=== PATIENT | female | born 1995 | race Caucasian/White ===

== ENCOUNTER 2023-12-13 12:19 | Outpatient (OUT) | payer OTHER, SELFPAY ==
--- NOTE | 2023-12-13 12:23 | US_ITS ---
[address] [address] Patient Name: COLTON VERMA MRN: [id number] date: 1995 Sex: F Assigned Patient Location: [facility] Current Patient Location: [facility] Accession/Order Number: [id number] Exam Date: 12/13/2023 12:25 Report Date: 12/13/2023 13:37 At the request of: WON LESTER Procedure: US OB transvaginal EXAMINATION: US OB transvaginal HISTORY: MISSED MENSES COMPARISON: No relevant comparison available. FINDINGS: GESTATIONAL SAC: Present and normal appearing. YOLK SAC: Present and normal appearing. POLE: Present and normal appearing. CARDIAC: Present. UTERUS: Normal size and appearance. OVARIES: Right: Corpus lutein cyst. Left: Not seen. CERVIX: 4.4 cm in length and closed. CUL-DE-SAC: Normal. OTHER: None. AGE BY LMP: 7 weeks 5 days SINA BY LMP: 07/26/2024 AGE BY US CRL: 7 weeks 0 days SINA BY US CRL: 07/31/2024 US/US OB transvaginal IMPRESSION: 1. Single live intrauterine . Electronically authenticated by: ISIAH ROJAS Date: 12/13/2023 13:37
== END 2023-12-13 12:20 | disposition home or self-care (01) ==
LOC: NOMS 12:20
PROVIDERS: PCP Nurse Practitioner Family; Visit Provider Obstetrics & Gynecology
DX: Z34.91 Encounter for supervision of normal pregnancy, unspecified, first trimester (principal); Z3A.01 Less than 8 weeks gestation of pregnancy; N92.6 Irregular menstruation, unspecified
CPT/HCPCS: 76817

== ENCOUNTER 2023-12-26 12:22 | Outpatient (OUT) | payer OTHER, SELFPAY ==
--- NOTE | 2023-12-26 | US_ITS ---
[address] [address] Patient Name: COLTON VERMA MRN: [id number] date: 1995 Sex: F Assigned Patient Location: [place] Current Patient Location: [place] Accession/Order Number: [id number] Exam Date: 12/26/2023 12:42 Report Date: 12/26/2023 13:45 At the request of: WON LESTER Procedure: US appendix EXAM: US appendix HISTORY: RIGHT PELVIC PAIN COMPARISON: None. TECHNIQUE: Grayscale and color ultrasound FINDINGS: Ultrasound of the right lower quadrant demonstrates normal skin, subcutaneous fat, muscle and intraperitoneal contents. The appendix is not definitively visualized. No ascites. US/US appendix IMPRESSION: Nonvisualization of the appendix Electronically authenticated by: DARLINE ESPITIA Date: 12/26/2023 13:45
--- NOTE | 2023-12-26 12:41 | US_ITS ---
[address] [address] Patient Name: COLTON VERMA MRN: [id number] date: 1995 Sex: F Assigned Patient Location: [place] Current Patient Location: [place] Accession/Order Number: [id number] Exam Date: 12/26/2023 12:42 Report Date: 12/26/2023 13:44 At the request of: WON LESTER Procedure: US OB transvaginal EXAMINATION: US OB transvaginal HISTORY: missed menses N92.6 COMPARISON: 12/13/2023 FINDINGS: Transvaginal images Godoy intrauterine gestation Gestational sac: 3.48 cm, 8 weeks 4 days CRL: 2.44 cm, 9 weeks 1 day Yolk sac: 2.7 mm Heart rate: 182 beats minute Cervix: 3.6 cm in length, closed. The uterus is normal, anteverted The right ovary measures 3.3 x 2.8 x 3.6 cm. Area of anechoic echogenicity likely corpus luteal cyst. The left ovary is normal measuring 1.6 x 1.1 x 2.2 cm Clinical age: 9 weeks 4 days Clinical SINA: 07/26/2024 Ultrasound age: 9 weeks 1 day Ultrasound SINA: 07/29/2024 US/US OB transvaginal IMPRESSION: Viable godoy intrauterine gestation measuring 9 weeks 1 day Electronically authenticated by: DARLINE ESPITIA Date: 12/26/2023 13:44
== END 2023-12-26 12:23 | disposition home or self-care (01) ==
PROVIDERS: PCP Nurse Practitioner Family; Visit Provider Obstetrics & Gynecology
DX: O26.899 Other specified pregnancy related conditions, unspecified trimester (principal); Z3A.09 9 weeks gestation of pregnancy; N92.6 Irregular menstruation, unspecified; R10.9 Unspecified abdominal pain
CPT/HCPCS: 76705; 76817

== ENCOUNTER 2024-01-03 12:21 | Outpatient (OUT) | payer OTHER, SELFPAY ==
--- OUTSIDE RECORDS SUMMARY | 2024-01-03 12:29 | XMS_ITS | CCD ---
Author Organization [facility] Care Team Providers Care Medical Imaging Director Name Role Phone TREVON, DR UPTON Admitting Unavailable MISC, DR DAVENPORT Primary Care Unavailable LACOMBE, DR DARLINE Fitzgerald Consulting Unavailable TREVON, DR UPTON Attending Unavailable TREVON, DR UPTON Consulting Unavailable TREVON, DR UPTON Consulting Unavailable TREVON, DR UPTON Admitting Unavailable TREVON, DR UPTON Attending Unavailable CHEYENNE MOONEY Consulting Unavailable TREVON, DR UPTON Admitting Unavailable TREVON, DR UPTON Attending Unavailable TREVON, DR UPTON Consulting Unavailable TREVON, DR UPTON Admitting Unavailable TREVON, DR UPTON Attending Unavailable TREVON, DR UPTON Consulting Unavailable TREVON, DR UPTON Admitting Unavailable TREVON, DR UPTON Attending Unavailable Lucila Arnett Unavailable Unavailable Primary Care Provider Unavailabl e EARLE CHEN Attending Unavailable LUCILA ARNETT Referring Unavailable LUCILA ARNETT Primary Care Physician KHADRA ARNETT Attending Unava ilable KHADRA ARNETT Admitting Unava ilable YODER, HAKEEM Primary Care Unavailable TREVON, WON Referring Unavailable YODER, HAKEEM Referring Unavailable YODER, HAKEEM Primary Care Unavailable YODER, HAKEEM Primary Care Unavailable TREVON, WON Referring Unavailable YODER, HAKEEM Primary Care Unavailable TREVON, WON Referring Unavailable YODER, HAKEEM Primary Care Unavailable TREVON, WON Referring Unavailable YODER, HAKEEM Primary Care Unavailable TREVON, WON Referring Unavailable YODER, HAKEEM Primary Care Unavailable YEIMY LESTERY Referring Unavailable WON LESTER Attending Unavailable Allergies Allergy Classification Reported Allergen(s) Allergy Type Date of Onset Reaction(s) Facility Opioid Agonists (1 source) traMADol Drug Allergy 0 [facility] Repository (5 sources) traMADol Drug Allergy 4 Unknown, Unknown Reaction [facility] (4 sources) Lavender Oil Drug allergy Unknown [employer] Other (1 source) lavender (Lavandula angustifolia) Allergy to substance 4 Unknown Reaction [facility] Medications Current Medications Medication Drug Class(es) Dates Sig (Normalized) Sig (Original) brompheniramine maleate 0.4 mg/ml / dextromethorphan hydrobromide 2 mg/ml / pseudoephedrine hydrochloride 6 mg/ml oral solution (1 source) alpha-Adrenergic Agonist, Uncompetitive U-xdzwxp-I-aspartate Receptor Antagonist, Sigma-1 Agonist Start: 09-30-2017 take 5 mL by mouth four times daily Bromfed DM oral syrup 5 mL, Oral, QID for cold symptoms, 200 mL, Refill(s) 0 Start Date: 09/30/17 Status: Ordered clonazePAM 0.5 mg oral tablet (6 sources) Benzodiazepine Start: 10-16-2023 take 1 tablet by mouth in the morning, then take 2 tablets by mouth twice daily at bedtime Clonazepam Active 0.5 MG PO .COMPLEX October 16, 2023 1:00am 1 tablet in the am and 2 tablets at bedtime Orally twice daily Start: 05-08-2023 take 1 tablet by bailey th in the morning, then take 2 tablets by mouth twice daily at bedtime clonazePAM 0.5 MG 1 tablet in the am and 2 tablets at bedtime Orally twice daily for 30 days Aug, Active ibuprofen 600 mg oral tablet (1 source) Nonsteroidal Anti-inflammatory Drug Start: 01-27-2019 take 1 tablet by mouth every eight hours ibuprofen 600 mg Tab 600 mg = 1 tab(s), Oral, q8hr, # 20 tab(s), Refills(s) 0 Start Date: 01/27/19 Status: Ordered meloxicam 7.5 mg oral tablet (2 sources) Nonsteroidal Anti-inflammatory Drug Start: 10-24-2023 End: 10-26-2023 take 7.5 mg by mouth once daily Meloxicam Active 7.5 MG PO Daily October 26, 2023 3:24pm methocarbamol 750 mg oral tablet (1 source) Muscle Relaxant Start: 01-27-2019 take 1 tablet by mouth every six hours Robaxin-750 oral tablet 750 mg = 1 tab(s), Oral, q6hr, # 12 tab(s), Refills(s) 0 Start Date: 01/27/19 Status: Ordered ondansetron 4 mg disintegrating oral tablet (1 source) Serotonin-3 Receptor Antagonist Start: 11-02-2023 take 1 tablet by mouth every eight hours as needed Ondansetron 4 MG Tab Dispersible tablet Take 1 tablet by mouth every 8 hours as needed for Nausea / Vomiting. 18 tablet 1 11/02/2023 Active tiZANidine 4 mg oral tablet (6 sources) Central alpha-2 Adrenergic Agonist Start: 08-03-2023 take 4 mg by mouth three times daily Tizanidine Active 4 MG PO Three times daily October 16, 2023 1:00am Start: 08-03-2023 take 1 tablet by bailey th every eight hours tiZANidine HCl 2 MG 1 tablet as needed Orally Three times a day for 30 days Jul, Active Zofran ODT 4 mg Tab-Dis (1 source) Start: 09-21-2018 take 1 tablet by mouth every six hours Zofran ODT 4 mg Tab-Dis 4 mg = 1 tab(s), Oral, q6hr, # 10 tab(s), Refills(s) 0, Pharmacy: [facility] 1984 Start Date: 09/21/18 Status: Ordered Completed/Discontinued Medications Medication Drug Class(es) Dates Sig (Normalized) Sig (Original) {21 (Desogestrel 0.15 MG / Ethinyl Estradiol 0.03 MG Oral Tablet) / 7 (Inert Ingredients 1 MG Oral Tablet) } Pack [Enskyce 28 Day] (1 source) Progestin, Estrogen Start: 09-30-2017 take 1 tablet by mouth once daily Enskyce 0.15 mg-0.03 mg oral tablet 1 tab(s), Oral, Daily, Refill(s) 0 Start Date: 09/30/17 Status: Ordered Problems Active Problems Problem Classification Problem Date Documented Date Episodic/Chronic Abdominal pain (7 sources) Pelvic and perineal pain; Translations: [Pain in pelvis] Onset: 04-30-2020 Episodic Anxiety disorders (20 sources) Generalized anxiety disorder; Translations: [Generalized anxiety disorder] Chronic Asthma (1 source) Asthma 10-31-2013 Chronic Endometriosis (12 sources) Endometriosis (clinical); Translations: [Endometriosis, unspecified] Onset: 11-02-2023 Chronic Esophageal disorders (1 source) Gastro-esophageal reflux disease without esophagitis; Translations: [GERD WITHOUT ESOPHAGITIS] Onset: 08-02-2020 Chronic Genitourinary symptoms and ill-defined conditions (1 source) Bladder pain; Translations: [Other symptoms and signs involving the genitourinary system] 11-02-2023 Episodic Headache; including migraine (7 sources) Migraine; Translations: [Migraine, unspecified, not intractable, without status migrainosus] Chronic Hemorrhage during ; abruptio placenta; placenta previa (1 source) Placental abruption 09-30-2017 Episodic Intracranial injury (4 sources) Personal history of traumatic brain injury; Translations: [Traumatic brain injury] Episodic Menstrual disorders (2 sources) Dysmenorrhea; Translations: [Dysmenorrhea, unspecified] Onset: 12-06-2023 11-02-2023 Chronic Mood disorders (3 sources) Depressive disorder; Translations: [Depression] 10-16-2023 Chronic Nausea and vomiting (1 source) Nausea and vomiting; Translations: [Nausea with vomiting, unspecified] 11-02-2023 Episodic Other connective tissue disease (1 source) Myalgia of pelvic floor; Translations: [Myalgia, other site] 11-02-2023 Episodic Other female genital disorders (4 sources) Unspecified dyspareunia; Translations: [UNSPECIFIED DYSPAREUNIA] Onset: 06-25-2020 Chronic Other female genital disorders (1 source) Pain in female genitalia on intercourse; Translations: [Unspecified dyspareunia] 11-02-2023 Chronic Residual codes; unclassified (1 source) Personal history of other complications of , childbirth and the puerperium; Translations: [Personal history of other complications of , childbirth and the puerperium] Onset: 12-06-2023 Episodic Unclassified (1 source) Details of family - finding 05-29-2014 Unclassified (1 source) labor 06-08-2014 Past or Other Problems Problem Classification Problem Date Documented Date Episodic/Chronic Deficiency and other anemia (1 source) Anemia, unspecified; Translations: [ANEMIA UNSPECIFIED] Onset: 08-02-2020 Episodic Immunizations and screening for infectious disease (1 source) Encounter for screening for human papillomavirus (HPV); Translations: [ENC SCREENING HUMAN PAPILLOMAVIRUS] Onset: 05-05-2020 Episodic Other female genital disorders (1 source) Unspecified hypertrophy of vulva; Translations: [UNSPECIFIED HYPERTROPHY OF VULVA] Onset: 08-02-2020 Episodic Other screening for suspected conditions (not mental disorders or infectious disease) (4 sources) Encounter for screening for malignant neoplasm of cervix; Translations: [ENC SCREENING MALIG NEOPLASM CERV] Onset: 04-29-2020 Episodic Residual codes; unclassified (4 sources) Other general symptoms and signs; Translations: [OTHER GENERAL SYMPTOMS AND SIGNS] Onset: 07-12-2020 Episodic Unclassified (1 source) Onset: 08-20-2013 Resolved: 06-08-2014 02-25-2015 Results Test Name Value Interpretation Reference Range Facility HCG.beta subunit Qnon 2023 hCG Quant [id number] mIU/mL Normal [facility] Comment on above: Order Comment: Pregn phill Reference Ranges Negative = < 5 mIU/ml Positive = > OR EQUAL TO 5 mIU/ml The concentration of HCG rises rapidly during early . A maximum level of 5,000 to 200,000 mIU/ML is reached at 6-8 weeks. This is followed by a slow decline to levels of 1,000 to 50,000 mIU/ML during the third trimester. This test should be used only for the diagnosis and monitoring of . It should not be used for monitoring of neoplastic conditions including gestational trophoblastic disease (partial mole, complete hydatidiform mole, choriocarcinoma) or other tumors. For monitoring of neoplastic disease a Beta subunit HCG test should be ordered. Results obtained using different immunoassay methods are not interchangeable. Patient results should not be trended using values obtained with a different immunoassay method. Performed By: #### 2 1198-7 #### [facility] ([facility]) LAB [address] [place] [address] HCG.beta subunit Qnon 2023 hCG Quant 94570 mIU/mL Normal [facility] Comment on above: Order Comment: Pregn phill Reference Ranges Negative = < 5 mIU/ml Positive = > OR EQUAL TO 5 mIU/ml The concentration of HCG rises rapidly during early . A maximum level of 5,000 to 200,000 mIU/ML is reached at 6-8 weeks. This is followed by a slow decline to levels of 1,000 to 50,000 mIU/ML during the third trimester. This test should be used only for the diagnosis and monitoring of . It should not be used for monitoring of neoplastic conditions including gestational trophoblastic disease (partial mole, complete hydatidiform mole, choriocarcinoma) or other tumors. For monitoring of neoplastic disease a Beta subunit HCG test should be ordered. Results obtained using different immunoassay methods are not interchangeable. Patient results should not be trended using values obtained with a different immunoassay method. Performed By: #### 2 1198-7 #### [facility] ([facility]) [facility] [address] [place] [address] HCG.beta subunit Qnon 2023 hCG Quant 75748 mIU/mL Normal [facility] Comment on above: Order Comment: Pregn phill Reference Ranges Negative = < 5 mIU/ml Positive = > OR EQUAL TO 5 mIU/ml The concentration of HCG rises rapidly during early . A maximum level of 5,000 to 200,000 mIU/ML is reached at 6-8 weeks. This is followed by a slow decline to levels of 1,000 to 50,000 mIU/ML during the third trimester. This test should be used only for the diagnosis and monitoring of . It should not be used for monitoring of neoplastic conditions including gestational trophoblastic disease (partial mole, complete hydatidiform mole, choriocarcinoma) or other tumors. For monitoring of neoplastic disease a Beta subunit HCG test should be ordered. Results obtained using different immunoassay methods are not interchangeable. Patient results should not be trended using values obtained with a different immunoassay method. Performed By: #### 2 1198-7 #### [facility] ([facility]) [facility] [address] [place] [address] HCG.beta subunit Qnon 2023 hCG Quant 64627 mIU/mL Normal [facility] Comment on above: Order Comment: Pregn phill Reference Ranges Negative = < 5 mIU/ml Positive = > OR EQUAL TO 5 mIU/ml The concentration of HCG rises rapidly during early . A maximum level of 5,000 to 200,000 mIU/ML is reached at 6-8 weeks. This is followed by a slow decline to levels of 1,000 to 50,000 mIU/ML during the third trimester. This test should be used only for the diagnosis and monitoring of . It should not be used for monitoring of neoplastic conditions including gestational trophoblastic disease (partial mole, complete hydatidiform mole, choriocarcinoma) or other tumors. For monitoring of neoplastic disease a Beta subunit HCG test should be ordered. Results obtained using different immunoassay methods are not interchangeable. Patient results should not be trended using values obtained with a different immunoassay method. Performed By: #### 2 1198-7 #### [facility] ([facility]) [facility] [address] [place] [address] HCG.beta subunit Qnon 2023 hCG Quant 2709 mIU/mL Normal [facility] Comment on above: Order Comment: Pregn phill Reference Ranges Negative = < 5 mIU/ml Positive = > OR EQUAL TO 5 mIU/ml The concentration of HCG rises rapidly during early . A maximum level of 5,000 to 200,000 mIU/ML is reached at 6-8 weeks. This is followed by a slow decline to levels of 1,000 to 50,000 mIU/ML during the third trimester. This test should be used only for the diagnosis and monitoring of . It should not be used for monitoring of neoplastic conditions including gestational trophoblastic disease (partial mole, complete hydatidiform mole, choriocarcinoma) or other tumors. For monitoring of neoplastic disease a Beta subunit HCG test should be ordered. Results obtained using different immunoassay methods are not interchangeable. Patient results should not be trended using values obtained with a different immunoassay method. Performed By: #### 2 1198-7 #### [facility] ([facility]) [facility] [address] [place] [address] HCG.beta subunit Qnon 2023 hCG Quant 776 mIU/mL Normal [facility] Comment on above: Order Comment: Pregn phill Reference Ranges Negative = < 5 mIU/ml Positive = > OR EQUAL TO 5 mIU/ml The concentration of HCG rises rapidly during early . A maximum level of 5,000 to 200,000 mIU/ML is reached at 6-8 weeks. This is followed by a slow decline to levels of 1,000 to 50,000 mIU/ML during the third trimester. This test should be used only for the diagnosis and monitoring of . It should not be used for monitoring of neoplastic conditions including gestational trophoblastic disease (partial mole, complete hydatidiform mole, choriocarcinoma) or other tumors. For monitoring of neoplastic disease a Beta subunit HCG test should be ordered. Results obtained using different immunoassay methods are not interchangeable. Patient results should not be trended using values obtained with a different immunoassay method. Performed By: #### 2 1198-7 #### [facility] ([facility]) [facility] [address] [place] [address] HCG.beta subunit Qnon 2023 hCG Quant 250 mIU/mL Normal [facility] Comment on above: Order Comment: Pregn phill Reference Ranges Negative = < 5 mIU/ml Positive = > OR EQUAL TO 5 mIU/ml The concentration of HCG rises rapidly during early . A maximum level of 5,000 to 200,000 mIU/ML is reached at 6-8 weeks. This is followed by a slow decline to levels of 1,000 to 50,000 mIU/ML during the third trimester. This test should be used only for the diagnosis and monitoring of . It should not be used for monitoring of neoplastic conditions including gestational trophoblastic disease (partial mole, complete hydatidiform mole, choriocarcinoma) or other tumors. For monitoring of neoplastic disease a Beta subunit HCG test should be ordered. Results obtained using different immunoassay methods are not interchangeable. Patient results should not be trended using values obtained with a different immunoassay method. Performed By: #### 2 1198-7 #### [facility] [address] [place] [address] .Thyroglobulin by IMAon -0 Thyroglobulin [Mass/Vol] 5.0 ng/mL Invalid Interpretation Code 1.5-38.5 [facility] Comment on above: Result Comment: Acco rding to the National Academy of Clinical [employer]ochemistry, the reference interval for Thyroglobulin (TG) should be related to euthyroid patients and not for patients who underwent thyroidectomy. TG reference intervals for these patients depend on the residual mass of the thyroid tissue left after surgery. Establishing a post-operative baseline is recommended. The assay limit of quantitation is 0.1 ng/mL Thyroglobulin measured by John [employer] Immunometric Assay Performed at: [facility] [id number] [place], [place] [id number] PhD Johanny Nieto Performed By: #### 2 [id number], [id number], [id number], [id number], [id number], [id number], [id number] #### [facility] [address] [place] [address] T3 Freeon 11-20-2023 Free T3 [Mass/Vol] 3.2 pg/mL Invalid Interpretation Code 2.0-4.4 [facility] Comment on above: Result Comment: Perf ormed at: [address] [id number] PhD Johanny Nieto Performed By: #### 2 982924, [id number], [id number], [id number], [id number], [id number], [id number] #### [facility] [address] [place] [address] TgAb+Thyroglobulinon 024 Thyroglobulin Ab Qn [IU]/mL Invalid Interpretation Code 0.0-0.9 [facility] Comment on above: Result Comment: Thyr oglobulin Antibody measured by [employer] It should be noted that the presence of thyroglobulin antibodies may not be pathogenic nor diagnostic, especially at very low levels. The assay astronautical engineer has found that four percent of individuals without evidence of thyroid disease or autoimmunity will have positive TgAb levels up to 4 IU/mL. Performed at: [facility] [address] [place] [address] [id number] PhD Johanny Nieto Performed By: #### 2 117835, [id number], [id number], [id number], [id number], [id number], [id number] #### [facility] [address] [place] [address] Thyroid Perox.tpo Abon 11-19 TPO Ab Qn [IU]/mL Invalid Interpretation Code 0-34 [facility] Comment on above: Result Comment: Perf ormed at: [facility] [address] [id number] PhD Johanny Nieto Performed By: #### 2 589964, [id number], [id number], [id number], [id number], [id number], [id number] #### [facility] [address] [place] [address] BhCG Quanton 11-19-2023 HCG.beta subunit Qn 86 m[IU]/mL High 1-[address] [facility] Comment on above: Result Comment: 'F N ON < 1 - 3' ' 0.2 - 1 WEEK = 5 TO 50' ' 1 - 2 WEEKS = 50 - 500' ' 2 - 3 WEEKS = 100 - 5000' ' 3 - 4 WEEKS = 500 - 35740' ' 4 - 5 WEEKS = 1000 - 98119' ' 5 - 6 WEEKS = 49403 - 490377' ' 6 - 8 WEEKS = 95717 - 904503' ' 8 - 12 WEEKS = 62843 - 223846' Performed By: #### 2 [id number] #### [facility] [address] [place] [address] CHEMISTRYOrdered By: SYSTEM SYSTEM on 11-19-2023 HCG.beta subunit Qn 86 m[IU]/mL High 1 - 3 mIU/mL Re misol Chem Comment on above: Result Comment: 'F N ON < 1 - 3' ' 0.2 - 1 WEEK = 5 TO 50' ' 1 - 2 WEEKS = 50 - 500' ' 2 - 3 WEEKS = 100 - 5000' ' 3 - 4 WEEKS = 500 - 94328' ' 4 - 5 WEEKS = 1000 - 50322' ' 5 - 6 WEEKS = 99669 - 583890' ' 6 - 8 WEEKS = 79406 - 525236' ' 8 - 12 WEEKS = 72543 - 525237' Iron [Mass/Vol] 161 ug/dL High 35 - 153 mcg/dL Remisol Chem Iron binding capacity [Mass/Vol] 316 ug/dL Normal 250 - 400 mcg/dL Remisol Chem Transferrin [Mass/Vol] 226 mg/dL Normal 200 - 370 mg/dL Remisol Chem TSH Qn 1.53 m[IU]/L Normal 0.34 - 5.60 mcIU/mL Remisol Chem Consent for Treatmenton Consent for Treatment [id number] .[id number] Normal [facility] Ironon 11-19-2023 Iron [Mass/Vol] 161 microgram/dL High 35-153 [facility] Comment on above: Performed By: #### 2 174245, [id number], [id number], [id number], [id number], [id number], [id number] #### [facility] [address] [place] [address] Physician Orderon 11-19-2023 Physician Order [id number] .[id number] Normal [facility] TIBC Calculatedon 11-19-2023 Iron binding capacity [Mass/Vol] 316 microgram/dL Normal 250-400 [facility] Comment on above: Performed By: #### 2 761539, [id number], [id number], 1334435, [id number], [id number], [id number] #### [facility] [address] [place] [address] Transferrin [Mass/Vol] 226 mg/dL Normal 200-370 [facility] Comment on above: Performed By: #### 2 805505, [id number], [id number], 9434118, [id number], [id number], [id number] #### [facility] [address] [place] [address] TSH With T4fr Reflexon 11-18 TSH Qn 1.53 m[IU]/L Normal 0.34-5.60 [facility] Comment on above: Performed By: #### 2 853088, [id number], 11330676, 9732720, [id number], [id number], [id number] #### [facility] [address] [facility] [place] [address] TSHon 07-12-2020 TSH 0.756 uIU/mL Normal 0.470-4.680 [facility] Comment on above: Performed By: #### T SH #### [facility] [address] [id number] Jayne Noris TSH RANGE SEE BELOW Normal [facility] Comment on above: Result Comment: <0.3 4 UIU/ml HYPERTHYROID 0.34-5.60 UIU/ml EUTHYROID >5.60 UIU/ml HYPOTHYROID Performed By: #### T SH #### [facility] [address] [place], [place] [address] Jayne Noris CBC AUTO DIFFon 06-25-2020 BASO # 0.1 103/ul Normal 0.0-0.1 [facility] Comment on above: Performed By: #### C BC #### [facility] [address] [place], [place] [address] Jayne Noris Basophils/100 WBC (Bld) 1.2 % Normal 0.2-2.0 [facility] Comment on above: Performed By: #### C BC #### [facility] [address] [place], [place] [address] Jayne Noris EO # 0.2 103/ul Normal 0.0-0.7 [facility] Comment on above: Performed By: #### C BC #### [facility] [address] [place], [place] [address] Jayne Noris Eosinophils/100 WBC (Bld) 2.6 % Normal 0.9-7.0 [facility] Comment on above: Performed By: #### C BC #### [facility] [address] [place], [place] [address] Jayne Noris Erythrocyte distribution width (RBC) [Ratio] 12.0 % Normal 11.0-15.0 [facility] Comment on above: Performed By: #### C BC #### [facility] [address] [place], [place] [address] Jayne Noris Hematocrit (Bld) [Volume fraction] 40.7 % Normal 36.0-48.0 [facility] Comment on above: Performed By: #### C BC #### [facility] [address] [id number] Jayne Noris Hemoglobin (Bld) [Mass/Vol] 13.6 g/dL Normal 12.0-16.0 [facility] Comment on above: Performed By: #### C BC #### [facility] [address] [id number] Jayne Noris IG # 0.01 10e3/ul Normal 0.00-0.03 [facility] Comment on above: Performed By: #### C BC #### [facility] [address] [place] [address] Jayne Noris IG % 0.2 % Normal 0.0-0.5 [facility] Comment on above: Performed By: #### C BC #### [facility] [address] [place] [address] Jayne Noris LYMPH # 1.9 103/ul Normal 1.2-3.8 [facility] Comment on above: Performed By: #### C BC #### [facility] [address] [place] [address] Jayne Noris Lymphocytes/100 WBC (Bld) 32.5 % Normal 20.5-60.0 [facility] Comment on above: Performed By: #### C BC #### [facility] [address] [place] [address] Jayne Noris MANUAL DIFF REQ NO Normal [facility] Comment on above: Performed By: #### C BC #### [facility] [address] [place], [place] [id number] Jayne Noris MCH (RBC) [Entitic mass] 31.3 pg Normal 26.7-34.0 [facility] Comment on above: Performed By: #### C BC #### [facility] [address] [place], [place] [id number] Jayne Noris MCHC (RBC) [Mass/Vol] 33.4 g/dL Normal 29.9-35.2 [facility] Comment on above: Performed By: #### C BC #### [facility] [address] [id number] Jaynejeremías Cruzen MCV (RBC) [Entitic vol] 93.6 fL Normal 81.0-99.0 [facility] Comment on above: Performed By: #### C BC #### [facility] [address] [id number] Jaynejeremías Cruzen MONO # 0.6 103/ul Normal 0.3-0.8 [facility] Comment on above: Performed By: #### C BC #### [facility] [address] [place], [place] [id number] Jayne Noris Monocytes/100 WBC (Bld) 10.4 % Normal 1.7-12.0 [facility] Comment on above: Performed By: #### C BC #### [facility] [address] [place] [address] Jayne Noris NEUT # 3.1 103/ul Normal 1.4-6.5 [facility] Comment on above: Performed By: #### C BC #### [facility] [address] [place], [place] [id number] Jayne Hamm Neutrophils/100 WBC (Bld) 53.1 % Normal 43.0-75.0 [facility] Comment on above: Performed By: #### C BC #### [facility] [address] [place], [place] [id number] Jaynejeremías Hamm Platelet mean volume (Bld) [Entitic vol] 8.9 fL Critically low 9.5-13.5 [facility] Comment on above: Performed By: #### C BC #### [facility] [address] [place], [place] [address] Jayne Noris PLT 265 103/ul Normal 150-450 [facility] Comment on above: Performed By: #### C BC #### [facility] [address] [place], [place] [address] Jayne Noris RBC 4.35 106/ul Normal 4.20-5.40 [facility] Comment on above: Performed By: #### C BC #### [facility] [address] [place], [place] [address] Jayne Noris WBC 5.8 103/ul Normal 4.0-11.0 [facility] Comment on above: Performed By: #### C BC #### [facility] [address] [place] [address] Jayne Hamm PREG QUANT HCGon 06-25-2020 HCG QUANT 1.00 mIU/mL Normal [facility] Comment on above: Performed By: #### P REGQNT #### [facility] [address] [place] [address] Jayne Hamm HCG RANGE SEE BELOW [facility] Comment on above: Result Comment: 5-50 0-1 WEEK 40-300 1-2 WEEKS 100-1,000 2-3 WEEKS 500-6,000 3-4 WEEKS 5,000-200,000 1-2 MONTHS 10,000-100,000 2-3 MONTHS 3,000-50,000 2ND TRIMESTER 1,000-50,000 3RD TRIMESTER Performed By: #### P REGQNT #### [facility] [address] [place] [address] Jayne Hamm PAP ACOG PANEL 2: 21 to 29on 05-06-2020 . . Normal [facility] Comment on above: Performed By: #### 4 [id number] #### [facility] [address] [place] [address] aJyne Hamm Age Gdln ACOG Testing - [facility] Comment on above: Performed By: #### 4 [id number] #### [facility] [address] [place] [address] Jayne Hamm DIAGNOSIS: Comment Normal [facility] Comment on above: Result Comment: NEGA TIVE FOR INTRAEPITHELIAL LESION OR MALIGNANCY. Performed By: #### [id number] #### [facility] [address] [place] [address] Jayne Hamm Methodology: Comment Normal [facility] Comment on above: Result Comment: This liquid based SurePath(R) pap test was screened with the assistance of an image guided system. Performed By: #### [id number] #### [facility] [address] [place] [address] Jayne Hamm Note: Comment Normal [facility] Comment on above: Result Comment: The Pap smear is a screening test designed to aid in the detection of premalignant and malignant conditions of the uterine cervix. It is not a diagnostic procedure and should not be used as the sole means of detecting cervical cancer. Both false-positive and false-negative reports do occur. . Performed By: #### 4 [id number] #### [facility] [address] [place] [address] Jayne Cruzen Performed by: Comment Normal [facility] Comment on above: Result Comment: Suman Rdz, Principal Examiner (ASCP) Performed By: #### 4 [id number] #### [facility] [address] [place] [address] [facility] Comment Normal [facility] Comment on above: Result Comment: The HPV DNA reflex criteria were not met with this specimen result therefore, no HPV testing was performed. . Performed By: #### [id number] #### [facility] [address] [place] [address] Noris Specimen adequacy: Comment Normal [facility] Comment on above: Result Comment: Sati sfactory for evaluation. Endocervical and/or squamous metaplastic cells (endocervical component) are present. Performed By: #### 4 [id number] #### [facility] [address] [place] [address] Jayne Cruzen US PELVIS AND TRANSVAGon US PELVIS AND TRANSVAG EXAMINATION: US PELVIS AND TRANSVAG HISTORY: Pelvic and perineal pain COMPARISON: No relevant comparison available. FINDINGS: Transabdominal and transvaginal images The uterus is retroverted. 8.6 x 5.9 x 5.4 cm. No focal myometrial mass. The endometrium measures 4.5 mm, normal. The right ovary is normal in size, contour and echotexture measuring 2.7 x 3.0 x 3.5 cm. Normal follicles. Identified in the right ovary is an area of anechoic echogenicity measuring 2.0 x 2.2 x 2.0 cm, a simple cyst is favored. The left ovary measures 3.9 x 2.1 x 1.3 cm. Normal follicles. Multiple dilated vessels are identified bilaterally IMPRESSION: Bilaterally dilated vessels, consider pelvic vascular congestion Electronically authenticated by: DARLINE ESPITIA Date: 2020-04-30 14:54 Normal [facility] Vital Signs Date Time Vital Sign Value Performing Clinician Facility 11-02-2023 14:27-0400 Body height 180.3 cm Earle Chen MD Work Phone: [facility] 11-02-2023 14:27-0400 Body mass index (BMI) [Ratio] 20.04 kg/m2 Earle Chen MD Work Phone: [facility] 11-02-2023 14:27-040 Body weight 65.18 kg Earle Chen MD Work Phone: [facility] 11-02-2023 14:27-0400 Diastolic blood pressure 80 mm[Hg] Earle Chen MD Work Phone: [facility] 11-02-2023 14:27-0400 Systolic blood pressure 110 mm[Hg] Earle Chen MD Work Phone: [facility] 09-14-2023 11:30-0500 Body height 180.34 cm Lucila Arnett Other [facility] 09-14-2023 11:30-0500 Body mass index (BMI) [Ratio] 20.92 kg/m2 Lucila Arnett Other [facility] [facility] Other 09-14-2023 11:30-0500 Body weight 68.04 kg Lucila Arnett Other [facility] Other 09-14-2023 11:30-0500 Body weight 68.03 kg [facility] 09-14-2023 11:30-0500 Diastolic blood pressure 68 mm[Hg] Lucila Arnett Other [facility] 09-14-2023 11:30-0500 Respiratory rate 16 /min Lucila Arnett Other [employer] Other 09-14-2023 11:30-0500 SaO2% (BldA) [Mass fraction] 100 % Lucila Arnett Other [employer] Other 09-14-2023 11:30-0500 Systolic blood pressure 110 mm[Hg] Lucila Arnett Other [facility] 08-03-2023 10:00-0500 Body height 180.34 cm Lucila Arnett Other [employer] Other 08-03-2023 10:00-0500 Body mass index (BMI) [Ratio] 20.78 kg/m2 Lucila Arnett Other [employer] Other 08-03-2023 10:00-0500 Body weight 67.59 kg Lucila Arnett Other [employer] Other 08-03-2023 10:00-0500 Diastolic blood pressure 66 mm[Hg] Lucila Arnett Other [employer] Other 08-03-2023 10:00-0500 SaO2% (BldA) [Mass fraction] 98 % Lucila Arnett Other [employer] Other 08-03-2023 10:00-0500 Systolic blood pressure 100 mm[Hg] Lucila Arnett Other [employer] Other Encounters Encounter Date Encounter Type Care Provider Facility Start: 12-26-2023 End: 12-26-2023 ambulatory WON LESTER Not Available Start: 12-13-2023 End: 12-13-2023 ambulatory WON LESTER Not Available Start: 12-10-2023 End: 12-11-2023 ambulatory HAKEEM YODER [facility] Start: 12-06-2023 End: 12-07-2023 ambulatory HAKEEM YODER [facility] Start: 12-03-2023 End: 12-04-2023 ambulatory HAKEEM YODER [facility] Start: 11-29-2023 End: 11-30-2023 ambulatory HAKEEM YODER [facility] Start: 11-26-2023 End: 11-27-2023 ambulatory HAKEEM YODER [facility] Start: 11-23-2023 End: 11-24-2023 ambulatory HAKEEM YODER [facility] Start: 11-21-2023 End: 11-22-2023 ambulatory HAKEEM YODER [facility] Start: 11-19-2023 End: 11-20-2023 ambulatory [employer] LUCILA ARNETT [facility] Start: 11-19-2023 End: 11-19-2023 Patient encounter procedure LUCILA ARNETT [facility] Start: 11-14-2023 End: 11-14-2023 ambulatory [facility] Work Phone: Start: 11-14-2023 End: 11-14-2023 Patient encounter procedure [facility] Work Phone: Start: 11-02-2023 ambulatory EARLE CHEN Facility:[facility] Start: 11-02-2023 End: 11-02-2023 Office outpatient new 60 minutes Earle Chen MD Work Phone: [facility] [place] Comment on above: Endometriosis (Prima ry Dx); Pelvic pain; Myalgia of pelvic floor; Dysmenorrhea; Dyspareunia in female; Nausea and vomiting, unspecified vomiting type; Bladder pain; Anxiety Start: 10-17-2023 End: 10-17-2023 Patient encounter procedure [facility] Work Phone: Start: 09-14-2023 End: 09-14-2023 ambulatory Lucila Arnett Other [employer] Other Start: 09-14-2023 Office outpatient vi sit 25 minutes Lucila Arnett [facility] Start: 09-14-2023 End: 09-14-2023 Patient encounter procedure [facility] Start: 08-09-2023 End: 08-09-2023 ambulatory Lucila Arnett Other [employer] Other Start: 08-09-2023 Telephone encounter Lucila Dan her [facility] Start: 08-03-2023 End: 08-03-2023 ambulatory Lucila Arnett Other [employer] Other Start: 08-03-2023 Office outpatient ne w 30 minutes Luicla Arnett [facility] Start: 08-03-2023 Telephone encounter Lucila Dan her [employer] Start: 07-12-2020 End: 07-13-[address] WON LESTER Facility:[facility] Start: 06-25-2020 End: 06-25-[address] WON LESTER Facility:[facility] Start: 04-30-2020 End: 05-01-[address] WON LESTER Facility:[facility] Start: 04-29-2020 End: 04-29-[address] WON LESTER Facility:[facility] Procedures Date Procedure Procedure Detail Performing Clinician Start: 08-20-2004 Tooth extraction MADI ARNETT uterine ablation LUCILA BAH Plan of Treatment Date Care Activity Detail Author Start: 11-02-2023 End: 11-01-2024 MR Pelvis WO and W contrast IV MRI PELVIS WITH AND WITHOUT CONTRAST Imaging Routine Endometriosis Pelvic pain Expected: 11/02/2023, Expires: 11/01/2024 [facility] Comment on above: Expected: 11/02/2023 , Expires: 11/01/2024 Start: 10-17-2023 Patient referral [facility] Work Phone: Start: 04-20-2023 COVID-19 VACCINE ( season) COVID-19 VACCINE ( season) [facility] Start: 04-20-2023 Influenza vaccination INFLUENZA VACC INE (#1) [facility] Start: 2017 Screening for malign ant neoplasm of cervix CERVICAL CANCER SCREENING DISCUSSION [facility] Start: 11-08-2015 Hepatitis B vaccination HEP B VACCINE (1 of 3 - 19+ 3-dose series) [facility] Start: 11-08-2015 Third diphtheria, te tanus and acellular pertussis (DTaP) vaccination TDAP (ADULT) [facility] Start: 2012 Screening for Chlamy david trachomatis CHLAMYDIA SCREEN [facility] Start: 11-08-2011 HIV screening HIV SCREENING DISCUSSION [facility] Start: 11-08-2011 Vaccination for kale n papillomavirus HPV VACCINE ADOL (1 - 3-dose series) [facility] Start: 1996 Hepatitis C screening HEPATITI S C VIRUS SCREENING [facility] Start: 1996 Screening for Chlamy david trachomatis GONORRHEA SCREEN [facility] Start: 1996 Tetanus vaccination TETANUS [facility] Patient referral [facility] Work Phone: Payers Date Payer Category Payer [employer] [id number] 2023 [employer] [facility] [id number] 2023-Present [address] [place] [address] [id number] 2023 [employer] others) [id number] 1996 Unknown [id number] 2.16.840.1.389022.3.579.2. 593 1996 Unknown [id number] 2.16.840.1.505536.3.579.2. 593 1996 Unknown [id number] 2.16.840.1.112152.3.579.2. 593 1996 Unknown [id number] 2.16.840.1.131325.3.579.2. 593 1996 Unknown [id number] 2.16.840.1.859230.3.579.2. 593 1996 Unknown [id number] 2.16.840.1.613728.3.579.2. 594 1996 Unknown [id number] 2.16.840.1.798399.3.579.2. 727 1996 Unknown [id number] 2.16.840.1.981548.3.579.2. 1143 1996 Unknown [id number] 2.16.840.1.342264.3.579.2. 1143 1996 Unknown [id number] 2.16.840.1.340101.3.579.2. 1143 1996 Unknown [id number] 2.16.840.1.361133.3.579.2. 1143 1996 Unknown [id number] 2.16.840.1.388478.3.579.2. 1143 1996 Unknown [id number] 2.16.840.1.777371.3.579.2. 1143 1996 Unknown [id number] 2.16.840.1.323103.3.579.2. 1143 1996 Unknown [id number] 2.16.840.1.998179.3.579.2. 1259 1996 Unknown [id number] 2.16.840.1.179187.3.579.2. 1259 1959 [employer] others) [id number] 1959 [employer] others) [id number] [employer] others) [id number] Social History Date Type Detail Facility Start: 11-02-2023 Sex Assigned At F [facility] Start: 09-30-2017 End: 11-02-2023 Tobacco smoking status NHIS Never smoked tobacco [facility] Start: 11-02-2023 Tobacco use and exposure Smokeless tobacco non-user [facility] Start: 11-02-2023 Alcoholic beverage intake Lifetime non-drinker (finding) [facility] Start: 11-02-2023 History of Social function [facility] Start: 1996 Sex assigned at Not on file [facility] Start: 1996 Sex Assigned At Female F [facility] Clinical Notes 06-25-2020 to 11-19-2023 Earle Chen MD - 11/02/2023 2:30 PM EDT Note Date & Type Note Facility 11-19-2023 Evaluation + Plan note Diagnostic Tests PendingT3 Free 11/19/23Thyroid Perox.tpo Ab 11/19/23TgAb+Thyroglobulin,CHING or ARLEN 11/19/23 [facility] 11-02-2023 History of Present illness Narrative GYNECOLOGY CONSULT NOTE REASON FOR VISIT Endometriosis Pelvic pain HISTORY OF PRESENT ILLNESS Ms. Medrano is a 27 y.o. (NSVDx2) who presents for consultation regarding endometriosis, pelvic pain. Records review: Moved back from [place] to [place] (2021) First diagnosed in 2017 Has had 2 surgical procedures for Stage 4 endometriosis Takes flexeril, tizanidine Trying to get History of migraines, TBI - on aimovig Seem cycle related Other dx: ARIN, PTSD, OCD Wants to get again First c/b placental abruption, Had a SAB in 2021 for 4 years Has had an HSG - one tube is blocked History of Present Illness The patient is a 27-year-old female who presents for evaluation of multiple medical concerns. She has a significant history of endometriosis. She had a couple of lap surgeries in 2018 and 2022. She had a lot of issues with her stomach in the 8th grade. She saw a lot of different doctors, but nobody could ever figure it out. She did not start her period until she was 17. She got with her son at 18. She still complained that her stomach hurts, but during , it did not really bother her as much. She ended up having a placental abruption with her son. She had him 8 weeks early. He was a NICU baby. Her first endometriosis surgery was in 2018. She only had 6 weeks of relief after the surgery. She tried to get her medical records in [place], but they would not send them. She was told she had endometriosis. They did a dye in her tubes. Her left tube was blocked. It was all over her ovaries and posterior cul-de-sac. Second surgery was in 2021. It gave her relief until 08/2023. In 04/2023, they gave her an injection into her cervix because it was extremely painful with intercourse. She had to go back to her doctor because she had heavy bleeding. She had surgery a few months before. She can not use tampons. She cannot really have IC because of pain - maybe once a month She is stressed about her relationship Hormonal management She was given a progesterone only control pill. It did stop her period. She did try the Lupron shot for 1 month once. In mid 12/2023, she got a 3-month Lupron shot. She was supposed to get it in 03/2024, but she did not. Has had care for fertility with a few doctors. Was doing nightly vaginal progesterone. One person was doing regular pelvic ultrasounds to assess ovulation and then telling her to do timed intercourse (however the ultrasounds flared up pelvic pain so she was not able to) She has had 2 endocrinologists turned her away saying that they can not do anything for her. She had a women's health doctor in [facility] who told her she had stage IV endometriosis. She is no longer on the progesterone. Has tried vaginal valium does not help Her 2 previous pregnancies were with a previous partner. She and her are trying for another now. No BA in [place] Partner has not had a SA yet Very poor quality of life If it is hot outside, it makes her sick. She starts vomiting after showering because hot water triggers more pain. 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 She has to stand a lot at work or bends over a lot. She is nauseous 12/03. Pain symptoms It hurts on both sides, but more intense on the right side. It goes up her ovary and up her side, underneath her ribs, and shoots down her legs. She is actively vomiting. She can not stand or walk a lot. On a normal day, it feels like someone is ripping her apart, stabbing her, and lighting her on fire. It hurts all the way in the front in the lower part of her back, and it shoots down her legs. She has been off for a short-term disability through her employer. She started having a huge flareup on Sunday. She was waddling around. She could not stand. She was not sleeping because of the pain. She was hopeful to go back to work on Sunday. Yesterday morning, she woke up with immense pain. The muscle relaxer is not doing anything at all. She currently has her period. When she is on her period, she can not move. She can not vacuum her house without being in pain. She has pain with urination She has done pelvic floor physical therapy. She left in more pain than she showed up in. She has pain with urination or bowel movement. She has a lot of pressure whenever she goes to the bathroom. Her mother and grandmother had endometriosis. No LMP recorded. OB History 3 Para 2 Term 1 1 AB 1 Living 2 SAB 1 IAB Ectopic Molar Multiple Live Births Past Medical History: Diagnosis Date Adenomyosis Adhesions due to endometriosis Brain injury Depression OCD (obsessive compulsive disorder) PTSD (post-traumatic stress disorder) No past medical history pertinent negatives. Past Surgical History: Procedure Laterality Date LAPAROTOMY EXPLORATORY No past surgical history pertinent negatives on file. Allergies and current medications were reviewed and updated as appropriate. REVIEW OF SYSTEMS All systems reviewed and are negative except as noted in the history of present illness. PHYSICAL EXAM General: Alert, cooperative, NAD ASSESSMENT AND PLAN: ICD-10-CM 1. Endometriosis N80.9 MRI PELVIS WITH AND WITHOUT CONTRAST 2. Pelvic pain R10.2 MRI PELVIS WITH AND WITHOUT CONTRAST AMB REFERRAL TO UROGYNECOLOGY AMB REFERRAL TO [facility] AMB REFERRAL TO PSYCHOLOGY 3. Myalgia of pelvic floor M79.18 AMB REFERRAL TO UROGYNECOLOGY 4. Dysmenorrhea N94.6 5. Dyspareunia in female N94.10 6. Nausea and vomiting, unspecified vomiting type R11.2 AMB REFERRAL TO [facility] 7. Bladder pain R39.89 AMB REFERRAL TO UROGYNECOLOGY 8. Anxiety F41.9 AMB REFERRAL TO PSYCHOLOGY History of reported Stage 4 endometriosis Operative note requested MRI pelvis If L fallopian tube is not patent, BA may recommend removal Recommend BA consultation ORM/RGI handout shared Anxiety Takes Klonopin PRN Recommend establishing with psych/psychology to discuss daily medication She is amenable to psychology referral Pelvic floor dysfunction/tension myalgia Return to [facility] for pelvic pain handout May benefit from TPI or pudendal nerve block Does not want to try vaginal valium again Nausea GI outside of [facility] recommended Zofran for flare days Other pain management TENS unit Already has a muscle relaxer Earle Chen MD 60 minutes were spent with the patient today. documented in this encounter [facility] 09-14-2023 Evaluation note Encounter Date Diagnosis Assessment Notes Aug, Generalized anxiety disorder (ICD-10 - F41.1) Notes that she was has increased anxiety due to living in her current situation with her mother and her family as well as this is causing sleep issues. Discussed that we will increase her bedtime dose to 2 tablets to see if this will help with sleep issues and increased anxiety. Patient is encouraged to stay active and remain involved. Try to keep themselves busy. Take medication as directed and we will continue to monitor. Patient has continued need for Clonazepam. OARRS report processed and reviewed and shows no violations. Patient was educated on the risks and benefits of care home use. Risk assessment was done. Patient is compliant with medication. The patient denies any related side effects. Last filled on 08/09/2023 Aug, Obsessive-compu lsive disorder, unspecified type (ICD-10 - F42.9) Aug, PTSD (post-traumatic stress disorder) (ICD-10 - F43.10) Aug, History of traumatic brain injury (ICD-10 - Z87.820) Referral sent to Neurology for migraines, was on Amovig in the past. Has not had and knows to report HAs that awaken from sleep, increasing frequency/sev erity, unilateral weakness, numbness/ting ling in extremeties, change in vision, double vision, blurry vision. She was referred to [facility]. Aug, Migraine without status migrainosus, not intractable, unspecified migraine type (ICD-10 - G43.909) Discussed an increase in her dose of Tizanadine for better headache control. Pt to call with any worsening symptoms. [employer] Other 12-21-2023 Evaluation note* Encounter Date Diagnosis Assessment Notes Treatment Notes Treatment Clinical Notes Jul, Generalized anxiety disorder (ICD-10 - F41.1) Jul, Endometriosis (ICD-1 0 - N80.9) [employer] Other 12-15-2023 Evaluation note* Encounter Date Diagnosis Assessment Notes Treatment Notes Treatment Clinical Notes Jul, Endometriosis (ICD-10 - N80.9) Discussed symptoms and referrals placed. Also notes that she was taking cyclobenzaprine but this causes her to be to tired after taking. Will trial on Tizanadine. Take muscle relaxer as directed. Do not drink with alcohol or use with other recreational drugs. May cause severe drowsiness. Do not operate a motor vehicle until you know how this medication will effect you. Jul, Generalized anxiety disorder (ICD-10 - F41.1) Remains stable on current therapeutic dose. Patient is encouraged to stay active and remain involved. Try to keep themselves busy. Take medication as directed and we will continue to monitor. Patient has continued need for Clonazepam. OARRS report processed and reviewed and shows no violations. 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 Risk assessment was done as well as pt has 20 pills remaining so was not refilled today. Patient is compliant with medication. The patient denies any related side effects. Jul, Obsessive-compulsiv e disorder, unspecified type (ICD-10 - F42.9) Jul, PTSD (post-traumatic stress disorder) (ICD-10 - F43.10) Jul, History of traumatic brain injury (ICD-10 - Z87.820) Referral sent to Neurology for migraines, was on Amovig in the past. Has not had and knows to report HAs that awaken from sleep, increasing frequency/severity, unilateral weakness, numbness/tingling in extremeties, change in vision, double vision, blurry vision. Jul, Migraine without status migrainosus, not intractable, unspecified migraine type (ICD-10 - G43.909) [facility] [employer] Other 11-06-2020 NoteOPERATIVE NOTE OPERATION DATE: 06-25-20 ANESTHETIC:General. LOG DATA TECHNICIAN:None. PREOPERATIVE DIAGNOSIS: 1. Dyspareunia. 2. Right and left labial hypertrophy. POSTOPERATIVE DIAGNOSIS:Same as above. PROCEDURE NAME: Bilateral labioplasty. BLOOD LOSS:5 mL. URINE OUTPUT: Yellow and clear. SPECIMEN:Excessive labial tissue. PROCEDURE: The patient was taken back to the OR and given general anesthesia without difficulty. She was prepped and draped in the normal sterile fashion after being placed in the dorsal lithotomy position. The right and left labial minora were identified. Excessive labial tissue was identified and a sterile marker was then used to joaquin off the excessive labial tissue. This was done bilaterally. Excessive labial tissue was excised using a 15 blade, removed and handed off to the OR nurse. This was done bilaterally. The base of the labial minora was cauterized using a pinpoint Bovie. 4-0 Monocryl was then used in an interrupted fashion to reapproximate the labial tissue. This was also done bilaterally. Excellent hemostasis was assured. The patient was taken to the Recovery Room in stable condition. Sponge, lap, and needle counts were correct x2. [facility] Signed and Approved by: DR WON LESTER . 07/30/2020 13:02:00[facility] noteNo InformationNortP[facility] [employer] Other Evaluation note* Diagnosis Endometriosis- Primary Endometriosis, site unspecified Pelvic pain Unspecified symptom associated with female genital organs Myalgia of pelvic floor Dysmenorrhea Dyspareunia in female Nausea and vomiting, unspecified vomiting type Bladder pain Other symptoms involving urinary system Anxiety Anxiety state, unspecified documented in this encounter [facility] Diagnosis Onset Date Resolution Status Depression acute Generalized anxiety disorder acute Obsessive compulsive disorder acute PTSD (post-traumatic stress disorder) acute Depression acute Endometriosis acute Generalized anxiety disorder acute Obsessive compulsive disorder acute PTSD (post-traumatic stress disorder) acute TBI (traumatic brain injury) acute [facility] Work Phone: History general Narrative - Reported* Type Description Date Medical History Anxiety Medical History Stage 4 Endometriosis Medical History Depression with manic episodes Medical History OCD Medical History PTSD Medical History TBI Surgical History Endometriosis surgery x2 Surgical History [place] teeth Surgical History Injections in cervix [employer] Other Hospital course Narrative No data available for this section [facility] No data available for this section [facility] No data available for this section [facility]ative)* Consultation (Routine) - New Request Specialty Diagnoses / Procedures Referred By Contac t Referred To Contact Psychology Diagnoses Pelvic pain Anxiety Earle Chen MD [address] [place] [address] Oksana Luu, PhD [address] [place] [address] Referral ID Status Reason Start Date Expiration Date V isits Requested Visits Authorized [id number] New Request 11/02/2023 11/26/2024 1 1 * Consultation (Routine) - New Request Specialty Diagnoses / Procedures Referred By Harris t Referred To Contact Integrative Medicine Diagnoses Pelvic pain Nausea and vomiting, unspecified vomiting type Earle Chen MD [address] [place] [address] Referral ID Status Reason Start Date Expiration Date V isits Requested Visits Authorized [id number] New Request 11/02/2023 11/26/2024 1 1 * Consultation (Routine) - New Request Specialty Diagnoses / Procedures Referred By Harris gautam Referred To Contact Gynecology Diagnoses Pelvic pain Myalgia of pelvic floor Bladder pain Earle Chen MD [address] [place] [address] Referral ID Status Reason Start Date Expiration Date V isits Requested Visits Authorized [id number] New Request 11/02/2023 11/26/2024 1 1 * MRI/CAT Scan (Routine) - New Request Specialty Diagnoses / Procedures Referred By Harris gautam Referred To Contact Diagnoses Endometriosis Pelvic pain Procedures MRI PELVIS WITH AND WITHOUT CONTRAST MA MRI, PELVIS, COMBO Earle Chen MD [address] [place] [address] Referral ID Status Reason Start Date Expiration Date V isits Requested Visits Authorized [id number] New Request 11/02/2023 11/26/2024 1 1 [facility] Summary Purpose Family History No Family History Records Found Relationship Condition Age at Onset Recorded Date/T mike father Prediabetes Unknown grandparent Diabetes mellitus Unknown Not Specified Family history of other condition Unknow n Advance Directives No Advanced Directives Records Found Advance Directive Response Recorded Date/ Time Advance Directives No September 10:30am Reason for Referral Reason *FU 08/06 CALL taryn luangel Diagnosis 1 Endometriosis (N80.9 ) Referral Organization [facility] Referring Provider First Name Lucila Referring Provider Last Name Melquiades Referring Provider Specialty Nurse Pract itioner Referred Organization [facility] Referred Provider Jena Suresh Referred Address ,[place], [place],[address] Referred Provider Specialty OB - Gynecol ogy Referral Priority Routine General Notes GracieValentinya 01:18:58 PM >pt has west. we do not take this insurance. we take east. pt will need to update this with if she has relocated or only here for a short period of time. I called pt but her mail box is full. Reason *08/06 CALL taryn walton Diagnosis 1 History of traumatic brain injury (Z87.820) Diagnosis 2 Migraine without sta tus migrainosus, not intractable, unspecified migraine type (G43.909) Referral Organization [facility] Referring Provider First Name Lucila Referring Provider Last Name [facility] Referring Provider Specialty Nurse Pract itioner Referred Organization [facility] Referred Provider Herbie Arroyo Referred Address [address] [place], [place],[address] Referred Provider Specialty Neurology Referral Priority Routine General Notes Lesley Bowman 01:18:58 PM >pt has west. we do not take this insurance. we take east. pt will need to update this with if she has relocated or only here for a short period of time. I called pt but her mail box is full. Reason *08/[address] Cramer -- Endocrinology Diagnosis 1 Endometriosis (N80.9 ) Referral Organization [facility] Referring Provider First Name Lucila Referring Provider Last Name [facility] Referring Provider Specialty Nurse Pract itioner Ref[facility] Referred Address [address] [place], [place],[address] Referred Provider Specialty Endocrinolog y Referral Priority Routine General Notes Lesley Bowman 01:18:58 PM >pt has west. we do not take this insurance. we take east. pt will need to update this with if she has relocated or only here for a short period of time. I called pt but her mail box is full. Chief Complaint and Reason for Visit Chief Complaint Worsening anxiety, i ntense endo pain Endometriosis Reason for Visit Depression Generalized anxiety disorder Obsessive compulsive disorder PTSD (post-traumatic stress disorder) Depression Endometriosis Generalized anxiety disorder Obsessive compulsive disorder PTSD (post-traumatic stress disorder) TBI (traumatic brain injury) Additional Source Comments INFORMATION SOURCE (unrecogn ized section and content) DATE CREATED AUTHOR [facility]/15/2020 [facility] DATE CREATED AUTHOR AUTHOR'S ORGANIZ ATION 11/03/2023 [facility] DATE CREATED AUTHOR AUTHOR'S ORGANIZ ATION 11/20/2023 [facility] DATE CREATED AUTHOR AUTHOR'S ORGANIZ ATION 12/15/2023 [facility] DATE CREATED AUTHOR AUTHOR'S ORGANIZ ATION 12/28/2023 [facility] EPIC REASON FOR VISIT (unrecogniz ed section and content) Reason Comments Consult Pt diagnosis with En dometriosis in 2018. Patient desire . Specialty Diagnoses / Procedures Referred By Contac t Referred To Contact CIRCULAR CLERK Diagnoses Endometriosis Lucila Arnett, KHADRA [address] [facility] [place] [address] [facility] [address] [place] [address] Referral ID Status Reason Start Date Expiration Date V isits Requested Visits Authorized [id number] New Request 10/23/2023 11/16/2024 1 1 Care Teams (unrecognized sec tion and content) Team Status: Active Member Role Status Dates Lucila Arnett APRN [employer] Primary Care Provider Active Team Status: Inactive Member Role Status Dates Lucila Arnett APRN [employer] Attending Provider Act vinicius Start: September 14, 2023 End: September 14, 2023 Team Status: Inactive Member Role Status Dates Lucila Arnett APRN [employer] Primary Care Provider, Attending Provider Active Start: October 17, 2023 End: October 17, 2023 Team Status: Inactive Member Role Status Dates Lucila Arnett APRN [employer] Primary Care Provider, Attending Provider Active Start: November 14, 2023 End: November 14, 2023 Goals (unrecognized section and content) Goals may be documented in a n alternate section FOR RECORDS PERTAINING TO PATIENTS WHO ARE OR HAVE BEEN ENROLLED IN A CHEMICAL DEPENDENCY/SUBSTANCEABUSE PROGRAM, SOME INFORMATION MAY BE OMITTED. This clinical summary was aggregated from multiple sources. Caution should be exercised in using it in the provision of clinical care. This summary normalizes information from multiple sources, and as a consequence, information in this document may materially change the coding, format and clinical context of patient data. In addition, data may be omitted in some cases. CLINICAL DECISIONS SHOULD BE BASED ON THE PRIMARY CLINICAL RECORDS. [email or web address] provides no warranty or guarantee of the accuracy or completeness of information in this document.
[2024-01-03 12:57] LABS: Basophils Absolute Auto 0.1 10^3/uL (0.0-0.1); Basophils Percent Auto 0.7 % (0.2-2.0); Eosinophils Absolute Auto 0.1 10^3/uL (0.0-0.7); Eosinophils Percent Auto 0.8 % (0.9-7.0); Hematocrit 37.9 % (36.0-48.0); Hemoglobin 13.1 g/dL (12.0-16.0); Immature Granulocytes Abs Auto 0.04 10^3/uL (0.00-0.03); Immature Granulocytes Pct Auto 0.6 % (0.0-0.5); Lymphocytes Absolute Auto 1.4 10^3/uL (1.2-3.8); Lymphocytes Percent Auto 19.8 % (20.5-60.0); Mean Corpuscular HGB Conc 34.6 g/dL (29.9-35.2); Mean Corpuscular Hemoglobin 31.8 pg (26.7-34.0); Mean Platelet Volume 8.7 fL (9.5-13.5); Monocytes Absolute Auto 0.5 10^3/uL (0.3-0.8); Monocytes Percent Auto 7.5 % (1.7-12.0); Neutrophils Percent Auto 70.6 % (43.0-75.0); Platelet Count 268 10^3/uL (150-450); Red Blood Count 4.12 10^6/uL (4.20-5.40); Red Cell Distribution Width 12.4 % (11.0-15.0); White Blood Count 7.1 10^3/uL (4.0-11.0)
[2024-01-03 14:00] LABS: Estimated Average Glucose 88 mg/dL; Glycohemoglobin A1C 4.7 % (4.5-6.2)
[2024-01-03 14:13] LABS: BOX Test Sent Out DONE
[2024-01-04 06:10] LABS: Rubella Antibodies, IgG 1.31 index (Immune >0.99)
[2024-01-04 07:09] LABS: HBsAg Screen Negative (Negative); HCV Ab Non Reactive (Non Reactive); HIV Ab/p24 Ag Screen Non Reactive (Non Reactive)
[2024-01-04 12:09] LABS: Rapid Plasma Reagin, Quant Non Reactive titer (NonRea<1:1)
== END 2024-01-03 12:22 | disposition home or self-care (01) ==
LOC: LAB 12:23
PROVIDERS: PCP Nurse Practitioner Family; Visit Provider Obstetrics & Gynecology
DX: N92.6 Irregular menstruation, unspecified (principal); Z36.0 Encounter for antenatal screening for chromosomal anomalies
CPT/HCPCS: 36415; 83036; 85025; 86592; 86762; 86803; 86850; 86900; 86901; 87086; 87340; 87389

== ENCOUNTER 2024-02-01 13:29 | Outpatient (OUT) | payer OTHER, SELFPAY ==
--- OUTSIDE RECORDS SUMMARY | 2024-02-01 13:52 | XMS_ITS | CCD ---
Author Organization [facility] ion [facility] Care Team Providers Care Desktop Specialist Name Role Phone TREVON, DR UPTON Admitting Unavailable MISC, DR DAVENPORT Primary Care Unavailable BOULDER, DR DARLINE [employer] Unavailable TREVON, DR [...] DR UPTON Attending Unavailable Lucila Arnett Unavailable [phone] Unavailable Primary Care Provider Unavailabl e MISAL, EARLE Attending Unavailable LUCILA ARNETT Referring Unavailable LUCILA ARNETT Primary Care Physician KHADRA ARNETT Attending Unava ilable KHADRA ARNETT Admitting Unava ilable YODER, HAKEEM Primary Care Unavailable TREVON, WON Referring Unavailable YODER, HAKEEM Referring Unavailable YODER, HAKEEM Primary Care Unavailable YODER, HAKEEM Primary Care Unavailable TREVON, WON Referring Unavailable YODER, HAKEEM Primary Care Unavailable TREVON, WON Referring Unavailable YODER, HAKEEM Primary Care Unavailable RTEVON, WON Referring Unavailable YODER, HAKEEM Primary Care Unavailable TREVON, WON Referring Unavailable YODER, HAKEEM Primary Care Unavailable TREVON, WON Referring Unavailable TREVON, WON R Referring Unavailable BARI SKELTON Attending Unavailable WON LESTER R Referring Unavailable Hill Jacobsen DO Unavailable Unavailable WON LESTER Attending Unavailable WON LESTER Attending Unavailable WON LESTER Attending Unavailable WON LESTER Attending Unavailable Allergies Allergy Classification Reported Allergen(s) Allergy Type Date of Onset Reaction(s) Facility Opioid Agonists (1 source) traMADol Drug Allergy 0 [facility] (6 sources) traMADol; Translations: [TRAMADOL] Drug Allergy 4 Unknown, Unknown Reaction [facility] (5 sources) Lavender Oil; Translations: [LAVENDER OIL] Drug allergy 4 Unknown [facility] (1 source) lavender (Lavandula angustifolia) Allergy to substance 4 Unknown Reaction [facility] (1 source) GALCANEZUMAB-GN LM; Translations: [GALCANEZUMAB-G [facility]] Propensity to adverse reactions to drug (disorder) 4 [facility] Medications Current Medications Medication Drug Class(es) Dates Sig (Normalized) Sig (Original) acetaminophen 325 mg oral tablet (1 source) Start: 12-26-2022 acetaminophen 325 mg tablet PLEASE SEE ATTACHED FOR DETAILED DIRECTIONS - Active acetaminophen 300 mg / codeine phosphate 30 mg oral tablet (1 source) Opioid Agonist Start: 12-28-2022 acetaminophen 300 mg-codeine 30 mg tablet - Active amoxicillin 875 mg oral tablet (2 sources) Penicillin-class Antibacterial Start: 09-27-2023 take 1 tablet by mouth every twelve hours amoxicillin 875 mg tablet TAKE 1 TABLET BY MOUTH EVERY 12 HOURS FOR 10 DAYS UNTIL ALL TAKEN - Active Start: 12-26-2022 amoxicillin 50 0 mg capsule - Active brompheniramine maleate 0.4 mg/ml / dextromethorphan hydrobromide 2 mg/ml / pseudoephedrine hydrochloride 6 mg/ml oral solution (1 source) alpha-Adrenergic Agonist, Uncompetitive M-ehhpzj-Y-aspartate Receptor Antagonist, Sigma-1 Agonist Start: 09-30-2017 take 5 mL by mouth four times daily Bromfed DM oral syrup 5 mL, Oral, QID for cold symptoms, 200 mL, Refill(s) 0 Start Date: 09/30/17 Status: Ordered celecoxib 200 mg oral capsule (1 source) Nonsteroidal Anti-inflammatory Drug Start: 01-09-2023 celecoxib 200 mg capsule - Active 0.5 ml choriogonadotropin martha 0.5 mg/ml prefilled syringe (1 source) Gonadotropin Start: 12-19-2022 Ovidrel 250 mcg/0.5 mL subcutaneous syringe - Active clonazePAM 0.5 mg oral tablet (7 sources) Benzodiazepine Start: 05-08-2023 take 1 tablet by mouth in the morning, then take 2 tablets by mouth twice daily at bedtime Clonazepam Active 0.5 MG PO .COMPLEX October 16, 2023 1:00am 1 tablet in the am and 2 tablets at bedtime Orally twice daily cyclobenzaprine hydrochloride 10 mg oral tablet (1 source) Muscle Relaxant Start: 04-28-2023 cyclobenzaprine 10 mg tablet - Active doxepin hydrochloride 10 mg oral capsule (1 source) Tricyclic Antidepressant Start: 11-27-2023 doxepin 10 mg capsule - Active escitalopram 20 mg oral tablet (1 source) Serotonin Reuptake Inhibitor Start: 01-09-2023 escitalopram 20 mg tablet - Active ibuprofen 600 mg oral tablet (2 sources) Nonsteroidal Anti-inflammatory Drug Start: 01-27-2019 ibuprofen 600 mg tablet PLEASE SEE ATTACHED FOR DETAILED DIRECTIONS - Active meloxicam 7.5 mg oral tablet (3 sources) Nonsteroidal Anti-inflammatory Drug Start: 10-24-2023 End: 10-26-2023 take 1 tablet by mouth once daily meloxicam 7.5 mg tablet TAKE 1 TABLET BY MOUTH DAILY - Active methocarbamol 750 mg oral tablet (1 source) Muscle Relaxant Start: 01-27-2019 take 1 tablet by mouth every six hours Robaxin-750 oral tablet 750 mg = 1 tab(s), Oral, q6hr, # 12 tab(s), Refills(s) 0 Start Date: 01/27/19 Status: Ordered norethindrone acetate 5 mg oral tablet (1 source) Start: 05-23-2023 norethindrone acetate 5 mg tablet - Active ondansetron 4 mg disintegrating oral tablet (2 sources) Serotonin-3 Receptor Antagonist Start: 11-30-2023 ondansetron 4 mg disintegrating tablet - Active Start: 11-02-2023 take 1 tablet by bailey th every eight hours as needed Ondansetron 4 MG Tab Dispersible tablet Take 1 tablet by mouth every 8 hours as needed for Nausea / Vomiting. 18 tablet 1 11/02/2023 Active tiZANidine 2 mg oral tablet (8 sources) Central alpha-2 Adrenergic Agonist Start: 08-03-2023 take 1 tablet by mouth three times daily as needed tizanidine 2 mg tablet TAKE 1 TABLET BY MOUTH THREE TIMES DAILY NEEDED - Active Start: 08-03-2023 tizanidine 4 m g tablet - Active traZODone hydrochloride 50 mg oral tablet (1 source) Serotonin Reuptake Inhibitor Start: 01-09-2023 trazodone 50 mg tablet - Active Zofran ODT 4 mg Tab-Dis (1 source) Start: 09-21-2018 take 1 tablet by mouth every six hours Zofran ODT 4 mg Tab-Dis 4 mg = 1 tab(s), Oral, q6hr, # 10 tab(s), Refills(s) 0, Pharmacy: [facility] 1984 Start Date: 09/21/18 Status: Ordered Completed/Discontinued [...] [Nausea with vomiting, unspecified] 11-02-2023 Episodic Other complications of (1 source) with inconclusive viability, other fetus; Translations: [ with inconclusive viability, other fetus] Onset: 01-21-2024 Episodic Other complications of (1 source) Supervision of other high risk pregnancies, unspecified trimester; Translations: [Supervision of other high risk pregnancies, unspecified trimester] Onset: 01-21-2024 Episodic Other complications of (1 source) Supervision of high risk , unspecified, unspecified trimester; Translations: [Supervision of high risk , unspecified, unspecified trimester] Onset: 01-21-2024 Episodic Other complications of (1 source) Supervision of other high risk pregnancies, first trimester; Translations: [Supervision of other high risk pregnancies, first trimester] Onset: 01-21-2024 Episodic Other complications of (1 source) Supervision of with other poor reproductive or obstetric history, first trimester; Translations: [Supervision of with other poor reproductive or obstetric history, first trimester] Onset: 01-21-2024 Episodic Other connective tissue disease (1 source) Myalgia of pelvic floor; Translations: [Myalgia, other site] 11-02-2023 Episodic Other female genital disorders (4 sources) Unspecified dyspareunia; Translations: [UNSPECIFIED DYSPAREUNIA] Onset: 06-25-2020 Chronic Other female genital disorders (1 source) Pain in female genitalia on intercourse; Translations: [Unspecified dyspareunia] 11-02-2023 Chronic Other screening for suspected conditions (not mental disorders or infectious disease) (6 sources) Encounter for screening for malignant neoplasm of cervix; Translations: [Encounter for screening, unspecified] Onset: 04-29-2020 Episodic Residual codes; unclassified (1 source) Personal history of other complications of , childbirth and the puerperium; Translations: [Personal history of other complications of , childbirth and the puerperium] Onset: 12-06-2023 Episodic Unclassified (1 source) Details of family - finding 05-29-2014 Unclassified (1 source) labor 06-08-2014 Unclassified (1 source) hx placenta abruption/ PTD Onset: 01-21-2024 Past or Other Problems Problem Classification Problem [...] [UNSPECIFIED HYPERTROPHY OF VULVA] Onset: 08-02-2020 Episodic Residual codes; unclassified (4 sources) Other general symptoms and signs; Translations: [OTHER GENERAL SYMPTOMS AND SIGNS] Onset: 07-12-2020 Episodic Unclassified (1 source) Onset: 08-20-2013 Resolved: 06-08-2014 02-25-2015 Results Test Name Value Interpretation Reference Range Facility HCG.beta subunit Qnon 2023 hCG Quant [id number] mIU/mL Normal [facility] Comment on above: Order Comment: Pregn [...] method. Performed By: #### 2 1198-7 #### [facility] [address] [place] [address] HCG.beta subunit Qnon 2023 hCG Quant [id number] mIU/mL Normal [facility] Comment on above: Order Comment: [...] method. Performed By: #### 2 1198-7 #### [facility] [address] [place] [address] HCG.beta subunit Qnon 2023 hCG Quant [id number] mIU/mL Normal [facility] Comment on above: Order Comment: [...] method. Performed By: #### 2 1198-7 #### [facility] [address] [place] [address] HCG.beta subunit Qnon 2023 hCG Quant [id number] mIU/mL Normal [facility] Comment on above: Order Comment: [...] method. Performed By: #### 2 1198-7 #### [facility] [address] [place] [address] HCG.beta subunit Qnon 2023 hCG Quant 2709 mIU/mL Normal [facility] Comment on above: Order Comment: [...] method. Performed By: #### 2 1198-7 #### [facility] [address] [place] [address] HCG.beta subunit Qnon 2023 hCG Quant 776 mIU/mL Normal [facility] Comment on above: Order Comment: [...] method. Performed By: #### 2 1198-7 #### [facility] [address] [place] [address] HCG.beta subunit Qnon 2023 hCG Quant 250 mIU/mL Normal [facility] Comment on above: Order Comment: [...] method. Performed By: #### 2 1198-7 #### [facility] [address] [place] [address] .Thyroglobulin by IMAon Thyroglobulin [Mass/Vol] 5.0 ng/mL Invalid Interpretation Code 1.5-38.5 [facility] Comment on above: Result Comment: Acco rding [...] is 0.1 ng/mL Thyroglobulin measured by [employer] Immunometric Assay Performed at: [id number] [place], [place] [id number] PhD Johanny Nieto Performed By: #### 2 [id number], [id number], [id number], 9971877, [id number], [id number], [id number] #### [facility] [address] [place] [address] T3 Freeon 11-20-2023 Free T3 [Mass/Vol] 3.2 pg/mL Invalid Interpretation Code 2.0-4.4 [facility] Comment on above: Result Comment: Perf ormed at: [address] [id number] PhD Johanny Nieto Performed By: #### 2 281408, [id number], [id number], 2220223, [id number], [id number], [id number] #### [facility] [address] [place] [address] TgAb+Thyroglobulinon 024 Thyroglobulin Ab Qn [IU]/mL Invalid Interpretation Code 0.0-0.9 [facility] Comment on above: Result Comment: Thyr oglobulin Antibody measured by [employer] It should be noted that the presence of thyroglobulin antibodies may not be pathogenic nor diagnostic, especially at very low levels. The assay superintendent seed mill has found that four percent of individuals without evidence of thyroid disease or autoimmunity will have positive TgAb levels up to 4 IU/mL. Performed at: [facility] [address] [place], [place] [id number] PhD Johanny Nieto Performed By: #### 2 416401, [id number], 01007925, 0710694, [id number], [id number], [id number] #### [facility] [address] [place] [address] Thyroid Perox.tpo Abon 11-19 TPO Ab Qn [IU]/mL Invalid Interpretation Code 0-34 [facility] Comment on above: Result Comment: [facility]f [facility]med at: [facility] [address] [place], [place] [id number] PhD Johanny Nieto Performed By: #### 2 662614, [id number], 81641274, 4737033, [id number], [id number], [id number] #### [facility] [address] [place] [address] BhCG Quanton 11-19-2023 HCG.beta subunit Qn 86 m[IU]/mL High 1-3 [facility] Comment on above: Result Comment: 'F N ON < 1 - 3' ' 0.2 - 1 WEEK = 5 TO 50' ' 1 - 2 WEEKS = 50 - 500' ' 2 - 3 WEEKS = 100 - 5000' ' 3 - 4 WEEKS = 500 - 58489' ' 4 - 5 WEEKS = 1000 - 38128' ' 5 - 6 WEEKS = 07324 - 252686' ' 6 - 8 WEEKS = 22984 - 739753' ' 8 - 12 WEEKS = 50505 - 252125' Performed By: #### 2 [id number] #### [facility] [address] [place] [address] CHEMISTRYOrdered By: SYSTEM SYSTEM on 11-19-2023 HCG.beta [...] 3 - 4 WEEKS = 500 - 13047' ' 4 - 5 WEEKS = 1000 - 02398' ' 5 - 6 WEEKS = 03435 - 562465' ' 6 - 8 WEEKS = 80064 - 348951' ' 8 - 12 WEEKS = 30990 - 717592' Iron [Mass/Vol] 161 ug/dL High 35 - 153 mcg/dL Remisol Chem Iron binding capacity [Mass/Vol] 316 ug/dL Normal 250 - 400 mcg/dL Remisol Chem Transferrin [Mass/Vol] 226 mg/dL Normal 200 - 370 mg/dL Remisol Chem TSH Qn 1.53 m[IU]/L Normal 0.34 - 5.60 mcIU/mL Remisol Chem Consent for Treatmenton 04 Consent for Treatment [id number] .00TIFF Normal [facility] Ironon 11-19-2023 Iron [Mass/Vol] 161 microgram/dL High 35-153 Fis [facility] Comment on above: Performed By: #### 2 541320, [id number], 09479523, 9893562, [id number], [id number], 12110508 #### [facility] [address] [place] [address] Physician Orderon 11-19-2023 Physician Order [id number] .00TIFF Normal [facility] TIBC Calculatedon 11-19-2023 Iron binding capacity [Mass/Vol] 316 microgram/dL Normal 250-400 [facility] Comment on above: Performed By: #### 2 895186, [id number], 64191467, 1050939, [id number], [id number], 30942885 #### [facility] [address] [place] [address] Transferrin [Mass/Vol] 226 mg/dL Normal 200-370 [facility] Comment on above: Performed By: #### 2 397168, [id number], 88111309, 2394968, 558764153, 966232778, 91642487 #### [facility] [address] [id number] TSH With T4fr Reflexon 11-18 TSH Qn 1.53 m[IU]/L Normal 0.34-5.60 [facility] Comment on above: Performed By: #### 2 385504, 04326975, 35841414, 3426639, [id number], 481723076, 63506030 #### [facility] [address] [id number] TSHon 07-12-2020 TSH 0.756 uIU/mL Normal 0.470-4.680 [facility] Comment on above: Performed By: #### T SH #### [facility] [address] [place], [place] [address] Jayne Noris TSH RANGE SEE BELOW Normal [facility] Comment on above: Result Comment: <0.3 4 UIU/ml HYPERTHYROID 0.34-5.60 UIU/ml EUTHYROID >5.60 UIU/ml HYPOTHYROID Performed By: #### T SH #### [facility] [address] [place], [place] [address] Jayne Noris CBC AUTO DIFFon 06-25-2020 BASO # 0.1 103/ul Normal 0.0-0.1 [facility] Comment on above: Performed By: #### C BC #### [facility] [address] [place], [place] [address] Jayne Noris Basophils/100 WBC (Bld) 1.2 % Normal 0.2-2.0 [facility] Comment on above: Performed By: #### C BC #### [facility] [address] [place] [address] Jayne Noris EO # 0.2 103/ul Normal 0.0-0.7 [facility] Comment on above: Performed By: #### C BC #### [facility] [address] [place], [place] [address] Jayne Noris Eosinophils/100 WBC (Bld) 2.6 % Normal 0.9-7.0 [facility] Comment on above: Performed By: #### C BC #### [facility] [address] [place] [address] Jayne Noris Erythrocyte distribution width (RBC) [Ratio] 12.0 % Normal 11.0-15.0 [facility] Comment on above: Performed By: #### C BC #### [facility] [address] [place] [address] Jayne Noris Hematocrit (Bld) [Volume fraction] 40.7 % Normal 36.0-48.0 [facility] Comment on above: Performed By: #### C BC #### [facility] [address] [place] [address] Jayne Noris Hemoglobin (Bld) [Mass/Vol] 13.6 g/dL Normal 12.0-16.0 [facility] Comment on above: Performed By: #### C BC #### [facility] [address] [place] [address] Jayne Nrois IG # 0.01 10e3/ul Normal 0.00-0.03 [facility] Comment on above: Performed By: #### C BC #### [facility] [address] [place] [address] Jayne Noris IG % 0.2 % Normal 0.0-0.5 [facility] Comment on above: Performed By: #### C BC #### [facility] [address] [place], [place] [address] Jayne Noris LYMPH # 1.9 103/ul Normal 1.2-3.8 [facility] Comment on above: Performed By: #### C BC #### [facility] [address] [place] [address] Jayne Noris Lymphocytes/100 WBC (Bld) 32.5 % Normal 20.5-60.0 [facility] Comment on above: Performed By: #### C BC #### [facility] [address] [place], [place] [address] Jayne Cruzen MANUAL DIFF REQ NO Normal [facility] Comment on above: Performed By: #### C BC #### [facility] [address] [place], [place] [address] Jaynejeremías Hamm MCH (RBC) [Entitic mass] 31.3 pg Normal 26.7-34.0 [facility] Comment on above: Performed By: #### C BC #### [facility] [address] [place] [address] Jayne Hamm MCHC (RBC) [Mass/Vol] 33.4 g/dL Normal 29.9-35.2 [facility] Comment on above: Performed By: #### C BC #### [facility] [address] [place] [address] Jaynejeremías Cruzen MCV (RBC) [Entitic vol] 93.6 fL Normal 81.0-99.0 [facility] Comment on above: Performed By: #### C BC #### [facility] [address] [place] [address] Jayne Hamm MONO # 0.6 103/ul Normal 0.3-0.8 [facility] Comment on above: Performed By: #### C BC #### [facility] [address] [place] [address] Jayne Noris Monocytes/100 WBC (Bld) 10.4 % Normal 1.7-12.0 [facility] Comment on above: Performed By: #### C BC #### [facility] [address] [place] [address] Jayne Noris NEUT # 3.1 103/ul Normal 1.4-6.5 [facility] Comment on above: Performed By: #### C BC #### [facility] [address] [place] [address] Jayne Noris Neutrophils/100 WBC (Bld) 53.1 % Normal 43.0-75.0 [facility] Comment on above: Performed By: #### C BC #### [facility] [address] [id number] Jayne Hamm Platelet mean volume (Bld) [Entitic vol] 8.9 fL Critically low 9.5-13.5 [facility] Comment on above: Performed By: #### C BC #### [facility] [address] [id number] Jaynejeremías Cruzen PLT 265 103/ul Normal 150-450 [facility] Comment on above: Performed By: #### C BC #### [facility] [address] [place] [address] Jaynejeremías Cruzen RBC 4.35 106/ul Normal 4.20-5.40 [facility] Comment on above: Performed By: #### C BC #### [facility] [address] [place] [address] Jaynejeremías Cruzen WBC 5.8 103/ul Normal 4.0-11.0 [facility] Comment on above: Performed By: #### C BC #### [facility] [address] [place], [place] [address] Jayne Hamm PREG QUANT HCGon 06-25-2020 HCG QUANT 1.00 mIU/mL Normal [facility] Comment on above: Performed By: #### P REGQNT #### [facility] [address] [place], [place] [address] Jayne Hamm HCG RANGE SEE BELOW Normal [facility] Comment on above: Result Comment: 5-50 0-1 WEEK 40-300 1-2 WEEKS 100-1,000 2-3 WEEKS 500-6,000 3-4 WEEKS 5,000-200,000 1-2 MONTHS 10,000-100,000 2-3 MONTHS 3,000-50,000 2ND TRIMESTER 1,000-50,000 3RD TRIMESTER Performed By: #### P REGQNT #### [facility] [address] [place], [place] [address] Jayne Hamm PAP ACOG PANEL 2: 21 to 29on 05-06-2020 . . Normal [facility] Comment on above: Performed By: #### 4 [id number] #### [facility] [address] [place] [address] Jayne Hamm Age Gdln ACOG Testing 21-29 Normal [facility] Comment on above: Performed By: #### 4 [id number] #### [facility] [address] [place] [address] Jayne Cruzen DIAGNOSIS: Comment Normal [facility] Comment on above: Result Comment: NEGA TIVE FOR INTRAEPITHELIAL LESION OR MALIGNANCY. Performed By: #### 4 [id number] #### [facility] [address] [place] [address] Jayne Cruzen Methodology: Comment Normal [facility] Comment on above: Result Comment: This liquid based SurePath(R) pap test was screened with the assistance of an image guided system. Performed By: #### 4 [id number] #### [facility] [address] [place] [address] Jayne Noris Note: Comment Normal [facility] Comment on above: Result Comment: The Pap smear is a screening test designed to aid in the detection of premalignant and malignant conditions of the uterine cervix. It is not a diagnostic procedure and should not be used as the sole means of detecting cervical cancer. Both false-positive and false-negative reports do occur. . Performed By: #### 4 [id number] #### [facility] [address] [place] [address] Jayne Cruzen Performed by: Comment Normal [facility] Comment on above: Result Comment: Suman Rdz, Yarn Salvager (ASCP) Performed By: #### 4 [id number] #### [facility] [address] [place] [address] Jayne Cruzen Reflex Criteria: Comment Normal [facility] Comment on above: Result Comment: The HPV DNA reflex criteria were not met with this specimen result therefore, no HPV testing was performed. . Performed By: #### 4 [id number] #### [facility] [address] [place] [address] Jayne Cruzen Specimen adequacy: Comment Normal [facility] Comment on above: Result Comment: Sati sfactory for evaluation. Endocervical and/or squamous metaplastic cells (endocervical component) are present. Performed By: #### 4 [id number] #### [facility] [address] [address] Jayne Hamm US PELVIS AND TRANSVAGon US PELVIS AND [...] by: DARLINE ESPITIA Date: 2020-04-30 14:54 Normal [facility] Vital Signs Date Time Vital Sign Value Performing Clinician Facility 12-10-2023 09:18-0400 Diastolic blood pressure 84 mm[Hg] Hill Jacobsen Work Phone: [facility] 12-10-2023 09:18-0400 Heart rate 101 /min Hill Jacobsen Work Phone: [facility] 12-10-2023 09:18-0400 Respiratory rate 12 /min Hill Jacobsen Work Phone: [facility] 12-10-2023 09:18-0400 Systolic blood pressure 132 mm[Hg] [facility] 11-02-2023 14:27-0400 Body height 180.3 cm Earle Chen MD Work Phone: [facility] 11-02-2023 14:27-0400 Body mass index (BMI) [Ratio] 20.04 kg/m2 Earle Chen MD Work Phone: [facility] 11-02-2023 14:27-0400 Body weight 65.18 kg Earle Chen MD Work Phone: [facility] 11-02-2023 14:27-0400 Diastolic blood pressure 80 mm[Hg] Earle Chen MD Work Phone: [facility] 11-02-2023 14:27-0400 Systolic blood pressure 110 mm[Hg] Earle Chen MD Work Phone: [facility] 09-14-2023 11:30-0500 Body height 180.34 cm Lucila Arnett Other [facility] 09-14-2023 11:30-0500 Body mass index (BMI) [Ratio] 20.92 kg/m2 Lucila Arnett Other [employer] [facility] [employer] Other 09-14-2023 11:30-0500 Body weight 68.04 kg Lucila Arnett Other [employer] Other 09-14-2023 11:30-0500 Body weight 68.[address] [facility] 09-14-2023 11:30-0500 Diastolic blood pressure 68 mm[Hg] Lucila Arnett Other [facility] 09-14-2023 11:30-0500 Respiratory rate 16 /min Lucila Arnett Other [employer] Other 09-14-2023 11:30-0500 SaO2% (BldA) [Mass fraction] 100 % Lucila Arnett Other [employer] Other 09-14-2023 11:30-0500 Systolic blood pressure 110 mm[Hg] Lucila Arnett Other [facility] 08-03-2023 10:00-0500 Body height 180.34 cm Lucila Arnett Other [employer] Other 08-03-2023 10:00-0500 Body mass index (BMI) [Ratio] 20.78 kg/m2 Lucila Arnett Other [employer] Other 08-03-2023 10:00-0500 Body weight 67.59 kg Lucila Arnett Other [employer] Other 08-03-2023 10:00-0500 Diastolic blood pressure 66 mm[Hg] Lucila Arnett Other [employer] Other 08-03-2023 10:00-0500 SaO2% (BldA) [Mass fraction] 98 % Lucila Arnett Other [employer] Other 08-03-2023 10:00-0500 Systolic blood pressure 100 mm[Hg] Lucila Arnett Other [employer] Other Encounters Encounter Date Encounter Type Care Provider Facility Start: 01-30-2024 End: 01-30-2024 ambulatory WON TREVON Not Available Start: 01-21-2024 End: 01-21-2024 ambulatory WON R TREVON [facility] Start: 01-17-2024 End: 01-17-2024 ambulatory WON TREVON Not Available Start: 01-03-2024 End: 01-03-2024 ambulatory WON TREVON Not Available Start: 12-26-2023 End: 12-26-2023 ambulatory WON TREVON Not Available Start: 12-13-2023 End: 12-13-2023 ambulatory WON TREVON Not Available Start: 12-10-2023 End: 12-11-2023 ambulatory HAKEEM YODER [facility] Start: 12-10-2023 End: 12-10-2023 Encounter identifier Hill Jacobsen Work Phone: [place] Start: 12-06-2023 End: 12-07-2023 ambulatory HAKEEM YODER [facility] Start: 12-03-2023 End: 12-04-2023 ambulatory HAKEEM YODER [facility] Start: 11-29-2023 End: 11-30-2023 ambulatory HAKEEM YODER [facility] Start: 11-26-2023 End: 11-27-2023 ambulatory HAKEEM YODER [facility] Start: 11-23-2023 End: 11-24-2023 ambulatory HAKEEM YODER [facility] Start: 11-21-2023 End: 11-22-2023 ambulatory HAKEEM YODER [facility] Start: 11-19-2023 End: 11-20-2023 ambulatory IMMIGRATION ATTORNEY LUCILA ARNETT Facility:[facility] Start: 11-19-2023 End: 11-19-2023 Patient encounter procedure LUCILA ARNETT [facility] Start: 11-14-2023 End: 11-14-2023 ambulatory [facility] Work Phone: Start: 11-14-2023 End: 11-14-2023 Patient encounter procedure [facility] Work Phone: Start: 11-02-2023 ambulatory EARLE CHEN Facility:[facility] Start: 11-02-2023 End: 11-02-2023 Office outpatient new 60 minutes Earle Chen MD Work Phone: [facility] [place] Comment on above: Endometriosis (Prima ry Dx); Pelvic pain; Myalgia of pelvic floor; Dysmenorrhea; Dyspareunia in female; Nausea and vomiting, unspecified vomiting type; Bladder pain; Anxiety Start: 10-17-2023 End: 10-17-2023 Patient encounter procedure [facility] Work Phone: Start: 09-14-2023 End: 09-14-2023 ambulatory Lucila Melquiades Other [employer] Other Start: 09-14-2023 Office outpatient vi sit 25 minutes Lucila Arnett [facility] Start: 09-14-2023 End: 09-14-2023 Patient encounter procedure [facility]- Start: 08-09-2023 End: 08-09-2023 ambulatory Lucila Melquiades Other [employer] Other Start: 08-09-2023 Telephone encounter Lucila Dan her [facility] Start: 08-03-2023 End: 08-03-2023 ambulatory Lucila Arnett Other [employer] Other Start: 08-03-2023 Office outpatient ne w 30 minutes Lucila Arnett [facility] Start: 08-03-2023 Telephone encounter Lucila Dan her [employer] Start: 07-12-2020 End: 07-13-[address] WON [...] Endometriosis Pelvic pain Expected: 11/02/2023, Expires: 11/01/2024 [facility] Comment on above: Expected: 11/02/2023 , Expires: 11/01/2024 Start: 10-17-2023 Patient referral [facility] Work Phone: Start: 04-20-2023 COVID-19 VACCINE ( season) COVID-19 VACCINE ( season) [facility] Start: 04-20-2023 Influenza vaccination INFLUENZA VACC INE (#1) [facility] Start: 2017 Screening for malign ant neoplasm of cervix CERVICAL CANCER SCREENING DISCUSSION [facility] Start: 11-08-2015 Hepatitis B vaccination HEP B VACCINE (1 of 3 - 19+ 3-dose series) [facility] Start: 11-08-2015 Third diphtheria, te tanus and acellular pertussis (DTaP) vaccination TDAP (ADULT) [facility] Start: 2012 Screening for Chlamy david trachomatis CHLAMYDIA SCREEN [facility] Start: 11-08-2011 HIV screening HIV SCREENING DISCUSSION [facility] Start: 11-08-2011 Vaccination for kale n papillomavirus HPV VACCINE ADOL (1 - 3-dose series) [facility] Start: 1996 Hepatitis C screening HEPATITI S C VIRUS SCREENING [facility] Start: 1996 Screening for Chlamy david trachomatis GONORRHEA SCREEN [facility] Start: 1996 Tetanus vaccination TETANUS [facility] Patient referral [facility] Work Phone: Payers Date Payer Category Payer [employer] [id number] 2023 [employer] [facility] [id number] 2023-Present [address] [place] [address] [id number] 2023 [employer] others) [id number] 1996 Unknown [id number] 2.16.840.1.761880.3.579.2. 593 1996 Unknown [id number] 2.16.840.1.537333.3.579.2. 593 1996 Unknown [id number] 2.16.840.1.333339.3.579.2. 593 1996 Unknown [id number] 2.16.840.1.588383.3.579.2. 593 1996 Unknown [id number] 2.16.840.1.966544.3.579.2. 593 1996 Unknown [id number] 2.16.840.1.500661.3.579.2. 594 1996 Unknown [id number] 2.16.840.1.996798.3.579.2. 727 1996 Unknown [id number] 2.16.840.1.336395.3.579.2. 1143 1996 Unknown [id number] 2.16.840.1.279990.3.579.2. 1143 1996 Unknown [id number] 2.16.840.1.253008.3.579.2. 1143 1996 Unknown [id number] 2.16.840.1.225523.3.579.2. 1143 1996 Unknown [id number] 2.16.840.1.840118.3.579.2. 1143 1996 Unknown [id number] 2.16.840.1.107411.3.579.2. 1143 1996 Unknown [id number] 2.16.840.1.587158.3.579.2. 1143 1996 Unknown [id number] 2.16.840.1.731017.3.579.2. 1286 1996 Unknown [id number] 2.16.840.1.714490.3.579.2. 1286 1996 Unknown [id number] 2.16.840.1.391809.3.579.2. 1259 1996 Unknown [id number] 2.16.840.1.226538.3.579.2. 1259 1996 Unknown [id number] 2.16.840.1.528477.3.579.2. 9 1996 Unknown [id number] 2.16.840.1.910744.3.579.2. 1259 1996 Unknown [id number] 2.16.840.1.479743.3.579.2. 1259 1959 [employer] others[employer] [id number] 1959 [employer] others[employer] [id number] [employer] others[employer] [id number] 2.16.840.1.564181.19 Social History Date Type Detail Facility Start: 11-02-2023 Sex Assigned At [facility] Start: 09-30-2017 End: 11-02-2023 Tobacco smoking status NHIS Never smoked tobacco [facility] Start: 11-02-2023 Tobacco use and exposure Smokeless tobacco non-user [facility] Start: 11-02-2023 Alcoholic beverage intake Lifetime non-drinker (finding) [facility] Start: 11-02-2023 History of Social function [facility] Start: 1996 Sex assigned at Not on file [facility] Start: 1996 Sex Assigned At Female [facility] Start: 12-10-2023 Tobacco smoking status NHIS Unknown if ever smoked [facility] Start: 12-10-2023 Alcohol intake Alcohol Use Details [facility] Start: 09-04-2023 Sexual Orientation Lesbian, lynch or homosexual [facility] Clinical Notes 06-25-2020 to 11-19-2023 Earle Chen MD - 11/02/2023 2:30 PM EDT Note Date & Type Note Facility 11-19-2023 Evaluation + Plan note Diagnostic Tests PendingT3 Free 11/19/23Thyroid Perox.tpo Ab 11/19/23TgAb+Thyroglobulin,CHING or ARLEN 11/19/23 [facility] 11-02-2023 History of Present illness Narrative GYNECOLOGY CONSULT NOTE REASON FOR VISIT Endometriosis Pelvic pain HISTORY OF PRESENT ILLNESS Ms. Medrano is a 27 y.o. (NSVDx2) who presents for consultation regarding endometriosis, pelvic pain. Records review: Moved back from [place] to [place] (2021) First diagnosed in 2017 Has had [...] tried to get her medical records in [place], but they would not send them. She [...] She had a women's health doctor in [facility] who told her she had stage IV endometriosis. She is no longer on the progesterone. Has tried vaginal valium does not help Her 2 previous pregnancies were with a previous partner. She and her are trying for another now. No BA in [place] Partner has not had a SA yet [...] patient today. 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 Risk assessment was done. Patient is [...] Pt to call with any worsening symptoms. [employer] Other 12-21-2023 Evaluation note* Encounter Date Diagnosis Assessment Notes Treatment Notes Treatment Clinical Notes Jul, Generalized anxiety disorder (ICD-10 - F41.1) Jul, Endometriosis (ICD-1 0 - N80.9) [employer] Other 12-15-2023 Evaluation note* Encounter Date Diagnosis [...] educated on the risks and benefits of snf use. Risk assessment was done as well [...] intractable, unspecified migraine type (ICD-10 - G43.909) [employer] Other 11-06-2020 NoteOPERATIVE NOTE OPERATION DATE: 06-25-20 ANESTHETIC:General. SNAP SHEARER:None. PREOPERATIVE DIAGNOSIS: 1. Dyspareunia. 2. Right and [...] lap, and needle counts were correct x2. [facility] Signed and Approved by: DR WON LESTER . 07/30/2020 13:02:00[facility] note* Clinical Note Date No Information [facility] Work Phone: Discharge summary* Clinical Note Date No Information [facility] Work Phone: [facility] [employer] Other Evaluation note* Diagnosis Endometriosis- Primary Endometriosis, site unspecified Pelvic pain Unspecified symptom associated with female genital organs Myalgia of pelvic floor Dysmenorrhea Dyspareunia in female Nausea and vomiting, unspecified vomiting type Bladder pain Other symptoms involving urinary system Anxiety Anxiety state, unspecified [facility] this [facility] Diagnosis Onset Date Resolution Status Depression acute Generalized anxiety disorder acute Obsessive compulsive disorder acute PTSD (post-traumatic stress disorder) acute Depression acute Endometriosis acute Generalized anxiety disorder acute Obsessive compulsive disorder acute PTSD (post-traumatic stress disorder) acute TBI (traumatic brain injury) acute [facility] Work Phone: Evaluation note* Type Assessment Date No Information [facility] Work Phone: History and physical note* Clinical Note Date No Information [facility] Work Phone: History general Narrative - Reported* Type Description Date Medical History Anxiety Medical History Stage 4 Endometriosis Medical History Depression with manic episodes Medical History OCD Medical History PTSD Medical History TBI Surgical History Endometriosis surgery x2 Surgical History Sedley teeth Surgical History Injections in cervix [facility] [employer] Other History of Present illness Narrative* Encounter Date Complaint History Of Prese nt Illness No Information [facility] Work Phone: Hospital course Narrative No data available for this section [facility] No data available for this section [facility] Date Instruction Additional Infor mation No Information [facility] [employer] [place] Work Phone: Progress note No data available for this section [facility]* Clinical Note Date No Information [facility] Work Phone: Reason for referral (narrative)* Consultation (Routine) - New Request Specialty Diagnoses / Procedures Referred By Harris t Referred To Contact Psychology Diagnoses Pelvic pain Anxiety Earle Chen MD [address] [place] [address] Oksana Luu, PhD [address] [place] [address] Referral ID Status Reason Start Date Expiration Date V isits Requested Visits Authorized [id number] New Request 11/02/2023 11/26/2024 1 1 * Consultation (Routine) - New Request Specialty Diagnoses / Procedures Referred By Harris t Referred To Contact Integrative Medicine Diagnoses Pelvic pain Nausea and vomiting, unspecified vomiting type Earle Chen MD [address] [place] [address] Referral ID Status Reason Start Date Expiration Date V isits Requested Visits Authorized [id number] New Request 11/02/2023 11/26/2024 1 1 * Consultation (Routine) - New Request Specialty Diagnoses / Procedures Referred By Harris t Referred To Contact Gynecology Diagnoses Pelvic pain Myalgia of pelvic floor Bladder pain Earle Chen MD [address] [place] [address] Referral ID Status Reason Start Date Expiration Date V isits Requested Visits Authorized [id number] New Request 11/02/2023 11/26/2024 1 1 * MRI/CAT Scan (Routine) - New Request Specialty Diagnoses / Procedures Referred By Contac t Referred To Contact Diagnoses Endometriosis Pelvic pain Procedures MRI PELVIS WITH AND WITHOUT CONTRAST TX MRI, PELVIS, COMBO Earle Chen MD [address] [place] [address] Referral ID Status Reason Start Date Expiration Date V isits Requested Visits Authorized [id number] New Request 11/02/2023 11/26/2024 1 1 [facility] Reason For Referral No Information [facility] Work Phone: Summary Purpose Family History No Family History Records Found Relationship Condition Age at Onset Recorded Date/T mike father Prediabetes Unknown grandparent Diabetes mellitus Unknown Not Specified Family history of other condition Unknow n Family Member Type Diagnosis Age At Onset No Information Advance Directives No Advanced Directives Records Found Advance Directive Response Recorded Date/ Time Advance Directives No September 10:30am Directive Yes / No Effective Date File Name No Information Reason for Referral Reason *08/06 CALL taryn walton Diagnosis 1 Endometriosis (N80.9 ) Referral Organization [facility] Referring Provider First Name Lucila Referring Provider Last Name Steveachealaina Referring Provider Specialty Nurse Pract itioner Referred Organization [facility] Referred Provider Jena Suresh Referred Address ,[place], [place],[address] Referred Provider Specialty OB - Gynecol ogy Referral Priority Routine General Notes Lesley Bowman 01:18:58 PM >pt has west. we do not take this insurance. we take east. pt will need to update this with if she has relocated or only here for a short period of time. I called pt but her mail box is full. Reason *FU 08/06 CALL taryn walton Diagnosis 1 History of traumatic brain injury (Z87.820) Diagnosis 2 Migraine without sta tus migrainosus, not intractable, unspecified migraine type (G43.909) Referral Organization [facility] Referring Provider First Name Lucila Referring Provider Last Name Rohrbacher Referring Provider Specialty Nurse Pract itogdenr Referred Organization [facility] Referred Provider Herbie Arroyo Referred Address [address] [place], [place],[address] Referred Provider Specialty Neurology Referral Priority Routine [...] Diagnosis 1 Endometriosis (N80.9 ) Referral Organization [facility] Referring Provider First Name Lucila Referring Provider Last Name [facility] Referring Provider Specialty Nurse Pract itogdenr Referred Organization [facility] Referred Address [address] [place], [place],[address] Referred Provider Specialty Endocrinolog y Referral Priority [...] content) DATE CREATED AUTHOR 12/15/2020 [facility] DATE CREATED AUTHOR AUTHOR'S ORGANIZ ATION 11/03/2023 [facility] DATE CREATED AUTHOR AUTHOR'S ORGANIZ ATION 11/20/2023 [facility] DATE CREATED AUTHOR AUTHOR'S ORGANIZ ATION 12/15/2023 [facility] DATE CREATED AUTHOR AUTHOR'S ORGANIZ ATION 01/22/2024 [facility] DATE CREATED AUTHOR AUTHOR'S ORGANIZ ATION 01/31/[address] [facility] dical Specialists EPIC REASON FOR VISIT (unrecogniz ed section and content) Reason Comments Consult Pt diagnosis with En dometriosis in 2018. Patient desire . Specialty Diagnoses / Procedures Referred By Harris t Referred To Contact [facility] [place] Diagnoses Endometriosis Lucila Arnett, KHADRA [address] [facility] [place] [address] [facility] [address] [place] [address] Referral ID Status Reason Start Date Expiration Date V isits Requested Visits Authorized [id number] New Request 10/23/2023 11/16/2024 1 1 Care Teams (unrecognized sec tion and content) Team Status: Active Member Role Status Dates Lucila Arnett APRN HOMICIDE INVESTIGATOR-C Primary Care Provider Active Team Status: Inactive Member Role Status Dates Lucila Arnett APRN HOMICIDE INVESTIGATOR-C Attending Provider Act vinicius Start: September 14, 2023 End: September 14, 2023 Team Status: Inactive Member Role Status Dates Lucila Arnett APRN HOMICIDE INVESTIGATOR-C Primary Care Provider, Attending Provider Active Start: October 17, 2023 End: October 17, 2023 Team Status: Inactive Member Role Status Dates Lucila Arnett APRN HOMICIDE INVESTIGATOR-C Primary Care Provider, Attending Provider Active Start: November 14, 2023 End: November 14, 2023 Name Effective Dates (start - stop) Status Members No Information Goals (unrecognized section and content) Goals may [...] BE BASED ON THE PRIMARY CLINICAL RECORDS. [facility]. provides no warranty or guarantee of the accuracy or completeness of information in this document.
[2024-02-06 00:07] LABS: AFP Value 34.7 ng/mL (.); Gest. Age on Collection Date 14.9 weeks (.); Insulin Dep Diabetes No (.); Maternal Age At EDD 27.7 yr (.); OSBR Risk 1 IN See interpretation. (.); Results Report (.)
== END 2024-02-01 13:30 | disposition home or self-care (01) ==
LOC: LAB 13:30
PROVIDERS: PCP Nurse Practitioner Family; Visit Provider Obstetrics & Gynecology
DX: Z34.92 Encounter for supervision of normal pregnancy, unspecified, second trimester (principal)
CPT/HCPCS: 36415; 82105

== ENCOUNTER 2024-02-16 10:37 | Outpatient (OUT) | payer OTHER, SELFPAY ==
--- OUTSIDE RECORDS SUMMARY | 2024-02-16 10:41 | XMS_ITS | CCD ---
Author Organization [facility] Inform ion [facility] Care Team Providers Care Air Quality Engineer Name Role Phone TREVON, DR UPTON Admitting Unavailable MISC, DR DAVENPORT Primary Care Unavailable KEWANEE, DR DARLINE Fitzgerald Consulting Unavailable TREVON, DR [...] DR UPTON Attending Unavailable Lucila Arnett Unavailable [phone] Unavailable Primary Care Provider Unavailabl e MISAL, EARLE Attending Unavailable LUCILA ARNETT Referring Unavailable LUCILA ARNETT Primary Care Physician [phone] KHADRA ARNETT Attending Unava ilable KHADRA ARNETT [...] Primary Care Unavailable TREVON, WON Referring Unavailable YEIMY LESTERY R Referring Unavailable BARI SKELTON Attending Unavailable TREVON, WON R Referring Unavailable Hill Jacobsen DO Unavailable Unavailable WON LESTER Attending Unavailable WON LESTER Attending Unavailable WON LESTER Attending Unavailable WON LESTER Attending Unavailable WON LESTER Attending Unavailable Allergies Allergy Classification Reported Allergen(s) Allergy Type Date of Onset Reaction(s) Facility Opioid Agonists (1 source) traMADol Drug Allergy 0 [facility] Repository (6 sources) traMADol; Translations: [TRAMADOL] Drug Allergy 4 Unknown, Unknown Reaction [facility] (5 sources) Lavender Oil; Translations: [LAVENDER OIL] Drug allergy 4 Unknown [facility] Repository (1 source) lavender (Lavandula angustifolia) Allergy to substance 4 Unknown Reaction [facility] (1 source) GALCANEZUMAB-GN LM; Translations: [GALCANEZUMAB-G NLM] Propensity to adverse reactions to drug (disorder) [...] oral solution (1 source) alpha-Adrenergic Agonist, Uncompetitive G-wpycpl-S-aspartate Receptor Antagonist, Sigma-1 Agonist Start: 09-30-2017 take [...] 5 mg oral tablet (1 source) Start: 01-09-2023 norethindrone acetate 5 mg tablet - Active [...] q6hr, # 10 tab(s), Refills(s) 0, Pharmacy: [facility] 1984 Start Date: 09/21/18 Status: [...] Facility HCG.beta subunit Qnon 2023 hCG Quant [id number] mIU/mL Normal [facility] Comment on above: Order Comment: Pregn phill [...] method. Performed By: #### 2 1198-7 #### [facility] [address] [place] [address] HCG.beta subunit Qnon 2023 hCG Quant 09603 mIU/mL Normal [facility] Comment on above: Order Comment: Pregn [...] method. Performed By: #### 2 1198-7 #### [facility] [address] [place] [address] HCG.beta subunit Qnon 2023 hCG Quant 95632 mIU/mL Normal [facility] Comment on above: Order Comment: Pregn [...] method. Performed By: #### 2 1198-7 #### [facility] [address] [place] [address] HCG.beta subunit Qnon 2023 hCG Quant 16593 mIU/mL Normal [facility] Comment on above: Order Comment: Pregn [...] method. Performed By: #### 2 1198-7 #### [facility] [address] [place] [address] HCG.beta subunit Qnon 2023 hCG Quant 2709 mIU/mL Normal [facility] Comment on above: Order Comment: Pregn [...] method. Performed By: #### 2 1198-7 #### [facility] [address] [place] [address] HCG.beta subunit Qnon 2023 hCG Quant 776 mIU/mL Normal [facility] Comment on above: Order Comment: Pregn [...] method. Performed By: #### 2 1198-7 #### [facility] [address] [place] [address] HCG.beta subunit Qnon 2023 hCG Quant 250 mIU/mL Normal [facility] Comment on above: Order Comment: Pregn [...] method. Performed By: #### 2 1198-7 #### [facility] [address] [place] [address] .Thyroglobulin by IMAon Thyroglobulin [Mass/Vol] 5.0 ng/mL Invalid Interpretation Code 1.5-38.5 [facility] Comment on above: Result Comment: Acco [...] by John Vish Immunometric Assay Performed at: [address] [place], [place] [id number] PhD Johanny Nieto Performed By: #### 2 877833, [id number], [id number], 9663556, [id number], [id number], [id number] #### [facility] [address] [place] [address] T3 Freeon 11-20-2023 Free T3 [Mass/Vol] 3.2 pg/mL Invalid Interpretation Code 2.0-4.4 [facility] Comment on above: Result Comment: Perf ormed at: [address] [id number] PhD Johanny Nieto Performed By: #### 2 550140, [id number], [id number], 0287203, [id number], [id number], [id number] #### [facility] [address] [place] [address] TgAb+Thyroglobulinon 024 Thyroglobulin Ab Qn [IU]/mL Invalid Interpretation Code 0.0-0.9 [facility] Comment on above: Result Comment: Thyr oglobulin Antibody measured by [facility] Methodology It should be noted that the presence of thyroglobulin antibodies may not be pathogenic nor diagnostic, especially at very low levels. The assay logistics account manager has found that four percent of individuals without evidence of thyroid disease or autoimmunity will have positive TgAb levels up to 4 IU/mL. Performed at: [facility] [address] [place], [place] [id number] PhD Johanny Nieto Performed By: #### 2 068612, [id number], [id number], [id number], [id number], [id number], [id number] #### [facility] [address] [place] [address] Thyroid Perox.tpo Abon 11-19 TPO Ab Qn [IU]/mL Invalid Interpretation Code 0-34 [facility] Comment on above: Result Comment: Perf ormed at: [facility] [address] [place], [place] [id number] PhD Johanny Nieto Performed By: #### 2 864176, [id number], 77923324, 0477578, [id number], [id number], [id number] #### [facility] [address] [place] [address] BhCG Quanton 11-19-2023 HCG.beta subunit Qn 86 m[IU]/mL High 1-3 [facility] Comment on above: Result Comment: 'F N ON < 1 - 3' ' 0.2 - 1 WEEK = 5 TO 50' ' 1 - 2 WEEKS = 50 - 500' ' 2 - 3 WEEKS = 100 - 5000' ' 3 - 4 WEEKS = 500 - 88071' ' 4 - 5 WEEKS = 1000 - 43711' ' 5 - 6 WEEKS = 87884 - 280403' ' 6 - 8 WEEKS = 60191 - 866756' ' 8 - 12 WEEKS = 83747 - 381461' Performed By: #### 2 [id number] #### [facility] [address] [place] [address] CHEMISTRYOrdered By: SYSTEM SYSTEM on 11-19-2023 HCG.beta [...] 3 - 4 WEEKS = 500 - 71138' ' 4 - 5 WEEKS = 1000 - 63236' ' 5 - 6 WEEKS = 71032 - 697103' ' 6 - 8 WEEKS = 97423 - 887389' ' 8 - 12 WEEKS = 64752 - 826665' Iron [Mass/Vol] 161 ug/dL High 35 - 153 mcg/dL Remisol Chem Iron binding capacity [Mass/Vol] 316 ug/dL Normal 250 - 400 mcg/dL Remisol Chem Transferrin [Mass/Vol] 226 mg/dL Normal 200 - 370 mg/dL Remisol Chem TSH Qn 1.53 m[IU]/L Normal 0.34 - 5.60 mcIU/mL Remisol Chem Consent for Treatmenton 04-0 Consent for Treatment [id number] .[id number] Normal [facility] Ironon 11-19-2023 Iron [Mass/Vol] 161 microgram/dL High 35-[address] [facility] Comment on above: Performed By: #### 2 423090, [id number], 12233199, 3025727, [id number], [id number], [id number] #### [facility] [address] [place] [address] Physician Orderon 11-19-2023 Physician Order [id number] Normal [facility] TIBC Calculatedon 11-19-2023 Iron binding capacity [Mass/Vol] 316 microgram/dL Normal 250-400 [facility] Comment on above: Performed By: #### 2 124585, [id number], 82950624, 1210177, [id number], 154502552, 92948095 #### [facility] [address] [place] [address] Transferrin [Mass/Vol] 226 mg/dL Normal 200-370 [facility] Comment on above: Performed By: #### 2 944200, 53734020, 26611949, 7865884, 843246499, 768660325, 91635509 #### [facility] [address] [place] [address] TSH With T4fr Reflexon 11-18 TSH Qn 1.53 m[IU]/L Normal 0.34-5.60 [facility] Comment on above: Performed By: #### 2 454121, 22788239, 64583993, 3617660, 908485019, 412048077, 87810792 #### [facility] [address] [place] [address] TSHon 07-12-2020 TSH 0.756 uIU/mL Normal 0.470-4.680 [facility] Comment on above: Performed By: #### T SH #### [facility] [address] [place], [place] [address] Jayne Hamm TSH RANGE SEE BELOW Normal [facility] Comment on above: Result Comment: <0.3 4 UIU/ml HYPERTHYROID 0.34-5.60 UIU/ml EUTHYROID >5.60 UIU/ml HYPOTHYROID Performed By: #### T SH #### [facility] [address] [place], [place] [address] Jayne Hamm CBC AUTO DIFFon 06-25-2020 BASO # 0.1 103/ul Normal 0.0-0.[address] [facility] Comment on above: Performed By: #### C BC #### [facility] [address] [place], [place] [address] Jayne Hamm Basophils/100 WBC (Bld) 1.2 % Normal 0.2-2.[address] [facility] Comment on above: Performed By: #### C BC #### [facility] [address] [place], [place] [address] Jayne Noris EO # 0.2 103/ul Normal 0.0-0.[address] [facility] Comment on above: Performed By: #### C BC #### [facility] [address] [place] [address] Jayne Noris Eosinophils/100 WBC (Bld) 2.6 % Normal 0.9-7.[address] [facility] Comment on above: Performed By: #### C BC #### [facility] [address] [place] [address] Jayne Noris Erythrocyte distribution width (RBC) [Ratio] 12.0 % Normal 11.0-15.[address] [facility] Comment on above: Performed By: #### C BC #### [facility] [address] [place] [address] Jayne Noris Hematocrit (Bld) [Volume fraction] 40.7 % Normal 36.0-48.[address] [facility] Comment on above: Performed By: #### C BC #### [facility] [address] [place] [address] Jayne Noris Hemoglobin (Bld) [Mass/Vol] 13.6 g/dL Normal 12.0-16.[address] [facility] Comment on above: Performed By: #### C BC #### [facility] [address] [place] [address] Jayne Noris IG # 0.01 10e3/ul Normal 0.00-0.03 [facility] Comment on above: Performed By: #### C BC #### [facility] [address] [place] [address] Jayne Noris IG % 0.2 % Normal 0.0-0.5 [facility] Comment on above: Performed By: #### C BC #### [facility] [address] [place] [address] Jayne Noris LYMPH # 1.9 103/ul Normal 1.2-3.8 [facility] Comment on above: Performed By: #### C BC #### [facility] [address] [place] [address] Jayne Noris Lymphocytes/100 WBC (Bld) 32.5 % Normal 20.5-60.[address] [facility] Comment on above: Performed By: #### C BC #### [facility] [address] [place], [place] [address] Jayne Noris MANUAL DIFF REQ NO Normal [facility] Comment on above: Performed By: #### C BC #### [facility] [address] [place] [address] Jaynejeremías Hamm MCH (RBC) [Entitic mass] 31.3 pg Normal 26.7-34.[address] [facility] Comment on above: Performed By: #### C BC #### [facility] [address] [place] [address] Jaynejeremías Hamm MCHC (RBC) [Mass/Vol] 33.4 g/dL Normal 29.9-35.[address] [facility] Comment on above: Performed By: #### C BC #### [facility] [address] [place] [address] Jaynejeremías Cruzen MCV (RBC) [Entitic vol] 93.6 fL Normal 81.0-99.[address] [facility] Comment on above: Performed By: #### C BC #### [facility] [address] [place] [address] Jayne Noris MONO # 0.6 103/ul Normal 0.3-0.[address] [facility] Comment on above: Performed By: #### C BC #### [facility] [address] [place] [address] Jayne Noris Monocytes/100 WBC (Bld) 10.4 % Normal 1.7-12.[address] [facility] Comment on above: Performed By: #### C BC #### [facility] [address] [place] [address] Jayne Noris NEUT # 3.1 103/ul Normal 1.4-6.5 [facility] Comment on above: Performed By: #### C BC #### [facility] [address] [place] [address] Ajyne Noris Neutrophils/100 WBC (Bld) 53.1 % Normal 43.0-75.[address] [facility] Comment on above: Performed By: #### C BC #### [facility] [address] [place], [place] [address] Jayne Hamm Platelet mean volume (Bld) [Entitic vol] 8.9 fL Critically low 9.5-13.[address] [facility] Comment on above: Performed By: #### C BC #### [facility] [address] [place], [place] [address] Jayne Hamm PLT 265 103/ul Normal 150-450 [facility] Comment on above: Performed By: #### C BC #### [facility] [address] [place] [address] Jaynejeremías Hamm RBC 4.35 106/ul Normal 4.20-5.40 [facility] Comment on above: Performed By: #### C BC #### [facility] [address] [place] [address] Jayne Hamm WBC 5.8 103/ul Normal 4.0-11.[address] [facility] Comment on above: Performed By: #### C BC #### [facility] [address] [place], [place] [address] Jayne Hamm PREG QUANT HCGon 06-25-2020 HCG QUANT 1.00 mIU/mL Normal [facility] Comment on above: Performed By: #### P REGQNT #### [facility] [address] [place], [place] [address] Jayne Hamm HCG RANGE SEE BELOW Normal [facility] Comment on above: Result Comment: 5-50 0-1 WEEK 40-300 1-2 WEEKS 100-1,000 2-3 WEEKS 500-6,000 3-4 WEEKS 5,000-200,000 1-2 MONTHS 10,000-100,000 2-3 MONTHS 3,000-50,000 2ND TRIMESTER 1,000-50,000 3RD TRIMESTER Performed By: #### P REGQNT #### [facility] [address] [place], [place] [address] Jayne Hamm PAP ACOG PANEL 2: 21 to 29on 05-06-2020 . . Normal [facility] Comment on above: Performed By: #### 4 [id number] #### [facility] [address] [place] [address] Jayne Noris Age Gdln ACOG Testing 21-[address] [facility] Comment on above: Performed By: #### 4 [id number] #### [facility] [address] [place] [address] Jayne Hamm DIAGNOSIS: Comment Normal [facility] Comment on above: Result Comment: NEGA TIVE FOR INTRAEPITHELIAL LESION OR MALIGNANCY. Performed By: #### 4 [id number] #### [facility] [address] [place] [address] Jayne Hamm Methodology: Comment Normal [facility] Comment on above: Result Comment: This liquid based SurePath(R) pap test was screened with the assistance of an image guided system. Performed By: #### 4 [id number] #### [facility] [address] [place] [address] Jayne Hamm Note: Comment Normal [facility] Comment on above: Result Comment: The Pap smear is a screening test designed to aid in the detection of premalignant and malignant conditions of the uterine cervix. It is not a diagnostic procedure and should not be used as the sole means of detecting cervical cancer. Both false-positive and false-negative reports do occur. . Performed By: #### 4 [id number] #### [facility] [address] [place] [address] Jayne Hamm Performed by: Comment Normal [facility] Comment on above: Result Comment: Suman Rdz, Cork Compounder (ASCP) Performed By: #### 4 [id number] #### [facility] [address] [place] [address] Jayne Hamm Reflex Criteria: Comment Normal [facility] Comment on above: Result Comment: The HPV DNA reflex criteria were not met with this specimen result therefore, no HPV testing was performed. . Performed By: #### 4 [id number] #### [facility] [address] [place] [address] Jayne Hamm Specimen adequacy: Comment Normal [facility] Comment on above: Result Comment: Sati sfactory for evaluation. Endocervical and/or squamous metaplastic cells (endocervical component) are present. Performed By: #### 4 [id number] #### [facility] [address] [place] [address] Jayne Hamm US PELVIS AND TRANSVAGon US [...] by: DARLINE ESPITIA Date: 2020-04-30 14:54 Normal [facility] Vital Signs Date Time Vital Sign Value Performing Clinician Facility 12-10-2023 09:18-0400 Diastolic blood pressure 84 mm[Hg] Hill Jacobsen Work Phone: [facility] 12-10-2023 09:18-0400 Heart rate 101 /min Hill Jacobsen Work Phone: [facility] 12-10-2023 09:18-0400 Respiratory rate 12 /min Hill Jacobsen Work Phone: [facility] 12-10-2023 09:18-0400 Systolic blood pressure 132 mm[Hg] [facility] 11-02-2023 14:27-0400 Body height 180.3 cm Earle Chen MD Work Phone: [facility] 11-02-2023 14:27-0400 Body mass index (BMI) [Ratio] 20.04 kg/m2 Earle Chen MD Work Phone: [facility] 11-02-2023 14:27-0400 Body weight 65.18 kg Earle Chen MD Work Phone: [facility] 11-02-2023 14:27-0400 Diastolic blood pressure 80 mm[Hg] Earle Chen MD Work Phone: [facility] 11-02-2023 14:27-0400 Systolic blood pressure 110 mm[Hg] Earle Chen MD Work Phone: [facility] 09-14-2023 11:30-0500 Body height 180.34 cm Lucila Arnett Other [facility] 09-14-2023 11:30-0500 Body mass index (BMI) [Ratio] 20.92 kg/m2 Lucila Arnett Other [facility] [employer] Other 09-14-2023 11:30-0500 Body weight 68.04 kg Lucila Arnett Other [facility] [employer] Other 09-14-2023 11:30-0500 Body weight 68.03 kg [facility] 09-14-2023 11:30-0500 Diastolic blood pressure 68 mm[Hg] Lucila Arnett Other [facility] 09-14-2023 11:30-0500 Respiratory rate 16 /min Lucila Arnett Other [facility] [employer] Other 09-14-2023 11:30-0500 SaO2% (BldA) [Mass fraction] 100 % Lucila Arnett Other [facility] [employer] Other 09-14-2023 11:30-0500 Systolic blood pressure 110 mm[Hg] Lucila Arnett Other [facility] 08-03-2023 10:00-0500 Body height 180.34 cm Lucila Arnett Other [employer] Other 08-03-2023 10:00-0500 Body mass index (BMI) [Ratio] 20.78 kg/m2 Lucila Melquiades Other [facility] [employer] Other 08-03-2023 10:00-0500 Body weight 67.59 kg Lucila Melquiades Other [facility] Other 08-03-2023 10:00-0500 Diastolic blood pressure 66 mm[Hg] Lucila Arnett Other [employer] Other 08-03-2023 10:00-0500 SaO2% (BldA) [Mass fraction] 98 % Lucila Arnett Other [facility] Other 08-03-2023 10:00-0500 Systolic blood pressure 100 mm[Hg] Lucila Arnett Other [employer] Other Encounters Encounter Date Encounter Type Care Provider Facility Start: 02-13-2024 End: 02-13-2024 ambulatory WON TREVON Not Available Start: 01-30-2024 End: 01-30-2024 ambulatory WON TREVON Not Available Start: 01-21-2024 End: 01-21-2024 ambulatory WON R TREVON [facility] Start: 01-17-2024 End: 01-17-2024 ambulatory WON TREVON Not Available Start: 01-03-2024 End: 01-03-2024 ambulatory WON TREVON Not Available Start: 12-26-2023 End: 12-26-2023 ambulatory WON TREVON Not Available Start: 12-13-2023 End: 12-13-2023 ambulatory WON TREVON Not Available Start: 12-10-2023 End: 12-11-2023 ambulatory HAKEEM YODER [facility] Start: 12-10-2023 End: 12-10-2023 Encounter identifier Hill Jacobsen Work Phone: [facility] [place] Start: 12-06-2023 End: 12-07-2023 ambulatory HAKEEM YODER [facility] Start: 12-03-2023 End: 12-04-2023 ambulatory HAKEEM BEBA [facility] Start: 11-29-2023 End: 11-30-2023 ambulatory HAKEEM YODER [facility] Start: 11-26-2023 End: 11-27-2023 ambulatory HAKEEM YODER [facility] Start: 11-23-2023 End: 11-24-2023 ambulatory HAKEEM YODER [facility] Start: 11-21-2023 End: 11-22-2023 ambulatory HAKEEM YODER [facility] Start: 11-19-2023 End: 11-20-2023 ambulatory [employer]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 Start: 11-14-2023 End: 11-14-2023 ambulatory [facility] Work Phone: Start: 11-14-2023 End: 11-14-2023 Patient encounter procedure [facility] Work Phone: Start: 11-02-2023 ambulatory EARLE CHEN Facility:[facility] Start: 11-02-2023 End: 11-02-2023 Office outpatient new 60 minutes Earle Chen MD Work Phone: [facility] [place] Comment on above: Endometriosis (Prima ry Dx); Pelvic pain; Myalgia of pelvic floor; Dysmenorrhea; Dyspareunia in female; Nausea and vomiting, unspecified vomiting type; Bladder pain; Anxiety Start: 10-17-2023 End: 10-17-2023 Patient encounter procedure [facility] Work Phone: Start: 09-14-2023 End: 09-14-2023 ambulatory Lucila Arnett Other [employer] Other Start: 09-14-2023 Office outpatient vi sit 25 minutes Lucila Arnett [facility] Start: 09-14-2023 End: 09-14-2023 Patient encounter procedure [facility]- Start: 08-09-2023 End: 08-09-2023 ambulatory Lucila Arnett Other [employer] Other Start: 08-09-2023 Telephone encounter Lucila Dan her [facility] Start: 08-03-2023 End: 08-03-2023 ambulatory Lucila Arnett Other [employer] Other Start: 08-03-2023 Office outpatient ne w 30 minutes Lucila Arnett [facility] Start: 08-03-2023 Telephone encounter Lucila Dan her [employer] Start: 07-12-2020 End: 07-13-[address] WON [...] Endometriosis Pelvic pain Expected: 11/02/2023, Expires: 11/01/2024 [facility] Comment on above: Expected: 11/02/2023 , Expires: 11/01/2024 Start: 10-17-2023 Patient referral [facility] Work Phone: Start: 04-20-2023 COVID-19 VACCINE ( season) COVID-19 VACCINE () [facility] Start: 04-20-2023 Influenza vaccination INFLUENZA VACC INE (#1) [facility] Start: 2017 Screening for malign ant neoplasm of cervix CERVICAL CANCER SCREENING DISCUSSION [facility] Start: 11-08-2015 Hepatitis B vaccination HEP B VACCINE (1 of 3 - 19+ 3-dose series) [facility] Start: 11-08-2015 Third diphtheria, te tanus and acellular pertussis (DTaP) vaccination TDAP (ADULT) [facility] Start: 2012 Screening for Chlamy david trachomatis CHLAMYDIA SCREEN [facility] Start: 11-08-2011 HIV screening HIV SCREENING DISCUSSION [facility] Start: 11-08-2011 Vaccination for kale n papillomavirus HPV VACCINE ADOL (1 - 3-dose series) [facility] Start: 1996 Hepatitis C screening HEPATITI S C VIRUS SCREENING [facility] Start: 1996 Screening for Chlamy david trachomatis GONORRHEA SCREEN [facility] Start: 1996 Tetanus vaccination TETANUS [facility] Patient referral [facility] Work Phone: Payers Date Payer Category Payer [employer] ( and others) [id number] 2023 [employer] ( [employer] others) [facility] [id number] 2023-Present [address] [place] [address] [id number] 2023 [facility] ( and others) [id number] 1996 Unknown [id number] 1996 Unknown [id number] 1996 Unknown [id number] 1995 Unknown [id number] 2.16.840.1.978952.3.579.2. 593 1996 Unknown [id number] 2.16.840.1.489268.3.579.2. 593 1996 Unknown [id number] 2.16.840.1.925250.3.579.2. 594 1996 Unknown [id number] 2.16.840.1.059052.3.579.2. 727 1996 Unknown [id number] 2.16.840.1.902216.3.579.2. 1143 1996 Unknown [id number] 2.16.840.1.973524.3.579.2. 1143 1996 Unknown [id number] 2.16.840.1.771229.3.579.2. 1143 1996 Unknown [id number] 2.16.840.1.713088.3.579.2. 1143 1996 Unknown [id number] 2.16.840.1.648506.3.579.2. 1143 1996 Unknown [id number] 2.16.840.1.414382.3.579.2. 1143 1996 Unknown [id number] 2.16.840.1.160494.3.579.2. 1143 1996 Unknown [id number] 2.16.840.1.688638.3.579.2. 1286 1996 Unknown [id number] 2.16.840.1.159480.3.579.2. 1286 1996 Unknown [id number] 2.16.840.1.148704.3.579.2. 1259 1996 Unknown [id number] 2.16.840.1.952554.3.579.2. 9 1996 Unknown [id number] 2.16.840.1.547341.3.579.2. 9 1996 Unknown [id number] 2.16.840.1.571978.3.579.2. 1259 1996 Unknown [id number] 2.16.840.1.269562.3.579.2. 1259 1996 Unknown [id number] 2.16.840.1.598816.3.579.2. 1259 1959 [employer] [id number] 1959 [employer] [id number] [employer] others[facility] [id number] 2.16.840.1.813805.19 Social History Date Type Detail Facility Start: 11-02-2023 Sex Assigned At [facility] Start: 09-30-2017 End: 11-02-2023 Tobacco smoking status NHIS Never smoked tobacco [facility] Start: 11-02-2023 Tobacco use and exposure Smokeless tobacco non-user [facility] Start: 11-02-2023 Alcoholic beverage intake Lifetime non-drinker (finding) [facility] Start: 11-02-2023 History of Social function [facility] Start: 1995 Sex assigned at Not on file [facility] Start: 1995 Sex Assigned At [facility] Start: 12-10-2023 Tobacco smoking status NHIS Unknown if ever smoked [facility] Start: 12-10-2023 Alcohol intake Alcohol Use Details [facility] Start: 09-04-2023 Sexual Orientation Lesbian, lynch or homosexual [facility] Clinical Notes 06-25-2020 to 11-19-2023 Earle Chen MD - 11/02/2023 2:30 PM EDT Note Date & Type Note Facility 11-19-2023 Evaluation + Plan note Diagnostic Tests PendingT3 Free 11/19/23Thyroid Perox.tpo Ab 11/19/23TgAb+Thyroglobulin,[facility]ING or [facility] 11/19/23 [facility] 11-02-2023 History of Present illness Narrative GYNECOLOGY CONSULT NOTE REASON FOR VISIT Endometriosis Pelvic pain HISTORY OF PRESENT ILLNESS Ms. Medrano is a 27 y.o. (NSVDx2) who presents for consultation regarding endometriosis, pelvic pain. Records review: Moved back from [place] to [place] (2021) First diagnosed in 2017 Has had [...] tried to get her medical records in [place], but they would not send them. She [...] She had a women's health doctor in [facility] who told her she had stage IV endometriosis. She is no longer on the progesterone. Has tried vaginal valium does not help Her 2 previous pregnancies were with a previous partner. She and her are trying for another now. No BA in [place] Partner has not had a SA yet [...] patient today. 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 Risk assessment was done. Patient is [...] Pt to call with any worsening symptoms. [employer] Other 12-21-2023 Evaluation note* Encounter Date Diagnosis Assessment Notes Treatment Notes Treatment Clinical Notes Jul, Generalized anxiety disorder (ICD-10 - F41.1) Jul, Endometriosis (ICD-1 0 - N80.9) [facility] Other 12-15-2023 Evaluation note* Encounter Date Diagnosis [...] educated on the risks and benefits of custodial use. Risk assessment was done as well [...] intractable, unspecified migraine type (ICD-10 - G43.909) [employer] Other 11-06-2020 NoteOPERATIVE NOTE OPERATION DATE: 06-25-20 ANESTHETIC:General. 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 PREOPERATIVE DIAGNOSIS: 1. Dyspareunia. 2. Right and [...] lap, and needle counts were correct x2. [facility] Signed and Approved by: DR WON LESTER . 07/30/2020 13:02:00[facility] note* Clinical Note Date No Information [facility] Work Phone: Discharge summary* Clinical Note Date No Information [facility] Work Phone: Evaluation noteNo Information[employer] Other Evaluation note* Diagnosis Endometriosis- Primary Endometriosis, site unspecified Pelvic pain Unspecified symptom associated with female genital organs Myalgia of pelvic floor Dysmenorrhea Dyspareunia in female Nausea and vomiting, unspecified vomiting type Bladder pain Other symptoms involving urinary system Anxiety Anxiety state, unspecified [facility] Onset Date Resolution Status Depression acute Generalized anxiety disorder acute Obsessive compulsive disorder acute PTSD (post-traumatic stress disorder) acute Depression acute Endometriosis acute Generalized anxiety disorder acute Obsessive compulsive disorder acute PTSD (post-traumatic stress disorder) acute TBI (traumatic brain injury) acute [facility] Work Phone: Evaluation note* Type Assessment Date No Information [facility] Work Phone: History and physical note* Clinical Note Date No Information [facility] Work Phone: History general Narrative - Reported* Type Description Date Medical History Anxiety Medical History Stage 4 Endometriosis Medical History Depression with manic episodes Medical History OCD Medical History PTSD Medical History TBI Surgical History Endometriosis surgery x2 Surgical History [place] teeth Surgical History Injections in cervix [employer] Other History of Present illness Narrative* Encounter Date Complaint History Of Prese nt Illness No Information [facility] Work Phone: Hospital course Narrative No data available [facility] this [facility] No data available [facility] this [facility] Date Instruction Additional Infor mation No Information [facility] Work Phone: Progress note No data available [facility] this [facility] Clinical Note Date No Information [facility] Work Phone: Reason for referral (narrative)* Consultation (Routine) - New Request Specialty Diagnoses / Procedures Referred By Harris gautam Referred To Contact Psychology Diagnoses Pelvic pain Anxiety Earle Chen MD [address] [place] [address] Oksana Luu, PhD [address] [place] [address] Referral ID Status Reason Start Date Expiration Date V isits Requested Visits Authorized [id number] New Request 11/02/2023 11/26/2024 1 1 * Consultation (Routine) - New Request Specialty Diagnoses / Procedures Referred By Harris Referred To Contact Integrative Medicine Diagnoses Pelvic pain Nausea and vomiting, unspecified vomiting type Earle Chen MD [address] [place] [address] Referral ID Status Reason Start Date Expiration Date V isits Requested Visits Authorized [id number] New Request 11/02/2023 11/26/2024 1 1 * Consultation (Routine) - New Request Specialty Diagnoses / Procedures Referred By Contac t Referred To Contact Gynecology Diagnoses Pelvic pain Myalgia of pelvic floor Bladder pain Earle Chen MD [address] [place] [address] Referral ID Status Reason Start Date Expiration Date V isits Requested Visits Authorized [id number] New Request 11/02/2023 11/26/2024 1 1 * MRI/CAT Scan (Routine) - New Request Specialty Diagnoses / Procedures Referred By Harris gautam Referred To Contact Diagnoses Endometriosis Pelvic pain Procedures MRI PELVIS WITH AND WITHOUT CONTRAST [place] MRI, PELVIS, COMBO Earle Chen MD [address] [place] [address] Referral ID Status Reason Start Date Expiration Date V isits Requested Visits Authorized [id number] New Request 11/02/2023 11/26/2024 1 1 [facility] Reason For Referral No Information [facility] Work Phone: Summary Purpose Family History No [...] Name No Information Reason for Referral Reason *FU 08/06 CALL taryn lunagel Diagnosis 1 Endometriosis (N80.9 ) Referral Organization [facility] Referring Provider First Name Lucila Referring Provider Last Name Steveachealaina Referring Provider Specialty Nurse Pract itioner Referred Organization [facility] Referred Provider Jena Suresh Referred Address ,[place], [place],[address] Referred Provider Specialty OB - Gynecol ogy [...] intractable, unspecified migraine type (G43.909) Referral Organization [facility] Referring Provider First Name Lucila Referring Provider Last Name [facility] Referring Provider Specialty Nurse Pract itioner Referred Organization [facility] Referred Provider Herbie Arroyo Referred Address [address] [place], [place],[address] Referred Provider Specialty Neurology Referral Priority Routine [...] Diagnosis 1 Endometriosis (N80.9 ) Referral Organization [facility] Referring Provider First Name Lucila Referring Provider Last Name [facility] Referring Provider Specialty Nurse Pract itioner Referred Organization Joselito de la rosa [facility] Referred Address [address] [place] [place], [place],[address] Referred Provider Specialty Endocrinolog y Referral Priority [...] [facility] DATE CREATED AUTHOR AUTHOR'S MARY BAIRD 11/03/2023 [facility] DATE CREATED AUTHOR AUTHOR'S ORGANIZ ATION 11/20/2023 Joselito Bernal [facility] DATE CREATED AUTHOR AUTHOR'S ORGANIZ ATION 12/15/2023 [facility] DATE CREATED AUTHOR AUTHOR'S ORGANIZ ATION 01/22/2024 [facility] DATE CREATED AUTHOR AUTHOR'S ORGANIZ ATION 02/14/2024 [facility] EPIC REASON FOR VISIT (unrecogniz ed section and content) Reason Comments Consult Pt diagnosis with En dometriosis in 2018. Patient desire . Specialty Diagnoses / Procedures Referred By Contac t Referred To Contact PLAYGROUND [employer]MENT [employer] Diagnoses Endometriosis Lucila Arnett, KHADRA [address] [place] [address] [facility] [address] [place] [address] Referral ID Status Reason Start Date Expiration Date V isits Requested Visits Authorized [id number] New Request 10/23/2023 11/16/2024 1 1 Care Teams (unrecognized sec tion and content) Team Status: Active Member Role Status Dates Lucila Arnett APRN CREDIT CARD INTERVIEWER-C Primary Care Provider Active Team Status: Inactive Member Role Status Dates Lucila Arnett APRN CREDIT CARD INTERVIEWER-C Attending Provider Act vinicius Start: September 14, 2023 End: September 14, 2023 Team Status: Inactive Member Role Status Dates Lucila Arnett APRN CREDIT CARD INTERVIEWER-C Primary Care Provider, Attending Provider Active Start: October 17, 2023 End: October 17, 2023 Team Status: Inactive Member Role Status Dates Lucila Arnett APRN CREDIT CARD INTERVIEWER-C Primary Care Provider, Attending Provider Active Start: [...] BE BASED ON THE PRIMARY CLINICAL RECORDS. [facility] [employer] [facility]. provides no warranty or guarantee of the accuracy or completeness of information in this document.
[2024-02-20 00:07] LABS: AFP Value 47.9 ng/mL (.); Gestat. Age Based On As provided (.); Insulin Dep Diabetes No (.); Maternal Age At EDD 27.7 yr (.); OSBR Risk 1 IN 5748 (.); Results Report (.)
== END 2024-02-16 10:38 | disposition home or self-care (01) ==
LOC: LAB 10:38
PROVIDERS: PCP Nurse Practitioner Family; Visit Provider Obstetrics & Gynecology
DX: Z34.92 Encounter for supervision of normal pregnancy, unspecified, second trimester (principal); Z36.1 Encounter for antenatal screening for raised alphafetoprotein level
CPT/HCPCS: 36415; 82105

== ENCOUNTER 2024-03-13 10:50 | Outpatient (OUT) | payer OTHER, SELFPAY ==
--- NOTE | 2024-03-13 10:52 | US_ITS ---
[address] [address] Patient Name: COLTON VERMA MRN: [id number] date: 1995 Sex: F Assigned Patient Location: [facility] Current Patient Location: [facility] Accession/Order Number: [id number] Exam Date: 03/13/2024 10:53 Report Date: 03/13/2024 11:29 At the request of: WON LESTER Procedure: US OB cervical length EXAMINATION: US OB cervical length HISTORY: HISTORY OF PRE-TERM DELIVERY COMPARISON: 12/26/2023 FINDINGS: position: Cephalic Cervix: 4.5 cm closed Clinical age: 20 weeks 5 days US/US OB cervical length IMPRESSION: Closed cervix measuring 4.5 cm in length Electronically authenticated by: DARLINE ESPITIA Date: 03/13/2024 11:29
--- OUTSIDE RECORDS SUMMARY | 2024-03-13 11:08 | XMS_ITS | CCD ---
Author Organization [facility] Inform ion [facility] Care Team Providers Care Catering Operations Manager Name Role Phone TREVON, DR UPTON Admitting Unavailable MISC, DR DAVENPORT Primary Care Unavailable CRANBERRY, DR DARLINE Fitzgerald Consulting Unavailable TREVON, DR [...] DR UPTON Attending Unavailable Lucila Arnett Unavailable [phone] Unavailable Primary Care Provider Unavailabl e MISAL, EARLE Attending Unavailable LUCILA ARNETT Referring Unavailable LUCILA ARNETT Primary Care Physician [phone] KHADRA ARNETT Attending Unava ilable KHADRA ARNETT [...] Primary Care Unavailable TREVON, WON Referring Unavailable Hill Jacobsen DO Unavailable Unavailable TREVON, WON R Referring Unavailable VAN HOOK, BARI Attending Unavailable TREVON, WON R Referring Unavailable TREVON, WON R Referring Unavailable POLA HORNE Attending Unavailable TREVON, WON R Referring Unavailable TREVON, WON Attending Unavailable TREVON, WON Attending Unavailable TREVON, WON Attending Unavailable TREVON, WON Attending Unavailable TREVON, WON Attending Unavailable TREVON, WON Attending Unavailable Allergies Allergy Classification Reported Allergen(s) Allergy Type Date of Onset Reaction(s) Facility Opioid Agonists (1 source) traMADol Drug Allergy 0 [facility] Repository (6 sources) traMADol; Translations: [TRAMADOL] Drug Allergy 4 Unknown, Unknown Reaction [facility] (6 sources) Lavender Oil; Translations: [LAVENDER OIL] Drug allergy 4 Unknown [facility] Repository (1 source) lavender (Lavandula angustifolia) Allergy to substance 4 Unknown Reaction [facility] (1 source) GALCANEZUMAB-GN ; Translations: [GALCANEZUMAB-G [facility]] Propensity to adverse reactions to drug (disorder) [...] oral solution (1 source) alpha-Adrenergic Agonist, Uncompetitive T-qkdlnk-K-aspartate Receptor Antagonist, Sigma-1 Agonist Start: 09-30-2017 take [...] q6hr, # 10 tab(s), Refills(s) 0, Pharmacy: [facility] Start Date: 09/21/18 Status: Ordered Completed/Discontinued [...] Asthma (1 source) Asthma 10-31-2013 Chronic Endometriosis (13 sources) Endometriosis (clinical); Translations: [Endometriosis, unspecified] Onset: [...] 11-02-2023 Episodic Other complications of (1 source) Supervision of other high risk pregnancies, unspecified trimester; Translations: [Supervision of other high risk pregnancies, unspecified trimester] Onset: 01-21-2024 Episodic Other complications of (1 source) Abnormal ultrasonic finding on screening of mother; Translations: [Abnormal ultrasonic finding on screening of mother] Onset: 02-25-2024 Episodic Other complications of (1 source) Malformation of placenta, unspecified, second trimester; 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, unspecified, second trimester] Onset: 02-25-2024 Episodic Other complications of (1 source) with [...] unspecified] Onset: 04-29-2020 Episodic Residual codes; unclassified (2 sources) Personal history of other complications of , childbirth and the puerperium; Translations: [Personal history of other complications of , childbirth and the puerperium] Onset: 12-06-2023 Episodic Residual codes; unclassified (1 source) 18 weeks gestation of ; Translations: [18 weeks gestation of ] Onset: 02-25-2024 Episodic Unclassified (1 source) Details of family [...] Facility HCG.beta subunit Qnon 2023 hCG Quant [id number] mIU/mL Normal [facility] Comment on above: Order Comment: Pregn [...] method. Performed By: #### 2 1198-7 #### [facility] ([facility] LAB [address] [place] [address] [facility] hCG Quant 51486 mIU/mL Normal [facility] Comment on above: Order Comment: Pregn [...] method. Performed By: #### 2 1198-7 #### [facility] ([facility] LAB [address] [place] [address] HCG.beta subunit Qnon 2023 hCG Quant 21490 mIU/mL Normal [facility] Comment on above: Order Comment: Pregn [...] method. Performed By: #### 2 1198-7 #### [facility] ([facility] LAB [address] [place] [address] HCG.beta subunit Qnon 2023 hCG Quant 01479 mIU/mL Normal [facility] Comment on above: Order Comment: Pregn [...] method. Performed By: #### 2 1198-7 #### [facility] ([facility] [address] [place] [address] HCG.beta subunit Qnon 2023 hCG Quant 2709 mIU/mL Normal [facility] Comment on above: Order Comment: Pregn [...] method. Performed By: #### 2 1198-7 #### [facility] ([facility] [address] [place] [address] HCG.beta subunit Qnon 2023 hCG Quant 776 mIU/mL Normal [facility] Comment on above: Order Comment: Pregn [...] method. Performed By: #### 2 1198-7 #### [facility] ([facility] [address] [place] [address] HCG.beta subunit Qnon 2023 hCG Quant 250 mIU/mL Normal [facility] Comment on above: Order Comment: Pregn [...] method. Performed By: #### 2 1198-7 #### [facility] ([facility] LAB [address] [place] [address] .Thyroglobulin by IMAon Thyroglobulin [Mass/Vol] 5.0 ng/mL Invalid Interpretation Code 1.5-38.5 [facility] Comment on above: Result Comment: Acco rding [...] by John Vish Immunometric Assay Performed at: [facility] [address] [id number] PhD Johanny Nieto Performed By: #### 2 021545, [id number], [id number], [id number], [id number], [id number], [id number] #### [facility] [address] [place] [address] T3 Freeon 11-20-2023 Free T3 [Mass/Vol] 3.2 pg/mL Invalid Interpretation Code 2.0-4.4 [facility] Comment on above: Result Comment: Perf ormed at: [place] [id number] [place], [place] [id number] PhD Johanny Nieto Performed By: #### 2 578836, [id number], [id number], 4435312, [id number], [id number], [id number] #### [facility] [address] [place] [address] TgAb+Thyroglobulinon 024 Thyroglobulin Ab Qn [IU]/mL Invalid Interpretation Code 0.0-0.9 [facility] Comment on above: Result Comment: Thyr oglobulin Antibody measured by [facility] Methodology It should be noted that the presence of thyroglobulin antibodies may not be pathogenic nor diagnostic, especially at very low levels. The assay deputy treasurer has found that four percent of individuals without evidence of thyroid disease or autoimmunity will have positive TgAb levels up to 4 IU/mL. Performed at: [address] [id number] PhD Johanny Nieto Performed By: #### 2 485309, [id number], [id number], 1018898, [id number], [id number], [id number] #### [facility] [address] [place] [address] Thyroid Perox.tpo Abon 11-19 TPO Ab Qn [IU]/mL Invalid Interpretation Code 0-34 [facility] Comment on above: Result Comment: Perf ormed at: [facility] [address] [place], [place] [id number] PhD Johanny Nieto Performed By: #### 2 208253, [id number], 16468097, 4257669, [id number], [id number], [id number] #### [facility] [address] [place] [address] BhCG Quanton 11-19-2023 HCG.beta subunit Qn 86 m[IU]/mL High 1-3 [facility] Comment on above: Result Comment: 'F N ON < 1 - 3' ' 0.2 - 1 WEEK = 5 TO 50' ' 1 - 2 WEEKS = 50 - 500' ' 2 - 3 WEEKS = 100 - 5000' ' 3 - 4 WEEKS = 500 - 15864' ' 4 - 5 WEEKS = 1000 - 61284' ' 5 - 6 WEEKS = 33619 - 410642' ' 6 - 8 WEEKS = 50154 - 351880' ' 8 - 12 WEEKS = 37979 - 573440' Performed By: #### 2 036607 #### [facility] [address] [place] [address] CHEMISTRYOrdered By: SYSTEM SYSTEM on 11-19-2023 HCG.beta [...] 3 - 4 WEEKS = 500 - 66518' ' 4 - 5 WEEKS = 1000 - 59376' ' 5 - 6 WEEKS = 66749 - 833755' ' 6 - 8 WEEKS = 51212 - 788028' ' 8 - 12 WEEKS = 56404 - 100870' Iron [Mass/Vol] 161 ug/dL High 35 - 153 mcg/dL Remisol Chem Iron binding capacity [Mass/Vol] 316 ug/dL Normal 250 - 400 mcg/dL Remisol Chem Transferrin [Mass/Vol] 226 mg/dL Normal 200 - 370 mg/dL Remisol Chem TSH Qn 1.53 m[IU]/L Normal 0.34 - 5.60 mcIU/mL Remisol Chem Consent for Treatmenton Consent for Treatment [id number] .00TIFF Normal [facility] Ironon 11-19-2023 Iron [Mass/Vol] 161 microgram/dL High 35-153 Fis [facility] Comment on above: Performed By: #### 2 313215, [id number], 83359291, 5025221, 956697550, [id number], [id number] #### [facility] [address] [place] [address] Physician Orderon 11-19-2023 Physician Order [id number]#1 .00TIFF Normal [facility] TIBC Calculatedon 11-19-2023 Iron binding capacity [Mass/Vol] 316 microgram/dL Normal 250-400 [facility] Comment on above: Performed By: #### 2 074801, 82502376, 94999831, 8207942, 178393689, 354578197, [id number] #### [facility] [address] [place] [address] Transferrin [Mass/Vol] 226 mg/dL Normal 200-370 [facility] Comment on above: Performed By: #### 2 965775, 91233898, 44707511, 3804603, 915669971, 290435543, 14190049 #### [facility] [address] [place] [address] TSH With T4fr Reflexon 11-18 TSH Qn 1.53 m[IU]/L Normal 0.34-5.60 [facility] Comment on above: Performed By: #### 2 302700, 98104420, 46916665, 0788601, [id number], 104016580, 20827220 #### [facility] [address] [place] [address] TSHon 07-12-2020 TSH 0.756 uIU/mL Normal 0.470-4.680 [facility] Comment on above: Performed By: #### T SH #### [facility] [address] [place], [place] [address] Jayne Hamm TSH RANGE SEE BELOW Normal [facility] Comment on above: Result Comment: <0.3 4 UIU/ml HYPERTHYROID 0.34-5.60 UIU/ml EUTHYROID >5.60 UIU/ml HYPOTHYROID Performed By: #### T SH #### [facility] [address] [place] [id number] Jayne Noris CBC AUTO DIFFon 06-25-2020 BASO # 0.1 103/ul Normal 0.0-0.1 [facility] Comment on above: Performed By: #### C BC #### [facility] [address] [place] [id number] Jayne Noris Basophils/100 WBC (Bld) 1.2 % Normal 0.2-2.0 [facility] Comment on above: Performed By: #### C BC #### [facility] [address] [place] [address] Jayne Noris EO # 0.2 103/ul Normal 0.0-0.7 [facility] Comment on above: Performed By: #### C BC #### [facility] [address] [place] [address] Jayne Noris Eosinophils/100 WBC (Bld) 2.6 % Normal 0.9-7.0 [facility] Comment on above: Performed By: #### C BC #### [facility] [address] [place] [address] Jayne Noris Erythrocyte distribution width (RBC) [Ratio] 12.0 % Normal 11.0-15.0 [facility] Comment on above: Performed By: #### C BC #### [facility] [address] [place] [address] Jayne Noris Hematocrit (Bld) [Volume fraction] 40.7 % Normal 36.0-48.0 [facility] Comment on above: Performed By: #### C BC #### [facility] [address] [place] [address] Jayne Noris Hemoglobin (Bld) [Mass/Vol] 13.6 g/dL Normal 12.0-16.0 [facility] Comment on above: Performed By: #### C BC #### [facility] [address] [place] [address] Jayne Noris IG # 0.01 10e3/ul Normal 0.00-0.03 [facility] Comment on above: Performed By: #### C BC #### [facility] [address] [place] [id number] Jayne Noris IG % 0.2 % Normal 0.0-0.5 [facility] Comment on above: Performed By: #### C BC #### [facility] [address] [place], [place] [address] Jayne Noris LYMPH # 1.9 103/ul Normal 1.2-3.8 [facility] Comment on above: Performed By: #### C BC #### [facility] [address] [place], [place] [address] Jayne Noris Lymphocytes/100 WBC (Bld) 32.5 % Normal 20.5-60.0 [facility] Comment on above: Performed By: #### C BC #### [facility] [address] [place], [place] [address] Jayne Noris MANUAL DIFF REQ NO Normal [facility] Comment on above: Performed By: #### C BC #### [facility] [address] [place], [place] [address] Jayne Noris MCH (RBC) [Entitic mass] 31.3 pg Normal 26.7-34.0 [facility] Comment on above: Performed By: #### C BC #### [facility] [address] [place], [place] [address] Jayne Noris MCHC (RBC) [Mass/Vol] 33.4 g/dL Normal 29.9-35.2 [facility] Comment on above: Performed By: #### C BC #### [facility] [address] [place] [address] Jayne Noris MCV (RBC) [Entitic vol] 93.6 fL Normal 81.0-99.0 [facility] Comment on above: Performed By: #### C BC #### [facility] [address] [place], [place] [address] Jayne Noris MONO # 0.6 103/ul Normal 0.3-0.8 [facility] Comment on above: Performed By: #### C BC #### [facility] [address] [place], [place] [address] Jayne Noris Monocytes/100 WBC (Bld) 10.4 % Normal 1.7-12.0 [facility] Comment on above: Performed By: #### C BC #### [facility] [address] [place], [place] [address] Jayne Hamm NEUT # 3.1 103/ul Normal 1.4-6.5 [facility] Comment on above: Performed By: #### C BC #### [facility] [address] [place], [place] [address] Jayne Hamm Neutrophils/100 WBC (Bld) 53.1 % Normal 43.0-75.0 [facility] Comment on above: Performed By: #### C BC #### [facility] [address] [place], [place] [address] Jayne Hamm Platelet mean volume (Bld) [Entitic vol] 8.9 fL Critically low 9.5-13.5 [facility] Comment on above: Performed By: #### C BC #### [facility] [address] [place] [address] Jayne Hamm PLT 265 103/ul Normal 150-450 [facility] Comment on above: Performed By: #### C BC #### [facility] [address] [place], [place] [address] Jayne Hmam RBC 4.35 106/ul Normal 4.20-5.40 [facility] Comment on above: Performed By: #### C BC #### [facility] [address] [place], [place] [address] Jayne Hamm WBC 5.8 103/ul Normal 4.0-11.0 [facility] Comment on above: Performed By: #### C BC #### [facility] [address] [place], [place] [address] Jayne Hamm PREG QUANT HCGon 06-25-2020 HCG QUANT 1.00 mIU/mL Normal [facility] Comment on above: Performed By: #### P REGQNT #### [facility] [address] [place] [address] Jaynejeremías Hamm HCG RANGE SEE BELOW Normal [facility] Comment on above: Result Comment: 5-50 0-1 WEEK 40-300 1-2 WEEKS 100-1,000 2-3 WEEKS 500-6,000 3-4 WEEKS 5,000-200,000 1-2 MONTHS 10,000-100,000 2-3 MONTHS 3,000-50,000 2ND TRIMESTER 1,000-50,000 3RD TRIMESTER Performed By: #### P REGQNT #### [facility] [address] [place], [place] [address] Jayne Hamm PAP ACOG PANEL 2: 21 to 29on 05-06-2020 . . Normal [facility] Comment on above: Performed By: #### 4 [id number] #### [facility] [address] [place], [place] [address] Jayne Hamm Age Gdln ACOG Testing - [facility] Comment on above: Performed By: #### 4 [id number] #### [facility] [address] [place] [address] Jayne Hamm DIAGNOSIS: Comment [facility] Comment on above: Result Comment: NEGA TIVE FOR INTRAEPITHELIAL LESION OR MALIGNANCY. Performed By: #### 4 [id number] #### [facility] [address] [place], [place] [address] Jayne Hamm Methodology: Comment [facility] Comment on above: Result Comment: This liquid based SurePath(R) pap test was screened with the assistance of an image guided system. Performed By: #### 4 [id number] #### [facility] [address] [place], [place] [address] Jayne Hamm Note: Comment [facility] Comment on above: Result Comment: The Pap smear is a screening test designed to aid in the detection of premalignant and malignant conditions of the uterine cervix. It is not a diagnostic procedure and should not be used as the sole means of detecting cervical cancer. Both false-positive and false-negative reports do occur. . Performed By: #### 4 [id number] #### [facility] [address] [place] [address] Jayne Hamm Performed by: Comment [facility] Comment on above: Result Comment: Suman Rdz, Casting Assistant (ASCP) Performed By: #### 4 [id number] #### [facility] [address] [place] [address] Jayne Hamm Reflex Criteria: Comment Normal [facility] Comment on above: Result Comment: The HPV DNA reflex criteria were not met with this specimen result therefore, no HPV testing was performed. . Performed By: #### 4 [id number] #### [facility] [address] [place] [address] Jayne Hamm Specimen adequacy: Comment Normal [facility] Comment on above: Result Comment: Sati sfactory for evaluation. Endocervical and/or squamous metaplastic cells (endocervical component) are present. Performed By: #### 4 [id number] #### [facility] [address] [place] [address] Jayne Hamm US PELVIS AND TRANSVAGon US [...] by: DARLINE ESPITIA Date: 2020-04-30 14:54 Normal [facility] Vital Signs Date Time Vital Sign Value Performing Clinician Facility 12-10-2023 09:18-0400 Diastolic blood pressure 84 mm[Hg] Hill Jacobsen Work Phone: [facility] 12-10-2023 09:18-0400 Heart rate 101 /min Hill Jacobsen Work Phone: [facility] 12-10-2023 09:18-0400 Respiratory rate 12 /min Hill Jacobsen Work Phone: [facility] 12-10-2023 09:18-0400 Systolic blood pressure 132 mm[Hg] Hill Jacobsen Work Phone: [facility] 11-02-2023 14:27-0400 Body height 180.3 cm Earle Chen MD Work Phone: [facility] 11-02-2023 14:27-0400 Body mass index (BMI) [Ratio] 20.04 kg/m2 Earle Chen MD Work Phone: [facility] 11-02-2023 14:27-0400 Body weight 65.18 kg Earle Chen MD Work Phone: [facility] 11-02-2023 14:27-0400 Diastolic blood pressure 80 mm[Hg] Earle Chen MD Work Phone: [facility] 11-02-2023 14:27-0400 Systolic blood pressure 110 mm[Hg] Earle Chen MD Work Phone: [facility] 09-14-2023 11:30-0500 Body height 180.34 cm Lucila Arnett Other [facility] 09-14-2023 11:30-0500 Body mass index (BMI) [Ratio] 20.92 kg/m2 Lucila Arnett Other [facility] Other 09-14-2023 11:30-0500 Body weight 68.04 kg Lucila Arnett Other [facility] Other 09-14-2023 11:30-0500 Body weight 68.03 kg [facility] 09-14-2023 11:30-0500 Diastolic blood pressure 68 mm[Hg] Lucila Arnett Other [facility] 09-14-2023 11:30-0500 Respiratory rate 16 /min Lucila Arnett Other [employer] [facility] Other 09-14-2023 11:30-0500 SaO2% (BldA) [Mass fraction] 100 % Lucila Melquiades Other [employer] [facility] Other 09-14-2023 11:30-0500 Systolic blood pressure 110 mm[Hg] Lucila Arnett Other [facility] 08-03-2023 10:00-0500 Body height 180.34 cm Lucila Arnett Other [facility] [facility] Other 08-03-2023 10:00-0500 Body mass index (BMI) [Ratio] 20.78 kg/m2 Lucila Arnett Other [facility] [facility] Other 08-03-2023 10:00-0500 Body weight 67.59 kg Lucila Arnett Other [employer] Other 08-03-2023 10:00-0500 Diastolic blood pressure 66 mm[Hg] Lucila Arnett Other [employer] Other 08-03-2023 10:00-0500 SaO2% (BldA) [Mass fraction] 98 % Lucila Arnett Other [employer] Other 08-03-2023 10:00-0500 Systolic blood pressure 100 mm[Hg] Lucila Arnett Other [employer] Other Encounters Encounter Date Encounter Type Care Provider Facility Start: 02-28-2024 End: 02-28-2024 ambulatory WON TREVON Not Available Start: 02-25-2024 End: 02-25-2024 ambulatory WON R [facility] Start: 02-13-2024 End: 02-13-2024 ambulatory WON TREVON Not Available Start: 01-30-2024 End: 01-30-2024 ambulatory WON TREVON Not Available Start: 01-21-2024 End: 01-21[facility]: 01-17-[facility]24 End: 01-17-2024 ambulatory WON TREVON Not Available Start: 01-03-2024 End: 01-03-2024 ambulatory WON TREVON Not Available Start: 12-26-2023 End: 12-26-2023 ambulatory WON TREVON Not Available Start: 12-13-2023 End: 12-13-2023 ambulatory WON TREVON Not Available Start: 12-10-2023 End: 12-11-2023 ambulatory HAKEEM YODER [facility] Start: 12-10-2023 End: 12-10-2023 Encounter identifier Hill Jacobsen Work Phone: [place] Start: 12-06-2023 End: 12-07-2023 ambulatory HAKEEM YODER [facility] Start: 12-03-2023 End: 12-04-2023 ambulatory HAKEEM BEBA [facility] Start: 11-29-2023 End: 11-30-2023 ambulatory HAKEEM BEBA [facility] Start: 11-26-2023 End: 11-27-2023 ambulatory HAKEEM BEBA [facility] Start: 11-23-2023 End: 11-24-2023 ambulatory HAKEEM BEBA [facility] Start: 11-21-2023 End: 11-22-2023 ambulatory HAKEEM BEBA [facility] Start: 11-19-2023 End: 11-20-2023 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 [place] Start: 11-19-2023 End: 11-19-2023 Patient encounter procedure LUCILA ARNETT [facility] Start: 11-14-2023 End: 11-14-2023 ambulatory [facility] Work Phone: Start: 11-14-2023 End: 11-14-2023 Patient encounter procedure [facility] Physician [facility] Work Phone: Start: 11-02-2023 ambulatory EARLE CHEN Facility:[facility] Start: 11-02-2023 End: 11-02-2023 Office outpatient new 60 minutes Earle Chen MD Work Phone: [facility] [place] Comment on above: Endometriosis (Prima ry Dx); Pelvic pain; Myalgia of pelvic floor; Dysmenorrhea; Dyspareunia in female; Nausea and vomiting, unspecified vomiting type; Bladder pain; Anxiety Start: 10-17-2023 End: 10-17-2023 Patient encounter procedure [facility] Physician [facility] Work Phone: Start: 09-14-2023 End: 09-14-2023 ambulatory Lucila Arnett Other [employer] Other Start: 09-14-2023 Office outpatient vi sit 25 minutes Lucila Arnett [facility] Start: 09-14-2023 End: 09-14-2023 Patient encounter procedure [facility] Physician [facility]- Start: 08-09-2023 End: 08-09-2023 ambulatory Lucila Arnett Other [employer] Other Start: 08-09-2023 Telephone encounter Lucila krueger [facility] Start: 08-03-2023 End: 08-03-2023 ambulatory Lucila Arnett Other [employer] Other Start: 08-03-2023 Office outpatient ne w 30 minutes Lucila Arnett [facility] Start: 12-15-2023 Telephone encounter Lucila Rohrbac her [employer] Start: 07-12-2020 End: 07-13-[address] WON LESTER Facility:[facility] Start: 06-25-2020 End: 06-25-[address] WON LESTER Facility:[facility] Start: 04-30-2020 End: 05-01-[address] WON LESTER Facility:[facility] Start: 04-29-2020 End: 04-29-[address] WON LESTER Facility:[facility] Procedures Date Procedure Procedure Detail Performing Clinician Start: 08-20-2004 Tooth extraction MADI ARNETT uterine ablation LUCILA MARLEN BAH Plan of Treatment Date Care Activity Detail Author Start: 11-02-2023 End: 11-01-2024 MR Pelvis WO and W contrast IV MRI PELVIS WITH AND WITHOUT CONTRAST Imaging Routine Endometriosis Pelvic pain Expected: 11/02/2023, Expires: 11/01/2024 [facility] Comment on above: Expected: 11/02/2023 , Expires: 11/01/2024 Start: 10-17-2023 Patient referral [facility] Work Phone: Start: 04-20-2023 COVID-19 VACCINE ( season) COVID-19 VACCINE ( season) [facility] Start: 04-20-2023 Influenza vaccination INFLUENZA VACC INE (#1) [facility] Start: 2017 Screening for malign ant neoplasm of cervix CERVICAL CANCER SCREENING DISCUSSION [facility] Start: 11-08-2015 Hepatitis B vaccination HEP B VACCINE (1 of 3 - 19+ 3-dose series) [facility] Start: 11-08-2015 Third diphtheria, te tanus and acellular pertussis (DTaP) vaccination TDAP (ADULT) [facility] Start: 2012 Screening for Chlamy david trachomatis CHLAMYDIA SCREEN [facility] Start: 11-08-2011 HIV screening HIV SCREENING DISCUSSION [facility] Start: 11-08-2011 Vaccination for kale n papillomavirus HPV VACCINE ADOL (1 - 3-dose series) [facility] Start: 1996 Hepatitis C screening HEPATITI S C VIRUS SCREENING [facility] Start: 1996 Screening for Chlamy david trachomatis GONORRHEA SCREEN [facility] Start: 1996 Tetanus vaccination TETANUS [facility] Patient referral [facility] Work Phone: Payers Date Payer Category Payer [employer] [id number] 2023 [employer] [facility] [id number] 2023-Present [address] [place] [address] [id number]. [id number] 2023 [employer] others) [id number] 1996 Unknown [id number] 2.16.840.1.028528.3.579.2. 593 1996 Unknown [id number] 2.16.840.1.263825.3.579.2. 593 1996 Unknown [id number] 2.16.840.1.505287.3.579.2. 593 1996 Unknown [id number] 2.16.840.1.441749.3.579.2. 593 1996 Unknown [id number] 2.16.840.1.630242.3.579.2. 593 1996 Unknown [id number] 2.16.840.1.819786.3.579.2. 594 1996 Unknown [id number] 2.16.840.1.696055.3.579.2. 727 1996 Unknown [id number] 2.16.840.1.182890.3.579.2. 1143 1996 Unknown [id number] 2.16.840.1.398614.3.579.2. 1143 1996 Unknown [id number] 2.16.840.1.815043.3.579.2. 1143 1996 Unknown [id number] 2.16.840.1.695626.3.579.2. 114 1996 Unknown [id number] 2.16.840.1.349142.3.579.2. 114 1996 Unknown [id number] 2.16.840.1.318290.3.579.2. 114 1996 Unknown [id number] 2.16.840.1.176464.3.579.2. 1142 1996 Unknown [id number] 2.16.840.1.834642.3.579.2. 1285 1996 Unknown [id number] 2.16.840.1.786349.3.579.2. 1285 1996 Unknown [id number] 2.16.840.1.691683.3.579.2. 1285 1996 Unknown [id number] 2.16.840.1.044126.3.579.2. 1285 1996 Unknown [id number] 2.16.840.1.999499.3.579.2. 1258 1996 Unknown [id number] 2.16.840.1.376925.3.579.2. 1258 1996 Unknown [id number] 2.16.840.1.115451.3.579.2. 1258 1996 Unknown [id number] 2.16.840.1.639686.3.579.2. 1258 1996 Unknown [id number] 2.16.840.1.564035.3.579.2. 1258 1996 Unknown [id number] 2.16.840.1.690528.3.579.2. 1258 1996 Unknown [id number] 2.16.840.1.259275.3.579.2. 1259 1959 [employer] [id number] 1959 [employer] [id number] [employer] [id number] 2.16.840.1.288509.19 Social History Date Type Detail Facility Start: 11-02-2023 Sex Assigned At [facility] Start: 09-30-2017 End: 11-02-2023 Tobacco smoking status NHIS Never smoked tobacco [facility] Start: 11-02-2023 Tobacco use and exposure Smokeless tobacco non-user [facility] Start: 11-02-2023 Alcoholic beverage intake Lifetime non-drinker (finding) [facility] Start: 11-02-2023 History of Social function [facility] Start: 1996 Sex assigned at Not on file [facility] Start: 1996 Sex Assigned At Female [facility] Start: 12-10-2023 Tobacco smoking status NHIS Unknown if ever smoked [facility] Start: 12-10-2023 Alcohol intake Alcohol Use Details [facility] Start: 09-04-2023 Sexual Orientation Lesbian, lynch or homosexual [facility] Clinical Notes 06-25-2020 to 11-19-2023 Earle Chen MD - 11/02/2023 2:30 PM EDT Note Date & Type Note Facility 11-19-2023 Evaluation + Plan note Diagnostic Tests PendingT3 Free 11/19/23Thyroid Perox.tpo Ab 11/19/23TgAb+Thyroglobulin,CHING or ARLEN 11/19/23 [facility] 11-02-2023 History of Present illness Narrative GYNECOLOGY CONSULT NOTE REASON FOR VISIT Endometriosis Pelvic pain HISTORY OF PRESENT ILLNESS Ms. Medrano is a 27 y.o. (NSVDx2) who presents for consultation regarding endometriosis, pelvic pain. Records review: Moved back from [place] to [place] (2021) First diagnosed in 2017 Has had [...] tried to get her medical records in [place], but they would not send them. She [...] She had a women's health doctor in [facility] who told her she had stage IV endometriosis. She is no longer on the progesterone. Has tried vaginal valium does not help Her 2 previous pregnancies were with a previous partner. She and her are trying for another now. No BA in [place] Partner has not had a SA yet [...] patient today. documented in this encounter [facility] 09-14-2023 Evaluation note Encounter Date Diagnosis [...] educated on the risks and benefits of alf use. Risk assessment was done. Patient is [...] Pt to call with any worsening symptoms. 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 Risk assessment was done as well [...] intractable, unspecified migraine type (ICD-10 - G43.909) [employer] Other 11-06-2020 NoteOPERATIVE NOTE OPERATION DATE: 06-25-20 ANESTHETIC:General. ERP ENGINEER:None. PREOPERATIVE DIAGNOSIS: 1. Dyspareunia. 2. Right and [...] lap, and needle counts were correct x2. [facility] Signed and Approved by: DR WON LESTER . 07/30/2020 13:02:00[facility] note* Clinical Note Date No Information [facility] Work Phone: Discharge summary* Clinical Note Date No Information [facility] Work Phone: [facility] Other [facility]* Diagnosis Endometriosis- Primary Endometriosis, site unspecified Pelvic pain Unspecified symptom associated with female genital organs Myalgia of pelvic floor Dysmenorrhea Dyspareunia in female Nausea and vomiting, unspecified vomiting type Bladder pain Other symptoms involving urinary system Anxiety Anxiety state, unspecified [facility] Onset Date Resolution Status Depression acute Generalized anxiety disorder acute Obsessive compulsive disorder acute PTSD (post-traumatic stress disorder) acute Depression acute Endometriosis acute Generalized anxiety disorder acute Obsessive compulsive disorder acute PTSD (post-traumatic stress disorder) acute TBI (traumatic brain injury) acute [facility] Work Phone: Evaluation note* Type Assessment Date No Information [facility] Phone: History and physical note* Clinical Note Date No Information [facility] Phone: History general Narrative - Reported* Type Description Date Medical History Anxiety Medical History Stage 4 Endometriosis Medical History Depression with manic episodes Medical History OCD Medical History PTSD Medical History TBI Surgical History Endometriosis surgery x2 Surgical History Viola teeth Surgical History Injections in cervix [facility] Other History of Present illness Narrative* Encounter Date Complaint History Of Prese nt Illness No Information [facility] Phone: Hospital course Narrative No data available for this section [facility] No data available for this section [facility] Date Instruction Additional Infor mation No Information [facility] Phone: Progress note No data available for this section [facility] Clinical Note Date No Information [facility] Phone: Reason for referral (narrative)* Consultation (Routine) - New Request Specialty Diagnoses / Procedures Referred By Contac t Referred To Contact Psychology Diagnoses Pelvic pain Anxiety Earle Chen MD [address] [place] [address] Oksana Luu, PhD [address] [place] [address] Referral ID Status Reason Start Date Expiration Date V isits Requested Visits Authorized [id number] New Request 11/02/2023 11/26/2024 1 1 * Consultation (Routine) - New Request Specialty Diagnoses / Procedures Referred By Contac t Referred To Contact Integrative Medicine Diagnoses Pelvic pain Nausea and vomiting, unspecified vomiting type Earle Chen MD [address] [place] [address] Referral ID Status Reason Start Date Expiration Date V isits Requested Visits Authorized [id number] New Request 11/02/2023 11/26/2024 1 1 * Consultation (Routine) - New Request Specialty Diagnoses / Procedures Referred By Contac t Referred To Contact Gynecology Diagnoses Pelvic pain Myalgia of pelvic floor Bladder pain Earle Chen MD [address] [place] [address] Referral ID Status Reason Start Date Expiration Date V isits Requested Visits Authorized [id number] New Request 11/02/2023 11/26/2024 1 1 * MRI/CAT Scan (Routine) - New Request Specialty Diagnoses / Procedures Referred By Contac t Referred To Contact Diagnoses Endometriosis Pelvic pain Procedures MRI PELVIS WITH AND WITHOUT CONTRAST AL MRI, PELVIS, COMBO Earle Chen MD [address] [place] [address] Referral ID Status Reason Start Date Expiration Date V isits Requested Visits Authorized [id number] New Request 11/02/2023 11/26/2024 [address] [facility] for referral (narrative)* Reason For Referral No Information [facility] Work Phone: Summary Purpose Family History No [...] Diagnosis 1 Endometriosis (N80.9 ) Referral Organization [facility] [employer] Referring Provider First Name Lucila Referring Provider Last Name Melquiades Referring Provider Specialty Nurse Pract itioner Referred Organization [facility] Referred Provider Jena Suresh Referred Address ,[place], [place],[address] Referred Provider Specialty OB - Gynecol ogy [...] intractable, unspecified migraine type (G43.909) Referral Organization [facility] [employer] Referring Provider First Name Lucila Referring Provider Last Name Melquiades Referring Provider Specialty Nurse Pract itmargie Referred Organization [facility] Referred Provider Herbie Arroyo Referred Address [address] [place], [place],[address] Referred Provider Specialty Neurology Referral Priority Routine General Notes Lesley Bowman 01:18:58 PM >pt has west. we do not take this insurance. we take east. pt will need to update this with if she has relocated or only here for a short period of time. I called pt but her mail box is full. Reason *FU 08/[address] Cramer -- Endocrinology Diagnosis 1 Endometriosis (N80.9 ) Referral Organization [facility] Referring Provider First Name Lucila Referring Provider Last Name Melquiades Referring Provider Specialty Nurse Pract itionealaina Referred Organization [facility] Referred Address [address] [place], [place],[address] Referred Provider Specialty Endocrinolog y Referral Priority [...] and content) DATE CREATED AUTHOR 12/15/[address] [facility] DATE CREATED AUTHOR AUTHOR'S ORGANIZ ATION 11/03/2023 [facility] DATE CREATED AUTHOR AUTHOR'S ORGANIZ ATION 11/20/2023 [facility] DATE CREATED AUTHOR AUTHOR'S ORGANIZ ATION 12/15/2023 [facility] DATE CREATED AUTHOR AUTHOR'S ORGANIZ ATION 03/03/2024 [facility] DATE CREATED AUTHOR AUTHOR'S ORGANIZ ATION 03/05/2024 [facility] d[facility] Specialists EPIC REASON FOR VISIT (unrecogniz ed section and content) Reason Comments Consult Pt diagnosis with En dometriosis in 2018. Patient desire . Specialty Diagnoses / Procedures Referred By Harris t Referred To Contact TEST ARCHITECT Diagnoses Endometriosis Lucila Arnett, KHADRA [address] [address] [facility] [address] [place] [address] Referral ID Status Reason Start Date Expiration Date V isits Requested Visits Authorized [id number] New Request 10/23/2023 11/16/2024 1 1 Care Teams (unrecognized sec tion and content) Team Status: Active Member Role Status Dates Lucila Arnett APRN SHUTTLE CAR OPERATOR-C Primary Care Provider Active Team Status: Inactive Member Role Status Dates Lucila Arnett APRN SHUTTLE CAR OPERATOR-C Attending Provider Act vinicius Start: September 14, 2023 End: September 14, 2023 Team Status: Inactive Member Role Status Dates Lucila Arnett APRN SHUTTLE CAR OPERATOR-C Primary Care Provider, Attending Provider Active Start: October 17, 2023 End: October 17, 2023 Team Status: Inactive Member Role Status Dates Lucila Arnett APRN SHUTTLE CAR OPERATOR-C Primary Care Provider, Attending Provider Active Start: [...] BE BASED ON THE PRIMARY CLINICAL RECORDS. [employer] provides no warranty or guarantee of the accuracy or completeness of information in this document.
== END 2024-03-13 10:51 | disposition home or self-care (01) ==
LOC: NOMS 10:50
PROVIDERS: PCP Nurse Practitioner Family; Visit Provider Obstetrics & Gynecology
DX: Z36.86 Encounter for antenatal screening for cervical length (principal); O09.891 Supervision of other high risk pregnancies, first trimester; Z3A.20 20 weeks gestation of pregnancy
CPT/HCPCS: 76817

== ENCOUNTER 2024-04-24 08:58 | Outpatient (OUT) | payer MEDICAID, SELFPAY ==
--- OUTSIDE RECORDS SUMMARY | 2024-04-24 09:21 | XMS_ITS | CCD ---
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 Name Role Phone TREVON, DR UPTON Admitting Unavailable MISC, DR DAVENPORT Primary Care Unavailable NUPUR, DR DARLINE Fitzgerald Consult[employer] Unavailable TREVON, DR [...] DR UPTON Attending Unavailable Lucila Arnett Unavailable [phone] Unavailable Primary Care Provider Unavailabl e MISAL, EARLE Attending Unavailable LUCILA ARNETT Referring Unavailable LUCILA ARNETT Primary Care Physician KHADRA ARENTT Attending Unava ilable KHADRA ARNETT Admitting Unava [...] Referring Unavailable TREVON, WON R Referring Unavailable TREVON, WON R Referring Unavailable TREVON, WON Attending Unavailable TREVON, WON Attending Unavailable TREVON, WON Attending Unavailable TREVON, WON Attending Unavailable TREVON, WON Attending Unavailable TREVON, WON Attending Unavailable EPDRO TABOR Attending Unavailable TERVON, WON Attending Unavailable TREVON, WON Attending Unavailable Allergies Allergy Classification Reported Allergen(s) Allergy Type Date of Onset Reaction(s) Facility Opioid Agonists (1 source) traMADol Drug Allergy 0 [facility] (6 sources) traMADol; Translations: [TRAMADOL] Drug Allergy 4 Unknown, Unknown Reaction [facility] (6 sources) Lavender Oil; Translations: [LAVENDER OIL] Drug allergy 4 Unknown [facility] (1 source) lavender (Lavandula angustifolia) Allergy to substance 4 Unknown Reaction [facility] (1 source) GALCANEZUMAB-GN LM; Translations: [GALCANEZUMAB-G NLM] [...] oral solution (1 source) alpha-Adrenergic Agonist, Uncompetitive Y-qzsvuw-N-aspartate Receptor Antagonist, Sigma-1 Agonist Start: 09-30-2017 take [...] 10 tab(s), Refills(s) 0, Pharmacy: [facility] 1984 Start Date: 09/21/18 Status: Ordered [...] conditions (not mental disorders or infectious disease) (8 sources) Encounter for screening for malignant neoplasm of cervix; Translations: [Encounter for other screening follow-up] Onset: 04-29-2020 Episodic Residual codes; unclassified (2 [...] Facility HCG.beta subunit Qnon 2023 hCG Quant [id number] mIU/mL Normal [facility] Comment on above: Order Comment: Pregn phill [...] method. Performed By: #### 2 1198-7 #### [facility] [address] [place] [address] HCG.beta subunit Qnon 2023 hCG Quant 08306 mIU/mL Normal [facility] Comment on above: Order Comment: Pregn [...] method. Performed By: #### 2 1198-7 #### [facility] [address] [place] [address] HCG.beta subunit Qnon 2023 hCG Quant 40779 mIU/mL Normal [facility] Comment on above: Order Comment: Pregn [...] method. Performed By: #### 2 1198-7 #### [facility] [address] [place] [address] HCG.beta subunit Qnon 2023 hCG Quant 70989 mIU/mL Normal [facility] Comment on above: Order Comment: Pregn [...] method. Performed By: #### 2 1198-7 #### [facility] [address] [place] [address] HCG.beta subunit Qnon 2023 hCG Quant 2709 mIU/mL Normal [facility] Comment on above: Order Comment: Pregn [...] method. Performed By: #### 2 1198-7 #### [facility] [address] [place] [address] HCG.beta subunit Qnon 2023 hCG Quant 776 mIU/mL Normal [facility] Comment on above: Order Comment: Pregn [...] method. Performed By: #### 2 1198-7 #### [facility] [address] [place] [address] HCG.beta subunit Qnon 2023 hCG Quant 250 mIU/mL Normal [facility] Comment on above: Order Comment: Pregn [...] method. Performed By: #### 2 1198-7 #### [facility] [address] [place] [address] .Thyroglobulin by IMAon Thyroglobulin [Mass/Vol] 5.0 ng/mL Invalid Interpretation Code 1.5-38.5 [facility] Comment on above: Result Comment: Acco [...] by John Vish Immunometric Assay Performed at: [facility] [id number] PhD Johanny Nieto Performed By: #### 2 701420, [id number], [id number], [id number], [id number], [id number], [id number] #### [facility] [address] [place] [address] T3 Freeon 11-20-2023 Free T3 [Mass/Vol] 3.2 pg/mL Invalid Interpretation Code 2.0-4.4 [facility] Comment on above: Result Comment: Perf ormed at: [address] [id number] PhD Johanny Nieto Performed By: #### 2 273611, [id number], [id number], [id number], [id number], [id number], [id number] #### [facility] [address] [place] [address] TgAb+Thyroglobulinon 024 Thyroglobulin Ab Qn [IU]/mL Invalid Interpretation Code 0.0-0.9 [facility] Comment on above: Result Comment: Thyr oglobulin Antibody measured by [employer] Methodology It should be noted that the presence of thyroglobulin antibodies may not be pathogenic nor diagnostic, especially at very low levels. The assay office messenger has found that four percent of individuals without evidence of thyroid disease or autoimmunity will have positive TgAb levels up to 4 IU/mL. Performed at: [address] [id number] PhD Johanny Nieto Performed By: #### 2 736905, [id number], [id number], 8385157, [id number], [id number], [id number] #### [facility] [address] [place] [address] Thyroid Perox.tpo Abon 11-19 TPO Ab Qn [IU]/mL Invalid Interpretation Code 0-34 [facility] Comment on above: Result Comment: Perf ormed at: [address] [id number] PhD Johanny Nieto Performed By: #### 2 041821, [id number], 68447770, 9764798, [id number], [id number], [id number] #### [facility] [address] [place] [address] [facility] Quanton 11-19-2023 HCG.beta subunit Qn 86 m[IU]/mL High 1-3 Fish er [facility] Comment on above: Result Comment: 'F N ON < 1 - 3' ' 0.2 - 1 WEEK = 5 TO 50' ' 1 - 2 WEEKS = 50 - 500' ' 2 - 3 WEEKS = 100 - 5000' ' 3 - 4 WEEKS = 500 - 70963' ' 4 - 5 WEEKS = 1000 - 49890' ' 5 - 6 WEEKS = 35348 - 009342' ' 6 - 8 WEEKS = 86161 - 441597' ' 8 - 12 WEEKS = 71675 - 954778' Performed By: #### 2 [id number] #### [facility] [address] [place] [address] CHEMISTRYOrdered By: SYSTEM SYSTEM on 11-19-2023 HCG.beta [...] 3 - 4 WEEKS = 500 - 12022' ' 4 - 5 WEEKS = 1000 - 19514' ' 5 - 6 WEEKS = 32888 - 309573' ' 6 - 8 WEEKS = 14682 - 435510' ' 8 - 12 WEEKS = 96335 - 237946' Iron [Mass/Vol] 161 ug/dL High 35 - 153 mcg/dL Remisol Chem Iron binding capacity [Mass/Vol] 316 ug/dL Normal 250 - 400 mcg/dL Remisol Chem Transferrin [Mass/Vol] 226 mg/dL Normal 200 - 370 mg/dL Remisol Chem TSH Qn 1.53 m[IU]/L Normal 0.34 - 5.60 mcIU/mL Remisol Chem Consent for Treatmenton Consent for Treatment [id number] .00TIFF Normal [facility] Ironon 11-19-2023 Iron [Mass/Vol] 161 microgram/dL High 35-153 [facility] Comment on above: Performed By: #### 2 229745, 24162846, 52735850, 2409163, 213752115, [id number], [id number] #### [facility] [address] [place] [address] Physician Orderon 11-19-2023 Physician Order [id number] .00TIFF Normal [facility] TIBC Calculatedon 11-19-2023 Iron binding capacity [Mass/Vol] 316 microgram/dL Normal 250-400 [facility] Comment on above: Performed By: #### 2 854255, [id number], 88655564, 1607460, 382478131, [id number], [id number] #### [facility] [address] [place] [address] Transferrin [Mass/Vol] 226 mg/dL Normal 200-370 [facility] Comment on above: Performed By: #### 2 295703, 90182343, 95792482, 0508586, 168714219, [id number], [id number] #### [facility] [address] [place] [address] TSH With T4fr Reflexon 11-18 TSH Qn 1.53 m[IU]/L Normal 0.34-5.60 [facility] Comment on above: Performed By: #### 2 060324, 12703653, 84189032, 8300659, 990191063, 451189285, 04620708 #### [facility] [address] [place] [address] TSHon 07-12-2020 TSH 0.756 uIU/mL Normal 0.470-4.680 [facility] Comment on above: Performed By: #### T SH #### [facility] [address] [place], [place] [address] Jayne Hamm TSH RANGE SEE BELOW Normal [facility] Comment on above: Result Comment: <0.3 4 UIU/ml HYPERTHYROID 0.34-5.60 UIU/ml EUTHYROID >5.60 UIU/ml HYPOTHYROID Performed By: #### T SH #### [facility] [address] [place], [place] [id number] Jayne Noris CBC AUTO DIFFon 06-25-2020 BASO # 0.1 103/ul Normal 0.0-0.1 [facility] Comment on above: Performed By: #### C BC #### [facility] [address] [place] [address] Jayne Noris Basophils/100 WBC (Bld) 1.2 % Normal 0.2-2.0 [facility] Comment on above: Performed By: #### C BC #### [facility] [address] [place] [address] Jayne Noris EO # 0.2 103/ul Normal 0.0-0.7 [facility] Comment on above: Performed By: #### C BC #### [facility] [address] [place] [address] Jayne Noris Eosinophils/100 WBC (Bld) 2.6 % Normal 0.9-7.0 [facility] Comment on above: Performed By: #### C BC #### [facility] [address] [place] [address] Jayne Noris Erythrocyte distribution width (RBC) [Ratio] 12.0 % Normal 11.0-15.0 [facility] Comment on above: Performed By: #### C BC #### [facility] [address] [place] [address] Jayne Noris Hematocrit (Bld) [Volume fraction] 40.7 % Normal 36.0-48.0 [facility] Comment on above: Performed By: #### C BC #### [facility] [address] [place], [place] [id number] Jayne Noris Hemoglobin (Bld) [Mass/Vol] 13.6 g/dL Normal 12.0-16.0 [facility] Comment on above: Performed By: #### C BC #### [facility] [address] [place] [address] Jaynejeremías Hamm IG # 0.01 10e3/ul Normal 0.00-0.03 [facility] Comment on above: Performed By: #### C BC #### [facility] [address] [place] [address] Jaynejeremías Hamm IG % 0.2 % Normal 0.0-0.5 [facility] Comment on above: Performed By: #### C BC #### [facility] [address] [place] [address] Jaynejeremías Hamm LYMPH # 1.9 103/ul Normal 1.2-3.8 [facility] Comment on above: Performed By: #### C BC #### [facility] [address] [place] [address] Jayne Hamm Lymphocytes/100 WBC (Bld) 32.5 % Normal 20.5-60.0 [facility] Comment on above: Performed By: #### C BC #### [facility] [address] [place] [address] Jayne Hamm MANUAL DIFF REQ NO Normal [facility] Comment on above: Performed By: #### C BC #### [facility] [address] [place] [address] Jayne Hamm MCH (RBC) [Entitic mass] 31.3 pg Normal 26.7-34.0 [facility] Comment on above: Performed By: #### C BC #### [facility] [address] [place] [address] Jayne Hamm MCHC (RBC) [Mass/Vol] 33.4 g/dL Normal 29.9-35.2 [facility] Comment on above: Performed By: #### C BC #### [facility] [address] [place] [address] Jayne Hamm MCV (RBC) [Entitic vol] 93.6 fL Normal 81.0-99.0 [facility] Comment on above: Performed By: #### C BC #### [facility] [address] [place] [address] Jaynejeremías Cruzen MONO # 0.6 103/ul Normal 0.3-0.8 [facility] Comment on above: Performed By: #### C BC #### [facility] [address] [place] [id number] Jayne Cruzen Monocytes/100 WBC (Bld) 10.4 % Normal 1.7-12.0 [facility] Comment on above: Performed By: #### C BC #### [facility] [address] [place] [id number] Jaynejeremías Cruzen NEUT # 3.1 103/ul Normal 1.4-6.5 [facility] Comment on above: Performed By: #### C BC #### [facility] [address] [place], [place] [id number] Jayne Noris Neutrophils/100 WBC (Bld) 53.1 % Normal 43.0-75.0 [facility] Comment on above: Performed By: #### C BC #### [facility] [address] [place], [place] [id number] Jaynejeremías Hamm Platelet mean volume (Bld) [Entitic vol] 8.9 fL Critically low 9.5-13.5 [facility] Comment on above: Performed By: #### C BC #### [facility] [address] [place], [place] [id number] Jayne Noris PLT 265 103/ul Normal 150-450 [facility] Comment on above: Performed By: #### C BC #### [facility] [address] [place] [address] Jayne Noris RBC 4.35 106/ul Normal 4.20-5.40 [facility] Comment on above: Performed By: #### C BC #### [facility] [address] [place], [place] [id number] Jayne Noris WBC 5.8 103/ul Normal 4.0-11.0 [facility] Comment on above: Performed By: #### C BC #### [facility] [address] [place], [place] [id number] Jayne Noris PREG QUANT HCGon 06-25-2020 HCG QUANT 1.00 mIU/mL Normal [facility] Comment on above: Performed By: #### P REGQNT #### [facility] [address] [place] [id number] Jaynejeremías Hamm HCG RANGE SEE BELOW [facility] Comment on above: Result Comment: 5-50 0-1 WEEK 40-300 1-2 WEEKS 100-1,000 2-3 WEEKS 500-6,000 3-4 WEEKS 5,000-200,000 1-2 MONTHS 10,000-100,000 2-3 MONTHS 3,000-50,000 2ND TRIMESTER 1,000-50,000 3RD TRIMESTER Performed By: #### P REGQNT #### [facility] [address] [place] [id number] Jaynejeremías Hamm PAP ACOG PANEL 2: 21 to 29on 05-06-2020 . . Normal [facility] Comment on above: Performed By: #### 4 [id number] #### [facility] [address] [place], [place] [id number] Jayne Hamm Age Gdln ACOG Testing 21-29 [facility] Comment on above: Performed By: #### 4 [id number] #### [facility] [address] [place], [place] [id number] Jaynejeremías Hamm DIAGNOSIS: Comment Normal [facility] Comment on above: Result Comment: NEGA TIVE FOR INTRAEPITHELIAL LESION OR MALIGNANCY. Performed By: #### 4 [id number] #### [facility] [address] [place], [place] [id number] Jaynejeremías Hamm Methodology: Comment [facility] Comment on above: Result Comment: This liquid based SurePath(R) pap test was screened with the assistance of an image guided system. Performed By: #### 4 [id number] #### [facility] [address] [place], [place] [id number] Jaynejeremías Hamm Note: Comment [facility] Comment on above: Result Comment: The Pap smear is a screening test designed to aid in the detection of premalignant and malignant conditions of the uterine cervix. It is not a diagnostic procedure and should not be used as the sole means of detecting cervical cancer. Both false-positive and false-negative reports do occur. . Performed By: #### 4 [id number] #### [facility] [address] [place] [address] Jayne Hamm Performed by: Comment Normal [facility] Comment on above: Result Comment: Suman Rdz, Final Cigar And Box Examiner (ASCP) Performed By: #### 4 [id number] #### [facility] [address] [place] [address] Jayne Hamm Reflex Criteria: Comment Normal [facility] Comment on above: Result Comment: The HPV DNA reflex criteria were not met with this specimen result therefore, no HPV testing was performed. . Performed By: #### 4 [id number] #### [facility] [address] [place], [place] [address] Jayne Hamm Specimen adequacy: Comment Normal [facility] Comment on above: Result Comment: Sati sfactory for evaluation. Endocervical and/or squamous metaplastic cells (endocervical component) are present. Performed By: #### 4 [id number] #### [facility] [address] [place] [address] Jayne Hamm US PELVIS AND TRANSVAGon US [...] by: DARLINE ESPITIA Date: 2020-04-30 14:54 Normal [facility] Vital Signs Date Time Vital Sign Value Performing Clinician Facility 12-10-2023 09:18-0400 Diastolic blood pressure 84 mm[Hg] Hill Jacobsen Work Phone: [facility] 12-10-2023 09:18-0400 Heart rate 101 /min Hill Ann-Marie Work Phone: [facility] 12-10-2023 09:18-0400 Respiratory rate 12 /min Hill Jacobsen Work Phone: [facility] 12-10-2023 09:18-0400 Systolic blood pressure 132 mm[Hg] Hill Jacobsen Work Phone: [facility] 11-02-2023 14:27-0400 Body height 180.3 cm Earle Chen MD Work Phone: [facility] 11-02-2023 14:27-0400 Body mass index (BMI) [Ratio] 20.04 kg/m2 Earle Chen MD Work Phone: [facility] 11-02-2023 14:27-0400 Body weight 65.18 kg Earle Chen MD Work Phone: [facility] 11-02-2023 14:27-0400 Diastolic blood pressure 80 mm[Hg] Earle Chen MD Work Phone: [facility] 11-02-2023 14:27-0400 Systolic blood pressure 110 mm[Hg] Earle Chen MD Work Phone: [facility] 09-14-2023 11:30-0500 Body height 180.34 cm Lucila Arnett Other [facility] 09-14-2023 11:30-0500 Body mass index (BMI) [Ratio] 20.92 kg/m2 Lucila Arnett Other [facility] Other 09-14-2023 11:30-0500 Body weight 68.04 kg Lucila Arnett Other [facility] Other 09-14-2023 11:30-0500 Body weight 68.03 kg [facility] 09-14-2023 11:30-0500 Diastolic blood pressure 68 mm[Hg] Lucila Melquiades Other [facility] 09-14-2023 11:30-0500 Respiratory rate 16 /min Lucila Steveacher Other [facility] Other 09-14-2023 11:30-0500 SaO2% (BldA) [Mass fraction] 100 % Lucila Steveacher Other [facility] Other 09-14-2023 11:30-0500 Systolic blood pressure 110 mm[Hg] Lucila Steveacher Other [facility] 08-03-2023 10:00-0500 Body height 180.34 cm Lucila Vidyar Other [facility] Other 08-03-2023 10:00-0500 Body mass index (BMI) [Ratio] 20.78 kg/m2 Lucila Vidyar Other [facility] Other 08-03-2023 10:00-0500 Body weight 67.59 kg Lucila Steveacher Other [facility] Other 08-03-2023 10:00-0500 Diastolic blood pressure 66 mm[Hg] Lucila Steveacher Other [facility] Other 08-03-2023 10:00-0500 SaO2% (BldA) [Mass fraction] 98 % Lucilaleah Wilsonacher Other [facility] Other 08-03-2023 10:00-0500 Systolic blood pressure 100 mm[Hg] Lucila Wilsonacher Other [facility] Other Encounters Encounter Date Encounter Type Care Provider Facility Start: 04-10-2024 End: 04-10-2024 ambulatory WON TREVON Not Available Start: 03-31-2024 End: 03-31-2024 ambulatory WON R [facility] Start: 03-27-2024 End: 03-27-2024 ambulatory WON TREVON Not Available Start: 03-25-2024 End: 03-25-2024 ambulatory WON R [facility] Start: 03-13-2024 End: 03-13-2024 ambulatory PEDRO TABOR Not Available Start: 02-28-2024 End: 02-28-2024 ambulatory WON TREVON Not Available Start: 02-25-2024 End: 02-25-2024 ambulatory WON R [facility] Start: 02-13-2024 End: 02-13-2024 ambulatory WON TREVON Not Available Start: 01-30-2024 End: 01-30-2024 ambulatory WON TREVON Not Available Start: 01-21-2024 End: 01-21-2024 ambulatory WON R [facility] Start: 01-17-2024 End: 01-17-2024 ambulatory WON TREVON Not Available Start: 01-03-2024 End: 01-03-2024 ambulatory WON TREVON Not Available Start: 12-26-2023 End: 12-26-2023 ambulatory WON TREVON Not Available Start: 12-13-2023 End: 12-13-2023 ambulatory WON TREVON Not Available Start: 12-10-2023 End: 12-11-[address] [facility] Start: 12-10-2023 End: 12-10-2023 Encounter identifier Hill Jacobsen Work Phone: [facility] [place] Start: 12-06-2023 End: 12-07-[address] [facility] Start: 12-03-2023 End: 12-04-[address] [facility] Start: 11-29-2023 End: 11-30-[address] [facility] Start: 11-26-2023 End: 11-27-[address] [facility] Start: 11-23-2023 End: 11-24-[address] [facility] Start: 11-21-2023 End: 11-22-[address] [facility] Start: 11-19-2023 End: 11-20-2023 ambulatory CURRENCY EXAMINER LUCILA ARNETT Facility:[facility] Start: 11-19-2023 End: 11-19-2023 Patient encounter procedure LUCILA ARNETT [facility] Start: 11-14-2023 End: 11-14-2023 ambulatory [facility] Work Phone: Start: 11-14-2023 End: 11-14-2023 Patient encounter procedure [facility] Work Phone: Start: 11-02-2023 ambulatory EARLE CHEN Facility:[facility] Start: 11-02-2023 End: 11-02-2023 Office outpatient new 60 minutes Earle Chen MD Work Phone: [facility] [place] Comment on above: Endometriosis (Prima ry Dx); Pelvic pain; Myalgia of pelvic floor; Dysmenorrhea; Dyspareunia in female; Nausea and vomiting, unspecified vomiting type; Bladder pain; Anxiety Start: 10-17-2023 End: 10-17-2023 Patient encounter procedure [facility] Work Phone: Start: 09-14-2023 End: 09-14-2023 ambulatory Lucila Arnett Other [facility] Other Start: 09-14-2023 Office outpatient vi sit 25 minutes Lucila Arnett [facility] Start: 09-14-2023 End: 09-14-2023 Patient encounter procedure [facility] Start: 08-09-2023 End: 08-09-2023 ambulatory Lucila Arnett Other [facility] Other Start: 08-09-2023 Telephone encounter Lucila Ni her [facility] Start: 08-03-2023 End: 08-03-2023 ambulatory Lucila Arnett Other [facility] Other Start: 08-03-2023 Office outpatient ne w 30 minutes Lucila Arnett [facility] Start: 08-03-2023 Telephone encounter Lucila Ni her [facility] Start: 07-12-2020 End: 07-13-[address] WON [...] pain Expected: 11/02/2023, Expires: 11/01/2024 [facility] Comment on above: Expected: 11/02/2023 , Expires: 11/01/2024 Start: 10-17-2023 Patient referral [facility] Work Phone: Start: 04-20-2023 COVID-19 VACCINE () COVID-19 VACCINE () [facility] Start: 04-20-2023 Influenza vaccination INFLUENZA VACC INE (#1) [facility] Start: 2017 Screening for malign ant neoplasm of cervix CERVICAL CANCER SCREENING DISCUSSION [facility] Start: 11-08-2015 Hepatitis B vaccination HEP B VACCINE (1 of 3 - 19+ 3-dose series) [facility] Start: 11-08-2015 Third diphtheria, te tanus and acellular pertussis (DTaP) vaccination TDAP (ADULT) [facility] Start: 2012 Screening for Chlamy david trachomatis CHLAMYDIA SCREEN [facility] Start: 11-08-2011 HIV screening HIV SCREENING DISCUSSION [facility] Start: 11-08-2011 Vaccination for kale n papillomavirus HPV VACCINE ADOL (1 - 3-dose series) [facility] Start: 1996 Hepatitis C screening HEPATITI S C VIRUS SCREENING [facility] Start: 1996 Screening for Chlamy david trachomatis GONORRHEA SCREEN [facility] Start: 1996 Tetanus vaccination TETANUS [facility] Patient referral [facility] [facility] Work Phone: Payers Date Payer Category Payer Medicaid [id number] 2023 [employer] others) [id number] 2023 [employer] others) [facility] [id number] 2023-Present [address] [place] [address] [id number] .3.317830.315 2023 [employer] ( and others) [id number] 1996 Unknown [id number] 2.16.840.1.072363.3.579.2.5 93 1996 Unknown [id number] 2.16.840.1.506877.3.579.2.5 93 1996 Unknown [id number] 2.16.840.1.821002.3.579.2.5 93 1996 Unknown [id number] 2.16.840.1.295715.3.579.2.5 93 1996 Unknown [id number] 2.16.840.1.316040.3.579.2.5 93 1996 Unknown [id number] 2.16.840.1.082457.3.579.2.5 94 1996 Unknown [id number] 2.16.840.1.766346.3.579.2.7 27 1996 Unknown [id number] 2.16.840.1.415010.3.579.2.1 143 1996 Unknown [id number] 2.16.840.1.845447.3.579.2.1 143 1996 Unknown [id number] 2.16.840.1.767646.3.579.2.1 143 1996 Unknown [id number] 2.16.840.1.090422.3.579.2.1 143 1996 Unknown [id number] 2.16.840.1.881420.3.579.2.1 143 1996 Unknown [id number] 2.16.840.1.984441.3.579.2.1 143 1996 Unknown [id number] 2.16.840.1.649813.3.579.2.1 143 1996 Unknown [id number] 2.16.840.1.490755.3.579.2.1 286 1996 Unknown [id number] 2.16.840.1.838576.3.579.2.1 286 1996 Unknown [id number] 2.16.840.1.740526.3.579.2.1 286 1996 Unknown [id number] 2.16.840.1.468962.3.579.2.1 286 1996 Unknown [id number] 2.16.840.1.618179.3.579.2.1 286 1996 Unknown [id number] 2.16.840.1.441187.3.579.2.1 286 1996 Unknown [id number] 2.16.840.1.926213.3.579.2.1 259 1996 Unknown [id number] 2.16.840.1.069808.3.579.2.1 259 1996 Unknown [id number] 2.16.840.1.380808.3.579.2.1 259 1996 Unknown [id number] 2.16.840.1.715360.3.579.2.1 259 1996 Unknown [id number] 2.16.840.1.232002.3.579.2.1 259 1996 Unknown [id number] 2.16.840.1.233121.3.579.2.1 259 1996 Unknown [id number] 2.16.840.1.104033.3.579.2.1 259 1996 Unknown [id number] 2.16.840.1.650759.3.579.2.1 259 1996 Unknown [id number] 2.16.840.1.623749.3.579.2.1 259 1996 Unknown [id number] 2.16.840.1.600834.3.579.2.1 259 1959 [employer] ( [employer] others) [id number] 1959 [employer] ( and others) [id number] [employer] ( and others) [id number] 2.16.840.1.566624.19 Social History Date Type Detail Facility Start: 11-02-2023 Sex Assigned At [facility] Start: 09-30-2017 End: 11-02-2023 Tobacco smoking status NHIS Never smoked tobacco [facility] Start: 11-02-2023 Tobacco use and exposure Smokeless tobacco non-user [facility] Start: 11-02-2023 Alcoholic beverage intake Lifetime non-drinker (finding) [facility] Start: 11-02-2023 History of Social function [facility] Start: 1996 Sex assigned at Not on file [facility] Start: 1996 Sex Assigned At Female [facility] Start: 12-10-2023 Tobacco smoking status NHIS Unknown if ever smoked [facility] Start: 12-10-2023 Alcohol intake Alcohol Use Details [facility] Start: 09-04-2023 Sexual Orientation Lesbian, lynch or homosexual [facility] Clinical [facility] 06-25-2020 to 11-19-2023 Earle Chen MD - 11/02/2023 2:30 PM EDT Note Date & Type Note Facility 11-19-2023 Evaluation + Plan note Diagnostic Tests PendingT3 Free 11/19/23Thyroid Perox.tpo Ab 11/19/23TgAb+Thyroglobulin,CHING or ARLEN 11/19/23 [facility] 11-02-2023 History of Present illness Narrative GYNECOLOGY CONSULT NOTE REASON FOR VISIT Endometriosis Pelvic pain HISTORY OF PRESENT ILLNESS Ms. Medrano is a 27 y.o. (NSVDx2) who presents for consultation regarding endometriosis, pelvic pain. Records review: Moved back from [place] to [place] (2021) First diagnosed in 2018 Has had 2 surgical procedures for Stage [...] tried to get her medical records in [place], but they would not send them. She [...] had a women's health doctor in [facility] who told her she had stage IV endometriosis. She is no longer on the progesterone. Has tried vaginal valium does not help Her 2 previous pregnancies were with a previous partner. She and her are trying for another now. No BA in [place] Partner has not had a SA yet Very poor quality of life If it is hot outside, it makes her sick. She starts vomiting after showering because hot water triggers more pain. 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 She has to stand a lot at work or bends over a lot. She is nauseous /. Pain symptoms It hurts on both sides, [...] patient today. documented in this encounter 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 Risk assessment was done. Patient is [...] Pt to call with any worsening symptoms. [facility] Other 12-21-2023 Evaluation note* Encounter Date Diagnosis Assessment Notes Treatment Notes Treatment Clinical Notes Jul, Generalized anxiety disorder (ICD-10 - F41.1) Jul, Endometriosis (ICD-1 0 - N80.9) [facility] Other 12-15-2023 Evaluation note* Encounter Date Diagnosis [...] educated on the risks and benefits of penitentiary use. Risk assessment was done as well [...] change in vision, double vision, blurry vision. 15 Jul, 2023 Migraine without status migrainosus, not intractable, unspecified migraine type (ICD-10 - G43.909) [facility] Other 11-06-2020 NoteOPERATIVE NOTE OPERATION DATE: 06-25-20 ANESTHETIC:General. OUTREACH EDUCATOR:None. PREOPERATIVE DIAGNOSIS: 1. Dyspareunia. 2. Right and [...] lap, and needle counts were correct x2. [facility] Signed and Approved by: DR WON LESTER . 07/30/2020 13:02:[facility] Clinical Note Date No Information [facility] Work Phone: Discharge summary* Clinical Note Date No Information [facility] Work Phone: [facility] Other Evaluation note* Diagnosis Endometriosis- Primary Endometriosis, site unspecified Pelvic pain Unspecified symptom associated with female genital organs Myalgia of pelvic floor Dysmenorrhea Dyspareunia in female Nausea and vomiting, unspecified vomiting type Bladder pain Other symptoms involving urinary system Anxiety Anxiety state, unspecified documented in this encounter [facility] Diagnosis Onset Date Resolution Status Depression acute Generalized anxiety disorder acute Obsessive compulsive disorder acute PTSD (post-traumatic stress disorder) acute Depression acute Endometriosis acute Generalized anxiety disorder acute Obsessive compulsive disorder acute PTSD (post-traumatic stress disorder) acute TBI (traumatic brain injury) acute [facility] Work Phone: Evaluation note* Type Assessment Date No Information [email or web address] Work Phone: History and physical note* Clinical Note Date No Information [email or web address] Work Phone: History general Narrative - Reported* Type Description Date Medical History Anxiety Medical History Stage 4 Endometriosis Medical History Depression with manic episodes Medical History OCD Medical History PTSD Medical History TBI Surgical History Endometriosis surgery x2 Surgical History [place] teeth Surgical History Injections in [facility] Other History of Present illness Narrative* Encounter Date Complaint History Of Prese nt Illness No Information [email or web address] Work Phone: Hospital course Narrative No data available for this section [facility] No data available for this section [facility] Date Instruction Additional Infor mation No Information [email or web address] Work Phone: Progress note No data available for this section [facility] Clinical Note Date No Information [email or web address] Work Phone: Reason for referral (narrative)* Consultation (Routine) - New Request Specialty Diagnoses / Procedures Referred By Contac t Referred To Contact Psychology Diagnoses Pelvic pain Anxiety Earle Chen MD [address] [place] [address] Oksana Luu, PhD [address] [place] [address] Referral ID Status Reason Start Date Expiration Date V isits Requested Visits Authorized [id number] New Request 11/02/2023 11/26/2024 1 1 * Consultation (Routine) - New Request Specialty Diagnoses / Procedures Referred By Contac t Referred To Contact Integrative Medicine Diagnoses Pelvic pain Nausea and vomiting, unspecified vomiting type Earle Chen MD [address] [place] [address] Referral ID Status Reason Start Date Expiration Date V isits Requested Visits Authorized [id number] New Request 11/02/2023 11/26/2024 1 1 * Consultation (Routine) - New Request Specialty Diagnoses / Procedures Referred By Contac t Referred To Contact Gynecology Diagnoses Pelvic pain Myalgia of pelvic floor Bladder pain Earle Chen MD [address] [place] [address] Referral ID Status Reason Start Date Expiration Date V isits Requested Visits Authorized [id number] New Request 11/02/2023 11/26/2024 1 1 * MRI/CAT Scan (Routine) - New Request Specialty Diagnoses / Procedures Referred By Contac t Referred To Contact Diagnoses Endometriosis Pelvic pain Procedures MRI PELVIS WITH AND WITHOUT CONTRAST TX MRI, PELVIS, COMBO Earle Chen MD [address] [place] [address] Referral ID Status Reason Start Date Expiration Date V isits Requested Visits Authorized [id number] New Request 11/02/2023 11/26/2024 1 1 [facility] for referral (narrative)* Reason For Referral No Information [facility] Work Phone: Summary Purpose Family History No [...] Diagnosis 1 Endometriosis (N80.9 ) Referral Organization [facility] Referring Provider First Name Lucila Referring Provider Last Name Rohrbacher Referring Provider Specialty Nurse Pract itioner Referred Organization [facility] Referred Provider Jena Suresh Referred Address ,[place], [place],[address] Referred Provider Specialty OB - Gynecol ogy [...] intractable, unspecified migraine type (G43.909) Referral Organization [facility] Referring Provider First Name Lucila Referring Provider Last Name Rohrbacher Referring Provider Specialty Nurse Pract itioner Referred Organization [facility] Referred Provider Herbie Arroyo Referred Address [address] [facility], [place],[address] Referred Provider Specialty Neurology Referral Priority Routine [...] Diagnosis 1 Endometriosis (N80.9 ) Referral Organization [facility] [place] Referring Provider First Name Lucila Referring Provider Last Name Rohrbacher Referring Provider Specialty Nurse Pract itioner Referred Organization [facility] Referred Address [address] [place], [place],[address] Referred Provider Specialty Endocrinolog y Referral Priority Routine General Notes EsvinauraLesley hernandez 01:18:58 PM >pt has west. we do [...] and content) DATE CREATED AUTHOR 12/15/2020 [facility] DATE CREATED AUTHOR AUTHOR'S ORGANIZ ATION 11/03/2023 [facility] DATE CREATED AUTHOR AUTHOR'S ORGANIZ ATION 11/20/2023 [facility] DATE CREATED AUTHOR AUTHOR'S ORGANIZ ATION 12/15/2023 [facility] DATE CREATED AUTHOR AUTHOR'S ORGANIZ ATION 04/01/2024 [facility] DATE CREATED AUTHOR AUTHOR'S ORGANIZ ATION 04/12/2024 [facility] Special[facility] EPIC REASON FOR VISIT (unrecogniz ed section and content) Reason Comments Consult Pt diagnosis with En dometriosis in 2018. Patient desire . Specialty Diagnoses / Procedures Referred By Harris t Referred To Contact [facility] Diagnoses Endometriosis Lucila Arnett, KHADRA [address] [place] [address] [facility] [address] [place] [address] Referral ID Status Reason Start Date Expiration Date V isits Requested Visits Authorized [id number] New Request 10/23/2023 11/16/2024 1 1 Care Teams (unrecognized sec tion and content) Team Status: Active Member Role Status Dates Lucila Arnett APRN BLANKING MACHINE OPERATOR-C Primary Care Provider Active Team Status: Inactive Member Role Status Dates REAL Juarez Attending Provider Act vinicius Start: September 14, 2023 End: September 14, 2023 Team Status: Inactive Member Role Status Dates Lucila Arnett APRN BLANKING MACHINE OPERATOR-C Primary Care Provider, Attending Provider Active Start: October 17, 2023 End: October 17, 2023 Team Status: Inactive Member Role Status Dates REAL Juarez Primary Care Provider, Attending Provider Active Start: [...] BE BASED ON THE PRIMARY CLINICAL RECORDS. [facility] [address] [facility]. provides no warranty or guarantee of the accuracy or completeness of information in this document.
[2024-04-24 10:33] LABS: Basophils Percent Auto 0.4 % (0.2-2.0); Eosinophils Absolute Auto 0.1 10^3/uL (0.0-0.7); Eosinophils Percent Auto 0.9 % (0.9-7.0); Hematocrit 33.3 % (36.0-48.0); Hemoglobin 11.5 g/dL (12.0-16.0); Immature Granulocytes Abs Auto 0.16 10^3/uL (0.00-0.03); Immature Granulocytes Pct Auto 1.8 % (0.0-0.5); Lymphocytes Absolute Auto 1.3 10^3/uL (1.2-3.8); Lymphocytes Percent Auto 14.5 % (20.5-60.0); Mean Corpuscular HGB Conc 34.5 g/dL (29.9-35.2); Mean Corpuscular Volume 95.7 fL (81.0-99.0); Mean Platelet Volume 9.2 fL (9.5-13.5); Monocytes Absolute Auto 0.6 10^3/uL (0.3-0.8); Monocytes Percent Auto 6.5 % (1.7-12.0); Neutrophils Absolute Auto 6.8 10^3/uL (1.4-6.5); Neutrophils Percent Auto 75.9 % (43.0-75.0); Platelet Count 229 10^3/uL (150-450); Red Blood Count 3.48 10^6/uL (4.20-5.40); White Blood Count 8.9 10^3/uL (4.0-11.0)
[2024-04-24 10:44] LABS: Glucose 1 Hour 156 mg/dL (<130)
== END 2024-04-24 08:59 | disposition home or self-care (01) ==
LOC: LAB 09:02
PROVIDERS: PCP Nurse Practitioner Family; Visit Provider Obstetrics & Gynecology
DX: Z13.1 Encounter for screening for diabetes mellitus (principal)
CPT/HCPCS: 36415; 82950; 85025

== ENCOUNTER 2024-05-03 08:20 | Outpatient (OUT) | payer MEDICAID, SELFPAY ==
--- OUTSIDE RECORDS SUMMARY | 2024-05-03 08:23 | XMS_ITS | CCD ---
Author Organization [facility] Inform ion [facility] Care Team Providers Care Returned Telephone Equipment Appraiser Name Role Phone TREVON, DR UPTON Admitting [...] Unavailable Unavailable Primary Care Provider Unavailabl e MISAL, [...] WON Attending Unavailable TREVON, WON Attending Unavailable PEDRO TABOR Attending Unavailable TREVON, WON Attending Unavailable TREVON, WON Attending Unavailable TREVON, WON Attending Unavailable Allergies Allergy Classification Reported Allergen(s) Allergy Type Date of Onset Reaction(s) Facility Opioid Agonists (1 source) traMADol Drug Allergy 0 [facility] Repository (6 sources) traMADol; Translations: [TRAMADOL] Drug Allergy 4 Unknown, Unknown Reaction [facility] (6 sources) Lavender Oil; Translations: [LAVENDER OIL] Drug allergy 4 Unknown [facility] Repository (1 source) lavender (Lavandula angustifolia) Allergy to substance 4 Unknown Reaction [facility] (1 source) GALCANEZUMAB-GN ; Translations: [GALCANEZUMAB-G [facility]] Propensity to adverse reactions to drug (disorder) [...] oral solution (1 source) alpha-Adrenergic Agonist, Uncompetitive R-squobi-R-aspartate Receptor Antagonist, Sigma-1 Agonist Start: 09-30-2017 take [...] q6hr, # 10 tab(s), Refills(s) 0, Pharmacy: [facility] Start Date: 09/21/18 Status: [...] Facility HCG.beta subunit Qnon 2023 hCG Quant [id number] mIU/mL Normal [facility] Comment on above: Order Comment: Pregn [...] method. Performed By: #### 2 1198-7 #### [facility] [address] [place] [address] HCG.beta subunit Qnon 2023 hCG Quant [id number] mIU/mL Normal [facility] Comment on above: Order Comment: Pregn phill [...] method. Performed By: #### 2 1198-7 #### [facility] [address] [place] [address] HCG.beta subunit Qnon 2023 hCG Quant [id number] mIU/mL Normal [facility] Comment on above: Order Comment: Pregn phill [...] method. Performed By: #### 2 1198-7 #### [facility] [address] [place] [address] HCG.beta subunit Qnon 2023 hCG Quant 19715 mIU/mL Normal [facility] Comment on above: Order Comment: Pregn phill [...] method. Performed By: #### 2 1198-7 #### [facility] [address] [place] [address] HCG.beta subunit Qnon 2023 hCG Quant 2709 mIU/mL Normal [facility] Comment on above: Order Comment: Pregn phill [...] method. Performed By: #### 2 1198-7 #### [facility] [address] [place] [address] HCG.beta subunit Qnon 2023 hCG Quant 776 mIU/mL Normal [facility] Comment on above: Order Comment: Pregn phill [...] method. Performed By: #### 2 1198-7 #### [facility] [address] [place] [address] HCG.beta subunit Qnon 2023 hCG Quant 250 mIU/mL Normal [facility] Comment on above: Order Comment: Pregn phill [...] method. Performed By: #### 2 1198-7 #### [facility] [address] [place] [address] .Thyroglobulin by IMAon Thyroglobulin [Mass/Vol] 5.0 ng/mL Invalid Interpretation Code 1.5-38.5 [facility] Comment on above: Result Comment: Acco [...] by John Vish Immunometric Assay Performed at: [facility] [id number] PhD Johanny Nieto Performed By: #### 2 256747, [id number], [id number], 9917434, [id number], [id number], [id number] #### [facility] [address] [place] [address] T3 Freeon 11-20-2023 Free T3 [Mass/Vol] 3.2 pg/mL Invalid Interpretation Code 2.0-4.4 [facility] Comment on above: Result Comment: Perf ormed at: [address] [id number] PhD Johanny Nieto Performed By: #### 2 939228, [id number], [id number], 8531043, [id number], [id number], [id number] #### [facility] [address] [place] [address] TgAb+Thyroglobulinon 024 Thyroglobulin Ab Qn [IU]/mL Invalid Interpretation Code 0.0-0.9 [facility] Comment on above: Result Comment: Thyr oglobulin Antibody measured by [employer] Methodology It should be noted that the presence of thyroglobulin antibodies may not be pathogenic nor diagnostic, especially at very low levels. The assay elevator examiner has found that four percent of individuals without evidence of thyroid disease or autoimmunity will have positive TgAb levels up to 4 IU/mL. Performed at: [address] [id number] PhD Johanny Nieto Performed By: #### 2 965106, 11076815, 10695242, 4462581, [id number], [id number], [id number] #### [facility] [address] [place] [address] Thyroid Perox.tpo Abon 11-19 TPO Ab Qn [IU]/mL Invalid Interpretation Code 0-34 [facility] Comment on above: Result Comment: Perf ormed at: [address] [id number] PhD Johanny Nieto Performed By: #### 2 814637, [id number], [id number], 0957971, [id number], [id number], [id number] #### [facility] [address] [place] [address] BhC Quanton 11-19-2023 HCG.beta subunit Qn 86 m[IU]/mL High 1-3 Fish er [facility] Comment on above: Result Comment: 'F N ON < 1 - 3' ' 0.2 - 1 WEEK = 5 TO 50' ' 1 - 2 WEEKS = 50 - 500' ' 2 - 3 WEEKS = 100 - 5000' ' 3 - 4 WEEKS = 500 - 96122' ' 4 - 5 WEEKS = 1000 - 11910' ' 5 - 6 WEEKS = 24659 - 638255' ' 6 - 8 WEEKS = 66587 - 809009' ' 8 - 12 WEEKS = 10555 - 720757' Performed By: #### 2 969278 #### [facility] [address] [place] [address] CHEMISTRYOrdered By: SYSTEM SYSTEM on 11-19-2023 HCG.beta [...] 3 - 4 WEEKS = 500 - 65085' ' 4 - 5 WEEKS = 1000 - 56122' ' 5 - 6 WEEKS = 19905 - 265200' ' 6 - 8 WEEKS = 07022 - 419360' ' 8 - 12 WEEKS = 00237 - 195809' Iron [Mass/Vol] 161 ug/dL High 35 - 153 mcg/dL Remisol Chem Iron binding capacity [Mass/Vol] 316 ug/dL Normal 250 - 400 mcg/dL Remisol Chem Transferrin [Mass/Vol] 226 mg/dL Normal 200 - 370 mg/dL Remisol Chem TSH Qn 1.53 m[IU]/L Normal 0.34 - 5.60 mcIU/mL Remisol Chem Consent for Treatmenton Consent for Treatment [id number] .00TIFF Normal [facility] Ironon 11-19-2023 Iron [Mass/Vol] 161 microgram/dL High 35-153 Fis [facility] Comment on above: Performed By: #### 2 067674, [id number], 42842505, 0761800, 183384135, 161656498, [id number] #### [facility] [address] [place] [address] Physician Orderon 11-19-2023 Physician Order [id number] .00TIFF Normal [facility] TIBC Calculatedon 11-19-2023 Iron binding capacity [Mass/Vol] 316 microgram/dL Normal 250-400 [facility] Comment on above: Performed By: #### 2 796237, 88601827, 10286704, 5274177, 754209635, [id number], [id number] #### [facility] [address] [place] [address] Transferrin [Mass/Vol] 226 mg/dL Normal 200-370 [facility] Comment on above: Performed By: #### 2 406894, 00923136, 04687229, 7376098, 808411131, [id number], [id number] #### [facility] [address] [place] [address] TSH With T4fr Reflexon 11-18 TSH Qn 1.53 m[IU]/L Normal 0.34-5.60 [facility] Comment on above: Performed By: #### 2 626986, 80303866, 80323135, 1211402, 891071474, 436031914, 17366095 #### [facility] [address] [place] [address] TSHon 07-12-2020 TSH 0.756 uIU/mL Normal 0.470-4.680 [facility] Comment on above: Performed By: #### T SH #### [facility] [address] [place], [place] [address] Jayne Hamm TSH RANGE SEE BELOW Normal [facility] Comment on above: Result Comment: <0.3 4 UIU/ml HYPERTHYROID 0.34-5.60 UIU/ml EUTHYROID >5.60 UIU/ml HYPOTHYROID Performed By: #### T SH #### [facility] [address] [place], [place] [address] Jayne Noris CBC AUTO DIFFon 06-25-2020 BASO # 0.1 103/ul Normal 0.0-0.1 [facility] Comment on above: Performed By: #### C BC #### [facility] [address] [place], [place] [address] Jayne Noris Basophils/100 WBC (Bld) 1.2 % Normal 0.2-2.0 [facility] Comment on above: Performed By: #### C BC #### [facility] [address] [place] [address] Jayne Noris EO # 0.2 103/ul Normal 0.0-0.7 [facility] Comment on above: Performed By: #### C BC #### [facility] [address] [place], [place] [address] Jayne Noris Eosinophils/100 WBC (Bld) 2.6 % Normal 0.9-7.0 [facility] Comment on above: Performed By: #### C BC #### [facility] [address] [place], [place] [address] Jayne Noris Erythrocyte distribution width (RBC) [Ratio] 12.0 % Normal 11.0-15.0 [facility] Comment on above: Performed By: #### C BC #### [facility] [address] [place] [address] Jayne Noris Hematocrit (Bld) [Volume fraction] 40.7 % Normal 36.0-48.0 [facility] Comment on above: Performed By: #### C BC #### [facility] [address] [place], [place] [address] Jayne Noris Hemoglobin (Bld) [Mass/Vol] 13.6 g/dL Normal 12.0-16.0 [facility] Comment on above: Performed By: #### C BC #### [facility] [address] [place] [address] Jayne Noris IG # 0.01 10e3/ul Normal 0.00-0.03 [facility] Comment on above: Performed By: #### C BC #### [facility] [address] [place] [address] Jayne Noris IG % 0.2 % Normal 0.0-0.5 [facility] Comment on above: Performed By: #### C BC #### [facility] [address] [place] [address] Jayne Noris LYMPH # 1.9 103/ul Normal 1.2-3.8 [facility] Comment on above: Performed By: #### C BC #### [facility] [address] [place] [address] Jaynejeremías Hamm Lymphocytes/100 WBC (Bld) 32.5 % Normal 20.5-60.0 [facility] Comment on above: Performed By: #### C BC #### [facility] [address] [place] [address] Jaynejeremías Hamm MANUAL DIFF REQ NO Normal [facility] Comment on above: Performed By: #### C BC #### [facility] [address] [place] [address] Jayne Noris MCH (RBC) [Entitic mass] 31.3 pg Normal 26.7-34.0 [facility] Comment on above: Performed By: #### C BC #### [facility] [address] [place] [address] Jaynejeremías Hamm MCHC (RBC) [Mass/Vol] 33.4 g/dL Normal 29.9-35.2 [facility] Comment on above: Performed By: #### C BC #### [facility] [address] [place] [address] Jayne Noris MCV (RBC) [Entitic vol] 93.6 fL Normal 81.0-99.0 [facility] Comment on above: Performed By: #### C BC #### [facility] [address] [place] [address] Jayne Noris MONO # 0.6 103/ul Normal 0.3-0.8 [facility] Comment on above: Performed By: #### C BC #### [facility] [address] [place], [place] [address] Jayne Hamm Monocytes/100 WBC (Bld) 10.4 % Normal 1.7-12.0 [facility] Comment on above: Performed By: #### C BC #### [facility] [address] [place] [address] Jaynejeremías Cruzen NEUT # 3.1 103/ul Normal 1.4-6.5 [facility] Comment on above: Performed By: #### C BC #### [facility] [address] [place] [address] Jayne Hamm Neutrophils/100 WBC (Bld) 53.1 % Normal 43.0-75.0 [facility] Comment on above: Performed By: #### C BC #### [facility] [address] [place] [address] Jayne Hamm Platelet mean volume (Bld) [Entitic vol] 8.9 fL Critically low 9.5-13.5 [facility] Comment on above: Performed By: #### C BC #### [facility] [address] [place], [place] [address] Jaynejeremías Cruzen PLT 265 103/ul Normal 150-450 [facility] Comment on above: Performed By: #### C BC #### [facility] [address] [place] [address] Jayne Noris RBC 4.35 106/ul Normal 4.20-5.40 [facility] Comment on above: Performed By: #### C BC #### [facility] [address] [place] [address] Jayne Noris WBC 5.8 103/ul Normal 4.0-11.0 [facility] Comment on above: Performed By: #### C BC #### [facility] [address] [place], [place] [address] Jaynejeremías Cruzen PREG QUANT HCGon 06-25-2020 HCG QUANT 1.00 mIU/mL Normal [facility] Comment on above: Performed By: #### P REGQNT #### [facility] [address] [id number] Jayne Noris HCG RANGE SEE BELOW [facility] Comment on above: Result Comment: 5-50 0-1 WEEK 40-300 1-2 WEEKS 100-1,000 2-3 WEEKS 500-6,000 3-4 WEEKS 5,000-200,000 1-2 MONTHS 10,000-100,000 2-3 MONTHS 3,000-50,000 2ND TRIMESTER 1,000-50,000 3RD TRIMESTER Performed By: #### P REGQNT #### [facility] [address] [place] [address] Jayne Noris PAP ACOG PANEL 2: 21 to 29on 05-06-2020 . . Normal [facility] Comment on above: Performed By: #### 4 [id number] #### [facility] [address] [place] [address] Jaynejeremías Hamm Age Gdln ACOG Testing 22- [facility] Comment on above: Performed By: #### 4 [id number] #### [facility] [address] [place] [address] Jaynejeremías Hamm DIAGNOSIS: Comment Normal [facility] Comment on above: Result Comment: NEGA TIVE FOR INTRAEPITHELIAL LESION OR MALIGNANCY. Performed By: #### 4 [id number] #### [facility] [address] [place] [address] Jayne Nrois Methodology: Comment Normal [facility] Comment on above: Result Comment: This liquid based SurePath(R) pap test was screened with the assistance of an image guided system. Performed By: #### 4 [id number] #### [facility] [address] [place] [address] Jayne Noris Note: Comment [facility] Comment on above: Result Comment: The Pap smear is a screening test designed to aid in the detection of premalignant and malignant conditions of the uterine cervix. It is not a diagnostic procedure and should not be used as the sole means of detecting cervical cancer. Both false-positive and false-negative reports do occur. . Performed By: #### 4 [id number] #### [facility] [address] [place] [address] Jayne Hamm Performed by: Comment Normal [facility] Comment on above: Result Comment: Suman Rdz, Cook Fish Eggs (ASCP) Performed By: #### 4 [id number] #### [facility] [address] [address] Jayne Hamm Reflex Criteria: Comment Normal [facility] Comment on above: Result Comment: The HPV DNA reflex criteria were not met with this specimen result therefore, no HPV testing was performed. . Performed By: #### 4 [id number] #### [facility] [address] [address] Jayne Noris Specimen adequacy: Comment Normal [facility] Comment on above: Result Comment: Sati sfactory for evaluation. Endocervical and/or squamous metaplastic cells (endocervical component) are present. Performed By: #### 4 [id number] #### [facility] [address] [address] Jayne Hamm US PELVIS AND TRANSVAGon US [...] by: DARLINE ESPITIA Date: 2020-04-30 14:54 Normal [facility] Vital Signs Date Time Vital Sign Value Performing Clinician Facility 12-10-2023 09:18-0400 Diastolic blood pressure 84 mm[Hg] Hill Ann-Marie Work Phone: [facility] 12-10-2023 09:18-0400 Heart rate 101 /min Hill Ann-Marie Work Phone: [facility] 12-10-2023 09:18-0400 Respiratory rate 12 /min Hill Jacobsen Work Phone: [facility] 12-10-2023 09:18-0400 Systolic blood pressure 132 mm[Hg] Hill Jacobsen Work Phone: [facility] 11-02-2023 14:27-0400 Body height 180.3 cm Earle Chen MD Work Phone: [facility] 11-02-2023 14:27-0400 Body mass index (BMI) [Ratio] 20.04 kg/m2 Earle Chen MD Work Phone: [facility] 11-02-2023 14:27-0400 Body weight 65.18 kg Earle Chen MD Work Phone: [facility] 11-02-2023 14:27-0400 Diastolic blood pressure 80 mm[Hg] Earle Chen MD Work Phone: [facility] 11-02-2023 14:27-0400 Systolic blood pressure 110 mm[Hg] Earle Chen MD Work Phone: [facility] 09-14-2023 11:30-0500 Body height 180.34 cm Lucila Arnett Other [facility] 09-14-2023 11:30-0500 Body mass index (BMI) [Ratio] 20.92 kg/m2 Lucila Arnett Other [facility] [employer] Other 09-14-2023 11:30-0500 Body weight 68.04 kg Lucila Arnett Other [facility] [employer] Other 09-14-2023 11:30-0500 Body weight 68.03 kg [facility] 09-14-2023 11:30-0500 Diastolic blood pressure 68 mm[Hg] Lucila Arnett Other [facility] 09-14-2023 11:30-0500 Respiratory rate 16 /min Lucila Arnett Other [facility] Other 09-14-2023 11:30-0500 SaO2% (BldA) [Mass fraction] 100 % Lucila Arnett Other [facility] Other 09-14-2023 11:30-0500 Systolic blood pressure 110 mm[Hg] Lucila Dasilvar Other [facility] 08-03-2023 10:00-0500 Body height 180.34 cm Lucila Arnett Other [facility] Other 08-03-2023 10:00-0500 Body mass index (BMI) [Ratio] 20.78 kg/m2 Lucila Arnett Other [facility] Other 08-03-2023 10:00-0500 Body weight 67.59 kg Lucila Arnett Other [facility] Other 08-03-2023 10:00-0500 Diastolic blood pressure 66 mm[Hg] Lucila Dasilvar Other [employer] Other 08-03-2023 10:00-0500 SaO2% (BldA) [Mass fraction] 98 % Lucila Arnett Other [facility] Other 08-03-2023 10:00-0500 Systolic blood pressure 100 mm[Hg] Lucila Arnett Other [facility] [employer] Other Encounters Encounter Date Encounter Type Care Provider Facility Start: 04-24-2024 End: 04-24-2024 ambulatory WON TREVON Not Available Start: 04-10-2024 End: 04-10-2024 ambulatory WON TREVON Not Available Start: 03-31-2024 End: 03-31-20[facility] Start: 03-27-2024 End: 03-27-2024 ambulatory WON TREVON Not Available Start: 03-25-2024 End: 03-25-2024 ambulatory WON R [facility] Start: 03-13-2024 End: 03-13-2024 ambulatory PEDRO TABOR Not Available Start: 02-28-2024 End: 02-28-2024 ambulatory WON TREVON Not Available Start: 02-25-2024 End: 02-25-2024 ambulatory WON R [facility] Start: 02-13-2024 End: 02-13-2024 ambulatory WON TREVON Not Available Start: 01-30-2024 End: 01-30-2024 ambulatory WON TREVON Not Available Start: 01-21-2024 End: 01-21-2024 ambulatory WON R [facility] Start: 01-17-2024 End: 01-17-2024 ambulatory WON TREVON Not Available Start: 01-03-2024 End: 01-03-2024 ambulatory WON TREVON Not Available Start: 12-26-2023 End: 12-26-2023 ambulatory WON TREVON Not Available Start: 12-13-2023 End: 12-13-2023 ambulatory WON TREVON Not Available Start: 12-10-2023 End: 12-11-2023 ambulatory HAKEEM YODER [facility] Start: 12-10-2023 End: 12-10-2023 Encounter identifier Hill Gautam Ann-Marie Work Phone: [facility] [place] Start: 12-06-2023 End: 12-07-2023 ambulatory HAKEEM YODER [facility] Start: 12-03-2023 End: 12-04-2023 ambulatory HAKEEM YODER [facility] Start: 11-29-2023 End: 11-30-2023 ambulatory HAKEEM YODER [facility] Start: 11-26-2023 End: 11-27-2023 ambulatory HAKEEM YODER [facility] Start: 11-23-2023 End: 11-24-2023 ambulatory HAKEEM YODER [facility] Start: 11-21-2023 End: 11-22-2023 ambulatory HAKEEM YODER [facility] Start: 11-19-2023 End: 11-20-2023 ambulatory SQUIRREL MAN LUCILA ARNETT Facility:[facility] Start: 11-19-2023 End: 11-19-2023 Patient encounter procedure LUCILA ARNETT [facility] Start: 11-14-2023 End: 11-14-2023 ambulatory [facility] Work Phone: Start: 11-14-2023 End: 11-14-2023 Patient encounter procedure [facility] Work Phone: Start: 11-02-2023 ambulatory EARLE CHEN Facility:[facility] Start: 11-02-2023 End: 11-02-2023 Office outpatient [facility] 60 minutes Earle Chen MD Work Phone: [facility] [place] Comment on above: Endometriosis (Prima ry Dx); Pelvic pain; Myalgia of pelvic floor; Dysmenorrhea; Dyspareunia in female; Nausea and vomiting, unspecified vomiting type; Bladder pain; Anxiety Start: 10-17-2023 End: 10-17-2023 Patient encounter procedure [facility] Work Phone: Start: 09-14-2023 End: 09-14-2023 ambulatory Lucila Arnett Other [employer] Other Start: 09-14-2023 Office outpatient vi sit 25 minutes Lucila Arnett [facility] Start: 09-14-2023 End: 09-14-2023 Patient encounter procedure [facility] Start: 08-09-2023 End: 08-09-2023 ambulatory Lucila Arnett Other [employer] Other Start: 08-09-2023 Telephone encounter Lucila Dan her [facility] Start: 08-03-2023 End: 08-03-2023 ambulatory Lucila Arnett Other [employer] Other Start: 08-03-2023 Office outpatient ne w 30 minutes Lucila Arnett [facility] Start: 08-03-2023 Telephone encounter Lucila Dan her [employer] Start: 07-12-2020 End: 07-13-[address] WON [...] Endometriosis Pelvic pain Expected: 11/02/2023, Expires: 11/01/2024 [facility] Comment on above: Expected: 11/02/2023 , Expires: 11/01/2024 Start: 10-17-2023 Patient referral [facility] Work Phone: Start: 04-20-2023 COVID-19 VACCINE ( season) COVID-19 VACCINE ( season) [facility] Start: 04-20-2023 Influenza vaccination INFLUENZA VACC INE (#1) [facility] Start: 2017 Screening for malign ant neoplasm of cervix CERVICAL CANCER SCREENING DISCUSSION [facility] Start: 11-08-2015 Hepatitis B vaccination HEP B VACCINE (1 of 3 - 19+ 3-dose series) [facility] Start: 11-08-2015 Third diphtheria, te tanus and acellular pertussis (DTaP) vaccination TDAP (ADULT) [facility] Start: 2012 Screening for Chlamy david trachomatis CHLAMYDIA SCREEN [facility] Start: 11-08-2011 HIV screening HIV SCREENING DISCUSSION [facility] Start: 11-08-2011 Vaccination for kale n papillomavirus HPV VACCINE ADOL (1 - 3-dose series) [facility] Start: 1996 Hepatitis C screening HEPATITI S C VIRUS SCREENING [facility] Start: 1996 Screening for Chlamy david trachomatis GONORRHEA SCREEN [facility] Start: 1996 Tetanus vaccination TETANUS [facility] Patient referral [facility] Work Phone: Payers Date Payer Category Payer Medicaid [id number] 2023 [employer] ( and others) [id number] 2023 [employer] ( and others) [facility] [id number] 2023-Present [address] [place] [address] [id number] 2023 [employer] ( and others) [id number] 1996 Unknown [id number] 2.16.840.1.364687.3.579.2.5 93 1996 Unknown [id number] 2.16.840.1.318601.3.579.2.5 93 1996 Unknown [id number] 2.16.840.1.984012.3.579.2.5 93 1996 Unknown [id number] 2.16.840.1.580108.3.579.2.5 93 1996 Unknown [id number] 2.16.840.1.337326.3.579.2.5 93 1996 Unknown [id number] 2.16.840.1.828353.3.579.2.5 94 1996 Unknown [id number] 2.16.840.1.063400.3.579.2.7 27 1996 Unknown [id number] 2.16.840.1.871861.3.579.2.1 143 1996 Unknown [id number] 2.16.840.1.462573.3.579.2.1 143 1996 Unknown [id number] 2.16.840.1.294493.3.579.2.1 143 1996 Unknown [id number] 2.16.840.1.337531.3.579.2.1 143 1996 Unknown [id number] 2.16.840.1.275772.3.579.2.1 143 1996 Unknown [id number] 2.16.840.1.481738.3.579.2.1 143 1996 Unknown [id number] 2.16.840.1.607693.3.579.2.1 143 1996 Unknown [id number] 2.16.840.1.651561.3.579.2.1 286 1996 Unknown [id number] 2.16.840.1.541311.3.579.2.1 286 1996 Unknown [id number] 2.16.840.1.535278.3.579.2.1 286 1996 Unknown [id number] 2.16.840.1.549047.3.579.2.1 286 1996 Unknown [id number] 2.16.840.1.135232.3.579.2.1 286 1996 Unknown [id number] 2.16.840.1.637574.3.579.2.1 286 1996 Unknown [id number] 2.16.840.1.307909.3.579.2.1 259 1996 Unknown [id number] 2.16.840.1.860452.3.579.2.1 259 1996 Unknown [id number] 2.16.840.1.802876.3.579.2.1 259 1996 Unknown [id number] 2.16.840.1.948004.3.579.2.1 259 1996 Unknown [id number] 2.16.840.1.788521.3.579.2.1 259 1996 Unknown [id number] 2.16.840.1.339097.3.579.2.1 259 1996 Unknown [id number] 2.16.840.1.399615.3.579.2.1 259 1996 Unknown [id number] 2.16.840.1.043155.3.579.2.1 259 1996 Unknown [id number] 2.16.840.1.972994.3.579.2.1 259 1996 Unknown [id number] 2.16.840.1.272449.3.579.2.1 259 1996 Unknown [id number] 2.16.840.1.803136.3.579.2.1 259 1959 [employer] others) [id number] 1958 [employer] [id number] [employer] others) [id number] 2.16.840.1.350600.19 Social History Date Type Detail Facility Start: 11-02-2023 Sex Assigned At [facility] Start: 09-30-2017 End: 11-02-2023 Tobacco smoking status NHIS Never smoked tobacco [facility] Start: 11-02-2023 Tobacco use and exposure Smokeless tobacco non-user [facility] Start: 11-02-2023 Alcoholic beverage intake Lifetime non-drinker (finding) [facility] Start: 11-02-2023 History of Social function [facility] Start: 1995 Sex assigned at Not on file [facility] Start: 1995 Sex Assigned At [facility] Start: 12-10-2023 Tobacco smoking status NHIS Unknown if ever smoked [facility] Start: 12-10-2023 Alcohol intake Alcohol Use Details [facility] Start: 09-04-2023 Sexual Orientation Lesbian, lynch or homosexual [facility] Clinical Notes 06-25-2020 to 11-19-2023 Earle Chen MD - 11/02/2023 2:30 PM EDT Note Date & Type Note Facility 11-19-2023 Evaluation + Plan note Diagnostic Tests PendingT3 Free 11/19/23Thyroid Perox.tpo Ab 11/19/23TgAb+Thyroglobulin,CHING or ARLEN 11/19/23 [facility] 11-02-2023 History of Present illness Narrative GYNECOLOGY CONSULT NOTE REASON FOR VISIT Endometriosis Pelvic pain HISTORY OF PRESENT ILLNESS Ms. Medrano is a 27 y.o. (NSVDx2) who presents for consultation regarding endometriosis, pelvic pain. Records review: Moved back from [place] to [place] (2021) First diagnosed in 2018 Has had [...] tried to get her medical records in [place], but they would not send them. She [...] She had a women's health doctor in [facility] who told her she had stage IV endometriosis. She is no longer on the progesterone. Has tried vaginal valium does not help Her 2 previous pregnancies were with a previous partner. She and her are trying for another now. No BA in cucumber Partner has not had a SA yet [...] patient today. documented in this encounter [facility] 09-14-2023 Evaluation note Encounter Date [...] educated on the risks and benefits of manager intermediate use. Risk assessment was done. Patient is [...] Pt to call with any worsening symptoms. [employer] Other 12-21-2023 Evaluation note* Encounter Date Diagnosis Assessment Notes Treatment Notes Treatment Clinical Notes Jul, Generalized anxiety disorder (ICD-10 - F41.1) Jul, Endometriosis (ICD-1 0 - N80.9) [employer] Other 12-15-2023 Evaluation note* Encounter Date Diagnosis [...] educated on the risks and benefits of manager intermediate use. Risk assessment was done as well [...] intractable, unspecified migraine type (ICD-10 - G43.909) [facility] [employer] Other 11-06-2020 NoteOPERATIVE NOTE OPERATION DATE: 06-25-20 ANESTHETIC:General. 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 PREOPERATIVE DIAGNOSIS: 1. Dyspareunia. 2. Right and [...] lap, and needle counts were correct x2. [facility] Signed and Approved by: DR WON LESTER . 07/30/2020 13:02:00[facility] note* Clinical Note Date No Information [facility] Work Phone: Discharge summary* Clinical Note Date No Information [facility] Work Phone: [facility] [employer] Other Evaluation note* Diagnosis Endometriosis- Primary Endometriosis, site unspecified Pelvic pain Unspecified symptom associated with female genital organs Myalgia of pelvic floor Dysmenorrhea Dyspareunia in female Nausea and vomiting, unspecified vomiting type Bladder pain Other symptoms involving urinary system Anxiety Anxiety state, unspecified documented [facility] Diagnosis Onset Date Resolution Status Depression acute Generalized anxiety disorder acute Obsessive compulsive disorder acute PTSD (post-traumatic stress disorder) acute Depression acute Endometriosis acute Generalized anxiety disorder acute Obsessive compulsive disorder acute PTSD (post-traumatic stress disorder) acute TBI (traumatic brain injury) acute [facility] Work Phone: Evaluation note* Type Assessment Date No Information [facility] Work Phone: History and physical note* Clinical Note Date No Information [facility] Work Phone: History general Narrative - Reported* Type Description Date Medical History Anxiety Medical History Stage 4 Endometriosis Medical History Depression with manic episodes Medical History OCD Medical History PTSD Medical History TBI Surgical History Endometriosis surgery x2 Surgical History [place] teeth Surgical History Injections in cervix [employer] Other History of Present illness Narrative* Encounter Date Complaint History Of Prese nt Illness No Information [facility] Work Phone: Hospital course Narrative No data available for this section [facility] No data available for this section [facility] Date Instruction Additional Infor mation No Information [facility] Work Phone: Progress note No data available for this section [facility] Clinical Note Date No Information [facility] Work Phone: Reason for referral (narrative)* Consultation (Routine) - New Request Specialty Diagnoses / Procedures Referred By Harris t Referred To Contact Psychology Diagnoses Pelvic pain Anxiety Earle Chen MD [address] [place] [address] Oksana Luu, PhD [address] [place] [address] Referral ID Status Reason Start Date Expiration Date V isits Requested Visits Authorized [id number] New Request 11/02/2023 11/26/2024 1 1 * Consultation (Routine) - New Request Specialty Diagnoses / Procedures Referred By Contac t Referred To Contact Integrative Medicine Diagnoses Pelvic pain Nausea and vomiting, unspecified vomiting type Earle Chen MD [address] [phone] Referral ID Status Reason Start Date Expiration Date V isits Requested Visits Authorized [id number] New Request 11/02/2023 11/26/2024 1 1 * Consultation (Routine) - New Request Specialty Diagnoses / Procedures Referred By Contac t Referred To Contact Gynecology Diagnoses Pelvic pain Myalgia of pelvic floor Bladder pain Earle Chen MD [address] [place] [address] Referral ID Status Reason Start Date Expiration Date V isits Requested Visits Authorized [id number] New Request 11/02/2023 11/26/2024 1 1 * MRI/CAT Scan (Routine) - New Request Specialty Diagnoses / Procedures Referred By Contac t Referred To Contact Diagnoses Endometriosis Pelvic pain Procedures MRI PELVIS WITH AND WITHOUT CONTRAST [place] MRI, PELVIS, COMBO Earle Chen MD [address] [place] [address] Referral ID Status Reason Start Date Expiration Date V isits Requested Visits Authorized [id number] New Request 11/02/2023 11/26/2024 1 1 [facility] Reason For Referral No Information [facility] Work Phone: Summary Purpose Family History No [...] Diagnosis 1 Endometriosis (N80.9 ) Referral Organization [facility] [employer] Referring Provider First Name Lucila Referring Provider Last Name Ellyrbacher Referring Provider Specialty Nurse Pract itioner Referred Organization [facility] Referred Provider Jena Suresh Referred Address ,[place], [place],[address] Referred Provider Specialty OB - Gynecol ogy [...] intractable, unspecified migraine type (G43.909) Referral Organization [facility] [employer] Referring Provider First Name Lucila Referring Provider Last Name Steveacher Referring Provider Specialty Nurse Pract itioner Referred Organization [facility] Referred Provider Herbie Arroyo Referred Address [address] [place] [address],[place], [place],[address] Referred Provider Specialty Neurology Referral Priority Routine [...] Diagnosis 1 Endometriosis (N80.9 ) Referral Organization [facility] [employer] Referring Provider First Name Lucila Referring Provider Last Name Steveacher Referring Provider Specialty Nurse Pract itioner Referred Organization [facility] Referred Address [address], [place],[address] Referred Provider Specialty Endocrinolog y Referral Priority [...] and content) DATE CREATED AUTHOR 12/15/2020 [facility] DATE CREATED AUTHOR AUTHOR'S ORGANIZ ATION 11/03/2023 [facility] DATE CREATED AUTHOR AUTHOR'S ORGANIZ ATION 11/20/2023 [facility] DATE CREATED AUTHOR AUTHOR'S ORGANIZ ATION 12/15/2023 [facility] DATE CREATED AUTHOR AUTHOR'S ORGANIZ ATION 04/01/2024 [facility] DATE CREATED AUTHOR AUTHOR'S ORGANIZ ATION 04/26/2024 [facility] dical Specialists EPIC REASON FOR VISIT (unrecogniz ed section and content) Reason Comments Consult Pt diagnosis with En dometriosis in 2018. Patient desire . 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 [address] [facility] [address] [place] [address] Referral ID Status Reason Start Date Expiration Date V isits Requested Visits Authorized [id number] New Request 10/23/2023 11/16/2024 1 1 Care Teams (unrecognized sec tion and content) Team Status: Active Member Role Status Dates Lucila Arnett APRN MINE ENVIRONMENTAL ENGINEER-C Primary Care Provider Active Team Status: Inactive Member Role Status Dates Lucila Arnett APRN MINE ENVIRONMENTAL ENGINEERJohn Attending Provider Act vinicius Start: September 14, 2023 End: September 14, 2023 Team Status: Inactive Member Role Status Dates Lucila Arnett APRN MINE ENVIRONMENTAL ENGINEER-C Primary Care Provider, Attending Provider Active Start: October 17, 2023 End: October 17, 2023 Team Status: Inactive Member Role Status Dates Lucila Arnett APRN MINE ENVIRONMENTAL ENGINEER-C Primary Care Provider, Attending Provider Active Start: [...] BE BASED ON THE PRIMARY CLINICAL RECORDS. [facility] [employer] [facility] provides no warranty or guarantee of the accuracy or completeness of information in this document.
[2024-05-03 09:39] LABS: Basophils Absolute Auto 0.1 10^3/uL (0.0-0.1); Basophils Percent Auto 0.8 % (0.2-2.0); Eosinophils Absolute Auto 0.1 10^3/uL (0.0-0.7); Eosinophils Percent Auto 1.3 % (0.9-7.0); Hematocrit 31.4 % (36.0-48.0); Hemoglobin 10.6 g/dL (12.0-16.0); Immature Granulocytes Abs Auto 0.22 10^3/uL (0.00-0.03); Immature Granulocytes Pct Auto 2.6 % (0.0-0.5); Lymphocytes Absolute Auto 1.5 10^3/uL (1.2-3.8); Lymphocytes Percent Auto 17.5 % (20.5-60.0); Mean Corpuscular HGB Conc 33.8 g/dL (29.9-35.2); Mean Corpuscular Hemoglobin 32.4 pg (26.7-34.0); Monocytes Absolute Auto 0.9 10^3/uL (0.3-0.8); Monocytes Percent Auto 10.6 % (1.7-12.0); Neutrophils Absolute Auto 5.7 10^3/uL (1.4-6.5); Neutrophils Percent Auto 67.2 % (43.0-75.0); Platelet Count 207 10^3/uL (150-450); Red Blood Count 3.27 10^6/uL (4.20-5.40); Red Cell Distribution Width 11.9 % (11.0-15.0); White Blood Count 8.5 10^3/uL (4.0-11.0)
[2024-05-03 10:00] LABS: Glucose 1 Hour 77 mg/dL (<130)
== END 2024-05-03 08:21 | disposition home or self-care (01) ==
LOC: LAB 08:21
PROVIDERS: PCP Nurse Practitioner Family; Visit Provider Obstetrics & Gynecology
DX: R73.09 Other abnormal glucose (principal); Z13.1 Encounter for screening for diabetes mellitus
CPT/HCPCS: 36415; 82950; 85025

== ENCOUNTER 2024-05-08 10:29 | Outpatient (OUT) | payer MEDICAID, SELFPAY ==
--- NOTE | 2024-05-08 10:32 | US_ITS ---
[address] [address] Patient Name: COLTON VERMA MRN: [id number] date: 1995 Sex: F Assigned Patient Location: [facility] Current Patient Location: [facility] Accession/Order Number: [id number] Exam Date: 05/08/2024 10:32 Report Date: 05/08/2024 12:30 At the request of: WON LESTER Procedure: US OB growth EXAMINATION: US OB growth HISTORY: GESTATIONAL DIABETES COMPARISON: No relevant comparison available. FINDINGS: Heart Rate: 144 bpm Amniotic Fluid Volume: 11.8 cm, largest fluid pocket 4.2 cm Number: 1 Position: Cephalic presentation, longitudinal lie BIOMETRY: BPD: 6.97 cm; 28 weeks 0 days; 17.70 % HC: 25.63 cm; 27 weeks 6 days; 4.90 % AC: 24.10 cm; 28 weeks 3 days; 32.70 % FL: 5.64 cm; 29 weeks 4 days; 62.10 % EFW: 1180.19 g; 36.80 %, 2 lbs. 13 oz. FL/AC: 23.40 FL/BPD: 80.92 HC/AC: 1.06 GESTATIONAL AGE: Age by EDC: 28 weeks 5 days SINA by EDC: 2024-07-26 Age by US: 28 weeks 3 days SINA by US: 2024-07-28 US/US OB growth IMPRESSION: Head circumference at the 5th percentile, otherwise normal interval growth Electronically authenticated by: DARLINE ESPITIA Date: 05/08/2024 12:30
--- OUTSIDE RECORDS SUMMARY | 2024-05-08 10:39 | XMS_ITS | CCD ---
Author Organization [facility] Inform ion [facility] Care Team Providers Care Television Station Manager Name Role Phone TREVON, DR UPTON [...] Referring Unavailable LUCILA ARNETT Primary Care Physician [phone] KHADRA ARNETT Attending Unava ilable KHADRA ARNETT [...] WON Attending Unavailable TREVON, WON Attending Unavailable PERDO TABOR Attending Unavailable TREVON, WON Attending Unavailable TREVON, WON Attending Unavailable TREVON, WON Attending Unavailable Allergies Allergy Classification Reported Allergen(s) Allergy Type Date of Onset Reaction(s) Facility Opioid Agonists (1 source) traMADol Drug Allergy 0 [facility] Repository (6 sources) traMADol; Translations: [TRAMADOL] Drug Allergy 4 Unknown, Unknown Reaction [facility] (6 sources) Lavender Oil; Translations: [LAVENDER OIL] Drug allergy 4 Unknown [facility] Repository (1 source) lavender (Lavandula angustifolia) Allergy to substance 4 Unknown Reaction [facility] (1 source) GALCANEZUMAB-GN ; Translations: [GALCANEZUMAB-G [facility]] Propensity to adverse reactions to drug (disorder) [...] oral solution (1 source) alpha-Adrenergic Agonist, Uncompetitive R-hjafuw-N-aspartate Receptor Antagonist, Sigma-1 Agonist Start: 09-30-2017 take [...] q6hr, # 10 tab(s), Refills(s) 0, Pharmacy: [facility] Start Date: 09/21/18 Status: Ordered [...] Facility HCG.beta subunit Qnon 2023 hCG Quant [id number] mIU/mL [facility] Comment on above: Order Comment: [...] method. Performed By: #### 2 1198-7 #### [facility] ([facility]) LAB [address] [place] [address] HCG.beta subunit Qnon 2023 hCG Quant 33809 mIU/mL Normal [facility] Comment on above: Order Comment: Pregn phill [...] method. Performed By: #### 2 1198-7 #### [facility] ([facility] LAB [address] [place] [address] HCG.beta subunit Qnon 2023 hCG Quant 52054 mIU/mL Normal [facility] Comment on above: Order Comment: Pregn phill [...] method. Performed By: #### 2 1198-7 #### [facility] ([facility] [address] [place] [address] HCG.beta subunit Qnon 2023 hCG Quant 85809 mIU/mL Normal [facility] Comment on above: Order Comment: Pregn phill [...] method. Performed By: #### 2 1198-7 #### [facility] ([facility] [address] [place] [address] HCG.beta subunit Qnon 2023 hCG Quant 2709 mIU/mL Normal [facility] Comment on above: Order Comment: Pregn phill [...] method. Performed By: #### 2 1198-7 #### [facility] ([facility] [address] [place] [address] HCG.beta subunit Qnon 2023 hCG Quant 776 mIU/mL Normal [facility] Comment on above: Order Comment: Pregn phill [...] method. Performed By: #### 2 1198-7 #### [facility] ([facility] [address] [place] [address] HCG.beta subunit Qnon 2023 hCG Quant 250 mIU/mL Normal [facility] Comment on above: Order Comment: Pregn phill [...] method. Performed By: #### 2 1198-7 #### [facility] ([facility] [address] [place] [address] .Thyroglobulin by IMAon Thyroglobulin [Mass/Vol] 5.0 ng/mL Invalid Interpretation Code 1.5-38.[address] [facility] Comment on above: Result Comment: Acco [...] by John Vish Immunometric Assay Performed at: [facility] [id number] PhD Johanny Nieto Performed By: #### 2 [id number], [id number], [id number], 5025140, [id number], [id number], [id number] #### [facility] Laboratory [address] [place] [address] T3 Freeon 11-20-2023 Free T3 [Mass/Vol] 3.2 pg/mL Invalid Interpretation Code 2.0-4.[address] [facility] Comment on above: Result Comment: Perf ormed at: [address] [id number] PhD Johanny Nieto Performed By: #### 2 905843, [id number], [id number], 9651939, [id number], [id number], [id number] #### [facility] Laboratory [address] [place] [address] TgAb+Thyroglobulinon 024 Thyroglobulin Ab Qn [IU]/mL Invalid Interpretation Code 0.0-0.[address] [facility] Comment on above: Result Comment: Thyr oglobulin Antibody measured by [employer] It should be noted that the presence of thyroglobulin antibodies may not be pathogenic nor diagnostic, especially at very low levels. The assay outpatient phlebotomist has found that four percent of individuals without evidence of thyroid disease or autoimmunity will have positive TgAb levels up to 4 IU/mL. Performed at: [address] [id number] PhD Johanny Nieto Performed By: #### 2 497145, [id number], [id number], 9249821, [id number], [id number], [id number] #### [facility] [address] [place] [address] Thyroid Perox.tpo Abon 11-19 TPO Ab Qn [IU]/mL Invalid Interpretation Code 0-[address] [facility] Comment on above: Result Comment: Perf ormed at: [address] [id number] PhD Johanny Nieto Performed By: #### 2 441287, [id number], 71712921, 2116179, [id number], [id number], [id number] #### [facility] [address] [place] [address] BhC Quanton 11-19-2023 HCG.beta subunit Qn 86 [...] 3 - 4 WEEKS = 500 - 16278' ' 4 - 5 WEEKS = 1000 - 56122' ' 5 - 6 WEEKS = 37787 - 403255' ' 6 - 8 WEEKS = 34903 - 106903' ' 8 - 12 WEEKS = 30162 - 682171' Performed By: #### 2 [id number] #### [facility] [address] [place] [address] CHEMISTRYOrdered By: SYSTEM SYSTEM on 11-19-2023 HCG.beta [...] 3 - 4 WEEKS = 500 - 79680' ' 4 - 5 WEEKS = 1000 - 44424' ' 5 - 6 WEEKS = 80057 - 216738' ' 6 - 8 WEEKS = 93014 - 246630' ' 8 - 12 WEEKS = 99452 - 243062' Iron [Mass/Vol] 161 ug/dL High 35 - 153 mcg/dL Remisol Chem Iron binding capacity [Mass/Vol] 316 ug/dL Normal 250 - 400 mcg/dL Remisol Chem Transferrin [Mass/Vol] 226 mg/dL Normal 200 - 370 mg/dL Remisol Chem TSH Qn 1.53 m[IU]/L Normal 0.34 - 5.60 mcIU/mL Remisol Chem Consent for Treatmenton Consent for Treatment [id number] .00TIFF Normal [facility] Ironon 11-19-2023 Iron [Mass/Vol] 161 microgram/dL High 35-153 [facility] Comment on above: Performed By: #### 2 739051, 06963436, 96720823, 8298101, 501001030, 957106137, [id number] #### [facility] [address] [place] [address] Physician Orderon 11-19-2023 Physician Order [id number] .00TIFF Normal [facility] TIBC Calculatedon 11-19-2023 Iron binding capacity [Mass/Vol] 316 microgram/dL Normal 250-[address] [facility] Comment on above: Performed By: #### 2 927236, 55787711, 51172474, 4945742, 035308825, 764699155, 58758666 #### [facility] [address] [place] [address] Transferrin [Mass/Vol] 226 mg/dL Normal 200-[address] [facility] Comment on above: Performed By: #### 2 782062, 58586774, 89851064, 8790591, 905669372, 887370268, 11874619 #### [facility] [address] [place] [address] TSH With T4fr Reflexon 11-18 TSH Qn 1.53 m[IU]/L Normal 0.34-5.[address] [facility] Comment on above: Performed By: #### 2 291653, 19550535, 05189918, 9666871, 839968671, 337975282, 90601064 #### [facility] [address] [place] [address] TSHon 07-12-2020 TSH 0.756 uIU/mL Normal 0.470-4.680 [facility] Comment on above: Performed By: #### T SH #### [facility] Laboratory [address] [place], [place] [address] Jayne Hamm TSH RANGE SEE BELOW Normal [facility] Comment on above: Result Comment: <0.3 4 UIU/ml HYPERTHYROID 0.34-5.60 UIU/ml EUTHYROID >5.60 UIU/ml HYPOTHYROID Performed By: #### T SH #### [facility] Laboratory [address] [place], [place] [address] Jayne Noris CBC AUTO DIFFon 06-25-2020 BASO # 0.1 103/ul Normal 0.0-0.1 [facility] Comment on above: Performed By: #### C BC #### [facility] [address] [place], [place] [address] Jayne Noris Basophils/100 WBC (Bld) 1.2 % Normal 0.2-2.0 [facility] Comment on above: Performed By: #### C BC #### [facility] [address] [place] [address] Jayne Noris EO # 0.2 103/ul Normal 0.0-0.7 [facility] Comment on above: Performed By: #### C BC #### [facility] [address] [place], [place] [address] Jayne Noris Eosinophils/100 WBC (Bld) 2.6 % Normal 0.9-7.0 [facility] Comment on above: Performed By: #### C BC #### [facility] [address] [place], [place] [address] Jayne Noris Erythrocyte distribution width (RBC) [Ratio] 12.0 % Normal 11.0-15.0 [facility] Comment on above: Performed By: #### C BC #### [facility] [address] [place] [address] Jayne Noris Hematocrit (Bld) [Volume fraction] 40.7 % Normal 36.0-48.0 [facility] Comment on above: Performed By: #### C BC #### [facility] [address] [place], [place] [address] Jayne Noris Hemoglobin (Bld) [Mass/Vol] 13.6 g/dL Normal 12.0-16.0 [facility] Comment on above: Performed By: #### C BC #### [facility] [address] [place] [address] Jayne Noris IG # 0.01 10e3/ul Normal 0.00-0.03 [facility] Comment on above: Performed By: #### C BC #### [facility] [address] [place] [address] Jayne Noris IG % 0.2 % Normal 0.0-0.5 [facility] Comment on above: Performed By: #### C BC #### [facility] [address] [place] [address] Jayne Noris LYMPH # 1.9 103/ul Normal 1.2-3.8 [facility] Comment on above: Performed By: #### C BC #### [facility] [address] [place] [address] Jaynejeremías Hamm Lymphocytes/100 WBC (Bld) 32.5 % Normal 20.5-60.0 [facility] Comment on above: Performed By: #### C BC #### [facility] [address] [place] [address] Jaynejeremías Hamm MANUAL DIFF REQ NO Normal [facility] Comment on above: Performed By: #### C BC #### [facility] [address] [place] [address] Jayne Noris MCH (RBC) [Entitic mass] 31.3 pg Normal 26.7-34.0 [facility] Comment on above: Performed By: #### C BC #### [facility] [address] [place] [address] Jaynejeremías Hamm MCHC (RBC) [Mass/Vol] 33.4 g/dL Normal 29.9-35.2 [facility] Comment on above: Performed By: #### C BC #### [facility] [address] [place] [address] Jayne Noris MCV (RBC) [Entitic vol] 93.6 fL Normal 81.0-99.0 [facility] Comment on above: Performed By: #### C BC #### [facility] [address] [place] [address] Jayne Noris MONO # 0.6 103/ul Normal 0.3-0.8 [facility] Comment on above: Performed By: #### C BC #### [facility] [address] [place], [place] [address] Jayne Hamm Monocytes/100 WBC (Bld) 10.4 % Normal 1.7-12.0 [facility] Comment on above: Performed By: #### C BC #### [facility] [address] [place] [address] Jaynejeremías Cruzen NEUT # 3.1 103/ul Normal 1.4-6.5 [facility] Comment on above: Performed By: #### C BC #### [facility] [address] [place] [address] Jayne Hamm Neutrophils/100 WBC (Bld) 53.1 % Normal 43.0-75.0 [facility] Comment on above: Performed By: #### C BC #### [facility] [address] [place] [address] Jayne Hamm Platelet mean volume (Bld) [Entitic vol] 8.9 fL Critically low 9.5-13.5 [facility] Comment on above: Performed By: #### C BC #### [facility] [address] [place], [place] [address] Jaynejeremías Cruzen PLT 265 103/ul Normal 150-450 [facility] Comment on above: Performed By: #### C BC #### [facility] [address] [place] [address] Ajyne Noris RBC 4.35 106/ul Normal 4.20-5.40 [facility] Comment on above: Performed By: #### C BC #### [facility] [address] [place] [address] Jayne Noris WBC 5.8 103/ul Normal 4.0-11.0 [facility] Comment on above: Performed By: #### C BC #### [facility] [address] [place], [place] [address] Jaynejeremías Cruzen PREG QUANT HCGon 06-25-2020 HCG QUANT 1.00 mIU/mL Normal [facility] Comment on above: Performed By: #### P REGQNT #### [facility] Laboratory [address] [place] [id number] Jayne Noris HCG RANGE SEE BELOW [facility] Comment on above: Result Comment: 5-50 0-1 WEEK 40-300 1-2 WEEKS 100-1,000 2-3 WEEKS 500-6,000 3-4 WEEKS 5,000-200,000 1-2 MONTHS 10,000-100,000 2-3 MONTHS 3,000-50,000 2ND TRIMESTER 1,000-50,000 3RD TRIMESTER Performed By: #### P REGQNT #### [facility] [address] [place] [address] Jayne Noris PAP ACOG PANEL 2: 21 to 29on 05-06-2020 . . Normal [facility] Comment on above: Performed By: #### 4 [id number] #### [facility] [address] [place] [address] Jaynejeremías Hamm Age Gdln ACOG Testing 22- [facility] Comment on above: Performed By: #### 4 [id number] #### [facility] [address] [place] [address] Jaynejeremías Hamm DIAGNOSIS: Comment Normal [facility] Comment on above: Result Comment: NEGA TIVE FOR INTRAEPITHELIAL LESION OR MALIGNANCY. Performed By: #### 4 [id number] #### [facility] [address] [place] [address] Jayne Noris Methodology: Comment Normal [facility] Comment on above: Result Comment: This liquid based SurePath(R) pap test was screened with the assistance of an image guided system. Performed By: #### 4 [id number] #### [facility] [address] [place] [address] Jayne Noris Note: Comment [facility] Comment on above: Result Comment: The Pap smear is a screening test designed to aid in the detection of premalignant and malignant conditions of the uterine cervix. It is not a diagnostic procedure and should not be used as the sole means of detecting cervical cancer. Both false-positive and false-negative reports do occur. . Performed By: #### 4 [id number] #### [facility] [address] [place] [address] Jayne Hamm Performed by: Comment Normal [facility] Comment on above: Result Comment: Suman Rdz, Gis Professor (ASCP) Performed By: #### 4 [id number] #### [facility] [address] [place] [address] Jayne Hamm Reflex Criteria: Comment Normal [facility] Comment on above: Result Comment: The HPV DNA reflex criteria were not met with this specimen result therefore, no HPV testing was performed. . Performed By: #### 4 [id number] #### [facility] [address] [place] [address] Jayne Noris Specimen adequacy: Comment Normal [facility] Comment on above: Result Comment: Sati sfactory for evaluation. Endocervical and/or squamous metaplastic cells (endocervical component) are present. Performed By: #### 4 [id number] #### [facility] [address] [place] [address] Jayne Hamm US PELVIS AND TRANSVAGon US [...] by: DARLINE ESPITIA Date: 2020-04-30 14:54 Normal [facility] Vital Signs Date Time Vital Sign Value Performing Clinician Facility 12-10-2023 09:18-0400 Diastolic blood pressure 84 mm[Hg] Hill Ann-Marie Work Phone: [facility] 12-10-2023 09:18-0400 Heart rate 101 /min Hill Ann-Marie Work Phone: [facility] 12-10-2023 09:18-0400 Respiratory rate 12 /min Hill Jacobsen Work Phone: [facility] 12-10-2023 09:18-0400 Systolic blood pressure 132 mm[Hg] Hill Jacobsen Work Phone: [facility] 11-02-2023 14:27-0400 Body height 180.3 cm Earle Chen MD Work Phone: [facility] 11-02-2023 14:27-0400 Body mass index (BMI) [Ratio] 20.04 kg/m2 Earle Chen MD Work Phone: [facility] 11-02-2023 14:27-0400 Body weight 65.18 kg Earle Chen MD Work Phone: [facility] 11-02-2023 14:27-0400 Diastolic blood pressure 80 mm[Hg] Earle Chen MD Work Phone: [facility] 11-02-2023 14:27-0400 Systolic blood pressure 110 mm[Hg] Earle Chen MD Work Phone: [facility] 09-14-2023 11:30-0500 Body height 180.34 cm Lucila Arnett Other [facility] 09-14-2023 11:30-0500 Body mass index (BMI) [Ratio] 20.92 kg/m2 Lucila Arnett Other [facility] Other 09-14-2023 11:30-0500 Body weight 68.04 kg Lucila Arnett Other [facility] Other 09-14-2023 11:30-0500 Body weight 68.03 kg [facility] 09-14-2023 11:30-0500 Diastolic blood pressure 68 mm[Hg] Lucila Arnett Other [facility] 09-14-2023 11:30-0500 Respiratory rate 16 /min Lucila Arnett Other [facility] Other 09-14-2023 11:30-0500 SaO2% (BldA) [Mass fraction] 100 % Lucila Arnett Other [facility] Other 09-14-2023 11:30-0500 Systolic blood pressure 110 mm[Hg] Lucila Dasilvar Other [facility] 08-03-2023 10:00-0500 Body height 180.34 cm Lucila Arnett Other [facility] Other 08-03-2023 10:00-0500 Body mass index (BMI) [Ratio] 20.78 kg/m2 Lucila Arnett Other [facility] Other 08-03-2023 10:00-0500 Body weight 67.59 kg Lucila Arnett Other [facility] Other 08-03-2023 10:00-0500 Diastolic blood pressure 66 mm[Hg] Lucila Dasilvar Other [facility] Other 08-03-2023 10:00-0500 SaO2% (BldA) [Mass fraction] 98 % Lucila Arnett Other [facility] Other 08-03-2023 10:00-0500 Systolic blood pressure 100 mm[Hg] Lucila Arnett Other [facility] Other Encounters Encounter Date Encounter Type Care Provider Facility Start: 04-24-2024 End: 04-24-2024 ambulatory WON TREVON Not Available Start: 04-10-2024 End: 04-10-2024 ambulatory WON TREVON Not Available Start: 03-31-2024 End: 03-31[facility]: 03-27-[facility]24 End: 03-27-2024 ambulatory WON TREVON Not Available Start: 03-25-2024 End: 03-25-2024 ambulatory WON R [facility] Start: 03-13-2024 End: 03-13-2024 ambulatory PEDRO TABOR Not Available Start: 02-28-2024 End: 02-28-2024 ambulatory WON TREVON Not Available Start: 02-25-2024 End: 02-25-2024 ambulatory WON R [facility] Start: 02-13-2024 End: 02-13-2024 ambulatory WON TREVON Not Available Start: 01-30-2024 End: 01-30-2024 ambulatory WON TREVON Not Available Start: 01-21-2024 End: 01-21-2024 ambulatory WON R [facility] Start: 01-17-2024 End: 01-17-2024 ambulatory WON TREVON Not Available Start: 01-03-2024 End: 01-03-2024 ambulatory WON TREVON Not Available Start: 12-26-2023 End: 12-26-2023 ambulatory WON TREVON Not Available Start: 12-13-2023 End: 12-13-2023 ambulatory WON TREVON Not Available Start: 12-10-2023 End: 12-11-2023 ambulatory HAKEEM YODER [facility] Start: 12-10-2023 End: 12-10-2023 Encounter identifier Hill Gautam Ann-Marie Work Phone: [facility] [place] Start: 12-06-2023 End: 12-07-2023 ambulatory HAKEEM YODER [facility] Start: 12-03-2023 End: 12-04-2023 ambulatory HAKEEM YODER [facility] Start: 11-29-2023 End: 11-30-2023 ambulatory HAKEEM YODER [facility] Start: 11-26-2023 End: 11-27-2023 ambulatory HAKEEM YODER [facility] Start: 11-23-2023 End: 11-24-2023 ambulatory HAKEEM YODER [facility] Start: 11-21-2023 End: 11-22-2023 ambulatory HAKEEM YODER [facility] Start: 11-19-2023 End: 11-20-2023 ambulatory CLOTH MENDER LUCILA ARNETT Facility:[facility] Start: 11-19-2023 End: 11-19-2023 Patient encounter procedure LUCILA ARNETT [facility] Start: 11-14-2023 End: 11-14-2023 ambulatory [facility] Work Phone: Start: 11-14-2023 End: 11-14-2023 Patient encounter procedure [facility] Work Phone: Start: 11-02-2023 ambulatory EARLE CHEN Facility:[facility] Start: 11-02-2023 End: 11-02-[address] [facility] 60 minutes Earle Chen MD Work Phone: [facility] [place] Comment on above: Endometriosis (Prima ry Dx); Pelvic pain; Myalgia of pelvic floor; Dysmenorrhea; Dyspareunia in female; Nausea and vomiting, unspecified vomiting type; Bladder pain; Anxiety Start: 10-17-2023 End: 10-17-2023 Patient encounter procedure [facility] Work Phone: Start: 09-14-2023 End: 09-14-2023 ambulatory Lucila Arnett Other [facility] Other Start: 09-14-2023 Office outpatient vi sit 25 minutes Lucila Arnett [facility] Start: 09-14-2023 End: 09-14-2023 Patient encounter procedure [facility]- Start: 08-09-2023 End: 08-09-2023 ambulatory Lucila Arnett Other [facility] Other Start: 08-09-2023 Telephone encounter Lucila Dan her [facility] Start: 08-03-2023 End: 08-03-2023 ambulatory Lucila Arnett Other [facility] Other Start: 08-03-2023 Office outpatient ne w 30 minutes Lucila Arnett [facility] Start: 08-03-2023 Telephone encounter Lucila Dan her [employer] Start: 07-12-2020 End: 07-13-[address] WON [...] Endometriosis Pelvic pain Expected: 11/02/2023, Expires: 11/01/2024 [facility] Comment on above: Expected: 11/02/2023 , Expires: 11/01/2024 Start: 10-17-2023 Patient referral [facility] Work Phone: Start: 04-20-2023 COVID-19 VACCINE ( season) COVID-19 VACCINE ( season) [facility] Start: 04-20-2023 Influenza vaccination INFLUENZA VACC INE (#1) [facility] [facility] Start: 2017 Screening for malign ant neoplasm of cervix CERVICAL CANCER SCREENING DISCUSSION [facility] Start: 11-08-2015 Hepatitis B vaccination HEP B VACCINE (1 of 3 - 19+ 3-dose series) [facility] Start: 11-08-2015 Third diphtheria, te tanus and acellular pertussis (DTaP) vaccination TDAP (ADULT) [facility] Start: 2012 Screening for Chlamy david trachomatis CHLAMYDIA SCREEN [facility] Start: 11-08-2011 HIV screening HIV SCREENING DISCUSSION [facility] Start: 11-08-2011 Vaccination for kale n papillomavirus HPV VACCINE ADOL (1 - 3-dose series) [facility] Start: 1996 Hepatitis C screening HEPATITI S C VIRUS SCREENING [facility] Start: 1996 Screening for Chlamy david trachomatis GONORRHEA SCREEN [facility] Start: 1996 Tetanus vaccination TETANUS [facility] Patient referral [facility] Work Phone: Payers Date Payer Category Payer Medicaid [id number] 2023 [employer] others) [id number] 2023 [employer] others) [facility] [id number] 2023-Present [address] [place] [address] [id number] .[id number] 2023 [employer] ( and others) [id number] 1996 Unknown [id number] 2.16.840.1.496966.3.579.2.5 93 1996 Unknown [id number] 2.16.840.1.727849.3.579.2.5 93 1996 Unknown [id number] 2.16.840.1.394168.3.579.2.5 93 1996 Unknown [id number] 2.16.840.1.850093.3.579.2.5 93 1996 Unknown [id number] 2.16.840.1.670587.3.579.2.5 93 1996 Unknown [id number] 2.16.840.1.567873.3.579.2.5 94 1996 Unknown [id number] 2.16.840.1.187927.3.579.2.7 27 1996 Unknown [id number] 2.16.840.1.955606.3.579.2.1 143 1996 Unknown [id number] 2.16.840.1.186481.3.579.2.1 143 1996 Unknown [id number] 2.16.840.1.116036.3.579.2.1 143 1996 Unknown [id number] 2.16.840.1.604632.3.579.2.1 143 1996 Unknown [id number] 2.16.840.1.728871.3.579.2.1 143 1996 Unknown [id number] 2.16.840.1.305889.3.579.2.1 143 1996 Unknown [id number] 2.16.840.1.871941.3.579.2.1 143 1996 Unknown [id number] 2.16.840.1.694741.3.579.2.1 286 1996 Unknown [id number] 2.16.840.1.414570.3.579.2.1 286 1996 Unknown [id number] 2.16.840.1.897791.3.579.2.1 286 1996 Unknown [id number] 2.16.840.1.513476.3.579.2.1 286 1996 Unknown [id number] 2.16.840.1.874566.3.579.2.1 286 1996 Unknown [id number] 2.16.840.1.184588.3.579.2.1 286 1996 Unknown [id number] 2.16.840.1.194228.3.579.2.1 259 1996 Unknown [id number] 2.16.840.1.588663.3.579.2.1 259 1996 Unknown [id number] 2.16.840.1.461010.3.579.2.1 259 1996 Unknown [id number] 2.16.840.1.503277.3.579.2.1 259 1996 Unknown [id number] 2.16.840.1.540548.3.579.2.1 259 1996 Unknown [id number] 2.16.840.1.311956.3.579.2.1 259 1996 Unknown [id number] 2.16.840.1.918137.3.579.2.1 259 1996 Unknown [id number] 2.16.840.1.378864.3.579.2.1 259 1996 Unknown [id number] 2.16.840.1.650390.3.579.2.1 259 1996 Unknown [id number] 2.16.840.1.881848.3.579.2.1 259 1996 Unknown [id number] 2.16.840.1.185371.3.579.2.1 259 1959 [employer] ( [employer] others) [id number] 1959 [employer] ( [employer] others) [id number] [employer] others) [id number] 2.16.840.1.266175.19 Social History Date Type Detail Facility Start: 11-02-2023 Sex Assigned At [facility] Start: 09-30-2017 End: 11-02-2023 Tobacco smoking status NHIS Never smoked tobacco [facility] Start: 11-02-2023 Tobacco use and exposure Smokeless tobacco non-user [facility] Start: 11-02-2023 Alcoholic beverage intake Lifetime non-drinker (finding) [facility] Start: 11-02-2023 History of Social function [facility] Start: 1996 Sex assigned at Not on file [facility] Start: 1996 Sex Assigned At Female [facility] Start: 12-10-2023 Tobacco smoking status NHIS Unknown if ever smoked [facility] Start: 12-10-2023 Alcohol intake Alcohol Use Details [facility] Start: 09-04-2023 Sexual Orientation Lesbian, lynch or homosexual [facility] Clinical Notes 06-25-2020 to 11-19-2023 Earle Chen MD - 11/02/2023 2:30 PM EDT Note Date & Type Note Facility 11-19-2023 Evaluation + Plan note Diagnostic Tests PendingT3 Free 11/19/23Thyroid Perox.tpo Ab 11/19/23TgAb+Thyroglobulin,CHING or ARLEN 11/19/23 [facility] 11-02-2023 History of Present illness Narrative GYNECOLOGY CONSULT NOTE REASON FOR VISIT Endometriosis Pelvic pain HISTORY OF PRESENT ILLNESS Ms. Medrano is a 27 y.o. (NSVDx2) who presents for consultation regarding endometriosis, pelvic pain. Records review: Moved back from [place] to [place] (2021) First diagnosed in 2018 Has had [...] tried to get her medical records in [place], but they would not send them. She [...] She had a women's health doctor in [facility] who told her she had stage IV endometriosis. She is no longer on the progesterone. Has tried vaginal valium does not help Her 2 previous pregnancies were with a previous partner. She and her are trying for another now. No BA in [place] Partner has not had a SA yet [...] not patent, BA may recommend removal Recommend AB consultation ORM/RGI handout shared Anxiety Takes Klonopin [...] patient today. 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 Risk assessment was done. Patient [...] Pt to call with any worsening symptoms. 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 Risk assessment was done as well [...] migraine type (ICD-10 - G43.909) [facility] Other 11-06-2020 NoteOPERATIVE NOTE OPERATION DATE: 06-25-20 ANESTHETIC:General. DIRECTOR OF SLEEP:None. PREOPERATIVE DIAGNOSIS: 1. Dyspareunia. 2. Right and [...] lap, and needle counts were correct x2. [facility] Signed and Approved by: DR WON LESTER . 07/30/2020 13:02:00[facility] note* Clinical Note Date No Information [facility] Work Phone: Discharge summary* Clinical Note Date No Information [facility] Work Phone: [facility] Other [facility] note* Diagnosis Endometriosis- Primary Endometriosis, site unspecified Pelvic pain Unspecified symptom associated with female genital organs Myalgia of pelvic floor Dysmenorrhea Dyspareunia in female Nausea and vomiting, unspecified vomiting type Bladder pain Other symptoms involving urinary system Anxiety Anxiety state, unspecified [facility] Diagnosis Onset Date Resolution Status Depression acute Generalized anxiety disorder acute Obsessive compulsive disorder acute PTSD (post-traumatic stress disorder) acute Depression acute Endometriosis acute Generalized anxiety disorder acute Obsessive compulsive disorder acute PTSD (post-traumatic stress disorder) acute TBI (traumatic brain injury) acute [facility] Work Phone: Evaluation note* Type Assessment Date No Information [facility] Work Phone: History and physical note* Clinical Note Date No Information [facility] Work Phone: History general Narrative - Reported* Type Description Date Medical History Anxiety Medical History Stage 4 Endometriosis Medical History Depression with manic episodes Medical History OCD Medical History PTSD Medical History TBI Surgical History Endometriosis surgery x2 Surgical History Gobles teeth Surgical History Injections in cervix [facility] Other History of Present illness Narrative* Encounter Date Complaint History Of Prese nt Illness No Information [facility] Work Phone: Hospital course Narrative No data available for this section [facility] No data available for this section [facility] Date Instruction Additional Infor mation No Information [facility] Work Phone: Progress note No data available for this section [facility] Clinical Note Date No Information [facility] Work Phone: Reason for referral (narrative)* Consultation (Routine) - New Request Specialty Diagnoses / Procedures Referred By Harris t Referred To Contact Psychology Diagnoses Pelvic pain Anxiety Earle Chen MD [address] [place] [address] Oksana Luu, PhD [address] [place] [address] Referral ID Status Reason Start Date Expiration Date V isits Requested Visits Authorized [id number] New Request 11/02/2023 11/26/2024 1 1 * Consultation (Routine) - New Request Specialty Diagnoses / Procedures Referred By Contac t Referred To Contact Integrative Medicine Diagnoses Pelvic pain Nausea and vomiting, unspecified vomiting type Earle Chen MD [address] [id number] Referral ID Status Reason Start Date Expiration Date V isits Requested Visits Authorized [id number] New Request 11/02/2023 11/26/2024 1 1 * Consultation (Routine) - New Request Specialty Diagnoses / Procedures Referred By Contac t Referred To Contact Gynecology Diagnoses Pelvic pain Myalgia of pelvic floor Bladder pain Earle Chen MD [address] [place] [address] Referral ID Status Reason Start Date Expiration Date V isits Requested Visits Authorized [id number] New Request 11/02/2023 11/26/2024 1 1 * MRI/CAT Scan (Routine) - New Request Specialty Diagnoses / Procedures Referred By Contac t Referred To Contact Diagnoses Endometriosis Pelvic pain Procedures MRI PELVIS WITH AND WITHOUT CONTRAST ID MRI, PELVIS, COMBO Earle Chen MD [address] [place] [address] Referral ID Status Reason Start Date Expiration Date V isits Requested Visits Authorized [id number] New Request 11/02/2023 11/26/2024 1 1 [facility] Reason For Referral No Information [facility] Work Phone: Summary Purpose Family History No [...] 1 Endometriosis (N80.9 ) Referral Organization [facility] [employer] [place] Referring Provider First Name Lucila Referring Provider Last Name Ellyrbacher Referring Provider Specialty Nurse Pract itioner Referred Organization [facility] Referred Provider Jena Suresh Referred Address ,[place], [place],[address] Referred Provider Specialty OB - Gynecol ogy [...] unspecified migraine type (G43.909) Referral Organization [facility] [employer] angel Referring Provider First Name Lucila Referring Provider Last Name Steveacher Referring Provider Specialty Nurse Pract itioner Referred Organization [facility] Referred Provider Herbie Arroyo Referred Address [address] [place] [address],[place], [place],[address] Referred Provider Specialty Neurology Referral Priority Routine [...] 1 Endometriosis (N80.9 ) Referral Organization [facility] [employer] Referring Provider First Name Lucila Referring Provider Last Name Steveacher Referring Provider Specialty Nurse Pract itioner Referred Organization [facility] Referred Address [address], [place],[address] Referred Provider Specialty Endocrinolog y Referral Priority [...] and content) DATE CREATED AUTHOR 12/15/2020 [facility] DATE CREATED AUTHOR AUTHOR'S ORGANIZ ATION 11/03/2023 [facility] DATE CREATED AUTHOR AUTHOR'S ORGANIZ ATION 11/20/2023 [facility] DATE CREATED AUTHOR AUTHOR'S ORGANIZ ATION 12/15/2023 [facility] DATE CREATED AUTHOR AUTHOR'S ORGANIZ ATION 04/01/2024 [facility] DATE CREATED AUTHOR AUTHOR'S ORGANIZ ATION 04/26/[address] [facility] dical Specialists EPIC REASON FOR VISIT (unrecogniz ed section and content) Reason Comments Consult Pt diagnosis with En dometriosis in 2018. Patient desire . Specialty Diagnoses / Procedures Referred By Harris gautam Referred To Contact ASSISTANT PROFESSOR OF LIFE SCIENCES Diagnoses Endometriosis Lucila Arnett, KHADRA [address] [place] [address] [facility] [address] [place] [address] Referral ID Status Reason Start Date Expiration Date V isits Requested Visits Authorized [id number] New Request 10/23/2023 11/16/2024 1 1 Care Teams (unrecognized sec tion and content) Team Status: Active Member Role Status Dates Lucila Arnett APRN GUEST SERVICES REPRESENTATIVE-C Primary Care Provider Active Team Status: Inactive Member Role Status Dates Lucila Arnett APRN GUEST SERVICES REPRESENTATIVEJohn Attending Provider Act vinicius Start: September 14, 2023 End: September 14, 2023 Team Status: Inactive Member Role Status Dates Lucila Arnett APRN GUEST SERVICES REPRESENTATIVE-C Primary Care Provider, Attending Provider Active Start: October 17, 2023 End: October 17, 2023 Team Status: Inactive Member Role Status Dates Lucila Arnett APRN GUEST SERVICES REPRESENTATIVE-C Primary Care Provider, Attending Provider Active Start: [...] ON THE PRIMARY CLINICAL RECORDS. [facility] [employer]. provides no warranty or guarantee of the accuracy or completeness of information in this document.
== END 2024-05-08 10:30 | disposition home or self-care (01) ==
LOC: NOMS 10:29
PROVIDERS: PCP Nurse Practitioner Family; Visit Provider Obstetrics & Gynecology
DX: R73.09 Other abnormal glucose (principal); R10.9 Unspecified abdominal pain; O26.893 Other specified pregnancy related conditions, third trimester; O09.293 Supervision of pregnancy with other poor reproductive or obstetric history, third trimester; O09.893 Supervision of other high risk pregnancies, third trimester; Z3A.28 28 weeks gestation of pregnancy; R10.2 Pelvic and perineal pain
CPT/HCPCS: 76816

== ENCOUNTER 2024-05-13 14:32 | Outpatient (OUT) | payer MEDICAID, SELFPAY ==
--- NOTE | 2024-05-13 14:37 | US_ITS ---
[address] [address] Patient Name: COLTON VERMA MRN: [id number] date: 1995 Sex: F Assigned Patient Location: [facility] Current Patient Location: Accession/Order Number: [id number] Exam Date: 05/13/2024 14:38 Report Date: 05/14/2024 04:29 At the request of: WON LESTER Procedure: US OB cervical length EXAMINATION: US OB cervical length HISTORY: HISTORY OF DELIVERY COMPARISON: Ultrasound OB cervical length 03/13/2024 TECHNIQUE: Transabdominal sonographic examination was performed for obstetrical and evaluation. FINDINGS: Cervix Length: 4.33 cm ; closed. No appreciable shortening or funneling during Valsalva. GESTATIONAL AGE: Age by EDC: 29 weeks 3 days SINA by EDC: 2024-07-26 US/US OB cervical length IMPRESSION: 1. Closed cervix 4.3 cm in length. Electronically authenticated by: ISIAH ROJAS Date: 05/14/2024 04:29
--- OUTSIDE RECORDS SUMMARY | 2024-05-13 14:54 | XMS_ITS | CCD ---
Author Organization [facility] Inform ion [facility] Care Team Providers Care Air Brake Man Name Role Phone TREVON, DR UPTON Admitting [...] Referring Unavailable LUCILA ARNETT Primary Care Physician [phone] KHADRA ARNETT Attending Unava ilable KHADRA ARNETT [...] (1 source) traMADol Drug Allergy 0 [facility] [place] Repository (6 sources) traMADol; Translations: [TRAMADOL] Drug Allergy 4 Unknown, Unknown Reaction [facility] (6 sources) Lavender Oil; Translations: [LAVENDER OIL] Drug allergy 4 Unknown [facility] Repository (1 source) lavender (Lavandula angustifolia) Allergy to substance 4 Unknown Reaction [facility] (1 source) GALCANEZUMAB-GN ; Translations: [GALCANEZUMAB-G [facility]] Propensity to adverse reactions to drug [...] Start: 12-26-2022 amoxicillin 50 0 mg capsule May-09-2023 - Active brompheniramine maleate 0.4 mg/ml / dextromethorphan hydrobromide 2 mg/ml / pseudoephedrine hydrochloride 6 mg/ml oral solution (1 source) alpha-Adrenergic Agonist, Uncompetitive J-ijfhqt-T-aspartate Receptor Antagonist, Sigma-1 Agonist Start: 09-30-2017 take [...] 10 tab(s), Refills(s) 0, Pharmacy: [facility] 1984 Start Date: 09/21/18 Status: Ordered Completed/Discontinued [...] Facility HCG.beta subunit Qnon 2023 hCG Quant [id number] mIU/mL Normal [facility] Comment on above: Order Comment: Pregn [...] method. Performed By: #### 2 1198-7 #### [facility] [address] [place] [address] HCG.beta subunit Qnon 2023 hCG Quant 33769 mIU/mL Normal [facility] [place] Comment on above: Order Comment: Pregn phill [...] method. Performed By: #### 2 1198-7 #### [facility] [address] [place] [address] HCG.beta subunit Qnon 2023 hCG Quant 85047 mIU/mL Normal [facility] [place] Comment on above: Order Comment: Pregn phill [...] method. Performed By: #### 2 1198-7 #### [facility] [address] [place] [address] HCG.beta subunit Qnon 2023 hCG Quant 53763 mIU/mL Normal [facility] [place] Comment on above: Order Comment: Pregn phill [...] method. Performed By: #### 2 1198-7 #### [facility] [address] [place] [address] HCG.beta subunit Qnon 2023 hCG Quant 2709 mIU/mL Normal [facility] [place] Comment on above: Order Comment: Pregn phill [...] method. Performed By: #### 2 1198-7 #### [facility] [address] [place] [address] HCG.beta subunit Qnon 2023 hCG Quant 776 mIU/mL Normal [facility] [place] Comment on above: Order Comment: Pregn phill [...] method. Performed By: #### 2 1198-7 #### [facility] [address] [place] [address] HCG.beta subunit Qnon 2023 hCG Quant 250 mIU/mL Normal [facility] [place] Comment on above: Order Comment: Pregn phill [...] method. Performed By: #### 2 1198-7 #### [facility] [address] [place] [address] .Thyroglobulin by IMAon Thyroglobulin [Mass/Vol] 5.0 ng/mL Invalid Interpretation Code 1.5-38.5 [facility] Comment on above: Result Comment: Acco [...] is 0.1 ng/mL Thyroglobulin measured by John Clarkridge Immunometric Assay Performed at: [facility] [id number] PhD Johanny Nieto Performed By: #### 2 103609, [id number], [id number], [id number], [id number], [id number], [id number] #### [facility] [address] [place] [address] T3 Freeon 11-20-2023 Free T3 [Mass/Vol] 3.2 pg/mL Invalid Interpretation Code 2.0-4.4 [facility] Comment on above: Result Comment: Perf ormed at: [address] [id number] PhD Johanny Nieto Performed By: #### 2 067936, [id number], [id number], [id number], [id number], [id number], [id number] #### [facility] [address] [place] [address] TgAb+Thyroglobulinon 024 Thyroglobulin Ab Qn [IU]/mL Invalid Interpretation Code 0.0-0.9 [facility] Comment on above: Result Comment: Thyr oglobulin Antibody measured by [employer] Methodology It should be noted that the presence of thyroglobulin antibodies may not be pathogenic nor diagnostic, especially at very low levels. The assay building services engineer has found that four percent of individuals without evidence of thyroid disease or autoimmunity will have positive TgAb levels up to 4 IU/mL. Performed at: [address] [id number] PhD Johanny Nieto Performed By: #### 2 019232, [id number], [id number], [id number], [id number], [id number], [id number] #### [facility] [address] [place] [address] Thyroid Perox.tpo Abon 11-19 TPO Ab Qn [IU]/mL Invalid Interpretation Code 0-34 [facility] Comment on above: Result Comment: Perf ormed at: [address] [id number] PhD Johanny Nieto Performed By: #### 2 570495, [id number], [id number], [id number], [id number], [id number], [id number] #### Joselito [facility] [address] [place] [address] BhCG Quanton 11-19-2023 HCG.beta subunit Qn 86 m[IU]/mL High 1-[address] Fish [address] [facility] Comment on above: Result Comment: 'F N ON < 1 - 3' ' 0.2 - 1 WEEK = 5 TO 50' ' 1 - 2 WEEKS = 50 - 500' ' 2 - 3 WEEKS = 100 - 5000' ' 3 - 4 WEEKS = 500 - 42820' ' 4 - 5 WEEKS = 1000 - 95112' ' 5 - 6 WEEKS = 92200 - 901166' ' 6 - 8 WEEKS = 49865 - 862914' ' 8 - 12 WEEKS = 14040 - 386421' Performed By: #### 2 945530 #### Yee [facility] [address] [place] [address] CHEMISTRYOrdered By: SYSTEM SYSTEM on 11-19-2023 HCG.beta [...] 3 - 4 WEEKS = 500 - 33996' ' 4 - 5 WEEKS = 1000 - 88618' ' 5 - 6 WEEKS = 29126 - 025133' ' 6 - 8 WEEKS = 08429 - 948656' ' 8 - 12 WEEKS = 93011 - 959428' Iron [Mass/Vol] 161 ug/dL High 35 - 153 mcg/dL Remisol Chem Iron binding capacity [Mass/Vol] 316 ug/dL Normal 250 - 400 mcg/dL Remisol Chem Transferrin [Mass/Vol] 226 mg/dL Normal 200 - 370 mg/dL Remisol Chem TSH Qn 1.53 m[IU]/L Normal 0.34 - 5.60 mcIU/mL Remisol Chem Consent for Treatmenton 04-0 Consent for Treatment [id number] .00TIFF Normal [facility] Ironon 11-19-2023 Iron [Mass/Vol] 161 microgram/dL High 35-153 Fis [facility] Comment on above: Performed By: #### 2 192175, [id number], 34369554, 3654029, [id number], [id number], [id number] #### [facility] [address] [place] [address] Physician Orderon 11-19-2023 Physician Order [id number] .00TIFF Normal [facility] TIBC Calculatedon 11-19-2023 Iron binding capacity [Mass/Vol] 316 microgram/dL Normal 250-400 [facility] Comment on above: Performed By: #### 2 690409, 78590869, 51444704, 1587376, 836165592, [id number], [id number] #### [facility] [address] [place] [address] Transferrin [Mass/Vol] 226 mg/dL Normal 200-370 [facility] Comment on above: Performed By: #### 2 731176, [id number], 56599371, 4327942, [id number], [id number], 74343210 #### [facility] [address] [place] [address] TSH With T4fr Reflexon 11-18 TSH Qn 1.53 m[IU]/L Normal 0.34-5.60 [facility] Comment on above: Performed By: #### 2 031847, [id number], 78562549, 9960224, 698462745, 459252679, [id number] #### [facility] [address] [place] [address] TSHon 07-12-2020 TSH 0.756 uIU/mL Normal 0.470-4.680 [facility] Comment on above: Performed By: #### T #### [facility] [place] [facility] [address] [place], [place] [address] Jayne Cruzen TSH RANGE SEE BELOW Normal [facility] [place] Comment on above: Result Comment: <0.3 4 UIU/ml HYPERTHYROID 0.34-5.60 UIU/ml EUTHYROID >5.60 UIU/ml HYPOTHYROID Performed By: #### T SH #### [facility] [place] [facility] [address] [place], [place] [id number] Jayne Noris CBC AUTO DIFFon 06-25-2020 BASO # 0.1 103/ul Normal 0.0-0.1 [facility] Comment on above: Performed By: #### C BC #### [facility] [place] [facility] [address] [place], [place] [address] Jayne Noris Basophils/100 WBC (Bld) 1.2 % Normal 0.2-2.0 [facility] Comment on above: Performed By: #### C BC #### [facility] [place] [facility] [address] [place] [address] Jayne Noris EO # 0.2 103/ul Normal 0.0-0.7 [facility] Comment on above: Performed By: #### C BC #### [facility] [place] [facility] [address] [place] [address] Jayne Noris Eosinophils/100 WBC (Bld) 2.6 % Normal 0.9-7.0 [facility] Comment on above: Performed By: #### C BC #### [facility] [place] [facility] [address] [place], [place] [address] Jaynejeremías Cruzen Erythrocyte distribution width (RBC) [Ratio] 12.0 % Normal 11.0-15.0 [facility] [place] Comment on above: Performed By: #### C BC #### [facility] [place] [facility] [address] [place] [address] Jayne Noris Hematocrit (Bld) [Volume fraction] 40.7 % Normal 36.0-48.0 [facility] Comment on above: Performed By: #### C BC #### [facility] [place] [facility] [address] [place], [place] [address] Jayne Noris Hemoglobin (Bld) [Mass/Vol] 13.6 g/dL Normal 12.0-16.0 [facility] [place] Comment on above: Performed By: #### C BC #### [facility] [place] [facility] [address] [place] [address] Jayne Noris IG # 0.01 10e3/ul Normal 0.00-0.03 [facility] Comment on above: Performed By: #### C BC #### [facility] [place] [facility] [address] [place] [address] Jayne Noris IG % 0.2 % Normal 0.0-0.5 [facility] Comment on above: Performed By: #### C BC #### [facility] [place] [facility] [address] [place] [address] Jayne Noris LYMPH # 1.9 103/ul Normal 1.2-3.8 [facility] [place] Comment on above: Performed By: #### C BC #### [facility] [place] [facility] [address] [place] [address] Jayne Noris Lymphocytes/100 WBC (Bld) 32.5 % Normal 20.5-60.0 [facility] Comment on above: Performed By: #### C BC #### [facility] [place] [facility] [address] [place] [address] Jayne Noris MANUAL DIFF REQ NO Normal [facility] Comment on above: Performed By: #### C BC #### [facility] [place] [facility] [address] [place] [address] Jayne Noris MCH (RBC) [Entitic mass] 31.3 pg Normal 26.7-34.0 [facility] Comment on above: Performed By: #### C BC #### [facility] [place] [facility] [address] [place] [address] Jayne Noris MCHC (RBC) [Mass/Vol] 33.4 g/dL Normal 29.9-35.2 [facility] [place] Comment on above: Performed By: #### C BC #### [facility] [place] [facility] [address] [place] [address] Jayne Noris MCV (RBC) [Entitic vol] 93.6 fL Normal 81.0-99.0 [facility] Comment on above: Performed By: #### C BC #### [facility] [place] [facility] [address] [place] [address] Jayne Noris MONO # 0.6 103/ul Normal 0.3-0.8 [facility] Comment on above: Performed By: #### C BC #### [facility] [place] [facility] [address] [place] [address] Jayne Hamm Monocytes/100 WBC (Bld) 10.4 % Normal 1.7-12.0 [facility] Comment on above: Performed By: #### C BC #### [facility] [place] [facility] [address] [place] [address] Jayne Hamm NEUT # 3.1 103/ul Normal 1.4-6.5 [facility] [place] Comment on above: Performed By: #### C BC #### [facility] [place] [facility] [address] [place] [address] Jayne Hamm Neutrophils/100 WBC (Bld) 53.1 % Normal 43.0-75.0 [facility] Comment on above: Performed By: #### C BC #### [facility] [place] [facility] [address] [place] [address] Jayne Hamm Platelet mean volume (Bld) [Entitic vol] 8.9 fL Critically low 9.5-13.5 [facility] Comment on above: Performed By: #### C BC #### [facility] [place] [facility] [address] [place] [address] Jayne Hamm PLT 265 103/ul Normal 150-450 [facility] [place] Comment on above: Performed By: #### C BC #### [facility] [place] [facility] [address] [place] [address] Jayne Cruzen RBC 4.35 106/ul Normal 4.20-5.40 [facility] [place] Comment on above: Performed By: #### C BC #### [facility] [place] [facility] [address] [place], [place] [address] Jaynejeremías Cruzen WBC 5.8 103/ul Normal 4.0-11.0 [facility] [place] Comment on above: Performed By: #### C BC #### [facility] [place] [facility] [address] [place] [address] Jayne Hamm PREG QUANT HCGon 06-25-2020 HCG QUANT 1.00 mIU/mL Normal [facility] [place] Comment on above: Performed By: #### P REGQNT #### [facility] [place] [facility] [address] [place], [place] [address] Jaynejeremías Hamm HCG RANGE SEE BELOW [facility] Comment on above: Result Comment: 5-50 0-1 WEEK 40-300 1-2 WEEKS 100-1,000 2-3 WEEKS 500-6,000 3-4 WEEKS 5,000-200,000 1-2 MONTHS 10,000-100,000 2-3 MONTHS 3,000-50,000 2ND TRIMESTER 1,000-50,000 3RD TRIMESTER Performed By: #### P REGQNT #### [facility] [place] [facility] [address] [place], [place] [address] Jaynejeremías Hamm PAP ACOG PANEL 2: 21 to 29on 05-06-[address] [facility] Comment on above: Performed By: #### 4 [id number] #### [facility] [place] [facility] [address] [place], [place] [address] Jaynejeremías Hamm Age Gdln ACOG Testing - [facility] Comment on above: Performed By: #### 4 [id number] #### [facility] [place] [facility] [address] [place] [id number] Jaynejeremías Hamm DIAGNOSIS: Comment Normal [facility] Comment on above: Result Comment: NEGA TIVE FOR INTRAEPITHELIAL LESION OR MALIGNANCY. Performed By: #### 4 [id number] #### [facility] [place] [facility] [address] [place], [place] [address] Jaynejeremías Hamm Methodology: Comment Normal [facility] Comment on above: Result Comment: This liquid based SurePath(R) pap test was screened with the assistance of an image guided system. Performed By: #### 4 [id number] #### [facility] [place] [facility] [address] [place], [place] [address] Jaynejeremías Hamm Note: Comment Normal [facility] Comment on above: Result Comment: The Pap smear is a screening test designed to aid in the detection of premalignant and malignant conditions of the uterine cervix. It is not a diagnostic procedure and should not be used as the sole means of detecting cervical cancer. Both false-positive and false-negative reports do occur. . Performed By: #### 4 [id number] #### [facility] [place] [facility] [address] [place], [place] [address] Jayne Hamm Performed by: Comment Normal [facility] Comment on above: Result Comment: Suman Rdz, Garment Tag Stringer (ASCP) Performed By: #### 4 [id number] #### [facility] [place] [facility] [address] [place] [id number] Jayne Hamm Reflex Criteria: Comment Normal [facility] Comment on above: Result Comment: The HPV DNA reflex criteria were not met with this specimen result therefore, no HPV testing was performed. . Performed By: #### 4 [id number] #### [facility] [place] [facility] [address] [place] [address] Jayne Hamm Specimen adequacy: Comment Normal [facility] Comment on above: Result Comment: Sati sfactory for evaluation. Endocervical and/or squamous metaplastic cells (endocervical component) are present. Performed By: #### 4 [id number] #### [facility] [place] [facility] [address] [place] [address] Jayne Hamm US PELVIS AND TRANSVAGon US [...] by: DARLINE ESPITIA Date: 2020-04-30 14:[address] [facility] Vital Signs Date Time Vital Sign Value Performing Clinician Facility 12-10-2023 09:18-0400 Diastolic blood pressure 84 mm[Hg] Hill Jacobsen Work Phone: [facility] 12-10-2023 09:18-0400 Heart rate 101 /min Hill Jacobsen Work Phone: [facility] 12-10-2023 09:18-0400 Respiratory rate 12 /min Hill Jacobsen Work Phone: [facility] 12-10-2023 09:18-0400 Systolic blood pressure 132 mm[Hg] Hill Jacobsen Work Phone: [facility] 11-02-2023 14:27-0400 Body height 180.3 cm Earle Chen MD Work Phone: [facility] 11-02-2023 14:27-0400 Body mass index (BMI) [Ratio] 20.04 kg/m2 Earle Chen MD Work Phone: [facility] 11-02-2023 14:27-0400 Body weight 65.18 kg Earle Chen MD Work Phone: [facility] 11-02-2023 14:27-0400 Diastolic blood pressure 80 mm[Hg] Earle Chen MD Work Phone: [facility] 11-02-2023 14:27-0400 Systolic blood pressure 110 mm[Hg] Earle Chen MD Work Phone: [facility] 09-14-2023 11:30-0500 Body height 180.34 cm Lucila Arnett Other [facility] 09-14-2023 11:30-0500 Body mass index (BMI) [Ratio] 20.92 kg/m2 Lucila Arnett Other [employer] Other 09-14-2023 11:30-0500 Body weight 68.04 kg Lucila Arnett Other [employer] Other 09-14-2023 11:30-0500 Body weight 68.03 kg [facility] 09-14-2023 11:30-0500 Diastolic blood pressure 68 mm[Hg] Lucila Arnett Other [facility] 09-14-2023 11:30-0500 Respiratory rate 16 /min Lucila Melquiades Other [employer] Other 09-14-2023 11:30-0500 SaO2% (BldA) [Mass fraction] 100 % Lucila Arnett Other [employer] Other 09-14-2023 11:30-0500 Systolic blood pressure 110 mm[Hg] Lucila Arnett Other [facility] 08-03-2023 10:00-0500 Body height 180.34 cm Lucila Arnett Other [employer] Other 08-03-2023 10:00-0500 Body mass index (BMI) [Ratio] 20.78 kg/m2 Lucila Arnett Other [employer] Other 08-03-2023 10:00-0500 Body weight 67.59 kg Lucila Arnett Other [employer] Other 08-03-2023 10:00-0500 Diastolic blood pressure 66 mm[Hg] Lucila Dasilvar Other [employer] Other 08-03-2023 10:00-0500 SaO2% (BldA) [Mass fraction] 98 % Lucila Arnett Other [employer] Other 08-03-2023 10:00-0500 Systolic blood pressure 100 mm[Hg] Lucila Melquiades Other [facility] [employer] Other Encounters Encounter Date Encounter Type Care Provider Facility Start: 05-08-2024 End: 05-08-2024 ambulatory WON TREVON Not Available Start: 04-24-2024 End: 04-24-2024 ambulatory WON TREVON Not Available Start: 04-10-2024 End: 04-10-2024 ambulatory WON TREVON Not Available Start: 03-31-2024 End: 03-31-2024 ambulatory WON R TREVON [facility] Start: 03-27-2024 End: 03-27-2024 ambulatory WON TREVON Not Available Start: 03-25-2024 End: 03-25-2024 ambulatory WON R [facility] Start: 03-13-2024 End: 03-13-2024 ambulatory PEDRO TABOR Not Available Start: 02-28-2024 End: 02-28-2024 ambulatory WON TREVON Not Available Start: 02-25-2024 End: 02-25-2024 ambulatory WON R [facility] Start: 02-13-2024 End: 02-13-2024 ambulatory WON TREVON Not Available Start: 01-30-2024 End: 01-30-2024 ambulatory WON TREVON Not Available Start: 01-21-2024 End: [facility]: 01-17-[facility]24 End: 01-17-2024 ambulatory WON TREVON Not Available Start: 01-03-2024 End: 01-03-2024 ambulatory WON TREVON Not Available Start: 12-26-2023 End: 12-26-2023 ambulatory WON TREVON Not Available Start: 12-13-2023 End: 12-13-2023 ambulatory WON TREVON Not Available Start: 12-10-2023 End: 12-11-2023 ambulatory HAKEEM YODER [facility] [place] Start: 12-10-2023 End: 12-10-2023 Encounter identifier Hill Jacobsen Work Phone: [place] Start: 12-06-2023 End: 12-07-2023 ambulatory HAKEEM YODER [facility] [place] Start: 12-03-2023 End: 12-04-2023 ambulatory HAKEEM YODER [facility] [place] Start: 11-29-2023 End: 11-30-2023 ambulatory HAKEEM YODER [facility] [place] Start: 11-26-2023 End: 11-27-2023 ambulatory HAKEEM YODER [facility] [place] Start: 11-23-2023 End: 11-24-2023 ambulatory HAKEEM YODER [facility] [place] Start: 11-21-2023 End: 11-22-2023 ambulatory HAKEEM YODER [facility] [place] Start: 11-19-2023 End: 11-20-2023 ambulatory KHADRA ARNETT Facility:[facility] Start: 11-19-2023 End: 11-19-2023 Patient encounter procedure LUCILA ARNETT [facility] Start: 11-14-2023 End: 11-14-2023 ambulatory [facility] Work Phone: Start: 11-14-2023 End: 11-14-2023 Patient encounter procedure [facility] Work Phone: Start: 11-02-2023 ambulatory EARLE CHEN Facility:[facility] Start: 11-02-2023 End: 11-02-2023 Office outpatient [facility] 60 minutes Earle Chen MD Work Phone: [facility] [place] Comment on above: Endometriosis (Prima ry Dx); Pelvic pain; Myalgia of pelvic floor; Dysmenorrhea; Dyspareunia in female; Nausea and vomiting, unspecified vomiting type; Bladder pain; Anxiety Start: 10-17-2023 End: 10-17-2023 Patient encounter procedure [facility] Work Phone: Start: 09-14-2023 End: 09-14-2023 ambulatory Lucila Arnett Other [employer] Other Start: 09-14-2023 Office outpatient vi sit 25 minutes Lucila Arnett [facility] Start: 09-14-2023 End: 09-14-2023 Patient encounter procedure [facility] Start: 08-09-2023 End: 08-09-2023 ambulatory Lucila Arnett Other [employer] Other Start: 08-09-2023 Telephone encounter Lucila Dan her [facility] Start: 08-03-2023 End: 08-03-2023 ambulatory Lucila Arnett Other [employer] Other Start: 08-03-2023 Office outpatient ne w 30 minutes Lucila Arnett [facility] Start: 08-03-2023 Telephone encounter Lucila Dan her [facility] Start: 07-12-2020 End: 07-13-[address] WON [...] Endometriosis Pelvic pain Expected: 11/02/2023, Expires: 11/01/2024 [facility] Comment on above: Expected: 11/02/2023 , Expires: 11/01/2024 Start: 10-17-2023 Patient referral [facility] Work Phone: Start: 04-20-2023 COVID-19 VACCINE ( season) COVID-19 VACCINE ( season) [facility] Start: 04-20-2023 Influenza vaccination INFLUENZA VACC INE (#1) [facility] Start: 2017 Screening for malign ant neoplasm of cervix CERVICAL CANCER SCREENING DISCUSSION [facility] Start: 11-08-2015 Hepatitis B vaccination HEP B VACCINE (1 of 3 - 19+ 3-dose series) [facility] Start: 11-08-2015 Third diphtheria, te tanus and acellular pertussis (DTaP) vaccination TDAP (ADULT) [facility] Start: 2012 Screening for Chlamy david trachomatis CHLAMYDIA SCREEN [facility] Start: 11-08-2011 HIV screening HIV SCREENING DISCUSSION [facility] Start: 11-08-2011 Vaccination for kale n papillomavirus HPV VACCINE ADOL (1 - 3-dose series) [facility] Start: 1996 Hepatitis C screening HEPATITI S C VIRUS SCREENING [facility] Start: 1996 Screening for Chlamy david trachomatis GONORRHEA SCREEN [facility] Start: 1996 Tetanus vaccination TETANUS [facility] Patient referral [facility] Work Phone: Payers Date Payer Category Payer Medicaid [id number] 2023 [employer] others) [id number] 2023 [employer] others) [facility] [id number] 2023-Present [address] [place] [address] [id number] .[id number] 2023 [employer] ( and others) [id number] 1996 Unknown [id number] 2.16.840.1.607982.3.579.2.5 93 1996 Unknown [id number] 2.16.840.1.137478.3.579.2.5 93 1996 Unknown [id number] 2.16.840.1.752091.3.579.2.5 93 1996 Unknown [id number] 2.16.840.1.053355.3.579.2.5 93 1996 Unknown [id number] 2.16.840.1.186569.3.579.2.5 93 1996 Unknown [id number] 2.16.840.1.775043.3.579.2.5 94 1996 Unknown [id number] 2.16.840.1.809484.3.579.2.7 27 1996 Unknown [id number] 2.16.840.1.380498.3.579.2.1 143 1996 Unknown [id number] 2.16.840.1.301608.3.579.2.1 143 1996 Unknown [id number] 2.16.840.1.684716.3.579.2.1 143 1996 Unknown [id number] 2.16.840.1.058858.3.579.2.1 143 1996 Unknown [id number] 2.16.840.1.764286.3.579.2.1 143 1996 Unknown [id number] 2.16.840.1.682330.3.579.2.1 143 1996 Unknown [id number] 2.16.840.1.812690.3.579.2.1 143 1996 Unknown [id number] 2.16.840.1.017756.3.579.2.1 286 1996 Unknown [id number] 2.16.840.1.924053.3.579.2.1 286 1996 Unknown [id number] 2.16.840.1.804392.3.579.2.1 286 1996 Unknown [id number] 2.16.840.1.148391.3.579.2.1 286 1996 Unknown [id number] 2.16.840.1.798176.3.579.2.1 286 1996 Unknown [id number] 2.16.840.1.954757.3.579.2.1 286 1996 Unknown [id number] 2.16.840.1.482729.3.579.2.1 259 1996 Unknown [id number] 2.16.840.1.076891.3.579.2.1 259 1996 Unknown [id number] 2.16.840.1.163648.3.579.2.1 259 1996 Unknown [id number] 2.16.840.1.493005.3.579.2.1 259 1996 Unknown [id number] 2.16.840.1.957379.3.579.2.1 259 1996 Unknown [id number] 2.16.840.1.595608.3.579.2.1 259 1996 Unknown [id number] 2.16.840.1.020372.3.579.2.1 259 1996 Unknown [id number] 2.16.840.1.787984.3.579.2.1 259 1996 Unknown [id number] 2.16.840.1.259779.3.579.2.1 259 1996 Unknown [id number] 2.16.840.1.422811.3.579.2.1 259 1996 Unknown [id number] 2.16.840.1.399307.3.579.2.1 259 1996 Unknown [id number] 2.16.840.1.310668.3.579.2.1 259 1959 [employer] others) [id number] 1959 [employer] ( and others) [id number] [employer] others) [id number] 2.16.840.1.439421.19 Social History Date Type Detail Facility Start: 11-02-2023 Sex Assigned At [facility] Start: 09-30-2017 End: 11-02-2023 Tobacco smoking status NHIS Never smoked tobacco [facility] Start: 11-02-2023 Tobacco use and exposure Smokeless tobacco non-user [facility] Start: 11-02-2023 Alcoholic beverage intake Lifetime non-drinker (finding) [facility] Start: 11-02-2023 History of Social function [facility] Start: 1996 Sex assigned at Not on file [facility] Start: 1996 Sex Assigned At Female [facility] Start: 12-10-2023 Tobacco smoking status NHIS Unknown if ever smoked [facility] Start: 12-10-2023 Alcohol intake Alcohol Use Details [facility] Start: 09-04-2023 Sexual Orientation Lesbian, lynch or homosexual [facility] Clinical Notes 06-25-2020 to 11-19-2023 Earle Chen MD - 11/02/2023 2:30 PM EDT Note Date & Type Note Facility 11-19-2023 Evaluation + Plan note Diagnostic Tests PendingT3 Free 11/19/23Thyroid Perox.tpo Ab 11/19/23TgAb+Thyroglobulin,CHING or ARLEN 11/19/23 [facility] 11-02-2023 History of Present illness Narrative GYNECOLOGY CONSULT NOTE REASON FOR VISIT Endometriosis Pelvic pain HISTORY OF PRESENT ILLNESS Ms. Medrano is a 27 y.o. (NSVDx2) who presents for consultation regarding endometriosis, pelvic pain. Records review: Moved back from [place] to [place] (2021) First diagnosed in 2017 Has had [...] tried to get her medical records in [place], but they would not send them. She [...] had a women's health doctor in [facility] who told her she had stage IV endometriosis. She is no longer on the progesterone. Has tried vaginal valium does not help Her 2 previous pregnancies were with a previous partner. She and her are trying for another now. No BA in [place] Partner has not had a SA yet [...] patient today. documented in this encounter [facility] 09-14-2023 Evaluation note Encounter Date Diagnosis [...] educated on the risks and benefits of middle or intermediate school principal use. Risk assessment was done. Patient is [...] Pt to call with any worsening symptoms. [facility] [facility] Other 12-21-2023 Evaluation note* Encounter Date Diagnosis Assessment Notes Treatment Notes Treatment Clinical Notes Jul, Generalized anxiety disorder (ICD-10 - F41.1) Jul, Endometriosis (ICD-1 0 - N80.9) [facility] Other 12-15-2023 Evaluation note* Encounter Date Diagnosis [...] educated on the risks and benefits of usp use. Risk assessment was done as well [...] intractable, unspecified migraine type (ICD-10 - G43.909) [facility] Other 11-06-2020 NoteOPERATIVE NOTE OPERATION DATE: 06-25-20 ANESTHETIC:General. BUILDING SERVICES ENGINEER:None. PREOPERATIVE DIAGNOSIS: 1. Dyspareunia. 2. Right [...] lap, and needle counts were correct x2. [facility] Signed and Approved by: DR WON LESTER . 07/30/2020 13:02:00[facility] note* Clinical Note Date No Information [facility] Work Phone: Discharge summary* Clinical Note Date No Information [facility] Work Phone: [facility] [employer] Other Evaluation note* Diagnosis Endometriosis- Primary Endometriosis, site unspecified Pelvic pain Unspecified symptom associated with female genital organs Myalgia of pelvic floor Dysmenorrhea Dyspareunia in female Nausea and vomiting, unspecified vomiting type Bladder pain Other symptoms involving urinary system Anxiety Anxiety state, unspecified [facility] Onset Date Resolution Status Depression acute Generalized anxiety disorder acute Obsessive compulsive disorder acute PTSD (post-traumatic stress disorder) acute Depression acute Endometriosis acute Generalized anxiety disorder acute Obsessive compulsive disorder acute PTSD (post-traumatic stress disorder) acute TBI (traumatic brain injury) acute [facility] Work Phone: Evaluation note* Type Assessment Date No Information [facility] Work Phone: History and physical note* Clinical Note Date No Information [facility] [employer] Phone: History general Narrative - Reported* Type Description Date Medical History Anxiety Medical History Stage 4 Endometriosis Medical History Depression with manic episodes Medical History OCD Medical History PTSD Medical History TBI Surgical History Endometriosis surgery x2 Surgical History Donahue teeth Surgical History Injections in cervix [facility] [employer] Other History of Present illness Narrative* Encounter Date Complaint History Of Prese nt Illness No Information [facility] [employer] Phone: Hospital course Narrative No data available for this section [facility] No data available for this section [facility] Date Instruction Additional Infor mation No Information [facility] [employer] Phone: Progress note No data available for this section [facility] Clinical Note Date No Information [facility] [employer] Phone: Reason for referral (narrative)* Consultation (Routine) - New Request Specialty Diagnoses / Procedures Referred By Contac t Referred To Contact Psychology Diagnoses Pelvic pain Anxiety Earle Chen MD [address] [place] [address] Oksana Luu, PhD [address] [place] [address] Referral ID Status Reason Start Date Expiration Date V isits Requested Visits Authorized [id number] New Request 11/02/2023 11/26/2024 1 1 * Consultation (Routine) - New Request Specialty Diagnoses / Procedures Referred By Contac t Referred To Contact Integrative Medicine Diagnoses Pelvic pain Nausea and vomiting, unspecified vomiting type Earle Chen MD [address] [id number] Referral ID Status Reason Start Date Expiration Date V isits Requested Visits Authorized [id number] New Request 11/02/2023 11/26/2024 1 1 * Consultation (Routine) - New Request Specialty Diagnoses / Procedures Referred By Contac t Referred To Contact Gynecology Diagnoses Pelvic pain Myalgia of pelvic floor Bladder pain Earle Chen MD [address] [place] [address] Referral ID Status Reason Start Date Expiration Date V isits Requested Visits Authorized [id number] New Request 11/02/2023 11/26/2024 1 1 * MRI/CAT Scan (Routine) - New Request Specialty Diagnoses / Procedures Referred By Contac t Referred To Contact Diagnoses Endometriosis Pelvic pain Procedures MRI PELVIS WITH AND WITHOUT CONTRAST NE MRI, PELVIS, COMBO Earle Chen MD [address] [place] [address] Referral ID Status Reason Start Date Expiration Date V isits Requested Visits Authorized [id number] New Request 11/02/2023 11/26/2024 1 1 [facility] Reason For Referral No Information [facility] Work Phone: Summary Purpose Family History No [...] Diagnosis 1 Endometriosis (N80.9 ) Referral Organization [facility] [employer] [facility] Referring Provider First Name Lucila Referring Provider Last Name Steveacher Referring Provider Specialty Nurse Pract itioner Referred Organization [facility] Referred Provider Jena Suresh Referred Address ,[place], [place],[address] Referred Provider Specialty OB - Gynecol ogy [...] intractable, unspecified migraine type (G43.909) Referral Organization [facility] [employer] Referring Provider First Name Lucila Referring Provider Last Name Steveacher Referring Provider Specialty Nurse Pract itionealaina Referred Organization [facility] Referred Provider Herbie Arroyo Referred Address [address],[address] Referred Provider Specialty Neurology Referral Priority Routine [...] Diagnosis 1 Endometriosis (N80.9 ) Referral Organization [facility] Musht[employer] ortiz Referring Provider First Name Luicla Referring Provider Last Name Melquiades Referring Provider Specialty Nurse Tatyana serrano Referred Organization [facility] Referred Address [address] [place], [place],[address] Referred Provider Specialty Endocrinolog y Referral Priority Routine General Notes EsvinLesley hunter 01:18:58 PM >pt has west. we do [...] and content) DATE CREATED AUTHOR 12/15/2020 [facility] DATE CREATED AUTHOR AUTHOR'S ORGANIZ ATION 11/03/[address] [facility] DATE CREATED AUTHOR AUTHOR'S ORGANIZ ATION 11/20/2023 Yee Gabe [facility] DATE CREATED AUTHOR AUTHOR'S ORGANIZ ATION 12/15/2023 [facility] DATE CREATED AUTHOR AUTHOR'S ORGANIZ ATION 04/01/2024 [facility] DATE CREATED AUTHOR AUTHOR'S ORGANIZ ATION 05/10/2024 [facility] dical Specialists EPIC REASON FOR VISIT (unrecogniz ed section and content) Reason Comments Consult Pt diagnosis with En dometriosis in 2018. Patient desire . Specialty Diagnoses / Procedures Referred By Harris gautam Referred To Contact BUSINESS DIVISION CHAIR Diagnoses Endometriosis Lucila Arnett, KHADRA [address] [facility] [place] [address] [facility] [address] [place] [address] Referral ID Status Reason Start Date Expiration Date V isits Requested Visits Authorized [id number] New Request 10/23/2023 11/16/2024 1 1 Care Teams (unrecognized sec tion and content) Team Status: Active Member Role Status Dates Lucila Arnett APRN [employer] Primary Care Provider Active Team Status: Inactive Member Role Status Dates Lucila Arnett APRN [employer] Attending Provider Act vinicius Start: September 14, 2023 End: September 14, 2023 Team Status: Inactive Member Role Status Dates Lucila Arnett APRN [employer] Primary Care Provider, Attending Provider Active Start: October 17, 2023 End: October 17, 2023 Team Status: Inactive Member Role Status Dates Lucila Arnett APRN [employer] Primary Care Provider, Attending Provider Active Start: [...] BE BASED ON THE PRIMARY CLINICAL RECORDS. [facility] [employer] [facility]. provides no warranty or guarantee of the accuracy or completeness of information in this document.
== END 2024-05-13 14:33 | disposition home or self-care (01) ==
LOC: NOMS 14:33
PROVIDERS: PCP Nurse Practitioner Family; Visit Provider Obstetrics & Gynecology
DX: Z36.86 Encounter for antenatal screening for cervical length (principal); O09.213 Supervision of pregnancy with history of pre-term labor, third trimester; Z3A.29 29 weeks gestation of pregnancy
CPT/HCPCS: 76817

== ENCOUNTER 2024-05-30 07:07 | Outpatient (OUT) | payer OTHER, SELFPAY ==
--- NOTE | 2024-05-30 | US_ITS ---
[address] [address] Patient Name: COLTON VERMA MRN: [id number] date: 1995 Sex: F Assigned Patient [facility] Current Patient Location: [facility] Accession/Order Number: [id number] Exam Date: 05/30/2024 10:43 Report Date: 05/30/2024 11:11 At the request of: WON LESTER Procedure: US OB BPP w non-stress EXAMINATION: US OB BPP w non-stress HISTORY: History of labor O09.891 COMPARISON: No relevant comparison available. TECHNIQUE: Ultrasound biophysical profile was performed in the radiology department. non-reactive stress testing was performed by nursing staff in the birthing center. FINDINGS: BREATHING MOVEMENTS: 2 GROSS BODY MOVEMENTS: 2 TONE: 2 QUALITATIVE AMNIOTIC FLUID VOLUME: 2 PRESENTATION: CEPHALIC HEART RATE: 155.17 bpm AMNIOTIC FLUID VOLUME: 14.2 cm GESTATIONAL AGE: 30 weeks 6 days US/US OB BPP w non-stress IMPRESSION: Total biophysical profile score: 8/8 Electronically authenticated by: DARLINE ESPITIA Date: 05/30/2024 11:11
--- OUTSIDE RECORDS SUMMARY | 2024-05-30 07:10 | XMS_ITS | CCD ---
Author Organization [facility] Inform ion [facility] Care Team Providers Care Manager Fixed Income Name Role Phone TREVON, DR UPTON Admitting [...] DR UPTON Attending Unavailable Lucila Arnett Unavailable [phone] Unavailable Primary Care Provider Unavailabl e [...] (1 source) traMADol Drug Allergy 0 [facility] Repository (6 sources) traMADol; Translations: [TRAMADOL] Drug Allergy 4 Unknown, Unknown Reaction [facility] (6 sources) Lavender Oil; Translations: [LAVENDER OIL] Drug allergy 4 Unknown [facility] Repository (1 source) lavender (Lavandula angustifolia) Allergy to substance 4 Unknown Reaction [facility] (1 source) GALCANEZUMAB-GN ; Translations: [GALCANEZUMAB-G [facility]] Propensity to adverse reactions to drug [...] oral solution (1 source) alpha-Adrenergic Agonist, Uncompetitive H-utxqeo-B-aspartate Receptor Antagonist, Sigma-1 Agonist Start: 09-30-2017 take [...] q6hr, # 10 tab(s), Refills(s) 0, Pharmacy: [facility] 1984 Start Date: 09/21/18 Status: Ordered [...] Facility HCG.beta subunit Qnon 2023 hCG Quant [id number] mIU/mL Normal [facility] Comment on above: Order Comment: Pregn [...] By: #### 2 1198-7 #### [facility] ([facility] [address] [place] [address] HCG.beta subunit Qnon 2023 hCG Quant [id number] mIU/mL Normal [facility] Comment on above: Order Comment: [...] By: #### 2 1198-7 #### [facility] ([facility] [address] [place] [address] HCG.beta subunit Qnon 2023 hCG Quant [id number] mIU/mL Normal [facility] Comment on above: Order Comment: [...] By: #### 2 1198-7 #### [facility] ([facility] [address] [place] [address] HCG.beta subunit Qnon 2023 hCG Quant [id number] mIU/mL Normal [facility] Comment on above: Order Comment: [...] By: #### 2 1198-7 #### [facility] ([facility] [address] [place] [address] HCG.beta subunit Qnon 2023 hCG Quant 2709 mIU/mL Normal [facility] Comment on above: Order Comment: [...] By: #### 2 1198-7 #### [facility] ([facility] [address] [place] [address] HCG.beta subunit Qnon 2023 hCG Quant 776 mIU/mL Normal [facility] Comment on above: Order Comment: [...] By: #### 2 1198-7 #### [facility] ([facility] [address] [place] [address] HCG.beta subunit Qnon 2023 hCG Quant 250 mIU/mL Normal [facility] Comment on above: Order Comment: [...] By: #### 2 1198-7 #### [facility] ([facility] [address] [place] [address] .Thyroglobulin by IMAon Thyroglobulin [Mass/Vol] 5.0 ng/mL Invalid Interpretation Code 1.5-38.5 [facility] Comment on above: [...] by John Vish Immunometric Assay Performed at: [facility] [id number] PhD Johanny Nieto Performed By: #### 2 [id number], [id number], [id number], [id number], [id number], [id number], [id number] #### [facility] Laboratory [address] [place] [address] T3 Freeon 11-20-2023 Free T3 [Mass/Vol] 3.2 pg/mL Invalid Interpretation Code 2.0-4.4 [facility] Comment on above: Result Comment: Perf ormed at: [address] [id number] PhD Johanny Nieto Performed By: #### 2 693728, [id number], [id number], 6324970, [id number], [id number], [id number] #### [facility] [address] [place] [address] TgAb+Thyroglobulinon 024 Thyroglobulin Ab Qn [IU]/mL Invalid Interpretation Code 0.0-0.9 [facility] Comment on above: Result Comment: Thyr oglobulin Antibody measured by Fipeo Methodology It should be noted that the presence of thyroglobulin antibodies may not be pathogenic nor diagnostic, especially at very low levels. The assay auxiliary power equipment operator has found that four percent of individuals without evidence of thyroid disease or autoimmunity will have positive TgAb levels up to 4 IU/mL. Performed at: [address] [id number] PhD Johanny Nieto Performed By: #### 2 400365, [id number], [id number], 4191599, [id number], [id number], [id number] #### [facility] [address] [place] [address] Thyroid Perox.tpo Abon 11-19 TPO Ab Qn [IU]/mL Invalid Interpretation Code 0-34 [facility] Comment on above: Result Comment: Perf ormed at: [address] [id number] PhD Johanny Nieto Performed By: #### 2 953145, [id number], [id number], 4178771, [id number], [id number], [id number] #### [facility] [address] [place] [address] BhG Quanton 11-19-2023 HCG.beta subunit Qn 86 m[IU]/mL High 1-3 Fish [facility] Comment on above: Result Comment: 'F N ON < 1 - 3' ' 0.2 - 1 WEEK = 5 TO 50' ' 1 - 2 WEEKS = 50 - 500' ' 2 - 3 WEEKS = 100 - 5000' ' 3 - 4 WEEKS = 500 - 52927' ' 4 - 5 WEEKS = 1000 - 43093' ' 5 - 6 WEEKS = 46874 - 852886' ' 6 - 8 WEEKS = 63040 - 106096' ' 8 - 12 WEEKS = 68729 - 432009' Performed By: #### 2 [id number] #### [facility] [address] [place] [address] CHEMISTRYOrdered By: SYSTEM SYSTEM on 11-19-2023 HCG.beta [...] 3 - 4 WEEKS = 500 - 55821' ' 4 - 5 WEEKS = 1000 - 29647' ' 5 - 6 WEEKS = 16499 - 163119' ' 6 - 8 WEEKS = 52832 - 046793' ' 8 - 12 WEEKS = 35931 - 944085' Iron [Mass/Vol] 161 ug/dL High 35 - 153 mcg/dL Remisol Chem Iron binding capacity [Mass/Vol] 316 ug/dL Normal 250 - 400 mcg/dL Remisol Chem Transferrin [Mass/Vol] 226 mg/dL Normal 200 - 370 mg/dL Remisol Chem TSH Qn 1.53 m[IU]/L Normal 0.34 - 5.60 mcIU/mL Remisol Chem Consent for Treatmenton 0 Consent for Treatment [id number] .00TIFF Normal [facility] Ironon 11-19-2023 Iron [Mass/Vol] 161 microgram/dL High 35-153 Fis [facility] Comment on above: Performed By: #### 2 801255, [id number], 94280673, 0429018, [id number], [id number], [id number] #### [facility] [address] [place] [address] Physician Orderon 11-19-2023 Physician Order [id number] .00TIFF Normal [facility] TIBC Calculatedon 11-19-2023 Iron binding capacity [Mass/Vol] 316 microgram/dL Normal 250-400 [facility] Comment on above: Performed By: #### 2 148837, 26469699, 99847383, 4599664, 940427990, 194812129, [id number] #### [facility] [address] [place] [address] Transferrin [Mass/Vol] 226 mg/dL Normal 200-370 [facility] Comment on above: Performed By: #### 2 378642, 04805798, 65828267, 9767651, 127649846, [id number], 11435798 #### [facility] [address] [place] [address] TSH With T4fr Reflexon 11-18 TSH Qn 1.53 m[IU]/L Normal 0.34-5.60 [facility] Comment on above: Performed By: #### 2 162729, 66383617, 54500884, 2947915, 051262315, 302333580, 48357843 #### [facility] [address] [place] [address] TSHon 07-12-2020 TSH 0.756 uIU/mL Normal 0.470-4.680 [facility] Comment on above: Performed By: #### T #### [facility] [address] [place], [place] [address] Jayne Noris TSH RANGE SEE BELOW Normal [facility] Comment on above: Result Comment: <0.3 4 UIU/ml HYPERTHYROID 0.34-5.60 UIU/ml EUTHYROID >5.60 UIU/ml HYPOTHYROID Performed By: #### T SH #### [facility] [address] [place] [address] Jayne Noris CBC AUTO DIFFon 06-25-2020 BASO # 0.1 103/ul Normal 0.0-0.1 [facility] Comment on above: Performed By: #### C BC #### [facility] [address] [place] [address] Jayne Noris Basophils/100 WBC (Bld) 1.2 % Normal 0.2-2.0 [facility] Comment on above: Performed By: #### C BC #### [facility] [address] [place] [address] Jayne Noris EO # 0.2 103/ul Normal 0.0-0.7 [facility] Comment on above: Performed By: #### C BC #### [facility] [address] [place], [place] [address] Jayne Noris Eosinophils/100 WBC (Bld) 2.6 % Normal 0.9-7.0 [facility] Comment on above: Performed By: #### C BC #### [facility] [address] [place] [address] Jayne Noris Erythrocyte distribution width (RBC) [Ratio] 12.0 % Normal 11.0-15.0 [facility] Comment on above: Performed By: #### C BC #### [facility] [address] [place] [address] Jayne Noris Hematocrit (Bld) [Volume fraction] 40.7 % Normal 36.0-48.0 [facility] Comment on above: Performed By: #### C BC #### [facility] [address] [place], [place] [address] Jayne Noris Hemoglobin (Bld) [Mass/Vol] 13.6 g/dL Normal 12.0-16.0 [facility] Comment on above: Performed By: #### C BC #### [facility] [address] [place] [address] Jayne Noris IG # 0.01 10e3/ul Normal 0.00-0.03 [facility] Comment on above: Performed By: #### C BC #### [facility] [address] [place] [address] Jayne Noris IG % 0.2 % Normal 0.0-0.5 [facility] Comment on above: Performed By: #### C BC #### [facility] [address] [place] [address] Jayne Noris LYMPH # 1.9 103/ul Normal 1.2-3.8 [facility] Comment on above: Performed By: #### C BC #### [facility] [address] [place] [address] Jayne Noris Lymphocytes/100 WBC (Bld) 32.5 % Normal 20.5-60.0 [facility] Comment on above: Performed By: #### C BC #### [facility] [address] [place] [address] Jayne Noris MANUAL DIFF REQ NO Normal [facility] Comment on above: Performed By: #### C BC #### [facility] [address] [place] [address] Jayne Noris MCH (RBC) [Entitic mass] 31.3 pg Normal 26.7-34.0 [facility] Comment on above: Performed By: #### C BC #### [facility] [address] [place] [address] Jayne Noris MCHC (RBC) [Mass/Vol] 33.4 g/dL Normal 29.9-35.2 [facility] Comment on above: Performed By: #### C BC #### [facility] [address] [place] [address] Jayne Noris MCV (RBC) [Entitic vol] 93.6 fL Normal 81.0-99.0 [facility] Comment on above: Performed By: #### C BC #### [facility] [address] [place] [address] Jayne Hamm MONO # 0.6 103/ul Normal 0.3-0.8 [facility] Comment on above: Performed By: #### C BC #### [facility] [address] [place] [address] Jayne Hamm Monocytes/100 WBC (Bld) 10.4 % Normal 1.7-12.0 [facility] Comment on above: Performed By: #### C BC #### [facility] [address] [place] [address] Jaynejeremías Cruzen NEUT # 3.1 103/ul Normal 1.4-6.5 [facility] Comment on above: Performed By: #### C BC #### [facility] [address] [place] [address] Jayne Hamm Neutrophils/100 WBC (Bld) 53.1 % Normal 43.0-75.0 [facility] Comment on above: Performed By: #### C BC #### [facility] [address] [place] [address] Jayne Hamm Platelet mean volume (Bld) [Entitic vol] 8.9 fL Critically low 9.5-13.5 [facility] Comment on above: Performed By: #### C BC #### [facility] [address] [place] [address] Jaynejeremías Cruzen PLT 265 103/ul Normal 150-450 [facility] Comment on above: Performed By: #### C BC #### [facility] [address] [place] [address] Jaynejeremías Cruzen RBC 4.35 106/ul Normal 4.20-5.40 [facility] Comment on above: Performed By: #### C BC #### [facility] [address] [place], [place] [address] Jayne Noris WBC 5.8 103/ul Normal 4.0-11.0 [facility] Comment on above: Performed By: #### C BC #### [facility] [address] [place] [address] Jaynejeremías Cruzen PREG QUANT HCGon 06-25-2020 HCG QUANT 1.00 mIU/mL Normal [facility] Comment on above: Performed By: #### P REGQNT #### [facility] [address] [place] [id number] Jayne Hamm HCG RANGE SEE BELOW [facility] Comment on above: Result Comment: 5-50 0-1 WEEK 40-300 1-2 WEEKS 100-1,000 2-3 WEEKS 500-6,000 3-4 WEEKS 5,000-200,000 1-2 MONTHS 10,000-100,000 2-3 MONTHS 3,000-50,000 2ND TRIMESTER 1,000-50,000 3RD TRIMESTER Performed By: #### P REGQNT #### [facility] [address] [place] [id number] Jayne Hamm PAP ACOG PANEL 2: 22 to 29on 05-06-2020 . . Normal [facility] Comment on above: Performed By: #### 4 [id number] #### [facility] [address] [place] [id number] Jayne Hamm Age Gdln ACOG Testing - [facility] Comment on above: Performed By: #### 4 [id number] #### [facility] [address] [place] [id number] Jayne Hamm DIAGNOSIS: Comment Normal [facility] Comment on above: Result Comment: NEGA TIVE FOR INTRAEPITHELIAL LESION OR MALIGNANCY. Performed By: #### 4 [id number] #### [facility] [address] [place] [id number] Jayne Hamm Methodology: Comment Normal [facility] Comment on above: Result Comment: This liquid based SurePath(R) pap test was screened with the assistance of an image guided system. Performed By: #### 4 [id number] #### [facility] [address] [place] [id number] Jayne Hamm Note: Comment Normal [facility] [...] do occur. . Performed By: #### 4 [id number] #### [facility] [address] [place] [address] Jayne Hamm Performed by: Comment Normal [facility] Comment on above: Result Comment: Suman Rdz, Warehouse Shipping Clerk (ASCP) Performed By: #### 4 [id number] #### [facility] [address] [place] [address] Jayne Hamm Reflex Criteria: Comment Normal [facility] Comment on above: Result Comment: The HPV DNA reflex criteria were not met with this specimen result therefore, no HPV testing was performed. . Performed By: #### 4 [id number] #### [facility] [address] [place] [address] Jayne Noris Specimen adequacy: Comment Normal [facility] [place] [facility] Comment on above: Result Comment: Sati sfactory for evaluation. Endocervical and/or squamous metaplastic cells (endocervical component) are present. Performed By: #### 4 [id number] #### [facility] [address] [place] [address] Jayne Hamm US PELVIS AND TRANSVAGon US [...] mm[Hg] Hill Jacobsen Work Phone: [facility] 12-10-2023 09:18-0400 Heart rate 101 /min Hill Jacobsen Work Phone: [facility] 12-10-2023 09:18-0400 Respiratory rate 12 /min Hill Jacobsen Work Phone: [facility] 12-10-2023 09:18-0400 Systolic blood pressure 132 mm[Hg] Hill Jacobsen Work Phone: [facility] 11-02-2023 14:27-0400 Body height 180.3 cm Earle [...] Body height 180.34 cm Lucila Arnett Other [facility] 09-14-2023 11:30-0500 Body mass index (BMI) [Ratio] 20.92 kg/m2 Lucila Arnett Other [facility] [employer] [employer] Other 09-14-2023 11:30-0500 Body weight 68.04 kg Lucila Arnett Other [facility] Other 09-14-2023 11:30-0500 Body weight 68.03 kg [facility] 09-14-2023 11:30-0500 Diastolic blood pressure 68 mm[Hg] Lucila Melquiades Other [facility] 09-14-2023 11:30-0500 Respiratory rate 16 /min Lucila Vidyar Other [facility] Other 09-14-2023 11:30-0500 SaO2% (BldA) [Mass fraction] 100 % Lucila Steveacher Other [facility] Other 09-14-2023 11:30-0500 Systolic blood pressure 110 mm[Hg] Lucila Steveacher Other [facility] 08-03-2023 10:00-0500 Body height 180.34 cm Lucila Arnett Other [facility] Other 08-03-2023 10:00-0500 Body mass index (BMI) [Ratio] 20.78 kg/m2 Lucila Vidyar Other [facility] Other 08-03-2023 10:00-0500 Body weight 67.59 kg Lucila Dasilvar Other [facility] Other 08-03-2023 10:00-0500 Diastolic blood pressure 66 mm[Hg] Lucila Wilsonacher Other [facility] Other 08-03-2023 10:00-0500 SaO2% (BldA) [Mass fraction] 98 % Lucila Arnett Other [facility] Other 08-03-2023 10:00-0500 Systolic blood pressure 100 mm[Hg] Lucila Sanabriaelíasleanne Other [facility] [employer] Other Encounters Encounter Date Encounter Type Care Provider Facility Start: 05-19-2024 End: 05-19-2024 ambulatory WON TREVON Not Available Start: 05-08-2024 End: 05-08-2024 ambulatory WON TREVON Not Available Start: 04-24-2024 End: 04-24-2024 ambulatory WON TREVON Not Available Start: 04-10-2024 End: 04-10-2024 ambulatory WON TREVON Not Available Start: 03-31-2024 End: 03-31-2024 ambulatory WON R [facility] Start: 03-27-2024 End: 03-27-2024 ambulatory WON TREVON Not Available Start: 03-25-2024 End: 03-25-2024 ambulatory WON R [facility] Start: 03-13-2024 End: 03-13-2024 ambulatory PEDRO TABOR Not Available Start: 02-28-2024 End: 02-28-2024 ambulatory WON TREVON Not Available Start: 02-25-2024 End: 02-25-2024 ambulatory WON [facility] Start: 02-13-2024 End: 02-13-2024 ambulatory WON TREVON Not Available Start: 01-30-2024 End: 01-30-2024 ambulatory WON TREVON Not Available Start: 01-21-2024 End: 01-21-2024 ambulatory WON R [facility] Start: 01-17-2024 End: 01-17-2024 ambulatory WON TREVON Not Available Start: 01-03-2024 End: 01-03-2024 ambulatory WON TREVON Not Available Start: 12-26-2023 End: 12-26-2023 ambulatory WON TREVON Not Available Start: 12-13-2023 End: 12-13-2023 ambulatory WON TREVON Not Available Start: 12-10-2023 End: 12-11-2023 ambulatory HAKEEM YODER [facility] Start: 12-10-2023 End: 12-10-2023 Encounter identifier Hill Sánchez Ann-Marie Work Phone: [facility] [place] Start: 12-06-2023 End: 12-07-2023 ambulatory HAKEEM YODER [facility] Start: 12-03-2023 End: 12-04-2023 ambulatory HAKEEM YODER [facility] Start: 11-29-2023 End: 11-30-2023 amb[facility] Start: 11-26-2023 End: 11-27-2023 ambulatory HAKEEM YODER [facility] Start: 11-23-2023 End: 11-24-2023 ambulatory HAKEEM YODER [facility] Start: 11-21-2023 End: 11-22-2023 ambulatory HAKEEM YODER [facility] Start: 11-19-2023 End: 11-20-2023 ambulatory PIECE MEAT TRIMMER LUCILA ARNETT Facility:[facility] Start: 11-19-2023 End: 11-19-2023 Patient encounter procedure LUCILA ARNETT [facility] [place] [facility] Start: 11-14-2023 End: 11-14-2023 ambulatory [facility] Work Phone: Start: 11-14-2023 End: 11-14-2023 Patient encounter procedure [facility] Work Phone: Start: 11-02-2023 ambulatory EARLE CHEN Facility:[facility] Start: 11-02-2023 End: 11-02-2023 Office outpatient new 60 minutes Earle Chen MD Work Phone: [facility] [place] Comment on above: Endometriosis (Prima ry Dx); Pelvic pain; Myalgia of pelvic floor; Dysmenorrhea; Dyspareunia in female; Nausea and vomiting, unspecified vomiting type; Bladder pain; Anxiety Start: 10-17-2023 End: 10-17-2023 Patient encounter procedure [facility] Work Phone: Start: 09-14-2023 End: 09-14-2023 ambulatory Lucila Arnett Other [facility] Other Start: 09-14-2023 Office outpatient vi sit 25 minutes Lucila Arnett [facility] Start: 09-14-2023 End: 09-14-2023 Patient encounter procedure [facility] Start: 08-09-2023 End: 08-09-2023 ambulatory Lucila Arnett Other [facility] Other Start: 08-09-2023 Telephone encounter Lucila Dan her [facility] Start: 08-03-2023 End: 08-03-2023 ambulatory Lucila Arnett Other [facility] Other Start: 08-03-2023 Office outpatient ne w 30 minutes Lucila Arnett [facility] Start: 08-03-2023 Telephone encounter Lucila Dan her [employer] Super[employer] Start: 07-12-2020 End: 07-13-[address] WON [...] , Expires: 11/01/2024 Start: 10-17-2023 Patient referral [facility] Work Phone: Start: 04-20-2023 COVID-19 VACCINE [...] vaccination TETANUS [facility] Patient referral [facility] Work Phone: Payers Date Payer Category Payer Medicaid [id number] 2023 [employer] others) [id number] 2023 [employer] ( and others) [facility] [id number] 2023-Present [address] [place] [address] [id number] 2023 [employer] ( and others) [id number] 1996 Unknown [id number] 2.16.840.1.576767.3.579.2.5 93 1996 Unknown [id number] 2.16.840.1.937318.3.579.2.5 93 1996 Unknown [id number] 2.16.840.1.002939.3.579.2.5 93 1996 Unknown [id number] 2.16.840.1.699586.3.579.2.5 93 1996 Unknown [id number] 2.16.840.1.837083.3.579.2.5 93 1996 Unknown [id number] 2.16.840.1.435736.3.579.2.5 94 1996 Unknown [id number] 2.16.840.1.362127.3.579.2.7 27 1996 Unknown [id number] 2.16.840.1.819399.3.579.2.1 143 1996 Unknown [id number] 2.16.840.1.477158.3.579.2.1 [facility] 1996 Unknown [id number] 2.16.840.1.018008.3.579.2.1 143 1996 Unknown [id number] 2.16.840.1.160913.3.579.2.1 [facility] 1996 Unknown [id number] 2.16.840.1.180284.3.579.2.1 143 1996 Unknown [id number] 2.16.840.1.458446.3.579.2.1 [facility] 1996 Unknown [id number] 2.16.840.1.219562.3.579.2.1 143 1996 Unknown [id number] 2.16.840.1.300546.3.579.2.1 [facility] 1996 Unknown [id number] 2.16.840.1.318660.3.579.2.1 286 1996 Unknown [id number] 2.16.840.1.482323.3.579.2.1 286 1996 Unknown [id number] 2.16.840.1.994089.3.579.2.1 286 1996 Unknown [id number] 2.16.840.1.400417.3.579.2.1 286 1996 Unknown [id number] 2.16.840.1.832302.3.579.2.1 286 1996 Unknown [id number] 2.16.840.1.112225.3.579.2.1 259 1996 Unknown [id number] 2.16.840.1.635899.3.579.2.1 259 1996 Unknown [id number] 2.16.840.1.911672.3.579.2.1 259 1996 Unknown [id number] 2.16.840.1.310006.3.579.2.1 259 1996 Unknown [id number] 2.16.840.1.810826.3.579.2.1 259 1996 Unknown [id number] 2.16.840.1.912888.3.579.2.1 259 1996 Unknown [id number] 2.16.840.1.384176.3.579.2.1 259 1996 Unknown [id number] 2.16.840.1.134810.3.579.2.1 259 1996 Unknown [id number] 2.16.840.1.816694.3.579.2.1 259 1996 Unknown [id number] 2.16.840.1.774306.3.579.2.1 259 1996 Unknown [id number] 2.16.840.1.158976.3.579.2.1 259 1996 Unknown [id number] 2.16.840.1.291725.3.579.2.1 259 1996 Unknown [id number] 2.16.840.1.463232.3.579.2.1 259 1959 [employer] ( [employer] others) [id number] 1959 [employer] ( and others) [id number] [employer] ( and others) [id number] 2.16.840.1.182375.19 Social History Date Type Detail Facility Start: 11-02-2023 Sex Assigned At [facility] Start: 09-30-2017 End: 11-02-2023 Tobacco smoking status NHIS Never smoked tobacco [facility] Start: 11-02-2023 Tobacco use and exposure Smokeless tobacco non-user [facility] Start: 11-02-2023 Alcoholic beverage intake Lifetime non-drinker (finding) [facility] Start: 11-02-2023 History of Social function [facility] Start: 1996 Sex assigned at Not on file [facility] Start: 1996 Sex Assigned At Female [facility] Start: 12-10-2023 Tobacco smoking status NHIS Unknown if ever smoked [facility] Start: 12-10-2023 Alcohol intake Alcohol Use Details [facility] Start: 09-04-2023 Sexual Orientation Lesbian, lynch or homosexual [facility] Clinical Notes 06-25-2020 to 11-19-2023 Earle Chen MD - 11/02/2023 2:30 PM EDT Note Date & Type Note Facility 11-19-2023 Evaluation + Plan note Diagnostic Tests PendingT3 Free 11/19/23Thyroid Perox.tpo Ab 11/19/23TgAb+Thyroglobulin,CHING or ARLEN 11/19/23 [facility] 11-02-2023 History of Present illness Narrative GYNECOLOGY CONSULT NOTE REASON FOR VISIT Endometriosis Pelvic pain HISTORY OF PRESENT ILLNESS Ms. Medrano is a 27 y.o. (NSVDx2) who presents for consultation regarding endometriosis, pelvic pain. Records review: Moved back from [place] to [place] (2021) First diagnosed in 2018 Has had [...] tried to get her medical records in [place], but they would not send them. She [...] She had a women's health doctor in [facility] who told her she had stage IV endometriosis. She is no longer on the progesterone. Has tried vaginal valium does not help Her 2 previous pregnancies were with a previous partner. She and her are trying for another now. No BA in [place] Partner has not had a SA yet [...] patient today. documented in this encounter [facility] 09-14-2023 Evaluation note Encounter Date Diagnosis [...] educated on the risks and benefits of detention use. Risk assessment was done. Patient is [...] Pt to call with any worsening symptoms. [facility] Other 12-21-2023 Evaluation note* Encounter Date Diagnosis Assessment Notes Treatment Notes Treatment Clinical Notes Jul, Generalized anxiety disorder (ICD-10 - F41.1) Jul, Endometriosis (ICD-1 0 - N80.9) [facility] Other 12-15-2023 Evaluation note* Encounter Date Diagnosis [...] educated on the risks and benefits of detention use. Risk assessment was done as well [...] intractable, unspecified migraine type (ICD-10 - G43.909) [facility] Other 11-06-2020 NoteOPERATIVE NOTE OPERATION DATE: 06-25-20 ANESTHETIC:General. WEALTH MANAGEMENT MANAGER:None. PREOPERATIVE DIAGNOSIS: 1. Dyspareunia. 2. Right and [...] lap, and needle counts were correct x2. [facility] Signed and Approved by: DR WON LESTER . 07/30/2020 13:02:00[facility] note* Clinical Note Date No Information [facility] Work Phone: Discharge summary* Clinical Note Date No Information [facility]: [facility] [employer] [employer] Other Evaluation note* Diagnosis Endometriosis- Primary Endometriosis, site unspecified Pelvic pain Unspecified symptom associated with female genital organs Myalgia of pelvic floor Dysmenorrhea Dyspareunia in female Nausea and vomiting, unspecified vomiting type Bladder pain Other symptoms involving urinary system Anxiety Anxiety state, unspecified [facility] Onset Date Resolution Status Depression acute Generalized anxiety disorder acute Obsessive compulsive disorder acute PTSD (post-traumatic stress disorder) acute Depression acute Endometriosis acute Generalized anxiety disorder acute Obsessive compulsive disorder acute PTSD (post-traumatic stress disorder) acute TBI (traumatic brain injury) acute [facility] Work Phone: Evaluation note* Type Assessment Date No Information [facility] Work Phone: History and physical note* Clinical Note Date No Information [facility] Work Phone: History general Narrative - Reported* Type Description Date Medical History Anxiety Medical History Stage 4 Endometriosis Medical History Depression with manic episodes Medical History OCD Medical History PTSD Medical History TBI Surgical History Endometriosis surgery x2 Surgical History Palms teeth Surgical History Injections in cervix [facility] [employer] Other History of Present illness Narrative* Encounter Date Complaint History Of Prese nt Illness No Information [facility] Work Phone: Hospital course Narrative No data available for this section [facility] No data available for this section [facility] Date Instruction Additional Infor mation No Information [facility] Work Phone: Progress note No data available for this section [facility] Clinical Note Date No Information [facility] Work Phone: Reason for referral (narrative)* Consultation (Routine) - New Request Specialty Diagnoses / Procedures Referred By Contac t Referred To Contact Psychology Diagnoses Pelvic pain Anxiety Earle Chen MD [address] [place] [address] Oksana Luu, PhD [address] [place] [address] Referral ID Status Reason Start Date Expiration Date V isits Requested Visits Authorized [id number] New Request 11/02/2023 11/26/2024 1 1 * Consultation (Routine) - New Request Specialty Diagnoses / Procedures Referred By Contac t Referred To Contact Integrative Medicine Diagnoses Pelvic pain Nausea and vomiting, unspecified vomiting type Earle Chen MD [address] [place] [address] Referral ID Status Reason Start Date Expiration Date V isits Requested Visits Authorized [id number] New Request 11/02/2023 11/26/2024 1 1 * Consultation (Routine) - New Request Specialty Diagnoses / Procedures Referred By Contac t Referred To Contact Gynecology Diagnoses Pelvic pain Myalgia of pelvic floor Bladder pain Earle Chen MD [address] [place] [address] Referral ID Status Reason Start Date Expiration Date V isits Requested Visits Authorized [id number] New Request 11/02/2023 11/26/2024 1 1 * MRI/CAT Scan (Routine) - New Request Specialty Diagnoses / Procedures Referred By Contac t Referred To Contact Diagnoses Endometriosis Pelvic pain Procedures MRI PELVIS WITH AND WITHOUT CONTRAST LA MRI, PELVIS, COMBO Earle Chen MD [address] [place] [address] Referral ID Status Reason Start Date Expiration Date V isits Requested Visits Authorized [id number] New Request 11/02/2023 11/26/2024 1 1 [facility] Reason For Referral No Information [facility] Work Phone: Summary Purpose Family History No [...] for Referral Reason *FU 08/06 CALL taryn isabelle Diagnosis 1 Endometriosis (N80.9 ) Referral Organization [facility] [employer] Referring Provider First Name Lucila Referring Provider Last Name Steveacher Referring Provider Specialty Nurse Pract itioner Referred Organization [facility] Referred Provider Jena Suresh Referred Address ,[place], [place],[address] Referred Provider Specialty OB - Gynecol ogy Referral Priority Routine General Notes Lesley Bowman 01:18:58 PM >pt has west. we do not take this insurance. we take east. pt will need to update this with if she has relocated or only here for a short period of time. I called pt but her mail box is full. Reason *FU 08/06 CALL taryn isabelle Diagnosis 1 History of traumatic brain injury (Z87.820) Diagnosis 2 Migraine without sta tus migrainosus, not intractable, unspecified migraine type (G43.909) Referral Organization [facility] [employer] Referring Provider First Name Lucila Referring Provider Last Name Steveacher Referring Provider Specialty Nurse Pract itioner Referred Organization [facility] Referred Provider Herbie Arroyo Referred Address [address] [place], [place],[address] Referred Provider Specialty Neurology Referral Priority Routine [...] Diagnosis 1 Endometriosis (N80.9 ) Referral Organization [facility] [employer] [facility] Referring Provider First Name Lucila Referring Provider Last Name Melquiades Referring Provider Specialty Nurse Pracdain serrano Referred Organization [facility] Referred Address [address], [place],[address] Referred Provider Specialty Endocrinolog y Referral Priority [...] and content) DATE CREATED AUTHOR [facility] DATE CREATED AUTHOR AUTHOR'S ORGANIZ ATION 11/03/2023 [facility] DATE CREATED AUTHOR AUTHOR'S ORGANIZ ATION 11/20/2023 [facility] DATE CREATED AUTHOR AUTHOR'S ORGANIZ ATION 12/15/2023 [facility] DATE CREATED AUTHOR AUTHOR'S ORGANIZ ATION 04/01/2024 [facility] DATE CREATED AUTHOR AUTHOR'S ORGANIZ ATION 05/19/2024 [facility] Specialists EPIC REASON FOR VISIT (unrecogniz ed section and content) Reason Comments Consult Pt diagnosis with En dometriosis in 2018. Patient desire . Specialty Diagnoses / Procedures Referred By Harris t Referred To Contact CHIEF COMPLIANCE OFFICER Diagnoses Endometriosis Lucila Arnett, PIECE MEAT TRIMMER [address] [facility] [address] [facility] [address] [place] [address] Referral ID Status Reason Start Date Expiration Date V isits Requested Visits Authorized [id number] New Request 10/23/2023 11/16/2024 1 1 Care Teams (unrecognized sec tion and content) Team Status: Active Member Role Status Dates Lucila Arnett APRN BIRD CAGE ASSEMBLER-C Primary Care Provider Active Team Status: Inactive Member Role Status Dates Lucila Arnett APRN BIRD CAGE ASSEMBLER-C Attending Provider Act vinicius Start: September 14, 2023 End: September 14, 2023 Team Status: Inactive Member Role Status Dates Lucila Arnett APRN BIRD CAGE ASSEMBLER-C Primary Care Provider, Attending Provider Active Start: October 17, 2023 End: October 17, 2023 Team Status: Inactive Member Role Status Dates Lucila Arnett APRN BIRD CAGE ASSEMBLER-C Primary Care Provider, Attending Provider Active Start: [...] BE BASED ON THE PRIMARY CLINICAL RECORDS. [employer] provides no warranty or guarantee of the accuracy or completeness of information in this document.
[2024-05-30 11:04] VITALS: BP 117/77; PULSE 92
== END 2024-05-30 11:38 | disposition home or self-care (01) ==
LOC: US 07:15 → FBC 10:38
PROVIDERS: PCP Nurse Practitioner Family; Visit Provider Obstetrics & Gynecology
DX: O09.891 Supervision of other high risk pregnancies, first trimester (principal); O26.899 Other specified pregnancy related conditions, unspecified trimester; R10.9 Unspecified abdominal pain; R10.2 Pelvic and perineal pain; O09.293 Supervision of pregnancy with other poor reproductive or obstetric history, third trimester; Z3A.30 30 weeks gestation of pregnancy
CPT/HCPCS: 76818

== ENCOUNTER 2024-06-03 07:01 | Outpatient (OUT) | payer OTHER, SELFPAY ==
--- OUTSIDE RECORDS SUMMARY | 2024-06-03 07:04 | XMS_ITS | CCD ---
Author Organization [facility] Inform ion [facility] Care Team Providers Care Rn First Assistant Name Role Phone TREVON, DR UPTON Admitting Unavailable MISC, DR DAVENPORT Primary Care Unavailable NUPUR, DR DARLINE Fitzgerald Consulting Unavailable TREVON, DR UPTON Attending Unavailable TREVON, DR UPTON Consulting Unavailable TERVON, DR UPTON Consulting Unavailable TREVON, DR UPTON [...] (1 source) traMADol Drug Allergy 0 [facility] [place] [facility] Repository (6 sources) traMADol; Translations: [TRAMADOL] Drug Allergy 4 Unknown, Unknown Reaction [facility] (6 sources) Lavender Oil; Translations: [LAVENDER OIL] Drug allergy 4 Unknown [facility] Repository (1 source) lavender (Lavandula angustifolia) Allergy to substance 4 Unknown Reaction [facility] (1 source) GALCANEZUMAB-GN ; Translations: [GALCANEZUMAB-G [facility]] Propensity to adverse reactions to [...] oral solution (1 source) alpha-Adrenergic Agonist, Uncompetitive X-xhokru-I-aspartate Receptor Antagonist, Sigma-1 Agonist Start: 09-30-2017 take [...] q6hr, # 10 tab(s), Refills(s) 0, Pharmacy: [facility] 1984 Start Date: 09/21/18 Status: [...] Facility HCG.beta subunit Qnon 2023 hCG Quant [id number] mIU/mL Normal [facility] Comment on above: Order Comment: Pregn phill [...] method. Performed By: #### 2 1198-7 #### [facility] [address] [place] [address] HCG.beta subunit Qnon 2023 hCG Quant 14507 mIU/mL Normal [facility] Comment on above: Order [...] method. Performed By: #### 2 1198-7 #### [facility] [address] [place] [address] HCG.beta subunit Qnon 2023 hCG Quant 63431 mIU/mL Normal [facility] Comment on above: Order [...] method. Performed By: #### 2 1198-7 #### [facility] [address] [place] [address] HCG.beta subunit Qnon 2023 hCG Quant 10700 mIU/mL Normal [facility] Comment on above: Order [...] method. Performed By: #### 2 1198-7 #### [facility] [address] [place] [address] HCG.beta subunit Qnon 2023 hCG Quant 2709 mIU/mL Normal [facility] Comment on above: Order [...] method. Performed By: #### 2 1198-7 #### [facility] [address] [place] [address] HCG.beta subunit Qnon 2023 hCG Quant 776 mIU/mL Normal [facility] Comment on above: Order [...] method. Performed By: #### 2 1198-7 #### [facility] [address] [place] [address] HCG.beta subunit Qnon 2023 hCG Quant 250 mIU/mL Normal [facility] Comment on above: Order [...] method. Performed By: #### 2 1198-7 #### [facility] [address] [place] [address] .Thyroglobulin by IMAon Thyroglobulin [Mass/Vol] 5.0 ng/mL Invalid Interpretation Code 1.5-38.5 [facility] Comment on above: Result Comment: Acco [...] by John Vish Immunometric Assay Performed at: [facility] [id number] PhD Johanny Nieto Performed By: #### 2 863648, [id number], [id number], [id number], [id number], [id number], [id number] #### [facility] [address] [place] [address] T3 Freeon 11-20-2023 Free T3 [Mass/Vol] 3.2 pg/mL Invalid Interpretation Code 2.0-4.4 [facility] Comment on above: Result Comment: Perf ormed at: [address] [id number] PhD Johanny Nieto Performed By: #### 2 [id number], [id number], [id number], [id number], [id number], [id number], [id number] #### [facility] [address] [place] [address] TgAb+Thyroglobulinon 024 Thyroglobulin Ab Qn [IU]/mL Invalid Interpretation Code 0.0-0.9 [facility] Comment on above: Result Comment: Thyr oglobulin Antibody measured by [employer] Methodology It should be noted that the presence of thyroglobulin antibodies may not be pathogenic nor diagnostic, especially at very low levels. The assay teacher adult education has found that four percent of individuals without evidence of thyroid disease or autoimmunity will have positive TgAb levels up to 4 IU/mL. Performed at: [address] [id number] PhD Johanny Nieto Performed By: #### 2 373546, [id number], [id number], 3307092, [id number], [id number], [id number] #### [facility] [address] [place] [address] Thyroid Perox.tpo Abon 11-19 TPO Ab Qn [IU]/mL Invalid Interpretation Code 0-34 [facility] Comment on above: Result Comment: Perf ormed at: [address] [id number] PhD Johanny Nieto Performed By: #### 2 644436, [id number], 42654480, 9632714, 785227785, [id number], [id number] #### [facility] [address] [place] [address] BhG Quanton 11-19-2023 HCG.beta subunit Qn 86 m[IU]/mL High 1-3 Fish er [facility] Comment on above: Result Comment: 'F N ON < 1 - 3' ' 0.2 - 1 WEEK = 5 TO 50' ' 1 - 2 WEEKS = 50 - 500' ' 2 - 3 WEEKS = 100 - 5000' ' 3 - 4 WEEKS = 500 - 71704' ' 4 - 5 WEEKS = 1000 - 36929' ' 5 - 6 WEEKS = 29526 - 683228' ' 6 - 8 WEEKS = 66370 - 913460' ' 8 - 12 WEEKS = 84217 - 966101' Performed By: #### 2 [id number] #### [facility]ee [facility] [address] [place] [address] CHEMISTRYOrdered By: SYSTEM SYSTEM on 11-19-2023 HCG.beta [...] 3 - 4 WEEKS = 500 - 50530' ' 4 - 5 WEEKS = 1000 - 56375' ' 5 - 6 WEEKS = 22314 - 532999' ' 6 - 8 WEEKS = 19499 - 975310' ' 8 - 12 WEEKS = 96155 - 318760' Iron [Mass/Vol] 161 ug/dL High 35 - 153 mcg/dL Remisol Chem Iron binding capacity [Mass/Vol] 316 ug/dL Normal 250 - 400 mcg/dL Remisol Chem Transferrin [Mass/Vol] 226 mg/dL Normal 200 - 370 mg/dL Remisol Chem TSH Qn 1.53 m[IU]/L Normal 0.34 - 5.60 mcIU/mL Remisol Chem Consent for Treatmenton 0 Consent for Treatment [id number] .[id number] Normal [facility] Ironon 11-19-2023 Iron [Mass/Vol] 161 microgram/dL High 35-153 Fis [facility] Comment on above: Performed By: #### 2 434549, [id number], 36498851, 1658950, [id number], [id number], [id number] #### [facility] [address] [place] [address] Physician Orderon 11-19-2023 Physician Order [id number] .00TIFF Normal [facility] TIBC Calculatedon 11-19-2023 Iron binding capacity [Mass/Vol] 316 microgram/dL Normal 250-400 [facility] Comment on above: Performed By: #### 2 766824, 29222498, 72391262, 3980833, 150470560, [id number], 88525128 #### [facility] [address] [place] [address] Transferrin [Mass/Vol] 226 mg/dL Normal 200-370 [facility] Comment on above: Performed By: #### 2 240856, 24773945, 20554722, 5257229, 387733569, [id number], [id number] #### [facility] [address] [place] [address] TSH With T4fr Reflexon 11-18 TSH Qn 1.53 m[IU]/L Normal 0.34-5.60 [facility] Comment on above: Performed By: #### 2 954798, 91336464, 96604468, 2189391, 770986270, 398845807, [id number] #### [facility] [address] [place] [address] TSHon 07-12-2020 TSH 0.756 uIU/mL Normal 0.470-4.680 [facility] Comment on above: Performed By: #### T #### [facility] [place] [facility] [address] [place], [place] [address] Jayne Noris TSH RANGE SEE BELOW Normal [facility] [place] [facility] Comment on above: Result Comment: <0.3 4 UIU/ml HYPERTHYROID 0.34-5.60 UIU/ml EUTHYROID >5.60 UIU/ml HYPOTHYROID Performed By: #### T SH #### [facility] [place] [facility] [address] [place] [address] Jayne Noris CBC AUTO DIFFon 06-25-2020 BASO # 0.1 103/ul Normal 0.0-0.1 [facility] Comment on above: Performed By: #### C BC #### [facility] [place] [facility] [address] [place] [address] Jayne Noris Basophils/100 WBC (Bld) 1.2 % Normal 0.2-2.0 [facility] Comment on above: Performed By: #### C BC #### [facility] [place] [facility] [address] [place] [address] Jayne Noris EO # 0.2 103/ul Normal 0.0-0.7 [facility] Comment on above: Performed By: #### C BC #### [facility] [place] [facility] [address] [place], [place] [address] Jayne Noris Eosinophils/100 WBC (Bld) 2.6 % Normal 0.9-7.0 [facility] Comment on above: Performed By: #### C BC #### [facility] [place] [facility] [address] [place] [address] Jayne Noris Erythrocyte distribution width (RBC) [Ratio] 12.0 % Normal 11.0-15.0 [facility] [place] [facility] Comment on above: Performed By: #### C BC #### [facility] [place] [facility] [address] [place] [address] Jayne Noris Hematocrit (Bld) [Volume fraction] 40.7 % Normal 36.0-48.0 [facility] [place] [facility] Comment on above: Performed By: #### C BC #### [facility] [place] [facility] [address] [place], [place] [address] Jayne Noris Hemoglobin (Bld) [Mass/Vol] 13.6 g/dL Normal 12.0-16.0 [facility] [place] [facility] Comment on above: Performed By: #### C BC #### [facility] [place] [facility] [address] [place] [address] Jayne Noris IG # 0.01 10e3/ul Normal 0.00-0.03 [facility] Comment on above: Performed By: #### C BC #### [facility] [place] [facility] [address] [place] [address] Jayne Noris IG % 0.2 % Normal 0.0-0.5 [facility] Comment on above: Performed By: #### C BC #### [facility] [place] [facility] [address] [place] [address] Jayne Noris LYMPH # 1.9 103/ul Normal 1.2-3.8 [facility] [place] [facility] Comment on above: Performed By: #### C BC #### [facility] [place] [facility] [address] [place] [address] Jayne Noris Lymphocytes/100 WBC (Bld) 32.5 % Normal 20.5-60.0 [facility] Comment on above: Performed By: #### C BC #### [facility] [place] [facility] [address] [place] [address] Jayne Noris MANUAL DIFF REQ NO Normal [facility] Comment on above: Performed By: #### C BC #### [facility] [place] [facility] [address] [place] [address] Jayne Noris MCH (RBC) [Entitic mass] 31.3 pg Normal 26.7-34.0 [facility] Comment on above: Performed By: #### C BC #### [facility] [place] [facility] [address] [place] [address] Jayne Noris MCHC (RBC) [Mass/Vol] 33.4 g/dL Normal 29.9-35.2 [facility] [place] [facility] Comment on above: Performed By: #### C BC #### [facility] [place] [facility] [address] [place] [address] Jayne Noris MCV (RBC) [Entitic vol] 93.6 fL Normal 81.0-99.0 [facility] Comment on above: Performed By: #### C BC #### [facility] [place] [facility] [address] [place] [address] Jayne Hamm MONO # 0.6 103/ul Normal 0.3-0.8 [facility] Comment on above: Performed By: #### C BC #### [facility] [place] [facility] [address] [place] [address] Jayne Hamm Monocytes/100 WBC (Bld) 10.4 % Normal 1.7-12.0 [facility] Comment on above: Performed By: #### C BC #### [facility] [place] [facility] [address] [place] [address] Jaynejeremías Cruzen NEUT # 3.1 103/ul Normal 1.4-6.5 [facility] [place] [facility] Comment on above: Performed By: #### C BC #### [facility] [place] [facility] [address] [place] [address] Jayne Hamm Neutrophils/100 WBC (Bld) 53.1 % Normal 43.0-75.0 [facility] Comment on above: Performed By: #### C BC #### [facility] [place] [facility] [address] [place] [address] Jayne Hamm Platelet mean volume (Bld) [Entitic vol] 8.9 fL Critically low 9.5-13.5 [facility] Comment on above: Performed By: #### C BC #### [facility] [place] [facility] [address] [place] [address] Jaynejeremías Cruzen PLT 265 103/ul Normal 150-450 [facility] [place] [facility] Comment on above: Performed By: #### C BC #### [facility] [place] [facility] [address] [place] [address] Jaynejeremías Cruzen RBC 4.35 106/ul Normal 4.20-5.40 [facility] [place] [facility] Comment on above: Performed By: #### C BC #### [facility] [place] [facility] [address] [place], [place] [address] Jayne Noris WBC 5.8 103/ul Normal 4.0-11.0 [facility] [place] [facility] Comment on above: Performed By: #### C BC #### [facility] [place] [facility] [address] [place] [address] Jaynejeremaís Cruzen PREG QUANT HCGon 06-25-2020 HCG QUANT 1.00 mIU/mL Normal [facility] [place] [facility] Comment on above: Performed By: #### P REGQNT #### [facility] [place] [facility] [address] [id number] Jayne Hamm HCG RANGE SEE BELOW [facility] Comment on above: Result Comment: 5-50 0-1 WEEK 40-300 1-2 WEEKS 100-1,000 2-3 WEEKS 500-6,000 3-4 WEEKS 5,000-200,000 1-2 MONTHS 10,000-100,000 2-3 MONTHS 3,000-50,000 2ND TRIMESTER 1,000-50,000 3RD TRIMESTER Performed By: #### P REGQNT #### [facility] [place] [facility] [address] [id number] Jayne Hamm PAP ACOG PANEL 2: 21 to 29on 05-06-2020 . . Normal [facility] Comment on above: Performed By: #### 4 [id number] #### [facility] [place] [facility] [address] [id number] Jayne Hamm Age Gdln ACOG Testing - [facility] Comment on above: Performed By: #### 4 [id number] #### [facility] [place] [facility] [address] [id number] Jayne Hamm DIAGNOSIS: Comment Normal [facility] Comment on above: Result Comment: NEGA TIVE FOR INTRAEPITHELIAL LESION OR MALIGNANCY. Performed By: #### 4 [id number] #### [facility] [place] [facility] [address] [id number] Jayne Hamm Methodology: Comment Normal [facility] Comment on above: Result Comment: This liquid based SurePath(R) pap test was screened with the assistance of an image guided system. Performed By: #### 4 [id number] #### [facility] [place] [facility] [address] [id number] Jayne Hamm Note: Comment Normal [facility] Comment on above: Result Comment: The Pap smear is a screening test designed to aid in the detection of premalignant and malignant conditions of the uterine cervix. It is not a diagnostic procedure and should not be used as the sole means of detecting cervical cancer. Both false-positive and false-negative reports do occur. . Performed By: #### 4 [id number] #### [facility] [place] [facility] [address] [place] [address] Jayne Hamm Performed by: Comment Normal [facility] Comment on above: Result Comment: Suman Rdz, Extruding Machine Operator (ASCP) Performed By: #### 4 [id number] #### [facility] [place] [facility] [address] [place] [address] Jayne Hamm Reflex Criteria: Comment Normal [facility] Comment on above: Result Comment: The HPV DNA reflex criteria were not met with this specimen result therefore, no HPV testing was performed. . Performed By: #### 4 [id number] #### [facility] [place] [facility] [address] [place] [address] Jayne Noris Specimen adequacy: Comment Normal [facility] Comment on above: Result Comment: Sati sfactory for evaluation. Endocervical and/or squamous metaplastic cells (endocervical component) are present. Performed By: #### 4 [id number] #### [facility] [place] [facility] [address] [place] [address] Jayne Hamm US PELVIS AND TRANSVAGon US [...] by: DARLINE ESPITIA Date: 2020-04-30 14:54 Normal [facility] Vital Signs Date Time Vital Sign Value Performing Clinician Facility 12-10-2023 09:18-0400 Diastolic blood pressure 84 mm[Hg] Hill Jacobsen Work Phone: [facility] 12-10-2023 09:18-0400 Heart rate 101 /min Hill Jacobsen Work Phone: [facility] 12-10-2023 09:18-0400 Respiratory rate 12 /min Hill Jacobsen Work Phone: [facility] 12-10-2023 09:18-0400 Systolic blood pressure 132 mm[Hg] Hill Jacobsen Work Phone: [facility] 11-02-2023 14:27-0400 Body height 180.3 cm Earle Chen MD Work Phone: [facility] 11-02-2023 14:27-0400 Body mass index (BMI) [Ratio] 20.04 kg/m2 Earle Chen MD Work Phone: [facility] 11-02-2023 14:27-0400 Body weight 65.18 kg Earle Chen MD Work Phone: [facility] 11-02-2023 14:27-0400 Diastolic blood pressure 80 mm[Hg] Earle Chen MD Work Phone: [facility] 11-02-2023 14:27-0400 Systolic blood pressure 110 mm[Hg] Earle Chen MD Work Phone: [facility] 09-14-2023 11:30-0500 Body height 180.34 cm Lucila Arnett Other [facility] 09-14-2023 11:30-0500 Body mass index (BMI) [Ratio] 20.92 kg/m2 Lucila Arnett Other [facility] Other 09-14-2023 11:30-0500 Body weight 68.04 kg Lucila Arnett Other [facility] Other 09-14-2023 11:30-0500 Body weight 68.03 kg [facility] 09-14-2023 11:30-0500 Diastolic blood pressure 68 mm[Hg] Lucila Melquiades Other [facility] 09-14-2023 11:30-0500 Respiratory rate 16 /min Lucila Vidyar Other [facility] Other 09-14-2023 11:30-0500 SaO2% (BldA) [Mass fraction] 100 % Lucila Steveacher Other [facility] Other 09-14-2023 11:30-0500 Systolic blood pressure 110 mm[Hg] Lucila Steveacher Other [facility] 08-03-2023 10:00-0500 Body height 180.34 cm Lucila Arnett Other [facility] Other 08-03-2023 10:00-0500 Body mass index (BMI) [Ratio] 20.78 kg/m2 Lucila Vidyar Other [facility] Other 08-03-2023 10:00-0500 Body weight 67.59 kg Lucila Dasilvar Other [facility] Other 08-03-2023 10:00-0500 Diastolic blood pressure 66 mm[Hg] Lucila Wilsonacher Other [facility] Other 08-03-2023 10:00-0500 SaO2% (BldA) [Mass fraction] 98 % Lucila Arnett Other [facility] Other 08-03-2023 10:00-0500 Systolic blood pressure 100 mm[Hg] Lucila Sanabriaelíasleanne Other [facility] Other Encounters Encounter Date Encounter Type Care Provider Facility Start: 05-19-2024 End: 05-19-2024 ambulatory WON TREVON Not Available Start: 05-08-2024 End: 05-08-2024 ambulatory WON TREVON Not Available Start: 04-24-2024 End: 04-24-2024 ambulatory WON TREVON Not Available Start: 04-10-2024 End: 04-10-2024 ambulatory WON TREVON Not Available Start: 03-31-2024 End: 03-31-2024 ambulatory WON R [facility] Start: 03-27-2024 End: 03-27-2024 ambulatory WON TREVON Not Available Start: 03-25-2024 End: 03-25-2024 ambulatory WON R [facility] Start: 03-13-2024 End: 03-13-2024 ambulatory PEDRO TABOR Not Available Start: 02-28-2024 End: 02-28-2024 ambulatory WON TREVON Not Available Start: 02-25-2024 End: 02-25-2024 ambulatory WON [facility] Start: 02-13-2024 End: 02-13-2024 ambulatory WON TREVON Not Available Start: 01-30-2024 End: 01-30-2024 ambulatory WON TREVON Not Available Start: 01-21-2024 End: 01-21-2024 ambulatory WON R [facility] Start: 01-17-2024 End: 01-17-2024 ambulatory WON TREVNO Not Available Start: 01-03-2024 End: 01-03-2024 ambulatory WON TREVON Not Available Start: 12-26-2023 End: 12-26-2023 ambulatory WON TREVON Not Available Start: 12-13-2023 End: 12-13-2023 ambulatory WON TREVON Not Available Start: 12-10-2023 End: 12-11-2023 ambulatory HAKEEM YODER [facility] Start: 12-10-2023 End: 12-10-2023 Encounter identifier Hill Sánchez Ann-Marie Work Phone: [facility] [place] Start: 12-06-2023 End: 12-07-2023 ambulatory HAKEEM YODER [facility] Start: 12-03-2023 End: 12-04-2023 ambulatory HAKEEM YODER [facility] Start: 11-29-2023 End: 11-30-2023 ambulatory HAKEEM YODER [facility] Start: 11-26-2023 End: 11-27-2023 ambulatory HAKEEM YODER [facility] Start: 11-23-2023 End: 11-24-2023 ambulatory HAKEEM YODER [facility] Start: 11-21-2023 End: 11-22-2023 ambulatory HAKEEM YODER [facility] Start: 11-19-2023 End: 11-20-2023 ambulatory CLOTH PRESSER LUCILA ARNETT Facility[facility] Start: 11-19-2023 End: 11-19-2023 Patient encounter procedure LUCILA ARNETT [facility] Start: 11-14-2023 End: 11-14-2023 ambulatory [facility] Work Phone: Start: 11-14-2023 End: 11-14-2023 Patient encounter procedure [facility] Work Phone: Start: 11-02-2023 ambulatory EARLE CHEN Facility:[facility] Start: 11-02-2023 End: 11-02-2023 Office outpatient new 60 minutes Earle Chen MD Work Phone: [facility] [place] Comment on above: Endometriosis (Prima ry Dx); Pelvic pain; Myalgia of pelvic floor; Dysmenorrhea; Dyspareunia in female; Nausea and vomiting, unspecified vomiting type; Bladder pain; Anxiety Start: 10-17-2023 End: 10-17-2023 Patient encounter procedure [facility] Work Phone: Start: 09-14-2023 End: 09-14-2023 ambulatory Lucila Arnett Other [facility] Other Start: 09-14-2023 Office outpatient vi sit 25 minutes Lucila Arnett [facility] Start: 09-14-2023 End: 09-14-2023 Patient encounter procedure [facility] Start: 08-09-2023 End: 08-09-2023 ambulatory Lucila Arnett Other [facility] Other Start: 08-09-2023 Telephone encounter Lucila Dan her [facility] Start: 08-03-2023 End: 08-03-2023 ambulatory Lucila Arnett Other [facility] Other Start: 08-03-2023 Office outpatient ne w 30 minutes Lucila Arnett [facility] Start: 08-03-2023 Telephone encounter Lucila Dan her [employer] Start: 07-12-2020 End: 07-13-[address] WON [...] Endometriosis Pelvic pain Expected: 11/02/2023, Expires: 11/01/2024 [facility] Comment on above: Expected: 11/02/2023 , Expires: 11/01/2024 Start: 10-17-2023 Patient referral [facility] Work Phone: Start: 04-20-2023 COVID-19 VACCINE ( season) COVID-19 VACCINE ( season) [facility] Start: 04-20-2023 Influenza vaccination INFLUENZA VACC INE (#1) [facility] Start: 2017 Screening for malign ant neoplasm of cervix CERVICAL CANCER SCREENING DISCUSSION [facility] Start: 11-08-2015 Hepatitis B vaccination HEP B VACCINE (1 of 3 - 19+ 3-dose series) [facility] Start: 11-08-2015 Third diphtheria, te tanus and acellular pertussis (DTaP) vaccination TDAP (ADULT) [facility] Start: 2012 Screening for Chlamy david trachomatis CHLAMYDIA SCREEN [facility] Start: 11-08-2011 HIV screening HIV SCREENING DISCUSSION [facility] Start: 11-08-2011 Vaccination for kale n papillomavirus HPV VACCINE ADOL (1 - 3-dose series) [facility] Start: 1996 Hepatitis C screening HEPATITI S C VIRUS SCREENING [facility] Start: 1996 Screening for Chlamy david trachomatis GONORRHEA SCREEN [facility] Start: 1996 Tetanus vaccination TETANUS [facility] Patient referral [facility] Work Phone: Payers Date Payer Category Payer Medicaid [id number] 2023 [employer] ( and others) [id number] 2023 [employer] ( and others) [facility] [id number] 2023-Present [address] [place] [address] [id number] 2023 [employer] ( and others) [id number] 1996 Unknown [id number] 1995 Unknown [id number] 2.16.840.1.152684.3.579.2.5 93 1996 Unknown [id number] 2.16.840.1.019362.3.579.2.5 93 1996 Unknown [id number] 2.16.840.1.183623.3.579.2.5 93 1996 Unknown [id number] 2.16.840.1.121781.3.579.2.5 93 1996 Unknown [id number] 2.16.840.1.452144.3.579.2.5 94 1996 Unknown [id number] 2.16.840.1.155525.3.579.2.7 27 1996 Unknown [id number] 2.16.840.1.856325.3.579.2.1 143 1996 Unknown [id number] 2.16.840.1.365534.3.579.2.1 [facility] 1996 Unknown [id number] 2.16.840.1.638737.3.579.2.1 143 1996 Unknown [id number] 2.16.840.1.711701.3.579.2.1 [facility] 1996 Unknown [id number] 2.16.840.1.825460.3.579.2.1 143 1996 Unknown [id number] 2.16.840.1.303904.3.579.2.1 [facility] 1996 Unknown [id number] 2.16.840.1.152240.3.579.2.1 143 1996 Unknown [id number] 2.16.840.1.949586.3.579.2.1 [facility] 1996 Unknown [id number] 2.16.840.1.180498.3.579.2.1 286 1996 Unknown [id number] 2.16.840.1.549197.3.579.2.1 286 1996 Unknown [id number] 2.16.840.1.526283.3.579.2.1 286 1996 Unknown [id number] 2.16.840.1.752914.3.579.2.1 286 1996 Unknown [id number] 2.16.840.1.066789.3.579.2.1 286 1996 Unknown [id number] 2.16.840.1.078227.3.579.2.1 259 1996 Unknown [id number] 2.16.840.1.362822.3.579.2.1 259 1996 Unknown [id number] 2.16.840.1.156093.3.579.2.1 259 1996 Unknown [id number] 2.16.840.1.071077.3.579.2.1 259 1996 Unknown [id number] 2.16.840.1.763337.3.579.2.1 259 1996 Unknown [id number] 2.16.840.1.563534.3.579.2.1 259 1996 Unknown [id number] 2.16.840.1.338726.3.579.2.1 259 1996 Unknown [id number] 2.16.840.1.800732.3.579.2.1 259 1996 Unknown [id number] 2.16.840.1.659052.3.579.2.1 259 1996 Unknown [id number] 2.16.840.1.511669.3.579.2.1 259 1996 Unknown [id number] 2.16.840.1.348025.3.579.2.1 259 1996 Unknown [id number] 2.16.840.1.006324.3.579.2.1 259 1996 Unknown [id number] 2.16.840.1.625570.3.579.2.1 259 1959 [employer] [id number] 1958 [employer] [id number] [employer] others) [id number] 2.16.840.1.780811.19 Social History Date Type Detail Facility Start: 11-02-2023 Sex Assigned At [facility] Start: 09-30-2017 End: 11-02-2023 Tobacco smoking status NHIS Never smoked tobacco [facility] Start: 11-02-2023 Tobacco use and exposure Smokeless tobacco non-user [facility] Start: 11-02-2023 Alcoholic beverage intake Lifetime non-drinker (finding) [facility] Start: 11-02-2023 History of Social function [facility] Start: 1995 Sex assigned at Not on file [facility] Start: 1995 Sex Assigned At Female [facility] Start: 12-10-2023 Tobacco smoking status NHIS Unknown if ever smoked [facility] Start: 12-10-2023 Alcohol intake Alcohol Use Details [facility] Start: 09-04-2023 Sexual Orientation Lesbian, lynch or homosexual [facility] Clinical Notes 06-25-2020 to 11-19-2023 Earle Chen MD - 11/02/2023 2:30 PM EDT Note Date & Type Note Facility 11-19-2023 Evaluation + Plan note Diagnostic Tests PendingT3 Free 11/19/23Thyroid Perox.tpo Ab 11/19/23TgAb+Thyroglobulin,[facility]ING or [facility] 11/19/23 [facility] 11-02-2023 History of Present illness Narrative GYNECOLOGY CONSULT NOTE REASON FOR VISIT Endometriosis Pelvic pain HISTORY OF PRESENT ILLNESS Ms. Medrano is a 27 y.o. (NSVDx2) who presents for consultation regarding endometriosis, pelvic pain. Records review: Moved back from [place] to [place] (2021) First diagnosed in 2018 Has had [...] to get her medical records in [place], but they would not send them. She [...] She had a women's health doctor in [facility] who told her she had stage IV endometriosis. She is no longer on the progesterone. Has tried vaginal valium does not help Her 2 previous pregnancies were with a previous partner. She and her are trying for another now. No BA in [place] Partner has not had a SA yet [...] patient today. documented in this encounter [facility] 09-14-2023 Evaluation note Encounter Date [...] educated on the risks and benefits of retirement use. Risk assessment was done. Patient is [...] Pt to call with any worsening symptoms. [facility] Other 12-21-2023 Evaluation note* Encounter Date Diagnosis Assessment Notes Treatment Notes Treatment Clinical Notes Jul, Generalized anxiety disorder (ICD-10 - F41.1) Jul, Endometriosis (ICD-1 0 - N80.9) [facility] Other 12-15-2023 Evaluation note* Encounter Date Diagnosis [...] educated on the risks and benefits of retirement use. Risk assessment was done as well [...] intractable, unspecified migraine type (ICD-10 - G43.909) [facility] Other 11-06-2020 NoteOPERATIVE NOTE OPERATION DATE: 06-25-20 ANESTHETIC:General. BRASS BURNISHER:None. PREOPERATIVE DIAGNOSIS: 1. Dyspareunia. 2. Right and [...] lap, and needle counts were correct x2. [facility] Signed and Approved by: DR WON LESTER . 07/30/2020 13:02:00[facility] note* Clinical Note Date No Information [facility] Work Phone: Discharge summary* Clinical Note Date No Information [facility] Phone: [facility] Other [facility] note* Diagnosis Endometriosis- Primary Endometriosis, site unspecified Pelvic pain Unspecified symptom associated with female genital organs Myalgia of pelvic floor Dysmenorrhea Dyspareunia in female Nausea and vomiting, unspecified vomiting type Bladder pain Other symptoms involving urinary system Anxiety Anxiety state, unspecified [facility] Onset Date Resolution Status Depression acute Generalized anxiety disorder acute Obsessive compulsive disorder acute PTSD (post-traumatic stress disorder) acute Depression acute Endometriosis acute Generalized anxiety disorder acute Obsessive compulsive disorder acute PTSD (post-traumatic stress disorder) acute TBI (traumatic brain injury) acute [facility] Work Phone: Evaluation note* Type Assessment Date No Information [facility] Work Phone: History and physical note* Clinical Note Date No Information [facility] Work Phone: History general Narrative - Reported* Type Description Date Medical History Anxiety Medical History Stage 4 Endometriosis Medical History Depression with manic episodes Medical History OCD Medical History PTSD Medical History TBI Surgical History Endometriosis surgery x2 Surgical History [place] teeth Surgical History Injections in cervix [facility] Other History of Present illness Narrative* Encounter Date Complaint History Of Prese nt Illness No Information [facility] Work Phone: Hospital course Narrative No data available for this section [facility] No data available for this section [facility]* Date Instruction Additional Infor mation No Information [facility] Work Phone: Progress note No data available for this section [facility]* Clinical Note Date No Information [facility] Work Phone: Reason for referral (narrative)* Consultation (Routine) - New Request Specialty Diagnoses / Procedures Referred By Contac t Referred To Contact Psychology Diagnoses Pelvic pain Anxiety Earle Chen MD [address] [place] [address] Oksana Luu, PhD [address] [place] [address] Referral ID Status Reason Start Date Expiration Date V isits Requested Visits Authorized [id number] New Request 11/02/2023 11/26/2024 1 1 * Consultation (Routine) - New Request Specialty Diagnoses / Procedures Referred By Contac t Referred To Contact Integrative Medicine Diagnoses Pelvic pain Nausea and vomiting, unspecified vomiting type Earle Chen MD [address] [place] [address] Referral ID Status Reason Start Date Expiration Date V isits Requested Visits Authorized [id number] New Request 11/02/2023 11/26/2024 1 1 * Consultation (Routine) - New Request Specialty Diagnoses / Procedures Referred By Contac t Referred To Contact Gynecology Diagnoses Pelvic pain Myalgia of pelvic floor Bladder pain Earle Chen MD [address] [place] [address] Referral ID Status Reason Start Date Expiration Date V isits Requested Visits Authorized [id number] New Request 11/02/2023 11/26/2024 1 1 * MRI/CAT Scan (Routine) - New Request Specialty Diagnoses / Procedures Referred By Contac t Referred To Contact Diagnoses Endometriosis Pelvic pain Procedures MRI PELVIS WITH AND WITHOUT CONTRAST SD MRI, PELVIS, COMBO Earle Chen MD [address] [place] [address] Referral ID Status Reason Start Date Expiration Date V isits Requested Visits Authorized [id number] New Request 11/02/2023 11/26/2024 1 1 [facility] Reason For Referral No Information [facility] Work Phone: Summary Purpose Family History No [...] Diagnosis 1 Endometriosis (N80.9 ) Referral Organization [facility] Referring Provider First Name Lucila Referring Provider Last Name Steveacher Referring Provider Specialty Nurse Pract itioner Referred Organization [facility] Referred Provider Jena Suresh Referred Address ,[place], [place],[address] Referred Provider Specialty OB - Gynecol ogy [...] intractable, unspecified migraine type (G43.909) Referral Organization [facility] [employer] Referring Provider First Name Lucila Referring Provider Last Name Steveacher Referring Provider Specialty Nurse Pract itioner Referred Organization [facility] Referred Provider Herbie Arroyo Referred Address [address] [place], [place],[address] Referred Provider Specialty Neurology Referral Priority Routine [...] 1 Endometriosis (N80.9 ) Referral Organization [facility] Referring Provider First Name Lucila Referring Provider Last Name Melquiades Referring Provider Specialty Nurse Pracdain serrano Referred Organization [facility] Referred Address [address] [place], [place],[address] Referred Provider Specialty Endocrinolog y Referral Priority [...] and content) DATE CREATED AUTHOR [facility]/15/2020 [facility] DATE CREATED AUTHOR AUTHOR'S ORGANIZ ATION 11/03/2023 [facility] DATE CREATED AUTHOR AUTHOR'S ORGANIZ ATION 11/20/2023 [facility] DATE CREATED AUTHOR AUTHOR'S ORGANIZ ATION 12/15/2023 [facility] DATE CREATED AUTHOR AUTHOR'S ORGANIZ ATION 04/01/2024 [facility] DATE CREATED AUTHOR AUTHOR'S ORGANIZ ATION 05/19/2024 [facility] dical Specialists EPIC REASON FOR VISIT (unrecogniz ed section and content) Reason Comments Consult Pt diagnosis with En dometriosis in 2018. Patient desire . Specialty Diagnoses / Procedures Referred By Harris t Referred To Contact FURNACE FILLER Diagnoses Endometriosis Lucila Arnett, CLOTH PRESSER [address] [facility] [place] [address] [facility] [address] [place] [address] Referral ID Status Reason Start Date Expiration Date V isits Requested Visits Authorized [id number] New Request 10/23/2023 11/16/2024 1 1 Care Teams (unrecognized sec tion and content) Team Status: Active Member Role Status Dates Lucila Arnett APRN BIN OPERATOR-C Primary Care Provider Active Team Status: Inactive Member Role Status Dates Lucila Arnett APRN BIN OPERATOR-C Attending Provider Act vinicius Start: September 14, 2023 End: September 14, 2023 Team Status: Inactive Member Role Status Dates Lucila Arnett APRN BIN OPERATOR-C Primary Care Provider, Attending Provider Active Start: October 17, 2023 End: October 17, 2023 Team Status: Inactive Member Role Status Dates Lucila Arnett APRN BIN OPERATOR-C Primary Care Provider, Attending Provider Active [...] BE BASED ON THE PRIMARY CLINICAL RECORDS. [employer] provides no warranty or guarantee of the accuracy or completeness of information in this document.
[2024-06-03 10:59] VITALS: BP 113/72; PULSE 100
== END 2024-06-03 11:25 | disposition home or self-care (01) ==
LOC: FBCO 07:02 → FBC 10:48
PROVIDERS: PCP Nurse Practitioner Family; Visit Provider Obstetrics & Gynecology
DX: O26.893 Other specified pregnancy related conditions, third trimester (principal); Z3A.32 32 weeks gestation of pregnancy
CPT/HCPCS: 59025

== ENCOUNTER 2024-06-05 09:52 | Outpatient (OUT) | payer OTHER, SELFPAY ==
--- NOTE | 2024-06-05 09:54 | US_ITS ---
[address] [address] Patient Name: COLTON VERMA MRN: [id number] date: 1995 Sex: F Assigned Patient Location: [facility] Current Patient Location: [facility] Accession/Order Number: [id number] Exam Date: 06/05/2024 09:55 Report Date: 06/05/2024 11:22 At the request of: WON LESTER Procedure: US OB growth EXAMINATION: US OB growth HISTORY: HISTORY OF DELIVERY COMPARISON: No relevant comparison available. FINDINGS: Heart Rate: 165 bpm Amniotic Fluid Volume: 12.1 cm. Largest fluid pocket 3.5 cm Number: 1 Position: Cephalic presentation, longitudinal lie BIOMETRY: BPD: 7.90 cm; 31 weeks 5 days; 16.10 % HC: 30.44 cm; 33 weeks 6 days; 42.30 % AC: 29.80 cm; 33 weeks 5 days; 79.60 % FL: 6.66 cm; 34 weeks 2 days; 78.80 % EFW: 2042.11 g; 72.50 % 5 lbs. 0 oz. FL/AC: 22.35 FL/BPD: 84.30 HC/AC: 1.02 GESTATIONAL AGE: Age by EDC: 32 weeks 5 days SINA by EDC: 2024-07-26 Age by US: 33 weeks 3 days SINA by US: 2024-07-21 US/US OB growth IMPRESSION: Normal interval growth Electronically authenticated by: DARLINE ESPITIA Date: 06/05/2024 11:22
--- OUTSIDE RECORDS SUMMARY | 2024-06-05 09:56 | XMS_ITS | CCD ---
Author Organization [facility] Inform ion [facility] Care Team Providers Care Tin Can Feeder Name Role Phone TREVON, DR UPTON Admitting [...] TREVON, DR UPTON Consulting Unavailable TREVON, DR UTPON Admitting Unavailable TREVON, DR UPTON Attending Unavailable TREVON, DR UPTON Consulting Unavailable TREVON, DR UPTON Admitting Unavailable TREVON, DR UPTON Attending Unavailable Lucila Arnett Unavailable [phone] Unavailable Primary Care Provider Unavailabl e MISAL, EARLE Attending Unavailable LUCILA ARNETT Referring Unavailable LUCILA ARNETT Primary Care Physician [phone] KHADRA ARNETT Attending Unava ilable KHADRA ARNETT [...] Attending Unavailable TREVON, WON Attending Unavailable TREVON, WNO Attending Unavailable TREVON, WON Attending Unavailable TREVON, WON Attending Unavailable Allergies Allergy Classification Reported Allergen(s) Allergy Type Date of Onset Reaction(s) Facility Opioid Agonists (1 source) traMADol Drug Allergy 0 [facility] Repository (6 sources) traMADol; Translations: [TRAMADOL] Drug Allergy 4 Unknown, Unknown Reaction [facility] (6 sources) Lavender Oil; Translations: [LAVENDER OIL] Drug allergy 4 Unknown [facility] Repository (1 source) lavender (Lavandula angustifolia) Allergy to substance 4 Unknown Reaction [facility] (1 source) GALCANEZUMAB-GN ; Translations: [GALCANEZUMAB-G [facility]] Propensity to adverse reactions to drug (disorder) [...] oral solution (1 source) alpha-Adrenergic Agonist, Uncompetitive Y-diimnh-M-aspartate Receptor Antagonist, Sigma-1 Agonist Start: 09-30-2017 take [...] 10 tab(s), Refills(s) 0, Pharmacy: [facility] 1984 Start Date: 09/21/18 Status: Ordered Completed/Discontinued [...] Facility HCG.beta subunit Qnon 2023 hCG Quant [id number] mIU/mL Normal [facility] - [...] method. Performed By: #### 2 1198-7 #### [facility] [address] [place] [address] HCG.beta subunit Qnon 2023 hCG Quant 15030 mIU/mL Normal [facility] Comment on above: Order Comment: Pregn [...] method. Performed By: #### 2 1198-7 #### [facility] [address] [place] [address] HCG.beta subunit Qnon 2023 hCG Quant 45553 mIU/mL Normal [facility] Comment on above: Order Comment: Pregn [...] method. Performed By: #### 2 1198-7 #### [facility] [address] [place] [address] HCG.beta subunit Qnon 2023 hCG Quant 82234 mIU/mL Normal [facility] Comment on above: Order Comment: Pregn [...] method. Performed By: #### 2 1198-7 #### [facility] [address] [place] [address] HCG.beta subunit Qnon 2023 hCG Quant 2709 mIU/mL Normal [facility] Comment on above: Order Comment: Pregn [...] method. Performed By: #### 2 1198-7 #### [facility] [address] [place] [address] HCG.beta subunit Qnon 2023 hCG Quant 776 mIU/mL Normal [facility] Comment on above: Order Comment: Pregn [...] method. Performed By: #### 2 1198-7 #### [facility] [address] [place] [address] HCG.beta subunit Qnon 2023 hCG Quant 250 mIU/mL Normal [facility] Comment on above: Order Comment: Pregn [...] method. Performed By: #### 2 1198-7 #### [facility] [address] [place] [address] .Thyroglobulin by IMAon Thyroglobulin [Mass/Vol] 5.0 ng/mL Invalid Interpretation Code 1.5-38.5 [facility] Comment on above: Result Comment: Acco [...] by John Vish Immunometric Assay Performed at: [facility] [id number] PhD Johanny Nieto Performed By: #### 2 [id number], [id number], [id number], [id number], [id number], [id number], [id number] #### [facility] [address] [place] [address] T3 Freeon 11-20-2023 Free T3 [Mass/Vol] 3.2 pg/mL Invalid Interpretation Code 2.0-4.4 [facility] Comment on above: Result Comment: Perf ormed at: [address] [id number] PhD Johanny Nieto Performed By: #### 2 936120, [id number], [id number], 2815502, [id number], [id number], [id number] #### [facility] [address] [place] [address] TgAb+Thyroglobulinon 024 Thyroglobulin Ab Qn [IU]/mL Invalid Interpretation Code 0.0-0.9 [facility] Comment on above: Result Comment: Thyr oglobulin Antibody measured by Free Flow Power Methodology It should be noted that the presence of thyroglobulin antibodies may not be pathogenic nor diagnostic, especially at very low levels. The assay children's lunchroom supervisor has found that four percent of individuals without evidence of thyroid disease or autoimmunity will have positive TgAb levels up to 4 IU/mL. Performed at: [address] [id number] PhD Johanny Nieto Performed By: #### 2 658903, [id number], 15825552, 6413577, [id number], [id number], [id number] #### [facility] [address] [place] [address] Thyroid Perox.tpo Abon 11-19 TPO Ab Qn [IU]/mL Invalid Interpretation Code 0-34 [facility] Comment on above: Result Comment: Perf ormed at: [address] [id number] PhD Johanny Nieto Performed By: #### 2 538530, [id number], [id number], 9087310, [id number], [id number], [id number] #### [facility] [address] [place] [address] BhG Quanton 11-19-2023 HCG.beta subunit Qn 86 m[IU]/mL High 1-3 [facility] Comment on above: Result Comment: 'F N ON < 1 - 3' ' 0.2 - 1 WEEK = 5 TO 50' ' 1 - 2 WEEKS = 50 - 500' ' 2 - 3 WEEKS = 100 - 5000' ' 3 - 4 WEEKS = 500 - 36657' ' 4 - 5 WEEKS = 1000 - 78904' ' 5 - 6 WEEKS = 67744 - 248933' ' 6 - 8 WEEKS = 26173 - 736384' ' 8 - 12 WEEKS = 50866 - 409794' Performed By: #### 2 [id number] #### [facility] [address] [place] [address] CHEMISTRYOrdered By: SYSTEM SYSTEM on 11-19-2023 HCG.beta [...] 3 - 4 WEEKS = 500 - 79502' ' 4 - 5 WEEKS = 1000 - 76506' ' 5 - 6 WEEKS = 10488 - 308169' ' 6 - 8 WEEKS = 25898 - 659106' ' 8 - 12 WEEKS = 66033 - 672148' Iron [Mass/Vol] 161 ug/dL High 35 - 153 mcg/dL Remisol Chem Iron binding capacity [Mass/Vol] 316 ug/dL Normal 250 - 400 mcg/dL Remisol Chem Transferrin [Mass/Vol] 226 mg/dL Normal 200 - 370 mg/dL Rem[facility] Chem TSH Qn 1.53 m[IU]/L Normal 0.34 - 5.60 mcIU/mL Remisol Chem Consent for Treatmenton 0 Consent for Treatment [id number] .00TIFF Normal [facility] Ironon 11-19-2023 Iron [Mass/Vol] 161 microgram/dL High 35-153 Fis [facility] Comment on above: Performed By: #### 2 610862, 64628379, 40874748, 3469195, 036385341, 783237511, [id number] #### [facility] [address] [place] [address] Physician Orderon 11-19-2023 Physician Order [id number] .00TIFF Normal [facility] TIBC Calculatedon 11-19-2023 Iron binding capacity [Mass/Vol] 316 microgram/dL Normal 250-400 [facility] Comment on above: Performed By: #### 2 807806, 26583098, 73063165, 4690188, 825707495, 597928169, 81006762 #### [facility] [address] [place] [address] Transferrin [Mass/Vol] 226 mg/dL Normal 200-370 [facility] Comment on above: Performed By: #### 2 588844, 36137839, 34662728, 1572003, 204191659, [id number], [id number] #### [facility] [address] [place] [address] TSH With T4fr Reflexon 11-18 TSH Qn 1.53 m[IU]/L Normal 0.34-5.60 [facility] Comment on above: Performed By: #### 2 454402, 60028399, 27464920, 2490950, 833769636, 383929852, [id number] #### [facility] [address] [place] [address] TSHon 07-12-2020 TSH 0.756 uIU/mL Normal 0.470-4.680 [facility] Comment on above: Performed By: #### T #### [facility] [address] [place], [place] [address] Jayne Noris TSH RANGE SEE BELOW Normal [facility] Comment on above: Result Comment: <0.3 4 UIU/ml HYPERTHYROID 0.34-5.60 UIU/ml EUTHYROID >5.60 UIU/ml HYPOTHYROID Performed By: #### T SH #### [facility] [address] [place] [address] Jayne Noris CBC AUTO DIFFon 06-25-2020 BASO # 0.1 103/ul Normal 0.0-0.1 [facility] Comment on above: Performed By: #### C BC #### [facility] [address] [place] [address] Jayne Noris Basophils/100 WBC (Bld) 1.2 % Normal 0.2-2.0 [facility] Comment on above: Performed By: #### C BC #### [facility] [address] [place] [address] Jayne Noris EO # 0.2 103/ul Normal 0.0-0.7 [facility] Comment on above: Performed By: #### C BC #### [facility] [address] [place], [place] [id number] Jayne Noris Eosinophils/100 WBC (Bld) 2.6 % Normal 0.9-7.0 [facility] Comment on above: Performed By: #### C BC #### [facility] [address] [place] [address] Jayne Noris Erythrocyte distribution width (RBC) [Ratio] 12.0 % Normal 11.0-15.0 [facility] Comment on above: Performed By: #### C BC #### [facility] [address] [place] [address] Jayne Noris Hematocrit (Bld) [Volume fraction] 40.7 % Normal 36.0-48.0 [facility] Comment on above: Performed By: #### C BC #### [facility] [address] [place], [place] [id number] Jayne Noris Hemoglobin (Bld) [Mass/Vol] 13.6 g/dL Normal 12.0-16.0 [facility] Comment on above: Performed By: #### C BC #### [facility] [address] [place] [address] Jayne Noris IG # 0.01 10e3/ul Normal 0.00-0.03 [facility] Comment on above: Performed By: #### C BC #### [facility] [address] [place] [address] Jayne Noris IG % 0.2 % Normal 0.0-0.5 [facility] Comment on above: Performed By: #### C BC #### [facility] [address] [place] [address] Jayne Noris LYMPH # 1.9 103/ul Normal 1.2-3.8 [facility] Comment on above: Performed By: #### C BC #### [facility] [address] [place] [address] Jayne Noris Lymphocytes/100 WBC (Bld) 32.5 % Normal 20.5-60.0 [facility] Comment on above: Performed By: #### C BC #### [facility] [address] [place] [address] Jayne Noris MANUAL DIFF REQ NO Normal [facility] Comment on above: Performed By: #### C BC #### [facility] [address] [place] [address] Jayne Noris MCH (RBC) [Entitic mass] 31.3 pg Normal 26.7-34.0 [facility] Comment on above: Performed By: #### C BC #### [facility] [address] [place] [address] Jayne Noris MCHC (RBC) [Mass/Vol] 33.4 g/dL Normal 29.9-35.2 [facility] Comment on above: Performed By: #### C BC #### [facility] [address] [place] [address] Jayne Noris MCV (RBC) [Entitic vol] 93.6 fL Normal 81.0-99.0 [facility] Comment on above: Performed By: #### C BC #### [facility] [address] [place] [address] Jayne Hamm MONO # 0.6 103/ul Normal 0.3-0.8 [facility] Comment on above: Performed By: #### C BC #### [facility] [address] [place] [address] Jayne Hamm Monocytes/100 WBC (Bld) 10.4 % Normal 1.7-12.0 [facility] Comment on above: Performed By: #### C BC #### [facility] [address] [place] [address] Jaynejeremías Cruzen NEUT # 3.1 103/ul Normal 1.4-6.5 [facility] Comment on above: Performed By: #### C BC #### [facility] [address] [place] [address] Jayne Hamm Neutrophils/100 WBC (Bld) 53.1 % Normal 43.0-75.0 [facility] Comment on above: Performed By: #### C BC #### [facility] [address] [place] [address] Jayne Hamm Platelet mean volume (Bld) [Entitic vol] 8.9 fL Critically low 9.5-13.5 [facility] Comment on above: Performed By: #### C BC #### [facility] [address] [place] [address] Jaynejeremías Cruzen PLT 265 103/ul Normal 150-450 [facility] Comment on above: Performed By: #### C BC #### [facility] [address] [place] [address] Jaynejeremías Cruzen RBC 4.35 106/ul Normal 4.20-5.40 [facility] Comment on above: Performed By: #### C BC #### [facility] [address] [place], [place] [id number] Jayne Noris WBC 5.8 103/ul Normal 4.0-11.0 [facility] Comment on above: Performed By: #### C BC #### [facility] [address] [place] [address] Jaynejeremías Cruzen PREG QUANT HCGon 06-25-2020 HCG QUANT 1.00 mIU/mL Normal [facility] Comment on above: Performed By: #### P REGQNT #### [facility] [address] [place] [id number] Jayne Hamm HCG RANGE SEE BELOW [facility] Comment on above: Result Comment: 5-50 0-1 WEEK 40-300 1-2 WEEKS 100-1,000 2-3 WEEKS 500-6,000 3-4 WEEKS 5,000-200,000 1-2 MONTHS 10,000-100,000 2-3 MONTHS 3,000-50,000 2ND TRIMESTER 1,000-50,000 3RD TRIMESTER Performed By: #### P REGQNT #### [facility] [address] [place] [address] Jayne Hamm PAP ACOG PANEL 2: 21 to 29on 05-06-2020 . . Normal [facility] Comment on above: Performed By: #### 4 [id number] #### [facility] [address] [place] [address] Jayne Hamm Age Gdln ACOG Testing - [facility] Comment on above: Performed By: #### 4 [id number] #### [facility] [address] [place] [address] Jayne Hamm DIAGNOSIS: Comment Normal [facility] Comment on above: Result Comment: NEGA TIVE FOR INTRAEPITHELIAL LESION OR MALIGNANCY. Performed By: #### 4 [id number] #### [facility] [address] [place] [address] Jayne Hamm Methodology: Comment Normal [facility] Comment on above: Result Comment: This liquid based SurePath(R) pap test was screened with the assistance of an image guided system. Performed By: #### 4 [id number] #### [facility] [address] [place] [id number] Jayne Hamm Note: Comment Normal [facility] Comment on above: Result Comment: The Pap smear is a screening test designed to aid in the detection of premalignant and malignant conditions of the uterine cervix. It is not a diagnostic procedure and should not be used as the sole means of detecting cervical cancer. Both false-positive and false-negative reports do occur. . Performed By: #### 4 [id number] #### [facility] [address] [place] [address] Jayne Hamm Performed by: Comment Normal [facility] Comment on above: Result Comment: Suman Rzd, Fiberglass Fabricator (ASCP) Performed By: #### 4 [id number] #### [facility] [address] [place] [address] Jayne Hamm Reflex Criteria: Comment Normal [facility] Comment on above: Result Comment: The HPV DNA reflex criteria were not met with this specimen result therefore, no HPV testing was performed. . Performed By: #### 4 [id number] #### [facility] [address] [place] [address] Jayne Noris Specimen adequacy: Comment Normal [facility] Comment on above: Result Comment: Sati sfactory for evaluation. Endocervical and/or squamous metaplastic cells (endocervical component) are present. Performed By: #### 4 [id number] #### [facility] [address] [place] [address] Jayne Hamm US PELVIS AND TRANSVAGon US [...] by: DARLINE ESPITIA Date: 2020-04-30 14:54 Normal [facility] Vital Signs Date Time Vital Sign Value Performing Clinician Facility 12-10-2023 09:18-0400 Diastolic blood pressure 84 mm[Hg] Hill Jacobsen Work Phone: [facility] 12-10-2023 09:18-0400 Heart rate 101 /min Hill Jacobsen Work Phone: [facility] 12-10-2023 09:18-0400 Respiratory rate 12 /min Hill Jacobsen Work Phone: [facility] 12-10-2023 09:18-0400 Systolic blood pressure 132 mm[Hg] Hill Jacobsen Work Phone: [facility] 11-02-2023 14:27-0400 Body height 180.3 cm Earle Chen MD Work Phone: [facility] 11-02-2023 14:27-0400 Body mass index (BMI) [Ratio] 20.04 kg/m2 Earle Chen MD Work Phone: [facility] 11-02-2023 14:27-0400 Body weight 65.18 kg Earle Chen MD Work Phone: [facility] 11-02-2023 14:27-0400 Diastolic blood pressure 80 mm[Hg] Earle Chen MD Work Phone: [facility] 11-02-2023 14:27-0400 Systolic blood pressure 110 mm[Hg] Earle Chen MD Work Phone: [facility] 09-14-2023 11:30-0500 Body height 180.34 cm Lucila Arnett Other [facility] 09-14-2023 11:30-0500 Body mass index (BMI) [Ratio] 20.92 kg/m2 Lucila Arnett Other [facility] Other 09-14-2023 11:30-0500 Body weight 68.04 kg Lucila Arnett Other [facility] Other 09-14-2023 11:30-0500 Body weight 68.03 kg [facility] 09-14-2023 11:30-0500 Diastolic blood pressure 68 mm[Hg] Lucila Melquiades Other [facility] 09-14-2023 11:30-0500 Respiratory rate 16 /min Lucila Vidyar Other [facility] Other 09-14-2023 11:30-0500 SaO2% (BldA) [Mass fraction] 100 % Lucila Steveacher Other [facility] Other 09-14-2023 11:30-0500 Systolic blood pressure 110 mm[Hg] Lucila Steveacher Other [facility] 08-03-2023 10:00-0500 Body height 180.34 cm Lucila Arnett Other [facility] Other 08-03-2023 10:00-0500 Body mass index (BMI) [Ratio] 20.78 kg/m2 Lucila Vidyar Other [facility] Other 08-03-2023 10:00-0500 Body weight 67.59 kg Lucila Dasilvar Other [facility] Other 08-03-2023 10:00-0500 Diastolic blood pressure 66 mm[Hg] Lucila Wilsonacher Other [facility] Other 08-03-2023 10:00-0500 SaO2% (BldA) [Mass fraction] 98 % Lucila Arnett Other [facility] Other 08-03-2023 10:00-0500 Systolic blood pressure 100 mm[Hg] Lucila Sanabriaelíasleanne Other [facility] Other Encounters Encounter Date Encounter Type Care Provider Facility Start: 05-19-2024 End: 05-19-2024 ambulatory WON TREVON Not Available Start: 05-08-2024 End: 05-08-2024 ambulatory WON TREVON Not Available Start: 04-24-2024 End: 04-24-2024 ambulatory WON TREVON Not Available Start: 04-10-2024 End: 04-10-2024 ambulatory WON TREVON Not Available Start: 03-31-2024 End: 03-31-[address] [facility] Start: 03-27-2024 End: 03-27-2024 ambulatory WON TREVON Not Available Start: 03-25-2024 End: 03-25-[address] [facility] Start: 03-13-2024 End: 03-13-2024 ambulatory PEDRO TABOR Not Available Start: 02-28-2024 End: 02-28-2024 ambulatory WON TREVON Not Available Start: 02-25-2024 End: 02-25-2024 ambulatory WON [facility] Start: 02-13-2024 End: 02-13-2024 ambulatory WON TREVON Not Available Start: 01-30-2024 End: 01-30-2024 ambulatory WON TREVON Not Available Start: 01-21-2024 End: 01-21-[address] [facility] Start: 01-17-2024 End: 01-17-2024 ambulatory WON TREVON Not Available Start: 01-03-2024 End: 01-03-2024 ambulatory WON TREVON Not Available Start: 12-26-2023 End: 12-26-2023 ambulatory WON TREVON Not Available Start: 12-13-2023 End: 12-13-2023 ambulatory WON TREVON Not Available Start: 12-10-2023 End: 12-11-2023 ambulatory HAKEEM YODER [facility] Start: 12-10-2023 End: 12-10-2023 Encounter identifier Hill Sánchez Ann-Marie Work Phone: [facility] Start: 12-06-2023 End: 12-07-2023 ambulatory HAKEEM YODER [facility] Start: 12-03-2023 End: 12-04-2023 ambulatory HAKEEM YODER [facility] Start: 11-29-2023 End: 11-30-2023 [facility] Start: 11-26-2023 End: 11-27-2023 ambulatory HAKEEM YODER [facility] Start: 11-23-2023 End: 11-24-2023 ambulatory HAKEEM YODER [facility] Start: 11-21-2023 End: 11-22-2023 ambulatory HAKEEM YODER [facility] Start: 11-19-2023 End: 11-20-2023 ambulatory TIRE MAN LUCILA ARNETT Facility:[facility] Start: 11-19-2023 End: 11-19-2023 Patient encounter procedure LUCILA ARNETT [facility] Start: 11-14-2023 End: 11-14-2023 ambulatory [facility] Work Phone: Start: 11-14-2023 End: 11-14-2023 Patient encounter procedure [facility] Work Phone: Start: 11-02-2023 ambulatory EARLE CHEN Facility:[facility] Start: 11-02-2023 End: 11-02-2023 Office outpatient new 60 minutes Earle Chen MD Work Phone: [facility] [place] Comment on above: Endometriosis (Prima ry Dx); Pelvic pain; Myalgia of pelvic floor; Dysmenorrhea; Dyspareunia in female; Nausea and vomiting, unspecified vomiting type; Bladder pain; Anxiety Start: 10-17-2023 End: 10-17-2023 Patient encounter procedure [facility] Work Phone: Start: 09-14-2023 End: 09-14-2023 ambulatory Lucila Arnett Other [facility] Other Start: 09-14-2023 Office outpatient vi sit 25 minutes Lucila Arnett [facility] Start: 09-14-2023 End: 09-14-2023 Patient encounter procedure [facility] Start: 08-09-2023 End: 08-09-2023 ambulatory Lucila Arnett Other [facility] Other Start: 08-09-2023 Telephone encounter Lucila Dan her [facility] Start: 08-03-2023 End: 08-03-2023 ambulatory Lucila Arnett Other [facility] Other Start: 08-03-2023 Office outpatient ne w 30 minutes Lucila Arnett [facility] Start: 08-03-2023 Telephone encounter Lucila Dan her [facility] Start: 07-12-2020 End: 07-13-[address] WON [...] Endometriosis Pelvic pain Expected: 11/02/2023, Expires: 11/01/2024 [facility] Comment on above: Expected: 11/02/2023 , Expires: 11/01/2024 Start: 10-17-2023 Patient referral [facility] Work Phone: Start: 04-20-2023 COVID-19 VACCINE ( season) COVID-19 VACCINE ( season) [facility] Start: 04-20-2023 Influenza vaccination INFLUENZA VACC INE (#1) [facility] Start: 2017 Screening for malign ant neoplasm of cervix CERVICAL CANCER SCREENING DISCUSSION [facility] Start: 11-08-2015 Hepatitis B vaccination HEP B VACCINE (1 of 3 - 19+ 3-dose series) [facility] Start: 11-08-2015 Third diphtheria, te tanus and acellular pertussis (DTaP) vaccination TDAP (ADULT) [facility] Start: 2012 Screening for Chlamy david trachomatis CHLAMYDIA SCREEN [facility] Start: 11-08-2011 HIV screening HIV SCREENING DISCUSSION [facility] Start: 11-08-2011 Vaccination for kale n papillomavirus HPV VACCINE ADOL (1 - 3-dose series) [facility] Start: 1996 Hepatitis C screening HEPATITI S C VIRUS SCREENING [facility] Start: 1996 Screening for Chlamy david trachomatis GONORRHEA SCREEN [facility] Start: 1996 Tetanus vaccination TETANUS [facility] Patient referral [facility] Work Phone: Payers Date Payer Category Payer Medicaid [id number] 2023 [employer] others) [id number] 2023 [employer] [facility] [id number] 2023-Present [address] [place] [address] 1.2.840.841733.1.13.172.2.7 .3.749884.315 2023 [employer] ( and others) [id number] 1996 Unknown [id number] 2.16.840.1.830851.3.579.2.5 93 1996 Unknown [id number] 2.16.840.1.125223.3.579.2.5 93 1996 Unknown [id number] 2.16.840.1.755118.3.579.2.5 93 1996 Unknown [id number] 2.16.840.1.352405.3.579.2.5 93 1996 Unknown [id number] 2.16.840.1.782359.3.579.2.5 93 1996 Unknown [id number] 2.16.840.1.086757.3.579.2.5 94 1996 Unknown [id number] 2.16.840.1.602108.3.579.2.7 27 1996 Unknown [id number] 2.16.840.1.948302.3.579.2.1 143 1996 Unknown [id number] 2.16.840.1.677206.3.579.2.1 [facility] 1996 Unknown [id number] 2.16.840.1.976787.3.579.2.1 143 1996 Unknown [id number] 2.16.840.1.603414.3.579.2.1 [facility] 1996 Unknown [id number] 2.16.840.1.945231.3.579.2.1 143 1996 Unknown [id number] 2.16.840.1.097607.3.579.2.1 [facility] 1996 Unknown [id number] 2.16.840.1.261273.3.579.2.1 143 1996 Unknown [id number] 2.16.840.1.639277.3.579.2.1 [facility] 1996 Unknown [id number] 2.16.840.1.482154.3.579.2.1 286 1996 Unknown [id number] 2.16.840.1.267986.3.579.2.1 286 1996 Unknown [id number] 2.16.840.1.016182.3.579.2.1 286 1996 Unknown [id number] 2.16.840.1.222222.3.579.2.1 286 1996 Unknown [id number] 2.16.840.1.348816.3.579.2.1 286 1996 Unknown [id number] 2.16.840.1.625350.3.579.2.1 259 1996 Unknown [id number] 2.16.840.1.554353.3.579.2.1 259 1996 Unknown [id number] 2.16.840.1.847733.3.579.2.1 259 1996 Unknown [id number] 2.16.840.1.171407.3.579.2.1 259 1996 Unknown [id number] 2.16.840.1.686524.3.579.2.1 259 1996 Unknown [id number] 2.16.840.1.009681.3.579.2.1 259 1996 Unknown [id number] 2.16.840.1.140408.3.579.2.1 259 1996 Unknown [id number] 2.16.840.1.655589.3.579.2.1 259 1996 Unknown [id number] 2.16.840.1.874096.3.579.2.1 259 1996 Unknown [id number] 2.16.840.1.635678.3.579.2.1 259 1996 Unknown [id number] 2.16.840.1.838604.3.579.2.1 259 1996 Unknown [id number] 2.16.840.1.315745.3.579.2.1 259 1996 Unknown [id number] 2.16.840.1.695331.3.579.2.1 259 1959 [employer] others) [id number] 1959 [employer] others) [id number] [employer] others) [id number] 2.16.840.1.270460.19 Social History Date Type Detail Facility Start: 11-02-2023 Sex Assigned At [facility] Start: 09-30-2017 End: 11-02-2023 Tobacco smoking status NHIS Never smoked tobacco [facility] Start: 11-02-2023 Tobacco use and exposure Smokeless tobacco non-user [facility] Start: 11-02-2023 Alcoholic beverage intake Lifetime non-drinker (finding) [facility] Start: 11-02-2023 History of Social function [facility] Start: 1996 Sex assigned at Not on file [facility] Start: 1996 Sex Assigned At Female [facility] Start: 12-10-2023 Tobacco smoking status NHIS Unknown if ever smoked [facility] Start: 12-10-2023 Alcohol intake Alcohol Use Details [facility] Start: 09-04-2023 Sexual Orientation Lesbian, lynch or homosexual [facility] Clinical Notes 06-25-2020 to 11-19-2023 Earle Chen MD - 11/02/2023 2:30 PM EDT Note Date & Type Note Facility 11-19-2023 Evaluation + Plan note Diagnostic Tests PendingT3 Free 11/19/23Thyroid Perox.tpo Ab 11/19/23TgAb+Thyroglobulin,[facility] or [facility] 11/19/23 [facility] 11-02-2023 History of Present illness Narrative GYNECOLOGY CONSULT NOTE REASON FOR VISIT Endometriosis Pelvic pain HISTORY OF PRESENT ILLNESS Ms. Medrano is a 27 y.o. (NSVDx2) who presents for consultation regarding endometriosis, pelvic pain. Records review: Moved back from [place] to [place] (2021) First diagnosed in 2018 Has had [...] She had [facility] who told her she had stage IV endometriosis. She is no longer on the progesterone. Has tried vaginal valium does not help Her 2 previous pregnancies were with a previous partner. She and her are trying for another now. No BA in [place] Partner has not had a SA yet [...] patient today. documented in this encounter [facility] 09-14-2023 Evaluation note Encounter Date Diagnosis [...] educated on the risks and benefits of long-term use. Risk assessment was done. Patient is [...] Pt to call with any worsening symptoms. [facility] Other 12-21-2023 Evaluation note* Encounter Date Diagnosis Assessment Notes Treatment Notes Treatment Clinical Notes Jul, Generalized anxiety disorder (ICD-10 - F41.1) Jul, Endometriosis (ICD-1 0 - N80.9) [facility] Other 12-15-2023 Evaluation note* Encounter Date Diagnosis [...] educated on the risks and benefits of long-term use. Risk assessment was done as well [...] intractable, unspecified migraine type (ICD-10 - G43.909) [facility] Other 11-06-2020 NoteOPERATIVE NOTE OPERATION DATE: 06-25-20 ANESTHETIC:General. MEDICAL CLERK:None. PREOPERATIVE DIAGNOSIS: 1. Dyspareunia. 2. Right and [...] lap, and needle counts were correct x2. [facility] Signed and Approved by: DR WON LESTER . 07/30/2020 13:02:00[facility] note* Clinical Note Date No Information [facility] Work Phone: Discharge summary* Clinical Note Date No Information [facility] Work Phone: [facility] Other [facility] note* Diagnosis Endometriosis- Primary Endometriosis, site unspecified Pelvic pain Unspecified symptom associated with female genital organs Myalgia of pelvic floor Dysmenorrhea Dyspareunia in female Nausea and vomiting, unspecified vomiting type Bladder pain Other symptoms involving urinary system Anxiety Anxiety state, unspecified [facility] Diagnosis Onset Date Resolution Status Depression acute Generalized anxiety disorder acute Obsessive compulsive disorder acute PTSD (post-traumatic stress disorder) acute Depression acute Endometriosis acute Generalized anxiety disorder acute Obsessive compulsive disorder acute PTSD (post-traumatic stress disorder) acute TBI (traumatic brain injury) acute [facility] Work Phone: Evaluation note* Type Assessment Date No Information [facility] Work Phone: History and physical note* Clinical Note Date No Information [facility] Work Phone: History general Narrative - Reported* Type Description Date Medical History Anxiety Medical History Stage 4 Endometriosis Medical History Depression with manic episodes Medical History OCD Medical History PTSD Medical History TBI Surgical History Endometriosis surgery x2 Surgical History [place] teeth Surgical History Injections in cervix [facility] Other History of Present illness Narrative* Encounter Date Complaint History Of Prese nt Illness No Information [facility] Work Phone: Hospital course Narrative No data available for this section [facility] No data available for this section [facility] Date Instruction Additional Infor mation No Information [facility] Work Phone: Progress note No data available for this section [facility] Note Date No Information [facility] Work Phone: Reason for referral (narrative)* Consultation (Routine) - New Request Specialty Diagnoses / Procedures Referred By Contac t Referred To Contact Psychology Diagnoses Pelvic pain Anxiety Earle Chen MD [address] [place] [address] Oksana Luu, PhD [address] [place] [address] Referral ID Status Reason Start Date Expiration Date V isits Requested Visits Authorized [id number] New Request 11/02/2023 11/26/2024 1 1 * Consultation (Routine) - New Request Specialty Diagnoses / Procedures Referred By Contac t Referred To Contact Integrative Medicine Diagnoses Pelvic pain Nausea and vomiting, unspecified vomiting type Earle Chen MD [address] [place] [address] Referral ID Status Reason Start Date Expiration Date V isits Requested Visits Authorized [id number] New Request 11/02/2023 11/26/2024 1 1 * Consultation (Routine) - New Request Specialty Diagnoses / Procedures Referred By Contac t Referred To Contact Gynecology Diagnoses Pelvic pain Myalgia of pelvic floor Bladder pain Earle Chen MD [address] [place] [address] Referral ID Status Reason Start Date Expiration Date V isits Requested Visits Authorized [id number] New Request 11/02/2023 11/26/2024 1 1 * MRI/CAT Scan (Routine) - New Request Specialty Diagnoses / Procedures Referred By Contac t Referred To Contact Diagnoses Endometriosis Pelvic pain Procedures MRI PELVIS WITH AND WITHOUT CONTRAST NE MRI, PELVIS, COMBO Earle Chen MD [address] [place] [address] Referral ID Status Reason Start Date Expiration Date V isits Requested Visits Authorized [id number] New Request 11/02/2023 11/26/2024 1 1 [facility] Reason For Referral No Information [facility] Work Phone: Summary Purpose Family History No [...] Diagnosis 1 Endometriosis (N80.9 ) Referral Organization [facility] Owingo angel Referring Provider First Name Lucila Referring Provider Last Name Steveacher Referring Provider Specialty Nurse Pract itioner Referred Organization [facility] Referred Provider Jena Suresh Referred Address ,[place], [place],[address] Referred Provider Specialty OB - Gynecol ogy [...] intractable, unspecified migraine type (G43.909) Referral Organization [facility] angel Referring Provider First Name Lucila Referring Provider Last Name Steveacher Referring Provider Specialty Nurse Pract itioner Referred Organization [facility] Referred Provider Herbie Arroyo Referred Address [address] [place], [place],[address] Referred Provider Specialty Neurology Referral Priority Routine [...] Diagnosis 1 Endometriosis (N80.9 ) Referral Organization [facility] Mushtaq C angel Referring Provider First Name Lucila Referring Provider Last Name Melquiades Referring Provider Specialty Nurse Pracdain serrano Referred Organization [facility] Referred Address [address] [place], [place],[address] Referred Provider Specialty Endocrinolog y Referral Priority [...] and content) DATE CREATED AUTHOR [facility]/15/2020 [facility] DATE CREATED AUTHOR AUTHOR'S ORGANIZ ATION 11/03/2023 [facility] DATE CREATED AUTHOR AUTHOR'S ORGANIZ ATION 11/20/2023 [facility] DATE CREATED AUTHOR AUTHOR'S ORGANIZ ATION 12/15/2023 [facility] DATE CREATED AUTHOR AUTHOR'S ORGANIZ ATION 04/01/2024 [facility] DATE CREATED AUTHOR AUTHOR'S ORGANIZ ATION 05/19/2024 [facility] EPIC REASON FOR VISIT (unrecogniz ed section and content) Reason Comments Consult Pt diagnosis with En dometriosis in 2018. Patient desire . Specialty Diagnoses / Procedures Referred By Harris t Referred To Contact BEAUTY CONSULTANT Diagnoses Endometriosis Lucila Arnett, TIRE MAN [address] [facility] [place] [address] [facility] [address] [place] [address] Referral ID Status Reason Start Date Expiration Date V isits Requested Visits Authorized [id number] New Request 10/23/2023 11/16/2024 1 1 Care Teams (unrecognized sec tion and content) Team Status: Active Member Role Status Dates Lucila Arnett APRN SYSTEMS INTEGRATION ADVISOR-C Primary Care Provider Active Team Status: Inactive Member Role Status Dates Lucila Arnett APRN SYSTEMS INTEGRATION ADVISOR-C Attending Provider Act vinicius Start: September 14, 2023 End: September 14, 2023 Team Status: Inactive Member Role Status Dates Lucila Arnett APRN SYSTEMS INTEGRATION ADVISOR-C Primary Care Provider, Attending Provider Active Start: October 17, 2023 End: October 17, 2023 Team Status: Inactive Member Role Status Dates Lucila Arnett APRN SYSTEMS INTEGRATION ADVISOR-C Primary Care Provider, Attending Provider Active Start: [...] BE BASED ON THE PRIMARY CLINICAL RECORDS. [employer] provides no warranty or guarantee of the accuracy or completeness of information in this document.
== END 2024-06-05 09:53 | disposition home or self-care (01) ==
LOC: NOMS 09:53
PROVIDERS: PCP Nurse Practitioner Family; Visit Provider Obstetrics & Gynecology
DX: O26.893 Other specified pregnancy related conditions, third trimester (principal); O09.293 Supervision of pregnancy with other poor reproductive or obstetric history, third trimester; O09.893 Supervision of other high risk pregnancies, third trimester; R73.09 Other abnormal glucose; R10.9 Unspecified abdominal pain; R10.2 Pelvic and perineal pain; Z3A.32 32 weeks gestation of pregnancy
CPT/HCPCS: 76816

== ENCOUNTER 2024-06-06 07:34 | Outpatient (OUT) | payer OTHER, SELFPAY ==
--- OUTSIDE RECORDS SUMMARY | 2024-06-06 07:37 | XMS_ITS | CCD ---
Author Organization [facility] Inform ion [facility] Care Team Providers Care Msw Name Role Phone TREVON, DR UPTON Admitting Unavailable MISC, DR DAVENPORT Primary Care Unavailable NUPUR, DR DARLINE Fitzgerald Consulting Unavailable TREVON, DR UPTON Attending Unavailable TREVON, DR UPTON Consulting Unavailable TREVNO, DR UPTON Consulting Unavailable TREVON, DR UPTON [...] (1 source) traMADol Drug Allergy 0 [facility] Repository (6 sources) traMADol; Translations: [TRAMADOL] Drug Allergy 4 Unknown, Unknown Reaction [facility] (6 sources) Lavender Oil; Translations: [LAVENDER OIL] Drug allergy 4 Unknown [facility] Repository (1 source) lavender (Lavandula angustifolia) Allergy to substance 4 Unknown Reaction [facility] (1 source) GALCANEZUMAB-GN ; Translations: [GALCANEZUMAB-G [facility]] Propensity to adverse reactions to drug (disorder) [...] oral solution (1 source) alpha-Adrenergic Agonist, Uncompetitive M-zfejil-C-aspartate Receptor Antagonist, Sigma-1 Agonist Start: 09-30-2017 take [...] q6hr, # 10 tab(s), Refills(s) 0, Pharmacy: [facility] 1984 Start Date: 09/21/18 Status: Ordered [...] Facility HCG.beta subunit Qnon 2023 hCG Quant [id number] mIU/mL Normal [facility] Comment on above: Order Comment: Pregn [...] Performed By: #### 2 1198-7 #### [facility] ([facility]) LAB [address] [place] [address] HCG.beta subunit Qnon 2023 hCG Quant [id number] mIU/mL Normal [facility] Comment [...] Performed By: #### 2 1198-7 #### [facility] ([facility] LAB [address] [place] [address] HCG.beta subunit Qnon 2023 hCG Quant 77432 mIU/mL Normal [facility] Comment [...] Performed By: #### 2 1198-7 #### [facility] ([facility] LAB [address] [place] [address] HCG.beta subunit Qnon 2023 hCG Quant [id number] mIU/mL Normal [facility] Comment [...] Performed By: #### 2 1198-7 #### [facility] ([facility] LAB [address] [place] [address] HCG.beta subunit Qnon 2023 hCG Quant 2709 mIU/mL Normal [facility] Comment [...] Performed By: #### 2 1198-7 #### [facility] ([facility] LAB [address] [place] [address] HCG.beta subunit Qnon 2023 hCG Quant 776 mIU/mL Normal [facility] Comment [...] Performed By: #### 2 1198-7 #### [facility] ([facility] [address] [place] [address] HCG.beta subunit Qnon 2023 hCG Quant 250 mIU/mL Normal [facility] Comment [...] Performed By: #### 2 1198-7 #### [facility] ([facility] [address] [place] [address] .Thyroglobulin by IMAon Thyroglobulin [Mass/Vol] 5.0 ng/mL Invalid Interpretation Code 1.5-38.5 [facility] Comment on above: Result Comment: Acco [...] by John Vish Immunometric Assay Performed at: [facility] [id number] PhD Johanny Nieto Performed By: #### 2 547721, [id number], [id number], [id number], [id number], [id number], [id number] #### [facility] [address] [place] [address] T3 Freeon 11-20-2023 Free T3 [Mass/Vol] 3.2 pg/mL Invalid Interpretation Code 2.0-4.4 [facility] Comment on above: Result Comment: Perf ormed at: [address] [id number] PhD Johanny Nieto Performed By: #### 2 461520, [id number], 91129104, 2558900, [id number], [id number], [id number] #### [facility] [address] [place] [address] TgAb+Thyroglobulinon 024 Thyroglobulin Ab Qn [IU]/mL Invalid Interpretation Code 0.0-0.9 [facility] Comment on above: Result Comment: Thyr oglobulin Antibody measured by [employer] Methodology It should be noted that the presence of thyroglobulin antibodies may not be pathogenic nor diagnostic, especially at very low levels. The assay heel turner has found that four percent of individuals without evidence of thyroid disease or autoimmunity will have positive TgAb levels up to 4 IU/mL. Performed at: [address] [id number] PhD Johanny Nieto Performed By: #### 2 222139, [id number], 03541430, 8001756, [id number], [id number], [id number] #### [facility] [address] [place] [address] Thyroid Perox.tpo Abon 11-19 TPO Ab Qn [IU]/mL Invalid Interpretation Code 0-34 [facility] Comment on above: Result Comment: Perf ormed at: [address] [id number] PhD Johanny Nieto Performed By: #### 2 786089, [id number], 79786471, 3618406, [id number], [id number], [id number] #### [facility] [address] [place] [address] BhG Quanton 11-19-2023 HCG.beta subunit Qn 86 m[IU]/mL High 1-3 Fish er [facility] Comment on above: Result Comment: 'F N ON < 1 - 3' ' 0.2 - 1 WEEK = 5 TO 50' ' 1 - 2 WEEKS = 50 - 500' ' 2 - 3 WEEKS = 100 - 5000' ' 3 - 4 WEEKS = 500 - 66626' ' 4 - 5 WEEKS = 1000 - 68450' ' 5 - 6 WEEKS = 03896 - 466923' ' 6 - 8 WEEKS = 24047 - 565359' ' 8 - 12 WEEKS = 97224 - 149396' Performed By: #### 2 [id number] #### [facility] [address] [place] [address] CHEMISTRYOrdered By: SYSTEM SYSTEM on 11-19-2023 HCG.beta [...] 3 - 4 WEEKS = 500 - 34075' ' 4 - 5 WEEKS = 1000 - 11523' ' 5 - 6 WEEKS = 01275 - 979120' ' 6 - 8 WEEKS = 89303 - 846760' ' 8 - 12 WEEKS = 85866 - 797163' Iron [Mass/Vol] 161 ug/dL High 35 - 153 mcg/dL Remisol Chem Iron binding capacity [Mass/Vol] 316 ug/dL Normal 250 - 400 mcg/dL Remisol Chem Transferrin [Mass/Vol] 226 mg/dL Normal 200 - 370 mg/dL Remisol Chem TSH Qn 1.53 m[IU]/L Normal 0.34 - 5.60 mcIU/mL Remisol Chem Consent for Treatmenton 0 Consent for Treatment [id number] .00TIFF Normal [facility] Ironon 11-19-2023 Iron [Mass/Vol] 161 microgram/dL High 35-153 Fis [facility] Comment on above: Performed By: #### 2 954250, 63092441, 74572796, 1817801, 405708419, 102114862, [id number] #### [facility] [address] [place] [address] Physician Orderon 11-19-2023 Physician Order [id number] .00TIFF Normal [facility] TIBC Calculatedon 11-19-2023 Iron binding capacity [Mass/Vol] 316 microgram/dL Normal 250-400 [facility] Comment on above: Performed By: #### 2 917751, 08604699, 22990589, 0394525, 478210267, 263778834, 89120010 #### [facility] [address] [place] [address] Transferrin [Mass/Vol] 226 mg/dL Normal 200-370 [facility] Comment on above: Performed By: #### 2 230193, 38718473, 55936112, 4238036, 615335987, 283245437, 54551632 #### [facility] [address] [place] [address] TSH With T4fr Reflexon 11-18 TSH Qn 1.53 m[IU]/L Normal 0.34-5.60 [facility] Comment on above: Performed By: #### 2 183177, 50183794, 75812367, 5774235, 651421241, 557126448, [id number] #### [facility] [address] [place] [address] TSHon 07-12-2020 TSH 0.756 uIU/mL Normal 0.470-4.680 [facility] Comment on above: Performed By: #### T #### [facility] [address] [place], [place] [address] Jayne Noris TSH RANGE SEE BELOW Normal [facility] Comment on above: Result Comment: <0.3 4 UIU/ml HYPERTHYROID 0.34-5.60 UIU/ml EUTHYROID >5.60 UIU/ml HYPOTHYROID Performed By: #### T SH #### [facility] [address] [place] [address] Jayne Noris CBC AUTO DIFFon 06-25-2020 BASO # 0.1 103/ul Normal 0.0-0.1 [facility] Comment on above: Performed By: #### C BC #### [facility] [address] [place] [address] Jayne Noris Basophils/100 WBC (Bld) 1.2 % Normal 0.2-2.0 [facility] Comment on above: Performed By: #### C BC #### [facility] [address] [place] [address] Jayne Noris EO # 0.2 103/ul Normal 0.0-0.7 [facility] Comment on above: Performed By: #### C BC #### [facility] [address] [place], [place] [address] Jayne Noris Eosinophils/100 WBC (Bld) 2.6 % Normal 0.9-7.0 [facility] Comment on above: Performed By: #### C BC #### [facility] [address] [place] [address] Jayne Noris Erythrocyte distribution width (RBC) [Ratio] 12.0 % Normal 11.0-15.0 [facility] Comment on above: Performed By: #### C BC #### [facility] [address] [place] [address] Jayne Noris Hematocrit (Bld) [Volume fraction] 40.7 % Normal 36.0-48.0 [facility] Comment on above: Performed By: #### C BC #### [facility] [address] [place], [place] [address] Jayne Noris Hemoglobin (Bld) [Mass/Vol] 13.6 g/dL Normal 12.0-16.0 [facility] Comment on above: Performed By: #### C BC #### [facility] [address] [place] [address] Jayne Noris IG # 0.01 10e3/ul Normal 0.00-0.03 [facility] Comment on above: Performed By: #### C BC #### [facility] [address] [place] [address] Jayne Noris IG % 0.2 % Normal 0.0-0.5 [facility] Comment on above: Performed By: #### C BC #### [facility] [address] [place] [address] Jayne Noris LYMPH # 1.9 103/ul Normal 1.2-3.8 [facility] Comment on above: Performed By: #### C BC #### [facility] [address] [place] [address] Jayne Noris Lymphocytes/100 WBC (Bld) 32.5 % Normal 20.5-60.0 [facility] Comment on above: Performed By: #### C BC #### [facility] [address] [place] [address] Jayne Noris MANUAL DIFF REQ NO [facility] Comment on above: Performed By: #### C BC #### [facility] [address] [place] [address] Jayne Noris MCH (RBC) [Entitic mass] 31.3 pg Normal 26.7-34.0 [facility] Comment on above: Performed By: #### C BC #### [facility] [address] [place] [address] Jayne Noris MCHC (RBC) [Mass/Vol] 33.4 g/dL Normal 29.9-35.2 [facility] Comment on above: Performed By: #### C BC #### [facility] [address] [place] [address] Jayne Noris MCV (RBC) [Entitic vol] 93.6 fL Normal 81.0-99.0 [facility] Comment on above: Performed By: #### C BC #### [facility] [address] [place] [address] Jayne Hamm MONO # 0.6 103/ul Normal 0.3-0.8 [facility] Comment on above: Performed By: #### C BC #### [facility] [address] [place] [address] Jayne Hamm Monocytes/100 WBC (Bld) 10.4 % Normal 1.7-12.0 [facility] Comment on above: Performed By: #### C BC #### [facility] [address] [place] [address] Jaynejeremías Cruzen NEUT # 3.1 103/ul Normal 1.4-6.5 [facility] Comment on above: Performed By: #### C BC #### [facility] [address] [place] [address] Jayne Hamm Neutrophils/100 WBC (Bld) 53.1 % Normal 43.0-75.0 [facility] Comment on above: Performed By: #### C BC #### [facility] [address] [place] [address] Jayne Hamm Platelet mean volume (Bld) [Entitic vol] 8.9 fL Critically low 9.5-13.5 [facility] Comment on above: Performed By: #### C BC #### [facility] [address] [place] [address] Jaynejeremías Cruzen PLT 265 103/ul Normal 150-450 [facility] Comment on above: Performed By: #### C BC #### [facility] [address] [place] [address] Jaynejeremías Cruzen RBC 4.35 106/ul Normal 4.20-5.40 [facility] Comment on above: Performed By: #### C BC #### [facility] [address] [place], [place] [address] Jayne Noris WBC 5.8 103/ul Normal 4.0-11.0 [facility] Comment on above: Performed By: #### C BC #### [facility] [address] [place] [address] Jaynejeremías Cruzen PREG QUANT HCGon 06-25-2020 HCG QUANT 1.00 mIU/mL Normal [facility] Comment on above: Performed By: #### P REGQNT #### [facility] [address] [id number] Jayne Hamm HCG RANGE SEE BELOW [facility] Comment on above: Result Comment: 5-50 0-1 WEEK 40-300 1-2 WEEKS 100-1,000 2-3 WEEKS 500-6,000 3-4 WEEKS 5,000-200,000 1-2 MONTHS 10,000-100,000 2-3 MONTHS 3,000-50,000 2ND TRIMESTER 1,000-50,000 3RD TRIMESTER Performed By: #### P REGQNT #### [facility] [address] [id number] Jayne Hamm PAP ACOG PANEL 2: 21 to 29on 05-06-2020 . . Normal [facility] Comment on above: Performed By: #### 4 [id number] #### [facility] [address] [address] Jayne Hamm Age Gdln ACOG Testing - [facility] Comment on above: Performed By: #### 4 [id number] #### [facility] [address] [address] Jayne Hamm DIAGNOSIS: Comment Normal [facility] Comment on above: Result Comment: NEGA TIVE FOR INTRAEPITHELIAL LESION OR MALIGNANCY. Performed By: #### 4 [id number] #### [facility] [address] [address] Jayne Hamm Methodology: Comment Normal [facility] Comment on above: Result Comment: This liquid based SurePath(R) pap test was screened with the assistance of an image guided system. Performed By: #### 4 [id number] #### [facility] [address] [address] Jayne Hamm Note: Comment Normal [facility] Comment on above: Result Comment: The Pap smear is a screening test designed to aid in the detection of premalignant and malignant conditions of the uterine cervix. It is not a diagnostic procedure and should not be used as the sole means of detecting cervical cancer. Both false-positive and false-negative reports do occur. . Performed By: #### 4 [id number] #### [facility] [address] [place] [address] Jayne Hamm Performed by: Comment Normal [facility] Comment on above: Result Comment: Suman Rdz, Rn Post Partum (ASCP) Performed By: #### 4 [id number] #### [facility] [address] [place] [address] Jayne Hamm Reflex Criteria: Comment Normal [facility] Comment on above: Result Comment: The HPV DNA reflex criteria were not met with this specimen result therefore, no HPV testing was performed. . Performed By: #### 4 [id number] #### [facility] [address] [place] [address] Jayne Noris Specimen adequacy: Comment Normal [facility] Comment on above: Result Comment: Sati sfactory for evaluation. Endocervical and/or squamous metaplastic cells (endocervical component) are present. Performed By: #### 4 [id number] #### [facility] [address] [place] [address] Jayne Hamm US PELVIS AND TRANSVAGon US [...] by: DARLINE ESPITIA Date: 2020-04-30 14:54 Normal [facility] Vital Signs Date Time Vital Sign Value Performing Clinician Facility 12-10-2023 09:18-0400 Diastolic blood pressure 84 mm[Hg] Hill Jacobsen Work Phone: [facility] 12-10-2023 09:18-0400 Heart rate 101 /min Hill Jacobsen Work Phone: [facility] 12-10-2023 09:18-0400 Respiratory rate 12 /min Hill Jacobsen Work Phone: [facility] 12-10-2023 09:18-0400 Systolic blood pressure 132 mm[Hg] Hill Jacobsen Work Phone: [facility] 11-02-2023 14:27-0400 Body height 180.3 cm Earle Chen MD Work Phone: [facility] 11-02-2023 14:27-0400 Body mass index (BMI) [Ratio] 20.04 kg/m2 Earle Chen MD Work Phone: [facility] 11-02-2023 14:27-0400 Body weight 65.18 kg Earle Chen MD Work Phone: [facility] 11-02-2023 14:27-0400 Diastolic blood pressure 80 mm[Hg] Earle Chen MD Work Phone: [facility] 11-02-2023 14:27-0400 Systolic blood pressure 110 mm[Hg] Earle Chen MD Work Phone: [facility] 09-14-2023 11:30-0500 Body height 180.34 cm Lucila Arnett Other [facility] 09-14-2023 11:30-0500 Body mass index (BMI) [Ratio] 20.92 kg/m2 Lucila Arnett Other [facility] Other 09-14-2023 11:30-0500 Body weight 68.04 kg Lucila Arnett Other [facility] Other 09-14-2023 11:30-0500 Body weight 68.[address] [facility] 09-14-2023 11:30-0500 Diastolic blood pressure 68 mm[Hg] Lucila Melquiades Other [facility] 09-14-2023 11:30-0500 Respiratory rate 16 /min Lucila Vidyar Other [facility] Other 09-14-2023 11:30-0500 SaO2% (BldA) [Mass fraction] 100 % Lucila Steveacher Other [facility] Other 09-14-2023 11:30-0500 Systolic blood pressure 110 mm[Hg] Lucila Steveacher Other [facility] 08-03-2023 10:00-0500 Body height 180.34 cm Lucila Arnett Other [facility] Other 08-03-2023 10:00-0500 Body mass index (BMI) [Ratio] 20.78 kg/m2 Lucila Vidyar Other [facility] Other 08-03-2023 10:00-0500 Body weight 67.59 kg Lucila Dasilvar Other [facility] Other 08-03-2023 10:00-0500 Diastolic blood pressure 66 mm[Hg] Lucila Wilsonacher Other [facility] Other 08-03-2023 10:00-0500 SaO2% (BldA) [Mass fraction] 98 % Lucila Arnett Other [facility] Other 08-03-2023 10:00-0500 Systolic blood pressure 100 mm[Hg] Lucila Sanabriaelíasleanne Other [facility] Other Encounters Encounter Date Encounter Type Care Provider Facility Start: 05-19-2024 End: 05-19-2024 ambulatory WON TREVON Not Available Start: 05-08-2024 End: 05-08-2024 ambulatory WON TREVON Not Available Start: 04-24-2024 End: 04-24-2024 ambulatory WON TREVON Not Available Start: 04-10-2024 End: 04-10-2024 ambulatory WON TREVON Not Available Start: 03-31-2024 End: 03-31-2024 ambulatory WON R [facility] Start: 03-27-2024 End: 03-27-2024 ambulatory WON TREVON Not Available Start: 03-25-2024 End: 03-25-2024 ambulatory WON R [facility] Start: 03-13-2024 End: 03-13-2024 ambulatory PEDRO TABOR Not Available Start: 02-28-2024 End: 02-28-2024 ambulatory WON TREVON Not Available Start: 02-25-2024 End: 02-25-2024 ambulatory WON [facility] Start: 02-13-2024 End: 02-13-2024 ambulatory WON TREVON Not Available Start: 01-30-2024 End: 01-30-2024 ambulatory WON TREVON Not Available Start: 01-21-2024 End: 01-21-2024 ambulatory WON R [facility] Start: 01-17-2024 End: 01-17-2024 ambulatory WON TREVON Not Available Start: 01-03-2024 End: 01-03-2024 ambulatory WON TREVON Not Available Start: 12-26-2023 End: 12-26-2023 ambulatory WON TREVON Not Available Start: 12-13-2023 End: 12-13-2023 ambulatory WON TREVON Not Available Start: 12-10-2023 End: 12-11-2023 ambulatory HAKEEM YODER [facility] Start: 12-10-2023 End: 12-10-2023 Encounter identifier Hill Sánchez Ann-Marie Work Phone: [facility] [place] Start: 12-06-2023 End: 12-07-2023 ambulatory HAKEEM YODER [facility] Start: 12-03-2023 End: 12-04-2023 ambulatory HAKEEM YODER [facility] Start: 11-29-2023 End: 11-30-2023 ambulatory HAKEEM YODER [facility] Start: 11-26-2023 End: 11-27-2023 ambulatory HAKEEM YODER [facility] Start: 11-23-2023 End: 11-24-2023 ambulatory HAKEEM YODER [facility] Start: 11-21-2023 End: 11-22-2023 ambulatory HAKEEM YODER [facility] Start: 11-19-2023 End: 11-20-2023 ambulatory [employer] LUCILA ARNETT Facility:[facility] Start: 11-19-2023 End: 11-19-2023 Patient encounter procedure LUCILA ARNETT [facility] Start: 11-14-2023 End: 11-14-2023 ambulatory [facility] Work Phone: Start: 11-14-2023 End: 11-14-2023 Patient encounter procedure [facility] Work Phone: Start: 11-02-2023 ambulatory EARLE CHEN Facility:[facility] Start: 11-02-2023 End: 11-02-2023 Office outpatient new 60 minutes Earle Chen MD Work Phone: [facility] [place] Comment on above: Endometriosis (Prima ry Dx); Pelvic pain; Myalgia of pelvic floor; Dysmenorrhea; Dyspareunia in female; Nausea and vomiting, unspecified vomiting type; Bladder pain; Anxiety Start: 10-17-2023 End: 10-17-2023 Patient encounter procedure [facility] Work Phone: Start: 09-14-2023 End: 09-14-2023 ambulatory Lucila Arnett Other [facility] Other Start: 09-14-2023 Office outpatient vi sit 25 minutes Lucila Arnett [facility] Start: 09-14-2023 End: 09-14-2023 Patient encounter procedure [facility] Start: 08-09-2023 End: 08-09-2023 ambulatory Lucila Arnett Other [facility] Other Start: 08-09-2023 Telephone encounter Lucila Dan her [facility] Start: 08-03-2023 End: 08-03-2023 ambulatory Lucila Arnett Other [facility] Other Start: 08-03-2023 Office outpatient ne w 30 minutes Lucila Arnett [facility] Start: 08-03-2023 Telephone encounter Lucila Dan her [employer] Start: 07-12-2020 End: 07-13-[address] WON [...] Endometriosis Pelvic pain Expected: 11/02/2023, Expires: 11/01/2024 [facility] Comment on above: Expected: 11/02/2023 , Expires: 11/01/2024 Start: 10-17-2023 Patient referral [facility] [place] Work Phone: Start: 04-20-2023 COVID-19 VACCINE ( season) COVID-19 VACCINE ( season) [facility] Start: 04-20-2023 Influenza vaccination INFLUENZA VACC INE (#1) [facility] Start: 2017 Screening for malign ant neoplasm of cervix CERVICAL CANCER SCREENING DISCUSSION [facility] Start: 11-08-2015 Hepatitis B vaccination HEP B VACCINE (1 of 3 - 19+ 3-dose series) [facility] Start: 11-08-2015 Third diphtheria, te tanus and acellular pertussis (DTaP) vaccination TDAP (ADULT) [facility] Start: 2012 Screening for Chlamy david trachomatis CHLAMYDIA SCREEN [facility] Start: 11-08-2011 HIV screening HIV SCREENING DISCUSSION [facility] Start: 11-08-2011 Vaccination for kale n papillomavirus HPV VACCINE ADOL (1 - 3-dose series) [facility] Start: 1996 Hepatitis C screening HEPATITI S C VIRUS SCREENING [facility] Start: 1996 Screening for Chlamy david trachomatis GONORRHEA SCREEN [facility] Start: 1996 Tetanus vaccination TETANUS [facility] Patient referral [facility] Work Phone: Payers Date Payer Category Payer Medicaid [id number] 2023 [employer] ( [employer] others) [id number] 2023 [employer] ( and others) [facility] [id number] 2023-Present [address] [place] [address] [id number] 2023 [employer] ( and others) [id number] 1996 Unknown [id number] 2.16.840.1.466703.3.579.2.5 93 1996 Unknown [id number] 2.16.840.1.371832.3.579.2.5 93 1996 Unknown [id number] 2.16.840.1.678978.3.579.2.5 93 1996 Unknown [id number] 2.16.840.1.948900.3.579.2.5 93 1996 Unknown [id number] 2.16.840.1.610882.3.579.2.5 93 1996 Unknown [id number] 2.16.840.1.989155.3.579.2.5 94 1996 Unknown [id number] 2.16.840.1.550867.3.579.2.7 27 1996 Unknown [id number] 2.16.840.1.062394.3.579.2.1 143 1996 Unknown [id number] 2.16.840.1.063871.3.579.2.1 [facility] 1996 Unknown [id number] 2.16.840.1.355288.3.579.2.1 143 1996 Unknown [id number] 2.16.840.1.048920.3.579.2.1 [facility] 1996 Unknown [id number] 2.16.840.1.158607.3.579.2.1 143 1996 Unknown [id number] 2.16.840.1.516851.3.579.2.1 [facility] 1996 Unknown [id number] 2.16.840.1.455500.3.579.2.1 143 1996 Unknown [id number] 2.16.840.1.513928.3.579.2.1 [facility] 1996 Unknown [id number] 2.16.840.1.280915.3.579.2.1 286 1996 Unknown [id number] 2.16.840.1.620958.3.579.2.1 286 1996 Unknown [id number] 2.16.840.1.492883.3.579.2.1 286 1995 Unknown [id number] 2.16.840.1.216644.3.579.2.1 286 1995 Unknown [id number] 2.16.840.1.939083.3.579.2.1 286 1996 Unknown [id number] 2.16.840.1.811484.3.579.2.1 259 1996 Unknown [id number] 2.16.840.1.357119.3.579.2.1 259 1996 Unknown [id number] 2.16.840.1.926750.3.579.2.1 259 1996 Unknown [id number] 2.16.840.1.998816.3.579.2.1 259 1996 Unknown [id number] 2.16.840.1.320883.3.579.2.1 259 1996 Unknown [id number] 2.16.840.1.282595.3.579.2.1 259 1996 Unknown [id number] 2.16.840.1.374267.3.579.2.1 259 1996 Unknown [id number] 2.16.840.1.412648.3.579.2.1 259 1996 Unknown [id number] 2.16.840.1.254397.3.579.2.1 259 1996 Unknown [id number] 2.16.840.1.799859.3.579.2.1 259 1996 Unknown [id number] 2.16.840.1.757248.3.579.2.1 259 1996 Unknown [id number] 2.16.840.1.974427.3.579.2.1 259 1996 Unknown [id number] 2.16.840.1.693343.3.579.2.1 259 1959 [employer] others) [id number] 1959 [employer] [id number] [employer] others) [id number] 2.16.840.1.148679.19 Social History Date Type Detail Facility Start: 11-02-2023 Sex Assigned At [facility] [place] Start: 09-30-2017 End: 11-02-2023 Tobacco smoking status NHIS Never smoked tobacco [facility] Start: 11-02-2023 Tobacco use and exposure Smokeless tobacco non-user [facility] Start: 11-02-2023 Alcoholic beverage intake Lifetime non-drinker (finding) [facility] Start: 11-02-2023 History of Social function [facility] Start: 1995 Sex assigned at Not on file [facility] Start: 1995 Sex [facility] Start: 12-10-2023 Tobacco smoking status NHIS Unknown if ever smoked [facility] Start: 12-10-2023 Alcohol intake Alcohol Use Details [facility] Start: 09-04-2023 Sexual Orientation Lesbian, lynch or homosexual [facility] Clinical Notes 06-25-2020 to 11-19-2023 Earle Chen MD - 11/02/2023 2:30 PM EDT Note Date & Type Note Facility 11-19-2023 Evaluation + Plan note Diagnostic Tests PendingT3 Free 11/19/23Thyroid Perox.tpo Ab 11/19/23TgAb+Thyroglobulin,CHING or ARLEN 11/19/23 [facility] 11-02-2023 History of Present illness Narrative GYNECOLOGY CONSULT NOTE REASON FOR VISIT Endometriosis Pelvic pain HISTORY OF PRESENT ILLNESS Ms. Medrano is a 27 y.o. (NSVDx2) who presents for consultation regarding endometriosis, pelvic pain. Records review: Moved back from [place] to [place] (2021) First diagnosed in 2018 Has had [...] a women's health doctor in [facility] who told her she had stage IV endometriosis. She is no longer on the progesterone. Has tried vaginal valium does not help Her 2 previous pregnancies were with a previous partner. She and her are trying for another now. No BA in [place] Partner has not had a SA yet [...] patient today. documented in this encounter [facility] 09-14-2023 Evaluation note Encounter Date Diagnosis Assessment [...] educated on the risks and benefits of mcfp use. Risk assessment was done. Patient is [...] Pt to call with any worsening symptoms. [facility] Other 12-21-2023 Evaluation note* Encounter Date Diagnosis Assessment Notes Treatment Notes Treatment Clinical Notes Jul, Generalized anxiety disorder (ICD-10 - F41.1) Jul, Endometriosis (ICD-1 0 - N80.9) [facility] Other 12-15-2023 Evaluation note* Encounter Date Diagnosis [...] educated on the risks and benefits of mcfp use. Risk assessment was done as well [...] intractable, unspecified migraine type (ICD-10 - G43.909) [facility] Other 11-06-2020 NoteOPERATIVE NOTE OPERATION DATE: 06-25-20 ANESTHETIC:General. CATALYST RECOVERY OPERATOR:None. PREOPERATIVE DIAGNOSIS: 1. Dyspareunia. 2. Right and [...] Approved by: DR WON LESTER . 07/30/2020 13:02:00[facility] note* Clinical Note Date No Information [facility] Work Phone: Discharge summary* Clinical Note Date No Information [facility] Work Phone: [facility] [employer] [facility] Other Evaluation note* Diagnosis Endometriosis- Primary Endometriosis, site unspecified Pelvic pain Unspecified symptom associated with female genital organs Myalgia of pelvic floor Dysmenorrhea Dyspareunia in female Nausea and vomiting, unspecified vomiting type Bladder pain Other symptoms involving urinary system Anxiety Anxiety state, unspecified documented in this encounter [facility] Diagnosis Onset Date Resolution Status Depression acute Generalized anxiety disorder acute Obsessive compulsive disorder acute PTSD (post-traumatic stress disorder) acute Depression acute Endometriosis acute Generalized anxiety disorder acute Obsessive compulsive disorder acute PTSD (post-traumatic stress disorder) acute TBI (traumatic brain injury) acute [facility] Work Phone: Evaluation note* Type Assessment Date No Information [facility] Work Phone: History and physical note* Clinical Note Date No Information [facility] Work Phone: History general Narrative - Reported* Type Description Date Medical History Anxiety Medical History Stage 4 Endometriosis Medical History Depression with manic episodes Medical History OCD Medical History PTSD Medical History TBI Surgical History Endometriosis surgery x2 Surgical History [place] teeth Surgical History Injections in cervix [facility] Other History of Present illness Narrative* Encounter Date Complaint History Of Prese nt Illness No Information [facility] Work Phone: Hospital course Narrative No data available for this section [facility] No data available for this section [facility] Date Instruction Additional Infor mation No Information [facility] Work Phone: Progress note No data available for this section [facility] Clinical Note Date No Information [facility] Work Phone: Reason for referral (narrative)* Consultation (Routine) - New Request Specialty Diagnoses / Procedures Referred By Contac t Referred To Contact Psychology Diagnoses Pelvic pain Anxiety Earle Chen MD [address] [place] [address] Oksana Luu, PhD [address] [place] [address] Referral ID Status Reason Start Date Expiration Date V isits Requested Visits Authorized [id number] New Request 11/02/2023 11/26/2024 1 1 * Consultation (Routine) - New Request Specialty Diagnoses / Procedures Referred By Contac t Referred To Contact Integrative Medicine Diagnoses Pelvic pain Nausea and vomiting, unspecified vomiting type Earle Chen MD [address] [place] [address] Referral ID Status Reason Start Date Expiration Date V isits Requested Visits Authorized [id number] New Request 11/02/2023 11/26/2024 1 1 * Consultation (Routine) - New Request Specialty Diagnoses / Procedures Referred By Contac t Referred To Contact Gynecology Diagnoses Pelvic pain Myalgia of pelvic floor Bladder pain Earle Chen MD [address] [place] [address] Referral ID Status Reason Start Date Expiration Date V isits Requested Visits Authorized [id number] New Request 11/02/2023 11/26/2024 1 1 * MRI/CAT Scan (Routine) - New Request Specialty Diagnoses / Procedures Referred By Contac t Referred To Contact Diagnoses Endometriosis Pelvic pain Procedures MRI PELVIS WITH AND WITHOUT CONTRAST CO MRI, PELVIS, COMBO Earle Chen MD [address] [place] [address] Referral ID Status Reason Start Date Expiration Date V isits Requested Visits Authorized [id number] New Request 11/02/2023 11/26/2024 1 1 [facility] Reason For Referral No Information [facility] Work Phone: Summary Purpose Family History No [...] ) Referral Organization [facility] [employer] Referring Provider First Name Lucila Referring Provider Last Name Steveacher Referring Provider Specialty Nurse Pract itioner Referred Organization [facility] Referred Provider Jena Suresh Referred Address ,[place], [place],[address] Referred Provider Specialty OB - Gynecol ogy [...] (G43.909) Referral Organization [facility] [employer] Referring Provider First Name Lucila Referring Provider Last Name Steveacher Referring Provider Specialty Nurse Pract itioner Referred Organization [facility] Referred Provider Herbie Arroyo Referred Address [address] [place], [place],[address] Referred Provider Specialty Neurology Referral Priority Routine [...] Diagnosis 1 Endometriosis (N80.9 ) Referral Organization [facility] [employer] angel Referring Provider First Name Lucila Referring Provider Last Name Melquiades Referring Provider Specialty Nurse Pracdain serrano Referred Organization [facility] Referred Address [address] [place], [place],[address] Referred Provider Specialty Endocrinolog y Referral Priority [...] and content) DATE CREATED AUTHOR 12/15/2020 [facility] DATE CREATED AUTHOR AUTHOR'S ORGANIZ ATION 11/03/2023 [facility] DATE CREATED AUTHOR AUTHOR'S ORGANIZ ATION 11/20/2023 [facility] DATE CREATED AUTHOR AUTHOR'S ORGANIZ ATION 12/15/2023 [facility] DATE CREATED AUTHOR AUTHOR'S ORGANIZ ATION 04/01/2024 [facility] DATE CREATED AUTHOR AUTHOR'S ORGANIZ ATION 05/19/2024 [facility] Specialists EPIC REASON FOR VISIT (unrecogniz ed section and content) Reason Comments Consult Pt diagnosis with En dometriosis in 2018. Patient desire . Specialty Diagnoses / Procedures Referred By Harris t Referred To Contact TONG CARRIER Diagnoses Endometriosis Lucila Arnett, HEALTH SCIENCES DEPARTMENT CHAIR [address] [facility] [place] [address] [facility] [address] [place] [address] Referral ID Status Reason Start Date Expiration Date V isits Requested Visits Authorized [id number] New Request 10/23/2023 11/16/2024 1 1 Care Teams (unrecognized sec tion and content) Team Status: Active Member Role Status Dates Lucila Arnett APRN [employer] Primary Care Provider Active Team Status: Inactive Member Role Status Dates Lucila Arnett APRN [employer] Attending Provider Act vinicius Start: September 14, 2023 End: September 14, 2023 Team Status: Inactive Member Role Status Dates Lucila Arnett APRN [employer] Primary Care Provider, Attending Provider Active Start: October 17, 2023 End: October 17, 2023 Team Status: Inactive Member Role Status Dates Lucila Arnett APRN [employer] Primary Care Provider, Attending Provider Active Start: [...] BE BASED ON THE PRIMARY CLINICAL RECORDS. [employer] provides no warranty or guarantee of the accuracy or completeness of information in this document.
--- NOTE | 2024-06-06 11:08 | US_ITS ---
[address] [address] Patient Name: COLTON VERMA MRN: [id number] date: 1995 Sex: F Assigned Patient Location: [facility] Current Patient Location: [facility] Accession/Order Number: [id number] Exam Date: 06/06/2024 11:15 Report Date: 06/06/2024 12:03 At the request of: WON LESTER Procedure: US OB BPP w non-stress EXAMINATION: US OB BPP w non-stress HISTORY: H/O DELIVERY O09.891 COMPARISON: No relevant comparison available. TECHNIQUE: Ultrasound biophysical profile was performed in the radiology department. non-reactive stress testing was performed by nursing staff in the birthing center. FINDINGS: BREATHING MOVEMENTS: 2 GROSS BODY MOVEMENTS: 2 TONE: 2 QUALITATIVE AMNIOTIC FLUID VOLUME: 2 PRESENTATION: CEPHALIC HEART RATE: 144.39 bpm AMNIOTIC FLUID VOLUME: 16.1 cm GESTATIONAL AGE: 32 weeks 6 days US/US OB BPP w non-stress IMPRESSION: Total biophysical profile score: 8 Electronically authenticated by: DARLINE ESPITIA Date: 06/06/2024 12:03
[2024-06-06 11:46] VITALS: BP 103/71; PULSE 103
--- NOTE | 2024-06-06 12:50 | US_ITS ---
[address] [address] Patient Name: COLTON VERMA MRN: [id number] date: 1995 Sex: F Assigned Patient Location: [facility] Current Patient Location: [facility] Accession/Order Number: [id number] Exam Date: 06/06/2024 12:58 Report Date: 06/06/2024 14:47 At the request of: WON LESTER Procedure: US OB cervical length EXAMINATION: US OB cervical length HISTORY: pre-term contractions COMPARISON: No relevant comparison available. FINDINGS: position: Cephalic presentation, longitudinal lie Heart rate: 130 beats minute Cervix: 3.5 cm, closed Clinical age: 32 weeks 6 days Clinical SINA: 07/26/2024 US/US OB cervical length IMPRESSION: Closed cervix measuring 3.5 cm in length Electronically authenticated by: DARLINE ESPITIA Date: 06/06/2024 14:47
[2024-06-06] MEDS: LACTATED RINGER'S SOLUTION 1,000 ML 1000 ML IV (13:40)
[2024-06-06] MEDS: NIFEdipine 10 MG CAPSULE 20 MG PO ×3 (15:20→23:33)
[2024-06-06] MEDS: BETAMETHASONE ACE/BETAMETHASONE SOD PHOS 30 MG/5 ML 12 MG IM (15:20)
[2024-06-06] MEDS: ACETAMINOPHEN 500 MG TABLET 1000 MG PO (17:09)
[2024-06-06] MEDS: LACTATED RINGER'S SOLUTION 1,000 ML 125 ML IV (17:22)
[2024-06-06 18:13] VITALS: BP 111/70; PULSE 68
[2024-06-06 19:30] VITALS: BP 123/71; PULSE 67
[2024-06-06 19:31] VITALS: BP 123/71
[2024-06-06] MEDS: ZOLPIDEM TARTRATE 10 MG TABLET PO (22:15)
[2024-06-06 23:33] VITALS: BP 114/68; PULSE 70
[2024-06-06 23:38] VITALS: TEMP 35.6
[2024-06-07] MEDS: LACTATED RINGER'S SOLUTION 1,000 ML 125 ML IV (00:10)
[2024-06-07 03:30] VITALS: BP 107/61
[2024-06-07] MEDS: NIFEdipine 10 MG CAPSULE 20 MG PO ×2 (03:30→07:52)
[2024-06-07 03:32] VITALS: BP 107/61; PULSE 75
[2024-06-07 07:51] VITALS: BP 128/79; PULSE 108
[2024-06-07] MEDS: ACETAMINOPHEN 500 MG TABLET 1000 MG PO (08:37)
== END 2024-06-07 08:50 | disposition home or self-care (01) ==
LOC: US 07:35 → FBC 11:07
PROVIDERS: PCP Nurse Practitioner Family; Visit Provider Obstetrics & Gynecology
DX: O09.893 Supervision of other high risk pregnancies, third trimester (principal); Z3A.32 32 weeks gestation of pregnancy
CPT/HCPCS: 76817; 76818; 96372; J0702

== ENCOUNTER 2024-06-07 12:07 | Outpatient (RCR) | payer OTHER, SELFPAY ==
[2024-06-07] MEDS: BETAMETHASONE ACE/BETAMETHASONE SOD PHOS 30 MG/5 ML 12 MG IM (16:01)
== END 2024-06-19 23:59 | disposition home or self-care (01) ==
LOC: INF 12:07
PROVIDERS: PCP Nurse Practitioner Family; Visit Provider Obstetrics & Gynecology
DX: O60.00 Preterm labor without delivery, unspecified trimester (principal); Z3A.00 Weeks of gestation of pregnancy not specified
CPT/HCPCS: 96372; J0702

== ENCOUNTER 2024-06-10 07:04 | Outpatient (OUT) | payer OTHER, SELFPAY ==
--- OUTSIDE RECORDS SUMMARY | 2024-06-10 07:07 | XMS_ITS | CCD ---
Author Organization [facility] Care Team Providers Care Gate Operator Name Role Phone MARYBETH, DR UPTON Admitting Unavailable MISC, DR DAVENPORT Primary Care Unavailable NUPUR, DR DARLINE Fitzgerald Consulting Unavailable MARYBETH, DR UPTON Attending Unavailable MARYBETH, DR UPTON Consulting Unavailable MARYBETH, DR UPTON Consulting Unavailable MARYBETH, DR UPTON Admitting Unavailable MARYBETH, DR UPTON Attending Unavailable CHEYENNE MOONEY Consulting Unavailable MARYBETH, DR UPTON Admitting Unavailable MARYBETH, DR UPTON Attending Unavailable MARYBETH, DR UPTON Consulting Unavailable MARYBETH, DR UPTON Admitting Unavailable MARYBETH, DR UPTON Attending Unavailable MARYBETH, DR UPTON Consulting Unavailable MARYBETH, DR UTPON Admitting Unavailable MARYBETH, DR UPTON Attending Unavailable Lucila Arnett Unavailable [phone] Unavailable Primary Care Provider Unavailabl e GIUSEPPEAL, EARLE Attending Unavailable LUCILA ARNETT Referring Unavailable LUCILA ARNETT Primary Care Physician [phone] KHADRA ARNETT Attending Unava ilable KHADRA ARNETT Admitting Unava ilable YODER, HAKEEM Primary Care Unavailable MARYBETH, WON Referring Unavailable YODER, HAKEEM Referring Unavailable YODER, HAKEEM Primary Care Unavailable YODER, HAKEEM Primary Care Unavailable MARYBETH, WON Referring Unavailable YODER, HAKEEM Primary Care Unavailable MARYBETH, WON Referring Unavailable YODER, HAKEEM Primary Care Unavailable MARYBETH, WON Referring Unavailable YODER, HAKEEM Primary Care Unavailable MARYBETH, WON Referring Unavailable YODER, HAKEEM Primary Care Unavailable MARYBETH, WON Referring Unavailable Hill Jacobsen DO Unavailable Unavailable MARYBETH, WON R Referring Unavailable BARI SKELTON Attending Unavailable MARYBETH, WON R Referring Unavailable MARYBETH, WON R Referring Unavailable POLA HORNE Attending Unavailable MARYBETH, WON R Referring Unavailable MARYBETH, WON R Referring Unavailable MARYBETH, WON R Referring Unavailable Melquiades CHANG, Lucila Aponte Primary Care Provider MARYBETH, WON Attending Unavailable MARYBETH, WON Attending Unavailable MARYBETH, WON Attending Unavailable MARYBETH, WON Attending Unavailable MARYBETH, WON Attending Unavailable MARYBETH, WON Attending Unavailable LEANDER, PEDRO Attending Unavailable MARYBETH, WON Attending Unavailable MARYBETH, WON Attending Unavailable MARYBETH, WON Attending Unavailable MARYBETH, WON Attending Unavailable MARYBETH, WON Attending Unavailable MARYBETH, WON Attending Unavailable Allergies Allergy Classification Reported Allergen(s) Allergy Type Date of Onset Reaction(s) Facility Opioid Agonists (1 source) traMADol Drug Allergy 0 [facility] Repository (9 sources) traMADol; Translations: [TRAMADOL] Drug Allergy 4 Unknown [facility] (9 sources) Lavender Oil; Translations: [LAVENDER OIL] Drug allergy 4 Unknown [facility] Repository (1 source) lavender (Lavandula angustifolia) Allergy to substance 4 Unknown Reaction [facility] (4 sources) GALCANEZUMAB-GNL M; Translations: [GALCANEZUMAB-GN LM] Propensity to adverse reactions to drug (disorder) 4 [facility] Repository (3 sources) Galcanezumab Propensity to adverse reactions 4 [facility] Healthcare Work Phone: Medications Current Medications Medication Drug Class(es) Dates [...] amoxicillin 50 0 mg capsule - Active aspirin 81 mg delayed release oral tablet (3 sources) Platelet Aggregation Inhibitor, Nonsteroidal Anti-inflammatory Drug take 1 tablet by mouth once daily aspirin 81 MG EC tablet Take 81 mg by mouth Daily Active Blood Glucose Monitoring Suppl (D-Care Glucometer) w/Device kit (3 sources) Start : 04-24 End: 04-24 Blood Glucose Monitoring Suppl (D-Care Glucometer) w/Device kit Indications: Elevated glucose tolerance test 1 kit Daily Use four times daily to check FSBS. In the morning prior to breakfast & 1 hour after each meal for a total of 4times daily. 1 kit 04/24/2024 04/24/2025 Active brompheniramine maleate 0.4 mg/ml / dextromethorphan hydrobromide 2 mg/ml / pseudoephedrine hydrochloride 6 mg/ml oral solution (1 source) alpha-Adrenergic Agonist, Uncompetitive C-rwwqod-P-aspartate Receptor Antagonist, Sigma-1 Agonist Start : 09-30 take 5 mL by mouth four times daily Bromfed DM oral syrup 5 mL, Oral, QID for cold symptoms, 200 mL, Refill(s) 0 Start Date: 09/30/17 Status: Ordered celecoxib 200 mg oral capsule (1 source) Nonsteroidal Anti-inflammatory Drug Start : 01-09 celecoxib 200 mg capsule - Active 0.5 ml choriogonadotropin martha 0.5 mg/ml prefilled syringe (1 source) Gonadotropin Start : 12-19 Ovidrel 250 mcg/0.5 mL subcutaneous syringe - Active clonazePAM 0.5 mg oral tablet (7 sources) Benzodiazepine Start : 05-08 take 1 tablet by mouth in the morning, then take 2 tablets by mouth twice daily at bedtime Clonazepam Active 0.5 MG PO .COMPLEX October 16, 2023 1:00am 1 tablet in the am and 2 tablets at bedtime Orally twice daily cyclobenzaprine hydrochloride 10 mg oral tablet (4 sources) Muscle Relaxant Start : 04-28 cyclobenzaprine (Flexeril) 10 MG tablet cyclobenzaprine 10 mg tablet - Active 04/28/2023 Active doxepin hydrochloride 10 mg oral capsule (1 source) Tricyclic Antidepressant Start : 11-26 doxepin 10 mg capsule - Active escitalopram 20 mg oral tablet (1 source) Serotonin Reuptake Inhibitor Start : 01-09 escitalopram 20 mg tablet - Active ferrous sulfate (3 sources) take 1 tablet by mouth in the morning Ferrous Sulfate (IRON PO) Take 1 tablet by mouth in the morning. Active ibuprofen 600 mg oral tablet (2 sources) Nonsteroidal Anti-inflammatory Drug Start : 01-27 ibuprofen 600 mg tablet PLEASE SEE ATTACHED FOR DETAILED DIRECTIONS - Active isopropyl alcohol 0.7 ml/ml medicated pad (3 sources) Start : 04-24 Alcohol Swabs (Alcohol Prep Pad) 70 % pads Indications: Elevated glucose tolerance test Apply 1 Pad topically Daily Use four times daily to check FSBS. 150 each 3 04/24/2024 Active magnesium lactate 84 mg extended release oral tablet (3 sources) take 1 tablet by mouth in the morning magnesium lactate CR (Magtab) 84 MG (7MEQ) ER tablet Take 84 mg by mouth in the morning. Active magnesium oxide 400 mg oral tablet (3 sources) Start : 12-18 magnesium oxide (Mag-Ox) 400 (240 Mg) MG tablet 12/19/2023 Active meloxicam 7.5 mg oral tablet (3 sources) Nonsteroidal Anti-inflammatory Drug Start : 10-23 End: 10-25 take 1 tablet by mouth once daily meloxicam 7.5 mg tablet TAKE 1 TABLET BY MOUTH DAILY - Active methocarbamol 750 mg oral tablet (1 source) Muscle Relaxant Start : 01-27 take 1 tablet by mouth every six hours Robaxin-750 oral tablet 750 mg = 1 tab(s), Oral, q6hr, # 12 tab(s), Refills(s) 0 Start Date: 01/27/19 Status: Ordered norethindrone acetate 5 mg oral tablet (1 source) Start : 01-09 norethindrone acetate 5 mg tablet - Active omeprazole 20 mg delayed release oral capsule (3 sources) Proton Pump Inhibitor Start : 12-12 End: 12-12 take 1 capsule by mouth before mealtime omeprazole (PriLOSEC) [address] capsule Indications: Heartburn during in first trimester Take 1 capsule (20 mg) by mouth in the morning. Take before meals. Do not crush or chew.. 30 capsule 11 12/13/2023 12/12/2024 Active ondansetron 4 mg disintegrating oral tablet (5 sources) Serotonin-3 Receptor Antagonist Start : 11-29 ondansetron ODT (Zofran-ODT) 4 MG disintegrating tablet ondansetron 4 mg disintegrating tablet - Active 11/30/2023 Active Start: 11-02-2023 take 1 tablet by bailey th every eight hours as needed Ondansetron 4 MG Tab Dispersible tablet Take 1 tablet by mouth every 8 hours as needed for Nausea / Vomiting. 18 tablet 1 11/02/2023 Active polysaccharide iron complex 391 mg oral capsule (3 sources) Start: 05-05-2024 End: 05-05-2025 take 1 capsule by mouth once daily iron polysaccharides (ProFe) 391.3 (180 Fe) MG capsule Indications: Low iron Take 1 capsule (391.3 mg) by mouth Daily 30 capsule 6 05/05/2024 05/05/2025 Active Azupcwec-Lmw-Lo-FA ( 1 + IRON PO) (3 sources) Fshovrjc-Kfe-Ku-FA ( 1 + IRON PO) Take by mouth Daily Active tiZANidine 2 mg oral tablet (8 [...] q6hr, # 10 tab(s), Refills(s) 0, Pharmacy: [facility] Start Date: 09/21/18 Status: Ordered zolpidem tartrate 10 mg oral tablet (3 sources) gamma-Aminobutyr ic Acid-ergic Agonist Start: 05-19-2024 zolpidem (Ambien) 10 MG tablet Indications: Other insomnia Take 1 tablet (10 mg) by mouth as needed at bedtime for sleep (insomnia) for up to 5 doses 5 tablet 05/19/2024 Active Completed/Discontinued Medications Medication Drug Class(es) Dates Sig [...] Problem Date Documented Date Episodic/Chronic Abdominal pain (12 sources) Pelvic and perineal pain; Translations: [Pain [...] genitourinary system] 11-02-2023 Episodic Headache; including migraine (9 sources) Migraine; Translations: [Migraine, unspecified, not intractable, [...] history, first trimester] Onset: 01-21-2024 Episodic Other complications of (5 sources) High risk ; Translations: [Supervision of other high risk pregnancies, first trimester] Onset: 01-03-2024 01-03-2024 Episodic Other complications of (3 sources) Supervision of with other poor reproductive or obstetric history, third trimester; Translations: [ with other poor obstetric history] Onset: 04-10-2024 04-10-2024 Episodic Other connective tissue disease (1 source) Myalgia of pelvic floor; Translations: [Myalgia, other site] 11-02-2023 Episodic Other connective tissue disease (2 sources) Pain in bilateral legs; Translations: [Pain in right leg] 06-05-2024 Episodic Other female genital disorders (4 sources) Unspecified dyspareunia; Translations: [UNSPECIFIED DYSPAREUNIA] Onset: 06-25-2020 Chronic Other female genital disorders (1 source) Pain in female genitalia on intercourse; Translations: [Unspecified dyspareunia] 11-02-2023 Chronic Other and delivery including normal (8 sources) First trimester ; Translations: [Encounter for supervision of normal , unspecified, first trimester] Onset: 01-03-2024 01-03-2024 Episodic Other screening for suspected conditions (not mental disorders or infectious disease) (11 sources) Encounter for screening for malignant neoplasm [...] weeks gestation of ] Onset: 02-25-2024 Episodic Residual codes; unclassified (3 sources) Gestation period, 24 weeks; Translations: [24 weeks gestation of ] Onset: 04-10-2024 04-10-2024 Episodic Residual codes; unclassified (2 sources) Gestation period, 32 weeks; Translations: [32 weeks gestation of ] 06-05-2024 Episodic Unclassified (1 source) Details of family - finding 05-29-2014 Unclassified (1 source) labor 06-08-2014 Unclassified (1 source) hx placenta abruption/ PTD Onset: 01-21-2024 Past or Other Problems Problem Classification Problem Date Documented Date Episodic/Chronic Conditions associated with dizziness or vertigo (3 sources) Dizziness; Translations: [Dizziness and giddiness] Onset: 01-03-2024 01-03-2024 Episodic Deficiency and other anemia (1 source) Anemia, unspecified; Translations: [ANEMIA UNSPECIFIED] Onset: 08-02-2020 Episodic Immunizations and screening for infectious disease (1 source) Encounter for screening for human papillomavirus (HPV); Translations: [ENC SCREENING HUMAN PAPILLOMAVIRUS] Onset: 05-05-2020 Episodic Other complications of (3 sources) Vomiting of , unspecified; Translations: [Unspecified vomiting of , unspecified as to episode of care or not applicable] Onset: 01-03-2024 01-03-2024 Episodic Other complications of (3 sources) Heartburn; Translations: [Other specified related conditions, first trimester] Onset: 01-03-2024 01-03-2024 Episodic Other complications of (3 sources) Abdominal pain in ; Translations: [Other specified related conditions, unspecified trimester] Onset: 01-03-2024 01-03-2024 Episodic Other female genital disorders (1 source) Unspecified hypertrophy of vulva; Translations: [UNSPECIFIED HYPERTROPHY OF VULVA] Onset: 08-02-2020 Episodic Other non-traumatic joint disorders (3 sources) Hip pain; Translations: [Pain in right hip] Onset: 01-03-2024 01-03-2024 Episodic Residual codes; unclassified (4 sources) Other general symptoms and signs; Translations: [OTHER GENERAL SYMPTOMS AND SIGNS] Onset: 07-12-2020 Episodic Residual codes; unclassified (3 sources) History of placental abruption; Translations: [Personal history of other complications of , childbirth and the puerperium] Onset: 01-03-2024 01-03-2024 Episodic Unclassified (1 source) Onset: 08-20-2013 Resolved: 06-08-2014 02-25-2015 Results Test Name Value Interpretation Reference Range Facility Urinalysis macro (dipstick) panel (U)on 06-05-2024 Bilirubin, UA Negative Negative - 4(70) +++ mg/dL [facility] Blood, UA Positive Negative - 50 Jt/mcL [facility] Comment on above: trace-intact Clarity, UA Clear [facility] Color, UA Yellow [facility] Glucose, UA Negative Negative - 2000(110) ++++ mg/dL [facility] Interpretation and review of laboratory results Abnormal [facility] Ketones, UA Negative Negative - 160(16) ++++ mg/dL [facility] Leukocytes, UA Negative Negative - 500+++ [place]/mcL [facility] Nitrite, UA Negative Negative - Positive [facility] pH, UA 7 5 - 9 [facility] Protein, UA Negative Negative - 2000(20) ++++ mg/dL [facility] Spec Grav, UA 1.02 1 - 1.03 [facility] Urobilinogen, UA 1.0 0.2 - 12 mg/dL [facility] HCG.beta subunit Qnon 2023 hCG Quant [id number] mIU/mL Normal [facility] Comment on above: Order Comment: [...] method. Performed By: #### 2 1198-7 #### [facility] [address] [place] [address] HCG.beta subunit Qnon 2023 hCG Quant [id number] mIU/mL Normal [facility] Comment on above: Order Comment: Pregn [...] method. Performed By: #### 2 1198-7 #### [facility] [address] [place] [address] HCG.beta subunit Qnon 2023 hCG Quant [id number] mIU/mL Normal [facility] Comment on above: Order Comment: Pregn [...] method. Performed By: #### 2 1198-7 #### [facility] [address] [place] [address] [facility] hCG Quant 54053 mIU/mL Normal [facility] Comment on above: Order Comment: Pregn [...] method. Performed By: #### 2 1198-7 #### [facility] [address] [place] [address] HCG.beta subunit Qnon 2023 hCG Quant 2709 mIU/mL Normal [facility] Comment on above: Order Comment: Pregn [...] method. Performed By: #### 2 1198-7 #### [facility] [address] [place] [address] HCG.beta subunit Qnon 2023 hCG Quant 776 mIU/mL Normal [facility] Comment on above: Order Comment: Pregn [...] method. Performed By: #### 2 1198-7 #### [facility] [address] [place] [address] HCG.beta subunit Qnon 2023 hCG Quant 250 mIU/mL Normal [facility] Comment on above: Order Comment: Pregn [...] method. Performed By: #### 2 1198-7 #### [facility] [address] [place] [address] .Thyroglobulin by IMAon 04- Thyroglobulin [Mass/Vol] 5.0 ng/mL Invalid Interpretation Code 1.5-38.5 [facility] Comment on above: Result Comment: Acco [...] John Vish Immunometric Assay Performed at: [facility] [id number] [place], [place] [id number] PhD Johanny Nieto Performed By: #### 2 705808, [id number], [id number], 3233291, [id number], [id number], [id number] #### [facility] [address] [place] [address] T3 Freeon 11-20-2023 Free T3 [Mass/Vol] 3.2 pg/mL Invalid Interpretation Code 2.0-4.4 [facility] Comment on above: Result Comment: Perf ormed at: [id number] [place], [place] [id number] PhD Johanny Nieto Performed By: #### 2 358495, [id number], [id number], 7868184, [id number], [id number], [id number] #### [facility] [address] [place] [address] TgAb+Thyroglobulinon 024 Thyroglobulin Ab Qn [IU]/mL Invalid Interpretation Code 0.0-0.9 [facility] Comment on above: Result Comment: Thyr oglobulin Antibody measured by [employer] It should be noted that the presence of thyroglobulin antibodies may not be pathogenic nor diagnostic, especially at very low levels. The assay green marketing specialist has found that four percent of individuals without evidence of thyroid disease or autoimmunity will have positive TgAb levels up to 4 IU/mL. Performed at: [facility] [address] [place] [address] [id number] PhD Johanny Nieto Performed By: #### 2 140884, [id number], [id number], 2772584, [id number], [id number], [id number] #### [facility] [address] [place] [address] Thyroid Perox.tpo Abon 11-19 TPO Ab Qn [IU]/mL Invalid Interpretation Code 0-34 [facility] Comment on above: Result Comment: Perf ormed at: [facility] [address] [place], [place] [id number] PhD Johanny Nieto Performed By: #### 2 198901, [id number], 36506325, 7420532, [id number], [id number], [id number] #### [facility] [address] [place] [address] BhCG Quanton 11-19-2023 HCG.beta subunit Qn 86 m[IU]/mL High 1-3 [facility] Comment on above: Result Comment: 'F N ON < 1 - 3' ' 0.2 - 1 WEEK = 5 TO 50' ' 1 - 2 WEEKS = 50 - 500' ' 2 - 3 WEEKS = 100 - 5000' ' 3 - 4 WEEKS = 500 - 37157' ' 4 - 5 WEEKS = 1000 - 29570' ' 5 - 6 WEEKS = 06530 - 077883' ' 6 - 8 WEEKS = 78317 - 999841' ' 8 - 12 WEEKS = 93537 - 174819' Performed By: #### 2 [id number] #### [facility] [address] [place] [address] CHEMISTRYOrdered By: SYSTEM SYSTEM on 11-19-2023 HCG.beta [...] 3 - 4 WEEKS = 500 - 02328' ' 4 - 5 WEEKS = 1000 - 96747' ' 5 - 6 WEEKS = 62624 - 055166' ' 6 - 8 WEEKS = 70983 - 810975' ' 8 - 12 WEEKS = 51790 - 363735' Iron [Mass/Vol] 161 ug/dL High 35 - 153 mcg/dL Remisol Chem Iron binding capacity [Mass/Vol] 316 ug/dL Normal 250 - 400 mcg/dL Remisol Chem Transferrin [Mass/Vol] 226 mg/dL Normal 200 - 370 mg/dL Remisol Chem TSH Qn 1.53 m[IU]/L Normal 0.34 - 5.60 mcIU/mL Remisol Chem Consent for Treatmenton Consent for Treatment [id number] #1.00TIFF Normal [facility] Ironon 11-19-2023 Iron [Mass/Vol] 161 microgram/dL High 35-[address] [facility] Comment on above: Performed By: #### 2 360782, 48524201, [id number], 5356533, [id number], [id number], 14593240 #### [facility] [address] [place] [address] Physician Orderon 11-19-2023 Physician Order [id number] #1.00TIFF Normal [facility] TIBC Calculatedon 11-19-2023 Iron binding capacity [Mass/Vol] 316 microgram/dL Normal 250-400 [facility] Comment on above: Performed By: #### 2 991634, 43339255, 11579190, 6393960, 894223264, [id number], 82250982 #### [facility] [address] [place] [id number] Transferrin [Mass/Vol] 226 mg/dL Normal 200-370 [facility] Comment on above: Performed By: #### 2 295346, 18057245, 02796408, 5170769, 602383613, 210647852, 95721992 #### [facility] [address] [place] [address] TSH With T4fr Reflexon 11-18 TSH Qn 1.53 m[IU]/L Normal 0.34-5.60 [facility] Comment on above: Performed By: #### 2 961540, 88154546, 58132668, 8283176, 349071788, 111704993, 47887534 #### [facility] [address] [place] [address] TSHon 07-12-2020 TSH 0.756 uIU/mL Normal 0.470-4.680 [facility] Comment on above: Performed By: #### T SH #### [facility] [address] [place], [place] [address] Jayne Hamm TSH RANGE SEE BELOW Normal [facility] Comment on above: Result Comment: <0.3 4 UIU/ml HYPERTHYROID 0.34-5.60 UIU/ml EUTHYROID >5.60 UIU/ml HYPOTHYROID Performed By: #### T SH #### [facility] [address] [place] [id number] Jayne Noris CBC AUTO DIFFon 06-25-2020 BASO # 0.1 103/ul Normal 0.0-0.1 [facility] Comment on above: Performed By: #### C BC #### [facility] [address] [place] [id number] Jayne Noris Basophils/100 WBC (Bld) 1.2 % Normal 0.2-2.0 [facility] Comment on above: Performed By: #### C BC #### [facility] [address] [place] [address] Jayne Noris EO # 0.2 103/ul Normal 0.0-0.7 [facility] Comment on above: Performed By: #### C BC #### [facility] [address] [place] [address] Jayne Noris Eosinophils/100 WBC (Bld) 2.6 % Normal 0.9-7.0 [facility] Comment on above: Performed By: #### C BC #### [facility] [address] [place] [address] Jayne Noris Erythrocyte distribution width (RBC) [Ratio] 12.0 % Normal 11.0-15.0 [facility] Comment on above: Performed By: #### C BC #### [facility] [address] [place], [place] [id number] Jayne Noris Hematocrit (Bld) [Volume fraction] 40.7 % Normal 36.0-48.0 [facility] Comment on above: Performed By: #### C BC #### [facility] [address] [place], [place] [id number] Jayne Noris Hemoglobin (Bld) [Mass/Vol] 13.6 g/dL Normal 12.0-16.0 [facility] Comment on above: Performed By: #### C BC #### [facility] [address] [place] [address] Jayne Noris IG # 0.01 10e3/ul Normal 0.00-0.03 [facility] Comment on above: Performed By: #### C BC #### [facility] [address] [place], [place] [phone] Jayne Noris IG % 0.2 % Normal 0.0-0.5 [facility] Comment on above: Performed By: #### C BC #### [facility] [address] [place], [place] [phone] Jayne Noris LYMPH # 1.9 103/ul Normal 1.2-3.8 [facility] Comment on above: Performed By: #### C BC #### [facility] [address] [place], [place] [phone] Jayne Noris Lymphocytes/100 WBC (Bld) 32.5 % Normal 20.5-60.0 [facility] Comment on above: Performed By: #### C BC #### [facility] [address] [place], [place] [phone] Jayne Noris MANUAL DIFF REQ NO Normal [facility] Comment on above: Performed By: #### C BC #### [facility] [address] [place], [place] [phone] Jayne Noris MCH (RBC) [Entitic mass] 31.3 pg Normal 26.7-34.0 [facility] Comment on above: Performed By: #### C BC #### [facility] [address] [place], [place] [phone] Jayne Noris MCHC (RBC) [Mass/Vol] 33.4 g/dL Normal 29.9-35.2 [facility] Comment on above: Performed By: #### C BC #### [facility] [address] [place] [address] Jayne Noris MCV (RBC) [Entitic vol] 93.6 fL Normal 81.0-99.0 [facility] Comment on above: Performed By: #### C BC #### [facility] [address] [place], [place] [phone] Jayne Noris MONO # 0.6 103/ul Normal 0.3-0.8 [facility] Comment on above: Performed By: #### C BC #### [facility] [address] [place], [place] [phone] Jayne Noris Monocytes/100 WBC (Bld) 10.4 % Normal 1.7-12.0 [facility] Comment on above: Performed By: #### C BC #### [facility] [address] [place] [address] Jayne Hamm NEUT # 3.1 103/ul Normal 1.4-6.5 [facility] Comment on above: Performed By: #### C BC #### [facility] [address] [place] [address] Jayne Hamm Neutrophils/100 WBC (Bld) 53.1 % Normal 43.0-75.0 [facility] Comment on above: Performed By: #### C BC #### [facility] [address] [place] [address] Jayne Hamm Platelet mean volume (Bld) [Entitic vol] 8.9 fL Critically low 9.5-13.5 [facility] Comment on above: Performed By: #### C BC #### [facility] [address] [place] [address] Jayne Cruzen PLT 265 103/ul Normal 150-450 [facility] Comment on above: Performed By: #### C BC #### [facility] [address] [place] [address] Jayne Cruzen RBC 4.35 106/ul Normal 4.20-5.40 [facility] Comment on above: Performed By: #### C BC #### [facility] [address] [place] [address] Jayne Hamm WBC 5.8 103/ul Normal 4.0-11.0 [facility] Comment on above: Performed By: #### C BC #### [facility] [address] [place] [address] Jayne Hamm PREG QUANT HCGon 06-25-2020 HCG QUANT 1.00 mIU/mL Normal [facility] Comment on above: Performed By: #### P REGQNT #### [facility] [address] [place] [address] Jaynejeremías Hamm HCG RANGE SEE BELOW Normal [facility] Comment on above: Result Comment: 5-50 0-1 WEEK 40-300 1-2 WEEKS 100-1,000 2-3 WEEKS 500-6,000 3-4 WEEKS 5,000-200,000 1-2 MONTHS 10,000-100,000 2-3 MONTHS 3,000-50,000 2ND TRIMESTER 1,000-50,000 3RD TRIMESTER Performed By: #### P REGQNT #### [facility] [address] [place] [address] Jayne Hamm PAP ACOG PANEL 2: 21 to 29on 05-06-2020 . . Normal [facility] Comment on above: Performed By: #### [id number] #### [facility] [address] [place] [address] Jayne Hamm Age Gdln ACOG Testing 22- [facility] Comment on above: Performed By: #### [id number] #### [facility] [address] [place] [address] Jayne Hamm DIAGNOSIS: Comment [facility] Comment on above: Result Comment: NEGA TIVE FOR INTRAEPITHELIAL LESION OR MALIGNANCY. Performed By: #### [id number] #### [facility] [address] [place] [address] Jayne Hamm Methodology: Comment [facility] Comment on above: Result Comment: This liquid based SurePath(R) pap test was screened with the assistance of an image guided system. Performed By: #### [id number] #### [facility] [address] [place], [place] [id number] Jayne Hamm Note: Comment [facility] Comment on above: Result Comment: The Pap smear is a screening test designed to aid in the detection of premalignant and malignant conditions of the uterine cervix. It is not a diagnostic procedure and should not be used as the sole means of detecting cervical cancer. Both false-positive and false-negative reports do occur. . Performed By: #### [id number] #### [facility] [address] [place] [address] Jayne Hamm Performed by: Comment Normal [facility] Comment on above: Result Comment: Suman Rdz, Sausage Maker (ASCP) Performed By: #### [id number] #### [facility] [address] [address] Jayne Noris Reflex Criteria: Comment Normal [facility] Comment on above: Result Comment: The HPV DNA reflex criteria were not met with this specimen result therefore, no HPV testing was performed. . Performed By: #### [id number] #### [facility] [address] [place] [address] Jaynejeremías Hamm Specimen adequacy: Comment Normal [facility] Comment on above: Result Comment: Sati sfactory for evaluation. Endocervical and/or squamous metaplastic cells (endocervical component) are present. Performed By: #### 4 [id number] #### [facility] [address] [place] [address] Jayne Noris US PELVIS AND TRANSVAGon US PELVIS AND [...] by: DARLINE ESPITIA Date: 2020-04-30 14:54 Normal [facility] Vital Signs Date Time Vital Sign Value Performing Clinician Facility 06-05-2024 10:48-0400 Body weight 80.34 kg Fuego Nation DO Work Phone: [facility] 06-05-2024 10:48-0400 Diastolic blood pressure 64 mm[Hg] Bomboard Work Phone: [facility] 06-05-2024 10:48-0400 Systolic blood pressure 100 mm[Hg] Won Rueda DO Work Phone: [facility] 12-10-2023 09:18-0400 Diastolic blood pressure 84 mm[Hg] Hill Jacobsen Work Phone: [facility] 12-10-2023 09:18-0400 Heart rate 101 /min Hill Jacobsen Work Phone: [facility] 12-10-2023 09:18-0400 Respiratory rate 12 /min Hill Jacobsen Work Phone: [facility] 12-10-2023 09:18-0400 Systolic blood pressure 132 mm[Hg] Hill Jacobsen Work Phone: [facility] 11-02-2023 14:27-0400 Body height 180.3 cm Earle Chen MD Work Phone: [facility] 11-02-2023 14:27-0400 Body mass index (BMI) [Ratio] 20.04 kg/m2 Earle Chen MD Work Phone: [facility] 11-02-2023 14:27-0400 Body weight 65.18 kg Earle Chen MD Work Phone: [facility] 11-02-2023 14:27-0400 Diastolic blood pressure 80 mm[Hg] Earle Chen MD Work Phone: [facility] 11-02-2023 14:27-0400 Systolic blood pressure 110 mm[Hg] Earle Chen MD Work Phone: [facility] 09-14-2023 11:30-0500 Body height 180.34 cm Lucila Arnett Other [facility] 09-14-2023 11:30-0500 Body mass index (BMI) [Ratio] 20.92 kg/m2 Lucila Arnett Other [facility] 09-14-2023 11:30-0500 Body weight 68.04 kg Lucila Melquiades Other [facility] Other 09-14-2023 11:30-0500 Body weight 68.03 kg [facility] 09-14-2023 11:30-0500 Diastolic blood pressure 68 mm[Hg] Lucila Melquiades Other [facility] 09-14-2023 11:30-0500 Respiratory rate 16 /min Lucila Melquiades Other [facility] Other 09-14-2023 11:30-0500 SaO2% (BldA) [Mass fraction] 100 % Lucila Melquiades Other [facility] Other 09-14-2023 11:30-0500 Systolic blood pressure 110 mm[Hg] Lucila Melquiades Other [facility] 08-03-2023 10:00-0500 Body height 180.34 cm Lucila Melquiades Other [facility] Other 08-03-2023 10:00-0500 Body mass index (BMI) [Ratio] 20.78 kg/m2 Lucila Arnett Other [facility] Other 08-03-2023 10:00-0500 Body weight 67.59 kg Lucila Melquiades Other [facility] Other 08-03-2023 10:00-0500 Diastolic blood pressure 66 mm[Hg] Lucila Vidyar Other [facility] Other 08-03-2023 10:00-0500 SaO2% (BldA) [Mass fraction] 98 % Lucila Melquiades Other [facility] Other 08-03-2023 10:00-0500 Systolic blood pressure 100 mm[Hg] Lucila Melquiades Other [facility] Other Encounters Encounter Date Encounter Type Care Provider Facility Start: 06-05-2024 End: 06-05-2024 Bamboo flowsheet Won Marybeth DO Work Phone: [facility] Start: 06-05-2024 End: 06-05-2024 Bamboo flowsheet Won Marybeth DO Work Phone: [facility] Start: 06-05-2024 End: 06-05-2024 Office outpatient visit 15 minutes Won Marybeth DO Work Phone: [facility] Comment on above: 32 weeks gestation o f ; Third trimester ; H/O delivery, currently , first trimester; Pelvic pain in female; Cluster headache, not intractable, unspecified chronicity pattern; Bilateral leg pain Start: 06-05-2024 End: 06-05-2024 ambulatory WON MARYBETH Not Available Start: 05-19-2024 End: 05-19-2024 ambulatory WON MARYBETH Not Available Start: 05-08-2024 End: 05-08-2024 ambulatory WON MARYBETH Not Available Start: 04-24-2024 End: 04-24-2024 ambulatory WON MARYBETH Not Available Start: 04-10-2024 End: 04-10-2024 ambulatory WON MARYBETH Not Available Start: 03-31-2024 End: 03-31-2024 ambulatory WON R MARYBETH [facility] Start: 03-27-2024 End: 03-27-2024 ambulatory WON MARYBETH Not Available Start: 03-25-2024 End: 03-25-2024 ambulatory WON R [facility] Start: 03-13-2024 End: 03-13-2024 ambulatory PEDRO TABOR Not Available Start: 02-28-2024 End: 02-28-2024 ambulatory WON MARYBETH Not Available Start: 02-25-2024 End: 02-25-2024 ambulatory WON R [facility] Start: 02-13-2024 End: 02-13-2024 ambulatory WON MARYBETH Not Available Start: 01-30-2024 End: 01-30-2024 ambulatory WON MARYBETH Not Available Start: 01-21-2024 End: 01-21-[facility] Start: 01-17-2024 End: 01-17-2024 ambulatory WON MARYBETH Not Available Start: 01-03-2024 End: 01-03-2024 ambulatory WON MARYBETH Not Available Start: 12-26-2023 End: 12-26-2023 ambulatory WON MARYBETH Not Available Start: 12-13-2023 End: 12-13-2023 ambulatory WON MARYBETH Not Available Start: 12-10-2023 End: 12-11-2023 ambulatory HAKEEM YODER [facility] Start: 12-10-2023 End: 12-10-2023 Encounter identifier Hill Jacobsen Work Phone: [facility] Start: 12-06-2023 End: 12-07-2023 ambulatory HAKEEM YODER [facility] Start: 12-03-2023 End: 12-04-2023 ambulatory HAKEEM YODER [facility] Start: 11-29-2023 End: 11-30-2023 ambulatory HKAEEM BEBA [facility] Start: 11-26-2023 End: 11-27-2023 ambulatory HAKEEM BEBA [facility] Start: 11-23-2023 End: 11-24-2023 ambulatory HAKEEM YODER [facility] Start: 11-21-2023 End: 11-22-2023 ambulatory HAKEEM YODER [facility] Start: 11-19-2023 End: 11-20-2023 ambulatory MARKETING TRAINEE LUCILA ARNETT Facility:[facility] Start: 11-19-2023 End: 11-19-2023 Patient encounter procedure LUCILA ARNETT [facility] Start: 11-14-2023 End: 11-14-2023 ambulatory [facility] Work Phone: Start: 11-14-2023 End: 11-14-2023 Patient encounter procedure [facility] Physician [facility] Work Phone: Start: 11-02-2023 ambulatory EARLE CHEN Facility:[facility] Start: 11-02-2023 End: 11-02-2023 Office outpatient new 60 minutes Earle Chen MD Work Phone: [facility] [place] [facility] Comment on above: Endometriosis (Prima ry Dx); Pelvic pain; Myalgia of pelvic floor; Dysmenorrhea; Dyspareunia in female; Nausea and vomiting, unspecified vomiting type; Bladder pain; Anxiety Start: 10-17-2023 End: 10-17-2023 Patient encounter procedure [facility] Physician [facility] Work Phone: Start: 09-14-2023 End: 09-14-2023 ambulatory Lucila Arnett Other [facility] Other Start: 09-14-2023 Office outpatient vi sit [address] [facility] Start: 09-14-2023 End: 09-14-2023 Patient encounter procedure [facility] Physician [facility] Start: 08-09-2023 End: 08-09-2023 ambulatory Lucila Arnett Other [facility] Other Start: 08-09-2023 Telephone encounter Lucila krueger [facility] Start: 08-03-2023 End: 08-03-2023 ambulatory Lucila Arnett Other [facility] Other Start: 08-03-2023 Office outpatient ne w [address] [facility] Start: 08-03-2023 Telephone encounter Lucila Ni her [employer] Start: 07-12-2020 End: 07-13-[address] WON RUEDA Facility:[facility] Start: 06-25-2020 End: 06-25-[address] WON RUEDA Facility:[facility] Start: 04-30-2020 End: 05-01-[address] WON RUEDA Facility:[facility] Start: 04-29-2020 End: 04-29-[address] WON RUEDA Facility:[facility] Procedures Date Procedure Procedure Detail Performing Clinician Start: 06-05-2024 Urnls dip stick/tabl et rgnt non-auto w/o micrscp Won Rueda DO Work Phone: Start: 08-20-2004 Tooth extraction MADI ARNETT uterine ablation LUCILA MARLEN BAH Plan of Treatment Date Care Activity Detail Author Start: 06-30-2024 End: 06-30-2024 Patient encounter procedure 06/30/2024 10:30 AM EST Routine [facility] [address] [place] [id number] Won Rueda, DO [address] [place] [address] [facility] Start: 06-30-2024 End: 06-30-2024 Professional / ancillary services management 06/30/2024 10:00 AM EST Ancillary Procedure [facility] [address] [place] [id number] [facility] Start: 06-23-2024 End: 06-23-2024 Patient encounter procedure 06/23/2024 10:10 AM EST Routine [facility] [address] [place] [id number] Won Rueda, DO [address] [place] [address] [facility] Start: 06-05-2024 End: 06-05-2024 Patient encounter procedure 06/05/2024 10:40 AM EDT Routine [facility] [address] [address] Won Rueda, [address] [place] [address] Arrived [facility] Comment on above: Arrived Start: 11-02-2023 End: 11-01-2024 MR Pelvis WO and W contrast IV MRI PELVIS WITH AND WITHOUT CONTRAST Imaging Routine Endometriosis Pelvic pain Expected: 11/02/2023, Expires: 11/01/2024 [facility] Comment on above: Expected: 11/02/2023 , Expires: 11/01/2024 Start: 10-17-2023 Patient referral [facility] Work Phone: Start: 04-20-2023 COVID-19 VACCINE ( season) COVID-19 VACCINE ( season) [facility] Start: 04-20-2023 Influenza vaccination INFLUENZA VACC INE (#1) [facility] Start: 2017 Screening for malign ant neoplasm of cervix CERVICAL CANCER SCREENING DISCUSSION [facility] Start: 11-08-2015 Hepatitis B vaccination HEP B VACCINE (1 of 3 - 19+ 3-dose series) [facility] Start: 11-08-2015 Third diphtheria, te tanus and acellular pertussis (DTaP) vaccination TDAP (ADULT) [facility] Start: 2012 Screening for Chlamy david trachomatis CHLAMYDIA SCREEN [facility] Start: 11-08-2011 HIV screening HIV SCREENING DISCUSSION [facility] Start: 11-08-2011 Vaccination for kale n papillomavirus HPV VACCINE ADOL (1 - 3-dose series) [facility] Start: 1996 Hepatitis C screening HEPATITI S C VIRUS SCREENING [facility] Start: 1996 Screening for Chlamy david trachomatis GONORRHEA SCREEN [facility] Start: 1996 Tetanus vaccination TETANUS [facility] Patient referral [facility] Work Phone: Payers Date Payer Category Payer Medicaid [place]ICA[place] [id number] 2024 Medicaid [id number] 2023 [employer] ( and others) [id number] 2023 [employer] ( and others) [facility] [id number] 2023-Present [address] [place] [address] [id number] 2023 [employer] ( and others) [id number] 1996 Unknown [id number] 2.16.840.1.778467.3.579.2. 593 1996 Unknown [id number] 2.16.840.1.887400.3.579.2. 593 1996 Unknown [id number] 2.16.840.1.420446.3.579.2. 593 1996 Unknown [id number] 2.16.840.1.617576.3.579.2. 593 1996 Unknown [id number] 2.16.840.1.503538.3.579.2. 593 1996 Unknown [id number] 2.16.840.1.799179.3.579.2. 594 1996 Unknown [id number] 2.16.840.1.875026.3.579.2. 727 1996 Unknown [id number] 2.16.840.1.601655.3.579.2. 1143 1996 Unknown [id number] 2.16.840.1.257322.3.579.2. 1143 1996 Unknown [id number] 2.16.840.1.500269.3.579.2. 1143 1996 Unknown [id number] 2.16.840.1.082497.3.579.2. 1143 1996 Unknown [id number] 2.16.840.1.631557.3.579.2. 1143 1996 Unknown [id number] 2.840.1.878918.3.579.2. 1142 1996 Unknown [id number] 2.16.840.1.986659.3.579.2. 114 1996 Unknown [id number] 2.16840.1.644461.3.579.2. 1285 1996 Unknown [id number] 2.16840.1.254139.3.579.2. 1285 1996 Unknown [id number] 2.16840.1.268315.3.579.2. 1285 1996 Unknown [id number] 2.16840.1.979759.3.579.2. 1285 1996 Unknown [id number] 2.16840.1.205565.3.579.2. 1285 1996 Unknown [id number] 2.16840.1.977179.3.579.2. 1285 1996 Unknown [id number] 2.16840.1.585744.3.579.2. 1259 1996 Unknown [id number] 2.16.840.1.404431.3.579.2. 9 1996 Unknown [id number] 2.16.840.1.963491.3.579.2. 1258 1996 Unknown [id number] 2.16.840.1.852347.3.579.2. 1258 1996 Unknown [id number] 2.16.840.1.756119.3.579.2. 1258 1996 Unknown [id number] 2.16.840.1.030480.3.579.2. 1258 1996 Unknown [id number] 2.16.840.1.776069.3.579.2. 1258 1996 Unknown [id number] 2.16.840.1.557572.3.579.2. 1258 1996 Unknown [id number] 2.16.840.1.248546.3.579.2. 1258 1996 Unknown [id number] 2.16.840.1.121081.3.579.2. 1258 1996 Unknown [id number] 2.16.840.1.044842.3.579.2. 1258 1996 Unknown [id number] 2.16.840.1.954962.3.579.2. 1258 1996 Unknown [id number] 2.16.840.1.997087.3.579.2. 1258 1996 Unknown [id number] 2.16.840.1.959041.3.579.2. 9 1959 [employer] ( and others) [id number] 1959 [employer] ( and others) [id number] [employer] ( and others) [id number] 2.16.840.1.012075.19 Social History Date Type Detail Facility Start: 11-02-2023 Sex Assigned At [facility] Start: 09-30-2017 End: 11-02-2023 Tobacco smoking status NHIS Never smoked tobacco [facility] Start: 11-02-2023 Tobacco use and exposure Smokeless tobacco non-user [facility] Start: 11-02-2023 Alcoholic beverage intake Lifetime non-drinker (finding) [facility] Start: 11-02-2023 History of Social function [facility] Start: 1996 Sex assigned at Not on file [facility] Start: 1996 Sex Assigned At Female [facility] Start: 12-10-2023 Tobacco smoking status NHIS Unknown if ever smoked [facility] Start: 12-10-2023 Alcohol intake Alcohol Use Details [facility] Start: 09-04-2023 Sexual Orientation Lesbian, lynch or homosexual [facility] Start: 11-03-2023 [facility] Clinical Notes 06-25-2020 to 06-05-2024 Zakiya Traylor LPN - 06/05/2024 10:40 AM EDTMsola Chen MD - 11/02/2023 2:30 PM EDT Note Date & Type Note Facility 06-05-2024 History of Present illness Narrative Reason for Appointment: Patient ID: Goldie Medrano is a 28 y.o. female who presents for No chief complaint on file. Patient presents today for Return OB appointment. MEDICATIONS Current Outpatient Medications Medication Instructions Alcohol Swabs (Alcohol Prep Pad) 70 % pads 1 Pad, Topical, Daily, Use four times daily to check FSBS. aspirin 81 mg, Daily Blood Glucose Monitoring Suppl (D-Care Glucometer) w/Device kit 1 kit, Does not apply, Daily, Use four times daily to check FSBS. In the morning prior to breakfast & 1 hour after each meal for a total of 4times daily. cyclobenzaprine (Flexeril) 10 MG tablet cyclobenzaprine 10 mg tablet - Active Ferrous Sulfate (IRON PO) 1 tablet, Daily RT iron polysaccharides (PROFE) 391.3 mg, Oral, Daily magnesium lactate CR (MAGTAB) 84 mg, Daily RT magnesium oxide (Mag-Ox) 400 (240 Mg) MG tablet omeprazole (PRILOSEC) 20 mg, Oral, Daily before breakfast, Do not crush or chew. ondansetron ODT (Zofran-ODT) 4 MG disintegrating tablet ondansetron 4 mg disintegrating tablet - Active Amfmnqat-Dda-Uj-FA ( 1 + IRON PO) Daily RT zolpidem (AMBIEN) 10 mg, Oral, Nightly PRN ALLERGIES Allergies Allergen Reactions Emgality [Galcanezumab-Gnlm] Galcanezumab Lavender Oil Unknown Tramadol Unknown Other Reaction(s): Not available PROBLEMS Active Ambulatory Problems Diagnosis Date Noted Right hip pain 01/03/2024 History of placenta abruption 01/03/2024 Nausea and vomiting in 01/03/2024 Heartburn during in first trimester 01/03/2024 H/O delivery, currently , first trimester 01/03/2024 Abdominal pain affecting 01/03/2024 First trimester 01/03/2024 Dizziness 01/03/2024 Pelvic pain in female 03/27/2024 Second trimester 03/27/2024 Diabetes mellitus screening 03/27/2024 24 weeks gestation of 04/10/2024 Prior with placenta abruption in third trimester, antepartum 04/10/2024 Resolved Ambulatory Problems Diagnosis Date Noted No Resolved Ambulatory Problems Past Medical History: Diagnosis Date Anxiety Depression ([facility]/HCC) Endometriosis OCD (obsessive compulsive disorder) ([facility]) PTSD (post-traumatic stress disorder) ([facility]) HISTORY PAST MEDICAL HISTORY SOCIAL HISTORY Past Medical History: Diagnosis Date Anxiety Depression ([facility]/HCC) Endometriosis OCD (obsessive compulsive disorder) ([facility]) PTSD (post-traumatic stress disorder) ([facility]) Social History Tobacco Use Smoking status: Not on file Smokeless tobacco: Not on file Substance Use Topics Alcohol use: Not on file Drug use: Not on file FAMILY HISTORY No family history on file. SURGICAL HISTORY Past Surgical History: Procedure Laterality Date WISDOM TOOTH EXTRACTION REVIEW OF SYSTEMS Review of Systems: Review of Systems Genitourinary: Positive for pelvic pain and vaginal pain. All other systems reviewed and are negative. OBJECTIVE Objective: Physical Exam Constitutional: Appearance: Normal appearance. She is well-developed. Cardiovascular: Rate and Rhythm: Normal rate and regular rhythm. Pulmonary: Effort: Pulmonary effort is normal. Breath sounds: Normal breath sounds. Abdominal: General: Bowel sounds are normal. There is no distension. Palpations: Abdomen is soft. Tenderness: There is no abdominal tenderness. There is no guarding or rebound. Musculoskeletal: General: No swelling. Normal range of motion. Right lower leg: No edema. Left lower leg: No edema. Neurological: Mental Status: She is alert and oriented to person, place, and time. Skin: General: Skin is warm and dry. Psychiatric: Mood and Affect: Mood normal. Behavior: Behavior normal. Vitals and nursing note reviewed. Exam conducted with a entry processor present. Vitals: There is no height or weight on file to calculate BMI. BP: 100/64 Patient's last menstrual period was 10/20/2023. ASSESSMENT & PLAN ICD-10-CM 1. 32 weeks gestation of Z3A.32 POCT urinalysis dipstick manually resulted 2. Third trimester Z34.93 POCT urinalysis dipstick manually resulted Patient presents today for a routine obstetrics appointment. Patient is currently 32w5d with a Estimated Date of Delivery: 07/26/24. Patient to continue with NST/BPP's and to return to clinic in 2 weeks for routine OB appointment. Patient to scheduled growth scan on 06/30/24. Transcribed by Zakiya Traylor LPN on behalf of: Won Rueda DO documented in this encounter [facility] 11-19-2023 Evaluation + Plan note Diagnostic Tests PendingT3 Free 11/19/23Thyroid Perox.tpo Ab 11/19/23TgAb+Thyroglobulin,CHING or ARLEN 11/19/23 [facility] 11-02-2023 History of Present illness Narrative GYNECOLOGY CONSULT NOTE REASON FOR VISIT Endometriosis Pelvic pain HISTORY OF PRESENT ILLNESS Ms. Medrano is a 27 y.o. (NSVDx2) who presents for consultation regarding endometriosis, pelvic pain. Records review: Moved back from [place] to [place] (2021) First diagnosed in 2018 Has had [...] a women's health doctor in [facility] who told her she had stage IV endometriosis. She is no longer on the progesterone. Has tried vaginal valium does not help Her 2 previous pregnancies were with a previous partner. She and her are trying for another now. No BA in [place] Partner has not had a SA yet [...] patient today. documented in this encounter [facility] 09-14-2023 Evaluation note Encounter Date Diagnosis [...] on the risks and benefits of superintendent container terminal use. Risk assessment was done. Patient [...] Pt to call with any worsening symptoms. [facility] Other 12-21-2023 Evaluation note* Encounter Date Diagnosis Assessment Notes Treatment Notes Treatment Clinical Notes Jul, Generalized anxiety disorder (ICD-10 - F41.1) Jul, Endometriosis (ICD-1 0 - N80.9) [facility] Other 12-15-2023 Evaluation note* Encounter Date Diagnosis [...] on the risks and benefits of superintendent container terminal use. Risk assessment was done as well [...] intractable, unspecified migraine type (ICD-10 - G43.909) [facility] Other 11-06-2020 NoteOPERATIVE NOTE OPERATION DATE: 06-25-20 ANESTHETIC:General. JAVASCRIPT WEB DEVELOPER:None. PREOPERATIVE DIAGNOSIS: 1. Dyspareunia. 2. Right and [...] lap, and needle counts were correct x2. [facility] Signed and Approved by: DR WON RUEDA . 07/30/2020 13:02:00[facility]* Clinical Note Date No Information [facility] Work Phone: Discharge summary* Clinical Note Date No Information [facility] Work Phone: [facility] [place] Other Evaluation [facility]* Diagnosis Endometriosis- Primary Endometriosis, site unspecified Pelvic pain Unspecified symptom associated with female genital organs Myalgia of pelvic floor Dysmenorrhea Dyspareunia in female Nausea and vomiting, unspecified vomiting type Bladder pain Other symptoms involving urinary system Anxiety Anxiety state, unspecified documented in this encounter [facility] Diagnosis Onset Date Resolution Status Depression acute Generalized anxiety disorder acute Obsessive compulsive disorder acute PTSD (post-traumatic stress disorder) acute Depression acute Endometriosis acute Generalized anxiety disorder acute Obsessive compulsive disorder acute PTSD (post-traumatic stress disorder) acute TBI (traumatic brain injury) acute [facility] Work Phone: Evaluation note* Type Assessment Date No Information [facility] Work Phone: Evaluation note* Diagnosis 32 weeks gestation of Third trimester state, incidental H/O delivery, currently , first trimester Pelvic pain in female Unspecified symptom associated with female genital organs Cluster headache, not intractable, unspecified chronicity pattern Bilateral leg pain Pain in soft tissues of limb [facility] Clinical Note Date No Information [facility] Work Phone: History general Narrative - Reported* Type Description Date Medical History Anxiety Medical History Stage 4 Endometriosis Medical History Depression with manic episodes Medical History OCD Medical History PTSD Medical History TBI Surgical History Endometriosis surgery x2 Surgical History [place] teeth Surgical History Injections in cervix [facility] [place] Other History of Present illness Narrative* Encounter Date Complaint History Of Prese nt Illness No Information [facility] [address] Phone: Hospital course Narrative No data available for this section [facility] No data available for this section [facility]* Date Instruction Additional Infor mation No Information [facility] Work Phone: Progress note No data available for this section [facility]* Clinical Note Date No Information [facility] Work Phone: Reason for referral (narrative)* Consultation (Routine) - New Request Specialty Diagnoses / Procedures Referred By Contgerardo t Referred To Contact Psychology Diagnoses Pelvic pain Anxiety Earle Chen MD [address] [place] [address] Oksana Luu, PhD [address] [place] [address] Referral ID Status Reason Start Date Expiration Date V isits Requested Visits Authorized [id number] New Request 11/02/2023 11/26/2024 1 1 * Consultation (Routine) - New Request Specialty Diagnoses / Procedures Referred By Contac t Referred To Contact Integrative Medicine Diagnoses Pelvic pain Nausea and vomiting, unspecified vomiting type Earle Chen MD [address] [place] [address] Referral ID Status Reason Start Date Expiration Date V isits Requested Visits Authorized [id number] New Request 11/02/2023 11/26/2024 1 1 * Consultation (Routine) - New Request Specialty Diagnoses / Procedures Referred By Contac t Referred To Contact Gynecology Diagnoses Pelvic pain Myalgia of pelvic floor Bladder pain Earle Chen MD [address] [place] [address] Referral ID Status Reason Start Date Expiration Date V isits Requested Visits Authorized [id number] New Request 11/02/2023 11/26/2024 1 1 * MRI/CAT Scan (Routine) - New Request Specialty Diagnoses / Procedures Referred By Contac t Referred To Contact Diagnoses Endometriosis Pelvic pain Procedures MRI PELVIS WITH AND WITHOUT CONTRAST IN MRI, PELVIS, COMBO Earle Chen MD [address] [place] [address] Referral ID Status Reason Start Date Expiration Date V isits Requested Visits Authorized [id number] New Request 11/02/2023 11/26/2024 1 1 [facility] Reason For Referral No Information [facility] Work Phone: Summary Purpose Family History No [...] Diagnosis 1 Endometriosis (N80.9 ) Referral Organization [facility] [employer] Referring Provider First Name Lucila Referring Provider Last Name Steveacher Referring Provider Specialty Nurse Pract itioner Referred Organization [facility] Referred Provider Jena Suresh Referred Address ,[place], [place],[address] Referred Provider Specialty OB - Gynecol ogy Referral Priority Routine General Notes Lesley Bowman 01:18:58 PM >pt has west. we do not take this insurance. we take east. pt will need to update this with [facility] if she has relocated or only here for a short period of time. I called pt but her mail box is full. Reason *FU 08/06 CALL taryn walton Diagnosis 1 History of traumatic brain injury (Z87.820) Diagnosis 2 Migraine without sta tus migrainosus, not intractable, unspecified migraine type (G43.909) Referral Organization [facility] [employer] Referring Provider First Name Lucila Referring Provider Last Name Steveacher Referring Provider Specialty Nurse Pract itioner Referred Organization [facility] Referred Provider Herbie Arroyo Referred Address [address] [place] [place], [place],[address] Referred Provider Specialty Neurology Referral Priority Routine [...] Diagnosis 1 Endometriosis (N80.9 ) Referral Organization [facility] Referring Provider First Name Lucila Referring Provider Last Name Melquiades Referring Provider Specialty Nurse Pract itioner Referred Organization [facility] Referred Address [address] [place], [place],[address] Referred Provider Specialty Endocrinolog y Referral Priority [...] and content) DATE CREATED AUTHOR [facility] DATE CREATED AUTHOR AUTHOR'S ORGANIZ ATION 11/03/2023 [facility] DATE CREATED AUTHOR AUTHOR'S ORGANIZ ATION 11/20/[address] [facility] DATE CREATED AUTHOR AUTHOR'S ORGANIZ ATION 12/15/2023 [facility] DATE CREATED AUTHOR AUTHOR'S ORGANIZ ATION 04/01/2024 [facility] DATE CREATED AUTHOR AUTHOR'S ORGANIZ ATION 06/07/2024 [facility] EPIC REASON FOR VISIT (unrecogniz ed section and content) Reason Comments Consult Pt diagnosis with En dometriosis in 2018. Patient desire . Specialty Diagnoses / Procedures Referred By Harris gautam Referred To Contact ASSISTANT PRESS OPERATOR OFFSET Diagnoses Endometriosis Lucila Arnett, MARKETING TRAINEE [address] [facility] [place] [address] [facility] [address] [place] [address] Referral ID Status Reason Start Date Expiration Date V isits Requested Visits Authorized [id number] New Request 10/23/2023 11/16/2024 1 1 Care Teams (unrecognized sec tion and content) Team Status: Active Member Role Status Dates Lucila Arnett APRN TABLE LEVER OPERATOR-C Primary Care Provider Active Team Status: Inactive Member Role Status Dates Lucila Arnett APRN TABLE LEVER OPERATOR-C Attending Provider Act vinicius Start: September 14, 2023 End: September 14, 2023 Team Status: Inactive Member Role Status Dates Lucila Arnett APRN TABLE LEVER OPERATOR-C Primary Care Provider, Attending Provider Active Start: October 17, 2023 End: October 17, 2023 Team Status: Inactive Member Role Status Dates Lucila Arnett APRN TABLE LEVER OPERATOR-C Primary Care Provider, Attending Provider Active Start: November 14, 2023 End: November 14, 2023 Name Effective Dates (start - stop) Status Members No Information Gate Operator Relationship Specialty Start Date End Date Lucila Arnett NP [address] [place] [id number] PCP - General Family Medicine 11/11/23 Gate Operator Relationship Specialty Start Date End Date Lucila Arnett NP [address] [place] [id number] PCP - General Family Medicine 11/11/23 Goals (unrecognized section and content) Goals may [...] BE BASED ON THE PRIMARY CLINICAL RECORDS. [facility] [employer] [facility]. provides no warranty or guarantee of the accuracy or completeness of information in this document.
[2024-06-10 10:50] VITALS: BP 118/80; PULSE 96
== END 2024-06-10 11:11 | disposition home or self-care (01) ==
LOC: FBCO 07:05 → FBC 10:42
PROVIDERS: PCP Nurse Practitioner Family; Visit Provider Obstetrics & Gynecology
DX: O26.893 Other specified pregnancy related conditions, third trimester (principal); Z3A.33 33 weeks gestation of pregnancy
CPT/HCPCS: 59025

== ENCOUNTER 2024-06-13 07:13 | Outpatient (OUT) | payer OTHER, SELFPAY ==
--- NOTE | 2024-06-13 | US_ITS ---
[address] [address] Patient Name: COLTON VERMA MRN: [id number] date: 1995 Sex: F Assigned Patient Location: [facility] Current Patient Location: Accession/Order Number: [id number] Exam Date: 06/13/2024 10:53 Report Date: 06/14/2024 04:21 At the request of: WON LESTER Procedure: US OB BPP w non-stress EXAMINATION: US OB BPP w non-stress HISTORY:History of delivery COMPARISON: Ultrasound OB biophysical 06/06/2024 TECHNIQUE: Ultrasound biophysical profile was performed in the radiology department. BREATHING MOVEMENTS: 2 GROSS BODY MOVEMENTS: 2 TONE: 2 QUALITATIVE AMNIOTIC FLUID VOLUME: 2 PRESENTATION: CEPHALIC HEART RATE: 143.62 bpm AMNIOTIC FLUID VOLUME: 15.09 cm GESTATIONAL AGE: 33 weeks 6 days US/US OB BPP w non-stress IMPRESSION: Total biophysical profile score: 8 Electronically authenticated by: ISIAH ROJAS Date: 06/14/2024 04:21
--- OUTSIDE RECORDS SUMMARY | 2024-06-13 07:17 | XMS_ITS | CCD ---
Author Organization [facility] Care Team Providers Care Theatre Program Director Name Role Phone MARYBETH, DR UPTON Admitting [...] DR UPTON Attending Unavailable Lucila Arnett Unavailable [phone] Unavailable Primary Care Provider Unavailabl e [...] (1 source) traMADol Drug Allergy 0 [facility] Repository (9 sources) traMADol; Translations: [TRAMADOL] Drug Allergy 4 Unknown [facility] (9 sources) Lavender Oil; Translations: [LAVENDER OIL] Drug allergy 4 Unknown [facility] (1 source) lavender (Lavandula angustifolia) Allergy to substance 4 Unknown Reaction [facility] (4 sources) GALCANEZUMAB-GNL M; Translations: [GALCANEZUMAB-GN LM] Propensity to adverse reactions to drug (disorder) 4 [facility] Repository (3 sources) Galcanezumab Propensity to adverse reactions 4 [facility] Work Phone: Medications Current Medications [...] oral solution (1 source) alpha-Adrenergic Agonist, Uncompetitive K-yykiqw-A-aspartate Receptor Antagonist, Sigma-1 Agonist Start : 09-30 [...] Daily 30 capsule 6 05/05/2024 05/05/2025 Active Xjrrnlwm-Dnf-Wg-FA ( 1 + IRON PO) (3 sources) Rubntzzu-Fsj-Pc-FA ( 1 + IRON PO) Take by [...] q6hr, # 10 tab(s), Refills(s) 0, Pharmacy: [facility] Start Date: 09/21/18 Status: [...] UA Negative Negative - 4(70) +++ mg/dL [facility] Blood, UA Positive Negative - 50 Jt/mcL [facility] Comment on above: trace-intact Clarity, UA Clear [facility] Color, UA Yellow [facility] Glucose, UA Negative Negative - 2000(110) ++++ mg/dL [facility] Interpretation and review of laboratory results Abnormal [facility] Ketones, UA Negative Negative - 160(16) ++++ mg/dL [facility] Leukocytes, UA Negative Negative - 500+++ [place]/mcL [facility] Nitrite, UA Negative Negative - Positive [facility] pH, UA 7 5 - 9 [facility] Protein, UA Negative Negative - 2000(20) ++++ mg/dL [facility] Spec Grav, UA 1.02 1 - 1.03 [facility] Urobilinogen, UA 1.0 0.2 - 12 mg/dL [facility] HCG.beta subunit Qnon 2023 hCG Quant [id number] mIU/mL Normal [facility] Comment on above: Order Comment: [...] method. Performed By: #### 2 1198-7 #### [facility] [address] [place] [address] HCG.beta subunit Qnon 2023 hCG Quant 74090 mIU/mL Normal [facility] Comment on above: Order Comment: Pregn [...] method. Performed By: #### 2 1198-7 #### [facility] [address] [place] [address] HCG.beta subunit Qnon 2023 hCG Quant 46451 mIU/mL Normal [facility] Comment on above: Order Comment: Pregn [...] method. Performed By: #### 2 1198-7 #### [facility] [address] [place] [address] [facility] hCG Quant 57932 mIU/mL Normal [facility] Comment on above: Order Comment: Pregn [...] method. Performed By: #### 2 1198-7 #### [facility] [address] [place] [address] HCG.beta subunit Qnon 2023 hCG Quant 2709 mIU/mL Normal [facility] Comment on above: Order Comment: Pregn [...] method. Performed By: #### 2 1198-7 #### [facility] [address] [place] [address] HCG.beta subunit Qnon 2023 hCG Quant 776 mIU/mL Normal [facility] Comment on above: Order Comment: Pregn [...] method. Performed By: #### 2 1198-7 #### [facility] [address] [place] [address] HCG.beta subunit Qnon 2023 hCG Quant 250 mIU/mL Normal [facility] Comment on above: Order Comment: Pregn [...] method. Performed By: #### 2 1198-7 #### [facility] [address] [place] [address] .Thyroglobulin by IMAon 04- Thyroglobulin [Mass/Vol] 5.0 ng/mL Invalid Interpretation Code 1.5-38.5 [facility] Comment on [...] John Vish Immunometric Assay Performed at: [facility] [id number] [place], [place] [id number] PhD Johanny Nieto Performed By: #### 2 [id number], [id number], [id number], [id number], [id number], [id number], [id number] #### [facility] Laboratory [address] [place] [address] T3 Freeon 11-20-2023 Free T3 [Mass/Vol] 3.2 pg/mL Invalid Interpretation Code 2.0-4.4 [facility] Comment on above: Result Comment: Perf ormed at: [id number] [place], [place] [id number] PhD Johanny Nieto Performed By: #### 2 265926, [id number], [id number], [id number], [id number], [id number], [id number] #### [facility] Laboratory [address] [place] [address] TgAb+Thyroglobulinon 024 Thyroglobulin Ab Qn [IU]/mL Invalid Interpretation Code 0.0-0.9 [facility] Comment on above: Result Comment: Thyr oglobulin Antibody measured by [employer] Methodology It should be noted that the presence of thyroglobulin antibodies may not be pathogenic nor diagnostic, especially at very low levels. The assay counseling psychologist has found that four percent of individuals without evidence of thyroid disease or autoimmunity will have positive TgAb levels up to 4 IU/mL. Performed at: [facility] [address] [place] [address] [id number] PhD Johanny Nieto Performed By: #### 2 052735, [id number], [id number], 8678668, [id number], [id number], [id number] #### [facility] Laboratory [address] [place] [address] Thyroid Perox.tpo Abon 11-19 TPO Ab Qn [IU]/mL Invalid Interpretation Code 0-34 [facility] Comment on above: Result Comment: Perf ormed at: [facility] [address] [place], [place] [id number] PhD Johanny Nieto Performed By: #### 2 433507, [id number], [id number], 5913420, [id number], [id number], [id number] #### [facility] Laboratory [address] [place] [address] BhCG Quanton 11-19-2023 HCG.beta subunit Qn 86 m[IU]/mL High 1-3 [facility] Comment on above: Result Comment: 'F N ON < 1 - 3' ' 0.2 - 1 WEEK = 5 TO 50' ' 1 - 2 WEEKS = 50 - 500' ' 2 - 3 WEEKS = 100 - 5000' ' 3 - 4 WEEKS = 500 - 99275' ' 4 - 5 WEEKS = 1000 - 71192' ' 5 - 6 WEEKS = 42660 - 158410' ' 6 - 8 WEEKS = 32293 - 813084' ' 8 - 12 WEEKS = 57778 - 811993' Performed By: #### 2 [id number] #### [facility] Laboratory [address] [place] [address] CHEMISTRYOrdered By: SYSTEM SYSTEM on 11-19-2023 HCG.beta [...] 3 - 4 WEEKS = 500 - 83244' ' 4 - 5 WEEKS = 1000 - 30062' ' 5 - 6 WEEKS = 83892 - 926867' ' 6 - 8 WEEKS = 76985 - 988862' ' 8 - 12 WEEKS = 16505 - 275373' Iron [Mass/Vol] 161 ug/dL High 35 - 153 mcg/dL [facility] Iron binding capacity [Mass/Vol] 316 ug/dL Normal 250 - 400 mcg/dL [facility] Transferrin [Mass/Vol] 226 mg/dL Normal 200 - 370 mg/dL [facility] TSH Qn 1.53 m[IU]/L Normal 0.34 - 5.60 mcIU/mL Rem[facility] Chem Consent for Treatmenton Consent for Treatment [id number] #1.00TIFF Normal [facility] Ironon 11-19-2023 Iron [Mass/Vol] 161 microgram/dL High 35-[address] [facility] Comment on above: Performed By: #### 2 452241, [id number], 49950916, 1224446, [id number], 481394530, [id number] #### [facility] [address] [place] [address] Physician Orderon 11-19-2023 Physician Order [id number] #1.00TIFF Normal [facility] TIBC Calculatedon 11-19-2023 Iron binding capacity [Mass/Vol] 316 microgram/dL Normal 250-400 [facility] Comment on above: Performed By: #### 2 345701, 45546714, 04701990, 0322720, [id number], [id number], [id number] #### [facility] Laboratory [address] [id number] Transferrin [Mass/Vol] 226 mg/dL Normal 200-370 [facility] Comment on above: Performed By: #### 2 918974, [id number], 88150357, 2502689, [id number], 945700291, [id number] #### [facility] Laboratory [address] [place] [address] TSH With T4fr Reflexon 11-18 TSH Qn 1.53 m[IU]/L Normal 0.34-5.60 [facility] Comment on above: Performed By: #### 2 056750, 14228513, 79125837, 0587064, [id number], [id number], [id number] #### [facility] Laboratory [address] [place] [address] TSHon 07-12-2020 TSH 0.756 uIU/mL Normal 0.470-4.[address] [facility] Comment on above: Performed By: #### T SH #### [facility] [address] [place], [place] [address] Jayne Hamm TSH RANGE SEE BELOW Normal [facility] Comment on above: Result Comment: <0.3 4 UIU/ml HYPERTHYROID 0.34-5.60 UIU/ml EUTHYROID >5.60 UIU/ml HYPOTHYROID Performed By: #### T SH #### [facility] [address] [place] [id number] Jayne Noris CBC AUTO DIFFon 06-25-2020 BASO # 0.1 103/ul Normal 0.0-0.1 [facility] Comment on above: Performed By: #### C BC #### [facility] [address] [id number] Jayne Noris Basophils/100 WBC (Bld) 1.2 % Normal 0.2-2.0 [facility] Comment on above: Performed By: #### C BC #### [facility] [address] [address] Jayne Noris EO # 0.2 103/ul Normal 0.0-0.7 [facility] Comment on above: Performed By: #### C BC #### [facility] [address] [place] [address] Jayne Noris Eosinophils/100 WBC (Bld) 2.6 % Normal 0.9-7.0 [facility] Comment on above: Performed By: #### C BC #### [facility] [address] [place] [address] Jayne Noris Erythrocyte distribution width (RBC) [Ratio] 12.0 % Normal 11.0-15.0 [facility] Comment on above: Performed By: #### C BC #### [facility] [address] [place], [place] [id number] Jayne Noris Hematocrit (Bld) [Volume fraction] 40.7 % Normal 36.0-48.0 [facility] Comment on above: Performed By: #### C BC #### [facility] [address] [place], [place] [id number] Jayne Noris Hemoglobin (Bld) [Mass/Vol] 13.6 g/dL Normal 12.0-16.0 [facility] Comment on above: Performed By: #### C BC #### [facility] [address] [place] [address] Jayne Noris IG # 0.01 10e3/ul Normal 0.00-0.03 [facility] Comment on above: Performed By: #### C BC #### [facility] [address] [place], [place] [id number] Jayne Noris IG % 0.2 % Normal 0.0-0.5 [facility] Comment on above: Performed By: #### C BC #### [facility] [address] [place], [place] [id number] Jayne Noris LYMPH # 1.9 103/ul Normal 1.2-3.8 [facility] Comment on above: Performed By: #### C BC #### [facility] [address] [place], [place] [id number] Jayne Noris Lymphocytes/100 WBC (Bld) 32.5 % Normal 20.5-60.0 [facility] Comment on above: Performed By: #### C BC #### [facility] [address] [place], [place] [id number] Jayne Noris MANUAL DIFF REQ NO Normal [facility] Comment on above: Performed By: #### C BC #### [facility] [address] [place], [place] [id number] Jayne Noris MCH (RBC) [Entitic mass] 31.3 pg Normal 26.7-34.0 [facility] Comment on above: Performed By: #### C BC #### [facility] [address] [place], [place] [id number] Jayne Noris MCHC (RBC) [Mass/Vol] 33.4 g/dL Normal 29.9-35.2 [facility] Comment on above: Performed By: #### C BC #### [facility] [address] [place] [address] Jayne Noris MCV (RBC) [Entitic vol] 93.6 fL Normal 81.0-99.0 [facility] Comment on above: Performed By: #### C BC #### [facility] [address] [place], [place] [id number] Jayne Noris MONO # 0.6 103/ul Normal 0.3-0.8 [facility] Comment on above: Performed By: #### C BC #### [facility] [address] [place], [place] [id number] Jayne Noris Monocytes/100 WBC (Bld) 10.4 % Normal 1.7-12.0 [facility] Comment on above: Performed By: #### C BC #### [facility] [address] [place] [address] Jayne Hamm NEUT # 3.1 103/ul Normal 1.4-6.5 [facility] Comment on above: Performed By: #### C BC #### [facility] [address] [place] [address] Jayne Hamm Neutrophils/100 WBC (Bld) 53.1 % Normal 43.0-75.0 [facility] Comment on above: Performed By: #### C BC #### [facility] [address] [place] [address] Jayne Hamm Platelet mean volume (Bld) [Entitic vol] 8.9 fL Critically low 9.5-13.5 [facility] Comment on above: Performed By: #### C BC #### [facility] [address] [place] [address] Jayne Cruzen PLT 265 103/ul Normal 150-450 [facility] Comment on above: Performed By: #### C BC #### [facility] [address] [place] [address] Jayne Cruzen RBC 4.35 106/ul Normal 4.20-5.40 [facility] Comment on above: Performed By: #### C BC #### [facility] [address] [place] [address] Jayne Hamm WBC 5.8 103/ul Normal 4.0-11.0 [facility] Comment on above: Performed By: #### C BC #### [facility] [address] [place] [address] Jayne Hamm PREG QUANT HCGon 06-25-2020 HCG QUANT 1.00 mIU/mL Normal [facility] Comment on above: Performed By: #### P REGQNT #### [facility] [address] [place] [address] Jaynejeremías Hamm HCG RANGE SEE BELOW Normal [facility] Comment on above: Result Comment: 5-50 0-1 WEEK 40-300 1-2 WEEKS 100-1,000 2-3 WEEKS 500-6,000 3-4 WEEKS 5,000-200,000 1-2 MONTHS 10,000-100,000 2-3 MONTHS 3,000-50,000 2ND TRIMESTER 1,000-50,000 3RD TRIMESTER Performed By: #### P REGQNT #### [facility] [address] [place] [address] Jayne Hamm PAP ACOG PANEL 2: 21 to 29on 05-06-2020 . . Normal [facility] Comment on above: Performed By: #### 4 [id number] #### [facility] [address] [place] [address] Jayne Hamm Age Gdln ACOG Testing 22- [facility] Comment on above: Performed By: #### 4 [id number] #### [facility] [address] [place] [address] Jayne Hamm DIAGNOSIS: Comment [facility] Comment on above: Result Comment: NEGA TIVE FOR INTRAEPITHELIAL LESION OR MALIGNANCY. Performed By: #### 4 [id number] #### [facility] [address] [place] [address] Jayne Hamm Methodology: Comment [facility] Comment on above: Result Comment: This liquid based SurePath(R) pap test was screened with the assistance of an image guided system. Performed By: #### 4 [id number] #### [facility] [address] [place], [place] [id number] Jayne Hamm Note: Comment [facility] Comment on above: Result Comment: The Pap smear is a screening test designed to aid in the detection of premalignant and malignant conditions of the uterine cervix. It is not a diagnostic procedure and should not be used as the sole means of detecting cervical cancer. Both false-positive and false-negative reports do occur. . Performed By: #### 4 [id number] #### [facility] [address] [place] [address] Jayne Hamm Performed by: Comment Normal [facility] Comment on above: Result Comment: Suman Rdz, Rotary Drill Rig Operator (ASCP) Performed By: #### 4 [id number] #### [facility] [address] [address] Jayne Noris Reflex Criteria: Comment Normal [facility] Comment on above: Result Comment: The HPV DNA reflex criteria were not met with this specimen result therefore, no HPV testing was performed. . Performed By: #### 4 [id number] #### [facility] [address] [place] [address] Jaynejeremías Hamm Specimen adequacy: Comment Normal [facility] Comment on above: Result Comment: Sati sfactory for evaluation. Endocervical and/or squamous metaplastic cells (endocervical component) are present. Performed By: #### 4 [id number] #### [facility] [address] [place] [address] Jayne Noris US PELVIS AND TRANSVAGon US [...] by: DARLINE ESPITIA Date: 2020-04-30 14:54 Normal [facility] Vital Signs Date Time Vital Sign Value Performing Clinician Facility 06-05-2024 10:48-0400 Body weight 80.34 kg [employer] DO Work Phone: [facility] 06-05-2024 10:48-0400 Diastolic blood pressure 64 mm[Hg] [employer] Work Phone: [facility] 06-05-2024 10:48-0400 Systolic blood pressure 100 mm[Hg] Won Rueda DO Work Phone: [facility] 12-10-2023 09:18-0400 Diastolic blood pressure 84 mm[Hg] Hill Jacobsen Work Phone: [facility] 12-10-2023 09:18-0400 Heart rate 101 /min Hill Jacobsen Work Phone: [facility] 12-10-2023 09:18-0400 Respiratory rate 12 /min Hill Jacobsen Work Phone: [facility] 12-10-2023 09:18-0400 Systolic blood pressure 132 mm[Hg] Hill Jacobsen Work Phone: [facility] 11-02-2023 14:27-0400 Body height 180.3 cm Earle Chen MD Work Phone: [facility] 11-02-2023 14:27-0400 Body mass index (BMI) [Ratio] 20.04 kg/m2 Earle Chen MD Work Phone: [facility] 11-02-2023 14:27-0400 Body weight 65.18 kg Earle Chen MD Work Phone: [facility] 11-02-2023 14:27-0400 Diastolic blood pressure 80 mm[Hg] Earle Chen MD Work Phone: [facility] 11-02-2023 14:27-0400 Systolic blood pressure 110 mm[Hg] Earle Chen MD Work Phone: [facility] 09-14-2023 11:30-0500 Body height 180.34 cm Lucila Arnett Other [facility] 09-14-2023 11:30-0500 Body mass index (BMI) [Ratio] 20.92 kg/m2 Lucila Arnett Other [employer] Other 09-14-2023 11:30-0500 Body weight 68.04 kg Lucila Melquiades Other [employer] Other 09-14-2023 11:30-0500 Body weight 68.03 kg [facility] 09-14-2023 11:30-0500 Diastolic blood pressure 68 mm[Hg] Lucila Melquiades Other [facility] 09-14-2023 11:30-0500 Respiratory rate 16 /min Lucila Melquiades Other [employer] Other 09-14-2023 11:30-0500 SaO2% (BldA) [Mass fraction] 100 % Lucila Melquiades Other [employer] Other 09-14-2023 11:30-0500 Systolic blood pressure 110 mm[Hg] Lucila Melquiades Other [facility] 08-03-2023 10:00-0500 Body height 180.34 cm Lucila Melquiades Other [employer] Other 08-03-2023 10:00-0500 Body mass index (BMI) [Ratio] 20.78 kg/m2 Lucila Arnett Other [employer] Other 08-03-2023 10:00-0500 Body weight 67.59 kg Lucila Melquiades Other [employer] Other 08-03-2023 10:00-0500 Diastolic blood pressure 66 mm[Hg] Lucila Vidyar Other [employer] Other 08-03-2023 10:00-0500 SaO2% (BldA) [Mass fraction] 98 % Lucila Melquiades Other [employer] Other 08-03-2023 10:00-0500 Systolic blood pressure 100 mm[Hg] Lucila Melquiades Other [employer] Other Encounters Encounter Date Encounter Type Care Provider Facility Start: 06-05-2024 End: 06-05-2024 Bamboo flowsheet Won Marybeth DO Work Phone: [facility] Start: 06-05-2024 End: 06-05-2024 Bamboo flowsheet Won Marybeth DO Work Phone: [facility] Start: 06-05-2024 End: 06-05-2024 Office outpatient visit 15 minutes Won Marybeth DO Work Phone: [facility] Comment on above: 33 [...] 03-31-2024 End: 03-31-2024 ambulatory WON R MARYBETH [facility] Start: 03-27-2024 End: 03-27-2024 ambulatory WON MARYBETH Not Available Start: 03-25-2024 End: 03-25-2024 ambulatory WON R [facility] Start: 03-13-2024 End: 03-13-2024 ambulatory PEDRO TABOR Not Available Start: 02-28-2024 End: 02-28-2024 ambulatory WON MARYBETH Not Available Start: 02-25-2024 End: 02-25-2024 ambulatory WON R [facility] Start: 02-13-2024 End: 02-13-2024 ambulatory WON MARYBETH Not Available Start: 01-30-2024 End: 01-30-2024 ambulatory WON MARYBETH Not Available Start: 01-21-2024 End: 01-21-20[facility] Start: 01-17-2024 End: 01-17-2024 ambulatory WON MARYBETH Not Available Start: 01-03-2024 End: 01-03-2024 ambulatory WON MARYBETH Not Available Start: 12-26-2023 End: 12-26-2023 ambulatory WON MARYBETH Not Available Start: 12-13-2023 End: 12-13-2023 ambulatory WON MARYBETH Not Available Start: 12-10-2023 End: 12-11-2023 ambulatory HAKEEM YODER [facility] Start: 12-10-2023 End: 12-10-2023 Encounter identifier Hill Jacobsen Work Phone: [facility] [place] Start: 12-06-2023 End: 12-07-2023 ambulatory HAKEEM YODER [facility] Start: 12-03-2023 End: 12-04-2023 ambulatory HAKEEM YODER [facility] Start: 11-29-2023 End: 11-30-2023 ambulatory HAKEEM BEBA [facility] Start: 11-26-2023 End: 11-27-2023 ambulatory HAKEEM BEBA [facility] Start: 11-23-2023 End: 11-24-2023 ambulatory HAKEEM YODER [facility] Start: 11-21-2023 End: 11-22-2023 ambulatory HAKEEM YODER [facility] Start: 11-19-2023 End: 11-20-2023 ambulatory 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 CONFIGURATION LUCILA ARNETT Facility:[facility] Start: 11-19-2023 End: 11-19-2023 Patient encounter procedure LUCILA ARNETT [facility] Start: 11-14-2023 End: 11-14-2023 ambulatory [facility] Work Phone: Start: 11-14-2023 End: 11-14-2023 Patient encounter procedure [facility] Physician [facility] Work Phone: Start: 11-02-2023 ambulatory EARLE CHEN Facility:[facility] Start: 11-02-2023 End: 11-02-2023 Office outpatient new 60 minutes Earle Chen MD Work Phone: [facility] [place] Comment on above: Endometriosis (Prima ry Dx); Pelvic pain; Myalgia of pelvic floor; Dysmenorrhea; Dyspareunia in female; Nausea and vomiting, unspecified vomiting type; Bladder pain; Anxiety Start: 10-17-2023 End: 10-17-2023 Patient encounter procedure [facility] Physician [facility] Work Phone: Start: 09-14-2023 End: 09-14-2023 ambulatory Lucila Arnett Other [employer] Other Start: 09-14-2023 Office outpatient vi sit 25 minutes Lucila Arnett [facility] Start: 09-14-2023 End: 09-14-2023 Patient encounter procedure [facility] Physician [facility] Start: 08-09-2023 End: 08-09-2023 ambulatory Lucila Arnett Other [employer] Other Start: 08-09-2023 Telephone encounter Lucila krueger [facility] Start: 08-03-2023 End: 08-03-2023 ambulatory Lucila Arnett Other [employer] Other Start: 08-03-2023 Office outpatient ne w 30 minutes Lucila Arnett [facility] Start: 08-03-2023 Telephone encounter Lucila Ni her [employer]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 Start: 07-12-2020 End: 07-13-[address] WON [...] AM EST Routine [facility] [address] [place] [id number] Won Rueda, DO [address] [place] [address] [facility] [facility] Start: 06-30-2024 End: 06-30-2024 Professional / ancillary services management 06/30/2024 10:00 AM EST Ancillary Procedure [facility] [address] [place] [id number] [facility] Start: 06-23-2024 End: 06-23-2024 Patient encounter procedure 06/23/2024 10:10 AM EST Routine [facility] [address] [place] [id number] Won Rueda, DO [address] [place] [address] [facility] Start: 06-05-2024 End: 06-05-2024 Patient encounter procedure 06/05/2024 10:40 AM EDT Routine [facility] [address] [facility] [place] [address] Won Rueda, [address] [place] [address] Arrived [facility] Comment on above: Arrived Start: 11-02-2023 End: 11-01-2024 MR Pelvis WO and W contrast IV MRI PELVIS WITH AND WITHOUT CONTRAST Imaging Routine Endometriosis Pelvic pain Expected: 11/02/2023, Expires: 11/01/2024 [facility] Comment on above: Expected: 11/02/2023 , Expires: 11/01/2024 Start: 10-17-2023 Patient referral [facility] Work Phone: Start: 04-20-2023 COVID-19 VACCINE ( season) COVID-19 VACCINE ( season) [facility] Start: 04-20-2023 Influenza vaccination INFLUENZA VACC INE (#1) [facility] Start: 2017 Screening for malign ant neoplasm of cervix CERVICAL CANCER SCREENING DISCUSSION [facility] Start: 11-08-2015 Hepatitis B vaccination HEP B VACCINE (1 of 3 - 19+ 3-dose series) [facility] Start: 11-08-2015 Third diphtheria, te tanus and acellular pertussis (DTaP) vaccination TDAP (ADULT) [facility] Start: 2012 Screening for Chlamy david trachomatis CHLAMYDIA SCREEN [facility] Start: 11-08-2011 HIV screening HIV SCREENING DISCUSSION [facility] Start: 11-08-2011 Vaccination for kale n papillomavirus HPV VACCINE ADOL (1 - 3-dose series) [facility] Start: 1996 Hepatitis C screening HEPATITI S C VIRUS SCREENING [facility] Start: 1996 Screening for Chlamy david trachomatis GONORRHEA SCREEN [facility] Start: 1996 Tetanus vaccination TETANUS [facility] Patient referral [facility] Work Phone: Payers Date Payer Category Payer Medicaid [place]ICA[place] [id number] 2024 Medicaid [id number] 2023 [employer] ( and others) [id number] 2023 [employer] ( and others) [facility] [id number] 2023-Present [address] [place] [address] [id number]. [id number] 2023 [employer] ( and others) [id number] 1996 Unknown [id number] 2.16.840.1.071097.3.579.2. 593 1996 Unknown [id number] 2.16.840.1.780003.3.579.2. 593 1996 Unknown [id number] 2.16.840.1.287595.3.579.2. 593 1996 Unknown [id number] 2.16.840.1.345336.3.579.2. 593 1996 Unknown [id number] 2.16.840.1.214520.3.579.2. 593 1996 Unknown [id number] 2.16.840.1.902977.3.579.2. 594 1996 Unknown [id number] 2.16.840.1.020490.3.579.2. 727 1996 Unknown [id number] 2.16.840.1.569953.3.579.2. 1143 1996 Unknown [id number] 2.16.840.1.784115.3.579.2. 1143 1996 Unknown [id number] 2.16.840.1.075085.3.579.2. 1143 1996 Unknown [id number] 2.16.840.1.014041.3.579.2. 1143 1996 Unknown [id number] 2.16.840.1.567874.3.579.2. 1143 1996 Unknown [id number] 2.840.1.176999.3.579.2. 1142 1996 Unknown [id number] 2.16.840.1.931530.3.579.2. 114 1996 Unknown [id number] 2.16840.1.029462.3.579.2. 1285 1996 Unknown [id number] 2.16840.1.232808.3.579.2. 1285 1996 Unknown [id number] 2.16840.1.175511.3.579.2. 1285 1996 Unknown [id number] 2.16840.1.116314.3.579.2. 1285 1996 Unknown [id number] 2.16840.1.702972.3.579.2. 1285 1996 Unknown [id number] 2.16840.1.667606.3.579.2. 1285 1996 Unknown [id number] 2.16840.1.596804.3.579.2. 1259 1996 Unknown [id number] 2.16.840.1.690681.3.579.2. 9 1996 Unknown [id number] 2.16.840.1.510926.3.579.2. 1258 1996 Unknown [id number] 2.16.840.1.207426.3.579.2. 1258 1996 Unknown [id number] 2.16.840.1.697665.3.579.2. 1258 1996 Unknown [id number] 2.16.840.1.656920.3.579.2. 1258 1996 Unknown [id number] 2.16.840.1.226566.3.579.2. 1258 1996 Unknown [id number] 2.16.840.1.102389.3.579.2. 1258 1996 Unknown [id number] 2.16.840.1.002403.3.579.2. 1258 1996 Unknown [id number] 2.16.840.1.182728.3.579.2. 1258 1996 Unknown [id number] 2.16.840.1.982478.3.579.2. 1258 1996 Unknown [id number] 2.16.840.1.159990.3.579.2. 1258 1996 Unknown [id number] 2.16.840.1.229506.3.579.2. 1258 1996 Unknown [id number] 2.16.840.1.121101.3.579.2. 9 1959 [employer] ( and others) [id number] 1959 [employer] ( and others) [id number] [employer] ( and others) [id number] 2.16.840.1.060757.19 Social History Date Type Detail Facility Start: 11-02-2023 Sex Assigned At [facility] Start: 09-30-2017 End: 11-02-2023 Tobacco smoking status NHIS Never smoked tobacco [facility] Start: 11-02-2023 Tobacco use and exposure Smokeless tobacco non-user [facility] Start: 11-02-2023 Alcoholic beverage intake Lifetime non-drinker (finding) [facility] Start: 11-02-2023 History of Social function [facility] Start: 1996 Sex assigned at Not on file [facility] Start: 1996 Sex Assigned At Female [facility] Start: 12-10-2023 Tobacco smoking status NHIS Unknown if ever smoked [facility] Start: 12-10-2023 Alcohol intake Alcohol Use Details [facility] Start: 09-04-2023 Sexual Orientation Lesbian, lynch or homosexual [facility] Start: 11-03-2023 [facility] Clinical Notes 06-25-2020 to 06-05-2024 Zakiya Traylor [...] ondansetron 4 mg disintegrating tablet - Active Mzyykkrn-Ilt-Tl-FA ( 1 + IRON PO) Daily RT [...] Past Medical History: Diagnosis Date Anxiety Depression ([facility]/HCC) Endometriosis OCD (obsessive compulsive disorder) ([facility]) PTSD (post-traumatic stress disorder) ([facility]) HISTORY PAST MEDICAL HISTORY SOCIAL HISTORY Past Medical History: Diagnosis Date Anxiety Depression ([facility]/HCC) Endometriosis OCD (obsessive compulsive disorder) ([facility]) PTSD (post-traumatic stress disorder) ([facility]) Social History Tobacco Use Smoking status: Not [...] nursing note reviewed. Exam conducted with a bond broker present. Vitals: There is no height or [...] Won Rueda DO documented in this encounter [facility] 11-19-2023 Evaluation + Plan note Diagnostic Tests PendingT3 Free 11/19/23Thyroid Perox.tpo Ab 11/19/23TgAb+Thyroglobulin,CHING or ARLEN 11/19/23 [facility] 11-02-2023 History of Present illness Narrative GYNECOLOGY CONSULT NOTE REASON FOR VISIT Endometriosis Pelvic pain HISTORY OF PRESENT ILLNESS Ms. Medrano is a 27 y.o. (NSVDx2) who presents for consultation regarding endometriosis, pelvic pain. Records review: Moved back from [place] to [place] (2021) First diagnosed in 2018 Has had [...] tried to get her medical records in [place], but they would not send them. She [...] She had a women's health doctor [facility] who told her she had stage IV endometriosis. She is no longer on the progesterone. Has tried vaginal valium does not help Her 2 previous pregnancies were with a previous partner. She and her are trying for another now. No BA in [place] Partner has not had a SA yet [...] in this encounter [facility] 09-14-2023 Evaluation note Encounter Date [...] educated on the risks and benefits of bed bug exterminator use. Risk assessment was done. Patient is [...] Pt to call with any worsening symptoms. [employer] Other 12-21-2023 Evaluation note* Encounter Date Diagnosis Assessment Notes Treatment Notes Treatment Clinical Notes Jul, Generalized anxiety disorder (ICD-10 - F41.1) Jul, Endometriosis (ICD-1 0 - N80.9) [employer] Other 12-15-2023 Evaluation note* Encounter Date Diagnosis [...] educated on the risks and benefits of bed bug exterminator use. Risk assessment was done as well [...] intractable, unspecified migraine type (ICD-10 - G43.909) [employer] Other 11-06-2020 NoteOPERATIVE NOTE OPERATION DATE: 06-25-20 ANESTHETIC:General. CARTON AND CAN SUPPLY SUPERVISOR:None. PREOPERATIVE DIAGNOSIS: 1. Dyspareunia. 2. Right and [...] lap, and needle counts were correct x2. [facility] Signed and Approved by: DR WON RUEDA . 07/30/2020 13:02:00[facility] note* Clinical Note Date No Information [facility] Work Phone: Discharge summary* Clinical Note Date No Information [facility] [employer] Work Phone: [facility] [employer] Other Evaluation note* Diagnosis Endometriosis- Primary Endometriosis, site unspecified Pelvic pain Unspecified symptom associated with female genital organs Myalgia of pelvic floor Dysmenorrhea Dyspareunia in female Nausea and vomiting, unspecified vomiting type Bladder pain Other symptoms involving urinary system Anxiety Anxiety state, unspecified documented in this encounter [facility] Diagnosis Onset Date Resolution Status Depression acute Generalized anxiety disorder acute Obsessive compulsive disorder acute PTSD (post-traumatic stress disorder) acute Depression acute Endometriosis acute Generalized anxiety disorder acute Obsessive compulsive disorder acute PTSD (post-traumatic stress disorder) acute TBI (traumatic brain injury) acute [facility] Work Phone: Evaluation note* Type Assessment Date No Information [facility] [employer] Work Phone: Evaluation note* Diagnosis 32 weeks gestation of Third trimester state, incidental H/O delivery, currently , first trimester Pelvic pain in female Unspecified symptom associated with female genital organs Cluster headache, not intractable, unspecified chronicity pattern Bilateral leg pain Pain in soft tissues of limb documented in this encounter [facility] Clinical Note Date No Information [facility] Work Phone: History general Narrative - Reported* Type Description Date Medical History Anxiety Medical History Stage 4 Endometriosis Medical History Depression with manic episodes Medical History OCD Medical History PTSD Medical History TBI Surgical History Endometriosis surgery x2 Surgical History [place] teeth Surgical History Injections in cervix [facility] [employer] Other History of Present illness Narrative* Encounter Date Complaint History Of Prese nt Illness No Information [facility] [employer] Phone: Hospital course Narrative No data available for this section [facility] No data available for this section [facility]* Date Instruction Additional Infor mation No Information [facility] [employer] Work Phone: Progress note No data available for this section [facility]* Clinical Note Date No Information [facility] Work Phone: Reason for referral (narrative)* Consultation (Routine) - New Request Specialty Diagnoses / Procedures Referred By Contgerardo t Referred To Contact Psychology Diagnoses Pelvic pain Anxiety Earle Chen MD [address] [place] [address] Oksana Luu, PhD [address] [place] [address] Referral ID Status Reason Start Date Expiration Date V isits Requested Visits Authorized [id number] New Request 11/02/2023 11/26/2024 1 1 * Consultation (Routine) - New Request Specialty Diagnoses / Procedures Referred By Contac t Referred To Contact Integrative Medicine Diagnoses Pelvic pain Nausea and vomiting, unspecified vomiting type Earle Chen MD [address] [place] [address] Referral ID Status Reason Start Date Expiration Date V isits Requested Visits Authorized [id number] New Request 11/02/2023 11/26/2024 1 1 * Consultation (Routine) - New Request Specialty Diagnoses / Procedures Referred By Contac t Referred To Contact Gynecology Diagnoses Pelvic pain Myalgia of pelvic floor Bladder pain Earle Chen MD [address] [place] [address] Referral ID Status Reason Start Date Expiration Date V isits Requested Visits Authorized [id number] New Request 11/02/2023 11/26/2024 1 1 * MRI/CAT Scan (Routine) - New Request Specialty Diagnoses / Procedures Referred By Contac t Referred To Contact Diagnoses Endometriosis Pelvic pain Procedures MRI PELVIS WITH AND WITHOUT CONTRAST LA MRI, PELVIS, COMBO Earle Chen MD [address] [place] [address] Referral ID Status Reason Start Date Expiration Date V isits Requested Visits Authorized [id number] New Request 11/02/2023 11/26/2024 [address] [facility] Reason For [...] Diagnosis 1 Endometriosis (N80.9 ) Referral Organization [facility] [employer] [facility] Referring Provider First Name Lucila Referring Provider Last Name Steveacher Referring Provider Specialty Nurse Pract itioner Referred Organization [facility] Referred Provider Jena Suresh Referred Address ,[place], [place],[address] Referred Provider Specialty OB - Gynecol ogy Referral Priority Routine General Notes Lesley Bowman 01:18:58 PM >pt has west. we do not take this insurance. we take east. pt will need to update this with [facility] if she has relocated or only here for a short period of time. I called pt but her mail box is full. Reason *FU 08/06 CALL taryn walton Diagnosis 1 History of traumatic brain injury (Z87.820) Diagnosis 2 Migraine without sta tus migrainosus, not intractable, unspecified migraine type (G43.909) Referral Organization [facility] [employer] Referring Provider First Name Lucila Referring Provider Last Name Steveacher Referring Provider Specialty Nurse Pract itioner Referred Organization [facility] Referred Provider Herbie Arroyo Referred Address [address] [place], [place],[address] Referred Provider Specialty Neurology Referral Priority Routine [...] Diagnosis 1 Endometriosis (N80.9 ) Referral Organization [facility] Referring Provider First Name Lucila Referring Provider Last Name Melquiades Referring Provider Specialty Nurse Pract itioner Referred Organization [facility] Referred Address [address] [place], [place],[address] Referred Provider Specialty Endocrinolog y Referral Priority [...] and content) DATE CREATED AUTHOR [facility]15/2020 [facility] DATE CREATED AUTHOR AUTHOR'S ORGANIZ ATION 11/03/2023 [facility] DATE CREATED AUTHOR AUTHOR'S ORGANIZ ATION 11/20/2023 [facility] DATE CREATED AUTHOR AUTHOR'S ORGANIZ ATION 12/15/2023 [facility] DATE CREATED AUTHOR AUTHOR'S ORGANIZ ATION 04/01/2024 [facility] DATE CREATED AUTHOR AUTHOR'S ORGANIZ ATION 06/07/2024 [facility] dical Specialists EPIC REASON FOR VISIT (unrecogniz ed section and content) Reason Comments Consult Pt diagnosis with En dometriosis in 2018. Patient desire . Specialty Diagnoses / Procedures Referred By Harris gautam Referred To Contact WRAPAROUND FACILITATOR Diagnoses Endometriosis Lucila Arnett, MANAGER CONFIGURATION [address] [facility] [place] [address] [facility] [address] [place] [address] Referral ID Status Reason Start Date Expiration Date V isits Requested Visits Authorized [id number] New Request 10/23/2023 11/16/2024 1 1 Care Teams (unrecognized sec tion and content) Team Status: Active Member Role Status Dates Lucila Arnett APRN MACHINE REBUILDER-C Primary Care Provider Active Team Status: Inactive Member Role Status Dates Lucila Arnett APRN MACHINE REBUILDER-C Attending Provider Act vinicius Start: September 14, 2023 End: September 14, 2023 Team Status: Inactive Member Role Status Dates Lucila Arnett APRN MACHINE REBUILDER-C Primary Care Provider, Attending Provider Active Start: October 17, 2023 End: October 17, 2023 Team Status: Inactive Member Role Status Dates Lucila Arnett APRN MACHINE REBUILDER-C Primary Care Provider, Attending Provider Active Start: November 14, 2023 End: November 14, 2023 Name Effective Dates (start - stop) Status Members No Information Theatre Program Director Relationship Specialty Start Date End Date Lucila Arnett NP [address] [place] [id number] PCP - General Family Medicine 11/11/23 Theatre Program Director Relationship Specialty Start Date End Date Lucila Arnett NP [address] [place] [id number] PCP - General Family Medicine 11/11/23 Goals [...] ON THE PRIMARY CLINICAL RECORDS. [facility]. provides no warranty or guarantee of the accuracy or completeness of information in this document.
[2024-06-13 11:14] VITALS: BP 121/72; PULSE 85
== END 2024-06-13 11:45 | disposition home or self-care (01) ==
LOC: US 07:29 → FBC 10:50
PROVIDERS: PCP Nurse Practitioner Family; Visit Provider Obstetrics & Gynecology
DX: O26.893 Other specified pregnancy related conditions, third trimester (principal); Z3A.33 33 weeks gestation of pregnancy
CPT/HCPCS: 76818

== ENCOUNTER 2024-06-17 07:11 | Outpatient (OUT) | payer OTHER, SELFPAY ==
--- OUTSIDE RECORDS SUMMARY | 2024-06-17 07:14 | XMS_ITS | CCD ---
Author Organization [facility] Care Team Providers Care Clerk General Name Role Phone MARYBETH, DR UPTON Admitting [...] Unavailable Unavailable Primary Care Provider Unavailabl e GIUSEPPEAL, EARLE Attending Unavailable LUCILA ARNETT Referring Unavailable LUCILA ARNETT Primary Care Physician [phone] KHADRA ARNETT Attending Unava ilable KHADRA ARNETT [...] Drug Allergy 0 [facility] Repository (9 sources) traMADol; Translations: [TRAMADOL] Drug Allergy 4 Unknown [facility] (9 sources) Lavender Oil; Translations: [LAVENDER OIL] Drug allergy 4 Unknown [facility] (1 source) lavender (Lavandula angustifolia) Allergy to substance 4 Unknown Reaction [facility] (4 sources) GALCANEZUMAB-GNL M; Translations: [GALCANEZUMAB-GN LM] Propensity to adverse reactions to drug (disorder) 4 [facility] Repository (3 sources) Galcanezumab Propensity to adverse reactions 4 [facility] Work Phone: Medications Current Medications [...] oral solution (1 source) alpha-Adrenergic Agonist, Uncompetitive V-ecbbcl-M-aspartate Receptor Antagonist, Sigma-1 Agonist Start : 09-30 [...] Daily 30 capsule 6 05/05/2024 05/05/2025 Active Rkxvxcha-Cpm-Qk-FA ( 1 + IRON PO) (3 sources) Vafhlwze-Iwc-Vl-FA ( 1 + IRON PO) Take by [...] q6hr, # 10 tab(s), Refills(s) 0, Pharmacy: [facility] Start Date: 09/21/18 Status: [...] UA Negative Negative - 4(70) +++ mg/dL [facility] Blood, UA Positive Negative - 50 Jt/mcL [facility] Comment on above: trace-intact Clarity, UA Clear [facility] Color, UA Yellow [facility] Glucose, UA Negative Negative - 2000(110) ++++ mg/dL [facility] Interpretation and review of laboratory results Abnormal [facility] Ketones, UA Negative Negative - 160(16) ++++ mg/dL [facility] Leukocytes, UA Negative Negative - 500+++ [place]/mcL [facility] Nitrite, UA Negative Negative - Positive [facility] pH, UA 7 5 - 9 [facility] Protein, UA Negative Negative - 2000(20) ++++ mg/dL [facility] Spec Grav, UA 1.02 1 - 1.03 [facility] Urobilinogen, UA 1.0 0.2 - 12 mg/dL [facility] HCG.beta subunit Qnon 2023 hCG Quant [id number] mIU/mL Normal [facility] Comment on above: Order Comment: Pregn [...] method. Performed By: #### 2 1198-7 #### [facility] [address] [place] [address] HCG.beta subunit Qnon 2023 hCG Quant [id number] mIU/mL Normal [facility] Comment on above: Order Comment: Pregn phill [...] method. Performed By: #### 2 1198-7 #### [facility] [address] [place] [address] HCG.beta subunit Qnon 2023 hCG Quant [id number] mIU/mL Normal [facility] Comment on above: Order Comment: Pregn phill [...] method. Performed By: #### 2 1198-7 #### [facility] [address] [place] [address] [facility] hCG Quant [id number] mIU/mL Normal [facility] Comment on above: Order Comment: Pregn phill [...] method. Performed By: #### 2 1198-7 #### [facility] [address] [place] [address] HCG.beta subunit Qnon 2023 hCG Quant [id number] mIU/mL Normal [facility] Comment on above: Order Comment: Pregn phill [...] method. Performed By: #### 2 1198-7 #### [facility] [address] [place] [address] HCG.beta subunit Qnon 2023 hCG Quant 776 mIU/mL Normal [facility] Comment on above: Order Comment: Pregn phill [...] method. Performed By: #### 2 1198-7 #### [facility] [address] [place] [address] HCG.beta subunit Qnon 2023 hCG Quant 250 mIU/mL Normal [facility] Comment on above: Order Comment: Pregn phill [...] method. Performed By: #### 2 1198-7 #### [facility] [address] [place] [address] .Thyroglobulin by IMAon 04- Thyroglobulin [Mass/Vol] 5.0 ng/mL Invalid Interpretation Code 1.5-38.5 [facility] Comment on above: Result Comment: Acco rding [...] John Vish Immunometric Assay Performed at: [facility] [id number] [place], [place] [id number] PhD Johanny Nieto Performed By: #### 2 274807, [id number], 41003564, [id number], [id number], [id number], [id number] #### [facility] Laboratory [address] [place] [address] T3 Freeon 11-20-2023 Free T3 [Mass/Vol] 3.2 pg/mL Invalid Interpretation Code 2.0-4.4 [facility] Comment on above: Result Comment: Perf ormed at: [id number] [place], [place] [id number] PhD Johanny Nieto Performed By: #### 2 114848, [id number], [id number], 0024242, [id number], [id number], [id number] #### [facility] Laboratory [address] [place] [address] TgAb+Thyroglobulinon 024 Thyroglobulin Ab Qn [IU]/mL Invalid Interpretation Code 0.0-0.9 [facility] Comment on above: Result Comment: Thyr oglobulin Antibody measured by QWiPS Methodology It should be noted that the presence of thyroglobulin antibodies may not be pathogenic nor diagnostic, especially at very low levels. The assay vpk teacher has found that four percent of individuals without evidence of thyroid disease or autoimmunity will have positive TgAb levels up to 4 IU/mL. Performed at: [facility] [address] [place] [id number] PhD Johanny Nieto Performed By: #### 2 839175, [id number], 17135562, 7543329, [id number], [id number], [id number] #### [facility] Laboratory [address] [place] [address] Thyroid Perox.tpo Abon 11-19 TPO Ab Qn [IU]/mL Invalid Interpretation Code 0-34 [facility] Comment on above: Result Comment: Perf ormed at: [facility] [address] [place], [place] [id number] PhD Johanny Nieto Performed By: #### 2 569572, [id number], 32445173, 5437017, [id number], [id number], [id number] #### [facility] Laboratory [address] [place] [address] BhCG Quanton 11-19-2023 HCG.beta subunit Qn 86 m[IU]/mL High 1-3 [facility] Comment on above: Result Comment: 'F N ON < 1 - 3' ' 0.2 - 1 WEEK = 5 TO 50' ' 1 - 2 WEEKS = 50 - 500' ' 2 - 3 WEEKS = 100 - 5000' ' 3 - 4 WEEKS = 500 - 59277' ' 4 - 5 WEEKS = 1000 - 51773' ' 5 - 6 WEEKS = 40388 - 711353' ' 6 - 8 WEEKS = 38392 - 348894' ' 8 - 12 WEEKS = 67138 - 028441' Performed By: #### 2 [id number] #### [facility] Laboratory [address] [place] [address] CHEMISTRYOrdered By: SYSTEM SYSTEM on 11-19-2023 HCG.beta [...] 3 - 4 WEEKS = 500 - 50728' ' 4 - 5 WEEKS = 1000 - 89355' ' 5 - 6 WEEKS = 17220 - 532182' ' 6 - 8 WEEKS = 37600 - 967254' ' 8 - 12 WEEKS = 66525 - 062121' Iron [Mass/Vol] 161 ug/dL High 35 - 153 mcg/dL Remisol Chem Iron binding capacity [Mass/Vol] 316 ug/dL Normal 250 - 400 mcg/dL [facility] Transferrin [Mass/Vol] 226 mg/dL Normal 200 - 370 mg/dL [facility] TSH Qn 1.53 m[IU]/L Normal 0.34 - 5.60 mcIU/mL Remisol Chem Consent for Treatmenton Consent for Treatment [id number] #1.00TIFF Normal [facility] Ironon 11-19-2023 Iron [Mass/Vol] 161 microgram/dL High 35-153 Fis [facility] Comment on above: Performed By: #### 2 195322, 21763345, 77534646, 2588558, [id number], 349523289, [id number] #### [facility] Laboratory [address] [place] [address] Physician Orderon 11-19-2023 Physician Order [id number] #1.00TIFF Normal [facility] TIBC Calculatedon 11-19-2023 Iron binding capacity [Mass/Vol] 316 microgram/dL Normal 250-400 [facility] Comment on above: Performed By: #### 2 542105, 41557796, 67325114, 8862272, 280598524, [id number], [id number] #### [facility] Laboratory [address] [place] [id number] Transferrin [Mass/Vol] 226 mg/dL Normal 200-370 [facility] Comment on above: Performed By: #### 2 624534, 50578920, 90824229, 3565287, 353342842, [id number], [id number] #### [facility] Laboratory [address] [place] [address] TSH With T4fr Reflexon 11-18 TSH Qn 1.53 m[IU]/L Normal 0.34-5.60 [facility] Comment on above: Performed By: #### 2 168562, 23782219, 37902928, 9459430, 836261608, [id number], [id number] #### [facility] [address] [place] [address] TSHon 07-12-2020 TSH 0.756 uIU/mL Normal 0.470-4.680 [facility] Comment on above: Performed By: #### T SH #### [facility] [address] [place], [place] [address] Jayne Hamm TSH RANGE SEE BELOW Normal [facility] Comment on above: Result Comment: <0.3 4 UIU/ml HYPERTHYROID 0.34-5.60 UIU/ml EUTHYROID >5.60 UIU/ml HYPOTHYROID Performed By: #### T SH #### [facility] [address] [place] [id number] Jayne Noris CBC AUTO DIFFon 06-25-2020 BASO # 0.1 103/ul Normal 0.0-0.1 [facility] Comment on above: Performed By: #### C BC #### [facility] [address] [place] [id number] Jayne Noris Basophils/100 WBC (Bld) 1.2 % Normal 0.2-2.0 [facility] Comment on above: Performed By: #### C BC #### [facility] [address] [place] [address] Jayne Noris EO # 0.2 103/ul Normal 0.0-0.7 [facility] Comment on above: Performed By: #### C BC #### [facility] [address] [place] [address] Jayne Noris Eosinophils/100 WBC (Bld) 2.6 % Normal 0.9-7.0 [facility] Comment on above: Performed By: #### C BC #### [facility] [address] [place] [address] Jayne Noris Erythrocyte distribution width (RBC) [Ratio] 12.0 % Normal 11.0-15.0 [facility] Comment on above: Performed By: #### C BC #### [facility] [address] [place], [place] [id number] Jayne Noris Hematocrit (Bld) [Volume fraction] 40.7 % Normal 36.0-48.0 [facility] Comment on above: Performed By: #### C BC #### [facility] [address] [place], [place] [id number] Jayne Noris Hemoglobin (Bld) [Mass/Vol] 13.6 g/dL Normal 12.0-16.0 [facility] Comment on above: Performed By: #### C BC #### [facility] [address] [place] [address] Jayne Noris IG # 0.01 10e3/ul Normal 0.00-0.03 [facility] Comment on above: Performed By: #### C BC #### [facility] [address] [place], [place] [id number] Jayne Noris IG % 0.2 % Normal 0.0-0.5 [facility] Comment on above: Performed By: #### C BC #### [facility] [address] [place], [place] [id number] Jayne Noris LYMPH # 1.9 103/ul Normal 1.2-3.8 [facility] Comment on above: Performed By: #### C BC #### [facility] [address] [place], [place] [id number] Jayne Noris Lymphocytes/100 WBC (Bld) 32.5 % Normal 20.5-60.0 [facility] Comment on above: Performed By: #### C BC #### [facility] [address] [place], [place] [id number] Jayne Noris MANUAL DIFF REQ NO Normal [facility] Comment on above: Performed By: #### C BC #### [facility] [address] [place], [place] [id number] Jayne Noris MCH (RBC) [Entitic mass] 31.3 pg Normal 26.7-34.0 [facility] Comment on above: Performed By: #### C BC #### [facility] [address] [place], [place] [id number] Jayne Noris MCHC (RBC) [Mass/Vol] 33.4 g/dL Normal 29.9-35.2 [facility] Comment on above: Performed By: #### C BC #### [facility] [address] [place] [address] Jayne Noris MCV (RBC) [Entitic vol] 93.6 fL Normal 81.0-99.0 [facility] Comment on above: Performed By: #### C BC #### [facility] [address] [place], [place] [address] Jayne Noris MONO # 0.6 103/ul Normal 0.3-0.8 [facility] Comment on above: Performed By: #### C BC #### [facility] [address] [place], [place] [id number] Jayne Noris Monocytes/100 WBC (Bld) 10.4 % Normal 1.7-12.0 [facility] Comment on above: Performed By: #### C BC #### [facility] [address] [place] [address] Jayne Hamm NEUT # 3.1 103/ul Normal 1.4-6.5 [facility] Comment on above: Performed By: #### C BC #### [facility] [address] [place] [address] Jayne Hamm Neutrophils/100 WBC (Bld) 53.1 % Normal 43.0-75.0 [facility] Comment on above: Performed By: #### C BC #### [facility] [address] [place] [address] Jayne Hamm Platelet mean volume (Bld) [Entitic vol] 8.9 fL Critically low 9.5-13.5 [facility] Comment on above: Performed By: #### C BC #### [facility] [address] [place] [address] Jayne Cruzen PLT 265 103/ul Normal 150-450 [facility] Comment on above: Performed By: #### C BC #### [facility] [address] [place] [address] Jayne Cruzen RBC 4.35 106/ul Normal 4.20-5.40 [facility] Comment on above: Performed By: #### C BC #### [facility] [address] [place] [address] Jayne Hamm WBC 5.8 103/ul Normal 4.0-11.0 [facility] Comment on above: Performed By: #### C BC #### [facility] [address] [place] [address] Jayne Hamm PREG QUANT HCGon 06-25-2020 HCG QUANT 1.00 mIU/mL Normal [facility] Comment on above: Performed By: #### P REGQNT #### [facility] [address] [place] [address] Jaynejeremías Hamm HCG RANGE SEE BELOW Normal [facility] Comment on above: Result Comment: 5-50 0-1 WEEK 40-300 1-2 WEEKS 100-1,000 2-3 WEEKS 500-6,000 3-4 WEEKS 5,000-200,000 1-2 MONTHS 10,000-100,000 2-3 MONTHS 3,000-50,000 2ND TRIMESTER 1,000-50,000 3RD TRIMESTER Performed By: #### P REGQNT #### [facility] [address] [place] [address] Jayne Hamm PAP ACOG PANEL 2: 21 to 29on 05-06-2020 . . Normal [facility] Comment on above: Performed By: #### 4 [id number] #### [facility] [address] [place] [address] Jayne Hamm Age Gdln ACOG Testing 22- [facility] Comment on above: Performed By: #### 4 [id number] #### [facility] [address] [place] [address] Jayne Hamm DIAGNOSIS: Comment [facility] Comment on above: Result Comment: NEGA TIVE FOR INTRAEPITHELIAL LESION OR MALIGNANCY. Performed By: #### 4 [id number] #### [facility] [address] [place] [address] Jayne Hamm Methodology: Comment [facility] Comment on above: Result Comment: This liquid based SurePath(R) pap test was screened with the assistance of an image guided system. Performed By: #### 4 [id number] #### [facility] [address] [place], [place] [id number] Jayne Hamm Note: Comment [facility] Comment on above: Result Comment: The Pap smear is a screening test designed to aid in the detection of premalignant and malignant conditions of the uterine cervix. It is not a diagnostic procedure and should not be used as the sole means of detecting cervical cancer. Both false-positive and false-negative reports do occur. . Performed By: #### 4 [id number] #### [facility] [address] [place] [address] Jayne Hamm Performed by: Comment Normal [facility] Comment on above: Result Comment: Suman Rdz, Screen Printer (ASCP) Performed By: #### 4 [id number] #### [facility] [address] [place] [address] Jayne Noris Reflex Criteria: Comment Normal [facility] Comment on above: Result Comment: The HPV DNA reflex criteria were not met with this specimen result therefore, no HPV testing was performed. . Performed By: #### 4 [id number] #### [facility] [address] [place] [address] Jaynejeremías Hamm Specimen adequacy: Comment Normal [facility] Comment on above: Result Comment: Sati sfactory for evaluation. Endocervical and/or squamous metaplastic cells (endocervical component) are present. Performed By: #### 4 [id number] #### [facility] [address] [place] [address] Jayne Noris US PELVIS AND TRANSVAGon US [...] DARLINE ESPITIA Date: 2020-04-30 14:54 Normal [facility] Vital Signs Date Time Vital Sign Value Performing Clinician Facility 06-05-2024 10:48-0400 Body weight 80.34 kg [employer] DO Work Phone: [facility] 06-05-2024 10:48-0400 Diastolic blood pressure 64 mm[Hg] [employer] Work Phone: [facility] 06-05-2024 10:48-0400 Systolic blood pressure 100 mm[Hg] Won Rueda DO Work Phone: [facility] 12-10-2023 09:18-0400 Diastolic blood pressure 84 mm[Hg] Hill Jacobsen Work Phone: [facility] 12-10-2023 09:18-0400 Heart rate 101 /min Hill Jacobsen Work Phone: [facility] 12-10-2023 09:18-0400 Respiratory rate 12 /min Hill Jacobsen Work Phone: [facility] 12-10-2023 09:18-0400 Systolic blood pressure 132 mm[Hg] Hill Jacobsen Work Phone: [facility] 11-02-2023 14:27-0400 Body height 180.3 cm Earle [...] [place] 09-14-2023 11:30-0500 Body height 180.34 cm Lucial Arnett Other [facility] 09-14-2023 11:30-0500 Body mass index (BMI) [Ratio] 20.92 kg/m2 Lucila Arnett Other Curse Other 09-14-2023 11:30-0500 Body weight 68.04 kg Luclia Melquiades Other Curse Other 09-14-2023 11:30-0500 Body weight 68.03 kg [facility] 09-14-2023 11:30-0500 Diastolic blood pressure 68 mm[Hg] Lucila Melquiades Other [facility] 09-14-2023 11:30-0500 Respiratory rate 16 /min Lucila Melquiades Other Curse Other 09-14-2023 11:30-0500 SaO2% (BldA) [Mass fraction] 100 % Lucila Melquiades Other Curse Other 09-14-2023 11:30-0500 Systolic blood pressure 110 mm[Hg] Lucila Melquiades Other [facility] 08-03-2023 10:00-0500 Body height 180.34 cm Lucila Melquiades Other Curse Other 08-03-2023 10:00-0500 Body mass index (BMI) [Ratio] 20.78 kg/m2 Lucila Arnett Other Curse Other 08-03-2023 10:00-0500 Body weight 67.59 kg Lucila Melquiades Other Curse Other 08-03-2023 10:00-0500 Diastolic blood pressure 66 mm[Hg] Lucila Vidyar Other Curse Other 08-03-2023 10:00-0500 SaO2% (BldA) [Mass fraction] 98 % Lucila Melquiades Other Curse Other 08-03-2023 10:00-0500 Systolic blood pressure 100 mm[Hg] Lucila Melquiades Other Curse Other Encounters Encounter Date Encounter Type Care Provider Facility Start: 06-05-2024 End: 06-05-2024 Bamboo flowsheet Won Marybeth DO Work Phone: [facility] Start: 06-05-2024 End: 06-05-2024 Bamboo flowsheet Won Marybeth DO Work Phone: [facility] Start: 06-05-2024 End: 06-05-2024 Office outpatient visit 15 minutes Won Marybeth DO Work Phone: [facility] Comment on above: 32 [...] 03-31-2024 End: 03-31-2024 ambulatory WON R [facility] Start: 03-27-2024 End: 03-27-2024 ambulatory WON MARYBETH Not Available Start: 03-25-2024 End: 03-25-2024 ambulatory WON R [facility] Start: 03-13-2024 End: 03-13-2024 ambulatory PEDRO TABOR Not Available Start: 02-28-2024 End: 02-28-2024 ambulatory WON MARYBETH Not Available Start: 02-25-2024 End: 02-25-2024 ambulatory WON R [facility] Start: 02-13-2024 End: 02-13-2024 ambulatory WON MARYBETH Not Available Start: 01-30-2024 End: 01-30-2024 ambulatory WON MARYBETH Not Available Start: 01-21-2024 End: 01-21-20[facility] Start: 01-17-2024 End: 01-17-2024 ambulatory WON MARYBETH Not Available Start: 01-03-2024 End: 01-03-2024 ambulatory WON MARYBETH Not Available Start: 12-26-2023 End: 12-26-2023 ambulatory WON MARYBETH Not Available Start: 12-13-2023 End: 12-13-2023 ambulatory WON MARYBETH Not Available Start: 12-10-2023 End: 12-11-2023 ambulatory HAKEEM YODER [facility] Start: 12-10-2023 End: 12-10-2023 Encounter identifier Hill Jacobsen Work Phone: [facility] Start: 12-06-2023 End: 12-07-2023 ambulatory HAKEEM YODER [facility] Start: 12-03-2023 End: 12-04-2023 ambulatory HAKEEM YODER [facility] Start: 11-29-2023 End: 11-30-2023 ambulatory HAKEEM BEBA [facility] Start: 11-26-2023 End: 11-27-2023 ambulatory HAKEEM BEBA [facility] Start: 11-23-2023 End: 11-24-2023 ambulatory HAKEEM YODER [facility] Start: 11-21-2023 End: 11-22-2023 ambulatory HAKEEM YODER [facility] Start: 11-19-2023 End: 11-20-2023 ambulatory MASSEUR/MASSEUSE LUCILA ARNETT Facility:[facility] Start: 11-19-2023 End: 11-19-2023 Patient encounter procedure LUCILA ARNETT [facility] Start: 11-14-2023 End: 11-14-2023 ambulatory [facility] Work Phone: Start: 11-14-2023 End: 11-14-2023 Patient encounter procedure [facility] Physician [facility] Work Phone: Start: 11-02-2023 ambulatory EARLE CHEN Facility:[facility] Start: 11-02-2023 End: 11-02-2023 Office outpatient new 60 minutes Earle Chen MD Work Phone: [facility] Comment on above: Endometriosis (Prima ry Dx); Pelvic pain; Myalgia of pelvic floor; Dysmenorrhea; Dyspareunia in female; Nausea and vomiting, unspecified vomiting type; Bladder pain; Anxiety Start: 10-17-2023 End: 10-17-2023 Patient encounter procedure [facility] Physician [facility] Work Phone: Start: 09-14-2023 End: 09-14-2023 ambulatory Lucila Arnett Other Curse Other Start: 09-14-2023 Office outpatient vi sit 25 minutes Lucila [facility] Start: 09-14-2023 End: 09-14-2023 Patient encounter procedure [facility] Physician [facility] Start: 08-09-2023 End: 08-09-2023 ambulatory Lucila Arnett Other Curse Other Start: 08-09-2023 Telephone encounter [facility] Start: 08-03-2023 End: 08-03-2023 ambulatory Lucila Arnett Other Curse Other Start: 08-03-2023 Office outpatient ne w 30 minutes Lucila [facility] Start: 08-03-2023 Telephone encounter Lucila Ni her [employer] Start: 07-12-2020 End: 07-13-[address] WON [...] [facility] [address] [place] [id number] Won Rueda, DO [address] [place] [address] [facility] Start: 06-30-2024 End: 06-30-2024 Professional / ancillary services management 06/30/2024 10:00 AM EST Ancillary Procedure [facility] [address] [place] [id number] [facility] Start: 06-23-2024 End: 06-23-2024 Patient encounter procedure 06/23/2024 10:10 AM EST Routine [facility] [facility] [address] [place] [id number] Won Rueda, DO [address] [place] [address] [facility] Start: 06-05-2024 End: 06-05-2024 Patient encounter procedure 06/05/2024 10:40 AM EDT Routine [facility] [address] [place] [address] Won Rueda, [address] [place] [address] Arrived [facility] Comment on above: Arrived Start: 11-02-2023 End: 11-01-2024 MR Pelvis WO and W contrast IV MRI PELVIS WITH AND WITHOUT CONTRAST Imaging Routine Endometriosis Pelvic pain Expected: 11/02/2023, Expires: 11/01/2024 [facility] Comment on above: Expected: 11/02/2023 , Expires: 11/01/2024 Start: 10-17-2023 Patient referral [facility] Work Phone: Start: 04-20-2023 COVID-19 VACCINE ( season) COVID-19 VACCINE ( season) [facility] [...] [place] Start: 1996 Tetanus vaccination TETANUS [facility] Patient referral [facility] Work Phone: Payers Date Payer Category Payer Medicaid [place]ICAID [place] [id number] 2024 Medicaid [id number] 2023 [employer] ( and others) [id number] 2023 [employer] ( and others) [facility] [id number] 2023-Present [address] [place] [address] [id number]. [id number] 2023 [employer] ( and others) [id number] 1996 Unknown [id number] 2.16.840.1.257187.3.579.2. 593 1996 Unknown [id number] 2.16.840.1.131856.3.579.2. 593 1996 Unknown [id number] 2.16.840.1.508216.3.579.2. 593 1996 Unknown [id number] 2.16.840.1.814766.3.579.2. 593 1996 Unknown [id number] 2.16.840.1.665729.3.579.2. 593 1996 Unknown [id number] 2.16.840.1.874091.3.579.2. 594 1996 Unknown [id number] 2.16.840.1.588069.3.579.2. 727 1996 Unknown [id number] 2.16.840.1.830377.3.579.2. 1143 1996 Unknown [id number] 2.16.840.1.232052.3.579.2. 1143 1996 Unknown [id number] 2.16.840.1.148673.3.579.2. 1143 1996 Unknown [id number] 2.16.840.1.051170.3.579.2. 1143 1996 Unknown [id number] 2.16.840.1.786105.3.579.2. 1143 1996 Unknown [id number] 2.840.1.494964.3.579.2. 1142 1996 Unknown [id number] 2.16.840.1.990234.3.579.2. 114 1996 Unknown [id number] 2.16840.1.279447.3.579.2. 1285 1996 Unknown [id number] 2.16840.1.722038.3.579.2. 1285 1996 Unknown [id number] 2.16840.1.538942.3.579.2. 1285 1996 Unknown [id number] 2.16840.1.602664.3.579.2. 1285 1996 Unknown [id number] 2.16840.1.855262.3.579.2. 1285 1996 Unknown [id number] 2.16840.1.722886.3.579.2. 1285 1996 Unknown [id number] 2.16840.1.106966.3.579.2. 1259 1996 Unknown [id number] 2.16.840.1.052553.3.579.2. 9 1996 Unknown [id number] 2.16.840.1.466469.3.579.2. 1258 1996 Unknown [id number] 2.16.840.1.039094.3.579.2. 1258 1996 Unknown [id number] 2.16.840.1.113906.3.579.2. 1258 1996 Unknown [id number] 2.16.840.1.773405.3.579.2. 1258 1996 Unknown [id number] 2.16.840.1.646027.3.579.2. 1258 1996 Unknown [id number] 2.16.840.1.466389.3.579.2. 1258 1996 Unknown [id number] 2.16.840.1.025492.3.579.2. 1258 1996 Unknown [id number] 2.16.840.1.282560.3.579.2. 1258 1996 Unknown [id number] 2.16.840.1.981409.3.579.2. 1258 1996 Unknown [id number] 2.16.840.1.256049.3.579.2. 1258 1996 Unknown [id number] 2.16.840.1.502752.3.579.2. 1258 1996 Unknown [id number] 2.16.840.1.166681.3.579.2. 9 1959 [employer] ( and others) [id number] 1959 [employer] ( and others) [id number] [employer] ( and others) [id number] 2.16.840.1.900633.19 Social History Date Type Detail Facility Start: 11-02-2023 Sex Assigned At [facility] Start: 09-30-2017 End: 11-02-2023 Tobacco smoking status [...] North Start: 1996 Sex Assigned At Female [facility] Start: 12-10-2023 Tobacco smoking status NHIS Unknown if ever smoked [facility] Start: 12-10-2023 Alcohol intake Alcohol Use Details [facility] Start: 09-04-2023 Sexual Orientation Lesbian, lynch or homosexual [facility] Start: 11-03-2023 [facility] Clinical Notes 06-25-2020 to 06-05-2024 [...] ondansetron 4 mg disintegrating tablet - Active Nxtexzwb-Lna-Ml-FA ( 1 + IRON PO) Daily RT [...] Past Medical History: Diagnosis Date Anxiety Depression ([facility]) Endometriosis OCD (obsessive compulsive disorder) ([facility]) PTSD (post-traumatic stress disorder) ([facility]) HISTORY PAST MEDICAL HISTORY SOCIAL HISTORY Past Medical History: Diagnosis Date Anxiety Depression ([facility]) Endometriosis OCD (obsessive compulsive disorder) ([facility]) PTSD (post-traumatic stress disorder) ([facility]) Social History Tobacco Use Smoking status: Not [...] nursing note reviewed. Exam conducted with a country singer present. Vitals: There is no height or [...] Won Rueda DO documented in this encounter [facility] 11-19-2023 Evaluation + Plan note Diagnostic Tests PendingT3 Free 11/19/23Thyroid Perox.tpo Ab 11/19/23TgAb+Thyroglobulin,CHING or ARLEN 11/19/23 [facility] 11-02-2023 History of Present illness Narrative GYNECOLOGY CONSULT NOTE REASON FOR VISIT Endometriosis Pelvic pain HISTORY OF PRESENT ILLNESS Ms. Medrano is a 27 y.o. (NSVDx2) who presents for consultation regarding endometriosis, pelvic pain. Records review: Moved back from [place] to [place] (2021) First diagnosed in 2018 Has had [...] had a women's health doctor in [facility] who told her she had stage IV endometriosis. She is no longer on the progesterone. Has tried vaginal valium does not help Her 2 previous pregnancies were with a previous partner. She and her are trying for another now. No BA in clio Partner has not had a SA yet [...] patient today. documented in this encounter [facility] 09-14-2023 Evaluation note Encounter Date Diagnosis Assessment [...] educated on the risks and benefits of longwall machine operator helper use. Risk assessment was done. Patient is [...] Pt to call with any worsening symptoms. Curse Other 12-21-2023 Evaluation note* Encounter Date Diagnosis Assessment Notes Treatment Notes Treatment Clinical Notes Jul, Generalized anxiety disorder (ICD-10 - F41.1) Jul, Endometriosis (ICD-1 0 - N80.9) Curse Other 12-15-2023 Evaluation note* Encounter Date Diagnosis [...] educated on the risks and benefits of longwall machine operator helper use. Risk assessment was done as well [...] intractable, unspecified migraine type (ICD-10 - G43.909) [facility] Other 11-06-2020 NoteOPERATIVE NOTE OPERATION DATE: 06-25-20 ANESTHETIC:General. ARTIST CONSULTANT:None. PREOPERATIVE DIAGNOSIS: 1. Dyspareunia. 2. Right and [...] lap, and needle counts were correct x2. [facility] Signed and Approved by: DR WON RUEDA . 07/30/2020 13:02:00[facility] note* Clinical Note Date No Information [facility] Work Phone: Discharge summary* Clinical Note Date No Information [facility] Work Phone: [facility] app[facility] Other Evaluation note* Diagnosis Endometriosis- Primary Endometriosis, site unspecified Pelvic pain Unspecified symptom associated with female genital organs Myalgia of pelvic floor Dysmenorrhea Dyspareunia in female Nausea and vomiting, unspecified vomiting type Bladder pain Other symptoms involving urinary system Anxiety Anxiety state, unspecified [facility] Diagnosis Onset Date Resolution Status Depression acute Generalized anxiety disorder acute Obsessive compulsive disorder acute PTSD (post-traumatic stress disorder) acute Depression acute Endometriosis acute Generalized anxiety disorder acute Obsessive compulsive disorder acute PTSD (post-traumatic stress disorder) acute TBI (traumatic brain injury) acute [facility] Work Phone: Evaluation note* Type Assessment Date No Information [facility] Work Phone: Evaluation note* Diagnosis 32 weeks gestation of Third trimester state, incidental H/O delivery, currently , first trimester Pelvic pain in female Unspecified symptom associated with female genital organs Cluster headache, not intractable, unspecified chronicity pattern Bilateral leg pain Pain in soft tissues of limb documented in this encounter [facility] Clinical Note Date No Information [facility] [employer] Work Phone: History general Narrative - Reported* Type Description Date Medical History Anxiety Medical History Stage 4 Endometriosis Medical History Depression with manic episodes Medical History OCD Medical History PTSD Medical History TBI Surgical History Endometriosis surgery x2 Surgical History [place] teeth Surgical History Injections in cervix [facility] appAttach Other History of Present illness Narrative* Encounter Date Complaint History Of Prese nt Illness No Information [facility] Phone: Hospital course Narrative No data available for this section [facility] No data available for this section [facility]* Date Instruction Additional Infor mation No Information [facility] [employer] Work Phone: Progress note No data available for this section [facility] Clinical Note Date No Information [facility] Work Phone: Reason for referral (narrative)* Consultation (Routine) - New Request Specialty Diagnoses / Procedures Referred By Contgerardo t Referred To Contact Psychology Diagnoses Pelvic pain Anxiety Earle Chen MD [address] [place] [address] Oksana Luu, PhD [address] [place] [address] Referral ID Status Reason Start Date Expiration Date V isits Requested Visits Authorized [id number] New Request 11/02/2023 11/26/2024 1 1 * Consultation (Routine) - New Request Specialty Diagnoses / Procedures Referred By Contac t Referred To Contact Integrative Medicine Diagnoses Pelvic pain Nausea and vomiting, unspecified vomiting type Earle Chen MD [address] [place] [address] Referral ID Status Reason Start Date Expiration Date V isits Requested Visits Authorized [id number] New Request 11/02/2023 11/26/2024 1 1 * Consultation (Routine) - New Request Specialty Diagnoses / Procedures Referred By Contac t Referred To Contact Gynecology Diagnoses Pelvic pain Myalgia of pelvic floor Bladder pain Earle Chen MD [address] [place] [address] Referral ID Status Reason Start Date Expiration Date V isits Requested Visits Authorized [id number] New Request 11/02/2023 11/26/2024 1 1 * MRI/CAT Scan (Routine) - New Request Specialty Diagnoses / Procedures Referred By Contac t Referred To Contact Diagnoses Endometriosis Pelvic pain Procedures MRI PELVIS WITH AND WITHOUT CONTRAST NC MRI, PELVIS, COMBO Earle Chen MD [address] [place] [address] Referral ID Status Reason Start Date Expiration Date V isits Requested Visits Authorized [id number] New Request 11/02/2023 11/26/2024 1 1 [facility] Reason For Referral No [...] 1 Endometriosis (N80.9 ) Referral Organization [facility] [employer] Referring Provider First Name Lucila Referring Provider Last Name Steveacher Referring Provider Specialty Nurse Pract itioner Referred Organization [facility] Referred Provider Jena Suresh Referred Address ,[place], [place],[address] Referred Provider Specialty OB - Gynecol ogy Referral Priority Routine General Notes Lesley Bowman 01:18:58 PM >pt has west. we do not take this insurance. we take east. pt will need to update this with [facility] if she has relocated or only here for a short period of time. I called pt but her mail box is full. Reason *FU 08/06 CALL taryn walton Diagnosis 1 History of traumatic brain injury (Z87.820) Diagnosis 2 Migraine without sta tus migrainosus, not intractable, unspecified migraine type (G43.909) Referral Organization [facility] [employer] Referring Provider First Name Lucila Referring Provider Last Name Steveacher Referring Provider Specialty Nurse Pract itioner Referred Organization [facility] Referred Provider Herbie Arroyo Referred Address [address] [place], [place],[address] Referred Provider Specialty Neurology Referral Priority Routine General Notes Lesley Bowman 01:18:58 PM >pt has west. we do not take this insurance. we take east. pt will need to update this with if she has relocated or only here for a short period of time. I called pt but her mail box is full. Reason *FU 08/[address] Crmaer -- Endocrinology Diagnosis 1 Endometriosis (N80.9 ) Referral Organization [facility] Referring Provider First Name Lucila Referring Provider Last Name Melquiades Referring Provider Specialty Nurse Pract itioner Referred Organization [facility] Referred Address [address] [place], [place],[address] Referred Provider Specialty Endocrinolog y Referral Priority [...] and content) DATE CREATED AUTHOR [facility]/15/2020 [facility] DATE CREATED AUTHOR AUTHOR'S ORGANIZ ATION 11/03/2023 [facility] DATE CREATED AUTHOR AUTHOR'S ORGANIZ ATION 11/20/2023 [facility] DATE CREATED AUTHOR AUTHOR'S ORGANIZ ATION 12/15/2023 [facility] DATE CREATED AUTHOR AUTHOR'S ORGANIZ ATION 04/01/2024 [facility] DATE CREATED AUTHOR AUTHOR'S ORGANIZ ATION 06/07/2024 [facility] dical Specialists EPIC REASON FOR VISIT (unrecogniz ed section and content) Reason Comments Consult Pt diagnosis with En dometriosis in 2018. Patient desire . Specialty Diagnoses / Procedures Referred By Harris agutam Referred To Contact AIR/OCEAN EXPORT CLERK Diagnoses Endometriosis Lucila Arnett, MASSEUR/MASSEUSE [address] [facility] [place] [address] [facility] [address] [place] [address] Referral ID Status Reason Start Date Expiration Date V isits Requested Visits Authorized [id number] New Request 10/23/2023 11/16/2024 1 1 Care Teams (unrecognized sec tion and content) Team Status: Active Member Role Status Dates Lucila Arnett APRN CATIA DESIGNER-C Primary Care Provider Active Team Status: Inactive Member Role Status Dates Lucila Arnett APRN CATIA DESIGNER-C Attending Provider Act vinicius Start: September 14, 2023 End: September 14, 2023 Team Status: Inactive Member Role Status Dates Lucila Arnett APRN CATIA DESIGNER-C Primary Care Provider, Attending Provider Active Start: October 17, 2023 End: October 17, 2023 Team Status: Inactive Member Role Status Dates Lucila Arnett APRN CATIA DESIGNER-C Primary Care Provider, Attending Provider Active Start: November 14, 2023 End: November 14, 2023 Name Effective Dates (start - stop) Status Members No Information Clerk General Relationship Specialty Start Date End Date Lucila Arnett NP [address] [place] [address] PCP - General Family Medicine 11/11/23 Clerk General Relationship Specialty Start Date End Date Lucila Arnett NP [address] [place] [phone] PCP - General Family Medicine 11/11/23 Goals [...] BE BASED ON THE PRIMARY CLINICAL RECORDS. [facility] [employer] [facility]. provides no warranty or guarantee of the accuracy or completeness of information in this document.
[2024-06-17 10:32] VITALS: BP 118/68; PULSE 102
== END 2024-06-17 11:19 | disposition home or self-care (01) ==
LOC: FBCO 07:11 → FBC 10:25
PROVIDERS: PCP Nurse Practitioner Family; Visit Provider Obstetrics & Gynecology
DX: O26.893 Other specified pregnancy related conditions, third trimester (principal); Z3A.34 34 weeks gestation of pregnancy
CPT/HCPCS: 59025

== ENCOUNTER 2024-06-20 07:18 | Outpatient (OUT) | payer OTHER, SELFPAY ==
--- OUTSIDE RECORDS SUMMARY | 2024-06-20 07:21 | XMS_ITS | CCD ---
Author Organization [facility] Care Team Providers Care Bill Hiker Name Role Phone MARYBETH, DR UPTON Admitting Unavailable MISC, DR DAVENPORT Primary Care Unavailable UNPUR, DR DARLINE Fitzgerald Consult[employer] Unavailable MARYBETH, DR [...] Unavailable LUCILA ARNETT Primary Care Physician [phone] KHADRA ARNETT Attending Unava ilable KHADRA ARNETT [...] 0 [facility] Repository (9 sources) traMADol; Translations: [TRAMADOL] Drug Allergy 4 Unknown [facility] (9 sources) Lavender Oil; Translations: [LAVENDER OIL] Drug allergy 4 Unknown [facility] Repository (1 source) lavender (Lavandula angustifolia) Allergy to substance 4 Unknown Reaction [facility] (4 sources) GALCANEZUMAB-GNL M; Translations: [GALCANEZUMAB-GN LM] Propensity to adverse reactions to drug (disorder) 4 [facility] Rep[facility] (3 sources) Galcanezumab Propensity to adverse reactions 4 [facility] Work Phone: Medications Current Medications [...] oral solution (1 source) alpha-Adrenergic Agonist, Uncompetitive V-uttvjy-B-aspartate Receptor Antagonist, Sigma-1 Agonist Start : 09-30 [...] Daily 30 capsule 6 05/05/2024 05/05/2025 Active Gnyrzeej-Esu-Fb-FA ( 1 + IRON PO) (3 sources) Ilkavuya-Gjg-Jp-FA ( 1 + IRON PO) Take by [...] q6hr, # 10 tab(s), Refills(s) 0, Pharmacy: [facility] Start Date: 09/21/18 Status: [...] UA Negative Negative - 4(70) +++ mg/dL [facility] Blood, UA Positive Negative - 50 Jt/mcL [facility] Comment on above: trace-intact Clarity, UA Clear [facility] Color, UA Yellow [facility] Glucose, UA Negative Negative - 2000(110) ++++ mg/dL [facility] Interpretation and review of laboratory results Abnormal [facility] Ketones, UA Negative Negative - 160(16) ++++ mg/dL [facility] Leukocytes, UA Negative Negative - 500+++ [place]/mcL [facility] Nitrite, UA Negative Negative - Positive [facility] pH, UA 7 5 - 9 [facility] Protein, UA Negative Negative - 2000(20) ++++ mg/dL [facility] Spec Grav, UA 1.02 1 - 1.03 [facility] Urobilinogen, UA 1.0 0.2 - 12 mg/dL [facility] HCG.beta subunit Qnon 2023 hCG Quant [id number] mIU/mL Normal [facility] Comment on above: Order Comment: Pregn [...] By: #### 2 1198-7 #### [facility] ([facility]) LAB [address] [place] [address] HCG.beta subunit Qnon 2023 hCG Quant 70029 mIU/mL Normal [facility] Comment on above: Order Comment: [...] By: #### 2 1198-7 #### [facility] ([facility]) LAB [address] [place] [address] HCG.beta subunit Qnon 2023 hCG Quant [id number] mIU/mL Normal [facility] Comment on above: Order Comment: [...] By: #### 2 1198-7 #### [facility] ([facility]) LAB [address] [place] [address] [facility] hCG Quant 26120 mIU/mL Normal [facility] Comment on above: Order Comment: [...] By: #### 2 1198-7 #### [facility] ([facility]) LAB [address] [place] [address] HCG.beta subunit Qnon 2023 hCG Quant 2709 mIU/mL Normal [facility] Comment on above: Order Comment: [...] By: #### 2 1198-7 #### [facility] ([facility]) LAB [address] [place] [address] HCG.beta subunit Qnon 2023 hCG Quant 776 mIU/mL Normal [facility] Comment on above: Order Comment: [...] By: #### 2 1198-7 #### [facility] ([facility]) LAB [address] [place] [address] HCG.beta subunit Qnon 2023 hCG Quant 250 mIU/mL Normal [facility] Comment on above: Order Comment: [...] By: #### 2 1198-7 #### [facility] ([facility]) LAB [address] [place] [address] .Thyroglobulin by IMAon 04- Thyroglobulin [Mass/Vol] 5.0 ng/mL Invalid Interpretation Code 1.5-38.5 [facility] Comment on above: Result Comment: Acco [...] John Vish Immunometric Assay Performed at: [facility] [id number] [place], [place] [id number] PhD Johanny Nieto Performed By: #### 2 [id number], [id number], [id number], [id number], [id number], [id number], [id number] #### [facility] [address] [place] [address] T3 Freeon 11-20-2023 Free T3 [Mass/Vol] 3.2 pg/mL Invalid Interpretation Code 2.0-4.4 [facility] Comment on above: Result Comment: Perf ormed at: [id number] [place], [place] [id number] PhD Johanny Nieto Performed By: #### 2 536328, [id number], [id number], [id number], [id number], [id number], [id number] #### [facility] [address] [place] [address] TgAb+Thyroglobulinon 024 Thyroglobulin Ab Qn [IU]/mL Invalid Interpretation Code 0.0-0.9 [facility] Comment on above: Result Comment: Thyr oglobulin Antibody measured by [employer] Methodology It should be noted that the presence of thyroglobulin antibodies may not be pathogenic nor diagnostic, especially at very low levels. The assay lime plant operator has found that four percent of individuals without evidence of thyroid disease or autoimmunity will have positive TgAb levels up to 4 IU/mL. Performed at: [facility] [address] [place] [id number] PhD Johanny Nieto Performed By: #### 2 633843, [id number], [id number], [id number], [id number], [id number], [id number] #### [facility] [address] [place] [address] Thyroid Perox.tpo Abon 11-19 TPO Ab Qn [IU]/mL Invalid Interpretation Code 0-34 [facility] Comment on above: Result Comment: Perf ormed at: [facility] [address] [place], [place] [id number] PhD Johanny Nieto Performed By: #### 2 553279, [id number], [id number], 9127404, [id number], [id number], [id number] #### [facility] [address] [place] [address] BhCG Quanton 11-19-2023 HCG.beta subunit Qn 86 m[IU]/mL High 1-3 [facility] Comment on above: Result Comment: 'F N ON < 1 - 3' ' 0.2 - 1 WEEK = 5 TO 50' ' 1 - 2 WEEKS = 50 - 500' ' 2 - 3 WEEKS = 100 - 5000' ' 3 - 4 WEEKS = 500 - 40586' ' 4 - 5 WEEKS = 1000 - 94641' ' 5 - 6 WEEKS = 59422 - 555042' ' 6 - 8 WEEKS = 30684 - 626347' ' 8 - 12 WEEKS = 92901 - 439277' Performed By: #### 2 [id number] #### [facility] [address] [place] [address] CHEMISTRYOrdered By: SYSTEM SYSTEM on 11-19-2023 HCG.beta [...] 3 - 4 WEEKS = 500 - 54803' ' 4 - 5 WEEKS = 1000 - 01199' ' 5 - 6 WEEKS = 85121 - 243687' ' 6 - 8 WEEKS = 81836 - 460807' ' 8 - 12 WEEKS = 90854 - 970406' Iron [Mass/Vol] 161 ug/dL High 35 - 153 mcg/dL Remisol Chem Iron binding capacity [Mass/Vol] 316 ug/dL Normal 250 - 400 mcg/dL [facility] Transferrin [Mass/Vol] 226 mg/dL Normal 200 - 370 mg/dL [facility] TSH Qn 1.53 m[IU]/L Normal 0.34 - 5.60 mcIU/mL Remisol Chem Consent for Treatmenton Consent for Treatment [id number] #1.00TIFF Normal [facility] Ironon 11-19-2023 Iron [Mass/Vol] 161 microgram/dL High 35-153 Fis [facility] Comment on above: Performed By: #### 2 522149, [id number], [id number], 2207837, [id number], [id number], [id number] #### [facility] [address] [place] [address] Physician Orderon 11-19-2023 Physician Order [id number] #1.00TIFF Normal [facility] TIBC Calculatedon 11-19-2023 Iron binding capacity [Mass/Vol] 316 microgram/dL Normal 250-400 [facility] Comment on above: Performed By: #### 2 938068, [id number], 02717442, 3493283, 393262501, [id number], [id number] #### [facility] [address] [place] [address] Transferrin [Mass/Vol] 226 mg/dL Normal 200-370 [facility] Comment on above: Performed By: #### 2 837481, 49033757, 10652840, 3709521, 249030789, 344050974, [id number] #### [facility] [address] [place] [address] TSH With T4fr Reflexon 11-18 TSH Qn 1.53 m[IU]/L Normal 0.34-5.60 [facility] Comment on above: Performed By: #### 2 961785, 31425691, 09980918, 1895981, [id number], 102569546, [id number] #### [facility] [address] [place] [address] TSHon 07-12-2020 TSH 0.756 uIU/mL Normal 0.470-4.680 [facility] Comment on above: Performed By: #### T SH #### [facility] Laboratory [address] [place], [place] [address] Jayne Hamm TSH RANGE SEE BELOW Normal [facility] Comment on above: Result Comment: <0.3 4 UIU/ml HYPERTHYROID 0.34-5.60 UIU/ml EUTHYROID >5.60 UIU/ml HYPOTHYROID Performed By: #### T SH #### [facility] Laboratory [address] [place] [address] Jayne Noris CBC AUTO DIFFon 06-25-2020 BASO # 0.1 103/ul Normal 0.0-0.1 [facility] Comment on above: Performed By: #### C BC #### [facility] Laboratory [address] [place] [id number] Jayne Noris Basophils/100 WBC (Bld) 1.2 % Normal 0.2-2.0 [facility] Comment on above: Performed By: #### C BC #### [facility] Laboratory [address] [place] [address] Jayne Noris EO # 0.2 103/ul Normal 0.0-0.7 [facility] Comment on above: Performed By: #### C BC #### [facility] Laboratory [address] [place] [address] Jayne Noris Eosinophils/100 WBC (Bld) 2.6 % Normal 0.9-7.0 [facility] Comment on above: Performed By: #### C BC #### [facility] Laboratory [address] [place] [address] Jayne Noris Erythrocyte distribution width (RBC) [Ratio] 12.0 % Normal 11.0-15.0 [facility] Comment on above: Performed By: #### C BC #### [facility] Laboratory [address] [place], [place] [phone] Jayne Noris Hematocrit (Bld) [Volume fraction] 40.7 % Normal 36.0-48.0 [facility] Comment on above: Performed By: #### C BC #### [facility] Laboratory [address] [place], [place] [phone] Jayne Noris Hemoglobin (Bld) [Mass/Vol] 13.6 g/dL Normal 12.0-16.0 [facility] Comment on above: Performed By: #### C BC #### [facility] Laboratory [address] [place] [address] Jayne Noris IG # 0.01 10e3/ul Normal 0.00-0.03 [facility] Comment on above: Performed By: #### C BC #### [facility] Laboratory [address] [place], [place] [address] Jayne Noris IG % 0.2 % Normal 0.0-0.5 [facility] Comment on above: Performed By: #### C BC #### [facility] Laboratory [address] [place], [place] [address] Jayne Noris LYMPH # 1.9 103/ul Normal 1.2-3.8 [facility] Comment on above: Performed By: #### C BC #### [facility] Laboratory [address] [place], [place] [address] Jayne Noris Lymphocytes/100 WBC (Bld) 32.5 % Normal 20.5-60.0 [facility] Comment on above: Performed By: #### C BC #### [facility] Laboratory [address] [place], [place] [phone] Jayne Noris MANUAL DIFF REQ NO Normal [facility] Comment on above: Performed By: #### C BC #### [facility] Laboratory [address] [place], [place] [phone] Jayne Noris MCH (RBC) [Entitic mass] 31.3 pg Normal 26.7-34.0 [facility] Comment on above: Performed By: #### C BC #### [facility] Laboratory [address] [place], [place] [address] Jayne Noris MCHC (RBC) [Mass/Vol] 33.4 g/dL Normal 29.9-35.2 [facility] Comment on above: Performed By: #### C BC #### [facility] Laboratory [address] [place] [address] Jayne Noris MCV (RBC) [Entitic vol] 93.6 fL Normal 81.0-99.0 [facility] Comment on above: Performed By: #### C BC #### [facility] Laboratory [address] [place], [place] [phone] Jayne Noris MONO # 0.6 103/ul Normal 0.3-0.8 [facility] Comment on above: Performed By: #### C BC #### [facility] [address] [place], [place] [address] Jayne Noris Monocytes/100 WBC (Bld) 10.4 % Normal 1.7-12.0 [facility] Comment on above: Performed By: #### C BC #### [facility] [address] [place] [address] Jayne Hamm NEUT # 3.1 103/ul Normal 1.4-6.5 [facility] Comment on above: Performed By: #### C BC #### [facility] [address] [place] [address] Jayne Hamm Neutrophils/100 WBC (Bld) 53.1 % Normal 43.0-75.0 [facility] Comment on above: Performed By: #### C BC #### [facility] [address] [place] [address] Jayne Hamm Platelet mean volume (Bld) [Entitic vol] 8.9 fL Critically low 9.5-13.5 [facility] Comment on above: Performed By: #### C BC #### [facility] [address] [place] [address] Jayne Cruzen PLT 265 103/ul Normal 150-450 [facility] Comment on above: Performed By: #### C BC #### [facility] [address] [place] [address] Jayne Cruzen RBC 4.35 106/ul Normal 4.20-5.40 [facility] Comment on above: Performed By: #### C BC #### [facility] [address] [place] [address] Jayne Hamm WBC 5.8 103/ul Normal 4.0-11.0 [facility] Comment on above: Performed By: #### C BC #### [facility] [address] [place] [address] Jayne Hamm PREG QUANT HCGon 06-25-2020 HCG QUANT 1.00 mIU/mL Normal [facility] Comment on above: Performed By: #### P REGQNT #### [facility] [address] [place] [address] Jaynejeremías Hamm HCG RANGE SEE BELOW Normal [facility] Comment on above: Result Comment: 5-50 0-1 WEEK 40-300 1-2 WEEKS 100-1,000 2-3 WEEKS 500-6,000 3-4 WEEKS 5,000-200,000 1-2 MONTHS 10,000-100,000 2-3 MONTHS 3,000-50,000 2ND TRIMESTER 1,000-50,000 3RD TRIMESTER Performed By: #### P REGQNT #### [facility] [address] [place] [address] Jayne Hamm PAP ACOG PANEL 2: 21 to 29on 05-06-2020 . . Normal [facility] Comment on above: Performed By: #### 4 [id number] #### [facility] [address] [place] [address] Jayne Hamm Age Gdln ACOG Testing 22- [facility] Comment on above: Performed By: #### 4 [id number] #### [facility] [address] [place] [address] Jayne Hamm DIAGNOSIS: Comment [facility] Comment on above: Result Comment: NEGA TIVE FOR INTRAEPITHELIAL LESION OR MALIGNANCY. Performed By: #### 4 [id number] #### [facility] [address] [place] [address] Jayne Hamm Methodology: Comment [facility] Comment on above: Result Comment: This liquid based SurePath(R) pap test was screened with the assistance of an image guided system. Performed By: #### 4 [id number] #### [facility] Laboratory [address] [place], [place] [phone] Jayne Hamm Note: Comment [facility] Comment on above: Result Comment: The Pap smear is a screening test designed to aid in the detection of premalignant and malignant conditions of the uterine cervix. It is not a diagnostic procedure and should not be used as the sole means of detecting cervical cancer. Both false-positive and false-negative reports do occur. . Performed By: #### 4 [id number] #### [facility] [address] [place] [address] Jayne Hamm Performed by: Comment Normal [facility] Comment on above: Result Comment: Suman Rdz, Civil Celebrant (ASCP) Performed By: #### 4 [id number] #### [facility] Laboratory [address] [place] [address] Jayne Noris Reflex Criteria: Comment Normal [facility] Comment on above: Result Comment: The HPV DNA reflex criteria were not met with this specimen result therefore, no HPV testing was performed. . Performed By: #### 4 [id number] #### [facility] [address] [place] [address] Jaynejeremías Hamm Specimen adequacy: Comment Normal [facility] Comment on above: Result Comment: Sati sfactory for evaluation. Endocervical and/or squamous metaplastic cells (endocervical component) are present. Performed By: #### 4 [id number] #### [facility] [address] [place] [address] Jayne Noris US PELVIS AND TRANSVAGon US [...] by: DARLINE ESPITIA Date: 2020-04-30 14:54 Normal [facility] Vital Signs Date Time Vital Sign Value Performing Clinician Facility 06-05-2024 10:48-0400 Body weight 80.34 kg Diavibe DO Work Phone: [facility] 06-05-2024 10:48-0400 Diastolic blood pressure 64 mm[Hg] Giveter Work Phone: [facility] 06-05-2024 10:48-0400 Systolic blood pressure 100 mm[Hg] Won Rueda DO Work Phone: [facility] 12-10-2023 09:18-0400 Diastolic blood pressure 84 mm[Hg] Hill Jacobsen Work Phone: [facility] 12-10-2023 09:18-0400 Heart rate 101 /min Hill Jacobsen Work Phone: [facility] 12-10-2023 09:18-0400 Respiratory rate 12 /min Hill Jacobsen Work Phone: [facility] 12-10-2023 09:18-0400 Systolic blood pressure 132 mm[Hg] Hill Jacobsen Work Phone: [facility] 11-02-2023 14:27-0400 Body height 180.3 cm Earle Chen MD Work Phone: [facility] 11-02-2023 14:27-0400 Body mass index (BMI) [Ratio] 20.04 kg/m2 Earle Chen MD Work Phone: [facility] 11-02-2023 14:27-0400 Body weight 65.18 kg Earle Chen MD Work Phone: [facility] 11-02-2023 14:27-0400 Diastolic blood pressure 80 mm[Hg] Earle Chen MD Work Phone: [facility] 11-02-2023 14:27-0400 Systolic blood pressure 110 mm[Hg] Earle Chen MD Work Phone: [facility] 09-14-2023 11:30-0500 Body height 180.34 cm Lucila Arnett Other [facility] 09-14-2023 11:30-0500 Body mass index (BMI) [Ratio] 20.92 kg/m2 Lucila Arnett Other [facility] Other 09-14-2023 11:30-0500 Body weight 68.04 kg Lucila Melquiades Other [facility] Other 09-14-2023 11:30-0500 Body weight 68.[address] [facility] 09-14-2023 11:30-0500 Diastolic blood pressure 68 mm[Hg] Lucila Melquiades Other [facility] 09-14-2023 11:30-0500 Respiratory rate 16 /min Lucila Melquiades Other [facility] Other 09-14-2023 11:30-0500 SaO2% (BldA) [Mass fraction] 100 % Lucila Melquiades Other [facility] Other 09-14-2023 11:30-0500 Systolic blood pressure 110 mm[Hg] Lucila Melquiades Other [facility] 08-03-2023 10:00-0500 Body height 180.34 cm Lucila Melquiades Other [facility] Other 08-03-2023 10:00-0500 Body mass index (BMI) [Ratio] 20.78 kg/m2 Lucila Arnett Other [facility] Other 08-03-2023 10:00-0500 Body weight 67.59 kg Lucila Melquiades Other [facility] Other 08-03-2023 10:00-0500 Diastolic blood pressure 66 mm[Hg] Lucila Vidyar Other [facility] Other 08-03-2023 10:00-0500 SaO2% (BldA) [Mass fraction] 98 % Lucila Melquiades Other [facility] Other 08-03-2023 10:00-0500 Systolic blood pressure 100 mm[Hg] Lucila Melquiades Other [facility] Other Encounters Encounter Date Encounter Type Care Provider Facility Start: 06-05-2024 End: 06-05-2024 Bamboo flowsheet Won Marybeth DO Work Phone: [facility] Start: 06-05-2024 End: 06-05-2024 Bamboo flowsheet Won Marybeth DO Work Phone: [facility] Start: 06-05-2024 End: 06-05-2024 Office outpatient visit 15 minutes Won Marybeth DO Work Phone: [facility] Comment on above: 33 [...] 03-31-2024 End: 03-31-2024 ambulatory WON R MARYBETH [facility] Start: 03-27-2024 End: 03-27-2024 ambulatory WON MARYBETH Not Available Start: 03-25-2024 End: 03-25-2024 ambulatory WON R [facility] Start: 03-13-2024 End: 03-13-2024 ambulatory PEDRO TABOR Not Available Start: 02-28-2024 End: 02-28-2024 ambulatory WON MARYBETH Not Available Start: 02-25-2024 End: 02-25-2024 ambulatory WON R [facility] Start: 02-13-2024 End: 02-13-2024 ambulatory WON MARYBETH Not Available Start: 01-30-2024 End: 01-30-2024 ambulatory WON MARYBETH Not Available Start: 01-21-2024 End: 01-21-20[place] Start: 01-17-2024 End: 01-17-2024 ambulatory WON MARYBETH Not Available Start: 01-03-2024 End: 01-03-2024 ambulatory WON MARYBETH Not Available Start: 12-26-2023 End: 12-26-2023 ambulatory WON MARYBETH Not Available Start: 12-13-2023 End: 12-13-2023 ambulatory WON MARYBETH Not Available Start: 12-10-2023 End: 12-11-2023 ambulatory HAKEEM YODER [facility] Start: 12-10-2023 End: 12-10-2023 Encounter identifier Hill Jacobsen Work Phone: [facility] Start: 12-06-2023 End: 12-07-2023 ambulatory HAKEEM YODER [facility] Start: 12-03-2023 End: 12-04-2023 ambulatory HAKEEM YODER [facility] Start: 11-29-2023 End: 11-30-2023 ambulatory HAKEEM BEBA [facility] Start: 11-26-2023 End: 11-27-2023 ambulatory HAKEEM BEBA [facility] Start: 11-23-2023 End: 11-24-2023 ambulatory HAKEEM YODER [facility] Start: 11-21-2023 End: 11-22-2023 ambulatory HAKEEM YODER [facility] Start: 11-19-2023 End: 11-20-2023 ambulatory 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 SPECIALIST LUCILA ARNETT [place] Start: 11-19-2023 End: 11-19-2023 Patient encounter procedure LUCILA ARNETT [facility] Start: 11-14-2023 End: 11-14-2023 ambulatory [facility] Work Phone: Start: 11-14-2023 End: 11-14-2023 Patient encounter procedure [facility] Physician [facility] Work Phone: Start: 11-02-2023 ambulatory EARLE CHEN Facility:[facility] Start: 11-02-2023 End: 11-02-2023 Office outpatient new 60 minutes Earle Chen MD Work Phone: [facility] [place] Comment on above: Endometriosis (Prima ry Dx); Pelvic pain; Myalgia of pelvic floor; Dysmenorrhea; Dyspareunia in female; Nausea and vomiting, unspecified vomiting type; Bladder pain; Anxiety Start: 10-17-2023 End: 10-17-2023 Patient encounter procedure [facility] Physician [facility] Work Phone: Start: 09-14-2023 End: 09-14-2023 ambulatory Lucila Arnett Other [facility] Other Start: 09-14-2023 Office outpatient vi sit 25 minutes Lucila Arnett [facility] Start: 09-14-2023 End: 09-14-2023 Patient encounter procedure [facility] Physician [facility] Start: 08-09-2023 End: 08-09-2023 ambulatory Lucila Arnett Other [facility] Other Start: 08-09-2023 Telephone encounter Lucila krueger [facility] Start: 08-03-2023 End: 08-03-2023 ambulatory Lucila Arnett Other [facility] Other Start: 08-03-2023 Office outpatient ne w 30 minutes Lucila Arnett [facility] Start: 08-03-2023 Telephone encounter Lucila Ni her [facility] Start: 07-12-2020 End: 07-13-[address] WON [...] [facility] [address] [place] [id number] Won Rueda, DO [address] [place] [address] [facility] Start: 06-30-2024 End: 06-30-2024 Professional / ancillary services management 06/30/2024 10:00 AM EST Ancillary Procedure [facility] [address] [place] [address] [facility] Start: 06-23-2024 End: 06-23-2024 Patient encounter procedure 06/23/2024 10:10 AM EST Routine [facility] [address] [place] [id number] Won Rueda, DO [address] [place] [address] [facility] Start: 06-05-2024 End: 06-05-2024 Patient encounter procedure 06/05/2024 10:40 AM EDT Routine [facility] [address] [address] Won Rueda, [address] [place] [address] Arrived [facility] Comment on above: Arrived Start: 11-02-2023 End: 11-01-2024 MR Pelvis WO and W contrast IV MRI PELVIS WITH AND WITHOUT CONTRAST Imaging Routine Endometriosis Pelvic pain Expected: 11/02/2023, Expires: 11/01/2024 [facility] Comment on above: Expected: 11/02/2023 , Expires: 11/01/2024 Start: 10-17-2023 Patient referral [facility] Work Phone: Start: 04-20-2023 COVID-19 VACCINE ( season) COVID-19 VACCINE ( season) [facility] Start: 04-20-2023 Influenza vaccination INFLUENZA VACC INE (#1) [facility] Start: 2017 Screening for malign ant neoplasm of cervix CERVICAL CANCER SCREENING DISCUSSION [facility] Start: 11-08-2015 Hepatitis B vaccination HEP B VACCINE (1 of 3 - 19+ 3-dose series) [facility] Start: 11-08-2015 Third diphtheria, te tanus and acellular pertussis (DTaP) vaccination TDAP (ADULT) [facility] Start: 2012 Screening for Chlamy david trachomatis CHLAMYDIA SCREEN [facility] Start: 11-08-2011 HIV screening HIV SCREENING DISCUSSION [facility] Start: 11-08-2011 Vaccination for kale n papillomavirus HPV VACCINE ADOL (1 - 3-dose series) [facility] Start: 1996 Hepatitis C screening HEPATITI S C VIRUS SCREENING [facility] Start: 1996 Screening for Chlamy david trachomatis GONORRHEA SCREEN [facility] Start: 1996 Tetanus vaccination TETANUS [facility] Patient referral [facility] Work Phone: Payers Date Payer Category Payer Medicaid [place]ICA[place] [id number] 2024 Medicaid [id number] 2023 [employer] ( and others) [id number] 2023 [employer] ( and others) [facility] [id number] 2023-Present [address] [place] [address] [id number]. [id number] 2023 [employer] ( and others) [id number] 1996 Unknown [id number] 2.16.840.1.062844.3.579.2. 593 1996 Unknown [id number] 2.16.840.1.253758.3.579.2. 593 1996 Unknown [id number] 2.16.840.1.598848.3.579.2. 593 1996 Unknown [id number] 2.16.840.1.898331.3.579.2. 593 1996 Unknown [id number] 2.16.840.1.243975.3.579.2. 593 1996 Unknown [id number] 2.16.840.1.784630.3.579.2. 594 1996 Unknown [id number] 2.16.840.1.810471.3.579.2. 727 1996 Unknown [id number] 2.16.840.1.832100.3.579.2. 1143 1996 Unknown [id number] 2.16.840.1.322063.3.579.2. 1143 1996 Unknown [id number] 2.16.840.1.681925.3.579.2. 1143 1996 Unknown [id number] 2.16.840.1.132858.3.579.2. 1143 1996 Unknown [id number] 2.16.840.1.108799.3.579.2. 1143 1996 Unknown [id number] 2.840.1.673360.3.579.2. 1142 1996 Unknown [id number] 2.16.840.1.260753.3.579.2. 114 1996 Unknown [id number] 2.16840.1.905197.3.579.2. 1285 1996 Unknown [id number] 2.16840.1.256024.3.579.2. 1285 1996 Unknown [id number] 2.16840.1.152069.3.579.2. 1285 1996 Unknown [id number] 2.16840.1.606012.3.579.2. 1285 1996 Unknown [id number] 2.16840.1.873877.3.579.2. 1285 1996 Unknown [id number] 2.16840.1.414580.3.579.2. 1285 1996 Unknown [id number] 2.16840.1.055260.3.579.2. 1259 1996 Unknown [id number] 2.16.840.1.932356.3.579.2. 9 1996 Unknown [id number] 2.16.840.1.070539.3.579.2. 1258 1996 Unknown [id number] 2.16.840.1.217107.3.579.2. 1258 1996 Unknown [id number] 2.16.840.1.884677.3.579.2. 1258 1996 Unknown [id number] 2.16.840.1.466077.3.579.2. 1258 1996 Unknown [id number] 2.16.840.1.934067.3.579.2. 1258 1996 Unknown [id number] 2.16.840.1.835023.3.579.2. 1258 1996 Unknown [id number] 2.16.840.1.382613.3.579.2. 1258 1996 Unknown [id number] 2.16.840.1.422183.3.579.2. 1258 1996 Unknown [id number] 2.16.840.1.300541.3.579.2. 1258 1996 Unknown [id number] 2.16.840.1.256943.3.579.2. 1258 1996 Unknown [id number] 2.16.840.1.526751.3.579.2. 1258 1996 Unknown [id number] 2.16.840.1.856911.3.579.2. 9 1959 [employer] ( and others) [id number] 1959 [employer] ( and others) [id number] [employer] ( and others) [id number] 2.16.840.1.614288.19 Social History Date Type Detail Facility Start: 11-02-2023 Sex Assigned At [facility] Start: 09-30-2017 End: 11-02-2023 Tobacco smoking status NHIS Never smoked tobacco [facility] Start: 11-02-2023 Tobacco use and exposure Smokeless tobacco non-user [facility] Start: 11-02-2023 Alcoholic beverage intake Lifetime non-drinker (finding) [facility] Start: 11-02-2023 History of Social function [facility] Start: 1995 Sex assigned at Not on file [facility] Start: 1995 Sex Assigned At Female [facility] Start: 12-10-2023 Tobacco smoking status NHIS Unknown if ever smoked [facility] Start: 12-10-2023 Alcohol intake Alcohol Use Details [facility] Start: 09-04-2023 Sexual Orientation Lesbian, lynch or homosexual [facility] Start: 11-03-2023 [facility] Clinical Notes 06-25-2020 to 06-05-2024 [...] ondansetron 4 mg disintegrating tablet - Active Pxnndbbr-Epl-Gi-FA ( 1 + IRON PO) Daily RT [...] Past Medical History: Diagnosis Date Anxiety Depression ([facility]/HCC) Endometriosis OCD (obsessive compulsive disorder) ([facility]) PTSD (post-traumatic stress disorder) ([facility]) HISTORY PAST MEDICAL HISTORY SOCIAL HISTORY Past Medical History: Diagnosis Date Anxiety Depression ([facility]/HCC) Endometriosis OCD (obsessive compulsive disorder) ([facility]) PTSD (post-traumatic stress disorder) ([facility]) Social History Tobacco Use Smoking [...] nursing note reviewed. Exam conducted with a equipment specialist present. Vitals: There is no height or [...] Won Rueda DO documented in this encounter [facility] 11-19-2023 Evaluation + Plan note Diagnostic Tests PendingT3 Free 11/19/23Thyroid Perox.tpo Ab 11/19/23TgAb+Thyroglobulin,CHING or ARLEN 11/19/23 [facility] 11-02-2023 History of Present illness Narrative GYNECOLOGY CONSULT NOTE REASON FOR VISIT Endometriosis Pelvic pain HISTORY OF PRESENT ILLNESS Ms. Medrano is a 27 y.o. (NSVDx2) who presents for consultation regarding endometriosis, pelvic pain. Records review: Moved back from [place] to [place] (2021) First diagnosed in 2018 [...] to get her medical records in [place], but they would not send them. She [...] She had a women's health doctor in [facility] who told her she had stage IV endometriosis. She is no longer on the progesterone. Has tried vaginal valium does not help Her 2 previous pregnancies were with a previous partner. She and her are trying for another now. No BA in [place] Partner has not had a SA yet [...] patient today. documented in this encounter [facility] 09-14-2023 Evaluation note Encounter Date Diagnosis [...] educated on the risks and benefits of long term care administrator use. Risk assessment was done. Patient is [...] Pt to call with any worsening symptoms. [facility] Other 12-21-2023 Evaluation note* Encounter Date Diagnosis Assessment Notes Treatment Notes Treatment Clinical Notes Jul, Generalized anxiety disorder (ICD-10 - F41.1) Jul, Endometriosis (ICD-1 0 - N80.9) [facility] Other 12-15-2023 Evaluation note* Encounter Date Diagnosis [...] educated on the risks and benefits of long term care administrator use. Risk assessment was done as well [...] intractable, unspecified migraine type (ICD-10 - G43.909) [facility] Other 11-06-2020 NoteOPERATIVE NOTE OPERATION DATE: 06-25-20 ANESTHETIC:General. EMERGENCY SPECIALIST:None. PREOPERATIVE DIAGNOSIS: 1. Dyspareunia. 2. Right and [...] lap, and needle counts were correct x2. [facility] Signed and Approved by: DR WON RUEDA . 07/30/2020 13:02:00[facility] note* Clinical Note Date No Information [facility] Work Phone: Discharge summary* Clinical Note Date No Information [facility] Work Phone: Evaluation [facility]No [facility] [employer] Other Evaluation note* Diagnosis Endometriosis- Primary Endometriosis, site unspecified Pelvic pain Unspecified symptom associated with female genital organs Myalgia of pelvic floor Dysmenorrhea Dyspareunia in female Nausea and vomiting, unspecified vomiting type Bladder pain Other symptoms involving urinary system Anxiety Anxiety state, unspecified [facility] Diagnosis Onset Date Resolution Status Depression acute Generalized anxiety disorder acute Obsessive compulsive disorder acute PTSD (post-traumatic stress disorder) acute Depression acute Endometriosis acute Generalized anxiety disorder acute Obsessive compulsive disorder acute PTSD (post-traumatic stress disorder) acute TBI (traumatic brain injury) acute [facility] Work Phone: Evaluation note* Type Assessment Date No Information [facility] Work Phone: Evaluation note* Diagnosis 32 weeks gestation of Third trimester state, incidental H/O delivery, currently , first trimester Pelvic pain in female Unspecified symptom associated with female genital organs Cluster headache, not intractable, unspecified chronicity pattern Bilateral leg pain Pain in soft tissues of limb documented in this encounter [facility] Clinical Note Date No Information [email or web address] Work Phone: History general Narrative - Reported* Type Description Date Medical History Anxiety Medical History Stage 4 Endometriosis Medical History Depression with manic episodes Medical History OCD Medical History PTSD Medical History TBI Surgical History Endometriosis surgery x2 Surgical History [place] teeth Surgical History Injections in cervix Located [facility] [employer] Other History of Present illness Narrative* Encounter Date Complaint History Of Prese nt Illness No Information [facility] Phone: Hospital course Narrative No data available for this section [facility] No data available for this section [facility] Date Instruction Additional Infor mation No Information [email or web address] Work Phone: Progress note No data available for this section [facility] Clinical Note Date No Information [facility] Work Phone: Reason for referral (narrative)* Consultation (Routine) - New Request Specialty Diagnoses / Procedures Referred By Contgerardo t Referred To Contact Psychology Diagnoses Pelvic pain Anxiety Earle Chen MD [address] [place] [address] Oksana Luu, PhD [address] [place] [address] Referral ID Status Reason Start Date Expiration Date V isits Requested Visits Authorized [id number] New Request 11/02/2023 11/26/2024 1 1 * Consultation (Routine) - New Request Specialty Diagnoses / Procedures Referred By Contac t Referred To Contact Integrative Medicine Diagnoses Pelvic pain Nausea and vomiting, unspecified vomiting type Earle Chen MD [address] [place] [address] Referral ID Status Reason Start Date Expiration Date V isits Requested Visits Authorized [id number] New Request 11/02/2023 11/26/2024 1 1 * Consultation (Routine) - New Request Specialty Diagnoses / Procedures Referred By Contac t Referred To Contact Gynecology Diagnoses Pelvic pain Myalgia of pelvic floor Bladder pain Earle Chen MD [address] [place] [address] Referral ID Status Reason Start Date Expiration Date V isits Requested Visits Authorized [id number] New Request 11/02/2023 11/26/2024 1 1 * MRI/CAT Scan (Routine) - New Request Specialty Diagnoses / Procedures Referred By Contac t Referred To Contact Diagnoses Endometriosis Pelvic pain Procedures MRI PELVIS WITH AND WITHOUT CONTRAST TN MRI, PELVIS, COMBO Earle Chen MD [address] [place] [address] Referral ID Status Reason Start Date Expiration Date V isits Requested Visits Authorized [id number] New Request 11/02/2023 11/26/2024 1 1 [facility] Reason For Referral No Information [facility] Work Phone: Summary Purpose Family History No [...] Diagnosis 1 Endometriosis (N80.9 ) Referral Organization [facility] [employer] Referring Provider First Name Lucila Referring Provider Last Name Steveacher Referring Provider Specialty Nurse Pract itioner Referred Organization [facility] Referred Provider Jena Suresh Referred Address ,[place], [place],[address] Referred Provider Specialty OB - Gynecol ogy Referral Priority Routine General Notes Lesley Bowman 01:18:58 PM >pt has west. we do not take this insurance. we take east. pt will need to update this with [facility] if she has relocated or only here for a short period of time. I called pt but her mail box is full. Reason *FU 08/06 CALL taryn walton Diagnosis 1 History of traumatic brain injury (Z87.820) Diagnosis 2 Migraine without sta tus migrainosus, not intractable, unspecified migraine type (G43.909) Referral Organization [facility] [employer] Referring Provider First Name Lucila Referring Provider Last Name Steveacher Referring Provider Specialty Nurse Pract itioner Referred Organization [facility] Referred Provider Herbie Arroyo Referred Address [address] [place], [place],[address] Referred Provider Specialty Neurology Referral Priority Routine [...] Diagnosis 1 Endometriosis (N80.9 ) Referral Organization [facility] Referring Provider First Name Lucila Referring Provider Last Name Melquiades Referring Provider Specialty Nurse Pract itioner Referred Organization [facility] Referred Address [address] [place], [place],[address] Referred Provider Specialty Endocrinolog y Referral Priority [...] and content) DATE CREATED AUTHOR [facility]/15/2020 [facility] DATE CREATED AUTHOR AUTHOR'S ORGANIZ ATION 11/03/2023 [facility] DATE CREATED AUTHOR AUTHOR'S ORGANIZ ATION 11/20/2023 [facility] DATE CREATED AUTHOR AUTHOR'S ORGANIZ ATION 12/15/2023 [facility] DATE CREATED AUTHOR AUTHOR'S ORGANIZ ATION 04/01/2024 [facility] DATE CREATED AUTHOR AUTHOR'S ORGANIZ ATION 06/07/2024 [facility] dical Specialists EPIC REASON FOR VISIT (unrecogniz ed section and content) Reason Comments Consult Pt diagnosis with En dometriosis in 2018. Patient desire . Specialty Diagnoses / Procedures Referred By Harris gautam Referred To Contact ENGINEERING LIBRARIAN Diagnoses Endometriosis Lucila Arnett, VESSEL SPECIALIST [address] [facility] [place] [address] [facility] [address] [place] [address] Referral ID Status Reason Start Date Expiration Date V isits Requested Visits Authorized [id number] New Request 10/23/2023 11/16/2024 1 1 Care Teams (unrecognized sec tion and content) Team Status: Active Member Role Status Dates Lucila Arnett APRN AUTOMOTIVE PARTS CLERK-C Primary Care Provider Active Team Status: Inactive Member Role Status Dates Lucila Arnett APRN AUTOMOTIVE PARTS CLERK-C Attending Provider Act vinicius Start: September 14, 2023 End: September 14, 2023 Team Status: Inactive Member Role Status Dates Lucila Arnett APRN AUTOMOTIVE PARTS CLERK-C Primary Care Provider, Attending Provider Active Start: October 17, 2023 End: October 17, 2023 Team Status: Inactive Member Role Status Dates Lucila Arnett APRN AUTOMOTIVE PARTS CLERK-C Primary Care Provider, Attending Provider Active Start: November 14, 2023 End: November 14, 2023 Name Effective Dates (start - stop) Status Members No Information Bill Hiker Relationship Specialty Start Date End Date Lucila Arnett NP [address] [place] [id number] PCP - General Family Medicine 11/11/23 Bill Hiker Relationship Specialty Start Date End Date Lucila Arnett NP [address] [place] [id number] PCP - General Family Medicine 11/11/23 Goals [...] BE BASED ON THE PRIMARY CLINICAL RECORDS. [facility]. provides no warranty or guarantee of the accuracy or completeness of information in this document.
--- NOTE | 2024-06-20 11:02 | US_ITS ---
[address] [address] Patient Name: COLTON VERMA MRN: [id number] date: 1995 Sex: F Assigned Patient Location: [facility] Current Patient Location: Accession/Order Number: [id number] Exam Date: 06/20/2024 11:04 Report Date: 06/20/2024 12:30 At the request of: WON LESTER Procedure: US OB BPP w non-stress EXAMINATION: US OB BPP w non-stress HISTORY: History of delivery COMPARISON: No relevant comparison available. TECHNIQUE: Ultrasound biophysical profile was performed in the radiology department. non-reactive stress testing was performed by nursing staff in the birthing center. FINDINGS: BREATHING MOVEMENTS: 2 GROSS BODY MOVEMENTS: 2 TONE: 2 QUALITATIVE AMNIOTIC FLUID VOLUME: 2 PRESENTATION: CEPHALIC HEART RATE: 129.19 bpm AMNIOTIC FLUID VOLUME: 14.5 cm GESTATIONAL AGE: 34w6d US/US OB BPP w non-stress IMPRESSION: Total biophysical profile score: 8 Electronically authenticated by: DARLINE ESPITIA Date: 06/20/2024 12:30
[2024-06-20 11:32] VITALS: BP 124/75; PULSE 93
== END 2024-06-20 12:19 | disposition home or self-care (01) ==
LOC: US 07:18 → FBC 10:59
PROVIDERS: PCP Nurse Practitioner Family; Visit Provider Obstetrics & Gynecology
DX: O09.293 Supervision of pregnancy with other poor reproductive or obstetric history, third trimester (principal); Z3A.34 34 weeks gestation of pregnancy
CPT/HCPCS: 76818

== ENCOUNTER 2024-06-23 21:56 | Outpatient (REF) | payer OTHER, SELFPAY ==
--- OUTSIDE RECORDS SUMMARY | 2024-06-23 22:00 | XMS_ITS | CCD ---
Author Organization [facility] Care Team Providers Care Clinic Licensed Practical Nurse Name Role Phone MARYBETH, DR UPTON Admitting [...] DR UPTON Attending Unavailable Lucila Arnett Unavailable [phone] Unavailable Primary Care Provider Unavailabl e GIUSEPPEAL, EARLE Attending Unavailable LUCILA ARNETT Referring Unavailable LUCILA ARNETT Primary Care Physician [phone] KHADRA ARNETT Attending Unava ilable KHADRA ARNETT [...] (1 source) traMADol Drug Allergy [address] [facility] Repository (10 sources) traMADol; Translations: [TRAMADOL] Drug Allergy 4 Unknown [facility] (10 sources) Lavender Oil; Translations: [LAVENDER OIL] Drug allergy 4 Unknown [facility] Repository (1 source) lavender (Lavandula angustifolia) Allergy to substance 4 Unknown Reaction [facility] (5 sources) GALCANEZUMAB-GNL M; Translations: [GALCANEZUMAB-GN LM] Propensity to adverse reactions to drug (disorder) 4 [facility] Repository (4 sources) Galcanezumab Propensity to adverse reactions 4 [facility] Work Phone: Medications Current Medications [...] aspirin 81 mg delayed release oral tablet (4 sources) Platelet Aggregation Inhibitor, Nonsteroidal Anti-inflammatory Drug take 1 tablet by mouth once daily aspirin 81 MG EC tablet Take 81 mg by mouth Daily Active Blood Glucose Monitoring Suppl (D-Care Glucometer) w/Device kit (4 sources) Start : 04-24 End: 04-24 Blood [...] oral solution (1 source) alpha-Adrenergic Agonist, Uncompetitive J-rrqvac-W-aspartate Receptor Antagonist, Sigma-1 Agonist Start : 09-30 [...] daily cyclobenzaprine hydrochloride 10 mg oral tablet (5 sources) Muscle Relaxant Start : 04-28 cyclobenzaprine (Flexeril) 10 MG tablet cyclobenzaprine 10 mg tablet - Active 04/28/2023 Active doxepin hydrochloride 10 mg oral capsule (1 source) Tricyclic Antidepressant Start : 11-26 doxepin 10 mg capsule - Active escitalopram 20 mg oral tablet (1 source) Serotonin Reuptake Inhibitor Start : 01-09 escitalopram 20 mg tablet - Active ferrous sulfate (4 sources) take 1 tablet by mouth in the morning Ferrous Sulfate (IRON PO) Take 1 tablet by mouth in the morning. Active ibuprofen 600 mg oral tablet (2 sources) Nonsteroidal Anti-inflammatory Drug Start : 01-27 ibuprofen 600 mg tablet PLEASE SEE ATTACHED FOR DETAILED DIRECTIONS - Active isopropyl alcohol 0.7 ml/ml medicated pad (4 sources) Start : 04-24 Alcohol Swabs (Alcohol Prep Pad) 70 % pads Indications: Elevated glucose tolerance test Apply 1 Pad topically Daily Use four times daily to check FSBS. 150 each 3 04/24/2024 Active magnesium lactate 84 mg extended release oral tablet (4 sources) take 1 tablet by mouth in the morning magnesium lactate CR (Magtab) 84 MG (7MEQ) ER tablet Take 84 mg by mouth in the morning. Active magnesium oxide 400 mg oral tablet (4 sources) Start : 12-18 magnesium oxide (Mag-Ox) [...] omeprazole 20 mg delayed release oral capsule (4 sources) Proton Pump Inhibitor Start : 12-12 End: 12-12 take 1 capsule by mouth before mealtime omeprazole (PriLOSEC) [address] capsule Indications: Heartburn during in first trimester Take 1 capsule (20 mg) by mouth in the morning. Take before meals. Do not crush or chew.. 30 capsule 11 12/13/2023 12/12/2024 Active ondansetron 4 mg disintegrating oral tablet (6 sources) Serotonin-3 Receptor Antagonist Start : 11-29 [...] polysaccharide iron complex 391 mg oral capsule (4 sources) Start: 05-05-2024 End: 05-05-2025 take 1 capsule by mouth once daily iron polysaccharides (ProFe) 391.3 (180 Fe) MG capsule Indications: Low iron Take 1 capsule (391.3 mg) by mouth Daily 30 capsule 6 05/05/2024 05/05/2025 Active Vshwnafd-Est-No-FA ( 1 + IRON PO) (4 sources) Ykeubdop-Ems-Hz-FA ( 1 + IRON PO) Take by [...] Ordered zolpidem tartrate 10 mg oral tablet (4 sources) gamma-Aminobutyr ic Acid-ergic Agonist Start: 05-19-2024 [...] Problem Date Documented Date Episodic/Chronic Abdominal pain (13 sources) Pelvic and perineal pain; Translations: [Pain [...] trimester] Onset: 01-21-2024 Episodic Other complications of (4 sources) Supervision of with other poor reproductive [...] 11-02-2023 Chronic Other and delivery including normal (10 sources) First trimester ; Translations: [Encounter for supervision of normal , unspecified, first trimester] Onset: 01-03-2024 01-03-2024 Episodic Other screening for suspected conditions (not mental disorders or infectious disease) (12 sources) Encounter for screening for malignant neoplasm [...] ] Onset: 02-25-2024 Episodic Residual codes; unclassified (4 sources) Gestation period, 24 weeks; Translations: [24 [...] Episodic/Chronic Conditions associated with dizziness or vertigo (4 sources) Dizziness; Translations: [Dizziness and giddiness] Onset: 01-03-2024 01-03-2024 Episodic Deficiency and other anemia (1 source) Anemia, unspecified; Translations: [ANEMIA UNSPECIFIED] Onset: 08-02-2020 Episodic Immunizations and screening for infectious disease (1 source) Encounter for screening for human papillomavirus (HPV); Translations: [ENC SCREENING HUMAN PAPILLOMAVIRUS] Onset: 05-05-2020 Episodic Other complications of (4 sources) Vomiting of , unspecified; Translations: [Unspecified vomiting of , unspecified as to episode of care or not applicable] Onset: 01-03-2024 01-03-2024 Episodic Other complications of (4 sources) Heartburn; Translations: [Other specified related conditions, first trimester] Onset: 01-03-2024 01-03-2024 Episodic Other complications of (6 sources) High risk ; Translations: [Supervision of other high risk pregnancies, first trimester] Onset: 01-03-2024 01-03-2024 Episodic Other complications of (4 sources) Abdominal pain in ; Translations: [Other specified related conditions, unspecified trimester] Onset: 01-03-2024 01-03-2024 Episodic Other female genital disorders (1 source) Unspecified hypertrophy of vulva; Translations: [UNSPECIFIED HYPERTROPHY OF VULVA] Onset: 08-02-2020 Episodic Other non-traumatic joint disorders (4 sources) Hip pain; Translations: [Pain in right hip] Onset: 01-03-2024 01-03-2024 Episodic Residual codes; unclassified (4 sources) Other general symptoms and signs; Translations: [OTHER GENERAL SYMPTOMS AND SIGNS] Onset: 07-12-2020 Episodic Residual codes; unclassified (4 sources) History of placental abruption; Translations: [Personal history of other complications of , childbirth and the puerperium] Onset: 01-03-2024 01-03-2024 Episodic Unclassified (1 source) Onset: 08-20-2013 Resolved: 06-08-2014 02-25-2015 Results Test Name Value Interpretation Reference Range Facility Urinalysis macro (dipstick) panel (U)on 06-05-2024 Bilirubin, UA Negative Negative - 4(70) +++ mg/dL [facility] Blood, UA Positive Negative - 50 Jt/mcL [facility] Comment on above: trace-intact Clarity, UA Clear [facility] Color, UA Yellow [facility] Glucose, UA Negative Negative - 2000(110) ++++ mg/dL [facility] Interpretation and review of laboratory results Abnormal [facility] Ketones, UA Negative Negative - 160(16) ++++ mg/dL [facility] Leukocytes, UA Negative Negative - 500+++ [place]/mcL [facility] Nitrite, UA Negative Negative - Positive [facility] pH, UA 7 5 - 9 [facility] Protein, UA Negative Negative - 2000(20) ++++ mg/dL [facility] Spec Grav, UA 1.02 1 - 1.03 [facility] Urobilinogen, UA 1.0 0.2 - 12 mg/dL [facility] HCG.beta subunit Qnon 2023 hCG Quant [id number] mIU/mL Normal [facility] Comment on above: Order Comment: [...] method. Performed By: #### 2 1198-7 #### [facility] [address] [place] [address] HCG.beta subunit Qnon 2023 hCG Quant 35959 mIU/mL Normal [facility] Comment on above: Order Comment: Pregn [...] method. Performed By: #### 2 1198-7 #### [facility] [address] [place] [address] HCG.beta subunit Qnon 2023 hCG Quant 75520 mIU/mL Normal [facility] Comment on above: Order Comment: Pregn [...] method. Performed By: #### 2 1198-7 #### [facility] [address] [place] [address] [facility] Quant 13770 mIU/mL Normal [facility] Comment on above: Order Comment: Pregn [...] method. Performed By: #### 2 1198-7 #### [facility] [address] [place] [address] HCG.beta subunit Qnon 2023 hCG Quant 2709 mIU/mL Normal [facility] Comment on above: Order Comment: Pregn [...] method. Performed By: #### 2 1198-7 #### [facility] [address] [place] [address] HCG.beta subunit Qnon 2023 hCG Quant 776 mIU/mL Normal [facility] Comment on above: Order Comment: Pregn [...] method. Performed By: #### 2 1198-7 #### [facility] [address] [place] [address] HCG.beta subunit Qnon 2023 hCG Quant 250 mIU/mL Normal [facility] Comment on above: Order Comment: Pregn [...] method. Performed By: #### 2 1198-7 #### [facility] [address] [place] [address] .Thyroglobulin by IMAon 04- Thyroglobulin [Mass/Vol] 5.0 ng/mL Invalid Interpretation Code 1.5-38.5 [facility] Comment on above: Result Comment: Acco rding [...] John Vish Immunometric Assay Performed at: [facility] [id number] [place], [place] [id number] PhD Johanny Nieto Performed By: #### 2 [id number], [id number], [id number], [id number], [id number], [id number], [id number] #### [facility] Laboratory [address] [place] [address] T3 Freeon 11-20-2023 Free T3 [Mass/Vol] 3.2 pg/mL Invalid Interpretation Code 2.0-4.4 [facility] Comment on above: Result Comment: Perf ormed at: [id number] [place], [place] [id number] PhD Johanny Nieto Performed By: #### 2 257583, [id number], [id number], [id number], [id number], [id number], [id number] #### [facility] [address] [place] [address] TgAb+Thyroglobulinon 024 Thyroglobulin Ab Qn [IU]/mL Invalid Interpretation Code 0.0-0.9 [facility] Comment on above: Result Comment: Thyr oglobulin Antibody measured by [employer] It should be noted that the presence of thyroglobulin antibodies may not be pathogenic nor diagnostic, especially at very low levels. The assay manager mechanical has found that four percent of individuals without evidence of thyroid disease or autoimmunity will have positive TgAb levels up to 4 IU/mL. Performed at: [facility] [address] [place] [address] [id number] PhD Johanny Nieto Performed By: #### 2 042363, [id number], 02508857, 9232147, [id number], [id number], [id number] #### [facility] [address] [place] [address] Thyroid Perox.tpo Abon 11-19 TPO Ab Qn [IU]/mL Invalid Interpretation Code 0-34 [facility] Comment on above: Result Comment: Perf ormed at: [facility] [address] [place], [place] [id number] PhD Johanny Nieto Performed By: #### 2 382107, [id number], [id number], 0647915, [id number], [id number], [id number] #### [facility] [address] [place] [address] BhCG Quanton 11-19-2023 HCG.beta subunit Qn 86 m[IU]/mL High 1-3 [facility] Comment on above: Result Comment: 'F N ON < 1 - 3' ' 0.2 - 1 WEEK = 5 TO 50' ' 1 - 2 WEEKS = 50 - 500' ' 2 - 3 WEEKS = 100 - 5000' ' 3 - 4 WEEKS = 500 - 28064' ' 4 - 5 WEEKS = 1000 - 14178' ' 5 - 6 WEEKS = 16944 - 098542' ' 6 - 8 WEEKS = 03033 - 517836' ' 8 - 12 WEEKS = 84806 - 389283' Performed By: #### 2 [id number] #### [facility] [address] [place] [address] CHEMISTRYOrdered By: SYSTEM SYSTEM on 11-19-2023 HCG.beta [...] 3 - 4 WEEKS = 500 - 54267' ' 4 - 5 WEEKS = 1000 - 93903' ' 5 - 6 WEEKS = 01130 - 241120' ' 6 - 8 WEEKS = 42177 - 100155' ' 8 - 12 WEEKS = 06933 - 261119' Iron [Mass/Vol] 161 ug/dL High 35 - 153 mcg/dL Rem[facility] Chem Iron binding capacity [Mass/Vol] 316 ug/dL Normal 250 - 400 mcg/dL [facility] Transferrin [Mass/Vol] 226 mg/dL Normal 200 - 370 mg/dL [facility] TSH Qn 1.53 m[IU]/L Normal 0.34 - 5.60 mcIU/mL Remisol Chem Consent for Treatmenton Consent for Treatment [id number] #1.00TIFF Normal [facility] Ironon 11-19-2023 Iron [Mass/Vol] 161 microgram/dL High 35-153 [facility] Comment on above: Performed By: #### 2 594979, 11086950, 83441477, 8648548, 353222710, [id number], [id number] #### [facility] [address] [place] [address] Physician Orderon 11-19-2023 Physician Order [id number] #1.00TIFF Normal [facility] TIBC Calculatedon 11-19-2023 Iron binding capacity [Mass/Vol] 316 microgram/dL Normal 250-400 [facility] Comment on above: Performed By: #### 2 904433, 06096444, 69422737, 1657950, [id number], [id number], [id number] #### [facility] [address] [id number] Transferrin [Mass/Vol] 226 mg/dL Normal 200-370 [facility] Comment on above: Performed By: #### 2 272041, 84890732, 78378806, 5347924, [id number], [id number], [id number] #### [facility] [address] [place] [address] TSH With T4fr Reflexon 11-18 TSH Qn 1.53 m[IU]/L Normal 0.34-5.60 [facility] Comment on above: Performed By: #### 2 506066, 09296937, 99297381, 6580302, [id number], [id number], [id number] #### [facility] [address] [place] [address] TSHon 07-12-2020 TSH 0.756 uIU/mL Normal 0.470-4.680 [facility] Comment on above: Performed By: #### T SH #### [facility] [address] [place], [place] [address] Jayne Hamm TSH RANGE SEE BELOW Normal [facility] Comment on above: Result Comment: <0.3 4 UIU/ml HYPERTHYROID 0.34-5.60 UIU/ml EUTHYROID >5.60 UIU/ml HYPOTHYROID Performed By: #### T SH #### [facility] [address] [place] [id number] Jayne Noris CBC AUTO DIFFon 06-25-2020 BASO # 0.1 103/ul Normal 0.0-0.1 [facility] Comment on above: Performed By: #### C BC #### [facility] [address] [place] [address] Jayne Noris Basophils/100 WBC (Bld) 1.2 % Normal 0.2-2.0 [facility] Comment on above: Performed By: #### C BC #### [facility] [address] [place] [address] Jayne Noris EO # 0.2 103/ul Normal 0.0-0.[address] [facility] Comment on above: Performed By: #### C BC #### [facility] [address] [place] [address] Jayne Noris Eosinophils/100 WBC (Bld) 2.6 % Normal 0.9-7.0 [facility] Comment on above: Performed By: #### C BC #### [facility] [address] [place] [address] Jayne Noris Erythrocyte distribution width (RBC) [Ratio] 12.0 % Normal 11.0-15.0 [facility] Comment on above: Performed By: #### C BC #### [facility] [address] [place], [place] [address] Jayne Noris Hematocrit (Bld) [Volume fraction] 40.7 % Normal 36.0-48.0 [facility] Comment on above: Performed By: #### C BC #### [facility] [address] [place], [place] [address] Jayne Noris Hemoglobin (Bld) [Mass/Vol] 13.6 g/dL Normal 12.0-16.[address] [facility] Comment on above: Performed By: #### C BC #### [facility] [address] [place] [address] Jayne Noris IG # 0.01 10e3/ul Normal 0.00-0.[address] [facility] Comment on above: Performed By: #### C BC #### [facility] [address] [place], [place] [address] Jayne Noris IG % 0.2 % Normal 0.0-0.[address] [facility] Comment on above: Performed By: #### C BC #### [facility] [address] [place], [place] [address] Jayne Noris LYMPH # 1.9 103/ul Normal 1.2-3.[address] [facility] Comment on above: Performed By: #### C BC #### [facility] [address] [place], [place] [address] Jayne Noris Lymphocytes/100 WBC (Bld) 32.5 % Normal 20.5-60.[address] [facility] Comment on above: Performed By: #### C BC #### [facility] [address] [place], [place] [address] Jayne Noris MANUAL DIFF REQ NO Normal [facility] Comment on above: Performed By: #### C BC #### [facility] [address] [place], [place] [address] Jayne Noris MCH (RBC) [Entitic mass] 31.3 pg Normal 26.7-34.[address] [facility] Comment on above: Performed By: #### C BC #### [facility] [address] [place], [place] [address] Jayne Noris MCHC (RBC) [Mass/Vol] 33.4 g/dL Normal 29.9-35.[address] [facility] Comment on above: Performed By: #### C BC #### [facility] [address] [place] [address] Jayne Noris MCV (RBC) [Entitic vol] 93.6 fL Normal 81.0-99.[address] [facility] Comment on above: Performed By: #### C BC #### [facility] [address] [place], [place] [address] Jayne Noris MONO # 0.6 103/ul Normal 0.3-0.[address] [facility] Comment on above: Performed By: #### C BC #### [facility] [address] [place], [place] [address] Jayne Noris Monocytes/100 WBC (Bld) 10.4 % Normal 1.7-12.0 [facility] Comment on above: Performed By: #### C BC #### [facility] [address] [place] [address] Jayne Hamm NEUT # 3.1 103/ul Normal 1.4-6.5 [facility] Comment on above: Performed By: #### C BC #### [facility] [address] [place] [address] Jayne Hamm Neutrophils/100 WBC (Bld) 53.1 % Normal 43.0-75.0 [facility] Comment on above: Performed By: #### C BC #### [facility] [address] [place] [address] Jayne Hamm Platelet mean volume (Bld) [Entitic vol] 8.9 fL Critically low 9.5-13.5 [facility] Comment on above: Performed By: #### C BC #### [facility] [address] [place] [address] Jayne Cruzen PLT 265 103/ul Normal 150-[address] [facility] Comment on above: Performed By: #### C BC #### [facility] [address] [place] [address] Jayne Cruzen RBC 4.35 106/ul Normal 4.20-5.[address] [facility] Comment on above: Performed By: #### C BC #### [facility] [address] [place] [address] Jayne Hamm WBC 5.8 103/ul Normal 4.0-11.[address] [facility] Comment on above: Performed By: #### C BC #### [facility] [address] [place] [address] Jayne Hamm PREG QUANT HCGon 06-25-2020 HCG QUANT 1.00 mIU/mL Normal [facility] Comment on above: Performed By: #### P REGQNT #### [facility] [address] [place] [address] Jaynejeremías Hamm HCG RANGE SEE BELOW Normal [facility] Comment on above: Result Comment: 5-50 0-1 WEEK 40-300 1-2 WEEKS 100-1,000 2-3 WEEKS 500-6,000 3-4 WEEKS 5,000-200,000 1-2 MONTHS 10,000-100,000 2-3 MONTHS 3,000-50,000 2ND TRIMESTER 1,000-50,000 3RD TRIMESTER Performed By: #### P REGQNT #### [facility] [address] [place] [address] Jayne Hamm PAP ACOG PANEL 2: 21 to 29on 05-06-2020 . . Normal [facility] Comment on above: Performed By: #### 4 [id number] #### [facility] [address] [place] [address] Jayne Hamm Age Gdln ACOG Testing 22- [facility] Comment on above: Performed By: #### 4 [id number] #### [facility] [address] [place] [address] Jayne Hamm DIAGNOSIS: Comment [facility] Comment on above: Result Comment: NEGA TIVE FOR INTRAEPITHELIAL LESION OR MALIGNANCY. Performed By: #### 4 [id number] #### [facility] [address] [place] [address] Jayne Hamm Methodology: Comment [facility] Comment on above: Result Comment: This liquid based SurePath(R) pap test was screened with the assistance of an image guided system. Performed By: #### 4 [id number] #### [facility] [address] [place], [place] [address] Jayne Hamm Note: Comment [facility] Comment on above: Result Comment: The Pap smear is a screening test designed to aid in the detection of premalignant and malignant conditions of the uterine cervix. It is not a diagnostic procedure and should not be used as the sole means of detecting cervical cancer. Both false-positive and false-negative reports do occur. . Performed By: #### 4 [id number] #### [facility] [address] [place] [address] Jayne Hamm Performed by: Comment Normal [facility] Comment on above: Result Comment: Suman Rdz, Oven Operator (ASCP) Performed By: #### 4 [id number] #### [facility] [address] [place] [address] Jayne Noris Reflex Criteria: Comment Normal [facility] Comment on above: Result Comment: The HPV DNA reflex criteria were not met with this specimen result therefore, no HPV testing was performed. . Performed By: #### 4 [id number] #### [facility] [address] [place] [address] Jaynejeremías Hamm Specimen adequacy: Comment Normal [facility] Comment on above: Result Comment: Sati sfactory for evaluation. Endocervical and/or squamous metaplastic cells (endocervical component) are present. Performed By: #### 4 [id number] #### [facility] [address] [place] [address] Jayne Noris US PELVIS AND TRANSVAGon US [...] DARLINE ESPITIA Date: 2020-04-30 14:54 Normal [facility] Vital Signs Date Time Vital Sign Value Performing Clinician Facility 06-05-2024 10:48-0400 Body weight 80.34 kg Server Density DO Work Phone: [facility] 06-05-2024 10:48-0400 Diastolic blood pressure 64 mm[Hg] [employer] Work Phone: [facility] 06-05-2024 10:48-0400 Systolic blood pressure 100 mm[Hg] Won Rueda DO Work Phone: [facility] 12-10-2023 09:18-0400 Diastolic blood pressure 84 mm[Hg] Hill Jacobsen Work Phone: [facility] 12-10-2023 09:18-0400 Heart rate 101 /min Hill Jacobsen Work Phone: [facility] 12-10-2023 09:18-0400 Respiratory rate 12 /min Hill Jacobsen Work Phone: [facility] 12-10-2023 09:18-0400 Systolic blood pressure 132 mm[Hg] Hill Jacobsen Work Phone: [facility] 11-02-2023 14:27-0400 Body height 180.3 cm Earle Chen MD Work Phone: [facility] 11-02-2023 14:27-0400 Body mass index (BMI) [Ratio] 20.04 kg/m2 Earle Chen MD Work Phone: [facility] 11-02-2023 14:27-0400 Body weight 65.18 kg Earle Chen MD Work Phone: [facility] 11-02-2023 14:27-0400 Diastolic blood pressure 80 mm[Hg] Earle Chen MD Work Phone: [facility] 11-02-2023 14:27-0400 Systolic blood pressure 110 mm[Hg] Earle Chen MD Work Phone: [facility] 09-14-2023 11:30-0500 Body height 180.34 cm Lucila Arnett Other [facility] 09-14-2023 11:30-0500 Body mass index (BMI) [Ratio] 20.92 kg/m2 Lucila Arnett Other [employer] Other 09-14-2023 11:30-0500 Body weight 68.04 kg Lucila Melquiades Other [employer] Other 09-14-2023 11:30-0500 Body weight 68.03 kg [facility] 09-14-2023 11:30-0500 Diastolic blood pressure 68 mm[Hg] Lucila Melquiades Other [facility] 09-14-2023 11:30-0500 Respiratory rate 16 /min Lucila Melquiades Other [employer] Other 09-14-2023 11:30-0500 SaO2% (BldA) [Mass fraction] 100 % Lucila Melquiades Other [employer] Other 09-14-2023 11:30-0500 Systolic blood pressure 110 mm[Hg] Lucila Melquiades Other [facility] 08-03-2023 10:00-0500 Body height 180.34 cm Lucila Melquiades Other [employer] Other 08-03-2023 10:00-0500 Body mass index (BMI) [Ratio] 20.78 kg/m2 Lucila Arnett Other [employer] Other 08-03-2023 10:00-0500 Body weight 67.59 kg Lucila Melquiades Other [employer] Other 08-03-2023 10:00-0500 Diastolic blood pressure 66 mm[Hg] Lucila Vidyar Other [employer] Other 08-03-2023 10:00-0500 SaO2% (BldA) [Mass fraction] 98 % Lucila Melquiades Other [employer] Other 08-03-2023 10:00-0500 Systolic blood pressure 100 mm[Hg] Lucila Melquiades Other [employer] Other Encounters Encounter Date Encounter Type Care Provider Facility Start: 06-23-2024 End: 06-23-2024 Bamboo flowsheet Won Marybeth DO Work Phone: [facility] Start: 06-23-2024 End: 06-23-2024 Bamboo flowsheet Won Marybeth DO Work Phone: [facility] Start: 06-05-2024 End: 06-05-2024 Bamboo flowsheet Won Marybeth DO Work Phone: [facility] Start: 06-05-2024 End: 06-05-2024 Bamboo flowsheet Won Marybeth DO Work Phone: [facility] Start: 06-05-2024 End: 06-05-2024 Office outpatient visit 15 minutes Won Marybeth DO Work Phone: [facility] Comment on above: 32 [...] 03-31-2024 End: 03-31-2024 ambulatory WON R MARYBETH [facility] Start: 03-27-2024 End: 03-27-2024 ambulatory WON MARYBETH Not Available Start: 03-25-2024 End: 03-25-2024 ambulatory WON R [facility] Start: 03-13-2024 End: 03-13-2024 ambulatory PEDRO TABOR Not Available Start: 02-28-2024 End: 02-28-2024 ambulatory WON MARYBETH Not Available Start: 02-25-2024 End: 02-25-2024 ambulatory WON R [facility] Start: 02-13-2024 End: 02-13-2024 ambulatory WON MARYBETH Not Available Start: 01-30-2024 End: 01-30-2024 ambulatory WON MARYBETH Not Available Start: 01-21-2024 End: 01-21-2024 ambulatory WON R [facility] Start: 01-17-2024 End: 01-17-2024 ambulatory WON MARYBETH Not Available Start: 01-03-2024 End: 01-03-2024 ambulatory WNO MARYBETH Not Available Start: 12-26-2023 End: 12-26-2023 ambulatory WON MARYBETH Not Available Start: 12-13-2023 End: 12-13-2023 ambulatory WON MARYBETH Not Available Start: 12-10-2023 End: 12-11-2023 ambulatory HAKEEM YODER [facility] Start: 12-10-2023 End: 12-10-2023 Encounter identifier Hill Jacobsen Work Phone: [facility] Start: 12-06-2023 End: 12-07-2023 ambulatory HAKEEM YODER [facility] Start: 12-03-2023 End: 12-04-2023 ambulatory HAKEEM YODER [facility] Start: 11-29-2023 End: 11-30-2023 ambulatory HAKEEM YODER [facility] Start: 11-26-2023 End: 11-27-2023 ambulatory HAKEEM YODER [facility] Start: 11-23-2023 End: 11-24-2023 ambulatory HAKEEM YODER [facility] Start: 11-21-2023 End: 11-22-2023 ambulatory HAKEEM YODER [facility] Start: 11-19-2023 End: 11-20-2023 ambulatory 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 Start: 11-14-2023 End: 11-14-2023 ambulatory [facility] Work Phone: Start: 11-14-2023 End: 11-14-2023 Patient encounter procedure [facility] Phys[facility] Work Phone: Start: 11-02-2023 ambulatory EARLE CHEN Facility:[facility] Start: 11-02-2023 End: 11-02-2023 Office outpatient new 60 minutes Earle Chen MD Work Phone: [facility] Comment on above: Endometriosis (Prima ry Dx); Pelvic pain; Myalgia of pelvic floor; Dysmenorrhea; Dyspareunia in female; Nausea and vomiting, unspecified vomiting type; Bladder pain; Anxiety Start: 10-17-2023 End: 10-17-2023 Patient encounter procedure [facility] Physician [facility] Work Phone: Start: 09-14-2023 End: 09-14-2023 ambulatory Lucila Arnett Other [employer] Other Start: 09-14-2023 Office outpatient vi sit 25 minutes Lucila Arnett [facility] Start: 09-14-2023 End: 09-14-2023 Patient encounter procedure [facility] Physician [facility] Start: 08-09-2023 End: 08-09-2023 ambulatory Lucila Arnett Other [employer] Other Start: 08-09-2023 Telephone encounter Lucila Dan her [facility] Start: 08-03-2023 End: 08-03-2023 ambulatory Lucila Melquiades Other [employer] Other Start: 08-03-2023 Office outpatient ne w 30 minutes Lucila Melquiades [facility] Start: 08-03-2023 Telephone encounter Lucila Sanabriamechelle her [facility] Start: 07-12-2020 End: 07-13-[address] WON RUEDA Facility:[facility] Start: 06-25-2020 End: 06-25-[address] WNO RUEDA Facility:[facility] Start: 04-30-2020 End: 05-01-2020 ambulatory [...] Routine [facility] [address] [place] [address] Won Rueda, DO [address] [place] [address] [facility] Start: 06-30-2024 End: 06-30-2024 Professional / ancillary services management 06/30/2024 10:00 AM EST Ancillary Procedure [facility] [address] [place] [address] [facility] Start: 06-23-2024 End: 06-23-2024 Patient encounter procedure [facility] Comment on above: Arrived Start: 06-05-2024 End: 06-05-2024 Patient encounter procedure 06/05/2024 10:40 AM EDT Routine [facility] [address] [place] [id number] Won Rueda DO [address] [place] [address] Arrived [facility] Comment on above: Arrived Start: 11-02-2023 End: 11-01-2024 MR Pelvis WO and W contrast IV MRI PELVIS WITH AND WITHOUT CONTRAST Imaging Routine Endometriosis Pelvic pain Expected: 11/02/2023, Expires: 11/01/2024 [facility] Comment on above: Expected: 11/02/2023 , Expires: 11/01/2024 Start: 10-17-2023 Patient referral [facility] Work Phone: Start: 04-20-2023 COVID-19 VACCINE ( season) COVID-19 VACCINE ( season) [facility] Start: 04-20-2023 Influenza vaccination INFLUENZA VACC INE (#1) [facility] Start: 2017 Screening for malign ant neoplasm of cervix CERVICAL CANCER SCREENING DISCUSSION [facility] Start: 11-08-2015 Hepatitis B vaccination HEP B VACCINE (1 of 3 - 19+ 3-dose series) [facility] Start: 11-08-2015 Third diphtheria, te tanus and acellular pertussis (DTaP) vaccination TDAP (ADULT) [facility] Start: 2012 Screening for Chlamy david trachomatis CHLAMYDIA SCREEN [facility] Start: 11-08-2011 HIV screening HIV SCREENING DISCUSSION [facility] Start: 11-08-2011 Vaccination for kale n papillomavirus HPV VACCINE ADOL (1 - 3-dose series) [facility] Start: 1996 Hepatitis C screening HEPATITI S C VIRUS SCREENING [facility] Start: 1996 Screening for Chlamy david trachomatis GONORRHEA SCREEN [facility] Start: 1996 Tetanus vaccination TETANUS [facility] Patient referral [facility] Work Phone: Payers Date Payer Category Payer Medicaid [id number] 2024 Medicaid [id number] 2023 [employer] ( and others) [id number] 2023 [employer] ( and others) [facility] [id number] 2023-Present [address] [place] [address] [id number] 2023 [employer] ( and others) [id number] 1996 Unknown [id number] 2.16.840.1.271143.3.579.2.5 93 1996 Unknown [id number] 2.16.840.1.811479.3.579.2.5 93 1996 Unknown [id number] 2.16.840.1.236167.3.579.2.5 93 1996 Unknown [id number] 2.16.840.1.803225.3.579.2.5 93 1996 Unknown [id number] 2.16.840.1.227151.3.579.2.5 93 1996 Unknown [id number] 2.16.840.1.077448.3.579.2.5 94 1996 Unknown [id number] 2.16.840.1.227986.3.579.2.7 27 1996 Unknown [id number] 2.16.840.1.752395.3.579.2.1 143 1996 Unknown [id number] 2.16.840.1.418109.3.579.2.1 143 1996 Unknown [id number] 2.16.840.1.702790.3.579.2.1 143 1996 Unknown [id number] 2.16.840.1.707724.3.579.2.1 143 1996 Unknown [id number] 2.16.840.1.769585.3.579.2.1 143 1996 Unknown [id number] 2.16.840.1.253124.3.579.2.1 143 1996 Unknown [id number] 2.16.840.1.910729.3.579.2.1 143 1996 Unknown [id number] 2.16.840.1.497262.3.579.2.1 286 1996 Unknown [id number] 2.16840.1.777186.3.579.2.1 286 1996 Unknown [id number] 2.16.840.1.448412.3.579.2.1 286 1996 Unknown [id number] 2.16.840.1.320711.3.579.2.1 286 1996 Unknown [id number] 2.16.840.1.168156.3.579.2.1 286 1996 Unknown [id number] 2.16.840.1.004194.3.579.2.1 286 1996 Unknown [id number] 2.16.840.1.368683.3.579.2.1 259 1996 Unknown [id number] 2.16.840.1.859664.3.579.2.1 259 1996 Unknown [id number] 2.16.840.1.912482.3.579.2.1 259 1996 Unknown [id number] 2.16.840.1.140317.3.579.2.1 259 1996 Unknown [id number] 2.16.840.1.942543.3.579.2.1 259 1996 Unknown [id number] 2.16.840.1.375581.3.579.2.1 259 1996 Unknown [id number] 2.16.840.1.330874.3.579.2.1 259 1996 Unknown [id number] 2.16.840.1.692852.3.579.2.1 259 1996 Unknown [id number] 2.16.840.1.112153.3.579.2.1 259 1996 Unknown [id number] 2.16.840.1.904332.3.579.2.1 259 1996 Unknown [id number] 2.16.840.1.353595.3.579.2.1 259 1996 Unknown [id number] 2.16.840.1.947106.3.579.2.1 259 1996 Unknown [id number] 2.16.840.1.141839.3.579.2.1 259 1996 Unknown [id number] 2.16.840.1.903895.3.579.2.1 259 1959 [employer] ( and others) [id number] 1959 [employer] ( and others) [id number] [employer] ( and others) [id number] 2.16.840.1.234107.19 Social History Date Type Detail Facility Start: 11-02-2023 Sex Assigned At [facility] Start: 09-30-2017 End: 11-02-2023 Tobacco smoking status NHIS Never smoked tobacco [facility] Start: 11-02-2023 Tobacco use and exposure Smokeless tobacco non-user [facility] Start: 11-02-2023 Alcoholic beverage intake Lifetime non-drinker (finding) [facility] Start: 11-02-2023 History of Social function [facility] Start: 1996 Sex assigned at Not on file [facility] Start: 1996 Sex Assigned At Female [facility] Start: 12-10-2023 Tobacco smoking status NHIS Unknown if ever smoked [facility] Start: 12-10-2023 Alcohol intake Alcohol Use Details [facility] Start: 09-04-2023 Sexual Orientation Lesbian, lynch or homosexual [facility] Start: 11-03-2023 [facility] Clinical Notes 06-25-2020 to 06-05-2024 Zakiya [...] ondansetron 4 mg disintegrating tablet - Active Otfkitjc-Zoc-Mj-FA ( 1 + IRON PO) Daily RT [...] Past Medical History: Diagnosis Date Anxiety Depression ([facility]) Endometriosis OCD (obsessive compulsive disorder) ([facility]) PTSD (post-traumatic stress disorder) ([facility]) HISTORY PAST MEDICAL HISTORY SOCIAL HISTORY Past Medical History: Diagnosis Date Anxiety Depression ([facility]) Endometriosis OCD (obsessive compulsive disorder) ([facility]) PTSD (post-traumatic stress disorder) ([facility]) Social History Tobacco Use [...] nursing note reviewed. Exam conducted with a chinese teacher present. Vitals: There is no height or [...] by Zakiya Traylor LPN on behalf of: Wno Rueda DO documented in this encounter [facility] 11-19-2023 Evaluation + Plan note Diagnostic Tests PendingT3 Free 11/19/23Thyroid Perox.tpo Ab 11/19/23TgAb+Thyroglobulin,CHING or ARLEN 11/19/[address] [facility] 11-02-2023 History of Present illness Narrative GYNECOLOGY CONSULT NOTE REASON FOR VISIT Endometriosis Pelvic pain HISTORY OF PRESENT ILLNESS Ms. Medrano is a 27 y.o. (NSVDx2) who presents for consultation regarding endometriosis, pelvic pain. Records review: Moved back from [place] to [place] (2021) First diagnosed in 2017 Has had [...] tried to get her medical records in [place], but they would not send them. She [...] She had a women's health doctor in [facility] who told her she had stage IV endometriosis. She is no longer on the progesterone. Has tried vaginal valium does not help Her 2 previous pregnancies were with a previous partner. She and her are trying for another now. No BA in [place] Partner has not had a SA yet [...] patient today. 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 Risk assessment was done. Patient is [...] Pt to call with any worsening symptoms. [employer] Other 12-21-2023 Evaluation note* Encounter Date Diagnosis Assessment Notes Treatment Notes Treatment Clinical Notes Jul, Generalized anxiety disorder (ICD-10 - F41.1) Jul, Endometriosis (ICD-1 0 - N80.9) [employer] Other 12-15-2023 Evaluation note* Encounter Date Diagnosis [...] educated on the risks and benefits of chcf use. Risk assessment was done as well [...] intractable, unspecified migraine type (ICD-10 - G43.909) [facility] [employer] Other 11-06-2020 NoteOPERATIVE NOTE OPERATION DATE: 06-25-20 ANESTHETIC:General. 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 PREOPERATIVE DIAGNOSIS: 1. Dyspareunia. 2. Right [...] lap, and needle counts were correct x2. [facility] Signed and Approved by: DR WON UREDA . 07/30/2020 13:02:00[facility] note* Clinical Note Date No Information [facility] Work Phone: Discharge summary* Clinical Note Date No Information [facility] Work Phone: Evaluation [facility]No [facility] [employer] Other Evaluation note* Diagnosis Endometriosis- Primary Endometriosis, site unspecified Pelvic pain Unspecified symptom associated with female genital organs Myalgia of pelvic floor Dysmenorrhea Dyspareunia in female Nausea and vomiting, unspecified vomiting type Bladder pain Other symptoms involving urinary system Anxiety Anxiety state, unspecified [facility] Onset Date Resolution Status Depression acute Generalized anxiety disorder acute Obsessive compulsive disorder acute PTSD (post-traumatic stress disorder) acute Depression acute Endometriosis acute Generalized anxiety disorder acute Obsessive compulsive disorder acute PTSD (post-traumatic stress disorder) acute TBI (traumatic brain injury) acute [facility] Work Phone: Evaluation note* Type Assessment Date No Information [facility] Work Phone: Evaluation note* Diagnosis 32 weeks gestation of Third trimester state, incidental H/O delivery, currently , first trimester Pelvic pain in female Unspecified symptom associated with female genital organs Cluster headache, not intractable, unspecified chronicity pattern Bilateral leg pain Pain in soft tissues of limb documented [facility] Clinical Note Date No Information [facility] Phone: History general Narrative - Reported* Type Description Date Medical History Anxiety Medical History Stage 4 Endometriosis Medical History Depression with manic episodes Medical History OCD Medical History PTSD Medical History TBI Surgical History Endometriosis surgery x2 Surgical History [place] teeth Surgical History Injections in cervix [employer] Other History of Present illness Narrative* Encounter Date Complaint History Of Prese nt Illness No Information [facility] Phone: Hospital course Narrative No data available for this section [facility] No data available for this section [facility] Date Instruction Additional Infor mation No Information [facility] Phone: Progress note No data available for this section [facility] Clinical Note Date No Information [facility] Phone: Reason for referral (narrative)* Consultation (Routine) - New Request Specialty Diagnoses / Procedures Referred By Contgerardo t Referred To Contact Psychology Diagnoses Pelvic pain Anxiety Earle Chen MD [address] [place] [address] Oksana Luu, PhD [address] [place] [address] Referral ID Status Reason Start Date Expiration Date V isits Requested Visits Authorized [id number] New Request 11/02/2023 11/26/2024 1 1 * Consultation (Routine) - New Request Specialty Diagnoses / Procedures Referred By Contac t Referred To Contact Integrative Medicine Diagnoses Pelvic pain Nausea and vomiting, unspecified vomiting type Earle Chen MD [address] [place] [address] Referral ID Status Reason Start Date Expiration Date V isits Requested Visits Authorized [id number] New Request 11/02/2023 11/26/2024 1 1 * Consultation (Routine) - New Request Specialty Diagnoses / Procedures [facility] Referred To Contact Gynecology Diagnoses Pelvic pain Myalgia of pelvic floor Bladder pain Earle Chen MD [address] [place] [address] Referral ID Status Reason Start Date Expiration Date V isits Requested Visits Authorized [id number] New Request 11/02/2023 11/26/2024 1 1 * MRI/CAT Scan (Routine) - New Request Specialty Diagnoses / Procedures [facility] Referred To Contact Diagnoses Endometriosis Pelvic pain Procedures MRI PELVIS WITH AND WITHOUT CONTRAST [place] MRI, PELVIS, COMBO Earle Chen MD [address] [place] [address] Referral ID Status Reason Start Date Expiration Date V isits Requested Visits Authorized [id number] New Request 11/02/2023 11/26/2024 1 1 [facility] Reason For Referral No Information [facility] Work Phone: Summary Purpose Family History Relationship Condition Age at Onset Recorded Date/T mike father Prediabetes Unknown grandparent Diabetes mellitus Unknown Not Specified Family history of other condition Unknow n Family Member Type Diagnosis Age At Onset No Information Advance Directives Advance Directive Response Recorded Date/ Time Advance Directives No September 10:30am Directive Yes / No Effective Date File Name No Information Reason for Referral Reason *08/06 CALL taryn walton Diagnosis 1 Endometriosis (N80.9 ) Referral Organization [facility] Referring Provider First Name [facility] Referring Provider Last Name [facility] Referring Provider Specialty Nurse Pract itmargie Referred Organization [facility] Referred Provider Jena Suresh Referred Address ,[place], [place],[address] Referred Provider Specialty OB - Gynecol ogy Referral Priority Routine General Notes Valentin Bowmanya 01:18:58 PM >pt has west. we do [...] unspecified migraine type (G43.909) Referral Organization [facility] [employer] [facility] Referring Provider First Name Lucila Referring Provider Last Name Melquiades Referring Provider Specialty Nurse Tatyana serrano Referred Organization [facility] Referred Provider Herbie Arroyo Referred Address [address] [facility], [place],[address] Referred Provider Specialty Neurology Referral Priority Routine General Notes EsvinLesley hunter [...] Diagnosis 1 Endometriosis (N80.9 ) Referral Organization [facility] Referring Provider First Name Lucila Referring Provider Last Name Melquiades Referring Provider Specialty Nurse Tatyana serrano Referred Organization Joselito Bernal [facility] Referred Address [address] [place], [place],[address] Referred Provider Specialty Endocrinolog y Referral Priority [...] and content) DATE CREATED AUTHOR 12/15/2020 [facility] DATE CREATED AUTHOR AUTHOR'S ORGANIZ ATION 11/03/2023 [facility] DATE CREATED AUTHOR AUTHOR'S ORGANIZ ATION 11/20/2023 [facility] DATE CREATED AUTHOR AUTHOR'S ORGANIZ ATION 12/15/2023 [facility] DATE CREATED AUTHOR AUTHOR'S ORGANIZ ATION 04/01/2024 [facility] DATE CREATED AUTHOR AUTHOR'S ORGANIZ ATION 06/07/2024 [facility] dical Specialists EPIC REASON FOR VISIT (unrecogniz ed section and content) Reason Comments Consult Pt diagnosis with En dometriosis in 2018. Patient desire . Specialty Diagnoses / Procedures Referred By Harris t Referred To Contact ROLL OFF DRIVER Diagnoses Endometriosis Lucila Arnett, FLOW MACHINE OPERATOR [address] [place] [address] [place] [address] [facility] [address] [place] [address] Referral ID Status Reason Start Date Expiration Date V isits Requested Visits Authorized [id number] New Request 10/23/2023 11/16/2024 1 1 Care Teams (unrecognized sec tion and content) Team Status: Active Member Role Status Dates Lucila REAL Arnett CONVERTER SKIMMER-C Primary Care Provider Active Team Status: Inactive Member Role Status Dates Lucila REAL Arnett CONVERTER SKIMMER-C Attending Provider Act vinicius Start: September 14, 2023 End: September 14, 2023 Team Status: Inactive Member Role Status Dates Lucila REAL Arnett CONVERTER SKIMMER-C Primary Care Provider, Attending Provider Active Start: October 17, 2023 End: October 17, 2023 Team Status: Inactive Member Role Status Dates Lucila REAL Arnett CONVERTER SKIMMER-C Primary Care Provider, Attending Provider Active Start: November 14, 2023 End: November 14, 2023 Name Effective Dates (start - stop) Status Members No Information Clinic Licensed Practical Nurse Relationship Specialty Start Date End Date Lucila Arnett NP [address] [place] [phone] PCP - General Family Medicine 11/11/23 Clinic Licensed Practical Nurse Relationship Specialty Start Date End Date Lucila Arnett NP [address] [place] [phone] PCP - General Family Medicine 11/11/23 Clinic Licensed Practical Nurse Relationship Specialty Start Date End Date Lucila Arnett NP [address] [place] [address] PCP - General Family Medicine 11/11/23 Goals [...] BE BASED ON THE PRIMARY CLINICAL RECORDS. [facility]. provides no warranty or guarantee of the accuracy or completeness of information in this document.
== END 2024-06-23 21:57 | disposition home or self-care (01) ==
LOC: LAB 21:56
PROVIDERS: PCP Nurse Practitioner Family; Visit Provider Obstetrics & Gynecology
DX: Z34.93 Encounter for supervision of normal pregnancy, unspecified, third trimester (principal)
CPT/HCPCS: 87081; 87150

== ENCOUNTER 2024-06-24 07:20 | Outpatient (OUT) | payer OTHER, MEDICAID, SELFPAY ==
--- OUTSIDE RECORDS SUMMARY | 2024-06-24 07:25 | XMS_ITS | CCD ---
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 Name Role Phone MARYBETH, DR UPTON [...] Care Unavailable MARYBETH, WON Referring Unavailable YODER, HAEKEM Referring Unavailable YODER, HAKEEM Primary Care Unavailable [...] (1 source) traMADol Drug Allergy 0 [facility] Repository (10 sources) traMADol; Translations: [TRAMADOL] Drug Allergy 4 Unknown [facility] (10 sources) Lavender Oil; Translations: [LAVENDER OIL] Drug allergy 4 Unknown [facility] Repository (1 source) lavender (Lavandula angustifolia) Allergy to substance 4 Unknown Reaction [facility] (5 sources) GALCANEZUMAB-GNL M; Translations: [GALCANEZUMAB-GN LM] Propensity to adverse reactions to drug (disorder) 4 [facility] Repository (4 sources) Galcanezumab Propensity to adverse reactions 4 [facility] Work Phone: Medications Current Medications [...] oral solution (1 source) alpha-Adrenergic Agonist, Uncompetitive E-hjwozo-Y-aspartate Receptor Antagonist, Sigma-1 Agonist Start : 09-30 [...] Daily 30 capsule 6 05/05/2024 05/05/2025 Active Uehdhrpx-Vmk-Hc-FA ( 1 + IRON PO) (4 sources) Vclwpunh-Szl-Nw-FA ( 1 + IRON PO) Take by [...] q6hr, # 10 tab(s), Refills(s) 0, Pharmacy: [facility] 1984 Start Date: 09/21/18 Status: Ordered zolpidem [...] UA Negative Negative - 4(70) +++ mg/dL [facility] Blood, UA Positive Negative - 50 Jt/mcL [facility] Comment on above: trace-intact Clarity, UA Clear [facility] Color, UA Yellow [facility] Glucose, UA Negative Negative - 2000(110) ++++ mg/dL [facility] Interpretation and review of laboratory results Abnormal [facility] Ketones, UA Negative Negative - 160(16) ++++ mg/dL [facility] Leukocytes, UA Negative Negative - 500+++ [place]/mcL [facility] Nitrite, UA Negative Negative - Positive [facility] pH, UA 7 5 - 9 [facility] Protein, UA Negative Negative - 2000(20) ++++ mg/dL [facility] Spec Grav, UA 1.02 1 - 1.03 [facility] Urobilinogen, UA 1.0 0.2 - 12 mg/dL [facility] HCG.beta subunit Qnon 2023 hCG Quant [id number] mIU/mL Normal [facility] Comment on above: Order Comment: Pregn [...] method. Performed By: #### 2 1198-7 #### [facility] [address] [place] [address] [facility]CG Quant [id number] mIU/mL Normal [facility] Comment on above: Order Comment: [...] method. Performed By: #### 2 1198-7 #### [facility] [address] [place] [address] HCG.beta subunit Qnon 2023 hCG Quant [id number] mIU/mL Normal [facility] Comment on above: Order Comment: [...] method. Performed By: #### 2 1198-7 #### [facility] [address] [place] [address] HCG.beta subunit Qnon 2023 hCG Quant [id number] mIU/mL Normal [facility] Comment on above: Order Comment: [...] method. Performed By: #### 2 1198-7 #### [facility] [address] [place] [address] HCG.beta subunit Qnon 2023 hCG Quant [id number] mIU/mL Normal [facility] Comment on above: Order Comment: [...] method. Performed By: #### 2 1198-7 #### [facility] [address] [place] [address] HCG.beta subunit Qnon 2023 hCG Quant 776 mIU/mL Normal [facility] Comment on above: Order Comment: [...] method. Performed By: #### 2 1198-7 #### [facility] [address] [place] [address] HCG.beta subunit Qnon 2023 hCG Quant 250 mIU/mL Normal [facility] Comment on above: Order Comment: [...] method. Performed By: #### 2 1198-7 #### [facility] [address] [place] [address] .Thyroglobulin by IMAon Thyroglobulin [Mass/Vol] 5.0 ng/mL Invalid Interpretation Code 1.5-38.5 [facility] Comment on above: Result [...] John Vish Immunometric Assay Performed at: [facility] [address] [id number] PhD Johanny Nieto Performed By: #### 2 336230, [id number], [id number], [id number], [id number], [id number], [id number] #### [facility] [address] [place] [address] T3 Freeon 11-20-2023 Free T3 [Mass/Vol] 3.2 pg/mL Invalid Interpretation Code 2.0-4.4 [facility] Comment on above: Result Comment: Perf ormed at: [facility] [address] [place], [place] [id number] PhD Johanny Nieto Performed By: #### 2 748922, [id number], [id number], [id number], [id number], [id number], [id number] #### [facility] [address] [place] [address] TgAb+Thyroglobulinon 024 Thyroglobulin Ab Qn [IU]/mL Invalid Interpretation Code 0.0-0.9 [facility] Comment on above: Result Comment: Thyr oglobulin Antibody measured by [employer] Methodology It should be noted that the presence of thyroglobulin antibodies may not be pathogenic nor diagnostic, especially at very low levels. The assay yard attendant has found that four percent of individuals without evidence of thyroid disease or autoimmunity will have positive TgAb levels up to 4 IU/mL. Performed at: [facility] [address] [place], [place] [id number] PhD Johanny Nieto Performed By: #### 2 477119, [id number], [id number], 5960609, [id number], [id number], [id number] #### [facility] [address] [place] [address] Thyroid Perox.tpo Abon 11-19 TPO Ab Qn [IU]/mL Invalid Interpretation Code 0-34 [facility] Comment on above: Result Comment: Perf ormed at: [facility] [address] [place], [place] [id number] PhD Johanny Nieto Performed By: #### 2 912575, [id number], [id number], 9366444, [id number], [id number], [id number] #### [facility] [address] [place] [address] BhCG Quanton 11-19-2023 HCG.beta subunit Qn 86 m[IU]/mL High 1-3 [facility] Comment on above: Result Comment: 'F N ON < 1 - 3' ' 0.2 - 1 WEEK = 5 TO 50' ' 1 - 2 WEEKS = 50 - 500' ' 2 - 3 WEEKS = 100 - 5000' ' 3 - 4 WEEKS = 500 - 86971' ' 4 - 5 WEEKS = 1000 - 83941' ' 5 - 6 WEEKS = 03003 - 289897' ' 6 - 8 WEEKS = 93920 - 145222' ' 8 - 12 WEEKS = 06469 - 951797' Performed By: #### 2 [id number] #### [facility] [address] [place] [address] CHEMISTRYOrdered By: SYSTEM SYSTEM on 11-19-2023 HCG.beta [...] 3 - 4 WEEKS = 500 - 35479' ' 4 - 5 WEEKS = 1000 - 01342' ' 5 - 6 WEEKS = 21531 - 149682' ' 6 - 8 WEEKS = 87855 - 276187' ' 8 - 12 WEEKS = 46941 - 814534' Iron [Mass/Vol] 161 ug/dL High 35 - 153 mcg/dL [facility] Iron binding capacity [Mass/Vol] 316 ug/dL Normal 250 - 400 mcg/dL [facility] Transferrin [Mass/Vol] 226 mg/dL Normal 200 - 370 mg/dL [facility] TSH Qn 1.53 m[IU]/L Normal 0.34 - 5.60 mcIU/mL [facility] Chem Consent for Treatmenton Consent for Treatment [id number] #1.00TIFF Normal [facility] Ironon 11-19-2023 Iron [Mass/Vol] 161 microgram/dL High 35-153 [facility] Comment on above: Performed By: #### 2 560205, [id number], [id number], 4098719, [id number], [id number], [id number] #### [facility] [address] [place] [address] Physician Orderon 11-19-2023 Physician Order [id number] #1.00TIFF Normal [facility] TIBC Calculatedon 11-19-2023 Iron binding capacity [Mass/Vol] 316 microgram/dL Normal 250-400 [facility] Comment on above: Performed By: #### 2 752639, [id number], 45434088, 1261625, [id number], [id number], [id number] #### [facility] [address] [place] [address] Transferrin [Mass/Vol] 226 mg/dL Normal 200-370 [facility] Comment on above: Performed By: #### 2 778917, 30886014, 31219939, 3882792, [id number], [id number], [id number] #### [facility] [address] [place] [address] TSH With T4fr Reflexon 11-18 TSH Qn 1.53 m[IU]/L Normal 0.34-5.60 [facility] Comment on above: Performed By: #### 2 323782, [id number], 73316072, 7351909, [id number], [id number], [id number] #### [facility] [address] [place] [address] TSHon 07-12-2020 TSH 0.756 uIU/mL Normal 0.470-4.680 [facility] Comment on above: Performed By: #### T SH #### [facility] [address] [place], [place] [address] Jayne Cruzen TSH RANGE SEE BELOW Normal [facility] Comment on above: Result Comment: <0.3 4 UIU/ml HYPERTHYROID 0.34-5.60 UIU/ml EUTHYROID >5.60 UIU/ml HYPOTHYROID Performed By: #### T SH #### [facility] [address] [place], [place] [id number] Jayne Noris CBC AUTO DIFFon 06-25-2020 BASO # 0.1 103/ul Normal 0.0-0.1 [facility] Comment on above: Performed By: #### C BC #### [facility] [address] [place], [place] [address] Jayne Noris Basophils/100 WBC (Bld) 1.2 % Normal 0.2-2.0 [facility] Comment on above: Performed By: #### C BC #### [facility] [address] [place], [place] [address] Jayne Noris EO # 0.2 103/ul Normal 0.0-0.7 [facility] Comment on above: Performed By: #### C BC #### [facility] [address] [place] [address] Jayne Noris Eosinophils/100 WBC (Bld) 2.6 % Normal 0.9-7.0 [facility] Comment on above: Performed By: #### C BC #### [facility] [address] [place] [address] Jayne Noris Erythrocyte distribution width (RBC) [Ratio] 12.0 % Normal 11.0-15.0 [facility] Comment on above: Performed By: #### C BC #### [facility] [address] [place] [address] Jayne Noris Hematocrit (Bld) [Volume fraction] 40.7 % Normal 36.0-48.0 [facility] Comment on above: Performed By: #### C BC #### [facility] [address] [place] [address] Jayne Noris Hemoglobin (Bld) [Mass/Vol] 13.6 g/dL Normal 12.0-16.0 [facility] Comment on above: Performed By: #### C BC #### [facility] [address] [place] [address] Jayne Noris IG # 0.01 10e3/ul Normal 0.00-0.03 [facility] Comment on above: Performed By: #### C BC #### [facility] [address] [place] [id number] Jayne Noris IG % 0.2 % Normal 0.0-0.5 [facility] Comment on above: Performed By: #### C BC #### [facility] [address] [place], [place] [address] Jayne Noris LYMPH # 1.9 103/ul Normal 1.2-3.8 [facility] Comment on above: Performed By: #### C BC #### [facility] [address] [place], [place] [address] Jaynejeremías Hamm Lymphocytes/100 WBC (Bld) 32.5 % Normal 20.5-60.0 [facility] Comment on above: Performed By: #### C BC #### [facility] [address] [place], [place] [address] Jaynejeremías Hamm MANUAL DIFF REQ NO Normal [facility] Comment on above: Performed By: #### C BC #### [facility] [address] [place] [address] Jayne Noris MCH (RBC) [Entitic mass] 31.3 pg Normal 26.7-34.0 [facility] Comment on above: Performed By: #### C BC #### [facility] [address] [place] [address] Jaynejeremías Hamm MCHC (RBC) [Mass/Vol] 33.4 g/dL Normal 29.9-35.2 [facility] Comment on above: Performed By: #### C BC #### [facility] [address] [place] [address] Jayne Noris MCV (RBC) [Entitic vol] 93.6 fL Normal 81.0-99.0 [facility] Comment on above: Performed By: #### C BC #### [facility] [address] [place], [place] [address] Jayne Noris MONO # 0.6 103/ul Normal 0.3-0.8 [facility] Comment on above: Performed By: #### C BC #### [facility] [address] [place] [address] Jayne Hamm Monocytes/100 WBC (Bld) 10.4 % Normal 1.7-12.0 [facility] Comment on above: Performed By: #### C BC #### [facility] [address] [place] [address] Jayne Hamm NEUT # 3.1 103/ul Normal 1.4-6.5 [facility] Comment on above: Performed By: #### C BC #### [facility] [address] [place] [address] Jayne Hamm Neutrophils/100 WBC (Bld) 53.1 % Normal 43.0-75.0 [facility] Comment on above: Performed By: #### C BC #### [facility] [address] [place] [address] Jayne Hamm Platelet mean volume (Bld) [Entitic vol] 8.9 fL Critically low 9.5-13.5 [facility] Comment on above: Performed By: #### C BC #### [facility] [address] [place] [address] Jaynejeremías Cruzen PLT 265 103/ul Normal 150-450 [facility] Comment on above: Performed By: #### C BC #### [facility] [address] [place] [address] Jaynejeremías Cruzen RBC 4.35 106/ul Normal 4.20-5.40 [facility] Comment on above: Performed By: #### C BC #### [facility] [address] [place] [address] Jayne Hamm WBC 5.8 103/ul Normal 4.0-11.0 [facility] Comment on above: Performed By: #### C BC #### [facility] [address] [place], [place] [phone] Jaynejeremías Cruzen PREG QUANT HCGon 06-25-2020 HCG QUANT 1.00 mIU/mL Normal [facility] Comment on above: Performed By: #### P REGQNT #### [facility] [address] [place] [address] Jayne Noris HCG RANGE SEE BELOW Normal [facility] Comment on above: Result Comment: 5-50 0-1 WEEK 40-300 1-2 WEEKS 100-1,000 2-3 WEEKS 500-6,000 3-4 WEEKS 5,000-200,000 1-2 MONTHS 10,000-100,000 2-3 MONTHS 3,000-50,000 2ND TRIMESTER 1,000-50,000 3RD TRIMESTER Performed By: #### P REGQNT #### [facility] [address] [place] [address] Jayne Hamm PAP ACOG PANEL 2: 21 to 29on 05-06-2020 . . Normal [facility] Comment on above: Performed By: #### 4 [id number] #### [facility] [address] [place], [place] [phone] Jayne Hamm Age Gdln ACOG Testing - [facility] Comment on above: Performed By: #### 4 [id number] #### [facility] [address] [place] [address] Jayne Hamm DIAGNOSIS: Comment [facility] Comment on above: Result Comment: NEGA TIVE FOR INTRAEPITHELIAL LESION OR MALIGNANCY. Performed By: #### 4 [id number] #### [facility] [address] [place] [address] Jayne Hamm Methodology: Comment [facility] Comment on above: Result Comment: This liquid based SurePath(R) pap test was screened with the assistance of an image guided system. Performed By: #### 4 [id number] #### [facility] [address] [place] [address] Jayne Hamm Note: Comment [facility] Comment on above: Result Comment: The Pap smear is a screening test designed to aid in the detection of premalignant and malignant conditions of the uterine cervix. It is not a diagnostic procedure and should not be used as the sole means of detecting cervical cancer. Both false-positive and false-negative reports do occur. . Performed By: #### 4 [id number] #### [facility] [address] [place] [address] Jayne Hamm Performed by: Comment Normal [facility] Comment on above: Result Comment: Suman Rdz, Superintendent Colliery (ASCP) Performed By: #### 4 [id number] #### [facility] [address] [place] [address] Jayne Hamm Reflex Criteria: Comment Normal [facility] Comment on above: Result Comment: The HPV DNA reflex criteria were not met with this specimen result therefore, no HPV testing was performed. . Performed By: #### 4 [id number] #### [facility] [address] [place] [address] Jayne Hamm Specimen adequacy: Comment Normal [facility] Comment on above: Result Comment: Sati sfactory for evaluation. Endocervical and/or squamous metaplastic cells (endocervical component) are present. Performed By: #### 4 [id number] #### [facility] [address] [place] [address] Jayne Hamm US PELVIS AND TRANSVAGon US [...] ESPITIA Date: 2020-04-30 14:54 Normal [facility] Vital Signs Date Time Vital Sign Value Performing Clinician Facility 06-05-2024 10:48-0400 Body weight 80.34 kg [employer] Work Phone: [facility] 06-05-2024 10:48-0400 Diastolic blood pressure 64 mm[Hg] [employer] DO Work Phone: [facility] 06-05-2024 10:48-0400 Systolic blood pressure 100 mm[Hg] Won Rueda DO Work Phone: [facility] 12-10-2023 09:18-0400 Diastolic blood pressure 84 mm[Hg] Hill Jacobsen Work Phone: [facility] 12-10-2023 09:18-0400 Heart rate 101 /min Hill Jacobsen Work Phone: [facility] 12-10-2023 09:18-0400 Respiratory rate 12 /min Hill Jacobsen Work Phone: [facility] 12-10-2023 09:18-0400 Systolic blood pressure 132 mm[Hg] Hill Jacobsen Work Phone: [facility] 11-02-2023 14:27-0400 Body height 180.3 cm Earle Chen MD Work Phone: [facility] 11-02-2023 14:27-0400 Body mass index (BMI) [Ratio] 20.04 kg/m2 Earle Chen MD Work Phone: [facility] 11-02-2023 14:27-0400 Body weight 65.18 kg Earle Chen MD Work Phone: [facility] 11-02-2023 14:27-0400 Diastolic blood pressure 80 mm[Hg] Earle Chen MD Work Phone: [facility] 11-02-2023 14:27-0400 Systolic blood pressure 110 mm[Hg] Earle Chen MD Work Phone: [facility] 09-14-2023 11:30-0500 Body height 180.34 cm Lucila Arnett Other [facility] 09-14-2023 11:30-0500 Body mass index (BMI) [Ratio] 20.92 kg/m2 Lucila Arnett Other [facility] Other 09-14-2023 11:30-0500 Body weight 68.04 kg Lucila Melquiades Other [facility] Other 09-14-2023 11:30-0500 Body weight 68.03 kg [facility] 09-14-2023 11:30-0500 Diastolic blood pressure 68 mm[Hg] Lucila Melquiades Other [facility] 09-14-2023 11:30-0500 Respiratory rate 16 /min Lucila Melquiades Other [facility] Other 09-14-2023 11:30-0500 SaO2% (BldA) [Mass fraction] 100 % Lucila Melquiades Other [facility] Other 09-14-2023 11:30-0500 Systolic blood pressure 110 mm[Hg] Lucila Melquiades Other [facility] 08-03-2023 10:00-0500 Body height 180.34 cm Lucila Melquiades Other [facility] Other 08-03-2023 10:00-0500 Body mass index (BMI) [Ratio] 20.78 kg/m2 Lucila Arnett Other [facility] Other 08-03-2023 10:00-0500 Body weight 67.59 kg Lucila Melquiades Other [facility] Other 08-03-2023 10:00-0500 Diastolic blood pressure 66 mm[Hg] Lucila Arnett Other [facility] Other 12-15-2023 10:00-0500 SaO2% (BldA) [Mass fraction] 98 % Lucila Melquiades Other [facility] Other 08-03-2023 10:00-0500 Systolic blood pressure 100 mm[Hg] Lucila Melquiades Other [facility] Other Encounters Encounter Date Encounter Type Care Provider Facility Start: 06-23-2024 End: 06-23-2024 Bamboo flowsheet Won Marybeth DO Work Phone: [facility] Start: 06-23-2024 End: 06-23-2024 Bamboo flowsheet Won Marybeth DO Work Phone: [facility] Start: 06-23-2024 End: 06-23-2024 ambulatory WON MARYBETH Not Available Start: 06-05-2024 End: 06-05-2024 Bamboo flowsheet Won Marybeth DO Work Phone: [facility] Start: 06-05-2024 End: 06-05-2024 Bamboo flowsheet Won Marybeth DO Work Phone: [facility] Start: 06-05-2024 End: 06-05-2024 Office outpatient visit 15 minutes Won Marybeth DO Work Phone: [facility] Comment on above: 32 [...] Start: 03-31-2024 End: 03-31-2024 ambulatory WON R [facility] Start: 03-27-2024 End: 03-27-2024 ambulatory WON MARYBETH Not Available Start: 03-25-2024 End: 03-25-2024 ambulatory WON R [facility] Start: 03-13-2024 End: 03-13-2024 ambulatory PEDRO TABOR Not Available Start: 02-28-2024 End: 02-28-2024 ambulatory WON MARYBETH Not Available Start: 02-25-2024 End: 02-25-2024 ambulatory WON R [facility] Start: 02-13-2024 End: 02-13-2024 ambulatory WON MARYBETH Not Available Start: 01-30-2024 End: 01-30-2024 ambulatory WON MARYBETH Not Available Start: 01-21-2024 End: 01-21-2024 ambulatory WON R [facility] Start: 01-17-2024 End: 01-17-2024 ambulatory WON MARYBETH Not Available Start: 01-03-2024 End: 01-03-2024 ambulatory WON MARYBETH Not Available Start: 12-26-2023 End: 12-26-2023 ambulatory WON MARYBETH Not Available Start: 12-13-2023 End: 12-13-2023 ambulatory WON MARYBETH Not Available Start: 12-10-2023 End: 12-11-2023 ambulatory HAKEEM YODER [facility] Start: 12-10-2023 End: 12-10-2023 Encounter identifier Hill Jacobsen Work Phone: [facility] [place] Start: 12-06-2023 End: 12-07-2023 ambulatory HAKEEM BEBA [facility] Start: 12-03-2023 End: 12-04-2023 ambulatory HAKEEM BEBA [facility] Start: 11-29-2023 End: 11-30-2023 ambulatory HAKEEM BEBA [facility] Start: 11-26-2023 End: 11-27-2023 ambulatory HAKEEM YODER [facility] Start: 11-23-2023 End: 11-24-2023 ambulatory HAKEEM YODER [facility] Start: 11-21-2023 End: 11-22-2023 ambulatory HAKEEM YODER [facility] Start: 11-19-2023 End: 11-20-2023 ambulatory KHADRA ARNETT Facility[facility] Start: 11-19-2023 End: 11-19-2023 Patient encounter procedure LUCILA ARNETT [facility] Start: 11-14-2023 End: 11-14-2023 ambulatory [facility] Work Phone: Start: 11-14-2023 End: 11-14-2023 Patient encounter procedure [facility] Physician [facility] Work Phone: Start: 11-02-2023 ambulatory EARLE CHEN Facility:[facility] Start: 11-02-2023 End: 11-02-2023 Office outpatient new 60 minutes Earle Chen MD Work Phone: [facility] [place] Comment on above: Endometriosis (Prima ry Dx); Pelvic pain; Myalgia of pelvic floor; Dysmenorrhea; Dyspareunia in female; Nausea and vomiting, unspecified vomiting type; Bladder pain; Anxiety Start: 10-17-2023 End: 10-17-2023 Patient encounter procedure [facility] Physician [facility] Work Phone: Start: 09-14-2023 End: 09-14-2023 ambulatory Lucila Arnett Other [facility] Other Start: 09-14-2023 Office outpatient vi sit 25 minutes Lucila Arnett [facility] Start: 09-14-2023 End: 09-14-2023 Patient encounter procedure [facility] Start: 08-09-2023 End: 08-09-2023 ambulatory Lucila Arnett Other [facility] Other Start: 08-09-2023 Telephone encounter Lucila Ni her [facility] Start: 08-03-2023 End: 08-03-2023 ambulatory Lucila Arnett Other [facility] Other Start: 08-03-2023 Office outpatient ne w 30 minutes Lucila Steveleanne [facility] [facility] Start: 08-03-2023 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 Start: 07-12-2020 End: 07-13-[address] WON [...] Routine [facility] [address] [place] [address] Won Rueda, DO [address] [place], [place] [id number] [facility] Start: 06-30-2024 End: 06-30-2024 Professional / ancillary services management 06/30/2024 10:00 AM EST Ancillary Procedure [facility] [address] [place] [address] [facility] Start: 06-23-2024 End: 06-23-2024 Patient encounter procedure [facility] Comment on above: Arrived Start: 06-05-2024 End: 06-05-2024 Patient encounter procedure 06/05/2024 10:40 AM EDT Routine [facility] [address] [facility] [place] [id number] Won Rueda, [address] [facility] [place] [address] Arrived [facility] Comment on above: Arrived Start: 11-02-2023 End: 11-01-2024 MR Pelvis WO and W contrast IV MRI PELVIS WITH AND WITHOUT CONTRAST Imaging Routine Endometriosis Pelvic pain Expected: 11/02/2023, Expires: 11/01/2024 [facility] Comment on above: Expected: 11/02/2023 , Expires: 11/01/2024 Start: 10-17-2023 Patient referral [facility] Work Phone: Start: 04-20-2023 COVID-19 VACCINE ( season) COVID-19 VACCINE ( season) [facility] Start: 04-20-2023 Influenza vaccination INFLUENZA VACC INE (#1) [facility] Start: 2017 Screening for malign ant neoplasm of cervix CERVICAL CANCER SCREENING DISCUSSION [facility] Start: 11-08-2015 Hepatitis B vaccination HEP B VACCINE (1 of 3 - 19+ 3-dose series) [facility] Start: 11-08-2015 Third diphtheria, te tanus and acellular pertussis (DTaP) vaccination TDAP (ADULT) [facility] Start: 2012 Screening for Chlamy david trachomatis CHLAMYDIA SCREEN [facility] Start: 11-08-2011 HIV screening HIV SCREENING DISCUSSION [facility] Start: 11-08-2011 Vaccination for kale n papillomavirus HPV VACCINE ADOL (1 - 3-dose series) [facility] Start: 1996 Hepatitis C screening HEPATITI S C VIRUS SCREENING [facility] Start: 1996 Screening for Chlamy david trachomatis GONORRHEA SCREEN [facility] Start: 1996 Tetanus vaccination TETANUS [facility] Patient referral [facility] Work Phone: Payers Date Payer Category Payer Medicaid [id number] 2024 Medicaid [id number] 2023 [employer] ( and others) [id number] 2023 [employer] ( and others) [facility] [id number] 2023-Present [address] [place] [address] [id number] .[id number] 2023 [employer] ( and others) [id number] 1996 Unknown [id number] 2.16.840.1.632233.3.579.2.5 93 1996 Unknown [id number] 2.16.840.1.166084.3.579.2.5 93 1996 Unknown [id number] 2.16.840.1.022178.3.579.2.5 93 1996 Unknown [id number] 2.16.840.1.675177.3.579.2.5 93 1996 Unknown [id number] 2.16.840.1.950321.3.579.2.5 93 1996 Unknown [id number] 2.16.840.1.299460.3.579.2.5 94 1996 Unknown [id number] 2.16.840.1.367166.3.579.2.7 27 1996 Unknown [id number] 2.16.840.1.347899.3.579.2.1 143 1996 Unknown [id number] 2.16.840.1.511041.3.579.2.1 143 1996 Unknown [id number] 2.16.840.1.401212.3.579.2.1 143 1996 Unknown [id number] 2.16.840.1.417088.3.579.2.1 143 1996 Unknown [id number] 2.16.840.1.743387.3.579.2.1 143 1996 Unknown [id number] 2.16.840.1.685420.3.579.2.1 143 1996 Unknown [id number] 2.16.840.1.298867.3.579.2.1 143 1996 Unknown [id number] 2.16840.1.864902.3.579.2.1 286 1996 Unknown [id number] 2.16.840.1.767252.3.579.2.1 286 1996 Unknown [id number] 2.16.840.1.237509.3.579.2.1 286 1996 Unknown [id number] 2.16.840.1.075561.3.579.2.1 286 1996 Unknown [id number] 2.16.840.1.315741.3.579.2.1 286 1996 Unknown [id number] 2.16.840.1.241064.3.579.2.1 286 1996 Unknown [id number] 2.16.840.1.190437.3.579.2.1 259 1996 Unknown [id number] 2.16.840.1.923534.3.579.2.1 259 1996 Unknown [id number] 2.16.840.1.166881.3.579.2.1 259 1996 Unknown [id number] 2.16.840.1.046714.3.579.2.1 259 1996 Unknown [id number] 2.16.840.1.551163.3.579.2.1 259 1996 Unknown [id number] 2.16.840.1.408703.3.579.2.1 259 1996 Unknown [id number] 2.16.840.1.110685.3.579.2.1 259 1996 Unknown [id number] 2.16.840.1.699318.3.579.2.1 259 1996 Unknown [id number] 2.16.840.1.107045.3.579.2.1 259 1996 Unknown [id number] 2.16.840.1.049243.3.579.2.1 259 1996 Unknown [id number] 2.16.840.1.387299.3.579.2.1 259 1996 Unknown [id number] 2.16.840.1.317853.3.579.2.1 259 1996 Unknown [id number] 2.16.840.1.983731.3.579.2.1 259 1996 Unknown [id number] 2.16.840.1.947712.3.579.2.1 259 1996 Unknown [id number] 2.16.840.1.471493.3.579.2.1 259 1959 [employer] ( and others) [id number] 1959 [employer] ( and others) [id number] [employer] ( and others) [id number] 2.16.840.1.894559.19 Social History Date Type Detail Facility Start: 11-02-2023 Sex Assigned At [facility] Start: 09-30-2017 End: 11-02-2023 Tobacco smoking status KSIS Never smoked tobacco [facility] Start: 11-02-2023 Tobacco use and exposure Smokeless tobacco non-user [facility] Start: 11-02-2023 Alcoholic beverage intake Lifetime non-drinker (finding) [facility] Start: 11-02-2023 History of Social function [facility] Start: 1996 Sex assigned at Not on file [facility] Start: 1996 Sex Assigned At Female [facility] Start: 12-10-2023 Tobacco smoking status NHIS Unknown if ever smoked [facility] Start: 12-10-2023 Alcohol intake Alcohol Use Details [facility] Start: 09-04-2023 Sexual Orientation Lesbian, lynch or homosexual [facility] Start: 11-03-2023 [facility] Clinical Notes 06-25-2020 to 06-05-2024 [...] ondansetron 4 mg disintegrating tablet - Active Frqzhycg-Hlx-Da-FA ( 1 + IRON PO) Daily RT [...] Past Medical History: Diagnosis Date Anxiety Depression (CMS/HCC) Endometriosis OCD (obsessive compulsive disorder) (CMS/HCC) PTSD (post-traumatic stress disorder) ([facility]) HISTORY PAST MEDICAL HISTORY SOCIAL HISTORY Past Medical History: Diagnosis Date Anxiety Depression (CMS/HCC) Endometriosis OCD (obsessive compulsive disorder) ([facility]/HCC) PTSD (post-traumatic stress disorder) ([facility]) Social History Tobacco Use Smoking [...] nursing note reviewed. Exam conducted with a parimutuel clerk present. Vitals: There is no height or [...] Won Rueda DO documented in this encounter [facility] 11-19-2023 Evaluation + Plan note Diagnostic Tests PendingT3 Free 11/19/23Thyroid Perox.tpo Ab 11/19/23TgAb+Thyroglobulin,CHING or ARLEN 11/19/23 [facility] 11-02-2023 History of Present illness Narrative GYNECOLOGY CONSULT NOTE REASON FOR VISIT Endometriosis Pelvic pain HISTORY OF PRESENT ILLNESS Ms. Medrano is a 27 y.o. (NSVDx2) who presents for consultation regarding endometriosis, pelvic pain. Records review: Moved back from [place] to [place] (2021) First diagnosed in 2017 Has had [...] tried to get her medical records in [place], but they would not send them. She [...] She had a women's health doctor in [facility] who told her she had stage IV endometriosis. She is no longer on the progesterone. Has tried vaginal valium does not help Her 2 previous pregnancies were with a previous partner. She and her are trying for another now. No BA in [place] Partner has not had a SA [...] patient today. documented in this encounter [facility] 09-14-2023 Evaluation note Encounter Date Diagnosis [...] educated on the risks and benefits of longterm use. Risk assessment was done. Patient is [...] Pt to call with any worsening symptoms. 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 Risk assessment was done as [...] intractable, unspecified migraine type (ICD-10 - G43.909) [facility] 11-06-2020 NoteOPERATIVE NOTE OPERATION DATE: 06-25-20 ANESTHETIC:General. FACILITIES ENGINEER:None. PREOPERATIVE DIAGNOSIS: 1. Dyspareunia. 2. Right [...] PADUCAH Signed and Approved by: DR WON RUEDA . 07/30/2020 13:02:00[facility] note* Clinical Note Date No Information [facility] Work Phone: Discharge summary* Clinical Note Date No Information [facility] Work Phone: Evaluation noteNo InformationNorth Coast StreetFire Other Evaluation note* Diagnosis Endometriosis- Primary Endometriosis, site unspecified Pelvic pain Unspecified symptom associated with female genital organs Myalgia of pelvic floor Dysmenorrhea Dyspareunia in female Nausea and vomiting, unspecified vomiting type Bladder pain Other symptoms involving urinary system Anxiety Anxiety state, unspecified [facility] Onset Date Resolution Status Depression acute Generalized anxiety disorder acute Obsessive compulsive disorder acute PTSD (post-traumatic stress disorder) acute Depression acute Endometriosis acute Generalized anxiety disorder acute Obsessive compulsive disorder acute PTSD (post-traumatic stress disorder) acute TBI (traumatic brain injury) acute [facility] Work Phone: Evaluation note* Type Assessment Date No Information [facility] Phone: Evaluation note* Diagnosis 32 weeks gestation of Third trimester state, incidental H/O delivery, currently , first trimester Pelvic pain in female Unspecified symptom associated with female genital organs Cluster headache, not intractable, unspecified chronicity pattern Bilateral leg pain Pain in soft tissues of limb documented in this encounter [facility] Clinical Note Date No Information [facility] Phone: History general Narrative - Reported* Type Description Date Medical History Anxiety Medical History Stage 4 Endometriosis Medical History Depression with manic episodes Medical History OCD Medical History PTSD Medical History TBI Surgical History Endometriosis surgery x2 Surgical History Gay teeth Surgical History Injections in cervix [facility] Other History of Present illness Narrative* Encounter Date Complaint History Of Prese nt Illness No Information [facility] Phone: Hospital course Narrative No data available for this section [facility] No data available for this section [facility] Date Instruction Additional Infor mation No Information [facility] Phone: Progress note No data available for this section [facility] Clinical Note Date No Information [facility] Phone: Reason for referral (narrative)* Consultation (Routine) - New Request Specialty Diagnoses / Procedures Referred By Contac t Referred To Contact Psychology Diagnoses Pelvic pain Anxiety Earle Chen MD [address] [place] [address] Oksana Luu, PhD [address] [place] [address] Referral ID Status Reason Start Date Expiration Date V isits Requested Visits Authorized [id number] New Request 11/02/2023 11/26/2024 1 1 * Consultation (Routine) - New Request Specialty Diagnoses / Procedures Referred By Contac t Referred To Contact Integrative Medicine Diagnoses Pelvic pain Nausea and vomiting, unspecified vomiting type Earle Chen MD [address] [place] [address] Referral ID Status Reason Start Date Expiration Date V isits Requested Visits Authorized [id number] New Request 11/02/2023 11/26/2024 1 1 * Consultation (Routine) - New Request Specialty Diagnoses / Procedures Referred By Contac t Referred To Contact Gynecology Diagnoses Pelvic pain Myalgia of pelvic floor Bladder pain Earle Chen MD [address] [place] [address] Referral ID Status Reason Start Date Expiration Date V isits Requested Visits Authorized [id number] New Request 11/02/2023 11/26/2024 1 1 * MRI/CAT Scan (Routine) - New Request Specialty Diagnoses / Procedures Referred By Contac t Referred To Contact Diagnoses Endometriosis Pelvic pain Procedures MRI PELVIS WITH AND WITHOUT CONTRAST NE MRI, PELVIS, COMBO Earle Chen MD [address] [place] [address] Referral ID Status Reason Start Date Expiration Date V isits Requested Visits Authorized [id number] New Request 11/02/2023 11/26/2024 1 1 [facility] Reason For Referral No Information [facility] Work Phone: Summary Purpose Family History No [...] Endometriosis (N80.9 ) Referral Organization [facility] [employer] angel Referring Provider First Name Lucila Referring Provider Last Name Melquiades Referring Provider Specialty Nurse Pract itioner Referred Organization [facility] Referred Provider Jena Suresh Referred Address ,[place], [place] Referred Provider Specialty OB - Gynecol ogy [...] migraine type (G43.909) Referral Organization [facility] [employer] angel Referring Provider First Name Luclia Referring Provider Last Name Melquiades Referring Provider Specialty Nurse Pract itionealaina Referred Organization [facility] Referred Provider Herbie Arroyo Referred Address [address] [place],[address] Referred Provider Specialty Neurology Referral Priority Routine [...] Diagnosis 1 Endometriosis (N80.9 ) Referral Organization [facility] angel Referring Provider First Name Lucila Referring Provider Last Name Melquiades Referring Provider Specialty Nurse Pract zach Referred Organization [facility] Referred Address [address] [place], [place],[address] Referred Provider Specialty Endocrinolog y Referral Priority [...] and content) DATE CREATED AUTHOR 12/15/[address] [facility] DATE CREATED AUTHOR AUTHOR'S ORGANIZ ATION 11/03/2023 [facility] DATE CREATED AUTHOR AUTHOR'S ORGANIZ ATION 11/20/2023 Joselito Bernal [facility] DATE CREATED AUTHOR AUTHOR'S ORGANIZ ATION 12/15/2023 [facility] DATE CREATED AUTHOR AUTHOR'S ORGANIZ ATION 04/01/2024 [facility] DATE CREATED AUTHOR AUTHOR'S ORGANIZ ATION 06/24/2024 [facility] dical Specialists EPIC REASON FOR VISIT (unrecogniz ed section and content) Reason Comments Consult Pt diagnosis with En dometriosis in 2018. Patient desire . 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 Diagnoses Endometriosis Lucila Arnett, KHADRA [address] [facility] [address] [facility] [address] [place] [address] Referral ID Status Reason Start Date Expiration Date V isits Requested Visits Authorized [id number] New Request 10/23/2023 11/16/2024 1 1 Care Teams (unrecognized sec tion and content) Team Status: Active Member Role Status Dates Lucila Arnett APRN FLATWORK SUPERVISOR-C Primary Care Provider Active Team Status: Inactive Member Role Status Dates Lucila Arnett APRN FLATWORK SUPERVISOR-C Attending Provider Act vinicius Start: September 14, 2023 End: September 14, 2023 Team Status: Inactive Member Role Status Dates Lucila Arnett APRN FLATWORK SUPERVISOR-C Primary Care Provider, Attending Provider Active Start: October 17, 2023 End: October 17, 2023 Team Status: Inactive Member Role Status Dates Lucila Arnett APRN FLATWORK SUPERVISOR-C Primary Care Provider, Attending Provider Active Start: November 14, 2023 End: November 14, 2023 Name Effective Dates (start - stop) Status Members No Information 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 [employer] [facility]. provides no warranty or guarantee of the accuracy or completeness of information in this document.
[2024-06-24 11:21] VITALS: BP 118/65; PULSE 84
== END 2024-06-24 12:24 | disposition home or self-care (01) ==
LOC: FBCO 07:20 → FBC 11:02
PROVIDERS: PCP Nurse Practitioner Family; Visit Provider Obstetrics & Gynecology
DX: O26.893 Other specified pregnancy related conditions, third trimester (principal)
CPT/HCPCS: 59025

== ENCOUNTER 2024-06-27 07:08 | Outpatient (OUT) | payer OTHER, SELFPAY ==
--- OUTSIDE RECORDS SUMMARY | 2024-06-27 07:11 | XMS_ITS | CCD ---
Author Organization [facility] Care Team Providers Care Wall Washer Name Role Phone MARYBETH, DR UPTON Admitting [...] DR UPTON Attending Unavailable Lucila Arnett Unavailable [phone] Unavailable Primary Care Provider Unavailabl e GIUSEPPEAL, EARLE Attending Unavailable LUCILA ARNETT Referring Unavailable LUCILA ARNETT Primary Care Physician [phone] KHADRA ARNETT Attending Unava ilable KHADRA ARNETT [...] (1 source) traMADol Drug Allergy 0 [facility] Repository (12 sources) traMADol; Translations: [TRAMADOL] Drug Allergy 4 Unknown, Hives [facility] (12 sources) Lavender Oil; Translations: [LAVENDER OIL] Drug allergy 4 Unknown [facility] Repository (1 source) lavender (Lavandula angustifolia) Allergy to substance 4 Unknown Reaction [facility] (7 sources) GALCANEZUMAB-GNL M; Translations: [GALCANEZUMAB-GN LM] Propensity to adverse reactions to drug (disorder) 4 [facility] Repository (6 sources) Galcanezumab Propensity to adverse reactions 4 [facility] Healthcare Work Phone: Medications Current Medications Medication [...] aspirin 81 mg delayed release oral tablet (6 sources) Platelet Aggregation Inhibitor, Nonsteroidal Anti-inflammatory Drug take 1 tablet by mouth once daily aspirin 81 MG EC tablet Take 81 mg by mouth Daily Active Blood Glucose Monitoring Suppl (D-Care Glucometer) w/Device kit (6 sources) Start : 04-24 End: 04-24 Blood [...] oral solution (1 source) alpha-Adrenergic Agonist, Uncompetitive C-ccvxcv-X-aspartate Receptor Antagonist, Sigma-1 Agonist Start : 09-30 [...] daily cyclobenzaprine hydrochloride 10 mg oral tablet (7 sources) Muscle Relaxant Start : 04-28 cyclobenzaprine (Flexeril) 10 MG tablet cyclobenzaprine 10 mg tablet - Active 04/28/2023 Active doxepin hydrochloride 10 mg oral capsule (1 source) Tricyclic Antidepressant Start : 11-26 doxepin 10 mg capsule - Active escitalopram 20 mg oral tablet (1 source) Serotonin Reuptake Inhibitor Start : 01-09 escitalopram 20 mg tablet - Active ferrous sulfate (6 sources) take 1 tablet by mouth in the morning Ferrous Sulfate (IRON PO) Take 1 tablet by mouth in the morning. Active ibuprofen 600 mg oral tablet (2 sources) Nonsteroidal Anti-inflammatory Drug Start : 01-27 ibuprofen 600 mg tablet PLEASE SEE ATTACHED FOR DETAILED DIRECTIONS - Active isopropyl alcohol 0.7 ml/ml medicated pad (6 sources) Start : 04-24 Alcohol Swabs (Alcohol Prep Pad) 70 % pads Indications: Elevated glucose tolerance test Apply 1 Pad topically Daily Use four times daily to check FSBS. 150 each 3 04/24/2024 Active magnesium lactate 84 mg extended release oral tablet (6 sources) take 1 tablet by mouth in the morning magnesium lactate CR (Magtab) 84 MG (7MEQ) ER tablet Take 84 mg by mouth in the morning. Active magnesium oxide 400 mg oral tablet (6 sources) Start : 12-18 magnesium oxide (Mag-Ox) [...] omeprazole 20 mg delayed release oral capsule (6 sources) Proton Pump Inhibitor Start : 12-12 End: 12-12 take 1 capsule by mouth before mealtime omeprazole (PriLOSEC) [address] capsule Indications: Heartburn during in first trimester Take 1 capsule (20 mg) by mouth in the morning. Take before meals. Do not crush or chew.. 30 capsule 11 12/13/2023 12/12/2024 Active ondansetron 4 mg disintegrating oral tablet (8 sources) Serotonin-3 Receptor Antagonist Start : 11-29 [...] polysaccharide iron complex 391 mg oral capsule (6 sources) Start: 05-05-2024 End: 05-05-2025 take 1 capsule by mouth once daily iron polysaccharides (ProFe) 391.3 (180 Fe) MG capsule Indications: Low iron Take 1 capsule (391.3 mg) by mouth Daily 30 capsule 6 05/05/2024 05/05/2025 Active Ezkvavns-Qjo-Va-FA ( 1 + IRON PO) (6 sources) Ulgzooew-Nxi-Ry-FA ( 1 + IRON PO) Take by [...] 10 tab(s), Refills(s) 0, Pharmacy: [facility] 1984 Start Date: 09/21/18 Status: Ordered zolpidem tartrate 10 mg oral tablet (6 sources) gamma-Aminobutyr ic Acid-ergic Agonist Start: 05-19-2024 [...] Problem Date Documented Date Episodic/Chronic Abdominal pain (15 sources) Pelvic and perineal pain; Translations: [Pain [...] trimester] Onset: 01-21-2024 Episodic Other complications of (6 sources) Supervision of with other poor reproductive [...] 11-02-2023 Chronic Other and delivery including normal (16 sources) First trimester ; Translations: [Encounter for supervision of normal , unspecified, first trimester] Onset: 01-03-2024 01-03-2024 Episodic Other screening for suspected conditions (not mental disorders or infectious disease) (14 sources) Encounter for screening for malignant neoplasm [...] ] Onset: 02-25-2024 Episodic Residual codes; unclassified (6 sources) Gestation period, 24 weeks; Translations: [24 weeks gestation of ] Onset: 04-10-2024 04-10-2024 Episodic Residual codes; unclassified (2 sources) Gestation period, 32 weeks; Translations: [32 weeks gestation of ] 06-05-2024 Episodic Residual codes; unclassified (2 sources) Gestation period, 35 weeks; Translations: [35 weeks gestation of ] 06-23-2024 Episodic Unclassified (1 source) Details of family - finding 05-29-2014 Unclassified (1 source) labor 06-08-2014 Unclassified (1 source) hx placenta abruption/ PTD Onset: 01-21-2024 Past or Other Problems Problem Classification Problem Date Documented Date Episodic/Chronic Conditions associated with dizziness or vertigo (6 sources) Dizziness; Translations: [Dizziness and giddiness] Onset: 01-03-2024 01-03-2024 Episodic Deficiency and other anemia (1 source) Anemia, unspecified; Translations: [ANEMIA UNSPECIFIED] Onset: 08-02-2020 Episodic Immunizations and screening for infectious disease (1 source) Encounter for screening for human papillomavirus (HPV); Translations: [ENC SCREENING HUMAN PAPILLOMAVIRUS] Onset: 05-05-2020 Episodic Other complications of (6 sources) Vomiting of , unspecified; Translations: [Unspecified vomiting of , unspecified as to episode of care or not applicable] Onset: 01-03-2024 01-03-2024 Episodic Other complications of (6 sources) Heartburn; Translations: [Other specified related conditions, first trimester] Onset: 01-03-2024 01-03-2024 Episodic Other complications of (8 sources) High risk ; Translations: [Supervision of other high risk pregnancies, first trimester] Onset: 01-03-2024 01-03-2024 Episodic Other complications of (6 sources) Abdominal pain in ; Translations: [Other specified related conditions, unspecified trimester] Onset: 01-03-2024 01-03-2024 Episodic Other female genital disorders (1 source) Unspecified hypertrophy of vulva; Translations: [UNSPECIFIED HYPERTROPHY OF VULVA] Onset: 08-02-2020 Episodic Other non-traumatic joint disorders (6 sources) Hip pain; Translations: [Pain in right hip] Onset: 01-03-2024 01-03-2024 Episodic Residual codes; unclassified (4 sources) Other general symptoms and signs; Translations: [OTHER GENERAL SYMPTOMS AND SIGNS] Onset: 07-12-2020 Episodic Residual codes; unclassified (6 sources) History of placental abruption; Translations: [Personal history of other complications of , childbirth and the puerperium] Onset: 01-03-2024 01-03-2024 Episodic Unclassified (1 source) Onset: 08-20-2013 Resolved: 06-08-2014 02-25-2015 Results Test Name Value Interpretation Reference Range Facility Urinalysis macro (dipstick) panel (U)on 06-23-2024 Bilirubin, UA Negative Negative - 4(70) +++ mg/dL [facility] Blood, UA Positive Negative - 50 Jt/mcL [facility] Comment on above: trace Clarity, UA Clear [facility] Color, UA Yellow [facility] Glucose, UA Negative Negative - 2000(110) ++++ mg/dL [facility] Interpretation and review of laboratory results Abnormal [facility] Ketones, UA Negative Negative - 160(16) ++++ mg/dL [facility] Leukocytes, UA Negative Negative - 500+++ [place]/mcL [facility] Nitrite, UA Negative Negative - Positive [facility] pH, UA 7 5 - 9 [facility] Protein, UA Negative Negative - 2000(20) ++++ mg/dL [facility] Spec Grav, UA 1.02 1 - 1.03 [facility] Urobilinogen, UA 2.0 0.2 - 12 mg/dL [facility] Urinalysis macro (dipstick) panel (U)on 06-05-2024 Bilirubin, UA Negative Negative - 4(70) +++ mg/dL [facility] Blood, UA Positive Negative - 50 Jt/mcL [facility] Comment on above: trace-intact Clarity, UA Clear [facility] Color, UA Yellow [facility] Glucose, UA Negative Negative - 1999(110) ++++ mg/dL [facility] Interpretation and review of laboratory results Abnormal [facility] Ketones, UA Negative Negative - 160(16) ++++ mg/dL [facility] Leukocytes, UA Negative Negative - 500+++ [place]/mcL [facility] Nitrite, UA Negative Negative - Positive [facility] pH, UA 7 5 - 9 [facility] Protein, UA Negative Negative - 1999(20) ++++ mg/dL [facility] Spec Grav, UA 1.02 1 - 1.03 [facility] Urobilinogen, UA 1.0 0.2 - 12 mg/dL [facility] HCG.beta subunit Qnon 2023 hCG Quant [id number] mIU/mL Normal [facility] Comment on above: Order Comment: Pregn [...] method. Performed By: #### 2 1198-7 #### [facility] [address] [place] [address] HCG.beta subunit Qnon 2023 hCG Quant 44022 mIU/mL Normal [facility] Comment on above: Order Comment: [...] method. Performed By: #### 2 1198-7 #### [facility] [address] [place] [address] HCG.beta subunit Qnon 2023 hCG Quant [id number] mIU/mL Normal [facility] Comment on above: Order Comment: [...] method. Performed By: #### 2 1198-7 #### [facility] [address] [place] [address] HCG.beta subunit Qnon 2023 hCG Quant 10980 mIU/mL Normal [facility] Comment on above: Order Comment: [...] method. Performed By: #### 2 1198-7 #### [facility] [address] [place] [address] HCG.beta subunit Qnon 2023 hCG Quant 2709 mIU/mL Normal [facility] Comment on above: Order Comment: [...] method. Performed By: #### 2 1198-7 #### [facility] [address] [place] [address] HCG.beta subunit Qnon 2023 hCG Quant 776 mIU/mL Normal [facility] Comment on above: Order Comment: [...] method. Performed By: #### 2 1198-7 #### [facility] [address] [place] [address] HCG.beta subunit Qnon 2023 hCG Quant 250 mIU/mL Normal [facility] Comment on above: Order Comment: [...] method. Performed By: #### 2 1198-7 #### [facility] [address] [place] [address] .Thyroglobulin by IMAon Thyroglobulin [Mass/Vol] 5.0 ng/mL Invalid Interpretation Code 1.5-38.5 [facility] Comment on above: Result Comment: Acco [...] is 0.1 ng/mL Thyroglobulin measured by John View[employer] Immunometric Assay Performed at: [facility] [id number] PhD Johanny Nieto Performed By: #### 2 786659, [id number], [id number], [id number], [id number], [id number], [id number] #### [facility] [address] [place] [address] T3 Freeon 11-20-2023 Free T3 [Mass/Vol] 3.2 pg/mL Invalid Interpretation Code 2.0-4.4 [facility] Comment on above: Result Comment: Perf ormed at: [address] [id number] PhD Johanny Nieto Performed By: #### 2 249560, [id number], [id number], 7621262, [id number], [id number], [id number] #### [facility] [address] [place] [address] TgAb+Thyroglobulinon 024 Thyroglobulin Ab Qn [IU]/mL Invalid Interpretation Code 0.0-0.9 [facility] Comment on above: Result Comment: Thyr oglobulin Antibody measured by John Vish Methodology It should be noted that the presence of thyroglobulin antibodies may not be pathogenic nor diagnostic, especially at very low levels. The assay mash processing operator has found that four percent of individuals without evidence of thyroid disease or autoimmunity will have positive TgAb levels up to 4 IU/mL. Performed at: [facility] [address] [place], [place] [id number] PhD Johanny Nieto Performed By: #### 2 846007, [id number], [id number], 2774705, [id number], [id number], [id number] #### [facility] [address] [place] [address] Thyroid Perox.tpo Abon 11-19 TPO Ab Qn [IU]/mL Invalid Interpretation Code 0-34 [facility] Comment on above: Result Comment: Perf ormed at: [facility] [address] [place], [place] [id number] PhD Johanny Nieto Performed By: #### 2 899189, 83222839, 83722918, 1678840, [id number], [id number], [id number] #### [facility] [address] [place] [address] BhCG Quanton 11-19-2023 HCG.beta subunit Qn 86 [...] 3 - 4 WEEKS = 500 - 03276' ' 4 - 5 WEEKS = 1000 - 56000' ' 5 - 6 WEEKS = 81628 - 785722' ' 6 - 8 WEEKS = 70908 - 256026' ' 8 - 12 WEEKS = 05066 - 276992' Performed By: #### 2 602868 #### [facility] [address] [place] [address] CHEMISTRYOrdered By: SYSTEM SYSTEM on 11-19-2023 HCG.beta [...] 3 - 4 WEEKS = 500 - 64478' ' 4 - 5 WEEKS = 1000 - 81317' ' 5 - 6 WEEKS = 20785 - 855179' ' 6 - 8 WEEKS = 51123 - 316738' ' 8 - 12 WEEKS = 09385 - 226225' Iron [Mass/Vol] 161 ug/dL High 35 - 153 mcg/dL Remisol [facility] Iron binding capacity [Mass/Vol] 316 ug/dL Normal 250 - 400 mcg/dL Rem[facility] Chem Transferrin [Mass/Vol] 226 mg/dL Normal 200 - 370 mg/dL [facility] TSH Qn 1.53 m[IU]/L Normal 0.34 - 5.60 mcIU/mL Remisol Chem Consent for Treatmenton Consent for Treatment [id number] #1.00TIFF Normal [facility] Ironon 11-19-2023 Iron [Mass/Vol] 161 microgram/dL High 35-153 Fis [facility] Comment on above: Performed By: #### 2 017889, [id number], 61245520, 9728492, [id number], [id number], [id number] #### [facility] [address] [place] [address] Physician Orderon 11-19-2023 Physician Order [id number] #1.00TIFF Normal [facility] TIBC Calculatedon 11-19-2023 Iron binding capacity [Mass/Vol] 316 microgram/dL Normal 250-400 [facility] Comment on above: Performed By: #### 2 740477, [id number], 34685921, 2895624, [id number], [id number], 79434712 #### [facility] [address] [place] [address] Transferrin [Mass/Vol] 226 mg/dL Normal 200-370 [facility] Comment on above: Performed By: #### 2 424137, [id number], 19846259, 6743072, [id number], [id number], [id number] #### [facility] [address] [place] [address] TSH With T4fr Reflexon 11-18 TSH Qn 1.53 m[IU]/L Normal 0.34-5.60 [facility] Comment on above: Performed By: #### 2 085655, 31466827, 70432187, 3496302, [id number], [id number], [id number] #### [facility] [address] [id number] TSHon 07-12-2020 TSH 0.756 uIU/mL Normal 0.470-4.680 [facility] Comment on above: Performed By: #### T SH #### [facility] [address] [place] [address] Jayne Noris TSH RANGE SEE BELOW Normal [facility] Comment on above: Result Comment: <0.3 4 UIU/ml HYPERTHYROID 0.34-5.60 UIU/ml EUTHYROID >5.60 UIU/ml HYPOTHYROID Performed By: #### T SH #### [facility] [address] [place], [place] [id number] Jayne Noris CBC AUTO DIFFon 06-25-2020 BASO # 0.1 103/ul Normal 0.0-0.1 [facility] Comment on above: Performed By: #### C BC #### [facility] [address] [place], [place] [address] Jayne Noris Basophils/100 WBC (Bld) 1.2 % Normal 0.2-2.0 [facility] Comment on above: Performed By: #### C BC #### [facility] [address] [place], [place] [address] Jayne Noris EO # 0.2 103/ul Normal 0.0-0.7 [facility] Comment on above: Performed By: #### C BC #### [facility] [address] [place], [place] [address] Jayne Noris Eosinophils/100 WBC (Bld) 2.6 % Normal 0.9-7.0 [facility] Comment on above: Performed By: #### C BC #### [facility] [address] [place] [address] Jayne Noris Erythrocyte distribution width (RBC) [Ratio] 12.0 % Normal 11.0-15.0 [facility] Comment on above: Performed By: #### C BC #### [facility] [address] [place] [address] Jayne Noris Hematocrit (Bld) [Volume fraction] 40.7 % Normal 36.0-48.0 [facility] Comment on above: Performed By: #### C BC #### [facility] [address] [place] [address] Jayne Noris Hemoglobin (Bld) [Mass/Vol] 13.6 g/dL Normal 12.0-16.0 [facility] Comment on above: Performed By: #### C BC #### [facility] [address] [place] [address] Jayne Noris IG # 0.01 10e3/ul Normal 0.00-0.03 [facility] Comment on above: Performed By: #### C BC #### [facility] [address] [place] [address] Jayne Noris IG % 0.2 % Normal 0.0-0.5 [facility] Comment on above: Performed By: #### C BC #### [facility] [address] [place] [address] Jayne Noris LYMPH # 1.9 103/ul Normal 1.2-3.8 [facility] Comment on above: Performed By: #### C BC #### [facility] [address] [place], [place] [id number] Jayne Noris Lymphocytes/100 WBC (Bld) 32.5 % Normal 20.5-60.0 [facility] Comment on above: Performed By: #### C BC #### [facility] [address] [place] [address] Jayne Noris MANUAL DIFF REQ NO Normal [facility] Comment on above: Performed By: #### C BC #### [facility] [address] [place] [address] Jayne Hamm MCH (RBC) [Entitic mass] 31.3 pg Normal 26.7-34.0 [facility] Comment on above: Performed By: #### C BC #### [facility] [address] [place] [address] Jayne Hamm MCHC (RBC) [Mass/Vol] 33.4 g/dL Normal 29.9-35.2 [facility] Comment on above: Performed By: #### C BC #### [facility] [address] [place] [address] Jayne Hamm MCV (RBC) [Entitic vol] 93.6 fL Normal 81.0-99.0 [facility] Comment on above: Performed By: #### C BC #### [facility] [address] [place] [address] Jayne Hamm MONO # 0.6 103/ul Normal 0.3-0.8 [facility] Comment on above: Performed By: #### C BC #### [facility] [address] [place] [address] Jayne Hamm Monocytes/100 WBC (Bld) 10.4 % Normal 1.7-12.0 [facility] Comment on above: Performed By: #### C BC #### [facility] [address] [place] [address] Jayne Hamm NEUT # 3.1 103/ul Normal 1.4-6.5 [facility] Comment on above: Performed By: #### C BC #### [facility] [address] [place] [address] Jayne Hamm Neutrophils/100 WBC (Bld) 53.1 % Normal 43.0-75.0 [facility] Comment on above: Performed By: #### C BC #### [facility] [address] [place], [place] [id number] Jaynejeremías Hamm Platelet mean volume (Bld) [Entitic vol] 8.9 fL Critically low 9.5-13.5 [facility] Comment on above: Performed By: #### C BC #### [facility] [address] [place] [address] Jayne Hamm PLT 265 103/ul Normal 150-450 [facility] Comment on above: Performed By: #### C BC #### [facility] [address] [place] [address] Jayne Hamm RBC 4.35 106/ul Normal 4.20-5.40 [facility] Comment on above: Performed By: #### C BC #### [facility] [address] [address] Jayne Hamm WBC 5.8 103/ul Normal 4.0-11.0 [facility] Comment on above: Performed By: #### C BC #### [facility] [address] [place] [address] Jayne Hamm PREG QUANT HCGon 06-25-2020 HCG QUANT 1.00 mIU/mL Normal [facility] Comment on above: Performed By: #### P REGQNT #### [facility] [address] [place] [address] Jayne Hamm HCG RANGE SEE BELOW Normal [facility] Comment on above: Result Comment: 5-50 0-1 WEEK 40-300 1-2 WEEKS 100-1,000 2-3 WEEKS 500-6,000 3-4 WEEKS 5,000-200,000 1-2 MONTHS 10,000-100,000 2-3 MONTHS 3,000-50,000 2ND TRIMESTER 1,000-50,000 3RD TRIMESTER Performed By: #### P REGQNT #### [facility] [address] [place] [address] Jayne Hamm PAP ACOG PANEL 2: 21 to 29on 05-06-2020 . . Normal [facility] Comment on above: Performed By: #### 4 [id number] #### [facility] [address] [place], [place] [id number] Jayne Hamm Age Gdln ACOG Testing 22- Normal [facility] Comment on above: Performed By: #### 4 [id number] #### [facility] [address] [place], [place] [phone] Jayne Hamm DIAGNOSIS: Comment Normal [facility] Comment on above: Result Comment: NEGA TIVE FOR INTRAEPITHELIAL LESION OR MALIGNANCY. Performed By: #### 4 [id number] #### [facility] [address] [place] [address] Jayne Hamm Methodology: Comment Normal [facility] Comment on above: Result Comment: This liquid based SurePath(R) pap test was screened with the assistance of an image guided system. Performed By: #### 4 [id number] #### [facility] [address] [place] [address] Jayne Hamm Note: Comment Normal [facility] Comment on above: Result Comment: The Pap smear is a screening test designed to aid in the detection of premalignant and malignant conditions of the uterine cervix. It is not a diagnostic procedure and should not be used as the sole means of detecting cervical cancer. Both false-positive and false-negative reports do occur. . Performed By: #### 4 [id number] #### [facility] [address] [place] [address] Jayne Hamm Performed by: Comment Normal [facility] Comment on above: Result Comment: Suman Rdz, Laboratory Apparatus Glass Blower (ASCP) Performed By: #### 4 [id number] #### [facility] [address] [place] [address] Jayne Hamm Reflex Criteria: Comment [facility] Comment on above: Result Comment: The HPV DNA reflex criteria were not met with this specimen result therefore, no HPV testing was performed. . Performed By: #### 4 [id number] #### [facility] [address] [place] [address] Jayne Hamm Specimen adequacy: Comment Normal [facility] Comment on above: Result Comment: Sati sfactory for evaluation. Endocervical and/or squamous metaplastic cells (endocervical component) are present. Performed By: #### 4 [id number] #### [facility] [address] [place] [address] Jayne Hamm US PELVIS AND TRANSVAGon US [...] by: DARLINE ESPITIA Date: 2020-04-30 14:54 Normal [facility] Vital Signs Date Time Vital Sign Value Performing Clinician Facility 06-23-2024 09:56-0500 Body weight 80.74 kg Won Marybeth DO Work Phone: [facility] 06-23-2024 09:56-0500 Diastolic blood pressure 70 mm[Hg] Won Marybeth DO Work Phone: [facility] 06-23-2024 09:56-0500 Systolic blood pressure 112 mm[Hg] Won Marybeth DO Work Phone: [facility] 06-05-2024 10:48-0400 Body weight 80.34 kg Won Marybeth DO Work Phone: [facility] 06-05-2024 10:48-0400 Diastolic blood pressure 64 mm[Hg] Won Marybeth DO Work Phone: [facility] 06-05-2024 10:48-0400 Systolic blood pressure 100 mm[Hg] Won Marybeth DO Work Phone: [facility] 12-10-2023 09:18-0400 Diastolic blood pressure 84 mm[Hg] Hill Jacobsen Work Phone: [facility] 12-10-2023 09:18-0400 Heart rate 101 /min Hill Jacobsen Work Phone: [facility] 12-10-2023 09:18-0400 Respiratory rate 12 /min Hill Jacobsen Work Phone: [facility] 12-10-2023 09:18-0400 Systolic blood pressure 132 mm[Hg] Hill Ann-Marie Work Phone: [facility] 11-02-2023 14:27-0400 Body height 180.3 cm Earle Chen MD Work Phone: [facility] 11-02-2023 14:27-0400 Body mass index (BMI) [Ratio] 20.04 kg/m2 Earle Chen MD Work Phone: [facility] 11-02-2023 14:27-0400 Body weight 65.18 kg Earle Chen MD Work Phone: [facility] 11-02-2023 14:27-0400 Diastolic blood pressure 80 mm[Hg] Earle Chen MD Work Phone: [facility] 11-02-2023 14:27-0400 Systolic blood pressure 110 mm[Hg] Earle Chen MD Work Phone: [facility] 09-14-2023 11:30-0500 Body height 180.34 cm Lucila Arnett Other [facility] 09-14-2023 11:30-0500 Body mass index (BMI) [Ratio] 20.92 kg/m2 Lucila Arnett Other [facility] [employer] Other 09-14-2023 11:30-0500 Body weight 68.04 kg Lucila Arnett Other [facility] [employer] Other 09-14-2023 11:30-0500 Body weight 68.03 kg [facility] 09-14-2023 11:30-0500 Diastolic blood pressure 68 mm[Hg] Lucila Arnett Other [facility] 09-14-2023 11:30-0500 Respiratory rate 16 /min Lucila Melquiades Other [employer] Other 09-14-2023 11:30-0500 SaO2% (BldA) [Mass fraction] 100 % Lucila Melquiades Other [employer] Other 09-14-2023 11:30-0500 Systolic blood pressure 110 mm[Hg] Lucila Melquiades Other [facility] 08-03-2023 10:00-0500 Body height 180.34 cm Lucila Melquiades Other [employer] Other 08-03-2023 10:00-0500 Body mass index (BMI) [Ratio] 20.78 kg/m2 Lucila Arnett Other [employer] Other 08-03-2023 10:00-0500 Body weight 67.59 kg Lucila Meluqiades Other [employer] Other 08-03-2023 10:00-0500 Diastolic blood pressure 66 mm[Hg] Lucila Melquiades Other [employer] Other 08-03-2023 10:00-0500 SaO2% (BldA) [Mass fraction] 98 % Lucila Arnett Other [employer] Other 08-03-2023 10:00-0500 Systolic blood pressure 100 mm[Hg] Lucila Melquiades Other [employer] Other Encounters Encounter Date Encounter Type Care Provider Facility Start: 06-23-2024 End: 06-23-2024 Bamboo flowsheet Won Marybeth DO Work Phone: [facility] Start: 06-23-2024 End: 06-23-2024 Bamboo flowsheet Won Marybeth DO Work Phone: [facility] Start: 06-23-2024 End: 06-23-2024 Office outpatient visit 15 minutes Won Amrybeth DO Work Phone: [facility] Comment on above: Third trimester preg travon; 35 weeks gestation of Start: 06-23-2024 End: 06-23-2024 ambulatory WON MARYBETH Not Available Start: 06-05-2024 End: 06-05-2024 Bamboo flowsheet Own Marybeth DO Work Phone: [facility] Start: 06-05-2024 End: 06-05-2024 Bamboo flowsheet Won Marybeth DO Work Phone: [facility] Start: 06-05-2024 End: 06-05-2024 Office outpatient visit 15 minutes Won Marybeth DO Work Phone: [facility] Comment on above: 32 weeks [...] 03-31-2024 End: 03-31-2024 ambulatory WON R MARYBETH [facility] Start: 03-27-2024 End: 03-27-2024 ambulatory WON MARYBETH Not Available Start: 03-25-2024 End: 03-25-2024 ambulatory WON R MARYBETH [facility] Start: 03-13-2024 End: 03-13-2024 ambulatory PEDRO TABOR Not Available Start: 02-28-2024 End: 02-28-2024 ambulatory WON MARYBETH Not Available Start: 02-25-2024 End: 02-25-2024 ambulatory WON R MARYBETH [facility] Start: 02-13-2024 End: 02-13-2024 ambulatory WON MARYBETH Not Available Start: 01-30-2024 End: 01-30-2024 ambulatory WON MARYBETH Not Available Start: 01-21-2024 End: 01-21-2024 ambulatory WON R [facility] Start: 01-17-2024 End: 01-17-2024 ambulatory WON MARYBETH Not Available Start: 01-03-2024 End: 01-03-2024 ambulatory WON MARYBETH Not Available Start: 12-26-2023 End: 12-26-2023 ambulatory WON MARYBETH Not Available Start: 12-13-2023 End: 12-13-2023 ambulatory WON MARYBETH Not Available Start: 12-10-2023 End: 12-11-2023 ambulatory HAKEEM BEBA [facility] Start: 12-10-2023 End: 12-10-2023 Encounter identifier Hill Jacobsen Work Phone: [facility] Start: 12-06-2023 End: 12-07-2023 ambulatory HAKEEM YODER [facility] Start: 12-03-2023 End: 12-04-2023 ambulatory HAKEEM YODER [facility] Start: 11-29-2023 End: 11-30-2023 ambulatory HAKEEM YODER [facility] Start: 11-26-2023 End: 11-27-2023 ambulatory HAKEEM YODER [facility] Start: 11-23-2023 End: 11-24-2023 ambulatory HAKEEM YODER [facility] Start: 11-21-2023 End: 11-22-2023 ambulatory HAKEEM YODER [facility] Start: 11-19-2023 End: 11-20-2023 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 ARNETT Facility:[place] Start: 11-19-2023 End: 11-19-2023 Patient encounter procedure LUCILA ARNETT [facility] Start: 11-14-2023 End: 11-14-2023 ambulatory [facility] Work Phone: Start: 11-14-2023 End: 11-14-2023 Patient encounter procedure [facility] Physician [facility] Work Phone: Start: 11-02-2023 ambulatory EARLE CHEN Facility:[facility] Start: 11-02-2023 End: 11-02-2023 Office outpatient new 60 minutes Earle Chen MD Work Phone: [facility] Comment on above: Endometriosis (Prima ry Dx); Pelvic pain; Myalgia of pelvic floor; Dysmenorrhea; Dyspareunia in female; Nausea and vomiting, unspecified vomiting type; Bladder pain; Anxiety Start: 10-17-2023 End: 10-17-2023 Patient encounter procedure [facility] Physician [facility] Work Phone: Start: 09-14-2023 End: 09-14-2023 ambulatory Lucila Arnett Other [employer] Other Start: 09-14-2023 Office outpatient vi sit 25 minutes Lucila Arnett [facility] Start: 09-14-2023 End: 09-14-2023 Patient encounter procedure [facility] Physician [facility]- Start: 08-09-2023 End: 08-09-2023 ambulatory Lucila Arnett Other [employer] Other Start: 08-09-2023 Telephone encounter Lucila krueger [facility] Start: 08-03-2023 End: 08-03-2023 ambulatory Lucila Arnett Other [facility] [employer] Other Start: 08-03-2023 Office outpatient ne w 30 minutes Lucila Arnett [facility] Start: 08-03-2023 Telephone encounter Lucila Dan her [employer] Time [employer] Operator Start: 07-12-2020 End: 07-13-[address] WON RUEDA Facility:[facility] Start: 06-25-2020 End: 06-25-[address] WON RUEDA Facility:[facility] Start: 04-30-2020 End: 05-01-[address] WON RUEDA Facility:[facility] Start: 04-29-2020 End: 04-29-[address] WON RUEDA Facility:[facility] Procedures Date Procedure Procedure Detail Performing Clinician Start: 06-23-2024 Urnls dip stick/tabl et rgnt non-auto w/o micrscp Won Marybeth DO Work Phone: Start: 06-05-2024 Urnls dip stick/tabl et rgnt non-auto w/o micrscp Won Marybeth DO Work Phone: Start: 08-20-2004 Tooth extraction MADI ARNETT uterine ablation LUCILA BAH Plan of Treatment Date Care Activity Detail Author Start: 06-30-2024 End: 06-30-2024 Patient encounter procedure 06/30/2024 10:30 AM EST Routine [facility] [address] [place] [address] Won Rueda, DO [address] [place], [place] [id number] [facility] Start: 06-30-2024 End: 06-30-2024 Professional / ancillary services management 06/30/2024 10:00 AM EST Ancillary Procedure [facility] [address] [place] [address] [facility] Start: 06-23-2024 End: 06-23-2025 Strep B DNA probe, amplification Strep B DNA probe, amplification Lab Routine Third trimester Expected: 06/23/2024 (Approximate), Expires: 06/23/2025 [facility] Work Phone: Comment on above: Expected: 06/23/2024 (Approximate), Expires: 06/23/2025 Start: 06-23-2024 End: 06-23-2024 Patient encounter procedure [facility] Comment on above: Arrived Start: 06-05-2024 End: 06-05-2024 Patient encounter procedure 06/05/2024 10:40 AM EDT Routine [facility] [address] [place] [address] Won Rueda DO [address] [place] [address] Arrived [facility] Comment on above: Arrived Start: 11-02-2023 End: 11-01-2024 MR Pelvis WO and W contrast IV MRI PELVIS WITH AND WITHOUT CONTRAST Imaging Routine Endometriosis Pelvic pain Expected: 11/02/2023, Expires: 11/01/2024 [facility] Comment on above: Expected: 11/02/2023 , Expires: 11/01/2024 Start: 10-17-2023 Patient referral [facility] Work Phone: Start: 04-20-2023 COVID-19 VACCINE ( season) COVID-19 VACCINE ( season) [facility] Start: 04-20-2023 Influenza vaccination INFLUENZA VACC INE (#1) [facility] Start: 2017 Screening for malign ant neoplasm of cervix CERVICAL CANCER SCREENING DISCUSSION [facility] Start: 11-08-2015 Hepatitis B vaccination HEP B VACCINE (1 of - + 3-dose series) [facility] Start: 11-08-2015 Third diphtheria, tetanus and acellular pertussis (DTaP) vaccination TDAP (ADULT) [facility] Start: 2012 Screening for Chlamy david trachomatis CHLAMYDIA SCREEN [facility] Start: 11-08-2011 HIV screening HIV SCREENING DISCUSSION [facility] Start: 11-08-2011 Vaccination for kale n papillomavirus HPV VACCINE ADOL (1 - 3-dose series) [facility] Start: 1996 Hepatitis C screening HEPATITI S C VIRUS SCREENING [facility] Start: 1996 Screening for Chlamy david trachomatis GONORRHEA SCREEN [facility] Start: 1996 Tetanus vaccination TETANUS [facility] Patient referral [facility] Work Phone: Payers Date Payer Category Payer Medicaid [id number] 2024 Medicaid [id number] 2023 [employer] ( and others) [id number] 2023 [employer] ( and others) [facility] [id number] 2023-Present [address] [place] [address] [id number] 2023 [employer] ( and others) [id number] 1996 Unknown [id number] 2.16.840.1.934429.3.579.2.5 1996 Unknown [id number] 2.16.840.1.541243.3.579.2.5 1996 Unknown [id number] 2.16.840.1.396538.3.579.2.5 1996 Unknown [id number] 2.16.840.1.307630.3.579.2.5 1996 Unknown [id number] 2.16.840.1.806236.3.579.2.5 1996 Unknown [id number] 2.16.840.1.650533.3.579.2.5 94 1996 Unknown [id number] 2.16.840.1.934344.3.579.2.7 27 1996 Unknown [id number] 2.16.840.1.949737.3.579.2.1 143 1996 Unknown [id number] 2.16.840.1.262574.3.579.2.1 143 1996 Unknown [id number] 2.16.840.1.391141.3.579.2.1 143 1996 Unknown [id number] 2.16.840.1.497795.3.579.2.1 143 1996 Unknown [id number] 2.16.840.1.445481.3.579.2.1 143 1996 Unknown [id number] 2.16840.1.968318.3.579.2.1 143 1996 Unknown [id number] 2.16.840.1.975817.3.579.2.1 143 1996 Unknown [id number] 2.16.840.1.834879.3.579.2.1 286 1996 Unknown [id number] 2.16.840.1.543371.3.579.2.1 286 1996 Unknown [id number] 2.16.840.1.470598.3.579.2.1 286 1996 Unknown [id number] 2.16.840.1.397200.3.579.2.1 286 1996 Unknown [id number] 2.16.840.1.453709.3.579.2.1 286 1996 Unknown [id number] 2.16.840.1.197420.3.579.2.1 286 1996 Unknown [id number] 2.16.840.1.225079.3.579.2.1 259 1996 Unknown [id number] 2.16.840.1.852474.3.579.2.1 259 1996 Unknown [id number] 2.16.840.1.563201.3.579.2.1 259 1996 Unknown [id number] 2.16.840.1.798411.3.579.2.1 259 1996 Unknown [id number] 2.16.840.1.561126.3.579.2.1 259 1996 Unknown [id number] 2.16.840.1.124950.3.579.2.1 259 1996 Unknown [id number] 2.16.840.1.451394.3.579.2.1 259 1996 Unknown [id number] 2.16.840.1.954723.3.579.2.1 259 1996 Unknown [id number] 2.16.840.1.989354.3.579.2.1 259 1996 Unknown [id number] 2.16.840.1.034311.3.579.2.1 259 1996 Unknown [id number] 2.16.840.1.458239.3.579.2.1 259 1996 Unknown [id number] 2.16.840.1.329682.3.579.2.1 259 1996 Unknown [id number] 2.16.840.1.753922.3.579.2.1 259 1996 Unknown [id number] 2.16.840.1.145934.3.579.2.1 259 1996 Unknown [id number] 2.16.840.1.546197.3.579.2.1 259 1959 [employer] ( [employer] others) [id number] 1959 [employer] ( and others) [id number] [employer] ( and others) [id number] 2.16.840.1.188649.19 Social History Date Type Detail Facility Start: 11-02-2023 Sex Assigned At Joselito Lynch [facility] Start: 09-30-2017 End: 11-02-2023 Tobacco smoking status NHIS Never smoked tobacco [facility] Start: 11-02-2023 Tobacco use and exposure Smokeless tobacco non-user [facility] Start: 11-02-2023 Alcoholic beverage intake Lifetime non-drinker (finding) [facility] Start: 11-02-2023 History of Social function [facility] Start: 1996 Sex assigned at Not on file [facility] Start: 1996 Sex Assigned At Female [facility] Start: 12-10-2023 Tobacco smoking status NHIS Unknown if ever smoked [facility] Start: 12-10-2023 Alcohol intake Alcohol Use Details [facility] Start: 09-04-2023 Sexual Orientation Lesbian, lynch or homosexual [facility] Start: 11-03-2023 [facility] Clinical Notes 06-25-2020 to 06-23-2024 Zakiya Traylor LPN - 06/23/2024 10:10 AM Lary Traylor LPN - 06/05/2024 10:40 AM Francisco Chen MD - 11/02/2023 2:30 PM EDT Note Date & Type Note Facility 06-23-2024 History of Present illness Narrative Reason for Appointment: Patient ID: Goldie Medrano is a 28 y.o. female who presents for Routine Visit Patient presents today for Return OB appointment. [...] ondansetron 4 mg disintegrating tablet - Active Rnlvzjxk-Zyz-Kw-FA ( 1 + IRON PO) Daily RT zolpidem (AMBIEN) 10 mg, Oral, Nightly PRN ALLERGIES Allergies Allergen Reactions Galcanezumab Other Reaction(s): Hives Tramadol Unknown and Hives Other Reaction(s): Not available Other Reaction(s): Unknown, Unknown Reaction Emgality [Galcanezumab-Gnlm] Lavender Oil Unknown PROBLEMS Active Ambulatory Problems Diagnosis Date Noted [...] Depression (CMS/HCC) Endometriosis OCD (obsessive compulsive disorder) (CMS/FORMERLY [facility]) PTSD (post-traumatic stress disorder) (CMS/[facility]ER[facility]) HISTORY PAST MEDICAL HISTORY SOCIAL HISTORY Past Medical History: Diagnosis Date Anxiety Depression (CMS/HCC) Endometriosis OCD (obsessive compulsive disorder) (CMS/HCC) PTSD (post-traumatic stress disorder) (CMS/[facility]) Social History Tobacco Use Smoking status: Not on file Smokeless tobacco: Not on file Substance Use Topics Alcohol use: Not on file Drug use: Not on file FAMILY HISTORY No family history on file. SURGICAL HISTORY Past Surgical History: Procedure Laterality Date WISDOM TOOTH EXTRACTION REVIEW OF SYSTEMS Review of Systems: Review of Systems All other systems reviewed and are negative. OBJECTIVE Objective: Physical Exam Constitutional: Appearance: Normal appearance. She is well-developed. Genitourinary: Vulva normal. Cardiovascular: Rate and Rhythm: Normal rate and [...] nursing note reviewed. Exam conducted with a sleep scientist present. Vitals: There is no height or weight on file to calculate BMI. BP: 112/70 Patient's last menstrual period was 10/20/2023. ASSESSMENT & PLAN ICD-10-CM 1. Third trimester Z34.93 POCT urinalysis dipstick manually resulted Strep B DNA probe, amplification 2. 35 weeks gestation of Z3A.35 Patient is doing well but has complaints of being tired and having maternal discomfort due to . Patient verbalized frequent movement and was instructed to perform kick counts three times per day. labor precautions were given, LARC consent was signed/declined, and GBS was obtained. Discussed with patient having IOL on 07/06/24 @ 0000. Called [facility] and patient is on the books for 07/06/24 @ midnight and will sign consents at next appointment. Patient to return to clinic in 1 week. Orders Placed This Encounter Procedures Strep B DNA probe, amplification POCT urinalysis dipstick manually resulted Follow Up: Patient is to return to office in 1 week for routine OB appointment Documented by Zakiya Traylor LPN on behalf of: Won Rueda DO documented in this encounter [facility] 06-05-2024 History of Present illness Narrative Reason [...] ondansetron 4 mg disintegrating tablet - Active Zssrwdlh-Gue-Iq-FA ( 1 + IRON PO) Daily RT [...] Past Medical History: Diagnosis Date Anxiety Depression ([facility]) Endometriosis OCD (obsessive compulsive disorder) (CMS/[facility]ER[facility]) PTSD (post-traumatic stress disorder) ([facility]) HISTORY PAST MEDICAL HISTORY SOCIAL HISTORY Past Medical History: Diagnosis Date Anxiety Depression ([facility]) Endometriosis OCD (obsessive compulsive disorder) ([facility]) PTSD (post-traumatic stress disorder) ([facility]) Social History Tobacco Use Smoking status: Not [...] nursing note reviewed. Exam conducted with a sleep scientist present. Vitals: There is no height or [...] Won Rueda DO documented in this encounter [facility] 11-19-2023 Evaluation + Plan note Diagnostic Tests PendingT3 Free 11/19/23Thyroid Perox.tpo Ab 11/19/23TgAb+Thyroglobulin,CHING or ARLEN 11/19/23 [facility] 11-02-2023 History of Present illness Narrative GYNECOLOGY CONSULT NOTE REASON FOR VISIT Endometriosis Pelvic pain HISTORY OF PRESENT ILLNESS Ms. Medrano is a 27 y.o. (NSVDx2) who presents for consultation regarding endometriosis, pelvic pain. Records review: Moved back from [place] to [place] (2021) First diagnosed in 2017 Has had [...] She had a women's health doctor in [facility] who told her she had stage IV endometriosis. She is no longer on the progesterone. Has tried vaginal valium does not help Her 2 previous pregnancies were with a previous partner. She and her are trying for another now. No BA in [place] Partner has not had a SA yet [...] patient today. documented in this encounter [facility] 09-14-2023 Evaluation note Encounter Date Diagnosis [...] Pt to call with any worsening symptoms. [employer] Other 12-21-2023 Evaluation note* Encounter Date Diagnosis Assessment Notes Treatment Notes Treatment Clinical Notes Jul, Generalized anxiety disorder (ICD-10 - F41.1) Jul, Endometriosis (ICD-1 0 - N80.9) [employer] Other 12-15-2023 Evaluation note* Encounter Date Diagnosis [...] intractable, unspecified migraine type (ICD-10 - G43.909) [employer] Other 11-06-2020 NoteOPERATIVE NOTE OPERATION DATE: 06-25-20 ANESTHETIC:General. CD MIXER:None. PREOPERATIVE DIAGNOSIS: 1. Dyspareunia. 2. Right and [...] lap, and needle counts were correct x2. [facility] Signed and Approved by: DR WON RUEDA . 07/30/2020 13:02:00[facility] note* Clinical Note Date No Information [facility] Work Phone: Discharge summary* Clinical Note Date No Information [facility] Work Phone: Evaluation noteNo [employer] Other Evaluation note* Diagnosis Endometriosis- Primary Endometriosis, site unspecified Pelvic pain Unspecified symptom associated with female genital organs Myalgia of pelvic floor Dysmenorrhea Dyspareunia in female Nausea and vomiting, unspecified vomiting type Bladder pain Other symptoms involving urinary system Anxiety Anxiety state, unspecified [facility] Diagnosis Onset Date Resolution Status Depression acute Generalized anxiety disorder acute Obsessive compulsive disorder acute PTSD (post-traumatic stress disorder) acute Depression acute Endometriosis acute Generalized anxiety disorder acute Obsessive compulsive disorder acute PTSD (post-traumatic stress disorder) acute TBI (traumatic brain injury) acute [facility] Work Phone: Evaluation note* Type Assessment Date No Information [facility] Work Phone: Evaluation note* Diagnosis 32 weeks gestation of Third trimester state, incidental H/O delivery, currently , first trimester Pelvic pain in female Unspecified symptom associated with female genital organs Cluster headache, not intractable, unspecified chronicity pattern Bilateral leg pain Pain in soft tissues of limb [facility] Diagnosis Third trimester state, incidental 35 weeks gestation of documented in [facility]* Clinical Note Date No Information [facility] Work Phone: History general Narrative - Reported* Type Description Date Medical History Anxiety Medical History Stage 4 Endometriosis Medical History Depression with manic episodes Medical History OCD Medical History PTSD Medical History TBI Surgical History Endometriosis surgery x2 Surgical History [place] teeth Surgical History Injections in cervix [employer] Other History of Present illness Narrative* Encounter Date Complaint History Of Prese nt Illness No Information [facility] Phone: Hospital course Narrative No data available for this section [facility] No data available for this section [facility] Date Instruction Additional Infor mation No Information [facility] [employer] Phone: Progress note No data available for this section [facility] Clinical Note Date No Information [facility] Work Phone: Reason for referral (narrative)* Consultation (Routine) - New Request Specialty Diagnoses / Procedures Referred By Harris gautam Referred To Contact Psychology Diagnoses Pelvic pain Anxiety Earle Chen MD [address] [place] [address] Oksana Luu, PhD [address] [place] [address] Referral ID Status Reason Start Date Expiration Date V isits Requested Visits Authorized [id number] New Request 11/02/2023 11/26/2024 1 1 * Consultation (Routine) - New Request Specialty Diagnoses / Procedures Referred By Harris gautam Referred To Contact Integrative Medicine Diagnoses Pelvic pain Nausea and vomiting, unspecified vomiting type Earle Chen MD [address] [place] [address] Referral ID Status Reason Start Date Expiration Date V isits Requested Visits Authorized [id number] New Request 11/02/2023 11/26/2024 1 1 * Consultation (Routine) - New Request Specialty Diagnoses / Procedures Referred By Harris gautam Referred To Contact Gynecology Diagnoses Pelvic pain Myalgia of pelvic floor Bladder pain Earle Chen MD [address] [place] [address] Referral ID Status Reason Start Date Expiration Date V isits Requested Visits Authorized [id number] New Request 11/02/2023 11/26/2024 1 1 * MRI/CAT Scan (Routine) - New Request Specialty Diagnoses / Procedures Referred By Harris gautam Referred To Contact Diagnoses Endometriosis Pelvic pain Procedures MRI PELVIS WITH AND WITHOUT CONTRAST SC MRI, PELVIS, COMBO Earle Chen MD [address] [place] [address] Referral ID Status Reason Start Date Expiration Date V isits Requested Visits Authorized [id number] New Request 11/02/2023 11/26/2024 1 1 [facility] Reason For Referral No Information [facility] Work Phone: Summary Purpose Family History Relationship [...] 1 Endometriosis (N80.9 ) Referral Organization [facility] [facility] Referring Provider First Name Lucila Referring Provider Last Name Steveachealaina Referring Provider Specialty Nurse Pract itioner Referred Organization [facility] Referred Provider Jena Suresh Referred Address ,[place], [place],[address] Referred Provider Specialty OB - Gynecol ogy [...] intractable, unspecified migraine type (G43.909) Referral Organization [facility] Referring Provider First Name Banner Referring Provider Last Name [facility] Referring Provider Specialty Nurse Pract itoverbrookr Referred Organization [facility] Referred Provider Herbie Arroyo Referred Address [address] [place], [place],[address] Referred Provider Specialty Neurology Referral Priority Routine [...] Diagnosis 1 Endometriosis (N80.9 ) Referral Organization [facility] Referring Provider First Name Lucila Referring Provider Last Name [facility] Referring Provider Specialty Nurse Pract itioner Referred Organization [facility] Referred Address [address] [place], [place],[address] Referred Provider Specialty Endocrinolog y Referral Priority [...] content) DATE CREATED AUTHOR 12/15/2020 [facility] DATE CREATED AUTHOR AUTHOR'S ORGANIZ ATION 11/03/2023 [facility] DATE CREATED AUTHOR AUTHOR'S ORGANIZ ATION 11/20/2023 [facility] DATE CREATED AUTHOR AUTHOR'S ORGANIZ ATION 12/15/2023 [facility] DATE CREATED AUTHOR AUTHOR'S ORGANIZ ATION 04/01/[address] [facility] DATE CREATED AUTHOR AUTHOR'S ORGANIZ ATION 06/24/2024 [facility] EPIC REASON FOR VISIT (unrecogniz ed section and content) Reason Comments Consult Pt diagnosis with En dometriosis in 2018. Patient desire . Specialty Diagnoses / Procedures Referred By Contac t Referred To Contact LOCATE TECHNICIAN Diagnoses Endometriosis Lucila Arnett CNP [address] [place] [address] [facility] [address] [place] [address] Referral ID Status Reason Start Date Expiration Date V isits Requested Visits Authorized [id number] New Request 10/23/2023 11/16/2024 1 1 Reason Comments Routine Visit Care Teams (unrecognized sec tion and content) Team Status: Active Member Role Status Dates Lucila Arnett APRN VETERINARY LABORATORY TECHNICIAN-C Primary Care Provider Active Team Status: Inactive Member Role Status Dates Lucila Arnett APRN VETERINARY LABORATORY TECHNICIAN-Jazmine Attending Provider Act vinicius Start: September 14, 2023 End: September 14, 2023 Team Status: Inactive Member Role Status Dates Lucila Arnett APRN VETERINARY LABORATORY TECHNICIAN-Jazmine Primary Care Provider, Attending Provider Active Start: October 17, 2023 End: October 17, 2023 Team Status: Inactive Member Role Status Dates Lucila Arnett APRN VETERINARY LABORATORY TECHNICIAN-C Primary Care Provider, Attending Provider Active Start: November 14, 2023 End: November 14, 2023 Name Effective Dates (start - stop) Status Members No Information Wall Washer Relationship Specialty Start Date End Date Lucila Arnett NP [address] [place] [address] PCP - General Family Medicine 11/11/23 Wall Washer Relationship Specialty Start Date End Date Lucila Arnett NP [address] [place] [address] PCP - General Family Medicine 11/11/23 Wall Washer Relationship Specialty Start Date End Date Lucila Arnett NP [address] [place] [address] PCP - General Family Medicine 11/11/23 Wall Washer Relationship Specialty Start Date End Date Lucila Arnett NP [address] [place] [address] PCP - General Family Medicine 11/11/23 Goals [...] BE BASED ON THE PRIMARY CLINICAL RECORDS. [facility] [employer] [facility]. provides no warranty or guarantee of the accuracy or completeness of information in this document.
--- NOTE | 2024-06-27 10:57 | US_ITS ---
[address] [address] Patient Name: COLTON VERMA MRN: [id number] date: 1995 Sex: F Assigned Patient Location: [facility] Current Patient Location: [facility] Accession/Order Number: [id number] Exam Date: 06/27/2024 11:00 Report Date: 06/27/2024 11:49 At the request of: WON LESTER Procedure: US OB BPP w non-stress EXAMINATION: US OB BPP w non-stress HISTORY:H/O DELIVERY O09.091 COMPARISON: Ultrasound OB biophysical 06/20/2024 TECHNIQUE: Ultrasound biophysical profile was performed in the radiology department. BREATHING MOVEMENTS: 2 GROSS BODY MOVEMENTS: 2 TONE: 2 QUALITATIVE AMNIOTIC FLUID VOLUME: 2 PRESENTATION: CEPHALIC HEART RATE: 150 bpm AMNIOTIC FLUID VOLUME: 14.93 cm GESTATIONAL AGE: 35 weeks 6 days US/US OB BPP w non-stress IMPRESSION: Total biophysical profile score: 8 Electronically authenticated by: ISIAH ROJAS Date: 06/27/2024 11:49
== END 2024-06-27 12:15 | disposition home or self-care (01) ==
LOC: US 07:09 → FBC 10:54
PROVIDERS: PCP Nurse Practitioner Family; Visit Provider Obstetrics & Gynecology
DX: O09.213 Supervision of pregnancy with history of pre-term labor, third trimester (principal); Z3A.35 35 weeks gestation of pregnancy
CPT/HCPCS: 76818

== ENCOUNTER 2024-06-30 07:06 | Outpatient (OUT) | payer OTHER, SELFPAY ==
--- OUTSIDE RECORDS SUMMARY | 2024-06-30 07:11 | XMS_ITS | CCD ---
Author Organization [facility] Care Team Providers Care Male Impersonator Name Role Phone MARYBETH, DR UPTON Admitting [...] DR UPTON Attending Unavailable Lucila Arnett Unavailable [phone] Unavailable Primary Care Provider Unavailabl e GIUSEPPEAL, EARLE Attending Unavailable LUCILA ARNETT Referring Unavailable LUCILA ARNETT Primary Care Physician [phone] KHADRA ARNETT Attending Unava ilable KHADRA ARNETT [...] (1 source) traMADol Drug Allergy 0 [facility] Repository (12 sources) traMADol; Translations: [TRAMADOL] Drug Allergy 4 Unknown, Hives [facility] (12 sources) Lavender Oil; Translations: [LAVENDER OIL] Drug allergy 4 Unknown [facility] Repository (1 source) lavender (Lavandula angustifolia) Allergy to substance 4 Unknown Reaction [facility] (7 sources) GALCANEZUMAB-GNL M; Translations: [GALCANEZUMAB-GN LM] Propensity to adverse reactions to drug (disorder) 4 [facility] Repository (6 sources) Galcanezumab Propensity to adverse reactions 4 [facility] Healthcare Work Phone: Medications Current Medications [...] oral solution (1 source) alpha-Adrenergic Agonist, Uncompetitive O-vljuhd-C-aspartate Receptor Antagonist, Sigma-1 Agonist Start : 09-30 [...] Daily 30 capsule 6 05/05/2024 05/05/2025 Active Ozmftebv-Dzz-Cj-FA ( 1 + IRON PO) (6 sources) Zwmjkkme-Qjm-Nh-FA ( 1 + IRON PO) Take by [...] # 10 tab(s), Refills(s) 0, Pharmacy: [facility] 1985 Start Date: 09/21/18 Status: Ordered zolpidem [...] UA Negative Negative - 4(70) +++ mg/dL [facility] Blood, UA Positive Negative - 50 Jt/mcL [facility] Comment on above: trace Clarity, UA Clear [facility] Color, UA Yellow [facility] Glucose, UA Negative Negative - 2000(110) ++++ mg/dL [facility] Interpretation and review of laboratory results Abnormal [facility] Ketones, UA Negative Negative - 160(16) ++++ mg/dL [facility] Leukocytes, UA Negative Negative - 500+++ [place]/mcL [facility] Nitrite, UA Negative Negative - Positive [facility] pH, UA 7 5 - 9 [facility] Protein, UA Negative Negative - 2000(20) ++++ mg/dL [facility] Spec Grav, UA 1.02 1 - 1.03 [facility] Urobilinogen, UA 2.0 0.2 - 12 mg/dL [facility] Urinalysis macro (dipstick) panel (U)on 06-05-2024 Bilirubin, UA Negative Negative - 4(70) +++ mg/dL [facility] Blood, UA Positive Negative - 50 Jt/mcL [facility] Comment on above: trace-intact Clarity, UA Clear [facility] Color, UA Yellow [facility] Glucose, UA Negative Negative - 1999(110) ++++ mg/dL [facility] Interpretation and review of laboratory results Abnormal [facility] Ketones, UA Negative Negative - 160(16) ++++ mg/dL [facility] Leukocytes, UA Negative Negative - 500+++ [place]/mcL [facility] Nitrite, UA Negative Negative - Positive [facility] pH, UA 7 5 - 9 [facility] Protein, UA Negative Negative - 1999(20) ++++ mg/dL [facility] Spec Grav, UA 1.02 1 - 1.03 [facility] Urobilinogen, UA 1.0 0.2 - 12 mg/dL [facility] HCG.beta subunit Qnon 2023 hCG Quant [id number] mIU/mL Normal [facility] Comment on [...] method. Performed By: #### 2 1198-7 #### [facility] [address] [place] [address] HCG.beta subunit Qnon 2023 hCG Quant [id number] mIU/mL Normal [facility] Comment on above: Order Comment: Pregn phill [...] method. Performed By: #### 2 1198-7 #### [facility] [address] [place] [address] HCG.beta subunit Qnon 2023 hCG Quant [id number] mIU/mL Normal [facility] Comment on above: Order Comment: Pregn phill [...] method. Performed By: #### 2 1198-7 #### [facility] [address] [place] [address] HCG.beta subunit Qnon 2023 hCG Quant [id number] mIU/mL Normal [facility] Comment on above: Order Comment: Pregn phill [...] method. Performed By: #### 2 1198-7 #### [facility] [address] [place] [address] HCG.beta subunit Qnon 2023 hCG Quant 2709 mIU/mL Normal [facility] Comment on above: Order Comment: Pregn phill [...] method. Performed By: #### 2 1198-7 #### [facility] [address] [place] [address] HCG.beta subunit Qnon 2023 hCG Quant 776 mIU/mL Normal [facility] Comment on above: Order Comment: Pregn phill [...] method. Performed By: #### 2 1198-7 #### [facility] [address] [place] [address] HCG.beta subunit Qnon 2023 hCG Quant 250 mIU/mL Normal [facility] Comment on above: Order Comment: Pregn phill [...] method. Performed By: #### 2 1198-7 #### [facility] [address] [place] [address] .Thyroglobulin by IMAon Thyroglobulin [Mass/Vol] 5.0 ng/mL Invalid Interpretation Code 1.5-38.5 [facility] Comment on above: Result Comment: Acco rding [...] is 0.1 ng/mL Thyroglobulin measured by John [employer]Map Immunometric Assay Performed at: [facility] [id number] PhD Johanny Nieto Performed By: #### 2 047408, [id number], [id number], 6908627, [id number], [id number], [id number] #### [facility] Laboratory [address] [place] [address] T3 Freeon 11-20-2023 Free T3 [Mass/Vol] 3.2 pg/mL Invalid Interpretation Code 2.0-4.4 [facility] Comment on above: Result Comment: Perf ormed at: [address] [id number] PhD Johanny Nieto Performed By: #### 2 144455, [id number], [id number], 3751303, [id number], [id number], [id number] #### [facility] Laboratory [address] [place] [address] TgAb+Thyroglobulinon 024 Thyroglobulin Ab Qn [IU]/mL Invalid Interpretation Code 0.0-0.9 [facility] Comment on above: Result Comment: Thyr oglobulin Antibody measured by John Littcarr Methodology It should be noted that the presence of thyroglobulin antibodies may not be pathogenic nor diagnostic, especially at very low levels. The assay club waiter/waitress has found that four percent of individuals without evidence of thyroid disease or autoimmunity will have positive TgAb levels up to 4 IU/mL. Performed at: [facility] [address] [place], [place] [id number] PhD Johanny Nieto Performed By: #### 2 805179, 19878924, 62413946, 8704280, [id number], [id number], [id number] #### [facility] Laboratory [address] [place] [address] Thyroid Perox.tpo Abon 11-19 TPO Ab Qn [IU]/mL Invalid Interpretation Code 0-34 [facility] Comment on above: Result Comment: Perf ormed at: [facility] [address] [place], [place] [id number] PhD Johanny Nieto Performed By: #### 2 783071, 12086095, 91341361, 7005129, [id number], [id number], [id number] #### [facility] Laboratory [address] [place] [address] BhCG Quanton 11-19-2023 HCG.beta subunit Qn 86 m[IU]/mL High 1-[address] [facility] Comment on above: Result Comment: 'F N ON < 1 - 3' ' 0.2 - 1 WEEK = 5 TO 50' ' 1 - 2 WEEKS = 50 - 500' ' 2 - 3 WEEKS = 100 - 5000' ' 3 - 4 WEEKS = 500 - 42877' ' 4 - 5 WEEKS = 1000 - 78666' ' 5 - 6 WEEKS = 07090 - 678080' ' 6 - 8 WEEKS = 49271 - 529655' ' 8 - 12 WEEKS = 77690 - 566093' Performed By: #### 2 [id number] #### [facility] [address] [place] [address] CHEMISTRYOrdered By: SYSTEM SYSTEM on 11-19-2023 HCG.beta [...] 3 - 4 WEEKS = 500 - 25707' ' 4 - 5 WEEKS = 1000 - 35792' ' 5 - 6 WEEKS = 85919 - 419043' ' 6 - 8 WEEKS = 88648 - 243390' ' 8 - 12 WEEKS = 57869 - 526313' Iron [Mass/Vol] 161 ug/dL High 35 - 153 mcg/dL Remisol Chem Iron binding capacity [Mass/Vol] 316 ug/dL Normal 250 - 400 mcg/dL Remisol Chem Transferrin [Mass/Vol] 226 mg/dL Normal 200 - 370 mg/dL [facility] Chem TSH Qn 1.53 m[IU]/L Normal 0.34 - 5.60 mcIU/mL Remisol Chem Consent for Treatmenton Consent for Treatment [id number] #1.00TIFF Normal [facility] Ironon 11-19-2023 Iron [Mass/Vol] 161 microgram/dL High 35-153 Fis [facility] Comment on above: Performed By: #### 2 731478, 85031072, 50808400, 8648105, 161279093, [id number], [id number] #### [facility] [address] [place] [address] Physician Orderon 11-19-2023 Physician Order [id number] #1.00TIFF Normal [facility] TIBC Calculatedon 11-19-2023 Iron binding capacity [Mass/Vol] 316 microgram/dL Normal 250-400 [facility] Comment on above: Performed By: #### 2 549618, 00667263, 99384825, 3831602, 238396190, [id number], 32107079 #### [facility] [address] [place] [address] Transferrin [Mass/Vol] 226 mg/dL Normal 200-370 [facility] Comment on above: Performed By: #### 2 832989, 58025197, 49871254, 5811499, 419508722, [id number], [id number] #### [facility] [address] [place] [address] TSH With T4fr Reflexon 11-18 TSH Qn 1.53 m[IU]/L Normal 0.34-5.60 [facility] Comment on above: Performed By: #### 2 636600, 35566552, 47217263, 1712203, [id number], 085577823, [id number] #### [facility] [address] [address] TSHon 07-12-2020 TSH 0.756 uIU/mL Normal 0.470-4.680 [facility] Comment on above: Performed By: #### T SH #### [facility] [address] [place] [address] Jayne Noris TSH RANGE SEE BELOW Normal [facility] Comment on above: Result Comment: <0.3 4 UIU/ml HYPERTHYROID 0.34-5.60 UIU/ml EUTHYROID >5.60 UIU/ml HYPOTHYROID Performed By: #### T SH #### [facility] [address] [place], [place] [address] Jayne Noris CBC AUTO DIFFon 06-25-2020 BASO # 0.1 103/ul Normal 0.0-0.1 [facility] Comment on above: Performed By: #### C BC #### [facility] [address] [place], [place] [address] Jayne Noris Basophils/100 WBC (Bld) 1.2 % Normal 0.2-2.0 [facility] Comment on above: Performed By: #### C BC #### [facility] [address] [place], [place] [address] Jayne Noris EO # 0.2 103/ul Normal 0.0-0.7 [facility] Comment on above: Performed By: #### C BC #### [facility] [address] [place], [place] [address] Jayne Noris Eosinophils/100 WBC (Bld) 2.6 % Normal 0.9-7.0 [facility] Comment on above: Performed By: #### C BC #### [facility] [address] [place] [address] Jayne Noris Erythrocyte distribution width (RBC) [Ratio] 12.0 % Normal 11.0-15.0 [facility] Comment on above: Performed By: #### C BC #### [facility] [address] [place] [address] Jayne Noris Hematocrit (Bld) [Volume fraction] 40.7 % Normal 36.0-48.0 [facility] Comment on above: Performed By: #### C BC #### [facility] [address] [place] [address] Jayne Noris Hemoglobin (Bld) [Mass/Vol] 13.6 g/dL Normal 12.0-16.0 [facility] Comment on above: Performed By: #### C BC #### [facility] [address] [place] [address] Jayne Noris IG # 0.01 10e3/ul Normal 0.00-0.03 [facility] Comment on above: Performed By: #### C BC #### [facility] [address] [place] [address] Jayne Noris IG % 0.2 % Normal 0.0-0.5 [facility] Comment on above: Performed By: #### C BC #### [facility] [address] [place] [address] Jayne Noris LYMPH # 1.9 103/ul Normal 1.2-3.8 [facility] Comment on above: Performed By: #### C BC #### [facility] [address] [place], [place] [address] Jayne Noris Lymphocytes/100 WBC (Bld) 32.5 % Normal 20.5-60.0 [facility] Comment on above: Performed By: #### C BC #### [facility] [address] [place] [address] Jayne Noris MANUAL DIFF REQ NO Normal [facility] Comment on above: Performed By: #### C BC #### [facility] [address] [place] [address] Jayne Hamm MCH (RBC) [Entitic mass] 31.3 pg Normal 26.7-34.0 [facility] Comment on above: Performed By: #### C BC #### [facility] [address] [place] [address] Jayne Hamm MCHC (RBC) [Mass/Vol] 33.4 g/dL Normal 29.9-35.2 [facility] Comment on above: Performed By: #### C BC #### [facility] [address] [place] [address] Jayne Hamm MCV (RBC) [Entitic vol] 93.6 fL Normal 81.0-99.0 [facility] Comment on above: Performed By: #### C BC #### [facility] [address] [place] [address] Jayne Hamm MONO # 0.6 103/ul Normal 0.3-0.8 [facility] Comment on above: Performed By: #### C BC #### [facility] [address] [place] [address] Jayne Hamm Monocytes/100 WBC (Bld) 10.4 % Normal 1.7-12.0 [facility] Comment on above: Performed By: #### C BC #### [facility] [address] [place] [address] Jayne Hamm NEUT # 3.1 103/ul Normal 1.4-6.5 [facility] Comment on above: Performed By: #### C BC #### [facility] [address] [place] [address] Jayne Hamm Neutrophils/100 WBC (Bld) 53.1 % Normal 43.0-75.0 [facility] Comment on above: Performed By: #### C BC #### [facility] [address] [place], [place] [address] Jaynejeremías Hamm Platelet mean volume (Bld) [Entitic vol] 8.9 fL Critically low 9.5-13.5 [facility] Comment on above: Performed By: #### C BC #### [facility] [address] [place] [address] Jayne Hamm PLT 265 103/ul Normal 150-450 [facility] Comment on above: Performed By: #### C BC #### [facility] [address] [place] [address] Jayne Hamm RBC 4.35 106/ul Normal 4.20-5.40 [facility] Comment on above: Performed By: #### C BC #### [facility] [address] [address] Jayne Hamm WBC 5.8 103/ul Normal 4.0-11.0 [facility] Comment on above: Performed By: #### C BC #### [facility] [address] [place] [address] Jayne Hamm PREG QUANT HCGon 06-25-2020 HCG QUANT 1.00 mIU/mL Normal [facility] Comment on above: Performed By: #### P REGQNT #### [facility] [address] [place] [address] Janye Hamm HCG RANGE SEE BELOW Normal [facility] Comment on above: Result Comment: 5-50 0-1 WEEK 40-300 1-2 WEEKS 100-1,000 2-3 WEEKS 500-6,000 3-4 WEEKS 5,000-200,000 1-2 MONTHS 10,000-100,000 2-3 MONTHS 3,000-50,000 2ND TRIMESTER 1,000-50,000 3RD TRIMESTER Performed By: #### P REGQNT #### [facility] [address] [place] [address] Jayne Hamm PAP ACOG PANEL 2: 21 to 29on 05-06-2020 . . Normal [facility] Comment on above: Performed By: #### 4 [id number] #### [facility] [address] [place], [place] [address] Jayne Hamm Age Gdln ACOG Testing 22- Normal [facility] Comment on above: Performed By: #### 4 [id number] #### [facility] [address] [place], [place] [address] Jayne Hamm DIAGNOSIS: Comment Normal [facility] Comment on above: Result Comment: NEGA TIVE FOR INTRAEPITHELIAL LESION OR MALIGNANCY. Performed By: #### 4 [id number] #### [facility] [address] [place] [address] Jayne Hamm Methodology: Comment Normal [facility] Comment on above: Result Comment: This liquid based SurePath(R) pap test was screened with the assistance of an image guided system. Performed By: #### 4 [id number] #### [facility] [address] [place] [address] Jayne Hamm Note: Comment Normal [facility] Comment on above: Result Comment: The Pap smear is a screening test designed to aid in the detection of premalignant and malignant conditions of the uterine cervix. It is not a diagnostic procedure and should not be used as the sole means of detecting cervical cancer. Both false-positive and false-negative reports do occur. . Performed By: #### 4 [id number] #### [facility] [address] [place] [address] Jayne Hamm Performed by: Comment Normal [facility] Comment on above: Result Comment: Suman Rdz, Last Model Department Supervisor (ASCP) Performed By: #### 4 [id number] #### [facility] [address] [place] [address] Jayne Hamm Reflex Criteria: Comment [facility] Comment on above: Result Comment: The HPV DNA reflex criteria were not met with this specimen result therefore, no HPV testing was performed. . Performed By: #### 4 [id number] #### [facility] [address] [place] [address] Jayne Hamm Specimen adequacy: Comment Normal [facility] Comment on above: Result Comment: Sati sfactory for evaluation. Endocervical and/or squamous metaplastic cells (endocervical component) are present. Performed By: #### 4 [id number] #### [facility] [address] [place] [address] Jayne Hamm US PELVIS AND TRANSVAGon US [...] by: DARLINE ESPITIA Date: 2020-04-30 14:54 Normal [facility] Vital Signs Date Time Vital Sign Value Performing Clinician Facility 06-23-2024 09:56-0500 Body weight 80.74 kg Won Marybeth DO Work Phone: [facility] 06-23-2024 09:56-0500 Diastolic blood pressure 70 mm[Hg] Won Marybeth DO Work Phone: [facility] 06-23-2024 09:56-0500 Systolic blood pressure 112 mm[Hg] Won Marybeth DO Work Phone: [facility] 06-05-2024 10:48-0400 Body weight 80.34 kg Won Marybeth DO Work Phone: [facility] 06-05-2024 10:48-0400 Diastolic blood pressure 64 mm[Hg] Won Marybeth DO Work Phone: [facility] 06-05-2024 10:48-0400 Systolic blood pressure 100 mm[Hg] Won Marybeth DO Work Phone: [facility] 12-10-2023 09:18-0400 Diastolic blood pressure 84 mm[Hg] Hill Jacobsen Work Phone: [facility] 12-10-2023 09:18-0400 Heart rate 101 /min Hill Jacobsen Work Phone: [facility] 12-10-2023 09:18-0400 Respiratory rate 12 /min Hill Jacobsen Work Phone: [facility] 12-10-2023 09:18-0400 Systolic blood pressure 132 mm[Hg] Hill Ann-Marie Work Phone: [facility] 11-02-2023 14:27-0400 Body height 180.3 cm Earle Chen MD Work Phone: [facility] 11-02-2023 14:27-0400 Body mass index (BMI) [Ratio] 20.04 kg/m2 Earle Chen MD Work Phone: [facility] 11-02-2023 14:27-0400 Body weight 65.18 kg aErle Chen MD Work Phone: [facility] 11-02-2023 14:27-0400 Diastolic blood pressure 80 mm[Hg] Earle Chen MD Work Phone: [facility] 11-02-2023 14:27-0400 Systolic blood pressure 110 mm[Hg] Earle Chen MD Work Phone: [facility] 09-14-2023 11:30-0500 Body height 180.34 cm Lucila Arnett Other [facility] 09-14-2023 11:30-0500 Body mass index (BMI) [Ratio] 20.92 kg/m2 Lucila Arnett Other [facility] [employer] Other 09-14-2023 11:30-0500 Body weight 68.04 kg Lucila Arnett Other [facility] [employer] Other 09-14-2023 11:30-0500 Body weight 68.03 kg [facility] 09-14-2023 11:30-0500 Diastolic blood pressure 68 mm[Hg] Lucila Arnett Other [facility] 09-14-2023 11:30-0500 Respiratory rate 16 /min Lucila Melquiades Other [employer] Other 09-14-2023 11:30-0500 SaO2% (BldA) [Mass fraction] 100 % Lucila Melquiades Other [employer] Other 09-14-2023 11:30-0500 Systolic blood pressure 110 mm[Hg] Lucial Melquiades Other [facility] 08-03-2023 10:00-0500 Body height 180.34 cm Lucila Melquiades Other [employer] Other 08-03-2023 10:00-0500 Body mass index (BMI) [Ratio] 20.78 kg/m2 Lucila Arnett Other [employer] Other 08-03-2023 10:00-0500 Body weight 67.59 kg Lucila Melquiades Other [employer] Other 08-03-2023 10:00-0500 Diastolic blood pressure 66 mm[Hg] Lucila Melquiades Other [employer] Other 08-03-2023 10:00-0500 SaO2% (BldA) [Mass fraction] 98 % Lucila Arnett Other [employer] Other 08-03-2023 10:00-0500 Systolic blood pressure 100 mm[Hg] Lucila Melquiades Other [employer] Other Encounters Encounter Date Encounter Type Care Provider Facility Start: 06-23-2024 End: 06-23-2024 Bamboo flowsheet Won Marybeth DO Work Phone: [facility] Start: 06-23-2024 End: 06-23-2024 Bamboo flowsheet Won Marybeth DO Work Phone: [facility] Start: 06-23-2024 End: 06-23-2024 Office outpatient visit 15 minutes Won Marybeth DO Work Phone: [facility] Comment on above: Third trimester preg travon; 35 weeks gestation of Start: 06-23-2024 End: 06-23-2024 ambulatory WON MARYBETH Not Available Start: 06-05-2024 End: 06-05-2024 Bamboo flowsheet Won Marybeth DO Work Phone: [facility] Start: 06-05-2024 End: 06-05-2024 Bamboo flowsheet Won Marybeth DO Work Phone: [facility] Start: 06-05-2024 End: 06-05-2024 [...] 03-31-2024 End: 03-31-2024 ambulatory WON R MARYBETH [facility] Start: 03-27-2024 End: 03-27-2024 ambulatory WON MARYBETH Not Available Start: 03-25-2024 End: 03-25-2024 ambulatory WON R MARYBETH [facility] Start: 03-13-2024 End: 03-13-2024 ambulatory PEDRO TABOR Not Available Start: 02-28-2024 End: 02-28-2024 ambulatory WON MARYBETH Not Available Start: 02-25-2024 End: 02-25-2024 ambulatory WON R MARYBETH [facility] Start: 02-13-2024 End: 02-13-2024 ambulatory WON MARYBETH Not Available Start: 01-30-2024 End: 01-30-2024 ambulatory WON MARYBETH Not Available Start: 01-21-2024 End: 01-21-[address] [facility] Start: 01-17-2024 End: 01-17-2024 ambulatory WON MARYBETH Not Available Start: 01-03-2024 End: 01-03-2024 ambulatory WON MARYBETH Not Available Start: 12-26-2023 End: 12-26-2023 ambulatory WON MARYBETH Not Available Start: 12-13-2023 End: 12-13-2023 ambulatory WON MARYBETH Not Available Start: 12-10-2023 End: 12-11-2023 ambulatory HAKEEM BEBA [facility] Start: 12-10-2023 End: 12-10-2023 Encounter identifier Hill Jacobsen Work Phone: [facility] Start: 12-06-2023 End: 12-07-2023 ambulatory HAKEEM YODER [facility] Start: 12-03-2023 End: 12-04-2023 ambulatory HAKEEM OYDER [facility] Start: 11-29-2023 End: 11-30-2023 ambulatory HAKEEM YODER [facility] Start: 11-26-2023 End: 11-27-2023 ambulatory HAKEEM YODER [facility] Start: 11-23-2023 End: 11-24-2023 ambulatory HAKEEM YODER [facility] Start: 11-21-2023 End: 11-22-2023 ambulatory HAKEEM YODER [facility] Start: 11-19-2023 End: 11-20-2023 ambulatory 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 Start: 11-19-2023 End: 11-19-2023 Patient encounter procedure LUCILA ARNETT [facility] Start: 11-14-2023 End: 11-14-2023 ambulatory [facility] Work Phone: Start: 11-14-2023 End: 11-14-2023 Patient encounter procedure [facility] Physician [facility] Work Phone: Start: 11-02-2023 ambulatory EARLE CHEN Facility:[facility] Start: 11-02-2023 End: 11-02-2023 Office outpatient new 60 minutes Earle Chen MD Work Phone: [facility] [place] Comment on above: Endometriosis (Prima ry Dx); Pelvic pain; Myalgia of pelvic floor; Dysmenorrhea; Dyspareunia in female; Nausea and vomiting, unspecified vomiting type; Bladder pain; Anxiety Start: 10-17-2023 End: 10-17-2023 Patient encounter procedure [facility] Physician [facility] Work Phone: Start: 09-14-2023 End: 09-14-2023 ambulatory Lucila Arnett Other [employer] Other Start: 09-14-2023 Office outpatient vi sit 25 minutes Lucila Arnett [facility] Start: 09-14-2023 End: 09-14-2023 Patient encounter procedure [facility] Physician [facility] Start: 08-09-2023 End: 08-09-2023 ambulatory Lucila Arnett Other [employer] Other Start: 08-09-2023 Telephone encounter Lucila krueger [facility] Start: 08-03-2023 End: 08-03-2023 ambulatory Lucila Arnett Other [facility] [employer] Other Start: 08-03-2023 Office outpatient ne w 30 minutes Lucila Arnett [facility] Start: 08-03-2023 Telephone encounter Lucila Dan her [employer]st Start: 07-12-2020 End: 07-13-[address] WON [...] Routine [facility] [address] [place] [address] Won Rueda, DO [address] [place], [place] [id number] [facility] Start: 06-30-2024 End: 06-30-2024 Professional / ancillary services management 06/30/2024 10:00 AM EST Ancillary Procedure [facility] [address] [place] [address] [facility] Start: 06-23-2024 End: [...] AM EDT Routine [facility] [address] [facility] [place] [address] Won Rueda DO [address] [place] [address] Arrived [facility] Comment on above: Arrived Start: 11-02-2023 End: 11-01-2024 MR Pelvis WO and W contrast IV MRI PELVIS WITH AND WITHOUT CONTRAST Imaging Routine Endometriosis Pelvic pain Expected: 11/02/2023, Expires: 11/01/2024 [facility] Comment on above: Expected: 11/02/2023 , Expires: 11/01/2024 Start: 10-17-2023 Patient referral [facility] Work Phone: Start: 04-20-2023 COVID-19 VACCINE ( season) COVID-19 VACCINE ( season) [facility] Start: 04-20-2023 Influenza vaccination INFLUENZA VACC INE (#1) [facility] Start: 2017 Screening for malign ant neoplasm of cervix CERVICAL CANCER SCREENING DISCUSSION [facility] Start: 11-08-2015 Hepatitis B vaccination HEP B VACCINE (1 of - + 3-dose series) [facility] Start: 11-08-2015 Third diphtheria, tetanus and acellular pertussis (DTaP) vaccination TDAP (ADULT) [facility] Start: 2012 Screening for Chlamy david trachomatis CHLAMYDIA SCREEN [facility] Start: 11-08-2011 HIV screening HIV SCREENING DISCUSSION [facility] Start: 11-08-2011 Vaccination for kale n papillomavirus HPV VACCINE ADOL (1 - 3-dose series) [facility] Start: 1996 Hepatitis C screening HEPATITI S C VIRUS SCREENING [facility] Start: 1996 Screening for Chlamy david trachomatis GONORRHEA SCREEN [facility] Start: 1996 Tetanus vaccination TETANUS [facility] Patient referral [facility] Work Phone: Payers Date Payer Category Payer Medicaid [id number] 2024 Medicaid [id number] 2023 [employer] ( and others) [id number] 2023 [employer] ( and others) [facility] [id number] 2023-Present [address] [place] [address] [id number] 2023 [employer] ( and others) [id number] 1996 Unknown [id number] 2.16.840.1.069095.3.579.2.5 1996 Unknown [id number] 2.16.840.1.023791.3.579.2.5 1996 Unknown [id number] 2.16.840.1.342759.3.579.2.5 1996 Unknown [id number] 2.16.840.1.320972.3.579.2.5 1996 Unknown [id number] 2.16.840.1.592633.3.579.2.5 1996 Unknown [id number] 2.16.840.1.861984.3.579.2.5 94 1996 Unknown [id number] 2.16.840.1.480144.3.579.2.7 27 1996 Unknown [id number] 2.16.840.1.319451.3.579.2.1 143 1996 Unknown [id number] 2.16.840.1.204473.3.579.2.1 143 1996 Unknown [id number] 2.16.840.1.043236.3.579.2.1 143 1996 Unknown [id number] 2.16.840.1.881171.3.579.2.1 143 1996 Unknown [id number] 2.16.840.1.581873.3.579.2.1 143 1996 Unknown [id number] 2.16840.1.392391.3.579.2.1 143 1996 Unknown [id number] 2.16.840.1.978431.3.579.2.1 143 1996 Unknown [id number] 2.16.840.1.143523.3.579.2.1 286 1996 Unknown [id number] 2.16.840.1.152103.3.579.2.1 286 1996 Unknown [id number] 2.16.840.1.436503.3.579.2.1 286 1996 Unknown [id number] 2.16.840.1.342645.3.579.2.1 286 1996 Unknown [id number] 2.16.840.1.709090.3.579.2.1 286 1996 Unknown [id number] 2.16.840.1.132477.3.579.2.1 286 1996 Unknown [id number] 2.16.840.1.140208.3.579.2.1 259 1996 Unknown [id number] 2.16.840.1.899567.3.579.2.1 259 1996 Unknown [id number] 2.16.840.1.182271.3.579.2.1 259 1996 Unknown [id number] 2.16.840.1.130946.3.579.2.1 259 1996 Unknown [id number] 2.16.840.1.932938.3.579.2.1 259 1996 Unknown [id number] 2.16.840.1.376954.3.579.2.1 259 1996 Unknown [id number] 2.16.840.1.011119.3.579.2.1 259 1996 Unknown [id number] 2.16.840.1.376509.3.579.2.1 259 1996 Unknown [id number] 2.16.840.1.999899.3.579.2.1 259 1996 Unknown [id number] 2.16.840.1.269927.3.579.2.1 259 1996 Unknown [id number] 2.16.840.1.036550.3.579.2.1 259 1996 Unknown [id number] 2.16.840.1.271410.3.579.2.1 259 1996 Unknown [id number] 2.16.840.1.251364.3.579.2.1 259 1996 Unknown [id number] 2.16.840.1.355055.3.579.2.1 259 1996 Unknown [id number] 2.16.840.1.774729.3.579.2.1 259 1959 [employer] ( and others) [id number] 1959 [employer] ( and others) [id number] [employer] ( and others) [id number] 2.16.840.1.581543.19 Social History Date Type Detail Facility Start: 11-02-2023 Sex Assigned At Joselito Lynch [facility] Start: 09-30-2017 End: 11-02-2023 Tobacco smoking status NHIS Never smoked tobacco [facility] Start: 11-02-2023 Tobacco use and exposure Smokeless tobacco non-user [facility] Start: 11-02-2023 Alcoholic beverage intake Lifetime non-drinker (finding) [facility] Start: 11-02-2023 History of Social function [facility] Start: 1996 Sex assigned at Not on file [facility] Start: 1996 Sex Assigned At Female [facility] Start: 12-10-2023 Tobacco smoking status NHIS Unknown if ever smoked [facility] Start: 12-10-2023 Alcohol intake Alcohol Use Details [facility] Start: 09-04-2023 Sexual Orientation Lesbian, lynch or homosexual [facility] Start: 11-03-2023 [facility] Clinical Notes 06-25-2020 to 06-23-2024 Zakiya Traylor [...] ondansetron 4 mg disintegrating tablet - Active Bjmiuxci-Zsm-Ie-FA ( 1 + IRON PO) Daily RT [...] Depression (CMS/HCC) Endometriosis OCD (obsessive compulsive disorder) (CMS/[facility]) PTSD (post-traumatic stress disorder) (CMS/[facility]) HISTORY PAST MEDICAL HISTORY SOCIAL HISTORY Past Medical History: Diagnosis Date Anxiety Depression (CMS/HCC) Endometriosis OCD (obsessive compulsive disorder) (CMS/HCC) PTSD (post-traumatic stress disorder) (CMS/[facility]) Social History Tobacco Use Smoking status: [...] nursing note reviewed. Exam conducted with a oracle consultant present. Vitals: There is no height or [...] having IOL on 07/06/24 @ 0000. Called [facility] and patient is on the books [...] Won Rueda DO documented in this encounter [facility] 06-05-2024 History of Present illness [...] ondansetron 4 mg disintegrating tablet - Active Ynklzhzn-Jly-Gj-FA ( 1 + IRON PO) Daily RT [...] Past Medical History: Diagnosis Date Anxiety Depression ([facility]) Endometriosis OCD (obsessive compulsive disorder) (CMS/[facility]) PTSD (post-traumatic stress disorder) ([facility]) HISTORY PAST MEDICAL HISTORY SOCIAL HISTORY Past Medical History: Diagnosis Date Anxiety Depression ([facility]) Endometriosis OCD (obsessive compulsive disorder) ([facility]) PTSD (post-traumatic stress disorder) ([facility]) Social History Tobacco Use Smoking status: [...] nursing note reviewed. Exam conducted with a oracle consultant present. Vitals: There is no height or [...] Won Rueda DO documented in this encounter [facility] 11-19-2023 Evaluation + Plan note Diagnostic Tests PendingT3 Free 11/19/23Thyroid Perox.tpo Ab 11/19/23TgAb+Thyroglobulin,CHING or ARLEN 11/19/23 [facility] 11-02-2023 History of Present illness Narrative GYNECOLOGY CONSULT NOTE REASON FOR VISIT Endometriosis Pelvic pain HISTORY OF PRESENT ILLNESS Ms. Medrano is a 27 y.o. (NSVDx2) who presents for consultation regarding endometriosis, pelvic pain. Records review: Moved back from [place] to [place] (2021) First diagnosed in 2017 Has had [...] a women's health doctor in [facility] who told her she had stage IV endometriosis. She is no longer on the progesterone. Has tried vaginal valium does not help Her 2 previous pregnancies were with a previous partner. She and her are trying for another now. No BA in [place] Partner has not had a SA yet [...] this encounter [facility] 09-14-2023 Evaluation note Encounter Date Diagnosis Assessment [...] educated on the risks and benefits of christian science practitioner use. Risk assessment was done. Patient is [...] Pt to call with any worsening symptoms. [employer] [facility] Other 12-21-2023 Evaluation note* Encounter Date Diagnosis Assessment Notes Treatment Notes Treatment Clinical Notes Jul, Generalized anxiety disorder (ICD-10 - F41.1) Jul, Endometriosis (ICD-1 0 - N80.9) [facility] [facility] Other 12-15-2023 Evaluation note* Encounter Date Diagnosis [...] educated on the risks and benefits of christian science practitioner use. Risk assessment was done as well [...] intractable, unspecified migraine type (ICD-10 - G43.909) [facility] Other 11-06-2020 NoteOPERATIVE NOTE OPERATION DATE: 06-25-20 ANESTHETIC:General. SURFACER:None. PREOPERATIVE DIAGNOSIS: 1. Dyspareunia. 2. Right and [...] lap, and needle counts were correct x2. [facility] Signed and Approved by: DR WON RUEDA . 07/30/2020 13:02:00[facility] note* Clinical Note Date No Information [facility] Work Phone: Discharge summary* Clinical Note Date No Information [facility] [place] Work Phone: Evaluation noteNo [employer] Other Evaluation note* Diagnosis Endometriosis- Primary Endometriosis, site unspecified Pelvic pain Unspecified symptom associated with female genital organs Myalgia of pelvic floor Dysmenorrhea Dyspareunia in female Nausea and vomiting, unspecified vomiting type Bladder pain Other symptoms involving urinary system Anxiety Anxiety state, unspecified documented [facility] Diagnosis Onset Date Resolution Status Depression acute Generalized anxiety disorder acute Obsessive compulsive disorder acute PTSD (post-traumatic stress disorder) acute Depression acute Endometriosis acute Generalized anxiety disorder acute Obsessive compulsive disorder acute PTSD (post-traumatic stress disorder) acute TBI (traumatic brain injury) acute [facility] Work Phone: Evaluation note* Type Assessment Date No Information [facility] Work Phone: Evaluation note* Diagnosis 32 weeks [...] Clinical Note Date No Information [facility] Work Phone: History general Narrative - Reported* Type Description Date Medical History Anxiety Medical History Stage 4 Endometriosis Medical History Depression with manic episodes Medical History OCD Medical History PTSD Medical History TBI Surgical History Endometriosis surgery x2 Surgical History Ames teeth Surgical History Injections in cervix [facility] [facility] Other History of Present illness Narrative* Encounter Date Complaint History Of Prese nt Illness No Information [facility] [employer] Phone: Hospital course Narrative No data available for this section [facility] No data available for this section [facility]* Date Instruction Additional Infor mation No Information [facility] Phone: Progress note No data available for this section [facility] Clinical Note Date No Information [facility] Work Phone: Reason for referral (narrative)* Consultation (Routine) - New Request Specialty Diagnoses / Procedures Referred By Harris gautam Referred To Contact Psychology Diagnoses Pelvic pain Anxiety Earle Chen MD [address] [place] [address] Oksana Luu, PhD [address] [place] [address] Referral ID Status Reason Start Date Expiration Date V isits Requested Visits Authorized [id number] New Request 11/02/2023 11/26/2024 1 1 * Consultation (Routine) - New Request Specialty Diagnoses / Procedures Referred By Harris gautam Referred To Contact Integrative Medicine Diagnoses Pelvic pain Nausea and vomiting, unspecified vomiting type Earle Chen MD [address] [place] [address] Referral ID Status Reason Start Date Expiration Date V isits Requested Visits Authorized [id number] New Request 11/02/2023 11/26/2024 1 1 * Consultation (Routine) - New Request Specialty Diagnoses / Procedures Referred By Harris gautam Referred To Contact Gynecology Diagnoses Pelvic pain Myalgia of pelvic floor Bladder pain Earle Chen MD [address] [place] [address] Referral ID Status Reason Start Date Expiration Date V isits Requested Visits Authorized [id number] New Request 11/02/2023 11/26/2024 1 1 * MRI/CAT Scan (Routine) - New Request Specialty Diagnoses / Procedures Referred By Harris gautam Referred To Contact Diagnoses Endometriosis Pelvic pain Procedures MRI PELVIS WITH AND WITHOUT CONTRAST DC MRI, PELVIS, COMBO Earle Chen MD [address] [place] [address] Referral ID Status Reason Start Date Expiration Date V isits Requested Visits Authorized [id number] New Request 11/02/2023 11/26/2024 1 1 [facility] Reason For Referral No Information [facility] Work Phone: Summary Purpose Family History Relationship [...] Diagnosis 1 Endometriosis (N80.9 ) Referral Organization [facility] angel Referring Provider First Name Lucila Referring Provider Last Name Steveachealaina Referring Provider Specialty Nurse Pract itioner Referred Organization [facility] Referred Provider Jena Suresh Referred Address ,[place], [place],[address] Referred Provider Specialty OB - Gynecol ogy [...] (G43.909) Referral Organization [facility] Referring Provider First Name [facility] Referring Provider Last Name [facility] Referring Provider Specialty Nurse Pract itsamburgr Referred Organization [facility] Referred Provider Herbie Arroyo Referred Address [address] [place], [place],[address] Referred Provider Specialty Neurology Referral Priority Routine [...] ) Referral Organization [facility] Referring Provider First Name Lucila Referring [facility] Referring Provider Specialty Nurse Pract itioner Referred [facility] Referred Address [address] [place], [place],[address] Referred Provider Specialty Endocrinolog y Referral Priority [...] DATE CREATED AUTHOR AUTHOR'S ORGANIZ ATION 11/03/2023 [facility] DATE CREATED AUTHOR AUTHOR'S ORGANIZ ATION 11/20/2023 [facility] DATE CREATED AUTHOR AUTHOR'S ORGANIZ ATION 12/15/2023 [facility] DATE CREATED AUTHOR AUTHOR'S ORGANIZ ATION 04/01/2024 [facility] DATE CREATED AUTHOR AUTHOR'S ORGANIZ ATION 06/24/2024 [facility] d[facility] Specialists EPIC REASON FOR VISIT (unrecogniz ed section and content) Reason Comments Consult Pt diagnosis with En dometriosis in 2018. Patient desire . Specialty Diagnoses / Procedures Referred By Contac t Referred To Contact WIND PLANT MANAGER Diagnoses Endometriosis Lucila Arnett CNP [address] [facility] [place] [address] [facility] [address] [place] [address] Referral ID Status Reason Start Date Expiration Date V isits Requested Visits Authorized [id number] New Request 10/23/2023 11/16/2024 1 1 Reason Comments Routine Visit Care Teams (unrecognized sec tion and content) Team Status: Active Member Role Status Dates Lucila Arnett APRN MANAGER ORANGE-C Primary Care Provider Active Team Status: Inactive Member Role Status Dates Lucila Arnett APRN MANAGER [employer]-Jazmine Attending Provider Act vinicius Start: September 14, 2023 End: September 14, 2023 Team Status: Inactive Member Role Status Dates Lucila Arnett APRN MANAGER [employer]-Jazmine Primary Care Provider, Attending Provider Active Start: October 17, 2023 End: October 17, 2023 Team Status: Inactive Member Role Status Dates Lucila Arnett APRN MANAGER [employer]-C Primary Care Provider, Attending Provider Active Start: November 14, 2023 End: November 14, 2023 Name Effective Dates (start - stop) Status Members No Information Male Impersonator Relationship Specialty Start Date End Date Lucila Arnett NP [address] [facility] [place] [address] PCP - General Family Medicine 11/11/23 Male Impersonator Relationship Specialty Start Date End Date Lucila Arnett NP [address] [facility] [place] [address] PCP - General Family Medicine 11/11/23 Male Impersonator Relationship Specialty Start Date End Date Lucila Arnett NP [address] [facility] [place] [address] PCP - General Family Medicine 11/11/23 Male Impersonator Relationship Specialty Start Date End Date Lucila Arnett NP [address] [facility] [place] [address] PCP - General Family Medicine 11/11/23 Goals [...] BE BASED ON THE PRIMARY CLINICAL RECORDS. [facility]. provides no warranty or guarantee of the accuracy or completeness of information in this document.
[2024-06-30 11:26] VITALS: BP 100/66; PULSE 104
== END 2024-06-30 11:54 | disposition home or self-care (01) ==
LOC: FBCO 07:07 → FBC 11:18
PROVIDERS: PCP Nurse Practitioner Family; Visit Provider Obstetrics & Gynecology
DX: O26.893 Other specified pregnancy related conditions, third trimester (principal); O09.293 Supervision of pregnancy with other poor reproductive or obstetric history, third trimester; O09.893 Supervision of other high risk pregnancies, third trimester; R73.09 Other abnormal glucose; R10.9 Unspecified abdominal pain; R10.2 Pelvic and perineal pain; Z3A.36 36 weeks gestation of pregnancy
CPT/HCPCS: 59025; 76816

== ENCOUNTER 2024-06-30 09:44 | Outpatient (OUT) | payer OTHER, SELFPAY ==
--- NOTE | 2024-06-30 09:48 | US_ITS ---
[address] [address] Patient Name: COLTON VERMA MRN: [id number] date: 1995 Sex: F Assigned Patient Location: [facility] Current Patient Location: [facility] Accession/Order Number: [id number] Exam Date: 06/30/2024 09:50 Report Date: 06/30/2024 10:15 At the request of: WON LESTER Procedure: US OB growth EXAMINATION: US OB growth HISTORY: Elevated glucose tolerance test R73.09 COMPARISON: No relevant comparison available. FINDINGS: Heart Rate: 132 bpm Amniotic Fluid Volume: 13.5 cm, largest fluid pocket 4.3 cm Number: 1 Position: CEPHALIC BIOMETRY: BPD: 8.56 cm; 34 weeks 4 days; 14.10 % HC: 32.35 cm; 36 weeks 4 days; 27.30 % AC: 31.22 cm; 35 weeks 1 day; 28.50 % FL: 7.28 cm; 37 weeks 2 days; 71.80 % EFW: 2516.25 g; 38.90 %, 6 lbs. 2 oz. FL/AC: 23.32 FL/BPD: 85.05 HC/AC: 1.04 GESTATIONAL AGE: Age by EDC: 36 weeks 2 days SINA by EDC: 2024-07-26 Age by US: 36 weeks 0 days SINA by US: 2024-07-28 US/US OB growth IMPRESSION: Normal interval growth Electronically authenticated by: DARLINE ESPITIA Date: 06/30/2024 10:15
== END 2024-06-30 09:45 | disposition home or self-care (01) ==
LOC: NOMS 09:44
PROVIDERS: PCP Nurse Practitioner Family; Visit Provider Obstetrics & Gynecology
DX: O26.893 Other specified pregnancy related conditions, third trimester (principal); O09.293 Supervision of pregnancy with other poor reproductive or obstetric history, third trimester; O09.893 Supervision of other high risk pregnancies, third trimester; R73.09 Other abnormal glucose; R10.9 Unspecified abdominal pain; R10.2 Pelvic and perineal pain; Z3A.36 36 weeks gestation of pregnancy
CPT/HCPCS: 76816

== ENCOUNTER 2024-07-03 08:18 | Outpatient (OUT) | payer OTHER, SELFPAY ==
--- OUTSIDE RECORDS SUMMARY | 2024-07-03 08:25 | XMS_ITS | CCD ---
Author Organization [facility] Inform ion [facility] Care Team Providers Care Systems Integration Analyst Name Role Phone MARYBETH, DR UPTON Admitting [...] DR UPTON Attending Unavailable Lucila Arnett Unavailable [phone] Unavailable Primary Care Provider Unavailabl e [...] Unavailable Unavailable MARYBETH, WON R Referring Unavailable VAN HOOK, BARI Attending Unavailable MARYBETH, WON R Referring Unavailable MARYBETH, WON R Referring Unavailable POLA HORNE Attending Unavailable MARYBETH, WON R Referring Unavailable MARYBETH, WON R Referring Unavailable MARYBETH, WON R Referring Unavailable Ellyrbacher ASSEMBLER KNIFE, Lucila Aponte Primary Care Provider MARYBETH, WON [...] (1 source) traMADol Drug Allergy 0 [facility] Repository (12 sources) traMADol; Translations: [TRAMADOL] Drug Allergy 4 Unknown, Hives [facility] (12 sources) Lavender Oil; Translations: [LAVENDER OIL] Drug allergy 4 Unknown [facility] Repository (1 source) lavender (Lavandula angustifolia) Allergy to substance 4 Unknown Reaction [facility] (7 sources) GALCANEZUMAB-GNL M; Translations: [GALCANEZUMAB-GN LM] Propensity to adverse reactions to drug (disorder) 4 [facility] Repository (6 sources) Galcanezumab Propensity to adverse reactions 4 [facility] Work Phone: Medications Current Medications Medication [...] oral solution (1 source) alpha-Adrenergic Agonist, Uncompetitive J-zfyibt-E-aspartate Receptor Antagonist, Sigma-1 Agonist Start : 09-30 [...] Daily 30 capsule 6 05/05/2024 05/05/2025 Active Qnlzafgh-Gyl-Zq-FA ( 1 + IRON PO) (6 sources) Xlrnifja-Hnq-Vt-FA ( 1 + IRON PO) Take by [...] q6hr, # 10 tab(s), Refills(s) 0, Pharmacy: [facility] 1985 Start Date: 09/21/18 Status: Ordered zolpidem [...] UA Negative Negative - 4(70) +++ mg/dL [facility] Blood, UA Positive Negative - 50 Jt/mcL [facility] Comment on above: trace Clarity, UA Clear [facility] Color, UA Yellow [facility] Glucose, UA Negative Negative - 2000(110) ++++ mg/dL [facility] Interpretation and review of laboratory results Abnormal [facility] Ketones, UA Negative Negative - 160(16) ++++ mg/dL [facility] Leukocytes, UA Negative Negative - 500+++ [place]/mcL [facility] Nitrite, UA Negative Negative - Positive [facility] pH, UA 7 5 - 9 [facility] Protein, UA Negative Negative - 2000(20) ++++ mg/dL [facility] Spec Grav, UA 1.02 1 - 1.03 [facility] Urobilinogen, UA 2.0 0.2 - 12 mg/dL [facility] Urinalysis macro (dipstick) panel (U)on 06-05-2024 Bilirubin, UA Negative Negative - 4(70) +++ mg/dL [facility] Blood, UA Positive Negative - 50 Jt/mcL [facility] Comment on above: trace-intact Clarity, UA Clear [facility] Color, UA Yellow [facility] Glucose, UA Negative Negative - 1999(110) ++++ mg/dL [facility] Interpretation and review of laboratory results Abnormal [facility] Ketones, UA Negative Negative - 160(16) ++++ mg/dL [facility] Leukocytes, UA Negative Negative - 500+++ [place]/mcL [facility] Nitrite, UA Negative Negative - Positive [facility] pH, UA 7 5 - 9 [facility] Protein, UA Negative Negative - 2000(20) ++++ mg/dL [facility] Spec Grav, UA 1.02 1 - 1.03 [facility] Urobilinogen, UA 1.0 0.2 - 12 mg/dL [facility] HCG.beta subunit Qnon 2023 hCG Quant [id number] mIU/mL Normal [facility] Comment on [...] method. Performed By: #### 2 1198-7 #### [facility] [address] [place] [address] HCG.beta subunit Qnon 2023 hCG Quant [id number] mIU/mL Normal [facility] Comment on above: Order Comment: Pregn [...] method. Performed By: #### 2 1198-7 #### [facility] [address] [place] [address] HCG.beta subunit Qnon 2023 hCG Quant [id number] mIU/mL Normal [facility] Comment on above: Order Comment: Pregn [...] method. Performed By: #### 2 1198-7 #### [facility] [address] [place] [address] HCG.beta subunit Qnon 2023 hCG Quant [id number] mIU/mL Normal [facility] Comment on above: Order Comment: Pregn [...] method. Performed By: #### 2 1198-7 #### [facility] [address] [place] [address] HCG.beta subunit Qnon 2023 hCG Quant 2709 mIU/mL Normal [facility] Comment on above: Order Comment: Pregn [...] method. Performed By: #### 2 1198-7 #### [facility] [address] [place] [address] HCG.beta subunit Qnon 2023 hCG Quant 776 mIU/mL Normal [facility] Comment on above: Order Comment: Pregn [...] method. Performed By: #### 2 1198-7 #### [facility] [address] [place] [address] HCG.beta subunit Qnon 2023 hCG Quant 250 mIU/mL Normal [facility] Comment on above: Order Comment: Pregn [...] method. Performed By: #### 2 1198-7 #### [facility] [address] [place] [address] .Thyroglobulin by IMAon 04 Thyroglobulin [Mass/Vol] 5.0 ng/mL Invalid Interpretation Code 1.5-38.5 [facility] Comment on above: Result Comment: Acco rding [...] quantitation is 0.1 ng/mL Thyroglobulin measured by [facility] Immunometric Assay Performed at: [facility] [id number] PhD Johanny Nieto Performed By: #### 2 [id number], [id number], [id number], [id number], [id number], [id number], [id number] #### [facility] [address] [place] [address] T3 Freeon 11-20-2023 Free T3 [Mass/Vol] 3.2 pg/mL Invalid Interpretation Code 2.0-4.4 [facility] Comment on above: Result Comment: Perf ormed at: [address] [id number] PhD Johanny Nieto Performed By: #### 2 232603, [id number], [id number], [id number], [id number], [id number], [id number] #### [facility] [address] [place] [address] TgAb+Thyroglobulinon 024 Thyroglobulin Ab Qn [IU]/mL Invalid Interpretation Code 0.0-0.9 [facility] Comment on above: Result Comment: Thyr oglobulin Antibody measured by [employer] Methodology It should be noted that the presence of thyroglobulin antibodies may not be pathogenic nor diagnostic, especially at very low levels. The assay cd mixer helper has found that four percent of individuals without evidence of thyroid disease or autoimmunity will have positive TgAb levels up to 4 IU/mL. Performed at: [facility] [address], [place] [id number] PhD Johanny Nieto Performed By: #### 2 590322, [id number], [id number], 6861816, [id number], [id number], [id number] #### [facility] [address] [place] [address] Thyroid Perox.tpo Abon 11-19 TPO Ab Qn [IU]/mL Invalid Interpretation Code 0-34 [facility] Comment on above: Result Comment: [facility]f [facility]med at: [facility] [address], [place] [id number] PhD Johanny Nieto Performed By: #### 2 768055, [id number], 47568660, 6011164, [id number], [id number], [id number] #### [facility] [address] [place] [address] BhCG Quanton 11-19-2023 HCG.beta subunit Qn 86 m[IU]/mL High 1-3 [facility] Comment on above: Result Comment: 'F N ON < 1 - 3' ' 0.2 - 1 WEEK = 5 TO 50' ' 1 - 2 WEEKS = 50 - 500' ' 2 - 3 WEEKS = 100 - 5000' ' 3 - 4 WEEKS = 500 - 85267' ' 4 - 5 WEEKS = 1000 - 68794' ' 5 - 6 WEEKS = 01697 - 094512' ' 6 - 8 WEEKS = 40556 - 474992' ' 8 - 12 WEEKS = 40064 - 913779' Performed By: #### 2 [id number] #### [facility] [address] [place] [address] CHEMISTRYOrdered By: SYSTEM SYSTEM on 11-19-2023 HCG.beta [...] 3 - 4 WEEKS = 500 - 48436' ' 4 - 5 WEEKS = 1000 - 58915' ' 5 - 6 WEEKS = 20041 - 994947' ' 6 - 8 WEEKS = 31588 - 088707' ' 8 - 12 WEEKS = 88418 - 564550' Iron [Mass/Vol] 161 ug/dL High 35 - 153 mcg/dL [facility] Iron binding capacity [Mass/Vol] 316 ug/dL Normal 250 - 400 mcg/dL [facility] Transferrin [Mass/Vol] 226 mg/dL Normal 200 - 370 mg/dL [facility] TSH Qn 1.53 m[IU]/L Normal 0.34 - 5.60 mcIU/mL Remisol Chem Consent for Treatmenton Consent for Treatment [id number] #1.00TIFF Normal [facility] Ironon 11-19-2023 Iron [Mass/Vol] 161 microgram/dL High 35-153 [facility] Comment on above: Performed By: #### 2 449225, [id number], [id number], 5497368, 037157304, [id number], [id number] #### [facility] [address] [place] [address] Physician Orderon 11-19-2023 Physician Order [id number] #1.00TIFF Normal [facility] TIBC Calculatedon 11-19-2023 Iron binding capacity [Mass/Vol] 316 microgram/dL Normal 250-400 [facility] Comment on above: Performed By: #### 2 287801, [id number], 35015977, 0974586, [id number], [id number], [id number] #### [facility] [address] [place] [address] Transferrin [Mass/Vol] 226 mg/dL Normal 200-370 [facility] Comment on above: Performed By: #### 2 735238, 60972530, 11107769, 7026372, 024075238, [id number], [id number] #### [facility] [address] [place] [address] TSH With T4fr Reflexon 11-18 TSH Qn 1.53 m[IU]/L Normal 0.34-5.60 [facility] Comment on above: Performed By: #### 2 362113, 97950266, 29796398, 6835003, [id number], [id number], [id number] #### [facility] [address] [place] [address] TSHon 07-12-2020 TSH 0.756 uIU/mL Normal 0.470-4.680 [facility] Comment on above: Performed By: #### T SH #### [facility] [address] [place] [address] Jayne Noris TSH RANGE SEE BELOW Normal [facility] Comment on above: Result Comment: <0.3 4 UIU/ml HYPERTHYROID 0.34-5.60 UIU/ml EUTHYROID >5.60 UIU/ml HYPOTHYROID Performed By: #### T SH #### [facility] [address] [place], [place] [address] Jayne Noris CBC AUTO DIFFon 06-25-2020 BASO # 0.1 103/ul Normal 0.0-0.1 [facility] Comment on above: Performed By: #### C BC #### [facility] [address] [place], [place] [address] Jayne Noris Basophils/100 WBC (Bld) 1.2 % Normal 0.2-2.0 [facility] Comment on above: Performed By: #### C BC #### [facility] [address] [place], [place] [address] Jayne Noris EO # 0.2 103/ul Normal 0.0-0.7 [facility] Comment on above: Performed By: #### C BC #### [facility] [address] [place], [place] [address] Jayne Noris Eosinophils/100 WBC (Bld) 2.6 % Normal 0.9-7.0 [facility] Comment on above: Performed By: #### C BC #### [facility] [address] [place] [address] Jayne Hamm Erythrocyte distribution width (RBC) [Ratio] 12.0 % Normal 11.0-15.0 [facility] Comment on above: Performed By: #### C BC #### [facility] [address] [place] [address] Jayne Hamm Hematocrit (Bld) [Volume fraction] 40.7 % Normal 36.0-48.0 [facility] Comment on above: Performed By: #### C BC #### [facility] [address] [place] [address] Jayne Hamm Hemoglobin (Bld) [Mass/Vol] 13.6 g/dL Normal 12.0-16.0 [facility] Comment on above: Performed By: #### C BC #### [facility] [address] [place] [address] Jaynejeremías Hamm IG # 0.01 10e3/ul Normal 0.00-0.03 [facility] Comment on above: Performed By: #### C BC #### [facility] [address] [place] [address] Jayne Hamm IG % 0.2 % Normal 0.0-0.5 [facility] Comment on above: Performed By: #### C BC #### [facility] [address] [place] [address] Jayne Noris LYMPH # 1.9 103/ul Normal 1.2-3.8 [facility] Comment on above: Performed By: #### C BC #### [facility] [address] [place] [address] Jayne Hamm Lymphocytes/100 WBC (Bld) 32.5 % Normal 20.5-60.0 [facility] Comment on above: Performed By: #### C BC #### [facility] [address] [place] [address] Jayne Hamm MANUAL DIFF REQ NO Normal [facility] Comment on above: Performed By: #### C BC #### [facility] [address] [id number] Jaynejeremías Hamm MCH (RBC) [Entitic mass] 31.3 pg Normal 26.7-34.0 [facility] Comment on above: Performed By: #### C BC #### [facility] [address] [place], [place] [address] Jayne Hamm MCHC (RBC) [Mass/Vol] 33.4 g/dL Normal 29.9-35.2 [facility] Comment on above: Performed By: #### C BC #### [facility] [address] [place], [place] [address] Jaynejeremías Hamm MCV (RBC) [Entitic vol] 93.6 fL Normal 81.0-99.0 [facility] Comment on above: Performed By: #### C BC #### [facility] [address] [place] [address] Jayne Cruzen MONO # 0.6 103/ul Normal 0.3-0.8 [facility] Comment on above: Performed By: #### C BC #### [facility] [address] [place], [place] [address] Jayne Hamm Monocytes/100 WBC (Bld) 10.4 % Normal 1.7-12.0 [facility] Comment on above: Performed By: #### C BC #### [facility] [address] [place] [address] Jaynejeremías Cruzen NEUT # 3.1 103/ul Normal 1.4-6.5 [facility] Comment on above: Performed By: #### C BC #### [facility] [address] [place], [place] [address] Jayne Noris Neutrophils/100 WBC (Bld) 53.1 % Normal 43.0-75.0 [facility] Comment on above: Performed By: #### C BC #### [facility] [address] [place], [place] [address] Jayne Noris Platelet mean volume (Bld) [Entitic vol] 8.9 fL Critically low 9.5-13.5 [facility] Comment on above: Performed By: #### C BC #### [facility] [address] [id number] Jayne Hamm PLT 265 103/ul Normal 150-450 [facility] Comment on above: Performed By: #### C BC #### [facility] [address] [place] [address] Jayne Hamm RBC 4.35 106/ul Normal 4.20-5.40 [facility] Comment on above: Performed By: #### C BC #### [facility] [address] [address] Jayne Hamm WBC 5.8 103/ul Normal 4.0-11.0 [facility] Comment on above: Performed By: #### C BC #### [facility] [address] [place] [address] Jayne Hamm PREG QUANT HCGon 06-25-2020 HCG QUANT 1.00 mIU/mL Normal [facility] Comment on above: Performed By: #### P REGQNT #### [facility] [address] [place] [address] Jayne Hamm HCG RANGE SEE BELOW Normal [facility] Comment on above: Result Comment: 5-50 0-1 WEEK 40-300 1-2 WEEKS 100-1,000 2-3 WEEKS 500-6,000 3-4 WEEKS 5,000-200,000 1-2 MONTHS 10,000-100,000 2-3 MONTHS 3,000-50,000 2ND TRIMESTER 1,000-50,000 3RD TRIMESTER Performed By: #### P REGQNT #### [facility] [address] [place] [address] Jayne Hamm PAP ACOG PANEL 2: 21 to 29on 05-06-2020 . . Normal [facility] Comment on above: Performed By: #### 4 [id number] #### [facility] [address] [place], [place] [address] Jaynejeremías Hamm Age Gdln ACOG Testing - Normal [facility] Comment on above: Performed By: #### 4 [id number] #### [facility] [address] [place], [place] [address] Jayne Hamm DIAGNOSIS: Comment Normal [facility] Comment on above: Result Comment: NEGA TIVE FOR INTRAEPITHELIAL LESION OR MALIGNANCY. Performed By: #### 4 [id number] #### [facility] [address] [place] [address] Jayne Hamm Methodology: Comment Normal [facility] Comment on above: Result Comment: This liquid based SurePath(R) pap test was screened with the assistance of an image guided system. Performed By: #### 4 [id number] #### [facility] [address] [place] [address] Jayne Hamm Note: Comment Normal [facility] Comment on above: Result Comment: The Pap smear is a screening test designed to aid in the detection of premalignant and malignant conditions of the uterine cervix. It is not a diagnostic procedure and should not be used as the sole means of detecting cervical cancer. Both false-positive and false-negative reports do occur. . Performed By: #### 4 [id number] #### [facility] [address] [place] [address] Jayne Hamm Performed by: Comment Normal [facility] Comment on above: Result Comment: Suman Rdz, Ged Preparation Teacher (ASCP) Performed By: #### 4 [id number] #### [facility] [address] [place] [address] Jayne Hamm Reflex Criteria: Comment Normal [facility] Comment on above: Result Comment: The HPV DNA reflex criteria were not met with this specimen result therefore, no HPV testing was performed. . Performed By: #### 4 [id number] #### [facility] [address] [place] [address] Jayne Hamm Specimen adequacy: Comment Normal [facility] Comment on above: Result Comment: Sati sfactory for evaluation. Endocervical and/or squamous metaplastic cells (endocervical component) are present. Performed By: #### 4 [id number] #### [facility] [address] [place] [address] Jayne aHmm US PELVIS AND TRANSVAGon US PELVIS AND [...] by: DARLINE ESPITIA Date: 2020-04-30 14:54 Normal [facility] Vital Signs Date Time Vital Sign Value Performing Clinician Facility 06-23-2024 09:56-0500 Body weight 80.74 kg Won Marybeth DO Work Phone: [facility] 06-23-2024 09:56-0500 Diastolic blood pressure 70 mm[Hg] Won Marybeth DO Work Phone: [facility] 06-23-2024 09:56-0500 Systolic blood pressure 112 mm[Hg] Won Marybeth DO Work Phone: [facility] 06-05-2024 10:48-0400 Body weight 80.34 kg Won Marybeth DO Work Phone: [facility] 06-05-2024 10:48-0400 Diastolic blood pressure 64 mm[Hg] Won Marybeth DO Work Phone: [facility] 06-05-2024 10:48-0400 Systolic blood pressure 100 mm[Hg] Won Marybeth DO Work Phone: [facility] 12-10-2023 09:18-0400 Diastolic blood pressure 84 mm[Hg] Hill Jacobsen Work Phone: [facility] 12-10-2023 09:18-0400 Heart rate 101 /min Hill Jacobsen Work Phone: [facility] 12-10-2023 09:18-0400 Respiratory rate 12 /min Hill Ann-Marie Work Phone: [facility] 12-10-2023 09:18-0400 Systolic blood pressure 132 mm[Hg] Hill Jacobsen Work Phone: [facility] 11-02-2023 14:27-0400 Body height 180.3 cm Earle Chen MD Work Phone: [facility] 11-02-2023 14:27-0400 Body mass index (BMI) [Ratio] 20.04 kg/m2 Earle Chen MD Work Phone: [facility] 11-02-2023 14:27-0400 Body weight 65.18 kg Earle Chen MD Work Phone: [facility] 11-02-2023 14:27-0400 Diastolic blood pressure 80 mm[Hg] Earle Chen MD Work Phone: [facility] 11-02-2023 14:27-0400 Systolic blood pressure 110 mm[Hg] Earle Chen MD Work Phone: [facility] 09-14-2023 11:30-0500 Body height 180.34 cm Lucila Arnett Other [facility] 09-14-2023 11:30-0500 Body mass index (BMI) [Ratio] 20.92 kg/m2 Lucila Arnett Other [facility] Other 09-14-2023 11:30-0500 Body weight 68.04 kg Lucila Arnett Other [facility] Other 09-14-2023 11:30-0500 Body weight 68.03 kg [facility] 09-14-2023 11:30-0500 Diastolic blood pressure 68 mm[Hg] Lucila Arnett Other [facility] 09-14-2023 11:30-0500 Respiratory rate 16 /min Lucila Melquiades Other [facility] Other 09-14-2023 11:30-0500 SaO2% (BldA) [Mass fraction] 100 % Lucila Arnett Other [facility] Other 09-14-2023 11:30-0500 Systolic blood pressure 110 mm[Hg] Lucila Melquiades Other [facility] 08-03-2023 10:00-0500 Body height 180.34 cm Lucila Melquiades Other [facility] Other 08-03-2023 10:00-0500 Body mass index (BMI) [Ratio] 20.78 kg/m2 Lucilaleah Arnett Other [facility] Other 08-03-2023 10:00-0500 Body weight 67.59 kg Lucila Melquiades Other [facility] Other 08-03-2023 10:00-0500 Diastolic blood pressure 66 mm[Hg] Lucila Arnett Other [facility] Other 08-03-2023 10:00-0500 SaO2% (BldA) [Mass fraction] 98 % Lucila Arnett Other [facility] Other 08-03-2023 10:00-0500 Systolic blood pressure 100 mm[Hg] Lucila Arnett Other [facility] Other Encounters Encounter Date Encounter Type Care Provider Facility Start: 06-30-2024 End: 06-30-2024 ambulatory WON MARYBETH Not Available Start: 06-23-2024 End: 06-23-2024 Bamboo flowsheet Won [...] Not Available Start: 03-31-2024 End: 03-31-2024 ambulatory OWN R MARYBETH [facility] Start: 03-27-2024 End: 03-27-2024 ambulatory WON MARYBETH Not Available Start: 03-25-2024 End: 03-25-2024 ambulatory WON R [facility] Start: 03-13-2024 End: 03-13-2024 ambulatory PEDRO TABOR Not Available Start: 02-28-2024 End: 02-28-2024 ambulatory WON MARYBETH Not Available Start: 02-25-2024 End: 02-25-2024 ambulatory WON R [facility] Start: 02-13-2024 End: 02-13-2024 ambulatory WON MARYBETH Not Available Start: 01-30-2024 End: 01-30-2024 ambulatory WON MARYBETH Not Available Start: 01-21-2024 End: 01-21-2024 ambulatory WON R [facility] Start: 01-17-2024 End: 01-17-2024 ambulatory WON MARYBETH Not Available Start: 01-03-2024 End: 01-03-2024 ambulatory WON MARYBETH Not Available Start: 12-26-2023 End: 12-26-2023 ambulatory WON MARYBETH Not Available Start: 12-13-2023 End: 12-13-2023 ambulatory WON MARYBETH Not Available Start: 12-10-2023 End: 12-11-2023 ambulatory HAKEEM BEBA [facility] Start: 12-10-2023 End: 12-10-2023 Encounter identifier Hill Jacobsen Work Phone: [facility] Start: 12-06-2023 End: 12-07-2023 ambulatory HAKEEM YODER [facility] Start: 12-03-2023 End: 12-04-2023 ambulatory HAKEEM YODER [facility] Start: 11-29-2023 End: 11-30-2023 ambulatory HAKEEM YODER [facility] Start: 11-26-2023 End: 11-27-2023 ambulatory HAKEEM YODER [facility] Start: 11-23-2023 End: 11-24-2023 ambulatory HAKEEM YODER [facility] Start: 11-21-2023 End: 11-22-2023 ambulatory HAKEEM YODER [facility] Start: 11-19-2023 End: 11-20-2023 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 Facility:[facility] Start: 11-19-2023 End: 11-19-2023 Patient encounter procedure LUCILA ARNETT [facility] Start: 11-14-2023 End: 11-14-2023 ambulatory [facility] Work Phone: Start: 11-14-2023 End: 11-14-2023 Patient encounter procedure [facility] Physician [facility] Work Phone: Start: 11-02-2023 ambulatory EARLE CHEN Facility:[facility] Start: 11-02-2023 End: 11-02-2023 Office outpatient new 60 minutes Earle Chen MD Work Phone: [facility] Comment on above: Endometriosis (Prima ry Dx); Pelvic pain; Myalgia of pelvic floor; Dysmenorrhea; Dyspareunia in female; Nausea and vomiting, unspecified vomiting type; Bladder pain; Anxiety Start: 10-17-2023 End: 10-17-2023 Patient encounter procedure [facility] Work Phone: Start: 09-14-2023 End: 09-14-2023 ambulatory Lucila Arnett Other [facility] Other Start: 09-14-2023 Office outpatient vi sit 25 minutes Lucila Arnett [facility] Start: 09-14-2023 End: 09-14-2023 Patient encounter procedure [facility]- Start: 08-09-2023 End: 08-09-2023 ambulatory Lucila Arnett Other [facility] Other Start: 08-09-2023 Telephone encounter Lucila Sanabriarbac her [facility] Start: 08-03-2023 End: 08-03-2023 ambulatory Lucila Melquiades Other [facility] Other Start: 08-03-2023 Office outpatient ne w 30 minutes Lucila Melquiades [facility] Start: 08-03-2023 Telephone encounter Lucila Sanabriamechelle her [facility] [employer] [facility] Start: 07-12-2020 End: 07-13-[address] WON [...] Routine [facility] [address] [place] [id number] Won Rueda, DO [address] [place] [address] [facility] Start: 06-30-2024 End: 06-30-2024 Professional / ancillary services management 06/30/2024 10:00 AM EST Ancillary Procedure [facility] [address] [place] [id number] [facility] Start: 06-23-2024 End: 06-23-2025 [...] [facility] [place] [id number] Won Rueda, [address] [place] [address] Arrived [facility] Comment on above: Arrived Start: 11-02-2023 End: 11-01-2024 MR Pelvis WO and W contrast IV MRI PELVIS WITH AND WITHOUT CONTRAST Imaging Routine Endometriosis Pelvic pain Expected: 11/02/2023, Expires: 11/01/2024 [facility] Comment on above: Expected: 11/02/2023 , Expires: 11/01/2024 Start: 10-17-2023 Patient referral [facility] Work Phone: Start: 04-20-2023 COVID-19 VACCINE ( season) COVID-19 VACCINE ( season) [facility] Start: 04-20-2023 Influenza vaccination INFLUENZA VACC INE (#1) [facility] Start: 2017 Screening for malign ant neoplasm of cervix CERVICAL CANCER SCREENING DISCUSSION [facility] Start: 11-08-2015 Hepatitis B vaccination HEP B VACCINE (1 of + 3-dose series) [facility] Start: 11-08-2015 Third diphtheria, tetanus and acellular pertussis (DTaP) vaccination TDAP (ADULT) [facility] Start: 2012 Screening for Chlamy david trachomatis CHLAMYDIA SCREEN [facility] Start: 11-08-2011 HIV screening HIV SCREENING DISCUSSION [facility] Start: 11-08-2011 Vaccination for kale n papillomavirus HPV VACCINE ADOL (1 - 3-dose series) [facility] Start: 1996 Hepatitis C screening HEPATITI S C VIRUS SCREENING [facility] Start: 1996 Screening for Chlamy david trachomatis GONORRHEA SCREEN [facility] Start: 1996 Tetanus vaccination TETANUS [facility] Patient referral [facility] Work Phone: Payers Date Payer Category Payer Medicaid [id number] 2024 Medicaid [id number] 2023 [employer] ( and others) [id number] 2023 [employer] ( and others) [facility] [id number] 2023-Present [address] [place] [address] [id number] 2023 [employer] ( and others) [id number] 1996 Unknown [id number] 2.16.840.1.481655.3.579.2.5 1996 Unknown [id number] 2.16.840.1.581035.3.579.2.5 1996 Unknown [id number] 2.16.840.1.498606.3.579.2.5 1996 Unknown [id number] 2.16.840.1.828383.3.579.2.5 1996 Unknown [id number] 2.16.840.1.488572.3.579.2.5 93 1996 Unknown [id number] 2.16.840.1.582291.3.579.2.5 94 1996 Unknown [id number] 2.16.840.1.714338.3.579.2.7 27 1996 Unknown [id number] 2.16.840.1.520325.3.579.2.1 143 1996 Unknown [id number] 2.16.840.1.950771.3.579.2.1 143 1996 Unknown [id number] 2.16.840.1.474591.3.579.2.1 143 1996 Unknown [id number] 2.16.840.1.833698.3.579.2.1 143 1996 Unknown [id number] 2.16.840.1.242740.3.579.2.1 143 1996 Unknown [id number] 2.16.840.1.875406.3.579.2.1 143 1996 Unknown [id number] 2.16.840.1.614778.3.579.2.1 143 1996 Unknown [id number] 2.16.840.1.754592.3.579.2.1 286 1996 Unknown [id number] 2.16.840.1.598640.3.579.2.1 286 1996 Unknown [id number] 2.16.840.1.268925.3.579.2.1 286 1996 Unknown [id number] 2.16.840.1.750606.3.579.2.1 286 1996 Unknown [id number] 2.16.840.1.749725.3.579.2.1 286 1996 Unknown [id number] 2.16.840.1.271063.3.579.2.1 286 1996 Unknown [id number] 2.16.840.1.675946.3.579.2.1 259 1996 Unknown [id number] 2.16.840.1.780585.3.579.2.1 259 1996 Unknown [id number] 2.16.840.1.955274.3.579.2.1 259 1996 Unknown [id number] 2.16.840.1.327413.3.579.2.1 259 1996 Unknown [id number] 2.16.840.1.729635.3.579.2.1 259 1996 Unknown [id number] 2.16.840.1.667338.3.579.2.1 259 1996 Unknown [id number] 2.16.840.1.064745.3.579.2.1 259 1996 Unknown [id number] 2.16.840.1.718855.3.579.2.1 259 1996 Unknown [id number] 2.16.840.1.520518.3.579.2.1 259 1996 Unknown [id number] 2.16.840.1.188419.3.579.2.1 259 1996 Unknown [id number] 2.16.840.1.443130.3.579.2.1 259 1996 Unknown [id number] 2.16.840.1.244293.3.579.2.1 259 1996 Unknown [id number] 2.16.840.1.561148.3.579.2.1 259 1996 Unknown [id number] 2.16.840.1.119635.3.579.2.1 259 1996 Unknown [id number] 2.16.840.1.254955.3.579.2.1 259 1996 Unknown [id number] 2.16.840.1.822260.3.579.2.1 259 1959 [employer] ( and others) [id number] 1959 [employer] ( and others) [id number] [employer] ( and others) [id number] 2.16.840.1.801524.19 Social History Date Type Detail Facility Start: 11-02-2023 Sex Assigned At [facility] Start: 09-30-2017 End: 11-02-2023 Tobacco smoking status NHIS Never smoked tobacco [facility] Start: 11-02-2023 Tobacco use and exposure Smokeless tobacco non-user [facility] Start: 11-02-2023 Alcoholic beverage intake Lifetime non-drinker (finding) [facility] Start: 11-02-2023 History of Social function [facility] Start: 1996 Sex assigned at Not on file [facility] Start: 1996 Sex Assigned At [facility] Start: 12-10-2023 Tobacco smoking status NHIS Unknown if ever smoked [facility] Start: 12-10-2023 Alcohol intake Alcohol Use Details [facility] Start: 09-04-2023 Sexual Orientation Lesbian, lynch or homosexual [facility] Start: 11-03-2023 [facility] Clinical Notes 06-25-2020 to 06-23-2024 Zakiya Traylor [...] ondansetron 4 mg disintegrating tablet - Active Tlzuehnd-Dhr-Ay-FA ( 1 + IRON PO) Daily RT [...] Past Medical History: Diagnosis Date Anxiety Depression ([facility]) Endometriosis OCD (obsessive compulsive disorder) ([facility]) PTSD (post-traumatic stress disorder) ([facility]) HISTORY PAST MEDICAL HISTORY SOCIAL HISTORY Past Medical History: Diagnosis Date Anxiety Depression (CMS/HCC) Endometriosis OCD (obsessive compulsive disorder) ([facility]) PTSD (post-traumatic stress disorder) ([facility]) Social History Tobacco Use Smoking status: Not [...] nursing note reviewed. Exam conducted with a injection operator present. Vitals: There is no height or [...] having IOL on 07/06/24 @ 0000. Called [facility] and patient is on the books for [...] Won Rueda DO documented in this encounter [facility] 06-05-2024 History of Present illness Narrative Reason [...] 81 mg, Daily Blood Glucose Monitoring Suppl (D-PeopleDoc Glucometer) w/Device kit 1 kit, Does not [...] ondansetron 4 mg disintegrating tablet - Active Fssddqqx-Ggj-Sz-FA ( 1 + IRON PO) Daily RT [...] Past Medical History: Diagnosis Date Anxiety Depression ([facility]/H[facility]) Endometriosis OCD (obsessive compulsive disorder) ([facility]) PTSD (post-traumatic stress disorder) ([facility]) HISTORY PAST MEDICAL HISTORY SOCIAL HISTORY Past Medical History: Diagnosis Date Anxiety Depression ([facility]) Endometriosis OCD (obsessive compulsive disorder) ([facility]) PTSD (post-traumatic stress disorder) ([facility]) Social History Tobacco Use Smoking status: Not [...] nursing note reviewed. Exam conducted with a injection operator present. Vitals: There is no height or [...] Won Rueda DO documented in this encounter [facility] 11-19-2023 Evaluation + Plan note Diagnostic Tests PendingT3 Free 11/19/23Thyroid Perox.tpo Ab 11/19/23TgAb+Thyroglobulin,CHING or ARLEN 11/19/23 [facility] 11-02-2023 History of Present illness Narrative GYNECOLOGY CONSULT NOTE REASON FOR VISIT Endometriosis Pelvic pain HISTORY OF PRESENT ILLNESS Ms. Medrano is a 27 y.o. (NSVDx2) who presents for consultation regarding endometriosis, pelvic pain. Records review: Moved back from [place] to [place] (2021) First diagnosed in 2017 Has had [...] She had a women's health doctor [place] who told her she had stage IV endometriosis. She is no longer on the progesterone. Has tried vaginal valium does not help Her 2 previous pregnancies were with a previous partner. She and her are trying for another now. No BA in [place] Partner has not had a SA yet [...] patient today. documented in this encounter [facility] 09-14-2023 Evaluation note Encounter Date [...] educated on the risks and benefits of technician terminal and repeater use. Risk assessment was done. Patient is [...] Pt to call with any worsening symptoms. [facility] Other 12-21-2023 Evaluation note* Encounter Date Diagnosis Assessment Notes Treatment Notes Treatment Clinical Notes Jul, Generalized anxiety disorder (ICD-10 - F41.1) Jul, Endometriosis (ICD-1 0 - N80.9) [facility] Other 12-15-2023 Evaluation note* Encounter Date Diagnosis [...] educated on the risks and benefits of technician terminal and repeater use. Risk assessment was done as well [...] intractable, unspecified migraine type (ICD-10 - G43.909) [facility] Other 11-06-2020 NoteOPERATIVE NOTE OPERATION DATE: 06-25-20 ANESTHETIC:General. INBOUND SALES ADVISOR:None. PREOPERATIVE DIAGNOSIS: 1. Dyspareunia. 2. Right and [...] lap, and needle counts were correct x2. [facility] Signed and Approved by: DR WON RUEDA . 07/30/2020 13:02:00[facility] note* Clinical Note Date No Information [facility] [place] Work Phone: Discharge summary* Clinical Note Date No Information [facility] Work Phone: Evaluation noteNo InformationNocox monett [employer] Other Evaluation note* Diagnosis Endometriosis- Primary Endometriosis, site unspecified Pelvic pain Unspecified symptom associated with female genital organs Myalgia of pelvic floor Dysmenorrhea Dyspareunia in female Nausea and vomiting, unspecified vomiting type Bladder pain Other symptoms involving urinary system Anxiety Anxiety state, unspecified [facility] Onset Date Resolution Status Depression acute Generalized anxiety disorder acute Obsessive compulsive disorder acute PTSD (post-traumatic stress disorder) acute Depression acute Endometriosis acute Generalized anxiety disorder acute Obsessive compulsive disorder acute PTSD (post-traumatic stress disorder) acute TBI (traumatic brain injury) acute [facility] Work Phone: Evaluation note* Type Assessment Date No Information [facility] [place] Work Phone: Evaluation note* Diagnosis 32 weeks [...] Clinical Note Date No Information [facility] [employer] Phone: History general Narrative - Reported* Type Description Date Medical History Anxiety Medical History Stage 4 Endometriosis Medical History Depression with manic episodes Medical History OCD Medical History PTSD Medical History TBI Surgical History Endometriosis surgery x2 Surgical History Gervais teeth Surgical History Injections in cervix [facility] Other History of Present illness Narrative* Encounter Date Complaint History Of Prese nt Illness No Information [facility] [employer] [facility] Phone: Hospital course Narrative No data available for this section [facility] No data available for this section [facility] Date Instruction Additional Infor mation No Information [facility] [employer] [facility] Phone: Progress note No data available for this section [facility] Clinical Note Date No Information [facility] [employer] [facility] Phone: Reason for referral (narrative)* Consultation (Routine) - New Request Specialty Diagnoses / Procedures Referred By Harris gatuam Referred To Contact Psychology Diagnoses Pelvic pain Anxiety Earle Chen MD [address] [place] [address] Oksana Luu, PhD [address] [place] [address] Referral ID Status Reason Start Date Expiration Date V isits Requested Visits Authorized [id number] New Request 11/02/2023 11/26/2024 1 1 * Consultation (Routine) - New Request Specialty Diagnoses / Procedures Referred By Contac t Referred To Contact Integrative Medicine Diagnoses Pelvic pain Nausea and vomiting, unspecified vomiting type Earle Chen MD [address] [place] [address] Referral ID Status Reason Start Date Expiration Date V isits Requested Visits Authorized [id number] New Request 11/02/2023 11/26/2024 1 1 * Consultation (Routine) - New Request Specialty Diagnoses / Procedures [facility] Referred To Contact Gynecology Diagnoses Pelvic pain Myalgia of pelvic floor Bladder pain Earle Chen MD [address] [place] [address] Referral ID Status Reason Start Date Expiration Date V isits Requested Visits Authorized [id number] New Request 11/02/2023 11/26/2024 1 1 * MRI/CAT Scan (Routine) - New Request Specialty Diagnoses / Procedures [facility] Referred To Contact Diagnoses Endometriosis Pelvic pain Procedures MRI PELVIS WITH AND WITHOUT CONTRAST MA MRI, PELVIS, COMBO Earle Chen MD [address] [place] [address] Referral ID Status Reason Start Date Expiration Date V isits Requested Visits Authorized [id number] New Request 11/02/2023 11/26/2024 1 1 [facility] for referral (narrative)* Reason For Referral No Information [facility] [employer] Work Phone: Summary Purpose Family History No Family History Records Found Relationship Condition Age at Onset Recorded Date/T mike father Prediabetes Unknown grandparent Diabetes mellitus Unknown Not Specified Family history of other condition Unknow n Family Member Type Diagnosis Age At Onset No Information Advance Directives No Advanced Directives Records Found Advance Directive Response Recorded Date/ Time Advance Directives No February 27th , 2024 10:30am Directive Yes / No Effective Date File Name No Information Reason for Referral Reason *08/06 CALL taryn walton Diagnosis 1 Endometriosis (N80.9 ) Referral Organization [facility] [employer] [facility] Referring Provider First Name Lucila Referring Provider Last Name Rohrbacher Referring Provider Specialty Nurse Pract itioner Referred Organization [facility] Referred Provider Jena Suresh Referred Address ,[place], [place],[address] Referred Provider Specialty OB - Gynecol ogy [...] intractable, unspecified migraine type (G43.909) Referral Organization [facility] [employer] [facility] Referring Provider First Name Lucila Referring Provider Last Name Rohrbacher Referring Provider Specialty Nurse Pract itioner Referred Organization [facility] Referred Provider Herbie Arroyo Referred Address [address] [place], [place],[address] Referred Provider Specialty Neurology Referral Priority Routine [...] Diagnosis 1 Endometriosis (N80.9 ) Referral Organization [facility] [employer] [facility] Referring Provider First Name Lucila Referring Provider Last Name Rohrbacher Referring Provider Specialty Nurse Pract itioner Referred Organization [facility] Referred Address [address] [place], [place],[address] Referred Provider Specialty Endocrinolog y Referral Priority [...] and content) DATE CREATED AUTHOR 12/15/2020 [facility] DATE CREATED AUTHOR AUTHOR'S ORGANIZ ATION 11/03/2023 [facility] DATE CREATED AUTHOR AUTHOR'S ORGANIZ ATION 11/20/2023 [facility] DATE CREATED AUTHOR AUTHOR'S ORGANIZ ATION 12/15/2023 [facility] DATE CREATED AUTHOR AUTHOR'S ORGANIZ ATION 04/01/2024 [facility] DATE CREATED AUTHOR AUTHOR'S ORGANIZ ATION 07/01/[address] [facility] Special[facility] EPIC REASON FOR VISIT (unrecogniz ed section and content) Reason Comments Consult Pt diagnosis with En dometriosis in 2018. Patient desire . Specialty Diagnoses / Procedures Referred By Harris t Referred To Contact CEMENT FINISHING SUPERVISOR Diagnoses Endometriosis Lucila Arnett, KHADRA [address] [place] [address] [facility] [address] [place] [address] Referral ID Status Reason Start Date Expiration Date V isits Requested Visits Authorized [id number] New Request 10/23/2023 11/16/2024 1 1 Reason Comments Routine Visit Care Teams (unrecognized sec tion and content) Team Status: Active Member Role Status Dates Lucila Arnett APRN ASSEMBLER KNIFE-Jazmine Primary Care Provider Active Team Status: Inactive Member Role Status Dates REAL Juarez Attending Provider Act vinicius Start: September 14, 2023 End: September 14, 2023 Team Status: Inactive Member Role Status Dates REAL Juarez Primary Care Provider, Attending Provider Active Start: October 17, 2023 End: October 17, 2023 Team Status: Inactive Member Role Status Dates Lucila Arnett APRN ASSEMBLER KNIFE-C Primary Care Provider, Attending Provider Active Start: November 14, 2023 End: November 14, 2023 Name Effective Dates (start - stop) Status Members No Information Systems Integration Analyst Relationship Specialty Start Date End Date Lucila Arnett NP [address] [facility] [address] PCP - General Family Medicine 11/11/23 Systems Integration Analyst Relationship Specialty [place] [address] [place] [address] [place] [address] PCP - General Family Medicine 11/11/23 Systems Integration Analyst Relationship Specialty Start Date End Date Lucila Arnett NP [address] [facility] [place] [address] PCP - General Family Medicine 11/11/23 Systems Integration Analyst Relationship Specialty Start Date End Date Lucila Arnett NP [address] [facility] [place] [address] PCP - General Family Medicine 11/11/23 Goals [...] BE BASED ON THE PRIMARY CLINICAL RECORDS. [employer] [facility]. provides no warranty or guarantee of the accuracy or completeness of information in this document.
--- NOTE | 2024-07-03 10:49 | US_ITS ---
[place] [id number] Patient Name: COLTON VERMA MRN: [id number] date: 1995 Sex: F Assigned Patient Location: [facility] Current Patient Location: Accession/Order Number: [id number] Exam Date: 07/03/2024 10:55 Report Date: 07/04/2024 04:14 At the request of: WON LESTER Procedure: US OB BPP w non-stress EXAMINATION: US OB BPP w non-stress HISTORY:H/O LABOR COMPARISON: Ultrasound OB biophysical 06/27/2024 TECHNIQUE: Ultrasound biophysical profile was performed in the radiology department. BREATHING MOVEMENTS: 2 GROSS BODY MOVEMENTS: 2 TONE: 2 QUALITATIVE AMNIOTIC FLUID VOLUME: 2 PRESENTATION: CEPHALIC HEART RATE: 150.84 bpm AMNIOTIC FLUID VOLUME: 16.04 cm GESTATIONAL AGE: 36 weeks 5 days US/US OB BPP w non-stress IMPRESSION: Total biophysical profile score: 8 Electronically authenticated by: ISIAH ROJSA Date: 07/04/2024 04:14
[2024-07-03 11:22] VITALS: BP 110/64; PULSE 76
== END 2024-07-03 12:30 | disposition home or self-care (01) ==
LOC: US 08:18 → FBC 10:45
PROVIDERS: PCP Nurse Practitioner Family; Visit Provider Obstetrics & Gynecology
DX: O26.893 Other specified pregnancy related conditions, third trimester (principal); Z3A.36 36 weeks gestation of pregnancy
CPT/HCPCS: 76818

== ENCOUNTER 2024-07-05 23:38 | Inpatient (IN) | payer OTHER, SELFPAY ==
--- OUTSIDE RECORDS SUMMARY | 2024-07-05 23:42 | XMS_ITS | CCD ---
Author Organization [facility] Inform ion [facility] Care Team Providers Care Account Manager B2B Name Role Phone MARYBETH, DR UPTON Admitting [...] DR UPTON Attending Unavailable Lucila Arnett Unavailable [phone] Unavailable Primary Care Provider Unavailabl e [...] Unavailable MARYBETH, WON R Referring Unavailable Ellyrbacher NUTRITIONAL ASSISTANT, Lucila Aponte Primary Care Provider MARYBETH, WON [...] (1 source) traMADol Drug Allergy 0 [facility] Repository (12 sources) traMADol; Translations: [TRAMADOL] Drug Allergy 4 Unknown, Hives [facility] (12 sources) Lavender Oil; Translations: [LAVENDER OIL] Drug allergy 4 Unknown [facility] Repository (1 source) lavender (Lavandula angustifolia) Allergy to substance 4 Unknown Reaction [facility] (7 sources) GALCANEZUMAB-GNL M; Translations: [GALCANEZUMAB-GN [...] oral solution (1 source) alpha-Adrenergic Agonist, Uncompetitive U-qvcbsi-Z-aspartate Receptor Antagonist, Sigma-1 Agonist Start : 09-30 [...] Daily 30 capsule 6 05/05/2024 05/05/2025 Active Rxoxksxq-Oid-Sn-FA ( 1 + IRON PO) (6 sources) Jkdcfwlj-Iqo-Qr-FA ( 1 + IRON PO) Take by [...] q6hr, # 10 tab(s), Refills(s) 0, Pharmacy: [facility] 1984 Start Date: 09/21/18 Status: Ordered zolpidem [...] UA Negative Negative - 4(70) +++ mg/dL [facility] Blood, UA Positive Negative - 50 Jt/mcL [facility] Comment on above: trace Clarity, UA Clear [facility] Color, UA Yellow [facility] Glucose, UA Negative Negative - 2000(110) ++++ mg/dL [facility] Interpretation and review of laboratory results Abnormal [facility] Ketones, UA Negative Negative - 160(16) ++++ mg/dL [facility] Leukocytes, UA Negative Negative - 500+++ [place]/mcL [facility] Nitrite, UA Negative Negative - Positive [facility] pH, UA 7 5 - 9 [facility] Protein, UA Negative Negative - 2000(20) ++++ mg/dL [facility] Spec Grav, UA 1.02 1 - 1.03 [facility] Urobilinogen, UA 2.0 0.2 - 12 mg/dL [facility] Urinalysis macro (dipstick) panel (U)on 06-05-2024 Bilirubin, UA Negative Negative - 4(70) +++ mg/dL [facility] Blood, UA Positive Negative - 50 Jt/mcL [facility] Comment on above: trace-intact Clarity, UA Clear [facility] Color, UA Yellow [facility] Glucose, UA Negative Negative - 1999(110) ++++ mg/dL [facility] Interpretation and review of laboratory results Abnormal [facility] Ketones, UA Negative Negative - 160(16) ++++ mg/dL [facility] Leukocytes, UA Negative Negative - 500+++ [place]/mcL [facility] Nitrite, UA Negative Negative - Positive [facility] pH, UA 7 5 - 9 [facility] Protein, UA Negative Negative - 2000(20) ++++ mg/dL [facility] Spec Grav, UA 1.02 1 - 1.03 [facility] Urobilinogen, UA 1.0 0.2 - 12 mg/dL [facility] HCG.beta subunit Qnon 2023 hCG Quant [id number] mIU/mL Normal [facility] Comment on above: [...] By: #### 2 1198-7 #### [facility] [address] [place] [address] HCG.beta subunit Qnon 2023 hCG Quant [id number] mIU/mL Normal [facility] Comment on above: Order Comment: [...] By: #### 2 1198-7 #### [facility] [address] [place] [address] HCG.beta subunit Qnon 2023 hCG Quant [id number] mIU/mL Normal [facility] Comment on above: Order Comment: [...] By: #### 2 1198-7 #### [facility] [address] [place] [address] HCG.beta subunit Qnon 2023 hCG Quant 28311 mIU/mL Normal [facility] Comment on above: Order Comment: [...] By: #### 2 1198-7 #### [facility] [address] [place] [address] HCG.beta subunit Qnon 2023 hCG Quant 2709 mIU/mL Normal [facility] Comment on above: Order Comment: [...] By: #### 2 1198-7 #### [facility] [address] [place] [address] HCG.beta subunit Qnon 2023 hCG Quant 776 mIU/mL Normal [facility] Comment on above: Order Comment: [...] By: #### 2 1198-7 #### [facility] [address] [place] [address] HCG.beta subunit Qnon 2023 hCG Quant 250 mIU/mL Normal [facility] Comment on above: Order Comment: [...] By: #### 2 1198-7 #### [facility] [address] [place] [address] .Thyroglobulin by IMAon 04 Thyroglobulin [Mass/Vol] 5.0 ng/mL Invalid Interpretation Code 1.5-38.5 [facility] Comment on above: Result [...] quantitation is 0.1 ng/mL Thyroglobulin measured by Broadcast[employer] Immunometric Assay Performed at: [employer] [id number] PhD Johanny Nieto Performed By: #### 2 [id number], [id number], [id number], 7421479, [id number], [id number], [id number] #### [facility] [address] [place] [address] T3 Freeon 11-20-2023 Free T3 [Mass/Vol] 3.2 pg/mL Invalid Interpretation Code 2.0-4.4 [facility] Comment on above: Result Comment: Perf ormed at: [address] [id number] PhD Johanny Nieto Performed By: #### 2 849317, [id number], [id number], 8174969, [id number], [id number], [id number] #### [facility] [address] [place] [address] TgAb+Thyroglobulinon 024 Thyroglobulin Ab Qn [IU]/mL Invalid Interpretation Code 0.0-0.9 [facility] Comment on above: Result Comment: Thyr oglobulin Antibody measured by John Vish Methodology It should be noted that the presence of thyroglobulin antibodies may not be pathogenic nor diagnostic, especially at very low levels. The assay auto brake mechanic has found that four percent of individuals without evidence of thyroid disease or autoimmunity will have positive TgAb levels up to 4 IU/mL. Performed at: [facility] [address] [place], [place] [id number] PhD Johanny Nieto Performed By: #### 2 775099, [id number], [id number], 1202390, [id number], [id number], [id number] #### [facility] [address] [place] [address] Thyroid Perox.tpo Abon 11-19 TPO Ab Qn [IU]/mL Invalid Interpretation Code 0-34 [facility] Comment on above: Result Comment: Perf ormed at: [facility] [address] [place], [place] [id number] PhD Johanny Nieto Performed By: #### 2 998017, [id number], [id number], 0349397, [id number], [id number], [id number] #### [facility] [address] [place] [address] BhCG Quanton 11-19-2023 HCG.beta subunit Qn 86 m[IU]/mL High 1-3 [facility] Comment on above: Result Comment: 'F N ON < 1 - 3' ' 0.2 - 1 WEEK = 5 TO 50' ' 1 - 2 WEEKS = 50 - 500' ' 2 - 3 WEEKS = 100 - 5000' ' 3 - 4 WEEKS = 500 - 72839' ' 4 - 5 WEEKS = 1000 - 47473' ' 5 - 6 WEEKS = 51853 - 508630' ' 6 - 8 WEEKS = 63022 - 825616' ' 8 - 12 WEEKS = 04011 - 349284' Performed By: #### 2 [id number] #### [facility] [address] [place] [address] CHEMISTRYOrdered By: SYSTEM SYSTEM on 11-19-2023 HCG.beta [...] 3 - 4 WEEKS = 500 - 53502' ' 4 - 5 WEEKS = 1000 - 61256' ' 5 - 6 WEEKS = 96224 - 011134' ' 6 - 8 WEEKS = 80315 - 117376' ' 8 - 12 WEEKS = 31944 - 740169' Iron [Mass/Vol] 161 ug/dL High 35 - 153 mcg/dL [facility] Iron binding capacity [Mass/Vol] 316 ug/dL Normal 250 - 400 mcg/dL [facility] Transferrin [Mass/Vol] 226 mg/dL Normal 200 - 370 mg/dL [facility] TSH Qn 1.53 m[IU]/L Normal 0.34 - 5.60 mcIU/mL Remisol Chem Consent for Treatmenton Consent for Treatment [id number] #1.00TIFF Normal [facility] Ironon 11-19-2023 Iron [Mass/Vol] 161 microgram/dL High 35-153 [facility] Comment on above: Performed By: #### 2 153661, 16872504, 99614298, 1482310, 410351530, [id number], [id number] #### [facility] [address] [place] [address] Physician Orderon 11-19-2023 Physician Order [id number] #1.00TIFF Normal [facility] TIBC Calculatedon 11-19-2023 Iron binding capacity [Mass/Vol] 316 microgram/dL Normal 250-400 [facility] Comment on above: Performed By: #### 2 055886, [id number], 51567488, 1208191, [id number], [id number], [id number] #### [facility] [address] [place] [address] Transferrin [Mass/Vol] 226 mg/dL Normal 200-370 [facility] Comment on above: Performed By: #### 2 816541, 82869608, 25637490, 9691897, 236833151, [id number], [id number] #### [facility] [address] [place] [address] TSH With T4fr Reflexon 11-18 TSH Qn 1.53 m[IU]/L Normal 0.34-5.60 [facility] Comment on above: Performed By: #### 2 630922, 62083771, 22739757, 7594509, 225687265, 973504920, 16302499 #### [facility] [address] [place] [address] TSHon 07-12-2020 TSH 0.756 uIU/mL Normal 0.470-4.680 [facility] Comment on above: Performed By: #### T SH #### [facility] [address] [place] [address] Jayne Noris TSH RANGE SEE BELOW Normal [facility] Comment on above: Result Comment: <0.3 4 UIU/ml HYPERTHYROID 0.34-5.60 UIU/ml EUTHYROID >5.60 UIU/ml HYPOTHYROID Performed By: #### T SH #### [facility] [address] [place], [place] [id number] Jayne Noris CBC AUTO DIFFon 06-25-2020 BASO # 0.1 103/ul Normal 0.0-0.1 [facility] Comment on above: Performed By: #### C BC #### [facility] [address] [place], [place] [address] Jayne Noris Basophils/100 WBC (Bld) 1.2 % Normal 0.2-2.0 [facility] Comment on above: Performed By: #### C BC #### [facility] [address] [place], [place] [address] Jayne Noris EO # 0.2 103/ul Normal 0.0-0.7 [facility] Comment on above: Performed By: #### C BC #### [facility] [address] [place], [place] [address] Jayne Noris Eosinophils/100 WBC (Bld) 2.6 % Normal 0.9-7.0 [facility] Comment on above: Performed By: #### C BC #### [facility] [address] [place] [address] Jayne Hamm Erythrocyte distribution width (RBC) [Ratio] 12.0 % Normal 11.0-15.0 [facility] Comment on above: Performed By: #### C BC #### [facility] [address] [place] [address] Jayne Hamm Hematocrit (Bld) [Volume fraction] 40.7 % Normal 36.0-48.0 [facility] Comment on above: Performed By: #### C BC #### [facility] [address] [place] [address] Jayne Hamm Hemoglobin (Bld) [Mass/Vol] 13.6 g/dL Normal 12.0-16.0 [facility] Comment on above: Performed By: #### C BC #### [facility] [address] [place] [address] Jaynejeremías Hamm IG # 0.01 10e3/ul Normal 0.00-0.03 [facility] Comment on above: Performed By: #### C BC #### [facility] [address] [place] [address] Jayne Hamm IG % 0.2 % Normal 0.0-0.5 [facility] Comment on above: Performed By: #### C BC #### [facility] [address] [place] [address] Jayne Noris LYMPH # 1.9 103/ul Normal 1.2-3.8 [facility] Comment on above: Performed By: #### C BC #### [facility] [address] [place] [address] Jayne Hamm Lymphocytes/100 WBC (Bld) 32.5 % Normal 20.5-60.0 [facility] Comment on above: Performed By: #### C BC #### [facility] [address] [place] [address] Jayne Hamm MANUAL DIFF REQ NO [facility] Comment on above: Performed By: #### C BC #### [facility] [address] [id number] Jaynejeremías Hamm MCH (RBC) [Entitic mass] 31.3 pg Normal 26.7-34.0 [facility] Comment on above: Performed By: #### C BC #### [facility] [address] [place], [place] [id number] Jayne Hamm MCHC (RBC) [Mass/Vol] 33.4 g/dL Normal 29.9-35.2 [facility] Comment on above: Performed By: #### C BC #### [facility] [address] [place], [place] [address] Jaynejeremías Hamm MCV (RBC) [Entitic vol] 93.6 fL Normal 81.0-99.0 [facility] Comment on above: Performed By: #### C BC #### [facility] [address] [place] [address] Jayne Cruzen MONO # 0.6 103/ul Normal 0.3-0.8 [facility] Comment on above: Performed By: #### C BC #### [facility] [address] [place], [place] [address] Jayne Hamm Monocytes/100 WBC (Bld) 10.4 % Normal 1.7-12.0 [facility] Comment on above: Performed By: #### C BC #### [facility] [address] [place] [address] Jaynejeremías Cruzen NEUT # 3.1 103/ul Normal 1.4-6.5 [facility] Comment on above: Performed By: #### C BC #### [facility] [address] [place], [place] [address] Jayne Noris Neutrophils/100 WBC (Bld) 53.1 % Normal 43.0-75.0 [facility] Comment on above: Performed By: #### C BC #### [facility] [address] [place], [place] [address] Jayne Noris Platelet mean volume (Bld) [Entitic vol] 8.9 fL Critically low 9.5-13.5 [facility] Comment on above: Performed By: #### C BC #### [facility] [address] [id number] Jayne Hamm PLT 265 103/ul Normal 150-450 [facility] Comment on above: Performed By: #### C BC #### [facility] [address] [place] [address] Jayne Hamm RBC 4.35 106/ul Normal 4.20-5.40 [facility] Comment on above: Performed By: #### C BC #### [facility] [address] [address] Jayne Hamm WBC 5.8 103/ul Normal 4.0-11.0 [facility] Comment on above: Performed By: #### C BC #### [facility] [address] [place] [address] Jayne Hamm PREG QUANT HCGon 06-25-2020 HCG QUANT 1.00 mIU/mL Normal [facility] Comment on above: Performed By: #### P REGQNT #### [facility] [address] [place] [address] Jayne Hamm HCG RANGE SEE BELOW Normal [facility] Comment on above: Result Comment: 5-50 0-1 WEEK 40-300 1-2 WEEKS 100-1,000 2-3 WEEKS 500-6,000 3-4 WEEKS 5,000-200,000 1-2 MONTHS 10,000-100,000 2-3 MONTHS 3,000-50,000 2ND TRIMESTER 1,000-50,000 3RD TRIMESTER Performed By: #### P REGQNT #### [facility] [address] [place] [address] Jayne Hamm PAP ACOG PANEL 2: 21 to 29on 05-06-2020 . . Normal [facility] Comment on above: Performed By: #### 4 [id number] #### [facility] [address] [place], [place] [address] Jaynejeremías Hamm Age Gdln ACOG Testing - Normal [facility] Comment on above: Performed By: #### 4 [id number] #### [facility] [address] [place], [place] [address] Jayne Hamm DIAGNOSIS: Comment Normal [facility] Comment on above: Result Comment: NEGA TIVE FOR INTRAEPITHELIAL LESION OR MALIGNANCY. Performed By: #### 4 [id number] #### [facility] [address] [place] [address] Jayne Hamm Methodology: Comment Normal [facility] Comment on above: Result Comment: This liquid based SurePath(R) pap test was screened with the assistance of an image guided system. Performed By: #### 4 [id number] #### [facility] [address] [place] [address] Jayne Hamm Note: Comment Normal [facility] Comment on above: Result Comment: The Pap smear is a screening test designed to aid in the detection of premalignant and malignant conditions of the uterine cervix. It is not a diagnostic procedure and should not be used as the sole means of detecting cervical cancer. Both false-positive and false-negative reports do occur. . Performed By: #### 4 [id number] #### [facility] [address] [place] [address] Jayne Hamm Performed by: Comment Normal [facility] Comment on above: Result Comment: Suman Rdz, [facility] (ASCP) Performed By: #### 4 [id number] #### [facility] [address] [place] [address] Jayne Hamm Reflex Criteria: Comment Normal [facility] Comment on above: Result Comment: The HPV DNA reflex criteria were not met with this specimen result therefore, no HPV testing was performed. . Performed By: #### 4 [id number] #### [facility] [address] [place] [address] Jayne Hamm Specimen adequacy: Comment Normal [facility] Comment on above: Result Comment: Sati sfactory for evaluation. Endocervical and/or squamous metaplastic cells (endocervical component) are present. Performed By: #### 4 [id number] #### [facility] [address] [place] [address] Jayne Hamm US PELVIS AND TRANSVAGon US [...] by: DARLINE ESPITIA Date: 2020-04-30 14:54 Normal [facility] Vital Signs Date Time Vital Sign Value Performing Clinician Facility 06-23-2024 09:56-0500 Body weight 80.74 kg Won Marybeth DO Work Phone: [facility] 06-23-2024 09:56-0500 Diastolic blood pressure 70 mm[Hg] Won Marybeth DO Work Phone: [facility] 06-23-2024 09:56-0500 Systolic blood pressure 112 mm[Hg] Won Marybeth DO Work Phone: [facility] 06-05-2024 10:48-0400 Body weight 80.34 kg Won Marybeth DO Work Phone: [facility] 06-05-2024 10:48-0400 Diastolic blood pressure 64 mm[Hg] Won Marybeth DO Work Phone: [facility] 06-05-2024 10:48-0400 Systolic blood pressure 100 mm[Hg] Won Marybeth DO Work Phone: [facility] 12-10-2023 09:18-0400 Diastolic blood pressure 84 mm[Hg] Hill Jacobsen Work Phone: [facility] 12-10-2023 09:18-0400 Heart rate 101 /min Hill Jacobsen Work Phone: [facility] 12-10-2023 09:18-0400 Respiratory rate 12 /min Hill Ann-Marie Work Phone: [facility] 12-10-2023 09:18-0400 Systolic blood pressure 132 mm[Hg] Hill Jacobsen Work Phone: [facility] 11-02-2023 14:27-0400 Body height 180.3 cm Earle Chen MD Work Phone: [facility] 11-02-2023 14:27-0400 Body mass index (BMI) [Ratio] 20.04 kg/m2 Earle Chen MD Work Phone: [facility] 11-02-2023 14:27-0400 Body weight 65.18 kg Earle Chen MD Work Phone: [facility] 11-02-2023 14:27-0400 Diastolic blood pressure 80 mm[Hg] Earle Chen MD Work Phone: [facility] 11-02-2023 14:27-0400 Systolic blood pressure 110 mm[Hg] Earle Chen MD Work Phone: [facility] 09-14-2023 11:30-0500 Body height 180.34 cm Lucila Arnett Other [facility] 09-14-2023 11:30-0500 Body mass index (BMI) [Ratio] 20.92 kg/m2 Lucila Arnett Other [facility] [employer] Other 09-14-2023 11:30-0500 Body weight 68.04 kg Lucila Arnett Other [facility] [employer] Other 09-14-2023 11:30-0500 Body weight 68.03 kg [facility] 09-14-2023 11:30-0500 Diastolic blood pressure 68 mm[Hg] Lucila Arnett Other [facility] 09-14-2023 11:30-0500 Respiratory rate 16 /min Lucila Melquiades Other [facility] [employer] Other 09-14-2023 11:30-0500 SaO2% (BldA) [Mass fraction] 100 % Lucila Arnett Other [facility] Other 09-14-2023 11:30-0500 Systolic blood pressure 110 mm[Hg] Lucila Melquiades Other [facility] 08-03-2023 10:00-0500 Body height 180.34 cm Lucila Melquiades Other [employer] Other 08-03-2023 10:00-0500 Body mass index (BMI) [Ratio] 20.78 kg/m2 Lucilaleah Arnett Other [facility] Other 08-03-2023 10:00-0500 Body weight 67.59 kg Lucila Melquiades Other [facility] Other 08-03-2023 10:00-0500 Diastolic blood pressure 66 mm[Hg] Lucila Arnett Other [facility] Other 08-03-2023 10:00-0500 SaO2% (BldA) [Mass fraction] 98 % Lucila Arnett Other [facility] [facility] Other 08-03-2023 10:00-0500 Systolic blood pressure 100 mm[Hg] Lucila Arnett Other [employer] Other Encounters Encounter Date Encounter Type Care [...] Start: 03-25-2024 End: 03-25-2024 ambulatory WON R [facility] Start: 03-13-2024 End: 03-13-2024 ambulatory PEDRO TABOR Not Available Start: 02-28-2024 End: 02-28-2024 ambulatory WON MARYBETH Not Available Start: 02-25-2024 End: 02-25-2024 ambulatory WON R [facility] Start: 02-13-2024 End: 02-13-2024 ambulatory WON MARYBETH Not Available Start: 01-30-2024 End: 01-30-2024 ambulatory WON MARYBETH Not Available Start: 01-21-2024 End: 01-21-2024 ambulatory WON R [facility] Start: 01-17-2024 End: 01-17-2024 ambulatory WON MARYBETH Not Available Start: 01-03-2024 End: 01-03-2024 ambulatory WON MARYBETH Not Available Start: 12-26-2023 End: 12-26-2023 ambulatory WON MARYBETH Not Available Start: 12-13-2023 End: 12-13-2023 ambulatory WON MARYBETH Not Available Start: 12-10-2023 End: 12-11-2023 ambulatory HAKEEM BEBA [facility] Start: 12-10-2023 End: 12-10-2023 Encounter identifier Hill Jacobsen Work Phone: [facility] Start: 12-06-2023 End: 12-07-2023 ambulatory HAKEEM YODER [facility] Start: 12-03-2023 End: 12-04-2023 ambulatory HAKEEM YODER [facility] Start: 11-29-2023 End: 11-30-2023 ambulatory HAKEEM YODER [facility] Start: 11-26-2023 End: 11-27-2023 ambulatory HAKEEM YODER [facility] Start: 11-23-2023 End: 11-24-2023 ambulatory HAKEEM YODER [facility] Start: 11-21-2023 End: 11-22-2023 ambulatory HAKEEM YODER [facility] Start: 11-19-2023 End: 11-20-2023 ambulatory [employer] LUCILA ARNETT Facility:[facility] Start: 11-19-2023 End: 11-19-2023 Patient encounter procedure LUCILA ARNETT [facility] Start: 11-14-2023 End: 11-14-2023 ambulatory [facility] Work Phone: Start: 11-14-2023 End: 11-14-2023 Patient encounter procedure [facility] Work Phone: Start: 11-02-2023 ambulatory EARLE CHEN Facility:[facility] Start: 11-02-2023 End: 11-02-2023 Office outpatient new 60 minutes Earle Chen MD Work Phone: [facility] Comment on above: Endometriosis (Prima ry Dx); Pelvic pain; Myalgia of pelvic floor; Dysmenorrhea; Dyspareunia in female; Nausea and vomiting, unspecified vomiting type; Bladder pain; Anxiety Start: 10-17-2023 End: 10-17-2023 Patient encounter procedure [facility] Work Phone: Start: 09-14-2023 End: 09-14-2023 ambulatory Lucila Arnett Other [employer] Other Start: 09-14-2023 Office outpatient vi sit 25 minutes Lucila Arnett [facility] Start: 09-14-2023 End: 09-14-2023 Patient encounter procedure [facility] Start: 08-09-2023 End: 08-09-2023 ambulatory Lucila Arnett Other [employer] Other Start: 08-09-2023 Telephone encounter Lucila Sanabriarbac her [facility] Start: 08-03-2023 End: 08-03-2023 ambulatory Lucila Melquiades Other [facility] [employer] Other Start: 08-03-2023 Office outpatient ne w 30 minutes Lucila Melquiades [facility] Start: 08-03-2023 Telephone encounter Lucila Sanabriamechelle her [facility] Start: 07-12-2020 End: 07-13-[address] WON [...] Routine [facility] [address] [place] [id number] Won Rueda, DO [address] [place] [address] [facility] Start: 06-30-2024 End: 06-30-2024 Professional / ancillary services management 06/30/2024 10:00 AM EST Ancillary Procedure [facility] [address] [place] [id number] [facility] Start: 06-23-2024 End: 06-23-2025 [...] AM EDT Routine [facility] [address] [place] [id number] Won Rueda, [address] [place] [address] Arrived [facility] Comment on above: Arrived Start: 11-02-2023 End: 11-01-2024 MR Pelvis WO and W contrast IV MRI PELVIS WITH AND WITHOUT CONTRAST Imaging Routine Endometriosis Pelvic pain Expected: 11/02/2023, Expires: 11/01/2024 [facility] Comment on above: Expected: 11/02/2023 , Expires: 11/01/2024 Start: 10-17-2023 Patient referral [facility] Work Phone: Start: 04-20-2023 COVID-19 VACCINE ( season) COVID-19 VACCINE ( season) [facility] Start: 04-20-2023 Influenza vaccination INFLUENZA VACC INE (#1) [facility] Start: 2017 Screening for malign ant neoplasm of cervix CERVICAL CANCER SCREENING DISCUSSION [facility] Start: 11-08-2015 Hepatitis B vaccination HEP B VACCINE (1 of + 3-dose series) [facility] Start: 11-08-2015 Third diphtheria, tetanus and acellular pertussis (DTaP) vaccination TDAP (ADULT) [facility] Start: 2012 Screening for Chlamy david trachomatis CHLAMYDIA SCREEN [facility] Start: 11-08-2011 HIV screening HIV SCREENING DISCUSSION [facility] Start: 11-08-2011 Vaccination for kale n papillomavirus HPV VACCINE ADOL (1 - 3-dose series) [facility] Start: 1996 Hepatitis C screening HEPATITI S C VIRUS SCREENING [facility] Start: 1996 Screening for Chlamy david trachomatis GONORRHEA SCREEN [facility] Start: 1996 Tetanus vaccination TETANUS [facility] Patient referral [facility] Work Phone: Payers Date Payer Category Payer Medicaid [id number] 2024 Medicaid [id number] 2023 [employer] ( and others) [id number] 2023 [employer] ( and others) [facility] [id number] 2023-Present [address] [place] [address] [id number] 2023 [employer] ( and others) [id number] 1996 Unknown [id number] 2.16.840.1.492795.3.579.2.5 1996 Unknown [id number] 2.16.840.1.056304.3.579.2.5 1996 Unknown [id number] 2.16.840.1.477019.3.579.2.5 1996 Unknown [id number] 2.16.840.1.054668.3.579.2.5 1996 Unknown [id number] 2.16.840.1.122189.3.579.2.5 93 1996 Unknown [id number] 2.16.840.1.628710.3.579.2.5 94 1996 Unknown [id number] 2.16.840.1.604345.3.579.2.7 27 1996 Unknown [id number] 2.16.840.1.857946.3.579.2.1 143 1996 Unknown [id number] 2.16.840.1.058797.3.579.2.1 143 1996 Unknown [id number] 2.16.840.1.939328.3.579.2.1 143 1996 Unknown [id number] 2.16.840.1.379043.3.579.2.1 143 1996 Unknown [id number] 2.16.840.1.110540.3.579.2.1 143 1996 Unknown [id number] 2.16.840.1.705906.3.579.2.1 143 1996 Unknown [id number] 2.16.840.1.320913.3.579.2.1 143 1996 Unknown [id number] 2.16.840.1.570301.3.579.2.1 286 1996 Unknown [id number] 2.16.840.1.097947.3.579.2.1 286 1996 Unknown [id number] 2.16.840.1.618192.3.579.2.1 286 1996 Unknown [id number] 2.16.840.1.320004.3.579.2.1 286 1996 Unknown [id number] 2.16.840.1.382217.3.579.2.1 286 1996 Unknown [id number] 2.16.840.1.264399.3.579.2.1 286 1996 Unknown [id number] 2.16.840.1.607418.3.579.2.1 259 1996 Unknown [id number] 2.16.840.1.861973.3.579.2.1 259 1996 Unknown [id number] 2.16.840.1.782575.3.579.2.1 259 1996 Unknown [id number] 2.16.840.1.931874.3.579.2.1 259 1996 Unknown [id number] 2.16.840.1.850909.3.579.2.1 259 1996 Unknown [id number] 2.16.840.1.212674.3.579.2.1 259 1996 Unknown [id number] 2.16.840.1.645828.3.579.2.1 259 1996 Unknown [id number] 2.16.840.1.787925.3.579.2.1 259 1996 Unknown [id number] 2.16.840.1.881081.3.579.2.1 259 1996 Unknown [id number] 2.16.840.1.952926.3.579.2.1 259 1996 Unknown [id number] 2.16.840.1.053067.3.579.2.1 259 1996 Unknown [id number] 2.16.840.1.616479.3.579.2.1 259 1996 Unknown [id number] 2.16.840.1.259290.3.579.2.1 259 1996 Unknown [id number] 2.16.840.1.793313.3.579.2.1 259 1996 Unknown [id number] 2.16.840.1.234586.3.579.2.1 259 1996 Unknown [id number] 2.16.840.1.571298.3.579.2.1 259 1959 [employer] ( [employer] others) [id number] 1959 [employer] ( and others) [id number] [employer] ( and others) [id number] 2.16.840.1.059886.19 Social History Date Type Detail Facility Start: 11-02-2023 Sex Assigned At [facility] Start: 09-30-2017 End: 11-02-2023 Tobacco smoking status NHIS Never smoked tobacco [facility] Start: 11-02-2023 Tobacco use and exposure Smokeless tobacco non-user [facility] Start: 11-02-2023 Alcoholic beverage intake Lifetime non-drinker (finding) [facility] Start: 11-02-2023 History of Social function [facility] Start: 1996 Sex assigned at Not on file [facility] Start: 1996 Sex Assigned At [facility] Start: 12-10-2023 Tobacco smoking status NHIS Unknown if ever smoked [facility] Start: 12-10-2023 Alcohol intake Alcohol Use Details [facility] Start: 09-04-2023 Sexual Orientation Lesbian, lynch or homosexual [facility] Start: 11-03-2023 [facility] Clinical Notes 06-25-2020 [...] ondansetron 4 mg disintegrating tablet - Active Esyeuwqa-Lez-Kb-FA ( 1 + IRON PO) Daily RT [...] Anxiety Depression ([facility]) Endometriosis OCD (obsessive compulsive disorder) ([facility]) PTSD (post-traumatic stress disorder) ([facility]) HISTORY PAST MEDICAL HISTORY SOCIAL HISTORY Past Medical History: Diagnosis Date Anxiety Depression (CMS/HCC) Endometriosis OCD (obsessive compulsive disorder) ([facility]) PTSD (post-traumatic stress disorder) ([facility]) Social History Tobacco Use Smoking status: [...] nursing note reviewed. Exam conducted with a gaming manager present. Vitals: There is no height or [...] having IOL on 07/06/24 @ 0000. Called [facility] and patient is on the books [...] Won Rueda DO documented in this encounter [facility] 06-05-2024 History of Present illness Narrative Reason [...] 81 mg, Daily Blood Glucose Monitoring Suppl (D-[employer] Glucometer) w/Device kit 1 kit, Does not [...] ondansetron 4 mg disintegrating tablet - Active Onfkvwln-Eap-Yj-FA ( 1 + IRON PO) Daily RT [...] Anxiety Depression ([facility]/HCC) Endometriosis OCD (obsessive compulsive disorder) ([facility]) PTSD (post-traumatic stress disorder) ([facility]) HISTORY PAST MEDICAL HISTORY SOCIAL HISTORY Past Medical History: Diagnosis Date Anxiety Depression ([facility]) Endometriosis OCD (obsessive compulsive disorder) ([facility]) PTSD (post-traumatic stress disorder) ([facility]) Social History Tobacco Use Smoking status: [...] nursing note reviewed. Exam conducted with a gaming manager present. Vitals: There is no height or [...] Won Rueda DO documented in this encounter [facility] 11-19-2023 Evaluation + Plan note Diagnostic Tests PendingT3 Free 11/19/23Thyroid Perox.tpo Ab 11/19/23TgAb+Thyroglobulin,CHING or ARLEN 11/19/23 [facility] 11-02-2023 History of Present illness Narrative GYNECOLOGY CONSULT NOTE REASON FOR VISIT Endometriosis Pelvic pain HISTORY OF PRESENT ILLNESS Ms. Medrano is a 27 y.o. (NSVDx2) who presents for consultation regarding endometriosis, pelvic pain. Records review: Moved back from [place] to [place] (2021) First diagnosed in 2017 Has had [...] tried to get her medical records in [place], but they would not send them. She [...] a women's health doctor in [facility] who told her she had stage IV endometriosis. She is no longer on the progesterone. Has tried vaginal valium does not help Her 2 previous pregnancies were with a previous partner. She and her are trying for another now. No BA in [place] Partner has not had a SA yet [...] patient today. 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 Risk assessment was [...] Pt to call with any worsening symptoms. 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 Risk assessment was done as well [...] intractable, unspecified migraine type (ICD-10 - G43.909) [facility] Other 11-06-2020 NoteOPERATIVE NOTE OPERATION DATE: 06-25-20 ANESTHETIC:General. PROTOTYPER:None. PREOPERATIVE DIAGNOSIS: 1. Dyspareunia. 2. Right and [...] and needle counts were correct x2. [facility] Signed and Approved by: DR WON RUEDA . 07/30/2020 13:02:00[facility] note* Clinical Note Date No Information [facility] Work Phone: Discharge summary* Clinical Note Date No Information [facility] Phone: [facility] [employer] Other Evaluation note* Diagnosis Endometriosis- Primary Endometriosis, site unspecified Pelvic pain Unspecified symptom associated with female genital organs Myalgia of pelvic floor Dysmenorrhea Dyspareunia in female Nausea and vomiting, unspecified vomiting type Bladder pain Other symptoms involving urinary system Anxiety Anxiety state, unspecified [facility] Diagnosis Onset Date Resolution Status Depression acute Generalized anxiety disorder acute Obsessive compulsive disorder acute PTSD (post-traumatic stress disorder) acute Depression acute Endometriosis acute Generalized anxiety disorder acute Obsessive compulsive disorder acute PTSD (post-traumatic stress disorder) acute TBI (traumatic brain injury) acute [facility] Work Phone: Evaluation note* Type Assessment Date No Information [facility] Work Phone: Evaluation note* Diagnosis 32 weeks [...] Clinical Note Date No Information [facility] Phone: History general Narrative - Reported* Type Description Date Medical History Anxiety Medical History Stage 4 Endometriosis Medical History Depression with manic episodes Medical History OCD Medical History PTSD Medical History TBI Surgical History Endometriosis surgery x2 Surgical History [place] teeth Surgical History Injections in cervix [facility] Other History of Present illness Narrative* Encounter Date Complaint History Of Prese nt Illness No Information [facility] Phone: Hospital course Narrative No data available for this section [facility] No data available for this section [facility]* Date Instruction Additional Infor mation No Information [facility] Phone: Progress note No data available for this section [facility] Clinical Note Date No Information [facility] Phone: Reason for referral (narrative)* Consultation (Routine) - New Request Specialty Diagnoses / Procedures Referred By Harris gautam Referred To Contact Psychology Diagnoses Pelvic pain Anxiety Earle Chen MD [address] [place] [address] Oksana Luu, PhD [address] [place] [address] Referral ID Status Reason Start Date Expiration Date V isits Requested Visits Authorized [id number] New Request 11/02/2023 11/26/2024 1 1 * Consultation (Routine) - New Request Specialty Diagnoses / Procedures Referred By Contac t Referred To Contact Integrative Medicine Diagnoses Pelvic pain Nausea and vomiting, unspecified vomiting type Earle Chen MD [address] [place] [address] Referral ID Status Reason Start Date Expiration Date V isits Requested Visits Authorized [id number] New Request 11/02/2023 11/26/2024 1 1 * Consultation (Routine) - New Request Specialty Diagnoses / Procedures [facility] Referred To Contact Gynecology Diagnoses Pelvic pain Myalgia of pelvic floor Bladder pain Earle Chen MD [address] [place] [address] Referral ID Status Reason Start Date Expiration Date V isits Requested Visits Authorized [id number] New Request 11/02/2023 11/26/2024 1 1 * MRI/CAT Scan (Routine) - New Request Specialty Diagnoses / Procedures [facility] Referred To Contact Diagnoses Endometriosis Pelvic pain Procedures MRI PELVIS WITH AND WITHOUT CONTRAST HI MRI, PELVIS, COMBO Earle Chen MD [address] [place] [address] Referral ID Status Reason Start Date Expiration Date V isits Requested Visits Authorized [id number] New Request 11/02/2023 11/26/2024 1 1 [facility] for referral (narrative)* Reason For Referral No Information [facility] Work Phone: Summary Purpose Family History No [...] Diagnosis 1 Endometriosis (N80.9 ) Referral Organization [facility] [employer] [facility] Referring Provider First Name Lucila Referring Provider Last Name Rohrbacher Referring Provider Specialty Nurse Pract itioner Referred Organization [facility] Referred Provider Jena Suresh Referred Address ,[place], [place],[address] Referred Provider Specialty OB - Gynecol ogy [...] intractable, unspecified migraine type (G43.909) Referral Organization [facility] [employer] [facility] Referring Provider First Name Lucila Referring Provider Last Name Rohrbacher Referring Provider Specialty Nurse Pract itioner Referred Organization [facility] Referred Provider Herbie Arroyo Referred Address [address] [place], [place],[address] Referred Provider Specialty Neurology Referral Priority Routine [...] Diagnosis 1 Endometriosis (N80.9 ) Referral Organization [facility] [employer] [facility] Referring Provider First Name Lucila Referring Provider Last Name Rohrbacher Referring Provider Specialty Nurse Pract itioner Referred Organization [facility] Referred Address [address] [place], [place],[address] Referred Provider Specialty Endocrinolog y Referral Priority [...] and content) DATE CREATED AUTHOR 12/15/2020 [facility] DATE CREATED AUTHOR AUTHOR'S ORGANIZ ATION 11/03/2023 [facility] DATE CREATED AUTHOR AUTHOR'S ORGANIZ ATION 11/20/2023 [facility] DATE CREATED AUTHOR AUTHOR'S ORGANIZ ATION 12/15/2023 [facility] DATE CREATED AUTHOR AUTHOR'S ORGANIZ ATION 04/01/2024 [facility] DATE CREATED AUTHOR AUTHOR'S ORGANIZ ATION 07/01/2024 [facility] Special[facility] EPIC REASON FOR VISIT (unrecogniz ed section and content) Reason Comments Consult Pt diagnosis with En dometriosis in 2018. Patient desire . Specialty Diagnoses / Procedures Referred By Harris t Referred To Contact [employer] Diagnoses Endometriosis Lucila Arnett, KHADRA [address] [place] [address] [facility] [address] [place] [address] Referral ID Status Reason Start Date Expiration Date V isits Requested Visits Authorized [id number] New Request 10/23/2023 11/16/2024 1 1 Reason Comments Routine Visit Care Teams (unrecognized sec tion and content) Team Status: Active Member Role Status Dates Lucila Arnett APRN NUTRITIONAL ASSISTANT-Jazmine Primary Care Provider Active Team Status: Inactive Member Role Status Dates REAL Juarez Attending Provider Act vinicius Start: September 14, 2023 End: September 14, 2023 Team Status: Inactive Member Role Status Dates REAL Juarez Primary Care Provider, Attending Provider Active Start: October 17, 2023 End: October 17, 2023 Team Status: Inactive Member Role Status Dates Lucila Arnett APRN NUTRITIONAL ASSISTANT-C Primary Care Provider, Attending Provider Active Start: November 14, 2023 End: November 14, 2023 Name Effective Dates (start - stop) Status Members No Information Account Manager B2B Relationship Specialty Start Date End Date Lucila Arnett NP [address] [facility] [place] [address] PCP - General Family Medicine 11/11/23 Account Manager B2B Relationship Specialty [place] [address] [place] [address] [place] [address] PCP - General Family Medicine 11/11/23 Account Manager B2B Relationship Specialty Start Date End Date Lucila Arnett NP [address] [facility] [place] [address] PCP - General Family Medicine 11/11/23 Account Manager B2B Relationship Specialty Start Date End Date Lucila Arnett NP [address] [facility] [place] [address] PCP - General Family Medicine 11/11/23 Goals [...] BE BASED ON THE PRIMARY CLINICAL RECORDS. [employer] [facility]. provides no warranty or guarantee of the accuracy or completeness of information in this document.
[2024-07-06] VITALS (32 sets, daily range): BP systolic 81–133; BP diastolic 48–82; PULSE 51–77; TEMP 36.1–36.7
[2024-07-06 00:26] LABS: Hematocrit 30.2 % (36.0-48.0); Hemoglobin 10.1 g/dL (12.0-16.0); Mean Corpuscular HGB Conc 33.4 g/dL (29.9-35.2); Mean Corpuscular Hemoglobin 30.2 pg (26.7-34.0); Mean Corpuscular Volume 90.4 fL (81.0-99.0); Mean Platelet Volume 9.1 fL (9.5-13.5); Platelet Count 224 10^3/uL (150-450); Red Blood Count 3.34 10^6/uL (4.20-5.40); Red Cell Distribution Width 12.5 % (11.0-15.0); White Blood Count 8.6 10^3/uL (4.0-11.0)
[2024-07-06 00:41] LABS: Amphetamine Screen Urine NEGATIVE (NEGATIVE); Barbiturates Screen Urine NEGATIVE (NEGATIVE); Benzodiazepines Screen Urine NEGATIVE (NEGATIVE); Buprenorphine Screen Urine NEGATIVE (NEGATIVE); Cannabinoid Screen Urine NEGATIVE (NEGATIVE); Cocaine Screen Urine NEGATIVE (NEGATIVE); Methadone Screen Urine NEGATIVE (NEGATIVE); Methamphetamines Screen Urine NEGATIVE (NEGATIVE); Opiate Screen Urine NEGATIVE (NEGATIVE); Oxycodone Screen Urine NEGATIVE (NEGATIVE); Phencyclidine Screen Urine NEGATIVE (NEGATIVE); Tricyclic Antidepressant Urine NEGATIVE (NEGATIVE)
[2024-07-06] MEDS: 0.9 % SODIUM CHLORIDE 1,000 ML 125 ML IV ×2 (01:05→07:28)
[2024-07-06] MEDS: OXYTOCIN/0.9 % SODIUM CHLORIDE 10 UNITS/500 ML PLAST..BAG 6 UNIT IV (01:06)
[2024-07-06] MEDS: ACETAMINOPHEN 500 MG TABLET 1000 MG PO ×2 (10:47→19:02)
[2024-07-06] MEDS: ONDANSETRON PF 4 MG/2 ML VIAL IV (11:49)
[2024-07-06] MEDS: NALBUPHINE HCL 10 MG/ML AMPULE IV (12:04)
[2024-07-06] MEDS: OXYTOCIN/0.9 % SODIUM CHLORIDE 20 UNITS/1,000 ML PLAST..BAG 125 UNIT IV (12:22)
--- NOTE | 2024-07-06 12:25 | PM.OBPRCVD ---
Procedure Intrapartal events: None Induction method: per pitocin protocol Delivery augmentation: rupture of membranes and pitocin Delivery monitor: external FHT and external uterine Route of delivery: Episiotomy Description: none L&D Laceration Description: none Delivery repair: Vicryl Estimated blood loss (mL): 350 Anesthesia type: None Disposition: floor Infant Delivery date: 07/06/24 Gender: female presentation: vertex Placental delivery description: Spontaneous cord description: 3 Vessels
[2024-07-06] MEDS: GLYCERIN/WITCH HAZEL PADS 1 PAD TOPICAL (16:02)
[2024-07-06] MEDS: IBUPROFEN 600 MG TABLET PO ×2 (16:02→21:54)
[2024-07-07] MEDS: ACETAMINOPHEN 500 MG TABLET 1000 MG PO ×2 (01:05→08:02)
[2024-07-07] MEDS: IBUPROFEN 600 MG TABLET PO ×4 (04:08→22:41)
[2024-07-07 06:21] LABS: Basophils Absolute Auto 0.1 10^3/uL (0.0-0.1); Basophils Percent Auto 0.4 % (0.2-2.0); Eosinophils Absolute Auto 0.2 10^3/uL (0.0-0.7); Eosinophils Percent Auto 1.7 % (0.9-7.0); Hematocrit 25.5 % (36.0-48.0); Hemoglobin 8.4 g/dL (12.0-16.0); Immature Granulocytes Abs Auto 0.26 10^3/uL (0.00-0.03); Immature Granulocytes Pct Auto 2.1 % (0.0-0.5); Lymphocytes Absolute Auto 2.4 10^3/uL (1.2-3.8); Lymphocytes Percent Auto 19.5 % (20.5-60.0); Mean Corpuscular HGB Conc 32.9 g/dL (29.9-35.2); Mean Corpuscular Volume 91.1 fL (81.0-99.0); Mean Platelet Volume 9.3 fL (9.5-13.5); Monocytes Absolute Auto 1.2 10^3/uL (0.3-0.8); Monocytes Percent Auto 9.3 % (1.7-12.0); Neutrophils Absolute Auto 8.4 10^3/uL (1.4-6.5); Platelet Count 189 10^3/uL (150-450); Red Cell Distribution Width 12.5 % (11.0-15.0); White Blood Count 12.5 10^3/uL (4.0-11.0)
[2024-07-07] MEDS: DOCUSATE SODIUM 100 MG CAPSULE PO ×2 (08:03→20:39)
[2024-07-07 08:11] VITALS: BP 111/61; PULSE 73
[2024-07-07 08:15] VITALS: TEMP 36.3
[2024-07-07] MEDS: ACETAMINOPHEN 325 MG TABLET 650 MG PO ×2 (14:35→20:39)
[2024-07-07 16:33] VITALS: BP 123/56; PULSE 81
--- NOTE | 2024-07-07 17:43 | P.OBPN_ITS ---
OB - PN: Subj Subjective Patient comments: no complaints and pain well controlled [place] status: doing well Exam Constitutional Vital Signs, click to edit/add: Last Vital Signs Temp 97.4 F L 07/07/24 08:15 Pulse 81 07/07/24 16:33 Resp 16 07/07/24 16:30 BP 123/56 07/07/24 16:33 O2 Del Method Room Air 07/07/24 16:30 Documenting provider has reviewed patient's vital signs: yes Common normals: no apparent distress Respiratory Common normals: clear to auscultation bilaterally Cardio Common normals: regular rate and regular rhythm GI Common normals: Normal to inspection, nondistended, normoactive bowel sounds present Extremity Common normals: no calf tenderness Results Labs Labs: Short CBC 07/07/24 Range/Units 06:07 WBC 12.5 H (4.0-11.0) 10^3/uL Hgb 8.4 L (12.0-16.0) g/dL Hct 25.5 L (36.0-48.0) % Plt Count 189 (150-450) 10^3/uL OB - PN: A/P Plan - Vaginal Delivery day: 1 Plan: routine care Time Spent with Patient Time: Total time spent is greater than 50% in coordination of care (as documented) at patient's floor/unit and/or counseling patient: Total time spent with greater than 50% in coordination of care (as documented) at patient's floor/unit and/or counseling patient: less than 15 minutes
--- NOTE | 2024-07-07 19:07 | W.PC.ACHO ---
Registration Status: ADM IN Primary Language: Cymraes Preferred Language: Cymraes Report given to Reginald BELLAMY. Active Medications Generic Name Dose Route Start Last Admin Trade Name Freq PRN Reason Stop Dose Admin Acetaminophen 1,000 mg 07/06/24 10:18 07/07/24 08:02 Acetaminophen 500 Mg Tablet PO 1,000 mg Q6H PRN Administration Pain Acetaminophen 650 mg 07/06/24 12:26 07/07/24 14:35 Acetaminophen 325 Mg Tablet PO 650 mg Q6H PRN Administration Mild Pain Al Hydroxide/Mg Hydroxide 2,400 mg 07/06/24 12:26 Magnesium Hydroxide 2,400 Mg/10 Ml Oral.Susp PO Q6H PRN Dyspepsia Benzocaine/Menthol 1 applic 07/06/24 12:26 Benzocaine/Menthol 85 Gram [place] Bottle TOPICAL Q2H PRN Pain Diphtheria/Pertussis/Tetanus Vacc 0.5 ml 07/08/24 09:00 Adacel Diph,Pertuss(Acell),Tet Vac/Pf 0.5 Ml Adult Syringe IM 07/08/24 09:01 .ONCE ONE Docusate Sodium 100 mg 07/07/24 09:00 07/07/24 08:03 Docusate Sodium 100 Mg Capsule PO 100 mg BID CINDA Administration Sodium Chloride 1,000 mls @ 125 mls/hr 07/05/24 23:45 07/06/24 12:20 Sodium Chloride 0.9% 1,000 Ml IV 0 mls/hr .Q8H CINDA Infusion Ibuprofen 600 mg 07/06/24 12:26 07/07/24 16:28 Ibuprofen 600 Mg Tablet PO 600 mg Q6H PRN Administration Moderate Pain Measles/Mumps/Rubella Vaccine Live 0.5 ml 07/08/24 09:00 Measles,Mumps,Rubella Vacc/Pf 0.5 Ml Vial SQ 07/08/24 09:01 .ONCE ONE Ondansetron HCl 4 mg 07/05/24 23:41 07/06/24 11:49 Ondansetron Pf 4 Mg/2 Ml Vial IV 4 mg Q6H PRN Administration Nausea And Vomiting Ondansetron HCl 4 mg 07/05/24 23:41 Ondansetron 4 Mg Rapdis Tablet SL Q6H PRN Nausea And Vomiting Senna 17.2 mg 07/06/24 20:00 Sennosides 8.6 Mg Tablet PO QHS PRN Constipation Simethicone 80 mg 07/06/24 12:26 Simethicone 80 Mg Tab.Chew PO QID PRN Abdominal Distention Temazepam 15 mg 07/06/24 12:26 Temazepam 15 Mg Capsule PO QHS PRN Sleep Witch Veronica/Glycerin 1 pad 07/06/24 12:26 07/06/24 16:02 Glycerin/Witch Veronica Pads TOPICAL 1 pad Q2H PRN Administration Pain Respiratory Oxygen Delivery Method Room Air Oxygen Delivery Method Room Air Oxygen Delivery Method Room Air Oxygen Delivery Method Room Air Cardiology Heart Sounds Regular Renal Bladder Pattern Continent Bladder Pattern Continent
[2024-07-08 01:10] VITALS: TEMP 35.7
[2024-07-08 01:11] VITALS: BP 116/68; PULSE 68
[2024-07-08] MEDS: IBUPROFEN 600 MG TABLET PO (04:27)
[2024-07-08] MEDS: ACETAMINOPHEN 325 MG TABLET 650 MG PO (05:37)
--- NOTE | 2024-07-08 08:11 | PM.OBPN ---
OB - PN: Subj Subjective Patient comments: no complaints and pain well controlled [place] status: doing well Exam Constitutional Vital Signs, click to edit/add: Last Vital Signs Temp 96.3 F L 07/08/24 01:10 Pulse 68 07/08/24 01:11 Resp 16 07/08/24 01:10 BP 116/68 07/08/24 01:11 O2 Del Method Room Air 07/08/24 01:10 Documenting provider has reviewed patient's vital signs: yes Common normals: no apparent distress Respiratory Common normals: clear to auscultation bilaterally Cardio Common normals: regular rate and regular rhythm GI Common normals: Normal to inspection, nondistended, normoactive bowel sounds present Extremity Common normals: no clubbing, cyanosis or edema and no calf tenderness OB - PN: A/P Plan - Vaginal Delivery day: 2 Plan: routine care, discharge home and follow up 6 weeks Time Spent with Patient Time: Total time spent is greater than 50% in coordination of care (as documented) at patient's floor/unit and/or counseling patient: Total time spent with greater than 50% in coordination of care (as documented) at patient's floor/unit and/or counseling patient: less than 15 minutes
[2024-07-08 08:37] VITALS: BP 122/74; PULSE 72; TEMP 36.3
[2024-07-08] MEDS: DOCUSATE SODIUM 100 MG CAPSULE PO (08:37)
== END 2024-07-08 11:45 | disposition home or self-care (01) | DRG 560 ==
PROVIDERS: Admitting Provider Obstetrics & Gynecology; PCP Nurse Practitioner Family; Visit Provider Obstetrics & Gynecology
DX: O80 Encounter for full-term uncomplicated delivery (principal); Z37.0 Single live birth; Z3A.37 37 weeks gestation of pregnancy
CPT/HCPCS: 36415; 59050; 59410; 76818; 80307; 85025; 85027; 86850; 86900; 86901; J2300; J2405

== ENCOUNTER 2024-08-01 11:29 | Outpatient (OUT) | payer OTHER, SELFPAY ==
--- NOTE | 2024-08-01 | US_ITS ---
The [address] [address] Patient Name: COLTON VERMA MRN: [id number] date: 1995 Sex: F Assigned Patient Location: US Current Patient Location: US Accession/Order Number: [id number] Exam Date: 08/01/2024 11:32 Report Date: 08/01/2024 15:45 At the request of: WON LESTER Procedure: US pelvis transvaginal EXAMINATION: US pelvis transvaginal HISTORY: PELVIC PAIN, ASSESS FOR RETAINED PRODUCT AFTER DELIVERY COMPARISON: No relevant comparison available. FINDINGS: The uterus is prominent in size, normal contour and echotexture measuring 9.0 x 7.3 x 6.4 cm consistent with the patient's state. The uterus is retroverted. No focal myometrial mass The endometrium measures 4 mm, normal. No hypervascularity The right ovary is normal measuring 5 x 2.0 x 2.3 cm. Normal color Doppler flow The left ovary is normal measuring 3.5 x 1.5 x 1.5 cm. Normal color and Doppler flow No free fluid US/US pelvis transvaginal IMPRESSION: No definite retained products of conception Electronically authenticated by: DARLINE ESPITIA Date: 08/01/2024 15:45
--- OUTSIDE RECORDS SUMMARY | 2024-08-01 11:51 | XMS_ITS | CCD ---
Author Organization [facility] Care Team Providers Care Key Sander Name Role Phone MARYBETH, DR UPTON Admitting [...] Unavailable Primary Care Provider Unavailabl e GIUSEPPEAL, CHERI Attending Unavailable LUCILA ARNETT Referring Unavailable LUCILA ARNETT Primary Care Physician KHADRA ARNETT Attending Unava ilable KHADRA ARNETT Admitting Unava ilable YODER, HAKEEM Primary Care Unavailable MARYBETH, MOI Referring Unavailable YODER, HAKEEM Referring Unavailable YODER, HAKEEM Primary Care Unavailable YODER, HAKEEM Primary Care Unavailable MARYBETH, MOI Referring Unavailable YODER, HAKEEM Primary Care Unavailable MARYBETH, MOI Referring Unavailable YODER, HAKEEM Primary Care Unavailable MARYBETH, MOI Referring Unavailable YODER, HAKEEM Primary Care Unavailable MARYBETH, MOI Referring Unavailable YODER, HAKEEM Primary Care Unavailable MARYBETH, MOI Referring Unavailable Hill Jacobsen DO Unavailable Unavailable MARYBETH, MOI R Referring Unavailable BARI SKELTON Attending Unavailable MARYBETH, MOI R Referring Unavailable MARYBETH, MOI R Referring Unavailable POLA HORNE Attending Unavailable MARYBETH, MOI R Referring Unavailable MARYBETH, MOI R Referring Unavailable MARYBETH, MOI R Referring Unavailable Steveachealaina CHANG, Lucila Aponte Primary Care Provider MARYBETH, MOI Attending Unavailable MARYBETH, MOI Attending Unavailable MARYBETH, MOI Attending Unavailable MARYBETH, MOI Attending Unavailable MARYBETH, MOI Attending Unavailable MARYBETH, MOI Attending Unavailable LEANDER, PEDRO Attending Unavailable MARYBETH, MOI Attending Unavailable MARYBETH, MOI Attending Unavailable MARYBETH, MOI Attending Unavailable MARYBETH, MOI Attending Unavailable MARYBETH, MOI Attending Unavailable MARYBETH, MOI Attending Unavailable MARYBETH, MOI Attending Unavailable MARYBETH, MOI Attending Unavailable Allergies Allergy Classification Reported Allergen(s) Allergy Type Date of Onset Reaction(s) Facility Opioid Agonists (1 source) traMADol Drug Allergy 0 [facility] Repository (18 sources) traMADol; Translations: [TRAMADOL] Drug Allergy 4 Unknown, Hives [facility] (18 sources) Lavender Oil; Translations: [LAVENDER OIL] Drug allergy 4 Unknown [facility] Repository (1 source) lavender (Lavandula angustifolia) Allergy to substance 4 Unknown Reaction [facility] (13 sources) GALCANEZUMAB-GNL M; Translations: [GALCANEZUMAB-GN LM] Propensity to adverse reactions to drug (disorder) 4 [facility] Rep[facility] (12 sources) Galcanezumab Propensity to adverse reactions 4 [facility] Healthcare Work Phone: Medications Current Medications Medication [...] aspirin 81 mg delayed release oral tablet (12 sources) Platelet Aggregation Inhibitor, Nonsteroidal Anti-inflammatory Drug take 1 tablet by mouth once daily aspirin 81 MG EC tablet Take 81 mg by mouth Daily Active Blood Glucose Monitoring Suppl (D-Care Glucometer) w/Device kit (12 sources) Start : 04-24 End: 04-24 Blood [...] oral solution (1 source) alpha-Adrenergic Agonist, Uncompetitive C-plzvpr-D-aspartate Receptor Antagonist, Sigma-1 Agonist Start : 09-30 [...] daily cyclobenzaprine hydrochloride 10 mg oral tablet (13 sources) Muscle Relaxant Start : 04-28 cyclobenzaprine (Flexeril) 10 MG tablet cyclobenzaprine 10 mg tablet - Active 04/28/2023 Active doxepin hydrochloride 10 mg oral capsule (1 source) Tricyclic Antidepressant Start : 11-26 doxepin 10 mg capsule - Active escitalopram 20 mg oral tablet (1 source) Serotonin Reuptake Inhibitor Start : 01-09 escitalopram 20 mg tablet - Active ferrous sulfate (11 sources) take 1 tablet by mouth in the morning Ferrous Sulfate (IRON PO) Take 1 tablet by mouth in the morning. Active ibuprofen 600 mg oral tablet (2 sources) Nonsteroidal Anti-inflammatory Drug Start : 01-27 ibuprofen 600 mg tablet PLEASE SEE ATTACHED FOR DETAILED DIRECTIONS - Active isopropyl alcohol 0.7 ml/ml medicated pad (12 sources) Start : 04-24 Alcohol Swabs (Alcohol Prep Pad) 70 % pads Indications: Elevated glucose tolerance test Apply 1 Pad topically Daily Use four times daily to check FSBS. 150 each 3 04/24/2024 Active magnesium lactate 84 mg extended release oral tablet (11 sources) take 1 tablet by mouth in the morning magnesium lactate CR (Magtab) 84 MG (7MEQ) ER tablet Take 84 mg by mouth in the morning. Active magnesium oxide 400 mg oral tablet (11 sources) Start : 12-18 magnesium oxide (Mag-Ox) [...] omeprazole 20 mg delayed release oral capsule (12 sources) Proton Pump Inhibitor Start : 12-12 End: 12-12 take 1 capsule by mouth before mealtime omeprazole (PriLOSEC) [address] capsule Indications: Heartburn during in first trimester Take 1 capsule (20 mg) by mouth in the morning. Take before meals. Do not crush or chew.. 30 capsule 11 12/13/2023 12/12/2024 Active ondansetron 4 mg disintegrating oral tablet (13 sources) Serotonin-3 Receptor Antagonist Start : 11-29 [...] polysaccharide iron complex 391 mg oral capsule (11 sources) Start: 05-05-2024 End: 05-05-2025 take 1 capsule by mouth once daily iron polysaccharides (ProFe) 391.3 (180 Fe) MG capsule Indications: Low iron Take 1 capsule (391.3 mg) by mouth Daily 30 capsule 6 05/05/2024 05/05/2025 Active Qpehbrgn-Rkv-Wj-FA ( 1 + IRON PO) (12 sources) Sgzpnfky-Zme-Cl-FA ( 1 + IRON PO) Take by [...] 10 tab(s), Refills(s) 0, Pharmacy: [facility] 1984 Start Date: 09/21/18 Status: Ordered zolpidem tartrate 10 mg oral tablet (11 sources) gamma-Aminobutyr ic Acid-ergic Agonist Start: 05-19-2024 [...] Problem Classification Problem Date Documented Date Episodic/Chronic Anxiety disorders (20 sources) Generalized anxiety disorder; [...] sources) Depressive disorder; Translations: [Depression] 10-16-2023 Chronic Other complications of (1 source) Supervision of [...] [Unspecified dyspareunia] 11-02-2023 Chronic Residual codes; unclassified (2 sources) Personal history of other complications of , childbirth and the puerperium; Translations: [Personal history of other complications of , childbirth and the puerperium] Onset: 12-06-2023 Episodic Residual codes; unclassified (1 source) 18 weeks gestation of ; Translations: [18 weeks gestation of ] Onset: 02-25-2024 Episodic Residual codes; unclassified (2 sources) Gestation [...] Problem Date Documented Date Episodic/Chronic Abdominal pain (20 sources) Pelvic and perineal pain; Translations: [Pain in pelvis] Onset: 04-30-2020 Episodic Conditions associated with dizziness or vertigo (12 sources) Dizziness; Translations: [Dizziness and giddiness] Onset: 01-03-2024 01-03-2024 Episodic Deficiency and other anemia (1 source) Anemia, unspecified; Translations: [ANEMIA UNSPECIFIED] Onset: 08-02-2020 Episodic Immunizations and screening for infectious disease (1 source) Encounter for screening for human papillomavirus (HPV); Translations: [ENC SCREENING HUMAN PAPILLOMAVIRUS] Onset: 05-05-2020 Episodic Nausea and vomiting (2 sources) Nausea and vomiting; Translations: [Nausea with vomiting, unspecified] Onset: 01-03-2024 11-02-2023 Episodic Other complications of (11 sources) Vomiting of , unspecified; Translations: [Unspecified vomiting of , unspecified as to episode of care or not applicable] Onset: 01-03-2024 01-03-2024 Episodic Other complications of (12 sources) Heartburn; Translations: [Other specified related conditions, first trimester] Onset: 01-03-2024 01-03-2024 Episodic Other complications of (14 sources) High risk ; Translations: [Supervision of other high risk pregnancies, first trimester] Onset: 01-03-2024 01-03-2024 Episodic Other complications of (12 sources) Abdominal pain in ; Translations: [Other specified related conditions, unspecified trimester] Onset: 01-03-2024 01-03-2024 Episodic Other complications of (12 sources) Supervision of with other poor reproductive or obstetric history, third trimester; Translations: [ with other poor obstetric history] Onset: 04-10-2024 04-10-2024 Episodic Other female genital disorders (1 source) Unspecified hypertrophy of vulva; Translations: [UNSPECIFIED HYPERTROPHY OF VULVA] Onset: 08-02-2020 Episodic Other non-traumatic joint disorders (11 sources) Hip pain; Translations: [Pain in right hip] Onset: 01-03-2024 01-03-2024 Episodic Other non-traumatic joint disorders (1 source) Pain in right hip joint; Translations: [Pain in right hip] Onset: 01-03-2024 01-03-2024 Episodic Other and delivery including normal (20 sources) First trimester ; Translations: [Encounter for supervision of normal , unspecified, first trimester] Onset: 01-03-2024 01-03-2024 Episodic Other screening for suspected conditions (not mental disorders or infectious disease) (20 sources) Encounter for screening for malignant neoplasm of cervix; Translations: [Encounter for other screening follow-up] Onset: 04-29-2020 Episodic Residual codes; unclassified (4 sources) Other general symptoms and signs; Translations: [OTHER GENERAL SYMPTOMS AND SIGNS] Onset: 07-12-2020 Episodic Residual codes; unclassified (12 sources) History of placental abruption; Translations: [Personal history of other complications of , childbirth and the puerperium] Onset: 01-03-2024 01-03-2024 Episodic Residual codes; unclassified (12 sources) Gestation period, 24 weeks; Translations: [24 weeks gestation of ] Onset: 04-10-2024 04-10-2024 Episodic Unclassified (1 source) Onset: 08-20-2013 Resolved: 06-08-2014 02-25-2015 Results Test Name Value Interpretation Reference Range Facility ALL CBC WITH AUTO DIFFon BASOPHILS ABSOLUTE AUTO 0.1 [facility] Basophils/100 WBC (Bld) 0.4 % 0.2 - 2.0 % [facility] Eosinophils/100 WBC (Bld) 1.7 % 0.9 - 7.0 % [facility] Erythrocyte distribution width (RBC) [Ratio] 12.5 % 11.0 - 15.0 % [facility] Hematocrit (Bld) [Volume fraction] 25.5 % Low 36.0 - 48.0 % [facility] Hemoglobin (Bld) [Mass/Vol] 8.4 g/dL Low 12.0 - 16.0 g/dL [facility] IMMATURE GRANULOCYTES ABS AUTO 0.26 High [facility] Immature granulocytes/100 WBC (Bld) 2.1 % High 0.0 - 0.5 % [facility] Interpretation and review of laboratory results Abnormal [facility] LYMPHOCYTES ABSOLUTE AUTO 2.4 [facility] Lymphocytes/100 WBC (Bld) 19.5 % Low 20.5 - 60.0 % [facility] MCH (RBC) [Entitic mass] 30 pg 26.7 - 34.0 pg [facility] MCHC (RBC) [Mass/Vol] 32.9 g/dL 29.9 - 35.2 g/dL [facility] MCV (RBC) [Entitic vol] 91.1 fL 81.0 - 99.0 fL [facility] MONOCYTES ABSOLUTE AUTO 1.2 High [facility] Monocytes/100 WBC (Bld) 9.3 % 1.7 - 12.0 % [facility] NEUTROPHILS ABSOLUTE AUTO 8.4 High [facility] Neutrophils/100 WBC (Bld) 67 % 43.0 - 75.0 % [facility] Platelet mean volume (Bld) [Entitic vol] 9.3 fL Low 9.5 - 13.5 fL [facility] TBH EO # 0.2 [facility] TB PLT 189 [facility] RBC 2.8 Low [facility] WBC 12.5 High [facility] WITH [facility]ATE[facility] NO DI FFERENTIALon 07-06-2024 Erythrocyte distribution width (RBC) [Ratio] 12.5 % 11.0 - 15.0 % [facility] Hematocrit (Bld) [Volume fraction] 30.2 % Low 36.0 - 48.0 % [facility] Hemoglobin (Bld) [Mass/Vol] 10.1 g/dL Low 12.0 - 16.0 g/dL [facility] Interpretation and review of laboratory results Abnormal [facility] MCH (RBC) [Entitic mass] 30.2 pg 26.7 - 34.0 pg [facility] MCHC (RBC) [Mass/Vol] 33.4 g/dL 29.9 - 35.2 g/dL [facility] MCV (RBC) [Entitic vol] 90.4 fL 81.0 - 99.0 fL [facility] Platelet mean volume (Bld) [Entitic vol] 9.1 fL Low 9.5 - 13.5 fL [facility] PLT 224 [facility] RBC 3.34 Low [facility] WBC 8.6 [facility] DRUG SCREEN RAPID (URINE )on 07-06-2024 AMPHETAMINE SCREEN URINE Negative NEGATIVE [facility] BARBITURATES SCREEN URINE Negative NEGATIVE [facility] BENZODIAZEPINES SCREEN URINE Negative NEGATIVE [facility] BUPRENORPHINE SCREEN URINE Negative NEGATIVE [facility] Comment on above: DRUG CLASS TEST SYST EM CUT-OFF CONCENTRATIONS ARE FOLLOWS: AMP (Amphetamine): 500 ng/mL BAR (Barbiturates): 200 ng/mL BZO (Benzodiazepines): 150 ng/mL BUP (Buprenorphine): 10 ng/mL JIMBO (Cocaine): 150 ng/mL mAMP (Methamphetamine): 500 ng/mL MTD (Methadone): 200 ng/mL OPI (Opiates): 100 ng/mL OXY (Oxycodone): 100 ng/mL PCP (Phencyclidine): 25 ng/mL THC (Cannabinoids): 50 ng/mL TCA (Trycyclic Antidepressants): 300 ng/mL CANNABINOID SCREEN URINE Negative NEGATIVE [facility] COCAINE SCREEN URINE Negative NEGATIVE [facility] METHADONE SCREEN URINE Negative NEGATIVE [facility] METHAMPHETAMINES SCREEN URINE Negative NEGATIVE [facility] OPIATE SCREEN URINE Negative NEGATIVE [facility] OXYCODONE SCREEN URINE Negative NEGATIVE [facility] PHENCYCLIDINE SCREEN URINE Negative NEGATIVE [facility] TRICYCLIC ANTIDEPRESSANT URINE Negative NEGATIVE [facility] Urinalysis macro (dipstick) panel (U)on 06-30-2024 Bilirubin, UA Negative Negative - 4(70) +++ mg/dL [facility] Blood, UA Positive Negative - 50 Jt/mcL [facility] Clarity, UA Clear [facility] Color, UA Yellow [facility] Glucose, UA Negative Negative - 2000(110) ++++ mg/dL [facility] Interpretation and review of laboratory results Abnormal [facility] Ketones, UA Negative Negative - 160(16) ++++ mg/dL [facility] Leukocytes, UA Negative Negative - 500+++ [place]/mcL [facility] Nitrite, UA Negative Negative - Positive [facility] pH, UA 7 5 - 9 [facility] Protein, UA Trace Negative - 1999(20) ++++ mg/dL [facility] Spec Grav, UA 1.02 1 - 1.03 [facility] Urobilinogen, UA 1.0 0.2 - 12 mg/dL [facility] Urinalysis macro (dipstick) panel (U)on 06-23-2024 Bilirubin, UA Negative Negative - 4(70) +++ mg/dL [facility] Blood, UA Positive Negative - 50 Jt/mcL [facility] Comment on above: trace Clarity, UA Clear [facility] Color, UA Yellow [facility] Glucose, UA Negative Negative - 1999(110) ++++ mg/dL [facility] Interpretation and review of laboratory results Abnormal [facility] Ketones, UA Negative Negative - 160(16) ++++ mg/dL [facility] Leukocytes, UA Negative Negative - 500+++ [place]/mcL [facility] Nitrite, UA Negative Negative - Positive [facility] pH, UA 7 5 - 9 [facility] Protein, UA Negative Negative - 1999(20) ++++ mg/dL [facility] Spec Grav, UA 1.02 1 - 1.03 [facility] Urobilinogen, UA 2.0 0.2 - 12 mg/dL [facility] Urinalysis macro (dipstick) panel (U)on 06-05-2024 Bilirubin, UA Negative Negative - 4(70) +++ mg/dL [facility] Blood, UA Positive Negative - 50 Jt/mcL [facility] Comment on above: trace-intact Clarity, UA Clear [facility] Color, UA Yellow [facility] Glucose, UA Negative Negative - 1999(110) ++++ mg/dL [facility] Interpretation and review of laboratory results Abnormal [facility] Ketones, UA Negative Negative - 160(16) ++++ mg/dL [facility] Leukocytes, UA Negative Negative - 500+++ [place]/mcL [facility] Nitrite, UA Negative Negative - Positive [facility] pH, UA 7 5 - 9 [facility] Protein, UA Negative Negative - 1999(20) ++++ mg/dL [facility] Spec Grav, UA 1.02 1 - 1.03 [facility] Urobilinogen, UA 1.0 0.2 - 12 mg/dL [facility] ALL CBC WITH AUTO DIFFon BASOPHILS ABSOLUTE AUTO 0.1 [facility] Basophils/100 WBC (Bld) 0.8 % 0.2 - 2.0 % [facility] Eosinophils/100 WBC (Bld) 1.3 % 0.9 - 7.0 % [facility] Erythrocyte distribution width (RBC) [Ratio] 11.9 % 11.0 - 15.0 % [facility] Hematocrit (Bld) [Volume fraction] 31.4 % Low 36.0 - 48.0 % [facility] Hemoglobin (Bld) [Mass/Vol] 10.6 g/dL Low 12.0 - 16.0 g/dL [facility] IMMATURE GRANULOCYTES ABS AUTO 0.22 High [facility] Immature granulocytes/100 WBC (Bld) 2.6 % High 0.0 - 0.5 % [facility] Interpretation and review of laboratory results Abnormal [facility] LYMPHOCYTES ABSOLUTE AUTO 1.5 [facility] Lymphocytes/100 WBC (Bld) 17.5 % Low 20.5 - 60.0 % [facility] MCH (RBC) [Entitic mass] 32.4 pg 26.7 - 34.0 pg [facility] MCHC (RBC) [Mass/Vol] 33.8 g/dL 29.9 - 35.2 g/dL [facility] MCV (RBC) [Entitic vol] 96.0 fL 81.0 - 99.0 fL [facility] MONOCYTES ABSOLUTE AUTO 0.9 High [facility] Monocytes/100 WBC (Bld) 10.6 % 1.7 - 12.0 % [facility] NEUTROPHILS ABSOLUTE AUTO 5.7 [facility] Neutrophils/100 WBC (Bld) 67.2 % 43.0 - 75.0 % [facility] Platelet mean volume (Bld) [Entitic vol] 9.0 fL Low 9.5 - 13.5 fL [facility] TBH EO # 0.1 [facility] TB PLT 207 [facility] TB RBC 3.27 Low [facility] TB WBC 8.5 [facility] HCG.beta subunit Qnon 2023 hCG Quant [id number] mIU/mL Normal [facility] Comment on above: Order Comment: Pregn [...] By: #### 2 1198-7 #### [facility] [address] [place] [address] HCG.beta subunit Qnon 2023 hCG Quant 32580 mIU/mL Normal [facility] Comment on above: Order Comment: [...] By: #### 2 1198-7 #### [facility] ([facility] [address] [place] [address] HCG.beta subunit Qnon 2023 hCG Quant 78901 mIU/mL Normal [facility] Comment on above: Order Comment: [...] By: #### 2 1198-7 #### [facility] ([facility] [address] [place] [address] HCG.beta subunit Qnon 2023 hCG Quant 10679 mIU/mL Normal [facility] Comment on above: Order Comment: [...] By: #### 2 1198-7 #### [facility] ([facility] [address] [place] [address] HCG.beta subunit Qnon 2023 hCG Quant 2709 mIU/mL Normal [facility] Comment on above: Order Comment: [...] By: #### 2 1198-7 #### [facility] ([facility] [address] [place] [address] HCG.beta subunit Qnon 2023 hCG Quant 776 mIU/mL Normal [facility] Comment on above: Order Comment: [...] By: #### 2 1198-7 #### [facility] ([facility] [address] [place] [address] HCG.beta subunit Qnon 2023 hCG Quant 250 mIU/mL Normal [facility] Comment on above: Order Comment: [...] By: #### 2 1198-7 #### [facility] ([facility] [address] [place] [address] .Thyroglobulin by IMAon Thyroglobulin [Mass/Vol] 5.0 ng/mL Invalid Interpretation Code 1.5-38.5 [facility] Comment on above: Result Comment: Acco [...] is 0.1 ng/mL Thyroglobulin measured by [facility] [place] Immunometric Assay Performed at: [facility] [address] [id number] PhD Johanny Nieto Performed By: #### 2 [id number], [id number] #### [facility] [address] [place] [address] T3 Freeon 11-20-2023 Free T3 [Mass/Vol] 3.2 pg/mL Invalid Interpretation Code 2.0-4.4 [facility] Comment on above: Result Comment: Perf ormed at: [facility] [address] [place] [address] [id number] PhD Johanny Nieto Performed By: #### 2 [id number], [id number] #### [facility] [address] [place] [address] TgAb+Thyroglobulinon 024 Thyroglobulin Ab Qn [IU]/mL Invalid Interpretation Code 0.0-0.9 [facility] Comment on above: Result Comment: Thyr oglobulin Antibody measured by [employer] It should be noted that the presence of thyroglobulin antibodies may not be pathogenic nor diagnostic, especially at very low levels. The assay belt lacer has found that four percent of individuals without evidence of thyroid disease or autoimmunity will have positive TgAb levels up to 4 IU/mL. Performed at: [facility] [address] [id number] PhD Johanny Nieto Performed By: #### 2 [id number], [id number] #### [facility] [address] [place] [address] Thyroid Perox.tpo Abon 11-19 TPO Ab Qn [IU]/mL Invalid Interpretation Code 0-34 [facility] Comment on above: Result Comment: Perf ormed at: [facility] [id number] PhD Johanny Nieto Performed By: #### 2 [id number], [id number], [id number], [id number], [id number], [id number] #### [facility] [address] [place] [address] BhCG Quanton 11-19-2023 HCG.beta subunit Qn 86 m[IU]/mL High 1-3 [facility] Comment on above: Result Comment: 'F N ON < 1 - 3' ' 0.2 - 1 WEEK = 5 TO 50' ' 1 - 2 WEEKS = 50 - 500' ' 2 - 3 WEEKS = 100 - 5000' ' 3 - 4 WEEKS = 500 - 54881' ' 4 - 5 WEEKS = 1000 - 67891' ' 5 - 6 WEEKS = 00845 - 097743' ' 6 - 8 WEEKS = 80223 - 607502' ' 8 - 12 WEEKS = 03997 - 918260' Performed By: #### 2 [id number] #### [facility] [address] [place] [address] CHEMISTRYOrdered By: SYSTEM SYSTEM on 11-19-2023 HCG.beta [...] 3 - 4 WEEKS = 500 - 09367' ' 4 - 5 WEEKS = 1000 - 95271' ' 5 - 6 WEEKS = 22501 - 437219' ' 6 - 8 WEEKS = 86840 - 045660' ' 8 - 12 WEEKS = 62895 - 269725' Iron [Mass/Vol] 161 ug/dL High 35 - 153 mcg/dL Remisol Chem Iron binding capacity [Mass/Vol] 316 ug/dL Normal 250 - 400 mcg/dL Remisol Chem Transferrin [Mass/Vol] 226 mg/dL Normal 200 - 370 mg/dL Rem[facility] Chem TSH Qn 1.53 m[IU]/L Normal 0.34 - 5.60 mcIU/mL Remisol Chem Consent for Treatmenton Consent for Treatment [id number] #[id number] Normal [facility] Ironon 11-19-2023 Iron [Mass/Vol] 161 microgram/dL High 35-153 Fis [facility] Comment on above: Performed By: #### 2 [id number], [id number], [id number], [id number], [id number], [id number], [id number] #### [facility] [address] [place] [address] Physician Orderon 11-19-2023 Physician Order [id number] #1.00TIFF Normal [facility] TIBC Calculatedon 11-19-2023 Iron binding capacity [Mass/Vol] 316 microgram/dL Normal 250-400 [facility] Comment on above: Performed By: #### 2 [id number], [id number], [id number], [id number], [id number], [id number], [id number] #### [facility] [address] [place] [address] Transferrin [Mass/Vol] 226 mg/dL Normal 200-370 [facility] Comment on above: Performed By: #### 2 [id number], [id number], [id number], [id number], [id number], [id number], [id number] #### [facility] [address] [place] [address] TSH With T4fr Reflexon 11-18 TSH Qn 1.53 m[IU]/L Normal 0.34-5.60 [facility] Comment on above: Performed By: #### 2 [id number], [id number], [id number], [id number], [id number], [id number], [id number] #### [facility] [address] [place] [address] TSHon 07-12-2020 TSH 0.756 uIU/mL Normal 0.470-4.680 [facility] Comment on above: Performed By: #### T SH #### [facility] [address] [place] [address] Jayne Noris TSH RANGE SEE BELOW Normal [facility] Comment on above: Result Comment: <0.3 4 UIU/ml HYPERTHYROID 0.34-5.60 UIU/ml EUTHYROID >5.60 UIU/ml HYPOTHYROID Performed By: #### T SH #### [facility] [address] [place] [address] Jayne Noris CBC AUTO DIFFon 06-25-2020 BASO # 0.1 103/ul Normal 0.0-0.1 [facility] Comment on above: Performed By: #### C BC #### [facility] [address] [place] [address] Jayne Noris Basophils/100 WBC (Bld) 1.2 % Normal 0.2-2.0 [facility] Comment on above: Performed By: #### C BC #### [facility] [address] [place] [address] Jayne Noris EO # 0.2 103/ul Normal 0.0-0.7 [facility] Comment on above: Performed By: #### C BC #### [facility] [address] [place] [address] Jayne Noris Eosinophils/100 WBC (Bld) 2.6 % Normal 0.9-7.0 [facility] Comment on above: Performed By: #### C BC #### [facility] [address] [place] [address] Jayne Noris Erythrocyte distribution width (RBC) [Ratio] 12.0 % Normal 11.0-15.0 [facility] Comment on above: Performed By: #### C BC #### [facility] [address] [place] [address] Jayne Noris Hematocrit (Bld) [Volume fraction] 40.7 % Normal 36.0-48.0 [facility] Comment on above: Performed By: #### C BC #### [facility] [address] [place] [address] Jayne Noris Hemoglobin (Bld) [Mass/Vol] 13.6 g/dL Normal 12.0-16.0 [facility] Comment on above: Performed By: #### C BC #### [facility] [address] [place] [address] Jayne Noris IG # 0.01 10e3/ul Normal 0.00-0.03 [facility] Comment on above: Performed By: #### C BC #### [facility] [address] [place] [address] Jayne Noris IG % 0.2 % Normal 0.0-0.5 [facility] Comment on above: Performed By: #### C BC #### [facility] [address] [place] [address] Jayne Noris LYMPH # 1.9 103/ul Normal 1.2-3.8 [facility] Comment on above: Performed By: #### C BC #### [facility] [address] [place], [place] [address] Jayne Noris Lymphocytes/100 WBC (Bld) 32.5 % Normal 20.5-60.0 [facility] Comment on above: Performed By: #### C BC #### [facility] [address] [place], [place] [address] Jayne Noris MANUAL DIFF REQ NO Normal [facility] Comment on above: Performed By: #### C BC #### [facility] [address] [place] [address] Jayne Noris MCH (RBC) [Entitic mass] 31.3 pg Normal 26.7-34.0 [facility] Comment on above: Performed By: #### C BC #### [facility] [address] [place] [address] Jayne Noris MCHC (RBC) [Mass/Vol] 33.4 g/dL Normal 29.9-35.2 [facility] Comment on above: Performed By: #### C BC #### [facility] [address] [place], [place] [address] Jayen Noris MCV (RBC) [Entitic vol] 93.6 fL Normal 81.0-99.0 [facility] Comment on above: Performed By: #### C BC #### [facility] [address] [place], [place] [address] Jayne Noris MONO # 0.6 103/ul Normal 0.3-0.8 [facility] Comment on above: Performed By: #### C BC #### [facility] [address] [place] [address] Jayne Noris Monocytes/100 WBC (Bld) 10.4 % Normal 1.7-12.0 [facility] Comment on above: Performed By: #### C BC #### [facility] [address] [place] [address] Jayne Noris NEUT # 3.1 103/ul Normal 1.4-6.5 [facility] Comment on above: Performed By: #### C BC #### [facility] [address] [place], [place] [address] Jayne Hamm Neutrophils/100 WBC (Bld) 53.1 % Normal 43.0-75.0 [facility] Comment on above: Performed By: #### C BC #### [facility] [address] [place], [place] [address] Jaynejeremías Hamm Platelet mean volume (Bld) [Entitic vol] 8.9 fL Critically low 9.5-13.5 [facility] Comment on above: Performed By: #### C BC #### [facility] [address] [place] [address] Jayne Noris PLT 265 103/ul Normal 150-450 [facility] Comment on above: Performed By: #### C BC #### [facility] [address] [place] [address] Jayne Noris RBC 4.35 106/ul Normal 4.20-5.40 [facility] Comment on above: Performed By: #### C BC #### [facility] [address] [place] [address] Jayne Noris WBC 5.8 103/ul Normal 4.0-11.0 [facility] Comment on above: Performed By: #### C BC #### [facility] [address] [place] [address] Jayne Hamm PREG QUANT HCGon 06-25-2020 HCG QUANT 1.00 mIU/mL Normal [facility] Comment on above: Performed By: #### P REGQNT #### [facility] [address] [place] [address] Jayne Noris HCG RANGE SEE BELOW Normal [facility] Comment on above: Result Comment: 5-50 0-1 WEEK 40-300 1-2 WEEKS 100-1,000 2-3 WEEKS 500-6,000 3-4 WEEKS 5,000-200,000 1-2 MONTHS 10,000-100,000 2-3 MONTHS 3,000-50,000 2ND TRIMESTER 1,000-50,000 3RD TRIMESTER Performed By: #### P REGQNT #### [facility] [address] [place] [address] Jayne Hamm PAP ACOG PANEL 2: 21 to 29on 05-06-2020 . . Normal [facility] Comment on above: Performed By: #### 4 [id number] #### [facility] [address] [place] [address] Jayne Hamm Age Gdln ACOG Testing 21-29 Normal [facility] Comment on above: Performed By: #### 4 [id number] #### [facility] [address] [address] Jayne Hamm DIAGNOSIS: Comment [place] Comment on above: Result Comment: NEGA TIVE FOR INTRAEPITHELIAL LESION OR MALIGNANCY. Performed By: #### 4 [id number] #### [facility] [address] [place] [address] Jayne Hamm Methodology: Comment [place] Comment on above: Result Comment: This liquid based SurePath(R) pap test was screened with the assistance of an image guided system. Performed By: #### 4 [id number] #### [facility] [address] [place] [address] Jayne Hamm Note: Comment [place] Comment on above: Result Comment: The Pap smear is a screening test designed to aid in the detection of premalignant and malignant conditions of the uterine cervix. It is not a diagnostic procedure and should not be used as the sole means of detecting cervical cancer. Both false-positive and false-negative reports do occur. . Performed By: #### 4 [id number] #### [facility] [address] [place] [address] Jayne Hamm Performed by: Comment Normal [facility] Comment on above: Result Comment: Suman Rdz, Frame Carver Spindle (ASCP) Performed By: #### 4 [id number] #### [facility] [address] [place] [address] Jayne Hamm Reflex Criteria: Comment [facility] Comment on above: Result Comment: The HPV DNA reflex criteria were not met with this specimen result therefore, no HPV testing was performed. . Performed By: #### 4 [id number] #### [facility] [address] [address] Jayne Hamm Specimen adequacy: Comment Normal [facility] Comment on above: Result Comment: Sati sfactory for evaluation. Endocervical and/or squamous metaplastic cells (endocervical component) are present. Performed By: #### 4 [id number] #### [facility] [address] [address] Jayne Hamm US PELVIS AND TRANSVAGon US [...] by: DARLINE ESPITIA Date: 2020-04-30 14:54 Normal [facility] Vital Signs Date Time Vital Sign Value Performing Clinician Facility 06-30-2024 10:30-0500 Body weight 82.64 kg Moi Marybeth DO Work Phone: [facility] 06-30-2024 10:30-0500 Diastolic blood pressure 70 mm[Hg] Moi Marybeth DO Work Phone: [facility] 06-30-2024 10:30-0500 Systolic blood pressure 110 mm[Hg] Moi Marybeth DO Work Phone: [facility] 06-23-2024 09:56-0500 Body weight 80.74 kg Moi Marybeth DO Work Phone: [facility] 06-23-2024 09:56-0500 Diastolic blood pressure 70 mm[Hg] Moi Marybeth DO Work Phone: [facility] 06-23-2024 09:56-0500 Systolic blood pressure 112 mm[Hg] Moi Marybeth DO Work Phone: [facility] 06-05-2024 10:48-0400 Body weight 80.34 kg Moi Marybeth DO Work Phone: [facility] 06-05-2024 10:48-0400 Diastolic blood pressure 64 mm[Hg] Moi Marybeth DO Work Phone: [facility] 06-05-2024 10:48-0400 Systolic blood pressure 100 mm[Hg] Moi Marybeth DO Work Phone: [facility] 12-10-2023 09:18-0400 Diastolic blood pressure 84 mm[Hg] Hill Jacobsen Work Phone: [facility] 12-10-2023 09:18-0400 Heart rate 101 /min Hill Jacobsen Work Phone: [facility] 12-10-2023 09:18-0400 Respiratory rate 12 /min Hill Jacobsen Work Phone: [facility] 12-10-2023 09:18-0400 Systolic blood pressure 132 mm[Hg] Hill Jacobsen Work Phone: [facility] 11-02-2023 14:27-0400 Body height 180.3 cm Cheri Chen MD Work Phone: [facility] 11-02-2023 14:27-0400 Body mass index (BMI) [Ratio] 20.04 kg/m2 Cheri Chen MD Work Phone: [facility] 11-02-2023 14:27-0400 Body weight 65.18 kg Cheri Chen MD Work Phone: [facility] 11-02-2023 14:27-0400 Diastolic blood pressure 80 mm[Hg] Cheri Chen MD Work Phone: [facility] 11-02-2023 14:27-0400 Systolic blood pressure 110 mm[Hg] Cheri Chen MD Work Phone: [facility] 09-14-2023 11:30-0500 Body height 180.34 cm Lucila Arnett Other [facility] 09-14-2023 11:30-0500 Body mass index (BMI) [Ratio] 20.92 kg/m2 Lucila Arnett Other [facility] Other 09-14-2023 11:30-0500 Body weight 68.04 kg Lucila Arnett Other [facility] Other 09-14-2023 11:30-0500 Body weight 68.03 kg [facility] 09-14-2023 11:30-0500 Diastolic blood pressure 68 mm[Hg] Lucila Arnett Other [facility] 09-14-2023 11:30-0500 Respiratory rate 16 /min Lucila Arnett Other [facility] Other 09-14-2023 11:30-0500 SaO2% (BldA) [Mass fraction] 100 % Lucila Arnett Other [facility] Other 09-14-2023 11:30-0500 Systolic blood pressure 110 mm[Hg] Lucila Arnett Other [facility] 08-03-2023 10:00-0500 Body height 180.34 cm Lucila Arnett Other [facility] Other 08-03-2023 10:00-0500 Body mass index (BMI) [Ratio] 20.78 kg/m2 Lucila Arnett Other [facility] Other 08-03-2023 10:00-0500 Body weight 67.59 kg Lucila Melquiades Other [facility] Other 08-03-2023 10:00-0500 Diastolic blood pressure 66 mm[Hg] Lucila Arnett Other [facility] Other 08-03-2023 10:00-0500 SaO2% (BldA) [Mass fraction] 98 % Lucila Melquiades Other [facility] Other 08-03-2023 10:00-0500 Systolic blood pressure 100 mm[Hg] Lucila Melquiades Other [facility] Other Encounters Encounter Date Encounter Type Care Provider Facility Start: 07-07-2024 End: 07-07-2024 Clinisync Result Encounter Moi Marybeth DO Work Phone: [facility] Unsolicited Start: 07-07-2024 End: 07-07-2024 Clinisync Result Encounter Moi Marybeth DO Work Phone: [facility] Unsolicited Start: 07-06-2024 End: 07-06-2024 Clinisync Result Encounter Moi Marybeth DO Work Phone: [facility] Unsolicited Start: 07-06-2024 End: 07-06-2024 Clinisync Result Encounter Moi Marybeth DO Work Phone: [facility] Unsolicited Start: 06-30-2024 End: 06-30-2024 Bamboo flowsheet Moi Marybeth DO Work Phone: [facility] Start: 06-30-2024 End: 06-30-2024 Bamboo flowsheet Moi Marybeth DO Work Phone: [facility] Start: 06-30-2024 End: 06-30-2024 Office outpatient visit 15 minutes Moi Marybeth DO Work Phone: [facility] Comment on above: Third trimester preg travon Start: 06-30-2024 End: 06-30-2024 ambulatory MOI MARYBETH Not Available Start: 06-23-2024 End: 06-23-2024 Bamboo flowsheet Moi Marybeth DO Work Phone: [facility] Start: 06-23-2024 End: 06-23-2024 Bamboo flowsheet Moi Marybeth DO Work Phone: [facility] Start: 06-23-2024 End: 06-23-2024 Office outpatient visit 15 minutes Moi Marybeth DO Work Phone: [facility] Comment on above: Third trimester preg travon; 35 weeks gestation of Start: 06-23-2024 End: 06-23-2024 ambulatory MOI MARYBETH Not Available Start: 06-05-2024 End: 06-05-2024 Bamboo flowsheet Moi Marybeth DO Work Phone: [facility] Start: 06-05-2024 End: 06-05-2024 Bamboo flowsheet Moi Marybeth DO Work Phone: [facility] Start: 06-05-2024 End: 06-05-2024 Office outpatient visit 15 minutes Moi Marybeth DO Work Phone: [facility] Comment on above: 32 weeks gestation o f ; Third trimester ; H/O delivery, currently , first trimester; Pelvic pain in female; Cluster headache, not intractable, unspecified chronicity pattern; Bilateral leg pain Start: 06-05-2024 End: 06-05-2024 ambulatory MOI MARYBETH Not Available Start: 05-19-2024 End: 05-19-2024 ambulatory MOI MARYBETH Not Available Start: 05-08-2024 End: 05-08-2024 ambulatory MOI MARYBETH Not Available Start: 05-03-2024 End: 05-03-2024 Clinisync Result Encounter Moi Marybeth DO Work Phone: [facility] Unsolicited Start: 05-03-2024 End: 05-03-2024 Clinisync Result Encounter Moi Marybeth DO Work Phone: [facility] Unsolicited Start: 04-24-2024 End: 04-24-2024 ambulatory MOI MARYBETH Not Available Start: 04-10-2024 End: 04-10-2024 ambulatory MOI MARYBETH Not Available Start: 03-31-2024 End: 03-31-2024 ambulatory MOI R [facility] Start: 03-27-2024 End: 03-27-2024 ambulatory MOI MARYBETH Not Available Start: 03-25-2024 End: 03-25-2024 ambulatory MOI R [facility] Start: 03-13-2024 End: 03-13-2024 ambulatory PEDRO LEANDER Not Available Start: 02-28-2024 End: 02-28-2024 ambulatory MOI MARYBETH Not Available Start: 02-25-2024 End: 02-25-2024 ambulatory MOI R [facility] Start: 02-13-2024 End: 02-13-2024 ambulatory MOI MARYBETH Not Available Start: 01-30-2024 End: 01-30-2024 ambulatory MOI MARYBETH Not Available Start: 01-21-2024 End: [facility]: 01-17-[facility] End: 01-17-2024 ambulatory MOI MARYBETH Not Available Start: 01-03-2024 End: 01-03-2024 ambulatory MOI MARYBETH Not Available Start: 12-26-2023 End: 12-26-2023 ambulatory MOI MARYBETH Not Available Start: 12-13-2023 End: 12-13-2023 ambulatory MOI MARYBETH Not Available Start: 12-10-2023 End: 12-11-2023 ambulatory HAKEEMLIANG YODER [facility] Start: 12-10-2023 End: 12-10-2023 Encounter identifier Hill Jacobsen Work Phone: [facility] Start: 12-06-2023 End: 12-07-2023 ambulatory HAKEEM YODER [facility] Start: 12-03-2023 End: 12-04-2023 ambulatory HAKEEM YODER [facility] Start: 11-29-2023 End: 11-30-2023 ambulatory HAKEEM YODRE [facility] Start: 11-26-2023 End: 11-27-2023 ambulatory HAKEEM YODER [facility] Start: 11-23-2023 End: 11-24-2023 ambulatory HAKEEM YODER [facility] Start: 11-21-2023 End: 11-22-2023 ambulatory HAKEEM YODER [facility] Start: 11-19-2023 End: 11-20-2023 ambulatory FIELD AUTO APPRAISER LUCILA ARNETT Facility:[facility] Start: 11-19-2023 End: 11-19-2023 Patient encounter procedure LUCILA ARNETT [facility] Start: 11-14-2023 End: 11-14-2023 ambulatory [facility] Work Phone: Start: 11-14-2023 End: 11-14-2023 Patient encounter procedure [facility] Work Phone: Start: 11-02-2023 ambulatory CHERI CHEN Facility:[facility] Start: 11-02-2023 End: 11-02-2023 Office outpatient new 60 minutes Cheri Chen MD Work Phone: [facility] Comment on above: Endometriosis (Prima ry Dx); Pelvic pain; Myalgia of pelvic floor; Dysmenorrhea; Dyspareunia in female; Nausea and vomiting, unspecified vomiting type; Bladder pain; Anxiety Start: 10-17-2023 End: 10-17-2023 Patient encounter procedure [facility] Work Phone: Start: 09-14-2023 End: 09-14-2023 ambulatory Lucila Arnett Other [facility] Other Start: 09-14-2023 Office outpatient vi sit 25 minutes Lucila Arnett [facility] Start: 09-14-2023 End: 09-14-2023 Patient encounter procedure [facility] Start: 08-09-2023 End: 08-09-2023 ambulatory Lucila Arnett Other [facility] Other Start: 08-09-2023 Telephone encounter Lucila Dan her [facility] Start: 08-03-2023 End: 08-03-2023 ambulatory Lucila Arnett Other [facility] Other Start: 08-03-2023 Office outpatient ne w 30 minutes Lucila Arnett [facility] Start: 08-03-2023 Telephone encounter Lucila Dan her [facility] [employer] Start: 07-12-2020 End: 07-13-[address] MOI RUEDA Facility:[facility] Start: 06-25-2020 End: 06-25-[address] MOI RUEDA Facility:[facility] Start: 04-30-2020 End: 05-01-[address] MOI RUEDA Facility:[facility] Start: 04-29-2020 End: 04-29-[address] MOI RUEDA Facility:[facility] Procedures Date Procedure Procedure Detail Performing Clinician Start: 07-07-2024 ALL CBC WITH AUTO DIFF Moi Rueda DO Work Phone: Start: 07-06-2024 [facility] CBC WITH PLATEL ET NO DIFFERENTIAL Moi Mcwilliamso DO Work Phone: Start: 07-06-2024 [facility] DRUG SCREEN RAPI D (URINE) Moi Mcwilliamso DO Work Phone: Start: 06-30-2024 Urnls dip stick/tabl et rgnt non-auto w/o micrscp Moi Marybeth DO Work Phone: Start: 06-23-2024 Urnls dip stick/tabl et rgnt non-auto w/o micrscp Moi Marybeth DO Work Phone: Start: 06-05-2024 Urnls dip stick/tabl et rgnt non-auto w/o micrscp Moi Marybeth DO Work Phone: Start: 05-03-2024 ALL CBC WITH AUTO DIFF Moi Marybeth DO Work Phone: Start: 08-20-2004 Tooth extraction MADI ARNETT uterine ablation LUCLIA BAH Plan of Treatment Date Care Activity Detail Author Start: 06-30-2024 End: 06-30-2024 Patient encounter procedure 06/30/2024 10:30 AM EST Routine [facility] [address] [place] [address] Moi Rueda, DO [address] [place] [address] [facility] Start: 06-30-2024 End: 06-30-2024 Professional / ancillary services management 06/30/2024 10:00 AM EST Ancillary Procedure [facility] [address] [place] [address] [facility] Start: 06-23-2024 End: [...] AM EDT Routine [facility] [address] [place] [id number] Moi Rueda, DO [address] [place] [address] Arrived [facility] Comment on above: Arrived Start: 05-19-2024 End: 05-19-2024 Patient encounter procedure 05/19/2024 10:30 AM EDT Routine [facility] [address] [place] [address] Moi Rueda, DO [address] [place] [address] [facility] Start: 05-08-2024 End: 05-08-2024 Patient encounter procedure 05/08/2024 11:10 AM EDT Routine [facility] [address] [place] [address] Moi Rueda, DO [address] [place] [address] [facility] Start: 05-08-2024 End: 05-08-2024 Professional / ancillary services management 05/08/2024 10:30 AM EDT Ancillary Procedure [facility] [address] [place] [id number] [facility] Start: 11-02-2023 End: 11-01-2024 MR Pelvis WO and W contrast IV MRI PELVIS WITH AND WITHOUT CONTRAST Imaging Routine Endometriosis Pelvic pain Expected: 11/02/2023, Expires: 11/01/2024 [facility] Comment on above: Expected: 11/02/2023 , Expires: 11/01/2024 Start: 10-17-2023 Patient referral [facility] Work Phone: Start: 04-20-2023 COVID-19 VACCINE ( season) COVID-19 VACCINE (2022- season) [facility] Start: 04-20-2023 Influenza vaccination INFLUENZA VACC INE (#1) [facility] Start: 2017 Screening for malign ant neoplasm of cervix CERVICAL CANCER SCREENING DISCUSSION [facility] Start: 11-08-2015 Hepatitis B vaccination HEP B VACCINE (1 of 3 - 19+ 3-dose series) [facility] Start: 11-08-2015 Third diphtheria, tetanus and acellular pertussis (DTaP) vaccination TDAP (ADULT) [facility] Start: 2012 Screening for Chlamy david trachomatis CHLAMYDIA SCREEN [facility] Start: 11-08-2011 HIV screening HIV SCREENING DISCUSSION [facility] Start: 11-08-2011 Vaccination for kale n papillomavirus HPV VACCINE ADOL (1 - 3-dose series) [facility] Start: 1996 Hepatitis C screening HEPATITI S C VIRUS SCREENING [facility] Start: 1996 Screening for Chlamy david trachomatis GONORRHEA SCREEN [facility] Start: 1996 Tetanus vaccination TETANUS [facility] Patient referral [facility] Work Phone: Payers Date Payer Category Payer Medicaid [id number] 2024 Medicaid [id number] 2023 [employer] ( and others) [id number] 2023 [employer] ( and others) [facility] [id number] 2023-Present [address] [place] [address] [id number] 2023 [employer] ( and others) [id number] 1996 Unknown [id number] 93 1996 Unknown [id number] 2.16.840.1.852954.3.579.2.5 93 1996 Unknown [id number] 2.16.840.1.882100.3.579.2.5 93 1996 Unknown [id number] 2.16.840.1.114931.3.579.2.5 93 1996 Unknown [id number] 2.16.840.1.315990.3.579.2.5 93 1996 Unknown [id number] 2.16.840.1.471780.3.579.2.5 94 1996 Unknown [id number] 2.16.840.1.923380.3.579.2.7 27 1996 Unknown [id number] 2.16.840.1.081428.3.579.2.1 143 1996 Unknown [id number] 2.16.840.1.461212.3.579.2.1 143 1996 Unknown [id number] 2.16.840.1.907831.3.579.2.1 143 1996 Unknown [id number] 2.16.840.1.513770.3.579.2.1 143 1996 Unknown [id number] 2.16.840.1.728065.3.579.2.1 143 1996 Unknown [id number] 2.16.840.1.226098.3.579.2.1 143 1996 Unknown [id number] 2.16.840.1.047016.3.579.2.1 143 1996 Unknown [id number] 2.16.840.1.243643.3.579.2.1 286 1996 Unknown [id number] 2.16.840.1.966850.3.579.2.1 286 1996 Unknown [id number] 2.16.840.1.601715.3.579.2.1 286 1996 Unknown [id number] 2.16.840.1.280706.3.579.2.1 286 1996 Unknown [id number] 2.16.840.1.608844.3.579.2.1 286 1996 Unknown [id number] 2.16.840.1.760613.3.579.2.1 286 1996 Unknown [id number] 2.16.840.1.669543.3.579.2.1 259 1996 Unknown [id number] 2.16.840.1.973188.3.579.2.1 259 1996 Unknown [id number] 2.16.840.1.413215.3.579.2.1 259 1996 Unknown [id number] 2.16.840.1.630257.3.579.2.1 259 1996 Unknown [id number] 2.16.840.1.715205.3.579.2.1 259 1996 Unknown [id number] 2.16.840.1.463115.3.579.2.1 259 1996 Unknown [id number] 2.16.840.1.529774.3.579.2.1 259 1996 Unknown [id number] 2.16.840.1.893495.3.579.2.1 259 1996 Unknown [id number] 2.16.840.1.314771.3.579.2.1 259 1996 Unknown [id number] 2.16.840.1.155982.3.579.2.1 259 1996 Unknown [id number] 2.16.840.1.139808.3.579.2.1 259 1996 Unknown [id number] 2.16.840.1.289344.3.579.2.1 259 1996 Unknown [id number] 2.16.840.1.982643.3.579.2.1 259 1996 Unknown [id number] 2.16.840.1.518919.3.579.2.1 259 1996 Unknown [id number] 2.16.840.1.688827.3.579.2.1 259 1996 Unknown [id number] 2.16.840.1.185948.3.579.2.1 259 1959 [employer] others) [id number] 1958 [employer] others[employer] [id number] [employer] ( [employer] others) [id number] 2.16.840.1.238863.19 Social History Date Type Detail Facility Start: 11-02-2023 Sex Assigned At [facility] Start: 09-30-2017 End: 11-02-2023 Tobacco smoking status NHIS Never smoked tobacco [facility] Start: 11-02-2023 Tobacco use and exposure Smokeless tobacco non-user [facility] Start: 11-02-2023 Alcoholic beverage intake Lifetime non-drinker (finding) [facility] Start: 11-02-2023 History of Social function [facility] Start: 1995 Sex assigned at Not on file [facility] Start: 1995 Sex Assigned At [facility] Start: 12-10-2023 Tobacco smoking status NHIS Unknown if ever smoked [facility] Start: 12-10-2023 Alcohol intake Alcohol Use Details [facility] Start: 09-04-2023 Sexual Orientation Lesbian, lynch or homosexual [facility] Start: 11-03-2023 [facility] Medical Equipment Procedure Code Equipment Code Equipment Origin al Text Equipment Identifier Dates 1 strip by In Vi tro route Daily Use in the morning prior to breakfast, 1 hour after each meal for a total of 4times daily. [id number] Start: 04-24-2024 End: 05-24-2024 1 each by In Vit ro route Daily Use to check FSBS four times daily [id number] Start: 04-24-2024 End: 05-24-2024 Clinical Notes 06-25-2020 to 06-30-2024 Zakiyamary Traylor, AMRIK - 06/30/2024 10:30 AM Longerick Winniekaelyn, SHORT FILLER BUNCH MACHINE OPERATOR - 06/23/2024 10:10 AM MAULIKmegan Traylor, SHORT FILLER BUNCH MACHINE OPERATOR - 06/05/2024 10:40 AM Francisco Chen MD - 11/02/2023 2:30 PM EDT Note Date & Type Note Facility 06-30-2024 History of Present illness Narrative Reason for [...] ondansetron 4 mg disintegrating tablet - Active Ybrfufnw-Qoj-Hw-FA ( 1 + IRON PO) Daily RT [...] Past Medical History: Diagnosis Date Anxiety Depression ([facility]) Endometriosis OCD (obsessive compulsive disorder) ([facility]) PTSD (post-traumatic stress disorder) ([facility]) HISTORY PAST MEDICAL HISTORY SOCIAL HISTORY Past Medical History: Diagnosis Date Anxiety Depression ([facility]) Endometriosis OCD (obsessive compulsive disorder) ([facility]) PTSD (post-traumatic stress disorder) ([facility]) Social History Tobacco Use Smoking [...] nursing note reviewed. Exam conducted with a procedure analyst present. Vitals: There is no height or weight on file to calculate BMI. BP: 110/70 Patient's last menstrual period was 10/20/2023. ASSESSMENT & PLAN ICD-10-CM 1. Third trimester Z34.93 POCT urinalysis dipstick manually resulted CANCELED: Strep B DNA probe, amplification Patient presents today for a routine obstetrics appointment. Patient is currently 36w2d with a Estimated Date of Delivery: 07/26/24. Patient desires to have pelvic exam today. Patient to have IOL on 07/06/24 0000 (midnight). Patient signed consents prior to leaving office and nursing called [facility] to confirm patient is on the books. Spoke with Connie Scratcher who will reach out to patients insurance company as patient voiced her employer is inquiring as to when patient is going to return to work . Patient to return to clinic for post appointment. Documented by Zakiya Traylor LPN on behalf of: Moi Rueda DO documented in this encounter [facility] 06-23-2024 History of Present illness Narrative Reason [...] ondansetron 4 mg disintegrating tablet - Active Rrwzmrcw-Ekm-Zd-FA ( 1 + IRON PO) Daily RT [...] compulsive disorder) (CMS/HCC) PTSD (post-traumatic stress disorder) (CMS/HCC) HISTORY PAST MEDICAL HISTORY SOCIAL HISTORY Past Medical History: Diagnosis Date Anxiety Depression (CMS/HCC) Endometriosis OCD (obsessive compulsive disorder) ([facility]/H[facility]) PTSD (post-traumatic stress disorder) ([facility]) Social History Tobacco Use Smoking [...] nursing note reviewed. Exam conducted with a procedure analyst present. Vitals: There is no height or [...] having IOL on 07/06/24 @ 0000. Called [facility] and patient is on the [...] by Zakiya Traylor LPN on behalf of: Moi Rueda DO documented in this encounter [facility] 06-05-2024 History of Present illness Narrative [...] ondansetron 4 mg disintegrating tablet - Active Vxjvcmot-Dtj-St-FA ( 1 + IRON PO) Daily RT [...] compulsive disorder) (CMS/HCC) PTSD (post-traumatic stress disorder) (CMS/HCC) HISTORY PAST MEDICAL HISTORY SOCIAL HISTORY Past Medical History: Diagnosis Date Anxiety Depression (CMS/HCC) Endometriosis OCD (obsessive compulsive disorder) (CMS/HCC) PTSD (post-traumatic stress disorder) (CMS/HCC) Social History Tobacco Use Smoking status: Not [...] nursing note reviewed. Exam conducted with a procedure analyst present. Vitals: There is no height or [...] by Zakiya Traylor LPN on behalf of: Moi Rueda DO documented in this encounter [facility] 11-19-2023 Evaluation + Plan note Diagnostic Tests PendingT3 Free 11/19/23Thyroid Perox.tpo Ab 11/19/23TgAb+Thyroglobulin,CHING or ARLEN 11/19/23 [facility] 11-02-2023 History of Present illness Narrative GYNECOLOGY CONSULT NOTE REASON FOR VISIT Endometriosis Pelvic pain HISTORY OF PRESENT ILLNESS Ms. Medrano is a 27 y.o. (NSVDx2) who presents for consultation regarding endometriosis, pelvic pain. Records review: Moved back from [place] to [place] ([place]) First diagnosed in 2018 Has had [...] trying for another now. No BA in [place] Partner has not had a SA yet [...] TENS unit Already has a muscle relaxer Cheri Chen MD 60 minutes were spent with the patient today. documented in this encounter [facility] 09-14-2023 Evaluation note Encounter Date [...] educated on the risks and benefits of fpc use. Risk assessment was done. Patient is [...] Pt to call with any worsening symptoms. [facility] Other 12-21-2023 Evaluation note* Encounter Date Diagnosis Assessment Notes Treatment Notes Treatment Clinical Notes Jul, Generalized anxiety disorder (ICD-10 - F41.1) Jul, Endometriosis (ICD-1 0 - N80.9) [facility] Other 12-15-2023 Evaluation note* Encounter Date Diagnosis [...] educated on the risks and benefits of fpc use. Risk assessment was done as well [...] intractable, unspecified migraine type (ICD-10 - G43.909) [facility] Other 11-06-2020 NoteOPERATIVE NOTE OPERATION DATE: 06-25-20 ANESTHETIC:General. GI TECHNICIAN:None. PREOPERATIVE DIAGNOSIS: 1. Dyspareunia. 2. Right [...] lap, and needle counts were correct x2. [facility] Signed and Approved by: DR MOI RUEDA . 07/30/2020 13:02:00[facility] note* Clinical Note Date No Information [facility] Work Phone: Discharge summary* Clinical Note Date No Information [facility] Work Phone: [facility]No [facility] Other Evaluation note* Diagnosis Endometriosis- Primary Endometriosis, site unspecified Pelvic pain Unspecified symptom associated with female genital organs Myalgia of pelvic floor Dysmenorrhea Dyspareunia in female Nausea and vomiting, unspecified vomiting type Bladder pain Other symptoms involving urinary system Anxiety Anxiety state, unspecified [facility] Diagnosis Onset Date Resolution Status Depression acute Generalized anxiety disorder acute Obsessive compulsive disorder acute PTSD (post-traumatic stress disorder) acute Depression acute Endometriosis acute Generalized anxiety disorder acute Obsessive compulsive disorder acute PTSD (post-traumatic stress disorder) acute TBI (traumatic brain injury) acute [facility] Work Phone: Evaluation note* Type Assessment Date No Information [facility] Work Phone: Evaluation note* Diagnosis 32 weeks [...] gestation of [facility] Diagnosis Third trimester state, incidental documented [facility]* Clinical Note Date No Information [facility] Work Phone: History general Narrative - Reported* Type Description Date Medical History Anxiety Medical History Stage 4 Endometriosis Medical History Depression with manic episodes Medical History OCD Medical History PTSD Medical History TBI Surgical History Endometriosis surgery x2 Surgical History [place] teeth Surgical History Injections in cervix [facility] Other History of Present illness Narrative* Encounter Date Complaint History Of Prese nt Illness No Information [facility] Work Phone: Hospital course Narrative No data available for this section [facility] No data available for this section [facility] Date Instruction Additional Infor mation No Information [facility] Work Phone: Progress note No data available for this section [facility] Clinical Note Date No Information [facility] [employer] [place] Work Phone: Reason for referral (narrative)* Consultation (Routine) - New Request Specialty Diagnoses / Procedures Referred By Harris gautam Referred To Contact Psychology Diagnoses Pelvic pain Anxiety Cheri Chen MD [address] [place] [address] Oksana Luu, PhD [address] [place] [address] Referral ID Status Reason Start Date Expiration Date V isits Requested Visits Authorized [id number] New Request 11/02/2023 11/26/2024 1 1 * Consultation (Routine) - New Request Specialty Diagnoses / Procedures Referred By Contac t Referred To Contact Integrative Medicine Diagnoses Pelvic pain Nausea and vomiting, unspecified vomiting type Cheri Chen MD [address] [place] [address] Referral ID Status Reason Start Date Expiration Date V isits Requested Visits Authorized [id number] New Request 11/02/2023 11/26/2024 1 1 * Consultation (Routine) - New Request Specialty Diagnoses / Procedures [facility] Referred To Contact Gynecology Diagnoses Pelvic pain Myalgia of pelvic floor Bladder pain Cheri Chen MD [address] [place] [address] Referral ID Status Reason Start Date Expiration Date V isits Requested Visits Authorized [id number] New Request 11/02/2023 11/26/2024 1 1 * MRI/CAT Scan (Routine) - New Request Specialty Diagnoses / Procedures Referred By Harris gautam Referred To Contact Diagnoses Endometriosis Pelvic pain Procedures MRI PELVIS WITH AND WITHOUT CONTRAST [place] MRI, PELVIS, COMBO Cheri Chen MD [address] [place] [address] Referral ID Status Reason Start Date Expiration Date V isits Requested Visits Authorized [id number] New Request 11/02/2023 11/26/2024 1 1 [facility] Reason For Referral No Information [facility] Work Phone: Summary Purpose Family History Relationship [...] for Referral Reason *FU 08/06 CALL taryn elinangel Diagnosis 1 Endometriosis (N80.9 ) Referral Organization [facility] linmichoacano Referring Provider First Name Lucila Referring Provider Last Name Steveachealaina Referring Provider Specialty Nurse Pract itioner Referred Organization [facility] Referred Provider Jena Suresh Referred Address ,[place], [place],[address] Referred Provider Specialty OB - Gynecol ogy [...] intractable, unspecified migraine type (G43.909) Referral Organization [facility] Referring Provider First Name Lucila Referring Provider Last Name [facility] Referring Provider Specialty Nurse Pract itioner Referred Organization [facility] Referred Provider Herbie Arroyo Referred Address [address] [place], [place],[address] Referred Provider Specialty Neurology Referral Priority Routine [...] Diagnosis 1 Endometriosis (N80.9 ) Referral Organization [facility] Referring Provider First Name Lucila Referring Provider Last Name [facility] Referring Provider Specialty Nurse Pract itioner Referred Organization [facility] Referred Address [address] [place], [place],[address] Referred Provider Specialty Endocrinolog y Referral Priority [...] and content) DATE CREATED AUTHOR 12/15/2020 [facility] DATE CREATED AUTHOR AUTHOR'S ORGANIZ ATION 11/03/2023 [facility] DATE CREATED AUTHOR AUTHOR'S ORGANIZ ATION 11/20/2023 [facility] DATE CREATED AUTHOR AUTHOR'S ORGANIZ ATION 12/15/2023 [facility] DATE CREATED AUTHOR AUTHOR'S ORGANIZ ATION 04/01/2024 [facility] DATE CREATED AUTHOR AUTHOR'S ORGANIZ ATION 07/01/2024 [facility] dical Specialists EPIC REASON FOR VISIT (unrecogniz ed section and content) Reason Comments Consult Pt diagnosis with En dometriosis in 2018. Patient desire . Specialty Diagnoses / Procedures Referred By Harris t Referred To Contact MACHINE GREASER Diagnoses Endometriosis Lucila Arnett CNP [address] [facility] [place] [address] [facility] [address] [place] [address] Referral ID Status Reason Start Date Expiration Date V isits Requested Visits Authorized [id number] New Request 10/23/2023 11/16/2024 1 1 Reason Comments Routine Visit Care Teams (unrecognized sec tion and content) Team Status: Active Member Role Status Dates Lucila Arnett APRN WASHER ENGINEER-C Primary Care Provider Active Team Status: Inactive Member Role Status Dates Lucila Arnett APRN WASHER ENGINEER-C Attending Provider Act vinicius Start: September 14, 2023 End: September 14, 2023 Team Status: Inactive Member Role Status Dates Lucila Arnett APRN WASHER ENGINEER-C Primary Care Provider, Attending Provider Active Start: October 17, 2023 End: October 17, 2023 Team Status: Inactive Member Role Status Dates Lucila Arnett APRN WASHER ENGINEER-C Primary Care Provider, Attending Provider Active Start: November 14, 2023 End: November 14, 2023 Name Effective Dates (start - stop) Status Members No Information Key Sander Relationship Specialty Start Date End Date Lucila Arnett NP [address] [facility] [place] [address] [place] [address] PCP - General Family Medicine 11/11/23 Key Sander Relationship Specialty Start Date End Date Lucila Arnett NP [address] [place] [place] [address] PCP - General Family Medicine 11/11/23 Key Sander Relationship Specialty Start Date End Date Lucila Arnett NP [address] [facility] [place] [address] PCP - General Family Medicine 11/11/23 Key Sander Relationship Specialty Start Date End Date Lucila Arnett NP [address] [facility] [place] [address] PCP - General Family Medicine 11/11/23 Key Sander Relationship Specialty Start Date End Date Lucila Arnett NP [address] [facility] [place] [address] PCP - General Family Medicine 11/11/23 Key Sander Relationship Specialty Start Date End Date Lucila Arnett NP [address] [facility] [place] [address] PCP - General Family Medicine 11/11/23 Key Sander Relationship Specialty Start Date End Date Lucila Arnett NP [address] [facility] [place] [address] PCP - General Family Medicine 11/11/23 Goals [...] THE PRIMARY CLINICAL RECORDS. [facility]. provides no warranty or guarantee of the accuracy or completeness of information in this document.
[2024-08-01 12:32] LABS: Basophils Absolute Auto 0.1 10^3/uL (0.0-0.1); Basophils Percent Auto 1.2 % (0.2-2.0); Eosinophils Absolute Auto 0.3 10^3/uL (0.0-0.7); Eosinophils Percent Auto 4.3 % (0.9-7.0); Hemoglobin 12.4 g/dL (12.0-16.0); Immature Granulocytes Abs Auto 0.02 10^3/uL (0.00-0.03); Immature Granulocytes Pct Auto 0.3 % (0.0-0.5); Lymphocytes Absolute Auto 1.9 10^3/uL (1.2-3.8); Lymphocytes Percent Auto 28.8 % (20.5-60.0); Mean Corpuscular HGB Conc 31.8 g/dL (29.9-35.2); Mean Corpuscular Hemoglobin 29.1 pg (26.7-34.0); Mean Corpuscular Volume 91.5 fL (81.0-99.0); Mean Platelet Volume 9.1 fL (9.5-13.5); Monocytes Absolute Auto 0.8 10^3/uL (0.3-0.8); Monocytes Percent Auto 11.5 % (1.7-12.0); Neutrophils Absolute Auto 3.5 10^3/uL (1.4-6.5); Neutrophils Percent Auto 53.9 % (43.0-75.0); Platelet Count 358 10^3/uL (150-450); Red Blood Count 4.26 10^6/uL (4.20-5.40); Red Cell Distribution Width 13.4 % (11.0-15.0); White Blood Count 6.5 10^3/uL (4.0-11.0)
== END 2024-08-01 11:30 | disposition home or self-care (01) ==
LOC: US 11:29
PROVIDERS: PCP Nurse Practitioner Family; Visit Provider Obstetrics & Gynecology
DX: R10.2 Pelvic and perineal pain (principal); Z39.2 Encounter for routine postpartum follow-up
CPT/HCPCS: 36415; 76830; 85025

== ENCOUNTER 2024-08-29 12:23 | Outpatient (OUT) | payer OTHER, SELFPAY ==
[2024-08-29 14:02] LABS: Basophils Absolute Auto 0.1 10^3/uL (0.0-0.1); Basophils Percent Auto 1.2 % (0.2-2.0); Eosinophils Absolute Auto 0.1 10^3/uL (0.0-0.7); Eosinophils Percent Auto 2.8 % (0.9-7.0); Hematocrit 39.2 % (36.0-48.0); Hemoglobin 12.3 g/dL (12.0-16.0); Immature Granulocytes Abs Auto 0.02 10^3/uL (0.00-0.03); Immature Granulocytes Pct Auto 0.4 % (0.0-0.5); Lymphocytes Absolute Auto 1.6 10^3/uL (1.2-3.8); Lymphocytes Percent Auto 31.5 % (20.5-60.0); Mean Corpuscular HGB Conc 31.4 g/dL (29.9-35.2); Mean Corpuscular Hemoglobin 28.3 pg (26.7-34.0); Mean Corpuscular Volume 90.1 fL (81.0-99.0); Mean Platelet Volume 9.4 fL (9.5-13.5); Monocytes Absolute Auto 0.6 10^3/uL (0.3-0.8); Neutrophils Absolute Auto 2.6 10^3/uL (1.4-6.5); Neutrophils Percent Auto 52.1 % (43.0-75.0); Platelet Count 354 10^3/uL (150-450); Red Blood Count 4.35 10^6/uL (4.20-5.40); Red Cell Distribution Width 14.1 % (11.0-15.0)
[2024-08-29 14:28] LABS: Free T4 0.91 ng/dL (0.76-1.46)
[2024-08-29 14:31] LABS: Aspartate Amino Transferase 19 U/L (15-37); Estimated GFR (African America >60 (>=60 mL/min/1.73m^2); Estimated GFR (Non-African Ame >60 (>=60 mL/min/1.73m^2); Thyroid Stimulating Hormone 0.997 uIU/mL (0.358-3.740)
== END 2024-08-29 12:24 | disposition home or self-care (01) ==
LOC: LAB 12:25
PROVIDERS: PCP Nurse Practitioner Family; Visit Provider Obstetrics & Gynecology
DX: E34.9 Endocrine disorder, unspecified (principal); R60.9 Edema, unspecified
CPT/HCPCS: 36415; 82565; 84439; 84443; 84450; 84520; 85025

== ENCOUNTER 2025-01-13 12:32 | Outpatient (OUT) | payer OTHER, SELFPAY ==
--- OUTSIDE RECORDS SUMMARY | 2023-12-10 04:00 | XMS_ITS | Continuity of Care Document ---
Author Organization [facility] Address [address] [place] [address] Phone Care Team Providers Care Teaching Fellow Name Role Phone Hill Jacobsen DO Unavailable Unavailable Allergies, Adverse Reactions, Alerts Substance Reaction Status Criticality No Known Allergies Active No Inform ation Medications Medication Instructions Dosage Effective Dates (start - stop) Status Comments ondansetron 4 mg disintegrating tablet - Active doxepin 10 mg capsule - Acti ve tizanidine 4 mg tablet - Act vinicius meloxicam 7.5 mg tablet TAKE 1 TABLET BY MOUTH DAILY - Active amoxicillin 875 mg tablet TAKE 1 TABLET BY MOUTH EVERY 12 HOURS FOR 10 DAYS UNTIL ALL TAKEN - Active clonazepam 0.5 mg tablet TAKE 1 TABLET B Y MOUTH IN THE MORNING AND TAKE 2 TABLETS BY MOUTH AT BEDTIME - Active tizanidine 2 mg tablet TAKE 1 TABLET BY MOUTH THREE TIMES DAILY NEEDED - Active cyclobenzaprine 10 mg tablet - Active celecoxib 200 mg capsule - A ctive escitalopram 20 mg tablet - Active norethindrone acetate 5 mg tablet - Active trazodone 50 mg tablet - Act vinicius acetaminophen 300 mg-codeine 30 mg tablet - Active acetaminophen 325 mg tablet PLEASE SEE ATTACHED FOR DETAILED DIRECTIONS - Active amoxicillin 500 mg capsule - Active ibuprofen 600 mg tablet PLEASE SEE ATTAC HED FOR DETAILED DIRECTIONS - Active Ovidrel 250 mcg/0.5 mL subcutaneous syringe - Active Advance Directives Directive Yes / No Effective Date File Name No Information Encounters Encounter Description Practice Location Reason(s) For Visit Diagnoses Date Provider Providers Copied on Encounter [facility], [address], [place], [address], [place] tel:[phone] [place] No Information Ann-Marie Alejandre. [address], [address], [place], [place], [id number] , [place]. tel:[phone] Referring Provider: Debbie Stuart, [address], [place], [address]. tel:[phone] Family History Family Member Type Diagnosis Age At Onset No Information Payers Payer name Insurance type Covered constitution party ID Authoriza tion(s) No Information Social History Type Description Quantity Date Captured Comments Alcohol Use Details Unknown Caffeine Use Details Unknown Tobacco Use Status No Information Smoking Status No Information Sex Female Vital Signs Date / Time: Height Weight BMI Pulse Rate Blood Pressure Temperature Respiratory Rate Body Surface Area Head Circumference Head Circ. Percentile Wt./Harris. Percentile BMI percentile Pulse Ox Inhaled Ox 9:18 AM 101 /min 132/84 mm[Hg] 12 /min Chief Complaint And Reason For Visit No Information Reason For Referral Reason For Referral No Information History Of Present Illness Encounter Date Complaint History Of Prese nt Illness No Information Functional Status Date Functional Assessmen t No Information Instructions Date Instruction Additional Infor mation No Information Assessments Type Assessment Date No Information Patient Care Teams Name Effective Dates (start - stop) Status Members No Information
--- OUTSIDE RECORDS SUMMARY | 2025-01-01 04:45 | XMS_ITS ---
Author Organization [facility] Serv es Address [address] [facility] [place] [place] [address] Care Team Providers Care [employer] Worker Name Role Phone Wendi Alcazar Primary Care Provider JASPAL MAXWELL Unavailable [phone] REASON FOR VISIT 1 month f/u Encounters Encounter Location Date Provider Diagnosis [facility] [address] [place] [address] 01/01/2025 Wendi Alcazar Plan Of Treatment Next Appt Details Provider Name:Wendi Hinojosa david, 02/05/2025 11:00:00 AM, [address] [place], [address], Progress Notes * COLTON VERMA MDOB: 7 (29 yo F)Acc No.[id number]:01/01/2025 Behavioral Health Patient: COLTON SERRANO Provider: Valencia Alcazar :1995 A ge:29 Y S ex:Female Date:01/01/2025 Address:[address] [place] [address] [facility] Subjective: * Chief Complaints: * 1 . 1 month f/u bh. * Medical History: Objective: * Vitals: Assessment: Plan: * Treatment: * Images: * Electronic signature of RADHA Keita on 01/13/2025 at 12:36 PM EDT Sign off status: Pending * Provider: Valencia Alcazar Date: 0 01/01/2025 Generated for Sanket wolf/Esha/Unique on: 0 01/13/2025 12:36 PM EDT
--- OUTSIDE RECORDS SUMMARY | 2025-01-08 09:45 | XMS_ITS ---
Author Organization [facility] es Address [address] [place] [address] Care Team Providers Care Business Process Engineer Name Role Phone Wendi Alcazar Primary Care Provider JASPAL MAXWELL Unavailable REASON FOR VISIT Pt is a 29 year old female here today for a 1 month f/u, Pt states her depression has been really bad, Pt states she is not sleeping well at night at all, LM Medications Medication SIG (Take, Route, Frequency, Duration) Notes Start Date End Date Status Amphetamine-Dextroam phetamine 10 MG 1 tablet Orally once a day in the afternoon for 30 days fill per OARRS 01/08/2025 Active KlonoPIN 0.5 MG 1 tablet Orally Once a day Active Adderall XR 20 MG 1 capsule in the morning Orally Once a day for 30 days fill per OARRS 01/08/2025 Active tiZANidine HCl 2 MG 1 tablet at bedtime as needed Orally Once a day Not-Taking Baclofen 10 MG 1 tablet as needed Orally Twice a day Active Vital Signs Height 71 in 01/08/2025 Weight 150.0 lbs 01/08/2025 BMI 20.92 kg/m2 01/08/2025 Blood pressure systolic 125 mm Hg 01/09/20 25 Blood pressure diastolic 84 mm Hg 025 Oximetry 100 % 01/08/2025 Heart Rate 87 /min 01/08/2025 l Encounters Encounter Location Date Provider Diagnosis [facility] [address] [place] [address] 01/08/2025 Wendi Alcazar Attention deficit hyperactivity disorder (ADHD), unspecified ADHD type F90.9 ; Bipolar disorder, current episode mixed, moderate F31.62 and Generalized anxiety disorder F41.1 Assessments Encounter Date Diagnosis (ICD Code) Assessment Notes Treatment Notes Treatment Clinical Notes Section Notes 01/08/2025 Attention deficit hyperactivity disorder (ADHD), unspecified ADHD type (ICD-10 - F90.9) Recommended treatment is: _ FDA approved medication for this age group include Selective Serotonin Reuptake Inhibitors (SSRI) and Selective Norepinephrine Reuptake Inhibitors (SNRI). . Selective serotonin reuptake inhibitors? can cause nausea, headache, upset stomach, diarrhea, constipation, anxiety, irritability, and sexual dysfunction. . Please monitor for worsening of symptoms, especially suicidal ideations or morbid thoughts, and call office and or go to the emergency department immediately. Pt does not endorse exhibiting symptoms aligning with valdo. . The patient verbalizes understanding with all questions answered thoroughly and is in agreement with treatment plan. . Continue current treatment plan Patient/Guardian will call sooner if symptoms worsen. Patient understands to go to ER if needed if symptoms become severe. Crisis Intervention plan was discussed and agreed upon. Patient/Guardian will call 911 in case of emergency. Emergency contact information was provided to the patient/guardian. 01/08/2025 Bipolar disorder, current episode mixed, moderate (ICD-10 - F31.62) 01/08/2025 Generalized anxiety disorder (ICD-10 - F41.1) Plan Of Treatment Medication Medication Name Sig Start Date Stop Date Notes Amphetamine-Dextroampheta mine 10 MG 1 tablet Orally once a day in the afternoon for 30 days 01/08/2025 fill per OARRS Adderall XR 20 MG 1 capsule in the mor yahir Orally Once a day for 30 days 01/08/2025 fill per OARRS Treatment Notes Assessment Notes Attention deficit hyperactiv ity disorder (ADHD), unspecified ADHD type Recommended treatment is: _ FDA approved medication for this age group include Selective Serotonin Reuptake Inhibitors (SSRI) and Selective Norepinephrine Reuptake Inhibitors (SNRI). . Selective serotonin reuptake inhibitors? can cause nausea, headache, upset stomach, diarrhea, constipation, anxiety, irritability, and sexual dysfunction. . Please monitor for worsening of symptoms, especially suicidal ideations or morbid thoughts, and call office and or go to the emergency department immediately. Pt does not endorse exhibiting symptoms aligning with valdo. . The patient verbalizes understanding with all questions answered thoroughly and is in agreement with treatment plan. . Continue current treatment plan Patient/Guardian will call sooner if symptoms worsen. Patient understands to go to ER if needed if symptoms become severe. Crisis Intervention plan was discussed and agreed upon. Patient/Guardian will call 911 in case of emergency. Emergency contact information was provided to the patient/guardian. Next Appt Details Provider Name:Wendi miranda, 02/05/2025 11:00:00 AM, [address] [place], [address], Progress Notes * COLTON VERMA MDOB: 7 (29 yo F)Acc No.[id number]:01/08/2025 Behavioral Health Patient: COLTON SERRANO Provider: Valencia Alcazar :1995 A ge:29 Y S ex:Female Date:01/08/2025 Address:[address] [place] [address], [id number] Subjective: * Chief Complaints: * 1 . Pt is a 29 year old female here today for a 1 month f/u. 2. Pt states her depression has been really bad. 3. Pt states she is not sleeping well at night at all. 4. LM. * HPI: C onstitutional: Pt is being seen today for follow up via in-office visit. Pt is tolerating meds well and taking medications daily. . Pt states her depression is very bad and will be triggered by songs that remind her of her grandma who was her biggest support. She has been going thru testing for her youngest daughter who is having medical issues. . Pt denies mood fluctuation. Energy and motivation are stable. Depressive symptoms are not persistent. Denies episodes of having sadness, anhedonia, isolating behaviors, or crying spells. Anxiety controlled. Concentration intact without distractibility. . Sleeping is flucuating based on pain and depression. Denies Nightmares. Appetite is good. . Denies Euphoria. Pervasive irritability is controlled today. Meaningful relationships intact. Denies increased goal-oriented behavior or increase in purposeless activity. Stay at home. . Denies suicidal or homicidal ideation or plan. No morbid thoughts. Interpersonal issues discussed. Support provided. Insight oriented/ Behavior modifying/ Supportive therapy. . Plan:. * ROS: C ONSTITUTIONAL: No fever, chills, sweats, weakness SKIN: No jaundice, rash, lesions, petechiae GASTROINTESTINAL: No nausea, vomiting, diarrhea, or GI bleeding MUSCULOSKELETAL: No muscle pain or weakness NEUROLOGIC: No headache, dizziness, numbness, or weakness . * Medical History: * Medications: T aking Baclofen 10 MG Tablet 1 tablet as needed Orally Twice a day , Taking Adderall XR 20 MG Capsule Extended Release 24 Hour 1 capsule in the morning Orally Once a day , Notes to Pharmacist: increased dosage fill per OARRS, Taking Amphetamine-Dextroamphetamine 10 MG Tablet 1 tablet Orally once a day in the afternoon , Notes to Pharmacist: new medications, Taking KlonoPIN 0.5 MG Tablet 1 tablet Orally Once a day , Notes: no refills needed at this time. Prescribed by other PCP, Not-Taking/PRN tiZANidine HCl 2 MG Tablet 1 tablet at bedtime as needed Orally Once a day , Medication List reviewed and reconciled with the patient Objective: * Vitals: H t: 71 in, Wt: 150.0 lbs, BMI:20.92Index, BP: 125/84 mm Hg, SaO2:100%, HR: 87 /min. l. * Examination: G eneral Examination: . MENTAL STATUS EXAM: . Appearance: Appropriately dressed and groomed, good eye contact, cooperative, pleasant Behavior/Motor Activity: Normal Gait/Station: Within normal limits BH Speech: Normal Mood: Good Affect: Full Thought processes/Associations: Logical and goal directed Thought Content: Non-psychotic Cognition/Attention/Memory/Concentration: Alert and oriented x 4; grossly intact attention; memory-recent/remote judged adequate by interviewer Insight: Good Judgement: Good BH language: Within normal limits Fund of Knowledge: Adequate . . Assessment: * Assessment: 1. A ttention deficit hyperactivity disorder (ADHD), unspecified ADHD type - F90.9 (Primary)? 2. B ipolar disorder, current episode mixed, moderate - F31.62 3 . G eneralized anxiety disorder - F41.1 Plan: * Treatment: * Images: * Electronic signature of RADHA Keita on 01/13/2025 at 12:37 PM EDT Sign off status: Pending * Provider: Valencia Alcazar Date: 0 01/08/2025 Generated for Sanket wolf/Markell on: 01/13/2025 12:37 PM EDT History and Physical Notes * Examination Category Sub-Category Detail Notes Category Not es General Examination . MENTAL STATUS EXAM: . Appearance: Appropriately dressed and groomed, good eye contact, cooperative, pleasant Behavior/Motor Activity: Normal Gait/Station: Within normal limits Speech: Normal Mood: Good Affect: Full Thought processes/Associations: Logical and goal directed Thought Content: Non-psychotic Cognition/Attention/Memory/Con centration: Alert and oriented x 4; grossly intact attention; memory-recent/remote judged adequate by interviewer Insight: Good Judgement: Good language: Within normal limits Fund of Knowledge: Adequate .
--- OUTSIDE RECORDS SUMMARY | 2025-01-08 15:30 | XMS_ITS | Encounter Summary ---
Author Organization [facility] Address [address] [place] [address] Care Team Providers Care Automatic Packer Operator Name Role Phone Lucila Arnett NP Primary Care Provider Moi Rueda DO Unavailable Encounter Details Date Type Department Care Team (Late st Contact Info) Description 01/08/2025 3:30 PM EDT Office Visit [facility] [address] [facility] [address] [place] [id number] Leonel Marlow DO [address] [facility] [address] [place] [address] Encounter for drug screening Social History Tobacco Use Types Packs/Day Years Used Date Smoking Tobacco: Never Smokeless Tobacco: Never Comments Unknown Sex and Gender Information Value Date Recorded Sex Assigned at Not on file Legal Sex Female 7:02 PM EDT Gender Identity Not on file Sexual Orientation Not on file documented as of this encounter Last Filed Vital Signs Vital Sign Reading Time Taken Comments Blood Pressure - - Pulse - - Temperature - - Respiratory Rate - - Oxygen Saturation - - Inhaled Oxygen Concentration - - Weight 67.6 kg (149 lb) 01/08/2025 3:39 PM EDT Height - - Body Mass Index 20.79 10/19/2023 8:20 AM EST documented in this encounter Plan of Treatment Not on file documented as of this encounter Visit Diagnoses Diagnosis Encounter for drug screening documented in this encounter Care Teams Automatic Packer Operator Relationship Specialty Start Date End Date Lucila Arnett NP [address] [place] [address] [place] [address] PCP - General Family Medicine 11/11/23 Moi Rueda DO [address] [place] [address] Lizbeth Bautista [place] [id number] PCP - FFS [facility] 08/20/24 documented as of this encounter
--- OUTSIDE RECORDS SUMMARY | 2025-01-13 12:36 | XMS_ITS | Encounter Summary ---
Author Organization [facility] Address [address] [place] [address] Care Team Providers Care Design Painter Name Role Phone VidyaJaspal foley Fay MICROBIOLOGY SOIL SCIENTIST Primary Care Provider Won Rueda DO Unavailable Encounter Details Date Type Department Care Team (Late st Contact Info) Description 03/13/2024 Clinisync Result Encounter [facility] External Department Unsolicited Won Rueda DO [address] [facility] [address] [place] [id number] Social History Tobacco Use Types Packs/Day Years Used Date Smoking Tobacco: Never Assessed Comments Yes Sex and Gender Information Value Date Recorded Sex Assigned at Not on file Legal Sex Female 7:02 PM EDT Gender Identity Not on file Sexual Orientation Not on file documented as of this encounter Plan of Treatment Not on file documented as of this encounter Procedures Procedure Name Priority Date/Time Associated Diagnosis Comments US OB CERVICAL LENGTH 03/13/2024 11:29 AM EDT documented in this encounter Results * US OB CERVICAL LENGTH (03/13/2024 11:29 AM EDT) Anatomical Region Laterality Modality Other 03/13/2024 11:2 9 AM EDT Narrative 03/13/2024 11:31 AM EDT The [address] [address] Ultrasound Report Signed Patient: GOLDIE VERMA MR#: [id number] : 1995 Acct:[id number] Age/Sex: 28 / F ADM Date: 03/13/24 Loc: [facility] Attending Dr: Won Rueda D.O. Ordering Physician: Won Rueda D.O. Date of Service: 03/13/24 Procedure(s): US OB cervical length Accession Number(s): [id number] cc: Won Rueda D.O.; JASPAL MAXWELL [place] [address] Patient Name: GOLDIE VERMA MRN: [facility]:[id number] date: 1995 Sex: F Assigned Patient Location: [facility] Current Patient Location: [facility] Accession/Order Number: [id number] Exam Date: 03/13/2024 10:53 Report Date: 03/13/2024 11:29 At the request of: WON RUEDA Procedure: US OB cervical length EXAMINATION: US OB cervical length HISTORY: HISTORY OF PRE-TERM DELIVERY COMPARISON: 12/26/2023 FINDINGS: position: Cephalic Cervix: 4.5 cm closed Clinical age: 20 weeks 5 days US/US OB cervical length IMPRESSION: Closed cervix measuring 4.5 cm in length Electronically authenticated by: DARLINE ESPITIA Date: 03/13/2024 11:29 Dictated By: Darline Espitia M.D. Signed By: 03/13/24 1131 DD/ 1129 TD/TT: Noc Technician: Procedure Note Radiology, Radiologist, MD - 03/13/2024 [place] [address] Ultrasound Report Signed Patient: GOLDIE VERMAMR#: [id number] : 1995Acct:[id number] Age/Sex: 28 / FADM Date: 03/13/24 Loc: [facility] Attending Dr: Won Rueda D.O. Ordering Physician: Won Rueda D.O. Date of Service: 03/13/24 Procedure(s): US OB cervical length Accession Number(s): [id number] cc: Won Rueda D.O.; JASPAL MAXWELL [place] [address] Patient Name: GOLDIE VERMA MRN: [id number] date: 1995 Sex: F Assigned Patient Location: [facility] Current Patient Location: [facility] Accession/Order Number: [id number] Exam Date: 03/13/2024 10:53 Report Date: 03/13/2024 11:29 At the request of: WON RUEDA Procedure: US OB cervical length EXAMINATION: US OB cervical length HISTORY: HISTORY OF PRE-TERM DELIVERY COMPARISON: 12/26/2023 FINDINGS: position: Cephalic Cervix: 4.5 cm closed Clinical age: 20 weeks 5 days US/US OB cervical length IMPRESSION: Closed cervix measuring 4.5 cm in length Electronically authenticated by: DARLINE ESPITIA Date: 03/13/2024 11:29 Dictated By: Darline Espitia M.D. Signed By:03/13/24 1131 DD/ 1129 TD/TT: Noc Technician: us Won Rueda DO [facility] Final Result documented in this encounter Visit Diagnoses Not on filedocumented in this encounter Care Teams Design Painter Relationship Specialty Start Date End Date Jaspal Maxwell NP [address] [place] [address] PCP - General Family Medicine 11/11/23 Won Rueda DO [address] [place] [address] [place] [address] PCP - FFS State [facility] 08/20/24 documented as of this encounter
--- OUTSIDE RECORDS SUMMARY | 2025-01-13 12:36 | XMS_ITS | Encounter Summary ---
Author Organization [facility] tem Address [id number] [address] [place] [address] Care Team Providers Care Mat Repairer Name Role Phone Unavailable Primary Care Provider Unavailabl e Encounter Details Date Type Department Care Team (Late st Contact Info) Description 03/25/2024 Orders Only Maternal- Medicine at [facility] [address] [place] [phone] Darcie Nina, JOSESITO Social History Tobacco Use Types Packs/Day Years Used Date Smoking Tobacco: Never Smokeless Tobacco: Never Alcohol Use Standard Drinks/Week Comments Not Currently 0 (1 standard drink = 0.6 oz pur e alcohol) Hunger Screening Answer Date Recorded Within the past 12 months we worried whether our food would run out before we got money to buy more. Never True 02/25/2024 Within the past 12 months th e food we bought just didn't last and we didn't have money to get more. Never True 02/25/2024 Comments Yes Sex and Gender Information Value Date Recorded Sex Assigned at Not on file Legal Sex Female 3:34 PM EDT Gender Identity Not on file Sexual Orientation Not on file documented as of this encounter Plan of Treatment Not on file documented as of this encounter Visit Diagnoses Not on filedocumented in this encounter
--- OUTSIDE RECORDS SUMMARY | 2025-01-13 12:36 | XMS_ITS | Encounter Summary ---
Author Organization [facility] Address [address] [place] [address] Care Team Providers Care Electrical Subcontractor Name Role Phone Lucila Arnett NP Primary Care Provider Moi Rueda DO Unavailable Encounter Details Date Type Department Care Team (Late st Contact Info) Description 02/27/2024 Abstract [facility] BCP OB [address] [place] [address] Moi Rueda DO [address] [place], [facility] Social History Tobacco Use Types Packs/Day Years [...] on filedocumented in this encounter Care Teams Electrical Subcontractor Relationship Specialty Start Date End Date Lucila Arnett NP [address] [facility] [address] PCP - General Family Medicine 11/11/23 Moi Rueda DO [address] [place], [place] [id number] PCP - FFS State CONTINUOUS MINER OPERATOR HELPER 08/20/24 documented as of this encounter
--- OUTSIDE RECORDS SUMMARY | 2025-01-13 12:36 | XMS_ITS | Clinical Summary ---
Author Organization [facility] tem Address [id number] [address] [place] [address] Care Team Providers Care Chain Saw Mechanic Name Role Phone Unavailable Primary Care Provider Unavailabl e Allergies Active Allergy Reactions Criticality Noted Date Comments Galcanezumab-Gnlm 01/11/2024 Lavender Oil 01/11/2024 Tramadol 01/11/2024 Medications [id number] c acid ( 19) 29 mg iron- 1 mg tablet,chewable Chew 1 tablet and swallow in the morning. Active magnesium (MAGTAB) 84 mg tablet extended release CR tablet Take 1 tablet (84 mg total) by mouth in the morning. Active ondansetron (ZOFRAN) 4 mg/5 mL solution Take by mouth once. Active omeprazole (PriLOSEC) 20 mg capsule Take 1 capsule (20 mg total) by mouth in the morning. Active aspirin 81 mgIndications:1 8 weeks gestation of ,Histo ry of placenta abruption,Histo ry of delivery, currently Take 1 tablet once a day until 36 weeks gestation 30 tablet 6 4 Active Active Problems Problem Noted Date Diagnosed Date Echogenic intracardiac focus of fetus on ultrasound 02/25/2024 Prior with placent a abruption in first trimester, antepartum 01/21/2024 PTSD (post-traumatic stress disorder) OCD (obsessive compulsive disorder) History of delivery, currently Endometriosis Family History Medical History Relation Name Comments Hypertension Brother Diabetes Maternal Grandfather Hypertension Maternal Grandfather Cancer Paternal Grandmother Relation Name Status Comments Brother Maternal Grandfather Paternal Grandmother Social History Tobacco Use Types Packs/Day Years Used Date Smoking Tobacco: Never Smokeless Tobacco: Never Tobacco Cessation:Counseling Given: Not Answered Alcohol Use Standard Drinks/Week Comments Not Currently [...] to get more. Never True 02/25/2024 Comments No Sex and Gender Information Value Date Recorded Sex Assigned at Not on file Legal Sex Female 3:34 PM EDT Gender Identity Not on file Sexual Orientation Not on file Last Filed Vital Signs Vital Sign Reading Time Taken Comments Blood Pressure 95/50 02/25/2024 1:18 PM EDT Pulse 58 02/25/2024 1:18 PM EDT Temperature - - Respiratory Rate - - Oxygen Saturation - - Inhaled Oxygen Concentration - - Weight 69.9 kg (154 lb 3.2 oz) 02/25/2024 1:18 P M EDT Height 180.3 cm (5' 11 ) 02/25/2024 1:18 PM EDT Body Mass Index 21.51 02/25/2024 1:18 PM EDT Plan of Treatment Health Maintenance Due Date Last Done Comments Depression Screening 2008 DTaP,Tdap and Td Vaccines (1 - Tdap) 11/08/2015 Pap Smear 2017 COVID-19 Vaccine ( season) 04/20/202401/2021, 05/04/2021 Adult BMI Screening 02/24/2025 02/25/2024 Tobacco Screening 02/24/2025 02/25/2024 Influenza Vaccine 04/20/2025 Medical Devices Not on file [place] [place] [address] [place]ICA[place]
--- OUTSIDE RECORDS SUMMARY | 2025-01-13 12:36 | XMS_ITS | Encounter Summary ---
Author Organization [facility] Address [address] [place] [address] Care Team Providers Care French Binding Folder Name Role Phone Lucila Arnett ENHANCED ENVIRONMENTAL OPERATOR Primary Care Provider Moi Rueda DO Unavailable Encounter Details Date Type Department Care Team (Late st Contact Info) Description 12/11/2023 Abstract [facility] BCP OB [address] [place] [address] Debra Hughes LPN [address] [facility] [place] [id number] Social History Tobacco Use Types Packs/Day Years Used Date Smoking Tobacco: Never Assessed Comments Unknown Sex and Gender Information Value Date Recorded Sex Assigned at Not on file Legal Sex Female 7:02 PM EDT Gender Identity Not on file Sexual Orientation Not on file documented as of this encounter Plan of Treatment Not on file documented as of this encounter Visit Diagnoses Not on filedocumented in this encounter Care Teams French Binding Folder Relationship Specialty Start Date End Date Lucila Arnett NP [address] [facility] [address] [place], [place] [phone] PCP - General Family Medicine 11/11/23 Moi Rueda DO [address] [employer] [facility] [place], [place] [phone] PCP - FFS State DEBATE DIRECTOR 08/20/24 documented as of this encounter
--- OUTSIDE RECORDS SUMMARY | 2025-01-13 12:36 | XMS_ITS | Encounter Summary ---
Author Organization [facility] Address [address] [place] [address] Care Team Providers Care Manager Data Warehouse Name Role Phone Lucila Arnett NP Primary Care Provider Moi Rueda DO Unavailable Encounter Details Date Type Department Care Team (Late st Contact Info) Description 02/14/2024 Abstract [facility] BCP OB [address] [place] [address] Moi Rueda DO [address] [place], [facility] Social History Tobacco Use Types Packs/Day Years [...] on filedocumented in this encounter Care Teams Manager Data Warehouse Relationship Specialty Start Date End Date Lucila Arnett NP [address] [facility] [place] [address] PCP - General Family Medicine 11/11/23 Moi Rueda DO [address] [place], [place] [phone] PCP - FFS State ORDNANCE TECHNICIAN 08/20/24 documented as of this encounter
--- OUTSIDE RECORDS SUMMARY | 2025-01-13 12:36 | XMS_ITS | Encounter Summary ---
Author Organization [facility] Address [address] [place] [address] Care Team Providers Care Crystalizer Operator Name Role Phone Lucila Arnett NP Primary Care Provider Moi Rueda DO Unavailable Encounter Details Date Type Department Care Team (Late st Contact Info) Description 02/27/2024 Abstract [facility] BCP OB [address] [place] [address] Moi Rueda DO [address] [place], [facility] Social History Tobacco Use Types Packs/Day [...] on filedocumented in this encounter Care Teams Crystalizer Operator Relationship Specialty Start Date End Date Lucila Arnett NP [address] [facility] [place] [address] PCP - General Family Medicine 11/11/23 Moi Rueda DO [address] [place], [place] [id number] PCP - FFS State SERVICE TEAM LEADER 08/20/24 documented as of this encounter
--- OUTSIDE RECORDS SUMMARY | 2025-01-13 12:36 | XMS_ITS | Encounter Summary ---
Author Organization [facility] Address [address] [place] [address] Care Team Providers Care Vocational Adviser Name Role Phone Lucila Arnett NP Primary Care Provider Moi Rueda DO Unavailable Encounter Details Date Type Department Care Team (Late st Contact Info) Description 01/30/2024 Abstract [facility] BCP OB [address] [place] [address] Moi Rueda DO [address] [place], [...] on filedocumented in this encounter Care Teams Vocational Adviser Relationship Specialty Start Date End Date Lucila Arnett NP [address] [facility] [place] [address] PCP - General Family Medicine 11/11/23 Moi Rueda DO [address] [place], [place] [phone] PCP - FFS State STORE GROUP MANAGER 08/20/24 documented as of this encounter
--- OUTSIDE RECORDS SUMMARY | 2025-01-13 12:36 | XMS_ITS | Encounter Summary ---
Author Organization [facility] Address [address] [place] [address] Care Team Providers Care Rn Delivery Name Role Phone Lucila Arnett NP Primary Care Provider Moi Rueda DO Unavailable Encounter Details Date Type Department Care Team (Late st Contact Info) Description 02/29/2024 Abstract [facility] BCP OB [address] [place] [address] Moi Rueda DO [address] [place], [facility]11 Social History Tobacco Use Types Packs/Day Years [...] on filedocumented in this encounter Care Teams Rn Delivery Relationship Specialty Start Date End Date Lucila Arnett NP [address] [facility] [place] [address] PCP - General Family Medicine 11/11/23 Moi Rueda DO [address] [place], [place] [phone] PCP - FFS State MEDICAL ORDERLY 08/20/24 documented as of this encounter
--- OUTSIDE RECORDS SUMMARY | 2025-01-13 12:36 | XMS_ITS | Encounter Summary ---
Author Organization [facility] Address [address] [place] [address] Care Team Providers Care Perpetual Inventory Clerk Name Role Phone Lucila Arnett NP Primary Care Provider Moi Rueda DO Unavailable Encounter Details Date Type Department Care Team (Late st Contact Info) Description 02/26/2024 Abstract [facility] BCP OB [address] [place] [address] Moi Rueda DO [address] [place], [facility]11 Social History Tobacco Use Types Packs/Day Years [...] on filedocumented in this encounter Care Teams Perpetual Inventory Clerk Relationship Specialty Start Date End Date Lucila Arnett NP [address] [facility] [place] [address] PCP - General Family Medicine 11/11/23 Moi Rueda DO [address] [place], [place] [id number] PCP - FFS State COMMUNITY HEALTH NURSE SUPERVISOR 08/20/24 documented as of this encounter
--- OUTSIDE RECORDS SUMMARY | 2025-01-13 12:36 | XMS_ITS | Encounter Summary ---
Author Organization [facility] Address [address] [place] [address] Care Team Providers Care Certified Medical Transcriptionist Name Role Phone MelquiadesJaspal Fay SECONDS HANDLER Primary Care Provider Won Rueda DO Unavailable Encounter Details Date Type Department Care Team (Late st Contact Info) Description 12/13/2023 Clinisync Result Encounter [facility] External Department Unsolicited Won Rueda DO [address] [facility] [place] [address] Social History Tobacco Use Types Packs/Day Years [...] Priority Date/Time Associated Diagnosis Comments US OB TRANSVAGINAL 12/13/2023 1: 37 PM EDT documented in this encounter Results * US OB TRANSVAGINAL (12/13/2023 1:37 PM EDT) Anatomical Region Laterality Modality Other 12/13/2023 1:37 PM EDT Narrative 12/13/2023 1:40 PM EDT The [address] [address] Ultrasound Report Signed Patient: Goldie VERMA MR#: [id number] : 1995 Acct:[id number] Age/Sex: 28 / F ADM Date: 12/13/23 Loc: [facility] Attending Dr: Won Rueda D.O. Ordering Physician: Won Rueda D.O. Date of Service: 12/13/23 Procedure(s): US OB transvaginal Accession Number(s): [id number] cc: Won Rueda D.O.; JASPAL MAXWELL [place] [address] Patient Name: GOLDIE VERMA MRN: [id number] date: 1995 Sex: F Assigned Patient Location: [facility] Current Patient Location: [facility] Accession/Order Number: [id number] Exam Date: 12/13/2023 12:25 Report Date: 12/13/2023 13:37 At the request of: WON RUEDA Procedure: US OB transvaginal EXAMINATION: US OB transvaginal HISTORY: MISSED MENSES COMPARISON: No relevant comparison available. FINDINGS: GESTATIONAL SAC: Present and normal appearing. YOLK SAC: Present and normal appearing. POLE: Present and normal appearing. CARDIAC: Present. UTERUS: Normal size and appearance. OVARIES: Right: Corpus lutein cyst. Left: Not seen. CERVIX: 4.4 cm in length and closed. CUL-DE-SAC: Normal. OTHER: None. AGE BY LMP: 7 weeks 5 days SINA BY LMP: 07/26/2024 AGE BY US CRL: 7 weeks 0 days SINA BY US CRL: 07/31/2024 US/US OB transvaginal IMPRESSION: 1. Single live intrauterine . Electronically authenticated by: HARRISON SAXENA Date: 12/13/2023 13:37 Dictated By: Harrison Saxena M.D. Signed By: 12/13/23 1340 DD/ 1337 TD/TT: Campaign Assistant: Procedure Note Radiology, Radiologist, - 12/13/2023 [place] [address] Ultrasound Report Signed Patient: Goldie VERMAMR#: [id number] : 1995Acct:[id number] Age/Sex: 28 / FADM Date: 12/13/23 Loc: [facility] Attending Dr: Won Rueda D.O. Ordering Physician: Won Rueda D.O. Date of Service: 12/13/23 Procedure(s): US OB transvaginal Accession Number(s): [id number] cc: Won Rueda D.O.; JASPAL MAXWELL [facility] [address] [address] Patient Name: GOLDIE VERMA MRN: [id number] date: 1995 Sex: F Assigned Patient Location: [facility] Current Patient Location: [facility] Accession/Order Number: [id number] Exam Date: 12/13/2023 12:25 Report Date: 12/13/2023 13:37 At the request of: WON RUEDA Procedure: US OB transvaginal EXAMINATION: US OB transvaginal HISTORY: MISSED MENSES COMPARISON: No relevant comparison available. FINDINGS: GESTATIONAL SAC: Present and normal appearing. YOLK SAC: Present and normal appearing. POLE: Present and normal appearing. CARDIAC: Present. UTERUS: Normal size and appearance. OVARIES: Right: Corpus lutein cyst. Left: Not seen. CERVIX: 4.4 cm in length and closed. CUL-DE-SAC: Normal. OTHER: None. AGE BY LMP: 7 weeks 5 days SINA BY LMP: 07/26/2024 AGE BY US CRL: 7 weeks 0 days SINA BY US CRL: 07/31/2024 US/US OB transvaginal IMPRESSION: 1. Single live intrauterine . Electronically authenticated by: HARRISON SAXENA Date: 12/13/2023 13:37 Dictated By: Harrison Saxena M.D. Signed By:12/13/23 1340 DD/ 1337 TD/TT: Campaign Assistant: us Won Rueda DO [facility] Final Result documented in this encounter Visit Diagnoses Not on filedocumented in this encounter Care Teams Certified Medical Transcriptionist Relationship Specialty Start Date End Date Jaspal Maxwell NP [address] [facility] [place] [address] PCP - General Family Medicine 11/11/23 Won Rueda DO [address] [place] [address] [place] [address] PCP - FFS [facility] 08/20/24 documented as of this encounter
--- OUTSIDE RECORDS SUMMARY | 2025-01-13 12:36 | XMS_ITS | Encounter Summary ---
Author Organization [facility] Address [address] [place] [address] Care Team Providers Care Crane Operator Name Role Phone Lucila Arnett IRRIGATION DISTRICT MANAGER Primary Care Provider Moi Rueda DO Unavailable Encounter Details Date Type Department Care Team (Late st Contact Info) Description 11/22/2023 Abstract [facility] BCP OB [address] [place] [address] Debra Hughes LPN [address] [facility] [place], [place] [phone] Social History Tobacco Use Types Packs/Day Years [...] on filedocumented in this encounter Care Teams Crane Operator Relationship Specialty Start Date End Date Lucila Arnett NP [address] [facility] [address] [place], [place] [phone] PCP - General Family Medicine 11/11/23 Moi Rueda DO [address] [facility] [address] [place], [place] [phone] PCP - FFS State STRIP CUTTER 08/20/24 documented as of this encounter
--- OUTSIDE RECORDS SUMMARY | 2025-01-13 12:36 | XMS_ITS | Encounter Summary ---
Author Organization [facility] Address [address] [place] [address] Care Team Providers Care Shirt Maker Name Role Phone Lucila Arnett NP Primary Care Provider Moi Rueda DO Unavailable Encounter Details Date Type Department Care Team (Late st Contact Info) Description 02/27/2024 Abstract [facility] BCP OB [address] [place] [address] Moi Rueda DO [address] [place], [facility]11 Social History Tobacco Use Types Packs/Day Years [...] on filedocumented in this encounter Care Teams Shirt Maker Relationship Specialty Start Date End Date Lucila Arnett NP [address] [facility] [place] [address] PCP - General Family Medicine 11/11/23 Moi Rueda DO [address] [place], [place] [phone] PCP - FFS State STAKING ENGINEER 08/20/24 documented as of this encounter
--- OUTSIDE RECORDS SUMMARY | 2025-01-13 12:36 | XMS_ITS | Encounter Summary ---
Author Organization [facility] Address [address] [facility] [address] [place] [address] Care Team Providers Care Finish Off Operator Name Role Phone Lucila Arnett LOW PRESSURE BOILER TENDER Primary Care Provider Moi Rueda DO Unavailable Encounter Details Date Type Department Care Team (Late st Contact Info) Description 12/07/2023 Abstract [facility] BCP OB [address] [place] [phone] Aleshia Meyer MA [address] [place] [address] Social History Tobacco Use Types Packs/Day Years [...] on filedocumented in this encounter Care Teams Finish Off Operator Relationship Specialty Start Date End Date Lucila Arnett NP [address] [facility] [place] [address] PCP - General Family Medicine 11/11/23 Moi Rueda DO [address] [place], [place] [phone] PCP - FFS State FEDERAL MEDIATION COMMISSIONER 08/20/24 documented as of this encounter
--- OUTSIDE RECORDS SUMMARY | 2025-01-13 12:36 | XMS_ITS | Encounter Summary ---
Author Organization [facility] Address [address] [place] [address] [place] [address] Care Team Providers Care Hand Salter Name Role Phone Lucila Arnett STONE LAYOUT MARKER Primary Care Provider Moi Rueda DO Unavailable Encounter Details Date Type Department Care Team (Late st Contact Info) Description 12/03/2023 Abstract [facility] BCP OB [address] [place] [phone] Aleshia Meyer MA [address] [place] [address] Social History Tobacco Use Types Packs/Day Years [...] on filedocumented in this encounter Care Teams Hand Salter Relationship Specialty Start Date End Date Lucila Arnett NP [address] [facility] [place] [address] PCP - General Family Medicine 11/11/23 Moi Rueda DO [address] [place], [place] [phone] PCP - FFS State KNITTING TEACHER 08/20/24 documented as of this encounter
--- OUTSIDE RECORDS SUMMARY | 2025-01-13 12:36 | XMS_ITS | Encounter Summary ---
Author Organization [facility] Address [address] [place] [address] Care Team Providers Care Dish Up Person Name Role Phone Lucila Arnett NP Primary Care Provider Moi Rueda DO Unavailable Encounter Details Date Type Department Care Team (Late st Contact Info) Description 11/12/2023 Abstract [facility] [address] [place] [address] Unallocated, Noms Provider, [place] [address] Social History Tobacco Use Types Packs/Day Years [...] on filedocumented in this encounter Care Teams Dish Up Person Relationship Specialty Start Date End Date Lucila Arnett NP [address] [facility] [place] [address] PCP - General Family Medicine 11/11/23 Moi Rueda DO [facility] [address] [facility] [place], [place] [phone] PCP - FFS State VENDING MACHINE HOST/HOSTESS 08/20/24 documented as of this encounter
--- OUTSIDE RECORDS SUMMARY | 2025-01-13 12:37 | XMS_ITS | Encounter Summary ---
Author Organization [facility] Address [address] [place] [address] Care Team Providers Care Hand Cooper Helper Name Role Phone Melquiades Jaspal Fay CHANG Primary Care Provider Won Rueda DO Unavailable Encounter Details Date Type Department Care Team (Late st Contact Info) Description 05/30/2024 Clinisync Result Encounter [facility] External Department Unsolicited Won Rueda DO [address] [facility] [place] [address] Social History Tobacco Use Types [...] Priority Date/Time Associated Diagnosis Comments US OB BPP W NON-STRESS 05/30/2024 11:11 AM EDT documented in this encounter Results * US OB BPP W NON-STRESS (05/30/2024 11:11 AM EDT) Anatomical Region Laterality Modality Other 05/30/2024 11:1 1 AM EDT Narrative 05/30/2024 11:14 AM EDT The [address] [address] Ultrasound Report Signed Patient: GOLDIE VERMA MR#: [id number] : 1995 Acct:[id number] Age/Sex: 28 / F ADM Date: 05/30/24 Loc: [facility] 254-[address]: Won Rueda D.O. Ordering Physician: Won Rueda D.O. Date of Service: 05/30/24 Procedure(s): US OB BPP w non-stress Accession Number(s): [id number] cc: Won Rueda D.O.; JASPAL MAXWELL [place] [address] Patient Name: GOLDIE VERMA MRN: [id number] date: 1995 Sex: F Assigned Patient Location: [facility] Current Patient Location: [facility] Accession/Order Number: [id number] Exam Date: 05/30/2024 10:43 Report Date: 05/30/2024 11:11 At the request of: WON RUEDA Procedure: US OB BPP w non-stress EXAMINATION: US OB BPP w non-stress HISTORY: History of labor O09.891 COMPARISON: No relevant comparison available. TECHNIQUE: Ultrasound biophysical profile was performed in the radiology department. non-reactive stress testing was performed by nursing staff in the birthing center. FINDINGS: BREATHING MOVEMENTS: 2 GROSS BODY MOVEMENTS: 2 TONE: 2 QUALITATIVE AMNIOTIC FLUID VOLUME: 2 PRESENTATION: CEPHALIC HEART RATE: 155.17 bpm AMNIOTIC FLUID VOLUME: 14.2 cm GESTATIONAL AGE: 30 weeks 6 days US/US OB BPP w non-stress IMPRESSION: Total biophysical profile score: 8/8 Electronically authenticated by: DARLINE ESPITIA Date: 05/30/2024 11:11 Dictated By: Darline Espitia M.D. Signed By: 05/30/24 1114 DD/ 1111 TD/TT: V Belt Skiver: Procedure Note Radiology, Radiologist, - 05/30/2024 [place] [address] Ultrasound Report Signed Patient: GOLDIE VERMAMR#: [id number] : 1995Acct:[id number] Age/Sex: 28 / FADM Date: 05/30/24 Loc: [facility] 254-[address]: Won Rueda D.O. Ordering Physician: Won Rueda D.O. Date of Service: 05/30/24 Procedure(s): US OB BPP w non-stress Accession Number(s): [id number] cc: Won Rueda D.O.; JASPAL MAXWELL [facility] [address] [place], [place] [address] Patient Name: GOLDIE VERMA MRN: [id number] date: 1995 Sex: F Assigned Patient Location: [facility] Current Patient Location: [facility] Accession/Order Number: [id number] Exam Date: 05/30/2024 10:43 Report Date: 05/30/2024 11:11 At the request of: WON RUEDA Procedure: US OB BPP w non-stress EXAMINATION: US OB BPP w non-stress HISTORY: History of labor O09.891 COMPARISON: No relevant comparison available. TECHNIQUE: Ultrasound biophysical profile was performed in the radiology department. non-reactive stress testing was performed by nursingstaff in the birthing center. FINDINGS: BREATHING MOVEMENTS: 2 GROSS BODY MOVEMENTS: 2 TONE: 2 QUALITATIVE AMNIOTIC FLUID VOLUME: 2 PRESENTATION: CEPHALIC HEART RATE: 155.17 bpm AMNIOTIC FLUID VOLUME: 14.2 cm GESTATIONAL AGE: 30 weeks 6 days US/US OB BPP w non-stress IMPRESSION: Total biophysical profile score: 8/8 Electronically authenticated by: DARLINE ESPITIA Date: 05/30/2024 11:11 Dictated By: Darline Espitia M.D. Signed By:05/30/24 1114 DD/ 1111 TD/TT: V Belt Skiver: us Won Rueda DO [facility] Final Result documented in this encounter Visit Diagnoses Not on filedocumented in this encounter Care Teams Hand Cooper Helper Relationship Specialty Start Date End Date Jaspal Maxwell NP [address] [facility] [address] [place] [phone] PCP - General Family Medicine 11/11/23 Won Rueda DO [address] [facility] [address] [place], [facility]11 PCP - FFS [facility] 08/20/24 documented as of this encounter
--- OUTSIDE RECORDS SUMMARY | 2025-01-13 12:37 | XMS_ITS | Encounter Summary ---
Author Organization [facility] Address [address] [place] [address] Care Team Providers Care V Belt Inspector Name Role Phone EllyJaspal [place] Fay LIVESTOCK PRODUCER Primary Care Provider Won Rueda DO Unavailable Encounter Details Date Type Department Care Team (Late st Contact Info) Description 06/05/2024 Clinisync Result Encounter [facility] External Department Unsolicited Won Rueda DO [address] [facility] [place] [address] Social History Tobacco Use Types [...] Procedure Name Priority Date/Time Associated Diagnosis Comments OB GROWTH 06/05/2024 11:22 AM EDT documented in this encounter Results * US OB GROWTH (06/05/2024 11:22 AM EDT) Anatomical Region Laterality Modality Other 06/05/2024 11:2 2 AM EDT Narrative 06/05/2024 11:25 AM EDT The [address] [address] Ultrasound Report Signed Patient: GOLDIE VERMA MR#: [id number] : 1995 Acct:[id number] Age/Sex: 28 / F ADM Date: 06/05/24 Loc: [facility] Attending Dr: Won Rueda D.O. Ordering Physician: Won Rueda D.O. Date of Service: 06/05/24 Procedure(s): US OB growth Accession Number(s): [id number] cc: Won Rueda D.O.; JASPAL MAXWELL [address] [address] Patient Name: GOLDIE VERMA MRN: [facility]:[id number] date: 1995 Sex: F Assigned Patient Location: [facility] Current Patient Location: [facility] Accession/Order Number: [id number] Exam Date: 06/05/2024 09:55 Report Date: 06/05/2024 11:22 At the request of: WON RUEDA Procedure: US OB growth EXAMINATION: US OB growth HISTORY: HISTORY OF DELIVERY COMPARISON: No relevant comparison available. FINDINGS: Heart Rate: 165 bpm Amniotic Fluid Volume: 12.1 cm. Largest fluid pocket 3.5 cm Number: 1 Position: Cephalic presentation, longitudinal lie BIOMETRY: BPD: 7.90 cm; 31 weeks 5 days; 16.10 % HC: 30.44 cm; 33 weeks 6 days; 42.30 % AC: 29.80 cm; 33 weeks 5 days; 79.60 % FL: 6.66 cm; 34 weeks 2 days; 78.80 % EFW: 2042.11 g; 72.50 % 5 lbs. 0 oz. FL/AC: 22.35 FL/BPD: 84.30 HC/AC: 1.02 GESTATIONAL AGE: Age by EDC: 32 weeks 5 days SINA by EDC: 2024-07-26 Age by US: 33 weeks 3 days SINA by US: 2024-07-21 US/US OB growth IMPRESSION: Normal interval growth Electronically authenticated by: DARLINE ESPITIA Date: 06/05/2024 11:22 Dictated By: Darline Espitia M.D. Signed By: 06/05/24 1125 DD/ 21 TD/TT: Paraoptometric: Procedure Note Radiology, Radiologist, - 06/05/2024 The [address] [place] [address] Ultrasound Report Signed Patient: GOLDIE VERMAMR#: [id number] : 1995Acct:[id number] Age/Sex: 28 / FADM Date: 06/05/24 Loc: [facility] Attending Dr: Won Rueda D.O. Ordering Physician: Won Rueda D.O. Date of Service: 06/05/24 Procedure(s): US OB growth Accession Number(s): [id number] cc: Won Rueda D.O.; JASPAL MAXWELL [place] [address] Patient Name: GOLDIE VERMA MRN: [id number] date: 1995 Sex: F Assigned [facility] Accession/Order Number: [id number] Exam Date: 06/05/2024 09:55 Report Date: 06/05/2024 11:22 At the request of: WON RUEDA Procedure: US OB growth EXAMINATION: US OB growth HISTORY: HISTORY OF DELIVERY COMPARISON: No relevant comparison available. FINDINGS: Heart Rate: 165 bpm Amniotic Fluid Volume: 12.1 cm. Largest fluid pocket 3.5 cm Number: 1 Position: Cephalic presentation, longitudinal lie BIOMETRY: BPD: 7.90 cm; 31 weeks 5 days; 16.10 % HC: 30.44 cm; 33 weeks 6 days; 42.30 % AC: 29.80 cm; 33 weeks 5 days; 79.60 % FL: 6.66 cm; 34 weeks 2 days; 78.80 % EFW: 2042.11 g; 72.50 % 5 lbs. 0 oz. FL/AC: 22.35 FL/BPD: 84.30 HC/AC: 1.02 GESTATIONAL AGE: Age by EDC: 32 weeks 5 days SINA by EDC: 2024-07-26 Age by US: 33 weeks 3 days SINA by US: 2024-07-21 US/US OB growth IMPRESSION: Normal interval growth Electronically authenticated by: DARLINE ESPITIA Date: 06/05/2024 11:22 Dictated By: Darline Espitia M.D. Signed By:06/05/24 1125 DD/ 1122 TD/TT: Paraoptometric: Won Rueda DO [facility] Final Result documented in this encounter Visit Diagnoses Not on filedocumented in this encounter Care Teams V Belt Inspector Relationship Specialty Start Date End Date Jaspal Maxwell NP [facility] [address] [place], [place] [phone] PCP - General Family Medicine 11/11/23 Won Rueda DO [address] [place] [address] [place] [address] PCP - FFS State COIL WINDER STRAP 08/20/24 documented as of this encounter
--- OUTSIDE RECORDS SUMMARY | 2025-01-13 12:37 | XMS_ITS | Encounter Summary ---
Author Organization [facility] Address [address] [place] [address] Care Team Providers Care Teachers' Assistant Name Role Phone Lucila Arnett NP Primary Care Provider Moi Rueda DO Unavailable Encounter Details Date Type Department Care Team (Late st Contact Info) Description 06/27/2024 Abstract [facility] BCP OB [address] [place] [address] Moi Rueda DO [address] [place], [facility]11 Social History Tobacco Use Types Packs/Day Years [...] on filedocumented in this encounter Care Teams Teachers' Assistant Relationship Specialty Start Date End Date Lucila Arnett NP [address] [place] [address] PCP - General Family Medicine 11/11/23 Moi Rueda DO [address] [place], [place] [phone] PCP - FFS State [employer] 08/20/24 documented as of this encounter
--- OUTSIDE RECORDS SUMMARY | 2025-01-13 12:37 | XMS_ITS | Encounter Summary ---
Author Organization [facility] Address [address] [place] [address] Care Team Providers Care Hauling Contractor Name Role Phone Lucila Arnett NP Primary Care Provider Moi Rueda DO Unavailable Encounter Details Date Type Department Care Team (Late st Contact Info) Description 03/25/2024 Abstract [facility] BCP OB [address] [place] [address] Moi Rueda DO [address] [place], [facility]11 Social History Tobacco Use Types Packs/Day [...] on filedocumented in this encounter Care Teams Hauling Contractor Relationship Specialty Start Date End Date Lucila Arnett NP [address] [facility] [place] [address] PCP - General Family Medicine 11/11/23 Moi Rueda DO [address] [place], [place] [phone] PCP - FFS State TACK PICKER 08/20/24 documented as of this encounter
--- OUTSIDE RECORDS SUMMARY | 2025-01-13 12:37 | XMS_ITS | Encounter Summary ---
Author Organization [facility] Address [address] [place] [address] Care Team Providers Care Cargo And Container Inspector Name Role Phone Lucila Arnett NP Primary Care Provider Moi Rueda DO Unavailable Encounter Details Date Type Department Care Team (Late st Contact Info) Description 06/30/2024 Abstract [facility] BCP OB [address] [place] [address] Moi Rueda DO [address] [place], [facility] Social History Tobacco Use Types Packs/Day Years [...] on filedocumented in this encounter Care Teams Cargo And Container Inspector Relationship Specialty Start Date End Date Lucila Arnett NP [address] [facility] [place] [address] PCP - General Family Medicine 11/11/23 Moi Rueda DO [address] [place], [place] [phone] PCP - FFS State [employer] 08/20/24 documented as of this encounter
--- OUTSIDE RECORDS SUMMARY | 2025-01-13 12:37 | XMS_ITS | Encounter Summary ---
Author Organization [facility] Address [address] [place] [address] Care Team Providers Care Land Acquisition Analyst Name Role Phone Lucila Arnett MACHINE TRIMMER Primary Care Provider Moi Rueda DO Unavailable Encounter Details Date Type Department Care Team (Late st Contact Info) Description 01/21/2024 Abstract [facility] BCP OB [address] [place] [address] Debra Hughes LPN [address] [employer] [facility] [place], [place] [address] Social History Tobacco Use Types Packs/Day Years [...] on filedocumented in this encounter Care Teams Land Acquisition Analyst Relationship Specialty Start Date End Date Lucila Arnett NP [address] [facility] [address] [place], [place] [phone] PCP - General Family Medicine 11/11/23 Moi Rueda DO [address] [employer] [facility] [address] [place], [place] [phone] PCP - FFS State CERTIFIED PHLEBOTOMY TECHNICIAN 08/20/24 documented as of this encounter
--- OUTSIDE RECORDS SUMMARY | 2025-01-13 12:37 | XMS_ITS | Encounter Summary ---
Author Organization [facility] Address [address] [place] [address] Care Team Providers Care Utility Gelatin Maker Name Role Phone Lucila Arnett NP Primary Care Provider Moi Rueda DO Unavailable Encounter Details Date Type Department Care Team (Late st Contact Info) Description 09/26/2024 Abstract [facility] BCP [place] [address] [place] [address] Moi Rueda DO [address] [place], [facility]11 Social History Tobacco Use Types Packs/Day Years Used Date Smoking Tobacco: Never Assessed Comments No Sex and Gender Information Value Date Recorded Sex Assigned at Not on file Legal Sex Female 7:02 PM EDT Gender Identity Not on file Sexual Orientation Not on file documented as of this encounter Plan of Treatment Not on file documented as of this encounter Visit Diagnoses Not on filedocumented in this encounter Care Teams Utility Gelatin Maker Relationship Specialty Start Date End Date Lucila Arnett NP [address] [facility] [place] [address] PCP - General Family Medicine 11/11/23 Moi Rueda DO [address] [place], [place] [id number] PCP - FFS State CREDIT ADVISOR 08/20/24 documented as of this encounter
--- OUTSIDE RECORDS SUMMARY | 2025-01-13 12:37 | XMS_ITS | Encounter Summary ---
Author Organization [facility] Address [address] [place] [address] Care Team Providers Care Site Surveyor Name Role Phone Lucila Arnett NP Primary Care Provider Moi Rueda DO Unavailable Encounter Details Date Type Department Care Team (Late st Contact Info) Description 04/22/2024 Abstract [facility] BCP OB [address] [place] [address] Moi Rueda DO [address] [place], [facility]11 Social History Tobacco Use Types Packs/Day Years [...] on filedocumented in this encounter Care Teams Site Surveyor Relationship Specialty Start Date End Date Lucila Arnett NP [address] [facility] [place] [address] PCP - General Family Medicine 11/11/23 Moi Rueda DO [address] [place], [place] [address] PCP - FFS State COPY SUPERVISOR 08/20/24 documented as of this encounter
--- OUTSIDE RECORDS SUMMARY | 2025-01-13 12:37 | XMS_ITS | Clinical Summary ---
Author Organization [facility] Address [address] [place] [address] Care Team Providers Care Charge Manager Name Role Phone Lucila Arnett ICE SELLER Unavailable [phone] Encounters Date Type Department Care Team Description 01/11/2025 Transcribe Orders Referring Physician [address] [place] [phone] Lucila Arnett NP Endometriosis (Primary Dx) 01/07/2025 Telephone Gynecology [address], [place] [id number] Provider, [facility]cf Tearoom Hostess - Other (Care Everywhere Updated) from Last 3 Months Social History Tobacco Use Types Packs/Day Years Used Date Smoking Tobacco: Never Assessed Comments Unknown Sex and Gender Information Value Date Recorded Sex Assigned at Not on file Legal Sex Female 11:37 AM EDT Gender Identity Not on file Sexual Orientation Not on file Plan of Treatment Not on file Insurance [employer] Care Teams Charge Manager Relationship Specialty Start Date End Date Lucila Arnett NP [address] [place] [address] Referring Nurse Practitioner 01/06/25
--- OUTSIDE RECORDS SUMMARY | 2025-01-13 12:37 | XMS_ITS | Encounter Summary ---
Author Organization [facility] Address [address] [place] [address] Care Team Providers Care Hearing Aid Assembly Supervisor Name Role Phone EllyJaspal [place] Fay MORTGAGE CLOSING CLERK Primary Care Provider Won Rueda DO Unavailable Encounter Details Date Type Department Care Team (Late st Contact Info) Description 08/01/2024 Clinisync Result Encounter [facility] External Department Unsolicited Won Rueda DO [address] [facility] [place] [address] Social History Tobacco Use Types [...] Name Priority Date/Time Associated Diagnosis Comments US PELVIS TRANSVAGINAL 08/01/2024 3:45 PM EST documented in this encounter Results * US PELVIS TRANSVAGINAL (08/01/2024 3:45 PM EST) Anatomical Region Laterality Modality Other 08/01/2024 3:45 PM EST Narrative 08/01/2024 3:48 PM EST The [address] [address] Ultrasound Report Signed Patient: GOLDIE VERMA MR#: [id number] : 1995 Acct:[id number] Age/Sex: 28 / F ADM Date: 08/01/24 Loc: US Attending Dr: Won Rueda D.O. Ordering Physician: Won Rueda D.O. Date of Service: 08/01/24 Procedure(s): US pelvis transvaginal Accession Number(s): [id number] cc: Won Rueda D.O.; JASPAL MAXWELL [place] [address] Patient Name: GOLDIE VERMA MRN: [facility]:[id number] date: 1995 Sex: F Assigned Patient Location: US Current Patient Location: US Accession/Order Number: [id number] Exam Date: 08/01/2024 11:32 Report Date: 08/01/2024 15:45 At the request of: WON RUEDA Procedure: US pelvis transvaginal EXAMINATION: US pelvis transvaginal HISTORY: PELVIC PAIN, ASSESS FOR RETAINED PRODUCT AFTER DELIVERY COMPARISON: No relevant comparison available. FINDINGS: The uterus is prominent in size, normal contour and echotexture measuring 9.0 x 7.3 x 6.4 cm consistent with the patient's state. The uterus is retroverted. No focal myometrial mass The endometrium measures 4 mm, normal. No hypervascularity The right ovary is normal measuring 5 x 2.0 x 2.3 cm. Normal color Doppler flow The left ovary is normal measuring 3.5 x 1.5 x 1.5 cm. Normal color and Doppler flow No free fluid US/US pelvis transvaginal IMPRESSION: No definite retained products of conception Electronically authenticated by: DARLINE ESPITIA Date: 08/01/2024 15:45 Dictated By: Darline Espitia M.D. Signed By: 08/01/24 1548 DD/ 1545 TD/TT: Publication Manager: Procedure Note Radiology, Radiologist, - 08/01/2024 [place] [address] Ultrasound Report Signed Patient: GOLDIE VERMAMR#: [id number] : 1995Acct:[id number] Age/Sex: 28 / FADM Date: 08/01/24 Loc: US Attending Dr: Won Rueda D.O. Ordering Physician: Won Rueda D.O. Date of Service: 08/01/24 Procedure(s): US pelvis transvaginal Accession Number(s): [id number] cc: Won Rueda D.O.; JASPAL MAXWELL [place] [address] [place], [place] [id number] Patient Name: GOLDIE VERMA MRN: [id number]:[id number] date: 1995 Sex: F Assigned Patient Location: US Current Patient Location: US Accession/Order Number: [id number] Exam Date: 08/01/2024 11:32 Report Date: 08/01/2024 15:45 At the request of: WON RUEDA Procedure: US pelvis transvaginal EXAMINATION: US pelvis transvaginal HISTORY: PELVIC PAIN, ASSESS FOR RETAINED PRODUCT AFTER DELIVERY COMPARISON: No relevant comparison available. FINDINGS: The uterus is prominent in size, normal contour and echotexture measuring9.0 x 7.3 x 6.4 cm consistent with the patient's state. The uterus is retroverted. No focal myometrial mass The endometrium measures 4 mm, normal. No hypervascularity The right ovary is normal measuring 5 x 2.0 x 2.3 cm. Normal color Doppler flow The left ovary is normal measuring 3.5 x 1.5 x 1.5 cm. Normal color and Doppler flow No free fluid US/US pelvis transvaginal IMPRESSION: No definite retained products of conception Electronically authenticated by: DARLINE ESPITIA Date: 08/01/2024 15:45 Dictated By: Darline Espitia M.D. Signed By:08/01/24 1548 DD/ 1545 TD/TT: Publication Manager: Won Rueda DO [facility] Final Result documented in this encounter Visit Diagnoses Not on filedocumented in this encounter Care Teams Hearing Aid Assembly Supervisor Relationship Specialty Start Date End Date Jaspal Maxwell NP [address] [facility] [place] [address] [phone] (work) PCP - General Family Medicine 11/11/23 Won Rueda DO [address] [place] [address] [place] [address] PCP - FFS State [employer] 08/20/24 documented as of this encounter
--- OUTSIDE RECORDS SUMMARY | 2025-01-13 12:37 | XMS_ITS | Encounter Summary ---
Author Organization [facility] Address [address] [place] [address] Care Team Providers Care Wood Boatbuilder Apprentice Name Role Phone Lucila Arnett NP Primary Care Provider Moi Rueda DO Unavailable Encounter Details Date Type Department Care Team (Late st Contact Info) Description 06/23/2024 Abstract [facility] BCP OB [address] [place] [address] Moi Rueda DO [address] [place], [facility]11 Social History Tobacco Use Types Packs/Day [...] on filedocumented in this encounter Care Teams Wood Boatbuilder Apprentice Relationship Specialty Start Date End Date Lucila Arnett NP [address] [facility] [place] [address] PCP - General Family Medicine 11/11/23 Moi Rueda DO [address] [place], [place] [phone] PCP - FFS State HR ADMINISTRATIVE ASSISTANT 08/20/24 documented as of this encounter
--- OUTSIDE RECORDS SUMMARY | 2025-01-13 12:37 | XMS_ITS | Encounter Summary ---
Author Organization [facility] Address [address] [place] [address] Care Team Providers Care Early Childhood Aide Classroom Name Role Phone EllyJaspal [place] Fay RETAIL SERVICE TECHNICIAN Primary Care Provider Won Rueda DO Unavailable Encounter Details Date Type Department Care Team (Late st Contact Info) Description 12/26/2023 Clinisync Result Encounter [facility] External Department Unsolicited Won Rueda DO [address] [facility] [place] [address] Social History Tobacco Use Types [...] Name Priority Date/Time Associated Diagnosis Comments US APPENDIX 12/26/2023 1:45 PM EDT documented in this encounter Results * US APPENDIX (12/26/2023 1:45 PM EDT) Anatomical Region Laterality Modality Radiographic [place] ging 12/26/2023 1:45 PM EDT Narrative 12/26/2023 1:48 PM EDT The [address] [address] Ultrasound Report Signed Patient: GOLDIE VERMA MR#: [id number] : 1995 Acct:[id number] Age/Sex: 28 / F ADM Date: 12/26/23 Loc: US Attending Dr: Won Rueda D.O. Ordering Physician: Won Rueda D.O. Date of Service: 12/26/23 Procedure(s): US appendix Accession Number(s): [id number] cc: Won Rueda D.O.; JASPAL MAXWELL [place] [address] Patient Name: GOLDIE VERMA MRN: [facility]:[id number] date: 1995 Sex: F Assigned Patient Location: US Current Patient Location: US Accession/Order Number: [id number] Exam Date: 12/26/2023 12:42 Report Date: 12/26/2023 13:45 At the request of: WON RUEDA Procedure: US appendix EXAM: US appendix HISTORY: RIGHT PELVIC PAIN COMPARISON: None. TECHNIQUE: Grayscale and color ultrasound FINDINGS: Ultrasound of the right lower quadrant demonstrates normal skin, subcutaneous fat, muscle and intraperitoneal contents. The appendix is not definitively visualized. No ascites. US/US appendix IMPRESSION: Nonvisualization of the appendix Electronically authenticated by: DARLINE ESPITIA Date: 12/26/2023 13:45 Dictated By: Darline Espitia M.D. Signed By: 12/26/23 1348 DD/ 1345 TD/TT: Children'S Tutor: Procedure Note Radiology, Radiologist, MD - 12/26/2023 [place] [address] Ultrasound Report Signed Patient: GOLDIE VERMAMR#: [id number] : 1995Acct:[id number] Age/Sex: 28 / FADM Date: 12/26/23 Loc: US Attending Dr: Won Rueda D.O. Ordering Physician: Won Rueda D.O. Date of Service: 12/26/23 Procedure(s): US appendix Accession Number(s): [id number] cc: Won Rueda D.O.; JASPAL MAXWELL [place] [id number] Patient Name: GOLDIE VERMA MRN: [id number] date: 1995 Sex: F Assigned Patient Location: US Current Patient Location: US Accession/Order Number: [id number] Exam Date: 12/26/2023 12:42 Report Date: 12/26/2023 13:45 At the request of: WON RUEDA Procedure: US appendix EXAM: US appendix HISTORY: RIGHT PELVIC PAIN COMPARISON: None. TECHNIQUE: Grayscale and color ultrasound FINDINGS: Ultrasound of the right lower quadrant demonstrates normal skin,subcutaneous fat, muscle and intraperitoneal contents. The appendix is not definitively visualized. No ascites. US/US appendix IMPRESSION: Nonvisualization of the appendix Electronically authenticated by: DARLINE ESPITIA Date: 12/26/2023 13:45 Dictated By: Darline Espitia M.D. Signed By:12/26/23 1348 DD/ 1345 TD/TT: Children'S Tutor: us Won Rueda DO IMG XR PROCEDURES Final Result documented in this encounter Visit Diagnoses Not on filedocumented in this encounter Care Teams Early Childhood Aide Classroom Relationship Specialty Start Date End Date Jaspal Maxwell NP [address] [place] [address] [place] [address] PCP - General Family Medicine 11/11/23 Won Rueda DO [address] [place] [address] [place] [address] PCP - FFS State LEARNING SUPPORT RESOURCE ROOM TEACHER 08/20/24 documented as of this encounter
--- OUTSIDE RECORDS SUMMARY | 2025-01-13 12:37 | XMS_ITS | Encounter Summary ---
Author Organization [facility] Address [address] [place] [address] Care Team Providers Care Weekend Caregiver Name Role Phone Lucila Arnett BUSINESS ACCOUNT LEADER Primary Care Provider Moi Rueda DO Unavailable Encounter Details Date Type Department Care Team (Late st Contact Info) Description 01/21/2024 Abstract [facility] BCP OB [address] [place] [address] Debra Hughes LPN [address] [facility] [place], [place] [id number] Social History Tobacco Use Types Packs/Day Years [...] on filedocumented in this encounter Care Teams Weekend Caregiver Relationship Specialty Start Date End Date Lucila Arnett NP [address] [facility] [address] [place], [place] [address] PCP - General Family Medicine 11/11/23 Moi Rueda DO [address] [facility] [address] [place], [place] [address] PCP - FFS State POURER METAL 08/20/24 documented as of this encounter
--- OUTSIDE RECORDS SUMMARY | 2025-01-13 12:37 | XMS_ITS | Encounter Summary ---
Author Organization [facility] Address [address] [place] [address] Care Team Providers Care Car Manager Name Role Phone Melquiades Jaspal Fay CHANG Primary Care Provider Won Rueda DO Unavailable Encounter Details Date Type Department Care Team (Late st Contact Info) Description 07/04/2024 Clinisync Result Encounter [facility]S External Department Unsolicited Won Rueda DO [address] [facility] [place] [address] Social History Tobacco Use Types [...] Diagnosis Comments US OB BPP W NON-STRESS 07/04/2024 4:14 AM EST documented in this encounter Results * US OB BPP W NON-STRESS (07/04/2024 4:14 AM EST) Anatomical Region Laterality Modality Other 07/04/2024 4:14 AM EST Narrative 07/04/2024 4:16 AM EST The [address] [address] Ultrasound Report Signed Patient: GOLDIE VERMA MR#: [id number] : 1995 Acct:[id number] Age/Sex: 28 / F ADM Date: 07/03/24 Loc: US Attending Dr: Won Rueda D.O. Ordering Physician: Won Rueda D.O. Date of Service: 07/03/24 Procedure(s): US OB BPP w non-stress Accession Number(s): [id number] cc: Won Rueda D.O.; JASPAL MAXWELL [place] [id number] Patient Name: GOLDIE VERMA MRN: [facility]:[id number] date: 1995 Sex: F Assigned Patient Location: [facility] Current Patient Location: US Accession/Order Number: [id number] Exam Date: 07/03/2024 10:55 Report Date: 07/04/2024 04:14 At the request of: WON RUEDA Procedure: US OB BPP w non-stress EXAMINATION: US OB BPP w non-stress HISTORY:H/O LABOR COMPARISON: Ultrasound OB biophysical 06/27/2024 TECHNIQUE: Ultrasound biophysical profile was performed in the radiology department. BREATHING MOVEMENTS: 2 GROSS BODY MOVEMENTS: 2 TONE: 2 QUALITATIVE AMNIOTIC FLUID VOLUME: 2 PRESENTATION: CEPHALIC HEART RATE: 150.84 bpm AMNIOTIC FLUID VOLUME: 16.04 cm GESTATIONAL AGE: 36 weeks 5 days US/US OB BPP w non-stress IMPRESSION: Total biophysical profile score: 8 Electronically authenticated by: HARRISON SAXENA Date: 07/04/2024 04:14 Dictated By: Harrison Saxena M.D. Signed By: 07/04/24415 DD/ 3 TD/TT: Glass Edger: Procedure Note Radiology, Radiologist, MD - 07/04/2024 [place] [address] Ultrasound Report Signed Patient: GOLDIE VERMAMR#: [id number] : 1995Acct:[id number] Age/Sex: 28 / FADM Date: 07/03/24 Loc: US Attending Dr: Won Rueda D.O. Ordering Physician: Won Rueda D.O. Date of Service: 07/03/24 Procedure(s): US OB BPP w non-stress Accession Number(s): [id number] cc: Won Rueda D.O.; JASPAL MAXWELL [facility] [address] [place], [place] [address] Patient Name: GOLDIE VERMA MRN: [facility]:[id number] date: 1995 Sex: F Assigned Patient Location: [facility] Current Patient Location: US Accession/Order Number: [id number] Exam Date: 07/03/2024 10:55 Report Date: 07/04/2024 04:14 At the request of: WON RUEDA Procedure: US OB BPP w non-stress EXAMINATION: US OB BPP w non-stress HISTORY:H/O LABOR COMPARISON: Ultrasound OB biophysical 06/27/2024 TECHNIQUE: Ultrasound biophysical profile was performed in the radiology department. BREATHING MOVEMENTS: 2 GROSS BODY MOVEMENTS: 2 TONE: 2 QUALITATIVE AMNIOTIC FLUID VOLUME: 2 PRESENTATION: CEPHALIC HEART RATE: 150.84 bpm AMNIOTIC FLUID VOLUME: 16.04 cm GESTATIONAL AGE: 36 weeks 5 days US/US OB BPP w non-stress IMPRESSION: Total biophysical profile score: 8 Electronically authenticated by: HARRISON SAXENA Date: 07/04/2024 04:14 Dictated By: Harrison Saxena M.D. Signed By:07/04/24415 DD/ 3 TD/TT: Glass Edger: us Won Rueda DO [facility] Final Result documented in this encounter Visit Diagnoses Not on filedocumented in this encounter Care Teams Car Manager Relationship Specialty Start Date End Date Jaspal Maxwell NP [address] [facility] [address] PCP - General Family Medicine 11/11/23 Won Rueda DO [address] [place] [address] [place] [address] PCP - FFS State LENS GAUGER 08/20/24 documented as of this encounter
--- OUTSIDE RECORDS SUMMARY | 2025-01-13 12:37 | XMS_ITS | Encounter Summary ---
Author Organization [facility] Address [address] [place] [address] Care Team Providers Care Direct Support Specialist Name Role Phone EllyLucila nicole Fay CHANG Primary Care Provider Won Rueda DO Unavailable Encounter Details Date Type Department Care Team (Late st Contact Info) Description 01/21/2024 External Result Encounter [facility] OB [address] [place] [address] Won Rueda DO [address], [facility]11 Social History [...] Procedure Name Priority Date/Time Associated Diagnosis Comments RECURRENT VAGINITIS (HTRX) Routine 07/30/2024 6:04 PM EST RECURRENT VAGINITIS (HTRX) Routine 02/13/2024 3:55 PM EDT OB 14+ WEEKS ANATOMY SCAN 01/21/2024 11:15 AM EDT documented in this encounter Results * (ABNORMAL) RECURRENT VAGINITIS (HTRX) (07/30/2024 6:04 PM EST) ATOPOBIUM VAGINAE 25.914(A) 19.961 - 24.689 ppm 08/01/2024 6:01 AM EST [facility] ATOPOBIUM VAGINAE Detected(A) 19.961 - 24.689 ppm 08/01/2024 6:01 AM EST [facility] BVAB 2,3 (BACTERIAL VAGINOSIS ASSOCIATED BACTERIA 2, 3); MOBILUNCUS SPP 0.000 19.961 - 24.689 ppm 08/01/2024 6:01 AM EST [facility] BVAB 2,3 (BACTERIAL VAGINOSIS ASSOCIATED BACTERIA 2, 3); MOBILUNCUS SPP Not Detected 19.961 - 24.689 ppm 08/01/2024 6:01 AM EST [facility] HUMA ALBICANS, PARAPSILOSIS, TROPICALIS 0.000 19.961 - 30.770 ppm 08/01/2024 6:01 AM EST [facility] HUMA ALBICANS, PARAPSILOSIS, TROPICALIS Not Detected 19.961 - 30.770 ppm 08/01/2024 6:01 AM EST [facility] HUMA GLABRATA 0.000 23.000 - 32.138 ppm 08/01/2024 6:01 AM EST [facility] HUMA GLABRATA Not Detected 23.000 - 32.138 ppm 08/01/2024 6:01 AM EST [facility] HUMA KRUSEI 0.000 23.000 - 32.271 ppm 08/01/2024 6:01 AM EST [facility] HUMA KRUSEI Not Detected 23.000 - 32.271 ppm 08/01/2024 6:01 AM EST [facility] CHLAMYDIA TRACHOMATIS 0.000 23.000 - 31.467 ppm 08/01/2024 6:01 AM EST [facility] CHLAMYDIA TRACHOMATIS Not Detected 23.000 - 31.467 ppm 08/01/2024 6:01 AM EST [facility] GARDNERELLA VAGINALIS 0.000 19.961 - 24.689 ppm 08/01/2024 6:01 AM EST [facility] GARDNERELLA VAGINALIS Not Detected 19.961 - 24.689 ppm 08/01/2024 6:01 AM EST [facility] MEGASPHAERA (TYPES 1, 2) 0.000 19.961 - 24.689 ppm 08/01/2024 6:01 AM EST [facility] MEGASPHAERA (TYPES 1, 2) Not Detected 19.961 - 24.689 ppm 08/01/2024 6:01 AM EST [facility] NEISSERIA GONORRHOEAE 0.000 23.000 - 32.117 ppm 08/01/2024 6:01 AM EST [facility] NEISSERIA GONORRHOEAE Not Detected 23.000 - 32.117 ppm 08/01/2024 6:01 AM EST [facility] TRICHOMONAS VAGINALIS 0.000 23.000 - 32.119 ppm 08/01/2024 6:01 AM EST [facility] TRICHOMONAS VAGINALIS Not Detected 23.000 - 32.119 ppm 08/01/2024 6:01 AM EST [facility] MYCOPLASMA GENITALIUM 0.000 19.961 - 24.689 ppm 08/01/2024 6:01 AM EST [facility] MYCOPLASMA GENITALIUM Not Detected 19.961 - 24.689 ppm 08/01/2024 6:01 AM EST [facility] Tissue 07/30/2024 6:04 PM EST 08/01/2024 1:43 AM EST us Won Rueda DO LAB BLOOD ORDERABLES Final Resul t [facility] [address] [place] [address] * URETHRITIS/DISCHARGE PLUS VAGINITIS (HTRX) (02/13/2024 3:55 PM EDT) [facility] ATOPOBIUM VAGINAE 0.000 19.961 - 24.689 ppm 02/14/2024 6:41 AM EDT [facility] ATOPOBIUM VAGINAE Not Detected 19.961 - 24.689 ppm 02/14/2024 6:41 AM EDT [facility] BVAB 2,3 (BACTERIAL VAGINOSIS ASSOCIATED BACTERIA 2, 3); MOBILUNCUS SPP 0.000 19.961 - 24.689 ppm 02/14/2024 6:41 AM EDT [facility] BVAB 2,3 (BACTERIAL VAGINOSIS ASSOCIATED BACTERIA 2, 3); MOBILUNCUS SPP Not Detected 19.961 - 24.689 ppm 02/14/2024 6:41 AM EDT [facility] HUMA ALBICANS, PARAPSILOSIS, TROPICALIS 0.000 19.961 - 30.770 ppm 02/14/2024 6:41 AM EDT [facility] HUMA ALBICANS, PARAPSILOSIS, TROPICALIS Not Detected 19.961 - 30.770 ppm 02/14/2024 6:41 AM EDT [facility] HUMA GLABRATA 0.000 23.000 - 32.138 ppm 02/14/2024 6:41 AM EDT [facility] HUMA GLABRATA Not Detected 23.000 - 32.138 ppm 02/14/2024 6:41 AM EDT [facility] HUMA KRUSEI 0.000 23.000 - 32.271 ppm 02/14/2024 6:41 AM EDT [facility] HUMA KRUSEI Not Detected 23.000 - 32.271 ppm 02/14/2024 6:41 AM EDT [facility] CHLAMYDIA TRACHOMATIS 0.000 23.000 - 31.467 ppm 02/14/2024 6:41 AM EDT [facility] CHLAMYDIA TRACHOMATIS Not Detected 23.000 - 31.467 ppm 02/14/2024 6:41 AM EDT [facility] GARDNERELLA VAGINALIS 0.000 19.961 - 24.689 ppm 02/14/2024 6:41 AM EDT [facility] GARDNERELLA VAGINALIS Not Detected 19.961 - 24.689 ppm 02/14/2024 6:41 AM EDT [facility] MEGASPHAERA (TYPES 1, 2) 0.000 19.961 - 24.689 ppm 02/14/2024 6:41 AM EDT [facility] MEGASPHAERA (TYPES 1, 2) Not Detected 19.961 - 24.689 ppm 02/14/2024 6:41 AM EDT [facility] NEISSERIA GONORRHOEAE 0.000 23.000 - 32.117 ppm 02/14/2024 6:41 AM EDT [facility] NEISSERIA GONORRHOEAE Not Detected 23.000 - 32.117 ppm 02/14/2024 6:41 AM EDT [facility] TRICHOMONAS VAGINALIS 0.000 23.000 - 32.119 ppm 02/14/2024 6:41 AM EDT [facility] TRICHOMONAS VAGINALIS Not Detected 23.000 - 32.119 ppm 02/14/2024 6:41 AM EDT [facility] MYCOPLASMA GENITALIUM 0.000 19.961 - 24.689 ppm 02/14/2024 6:41 AM EDT [facility] MYCOPLASMA GENITALIUM Not Detected 19.961 - 24.689 ppm 02/14/2024 6:41 AM EDT [facility] Tissue 02/13/2024 3:55 PM EDT 02/14/2024 1:10 AM EDT us Won Rueda DO LAB BLOOD ORDERABLES Final Resul t [facility] [address] [place] [address] * US OB 14+ weeks anatomy scan (01/21/2024 11:15 AM EDT) Anatomical Region Laterality Modality Body Ultrasound 01/21/2024 11:1 5 AM EDT Narrative 01/21/2024 10:54 AM EDT THIS EXAM WAS PERFOR[facility] REPORT (Corrected Final 01/21/2024 11:15) PATIENT INFO: ID #: [id number] : [birth year] (28 yrs)(F) Name: GOLDIE VERMA Visit Date: 01/21/2024 10:19 PERFORMED BY: Attending: Bari Zepeda MD Performed By: Kristen Carvajal RDMS Referred By: Won Mustafa. Address: [address] [place] [address] [place] [address] Location: [facility] SERVICE(S) PROVIDED: Basic OB, 1st trimester (< 14 weeks), 1 fetus [id number] INDICATIONS: Screening for nuchal translucency Z36.82 Viability O36.80X9 History of previous with O09.899 delivery Supervision of other high risk , O09.90 antepartum. h/o placental abruption VITAL SIGNS: Weight (lb): 146.6 Height: 5'11 BMI: 20.44 EVALUATION: Num Of Fetuses: 1 Heart Rate(bpm): 165 Cardiac Activity: Present appears normal Presentation: Variable Placenta: Posterior Amniotic Fluid FROYLAN FV: Subjectively within normal limits BIOMETRY: CRL: 76.1 mm G.Age: 13w 5d SINA: 07/23/24 OB HISTORY: : 3 Term: 1 Soren: 1 Livin GESTATIONAL AGE: LMP: 13w 2d Date: 10/20/23 SINA: 07/26/24 Best: 13w 2d Det. By: LMP (10/20/23) SINA: 12/7/24 ANATOMY: Cranium: Appears normal Choroid Plexus: Appears normal Heart: Not well visualized Diaphragm: Appears normal Stomach: Appears normal, left sided Abdomen: Appears normal Bladder: Appears normal Upper Extremities: Not well visualized Lower Extremities: Not well visualized CERVIX UTERUS ADNEXA: Uterus Gravid uterus Right Ovary Size(cm) 2.74 x 2.24 x 2.87 Vol(ml): 9.22 Corpus luteal cyst Left Ovary Not visualized Adnexa No adnexal masses identified COMMENTS: Ultrasound is not diagnostic for chromosomal abnormalities, will not detect all structural abnormalities, and is not diagnostic for genetic disorders even if multiple exams are performed during a given . Bari Zepeda MD Electronically Signed Corrected Final Report 01/21/2024 11:15 IMPRESSION: 1. Single intrauterine , size consistent with dates. 2. Unable to obtain NT due to position. No obvious structural abnormalities noted although exam suboptimal secondary to very early gestational age of . RECOMMENDATIONS: 1. Please see M consultation documentation from today's encounter. 2. Subsequent follow up or other follow up as clinically determined by primary OB provider unless otherwise specified by M. 3. Results forwarded to ordering provider so they can follow up with the patient as necessary. The copy-to physician of this order is WON Watts The ordering physician of this order is BARI Cho Procedure Note Radiology, Radiologist, - 01/21/2024 THIS [facility] REPORT (Corrected Final 01/21/2024 11:15) PATIENT INFO: ID #: [id number] : [birth year] (28 yrs)(F) Name: GOLDIE VERMA Visit Date: 01/21/2024 10:19 PERFORMED BY: Attending: Bari Zepeda MD Performed By: Kristen Carvajal RDMS Referred By: Won Rueda DO Ref. Address: [address] [place] [address] [place] [address] Location: [facility] SERVICE(S) PROVIDED: Basic OB, 1st trimester (< 14 weeks), 1 fetus [id number] INDICATIONS: Screening for nuchal translucency Z36.82 Viability O36.80X9 History of previous with O09.899 delivery Supervision of other high risk , O09.90 antepartum. h/o placental abruption VITAL SIGNS: Weight (lb): 146.6 Height: 5'11 BMI: 20.44 EVALUATION: Num Of Fetuses: 1 Heart Rate(bpm): 165 Cardiac Activity: Present appears normal Presentation: Variable Placenta: Posterior Amniotic Fluid FROYLAN FV: Subjectively within normal limits BIOMETRY: CRL: 76.1 mm G.Age: 13w 5d SINA: 07/23/24 OB HISTORY: : 3 Term: 1 Soren: 1 Livin GESTATIONAL AGE: LMP: 13w 2d Date: 10/20/23 SINA: 07/26/24 Best: 13w 2d Det. By: LMP (10/20/23) SINA: 07/26/24 ANATOMY: Cranium: Appears normal Choroid Plexus: Appears normal Heart: Not well visualized Diaphragm: Appears normal Stomach: Appears normal, left sided Abdomen: Appears normal Bladder: Appears normal Upper Extremities: Not well visualized Lower Extremities: Not well visualized CERVIX UTERUS ADNEXA: Uterus Gravid uterus Right Ovary Size(cm) 2.74 x 2.24 x 2.87 Vol(ml): 9.22 Corpus luteal cyst Left Ovary Not visualized Adnexa No adnexal masses identified COMMENTS: Ultrasound is not diagnostic for chromosomal abnormalities, will not detect all structural abnormalities, and is not diagnostic for genetic disorders even if multiple exams are performed during a given . Bari Zepeda MD Electronically Signed Corrected Final Report 01/21/2024 11:15 IMPRESSION: 1. Single intrauterine , size consistent with dates. 2. Unable to obtain NT due to position. No obvious structural abnormalities noted although exam suboptimal secondary to very early gestational age of . RECOMMENDATIONS: 1. Please see MFM consultation documentation from today's encounter. 2. Subsequent follow up or other follow up as clinically determined by primary OB provider unless otherwise specified by MFM. 3. Results forwarded to ordering provider so they can follow up with the patient as necessary. The copy-to physician of this order is WON Watts The ordering physician of this order is BARI Cho us Won Rueda DO IMG OB US PROCEDURES Edited Resu lt - Final documented in this encounter Visit Diagnoses Not on filedocumented in this encounter Care Teams Direct Support Specialist Relationship Specialty Start Date End Date Lucila Arnett NP [address] [place] [address] [place] [address] PCP - General Family Medicine 11/11/23 Won Rueda DO [address] [place] [address] [place] [address] PCP - FFS [facility] 08/20/24 documented as of this encounter
--- OUTSIDE RECORDS SUMMARY | 2025-01-13 12:37 | XMS_ITS | Encounter Summary ---
Author Organization [facility] Address [address] [place] [address] Care Team Providers Care Framing Machine Tender Name Role Phone Lucila Arnett STAFF COMB[facility] C[facility] OFFICER Primary Care Provider Moi Rueda DO Unavailable Encounter Details Date Type Department Care Team (Late st Contact Info) Description 01/21/2024 Abstract [facility] OB [address] [place] [address] Debra Hughes LPN [address] [employer] [facility] [place], [place] [id number] Social History Tobacco Use Types Packs/Day Years [...] on filedocumented in this encounter Care Teams Framing Machine Tender Relationship Specialty Start Date End Date Lucila Arnett NP [address] [facility] [address] [place], [place] [id number] PCP - General Family Medicine 11/11/23 Moi Rueda DO [address] [employer] [facility] [address] [place], [place] [id number] PCP - FFS State [employer] 08/20/24 documented as of this encounter
--- OUTSIDE RECORDS SUMMARY | 2025-01-13 12:37 | XMS_ITS | Encounter Summary ---
Author Organization [facility] Address [address] [place] [address] Care Team Providers Care Elementary [employer] Music Teacher Name Role Phone MelquiadesLucila Fay CHANG Primary Care Provider Moi Rueda DO Unavailable Reason for Visit * Reason Comments Med Refill Encounter Details Date Type Department Care Team (Late st Contact Info) Description 01/03/2024 Refill [facility] [place] [address] [place] [id number] Debbie Lugo DO [address] [place] [id number] Primary insomnia Social History Tobacco Use Types Packs/Day Years Used Date Smoking Tobacco: Never Assessed Comments Yes Sex and Gender Information Value Date Recorded Sex Assigned at Not on file Legal Sex Female 7:02 PM EDT Gender Identity Not on file Sexual Orientation Not on file documented as of this encounter Miscellaneous Notes * Telephone Encounter - Christy Brown - 01/03/2024 10:07 AM EDT Called patient - she states she found out she is and cannot get botox and was told not to take doxepin - questions need for immediate * Telephone Encounter - Shantell Bunch MA - 01/03/2024 9:35 AM EDT Please call to schedule follow up. Patient does not have a follow up scheduled. documented in this encounter Plan of Treatment Not on file documented as of this encounter Visit Diagnoses Diagnosis Primary insomnia Persistent disorder of initiating or maintaining sleep documented in this encounter Care Teams [employer] Music Teacher Relationship Specialty Start Date End Date Lucila Arnett NP [facility] [place] [address] PCP - General Family Medicine 11/11/23 Moi Rueda DO [address] [place] [address] PCP - FFS State [facility] 08/20/24 documented as of this encounter
--- OUTSIDE RECORDS SUMMARY | 2025-01-13 12:37 | XMS_ITS | Encounter Summary ---
Author Organization [facility] [employer] [facility] tem Address [id number] [address] [place] [address] Care Team Providers Care Twisting Frame Fixer Name Role Phone Unavailable Primary Care Provider Unavailabl e Reason for Referral * Diagnostic Imaging (Routine) - Pending Review Specialty Diagnoses / Procedures Referred By Contac t Referred To Contact Maternal and Medicine Diagnoses Endometriosis History of delivery, currently Prior with placenta abruption in first trimester, antepartum Procedures US M with or without consult Gennaro Zepeda MD [address] [place] [address] 02/18/2024 [place] [address] Phone: tel: fax: Maternal- Medicine at [address] [phone] Phone: tel: fax: Referral ID Status Reason Start Date Expiration Date V isits Requested Visits Authorized [id number] Pending Review 01/21/2024 01/20/2025 1 1 Encounter Details Date Type Department Care Team (Late st Contact Info) Description 01/21/2024 Orders Only Maternal- Medicine at [address] [phone] Marisol Bhakta, JOSESITO Endometriosis (Primary Dx); History of delivery, currently ; Prior with placenta abruption in first trimester, antepartum Social History Tobacco Use Types Packs/Day Years Used Date Smoking Tobacco: Never Smokeless Tobacco: Never Alcohol Use Standard Drinks/Week Comments Not Currently 0 (1 standard drink = 0.6 oz pur e alcohol) Hunger Screening Answer Date Recorded Within the past 12 months we worried whether our food would run out before we got money to buy more. Never True 01/21/2024 Within the past 12 months th e food we bought just didn't last and we didn't have money to get more. Never True 01/21/2024 Comments Yes Sex and Gender Information Value Date Recorded Sex Assigned at Not on file Legal Sex Female 3:34 PM EDT Gender Identity Not on file Sexual Orientation Not on file documented as of this encounter Plan of Treatment Not on file documented as of this encounter Results * [facility] [place] COMPREHENSIVE ANATOMIC SURVEY (02/25/2024 2:45 PM EDT) Anatomical Region Laterality Modality OB-HOUSE MANAGER Ultrasound 02/25/2024 2:21 PM EDT Impressions 02/26/2024 5:39 PM EDT IMPRESSION: 1. Single intrauterine with expected interval growth from the previous ultrasound. 2. Echogenic focus identified in the cardiac ventricle. 3. Posterior low lying placenta identified 4. Placenta lakes identified. 5. Transvaginal Cervical Length = 4.9 cm. RECOMMENDATIONS: 1. Please see follow up [facility] documentation from today's encounter. 2. Patient is scheduled in two weeks for cervical length. 3. Patient is scheduled in four weeks to complete the anatomic survey and cervical length. 4. Subsequent follow up or other follow up as clinically determined by primary OB provider unless otherwise specified by MFM. 5. Results forwarded to ordering provider so they can follow up with the patient as necessary. Narrative 02/26/2024 5:39 PM EDT OBSTETRICS REPORT (Signed Final 02/26/2024 17:39) PATIENT INFO: ID #: [id number] : [birth year] (28 yrs)(F) Name: GOLDIE VERMA Visit Date: 02/25/2024 14:21 PERFORMED BY: Attending: Tammy Bacon MD Performed By: Jennifer Gonzalez RDIL Referred By: Moi Rueda DO Ref. Address: [address] [place] [address] [place] [address] Location: [facility]aternal Medicine [place] SERVICE(S) PROVIDED: Comprehensive Anatomic Survey 56698 OB Transvaginal 72496 INDICATIONS: Screening for anatomic survey Z36.89 Screening for cervical length Z36.86 History of previous with O09.899 delivery Supervision of other high risk , O09.90 antepartum. h/o placental abruption Low lying placenta O44.40 VITAL SIGNS: Weight (lb): 154.2 Height: 5'11 BMI: 21.5 EVALUATION: Num Of Fetuses: 1 Heart Rate(bpm): 157 Cardiac Activity: Present & appears normal Presentation: Transverse - Head maternal right Placenta: Posterior, low lying P. Cord Insertion: Eccentric (>2cm from edge) Amniotic Fluid FROYLAN FV: Subjectively within normal limits BIOMETRY: BPD: 38.3 mm G.Age: 17w 5d 24 % OFD: 51.7 mm HC: 144.7 mm G.Age: 17w 5d 15 % AC: 131.4 mm G.Age: 18w 5d 60 % FL: 27.6 mm G.Age: 18w 3d 50 % HUM: 25.9 mm G.Age: 18w 1d 50 % CER: 18.9 mm G.Age: 18w 4d 59 % NFT: 2.78 mm NB: 5.62 mm 42 % > 1 MoM LV: 7.3 mm CM: 1.6 mm TIB: 23.7 mm G.Age: 18w 3d 58 % CI: 74.1 % 70 - 86 FL/HC: 19.1 % 15.8 - 18 HC/AC: 1.10 1.07 - 1.29 FL/BPD: 72.1 % FL/AC: 21.0 % 20 - 24 Est. FW: 240 gm 0 lb 8 oz 55 % OB HISTORY: : 3 Term: 1 Soren: 1 Livin GESTATIONAL AGE: LMP: 18w 2d Date: 10/20/23 SINA: 07/26/24 U/S Today: 18w 1d SINA: 07/27/24 Best: 18w 2d Det. By: LMP (10/20/23) SINA: 07/26/24 TARGETED ANATOMY: Central Nervous System Calvarium/Cranial V.: Appears normal Intracranial Kelsi: Appears normal Cavum: Appears normal Lateral Ventricles: Appears normal Choroid Plexus: Appears normal Cereb./Vermis: Not well visualized Cisterna Magna: Appears normal Midline Falx: Appears Normal Spine Cervical: Could not document Thoracic: Could not document Lumbar: Could not document Sacral: Could not document Head/Neck Face: Appears normal Lips: Not well visualized Neck: Appears normal Nuchal Fold: Appears normal Nasal Bone: Present Profile: Appears normal Orbits/Eyes: Appears normal Mandible: Appears Normal Maxilla: Appears normal Thorax Thoracic Contour: Appears normal Lungs: Appears normal 4 Chamber View: Echogenic focus R Cardiac Activity: Appears Normal Cardiac Rhythm: Normal Cardiac Situs: Appears normal Rt Outflow Tract: Appears normal Lt Outflow Tract: Appears normal Aortic Arch: Appears normal Ductal Arch: Appears normal SVC: Appears Normal Interventr. Septum: Appears Normal Cardiac [place]: Appears normal Diaphragm: Appears normal 3 Vessel View: Appears normal 3 V Trachea View: Appears Normal IVC: Appears normal Abdomen Ventral Wall: Appears normal Cord Insertion: Appears normal Situs: Appears normal Stomach: Appears normal Liver: Appears normal Lt Kidney: Appears normal Rt Kidney: Appears normal Bladder: Appears normal Extremities Lt Humerus: Appears normal Rt Humerus: Appears normal Lt Forearm: Appears normal Rt Forearm: Appears normal Lt Hand: Appears normal Rt Hand: Appears normal Lt Femur: Appears normal Rt Femur: Appears normal Lt Lower Leg: Appears normal Rt Lower Leg: Appears normal Lt Foot: Appears normal Rt Foot: Appears normal Other Umbilical Cord: Appears normal Genitalia: Female CERVIX UTERUS ADNEXA: Cervix Length: 4.9 cm. Appears closed, without funnelling Uterus Gravid uterus Right Ovary Visualized Left Ovary Not visualized due to overlying bowel Cul De Sac No fluid seen Adnexa No adnexal masses identified COMMENTS: 1. Ultrasound is not diagnostic for chromosomal abnormalities, will not detect all structural abnormalities, and is not diagnostic for genetic disorders even if multiple exams are performed during a given . 2. In addition to the trans abdominal approach, a trans vaginal ultrasound was also performed to optimize the visualization of the lower uterine segment and the cervix. 3. For people with negative serum or cfDNA screening results and an isolated EIF, we recommend no further evaluation, as this finding is a normal variant of no clinical importance with no indication for echocardiography, follow-up ultrasound imaging, or evaluation. 4. anatomic survey is incomplete due to position. Tammy Bacon MD Electronically Signed Final Report 02/26/2024 17:39 Procedure Tammy Lu MD - 02/26/2024 OBSTETRICS REPORT (Signed Final 02/26/2024 17:39) PATIENT INFO: ID #: [id number] : [birth year] (28 yrs)(F) Name: GOLDIE VERMA Visit Date: 02/25/2024 14:21 PERFORMED BY: Attending: Tammy Bacon MD Performed By: Jennifer Gonzalez RDMS Referred By: Moi Mustafa. Address: [address] [place] [address] [place] [address] Location: Maternal Medicine [place] SERVICE(S) PROVIDED: Comprehensive Anatomic Survey 88802 OB Transvaginal 78991 INDICATIONS: Screening for anatomic survey Z36.89 Screening for cervical length Z36.86 History of previous with O09.899 delivery Supervision of other high risk , O09.90 antepartum. h/o placental abruption Low lying placenta O44.40 VITAL SIGNS: Weight (lb): 154.2 Height: 5'11 BMI: 21.5 EVALUATION: Num Of Fetuses: 1 Heart Rate(bpm): 157 Cardiac Activity: Present & appears normal Presentation: Transverse - Head maternal right Placenta: Posterior, low lying P. Cord Insertion: Eccentric (>2cm from edge) Amniotic Fluid FROYLAN FV: Subjectively within normal limits BIOMETRY: BPD: 38.3 mm G.Age: 17w 5d 24 % OFD: 51.7 mm HC: 144.7 mm G.Age: 17w 5d 15 % AC: 131.4 mm G.Age: 18w 5d 60 % FL: 27.6 mm G.Age: 18w 3d 50 % HUM: 25.9 mm G.Age: 18w 1d 50 % CER: 18.9 mm G.Age: 18w 4d 59 % NFT: 2.78 mm NB: 5.62 mm 42 % > 1 MoM LV: 7.3 mm CM: 1.6 mm TIB: 23.7 mm G.Age: 18w 3d 58 % CI: 74.1 % 70 - 86 FL/HC: 19.1 % 15.8 - 18 HC/AC: 1.10 1.07 - 1.29 FL/BPD: 72.1 % FL/AC: 21.0 % 20 - 24 Est. FW: 240 gm 0 lb 8 oz 55 % OB HISTORY: : 3 Term: 1 Soren: 1 Livin GESTATIONAL AGE: LMP: 18w 2d Date: 10/20/23 SINA: 07/26/24 U/S Today: 18w 1d SINA: 07/27/24 Best: 18w 2d Det. By: LMP (10/20/23) SINA: 07/26/24 TARGETED ANATOMY: Central Nervous System Calvarium/Cranial V.: Appears normal Intracranial Kelsi: Appears normal Cavum: Appears normal Lateral Ventricles: Appears normal Choroid Plexus: Appears normal Cereb./Vermis: Not well visualized Cisterna Magna: Appears normal Midline Falx: Appears Normal Spine Cervical: Could not document Thoracic: Could not document Lumbar: Could not document Sacral: Could not document Head/Neck Face: Appears normal Lips: Not well visualized Neck: Appears normal Nuchal Fold: Appears normal Nasal Bone: Present Profile: Appears normal Orbits/Eyes: Appears normal Mandible: Appears Normal Maxilla: Appears normal Thorax Thoracic Contour: Appears normal Lungs: Appears normal 4 Chamber View: Echogenic focus R Cardiac Activity: Appears Normal Cardiac Rhythm: Normal Cardiac Situs: Appears normal Rt Outflow Tract: Appears normal Lt Outflow Tract: Appears normal Aortic Arch: Appears normal Ductal Arch: Appears normal SVC: Appears Normal Interventr. Septum: Appears Normal Cardiac [place]: Appears normal Diaphragm: Appears normal 3 Vessel View: Appears normal 3 V Trachea View: Appears Normal IVC: Appears normal Abdomen Ventral Wall: Appears normal Cord Insertion: Appears normal Situs: Appears normal Stomach: Appears normal Liver: Appears normal Lt Kidney: Appears normal Rt Kidney: Appears normal Bladder: Appears normal Extremities Lt Humerus: Appears normal Rt Humerus: Appears normal Lt Forearm: Appears normal Rt Forearm: Appears normal Lt Hand: Appears normal Rt Hand: Appears normal Lt Femur: Appears normal Rt Femur: Appears normal Lt Lower Leg: Appears normal Rt Lower Leg: Appears normal Lt Foot: Appears normal Rt Foot: Appears normal Other Umbilical Cord: Appears normal Genitalia: Female CERVIX UTERUS ADNEXA: Cervix Length: 4.9 cm. Appears closed, without funnelling Uterus Gravid uterus Right Ovary Visualized Left Ovary Not visualized due to overlying bowel Cul De Sac No fluid seen Adnexa No adnexal masses identified COMMENTS: 1. Ultrasound is not diagnostic for chromosomal abnormalities, will not detect all structural abnormalities, and is not diagnostic for genetic disorders even if multiple exams are performed during a given . 2. In addition to the trans abdominal approach, a trans vaginal ultrasound was also performed to optimize the visualization of the lower uterine segment and the cervix. 3. For people with negative serum or cfDNA screening results and an isolated EIF, we recommend no further evaluation, as this finding is a normal variant of no clinical importance with no indication for echocardiography, follow-up ultrasound imaging, or evaluation. 4. anatomic survey is incomplete due to position. Tammy Bacon MD Electronically Signed Final Report 02/26/2024 17:39 IMPRESSION: IMPRESSION: 1. Single intrauterine with expected interval growth from the previous ultrasound. 2. Echogenic focus identified in the cardiac ventricle. 3. Posterior low lying placenta identified 4. Placenta lakes identified. 5. Transvaginal Cervical Length = 4.9 cm. RECOMMENDATIONS: 1. Please see follow up [facility] documentation from today's encounter. 2. Patient is scheduled in two weeks for cervical length. 3. Patient is scheduled in four weeks to complete the anatomic survey and cervical length. 4. Subsequent follow up or other follow up as clinically determined by primary OB provider unless otherwise specified by MFM. 5. Results forwarded to ordering provider so they can follow up with the patient as necessary. Gennaro Zepeda MD [facility] ORDERABLES Final Result documented in this encounter Visit Diagnoses Diagnosis Endometriosis- Primary Endometriosis, site unspecified History of delivery, currently with history of pre-term labor Prior with placenta abruption in first trimester, antepartum Endometriosis Endometriosis, site unspecified History of delivery, currently with history of pre-term labor Prior with placenta abruption in first trimester, antepartum Encounter for other specified screening Encounter for screening for cervical length Supervision of high risk , unspecified, unspecified trimester Low lying placenta nos or without hemorrhage, unspecified trimester documented in this encounter
--- OUTSIDE RECORDS SUMMARY | 2025-01-13 12:37 | XMS_ITS | Encounter Summary ---
Author Organization [facility] Address [address] [place] [address] Care Team Providers Care Arrt Technologist Name Role Phone Lucila Arnett NP Primary Care Provider Moi Rueda DO Unavailable Encounter Details Date Type Department Care Team (Late st Contact Info) Description 09/01/2024 Abstract [facility] [address] [place] [phone] Moi Rueda DO [address] [place], [...] on filedocumented in this encounter Care Teams Arrt Technologist Relationship Specialty Start Date End Date Lucila Arnett NP [address] [facility] [place] [address] PCP - General Family Medicine 11/11/23 Moi Rueda DO [address] [place], [place] [id number] PCP - FFS State SHIP MANAGER 08/20/24 documented as of this encounter
--- OUTSIDE RECORDS SUMMARY | 2025-01-13 12:37 | XMS_ITS | Encounter Summary ---
Author Organization [facility] [employer] [facility] tem Address [id number] [address] [place] [address] Care Team Providers Care Care Giver Name Role Phone Unavailable Primary Care Provider Unavailabl e Reason for Referral * Diagnostic Imaging (Routine) - Pending Review Specialty Diagnoses / Procedures Referred By Contac Referred To Contact Maternal and Medicine Diagnoses Echogenic intracardiac focus of fetus on ultrasound Placental abnormality in second trimester History of placenta abruption History of delivery, currently Procedures US [facility] with or without consult Tammy Bacon MD [address], [address] [place] [address] Phone: tel: fax: Maternal- Medicine at [facility] [address] [place] [address] Phone: tel: fax: Referral ID Status Reason Start Date Expiration Date V isits Requested Visits Authorized [id number] Pending Review 02/26/2024 02/25/2025 1 1 * Diagnostic Imaging (Routine) - Pending Review Specialty Diagnoses / Procedures Referred By Contac t Referred To Contact Maternal and Medicine Diagnoses Echogenic intracardiac focus of fetus on ultrasound Placental abnormality in second trimester History of placenta abruption History of delivery, currently Procedures US [facility] with or without consult Tammy Bacon MD [address], [address] [place] [address] Phone: tel: fax: Maternal- Medicine at [facility] [address] [place] [address] Phone: tel: fax: Referral ID Status Reason Start Date Expiration Date V isits Requested Visits Authorized [id number] Pending Review 02/26/2024 02/25/2025 1 1 Encounter Details Date Type Department Care Team (Late st Contact Info) Description 02/26/2024 Orders Only Maternal- Medicine at [place] [address] [place] [address] Lucila Carvajal, JOSESITO Echogenic intracardiac focus of fetus on ultrasound (Primary Dx); Placental abnormality in second trimester; History of placenta abruption; History of delivery, currently Social History Tobacco Use Types Packs/Day Years [...] documented as of this encounter Results * US MFM OB TRANSVAGINAL (03/31/2024 11:17 AM EDT) Anatomical Region Laterality Modality OB-WHEEL OF FORTUNE DEALER Ultrasound 03/31/2024 11:1 4 AM EDT Impressions 03/31/2024 1:43 PM EDT IMPRESSION: 1. Single intrauterine . 2. Transvaginal Cervical Length = 4.6 cm. RECOMMENDATIONS: 1. Please see [facility] recommendations from prior clinical and/or ultrasound report documentation. 2. Subsequent follow up or other follow up as clinically determined by primary OB provider unless otherwise specified by [facility]. 3. Results forwarded to ordering provider so they can follow up with the patient as necessary. Narrative 03/31/2024 1:43 PM EDT OBSTETRICS REPORT (Signed Final 03/31/2024 13:43) PATIENT INFO: ID #: [id number] : [birth year] (28 yrs)(F) Name: GOLDIE VERMA Visit Date: 03/31/2024 11:14 PERFORMED BY: Attending: Tammy Bacon MD Performed By: Holly Krause RDMS Referred By: Moi Rueda DO Ref. Address: [address] [place] [address] [place] [address] Location: [facility] SERVICE(S) PROVIDED: OB Transvaginal [id number] INDICATIONS: Screening for cervical length Z36.86 History of previous with O09.899 delivery Supervision of other high risk , O09.90 antepartum. h/o placental abruption VITAL SIGNS: Weight (lb): 154 Height: 5'11 BMI: 21.48 EVALUATION: Num Of Fetuses: 1 Heart Rate(bpm): 146 Cardiac Activity: Present & appears normal Presentation: Cephalic BIOMETRY: OB HISTORY: : 3 Term: 1 Soren: 1 Livin GESTATIONAL AGE: LMP: 23w 2d Date: 10/20/23 SINA: 07/26/24 Best: 23w 2d Det. By: LMP (10/20/23) SINA: 07/26/24 CERVIX UTERUS ADNEXA: Cervix Length: 4.6 cm. Functional length measured Uterus Gravid uterus Tammy Bacon MD Electronically Signed Final Report 03/31/2024 13:43 Procedure Tammy Lu MD - 03/31/2024 OBSTETRICS REPORT (Signed Final 03/31/2024 13:43) PATIENT INFO: ID #: [id number] : [birth year] (28 yrs)(F) Name: GOLDIE Rasmussen BAYRON Visit Date: 03/31/2024 11:14 PERFORMED BY: Attending: Tammy Bacon MD Performed By: Holly Krause [facility] Referred By: Moi Mustafa. Address: [address] [place] [address] [place] [address] Location: [facility] SERVICE(S) PROVIDED: OB Transvaginal 40856 INDICATIONS: Screening for cervical length Z36.86 History of previous with O09.899 delivery Supervision of other high risk , O09.90 antepartum. h/o placental abruption VITAL SIGNS: Weight (lb): 154 Height: 5'11 BMI: 21.48 EVALUATION: Num Of Fetuses: 1 Heart Rate(bpm): 146 Cardiac Activity: Present & appears normal Presentation: Cephalic BIOMETRY: OB HISTORY: : 3 Term: 1 Soren: 1 Livin GESTATIONAL AGE: LMP: 23w 2d Date: 10/20/23 SINA: 07/26/24 Best: 23w 2d Det. By: LMP (10/20/23) SINA: 07/26/24 CERVIX UTERUS ADNEXA: Cervix Length: 4.6 cm. Functional length measured Uterus Gravid uterus Tammy Bacon MD Electronically Signed Final Report 03/31/2024 13:43 IMPRESSION: IMPRESSION: 1. Single intrauterine . 2. Transvaginal Cervical Length = 4.6 cm. RECOMMENDATIONS: 1. Please see [facility] recommendations from prior clinical and/or ultrasound report documentation. 2. Subsequent follow up or other follow up as clinically determined by primary OB provider unless otherwise specified by [facility]. 3. Results forwarded to ordering provider so they can follow up with the patient as necessary. us Tammy Bacon MD IMG US ORDERABLES Final Re sult * US MFM OB FOLLOW-UP, 1 FETUS (03/25/2024 11:25 AM EDT) Anatomical Region Laterality Modality OB-WHEEL OF FORTUNE DEALER Ultrasound 03/25/2024 11:2 0 AM EDT Impressions 03/25/2024 11:50 AM EDT IMPRESSION: 1. Single intrauterine with expected interval growth from the previous ultrasound. 2. anatomic survey did not reveal sonographic evidence of any gross structural abnormalities. 3. Transvaginal Cervical Length = 4.6 cm. 4. Echogenic intracardiac focus not visualized on today's exam due to position. 5. Posterior low lying placenta appears resolved on today's imaging. RECOMMENDATIONS: 1. The patient is scheduled in one week for cervical length protocol. 2. Subsequent follow up or other follow up as clinically determined by primary OB provider unless otherwise specified by MFM. 3. Results forwarded to ordering provider so they can follow up with the patient as necessary. Narrative 03/25/2024 11:50 AM EDT OBSTETRICS REPORT (Signed Final 03/25/2024 11:50) PATIENT INFO: ID #: [id number] : [birth year] (28 yrs)(F) Name: GOLDIE VERMA Visit Date: 03/25/2024 11:20 PERFORMED BY: Attending: Tammy Bacon MD Performed By: Cristy Iglesias RDMS Referred By: Moi Mustafa. Address: [address] [place] [address] [place] [address] Location: [facility] SERVICE(S) PROVIDED: OB Follow-up, 1 fetus [id number] INDICATIONS: Screening for follow-up survey Z36.2 Screening for cervical length Z36.86 History of previous with O09.899 delivery Supervision of other high risk , O09.90 antepartum. h/o placental abruption VITAL SIGNS: Weight (lb): 154.2 Height: 5'11 BMI: 21.5 EVALUATION: Num Of Fetuses: 1 Heart Rate(bpm): 157 Cardiac Activity: Present & appears normal Presentation: Cephalic Placenta: Posterior, away from cervical os Amniotic Fluid FROYLAN FV: Subjectively within normal limits BIOMETRY: BPD: 52.2 mm G.Age: 21w 6d 24 % OFD: 68 mm HC: 194.1 mm G.Age: 21w 4d 11 % AC: 167.5 mm G.Age: 21w 5d 22 % FL: 39.5 mm G.Age: 22w 5d 49 % HUM: 36.4 mm G.Age: 22w 5d 51 % CER: 24.3 mm G.Age: 22w 2d 62 % LV: 4.6 mm CM: 4.7 mm TIB: 35.4 mm G.Age: 23w 2d 71 % CI: 76.8 % 70 - 86 FL/HC: 20.4 % 18.4 - 20.2 HC/AC: 1.16 1.06 - 1.25 FL/BPD: 75.7 % 71 - 87 FL/AC: 23.6 % 20 - 24 Est. FW: 478 gm 1 lb 1 oz 29 % OB HISTORY: : 3 Term: 1 Soren: 1 Livin GESTATIONAL AGE: LMP: 22w 3d Date: 10/20/23 SINA: 07/26/24 U/S Today: 22w 0d SINA: 07/29/24 Best: 22w 3d Det. By: LMP (10/20/23) SINA: 07/26/24 TARGETED ANATOMY: Central Nervous System Calvarium/Cranial V.: Appears normal Intracranial Kelsi: Appears normal Cavum: Appears normal Parenchyma: Appears Normal Lateral Ventricles: Appears normal Choroid Plexus: Previously seen Cereb./Vermis: Appears normal Cisterna Magna: Appears normal Midline Falx: Previously seen Spine Cervical: Appears normal Thoracic: Appears normal Lumbar: Appears normal Sacral: Appears normal Head/Neck Face: Appears normal Lips: Appears normal Neck: Previously seen Nuchal Fold: Previously seen Nasal Bone: Previously seen Profile: Previously seen Orbits/Eyes: Previously seen Mandible: Previously seen Maxilla: Previously seen Thorax Thoracic Contour: Appears normal Lungs: Previously seen 4 Chamber View: Appears normal Cardiac Activity: Appears Normal Cardiac Rhythm: Normal Cardiac Situs: Appears normal Rt Outflow Tract: Previously seen Lt Outflow Tract: Previously seen Aortic Arch: Previously seen Ductal Arch: Previously seen SVC: Previously seen Interventr. Septum: Appears Normal Cardiac Pruden: Appears normal Diaphragm: Appears normal 3 Vessel View: Previously seen 3 V Trachea View: Previously seen IVC: Previously seen Crossing: Previously seen Abdomen Ventral Wall: Previously seen Cord Insertion: Previously seen Situs: Previously seen Stomach: Appears normal Lt Kidney: Appears normal Rt Kidney: Appears normal Bladder: Appears normal Bowel: Appears normal Extremities Lt Humerus: Previously seen Rt Humerus: Previously seen Lt Forearm: Previously seen Rt Forearm: Previously seen Lt Hand: Previously seen Rt Hand: Previously seen Lt Femur: Previously seen Rt Femur: Previously seen Lt Lower Leg: Previously seen Rt Lower Leg: Previously seen Lt Foot: Previously seen Rt Foot: Previously seen Other Umbilical Cord: Appears normal Masses: None visualized Genitalia: Previously seen CERVIX UTERUS ADNEXA: Cervix Length: 4.6 cm. Appears closed, without funnelling Uterus Gravid uterus Right Ovary Not visualized Left Ovary Not visualized Adnexa No adnexal masses identified COMMENTS: 1. [...] the lower uterine segment and the cervix. Tammy Bacon MD Electronically Signed Final Report 03/25/2024 11:50 Tammy Lr MD - 03/25/2024 OBSTETRICS REPORT (Signed Final 03/25/2024 11:50) PATIENT INFO: ID #: [id number] : [birth year] (28 yrs)(F) Name: GOLDIE VERMA Visit Date: 03/25/2024 11:20 PERFORMED BY: Attending: Tammy Bacon MD Performed By: Cristy Iglesias RDMS Referred By: Moi Rueda DO Ref. Address: [address] [place] [address] [place] [address] Location: [facility] SERVICE(S) PROVIDED: OB Follow-up, 1 fetus [id number] INDICATIONS: Screening for follow-up survey Z36.2 Screening for cervical length Z36.86 History of previous with O09.899 delivery Supervision of other high risk , O09.90 antepartum. h/o placental abruption VITAL SIGNS: Weight (lb): 154.2 Height: 5'11 BMI: 21.5 EVALUATION: Num Of Fetuses: 1 Heart Rate(bpm): 157 Cardiac Activity: Present & appears normal Presentation: Cephalic Placenta: Posterior, away from cervical os Amniotic Fluid FROYLAN FV: Subjectively within normal limits BIOMETRY: BPD: 52.2 mm G.Age: 21w 6d 24 % OFD: 68 mm HC: 194.1 mm G.Age: 21w 4d 11 % AC: 167.5 mm G.Age: 21w 5d 22 % FL: 39.5 mm G.Age: 22w 5d 49 % HUM: 36.4 mm G.Age: 22w 5d 51 % CER: 24.3 mm G.Age: 22w 2d 62 % LV: 4.6 mm CM: 4.7 mm TIB: 35.4 mm G.Age: 23w 2d 71 % CI: 76.8 % 70 - 86 FL/HC: 20.4 % 18.4 - 20.2 HC/AC: 1.16 1.06 - 1.25 FL/BPD: 75.7 % 71 - 87 FL/AC: 23.6 % 20 - 24 Est. FW: 478 gm 1 lb 1 oz 29 % OB HISTORY: : 3 Term: 1 Soren: 1 Livin GESTATIONAL AGE: LMP: 22w 3d Date: 10/20/23 SINA: 07/26/24 U/S Today: 22w 0d SINA: 07/29/24 Best: 22w 3d Det. By: LMP (10/20/23) SINA: 07/26/24 TARGETED ANATOMY: Central Nervous System Calvarium/Cranial V.: Appears normal Intracranial Kelsi: Appears normal Cavum: Appears normal Parenchyma: Appears Normal Lateral Ventricles: Appears normal Choroid Plexus: Previously seen Cereb./Vermis: Appears normal Cisterna Magna: Appears normal Midline Falx: Previously seen Spine Cervical: Appears normal Thoracic: Appears normal Lumbar: Appears normal Sacral: Appears normal Head/Neck Face: Appears normal Lips: Appears normal Neck: Previously seen Nuchal Fold: Previously seen Nasal Bone: Previously seen Profile: Previously seen Orbits/Eyes: Previously seen Mandible: Previously seen Maxilla: Previously seen Thorax Thoracic Contour: Appears normal Lungs: Previously seen 4 Chamber View: Appears normal Cardiac Activity: Appears Normal Cardiac Rhythm: Normal Cardiac Situs: Appears normal Rt Outflow Tract: Previously seen Lt Outflow Tract: Previously seen Aortic Arch: Previously seen Ductal Arch: Previously seen SVC: Previously seen Interventr. Septum: Appears Normal Cardiac Pruden: Appears normal Diaphragm: Appears normal 3 Vessel View: Previously seen 3 V Trachea View: Previously seen IVC: Previously seen Crossing: Previously seen Abdomen Ventral Wall: Previously seen Cord Insertion: Previously seen Situs: Previously seen Stomach: Appears normal Lt Kidney: Appears normal Rt Kidney: Appears normal Bladder: Appears normal Bowel: Appears normal Extremities Lt Humerus: Previously seen Rt Humerus: Previously seen Lt Forearm: Previously seen Rt Forearm: Previously seen Lt Hand: Previously seen Rt Hand: Previously seen Lt Femur: Previously seen Rt Femur: Previously seen Lt Lower Leg: Previously seen Rt Lower Leg: Previously seen Lt Foot: Previously seen Rt Foot: Previously seen Other Umbilical Cord: Appears normal Masses: None visualized Genitalia: Previously seen CERVIX UTERUS ADNEXA: Cervix Length: 4.6 cm. Appears closed, without funnelling Uterus Gravid uterus Right Ovary Not visualized Left Ovary Not visualized Adnexa No adnexal masses identified COMMENTS: 1. [...] the lower uterine segment and the cervix. Tammy Bacon MD Electronically Signed Final Report 03/25/2024 11:50 IMPRESSION: IMPRESSION: 1. Single intrauterine with expected interval growth from the previous ultrasound. 2. anatomic survey did not reveal sonographic evidence of any gross structural abnormalities. 3. Transvaginal Cervical Length = 4.6 cm. 4. Echogenic intracardiac focus not visualized on today's exam due to position. 5. Posterior low lying placenta appears resolved on today's imaging. RECOMMENDATIONS: 1. The patient is scheduled in one week for cervical length protocol. 2. Subsequent follow up or other follow up as clinically determined by primary OB provider unless otherwise specified by M. 3. Results forwarded to ordering provider so they can follow up with the patient as necessary. us Tammy Bacon MD [facility] US ORDERABLES Final Re sult documented in this encounter Visit Diagnoses Diagnosis Echogenic intracardiac focus of fetus on ultrasound- Primary Placental abnormality in second trimester History of placenta abruption History of delivery, currently with history of pre-term labor Echogenic intracardiac focus of fetus on ultrasound Placental abnormality in second trimester History of placenta abruption History of delivery, currently with history of pre-term labor Encounter for other screening follow-up Encounter for screening for cervical length Supervision of high risk , unspecified, unspecified trimester Echogenic intracardiac focus of fetus on ultrasound Placental abnormality in second trimester History of placenta abruption History of delivery, currently with history of pre-term labor Encounter for screening for cervical length Supervision of high risk , unspecified, unspecified trimester documented in this encounter
--- OUTSIDE RECORDS SUMMARY | 2025-01-13 12:37 | XMS_ITS | Encounter Summary ---
Author Organization [facility] Address [address] [place] [address] Care Team Providers Care World Travel Counselor Name Role Phone MelquiadesJaspal Fay CHANG Primary Care Provider Won Rueda DO Unavailable Encounter Details Date Type Department Care Team (Late st Contact Info) Description 06/20/2024 Clinisync Result Encounter [facility] Department Unsolicited Won Rueda DO [address] [place] [address] Social History Tobacco Use Types [...] Diagnosis Comments US OB BPP W NON-STRESS 06/20/2024 12:30 PM EDT documented in this encounter Results * US OB BPP W NON-STRESS (06/20/2024 12:30 PM EDT) Anatomical Region Laterality Modality Other 06/20/2024 12:3 0 PM EDT Narrative 06/20/2024 12:33 PM EDT The [address] [address] Ultrasound Report Signed Patient: GOLDIE VERMA MR#: [id number] : 1995 Acct:[id number] Age/Sex: 28 / F ADM Date: 06/20/24 Loc: US Attending Dr: Won Rueda D.O. Ordering Physician: Won Rueda D.O. Date of Service: 06/20/24 Procedure(s): US OB BPP w non-stress Accession Number(s): [id number] cc: Won Rueda D.O.; JASPAL MAXWELL [place] [id number] Patient Name: GOLDIE VERMA MRN: [facility]:[id number] date: 1995 Sex: F Assigned Patient Location: [facility] Current Patient Location: Accession/Order Number: [id number] Exam Date: 06/20/2024 11:04 Report Date: 06/20/2024 12:30 At the request of: WON RUEDA Procedure: US OB BPP w non-stress EXAMINATION: US OB BPP w non-stress HISTORY: History of delivery COMPARISON: No relevant comparison available. TECHNIQUE: Ultrasound biophysical profile was performed in the radiology department. non-reactive stress testing was performed by nursing staff in the birthing center. FINDINGS: BREATHING MOVEMENTS: 2 GROSS BODY MOVEMENTS: 2 TONE: 2 QUALITATIVE AMNIOTIC FLUID VOLUME: 2 PRESENTATION: CEPHALIC HEART RATE: 129.19 bpm AMNIOTIC FLUID VOLUME: 14.5 cm GESTATIONAL AGE: 34w6d US/US OB BPP w non-stress IMPRESSION: Total biophysical profile score: 8 Electronically authenticated by: DARLINE ESPITIA Date: 06/20/2024 12:30 Dictated By: Darline Espitia M.D. Signed By: 06/20/24 1233 DD/ 1230 TD/TT: Innovation Analyst: Procedure Note Radiology, Radiologist, MD - 06/20/2024 [place] [address] Ultrasound Report Signed Patient: GOLDIE VERMAMR#: [id number] : 1995Acct:[id number] Age/Sex: 28 / FADM Date: 06/20/24 Loc: US Attending Dr: Won Rueda D.O. Ordering Physician: Won Rueda D.O. Date of Service: 06/20/24 Procedure(s): US OB BPP w non-stress Accession Number(s): [id number] cc: Won Rueda D.O.; JASPAL MAXWELL [facility] [address] [place] [id number] Patient Name: GOLDIE VERMA MRN: [facility]:[id number] date: 1995 Sex: F Assigned Patient Location: [facility] Current Patient Location: Accession/Order Number: [id number] Exam Date: 06/20/2024 11:04 Report Date: 06/20/2024 12:30 At the request of: WON RUEDA Procedure: US OB BPP w non-stress EXAMINATION: US OB BPP w non-stress HISTORY: History of delivery COMPARISON: No relevant comparison available. TECHNIQUE: Ultrasound biophysical profile was performed in the radiology department. non-reactive stress testing was performed by nursingstaff in the birthing center. FINDINGS: BREATHING MOVEMENTS: 2 GROSS BODY MOVEMENTS: 2 TONE: 2 QUALITATIVE AMNIOTIC FLUID VOLUME: 2 PRESENTATION: CEPHALIC HEART RATE: 129.19 bpm AMNIOTIC FLUID VOLUME: 14.5 cm GESTATIONAL AGE: 34w6d US/US OB BPP w non-stress IMPRESSION: Total biophysical profile score: 8 Electronically authenticated by: DARLNIE ESPITIA Date: 06/20/2024 12:30 Dictated By: Darline Espitia M.D. Signed By:06/20/24 1233 DD/ 1230 TD/TT: Innovation Analyst: us Won Rueda DO [facility] Final Result documented in this encounter Visit Diagnoses Not on filedocumented in this encounter Care Teams World Travel Counselor Relationship Specialty Start Date End Date Jaspal Maxwell NP [address] [facility] [address] [place] [id number] PCP - General Family Medicine 11/11/23 Won Rueda DO [address] [place] [address] [place] [address] PCP - FFS [facility] 08/20/24 documented as of this encounter
--- OUTSIDE RECORDS SUMMARY | 2025-01-13 12:37 | XMS_ITS | Encounter Summary ---
Author Organization [facility] Address [facility] [place] [address] Care Team Providers Care Union Contract Representative Name Role Phone Lucila Arnett SOFTWARE TEST ANALYST Unavailable [phone] Source Comments In the event this information is protected by the Federal Confidentiality of Alcohol and Drug AbusePatient Records regulations: The Federal rules restrict any use of the information to criminally investigate or prosecute any alcohol or drug abuse patient.[facility] Reason for Referral * Consult, Test, Treat (Routine) - Authorized Specialty Diagnoses / Procedures Referred By Harris gautam Referred To Contact Diagnoses Endometriosis Procedures CONSULT TO [facility] OFFICE/OUTPATIENT [facility] 60 MINUTES Lucila Arnett NP [address] [place] [address] Phone: tel: fax: Referral ID Status Reason Start Date Expiration Date Visits Requested Visits Authorized [id number] Authorized PCP Requested Referral Auto-Generate d Referral 01/11/2025 01/11/2026 1 1 Encounter Details Date Type Department Care Team (Latest Contact Info) Description 01/11/2025 Transcribe Orders Referring Physician [address] [place] [phone] Lucila Arnett NP [address] [place] [address] Endometriosis (Primary Dx) Social History Tobacco Use Types Packs/Day Years Used Date Smoking Tobacco: Never Assessed Comments Unknown Sex and Gender Information Value Date Recorded Sex Assigned at Not on file Legal Sex Female 11:37 AM EDT Gender Identity Not on file Sexual Orientation Not on file documented as of this encounter Plan of Treatment Not on file documented as of this encounter Visit Diagnoses Diagnosis Endometriosis- Primary Endometriosis, site unspecified documented in this encounter Care Teams Union Contract Representative Relationship Specialty Start Date End Date Lucila Arnett NP [address] [place] [place] [address] Referring Nurse Practitioner 01/06/25 documented as of this encounter
--- OUTSIDE RECORDS SUMMARY | 2025-01-13 12:37 | XMS_ITS | Encounter Summary ---
Author Organization [facility] [employer] [facility] tem Address [id number] [address] [place] [address] Care Team Providers Care Wastewater Supervisor Name Role Phone Unavailable Primary Care Provider Unavailabl e Encounter Details Date Type Department Care Team (Late st Contact Info) Description 01/11/2024 Abstract Maternal- Medicine at [facility] [address] [facility] [place] [phone] Gennaro Zepeda MD [address] [place] [address] Social History Tobacco Use Types Packs/Day Years [...] Procedure Name Priority Date/Time Associated Diagnosis Comments RUBELLA IGG IMMUNE STATUS Routine 01/04/2024 TYPE AND SCREEN Routine 01/04/2024 HEMOGLOBIN A1C Routine 01/04/2024 HIV 1&2 AB/AG SCREEN (P24 AG) Routine 01/03/2024 RUBELLA IGG IMMUNE STATUS Routine 01/03/2024 TYPE AND SCREEN Routine 01/03/2024 documented in this encounter Results * Hemoglobin A1c (01/04/2024) Hemoglobin A1C 4.7 4.0 - 6.0 % MANUALLY TRANSCRIBED RESULTS us Scanning Provider External LAB BLOOD ORDERABLES Final Result MANUALLY TRANSCRIBED RESULTS * Type and screen (01/04/2024) Abo/Rh(D) O Positive MANUALLY TRANSCRIBED RESULTS Antibody Screen negative MANUALLY TRANSCRIBED RESULTS us Not In System Ref Prov BLOOD BANK TEST ORDERABLE S Final Result MANUALLY TRANSCRIBED RESULTS * Rubella IGG immune status (01/04/2024) Rubella immune IgG immune MANUALLY TRANSCRIBED RESULTS us Not In System Ref Prov LAB BLOOD ORDERABLES Marci l Result MANUALLY TRANSCRIBED RESULTS * HIV 1&2 AB/AG Screen (P24 AG) (01/03/2024) HIV 1&2 AB/AG non reactive MAN UALLY TRANSCRIBED RESULTS us Not In System Ref Prov LAB BLOOD ORDERABLES Marci l Result MANUALLY TRANSCRIBED RESULTS * Type and screen (01/03/2024) Antibody Screen negative MANUALLY TRANSCRIBED RESULTS us Not In System Ref Prov BLOOD BANK TEST ORDERABLE S Final Result MANUALLY TRANSCRIBED RESULTS * Rubella IGG immune status (01/03/2024) Rubella immune IgG 1.31 IU/mL MANUALLY TRANSCRIBED RESULTS us Not In System Ref Prov LAB BLOOD ORDERABLES Marci l Result MANUALLY TRANSCRIBED RESULTS documented in this encounter Visit Diagnoses Not on filedocumented in this encounter
--- OUTSIDE RECORDS SUMMARY | 2025-01-13 12:37 | XMS_ITS | Encounter Summary ---
Author Organization [facility] Address [address] [place] [address] Care Team Providers Care Machine Fur Cleaner Name Role Phone Melquiades Jaspal Fay GRADUATE NURSE Primary Care Provider Won Rueda DO Unavailable Encounter Details Date Type Department Care Team (Late st Contact Info) Description 06/27/2024 Clinisync Result Encounter [facility] External Department Unsolicited Won Rueda DO [address] [place] [address] Social History Tobacco Use Types [...] Diagnosis Comments US OB BPP W NON-STRESS 06/27/2024 11:49 AM EST documented in this encounter Results * US OB BPP W NON-STRESS (06/27/2024 11:49 AM EST) Anatomical Region Laterality Modality Other 06/27/2024 11:4 9 AM EST Narrative 06/27/2024 11:52 AM EST The [address] [address] Ultrasound Report Signed Patient: GOLDIE VERMA MR#: [id number] : 1995 Acct:[id number] Age/Sex: 28 / F ADM Date: 06/27/24 Loc: [facility] 250-[address]: Won Rueda D.O. Ordering Physician: Won Rueda D.O. Date of Service: 06/27/24 Procedure(s): US OB BPP w non-stress Accession Number(s): [id number] cc: oWn Rueda D.O.; JASPAL MAXWELL [place] [address] Patient Name: GOLDIE VERMA MRN: [facility]:[id number] date: 1995 Sex: F Assigned Patient Location: [facility] Current Patient Location: [facility] Accession/Order Number: [id number] Exam Date: 06/27/2024 11:00 Report Date: 06/27/2024 11:49 At the request of: WON RUEDA Procedure: US OB BPP w non-stress EXAMINATION: US OB BPP w non-stress HISTORY:H/O DELIVERY O09.091 COMPARISON: Ultrasound OB biophysical 06/20/2024 TECHNIQUE: Ultrasound biophysical profile was performed in the radiology department. BREATHING MOVEMENTS: 2 GROSS BODY MOVEMENTS: 2 TONE: 2 QUALITATIVE AMNIOTIC FLUID VOLUME: 2 PRESENTATION: CEPHALIC HEART RATE: 150 bpm AMNIOTIC FLUID VOLUME: 14.93 cm GESTATIONAL AGE: 35 weeks 6 days US/US OB BPP w non-stress IMPRESSION: Total biophysical profile score: 8 Electronically authenticated by: HARRISON SAXENA Date: 06/27/2024 11:49 Dictated By: Harrison Saxena M.D. Signed By: 06/27/24 1152 DD/ 1149 TD/TT: Firmware Manager: Procedure Note Radiology, Radiologist, MD - 06/27/2024 [place] [address] Ultrasound Report Signed Patient: GOLDIE VERMAMR#: [id number] : 1995Acct:[id number] Age/Sex: 28 / FADM Date: 06/27/24 Loc: [facility] 250-[address]: Won Rueda D.O. Ordering Physician: Won Rueda D.O. Date of Service: 06/27/24 Procedure(s): US OB BPP w non-stress Accession Number(s): [id number] cc: Wno Rueda D.O.; JASPAL MAXWELL [facility] [address] [place], [place] [address] Patient Name: GOLDIE VERMA MRN: [facility]:[id number] date: 1995 Sex: F Assigned Patient Location: [facility] Current Patient Location: [facility] Accession/Order Number: [id number] Exam Date: 06/27/2024 11:00 Report Date: 06/27/2024 11:49 At the request of: WON RUEDA Procedure: US OB BPP w non-stress EXAMINATION: US OB BPP w non-stress HISTORY:H/O DELIVERY O09.091 COMPARISON: Ultrasound OB biophysical 06/20/2024 TECHNIQUE: Ultrasound biophysical profile was performed in the radiology department. BREATHING MOVEMENTS: 2 GROSS BODY MOVEMENTS: 2 TONE: 2 QUALITATIVE AMNIOTIC FLUID VOLUME: 2 PRESENTATION: CEPHALIC HEART RATE: 150 bpm AMNIOTIC FLUID VOLUME: 14.93 cm GESTATIONAL AGE: 35 weeks 6 days US/US OB BPP w non-stress IMPRESSION: Total biophysical profile score: 8 Electronically authenticated by: HARRISON SAXENA Date: 06/27/2024 11:49 Dictated By: Harrison Saxena M.D. Signed By:06/27/24 1152 DD/ 1149 TD/TT: Firmware Manager: Won Rueda DO [facility] Final Result documented in this encounter Visit Diagnoses Not on filedocumented in this encounter Care Teams Machine Fur Cleaner Relationship Specialty Start Date End Date Jaspal Maxwell NP [address] [facility] [place] [address] PCP - General Family Medicine 11/11/23 Won Rueda DO [address] [place] [address] [place] [address] PCP - FFS State [facility] 08/20/24 documented as of this encounter
--- OUTSIDE RECORDS SUMMARY | 2025-01-13 12:37 | XMS_ITS | Encounter Summary ---
Author Organization [facility] Address [address] [place] [address] Care Team Providers Care Food Or Baggage Handling Rampman Name Role Phone Lucila Arnett NP Primary Care Provider Moi Rueda DO Unavailable Encounter Details Date Type Department Care Team (Late st Contact Info) Description 03/25/2024 Abstract [facility] BCP OB [address] [place] [address] Moi Rueda DO [address] [place], [facility] Social History Tobacco Use Types Packs/Day Years [...] on filedocumented in this encounter Care Teams Food Or Baggage Handling Rampman Relationship Specialty Start Date End Date Lucila Arnett NP [address] [place] [address] PCP - General Family Medicine 11/11/23 Moi Rueda DO [address] [place], [place] [id number] PCP - FFS State [facility] 08/20/24 documented as of this encounter
--- OUTSIDE RECORDS SUMMARY | 2025-01-13 12:37 | XMS_ITS | Encounter Summary ---
Author Organization [facility] Address [address] [place] [address] Care Team Providers Care Lung Puller Name Role Phone MelquiadesJaspal Fay CLINIC ASSISTANT Primary Care Provider Won Rueda DO Unavailable Encounter Details Date Type Department Care Team (Late st Contact Info) Description 06/06/2024 Clinisync Result Encounter [facility] External Department Unsolicited Won Rueda, [address] [facility] [place] [address] Social History Tobacco Use Types [...] Associated Diagnosis Comments US OB CERVICAL LENGTH 06/06/2024 2:47 PM EDT documented in this encounter Results * US OB CERVICAL LENGTH (06/06/2024 2:47 PM EDT) Anatomical Region Laterality Modality Other 06/06/2024 2:47 PM EDT Narrative 06/06/2024 2:49 PM EDT The [address] [address] Ultrasound Report Signed Patient: GOLDIE VERMA MR#: [id number] : 1995 Acct:[id number] Age/Sex: 28 / F ADM Date: 06/06/24 Loc: [facility] 250-1 Attending : Won Rueda D.O. Ordering Physician: Won Rueda D.O. Date of Service: 06/06/24 Procedure(s): US OB cervical length Accession Number(s): [id number] cc: Won Rueda D.O.; JASPAL MAXWELL [place] [id number] Patient Name: GOLDIE VERMA MRN: [id number] date: 1995 Sex: F Assigned Patient Location: [facility] Current Patient Location: [facility] Accession/Order Number: [id number] Exam Date: 06/06/2024 12:58 Report Date: 06/06/2024 14:47 At the request of: WON RUEDA Procedure: US OB cervical length EXAMINATION: US OB cervical length HISTORY: pre-term contractions COMPARISON: No relevant comparison available. FINDINGS: position: Cephalic presentation, longitudinal lie Heart rate: 130 beats minute Cervix: 3.5 cm, closed Clinical age: 32 weeks 6 days Clinical SINA: 07/26/2024 US/US OB cervical length IMPRESSION: Closed cervix measuring 3.5 cm in length Electronically authenticated by: DARLINE ESPITIA Date: 06/06/2024 14:47 Dictated By: Darline Espitia M.D. Signed By: 06/06/24 1449 DD/ 1447 TD/TT: Slip Box Changer: Procedure Note Radiology, Radiologist, MD - 06/06/2024 [place] [address] Ultrasound Report Signed Patient: GOLDIE VERMAMR#: [id number] : 1995Acct:[id number] Age/Sex: 28 / FADM Date: 06/06/24 Loc: [facility] 250-[address]: Won Rueda D.O. Ordering Physician: Won Rueda D.O. Date of Service: 06/06/24 Procedure(s): US OB cervical length Accession Number(s): [id number] cc: Won Rueda D.O.; JASPAL MAXWELL [facility] [address], [place] [address] Patient Name: GOLDIE VERMA MRN: [id number] date: 1995 Sex: F Assigned Patient Location: [facility] Current Patient Location: [facility] Accession/Order Number: [id number] Exam Date: 06/06/2024 12:58 Report Date: 06/06/2024 14:47 At the request of: WON RUEDA Procedure: US OB cervical length EXAMINATION: US OB cervical length HISTORY: pre-term contractions COMPARISON: No relevant comparison available. FINDINGS: position: Cephalic presentation, longitudinal lie Heart rate: 130 beats minute Cervix: 3.5 cm, closed Clinical age: 32 weeks 6 days Clinical SINA: 07/26/2024 US/US OB cervical length IMPRESSION: Closed cervix measuring 3.5 cm in length Electronically authenticated by: DARLINE ESPITIA Date: 06/06/2024 14:47 Dictated By: Darline Espitia M.D. Signed By:06/06/24 1449 DD/ 1447 TD/TT: Slip Box Changer: us Won Rueda DO [facility] Final Result documented in this encounter Visit Diagnoses Not on filedocumented in this encounter Care Teams Lung Puller Relationship Specialty Start Date End Date Jaspal Maxwell NP [address] [facility] [place] [address] PCP - General Family Medicine 11/11/23 Won Rueda DO [address] [place] [address] [place] [address] PCP - FFS State [facility] 08/20/24 documented as of this encounter
--- OUTSIDE RECORDS SUMMARY | 2025-01-13 12:37 | XMS_ITS | Clinical Summary ---
Author Organization [facility] Address [address] [place] [address] Care Team Providers Care Choker Hooker Name Role Phone Unavailable Primary Care Provider Unavailabl e Medications clonazePAM 0.5 MG tablet Take 1 tablet by mouth. As needed 05/08/2023 Active tiZANidine 4 MG tablet Take 1 tablet by mouth. 09/17/2023 Active Ondansetron 4 MG Tab Dispersible tablet Take 1 tablet by mouth every 8 hours as needed for Nausea / Vomiting. 18 tablet 1 11/02/2023 Active Social History Tobacco Use Types Packs/Day Years Used Date Smoking Tobacco: Never Smokeless Tobacco: Never Tobacco Cessation:Counseling Given: Not Answered Alcohol Use Standard Drinks/Week Comments Never 0 (1 standard drink = 0.6 oz pur e alcohol) Comments No Sex and Gender Information Value Date Recorded Sex Assigned at Not on file Legal Sex Female 1:43 PM EST Gender Identity Not on file Sexual Orientation Not on file Last Filed Vital Signs Vital Sign Reading Time Taken Comments Blood Pressure 110/80 11/02/2023 2:27 PM EDT Pulse - - Temperature - - Respiratory Rate - - Oxygen Saturation - - Inhaled Oxygen Concentration - - Weight 65.2 kg (143 lb 11.2 oz) 11/02/2023 2:27 PM EDT Height 180.3 cm (5' 11 ) 11/02/2023 2:27 PM EDT Body Mass Index 20.04 11/02/2023 2:27 PM EDT Plan of Treatment Health Maintenance Due Date Last Done Comments HEPATITIS C VIRUS SCREENING 1995 TETANUS 1995 HIV SCREENING DISCUSSION 11/08/2011 HEP B VACCINE (1 of 3 - 19+ 3-dose series) 11/08/2015 TDAP (ADULT) 11/08/2015 CERVICAL CANCER SCREENING DISCUSSION 2017 COVID-19 VACCINE (3 - 2024-2 5 season) 2024 05/25/2021, 05/04/2021 INFLUENZA VACCINE (Season Ended) 2025 HPV VACCINE Aged Out No longer eligi ble based on patient's age to complete this topic PNEUMOCOCCAL VACCINE SERIES Aged Out No longer eligible based on patient's age to complete this topic Insurance [facility]
--- OUTSIDE RECORDS SUMMARY | 2025-01-13 12:37 | XMS_ITS | Encounter Summary ---
Author Organization [facility] Address [address] [place] [address] Care Team Providers Care Operator/Assistant Foreman Name Role Phone Melquiades Jaspal Fay CHANG Primary Care Provider Won Rueda DO Unavailable Encounter Details Date Type Department Care Team (Late st Contact Info) Description 06/14/2024 Clinisync Result Encounter [facility] External Department Unsolicited Won Rueda DO [address] [facility] [place] [address] Social History Tobacco Use Types [...] Diagnosis Comments US OB BPP W NON-STRESS 06/14/2024 4:21 AM EDT documented in this encounter Results * US OB BPP W NON-STRESS (06/14/2024 4:21 AM EDT) Anatomical Region Laterality Modality Other 06/14/2024 4:21 AM EDT Narrative 06/14/2024 4:23 AM EDT The [address] [address] Ultrasound Report Signed Patient: GOLDIE VERMA MR#: [id number] : 1995 Acct:[id number] Age/Sex: 28 / F ADM Date: 06/13/24 Loc: US Attending Dr: Won Rueda D.O. Ordering Physician: Won Rueda D.O. Date of Service: 06/13/24 Procedure(s): US OB BPP w non-stress Accession Number(s): [id number] cc: Won Rueda D.O.; JASPAL MAXWELL [place] [id number] Patient Name: GOLDIE VERMA MRN: [facility]:[id number] date: 1995 Sex: F Assigned Patient Location: [facility] Current Patient Location: Accession/Order Number: [id number] Exam Date: 06/13/2024 10:53 Report Date: 06/14/2024 04:21 At the request of: WON RUEDA Procedure: US OB BPP w non-stress EXAMINATION: US OB BPP w non-stress HISTORY:History of delivery COMPARISON: Ultrasound OB biophysical 06/06/2024 TECHNIQUE: Ultrasound biophysical profile was performed in the radiology department. BREATHING MOVEMENTS: 2 GROSS BODY MOVEMENTS: 2 TONE: 2 QUALITATIVE AMNIOTIC FLUID VOLUME: 2 PRESENTATION: CEPHALIC HEART RATE: 143.62 bpm AMNIOTIC FLUID VOLUME: 15.09 cm GESTATIONAL AGE: 33 weeks 6 days US/US OB BPP w non-stress IMPRESSION: Total biophysical profile score: 8 Electronically authenticated by: HARRISON SAXENA Date: 06/14/2024 04:21 Dictated By: Harrison Saxena M.D. Signed By: 06/14/24422 DD/ 0 TD/TT: Special Education Coordinator: Procedure Note Radiology, Radiologist, MD - 06/14/2024 [place] [address] Ultrasound Report Signed Patient: GOLDIE VERMAMR#: [id number] : 1995Acct:[id number] Age/Sex: 28 / FADM Date: 06/13/24 Loc: US Attending Dr: Won Rueda D.O. Ordering Physician: Won Rueda D.O. Date of Service: 06/13/24 Procedure(s): US OB BPP w non-stress Accession Number(s): [id number] cc: Won Rueda D.O.; JASPAL MAXWELL [facility] [address], [place] [address] Patient Name: GOLDIE VERMA MRN: [id number] date: 1995 Sex: F Assigned Patient Location: [facility] Current Patient Location: Accession/Order Number: [id number] Exam Date: 06/13/2024 10:53 Report Date: 06/14/2024 04:21 At the request of: WON RUEDA Procedure: US OB BPP w non-stress EXAMINATION: US OB BPP w non-stress HISTORY:History of delivery COMPARISON: Ultrasound OB biophysical 06/06/2024 TECHNIQUE: Ultrasound biophysical profile was performed in the radiology department. BREATHING MOVEMENTS: 2 GROSS BODY MOVEMENTS: 2 TONE: 2 QUALITATIVE AMNIOTIC FLUID VOLUME: 2 PRESENTATION: CEPHALIC HEART RATE: 143.62 bpm AMNIOTIC FLUID VOLUME: 15.09 cm GESTATIONAL AGE: 33 weeks 6 days US/US OB BPP w non-stress IMPRESSION: Total biophysical profile score: 8 Electronically authenticated by: HARRISON SAXENA Date: 06/14/2024 04:21 Dictated By: Harrison Saxena M.D. Signed By:06/14/24422 DD/ 0 TD/TT: Special Education Coordinator: us Won Rueda DO [facility] Final Result documented in this encounter Visit Diagnoses Not on filedocumented in this encounter Care Teams Operator/Assistant Foreman Relationship Specialty Start Date End Date Jaspal Maxwell NP [address] [facility] [place] [address] PCP - General Family Medicine 11/11/23 Won Rueda DO [address] [place] [address] Lizbeth Vazquez [place] [address] PCP - FFS State [facility] 08/20/24 documented as of this encounter
--- OUTSIDE RECORDS SUMMARY | 2025-01-13 12:37 | XMS_ITS | Clinical Summary ---
Author Organization [facility] Address [address] [place] [address] Care Team Providers Care Collections Manager Name Role Phone Lucila Arnett PROJECT MANAGEMENT ADVISOR Primary Care Provider Moi Rueda DO Unavailable Allergies Active Allergy Reactions Criticality Noted Date Comments Galcanezumab-Gnlm High 11/21/2023 Galcanezumab Medium 01/11/2024 Other Reaction(s): Hives Lavender Oil Unknown 10/16/2023 Tramadol Unknown,Hives Medium 10/16/2023 Other Reaction(s): Not available Other Reaction(s): Unknown, Unknown Reaction Medications clonazePAM (KlonoPIN) 0.5 MG tablet Take 0.5 mg by mouth 2 (two) times a day as needed for anxiety 07/16/2024 Active tiZANidine (Zanaflex) 4 MG tablet Take 4 mg by mouth every 6 (six) hours if needed for muscle spasms 01/10/2024 Active citalopram (CeleXA) 20 MG tabletIndicatio ns:Mood disorder (CMS/HCC) Take 1 tablet (20 mg) by mouth Daily 30 tablet 11 08/27/2024 Active amphetamine-dex troamphetamine XR (Adderall XR) 10 MG 24 hr capsule TAKE 1 CAPSULE BY MOUTH DAILY IN THE MORNING 10/23/2024 Active amphetamine-dex troamphetamine XR (Adderall XR) 20 MG 24 hr capsule 01/08/2025 Active baclofen (Lioresal) 10 MG tablet TAKE 1 TABLET BY MOUTH THREE TIMES DAILY FOR 10 DAYS 12/30/2024 Active Vraylar 1.5 MG capsule Take 1 capsule by mouth Daily 10/09/2024 Active Active Problems Problem Noted Date Diagnosed Date 24 weeks gestation of 04/10/2024 Prior with placent a abruption in third trimester, antepartum 04/10/2024 Pelvic pain in female 03/27/2024 Second trimester 03/27/2024 Diabetes mellitus screening 03/27/2024 Right hip pain 01/03/2024 History of placenta abruption 01/03/2024 Nausea and vomiting in 01/03/2024 Heartburn during in first trimester H/O delivery, currently , first trimester 01/03/2024 Abdominal pain affecting 01/03/2024 First trimester 01/03/2024 Dizziness 01/03/2024 Encounters Date Type Department Care Team Description 01/08/2025 3:30 PM EDT Office Visit [facility] [address] [place] [address] Leonel Marlow DO Encounter for drug screening 01/08/2025 Travel from Last 3 Months Family History Relation Name Status Comments Father Alive Mother Alive Social History Tobacco Use Types Packs/Day Years Used Date Smoking Tobacco: Never Smokeless Tobacco: Never Tobacco Cessation:Counseling Given: Not Answered Comments Unknown Sex and Gender Information Value Date Recorded Sex Assigned at Not on file Legal Sex Female 7:02 PM EDT Gender Identity Not on file Sexual Orientation Not on file Last Filed Vital Signs Vital Sign Reading Time Taken Comments Blood Pressure 110/70 08/27/2024 1:36 PM EST Pulse 119 10/19/2023 8:20 AM EST Temperature - - Respiratory Rate 16 10/19/2023 8:20 AM EST Oxygen Saturation - - Inhaled Oxygen Concentration - - Weight 67.6 kg (149 lb) 01/08/2025 3:39 PM EDT Height 180.3 cm (5' 10.98 ) 10/19/2023 8:[address] Body Mass Index 20.79 10/19/2023 8:20 AM EST Plan of Treatment Health Maintenance Due Date Last Done Comments Influenza Vaccine (Season Ended) 2025 Insurance [address] [place] [address] [facility] MEDICAID Care Teams Collections Manager Relationship Specialty Start Date End Date Lucila Arnett NP [facility] [address] PCP - General Family Medicine 11/11/23 Moi Rueda DO [address] [place] [address] [address] [place] [address] PCP - FFS [facility] 08/20/24
--- OUTSIDE RECORDS SUMMARY | 2025-01-13 12:37 | XMS_ITS | Encounter Summary ---
Author Organization [facility] Address [address] [place] [address] Care Team Providers Care Excavator Backhoe Operator Name Role Phone SteveJaspal perdomo Fay TRANSPORT ENGINEER Primary Care Provider Won Rueda DO Unavailable Encounter Details Date Type Department Care Team (Late st Contact Info) Description 05/14/2024 Clinisync Result Encounter [facility] External Department Unsolicited Won Rueda DO [address] [facility] [place] [address] Social History Tobacco Use Types [...] Associated Diagnosis Comments US OB CERVICAL LENGTH 05/14/2024 4:29 AM EDT documented in this encounter Results * US OB CERVICAL LENGTH (05/14/2024 4:29 AM EDT) Anatomical Region Laterality Modality Other 05/14/2024 4:29 AM EDT Narrative 05/14/2024 4:31 AM EDT The [address] [address] Ultrasound Report Signed Patient: GOLDIE VERMA MR#: [id number] : 1995 Acct:[id number] Age/Sex: 28 / F ADM Date: 05/13/24 Loc: [facility] Attending Dr: Won Rueda D.O. Ordering Physician: Won Rueda D.O. Date of Service: 05/13/24 Procedure(s): US OB cervical length Accession Number(s): [id number] cc: Won Rueda D.O.; JASPAL MAXWELL [place] [address] Patient Name: GOLDIE VERMA MRN: [facility]:[id number] date: 1995 Sex: F Assigned Patient Location: [facility] Current Patient Location: Accession/Order Number: [id number] Exam Date: 05/13/2024 14:38 Report Date: 05/14/2024 04:29 At the request of: WON RUEDA Procedure: US OB cervical length EXAMINATION: US OB cervical length HISTORY: HISTORY OF DELIVERY COMPARISON: Ultrasound OB cervical length 03/13/2024 TECHNIQUE: Transabdominal sonographic examination was performed for obstetrical and evaluation. FINDINGS: Cervix Length: 4.33 cm ; closed. No appreciable shortening or funneling during Valsalva. GESTATIONAL AGE: Age by EDC: 29 weeks 3 days SINA by EDC: 2024-07-26 US/US OB cervical length IMPRESSION: 1. Closed cervix 4.3 cm in length. Electronically authenticated by: HARRISON SAXENA Date: 05/14/2024 04:29 Dictated By: Harrison Saxena M.D. Signed By: 05/14/24 0431 DD/ 0429 TD/TT: Roll Examiner: Procedure Note Radiology, Radiologist, MD - 05/14/2024 [place] [address] Ultrasound Report Signed Patient: GOLDIE VERMAMR#: [id number] : 1995Acct:[id number] Age/Sex: 28 / FADM Date: 05/13/24 Loc: [facility] Attending Dr: Won Rueda D.O. Ordering Physician: Won Rueda D.O. Date of Service: 05/13/24 Procedure(s): US OB cervical length Accession Number(s): [id number] cc: Won Rueda D.O.; JASPAL MAXWELL [facility] [address] [place], [place] [address] Patient Name: GOLDIE VERMA MRN: [facility]:[id number] date: 1995 Sex: F Assigned Patient Location: [facility] Current Patient Location: Accession/Order Number: [id number] Exam Date: 05/13/2024 14:38 Report Date: 05/14/2024 04:29 At the request of: WON RUEDA Procedure: US OB cervical length EXAMINATION: US OB cervical length HISTORY: HISTORY OF DELIVERY COMPARISON: Ultrasound OB cervical length 03/13/2024 TECHNIQUE: Transabdominal sonographic examination was performed for obstetrical and evaluation. FINDINGS: Cervix Length: 4.33 cm ; closed. No appreciable shortening or funnelingduring Valsalva. GESTATIONAL AGE: Age by EDC: 29 weeks 3 days SINA by EDC: 2024-07-26 US/US OB cervical length IMPRESSION: 1. Closed cervix 4.3 cm in length. Electronically authenticated by: HARRISON SAXENA Date: 05/14/2024 04:29 Dictated By: Harrison Saxena M.D. Signed By:05/14/24 0431 DD/ 0429 TD/TT: Roll Examiner: Won Rueda DO [facility] Final Result documented in this encounter Visit Diagnoses Not on filedocumented in this encounter Care Teams Excavator Backhoe Operator Relationship Specialty Start Date End Date Jaspal Maxwell NP [address] [facility] [place] [address] PCP - General Family Medicine 11/11/23 Won Rueda DO [address] [place] [address] [place] [address] PCP - FFS State [facility] 08/20/24 documented as of this encounter
--- OUTSIDE RECORDS SUMMARY | 2025-01-13 12:37 | XMS_ITS | Encounter Summary ---
Author Organization [facility] Address [address] [place] [address] Care Team Providers Care Mobile Heavy Equipment Mechanic Name Role Phone Lucila Arnett NP Primary Care Provider Moi Rueda DO Unavailable Encounter Details Date Type Department Care Team (Late st Contact Info) Description 03/19/2024 Abstract [facility] BCP OB [address] [place] [address] Zakiya Traylor LPN Social History Tobacco Use Types Packs/Day Years [...] on filedocumented in this encounter Care Teams Mobile Heavy Equipment Mechanic Relationship Specialty Start Date End Date Lucila Arnett NP [address] [facility] [place] [facility] PCP - General Family Medicine 11/11/23 Moi Rueda DO [address] [place], [place] [id number] PCP - FFS [facility] 08/20/24 documented as of this encounter
--- OUTSIDE RECORDS SUMMARY | 2025-01-13 12:37 | XMS_ITS | Encounter Summary ---
Author Organization [facility] Address [address] [place] [address] Care Team Providers Care Social Insurance Specialist Name Role Phone MelquiadesJaspal Fay CHANG Primary Care Provider Won Rueda DO Unavailable Encounter Details Date Type Department Care Team (Late st Contact Info) Description 06/06/2024 Clinisync Result Encounter [facility] External Department Unsolicited Won Rueda DO [address] [facility] [place] [address] Social History Tobacco Use Types [...] Diagnosis Comments US OB BPP W NON-STRESS 06/06/2024 12:03 PM EDT documented in this encounter Results * US OB BPP W NON-STRESS (06/06/2024 12:03 PM EDT) Anatomical Region Laterality Modality Other 06/06/2024 12:0 3 PM EDT Narrative 06/06/2024 12:06 PM EDT The [facility] [address] [place] [address] Ultrasound Report Signed Patient: GOLDIE VERMA MR#: [id number] : 1995 Acct:[id number] Age/Sex: 28 / F ADM Date: 06/06/24 Loc: [facility] 250-[address]: Won Rueda D.O. Ordering Physician: Won Rueda D.O. Date of Service: 06/06/24 Procedure(s): US OB BPP w non-stress Accession Number(s): [id number] cc: Won Rueda D.O.; JASPAL MAXWELL [place] [address] Patient Name: GOLDIE VERMA MRN: [facility]:[id number] date: 1995 Sex: F Assigned Patient Location: [facility] Current Patient Location: [facility] Accession/Order Number: [id number] Exam Date: 06/06/2024 11:15 Report Date: 06/06/2024 12:03 At the request of: WON RUEDA Procedure: US OB BPP w non-stress EXAMINATION: US OB BPP w non-stress HISTORY: H/O DELIVERY O09.891 COMPARISON: No relevant comparison available. TECHNIQUE: Ultrasound biophysical profile was performed in the radiology department. non-reactive stress testing was performed by nursing staff in the birthing center. FINDINGS: BREATHING MOVEMENTS: 2 GROSS BODY MOVEMENTS: 2 TONE: 2 QUALITATIVE AMNIOTIC FLUID VOLUME: 2 PRESENTATION: CEPHALIC HEART RATE: 144.39 bpm AMNIOTIC FLUID VOLUME: 16.1 cm GESTATIONAL AGE: 32 weeks 6 days US/US OB BPP w non-stress IMPRESSION: Total biophysical profile score: 8 Electronically authenticated by: DARLINE ESPITIA Date: 06/06/2024 12:03 Dictated By: Darline Espitia M.D. Signed By: 06/06/24 1206 DD/ 1203 TD/TT: Manager Respiratory Care: Procedure Note Radiology, Radiologist, - 06/06/2024 [place] [address] Ultrasound Report Signed Patient: GOLDIE VERMAMR#: [id number] : 1995Acct:[id number] Age/Sex: 28 / FADM Date: 06/06/24 Loc: [facility] 250-[address]: Won Rueda D.O. Ordering Physician: Won Rueda D.O. Date of Service: 06/06/24 Procedure(s): US OB BPP w non-stress Accession Number(s): [id number] cc: Won Rueda D.O.; JASPAL MAXWELL [facility] [address] [place], [place] [address] Patient Name: GOLDIE VERMA MRN: [facility]:[id number] date: 1995 Sex: F Assigned Patient Location: [facility] Current Patient Location: [facility] Accession/Order Number: [id number] Exam Date: 06/06/2024 11:15 Report Date: 06/06/2024 12:03 At the request of: WON RUEDA Procedure: US OB BPP w non-stress EXAMINATION: US OB BPP w non-stress HISTORY: H/O DELIVERY O09.891 COMPARISON: No relevant comparison available. TECHNIQUE: Ultrasound biophysical profile was performed in the radiology department. non-reactive stress testing was performed by nursingstaff in the birthing center. FINDINGS: BREATHING MOVEMENTS: 2 GROSS BODY MOVEMENTS: 2 TONE: 2 QUALITATIVE AMNIOTIC FLUID VOLUME: 2 PRESENTATION: CEPHALIC HEART RATE: 144.39 bpm AMNIOTIC FLUID VOLUME: 16.1 cm GESTATIONAL AGE: 32 weeks 6 days US/US OB BPP w non-stress IMPRESSION: Total biophysical profile score: 8 Electronically authenticated by: DARLINE ESPITIA Date: 06/06/2024 12:03 Dictated By: Darline Espitia M.D. Signed By:06/06/24 1206 DD/ 1203 TD/TT: Manager Respiratory Care: us Won Rueda DO [facility] Final Result documented in this encounter Visit Diagnoses Not on filedocumented in this encounter Care Teams Social Insurance Specialist Relationship Specialty Start Date End Date Jaspal Maxwell NP [address] [facility] [place] [address] PCP - General Family Medicine 11/11/23 Won Rueda DO [address] [place] [address] Dr Michele [place], [facility]11 PCP - FFS [facility] 08/20/24 documented as of this encounter
--- OUTSIDE RECORDS SUMMARY | 2025-01-13 12:37 | XMS_ITS | Encounter Summary ---
Author Organization [facility] Address [address] [place] [address] Care Team Providers Care R&D Engineer Name Role Phone Lucila Arnett INFANT ROOM TEACHER Primary Care Provider Moi Rueda DO Unavailable Encounter Details Date Type Department Care Team (Late st Contact Info) Description 01/21/2024 Abstract [facility] BCP OB [address] [place] [address] Debra Hughes LPN [address] [employer] [facility] [place], [place] [address] Social History Tobacco Use Types Packs/Day Years [...] on filedocumented in this encounter Care Teams R&D Engineer Relationship Specialty Start Date End Date Lucila Arnett NP [address] [facility] [address] [place], [place] [phone] PCP - General Family Medicine 11/11/23 Moi Rueda DO [address] [employer] [facility] [address] [place], [place] [phone] PCP - FFS State NURSE MANAGER 08/20/24 documented as of this encounter
--- OUTSIDE RECORDS SUMMARY | 2025-01-13 12:37 | XMS_ITS | Encounter Summary ---
Author Organization [facility] Address [address] [place] [address] Care Team Providers Care Bowling Alley Floors Installer Name Role Phone Lucila Arnett NP Primary Care Provider Moi Rueda DO Unavailable Encounter Details Date Type Department Care Team (Latest Contact Info) Description 01/08/2025 Travel Social History Tobacco Use Types Packs/Day Years [...] on filedocumented in this encounter Care Teams Bowling Alley Floors Installer Relationship Specialty Start Date End Date Lucila Arnett NP [address] [facility] [place] [address] PCP - General Family Medicine 11/11/23 Moi Rueda DO [address] [place] [address] [place] [address] PCP - FFS State [facility] 08/20/24 documented as of this encounter
--- OUTSIDE RECORDS SUMMARY | 2025-01-13 12:37 | XMS_ITS | Encounter Summary ---
Author Organization [facility] Address [address] [place] [address] Care Team Providers Care Manager Urology Name Role Phone MelquiadesJaspal Fay [employer]ANT AREA MANAGER Primary Care Provider Won Rueda DO Unavailable Encounter Details Date Type Department Care Team (Late st Contact Info) Description 12/26/2023 Clinisync Result Encounter [facility] External Department Unsolicited Won Rueda DO [address] [facility] [place] [address] Social History Tobacco Use Types [...] Date/Time Associated Diagnosis Comments US OB TRANSVAGINAL 12/26/2023 1: 44 PM EDT documented in this encounter Results * US OB TRANSVAGINAL (12/26/2023 1:44 PM EDT) Anatomical Region Laterality Modality Other 12/26/2023 1:44 PM EDT Narrative 12/26/2023 1:47 PM EDT The [address] [address] Ultrasound Report Signed Patient: GOLDIE VERMA MR#: [id number] : 1995 Acct:[id number] Age/Sex: 28 / F ADM Date: 12/26/23 Loc: US Attending Dr: Won Rueda D.O. Ordering Physician: Won Rueda D.O. Date of Service: 12/26/23 Procedure(s): US OB transvaginal Accession Number(s): [id number] cc: Won Rueda D.O.; JASPAL MAXWELL [place] [address] Patient Name: GOLDIE VERMA MRN: [facility]:[id number] date: 1995 Sex: F Assigned Patient Location: US Current Patient Location: US Accession/Order Number: [id number] Exam Date: 12/26/2023 12:42 Report Date: 12/26/2023 13:44 At the request of: WON RUEDA Procedure: US OB transvaginal EXAMINATION: US OB transvaginal HISTORY: missed menses N92.6 COMPARISON: 12/13/2023 FINDINGS: Transvaginal images Godoy intrauterine gestation Gestational sac: 3.48 cm, 8 weeks 4 days CRL: 2.44 cm, 9 weeks 1 day Yolk sac: 2.7 mm Heart rate: 182 beats minute Cervix: 3.6 cm in length, closed. The uterus is normal, anteverted The right ovary measures 3.3 x 2.8 x 3.6 cm. Area of anechoic echogenicity likely corpus luteal cyst. The left ovary is normal measuring 1.6 x 1.1 x 2.2 cm Clinical age: 9 weeks 4 days Clinical SINA: 07/26/2024 Ultrasound age: 9 weeks 1 day Ultrasound SINA: 07/29/2024 US/US OB transvaginal IMPRESSION: Viable godoy intrauterine gestation measuring 9 weeks 1 day Electronically authenticated by: DARLINE ESPITIA Date: 12/26/2023 13:44 Dictated By: Darline Espitia M.D. Signed By: 12/26/23 1347 DD/ 1345 TD/TT: Lard Mixer: Procedure Note Radiology, Radiologist, MD - 12/26/2023 [place] [address] Ultrasound Report Signed Patient: GOLDIE VERMAMR#: [id number] : 1995Acct:[id number] Age/Sex: 28 / FADM Date: 12/26/23 Loc: US Attending Dr: Won Rueda D.O. Ordering Physician: Won Rueda D.O. Date of Service: 12/26/23 Procedure(s): US OB transvaginal Accession Number(s): [id number] cc: Won Rueda D.O.; JASPAL MAXWELL [place] [address] Patient Name: GOLDIE VERMA MRN: [facility]:[id number] date: 1995 Sex: F Assigned Patient Location: US Current Patient Location: US Accession/Order Number: [id number] Exam Date: 12/26/2023 12:42 Report Date: 12/26/2023 13:44 At the request of: WON RUEDA Procedure: US OB transvaginal EXAMINATION: US OB transvaginal HISTORY: missed menses N92.6 COMPARISON: 12/13/2023 FINDINGS: Transvaginal images Godoy intrauterine gestation Gestational sac: 3.48 cm, 8 weeks 4 days CRL: 2.44 cm, 9 weeks 1 day Yolk sac: 2.7 mm Heart rate: 182 beats minute Cervix: 3.6 cm in length, closed. The uterus is normal, anteverted The right ovary measures 3.3 x 2.8 x 3.6 cm. Area of anechoic echogenicity likely corpus luteal cyst. The left ovary is normal measuring 1.6 x 1.1 x 2.2 cm Clinical age: 9 weeks 4 days Clinical SINA: 07/26/2024 Ultrasound age: 9 weeks 1 day Ultrasound SINA: 07/29/2024 US/US OB transvaginal IMPRESSION: Viable godoy intrauterine gestation measuring 9 weeks 1 day Electronically authenticated by: DARLINE ESPITIA Date: 12/26/2023 13:44 Dictated By: Darline Espitia M.D. Signed By:12/26/23 1347 DD/ 1344 TD/TT: Lard Mixer: Won Rueda DO [facility] Final Result documented in this encounter Visit Diagnoses Not on filedocumented in this encounter Care Teams Manager Urology Relationship Specialty Start Date End Date Jaspal Maxwell NP [facility]5 [facility] [place] [address] PCP - General Family Medicine 11/11/23 Won Rueda DO [address] [place] [address] [place] [address] PCP - FFS State [facility]IAL WORK[facility] 08/20/24 documented as of this encounter
--- OUTSIDE RECORDS SUMMARY | 2025-01-13 12:37 | XMS_ITS | Encounter Summary ---
Author Organization [facility] Address [address] [place] [address] Care Team Providers Care Hydraulic Jack Adjuster Name Role Phone Lucila Arnett NP Primary Care Provider Moi Rueda DO Unavailable Encounter Details Date Type Department Care Team (Late st Contact Info) Description 04/01/2024 Abstract [facility] BCP OB [address] [address] Ariadna August LPN [address] [employer] [place] [id number] Social History Tobacco Use Types Packs/Day Years [...] on filedocumented in this encounter Care Teams Hydraulic Jack Adjuster Relationship Specialty Start Date End Date Lucila Arnett NP [address] [facility] [place] [place], [place] [phone] PCP - General Family Medicine 11/11/23 Moi Rueda DO [address] [employer] [address] [place], [place] [phone] PCP - FFS State JAR CAPPER 08/20/24 documented as of this encounter
--- OUTSIDE RECORDS SUMMARY | 2025-01-13 12:37 | XMS_ITS | Encounter Summary ---
Author Organization [facility] Address [address] [place] [address] Care Team Providers Care Box Brander Name Role Phone EllyJaspal [place] SPECTROGRAPH OPERATOR Primary Care Provider Won Rueda DO Unavailable Encounter Details Date Type Department Care Team (Late st Contact Info) Description 06/30/2024 Clinisync Result Encounter [facility] External Department Unsolicited Won Rueda DO [address] [facility] [place] [address] Social History Tobacco Use Types [...] Priority Date/Time Associated Diagnosis Comments OB GROWTH 06/30/2024 10:15 AM EST documented in this encounter Results * US OB GROWTH (06/30/2024 10:15 AM EST) Anatomical Region Laterality Modality Other 06/30/2024 10:1 5 AM EST Narrative 06/30/2024 10:17 AM EST The [address] [address] Ultrasound Report Signed Patient: GOLDIE VERMA MR#: [id number] : 1995 Acct:[id number] Age/Sex: 28 / F ADM Date: 06/30/24 Loc: [facility] Attending Dr: Won Rueda D.O. Ordering Physician: Won Rueda D.O. Date of Service: 06/30/24 Procedure(s): US OB growth Accession Number(s): [id number] cc: Won Rueda D.O.; JASPAL MAXWELL [address] [address] Patient Name: GOLDIE VERMA MRN: [facility]:[id number] date: 1995 Sex: F Assigned Patient Location: [facility] Current Patient Location: [facility] Accession/Order Number: [id number] Exam Date: 06/30/2024 09:50 Report Date: 06/30/2024 10:15 At the request of: WON RUEDA Procedure: US OB growth EXAMINATION: US OB growth HISTORY: Elevated glucose tolerance test R73.09 COMPARISON: No relevant comparison available. FINDINGS: Heart Rate: 132 bpm Amniotic Fluid Volume: 13.5 cm, largest fluid pocket 4.3 cm Number: 1 Position: CEPHALIC BIOMETRY: BPD: 8.56 cm; 34 weeks 4 days; 14.10 % HC: 32.35 cm; 36 weeks 4 days; 27.30 % AC: 31.22 cm; 35 weeks 1 day; 28.50 % FL: 7.28 cm; 37 weeks 2 days; 71.80 % EFW: 2516.25 g; 38.90 %, 6 lbs. 2 oz. FL/AC: 23.32 FL/BPD: 85.05 HC/AC: 1.04 GESTATIONAL AGE: Age by EDC: 36 weeks 2 days SINA by EDC: 2024-07-26 Age by US: 36 weeks 0 days SINA by US: 2024-07-28 US/US OB growth IMPRESSION: Normal interval growth Electronically authenticated by: DARLINE ESPITIA Date: 06/30/2024 10:15 Dictated By: Darline Espitia M.D. Signed By: 06/30/24 1017 DD/ 1015 TD/TT: Divisional Storekeeper: Procedure Note Radiology, Radiologist, - 06/30/[address] [address] Ultrasound Report Signed Patient: GOLDIE VERMAMR#: [id number] : 1995Acct:[id number] Age/Sex: 28 / FADM Date: 06/30/24 Loc: [facility] Attending Dr: Won Rueda D.O. Ordering Physician: Won Rueda D.O. Date of Service: 06/30/24 Procedure(s): US OB growth Accession Number(s): [id number] cc: Won Rueda D.O.; JASPAL MAXWELL [place] [address] Patient Name: GOLDIE VERMA MRN: [id number] date: 1995 Sex: F Assigned Patient Location: [facility] Current Patient Location: [facility] Accession/Order Number: [id number] Exam Date: 06/30/2024 09:50 Report Date: 06/30/2024 10:15 At the request of: OWN RUEDA Procedure: US OB growth EXAMINATION: US OB growth HISTORY: Elevated glucose tolerance test R73.09 COMPARISON: No relevant comparison available. FINDINGS: Heart Rate: 132 bpm Amniotic Fluid Volume: 13.5 cm, largest fluid pocket 4.3 cm Number: 1 Position: CEPHALIC BIOMETRY: BPD: 8.56 cm; 34 weeks 4 days; 14.10 % HC: 32.35 cm; 36 weeks 4 days; 27.30 % AC: 31.22 cm; 35 weeks 1 day; 28.50 % FL: 7.28 cm; 37 weeks 2 days; 71.80 % EFW: 2516.25 g; 38.90 %, 6 lbs. 2 oz. FL/AC: 23.32 FL/BPD: 85.05 HC/AC: 1.04 GESTATIONAL AGE: Age by EDC: 36 weeks 2 days SINA by EDC: 2024-07-26 Age by US: 36 weeks 0 days SINA by US: 2024-07-28 US/US OB growth IMPRESSION: Normal interval growth Electronically authenticated by: DARLINE ESPITIA Date: 06/30/2024 10:15 Dictated By: Darline Espitia M.D. Signed By:06/30/24 1017 DD/ 1015 TD/TT: Divisional Storekeeper: Won Rueda DO [facility] Final Result documented in this encounter Visit Diagnoses Not on filedocumented in this encounter Care Teams Box Brander Relationship Specialty Start Date End Date Jaspal Maxwell NP [facility]5 [facility] [place] [address] PCP - General Family Medicine 11/11/23 Won Rueda DO [address] [place] [address] [place] [address] PCP - FFS State [facility] 08/20/24 documented as of this encounter
--- OUTSIDE RECORDS SUMMARY | 2025-01-13 12:37 | XMS_ITS | Encounter Summary ---
Author Organization [facility] Address [address] [place] [address] Care Team Providers Care Outsole Paraffiner Name Role Phone Lucila Arnett NP Primary Care Provider Moi Rueda DO Unavailable Encounter Details Date Type Department Care Team (Late st Contact Info) Description 06/30/2024 Abstract [facility] BCP OB [address] [place] [address] Moi Rueda DO [address] [place], [facility] Social History Tobacco Use Types Packs/Day Years [...] on filedocumented in this encounter Care Teams Outsole Paraffiner Relationship Specialty Start Date End Date Lucila Arnett NP [address] [facility] [address] PCP - General Family Medicine 11/11/23 Moi Rueda DO [address] [place], [place] [phone] PCP - FFS State LEAD ATHLETE 08/20/24 documented as of this encounter
--- OUTSIDE RECORDS SUMMARY | 2025-01-13 12:37 | XMS_ITS | Encounter Summary ---
Author Organization [facility] Address [facility] [place] [address] Care Team Providers Care Auger Mill Operator Name Role Phone StevechanelalainaLucila Fay ACTING MANAGER Unavailable Source Comments In the event this information is protected by the Federal Confidentiality of Alcohol and Drug AbusePatient Records regulations: The Federal rules restrict any use of the information to criminally investigate or prosecute any alcohol or drug abuse patient.[facility] Reason for Visit * Reason Comments Vmware Consultant - Other Care Everywhere Updated Encounter Details Date Type Department Care Team (Late st Contact Info) Description 01/07/2025 Telephone Gynecology [address] [place] [id number] Provider, Srinivas Vmware Consultant - Other (Care Everywhere Updated) Social History Tobacco Use Types Packs/Day Years Used Date Smoking Tobacco: Never Assessed Comments Unknown Sex and Gender Information Value Date Recorded Sex Assigned at Not on file Legal Sex Female 11:37 AM EDT Gender Identity Not on file Sexual Orientation Not on file documented as of this encounter Miscellaneous Notes * Telephone Encounter - Syed Ohara RN - 01/07/2025 1:26 PM EDTSummary: Care Everywhere Updated Updated the pt's Care Everywhere. documented in this encounter Plan of Treatment Not on file documented as of this encounter Visit Diagnoses Not on filedocumented in this encounter Care Teams Auger Mill Operator Relationship Specialty Start Date End Date Lucila Arnett NP [address] [place] [place] [address] Referring Nurse Practitioner 01/06/25 documented as of this encounter
--- OUTSIDE RECORDS SUMMARY | 2025-01-13 12:38 | XMS_ITS | Patient Health Record ---
Author Organization [facility] es Address [address] [place] [address] Care Team Providers Care Dryerman/Woman Name Role Phone Inge Wendi Primary Care Provider JASPAL MAXWELL Unavailable Allergies Allergen (clinical drug ingredient) Drug/Non Drug Allergy documented on EMR Reaction Allergy Type Onset Date Status Lavender Oil Unknown Drug Allergy Acti ve tramadol Tramadol Unknown Drug Allergy Active Reason For Referral Reason 09/12 Attempted, ret urned pt. call. Mailbox full. 09/11 Attempt, lvmsg requesting return call. Referral from PCP for med mgnt of anxiety with dx of PTSD and ADD Diagnosis 1 Encounter for screen ing examination for mental health and behavioral disorders (Z13.30) Referral Organization [facility] Referring Provider First Name JASPAL Referring Provider Last Name HANS Referring Provider Speciality Family Med icine Referred Organization [facility] Referred Address [address] [place], [place],[address], Referred Provider Specialty Medicatio ns Referral Priority Routine Medications Medication SIG (Take, Route, Frequency, Duration) [...] as needed Orally Twice a day Active Social History Tobacco Use: Social History Observation Description Date Details (start date - stop date) Never Smoker NA - NA AUDIT-C (Standard) Question Answer Notes Did you have a drink containing alcohol in the p ast year? No Points 0 Interpretation Negative Tobacco Control (Standard) Question Answer Notes Tobacco use: Nonsmoker Problems Problem Type SNOMED Code ICD Code Onset Dates Problem Status W/U Status Risk Notes Problem 098080101 Bipolar disorder , current episode mixed, moderate (F31.62) Active confirmed Problem [id number] Attention defici t hyperactivity disorder (ADHD), unspecified ADHD type (F90.9) Active confirmed Problem 90188445 Generalized anxiety disorder (F41.1) Active confirmed Vital Signs Heart Rate 87 /min 01/08/2025 l Temperature 97.2 degrees Fahrenheit 12/05/2024 Oximetry 100 % 01/08/2025 l Blood pressure diastolic 84 mm Hg 01/08/2025 l Height 71 in 01/08/2025 l Blood pressure systolic 125 mm Hg 01/08/2025 l Weight 150.0 lbs 01/08/2025 l BMI 20.92 kg/m2 01/08/2025 l Encounters Encounter Location Date Provider Diagnosis [address] [address] 10/09/2024 Wendi Alcazar Attention deficit hyperactivity disorder (ADHD), unspecified ADHD type F90.9 ; Bipolar disorder, current episode mixed, moderate F31.62 and Generalized anxiety disorder F41.[address] [address] 01/08/2025 Wendi Alcazar Attention deficit hyperactivity disorder (ADHD), unspecified ADHD type F90.9 ; Bipolar disorder, current episode mixed, moderate F31.62 and Generalized anxiety disorder F41.[address] [address] 10/23/2024 Wendi Alcazar Bipolar disorder, current episode mixed, moderate F31.62 ; Attention deficit hyperactivity disorder (ADHD), unspecified ADHD type F90.9 and Generalized anxiety disorder F41.[address] [address] 11/04/2024 Wendi Alcazar Attention deficit hyperactivity disorder (ADHD), unspecified ADHD type F90.9 ; Generalized anxiety disorder F41.1 and Bipolar disorder, current episode mixed, moderate F31.62 [facility] [address] [address] 12/05/2024 Wendi Alcazar Attention deficit hyperactivity disorder (ADHD), unspecified ADHD type F90.9 and Generalized anxiety disorder F41.1 [facility] [address] [place] [address] 11/13/2024 Wendi Alcazar Attention deficit hyperactivity disorder (ADHD), unspecified ADHD type F90.9 [facility] [address] [address] 11/21/2024 Wendidragan Alcazar Assessments Encounter Date Diagnosis (ICD Code) Assessment Notes Treatment Notes Treatment Clinical Notes Section Notes 10/23/2024 Bipolar disorder, current episode mixed, moderate (ICD-10 - F31.62) 10/23/2024 Attention deficit hyperactivity disorder (ADHD), unspecified ADHD type (ICD-10 - F90.9) . FDA approved stimulant medication for this age group. Discussed/Denies adverse effects from medication including HTN, tachycardia, insomnia, irritability, headache, or decreased appetite. . All relevant and serious adverse effects were discussed. Standard precautions and potential benefits were discussed. Patient/Guardian consented to begin medication/ continue treatment plan . Patient continues to meet criteria for attention deficit hyperactivity disorder. Pt does not meet criteria for bipolar disorder, major depressive disorder, or other persistent mood disorders. Will continue to monitor the patient for presentation of new symptoms or behaviors. . Continue current treatment; tolerating meds well, compliant; call for problems; questions answered satisfactorily, agreeable to treatment plan . GOALS: . Maintain medication regimen _Improve social and interpersonal functioning _Improve attention and or hyperactivity . follow up 2 weeks Crisis Intervention plan was discussed and agreed upon. Patient/Guardian will call 911 in case of emergency. Emergency contact information was provided to the patient/guardian. . OARRS reviewed . 10/09/2024 Bipolar disorder, current episode mixed, moderate (ICD-10 - F31.62) Based on DSM V, this patient meets the criteria for the diagnosis of: _ . Bipolar Disorder . Recommended treatment is: _ Recommended treatment for Bipolar disorder includes FDA approved and OFF label medications: second generation antipsychotics and mood stabilizers.Second generation antipsychotic medications can cause headache, drowsiness, agitation, dizziness, nausea, or extrapyramidal symptoms such as tremors, muscle spasms, slowness of movement or jerking of muscles. . The patient verbalizes understanding with all questions answered thoroughly and is in agreement with treatment plan. .. Continue current treatment Tolerating meds well, compliant Call for problems . GOALS: . Maintain medication regimen _Improve mood stability _Improve anxiety control _Improve social and interpersonal functioning . Informed consent obtained: YES, we discussed the diagnosis/diagnoses , the treatment options, treatment(s) recommended vs. no treatment. We discussed risks and benefits of treatment options, treatment recommendations vs. no treatment. . Currently at low risk for self harm. Denies ongoing feelings of hopelessness. Denies ongoing suicidal ideation, intent or plan in session. 2 week samples given at this time . 10/09/2024 Attention deficit hyperactivity disorder (ADHD), unspecified ADHD type (ICD-10 - F90.9) 11/04/2024 Attention deficit hyperactivity disorder (ADHD), unspecified ADHD type (ICD-10 - F90.9) . FDA approved stimulant medication for this age group. Discussed/Denies adverse effects from medication including HTN, tachycardia, insomnia, irritability, headache, or decreased appetite. . All relevant and serious adverse effects were discussed. Standard precautions and potential benefits were discussed. Patient/Guardian consented to begin medication/ continue treatment plan . Patient continues to meet criteria for attention deficit hyperactivity disorder. Pt does not meet criteria for bipolar disorder, major depressive disorder, or other persistent mood disorders. Will continue to monitor the patient for presentation of new symptoms or behaviors. . Continue current treatment; tolerating meds well, compliant; call for problems; questions answered satisfactorily, agreeable to treatment plan . GOALS: . Maintain medication regimen _Improve social and interpersonal functioning _Improve attention and or hyperactivity . follow up 1 month . Crisis Intervention plan was discussed and agreed upon. Patient/Guardian will call 911 in case of emergency. Emergency contact information was provided to the patient/guardian. . OARRS reviewed . 11/13/2024 Attention deficit hyperactivity disorder (ADHD), unspecified ADHD type (ICD-10 - F90.9) 12/05/2024 Attention deficit hyperactivity disorder (ADHD), unspecified ADHD type (ICD-10 - F90.9) . FDA approved stimulant medication for this age group. Discussed/Denies adverse effects from medication including HTN, tachycardia, insomnia, irritability, headache, or decreased appetite. . All relevant and serious adverse effects were discussed. Standard precautions and potential benefits were discussed. Patient/Guardian consented to begin medication/ continue treatment plan . Patient continues to meet criteria for attention deficit hyperactivity disorder. Pt does not meet criteria for bipolar disorder, major depressive disorder, or other persistent mood disorders. Will continue to monitor the patient for presentation of new symptoms or behaviors. . Continue current treatment; tolerating meds well, compliant; call for problems; questions answered satisfactorily, agreeable to treatment plan . GOALS: . Maintain medication regimen _Improve social and interpersonal functioning _Improve attention and or hyperactivity . follow up 1 months . Crisis Intervention plan was discussed and agreed upon. Patient/Guardian will call 911 in case of emergency. Emergency contact information was provided to the patient/guardian. . OARRS reviewed . 01/08/2025 Attention deficit hyperactivity disorder (ADHD), unspecified [...] contact information was provided to the patient/guardian. 12/05/2024 Generalized anxiety disorder (ICD-10 - F41.1) . Discussed seriousness of taking benzodiazepine medication daily and as needed, risks and benefits discussed including risk of addiction and accidental . Pt verbalized understanding. . High risk medications are drugs that have a heightened risk of causing significant patient harm when they are used in error. High risk medicines include medicines: with a low therapeutic index. that present a high risk when administered by the wrong route or when other system errors occur. Please notify provider for any concerns about your medications. . 01/08/2025 Bipolar disorder, current episode mixed, moderate (ICD-10 - F31.62) 11/04/2024 Generalized anxiety disorder (ICD-10 - F41.1) Prescribed per other PCP 10/09/2024 Generalized anxiety disorder (ICD-10 - F41.1) 10/23/2024 Generalized anxiety disorder (ICD-10 - F41.1) 11/04/2024 Bipolar disorder, current episode mixed, moderate (ICD-10 - F31.62) 01/08/2025 Generalized anxiety disorder (ICD-10 - F41.1) Plan Of Treatment Next Appt Details Provider Name:Wendi miranda, 02/05/2025 11:00:00 AM, [address] [place], [address], Insurance Providers Payer Name Payer Address Payer Phone Subscriber Number Group Number Insured Name Patient Relationship to Insured Coverage Start Date Coverage End Date [employer] [place] Medicaid [address] [place] [address] [id number] BAYRONJESSICA KABASA Self - patient is the insured 5 [employer] [facility] [facility] [address] [place] [address] [id number] COLTON VERMA Self - patient is the insured 5 [facility] [address] [place] [address] [id number] COLTON VERMA Self - patient is the insured 3 4 [employer] [place] Medicaid [address] [place] [address] [phone] [id number] COLTON VERMA Self - patient is the insured 5 Medical (General) History Medical History History ICD Code Depression Anxiety OCD OCPD Valdo ADHD Stage 4 endometriosis PTSD Surgical History Surgery Date(Month/Year) Endometriosis 2021 Cortizone injection 2002 Hospitalization History Reason Date(Month/Year) childbirth
--- OUTSIDE RECORDS SUMMARY | 2025-01-13 12:38 | XMS_ITS | Encounter Summary ---
Author Organization [facility] Address [address] [place] [address] Care Team Providers Care Business Objects Consultant Name Role Phone EllyJaspal nicole Fay COMPTOMETER OPERATOR Primary Care Provider Won Rueda DO Unavailable Encounter Details Date Type Department Care Team (Late st Contact Info) Description 05/08/2024 Clinisync Result Encounter [facility] External Department Unsolicited Won Rueda DO [address] [place] [address] Social History Tobacco Use Types [...] Priority Date/Time Associated Diagnosis Comments OB GROWTH 05/08/2024 12:30 PM EDT documented in this encounter Results * US OB GROWTH (05/08/2024 12:30 PM EDT) Anatomical Region Laterality Modality Other 05/08/2024 12:3 0 PM EDT Narrative 05/08/2024 12:33 PM EDT The [address] [address] Ultrasound Report Signed Patient: GOLDIE VERMA MR#: [id number] : 1995 Acct:[id number] Age/Sex: 28 / F ADM Date: 05/08/24 Loc: [facility] Attending Dr: Won Rueda D.O. Ordering Physician: Won Rueda D.O. Date of Service: 05/08/24 Procedure(s): US OB growth Accession Number(s): [id number] cc: Won Rueda D.O.; JASPAL MAXWELL [place] [address] Patient Name: GOLDIE VERMA MRN: [facility]:[id number] date: 1995 Sex: F Assigned Patient Location: [facility] Current Patient Location: [facility] Accession/Order Number: [id number] Exam Date: 05/08/2024 10:32 Report Date: 05/08/2024 12:30 At the request of: WON RUEDA Procedure: US OB growth EXAMINATION: US OB growth HISTORY: GESTATIONAL DIABETES COMPARISON: No relevant comparison available. FINDINGS: Heart Rate: 144 bpm Amniotic Fluid Volume: 11.8 cm, largest fluid pocket 4.2 cm Number: 1 Position: Cephalic presentation, longitudinal lie BIOMETRY: BPD: 6.97 cm; 28 weeks 0 days; 17.70 % HC: 25.63 cm; 27 weeks 6 days; 4.90 % AC: 24.10 cm; 28 weeks 3 days; 32.70 % FL: 5.64 cm; 29 weeks 4 days; 62.10 % EFW: 1180.19 g; 36.80 %, 2 lbs. 13 oz. FL/AC: 23.40 FL/BPD: 80.92 HC/AC: 1.06 GESTATIONAL AGE: Age by EDC: 28 weeks 5 days SINA by EDC: 2024-07-26 Age by US: 28 weeks 3 days SINA by US: 2024-07-28 US/US OB growth IMPRESSION: Head circumference at the 5th percentile, otherwise normal interval growth Electronically authenticated by: DARLINE ESPITIA Date: 05/08/2024 12:30 Dictated By: Darline Espitia M.D. Signed By: 05/08/24 1233 DD/ 1230 TD/TT: Mill Dresser: Procedure Note Radiology, Radiologist, - 05/08/2024 [place] [address] Ultrasound Report Signed Patient: GOLDIE VERMAMR#: [id number] : 1995Acct:[id number] Age/Sex: 28 / FADM Date: 05/08/24 Loc: [facility] Attending Dr: Won Rueda D.O. Ordering Physician: Won Rueda D.O. Date of Service: 05/08/24 Procedure(s): US OB growth Accession Number(s): [id number] cc: Won Rueda D.O.; JASPAL MAXWELL [place] [id number] Patient Name: GOLDIE VERMA MRN: [id number] date: 1995 Sex: F Assigned [facility] Current [facility] Accession/Order Number: [id number] Exam Date: 05/08/2024 10:32 Report Date: 05/08/2024 12:30 At the request of: WON RUEDA Procedure: US OB growth EXAMINATION: US OB growth HISTORY: GESTATIONAL DIABETES COMPARISON: No relevant comparison available. FINDINGS: Heart Rate: 144 bpm Amniotic Fluid Volume: 11.8 cm, largest fluid pocket 4.2 cm Number: 1 Position: Cephalic presentation, longitudinal lie BIOMETRY: BPD: 6.97 cm; 28 weeks 0 days; 17.70 % HC: 25.63 cm; 27 weeks 6 days; 4.90 % AC: 24.10 cm; 28 weeks 3 days; 32.70 % FL: 5.64 cm; 29 weeks 4 days; 62.10 % EFW: 1180.19 g; 36.80 %, 2 lbs. 13 oz. FL/AC: 23.40 FL/BPD: 80.92 HC/AC: 1.06 GESTATIONAL AGE: Age by EDC: 28 weeks 5 days SINA by EDC: 2024-07-26 Age by US: 28 weeks 3 days SINA by US: 2024-07-28 US/US OB growth IMPRESSION: Head circumference at the 5th percentile, otherwise normal interval growth Electronically authenticated by: DARLINE ESPITIA Date: 05/08/2024 12:30 Dictated By: Darline Espitia M.D. Signed By:05/08/24 1233 DD/ 1230 TD/TT: Mill Dresser: Won Rueda DO [facility] Final Result documented in this encounter Visit Diagnoses Not on filedocumented in this encounter Care Teams Business Objects Consultant Relationship Specialty Start Date End Date Jaspal Maxwell NP [address] [place] [address] [place] [address] PCP - General Family Medicine 11/11/23 Won Rueda DO [address] [place] [address] [place] [address] PCP - FFS State MANAGEMENT PLANNER 08/20/24 documented as of this encounter
--- OUTSIDE RECORDS SUMMARY | 2025-01-13 12:38 | XMS_ITS | Encounter Summary ---
Author Organization [facility] Address [address] [place] [address] Care Team Providers Care Weight Loss Consultant Name Role Phone Lucila Arnett NP Primary Care Provider Moi Rueda DO Unavailable Encounter Details Date Type Department Care Team (Late st Contact Info) Description 04/25/2024 Abstract [facility] B[facility] OB [address] [place] [address] Zakiya Traylor LPN Social History Tobacco [...] on filedocumented in this encounter Care Teams Weight Loss Consultant Relationship Specialty Start Date End Date Lucila Arnett NP [address] [facility] [place] [facility] PCP - General Family Medicine 11/11/23 Moi Rueda DO [address] [place], [place] [id number] PCP - FFS [facility] 08/20/24 documented as of this encounter
--- OUTSIDE RECORDS SUMMARY | 2025-01-13 12:38 | XMS_ITS | Encounter Summary ---
Author Organization [facility] Address [address] [place] [address] Care Team Providers Care Safety Tech Name Role Phone Lucila Arnett NP Primary Care Provider Moi Rueda DO Unavailable Encounter Details Date Type Department Care Team (Late st Contact Info) Description 04/25/2024 Abstract [facility] BCP OB [address] [place] [address] Moi Rueda DO [address] [place], [facility] Social History Tobacco Use Types Packs/Day [...] on filedocumented in this encounter Care Teams Safety Tech Relationship Specialty Start Date End Date Lucila Arnett NP [address] [facility] [place] [address] PCP - General Family Medicine 11/11/23 Moi Rueda DO [address] [place], [place] [id number] PCP - FFS State ENGINEER CHIEF 08/20/24 documented as of this encounter
[2025-01-14 08:08] LABS: Varicella-Zoster V Ab, IgG Reactive (Non Reactive)
== END 2025-01-13 12:33 | disposition home or self-care (01) ==
LOC: LAB 12:34
PROVIDERS: PCP Nurse Practitioner Family; Visit Provider Nurse Practitioner Family
DX: R76.0 Raised antibody titer (principal)
CPT/HCPCS: 36415; 86787

== ENCOUNTER 2025-06-29 11:28 | Outpatient (OUT) | payer OTHER, SELFPAY ==
--- OUTSIDE RECORDS SUMMARY | 2025-06-22 13:00 | XMS_ITS | Encounter Summary ---
Author Organization [facility] Address [address] [place] [address] Care Team Providers Care Risk Engineer Name Role Phone EllyLucila nicole DRAFTER PLUMBING Primary Care Provider Reason for Visit * ReasonCommentsConsult Encounter Details DateTypeDepartmentCare Team (Latest Contact Info)Rlpjoyumsoo16/03/2025 1:00 PM ESTOffice Visit [facility] [address] [place] [address] Moi Rueda DO [address] Michele He, [facility]11 Dysmenorrhea; Abnormal uterine bleeding (AUB); Bleeding disorder; PCOS (polycystic ovarian syndrome); Pelvic pain in female Social History Tobacco UseTypesPacks/DayYears UsedDateSmoking Tobacco: NeverSmokeless Tobacco: NeverCommentsUnknownSex and Gender InformationValueDate RecordedSex Assigned at BirthNot on fileLegal GcwMsvlwr78/15/2023 7:02 PM EDTGender Identity Not on fileSexual OrientationNot on filedocumented as of this encounter Last Filed Vital Signs Vital SignReadingTime TakenCommentsBlood Skviwlpd358/7806/22/2025 1:18 PM EST Pulse--Temperature--Respiratory Rate--Oxygen Saturation--Inhaled Oxygen Concentration--Peavun27.5 kg (137 lb 12.8 oz)06/22/2025 1:18 PM WUUUlyicd593.3 cm (5' 11 )06/22/2025 1:18 PM ESTBody Mass Index19.22108/22/2024 1:18 PM EST documented in this encounter Progress Notes * Moi Rueda DO - 06/22/2025 1:00 PM EST Reason for Appointment: Patient ID: Goldie Medrano is a 29 y.o. female who presents for Consult Patient presents today for Acute Visit. MEDICATIONS Current Outpatient Medications Medication Instructions amphetamine-dextroamphetamine XR (Adderall XR) 10 MG 24 hr capsule TAKE 1 CAPSULE BY MOUTH DAILY INTHE MORNING amphetamine-dextroamphetamine XR (Adderall XR) 20 MG 24 hr capsule baclofen (Lioresal) 10 MG tablet TAKE 1 TABLET BY MOUTH THREE TIMES DAILY FOR 10 DAYS citalopram (CELEXA) 20 mg, Oral, Daily clonazePAM (KLONOPIN) 0.5 mg, 2 times daily PRN tiZANidine (ZANAFLEX) 4 mg, Every 6 hours PRN Vraylar 1.5 MG capsule 1 capsule, Daily ALLERGIES Allergies Allergen Reactions Emgality [Galcanezumab-Gnlm] Galcanezumab Hives Other Reaction(s): Hives Tramadol Hives, Unknown and Rash Other Reaction(s): Not available Other Reaction(s): Unknown, Unknown Reaction Lavender Oil Unknown and Rash PROBLEMS Active Ambulatory Problems Diagnosis Date Noted Right hip pain 01/03/2024 History of placenta abruption 01/03/2024 Nausea and vomiting in ([facility]) 01/03/2024 Heartburn during in first trimester ([facility]) 01/03/2024 H/O delivery, currently , first trimester ([facility]) 01/03/2024 Abdominal pain affecting ([facility]) 01/03/2024 First trimester ([facility]) 01/03/2024 Dizziness 01/03/2024 Pelvic pain in female 03/27/2024 Second trimester ([facility]) 03/27/2024 Diabetes mellitus screening 03/27/2024 24 weeks gestation of ([facility]) 04/10/2024 Prior with placenta abruption in third trimester, antepartum ([facility]) 04/10/2024 Resolved Ambulatory Problems Diagnosis Date Noted No Resolved Ambulatory Problems Past Medical History: Diagnosis Date Anxiety Depression Endometriosis Heavy menses Irregular menstruation, unspecified OCD (obsessive compulsive disorder) Pelvic pain Personal history of other complications of , childbirth and the puerperium PTSD (post-traumatic stress disorder) HISTORY PAST MEDICAL HISTORY SOCIAL HISTORY Past Medical History: Diagnosis Date Anxiety Depression Endometriosis Heavy menses Irregular menstruation, unspecified OCD (obsessive compulsive disorder) Pelvic pain Personal history of other complications of , childbirth and the puerperium PTSD (post-traumatic stress disorder) Social History Tobacco Use Smoking status: Never Smokeless tobacco: Never Substance Use Topics Alcohol use: Not on file Drug use: Not on file FAMILY HISTORY No family history on file. SURGICAL HISTORY Past Surgical History: Procedure Laterality Date LASER LAPAROSCOPY WISDOM TOOTH EXTRACTION REVIEW OF SYSTEMS Review of Systems: Review of Systems Constitutional: Negative. HENT: Negative. Eyes: Negative. Respiratory: Negative. Cardiovascular: Negative. Gastrointestinal: Negative. Genitourinary: Positive for menstrual problem, pelvic pain and vaginal bleeding. Musculoskeletal: Negative. Skin: Negative. Neurological: Negative. All other systems reviewed and are negative. Hematological: Negative. Endocrine: Negative. Allergic/Immunologic: Negative. OBJECTIVE Objective: Physical Exam Constitutional: Appearance: Normal [...] nursing note reviewed. Exam conducted with a court worker present. Vitals: Estimated body mass index is 19.22 kg/m?? as calculated from the following: Height as of this encounter: 5' 11 . Weight as of this encounter: 137 lb 12.8 oz. BP: 114/78 No LMP recorded. Assessment/Plan ICD-10-CM 1. Dysmenorrhea N94.6 Factor 5 leiden Protein, total DRVVT Beta-2 glycoprotein antibodies Antithrombin III Protein S antigen, free Protein C activity Cardiolipin antibody, IgG Cardiolipin antibody, IgM hCG, quantitative, TSH T4, free CBC and differential Follicle stimulating hormone Luteinizing hormone Hemoglobin A1c DHEA-sulfate DHEA US Pelvis w/ TV Factor 5 leiden Protein, total DRVVT Beta-2 glycoprotein antibodies Antithrombin III Protein S antigen, free Protein C activity Cardiolipin antibody, IgG Cardiolipin antibody, IgM DHEA 2. Abnormal uterine bleeding (AUB) N93.9 Factor 5 leiden Protein, total DRVVT Beta-2 glycoprotein antibodies Antithrombin III Protein S antigen, free Protein C activity Cardiolipin antibody, IgG Cardiolipin antibody, IgM hCG, quantitative, TSH T4, free CBC and differential Follicle stimulating hormone Luteinizing hormone Hemoglobin A1c DHEA-sulfate DHEA US Pelvis w/ TV Factor 5 leiden Protein, total DRVVT Beta-2 glycoprotein antibodies Antithrombin III Protein S antigen, free Protein C activity Cardiolipin antibody, IgG Cardiolipin antibody, IgM DHEA 3. Bleeding disorder D69.9 4. PCOS (polycystic ovarian syndrome) E28.2 5. Pelvic pain in female R10.20 Factor 5 leiden Protein, total DRVVT Beta-2 glycoprotein antibodies Antithrombin III Protein S antigen, free Protein C activity Cardiolipin antibody, IgG Cardiolipin antibody, IgM hCG, quantitative, TSH T4, free CBC and differential Follicle stimulating hormone Luteinizing hormone Hemoglobin A1c DHEA-sulfate DHEA US Pelvis w/ TV Factor 5 leiden Protein, total DRVVT Beta-2 glycoprotein antibodies Antithrombin III Protein S antigen, free Protein C activity Cardiolipin antibody, IgG Cardiolipin antibody, IgM DHEA Patient voiced that she has been having ongoing pelvic pain and has tried oral control without improvement. Patient voiced that she has had this ongoing for years and effects ADL's and her ability to walk someday's. Patient voiced that her PCP gave her placard so she did not have to walk far.Discussed endometrial ablation with bilateral salpingectomy. Patient discussed that the pain is so bad that she is unable to eat. Patient has never seen GI. Discussed in the future if pain is still persistent after ablation, then next step would be partial hysterectomy. Patient given labs and US tohave obtained. Patient has already had PT and it made symptoms worse. Documented by Zakiya Traylor LPN on behalf of: Moi Rueda DO documented in this encounter Plan of Treatment NameTypePriorityAssociated DiagnosesOrder ScheduleFactor 5 leidenLabRoutine Dysmenorrhea Abnormal uterine bleeding (AUB) Pelvic pain in female Expected: 06/22/2025 (Approximate), Expires: 06/22/2026Protein, totalLabRoutine Dysmenorrhea Abnormal uterine bleeding (AUB) Pelvic pain in female Expected: 06/22/2025 (Approximate), Expires: 06/22/2026DRVVTLabRoutine Dysmenorrhea Abnormal uterine bleeding (AUB) Pelvic pain in female Expected: 06/22/2025 (Approximate), Expires: 06/22/2026eta-2 glycoprotein antibodiesLabRoutine Dysmenorrhea Abnormal uterine bleeding (AUB) Pelvic pain in female Expected: 06/22/2025 (Approximate), Expires: 06/22/2026ntithrombin IIILab Routine Dysmenorrhea Abnormal uterine bleeding (AUB) Pelvic pain in female Expected: 06/22/2025 (Approximate), Expires: 06/22/2026Protein S antigen, free LabRoutine Dysmenorrhea Abnormal uterine bleeding (AUB) Pelvic pain in female Expected: 06/22/2025 (Approximate), Expires: 06/22/2026Protein C activityLab Routine Dysmenorrhea Abnormal uterine bleeding (AUB) Pelvic pain in female Expected: 06/22/2025 (Approximate), Expires: 06/22/2026ardiolipin antibody, IgG LabRoutine Dysmenorrhea Abnormal uterine bleeding (AUB) Pelvic pain in female Expected: 06/22/2025 (Approximate), Expires: 06/22/2026ardiolipin antibody, IgM LabRoutine Dysmenorrhea Abnormal uterine bleeding (AUB) Pelvic pain in female Expected: 06/22/2025 (Approximate), Expires: 06/22/2026hCG, quantitative, pregnancyLabRoutine Dysmenorrhea Abnormal uterine bleeding (AUB) Pelvic pain in female Ordered: 06/22/2025TSHLabRoutine Dysmenorrhea Abnormal uterine bleeding (AUB) Pelvic pain in female Ordered: 06/22/2025T4, freeLabRoutine Dysmenorrhea Abnormal uterine bleeding (AUB) Pelvic pain in female Ordered: 06/22/2025BC and differentialLabRoutine Dysmenorrhea Abnormal uterine bleeding (AUB) Pelvic pain in female Ordered: 06/22/2025Follicle stimulating hormoneLabRoutine Dysmenorrhea Abnormal uterine bleeding (AUB) Pelvic pain in female Ordered: 06/22/2025Luteinizing hormoneLabRoutine Dysmenorrhea Abnormal uterine bleeding (AUB) Pelvic pain in female Ordered: 06/22/2025Hemoglobin U5lAxnIzmdyku Dysmenorrhea Abnormal uterine bleeding (AUB) Pelvic pain in female Ordered: 06/22/2025DHEA-sulfateLabRoutine Dysmenorrhea Abnormal uterine bleeding (AUB) Pelvic pain in female Ordered: 06/22/2025DHEALabRoutine Dysmenorrhea Abnormal uterine bleeding (AUB) Pelvic pain in female Expected: 06/22/2025 (Approximate), Expires: 06/22/2026US Pelvis w/ TVImaging Routine Dysmenorrhea Abnormal uterine bleeding (AUB) Pelvic pain in female Expected: 06/22/2025, Expires: 06/22/2026documented as of this encounter Visit Diagnoses Diagnosis Dysmenorrhea Abnormal uterine bleeding (AUB) Bleeding disorder Unspecified hemorrhagic conditions PCOS (polycystic ovarian syndrome) Polycystic ovaries Pelvic pain in female Unspecified symptom associated with female genital organs documented in this encounter Care Teams Team MemberRelationshipSpecialtyStart DateEnd Date Lucila Arnett NP [address] [place] [id number] PCP - GeneralFamily Medicine11/11/23documented as of this encounter
--- OUTSIDE RECORDS SUMMARY | 2025-06-24 06:34 | XMS_ITS | Continuity of Care Document ---
Author Organization [facility] Address [address] [place] [address] Phone Care Team Providers Care Transferrer Name Role Phone Lucila Arnett APRN Primary Care Provider Lucila Arnett APRN Attending Provider Care Teams Patient Care Team Team Status: Active Member Role/Relationship Status Dates Lucila Arnett APRN [employer] Primary Care Provider Active Patient Care Team Team Status: Inactive Member Role/Relationship Status Dates Lucila Arnett APRN [employer] Primary Care Provider Active Start: June End: June 24, 2025Lucila Arnett APRN [employer]-CAttending ProviderActive Start: June 24, 2025 End: June 24, 2025 Chief Complaint and Reason for Visit Chief Complaint Admit Date Endometriosis, Pain June 24, 2025 1 0:49am Reason for Visit Admit Date Endometriosis June 24, 2025 1 0:49am Allergies, Adverse Reactions, Alerts Allergen Type Severity Reaction Last Updated Verified Status lavender (Lavandula angustifolia) Allergy Unknown Unknown Reaction December 30, 2024 7:30am Yes Active tramadol Allergy Unknown Unknown Reaction December 7:30am Yes Active Social History Smoking Status Unknown if ever smoked Observation Status Observation Response Date of Response Legal Sex Female (finding) [facility] Family History Relationship Condition Age at Onset Recorded Date/T mike father Prediabetes Unknown grandparentDiabetes mellitusUnknownmotherFamily history of other condition Unknown Problems Active Problems Problem Diagnosis/Recorded Date Onset Date Status C omments Generalized anxiety disorder October 16, 2023 9:33am Un known Active PTSD (post-traumatic stress disorder)October 16, 2023 9:33amUnknownActive Migraine, unspecified, not intractable, without status migrainosusFebruary 2023 9:33amUnknownActiveHistory of iron deficiencyMarch 2023 1:37pmUnknown ActiveFatigueMarch 2023 1:37pmUnknownActiveVaginal dischargeJanuary 2024 3:19pmUnknownActiveTBI (traumatic brain injury)October 16, 2023 9:33am UnknownActiveDepressionFebruary 2023 9:33amUnknownActiveWith manic episodesObsessive compulsive disorderFebruary 2023 9:33amUnknownActive Tooth abscessJanuary 2024 11:23amUnknownActiveEndometriosisFebruary 2023 9:33amUnknownActiveSurgical Removal d9Lucai 4AsthmaAugust 2024 9:49am UnknownActive Medications Medication Status Dose Units Route Directions Qty Days Refills S tart Date Stop Date End Date Reason(s) Instructions Adherence Meloxicam 7.5 mg tablet Discontinued 7.5 MG PO Daily 30 3 0 1 October 24, 2023 12:00am October 26, 2023 2:24pmEndometriosis Endometriosis, unspecifiedMeloxicam 7.5 mg tabletDiscontinued7.0SQDIOnfav30983 October 26, 2023 2:24pmJanuary 2024 2:20pmEndometriosis Endometriosis, unspecifiedLevonorgestrel (Plan B One-Step) 1.5 mg tabletActive 1.1SFPJBbnl07Srrqq 2024 11:00pmUnknownClonazepam 0.5 mg tabletActive0.5MG POTwice daily as needed for bcluvjn27077Obixw 2024 10:09amGeneralized anxiety disorder Generalized anxiety disorderUnknownTizanidine 2 mg jmqlueXtogrdumwaxp9EZTIIxvxz 8 hours as needed for muscle ujvgeodpwf50344Cluj 2024 11:00pmNovember 2024 3:31pmEndometriosis Endometriosis, unspecifiedAlbuterol Sulfate 90 mcg/actuation HFA aerosol inhaler Bmlzkc4VVETUORQYZXUIQHHLPB 4-6 HOURS as needed for shortness of breath or wheezing6.7305August 2024 11:00pmAsthma Unspecified asthma, uncomplicatedUnknownTizanidine 2 mg tabletActive0.ROUTE .TEQGMOZ153Gfwtyzop 4th, 2025 3:31pmEndometriosis Endometriosis, unspecifiedTAKE 1 TABLET BY MOUTH EVERY 8 HOURS NEEDED FOR MUSCLE SPASMSUnknownClonazepam 0.5 mg tabletDiscontinued0.5MGPO.COMPLEXFebruary 2023 12:00amNovember 2023 1:45pm1 tablet in the am and 2 tablets at bedtime Orally twice dailyTizanidine 4 mg xaynikXejmrgeqtxik1IICUPbaja times daily as neededFebruary 2023 12:00amJanuary 2024 2:19pmTizanidine 2 mg wsoaquEkzqflwowclb5ZATHGdcfk 8 hours as needed for muscle qenkzbyblu84065 September 08, 2024 12:00amMay 2024 8:28amEndometriosis Endometriosis, unspecifiedClonazepam 0.5 mg tabletDiscontinued0.5MGPOTwice daily as needed for lycveem66848Knosndd2024 3:21pmApril 2024 10:11am Generalized anxiety disorder Generalized anxiety disorderAmoxicillin-Pot Clavulanate 875-125 mg tablet Sfdrovbazmic0VTKARDakku ixkkw97533Wgskfxb2024 12:00amMarch 2024 9:24amKetorolac 10 mg urhuzrIcbwxj05LPLYHhmbr 8 kkuqz8931Qmkjuqex2024 12:00amEndometriosis Endometriosis, unspecifiedmaximum total duration of 5 days from all oral, intranasal, or parenteral formulationsComplies with drug therapyClonazepam 0.5 mg tabletDiscontinued0.5MGPOTwice daily as needed for ranzmhr02890Eynajpze2023 1:15pmJanuary 2024 3:22pmGeneralized anxiety disorder Generalized anxiety disorderBaclofen 10 mg pxjfemXivhsgvivejb69HCRJBtcxw times atrug86359Ehs2024 11:00pmJuly 2024 10:02amEndometriosis Endometriosis, unspecified Advance Directives Advance Directive Response Recorded Date/ Time Advance Directives No June 23, 2025 2:22pm Insurance Providers Guarantor Goldie Medrano Address [address] [facility] [address]Xvjbuhk Info.Home Phone: Coverage Status Update:2024 Payer Group Member ID Coverage Type Subscriber Relationship to Subscriber Effective Date Expiration Date [employer] [id number] Mitchell Id: [id number] [address] [facility] [address] [facility] Phone[facility] [id number] Mitchell Id: [id number] [address] [facility] [address] Home Phone: self Encounters Encounter Location(s) Arrival/Admit Date Discharge/Departure Date Discharge/Departure Disposition Provider(s) Departed Physician/ Provider Office Visit -[facility] June 24, 2025 10:49am June 24, 2025 11:33am Discharged to home care or self care (routine discharge) Lucila Arnett APRN CNP Recent Diagnosis Onset Date Admit Date Endometriosis Unknown June 24 10:49am Assessments Diagnosis Onset Date Resolution Status Admit Date Endometriosis acuteNov2024 10:49am
--- OUTSIDE RECORDS SUMMARY | 2025-06-29 11:31 | XMS_ITS | Encounter Summary ---
Author Organization [facility] Address [address] [place] [address] Care Team Providers Care Machine Shop Specialist Name Role Phone EllyJaspal nicole Fay CHANG Primary Care Provider Won Rueda DO Unavailable Encounter Details DateTypeDepartmentCare Team (Latest Contact Info)Vfnzwqhqtnu39/08/2024Clinisync Result Encounter [facility] External Department Unsolicited Won Rueda, DO [address] [place] [address] Social History Tobacco UseTypesPacks/DayYears UsedDateSmoking Tobacco: Never Assessed CommentsYesSex and Gender InformationValueDate RecordedSex Assigned at BirthNot on fileLegal UbfTybaer99/15/2023 7:02 PM EDTGender IdentityNot on fileSexual OrientationNot on filedocumented as of this encounter Plan of Treatment Not on file documented as of this encounter Procedures Procedure NamePriorityDate/TimeAssociated DiagnosisCommentsUS QFGYZNQS51/08/2024 1:45 PM EDT documented in this encounter Results * US APPENDIX (12/26/2023 1:45 PM EDT)Anatomical RegionLateralityModality Radiographic ImagingSpecimen (Source)Anatomical Location / Laterality Collection Method / VolumeCollection TimeReceived Time12/26/2023 1:45 PM EDT Narrative 12/26/2023 1:48 PM EDT [facility] ?[address] ? [place] [address] ? Ultrasound Report ? Signed ? Patient: BAYRON,GOLDIE ?MR#: [id number] ?? : 1995 ?Acct:[id number] ?? Age/Sex: 28 / F ?ADM Date: 05/08/24 ?? Loc: US ? Attending Dr: Won Rueda D.O. ? Ordering Physician: Won Rueda D.O. ?? Date of Service: 12/26/23 ?? Procedure(s): US appendix ?? Accession Number(s): [id number] ? cc: Won Rueda D.O.; JASPAL MAXWELL ? [facility] ? [address] ? [place] [address] ? Patient Name: ?? GOLDIE ??BAYRON ? MRN: [facility]:[id number] ? date: 1995 ?Sex: F ?? Assigned Patient Location: US ?? Current Patient Location: US ?? Accession/Order Number: [id number] ?? Exam Date: 12/26/2023 ??12:42 ?Report Date: 12/26/2023 ??13:45 ? At the request of: ?? WON ??MARYBETH ? Procedure: ??US appendix ? EXAM: US appendix ? HISTORY: RIGHT PELVIC PAIN ? COMPARISON: None. ? TECHNIQUE: Grayscale and color ultrasound ? FINDINGS: ? Ultrasound of the right lower quadrant demonstrates normal skin, subcutaneous ?? fat, muscle and intraperitoneal contents. The appendix is not definitively ?? visualized. No ascites. ? US/US appendix ?? IMPRESSION: ? Nonvisualization of the appendix ? Electronically authenticated by: DARLINE ??NUPUR ?? Date: 12/26/2023 ??13:45 ? Dictated By: ?Darline Espitia M.D. ? Signed By: ?12/26/23 1348 ? DD/ 1345 ? TD/TT: ? Director Of Graduate Admissions: Procedure Note Radiology, Radiologist, - 12/26/2023 [place] [address] Ultrasound Report Signed Patient: GOLDIE VERMAMR#: [id number] : 1995Acct:[id number] Age/Sex: 28 / FADM Date: 12/26/23 Loc: US Attending Dr: Won Rueda D.O. Ordering Physician: Won Rueda D.O. Date of Service: 12/26/23 Procedure(s): US appendix Accession Number(s): [id number] cc: Won Rueda D.O.; JASPAL MAXWELL [facility] [address] [place], [place] [id number] Patient Name: GOLDIE VERMA MRN: [facility]:[id number] date: 1995 Sex: F Assigned Patient Location: US Current Patient Location: Accession/Order Number: [id number] Exam Date: 12/26/2023 12:42 Report Date: 12/26/2023 [...] M.D. Signed By:12/26/23 1348 DD/ 1345 TD/TT: Director Of Graduate Admissions: Authorizing ProviderResult TypeResult StatusCorey Marybeth DOIMG XR PROCEDURESFinal Result documented in this encounter Visit Diagnoses Not on filedocumented in this encounter Care Teams Team MemberRelationshipSpecialtyStart DateEnd Date Jaspal Maxwell NP [address] [facility] [place] [address] PCP - GeneralFamily Medicine11/11/23 Won Rueda DO [address] [place] [address] [facility] [place] [address] PCP - [facility]FS [facility]//documented as of this encounter
--- OUTSIDE RECORDS SUMMARY | 2025-06-29 11:31 | XMS_ITS | Encounter Summary ---
Author Organization [facility] Address [address] [place] [address] Care Team Providers Care Md Do Resident Urgent Care Name Role Phone SteveJaspal perdomo Fay CHANG Primary Care Provider Won uReda DO Unavailable Encounter Details DateTypeDepartmentCare Team (Latest Contact Info)Cwxtqirftkt83/15/2024Clinisync Result Encounter [facility] External Department Unsolicited Won Rueda, DO [address] [facility] [place] [address] Social History Tobacco UseTypesPacks/DayYears UsedDateSmoking Tobacco: Never Assessed CommentsYesSex and Gender InformationValueDate RecordedSex Assigned at BirthNot on fileLegal LuyLgfisu58/15/2023 7:02 PM EDTGender IdentityNot on fileSexual OrientationNot on filedocumented as of this encounter Plan of Treatment Not on file documented as of this encounter Procedures Procedure NamePriorityDate/TimeAssociated DiagnosisCommentsUS OB BPP W NON-UZYOEO5207/04/2024 4:14 AM EST documented in this encounter Results * US OB BPP W NON-STRESS (07/04/2024 4:14 AM EST)Anatomical Region LateralityModalityOtherSpecimen (Source)Anatomical Location / Laterality Collection Method / VolumeCollection TimeReceived Time07/04/2024 4:14 AM EST Narrative 07/04/2024 4:16 AM EST [facility] ?[address] ? [place] [address] ? Ultrasound Report ? Signed ? Patient: BAYRON,GOLDIE ?MR#: [id number] ?? : 1995 ?Acct:[id number] ?? Age/Sex: 28 / F ?ADM Date: 11/14/24 ?? Loc: US ? Attending Dr: Won Rueda D.O. ? Ordering Physician: Won Rueda D.O. ?? Date of Service: 07/03/24 ?? Procedure(s): US OB BPP w non-stress ?? Accession Number(s): [id number] ? cc: Won Rueda D.O.; JASPAL MAXWELL ? [facility] ? [address] ? [place] [address] ? Patient Name: ?? GOLDIE ??BAYRON ? MRN: [facility]:[id number] ? date: 1995 ?Sex: F ?? Assigned Patient Location: [facility] ?? Current Patient Location: US ?? Accession/Order Number: [id number] ?? Exam Date: 07/03/2024 ??10:55 ?Report Date: 07/04/2024 ??04:14 ? At the request of: ?? WON ??MARYBETH ? Procedure: ??US OB BPP w non-stress ? EXAMINATION: US OB BPP w non-stress ? HISTORY:H/O LABOR ? COMPARISON: Ultrasound OB biophysical 06/27/2024 ? TECHNIQUE: Ultrasound biophysical profile was performed in the radiology ?? department. ? BREATHING MOVEMENTS: 2 ?? GROSS BODY MOVEMENTS: 2 ?? TONE: 2 ?? QUALITATIVE AMNIOTIC FLUID VOLUME: 2 ? PRESENTATION: CEPHALIC ?? HEART RATE: 150.84 bpm ?? AMNIOTIC FLUID VOLUME: 16.04 cm ?? GESTATIONAL AGE: 36 weeks 5 days ? US/US OB BPP w non-stress ?? IMPRESSION: ? Total biophysical profile score: 8 ? Electronically authenticated by: HARRISON ??BOB ?? Date: 07/04/2024 ??04:14 ? Dictated By: ?Harrison Saxena M.D. ? Signed By: ?07/04/24415 ? DD/ 3 ? TD/TT: ? Shop Director: Procedure Note Radiology, Radiologist, MD - 07/04/2024 [place] [address] Ultrasound Report Signed Patient: JESSICA VERMAMR#: [id number] : 1995Acct:[id number] Age/Sex: 28 / FADM Date: 07/03/24 Loc: US Attending Dr: Won Rueda D.O. Ordering Physician: Won Rueda D.O. Date of Service: 07/03/24 Procedure(s): US OB BPP w non-stress Accession Number(s): [id number] cc: Won Rueda D.O.; JASPAL MAXWELL [facility] [address] [place], [place] [address] Patient Name: GOLDIE VERMA MRN: [facility]:[id number] date: 1995 Sex: F Assigned Patient Location: [facility] Current Patient Location: Accession/Order Number: [id number] Exam Date: 07/03/2024 10:55 Report Date: 07/04/2024 [...] Saxena M.D. Signed By:07/04/24415 DD/ 3 TD/TT: Shop Director: Authorizing ProviderResult TypeResult StatusCorey Marybeth DOCLINISYNC IMAGINGFinal Result documented in this encounter Visit Diagnoses Not on filedocumented in this encounter Care Teams Team MemberRelationshipSpecialtyStart DateEnd Date Jaspal Maxwell NP [address] [place] [address] PCP - GeneralFamily Medicine11/11/23 Won Rueda DO [address] [place] [address] Dr Michele He, [facility]11 PCP - FFS [facility] Centerdocumented as of this encounter
--- OUTSIDE RECORDS SUMMARY | 2025-06-29 11:31 | XMS_ITS | Clinical Summary ---
Author Organization [facility] Address [address] [place] [address] Care Team Providers Care Rn Clinical Coordinator Name Role Phone Lucila Arnett INFORMATION TECHNOLOGY ASSOCIATE Primary Care Provider Allergies Active AllergyReactionsCriticalityNoted DateCommentsGalcanezumab-GnlmHigh 11/21/20233234PcnvnxdtqepvEvpmtJalsst20/24/2024 Other Reaction(s): Hives Lavender OilUnknown,MopmYzt1010/16/2023TramadolHives,Unknown,WwazOjrytk92/27/2024 Other Reaction(s): Not available Other Reaction(s): Unknown, Unknown Reaction Medications MedicationSigDispense QuantityRefillsLast FilledStart DateEnd DateStatus clonazePAM (KlonoPIN) 0.5 MG tablet Take 0.5 mg by mouth 2 (two) times a day as needed for oglutje4507/16/2024ctive tiZANidine (Zanaflex) 4 MG tablet Take 4 mg by mouth every 6 (six) hours if needed for muscle ezuvjf2001/10/2024 Active citalopram (CeleXA) 20 MG tablet Indications:Mood disorderTake 1 tablet (20 mg) by mouth Daily 30 tablet 11008/27/0130786Active amphetamine-dextroamphetamine XR (Adderall XR) 10 MG 24 hr capsule TAKE 1 CAPSULE BY MOUTH DAILY IN THE LBLYHAU37/06/2025Active amphetamine-dextroamphetamine XR (Adderall XR) 20 MG 24 hr capsule 5Active baclofen (Lioresal) 10 MG tablet TAKE 1 TABLET BY MOUTH THREE TIMES DAILY FOR 10 DAYS5Active Vraylar 1.5 MG capsule Take 1 capsule by mouth Daily5Active Active Problems ProblemNoted DateDiagnosed Date24 weeks gestation of ([facility]) 4Prior with placenta abruption in third trimester, antepartum ([facility])4Pelvic pain in squdxe7903/27/2024Second trimester ([facility])03/27/2024iabetes mellitus xlixhkzdo79/08/2024Right hip pain01/03/2024 History of placenta ikidvtimv05/16/2024Nausea and vomiting in ([facility])01/03/2024Heartburn during in first trimester ([facility]) 01/03/2024H/O delivery, currently , first trimester ([facility]) 01/03/2024bdominal pain affecting ([facility])01/03/2024First trimester ([facility])01/03/20248422Wzylglikd46/16/2024 Encounters DateTypeDepartmentCare HboeEelitcmlyfq52/03/2025 1:00 PM ESTOffice Visit [facility] [address] [place] [address] [place] [id number] Moi Rueda DO Dysmenorrhea; Abnormal uterine bleeding (AUB); Bleeding disorder; PCOS (polycystic ovarian syndrome); Pelvic pain in valnoh3906/22/2025amboo flowsheet [facility] [address] [place] [address] [place] [address] Moi Rueda DO 06/17/2025Telephone [facility] [address] [place] [address] [place] [address] Moi Rueda DO from Last 3 Months Family History RelationNameStatusCommentsFatherAliveMotherAlive Social History Tobacco UseTypesPacks/DayYears UsedDateSmoking Tobacco: NeverSmokeless Tobacco: Never Tobacco Cessation:Counseling Given: Not Answered CommentsUnknownSex and Gender InformationValueDate RecordedSex Assigned at BirthNot on fileLegal BylNznojk78/15/2023 7:02 PM EDTGender IdentityNot on fileSexual OrientationNot on file Last Filed Vital Signs Vital SignReadingTime TakenCommentsBlood Zjkgncge191/7811 1:18 PM EST Cskif58832 8:20 AM ESTTemperature--Respiratory Ehvs0738 8:20 AM ESTOxygen Saturation--Inhaled Oxygen Concentration--Ukqpry98.5 kg (137 lb 12.8 oz)06/22/2025 1:18 PM ICVCqxgbd412.3 cm (5' 11 )06/22/2025 1:18 PM ESTBody Mass Index19.22108/22/2024 1:18 PM EST Plan of Treatment Health MaintenanceDue DateLast DoneCommentsCOVID-19 Vaccine ( season) 2025Influenza Vaccine (#1)509/, 06/13/2010Pneumococcal Vaccine: Pediatrics (0 to 5 Years) and At-Risk Patients (6 to 64 Years)Aged Out No longer eligible based on patient's age to complete this topic Insurance Care Teams Team MemberRelationshipSpecialtyStart DateEnd Date Lucila Arnett NP [facility] [facility] [place] [address] [facility]11/11/23
--- OUTSIDE RECORDS SUMMARY | 2025-06-29 11:31 | XMS_ITS | Encounter Summary ---
Author Organization [facility] Address [address] [place] [address] Care Team Providers Care Electronic Technologist Name Role Phone EllyJaspal nicole Fay CHANG Primary Care Provider Won Rueda DO Unavailable Encounter Details DateTypeDepartmentCare Team (Latest Contact Info)Qmsloqumrwf93/08/2024Clinisync Result Encounter [facility] External Department Unsolicited Won Rueda, DO [address] [facility] [place] [address] Social History Tobacco UseTypesPacks/DayYears UsedDateSmoking Tobacco: Never Assessed CommentsYesSex and Gender InformationValueDate RecordedSex Assigned at BirthNot on fileLegal ZxlKgagqr78/15/2023 7:02 PM EDTGender IdentityNot on fileSexual OrientationNot on filedocumented as of this encounter Plan of Treatment Not on file documented as of this encounter Procedures Procedure NamePriorityDate/TimeAssociated DiagnosisCommentsUS OB TRANSVAGINAL 12/26/2023 1:44 PM EDT documented in this encounter Results * US OB TRANSVAGINAL (12/26/2023 1:44 PM EDT)Anatomical RegionLateralityModality OtherSpecimen (Source)Anatomical Location / LateralityCollection Method / VolumeCollection TimeReceived Time12/26/2023 1:44 PM EDT Narrative 12/26/2023 1:47 PM EDT [facility] ?[address] ? [place] [address] ? Ultrasound Report ? Signed ? Patient: BAYRON,GOLDIE ?MR#: [id number] ?? : 1995 ?Acct:[id number] ?? Age/Sex: 28 / F ?ADM Date: 05/08/24 ?? Loc: US ? Attending Dr: Won Rueda D.O. ? Ordering Physician: Won Rueda D.O. ?? Date of Service: 12/26/23 ?? Procedure(s): US OB transvaginal ?? Accession Number(s): [id number] ? cc: Won Rueda D.O.; JASPAL MAXWELL ? [facility] ? [address] ? [place] [address] ? Patient Name: ?? GOLDIE ??BAYRON ? MRN: [facility]:[id number] ? date: 1995 ?Sex: F ?? Assigned Patient Location: US ?? Current Patient Location: US ?? Accession/Order Number: [id number] ?? Exam Date: 12/26/2023 ??12:42 ?Report Date: 12/26/2023 ??13:44 ? At the request of: ?? WON ??MARYBETH ? Procedure: ??US OB transvaginal ? EXAMINATION: US OB transvaginal ? HISTORY: missed menses N92.6 ? COMPARISON: 12/13/2023 ? FINDINGS: ? Transvaginal images ? Godoy intrauterine gestation ?? Gestational sac: 3.48 cm, 8 weeks 4 days ?? CRL: 2.44 cm, 9 weeks 1 day ?? Yolk sac: 2.7 mm ?? Heart rate: 182 beats minute ? Cervix: 3.6 cm in length, closed. ? The uterus is normal, anteverted ? The right ovary measures 3.3 x 2.8 x 3.6 cm. Area of anechoic echogenicity ?? likely corpus luteal cyst. ? The left ovary is normal measuring 1.6 x 1.1 x 2.2 cm ? Clinical age: 9 weeks 4 days ?? Clinical SINA: 07/26/2024 ? Ultrasound age: 9 weeks 1 day ?? Ultrasound SINA: 07/29/2024 ? US/US OB transvaginal ?? IMPRESSION: ? Viable godoy intrauterine gestation measuring 9 weeks 1 day ? Electronically authenticated by: DARLINE ??WEST ?? Date: 12/26/2023 ??13:44 ? Dictated By: ?Darline Espitia M.D. ? Signed By: ?12/26/23 1347 ? DD/ 1344 ? TD/TT: ? Assurance Senior: Procedure Note Radiology, Radiologist, - 12/26/2023 [place] [address] Ultrasound Report Signed Patient: GOLDIE VERMAMR#: [id number] : 1995Acct:[id number] Age/Sex: 28 / FADM Date: 12/26/23 Loc: US Attending Dr: Won Rueda D.O. Ordering Physician: Won Rueda D.O. Date of Service: 12/26/23 Procedure(s): US OB transvaginal Accession Number(s): [id number] cc: Won Rueda D.O.; JASPAL MAXWELL [place] [address] Patient Name: GOLDIE VERMA MRN: [id number] date: 1995 Sex: F Assigned Patient Location: US Current Patient Location: US Accession/Order Number: [id number] Exam Date: 12/26/2023 12:42 Report Date: 12/26/2023 [...] Darline Espitia M.D. Signed By:12/26/23 1347 DD/ 134 TD/TT: Assurance Senior: Authorizing ProviderResult TypeResult StatusCorey Marybeth DOCLINISYNC IMAGINGFinal Result documented in this encounter Visit Diagnoses Not on filedocumented in this encounter Care Teams Team MemberRelationshipSpecialtyStart DateEnd Date Jaspal Maxwell NP [address] [place] [address] [place] [address] PCP - GeneralFamily Medicine11/11/23 Won Rueda DO [address] [place] [address] [place] [address] PCP - [facility]FS [facility]///documented as of this encounter
--- OUTSIDE RECORDS SUMMARY | 2025-06-29 11:31 | XMS_ITS | Clinical Summary ---
Author Organization [employer] [facility] Address [id number] [place] [address] Care Team Providers Care Rotary Drill Operator Name Role Phone Unavailable Primary Care Provider Unavailabl e Allergies Active AllergyReactionsCriticalityNoted DateCommentsGalcanezumab-Gnlm01/11/2024 Lavender Oil01/11/20243053Imodblvw77/24/2024 Medications MedicationSigDispense QuantityRefillsLast FilledStart DateEnd DateStatus gk351-ndjs-qrnsi acid ( 19) 29 mg iron- 1 mg tablet,chewable Chew 1 tablet and swallow in the morning.Active magnesium (MAGTAB) 84 mg tablet extended release CR tablet Take 1 tablet (84 mg total) by mouth in the morning.Active ondansetron (ZOFRAN) 4 mg/5 mL solution Take by mouth once.Active omeprazole (PriLOSEC) 20 mg capsule Take 1 capsule (20 mg total) by mouth in the morning.Active aspirin 81 mg Indications:18 weeks gestation of ,History of placenta abruption, History of delivery, currently Take 1 tablet once a day until 36 weeks gestation 30 tablet 6002/25/2024ctive Active Problems ProblemNoted DateDiagnosed DateEchogenic intracardiac focus of fetus on /08/2024rior with placenta abruption in first trimester, nlwpwaybym74/03/2024TSD (post-traumatic stress disorder)OCD (obsessive compulsive disorder)History of delivery, currently Endometriosis Family History Medical HistoryRelationNameCommentsHypertensionBrotherDiabetesMaternal GrandfatherHypertensionMaternal GrandfatherCancerPaternal GrandmotherRelation NameStatusCommentsBrotherMaternal GrandfatherPaternal Grandmother Social History Tobacco UseTypesPacks/DayYears UsedDateSmoking Tobacco: NeverSmokeless Tobacco: Never Tobacco Cessation:Counseling Given: Not Answered Alcohol UseStandard Drinks/WeekCommentsNot Currently0 (1 standard drink = 0.6 oz pure alcohol)Hunger ScreeningAnswerDate RecordedWithin the past 12 months we worried whether our food would run out before we got money to buy more.Never True02/25/2024Within the past 12 months the food we bought just didn't last and we didn't have money to get more.Never True02/25/2024CommentsNoSex and Gender InformationValueDate RecordedSex Assigned at BirthNot on fileLegal Sex Wqfhop6201/10/2024 3:34 PM EDTGender IdentityNot on fileSexual OrientationNot on file Last Filed Vital Signs Vital SignReadingTime TakenCommentsBlood Jvkqmjrn17/5007 1:18 PM EDT Kwktj702902/25/2024 1:18 PM EDTTemperature--Respiratory Rate--Oxygen Saturation-- Inhaled Oxygen Concentration--Txxwwd75.9 kg (154 lb 3.2 oz)02/25/2024 1:18 PM TYJFydhoq461.3 cm (5' 11 )02/25/2024 1:18 PM EDTBody Mass Index21.51002/25/2024 1:18 PM EDT Plan of Treatment Health MaintenanceDue DateLast DoneCommentsDepression Xnzltoife84/21/2009 DTaP,Tdap and Td Vaccines (1 - Tdap)11/08/2015Pap Smear2017Adult BMI Xhzlwmuif70/08//03/2024Tobacco Yroptimlw24/08/OVID-19 Vaccine ( - 2024- season)/01/2021, 05/04/2021Influenza Vaccine 04/20/2025 Medical Devices Not on file Insurance
--- OUTSIDE RECORDS SUMMARY | 2025-06-29 11:31 | XMS_ITS | Encounter Summary ---
Author Organization [facility] Address [address] [place] [address] Care Team Providers Care Antitank Assault Gunner Name Role Phone EllyJaspal nicole Fay CHANG Primary Care Provider Won Rueda DO Unavailable Encounter Details DateTypeDepartmentCare Team (Latest Contact Info)Kqhdntkpwpg47/25/2024Clinisync Result Encounter [facility] External Department Unsolicited Won Rueda, DO [address] [facility] [place] [address] Social History Tobacco UseTypesPacks/DayYears UsedDateSmoking Tobacco: Never Assessed CommentsYesSex and Gender InformationValueDate RecordedSex Assigned at BirthNot on fileLegal TbeHufqfw81/15/2023 7:02 PM EDTGender IdentityNot on fileSexual OrientationNot on filedocumented as of this encounter Plan of Treatment Not on file documented as of this encounter Procedures Procedure NamePriorityDate/TimeAssociated DiagnosisCommentsUS OB TRANSVAGINAL 12/13/2023 1:37 PM EDT documented in this encounter Results * US OB TRANSVAGINAL (12/13/2023 1:37 PM EDT)Anatomical RegionLateralityModality OtherSpecimen (Source)Anatomical Location / LateralityCollection Method / VolumeCollection TimeReceived Time12/13/2023 1:37 PM EDT Narrative 12/13/2023 1:40 PM EDT [facility] ?[address] ? [place] [address] ? Ultrasound Report ? Signed ? Patient: BAYRON,Goldie ?MR#: [id number] ?? : 1995 ?Acct:[id number] ?? Age/Sex: 28 / F ?ADM Date: 04/25/24 ?? Loc: [facility] ? Attending Dr: Won Rueda D.O. ? Ordering Physician: Won Rueda D.O. ?? Date of Service: 12/13/23 ?? Procedure(s): US OB transvaginal ?? Accession Number(s): [id number] ? cc: Won Rueda D.O.; JASPAL MAXWELL ? [facility] ? [address] ? [place] [address] ? Patient Name: ?? GOLDIE ??BAYRON ? MRN: [facility]:[id number] ? date: 1995 ?Sex: F ?? Assigned Patient Location: [facility] ?? Current Patient Location: [facility] ?? Accession/Order Number: [id number] ?? Exam Date: 12/13/2023 ??12:25 ?Report Date: 12/13/2023 ??13:37 ? At the request of: ?? WON ??MARYBETH ? Procedure: ??US OB transvaginal ? EXAMINATION: US OB transvaginal ? HISTORY: MISSED MENSES ? COMPARISON: No relevant comparison available. ? FINDINGS: ? GESTATIONAL SAC: Present and normal appearing. ?? YOLK SAC: Present and normal appearing. ?? POLE: Present and normal appearing. ?? CARDIAC: Present. ? UTERUS: Normal size and appearance. ?? OVARIES: Right: Corpus lutein cyst. Left: Not seen. ?? CERVIX: 4.4 cm in length and closed. ?? CUL-DE-SAC: Normal. ?? OTHER: None. ? AGE BY LMP: 7 weeks 5 days ?? SINA BY LMP: 07/26/2024 ?? AGE BY US CRL: 7 weeks 0 days ?? SINA BY US CRL: 07/31/2024 ? US/US OB transvaginal ?? IMPRESSION: ? 1. Single live intrauterine . ? Electronically authenticated by: HARRISON ??BOB ?? Date: 12/13/2023 ??13:37 ? Dictated By: ?Harrison Saxena M.D. ? Signed By: ?12/13/23 1340 ? DD/ 1337 ? TD/TT: ? Asbestos Pipe Supervisor: Procedure Note Radiology, Radiologist, MD - 12/13/2023 [place] [address] Ultrasound Report Signed Patient: Goldie VERMAMR#: [id number] : 1995Acct:[id number] Age/Sex: 28 / FADM Date: 12/13/23 Loc: [facility] Attending Dr: Won Rueda D.O. Ordering Physician: Won Rueda D.O. Date of Service: 12/13/23 Procedure(s): US OB transvaginal Accession Number(s): [id number] cc: Won Rueda D.O.; JASPAL MAXWELL [place] [address] Patient Name: GOLDIE VERMA MRN: [facility]:[id number] date: 1995 Sex: F Assigned Patient Location: [facility] Current Patient Location: [facility] Accession/Order Number: [id number] Exam Date: 12/13/2023 12:25 Report Date: 12/13/2023 [...] Dictated By: Harrison Saxena M.D. Signed By:12/13/23 1346 DD/ 1337 TD/TT: Asbestos Pipe Supervisor: Authorizing ProviderResult TypeResult StatusCorey Marybeth DOCLINISYNC IMAGINGFinal Result documented in this encounter Visit Diagnoses Not on filedocumented in this encounter Care Teams Team MemberRelationshipSpecialtyStart DateEnd Date Jaspal Maxwell NP [address] [place] [address] PCP - GeneralFamily Medicine11/11/23 Won Rueda DO [address] [place] [address] PCP - FFS [facility]///documented as of this encounter
--- OUTSIDE RECORDS SUMMARY | 2025-06-29 11:31 | XMS_ITS | Encounter Summary ---
Author Organization [facility] Address [address] [place] [address] Care Team Providers Care Energy Professional Name Role Phone SteveLucila perdomo Fay CHANG Primary Care Provider Won Rueda DO Unavailable Encounter Details DateTypeDepartmentCare Team (Latest Contact Info)Gxkzbhquptm66/18/2024Clinisync Result Encounter [facility]S External Department Unsolicited Won Rueda, DO [address] [facility] [place] [address] Social History Tobacco UseTypesPacks/DayYears UsedDateSmoking Tobacco: Never Assessed CommentsYesSex and Gender InformationValueDate RecordedSex Assigned at BirthNot on fileLegal LgxDsbmkp85/15/2023 7:02 PM EDTGender IdentityNot on fileSexual OrientationNot on filedocumented as of this encounter Plan of Treatment Not on file documented as of this encounter Procedures Procedure NamePriorityDate/TimeAssociated DiagnosisCommentsUS OB BPP W NON-BSRBDU3806/06/2024 12:03 PM EDT documented in this encounter Results * US OB BPP W NON-STRESS (06/06/2024 12:03 PM EDT)Anatomical Region LateralityModalityOtherSpecimen (Source)Anatomical Location / Laterality Collection Method / VolumeCollection TimeReceived Time06/06/2024 12:03 PM EDT Narrative 06/06/2024 12:06 PM EDT [facility] ?[address] ? [place] [address] ? Ultrasound Report ? Signed ? Patient: BAYRON,GOLDIE ?MR#: [id number] ?? : 1995 ?Acct:[id number] ?? Age/Sex: 28 / F ?ADM Date: 10/18/24 ?? Loc: [facility] ??250-1 ? Attending Dr: Won Rueda D.O. ? Ordering Physician: Won Rueda D.O. ?? Date of Service: 06/06/24 ?? Procedure(s): US OB BPP w non-stress ?? Accession Number(s): [id number] ? cc: Won Rueda D.O.; LUCILA MAXWELL ? [facility] ? [address] ? [place] [address] ? Patient Name: ?? GOLDEI ??BAYRON ? MRN: [facility]:[id number] ? date: 1995 ?Sex: F ?? Assigned Patient Location: [facility] ?? Current Patient Location: [facility] ?? Accession/Order Number: [id number] ?? Exam Date: 06/06/2024 ??11:15 ?Report Date: 06/06/2024 ??12:03 ? At the request of: ?? WON ??MARYBETH ? Procedure: ??US OB BPP w non-stress ? EXAMINATION: US OB BPP w non-stress ? HISTORY: H/O DELIVERY O09.891 ? COMPARISON: No relevant comparison available. ? TECHNIQUE: Ultrasound biophysical profile was performed in the radiology ?? department. non-reactive stress testing was performed by nursing staff ?? in ?? the birthing center. ? FINDINGS: ?? BREATHING MOVEMENTS: 2 ?? GROSS BODY MOVEMENTS: 2 ?? TONE: 2 ? QUALITATIVE AMNIOTIC FLUID VOLUME: 2 ?? PRESENTATION: CEPHALIC ?? HEART RATE: 144.39 bpm ?? AMNIOTIC FLUID VOLUME: 16.1 cm ?? GESTATIONAL AGE: 32 weeks 6 days ? US/US OB BPP w non-stress ?? IMPRESSION: ? Total biophysical profile score: 8 ? Electronically authenticated by: DARLINE ??WEST ?? Date: 06/06/2024 ??12:03 ? Dictated By: ?Darline Espitia M.D. ? Signed By: ?06/06/24 1206 ? DD/ 1203 ? TD/TT: ? It Consulting Manager: Procedure Note Radiology, Radiologist, MD - 06/06/2024 [place] [address] Ultrasound Report Signed Patient: GOLDIE VERMAMR#: [id number] : 1995Acct:[id number] Age/Sex: 28 / FADM Date: 06/06/24 Loc: [facility] 250-[address]: Won Rueda D.O. Ordering Physician: Won Rueda D.O. Date of Service: 06/06/24 Procedure(s): US OB BPP w non-stress Accession Number(s): [id number] cc: Won Rueda D.O.; LUCILA MAXWELL [place] [address] Patient Name: GOLDIE VERMA MRN: [facility]:[id number] date: 1995 Sex: F Assigned Patient Location: [facility] Current Patient Location: [facility] Accession/Order Number: [id number] Exam Date: 06/06/2024 11:15 Report Date: 06/06/2024 [...] 12:03 Dictated By: Darline Espitia M.D. Signed By:06/06/241205 DD/ 02 TD/TT: It Consulting Manager: Authorizing ProviderResult TypeResult StatusCorey Marybeth DOCLINISYNC IMAGINGFinal Result documented in this encounter Visit Diagnoses Not on filedocumented in this encounter Care Teams Team MemberRelationshipSpecialtyStart DateEnd Date Lucila Maxwell NP [facility] [place], [place] [address] PCP - GeneralFamily Medicine11/11/23 Won Rueda DO [address] [place] [address] [place], [place] [address] PCP - FFS [facility]/documented as of this encounter
--- OUTSIDE RECORDS SUMMARY | 2025-06-29 11:31 | XMS_ITS | Encounter Summary ---
Author Organization [facility] Address [address] [place] [address] Care Team Providers Care Environmental Program Manager Name Role Phone EllyJaspal nicole Fay CHANG Primary Care Provider Won Rueda DO Unavailable Encounter Details DateTypeDepartmentCare Team (Latest Contact Info)Abdhurthzxz00/25/2024Clinisync Result Encounter [facility]S External Department Unsolicited Won Rueda, DO [address] [facility] [facility] [place] [address] Social History Tobacco UseTypesPacks/DayYears UsedDateSmoking Tobacco: Never Assessed CommentsYesSex and Gender InformationValueDate RecordedSex Assigned at BirthNot on fileLegal RtiWxhpwr44/15/2023 7:02 PM EDTGender IdentityNot on fileSexual OrientationNot on filedocumented as of this encounter Plan of Treatment Not on file documented as of this encounter Procedures Procedure NamePriorityDate/TimeAssociated DiagnosisCommentsUS OB CERVICAL LENGTH 03/13/2024 11:29 AM EDT documented in this encounter Results * US OB CERVICAL LENGTH (03/13/2024 11:29 AM EDT)Anatomical RegionLaterality ModalityOtherSpecimen (Source)Anatomical Location / LateralityCollection Method / VolumeCollection TimeReceived Time03/13/2024 11:29 AM EDT Narrative 03/13/2024 11:31 AM EDT [facility] ?[address] ? [place] [address] ? Ultrasound Report ? Signed ? Patient: BAYRON,GOLDIE ?MR#: [id number] ?? : 1995 ?Acct:[id number] ?? Age/Sex: 28 / F ?ADM Date: 07/25/24 ?? Loc: [facility] ? Attending Dr: Won Rueda D.O. ? Ordering Physician: Won Rueda D.O. ?? Date of Service: 03/13/24 ?? Procedure(s): US OB cervical length ?? Accession Number(s): [id number] ? cc: Won Rueda D.O.; JASPAL MAXWELL ? [facility] ? [address] ? [place] [address] ? Patient Name: ?? GOLDIE ??BAYRON ? MRN: [facility]:[id number] ? date: 1995 ?Sex: F ?? Assigned Patient Location: [facility] ?? Current Patient Location: [facility] ?? Accession/Order Number: [id number] ?? Exam Date: 03/13/2024 ??10:53 ?Report Date: 03/13/2024 ??11:29 ? At the request of: ?? WON ??MARYBETH ? Procedure: ??US OB cervical length ? EXAMINATION: US OB cervical length ? HISTORY: HISTORY OF PRE-TERM DELIVERY ? COMPARISON: 12/26/2023 ? FINDINGS: ? position: Cephalic ? Cervix: 4.5 cm closed ? Clinical age: 20 weeks 5 days ? US/US OB cervical length ?? IMPRESSION: ? Closed cervix measuring 4.5 cm in length ? Electronically authenticated by: DARLINE ??NUPUR ?? Date: 03/13/2024 ??11:29 ? Dictated By: ?Darline Espitia M.D. ? Signed By: ?03/13/24 1131 ? DD/ 1129 ? TD/TT: ? Mechanical Commissioning Engineer: Procedure Note Radiology, Radiologist, - 03/13/2024 [place] [address] Ultrasound Report Signed Patient: GOLDIE VERMAMR#: [id number] : 1995Acct:[id number] Age/Sex: 28 / FADM Date: 03/13/24 Loc: [facility] Attending Dr: Won Rueda D.O. Ordering Physician: Won Rueda D.O. Date of Service: 03/13/24 Procedure(s): US OB cervical length Accession Number(s): [id number] cc: Won Rueda D.O.; JASPAL MAXWELL [facility] [address] [place], [place] [address] Patient Name: GOLDIE VERMA MRN: [facility]:[id number] date: 1995 Sex: F Assigned Patient Location: [facility] Current Patient Location: [facility] Accession/Order Number: [id number] Exam Date: 03/13/2024 10:53 Report Date: 03/13/2024 [...] M.D. Signed By:03/13/24 1131 DD/ 1129 TD/TT: Mechanical Commissioning Engineer: Authorizing ProviderResult TypeResult StatusCorey Marybeth DOCLINISYNC IMAGINGFinal Result documented in this encounter Visit Diagnoses Not on filedocumented in this encounter Care Teams Team MemberRelationshipSpecialtyStart DateEnd Date Jaspal Maxwell NP [address] [facility] [place] [address] PCP - GeneralFamily Medicine11/11/23 Won Rueda DO [address] [place] [address] [place] [address] PCP - FFS [facility]/documented as of this encounter
--- OUTSIDE RECORDS SUMMARY | 2025-06-29 11:31 | XMS_ITS | Encounter Summary ---
Author Organization [facility] Address [address] [place] [address] Care Team Providers Care Mortgage Specialist Name Role Phone EllyJaspal nicole Fay CHANG Primary Care Provider Won Rueda DO Unavailable Encounter Details DateTypeDepartmentCare Team (Latest Contact Info)Gvpwplbprcp92/13/2024Clinisync Result Encounter [facility]S External Department Unsolicited Won Rueda, DO [address] [facility] [place] [address] Social History Tobacco UseTypesPacks/DayYears UsedDateSmoking Tobacco: Never Assessed CommentsNoSex and Gender InformationValueDate RecordedSex Assigned at BirthNot on fileLegal OsuIqvinp91/15/2023 7:02 PM EDTGender IdentityNot on fileSexual OrientationNot on filedocumented as of this encounter Plan of Treatment Not on file documented as of this encounter Procedures Procedure NamePriorityDate/TimeAssociated DiagnosisCommentsUS PELVIS IZLRZZCIAVPT31/13/2024 3:45 PM EST documented in this encounter Results * US PELVIS TRANSVAGINAL (08/01/2024 3:45 PM EST)Anatomical RegionLaterality ModalityOtherSpecimen (Source)Anatomical Location / LateralityCollection Method / VolumeCollection TimeReceived Time08/01/2024 3:45 PM EST Narrative 08/01/2024 3:48 PM EST [facility] ?[address] ? [place] [address] ? Ultrasound Report ? Signed ? Patient: BAYRON,GOLDIE ?MR#: [id number] ?? : 1995 ?Acct:[id number] ?? Age/Sex: 28 / F ?ADM Date: 12/13/24 ?? Loc: US ? Attending Dr: Won Rueda D.O. ? Ordering Physician: Won Rueda D.O. ?? Date of Service: 08/01/24 ?? Procedure(s): US pelvis transvaginal ?? Accession Number(s): [id number] ? cc: Won Rueda D.O.; JASPAL MAXWELL ? [facility] ? [address] ? [place] [address] ? Patient Name: ?? GOLDIE ??BAYRON ? MRN: [facility]:[id number] ? date: 1995 ?Sex: F ?? Assigned Patient Location: ?? Current Patient Location: ?? Accession/Order Number: [id number] ?? Exam Date: 08/01/2024 ??11:32 ?Report Date: 08/01/2024 ??15:45 ? At the request of: ?? WON ??MARYBETH ? Procedure: ??US pelvis transvaginal ? EXAMINATION: US pelvis transvaginal ? HISTORY: PELVIC PAIN, ASSESS FOR RETAINED PRODUCT AFTER DELIVERY ? COMPARISON: No relevant comparison available. ? FINDINGS: ? The uterus is prominent in size, normal contour and echotexture measuring 9.0 ?? x ?? 7.3 x 6.4 cm consistent with the patient's state. The uterus is ?? retroverted. No focal myometrial mass ? The endometrium measures 4 mm, normal. No hypervascularity ? The right ovary is normal measuring 5 x 2.0 x 2.3 cm. Normal color Doppler ?? flow ? The left ovary is normal measuring 3.5 x 1.5 x 1.5 cm. Normal color and ?? Doppler ?? flow ?? No free fluid ? US/US pelvis transvaginal ?? IMPRESSION: ? No definite retained products of conception ? Electronically authenticated by: DARLINE ??WEST ?? Date: 08/01/2024 ??15:45 ? Dictated By: ?Darline Espitia M.D. ? Signed By: ?08/01/24 1548 ? DD/ 1545 ? TD/TT: ? Motor Inspection Mechanic: Procedure Note Radiology, Radiologist, MD - 08/01/2024 [place] [address] Ultrasound Report Signed Patient: GOLDIE VERMAMR#: [id number] : 1995Acct:[id number] Age/Sex: 28 / FADM Date: 08/01/24 Loc: US Attending Dr: Won Rueda D.O. Ordering Physician: Won Rueda D.O. Date of Service: 08/01/24 Procedure(s): US pelvis transvaginal Accession Number(s): [id number] cc: Won Rueda D.O.; JASPAL MAXWELL [place] [address] Patient Name: GOLDIE VERMA MRN: [facility]:[id number] date: 1995 Sex: F Assigned Patient Location: US Current Patient Location: US Accession/Order Number: [id number] Exam Date: 08/01/2024 11:32 Report Date: 08/01/2024 [...] M.D. Signed By:08/01/24 1548 DD/ 1545 TD/TT: Motor Inspection Mechanic: Authorizing ProviderResult TypeResult StatusCorey Marybeth DOCLINISYNC IMAGINGFinal Result documented in this encounter Visit Diagnoses Not on filedocumented in this encounter Care Teams Team MemberRelationshipSpecialtyStart DateEnd Date Jaspal Maxwell NP [facility]5 [facility] [address] PCP - GeneralFamily Medicine11/11/23 Won Rueda DO [address] [place] [address] [address] [place], [place] [address] PCP - FFS [facility]///documented as of this encounter
--- OUTSIDE RECORDS SUMMARY | 2025-06-29 11:31 | XMS_ITS | Encounter Summary ---
Author Organization [facility] Address [address] [place] [address] Care Team Providers Care Chicken Sexer Name Role Phone SteveLucila perdomo Fay CHANG Primary Care Provider Won Rueda DO Unavailable Encounter Details DateTypeDepartmentCare Team (Latest Contact Info)Zbehwrtisko75/11/2024Clinisync Result Encounter [facility]S External Department Unsolicited Won Rueda, DO [address] [facility] [place] [address] Social History Tobacco UseTypesPacks/DayYears UsedDateSmoking Tobacco: Never Assessed CommentsYesSex and Gender InformationValueDate RecordedSex Assigned at BirthNot on fileLegal WhcYysxzo65/15/2023 7:02 PM EDTGender IdentityNot on fileSexual OrientationNot on filedocumented as of this encounter Plan of Treatment Not on file documented as of this encounter Procedures Procedure NamePriorityDate/TimeAssociated DiagnosisCommentsUS OB GROWTH 06/30/2024 10:15 AM EST documented in this encounter Results * US OB GROWTH (06/30/2024 10:15 AM EST)Anatomical RegionLateralityModalityOther Specimen (Source)Anatomical Location / LateralityCollection Method / Volume Collection TimeReceived Time06/30/2024 10:15 AM EST Narrative 06/30/2024 10:17 AM EST [facility] ?[address] ? [place] [address] ? Ultrasound Report ? Signed ? Patient: MITCHELL,GOLDIE ?MR#: [id number] ?? : 1995 ?Acct:[id number] ?? Age/Sex: 28 / F ?ADM Date: 11/11/24 ?? Loc: [facility] ? Attending Dr: Won Marybeth D.O. ? Ordering Physician: Won Rueda D.O. ?? Date of Service: 06/30/24 ?? Procedure(s): US OB growth ?? Accession Number(s): [id number] ? cc: Won Rueda D.O.; LUCILA MAXWELL ? [facility] ? [address] ? [place] [address] ? Patient Name: ?? GOLDIE ??MITCHELL ? MRN: [facility]:[id number] ? date: 1995 ?Sex: F ?? Assigned Patient Location: [facility] ?? Current Patient Location: [facility] ?? Accession/Order Number: [id number] ?? Exam Date: 06/30/2024 ??09:50 ?Report Date: 06/30/2024 ??10:15 ? At the request of: ?? WON ??MARYBETH ? Procedure: ??US OB growth ? EXAMINATION: US OB growth ? HISTORY: Elevated glucose tolerance test R73.09 ? COMPARISON: No relevant comparison available. ? FINDINGS: ? Heart Rate: 132 bpm ?? Amniotic Fluid Volume: 13.5 cm, largest fluid pocket 4.3 cm ?? Number: 1 ?? Position: CEPHALIC ? BIOMETRY: ?? BPD: 8.56 cm; 34 weeks 4 days; 14.10 % ?? HC: 32.35 cm; 36 weeks 4 days; 27.30 % ?? AC: 31.22 cm; 35 weeks 1 day; 28.50 % ?? FL: 7.28 cm; 37 weeks 2 days; 71.80 % ?? EFW: 2516.25 g; 38.90 %, 6 lbs. 2 oz. ?? FL/AC: 23.32 ?? FL/BPD: 85.05 ?? HC/AC: 1.04 ? GESTATIONAL AGE: ?? Age by EDC: 36 weeks 2 days ?? SINA by EDC: 2024-07-26 ?? Age by US: 36 weeks 0 days ?? SINA by US: 2024-07-28 ? US/US OB growth ?? IMPRESSION: ? Normal interval growth ? Electronically authenticated by: DARLINE ??WEST ?? Date: 06/30/2024 ??10:15 ? Dictated By: ?Darline Espitia M.D. ? Signed By: ?11/11/24 1017 ? DD/ 1015 ? TD/TT: ? Edger Machine Setter: Procedure Note Radiology, Radiologist, - 06/30/2024 [place] [address] Ultrasound Report Signed Patient: GOLDIE VERMAMR#: [id number] : 1995Acct:[id number] Age/Sex: 28 / FADM Date: 06/30/24 Loc: [facility]OMS Attending Dr: Won Rueda D.O. Ordering Physician: Won Rueda D.O. Date of Service: 06/30/24 Procedure(s): US OB growth Accession Number(s): [id number] cc: Won Rueda D.O.; LUCILA MAXWELL [place] [address] Patient Name: GOLDIE VERMA MRN: [id number] date: 1995 Sex: F Assigned Patient Location: [facility] Current Patient Location: [facility] Accession/Order Number: [id number] Exam Date: 06/30/2024 09:50 Report Date: 06/30/2024 [...] Age by US: 36 weeks 0 days SNIA by US: 2024-07-28 US/US OB growth IMPRESSION: Normal interval growth Electronically authenticated by: DARLINE ESPITIA Date: 06/30/2024 10:15 Dictated By: Darline Espitia M.D. Signed By:06/30/24 1017 DD/ 1015 TD/TT: Edger Machine Setter: Authorizing ProviderResult TypeResult StatusCorey Marybeth DOCLINISYNC IMAGINGFinal Result documented in this encounter Visit Diagnoses Not on filedocumented in this encounter Care Teams Team MemberRelationshipSpecialtyStart DateEnd Date Lucila Maxwell NP [address] [place] [address] [place] [address] PCP - GeneralFamily Medicine11/11/23 Won Rueda DO [address] [place] [address] [address] [place], [place] [address] PCP - FFS [facility]///documented as of this encounter
--- OUTSIDE RECORDS SUMMARY | 2025-06-29 11:31 | XMS_ITS | Encounter Summary ---
Author Organization [facility] Address [address] [place] [address] Care Team Providers Care Manager Of Medical Name Role Phone EllyJaspal nicole Fay CHANG Primary Care Provider Won Rueda DO Unavailable Encounter Details DateTypeDepartmentCare Team (Latest Contact Info)Llsqullhulf83/18/2024Clinisync Result Encounter [facility]S External Department Unsolicited Won Rueda, DO [address] [facility] [place] [address] Social History Tobacco UseTypesPacks/DayYears UsedDateSmoking Tobacco: Never Assessed CommentsYesSex and Gender InformationValueDate RecordedSex Assigned at BirthNot on fileLegal HpyBgxcvf90/15/2023 7:02 PM EDTGender IdentityNot on fileSexual OrientationNot on filedocumented as of this encounter Plan of Treatment Not on file documented as of this encounter Procedures Procedure NamePriorityDate/TimeAssociated DiagnosisCommentsUS OB CERVICAL LENGTH 06/06/2024 2:47 PM EDT documented in this encounter Results * US OB CERVICAL LENGTH (06/06/2024 2:47 PM EDT)Anatomical RegionLaterality ModalityOtherSpecimen (Source)Anatomical Location / LateralityCollection Method / VolumeCollection TimeReceived Time06/06/2024 2:47 PM EDT Narrative 06/06/2024 2:49 PM EDT [facility] ?[address] ? [place] [address] ? Ultrasound Report ? Signed ? Patient: BAYRON,GOLDIE ?MR#: [id number] ?? : 1995 ?Acct:[id number] ?? Age/Sex: 28 / F ?ADM Date: 10/18/24 ?? Loc: [facility]BC ??250-1 ? Attending Dr: Won Rueda D.O. ? Ordering Physician: Won Rueda D.O. ?? Date of Service: 06/06/24 ?? Procedure(s): US OB cervical length ?? Accession Number(s): [id number] ? cc: Won Rueda D.O.; JASPAL MAXWELL ? [facility] ? [address] ? [place] [address] ? Patient Name: ?? GOLDIE ??BAYRON ? MRN: [facility]:[id number] ? date: 1995 ?Sex: F ?? Assigned Patient Location: [facility]BC ?? Current Patient Location: [facility] ?? Accession/Order Number: [id number] ?? Exam Date: 06/06/2024 ??12:58 ?Report Date: 06/06/2024 ??14:47 ? At the request of: ?? WON ??MARYBETH ? Procedure: ??US OB cervical length ? EXAMINATION: US OB cervical length ? HISTORY: pre-term contractions ? COMPARISON: No relevant comparison available. ? FINDINGS: ? position: Cephalic presentation, longitudinal lie ? Heart rate: 130 beats minute ? Cervix: 3.5 cm, closed ? Clinical age: 32 weeks 6 days ?? Clinical SINA: 07/26/2024 ? US/US OB cervical length ?? IMPRESSION: ? Closed cervix measuring 3.5 cm in length ? Electronically authenticated by: DARLINE ??NUPUR ?? Date: 06/06/2024 ??14:47 ? Dictated By: ?Darline Espitia M.D. ? Signed By: ?06/06/24 1449 ? DD/ ? TD/TT: ? Asbestos Handler: Procedure Note Radiology, Radiologist, MD - 06/06/2024 [place] [address] Ultrasound Report Signed Patient: GOLDIE VERMA#: [id number] : 1995Acct:[id number] Age/Sex: 28 / FADM Date: 06/06/24 Loc: [facility] 250-[address]: Won Rueda D.O. Ordering Physician: Won Rueda D.O. Date of Service: 06/06/24 Procedure(s): US OB cervical length Accession Number(s): [id number] cc: Won Rueda D.O.; JASPAL MAXWELL [facility] [address] [place], [place] [address] Patient Name: GOLDIE VERMA MRN: [facility]:[id number] date: 1995 Sex: F Assigned Patient Location: [facility] Current Patient Location: [facility] Accession/Order Number: [id number] Exam Date: 06/06/2024 12:58 Report Date: 06/06/2024 [...] 14:47 Dictated By: Darline Espitia M.D. Signed By:06/06/241448 DD/ 46 TD/TT: Asbestos Handler: Authorizing ProviderResult TypeResult StatusCorey Marybeth DOCLINISYNC IMAGINGFinal Result documented in this encounter Visit Diagnoses Not on filedocumented in this encounter Care Teams Team MemberRelationshipSpecialtyStart DateEnd Date Jaspal Maxwell NP [address] [facility] [address] PCP - GeneralFamily Medicine11/11/23 Won Rueda DO [address] [place] [address] [place] [address] PCP - FFS [facility]/1/256//25documented as of this encounter
--- OUTSIDE RECORDS SUMMARY | 2025-06-29 11:31 | XMS_ITS | Clinical Summary ---
Author Organization [facility] Address [address] [place] [address] Care Team Providers Care Optometry Assistant Name Role Phone Lucila Arnett BOW MAKING MACHINE OPERATOR Unavailable [phone] Social History Tobacco UseTypesPacks/DayYears UsedDateSmoking Tobacco: Never Assessed CommentsUnknownSex and Gender InformationValueDate RecordedSex Assigned at Not on fileLegal TspMmzusq23/20/2025 11:37 AM EDTGender IdentityNot on file Sexual OrientationNot on file Plan of Treatment Not on file Insurance Care Teams Team MemberRelationshipSpecialtyStart DateEnd Date Lucila Arnett NP [address] [place] [address] ReferringNurse Practitioner01/06/25
--- OUTSIDE RECORDS SUMMARY | 2025-06-29 11:32 | XMS_ITS | Encounter Summary ---
Author Organization [facility] Address [address] [place] [address] Care Team Providers Care Tourist Guide Name Role Phone EllyJaspal nicole Fay CHANG Primary Care Provider Won Rueda DO Unavailable Encounter Details DateTypeDepartmentCare Team (Latest Contact Info)Rdnnstybphw96/19/2024Clinisync Result Encounter [facility] External Department Unsolicited Won Rueda, DO [address] [place] [address] Social History Tobacco UseTypesPacks/DayYears UsedDateSmoking Tobacco: Never Assessed CommentsYesSex and Gender InformationValueDate RecordedSex Assigned at BirthNot on fileLegal TpuKtnepw46/15/2023 7:02 PM EDTGender IdentityNot on fileSexual OrientationNot on filedocumented as of this encounter Plan of Treatment Not on file documented as of this encounter Procedures Procedure NamePriorityDate/TimeAssociated DiagnosisCommentsUS OB GROWTH 05/08/2024 12:30 PM EDT documented in this encounter Results * US OB GROWTH (05/08/2024 12:30 PM EDT)Anatomical RegionLateralityModalityOther Specimen (Source)Anatomical Location / LateralityCollection Method / Volume Collection TimeReceived Time05/08/2024 12:30 PM EDT Narrative 05/08/2024 12:33 PM EDT [facility] ?[address] ? [place] [address] ? Ultrasound Report ? Signed ? Patient: BAYRON,GOLDIE ?MR#: [id number] ?? : 1995 ?Acct:[id number] ?? Age/Sex: 28 / F ?ADM Date: 09/19/24 ?? Loc: [facility] ? Attending Dr: Won Rueda D.O. ? Ordering Physician: Won Rueda D.O. ?? Date of Service: 05/08/24 ?? Procedure(s): US OB growth ?? Accession Number(s): [id number] ? cc: Won Rueda D.O.; JASPAL MAXWELL ? [facility] ? [address] ? [place] [address] ? Patient Name: ?? GOLDIE ??BAYRON ? MRN: [facility]:[id number] ? date: 1995 ?Sex: F ?? Assigned Patient Location: [facility] ?? Current Patient Location: [facility] ?? Accession/Order Number: [id number] ?? Exam Date: 05/08/2024 ??10:32 ?Report Date: 05/08/2024 ??12:30 ? At the request of: ?? WON ??MARYBETH ? Procedure: ??US OB growth ? EXAMINATION: US OB growth ? HISTORY: GESTATIONAL DIABETES ? COMPARISON: No relevant comparison available. ? FINDINGS: ? Heart Rate: 144 bpm ?? Amniotic Fluid Volume: 11.8 cm, largest fluid pocket 4.2 cm ?? Number: 1 ?? Position: Cephalic presentation, longitudinal lie ? BIOMETRY: ?? BPD: 6.97 cm; 28 weeks 0 days; 17.70 % ?? HC: 25.63 cm; 27 weeks 6 days; 4.90 % ?? AC: 24.10 cm; 28 weeks 3 days; 32.70 % ?? FL: 5.64 cm; 29 weeks 4 days; 62.10 % ?? EFW: 1180.19 g; 36.80 %, 2 lbs. 13 oz. ?? FL/AC: 23.40 ?? FL/BPD: 80.92 ?? HC/AC: 1.06 ? GESTATIONAL AGE: ?? Age by EDC: 28 weeks 5 days ?? SINA by EDC: 2024-07-26 ?? Age by US: 28 weeks 3 days ?? SINA by US: 2024-07-28 ? US/US OB growth ?? IMPRESSION: ? Head circumference at the 5th percentile, otherwise normal interval growth ? Electronically authenticated by: DARLINE ??WEST ?? Date: 05/08/2024 ??12:30 ? Dictated By: ?Darline Espitia M.D. ? Signed By: ?05/08/24 1233 ? DD/ 1230 ? TD/TT: ? Technical Support Associate: Procedure Note Radiology, Radiologist, - 05/08/2024 [place] [address] Ultrasound Report Signed Patient: GOLDIE EVRMAMR#: [id number] : 1995Acct:[id number] Age/Sex: 28 / FADM Date: 05/08/24 Loc: [facility] Attending Dr: Won Rueda D.O. Ordering Physician: Won Rueda D.O. Date of Service: 05/08/24 Procedure(s): US OB growth Accession Number(s): [id number] cc: Won Rueda D.O.; JASPAL MAXWELL [place] [id number] Patient Name: GOLDIE VERMA MRN: [facility]:[id number] date: 1995 Sex: F Assigned Patient Location: [facility] Current Patient Location: [facility] Accession/Order Number: [id number] Exam Date: 05/08/2024 10:32 Report Date: 05/08/2024 [...] normal interval growth Electronically authenticated by: DARLINE EPSITIA Date: 05/08/2024 12:30 Dictated By: Darline Espitia M.D. Signed By:05/08/24 1233 DD/ 1230 TD/TT: Technical Support Associate: Authorizing ProviderResult TypeResult StatusCorey Marybeth DOCLINISYNC IMAGINGFinal Result documented in this encounter Visit Diagnoses Not on filedocumented in this encounter Care Teams Team MemberRelationshipSpecialtyStart DateEnd Date Jaspal Maxwell NP [address] [place] [address] [place] [address] PCP - GeneralFamily Medicine11/11/23 Won Rueda DO [address] [place] [address] [place] [address] PCP - [facility]FS [facility]/documented as of this encounter
--- OUTSIDE RECORDS SUMMARY | 2025-06-29 11:32 | XMS_ITS | Encounter Summary ---
Author Organization [facility] Address [address] [place] [address] Care Team Providers Care Nephrology Social Worker Name Role Phone Lucila Arnett NP Primary Care Provider Encounter Details DateTypeDepartmentCare Team (Latest Contact Info)Rtefnkciytz53/03/2025Bamboo flowsheet [facility] [place] [facility] [address] [place] [address] Moi Rueda DO [address], [place] [address] Social History Tobacco UseTypesPacks/DayYears UsedDateSmoking Tobacco: NeverSmokeless Tobacco: NeverCommentsUnknownSex and Gender InformationValueDate RecordedSex Assigned at BirthNot on fileLegal YwgBmsnel74/15/2023 7:02 PM EDTGender Identity Not on fileSexual OrientationNot on filedocumented as of this encounter Plan of Treatment Not on file documented as of this encounter Visit Diagnoses Not on filedocumented in this encounter Care Teams Team MemberRelationshipSpecialtyStart DateEnd Date Lucila Arnett NP [address] [place] [address] PCP - GeneralFamily Medicine11/11/23documented as of this encounter
--- OUTSIDE RECORDS SUMMARY | 2025-06-29 11:32 | XMS_ITS | Encounter Summary ---
Author Organization [facility] Address [address] [place] [address] Care Team Providers Care Prison Teacher Name Role Phone SteveLucila perdomo Fay CHANG Primary Care Provider Won Rueda DO Unavailable Encounter Details DateTypeDepartmentCare Team (Latest Contact Info)Pzstrrvomhw09/08/2024Clinisync Result Encounter [facility] External Department Unsolicited Won Rueda, DO [address] [facility] [address] Social History Tobacco UseTypesPacks/DayYears UsedDateSmoking Tobacco: Never Assessed CommentsYesSex and Gender InformationValueDate RecordedSex Assigned at BirthNot on fileLegal FbaUkbxir31/15/2023 7:02 PM EDTGender IdentityNot on fileSexual OrientationNot on filedocumented as of this encounter Plan of Treatment Not on file documented as of this encounter Procedures Procedure NamePriorityDate/TimeAssociated DiagnosisCommentsUS OB BPP W NON-FXJMXP4906/27/2024 11:49 AM EST documented in this encounter Results * US OB BPP W NON-STRESS (06/27/2024 11:49 AM EST)Anatomical Region LateralityModalityOtherSpecimen (Source)Anatomical Location / Laterality Collection Method / VolumeCollection TimeReceived Time06/27/2024 11:49 AM EST Narrative 06/27/2024 11:52 AM EST [facility] ?[address] ? [place] [address] ? Ultrasound Report ? Signed ? Patient: BAYRON,GOLDIE ?MR#: [id number] ?? : 1995 ?Acct:[id number] ?? Age/Sex: 28 / F ?ADM Date: 11/08/24 ?? Loc: [facility] ??250-1 ? Attending Dr: Won Rueda D.O. ? Ordering Physician: Won Rueda D.O. ?? Date of Service: 06/27/24 ?? Procedure(s): US OB BPP w non-stress ?? Accession Number(s): [id number] ? cc: Won Rueda D.O.; LUCILA MAXWELL ? [facility] ? [address] ? [place] [address] ? Patient Name: ?? GOLDIE ??BAYRON ? MRN: [facility]:[id number] ? date: 1995 ?Sex: F ?? Assigned Patient Location: [facility] ?? Current Patient Location: [facility] ?? Accession/Order Number: [id number] ?? Exam Date: 06/27/2024 ??11:00 ?Report Date: 06/27/2024 ??11:49 ? At the request of: ?? WON ??TREVON ? Procedure: ??US OB BPP w non-stress ? EXAMINATION: US OB BPP w non-stress ? HISTORY:H/O DELIVERY O09.091 ? COMPARISON: Ultrasound OB biophysical 06/20/2024 ? TECHNIQUE: Ultrasound biophysical profile was performed in the radiology ?? department. ? BREATHING MOVEMENTS: 2 ?? GROSS BODY MOVEMENTS: 2 ?? TONE: 2 ?? QUALITATIVE AMNIOTIC FLUID VOLUME: 2 ? PRESENTATION: CEPHALIC ?? HEART RATE: 150 bpm ?? AMNIOTIC FLUID VOLUME: 14.93 cm ?? GESTATIONAL AGE: 35 weeks 6 days ? US/US OB BPP w non-stress ?? IMPRESSION: ? Total biophysical profile score: 8 ? Electronically authenticated by: HARRISON ??BOB ?? Date: 06/27/2024 ??11:49 ? Dictated By: ?[place] Saxena M.D. ? Signed By: ?06/27/24 1152 ? DD/ 1149 ? TD/TT: ? Enamel Cracker: Procedure Note Radiology, Radiologist, MD - 06/27/2024 [place] [address] Ultrasound Report Signed Patient: JESSICA VERMA#: [id number] : 1995Acct:[id number] Age/Sex: 28 / FADM Date: 06/27/24 Loc: [facility] 250-[address]: Won Rueda D.O. Ordering Physician: Won Rueda D.O. Date of Service: 06/27/24 Procedure(s): US OB BPP w non-stress Accession Number(s): [id number] cc: Won Rueda D.O.; LUCILA MAXWELL [facility] [address] [place] [id number] Patient Name: GOLDIE VERMA MRN: [facility]:[id number] date: 1995 Sex: F Assigned Patient Location: [facility] Current Patient Location: [facility] Accession/Order Number: [id number] Exam Date: 06/27/2024 11:00 Report Date: 06/27/2024 [...] M.D. Signed By:06/27/24 1152 DD/ 1149 TD/TT: Enamel Cracker: Authorizing ProviderResult TypeResult StatusCoreluis fernando Rueda DOCLINISYNC IMAGINGFinal Result documented in this encounter Visit Diagnoses Not on filedocumented in this encounter Care Teams Team MemberRelationshipSpecialtyStart DateEnd Date Lucila Maxwell NP [address] [place] [address] [phone] (work) PCP - GeneralFamily [facility]11/11/23 Won Rueda DO [address] [place] [address] [place] [address] PCP - FFS [facility]///documented as of this encounter
--- OUTSIDE RECORDS SUMMARY | 2025-06-29 11:32 | XMS_ITS | Encounter Summary ---
Author Organization [facility] Address [address] [place] [address] Care Team Providers Care Patient Assistant Name Role Phone Lucila Arnett RESOURCE ROOM TEACHER Primary Care Provider Encounter Details DateTypeDepartmentCare Team (Latest Contact Info)Xloolbytuge19/29/2025Telephone [facility] [place] [facility] [address] [facility] [place] [address] Moi Rueda DO [address]hele [place], [facility] Social History Tobacco UseTypesPacks/DayYears UsedDateSmoking Tobacco: NeverSmokeless Tobacco: NeverCommentsUnknownSex and Gender InformationValueDate RecordedSex Assigned at BirthNot on fileLegal PeeJehqvg09/15/2023 7:02 PM EDTGender Identity Not on fileSexual OrientationNot on filedocumented as of this encounter Miscellaneous Notes * Telephone Encounter - Debra Hughes LPN - 06/17/2025 2:25 PM EDT Patient was transferred back to nurse line from [facility] in regards to heavy bleeding through heavy nighttime pads and clothes. Patient states really bad endo and that she has been a patient with Drfor years and that she just hasn't been back due to multiple things going on in life and that she is also having problems with hormones all over the place. Patient was advised if bleeding is that severe and hormones are all over then would be best to be checked out at ER if concerning that bad. Patient states that she does have an appointment on Sunday and that she just not sure what to do she was again reassured if bleeding if that severe to go to ER. 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 Patient was advised I could transfer her to clerical to see if they have anything with provider other than as he is out due to a family emergency and he wont be back in until Sunday. Patient asked who was in office and advised Susan and a RESOURCE ROOM TEACHER. She states her appointment in Sunday again advised if gets worse to head to ER for eval. documented in this encounter Plan of Treatment Not on file documented as of this encounter Visit Diagnoses Not on filedocumented in this encounter Care Teams Team MemberRelationshipSpecialtyStart DateEnd Date Lucila Arnett NP [address] [place] [address] PCP - GeneralFamily Medicine11/11/23documented as of this encounter
--- OUTSIDE RECORDS SUMMARY | 2025-06-29 11:32 | XMS_ITS | Encounter Summary ---
Author Organization [facility] Address [address] [place] [address] Care Team Providers Care Catalogue Illustrator Name Role Phone SteveJaspal perdomo Fay CHANG Primary Care Provider Won Rueda DO Unavailable Encounter Details DateTypeDepartmentCare Team (Latest Contact Info)Vdorheennqy80/26/2024Clinisync Result Encounter [facility] External Department Unsolicited Won Rueda, DO [address] [facility] [place] [address] Social History Tobacco UseTypesPacks/DayYears UsedDateSmoking Tobacco: Never Assessed CommentsYesSex and Gender InformationValueDate RecordedSex Assigned at BirthNot on fileLegal MsxDmnafq94/15/2023 7:02 PM EDTGender IdentityNot on fileSexual OrientationNot on filedocumented as of this encounter Plan of Treatment Not on file documented as of this encounter Procedures Procedure NamePriorityDate/TimeAssociated DiagnosisCommentsUS OB BPP W NON-WULMMT5506/14/2024 4:21 AM EDT documented in this encounter Results * US OB BPP W NON-STRESS (06/14/2024 4:21 AM EDT)Anatomical Region LateralityModalityOtherSpecimen (Source)Anatomical Location / Laterality Collection Method / VolumeCollection TimeReceived Time06/14/2024 4:21 AM EDT Narrative 06/14/2024 4:23 AM EDT [facility] ?[address] ? [place] [address] ? Ultrasound Report ? Signed ? Patient: BAYRON,GOLDIE ?MR#: [id number] ?? : 1995 ?Acct:[id number] ?? Age/Sex: 28 / F ?ADM Date: 10/25/24 ?? Loc: US ? Attending Dr: Won Rueda D.O. ? Ordering Physician: Won Rueda D.O. ?? Date of Service: 06/13/24 ?? Procedure(s): US OB BPP w non-stress ?? Accession Number(s): [id number] ? cc: Won Rueda D.O.; JASPAL MAXWELL ? [facility] ? [address] ? [place] [address] ? Patient Name: ?? GOLDIE ??BAYRON ? MRN: [facility]:[id number] ? date: 1995 ?Sex: F ?? Assigned Patient Location: [facility] ?? Current Patient Location: ? Accession/Order Number: [id number] ?? Exam Date: 06/13/2024 ??10:53 ?Report Date: 06/14/2024 ??04:21 ? At the request of: ?? WON ??MARYBETH ? Procedure: ??US OB BPP w non-stress ? EXAMINATION: US OB BPP w non-stress ? HISTORY:History of delivery ? COMPARISON: Ultrasound OB biophysical 06/06/2024 ? TECHNIQUE: Ultrasound biophysical profile was performed in the radiology ?? department. ? BREATHING MOVEMENTS: 2 ?? GROSS BODY MOVEMENTS: 2 ?? TONE: 2 ?? QUALITATIVE AMNIOTIC FLUID VOLUME: 2 ? PRESENTATION: CEPHALIC ?? HEART RATE: 143.62 bpm ?? AMNIOTIC FLUID VOLUME: 15.09 cm ?? GESTATIONAL AGE: 33 weeks 6 days ? US/US OB BPP w non-stress ?? IMPRESSION: ? Total biophysical profile score: 8 ? Electronically authenticated by: HARRISON ??BOB ?? Date: 06/14/2024 ??04:21 ? Dictated By: ?[place] Saxena M.D. ? Signed By: ?06/14/24 0423 ? DD/ 042 ? TD/TT: ? Acls Specialist: Procedure Note Radiology, Radiologist, MD - 06/14/2024 [place] [address] Ultrasound Report Signed Patient: GOLDIE VERMA#: [id number] : 1995Acct:[id number] Age/Sex: 28 / FADM Date: 06/13/24 Loc: US Attending Dr: Won Rueda D.O. Ordering Physician: Won Rueda D.O. Date of Service: 06/13/24 Procedure(s): US OB BPP w non-stress Accession Number(s): [id number] cc: Won Rueda D.O.; JASPAL MAXWELL [facility] [address] [place] [id number] Patient Name: GOLDIE VERMA MRN: [facility]:[id number] date: 1995 Sex: F Assigned Patient Location: [facility] Current Patient Location: Accession/Order Number: [id number] Exam Date: 06/13/2024 10:53 Report Date: 06/14/2024 [...] Saxena M.D. Signed By:06/14/24422 DD/ 0 TD/TT: Acls Specialist: Authorizing ProviderResult TypeResult StatusCorey Marybeth DOCLINISYNC IMAGINGFinal Result documented in this encounter Visit Diagnoses Not on filedocumented in this encounter Care Teams Team MemberRelationshipSpecialtyStart DateEnd Date Jaspal Maxwell NP [address] [place] [address] PCP - GeneralFamily Medicine11/11/23 Won Rueda DO [address] [place], [place] [address]mickey [place] [id number] PCP - FFS [facility]/documented as of this encounter
--- OUTSIDE RECORDS SUMMARY | 2025-06-29 11:32 | XMS_ITS | Encounter Summary ---
Author Organization [facility] Address [address] [place] [address] Care Team Providers Care Director Of Human Resources Name Role Phone EllyJaspal nicole Fay CHANG Primary Care Provider Won Rueda DO Unavailable Encounter Details DateTypeDepartmentCare Team (Latest Contact Info)Jbwrjkjdapc58/25/2024Clinisync Result Encounter [facility] External Department Unsolicited Won Rueda, DO [address] [facility] [place] [address] Social History Tobacco UseTypesPacks/DayYears UsedDateSmoking Tobacco: Never Assessed CommentsYesSex and Gender InformationValueDate RecordedSex Assigned at BirthNot on fileLegal KsdUziphg94/15/2023 7:02 PM EDTGender IdentityNot on fileSexual OrientationNot on filedocumented as of this encounter Plan of Treatment Not on file documented as of this encounter Procedures Procedure NamePriorityDate/TimeAssociated DiagnosisCommentsUS OB CERVICAL LENGTH 05/14/2024 4:29 AM EDT documented in this encounter Results * US OB CERVICAL LENGTH (05/14/2024 4:29 AM EDT)Anatomical RegionLaterality ModalityOtherSpecimen (Source)Anatomical Location / LateralityCollection Method / VolumeCollection TimeReceived Time05/14/2024 4:29 AM EDT Narrative 05/14/2024 4:[address] [facility] ?[address] ? [place] [address] ? Ultrasound Report ? Signed ? Patient: BAYRON,GOLDIE ?MR#: [id number] ?? : 1995 ?Acct:[id number] ?? Age/Sex: 28 / F ?ADM Date: 09/24/24 ?? Loc: [facility] ? Attending Dr: Won Rueda D.O. ? Ordering Physician: Won Rueda D.O. ?? Date of Service: 05/13/24 ?? Procedure(s): US OB cervical length ?? Accession Number(s): [id number] ? cc: Won Rueda D.O.; JASPAL MAXWELL ? [facility] ? [address] ? [place] [address] ? Patient Name: ?? GOLDIE ??BAYRON ? MRN: [facility]:[id number] ? date: 1995 ?Sex: F ?? Assigned Patient Location: [facility] ?? Current Patient Location: ? Accession/Order Number: [id number] ?? Exam Date: 05/13/2024 ??14:38 ?Report Date: 05/14/2024 ??04:29 ? At the request of: ?? WON ??MARYBETH ? Procedure: ??US OB cervical length ? EXAMINATION: US OB cervical length ? HISTORY: HISTORY OF DELIVERY ? COMPARISON: Ultrasound OB cervical length 03/13/2024 ? TECHNIQUE: Transabdominal sonographic examination was performed for ?? obstetrical ?? and evaluation. ? FINDINGS: ? Cervix Length: 4.33 cm ; closed. No appreciable shortening or funneling during ? Valsalva. ? GESTATIONAL AGE: ?? Age by EDC: 29 weeks 3 days ?? SINA by EDC: 2024-07-26 ? US/US OB cervical length ?? IMPRESSION: ? 1. Closed cervix 4.3 cm in length. ? Electronically authenticated by: HARRISON ??BOB ?? Date: 05/14/2024 ??04:29 ? Dictated By: ?[place] Saxena M.D. ? Signed By: ?05/14/24 0431 ? DD/ 0429 ? TD/TT: ? Bank Operations Officer: Procedure Note Radiology, Radiologist, MD - 05/14/[address] [address] Ultrasound Report Signed Patient: GOLDIE VERMAMR#: [id number] : 1995Acct:[id number] Age/Sex: 28 / FADM Date: 05/13/24 Loc: [facility] Attending Dr: Won Rueda D.O. Ordering Physician: Won Rueda D.O. Date of Service: 05/13/24 Procedure(s): US OB cervical length Accession Number(s): [id number] cc: Won Rueda D.O.; JASPAL MAXWELL [facility] [address] [place] [address] Patient Name: GOLDIE VERMA MRN: [facility]:[id number] date: 1995 Sex: F Assigned Patient Location: [facility] Current Patient Location: Accession/Order Number: [id number] Exam Date: 05/13/2024 14:38 Report Date: 05/14/2024 [...] M.D. Signed By:05/14/24 0431 DD/ 0429 TD/TT: Bank Operations Officer: Authorizing ProviderResult TypeResult StatusCorey Marybeth DOCLINISYNC IMAGINGFinal Result documented in this encounter Visit Diagnoses Not on filedocumented in this encounter Care Teams Team MemberRelationshipSpecialtyStart DateEnd Date Jaspal Maxwell NP [address] [facility] [place] [address] PCP - GeneralFamily Medicine11/11/23 Won Rueda DO [address] [place] [address] [place] [address] PCP - FFS State CPCdocumented as of this encounter
--- OUTSIDE RECORDS SUMMARY | 2025-06-29 11:32 | XMS_ITS | Encounter Summary ---
Author Organization [facility] Address [address] [place] [address] Care Team Providers Care Income Tax Preparer Name Role Phone EllyJaspal nicole Fay CHANG Primary Care Provider Won Rueda DO Unavailable Encounter Details DateTypeDepartmentCare Team (Latest Contact Info)Ntqtskiruby81/17/2024Clinisync Result Encounter [facility] External Department Unsolicited Won Rueda, DO [address] [place] [address] Social History Tobacco UseTypesPacks/DayYears UsedDateSmoking Tobacco: Never Assessed CommentsYesSex and Gender InformationValueDate RecordedSex Assigned at BirthNot on fileLegal RrqCtoptm72/15/2023 7:02 PM EDTGender IdentityNot on fileSexual OrientationNot on filedocumented as of this encounter Plan of Treatment Not on file documented as of this encounter Procedures Procedure NamePriorityDate/TimeAssociated DiagnosisCommentsUS OB GROWTH 06/05/2024 11:22 AM EDT documented in this encounter Results * US OB GROWTH (06/05/2024 11:22 AM EDT)Anatomical RegionLateralityModalityOther Specimen (Source)Anatomical Location / LateralityCollection Method / Volume Collection TimeReceived Time06/05/2024 11:22 AM EDT Narrative 06/05/2024 11:25 AM EDT [facility] ?[address] ? [place] [address] ? Ultrasound Report ? Signed ? Patient: BAYRON,GOLDIE ?MR#: [id number] ?? : 1995 ?Acct:[id number] ?? Age/Sex: 28 / F ?ADM Date: 10/17/24 ?? [facility] ? Attending Dr: Won Rueda D.O. ? Ordering Physician: Won Rueda D.O. ?? Date of Service: 06/05/24 ?? Procedure(s): US OB growth ?? Accession Number(s): [id number] ? cc: Won Rueda D.O.; JASPAL MAXWELL ? [facility] ? [address] ? [place] [address] ? Patient Name: ?? GOLDIE ??BAYRON ? MRN: [facility]:[id number] ? date: 1995 ?Sex: F ?? Assigned Patient Location: [facility] ?? Current Patient Location: [facility] ?? Accession/Order Number: [id number] ?? Exam Date: 06/05/2024 ??09:55 ?Report Date: 06/05/2024 ??11:22 ? At the request of: ?? WON ??MARYBETH ? Procedure: ??US OB growth ? EXAMINATION: US OB growth ? HISTORY: HISTORY OF DELIVERY ? COMPARISON: No relevant comparison available. ? FINDINGS: ? Heart Rate: 165 bpm ?? Amniotic Fluid Volume: 12.1 cm. Largest fluid pocket 3.5 cm ?? Number: 1 ?? Position: Cephalic presentation, longitudinal lie ? BIOMETRY: ?? BPD: 7.90 cm; 31 weeks 5 days; 16.10 % ?? HC: 30.44 cm; 33 weeks 6 days; 42.30 % ?? AC: 29.80 cm; 33 weeks 5 days; 79.60 % ?? FL: 6.66 cm; 34 weeks 2 days; 78.80 % ?? EFW: 2042.11 g; 72.50 % 5 lbs. 0 oz. ?? FL/AC: 22.35 ?? FL/BPD: 84.30 ?? HC/AC: 1.02 ? GESTATIONAL AGE: ?? Age by EDC: 32 weeks 5 days ?? SINA by EDC: 2024-07-26 ?? Age by US: 33 weeks 3 days ?? SINA by US: 2024-07-21 ? US/US OB growth ?? IMPRESSION: ? Normal interval growth ? Electronically authenticated by: DARLINE ??WEST ?? Date: 06/05/2024 ??11:22 ? Dictated By: ?Darline Espitia M.D. ? Signed By: ?10/17/24 1125 ? DD/DT: 06/05/ 1122 ? TD/TT: ? Air Conditioning Coil Assembler: Procedure Note Radiology, Radiologist, - 06/05/2024 [place] [address] Ultrasound Report Signed Patient: GOLDIE VERMAMR#: [id number] : 1995Acct:[id number] Age/Sex: 28 / FADM Date: 06/05/24 Loc: [facility] Attending Dr: Won Rueda D.O. Ordering Physician: Won Rueda D.O. Date of Service: 06/05/24 Procedure(s): US OB growth Accession Number(s): [id number] cc: Won Rueda D.O.; JASPAL MAXWELL [place] [address] Patient Name: GOLDIE VERMA MRN: [id number] date: 1995 Sex: F Assigned Patient Location: [facility] Current Patient Location: [facility] Accession/Order Number: [id number] Exam Date: 06/05/2024 09:55 Report Date: 06/05/2024 [...] Darline Espitia M.D. Signed By:06/05/24 1125 DD/ 112 TD/TT: Air Conditioning Coil Assembler: Authorizing ProviderResult TypeResult StatusCorey Marybeth DOCLINISYNC IMAGINGFinal Result documented in this encounter Visit Diagnoses Not on filedocumented in this encounter Care Teams Team MemberRelationshipSpecialtyStart DateEnd Date Jaspal Maxwell NP [address] [place] [address] [place] [address] PCP - GeneralFamily Medicine11/11/23 Won Rueda DO [address] [place] [address] [address] [place] [address] PCP - FFS [facility]//documented as of this encounter
--- OUTSIDE RECORDS SUMMARY | 2025-06-29 11:32 | XMS_ITS | Encounter Summary ---
Author Organization [facility] Address [address] [place] [address] Care Team Providers Care Carbon Plant Grinder Name Role Phone SteveJaspal perdomo Fay CHANG Primary Care Provider Won Rueda DO Unavailable Encounter Details DateTypeDepartmentCare Team (Latest Contact Info)Rqnogquhqgi21/11/2024Clinisync Result Encounter [facility] External Department Unsolicited Won Rueda, DO [address] [facility] [place] [address] Social History Tobacco UseTypesPacks/DayYears UsedDateSmoking Tobacco: Never Assessed CommentsYesSex and Gender InformationValueDate RecordedSex Assigned at BirthNot on fileLegal EenCzwyhf37/15/2023 7:02 PM EDTGender IdentityNot on fileSexual OrientationNot on filedocumented as of this encounter Plan of Treatment Not on file documented as of this encounter Procedures Procedure NamePriorityDate/TimeAssociated DiagnosisCommentsUS OB BPP W NON-MGZBHZ2905/30/2024 11:11 AM EDT documented in this encounter Results * US OB BPP W NON-STRESS (05/30/2024 11:11 AM EDT)Anatomical Region LateralityModalityOtherSpecimen (Source)Anatomical Location / Laterality Collection Method / VolumeCollection TimeReceived Time05/30/2024 11:11 AM EDT Narrative 05/30/2024 11:14 AM EDT [facility] ?[address] ? [place] [address] ? Ultrasound Report ? Signed ? Patient: BAYRON,GOLDIE ?MR#: [id number] ?? : 1995 ?Acct:[id number] ?? Age/Sex: 28 / F ?ADM Date: 10/11/24 ?? Loc: [facility] ??254-1 ? Attending Dr: Won Rueda D.O. ? Ordering Physician: Won Rueda D.O. ?? Date of Service: 05/30/24 ?? Procedure(s): US OB BPP w non-stress ?? Accession Number(s): [id number] ? cc: Won Rueda D.O.; JASPAL MAXWELL ? [facility] ? [address] ? [place] [address] ? Patient Name: ?? GOLDIE ??BAYRON ? MRN: [facility]:[id number] ? date: 1995 ?Sex: F ?? Assigned Patient Location: [facility] ?? Current Patient Location[facility] ?? Accession/Order Number: [id number] ?? Exam Date: 05/30/2024 ??10:43 ?Report Date: 05/30/2024 ??11:11 ? At the request of: ?? WON ??MARYBETH ? Procedure: ??US OB BPP w non-stress ? EXAMINATION: US OB BPP w non-stress ? HISTORY: History of labor O09.891 ? COMPARISON: No relevant comparison available. ? TECHNIQUE: Ultrasound biophysical profile was performed in the radiology ?? department. non-reactive stress testing was performed by nursing staff ?? in ?? the birthing center. ? FINDINGS: ?? BREATHING MOVEMENTS: 2 ?? GROSS BODY MOVEMENTS: 2 ?? TONE: 2 ? QUALITATIVE AMNIOTIC FLUID VOLUME: 2 ?? PRESENTATION: CEPHALIC ?? HEART RATE: 155.17 bpm ?? AMNIOTIC FLUID VOLUME: 14.2 cm ?? GESTATIONAL AGE: 30 weeks 6 days ? US/US OB BPP w non-stress ?? IMPRESSION: ? Total biophysical profile score: 8/8 ? Electronically authenticated by: DARLINE ??WEST ?? Date: 05/30/2024 ??11:11 ? Dictated By: ?Darline Espitia M.D. ? Signed By: ?05/30/24 1114 ? DD/ 1111 ? TD/TT: ? Manufacturing Plant Controller: Procedure Note Radiology, Radiologist, MD - 05/30/[address] [address] Ultrasound Report Signed Patient: GOLDIE VERMAMR#: [id number] : 1995Acct:[id number] Age/Sex: 28 / FADM Date: 05/30/24 Loc: [facility] 254-[address]: Won Rueda D.O. Ordering Physician: Won Rueda D.O. Date of Service: 05/30/24 Procedure(s): US OB BPP w non-stress Accession Number(s): [id number] cc: Won Rueda D.O.; JASPAL MAXWELL [place] [address] Patient Name: GOLDIE VERMA MRN: [facility]:[id number] date: 1995 Sex: F Assigned Patient Location: [facility] Current Patient Location: [facility] Accession/Order Number: [id number] Exam Date: 05/30/2024 10:43 Report Date: 05/30/2024 [...] M.D. Signed By:05/30/24 1114 DD/ 1111 TD/TT: Manufacturing Plant Controller: Authorizing ProviderResult TypeResult StatusCorey Marybeth DOCLINISYNC IMAGINGFinal Result documented in this encounter Visit Diagnoses Not on filedocumented in this encounter Care Teams Team MemberRelationshipSpecialtyStart DateEnd Date Jaspal Maxwell NP [facility] [place] [address] PCP - GeneralFamily Medicine11/11/23 Won Rueda DO [address] [place] [address] [place], [place] [id number] PCP - FFS [facility]/documented as of this encounter
--- OUTSIDE RECORDS SUMMARY | 2025-06-29 11:32 | XMS_ITS | Encounter Summary ---
Author Organization [facility] Address [address] [place] [address] Care Team Providers Care Patient Registration Supervisor Name Role Phone EllyJaspal nicole Fay CHANG Primary Care Provider Won Rueda DO Unavailable Encounter Details DateTypeDepartmentCare Team (Latest Contact Info)Oornhcwwvry25/01/2024Clinisync Result Encounter [facility] External Department Unsolicited Won Rueda, DO [address] [facility] [place] [address] Social History Tobacco UseTypesPacks/DayYears UsedDateSmoking Tobacco: Never Assessed CommentsYesSex and Gender InformationValueDate RecordedSex Assigned at BirthNot on fileLegal RznKxarjq39/15/2023 7:02 PM EDTGender IdentityNot on fileSexual OrientationNot on filedocumented as of this encounter Plan of Treatment Not on file documented as of this encounter Procedures Procedure NamePriorityDate/TimeAssociated DiagnosisCommentsUS OB BPP W NON-IIPREG0006/20/2024 12:30 PM EDT documented in this encounter Results * US OB BPP W NON-STRESS (06/20/2024 12:30 PM EDT)Anatomical Region LateralityModalityOtherSpecimen (Source)Anatomical Location / Laterality Collection Method / VolumeCollection TimeReceived Time06/20/2024 12:30 PM EDT Narrative 06/20/2024 12:33 PM EDT [facility] ?[address] ? [place] [address] ? Ultrasound Report ? Signed ? Patient: BAYRON,GOLDIE ?MR#: [id number] ?? : 1995 ?Acct:[id number] ?? Age/Sex: 28 / F ?ADM Date: 11/01/24 ?? Loc: US ? Attending Dr: Won Rueda D.O. ? Ordering Physician: Won Rueda D.O. ?? Date of Service: 06/20/24 ?? Procedure(s): US OB BPP w non-stress ?? Accession Number(s): [id number] ? cc: Won Rueda D.O.; JASPAL MAXWELL ? [facility] ? [address] ? [place] [address] ? Patient Name: ?? GOLDIE ??BAYRON ? MRN: [facility]:[id number] ? date: 1995 ?Sex: F ?? Assigned Patient Location: FB ?? Current Patient Location: ? Accession/Order Number: [id number] ?? Exam Date: 06/20/2024 ??11:04 ?Report Date: 06/20/2024 ??12:30 ? At the request of: ?? WON ??TREVON ? Procedure: ??US OB BPP w non-stress ? EXAMINATION: US OB BPP w non-stress ? HISTORY: History of delivery ? COMPARISON: No relevant comparison available. ? TECHNIQUE: Ultrasound biophysical profile was performed in the radiology ?? department. non-reactive stress testing was performed by nursing staff ?? in ?? the birthing center. ? FINDINGS: ?? BREATHING MOVEMENTS: 2 ?? GROSS BODY MOVEMENTS: 2 ?? TONE: 2 ? QUALITATIVE AMNIOTIC FLUID VOLUME: 2 ?? PRESENTATION: CEPHALIC ?? HEART RATE: 129.19 bpm ?? AMNIOTIC FLUID VOLUME: 14.5 cm ?? GESTATIONAL AGE: 34w6d ? US/US OB BPP w non-stress ?? IMPRESSION: ? Total biophysical profile score: 8 ? Electronically authenticated by: DARLINE ??WEST ?? Date: 06/20/2024 ??12:30 ? Dictated By: ?Darline Espitia M.D. ? Signed By: ?06/20/24 1233 ? DD/ 1230 ? TD/TT: ? Net Finisher: Procedure Note Radiology, Radiologist, MD - 06/20/2024 [place] [address] Ultrasound Report Signed Patient: GOLDIE VERMAMR#: [id number] : 1995Acct:[id number] Age/Sex: 28 / FADM Date: 06/20/24 Loc: US Attending Dr: Won Rueda D.O. Ordering Physician: Won Rueda D.O. Date of Service: 06/20/24 Procedure(s): US OB BPP w non-stress Accession Number(s): [id number] cc: Won Rueda D.O.; JASPAL MAXWELL [facility] [address] [place] [address] Patient Name: GOLDIE VERMA MRN: [id number] date: 1995 Sex: F Assigned Patient Location: [facility] Current Patient Location: Accession/Order Number: [id number] Exam Date: 06/20/2024 11:04 Report Date: 06/20/2024 [...] M.D. Signed By:06/20/24 1233 DD/ 1230 TD/TT: Net Finisher: Authorizing ProviderResult TypeResult StatusCoreluis fernando Rueda DOCLINISYNC IMAGINGFinal Result documented in this encounter Visit Diagnoses Not on filedocumented in this encounter Care Teams Team MemberRelationshipSpecialtyStart DateEnd Date Jaspal Maxwell NP [address] [facility] [place] [place] [address] PCP - GeneralFamily Medicine11/11/23 Won Rueda DO [address] [place] [address] [place] [address] PCP - FFS [facility]/documented as of this encounter
--- OUTSIDE RECORDS SUMMARY | 2025-06-29 11:32 | XMS_ITS | Clinical Summary ---
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 As hngmjg6705/08/2023ctive tiZANidine 4 MG tablet Take 1 tablet by mouth.09/17/2023ctive Ondansetron 4 MG Tab Dispersible tablet Take 1 tablet by mouth every 8 hours as needed for Nausea / Vomiting. 18 tablet ctive Social History Tobacco UseTypesPacks/DayYears UsedDateSmoking Tobacco: NeverSmokeless Tobacco: Never Tobacco Cessation:Counseling Given: Not Answered Alcohol UseStandard Drinks/WeekCommentsNever0 (1 standard drink = 0.6 oz pure alcohol)CommentsNoSex and Gender InformationValueDate RecordedSex Assigned at BirthNot on fileLegal AkmEhhwfp50/01/2024 1:43 PM ESTGender Identity Not on fileSexual OrientationNot on file Last Filed Vital Signs Vital SignReadingTime TakenCommentsBlood Umtnacaw926/80011/02/2023 2:27 PM EDT Pulse--Temperature--Respiratory Rate--Oxygen Saturation--Inhaled Oxygen Concentration--Cjxqew13.2 kg (143 lb 11.2 oz)11/02/2023 2:27 PM EGHJcgdaz635.3 cm (5' 11 )11/02/2023 2:27 PM EDTBody Mass Index20.04011/02/2023 2:27 PM EDT Plan of Treatment Health MaintenanceDue DateLast DoneCommentsHEPATITIS C VIRUS RSWTHAYHC80/21/1997 LVCIRCA47 1996HIV SCREENING PJCECTCRMA22/21/2012HEP B VACCINE (1 of 3 - 19+ 3-dose series)11/08/2015TDAP (ADULT)11/08/2015CERVICAL CANCER SCREENING VIKHFUXFDZ80/21/2018HPV VACCINE (1 - 3-dose SCDM series)4COVID-19 VACCINE (3 - 2024- season)510/01/2021, 05/04/2021INFLUENZA VACCINE (#1)2025PNEUMOCOCCAL VACCINE SERIESAged OutNo longer eligible based on patient's age to complete this topic Insurance
--- OUTSIDE RECORDS SUMMARY | 2025-06-29 11:35 | XMS_ITS | CCD ---
Author Organization [facility] Care Team Providers Care Substitute Crossing Guard Name Role Phone MARYBETH, DR UPTON Admitting Unavailable MISC, DR DAVENPORT Primary Care Unavailable WAKA, DR DARLINE Fitzgerald Consulting Unavailable MARYBETH, DR UPTON Attending Unavailable MARYBETH, DR UPTON Consulting Unavailable MAYRBETH, DR UPTON Consulting Unavailable MARYBETH, DR UPTON [...] Unavailable Primary Care Provider Unavailabl e MISAL, CHERI Attending Unavailable LUCILA ARNETT Referring Unavailable [...] Unavailable MARYBETH, MOI R Referring Unavailable BARI ZEPEDA Attending Unavailable MARYBETH, MOI R Referring Unavailable MARYBETH, MOI R Referring Unavailable TAMMY HORNE Attending Unavailable MARYBETH, MOI R Referring Unavailable MARYBETH, MOI R Referring Unavailable MARYBETH, MOI R Referring Unavailable Rohrbacher Lucila CHANG Primary Care Provider Rohrbacher PURCHASERLucila Dolan Primary Care Provider Rohrbacher PURCHASER, Lucila Attending Provider Lucila Arnett Attending Unavailable Steveachealaian, Lucila Primary Care Unavailable SteveacheLucila foley Admitting Unavailable Unavailable Primary Care Provider Unavailabl e Ellyrbacher PURCHASER, Lucila Primary Care Provider Rohrbacher PURCHASER, Lucila Attending Provider [phone] Marybeth DO, Moi Unavailable Marybeth DO, Moi Unavailable DORITA QUIROGA Attending Unavailable MARYBETH, MOI Attending Unavailable MARYBETH, MOI Attending Unavailable MARYBETH, MOI Attending Unavailable MARYBETH, MOI Attending Unavailable Rohrbacher PURCHASER, Lucila Primary Care Provider Ellyrbacher REAL, Lucila Attending Provider Allergies Allergy ClassificationReported Allergen(s)Allergy TypeDate of OnsetReaction(s) FacilityOpioid Agonists (1 source)traMADolDrug Ywlnaow20-69-4181HncPromedica [facility] (20 sources)traMADol; Translations: [TRAMADOL]Drug Jrqtymc22-75-8515Gbzffny, RebecaMount [facility]. [facility] (20 sources)Lavender Oil; Translations: [LAVENDER OIL]Drug dwsoqko24-38-3428 Unknown, RashProMedica Repository (8 sources)lavender (Lavandula angustifolia); Translations: [lavender (Lavandula angustifolia)]Allergy to ycwohygrn76-76-1484TrarmbtMorrow [facility] Hospital (20 sources)GALCANEZUMAB-GNLM; Translations: [GALCANEZUMAB-GNLM]Propensity to adverse reactions to drug (disorder)67-94-4443KhiWqjfuz Repository (20 sources)GalcanezumabPropensity to adverse qacklezlq04-18-6468IngbdOTJK Healthcare Work Phone: (1 source)traMADolDrug Ossplhy40-79-4054IhdcjqlogOhio State East Hospital Repository Medications Current Medications MedicationDrug Class(es)DatesSig (Normalized)Sig (Original)acetaminophen 325 mg oral tablet (1 source)Start: 08-61-3728ntbosjlsedsnj 325 mg tablet PLEASE SEE ATTACHED FOR DETAILED DIRECTIONS - Activeacetaminophen 300 mg / codeine phosphate 30 mg oral tablet (1 source)Opioid AgonistStart: 42-47-7824bnzhmyndoupxt 300 mg-codeine 30 mg tablet - [id number] 200 actuat albuterol 0.09 mg/actuat metered dose inhaler (1 source)beta2-Adrenergic AgonistStart: 21-71-2352mmzq 1 puff(s) by inhalation every four to six hours as needed for wheezingamoxicillin 875 mg oral tablet (2 sources)Penicillin-class AntibacterialStart: 05-42-1768fwyx 1 tablet by mouth every twelve hoursamoxicillin 875 mg tablet TAKE 1 TABLET BY MOUTH EVERY 12 HOURS FOR 10 DAYS UNTIL ALL TAKEN - ActiveStart: 12-26-2022 amoxicillin 500 mg capsule - Jiaswm52 hr amphetamine aspartate 5 mg / amphetamine sulfate 5 mg / dextroamphetamine saccharate 5 mg / de xtroamphetamine sulfate 5 mg extended release oral capsule (10 sources)Central Nervous System StimulantStart: 13-63-0427ojmosfxchqb- dextroamphetamine XR (Adderall XR) 20 MG 24 hr capsule 01/08/2025 ActiveStart: 91-38-7598vykp 1 capsule by mouth once daily in the morningamphetamine- dextroamphetamine XR (Adderall XR) 10 MG 24 hr capsule TAKE 1 CAPSULE BY MOUTH DAILY INTHE MORNING 10/23/2024 Activeaspirin 81 mg delayed release oral tablet (20 sources)Platelet Aggregation Inhibitor, Nonsteroidal Anti-inflammatory Drug Start: 02-25-2024 End: 48-28-3893cxiglne 81 mg Indications: 18 weeks gestation of , History of placenta abruption , History of delivery, currently Take 1 tablet once a day until 36 weeks gestation 30 tablet 6 02/25/2024 Active brompheniramine maleate 0.4 mg/ml / dextromethorphan hydrobromide 2 mg/ml / pseudoephedrine hydrochloride 6 mg/ml oral solution (1 source)alpha-Adrenergic Agonist, Uncompetitive N-diukft-U-aspartate Receptor Antagonist, Sigma-1 AgonistStart: 96-31-3779euwl 5 mL by mouth four times daily Bromfed DM oral syrup 5 mL, Oral, QID for cold symptoms, 200 mL, Refill(s) 0 Start Date: 09/30/17 Status: Orderedcariprazine 1.5 mg oral capsule (5 sources)Atypical AntipsychoticStart: 90-62-7568zavu 1 capsule by mouth once dailyVraylar 1.5 MG capsule Take 1 capsule by mouth Daily 10/09/2024 Active celecoxib 200 mg oral capsule (1 source)Nonsteroidal Anti-inflammatory DrugStart: 55-42-1409wmrhennrt 200 mg capsule - Active0.5 ml choriogonadotropin martha 0.5 mg/ml prefilled syringe (1 source)GonadotropinStart: 18-00-3047Whtljni 250 mcg/0.5 mL subcutaneous syringe - Activecitalopram 20 mg oral tablet (8 sources)Serotonin Reuptake InhibitorStart: 08-27-2024 End: 89-90-5888aaoa 1 tablet by mouth once dailycitalopram (CeleXA) 20 MG tablet Indications: Mood disorder Take 1 tablet (20 mg) by mouth Daily 30tablet 11 08/27/2024 08/27/2025 Activedoxepin hydrochloride 10 mg oral capsule (3 sources)Tricyclic AntidepressantStart: 11-27-2023 End: 67-64-1710wjufueu 10 mg capsule - Activeescitalopram 20 mg oral tablet (1 source)Serotonin Reuptake InhibitorStart: 68-25-9385sdpxlmeejswd 20 mg tablet - Activeibuprofen 600 mg oral tablet (2 sources)Nonsteroidal Anti-inflammatory DrugStart: 25-72-5631vmdnyjgif 600 mg tablet PLEASE SEE ATTACHED FOR DETAILED DIRECTIONS - Activeketorolac tromethamine 10 mg oral tablet (1 source)Nonsteroidal Anti-inflammatory Drug, Cyclooxygenase InhibitorStart: 42-97-9921nibj 1 tablet by mouth every eight hoursKetorolac 10 mg tablet Active 10 MG PO Every 8 hours 15 5 0 June 24, 2025 12:00am Endometriosis Endometriosis, unspecified maximum total duration of 5 days from all oral, intranasal, or parenteral formulations Complies with drug therapylevonorgestrel 1.5 mg oral tablet (2 sources)Progestin, Progestin-containing Intrauterine DeviceStart: 10-28-2024 take 1 tablet by mouth oncemethocarbamol 750 mg oral tablet (1 source)Muscle RelaxantStart: 59-02-6106raui 1 tablet by mouth every six hours Robaxin-750 oral tablet 750 mg = 1 tab(s), Oral, q6hr, # 12 tab(s), Refills(s) 0 Start Date: 01/27/19 Status: OrderedmetroNIDAZOLE 500 mg oral tablet (1 source)Nitroimidazole AntimicrobialStart: 08-01-2024 End: 00-02-3313vqmb 1 tablet by mouth in the morningmetroNIDAZOLE (Flagyl) 500 MG tablet Indications: BV (bacterial vaginosis) Take 1 tablet (500 mg) by mouth in the morning and 1 tablet (500 mg) before bedtime. Do all this for 7 days. Do not drink alcohol while taking this medication. 14 tablet 08/01/2024 08/08/2024 Activenorethindrone acetate 5 mg oral tablet (1 source)Start: 51-45-9802aqvzfzetpvnme acetate 5 mg tablet - Activeprenatal pk170-xbbf-shvas acid ( 19) 29 mg iron- 1 mg tablet,chewable (4 sources) ka428-hajz-tmebl acid ( 19) 29 mg iron- 1 mg tablet,chewable Chew 1 tablet and swallow in the morning. ActivetiZANidine 2 mg oral tablet (20 sources)Central alpha-2 Adrenergic AgonistStart: 99-53-5360hngl 1 tablet by mouth every eight hours as needed for muscle spasmsStart: 03-06-2025 End: 04-75-9418gqyi 1 tablet by mouth every eight hours as neededTizanidine 2 mg tablet Discontinued 2 MG PO Every 8 hours as needed for muscle spasticity 90 30 0 March 05, 2025 11:00pm June 23, 2025 3:31pm Endometriosis Endometriosis, unspecifiedStart: 09-08-2024 End: 71-69-8168pzik 1 tablet by mouth every eight hours as neededTizanidine 2 mg tablet Discontinued 2 MG PO Every 8 hours as needed for muscle spasticity 90 30 0 September 08, 2024 12:00am December 30, 2024 8:28am Endometriosis Endometriosis, unspecifiedStart: 19-14-3781xrvk 1 tablet by mouth every six hours as needed tiZANidine (Zanaflex) 4 MG tablet Take 4 mg by mouth every 6 (six) hours if needed for muscle spasms 01/10/2024 ActiveStart: 44-82-6503hkdy 1 tablet by mouth three times daily as neededtizanidine 2 mg tablet TAKE 1 TABLET BY MOUTH THREE TIMES DAILY NEEDED - ActiveStart: 08-03-2023 End: 12-55-1105wdow 1 tablet by mouth three times daily as neededTizanidine 4 mg tablet Discontinued 4 MG PO Three times daily as needed October 16, 2023 12:00amSeptember 08, 2024 2:19pmtraZODone hydrochloride 50 mg oral tablet (1 source)Serotonin Reuptake InhibitorStart: 11-36-0802cqkyksgeb 50 mg tablet - ActiveZofran ODT 4 mg Tab-Dis (1 source)Start: 91-79-0448gnro 1 tablet by mouth every six hoursZofran ODT 4 mg Tab-Dis 4 mg = 1 tab(s), Oral, q6hr, # 10 tab(s), Refills(s) 0, Pharmacy: [facility] Start Date: 09/21/18 Status: Ordered Completed/Discontinued Medications MedicationDrug Class(es)DatesSig (Normalized)Sig (Original)amoxicillin 875 mg / clavulanate 125 mg oral tablet (4 sources)Penicillin-class AntibacterialStart: 09-12-2024 End: 66-67-6872jacc 1 tablet by mouth twice dailyAmoxicillin-Pot Clavulanate 875-125 mg tablet Discontinued 1 TAB PO Twice daily 20 10 0 September 12, 2024 12:00am October 27, 2024 9:24ambaclofen 10 mg oral tablet (7 sources)gamma-Aminobutyric Acid-ergic AgonistStart: 12-30-2024 End: 00-73-5344vvrv 1 tablet by mouth three times dailyBaclofen 10 mg tablet Discontinued 10 MG PO Three times daily 30 10 0 December 29, 2024 11:00pm March 062024 10:02am Endometriosis Endometriosis, unspecifiedBlood Glucose Monitoring Suppl (D-Care Glucometer) w/Device kit (20 sources)Start: 04-24-2024 End: 09-60-7555Pvyaw Glucose Monitoring Suppl (D-Care Glucometer) w/Device kit Indications: Elevated glucose tolerance test 1 kit Daily Use four times daily to check FSBS. In the morning prior to breakfast & 1 hour after each meal for a total of 4times daily. 1 kit 04/24/2024 08/27/2024 DiscontinuedStart: 04-24-2024 End: 08-25-9061Ytrds Glucose Monitoring Suppl (D-Care Glucometer) w/Device kit Indications: Elevated glucose tolerance test 1 kit Daily Use four times daily to check FSBS. In the morning prior to breakfast & 1 hour after each meal for a total of 4times daily. 1 kit 04/24/2024 04/24/2025 ActiveclonazePAM 0.5 mg oral tablet (20 sources)BenzodiazepineStart: 05-08-2023 End: 05-15-3061avum 1 tablet by mouth twice daily as needed for anxiety Clonazepam 0.5 mg tablet Discontinued 0.5 MG PO Twice daily as needed for anxiety 30 0 July 16, 2024 1:15pm September 08, 2024 3:22pm Generalized anxiety disorder Generalized anxiety disordercyclobenzaprine hydrochloride 10 mg oral tablet (20 sources)Muscle RelaxantStart: 04-28-2023 End: 04-19-8524gbetyyhpoemrtdx (Flexeril) 10 MG tablet cyclobenzaprine 10 mg tablet - Active 04/28/2023 08/27/2024 Discontinued{21 (Desogestrel 0.15 MG / Ethinyl Estradiol 0.03 MG Oral Tablet) / 7 (Inert Ingredients 1 MG Oral Tablet) } Pack [Enskyce 28 Day] (1 source)Progestin, EstrogenStart: 59-40-2540koho 1 tablet by mouth once daily Enskyce 0.15 mg-0.03 mg oral tablet 1 tab(s), Oral, Daily, Refill(s) 0 Start Date: 09/30/17 Status: Orderedferrous sulfate (19 sources) End: 78-69-2361xybr 1 tablet by mouth in the morningFerrous Sulfate (IRON PO) Take 1 tablet by mouth in the morning. 08/27/2024 Discontinuedtake 1 tablet by mouth in the morningFerrous Sulfate (IRON PO) Take 1 tablet by mouth in the morning. Activeisopropyl alcohol 0.7 ml/ml medicated pad (20 sources)Start: 04-24-2024 End: 64-86-7565Zbymgys Swabs (Alcohol Prep Pad) 70 % pads Indications: Elevated glucose tolerance test Apply 1 Padtopically Daily Use four times daily to check FSBS. 150 each 3 04/24/2024 08/27/2024 Discontinuedmagnesium lactate 84 mg extended release oral tablet (20 sources) End: 73-99-7027qfgv 1 tablet by mouth in the morningmagnesium lactate CR (Magtab) 84 MG (7MEQ) ER tablet Take 84 mg by mouth in the morning. 08/27/2024 Discontinuedmagnesium oxide 400 mg oral tablet (20 sources)Start: 12-18-2023 End: 40-49-5632klgoewfht oxide (Mag-Ox) 400 (240 Mg) MG tablet 12/19/2023 08/27/2024 Discontinuedmeloxicam 7.5 mg oral tablet (15 sources)Nonsteroidal Anti-inflammatory DrugStart: 10-24-2023 End: 07-01-5603wwke 1 tablet by mouth once dailyMeloxicam 7.5 mg tablet Discontinued 7.5 MG PO Daily October 26, 2023 2:24pm September 08, 2024 2:20pm Endometriosis Endometriosis, unspecifiedomeprazole 20 mg delayed release oral capsule (20 sources)Proton Pump InhibitorStart: 12-13-2023 End: 64-40-7030mjmm 1 capsule by mouth before mealtimeomeprazole (PriLOSEC) [address] capsule Indications: Heartburn during in first trimester (HHS- HCC) Take 1 capsule (20 mg) by mouth in the morning. Take before meals. Do not crush or chew.. 30 capsule 11 12/13/2023 08/27/2024 Discontinuedondansetron 4 mg disintegrating oral tablet (20 sources)Serotonin-3 Receptor AntagonistStart: 11-30-2023 End: 82-19-4996svrh 1 tablet by mouth every six hours for nauseaondansetron ODT (Zofran-ODT) 4 MG disintegrating tablet Indications: Nausea and vomiting in ([facility]) Take 1 tablet (4 mg) by mouth every 6 (six) hours if needed for nausea or vomiting 60 tablet 2 11/30/2023 12/30/2023 ExpiredStart: 83-35-0653vmlg 1 tablet by mouth every eight hours as neededOndansetron 4 MG Tab Dispersible tablet Take 1 tablet by mouth every 8 hours as needed for Nausea / Vomiting. 18 tablet 1 11/02/2023 Activeondansetron (ZOFRAN) 4 mg/5 mL solution Take by mouth once. Activepolysaccharide iron complex 391 mg oral capsule (20 sources)Start: 05-05-2024 End: 19-24-5369ycbu 1 capsule by mouth once dailyiron polysaccharides (ProFe) 391.3 (180 Fe) MG capsule Indications: Low iron Take 1 capsule (391.3 mg) by mouth Daily 30 capsule 6 05/05/2024 08/27/2024 DiscontinuedPrenatal Wpemrkno-Hnm-Jm-FA ( 1 + IRON PO) (20 sources) End: 63-20-5401Vgtoerrg Ztfrpxyf-Khd-Kb-FA ( 1 + IRON PO) Take by mouth Daily 08/27/2024 DiscontinuedPrenatal Qrjleqjh-Fbo-Qm-FA ( 1 + IRON PO) Take by mouth Daily Activeprogesterone 200 mg oral capsule (2 sources)Progesterone End: 57-88-3285fqng 1 capsule by mouth in the morningprogesterone (PROMETRIUM) 200 mg capsule Take 1 capsule (200 mg total) by mouth in the morning. 01/21/2024 Discontinued (Discontinued by another clinician)zolpidem tartrate 10 mg oral tablet (20 sources)gamma-Aminobutyric Acid-ergic AgonistStart: 05-19-2024 End: 93-74-0964cllwuhls (Ambien) 10 MG tablet Indications: Other insomnia Take 1 tablet (10 mg) by mouth as neededat bedtime for sleep (insomnia) for up to 5 doses 5 tablet 05/19/2024 08/27/2024 Discontinued Problems Active Problems Problem ClassificationProblemDateDocumented DateEpisodic/Chronic Administrative/social admission (2 sources)Patient encounter status; Translations: [Encounter for blood-alcohol and blood-drug test]11-36-6062AawgsscwYwbnobq disorders (20 sources)Generalized anxiety disorder; Translations: [Generalized anxiety disorder]ChronicAsthma (2 sources)Asthma; Translations: [Unspecified asthma, uncomplicated]10-31-2013 ChronicCoagulation and hemorrhagic disorders (2 sources)Blood coagulation disorder; Translations: [Hemorrhagic condition, unspecified]54-84-7375IfvamskoCmerzxqteyvej and procreative management (4 sources)Sterilization requested; Translations: [Encounter for sterilization] 55-28-5393HvrtttzbOjrhojpcb of teeth and jaw (4 sources)Dental abscess; Translations: [Periapical abscess without sinus] 54-90-0532VwwzcekiMmrpbvdlxjsno (20 sources)Endometriosis (clinical); Translations: [Endometriosis, unspecified] Onset: 67-64-8791OlfncbcAnnwubm on above:Surgical Removal v4Qnuun 4Esophageal disorders (1 source)Gastro-esophageal reflux disease without esophagitis; Translations: [GERD WITHOUT ESOPHAGITIS]Onset: 49-65-2049IfgjyngIubnlsmimwcay symptoms and ill-defined conditions (1 source)Bladder pain; Translations: [Other symptoms and signs involving the genitourinary system]29-65-5181WcfpmsxkHbceojmf; including migraine (17 sources)Migraine; Translations: [Migraine, unspecified, not intractable, without status migrainosus]ChronicHemorrhage during ; abruptio placenta; placenta previa (1 source)Placental nsewqduut13-23-1812DvmbgrprNjrjozvmszuc injury (14 sources)Personal history of traumatic brain injury; Translations: [Traumatic brain injury]EpisodicMalaise and fatigue (6 sources)Fatigue; Translations: [Other fatigue]60-97-0398HfvcftljFakzmvelj disorders (4 sources)Dysmenorrhea; Translations: [Dysmenorrhea, unspecified]Onset: 897145-47-7531RqjzeilJyfy disorders (11 sources)Depressive disorder; Translations: [Depression]30-76-0799Zqzlqfl Comment on above:With manic episodesNutritional deficiencies (2 sources)Serum iron low; Translations: [Iron deficiency]34-12-5530Vffrfvsv Other complications of (1 source)Supervision of other high risk pregnancies, unspecified trimester; Translations: [Supervision of other high risk pregnancies, unspecified trimester]Onset: 23-46-0747WgroxqxwUcyil complications of (1 source)Abnormal ultrasonic finding on screening of mother; Translations: [Abnormal ultrasonic finding on screening of mother] Onset: 90-36-2941EswrlcjyGocnk complications of (1 source)Malformation of placenta, unspecified, second trimester; 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, unspecified, second trimester]Onset: 02-25-2024 EpisodicOther complications of (1 source) with inconclusive viability, other fetus; Translations: [ with inconclusive viability, other fetus]Onset: 75-53-2968FuyegdrzRsgvf complications of (1 source)Supervision of high risk , unspecified, unspecified trimester; Translations: [Supervision of high risk , unspecified, unspecified trimester]Onset: 05-03-5943WnqbyzvhEcekr complications of (1 source)Supervision of other high risk pregnancies, first trimester; Translations: [Supervision of other high risk pregnancies, first trimester] Onset: 85-92-3018EamlslplJcunc complications of (5 sources)Supervision of with other poor reproductive or obstetric history, first trimester; Translations: [ with other poor obstetric history]Onset: 217030-03-1046MveffrzdHhhio complications of (6 sources)H/O: premature delivery; Translations: [Supervision of other high risk pregnancies, unspecified trimester]75-40-9450CctrmmplNdchj connective tissue disease (1 source)Myalgia of pelvic floor; Translations: [Myalgia, other site]11-02-2023 EpisodicOther connective tissue disease (8 sources)Pain in bilateral legs; Translations: [Pain in right leg]06-05-2024 EpisodicOther endocrine disorders (2 sources)Polycystic ovary syndrome; Translations: [Polycystic ovarian syndrome]55-43-8892XrmbpqoZnogo endocrine disorders (2 sources)Disorder of endocrine system; Translations: [Endocrine disorder, unspecified]02-78-1226SdufygjiAalmm female genital disorders (4 sources)Unspecified dyspareunia; Translations: [UNSPECIFIED DYSPAREUNIA] Onset: 90-92-6795PqptxatQbrep female genital disorders (1 source)Pain in female genitalia on intercourse; Translations: [Unspecified dyspareunia]75-78-3667SaiaeyjMoipn female genital disorders (2 sources)Abnormal uterine bleeding; Translations: [Abnormal uterine and vaginal bleeding, unspecified]49-22-6196LxmgythFziyq female genital disorders (6 sources)Vaginal discharge; Translations: [Other specified noninflammatory disorders of vagina]55-94-8316YdmiloalNtood female genital disorders (5 sources)Other specified noninflammatory disorders of vagina; Translations: [Leukorrhea, not specified as infective]Onset: 331878-31-4662WrtsoqgkIjaqg female genital disorders (20 sources)Pain in female pelvis; Translations: [Pelvic pain in female]Onset: 222947-43-1961CidwatraQqxkx nutritional; endocrine; and metabolic disorders (6 sources)History of iron deficiency; Translations: [Personal history of other endocrine, nutritional and metabolic disease]77-94-7721DukbwrlwQpwztzwx codes; unclassified (2 sources)Insomnia; Translations: [Other insomnia]02-72-4069PywjlydIfjhgngf codes; unclassified (2 sources)Personal history of other complications of , childbirth and the puerperium; Translations: [Personal history of other complications of , childbirth and the puerperium]Onset: 10-59-4518GomsrryqCmolxuya codes; unclassified (1 source)18 weeks gestation of ; Translations: [18 weeks gestation of ]Onset: 22-88-0195RtucbkxhXozyqyic codes; unclassified (2 sources)Gestation period, 32 weeks; Translations: [32 weeks gestation of ]65-06-5977IlsmrxylJcpvrlzq codes; unclassified (2 sources)Gestation period, 35 weeks; Translations: [35 weeks gestation of ]93-35-2713VuthotuzNjywdrtl codes; unclassified (2 sources)H/O: miscarriage; Translations: [Personal history of other complications of , childbirth and the puerperium]84-38-7659Isfdavlk Residual codes; unclassified (2 sources)Gestation period, 30 weeks; Translations: [30 weeks gestation of ]51-72-1309PminkvtkIjovlfgk codes; unclassified (2 sources)Swelling; Translations: [Edema, unspecified]52-57-7666Rlocuelh Unclassified (1 source)Details of family - fynonuo63-19-5379Geyszrqkmouo (1 source) restu25-48-5293Lelinepeykle (1 source)hx placenta abruption/ PTDOnset: 01-21-2024 Past or Other Problems Problem ClassificationProblemDateDocumented DateEpisodic/ChronicAbdominal pain (20 sources)Pelvic and perineal pain; Translations: [Pain in pelvis]Onset: 34-82-2347RdqullucQgfitbvmih associated with dizziness or vertigo (20 sources)Dizziness; Translations: [Dizziness and giddiness]Onset: 01-03-2024 51-16-0325FpujjjbpFlaxgqlgnp and other anemia (1 source)Anemia, unspecified; Translations: [ANEMIA UNSPECIFIED]Onset: 33-20-2722VbznfcoyWtyujssv mellitus without complication (2 sources)Abnormal glucose tolerance test; Translations: [Other abnormal glucose]46-50-1898OejfjrwaUnerbohe or abnormal glucose tolerance complicating ; childbirth; or the puerperium (2 sources)Gestational diabetes mellitus; Translations: [Gestational diabetes mellitus in , unspecified control]17-16-7391UkrogbdjRlsrvbdwychrr and screening for infectious disease (1 source)Encounter for screening for human papillomavirus (HPV); Translations: [ENC SCREENING HUMAN PAPILLOMAVIRUS]Onset: 71-85-5492FuslvkxpLqgfvq and vomiting (9 sources)Nausea and vomiting; Translations: [Nausea with vomiting, unspecified]Onset: 483982-02-3743NmnjfqjhBpxtw complications of (20 sources)Vomiting of , unspecified; Translations: [Unspecified vomiting of , unspecified as to episode of care or not applicable] Onset: 183339-19-6249KrekctksIsjgm complications of (20 sources)Heartburn; Translations: [Other specified related conditions, first trimester]Onset: 613134-67-8776JzzluowjPtild complications of (20 sources)High risk ; Translations: [Supervision of other high risk pregnancies, first trimester]Onset: 552213-52-5887DwfpnxouPgncy complications of (20 sources)Abdominal pain in ; Translations: [Other specified related conditions, unspecified trimester]Onset: EpisodicOther complications of (20 sources)Supervision of with other poor reproductive or obstetric history, third trimester; Translations: [ with other poor obstetric history]Onset: 235872-17-9362AoxliqtgQgfvi complications of (3 sources) heart echogenicity on obstetric ultrasound scan; Translations: [Abnormal ultrasonic finding on screening of mother]Onset: 02-25-2024 02-97-8387AvcrmijzNswyt complications of (1 source)Anomaly of placenta; 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, unspecified, second trimester]06-81-2341TqpcfbesAtnpw female genital disorders (1 source)Unspecified hypertrophy of vulva; Translations: [UNSPECIFIED HYPERTROPHY OF VULVA]Onset: 20-81-4126QbaorhnpAmiav non-traumatic joint disorders (20 sources)Hip pain; Translations: [Pain in right hip]Onset: 01-03-2024 23-09-9173ZbfeiytqZkvmj non-traumatic joint disorders (12 sources)Pain in right hip joint; Translations: [Pain in right hip]Onset: 455139-35-8679QcwfdylvPwewe and delivery including normal (20 sources)First trimester ; Translations: [Encounter for supervision of normal , unspecified, first trimester]Onset: EpisodicOther screening for suspected conditions (not mental disorders or infectious disease) (20 sources)Encounter for screening for malignant neoplasm of cervix; Translations: [Encounter for other screening follow-up]Onset: 48-09-6173UxxkulrdJuuqmpxr codes; unclassified (4 sources)Other general symptoms and signs; Translations: [OTHER GENERAL SYMPTOMS AND SIGNS]Onset: 21-53-6579KndefpmnVgjjphrq codes; unclassified (20 sources)History of placental abruption; Translations: [Personal history of other complications of , childbirth and the puerperium]Onset: 698639-98-5192AgrlgayhRpemchux codes; unclassified (20 sources)Gestation period, 24 weeks; Translations: [24 weeks gestation of ]Onset: 410825-64-5411OruyxqopSurqslrb codes; unclassified (2 sources)Gestation period, 26 weeks; Translations: [26 weeks gestation of ]29-87-8443BoiscwsjUsglshla codes; unclassified (1 source)Gestation period, 18 weeks; Translations: [18 weeks gestation of ]94-03-1318KzeyesbjBvnalpiwhqjy (1 source)PregnancyOnset: 08-20-2013 Resolved: Results Test NameValueInterpretationReference RangeFacilityBacteria Vaginosis, NAAon 20-55-1515Czajrkbcq VaginaeLow - 0Normal.The Firsthealth Physician GroupComment on above:Result Comment: This test was developed and its performance characteristics determined by [facility]. It has not been cleared or approved by the Food and Drug Administration.Performed By: #### VAGINOSIS, HUMA,NA #### [facility] ,XXNC1Ikp - 0Normal.The Firsthealth Physician GroupComment on above:Result Comment: This test was developed and its performance characteristics determined by [facility]. It has not been cleared or approved by the Food and Drug Administration.Performed By: #### VAGINOSIS, HUMA,NA #### [facility] ,MegasphaeraLow - 0Normal.The Firsthealth Physician GroupComment on above:Result Comment: This test was developed and its performance characteristics determined by [facility]. It has not been cleared or approved by the Food and Drug Administration. Calculate total score by adding the 3 individual bacterial vaginosis (BV) marker scores together. Total score is interpreted as follows: Total score 0-1: Indicates the absence of BV. Total score 2: Indeterminate for BV. Additional clinical data should be evaluated to establish a diagnosis. Total score 3-6: Indicates the presence of BV.Performed By: #### VAGINOSIS, HUMA,NA #### [facility] ,Huma Albicans+Glabrata, NAAon 96-73-5172Fwfhywn Albicans, NAANegativeNormal NegativeThe Firsthealth Physician GroupComment on above:Result Comment: This test was developed and its performance characteristics determined by [facility]. It has not been cleared or approved by the Food and Drug Administration.Performed By: #### VAGINOSIS, HUMA,NA #### [facility] ,Huma Glabrata, NAANegativeNormalNegativeThe Firsthealth Physician GroupComment on above:Result Comment: This test was developed and its performance characteristics determined by [facility]. It has not been cleared or approved by the Food and Drug Administration. Performed at: =[address] [id number] Sanding Supervisor: Monserrat Velasquez MD, Phone: [phone] PERFORMED BY: [address] [address] PATHOLOGIST ASSEMBLY TECHNICIAN JOANIE MATHIAS M.D.Performed By: #### VAGINOSIS, HUMA,NA #### [facility] ,No Panel InformationOrdered By: Lucila Arnett on 37-97-9969Azmhost albicans (ABBY)NegativeNegativeOhio State East HospitalComment on above: This test was developed and its performance characteristicsdetermined by [facility]. It has not been cleared orapproved by the Food and Drug Administration. Huma glabrata (ABBY)NegativeNegativeOhio State East HospitalComment on above:This test was developed and its performance characteristicsdetermined by [facility]. It has not been cleared orapproved by the Food and Drug Administration.Performed at: =[address] [id number] Director: Monserrat Velasquez MD, Phone: [phone] fluid Atopobium vaginae DNA detection by probe and target amplification methoOrdered By: Lucila Arnett on 09-08-2024. vaginae DNA ABBY+probe Ql (Vag fld) Vaginal fluid Atopobium vaginae DNA detection by probe and target amplification metho.[facility] HospitalComment on above:This test was developed and its performance characteristicsdetermined by [facility]. It has not been cl eared orapproved by the Food and Drug Administration.Vaginal fluid Megasphaera species type 1 DNA detection by probe and target amplificatOrdered By: Lucila Arnett on 16-77-3593Mibekclcufc sp type 1 DNA ABBY+probe Ql (Vag fld)Vaginal fluid Megasphaera species type 1 DNA detection by probe and target amplificat. [facility] HospitalComment on above:This test was developed and its performance characteristicsdetermined by [facility]. It has not been cleared orapproved by the Food and Drug Administration.Calculate total score by adding the 3 individual bacterialvaginosis (BV) marker scores together. Total score isinterpreted as follows:Total score 0-1: Indicates the absence of BV.Total score 2: Indeterminate for BV. Additional clinical data should be evaluated to establish a diagnosis.Total score 3-6: Indicates the presence of BV.Vaginal fluid bacterial vaginosis associated bacterium 2 DNA detection by probe and t Ordered By: Lucila Arnett on 79-15-0261Cktbrktsn vaginosis associated bacterium 2 DNA ABBY+probe Ql (Vag fld)Vaginal fluid bacterial vaginosis associated bacterium 2 DNA detection by probe and t.[facility] HospitalComment on above:This test was developed and its performance characteristicsdetermined by [facility]. It has not been cleared orapproved by the Food and Drug Administration.ALL CBC WITH AUTO DIFFon 91-96-0214ZVLLZEZTB ABSOLUTE AUTO0.1NOMS HealthcareBasophils/100 WBC (Bld)1.2 %0.2 - 2.0 %NOMS HealthcareEosinophils/100 WBC (Bld)2.8 %0.9 - 7.0 %NOMS HealthcareErythrocyte distribution width (RBC) [Ratio]14.1 %11.0 - 15.0 %NOMS HealthcareHematocrit (Bld) [Volume fraction]39.2 %36.0 - 48.0 %NOMS HealthcareHemoglobin (Bld) [Mass/Vol]12.3 g/dL12.0 - 16.0 g/dLSaint Joseph Hospital WestIMMATURE GRANULOCYTES ABS AUTO 0.02NOSSM Health CareImmature granulocytes/100 WBC (Bld)0.4 %0.0 - 0.5 %[facility] WestInterpretation and review of laboratory resultsAbnormalSaint Joseph Hospital West LYMPHOCYTES ABSOLUTE AUTO1.6NOSSM Health CareLymphocytes/100 WBC (Bld)31.5 %20.5 - 60.0 %Christian HospitalH (RBC) [Entitic mass]28.3 pg26.7 - 34.0 pgChristian HospitalHC (RBC) [Mass/Vol]31.4 g/dL29.9 - 35.2 g/dLChristian HospitalV (RBC) [Entitic vol]90.1 fL81.0 - 99.0 fLSaint Joseph Hospital WestMONOCYTES ABSOLUTE AUTO0.6NOCT HealthcareMonocytes/100 WBC (Bld)12 %1.7 - 12.0 %[facility] WestNEUTROPHILS ABSOLUTE AUTO2.6NOSSM Health CareNeutrophils/100 WBC (Bld)52.1 %43.0 - 75.0 %[facility] WestPlatelet mean volume (Bld) [Entitic vol]9.4 fLLow9.5 - 13.5 fLSaint Joseph Hospital WestTBH EO #0.1NOMS [facility] CenterTB [id number] Francis Hospital & Health Services RBC4.35NOMS [facility] CenterTB [id number] Health CareCLINISYNCNOMS HealthcareBasophils Auto (Bld) [#/Vol]on 57-82-9808Gklzazmur (Bld) [#/Vol]Automated basophil count0.0-0.1 [facility] HospitalBasophils/100 WBC Auto (Bld)on 08-29-2024 Basophils/100 WBC (Bld)Automated basophil %0.2-2.0[facility] HospitalEosinophils/100 WBC Auto (Bld)on 49-39-6737Kgabfnjogdy/100 WBC (Bld) Automated eosinophil %0.9-7.0[facility] HospitalErythrocyte distribution width Auto (RBC) [Ratio]on 35-11-1119Cczyhlxkglq distribution width (RBC) [Ratio]Erythrocyte distribution width [Ratio] by Automated count11.0-15.0 [facility] HospitalEstimated glomerular filtration rate (GFR) non- Americanon 15-55-7254XHE/1.73 sq M.predicted among non-blacks MDRD (S/P/Bld) [Vol rate/Area]Estimated glomerular filtration rate (GFR) non->=60 mL/min/1.73m 2FOhioHealth Riverside Methodist HospitalHematocrit Auto (Bld) [Volume fraction]on 49-17-2374Arxcnjkqmj (Bld) [Volume fraction]Hematocrit [Volume Fraction] of Blood by Automated count36.0-48.0[facility] HospitalHemoglobin [Mass/volume] in Bloodon 61-98-8792Cujvsucqtx (Bld) [Mass/Vol] Hemoglobin [Mass/volume] in Blood12.0-16.0[facility] Laboratory - Chemistry and Chemistry - challengeon 03-77-3495UET [Catalytic activity/Vol]19 U/Q55-82DdvrhwkfbOhio State East HospitalCreatinine [Mass/Vol] 0.88 mg/dL0.55-1.02[facility] HospitalFree T4 [Mass/Vol]0.91 ng/dL 0.76-1.46[facility] HospitalGFR/1.73 sq M.predicted MDRD (S/P/Bld) [Vol rate/Area]mL/min/{1.73_m2}>=60 mL/min/1.73m 2FOhioHealth Riverside Methodist HospitalTSH Qn0.997 m[IU]/L0.358-3.740[facility] HospitalUrea nitrogen [Mass/Vol]7.0 mg/dL7.0-18.0[facility] HospitalLaboratory - Hematology and Cell countson 15-16-4109Aikhjlsr granulocytes/100 WBC (Bld)0.4 %0.0-0.5FOhioHealth Riverside Methodist HospitalLeukocytes [#/volume] corrected for nucleated erythrocytes in Blood by Automated counon 92-07-8745LUD corrected for nucl RBC Auto (Bld) [#/Vol]Leukocytes [#/volume] corrected for nucleated erythrocytes in Blood by Automated coun4.0-11.0[facility] Lymphocytes Auto (Bld) [#/Vol]on 60-93-0199Vfoaseqmvpy (Bld) [#/Vol]Lymphocytes [#/volume] in Blood by Automated count1.2-3.8[facility] Lymphocytes/100 WBC Auto (Bld)on 14-28-8077Rpfrajtjcss/100 WBC (Bld) Lymphocytes/100 leukocytes in Blood by Automated count20.5-60.0[facility] HospitalH Auto (RBC) [Entitic mass]on 98-83-3375WTU (RBC) [Entitic mass]MCH [Entitic mass] by Automated count26.7-34.0[facility] HospitalMCHC Auto (RBC) [Mass/Vol]on 92-98-1572MDXU (RBC) [Mass/Vol]MCHC [Mass/volume] by Automated count29.9-35.2FOhioHealth Riverside Methodist HospitalMCV Auto (RBC) [Entitic vol]on 24-01-2806AGC (RBC) [Entitic vol]MCV [Entitic volume] by Automated count81.0-99.0[facility] HospitalMonocytes Auto (Bld) [#/Vol]on 53-57-2303Jxebdclul (Bld) [#/Vol]Automated blood monocyte count0.3-0.8 [facility] HospitalMonocytes/100 WBC Auto (Bld)on 08-29-2024 Monocytes/100 WBC (Bld)Automated monocyte %1.7-12.0[facility] HospitalNeutrophils Auto (Bld) [#/Vol]on 08-22-0039Wgzvdoyfatr (Bld) [#/Vol] Neutrophils [#/volume] in Blood by Automated count1.4-6.5FOhioHealth Riverside Methodist HospitalNeutrophils/100 WBC Auto (Bld)on 44-93-2689Dlstbbiearr/100 WBC (Bld)Automated neutrophil %43.0-75.0[facility] HospitalNo Panel Informationon 95-52-7875Hjlzgdflmdo # (Auto)0.1 10 3/uL0.0-0.7FOhioHealth Riverside Methodist HospitalImmature Granulocyte # (Auto)0.02 10 3/uL0.00-0.03[facility] HospitalPlatelet mean volume Auto (Bld) [Entitic vol]on 11-92-7721Yhjdcfzv mean volume (Bld) [Entitic vol]Platelet mean volume [Entitic volume] in Blood by Automated countLow9.5-13.5FOhioHealth Riverside Methodist Hospital Platelets Auto (Bld) [#/Vol]on 41-19-0083Yrwpksnae (Bld) [#/Vol]Platelets [#/volume] in Blood by Automated mzayi919-295TfvxlvslkOhio State East Hospital RBC Auto (Bld) [#/Vol]on 03-21-4749EPF (Bld) [#/Vol]Erythrocytes [#/volume] in Blood by Automated count4.20-5.40[facility] HospitalALL CBC WITH AUTO DIFFon 03-33-7948YVRIMDGHA ABSOLUTE AUTO0.1NOMS HealthcareBasophils/100 WBC (Bld)1.2 %0.2 - 2.0 %NOMWashington County Memorial HospitalEosinophils/100 WBC (Bld)4.3 %0.9 - 7.0 % [facility] WestErythrocyte distribution width (RBC) [Ratio]13.4 %11.0 - 15.0 % [facility] WestHematocrit (Bld) [Volume fraction]39 %36.0 - 48.0 %[facility] WestHemoglobin (Bld) [Mass/Vol]12.4 g/dL12.0 - 16.0 g/dLSaint Joseph Hospital West IMMATURE GRANULOCYTES ABS AUTO0.02NOSSM Health CareImmature granulocytes/100 WBC (Bld)0.3 %0.0 - 0.5 %[facility] WestInterpretation and review of laboratory resultsAbnormalNOSSM Health CareLYMPHOCYTES ABSOLUTE AUTO1.9NOMS [facility] Lymphocytes/100 WBC (Bld)28.8 %20.5 - 60.0 %Christian HospitalH (RBC) [Entitic mass]29.1 pg26.7 - 34.0 pgNOSSM Health CareMCHC (RBC) [Mass/Vol]31.8 g/dL29.9 - 35.2 g/dLSaint Joseph Hospital WestMCV (RBC) [Entitic vol]91.5 fL81.0 - 99.0 fLNOSSM Health CareMONOCYTES ABSOLUTE AUTO0.8NOMS HealthcareMonocytes/100 WBC (Bld)11.5 % 1.7 - 12.0 %NOM[facility] HealthcareNEUTROPHILS ABSOLUTE AUTO3.5[facility] Neutrophils/100 WBC (Bld)53.9 %43.0 - 75.0 %[facility] HealthcarePlatelet mean volume (Bld) [Entitic vol]9.1 fLLow9.5 - 13.5 fLNOMS HealthcareTBH EO #0.3NOMS HealthcareTBH [id number] HealthcareTBH RBC4.26NOMS HealthcareTBH WBC6.5NOCT HealthcareCLINISYNCNOMS HealthcareBasophils Auto (Bld) [#/Vol]on 08-01-2024 Basophils (Bld) [#/Vol]Automated basophil count0.0-0.1FOhioHealth Riverside Methodist HospitalBasophils/100 WBC Auto (Bld)on 28-44-3561Uqmdeykkh/100 WBC (Bld)Automated basophil %0.2-2.0[facility] HospitalEosinophils/100 WBC Auto (Bld)on 56-48-2432Yuxfbnsbnaj/100 WBC (Bld)Automated eosinophil %0.9-7.0 [facility] HospitalErythrocyte distribution width Auto (RBC) [Ratio]on 99-30-3407Kvqzjpnpubf distribution width (RBC) [Ratio]Erythrocyte distribution width [Ratio] by Automated count11.0-15.0[facility] HospitalHematocrit Auto (Bld) [Volume fraction]on 38-36-9933Ebpkmhcame (Bld) [Volume fraction]Hematocrit [Volume Fraction] of Blood by Automated count 36.0-48.0[facility] HospitalHemoglobin [Mass/volume] in Bloodon 01-16-6872Psehkjobng (Bld) [Mass/Vol]Hemoglobin [Mass/volume] in Blood12.0-16.0 [facility] HospitalLaboratory - Hematology and Cell countson 13-70-6645Cqnodwqc granulocytes/100 WBC (Bld)0.3 %0.0-0.5FOhioHealth Riverside Methodist HospitalLeukocytes [#/volume] corrected for nucleated erythrocytes in Blood by Automated counon 88-94-5070MIH corrected for nucl RBC Auto (Bld) [#/Vol]Leukocytes [#/volume] corrected for nucleated erythrocytes in Blood by Automated coun4.0-11.0[facility] HospitalLymphocytes Auto (Bld) [#/Vol]on 63-53-1363Mseqtgglugd (Bld) [#/Vol]Lymphocytes [#/volume] in Blood by Automated count1.2-3.8[facility] HospitalLymphocytes/100 WBC Auto (Bld)on 56-86-0091Accymhuxrcl/100 WBC (Bld)Lymphocytes/100 leukocytes in Blood by Automated count20.5-60.0[facility] HospitalH Auto (RBC) [Entitic mass]on 82-20-5530KPE (RBC) [Entitic mass]MCH [Entitic mass] by Automated count26.7-34.0[facility] HospitalMCHC Auto (RBC) [Mass/Vol]on 48-67-0255JJNI (RBC) [Mass/Vol]MCHC [Mass/volume] by Automated count29.9-35.2FOhioHealth Riverside Methodist HospitalMCV Auto (RBC) [Entitic vol]on 86-18-6809JTA (RBC) [Entitic vol]MCV [Entitic volume] by Automated count 81.0-99.0[facility] HospitalMonocytes Auto (Bld) [#/Vol]on 66-85-7694Gqkwbsjif (Bld) [#/Vol]Automated blood monocyte count0.3-0.8[facility] HospitalMonocytes/100 WBC Auto (Bld)on 19-33-2244Aztkaantz/100 WBC (Bld)Automated monocyte %1.7-12.0[facility] Neutrophils Auto (Bld) [#/Vol]on 09-24-7394Ywuawyomdqo (Bld) [#/Vol]Neutrophils [#/volume] in Blood by Automated count1.4-6.5FOhioHealth Riverside Methodist Hospital Neutrophils/100 WBC Auto (Bld)on 50-34-8927Uvhcxkmvmuq/100 WBC (Bld)Automated neutrophil %43.0-75.0[facility] HospitalNo Panel Informationon 10-51-5584Keisojrzxba # (Auto)0.3 10 3/uL0.0-0.7FOhioHealth Riverside Methodist HospitalImmature Granulocyte # (Auto)0.02 10 3/uL0.00-0.03[facility] HospitalPlatelet mean volume Auto (Bld) [Entitic vol]on 57-71-4060Dswkgrvg mean volume (Bld) [Entitic vol]Platelet mean volume [Entitic volume] in Blood by Automated countLow9.5-13.5FOhioHealth Riverside Methodist HospitalPlatelets Auto (Bld) [#/Vol]on 47-22-4560Bmdpzozyn (Bld) [#/Vol]Platelets [#/volume] in Blood by Automated -411GhlpyqumsOhio State East HospitalRBC Auto (Bld) [#/Vol]on 65-19-0755SVE (Bld) [#/Vol]Erythrocytes [#/volume] in Blood by Automated count 4.20-5.40[facility] HospitalUS PELVIS TRANSVAGINALon 69-48-9656[place] [address] Ultrasound Report Signed Patient: COLTON MEDRANO MR#: [id number] : 1995 Acct:[id number] Age/Sex: 28 / F ADM Date: 08/01/24 Loc: US Attending Dr: Moi Rueda D.O. Ordering Physician: Moi Rueda D.O. Date of Service: 08/01/24 Procedure(s): US pelvis transvaginal Accession Number(s): [id number] cc: Moi Rueda D.O.; LUCILA ARNETT [place] [phone] Patient Name: COLTON MEDRANO MRN: [id number] date: 1995 Sex: F Assigned Patient Location: US Current Patient Location: US Accession/Order Number: [id number] Exam Date: 08/01/2024 11:32 Report Date: 08/01/2024 15:45 At the request of: MOI RUEDA Procedure: US pelvis transvaginal EXAMINATION: US [...] Signed By: 08/01/24 1548 DD/ 1545 TD/TT: Water Systems Engineer:TBHRadiology, Radiologist, - 08/01/2024 [place] [address] Ultrasound Report Signed Patient: COLTON MEDRANO MR#: [id number] : 1995 Acct:[id number] Age/Sex: 28 / F ADM Date: 08/01/24 Loc: US Attending Dr: Moi Rueda D.O. Ordering Physician: Moi Rueda D.O. Date of Service: 08/01/24 Procedure(s): US pelvis transvaginal Accession Number(s): [id number] cc: Moi Rueda D.O.; LUCILA ARNETT [place] [phone] Patient Name: COLTON MEDRANO MRN: [id number] date: 1995 Sex: F Assigned Patient Location: US Current Patient Location: US Accession/Order Number: [id number] Exam Date: 08/01/2024 11:32 Report Date: 08/01/2024 15:45 At the request of: MOI RUEDA Procedure: US pelvis transvaginal EXAMINATION: US [...] Signed By: 08/01/24 1548 DD/ 1545 TD/TT: Water Systems Engineer: [facility] WestRadiology Study observation (narrative)[facility] WestUS PELVIS TRANSVAGINALOrdered By: Radiologist Radiology on 04-83-1519VKFFSaint Joseph Hospital West Work Phone: Urinalysis macro (dipstick) panel (U)on 07-30-2024 Bilirubin, UANegativeNegative - 4(70) +++ mg/dLNOMS HealthcareBlood, UAPositive Negative - 50 Jt/mcLNOCT HealthcareClarity, UAClearNOMS HealthcareColor, UA YellowNOMS HealthcareGlucose, UANegativeNegative - 2000(110) ++++ mg/dLNOCT HealthcareInterpretation and review of laboratory resultsAbnormalNOCT Healthcare Ketones, UANegativeNegative - 160(16) ++++ mg/dLNOCT HealthcareLeukocytes, UA NegativeNegative - 500+++ [place]/mcLNOMS HealthcareNitrite, UANegativeNegative - PositiveNOMS HealthcarepH, UA5.55 - 9NOMS HealthcareProtein, UANegativeNegative - 2000(20) ++++ mg/dLNOMS HealthcareSpec Grav, UA1.021 - 1.03N[facility] Urobilinogen, UA1.00.2 - 12 mg/dLNOCT HealthcareNOMS HealthcareALL CBC WITH AUTO DIFFon 42-18-5974NFPETCXOE ABSOLUTE AUTO0.1NOMS HealthcareBasophils/100 WBC (Bld)0.4 %0.2 - 2.0 %NOM HealthcareEosinophils/100 WBC (Bld)1.7 %0.9 - 7.0 % [facility] WestErythrocyte distribution width (RBC) [Ratio]12.5 %11.0 - 15.0 % [facility] HealthcareHematocrit (Bld) [Volume fraction]25.5 %Low36.0 - 48.0 %[facility] WestHemoglobin (Bld) [Mass/Vol]8.4 g/dLLow12.0 - 16.0 g/dLSaint Joseph Hospital West IMMATURE GRANULOCYTES ABS AUTO0.26HighSaint Joseph Hospital WestImmature granulocytes/100 WBC (Bld)2.1 %High0.0 - 0.5 %[facility] WestInterpretation and review of laboratory resultsAbnormalNOSSM Health CareLYMPHOCYTES ABSOLUTE AUTO2.4NOMS [facility]opedic CenterLymphocytes/100 WBC (Bld)19.5 %Low20.5 - 60.0 %Christian HospitalH (RBC) [Entitic mass]30 pg26.7 - 34.0 pgChristian HospitalHC (RBC) [Mass/Vol]32.9 g/dL29.9 - 35.2 g/dLSaint Joseph Hospital WestMCV (RBC) [Entitic vol]91.1 fL81.0 - 99.0 fL [facility] WestMONOCYTES ABSOLUTE AUTO1.2HighAMERICAN FORK [facility]OSPITAL HealthcareMonocytes/100 WBC (Bld)9.3 %1.7 - 12.0 %[facility] WestNEUTROPHILS ABSOLUTE AUTO8.4HighNOSSM Health CareNeutrophils/100 WBC (Bld)67 %43.0 - 75.0 %[facility] WestPlatelet mean volume (Bld) [Entitic vol]9.3 fLLow9.5 - 13.5 fLSaint Joseph Hospital WestTB EO #0.2NOMS HealthcareTBH [id number] [facility] RBC2.8LowNOSaint Francis Hospital & Health Services WBC12.5High [facility] WestCLINISYNCNOMS HealthcareBasophils Auto (Bld) [#/Vol]on 07-07-2024 Basophils (Bld) [#/Vol]Automated basophil count0.0-0.1FOhioHealth Riverside Methodist HospitalBasophils/100 WBC Auto (Bld)on 84-48-4453Nlwlnxqis/100 WBC (Bld)Automated basophil %0.2-2.0[facility] HospitalEosinophils/100 WBC Auto (Bld)on 42-29-0524Hicufsjxuho/100 WBC (Bld)Automated eosinophil %0.9-7.0 [facility] HospitalErythrocyte distribution width Auto (RBC) [Ratio]on 69-66-8757Nutsyeegpwg distribution width (RBC) [Ratio]Erythrocyte distribution width [Ratio] by Automated count11.0-15.0[facility] HospitalHematocrit Auto (Bld) [Volume fraction]on 67-56-8008Rozwhtxwhc (Bld) [Volume fraction]Hematocrit [Volume Fraction] of Blood by Automated countLow 36.0-48.0[facility] HospitalHemoglobin [Mass/volume] in Bloodon 87-75-3490Xljiegtjst (Bld) [Mass/Vol]Hemoglobin [Mass/volume] in BloodLow 12.0-16.0[facility] HospitalLaboratory - Hematology and Cell countson 35-45-1069Cphxdxae granulocytes/100 WBC (Bld)2.1 %High0.0-0.5FOhioHealth Riverside Methodist HospitalLeukocytes [#/volume] corrected for nucleated erythrocytes in Blood by Automated counon 46-56-3917IDF corrected for nucl RBC Auto (Bld) [#/Vol]Leukocytes [#/volume] corrected for nucleated erythrocytes in Blood by Automated counHigh4.0-11.0[facility] HospitalLymphocytes Auto (Bld) [#/Vol]on 03-64-8620Ulibfoqqzyu (Bld) [#/Vol]Lymphocytes [#/volume] in Blood by Automated count1.2-3.8[facility] Lymphocytes/100 WBC Auto (Bld)on 71-16-2291Wtlyvyyzqes/100 WBC (Bld) Lymphocytes/100 leukocytes in Blood by Automated rliqaKnk39.5-60.0[facility] HospitalMCH Auto (RBC) [Entitic mass]on 49-04-4461VSG (RBC) [Entitic mass]MCH [Entitic mass] by Automated count26.7-34.0[facility] HospitalMCHC Auto (RBC) [Mass/Vol]on 36-02-5698TVAP (RBC) [Mass/Vol]MCHC [Mass/volume] by Automated count29.9-35.2FOhioHealth Riverside Methodist HospitalMCV Auto (RBC) [Entitic vol]on 21-92-4647OYM (RBC) [Entitic vol]MCV [Entitic volume] by Automated count81.0-99.0[facility] HospitalMonocytes Auto (Bld) [#/Vol]on 36-78-7385Kdakikyth (Bld) [#/Vol]Automated blood monocyte countHigh 0.3-0.8[facility] HospitalMonocytes/100 WBC Auto (Bld)on 34-88-0074Suxtqvmvu/100 WBC (Bld)Automated monocyte %1.7-12.0[facility] HospitalNeutrophils Auto (Bld) [#/Vol]on 97-55-0933Byghaeyddzt (Bld) [#/Vol]Neutrophils [#/volume] in Blood by Automated countHigh1.4-6.5FOhioHealth Riverside Methodist HospitalNeutrophils/100 WBC Auto (Bld)on 07-07-2024 Neutrophils/100 WBC (Bld)Automated neutrophil %43.0-75.0[facility] HospitalNo Panel Informationon 11-21-5318Ovoojcvxooy # (Auto)0.2 10 3/uL 0.0-0.7FOhioHealth Riverside Methodist HospitalImmature Granulocyte # (Auto)0.26 10 3/uLHigh0.00-0.03[facility] HospitalPlatelet mean volume Auto (Bld) [Entitic vol]on 49-83-9764Yfpstgla mean volume (Bld) [Entitic vol]Platelet mean volume [Entitic volume] in Blood by Automated countLow9.5-13.5FOhioHealth Riverside Methodist HospitalPlatelets Auto (Bld) [#/Vol]on 44-10-2801Kkhphetro (Bld) [#/Vol]Platelets [#/volume] in Blood by Automated -623MawpvbeqcOhio State East HospitalRBC Auto (Bld) [#/Vol]on 22-82-8318GQO (Bld) [#/Vol]Erythrocytes [#/volume] in Blood by Automated countLow4.20-5.40[facility] HospitalBuprenorphine [Presence] in Urineon 38-04-9889Ctyacnfwvgien Ql (U) Buprenorphine [Presence] in UrineNEGATIVEOhio State East Hospital Comment on above:DRUG CLASS TEST SYSTEM CUT-OFF CONCENTRATIONS ARE ASFOLLOWS:AMP (Amphetamine): 500 ng/mLBAR (Barbiturates): 200 ng/mLBZO (Benzodiazepines): 150 ng/mLBUP (Buprenorphine): 10 ng/mLCOC (Cocaine): 150 ng/mLmAMP (Methamphetamine): 500 ng/mLMTD (Methadone): 200 ng/mLOPI (Opiates): 100 ng/mLOXY (Oxycodone): 100 ng/mLPCP (Phencyclidine): 25 ng/mLTHC (Cannabinoids): 50 ng/mLTCA (Trycyclic Antidepressants): 300 ng/mLErythrocyte distribution width Auto (RBC) [Ratio]on 57-91-0672Hxyuqfcuaei distribution width (RBC) [Ratio] Erythrocyte distribution width [Ratio] by Automated count11.0-15.0[facility] CBC WITH PLATELET NO DIFFERENTIALon 07-06-2024 Erythrocyte distribution width (RBC) [Ratio]12.5 %11.0 - 15.0 %[facility] Hematocrit (Bld) [Volume fraction]30.2 %Low36.0 - 48.0 %[facility] Hemoglobin (Bld) [Mass/Vol]10.1 g/dLLow12.0 - 16.0 g/dLSaint Joseph Hospital West Interpretation and review of laboratory resultsAbnormalChristian HospitalH (RBC) [Entitic mass]30.2 pg26.7 - 34.0 pgChristian HospitalHC (RBC) [Mass/Vol]33.4 g/dL 29.9 - 35.2 g/dLChristian HospitalV (RBC) [Entitic vol]90.4 fL81.0 - 99.0 fLSaint Joseph Hospital WestPlatelet mean volume (Bld) [Entitic vol]9.1 fLLow9.5 - 13.5 fLOzarks Medical Center FIF792XVUUSaint Francis Hospital & [facility] Services RBC3.34LowNOSSM Health CareTB WBC8.6NOCT HealthcareCLINISYNCNOMS HealthcareHematocrit Auto (Bld) [Volume fraction]on 65-45-4890Wajeefuymw (Bld) [Volume fraction]Hematocrit [Volume Fraction] of Blood by Automated wnmxcZhq38.0-48.0[facility] HospitalHemoglobin [Mass/volume] in Bloodon 19-04-1638Bqnllvgrqz (Bld) [Mass/Vol]Hemoglobin [Mass/volume] in OybaeSfb21.0-16.0[facility] HospitalLaboratory - Drug toxicologyon 21-76-0994Elnjtxwpotci Ql (U)NegativeNEGSelect Medical Specialty Hospital - CantonBenzodiazepines Ql (U)NegativeNEGSelect Medical Specialty Hospital - CantonCocaine Ql (U)NegativeNEGSelect Medical Specialty Hospital - Canton Opiates Ql (U)NegativeNEGSelect Medical Specialty Hospital - CantonPhencyclidine Ql (U)NegativeNEGSelect Medical Specialty Hospital - CantonLeukocytes [#/volume] corrected for nucleated erythrocytes in Blood by Automated counon 40-28-3729ZNS corrected for nucl RBC Auto (Bld) [#/Vol]Leukocytes [#/volume] corrected for nucleated erythrocytes in Blood by Automated coun4.0-11.0[facility] HospitalH Auto (RBC) [Entitic mass]on 05-37-4670EWP (RBC) [Entitic mass] MCH [Entitic mass] by Automated count26.7-34.0[facility] MCHC Auto (RBC) [Mass/Vol]on 76-94-3497EZYT (RBC) [Mass/Vol]MCHC [Mass/volume] by Automated count29.9-35.2FOhioHealth Riverside Methodist HospitalMCV Auto (RBC) [Entitic vol]on 08-94-0283NYH (RBC) [Entitic vol]MCV [Entitic volume] by Automated count81.0-99.0[facility] HospitalMethadone [Presence] in Urine by Screen methodon 53-39-2494Fnskrhzpi Screen Ql (U)Methadone [Presence] in Urine by Screen methodNEGATIVEOhio State East HospitalNo Panel Informationon 37-07-2767Mjhil Barbiturates ScreenNegativeNEGATIVEOhio State East HospitalUrine Marijuana (THC) ScreenNegativeNEGATIVEOhio State East HospitalUrine Methamphetamines ScreenNegativeNEGATIVEOhio State East HospitalPlatelet mean volume Auto (Bld) [Entitic vol]on 28-82-9312Nepphnah mean volume (Bld) [Entitic vol]Platelet mean volume [Entitic volume] in Blood by Automated countLow9.5-13.5FOhioHealth Riverside Methodist Hospital Platelets Auto (Bld) [#/Vol]on 10-07-8430Yyeaqsyld (Bld) [#/Vol]Platelets [#/volume] in Blood by Automated tuunv558-942YxylyrdlxOhio State East Hospital RBC Auto (Bld) [#/Vol]on 68-10-9832YIV (Bld) [#/Vol]Erythrocytes [#/volume] in Blood by Automated countLow4.20-5.40[facility] HospitalTBH DRUG SCREEN RAPID (URINE)on 18-43-4864UUWKYDNBAMA SCREEN URINENegativeNEGATIVENOMS HealthcareBARBITURATES SCREEN URINENegativeNEGATIVENOMS Healthcare BENZODIAZEPINES SCREEN URINENegativeNEGATIVENOMS HealthcareBUPRENORPHINE SCREEN URINENegativeNEGATIVENOMS HealthcareComment on above:DRUG CLASS TEST SYSTEM CUT- OFF CONCENTRATIONS ARE FOLLOWS: AMP (Amphetamine): 500 ng/mL BAR (Barbiturates): 200 ng/mL BZO (Benzodiazepines): 150 ng/mL BUP (Buprenorphine): 10 ng/mL JIMBO (Cocaine): 150 ng/mL mAMP (Methamphetamine): 500 ng/mL MTD (Methadone): 200 ng/mL OPI (Opiates): 100 ng/mL OXY (Oxycodone): 100 ng/mL PCP (Phencyclidine): 25 ng/mL THC (Cannabinoids): 50 ng/mL TCA (Trycyclic Antidepressants): 300 ng/mL CANNABINOID SCREEN URINENegativeNEGATIVENOMS HealthcareCOCAINE SCREEN URINE NegativeNEGATIVENOMS HealthcareMETHADONE SCREEN URINENegativeNEGATIVENOMS HealthcareMETHAMPHETAMINES SCREEN URINENegativeNEGATIVENOMS HealthcareOPIATE SCREEN URINENegativeNEGATIVENOMS HealthcareOXYCODONE SCREEN URINENegative NEGATIVENOMS HealthcarePHENCYCLIDINE SCREEN URINENegativeNEGATIVENOMS Healthcare TRICYCLIC ANTIDEPRESSANT URINENegativeNEGATIVENOMS HealthcareCLINISYNCNOMS HealthcareUrine tricyclic antidepressant measurementon 50-70-8971Tyxuiddxn antidepressants (U) [Mass/Vol]Urine tricyclic antidepressant measurementNEGATIVE [facility] HospitaloxyCODONE+oxyMORphone [Presence] in Urine by Screen methodon 80-35-5350mbmSLKYMH+oxyMORphone Screen Ql (U) oxyCODONE+oxyMORphone [Presence] in Urine by Screen methodNEGATIVEOhio State East HospitalUS OB BPP W NON-STRESSon 00-62-1243GtpWind[place] [address] Ultrasound Report Signed Patient: COLTON MEDRANO MR#: [id number] : 1995 Acct:[id number] Age/Sex: 28 / F ADM Date: 07/03/24 Loc: US Attending Dr: Moi Rueda D.O. Ordering Physician: Moi Rueda D.O. Date of Service: 07/03/24 Procedure(s): US OB BPP w non-stress Accession Number(s): [id number] cc: Moi Rueda D.O.; LUCILA ARNETT [place] [address] Patient Name: COLTON MEDRANO MRN: [id number] date: 1995 Sex: F Assigned Patient Location: [facility] Current Patient Location: US Accession/Order Number: [id number] Exam Date: 07/03/2024 10:55 Report Date: 07/04/2024 04:14 At the request of: MOI RUEDA Procedure: US OB BPP w non-stress [...] biophysical profile score: 8 Electronically authenticated by: ISIAH SAXENA Date: 07/04/2024 04:14 Dictated By: Isiah Saxena M.D. Signed By: 07/04/24415 DD/ 3 TD/TT: Water Systems Engineer:TERRIadiologJohanna gould, - 07/04/2024 [place] [address] Ultrasound Report Signed Patient: COLTON MEDRANO MR#: [id number] : 1995 Acct:[id number] Age/Sex: 28 / F ADM Date: 07/03/24 Loc: US Attending Dr: Moi Rueda D.O. Ordering Physician: Moi Rueda D.O. Date of Service: 07/03/24 Procedure(s): US OB BPP w non-stress Accession Number(s): [id number] cc: Moi Rueda D.O.; LUCILA ARNETT [place] [address] Patient Name: COLTON MEDRANO MRN: [id number] date: 1995 Sex: F Assigned Patient Location: [facility] Current Patient Location: Accession/Order Number: [id number] Exam Date: 07/03/2024 10:55 Report Date: 07/04/2024 04:14 At the request of: MOI RUEDA Procedure: US OB BPP w non-stress [...] biophysical profile score: 8 Electronically authenticated by: ISIAH SAXENA Date: 07/04/2024 04:14 Dictated By: Isiah Saxena M.D. Signed By: 07/04/24415 DD/ 3 TD/TT: Water Systems Engineer: CULLEN HealthcareRadiology Study observation (narrative)CULLEN Velasco OB BPP W NON-STRESSOrdered By: Radiologist Radiology on 91-36-6096DGZA Healthcare Work Phone: US OB GROWTHon [phone], [place] [address] Ultrasound Report Signed Patient: COLTON MEDRANO MR#: [id number] : 1995 Acct:[id number] Age/Sex: 28 / F ADM Date: 06/30/24 Loc: [facility] Attending Dr: Moi Rueda D.O. Ordering Physician: Moi Rueda D.O. Date of Service: 06/30/24 Procedure(s): US OB growth Accession Number(s): [id number] cc: Moi Rueda D.O.; LUCILA ARNETT [place] [address] Patient Name: COLTON MEDRANO MRN: [id number] date: 1995 Sex: F Assigned Patient Location: [facility] Current Patient Location: [facility] Accession/Order Number: [id number] Exam Date: 06/30/2024 09:50 Report Date: 06/30/2024 10:15 At the request of: MOI RUEDA Procedure: US OB growth EXAMINATION: US [...] Signed By: 06/30/24 1017 DD/ 1015 TD/TT: Water Systems Engineer:TBHRadiology, Radiologist, - 06/30/2024 [place] [address] Ultrasound Report Signed Patient: COLTON MEDRANO MR#: [id number] : 1995 Acct:[id number] Age/Sex: 28 / F ADM Date: 06/30/24 Loc: NOMS Attending Dr: Moi Rueda D.O. Ordering Physician: Moi Rueda D.O. Date of Service: 06/30/24 Procedure(s): US OB growth Accession Number(s): [id number] cc: Moi Rueda D.O.; LUCILA ARNETT [place] [address] Patient Name: COLTON MEDRANO MRN: [id number] date: 1995 Sex: F Assigned Patient Location: [facility] Current Patient Location: [facility] Accession/Order Number: [id number] Exam Date: 06/30/2024 09:50 Report Date: 06/30/2024 10:15 At the request of: MOI RUEDA Procedure: US OB growth EXAMINATION: US [...] Signed By: 06/30/24 1017 DD/ 1015 TD/TT: Water Systems Engineer: CULLEN HealthcareRadiology Study observation (narrative)NOM HealthcareUS OB GROWTHOrdered By: Radiologist Radiology on 81-41-7397SQZVSaint Joseph Hospital West Work Phone: Urinalysis macro (dipstick) panel (U)on 06-30-2024 Bilirubin, UANegativeNegative - 4(70) +++ mg/dLNOMS HealthcareBlood, UAPositive Negative - 50 Jt/mcLNOMS HealthcareClarity, UAClearNOMS HealthcareColor, UA YellowNOMS HealthcareGlucose, UANegativeNegative - 2000(110) ++++ mg/dLNOMS HealthcareInterpretation and review of laboratory resultsAbnormalNOMS Healthcare Ketones, UANegativeNegative - 160(16) ++++ mg/dLNOMS HealthcareLeukocytes, UA NegativeNegative - 500+++ [place]/mcLNOMS HealthcareNitrite, UANegativeNegative - PositiveNOMS HealthcarepH, UA75 - 9NOMS HealthcareProtein, UATraceNegative - 2000(20) ++++ mg/dLNOMS HealthcareSpec Grav, UA1.021 - 1.03NOMS Healthcare Urobilinogen, UA1.00.2 - 12 mg/dLNOMS HealthcareNOMS HealthcareUS OB BPP W NON-STRESSon 96-76-8323[place] [id number] Ultrasound Report Signed Patient: COLTON MEDRANO MR#: [id number] : 1995 Acct:[id number] Age/Sex: 28 / F ADM Date: 06/27/24 Loc: [facility] 250-[address]: Moi Rueda D.O. Ordering Physician: Moi Rueda D.O. Date of Service: 06/27/24 Procedure(s): US OB BPP w non-stress Accession Number(s): [id number] cc: Moi Rueda D.O.; LUCILA ARNETT [place] [address] Patient Name: COLTON MEDRANO MRN: [facility]:[id number] date: 1995 Sex: F Assigned Patient Location: [facility] Current Patient Location: [facility] Accession/Order Number: [id number] Exam Date: 06/27/2024 11:00 Report Date: 06/27/2024 11:49 At the request of: MOI RUEDA Procedure: US OB BPP w non-stress [...] biophysical profile score: 8 Electronically authenticated by: ISIAH SAXENA Date: 06/27/2024 11:49 Dictated By: Isiah Saxena M.D. Signed By: 06/27/24 1152 DD/ 1149 TD/TT: Water Systems Engineer:TERRIadiologluis fernando, Radiologist, - 06/27/2024 [place] [address] Ultrasound Report Signed Patient: COLTON MEDRANO MR#: [id number] : 1995 Acct:[id number] Age/Sex: 28 / F ADM Date: 06/27/24 Loc: [facility] 250-[address]: Moi Rueda D.O. Ordering Physician: Moi Rueda D.O. Date of Service: 06/27/24 Procedure(s): US OB BPP w non-stress Accession Number(s): [id number] cc: Moi Rueda D.O.; LUCILA ARNETT [place] [address] Patient Name: COLTON MEDRANO MRN: [id number] date: 1995 Sex: F Assigned Patient Location: [facility] Current Patient Location: [facility] Accession/Order Number: [id number] Exam Date: 06/27/2024 11:00 Report Date: 06/27/2024 11:49 At the request of: MOI RUEDA Procedure: US OB BPP w non-stress [...] biophysical profile score: 8 Electronically authenticated by: ISIAH SAXENA Date: 06/27/2024 11:49 Dictated By: Isiah Saxena M.D. Signed By: 06/27/24 1152 DD/ 1149 TD/TT: Water Systems Engineer: CULLEN HealthcareRadiology Study observation (narrative)CULLEN HealthcareUS OB BPP W NON-STRESSOrdered By: Radiologist Radiology on 81-20-8509NZML Healthcare Work Phone: no Panel InformationOrdered By: Moi Rueda on 93-26-2667Uvpgw Gp B Memorial HospitalUrinalysis macro (dipstick) panel (U)on 14-21-8351Tqolbenzx, UANegativeNegative - 4(70) +++ mg/dL NOMS HealthcareBlood, UAPositiveNegative - 50 Jt/mcLNOMS HealthcareComment on above:traceClarity, UAClearNOMS HealthcareColor, UAYellowNOMS HealthcareGlucose, UANegativeNegative - 2000(110) ++++ mg/dLNOMS HealthcareInterpretation and review of laboratory resultsAbnormalNOMS HealthcareKetones, UANegativeNegative - 160(16) ++++ mg/dLNOMS HealthcareLeukocytes, UANegativeNegative - 500+++ [place]/mcLNOMS HealthcareNitrite, UANegativeNegative - PositiveNOMS HealthcarepH, UA75 - 9NOMS HealthcareProtein, UANegativeNegative - 2000(20) ++++ mg/dLNOMS HealthcareSpec Grav, UA1.021 - 1.03NOMS HealthcareUrobilinogen, UA2.00.2 - 12 mg/dLNOMS HealthcareNOMS HealthcareUS OB BPP W NON-STRESSon 52-77-0171[address] [address] Ultrasound Report Signed Patient: COLTON MEDRANO MR#: [id number] : 1995 Acct:[id number] Age/Sex: 28 / F ADM Date: 06/20/24 Loc: US Attending Dr: Moi Rueda D.O. Ordering Physician: Mio Rueda D.O. Date of Service: 06/20/24 Procedure(s): US OB BPP w non-stress Accession Number(s): [id number] cc: Moi Rueda D.O.; LUCILA ARNETT [address] [address] Patient Name: COLTON MEDRANO MRN: [id number] date: 1995 Sex: F Assigned Patient Location: [facility] Current Patient Location: Accession/Order Number: [id number] Exam Date: 06/20/2024 11:04 Report Date: 06/20/2024 12:30 At the request of: MOI RUEDA Procedure: US OB BPP w non-stress [...] Signed By: 06/20/24 1233 DD/ 1230 TD/TT: Water Systems Engineer:TBHRadiology, Radiologist, MD - 06/20/2024 [place] [address] Ultrasound Report Signed Patient: COLTON MEDRANO MR#: [id number] : 1995 Acct:[id number] Age/Sex: 28 / F ADM Date: 06/20/24 Loc: US Attending Dr: Moi Rueda D.O. Ordering Physician: Moi Rueda D.O. Date of Service: 06/20/24 Procedure(s): US OB BPP w non-stress Accession Number(s): [id number] cc: Moi Rueda D.O.; LUCILA ARNETT [place] [address] [address] Patient Name: COLTON MEDRANO MRN: [id number] date: 1995 Sex: F Assigned Patient Location: [facility] Current Patient Location: Accession/Order Number: [id number] Exam Date: 06/20/2024 11:04 Report Date: 06/20/2024 12:30 At the request of: MOI RUEDA Procedure: US OB BPP w non-stress [...] Signed By: 06/20/24 1233 DD/ 1230 TD/TT: Water Systems Engineer: NOMRosa HealthcareRadiology Study observation (narrative)NOMS HealthcareUS OB BPP W NON-STRESSOrdered By: Radiologist Radiology on 47-00-3920EJZL Healthcare Work Phone: US OB BPP W NON-STRESSon [phone], [place] [address] Ultrasound Report Signed Patient: COLTON MEDRANO MR#: [id number] : 1995 Acct:[id number] Age/Sex: 28 / F ADM Date: 06/13/24 Loc: US Attending Dr: Moi Rueda D.O. Ordering Physician: Moi Rueda D.O. Date of Service: 06/13/24 Procedure(s): US OB BPP w non-stress Accession Number(s): [id number] cc: Moi Rueda D.O.; LUCILA ARNETT [address] [address] Patient Name: COLTON MEDRANO MRN: [id number] date: 1995 Sex: F Assigned Patient Location: [facility] Current Patient Location: Accession/Order Number: [id number] Exam Date: 06/13/2024 10:53 Report Date: 06/14/2024 04:21 At the request of: MOI RUEDA Procedure: US OB BPP w non-stress [...] biophysical profile score: 8 Electronically authenticated by: ISIAH SAXENA Date: 06/14/2024 04:21 Dictated By: Isiah Saxena M.D. Signed By: 06/14/24422 DD/ 0 TD/TT: Water Systems Engineer:TBHRadiology, Radiologist, MD - 06/14/2024 [place] [address] Ultrasound Report Signed Patient: COLTON MEDRANO MR#: [id number] : 1995 Acct:[id number] Age/Sex: 28 / F ADM Date: 06/13/24 Loc: US Attending Dr: Moi Rueda D.O. Ordering Physician: Moi Rueda D.O. Date of Service: 06/13/24 Procedure(s): US OB BPP w non-stress Accession Number(s): [id number] cc: Moi Rueda D.O.; LUCILA ARNETT [place] [phone] Patient Name: COLTON MEDRANO MRN: [facility]:[id number] date: 1995 Sex: F Assigned Patient Location: [facility] Current Patient Location: Accession/Order Number: [id number] Exam Date: 06/13/2024 10:53 Report Date: 06/14/2024 04:21 At the request of: MOI MARYBETH Procedure: US OB BPP w non-stress EXAMINATION: [...] biophysical profile score: 8 Electronically authenticated by: ISIAH SAXENA Date: 06/14/2024 04:21 Dictated By: Isiah Saxena M.D. Signed By: 06/14/24422 DD/ 0 TD/TT: Water Systems Engineer: CULLEN HealthcareRadiology Study observation (narrative)NOMS HealthcareUS OB BPP W NON-STRESSOrdered By: Radiologist Radiology on 29-99-8811QBBR Healthcare Work Phone: US OB CERVICAL LENGTHon [phone], [place] [address] Ultrasound Report Signed Patient: COLTON MEDRANO MR#: [id number] : 1995 Acct:[id number] Age/Sex: 28 / F ADM Date: 06/06/24 Loc: [facility] 250-[address]: Moi Rueda D.O. Ordering Physician: Moi Rueda D.O. Date of Service: 06/06/24 Procedure(s): US OB cervical length Accession Number(s): [id number] cc: Moi Rueda D.O.; LUCILA ARNETT [place] [phone] Patient Name: COLTON MEDRANO MRN: [id number] date: 1995 Sex: F Assigned Patient Location: [facility] Current Patient Location: [facility] Accession/Order Number: [id number] Exam Date: 06/06/2024 12:58 Report Date: 06/06/2024 14:47 At the request of: MOI RUEDA Procedure: US OB cervical length EXAMINATION: [...] Signed By: 06/06/24 1449 DD/ 1447 TD/TT: Water Systems Engineer:TBHRadiology, Radiologist, MD - 06/06/2024 [place] [address] Ultrasound Report Signed Patient: COLTON MEDRANO MR#: [id number] : 1995 Acct:[id number] Age/Sex: 28 / F ADM Date: 06/06/24 Loc: [facility] 250-[address]: Moi Rueda D.O. Ordering Physician: Moi Rueda D.O. Date of Service: 06/06/24 Procedure(s): US OB cervical length Accession Number(s): [id number] cc: Moi Rueda D.O.; LUCILA ARNETT [place] [phone] Patient Name: COLTON MEDRANO MRN: [id number] date: 1995 Sex: F Assigned Patient Location: [facility] Current Patient Location: [facility] Accession/Order Number: [id number] Exam Date: 06/06/2024 12:58 Report Date: 06/06/2024 14:47 At the request of: MOI RUEDA Procedure: US OB cervical length EXAMINATION: [...] Dictated By: Darline Espitia M.D. Signed By: 06/06/241448 DD/ 46 TD/TT: Water Systems Engineer: NOMS HealthcareRadiology Study observation (narrative)NOMS HealthcareUS OB CERVICAL LENGTHOrdered By: Radiologist Radiology on 87-50-5029NLJO Healthcare Work Phone: US OB BPP W NON-STRESSon [phone], [place] [address] Ultrasound Report Signed Patient: COLTON MEDRANO MR#: [id number] : 1995 Acct:[id number] Age/Sex: 28 / F ADM Date: 06/06/24 Loc: [facility] 250-[address]: Moi Rueda D.O. Ordering Physician: Moi Rueda D.O. Date of Service: 06/06/24 Procedure(s): US OB BPP w non-stress Accession Number(s): [id number] cc: Moi Rueda D.O.; LUCILA ARNETT [place] [address] Patient Name: COLTON MEDRANO MRN: [id number] date: 1995 Sex: F Assigned Patient Location: [facility] Current Patient Location: [facility] Accession/Order Number: [id number] Exam Date: 06/06/2024 11:15 Report Date: 06/06/2024 12:03 At the request of: MOI RUEDA Procedure: US OB BPP w non-stress [...] By: Darline Espitia M.D. Signed By: 06/06/24 120 DD/ 02 TD/TT: Water Systems Engineer:TBHRadiology, Radiologist, - 06/06/2024 [place] [address] Ultrasound Report Signed Patient: COLTON MEDRANO MR#: [id number] : 1995 Acct:[id number] Age/Sex: 28 / F ADM Date: 06/06/24 Loc: [facility] 250-[address]: Moi Rueda D.O. Ordering Physician: Moi Rueda D.O. Date of Service: 06/06/24 Procedure(s): US OB BPP w non-stress Accession Number(s): [id number] cc: Moi Rueda D.O.; LUCILA ARNETT [place] [address] Patient Name: COLTON MEDRANO MRN: [id number] date: 1995 Sex: F Assigned Patient Location: [facility] Current Patient Location: [facility] Accession/Order Number: [id number] Exam Date: 06/06/2024 11:15 Report Date: 06/06/2024 12:03 At the request of: MOI RUEDA Procedure: US OB BPP w non-stress [...] Espitia M.D. Signed By: 06/06/24 1206 DD/ 02 TD/TT: Water Systems Engineer: CULLEN HealthcareRadiology Study observation (narrative)NOMS HealthcareUS OB BPP W NON-STRESSOrdered By: Radiologist Radiology on 24-23-6332EYSH Healthcare Work Phone: US OB GROWTHon [phone], [place] [address] Ultrasound Report Signed Patient: COLTON MEDRANO MR#: [id number] : 1995 Acct:[id number] Age/Sex: 28 / F ADM Date: 06/05/24 Loc: [facility] Attending Dr: Moi Rueda D.O. Ordering Physician: Moi Rueda D.O. Date of Service: 06/05/24 Procedure(s): US OB growth Accession Number(s): [id number] cc: Moi Rueda D.O.; LUCILA ARNETT [address] [address] Patient Name: COLTON MEDRANO MRN: [id number] date: 1995 Sex: F Assigned Patient Location: [facility] Current Patient Location: [facility] Accession/Order Number: [id number] Exam Date: 06/05/2024 09:55 Report Date: 06/05/2024 11:22 At the request of: MOI RUEDA Procedure: US OB growth EXAMINATION: US [...] Espitia M.D. Signed By: 06/05/24 1125 DD/ 1122 TD/TT: Water Systems Engineer:TBHRadiology, Radiologist, - 06/05/2024 [place] [address] Ultrasound Report Signed Patient: COLTON MEDRANO MR#: [id number] : 1995 Acct:[id number] Age/Sex: 28 / F ADM Date: 06/05/24 Loc: [facility] Attending Dr: Moi Rueda D.O. Ordering Physician: Moi Rueda D.O. Date of Service: 06/05/24 Procedure(s): US OB growth Accession Number(s): [id number] cc: Moi Rueda D.O.; LUCILA ARNETT [place] [address] Patient Name: COLTON MEDRANO MRN: [id number] date: 1995 Sex: F Assigned Patient Location: [facility] Current Patient Location: [facility] Accession/Order Number: [id number] Exam Date: 06/05/2024 09:55 Report Date: 06/05/2024 11:22 At the request of: MOI RUEDA Procedure: US OB growth EXAMINATION: US [...] Espitia M.D. Signed By: 06/05/24 1125 DD/ 1122 TD/TT: Water Systems Engineer: [facility] HealthcareRadiology Study observation (narrative)[facility]US OB GROWTHOrdered By: Radiologist Radiology on 22-67-2297DSOYSaint Joseph Hospital West Work Phone: Urinalysis macro (dipstick) panel (U)on 06-05-2024 Bilirubin, UANegativeNegative - 4(70) +++ mg/dLNOMS HealthcareBlood, UAPositive Negative - 50 Jt/mcLNOMS HealthcareComment on above:trace-intactClarity, UA ClearNOMS HealthcareColor, UAYellowNOMS HealthcareGlucose, UANegativeNegative - 2000(110) ++++ mg/dLNOCT HealthcareInterpretation and review of laboratory resultsAbnormalNOMS HealthcareKetones, UANegativeNegative - 160(16) ++++ mg/dL NOMS HealthcareLeukocytes, UANegativeNegative - 500+++ [place]/mcLNOMS Healthcare Nitrite, UANegativeNegative - PositiveNOMS HealthcarepH, UA75 - 9NOMS Healthcare Protein, UANegativeNegative - 2000(20) ++++ mg/dLNOMS HealthcareSpec Grav, UA 1.021 - 1.03NOMS HealthcareUrobilinogen, UA1.00.2 - 12 mg/dLNOMS HealthcareNOMS HealthcareUS OB BPP W NON-STRESSon 06-27-8434XprWind[place], [place] [address] Ultrasound Report Signed Patient: COLTON MEDRANO MR#: [id number] : 1995 Acct:[id number] Age/Sex: 28 / F ADM Date: 05/30/24 Loc: [facility] 254-[address]: Moi Rueda D.O. Ordering Physician: Moi Rueda D.O. Date of Service: 05/30/24 Procedure(s): US OB BPP w non-stress Accession Number(s): [id number] cc: Moi Rueda D.O.; LUCILA ARNETT [place] [address] Patient Name: COLTON MEDRANO MRN: [id number] date: 1995 Sex: F Assigned Patient Location: [facility] Current Patient Location: [facility] Accession/Order Number: [id number] Exam Date: 05/30/2024 10:43 Report Date: 05/30/2024 11:11 At the request of: MOI RUEDA Procedure: US OB BPP w non-stress [...] Signed By: 05/30/24 1114 DD/ 1111 TD/TT: Water Systems Engineer:TERRIadiologluis fernando, Radiologist, - 05/30/2024 [place] [address] Ultrasound Report Signed Patient: COLTON MEDRANO MR#: [id number] : 1995 Acct:[id number] Age/Sex: 28 / F ADM Date: 05/30/24 Loc: [facility] 254-[address]: Moi Rueda D.O. Ordering Physician: Moi Rueda D.O. Date of Service: 05/30/24 Procedure(s): US OB BPP w non-stress Accession Number(s): [id number] cc: Moi Rueda D.O.; LUCILA ARNETT [place] [address] Patient Name: COLTON MEDRANO MRN: [id number] date: 1995 Sex: F Assigned Patient Location: [facility] Current Patient Location: [facility] Accession/Order Number: [id number] Exam Date: 05/30/2024 10:43 Report Date: 05/30/2024 11:11 At the request of: MOI RUEDA Procedure: US OB BPP w non-stress [...] Signed By: 05/30/24 1114 DD/ 1111 TD/TT: Water Systems Engineer: CULLEN HealthcareRadiology Study observation (narrative)NOMS HealthcareUS OB BPP W NON-STRESSOrdered By: Radiologist Radiology on 17-83-5624CSXY [facility] Work Phone: Urinalysis macro (dipstick) panel (U)on 05-19-2024 Bilirubin, UANegativeNegative - 4(70) +++ mg/dLNOMS HealthcareBlood, UANegative Negative - 50 Jt/mcLNOMS HealthcareClarity, UAClearNOMS HealthcareColor, UA YellowNOMS HealthcareGlucose, UANegativeNegative - 2000(110) ++++ mg/dLNOMS HealthcareInterpretation and review of laboratory resultsNormalNOCT Healthcare Ketones, UANegativeNegative - 160(16) ++++ mg/dLNOMS HealthcareLeukocytes, UA NegativeNegative - 500+++ [place]/mcLNOMS HealthcareNitrite, UANegativeNegative - PositiveNOMS HealthcarepH, UA7.05 - 9NOMS HealthcareProtein, UANegativeNegative - 2000(20) ++++ mg/dLNOMS HealthcareSpec Grav, UA1.0201 - 1.03NOMS Healthcare Urobilinogen, UA1.00.2 - 12 mg/dLNOMS HealthcareNOMS HealthcareUS OB CERVICAL LENGTHon 72-22-0078KvsWind[place], [place] [address] Ultrasound Report Signed Patient: COLTON MEDRANO MR#: [id number] : 1995 Acct:[id number] Age/Sex: 28 / F ADM Date: 05/13/24 Loc: NOMS Attending Dr: Moi Rueda D.O. Ordering Physician: Moi Rueda D.O. Date of Service: 05/13/24 Procedure(s): US OB cervical length Accession Number(s): [id number] cc: Moi Rueda D.O.; LUCILA ARNETT [address] [address] Patient Name: COLTON MEDRANO MRN: [id number] date: 1995 Sex: F Assigned Patient Location: NOMS Current Patient Location: Accession/Order Number: [id number] Exam Date: 05/13/2024 14:38 Report Date: 05/14/2024 04:29 At the request of: MOI RUEDA Procedure: US OB cervical length EXAMINATION: [...] 4.3 cm in length. Electronically authenticated by: ISIAH SAXENA Date: 05/14/2024 04:29 Dictated By: Isiah Saxena M.D. Signed By: 05/14/24 0431 DD/ 0429 TD/TT: Water Systems Engineer:BENNYHRadiology, Radiologist, MD - 05/14/2024 [place] [address] Ultrasound Report Signed Patient: COLTON MEDRANO MR#: [id number] : 1995 Acct:[id number] Age/Sex: 28 / F ADM Date: 05/13/24 Loc: NOMS Attending Dr: Moi Rueda D.O. Ordering Physician: Moi Rueda D.O. Date of Service: 05/13/24 Procedure(s): US OB cervical length Accession Number(s): [id number] cc: Moi Rueda D.O.; LUCILA ARNETT [place] [address] Patient Name: COLTON MEDRANO MRN: [id number] date: 1995 Sex: F Assigned Patient Location: [facility] Current Patient Location: Accession/Order Number: [id number] Exam Date: 05/13/2024 14:38 Report Date: 05/14/2024 04:29 At the request of: MOI RUEDA Procedure: US OB cervical length EXAMINATION: [...] 4.3 cm in length. Electronically authenticated by: ISIAH SAXENA Date: 05/14/2024 04:29 Dictated By: Isiah Saxena M.D. Signed By: 05/14/24430 DD/ 8 TD/TT: Water Systems Engineer: CULLEN HealthcareRadiology Study observation (narrative)[facility] WestUS OB CERVICAL LENGTHOrdered By: Radiologist Radiology on 94-44-7213PZDR Healthcare Work Phone: US OB GROWTHon 04-21-2898[place]jl[place], [place] [address] Ultrasound Report Signed Patient: COLTON MEDRANO MR#: [id number] : 1995 Acct:[id number] Age/Sex: 28 / F ADM Date: 05/08/24 Loc: NOMS Attending Dr: Moi Rueda D.O. Ordering Physician: Moi Rueda D.O. Date of Service: 05/08/24 Procedure(s): US OB growth Accession Number(s): [id number] cc: Moi Rueda D.O.; LUCILA ARNETT [address] [address] Patient Name: COLTON MEDRANO MRN: [id number] date: 1995 Sex: F Assigned Patient Location: NOMS Current Patient Location: NOMS Accession/Order Number: [id number] Exam Date: 05/08/2024 10:32 Report Date: 05/08/2024 12:30 At the request of: MOI RUEDA Procedure: US OB growth EXAMINATION: US [...] Signed By: 05/08/24 1233 DD/ 1230 TD/TT: Water Systems Engineer:BENNYHRadiology, Radiologist, - 05/08/2024 [place] [address] Ultrasound Report Signed Patient: COLTON MEDRANO MR#: [id number] : 1995 Acct:[id number] Age/Sex: 28 / F ADM Date: 05/08/24 Loc: NOMS Attending Dr: Moi Rueda D.O. Ordering Physician: Moi Rueda D.O. Date of Service: 05/08/24 Procedure(s): US OB growth Accession Number(s): [id number] cc: Moi Rueda D.O.; LUCILA ARNETT [address] [address] Patient Name: COLTON MEDRANO MRN: [id number] date: 1995 Sex: F Assigned Patient Location: [facility] Current Patient Location: [facility] Accession/Order Number: [id number] Exam Date: 05/08/2024 10:32 Report Date: 05/08/2024 12:30 At the request of: MOI RUEDA Procedure: US OB growth EXAMINATION: US [...] Signed By: 05/08/24 1233 DD/ 1230 TD/TT: Water Systems Engineer: CULLEN HealthcareRadiology Study observation (narrative)[facility] WestUS OB GROWTHOrdered By: Radiologist Radiology on 87-06-0228TBNM [employer] Work Phone: Urinalysis macro (dipstick) panel (U)on 05-08-2024 Bilirubin, UANegativeNegative - 4(70) +++ mg/dLNOMS HealthcareBlood, UAPositive Negative - 50 Jt/mcLNOMS HealthcareComment on above:traceClarity, UAClearNOMS HealthcareColor, UAYellowNOCT HealthcareGlucose, UANegativeNegative - 2000(110) ++++ mg/dLSaint Joseph Hospital WestInterpretation and review of laboratory resultsAbnormal [facility] WestKetones, UANegativeNegative - 160(16) ++++ mg/dLSaint Joseph Hospital West Leukocytes, UANegativeNegative - 500+++ [place]/mcLNOSSM Health CareNitrite, UA NegativeNegative - PositiveNOCT HealthcarepH, UA7.05 - 9NOCT HealthcareProtein, UANegativeNegative - 2000(20) ++++ mg/dLNOCT HealthcareSpec Grav, UA1.0101 - 1.03NOCT HealthcareUrobilinogen, UA1.00.2 - 12 mg/dLCox Walnut Lawn HealthcareALL CBC WITH AUTO DIFFon 52-72-2194YFWKWKNIF ABSOLUTE AUTO0.1NOMS HealthcareBasophils/100 WBC (Bld)0.8 %0.2 - 2.0 %[facility] WestEosinophils/100 WBC (Bld)1.3 %0.9 - 7.0 %[facility] WestErythrocyte distribution width (RBC) [Ratio]11.9 %11.0 - 15.0 %[facility] WestHematocrit (Bld) [Volume fraction]31.4 %Low36.0 - 48.0 %[facility] WestHemoglobin (Bld) [Mass/Vol]10.6 g/dLLow12.0 - 16.0 g/dLSaint Joseph Hospital WestIMMATURE GRANULOCYTES ABS AUTO0.22HighSaint Joseph Hospital West Immature granulocytes/100 WBC (Bld)2.6 %High0.0 - 0.5 %[facility] Interpretation and review of laboratory resultsAbnormAdvanced Surgical Hospital LYMPHOCYTES ABSOLUTE AUTO1.5NOSSM Health CareLymphocytes/100 WBC (Bld)17.5 %Low 20.5 - 60.0 %Christian HospitalH (RBC) [Entitic mass]32.4 pg26.7 - 34.0 pgSaint Joseph Hospital WestMCHC (RBC) [Mass/Vol]33.8 g/dL29.9 - 35.2 g/dLSaint Joseph Hospital WestMCV (RBC) [Entitic vol]96.0 fL81.0 - 99.0 fLSaint Joseph Hospital WestMONOCYTES ABSOLUTE AUTO0.9High [facility] HealthcareMonocytes/100 WBC (Bld)10.6 %1.7 - 12.0 %[facility] NEUTROPHILS ABSOLUTE AUTO5.7NOSSM Health CareNeutrophils/100 WBC (Bld)67.2 %43.0 - 75.0 %[facility] WestPlatelet mean volume (Bld) [Entitic vol]9.0 fLLow9.5 - 13.5 fLSaint Joseph Hospital WestTBH EO #0.1NOMS [facility] CenterTB GRO686MTWQ [facility] RBC3.27 LowNOSaint Francis Hospital & Health Services WBC8.5NOSSM Health CareCLINISYNCNHARMON MEMORIAL H[facility]ITAL [facility] HealthcareALL CBC WITH AUTO DIFFon 33-32-8588DGOCPSSBO ABSOLUTE AUTO0.0NOSSM Health CareBasophils/100 WBC (Bld)0.4 %0.2 - 2.0 %[facility] WestEosinophils/100 WBC (Bld)0.9 %0.9 - 7.0 % [facility] WestErythrocyte distribution width (RBC) [Ratio]12.0 %11.0 - 15.0 % [facility] WestHematocrit (Bld) [Volume fraction]33.3 %Low36.0 - 48.0 %[facility] WestHemoglobin (Bld) [Mass/Vol]11.5 g/dLLow12.0 - 16.0 g/dLSaint Joseph Hospital West IMMATURE GRANULOCYTES ABS AUTO0.16HighSaint Joseph Hospital WestImmature granulocytes/100 WBC (Bld)1.8 %High0.0 - 0.5 %[facility] WestInterpretation and review of laboratory resultsAbnormalNOSSM Health CareLYMPHOCYTES ABSOLUTE AUTO1.3NOMS [facility] Orthopedic CenterLymphocytes/100 WBC (Bld)14.5 %Low20.5 - 60.0 %Christian HospitalH (RBC) [Entitic mass]33.0 pg26.7 - 34.0 pgChristian HospitalHC (RBC) [Mass/Vol] 34.5 g/dL29.9 - 35.2 g/dLSaint Joseph Hospital WestMCV (RBC) [Entitic vol]95.7 fL81.0 - 99.0 fLSaint Joseph Hospital WestMONOCYTES ABSOLUTE AUTO0.6NOMS HealthcareMonocytes/100 WBC (Bld)6.5 %1.7 - 12.0 %[facility] HealthcareNEUTROPHILS ABSOLUTE AUTO6.8HighNOMS HealthcareNeutrophils/100 WBC (Bld)75.9 %High43.0 - 75.0 %[facility] Healthcare Platelet mean volume (Bld) [Entitic vol]9.2 fLLow9.5 - 13.5 fLNOCT HealthcareTBH EO #0.1NOMS HealthcareTBH TMM623RCGZ HealthcareTBH RBC3.48LowNOMS HealthcareTBH WBC8.9NOMS HealthcareCLINISYNCNOMS HealthcareUrinalysis macro (dipstick) panel (U)on 98-69-7301Ggfmarhzf, UANegativeNegative - 4(70) +++ mg/dLNOMS Healthcare Blood, UANegativeNegative - 50 Jt/mcLNOMS HealthcareClarity, UAClearNOMS HealthcareColor, UAYellowNOMS HealthcareGlucose, UAPositiveNegative - 1999(110) ++++ mg/dLNOMS HealthcareComment on above:500Interpretation and review of laboratory resultsAbnormalNOMS HealthcareKetones, UANegativeNegative - 160(16) ++++ mg/dLNOMS HealthcareLeukocytes, UANegativeNegative - 500+++ [place]/mcLNOMS HealthcareNitrite, UANegativeNegative - PositiveNOCT HealthcarepH, UA6.55 - 9 NOMS HealthcareProtein, UANegativeNegative - 2000(20) ++++ mg/dLNOMS Healthcare Spec Grav, UA1.0201 - 1.03NOMS HealthcareUrobilinogen, UA0.20.2 - 12 mg/dLNOMS HealthcareNOCT HealthcareUrinalysis macro (dipstick) panel (U)on 04-10-2024 Bilirubin, UANegativeNegative - 4(70) +++ mg/dLNOMS HealthcareBlood, UANegative Negative - 50 Jt/mcLNOMS HealthcareClarity, UAClearNOMS HealthcareColor, UA YellowNOMS HealthcareGlucose, UANegativeNegative - 2000(110) ++++ mg/dLNOMS HealthcareInterpretation and review of laboratory resultsNormalNOMS Healthcare Ketones, UANegativeNegative - 160(16) ++++ mg/dLNOMS HealthcareLeukocytes, UA NegativeNegative - 500+++ [place]/mcLNOMS HealthcareNitrite, UANegativeNegative - PositiveNOMS HealthcarepH, UA6.05 - 9NOMS HealthcareProtein, UANegativeNegative - 2000(20) ++++ mg/dLNOMS HealthcareSpec Grav, UA1.0151 - 1.03N[facility]S Healthcare Urobilinogen, UA1.00.2 - 12 mg/dLNOMS HealthcareNOMS HealthcareUltrasound - Officeon 68-95-9240Rakhfdzxq Study observation (narrative)[facility] SystemUS OB CERVICAL LENGTHon 43-46-3257KfbWind[place], [place] [address] Ultrasound Report Signed Patient: COLTON MEDRANO MR#: [id number] : 1995 Acct:[id number] Age/Sex: 28 / F ADM Date: 03/13/24 Loc: NOMS Attending Dr: Moi Rueda D.O. Ordering Physician: Moi Rueda D.O. Date of Service: 03/13/24 Procedure(s): US OB cervical length Accession Number(s): [id number] cc: Moi Rueda D.O.; LUCILA ARNETT [place] [address] Patient Name: COLTON MEDRANO MRN: [id number] date: 1995 Sex: F Assigned Patient Location: [facility] Current Patient Location: [facility] Accession/Order Number: [id number] Exam Date: 03/13/2024 10:53 Report Date: 03/13/2024 11:29 At the request of: MOI RUEDA Procedure: US OB cervical length EXAMINATION: US OB cervical length HISTORY: HISTORY OF PRE-TERM DELIVERY COMPARISON: 12/26/2023 FINDINGS: position: Cephalic Cervix: 4.5 cm closed Clinical age: 20 weeks 5 days US/US OB cervical length IMPRESSION: Closed cervix measuring 4.5 cm in length Electronically authenticated by: DARLINE ESPITIA Date: 03/13/2024 11:29 Dictated By: Darline Espitia M.D. Signed By: 03/13/24 1131 DD/ 28 TD/TT: Water Systems Engineer:TERRIadiolJohanna jasmine, - 03/13/2024 [place] [address] Ultrasound Report Signed Patient: COLTON MEDRANO MR#: [id number] : 1995 Acct:[id number] Age/Sex: 28 / F ADM Date: 03/13/24 Loc: NOMS Attending Dr: Moi Rueda D.O. Ordering Physician: Moi Rueda D.O. Date of Service: 03/13/24 Procedure(s): US OB cervical length Accession Number(s): [id number] cc: Moi Rueda D.O.; LUCILA ARNETT [place] [address] Patient Name: COLTON MEDRANO MRN: [facility]:[id number] date: 1995 Sex: F Assigned Patient Location: NOMS Current Patient Location: [facility] Accession/Order Number: [id number] Exam Date: 03/13/2024 10:53 Report Date: 03/13/2024 11:29 At the request of: MOI RUEDA Procedure: US OB cervical length EXAMINATION: US OB cervical length HISTORY: HISTORY OF PRE-TERM DELIVERY COMPARISON: 12/26/2023 FINDINGS: position: Cephalic Cervix: 4.5 cm closed Clinical age: 20 weeks 5 days US/US OB cervical length IMPRESSION: Closed cervix measuring 4.5 cm in length Electronically authenticated by: DARLINE ESPITIA Date: 03/13/2024 11:29 Dictated By: Darline Espitia M.D. Signed By: 03/13/241130 DD/ 28 TD/TT: Water Systems Engineer: CULLEN HealthcareRadiology Study observation (narrative)CULLEN Velasco OB CERVICAL LENGTHOrdered By: Radiologist Radiology on 11-54-8247VIKE [facility] Work Phone: Ultrasound - Officeon 61-03-1436SrsEvwtll Health SystemUltrasound - Officeon 15-18-4195Nvenmvatm Study observation (narrative) [facility] SpringfieldUS APPENDIXon 86-43-8617YdzWind[place], [place] [address] Ultrasound Report Signed Patient: COLTON MEDRANO MR#: [id number] : 1995 Acct:[id number] Age/Sex: 28 / F ADM Date: 12/26/23 Loc: US Attending Dr: Moi Rueda D.O. Ordering Physician: Moi Rueda D.O. Date of Service: 12/26/23 Procedure(s): US appendix Accession Number(s): [id number] cc: Moi Rueda D.O.; LUCILA ARNETT [place] [phone] Patient Name: COLTON MEDRANO MRN: [id number] date: 1995 Sex: F Assigned Patient Location: US Current Patient Location: US Accession/Order Number: [id number] Exam Date: 12/26/2023 12:42 Report Date: 12/26/2023 13:45 At the request of: MOI RUEDA Procedure: US appendix EXAM: US appendix [...] Signed By: 12/26/23 1348 DD/ 1345 TD/TT: Water Systems Engineer:TERRIadiolkenroy, Radiologist, - 12/26/2023 [place] [address] Ultrasound Report Signed Patient: COLTON MEDRANO MR#: [id number] : 1995 Acct:[id number] Age/Sex: 28 / F ADM Date: 12/26/23 Loc: US Attending Dr: Moi Rueda D.O. Ordering Physician: Moi Rueda D.O. Date of Service: 12/26/23 Procedure(s): US appendix Accession Number(s): [id number] cc: Moi Rueda D.O.; LUCILA ARNETT [place] [phone] Patient Name: COLTON MEDRANO MRN: [facility]:[id number] date: 1995 Sex: F Assigned Patient Location: US Current Patient Location: US Accession/Order Number: [id number] Exam Date: 12/26/2023 12:42 Report Date: 12/26/2023 13:45 At the request of: MOI RUEDA Procedure: US appendix EXAM: US appendix [...] Signed By: 12/26/23 1348 DD/ 1345 TD/TT: Water Systems Engineer: CULLEN BrannonRadiology Study observation (narrative)CULLEN Velasco APPENDIX Ordered By: Radiologist Radiology on 77-82-5900BV[facility] Work Phone: US OB TRANSVAGINALon 97-71-7603OgtWindom, [place] [address] Ultrasound Report Signed Patient: COLTON MEDRANO MR#: [id number] : 1995 Acct:[id number] Age/Sex: 28 / F ADM Date: 12/26/23 Loc: US Attending Dr: Moi Rueda D.O. Ordering Physician: Moi Rueda D.O. Date of Service: 12/26/23 Procedure(s): US OB transvaginal Accession Number(s): [id number] cc: Moi Rueda D.O.; LUCILA ARNETT [address] [address] Patient Name: COLTON MEDRANO MRN: [id number] date: 1995 Sex: F Assigned Patient Location: US Current Patient Location: US Accession/Order Number: [id number] Exam Date: 12/26/2023 12:42 Report Date: 12/26/2023 13:44 At the request of: MOI RUEDA Procedure: US OB transvaginal EXAMINATION: US [...] Espitia M.D. Signed By: 12/26/23 1347 DD/ 1344 TD/TT: Water Systems Engineer:TBHRadiology, Radiologist, MD - 12/26/2023 [place] [address] Ultrasound Report Signed Patient: COLTON MEDRANO MR#: [id number] : 1995 Acct:[id number] Age/Sex: 28 / F ADM Date: 12/26/23 Loc: US Attending Dr: Moi Marybeth D.O. Ordering Physician: Moi Rueda D.O. Date of Service: 12/26/23 Procedure(s): US OB transvaginal Accession Number(s): [id number] cc: Moi Rueda D.O.; LUCILA ARNETT [address] [address] Patient Name: COLTON MEDRANO MRN: [id number] date: 1995 Sex: F Assigned Patient Location: US Current Patient Location: US Accession/Order Number: [id number] Exam Date: 12/26/2023 12:42 Report Date: 12/26/2023 13:44 At the request of: MOI RUEDA Procedure: US OB transvaginal EXAMINATION: US [...] By: Darline Espitia M.D. Signed By: 12/26/23 134 DD/ 134 TD/TT: Water Systems Engineer: CULLEN HealthcareRadiology Study observation (narrative)CULLEN BrannonUS OB TRANSVAGINALOrdered By: Radiologist Radiology on 90-13-4715CRWR [facility] Work Phone: US OB TRANSVAGINALon 27-24-6162Q[place] [address] Ultrasound Report Signed Patient: Colton MEDRANO MR#: [id number] : 1995 Acct:[id number] Age/Sex: 28 / F ADM Date: 12/13/23 Loc: NOMS Attending Dr: Moi Rueda D.O. Ordering Physician: Moi Rueda D.O. Date of Service: 12/13/23 Procedure(s): US OB transvaginal Accession Number(s): [id number] cc: Moi Rueda D.O.; LUCILA ARNETT [place] [address] Patient Name: COLTON MEDRANO MRN: [id number] date: 1995 Sex: F Assigned Patient Location: [facility] Current Patient Location: [facility] Accession/Order Number: [id number] Exam Date: 12/13/2023 12:25 Report Date: 12/13/2023 13:37 At the request of: MOI RUEDA Procedure: US OB transvaginal EXAMINATION: US [...] Single live intrauterine . Electronically authenticated by: ISIAH SAXENA Date: 12/13/2023 13:37 Dictated By: Isiah Saxena M.D. Signed By: 12/13/23 1340 DD/ 1337 TD/TT: Water Systems Engineer:TBHRadiology, Radiologist, - 12/13/2023 [place] [address] Ultrasound Report Signed Patient: Colton MEDRANO MR#: [id number] : 1995 Acct:[id number] Age/Sex: 28 / F ADM Date: 12/13/23 Loc: NOMS Attending Dr: Moi Rueda D.O. Ordering Physician: Moi Rueda D.O. Date of Service: 12/13/23 Procedure(s): US OB transvaginal Accession Number(s): [id number] cc: Moi Rueda D.O.; LUCILA ARNETT [place] [address] Patient Name: COLTON MEDRANO MRN: [id number] date: 1995 Sex: F Assigned Patient Location: [facility] Current Patient Location: [facility] Accession/Order Number: [id number] Exam Date: 12/13/2023 12:25 Report Date: 12/13/2023 13:37 At the request of: MOI RUEDA Procedure: US OB transvaginal EXAMINATION: US [...] Single live intrauterine . Electronically authenticated by: ISIAH SAXENA Date: 12/13/2023 13:37 Dictated By: Isiah Saxena M.D. Signed By: 12/13/23 1347 DD/ 1337 TD/TT: Water Systems Engineer: CULLEN HealthcareRadiology Study observation (narrative)NOMS HealthcareUS OB TRANSVAGINALOrdered By: Radiologist Radiology on 27-44-1236KUWK [employer] Work Phone: Ultrasound - Officeon 52-94-4762HchMiymymAshtabula County Medical CenterHCG.beta subunit Qnon 95-65-2871sMA Pdske429162 mIU/mLNormalDayton VA Medical Center on above:Order Comment: Reference Ranges Negative = < 5 mIU/ml [...] using values obtained with a different immunoassay method.Performed By: #### 67784-6 #### [facility] [address] [place], [place] [address]IZO.beta subunit Qnon 64-44-2413tIV Pvfho53315 mIU/mLNormal [facility] on above:Order Comment: Reference Ranges Negative = < 5 mIU/ml [...] using values obtained with a different immunoassay method.Performed By: #### 87458-7 #### [facility] [address] [place], [place] [address]PKJ.beta subunit Qnon 37-62-5239iSI Gsbix57502 mIU/mLNormal [facility] on above:Order Comment: Reference Ranges Negative = < 5 mIU/ml [...] using values obtained with a different immunoassay method.Performed By: #### 74453-3 #### [facility] [address] [place], [place] [address]KLE.beta subunit Qbanner heart hospital 40-48-9572pLD Hmusu74691 mIU/mLNormal [facility] on above:Order Comment: Reference Ranges Negative = < 5 mIU/ml [...] using values obtained with a different immunoassay method.Performed By: #### 94177-2 #### [facility] [address] [place] [address]VOI.beta subunit Qnon 81-06-5021pGN Dcgwa3659 mIU/mLNormal [facility] on above:Order Comment: Reference Ranges Negative = < 5 mIU/ml [...] using values obtained with a different immunoassay method.Performed By: #### 01433-7 #### [facility] [address] [place] [address]LBN.beta subunit Qnon 18-35-0506pFB Sqtbk245 mIU/mLNormalDayton VA Medical Center on above:Order Comment: Reference Ranges Negative = < 5 mIU/ml [...] using values obtained with a different immunoassay method.Performed By: #### 38173-2 #### [facility] [address] [place] [address]PUV.beta subunit Qnon 69-01-1107hGJ Jmfvu410 mIU/mLNormalSumma Health Barberton CampusComment on above:Order Comment: Reference Ranges Negative = < 5 mIU/ml [...] using values obtained with a different immunoassay method.Performed By: #### 92375-2 #### [facility] [address] [place] [address].Thyroglobulin by Dilan 69-97-7419Zdiqzvxcipoqe [Mass/Vol]5.0 ng/mLInvalid Interpretation Code1.5-38.5FAshtabula County Medical CenterComment on above:Result Comment: According to the National Academy of Clinical Biochemistry, the reference interval for Thyroglobulin (TG) should be related to euthyroid patients and not for patients who underwent thyroidectomy. TG reference intervals for these patients depend on the residual mass of the thyroid tissue left after surgery. Establishing a post-operative baseline is recommended. The assay limit of quantitation is 0.1 ng/mL Thyroglobulin measured by John Satartia Immunometric Assay Performed at: [facility] [address] [place], [place] [id number] PhD Johanny Ibarraformed By: #### [id number], [id number], [id number], 0688340, [id number], [id number], [id number] #### Joselito [facility] [address] [place], [place] [address]N5 Freeon 19-43-4019Appi T3 [Mass/Vol]3.2 pg/mLInvalid Interpretation Code2.0-4.4FAshtabula County Medical CenterComment on above:Result Comment: Performed at: [place] [id number] [place], [place] [id number] PhD Johanny Ibarraformed By: #### [id number], [id number], [id number], 1459473, [id number], [id number], [id number] #### [facility] [address], [place] [address]MyCa+Thyroglobulinon 90-11-1644Mwredknuiqaoz Ab Qn[IU]/mL Invalid Interpretation Code0.0-0.9Cherrington HospitalComment on above: Result Comment: Thyroglobulin Antibody measured by [employer] It should be noted that the presence of thyroglobulin antibodies may not be pathogenic nor diagnostic, especially at very low levels. The assay explosive specialist has found that four percent of individuals without evidence of thyroid disease or autoimmunity will have positive TgAb levels up to 4 IU/mL. Performed at: [facility] [address] [place], [place] [id number] PhD Johanny Ibarraformed By: #### [id number], [id number], [id number], 0614298, [id number], [id number], [id number] #### [facility] [address], [place] [address]Edgkbsk Perox.tpo Abon 86-11-7677LKN Ab Qn[IU]/mLInvalid Interpretation Code0-34Cherrington HospitalComment on above:Result Comment: Performed at: [place] [id number] [place], [place] [id number] PhD Johanny Ibarraformed By: #### [id number], [id number], [id number], 6689831, [id number], [id number], [id number] #### [facility] [address], [place] [address]KyNW Quanton 54-86-2544OUO.beta subunit Qn86 m[IU]/mLHigh1-3 Cherrington HospitalComment on above:Result Comment: 'F NON < 1 - 3' ' 0.2 - 1 WEEK = 5 TO 50' ' 1 - 2 WEEKS = 50 - 500' ' 2 - 3 WEEKS = 100 - 5000' ' 3 - 4 WEEKS = 500 - 65653' ' 4 - 5 WEEKS = 1000 - 78412' ' 5 - 6 WEEKS = 03599 - 014048' ' 6 - 8 WEEKS = 44459 - 778555' ' 8 - 12 WEEKS = 62743 - 883145'Performed By: #### [id number] #### Yee [facility] [address], [place] [address]YOFQLKBGRJazcadc By: SYSTEM SYSTEM on 72-58-3507JLH.beta subunit Qn86 m[IU]/mLHigh1 - 3 mIU/mLRemisol ChemComment on above:Result Comment: 'F NON < 1 - 3' ' 0.2 - 1 WEEK = 5 TO 50' ' 1 - 2 WEEKS = 50 - 500' ' 2 - 3 WEEKS = 100 - 5000' ' 3 - 4 WEEKS = 500 - 84494' ' 4 - 5 WEEKS = 1000 - 41986' ' 5 - 6 WEEKS = 40845 - 553104' ' 6 - 8 WEEKS = 25420 - 685575' ' 8 - 12 WEEKS = 88851 - 288064'Iron [Mass/Vol]161 ug/iAAfik58 - 153 mcg/dLRemisol ChemIron binding capacity [Mass/Vol]316 ug/oYRvjpbe058 - 400 mcg/dLRemisol ChemTransferrin [Mass/Vol]226 mg/pXDtytcd911 - 370 mg/dLRemisol ChemTSH Qn1.53 m[IU]/LNormal0.34 - 5.60 mcIU/mLRemisol ChemConsent for Treatment on 95-70-1104Ulskkqv for Treatment [id number]#1.00TIFFNormalCherrington HospitalIronon 75-67-1441Knao [Mass/Vol]161 microgram/pWJqee50-167PcoblvCherrington HospitalComment on above:Performed By: #### [id number], [id number], [id number], [id number], [id number], [id number], [id number] #### Yee [facility] [address], [place] [address]Zfmtitanf Orderon 22-64-9491Fjmcloxtr Order [id number]#1.00TIFFNormalCherrington HospitalTIBC Calculatedon 64-30-3144Oktj binding capacity [Mass/Vol]316 microgram/xMCimgsb660-424EgdasdCherrington HospitalComment on above:Performed By: #### [id number], [id number], [id number], 4460485, [id number], [id number], [id number] #### [facility] [address], [place] [address]Eucyppzbsve [Mass/Vol]226 mg/jRRqslja187-308WejudlCherrington HospitalComment on above:Performed By: #### [id number], [id number], [id number], 9548129, [id number], [id number], [id number] #### [facility] [address], [place] [address]VMY With T4fr Reflexon 17-55-0275TTZ Qn1.53 m[IU]/LNormal 0.34-5.60Cherrington HospitalComment on above:Performed By: #### [id number], [id number], 04866588, 7702565, [id number], [id number], [id number] #### [facility] [address], [place] [address]RFDnw 04-00-7980QWB0.756 uIU/mLNormal0.470-4.680Promedica Memorial HospitalComment on above:Performed By: #### TSH #### [facility] [address] StreetComment on above:Result Comment: <0.34 UIU/ml HYPERTHYROID 0.34-5.60 UIU/ml EUTHYROID >5.60 UIU/ml HYPOTHYROIDPerformed By: #### TSH #### [facility] [address] [place] [address] Jayne KarenCBC AUTO DIFFon 77-49-1016NWQJ #0.1 103/ulNormal0.0-0.1The [facility] HospitalComment on above:Performed By: #### CBC #### [facility] [address] [place] [address] Jayne KarenBasophils/100 WBC (Bld)1.2 %Normal0.2-2.0The [facility] Comment on above:Performed By: #### CBC #### [facility] [address] [place] [address] Jayne KarenEO #0.2 103/ulNormal0.0-0.7The [facility] HospitalComment on above: Performed By: #### CBC #### [facility] [address] [place] [address] Jayne KarenEosinophils/100 WBC (Bld)2.6 %Normal0.9-7.0The [facility] Comment on above:Performed By: #### CBC #### [facility] [address] [place] [address] Jayne KarenErythrocyte distribution width (RBC) [Ratio]12.0 %Viefmx67.0-15.0The [facility] HospitalComment on above:Performed By: #### CBC #### [facility] [address] [place] [address] Jayne KarenHematocrit (Bld) [Volume fraction]40.7 %Ginppd33.0-48.0The [facility] HospitalComment on above:Performed By: #### CBC #### [facility] [address] [place] [address] Jayne KarenHemoglobin (Bld) [Mass/Vol]13.6 g/dBBxlsqw85.0-16.0Prom[facility]ica Memorial HospitalComment on above:Performed By: #### CBC #### [facility] [address] [place] [address] Jayne KarenIG #0.01 10e3/ulNormal0.00-0.03Prom[facility]ica Memorial HospitalComment on above:Performed By: #### CBC #### [facility] [address] [place] [address] Jayne RomeroG %0.2 %Normal0.0-0.5The [facility] HospitalComment on above: Performed By: #### CBC #### [facility] [address] [place] [address] Jayne HammLYMPH #1.9 103/ulNormal1.2-3.8The [facility] HospitalComment on above: Performed By: #### CBC #### [facility] [address] [place] [address] Jayne HammLymphocytes/100 WBC (Bld)32.5 %Ahdbvx39.5-60.0[facility] Comment on above:Performed By: #### CBC #### [facility] [address] [place] [address] Jayne HammMANUAL DIFF REQNONormalThe [facility] HospitalComment on above: Performed By: #### CBC #### [facility] [address] [place] [address] Jayne KarenVASSAR [facility] (RBC) [Entitic mass]31.3 beLmvejt94.7-34.0[facility] Comment on above:Performed By: #### CBC #### [facility] [address] [place] [address] Jayne KarenHC (RBC) [Mass/Vol]33.4 g/wZUnntdf47.9-35.2[facility] Comment on above:Performed By: #### CBC #### [facility] [address] [place] [address] Jayne CruzenV (RBC) [Entitic vol]93.6 pDLwioqz89.0-99.0[facility] Comment on above:Performed By: #### CBC #### [facility] [address] [place] [address] Jayne HammMONO #0.6 103/ulNormal0.3-0.8The [facility] HospitalComment on above: Performed By: #### CBC #### [facility] [address] [place], [place] [address] Jayne KarenMonocytes/100 WBC (Bld)10.4 %Normal1.7-12.0The [facility] Comment on above:Performed By: #### CBC #### [facility] [address] [place] [address] Jayne KarenNEUT #3.1 103/ulNormal1.4-6.5The [facility] HospitalComment on above: Performed By: #### CBC #### [facility] [address] [place] [address] Jayne KarenNeutrophils/100 WBC (Bld)53.1 %Pujzdj07.0-75.0The [facility] Comment on above:Performed By: #### CBC #### [facility] [address] [place] [address] Jayne KarenPlatelet mean volume (Bld) [Entitic vol]8.9 fLCritically low9.5-13.5 The [facility] HospitalComment on above:Performed By: #### CBC #### [facility] [address] [place] [address] Jayne AdcrfRVX815 103/reLojejc514-836Crf [facility] HospitalComment on above: Performed By: #### CBC #### [facility] [address] [place] [address] Jayne KarenRBC4.35 106/ulNormal4.20-5.40The [facility] HospitalComment on above: Performed By: #### CBC #### [facility] [address] [place] [address] Jayne KarenWBC5.8 103/ulNormal4.0-11.0The [facility] HospitalCominsight surgical hospital on above: Performed By: #### CBC #### [facility] [address] [place] [address] Jayne KarenPREG QUANT HCGon 81-80-8378EIX QUANT1.00 mIU/mLNormalThe [facility] HospitalComment on above:Performed By: #### PREGQNT #### [facility] [address] [place], [place] [address] Jayne DanielleCG RANGESEE BELOWThe University of Toledo Medical CenterComment on above:Result Comment: 5-50 0-1 WEEK 40-300 1-2 WEEKS 100-1,000 2-3 WEEKS 500-6,000 3-4 WEEKS 5,000-200,000 1-2 MONTHS 10,000-100,000 2-3 MONTHS 3,000-50,000 2ND TRIMESTER 1,000-50,000 3RD TRIMESTERPerformed By: #### PREGQNT #### [facility] [address] [place] [address] Jayne HammPAP ACOG PANEL 2: 21 to 29on 05-06-2020..[facility] Comment on above:Performed By: #### [id number] #### [facility] [address] [place] [address] Jayne CruzenAge Gdln ACOG Rrtqicd15-43XlrdfcLmoSelect Medical Specialty Hospital - YoungstownComment on above:Performed By: #### [id number] #### [facility] [address] [place] [address] Jayne KarenDIAGNOSIS:CommentKettering Memorial Hospital on above:Result Comment: NEGATIVE FOR INTRAEPITHELIAL LESION OR MALIGNANCY.Performed By: #### [id number] #### [facility] [address] [place] [address] Jayne CruzenMethodology:CommentKettering Memorial Hospital on above: Result Comment: This liquid based SurePath(R) pap test was screened with the assistance of an image guided system.Performed By: #### [id number] #### [facility] [address] [place], [place] [address] Jayne CruzenNote:CommentKettering Memorial Hospital on above:Result Comment: The Pap smear is a screening test designed to aid in the detection of premalignant and malignant conditions of the uterine cervix. It is not a diagnostic procedure and should not be used as the sole means of detecting cervical cancer. Both false-positive and false-negative reports do occur. .Performed By: #### [id number] #### [facility] [address] [place] [address] Jayne KarenPerformed by:CommentKettering Memorial Hospital on above: Result Comment: Mechelle Rdz, [employer] Consultant (ASCP)Performed By: #### [id number] #### [facility] [address] [place] [address] Jayne KarenReflex Criteria:CommentKettering Memorial Hospital on above: Result Comment: The HPV DNA reflex criteria were not met with this specimen result therefore, no HPV testing was performed. .Performed By: #### [id number] #### [facility] [address] [place] [address] Jayne KarenSpecimen adequacy:CommentKettering Memorial Hospital on above:Result Comment: Satisfactory for evaluation. Endocervical and/or squamous metaplastic cells (endocervical component) are present.Performed By: #### [id number] #### [facility] [address] [place] [address] Jayne KarenUS PELVIS AND TRANSVAGon 97-49-1074KW PELVIS AND TRANSVAG EXAMINATION: US PELVIS AND [...] Electronically authenticated by: DARLINE ESPITIA Date: 2020-04-30 14:54[facility] Vital Signs Date TimeVital SignValuePerforming XxilpoqwyLsjpjnlk44-77-4678 13:18-0500Body ohxbzf251.3 cmCorey Marybeth DO Work Phone: [facility] WestYttpzygtjs36-67-5208 13:18-0500Body mass index (BMI) [Ratio]19.22 kg/o9Rtulr Marybeth DO Work Phone: [facility] WestOyrshfahco49-92-6195 13:18-0500Body .51 kgCoreluis fernando Rueda [employer] Work Phone: [facility] WestMvnqettslg46-36-8629 13:18-0500Diastolic blood qcydbntz04 mm[Hg]Moi Rueda [employer] Work Phone: [facility] WestDiemeaucxx56-23-9383 13:18-0500Systolic blood lyeubelg990 mm[Hg]Moi Rueda [employer] Work Phone: [facility] WestKginfyxdpm56-66-5350 15:39-0400Body mass index (BMI) [Ratio]20.79 kg/q4Uehxhjqdaniel Marlow DO Work Phone: [facility] WestKxwbmqsmnc52-46-1092 15:39-0400Body nkuqpv72.59 kgAnthdaniel Marlow [employer] Work Phone: [facility] WestIizfydsczs33-63-4393 08:34-0400Body qevxxd020.34 cm[facility]05-13-2025 08:34-0400Body mass index (BMI) [Ratio]21 kg/f2VblxxdgnaOhio State East Hospital05-13-2025 08:34-0400Body vsohedqgfen66.9 [degF][facility]05-13-2025 08:34-0400Body hzzmre83.49 kgOhio [facility] Hospital05-13-2025 08:34-0400Diastolic blood fkxlqcev43 mm[Hg][facility]05-13-2025 08:34-0400 Heart rate79 /minOhio State East Hospital05-13-2025 08:34-9841DwX9% (BldA) [Mass fraction]97 %[facility]05-13-2025 08:34-0400 Systolic blood oyezoxxz889 mm[Hg][facility]03-10-2025 10:33-0400Body gcezaf796.34 cmJeifer Rohrbacher PURCHASER Work Phone: [facility]03-10-2025 10:33-0400 Body mass index (BMI) [Ratio]21.4 kg/p6OypojsplLucila Arnett PURCHASER Work Phone: [facility]03-10-2025 10:33-0400 Body hiqzjwvkfkh13.8 [degF]Lucila Arnett PURCHASER Work Phone: [facility]03-10-2025 10:33-0400 Body mtohrn07.56 kgLucila Arnett PURCHASER Work Phone: [facility]03-10-2025 10:33-0400 Diastolic blood uqqwuvqt77 mm[Hg]Lucila Arnett PURCHASER Work Phone: [facility]03-10-2025 10:33-0400 Systolic blood axpdtqxh772 mm[Hg]Lucila Arnett PURCHASER Work Phone: [facility]01-20-2025 14:16-0500 Body uxhwbt832.34 cmOhio [facility] Hospital01-20-2025 14:16-0500Body mass index (BMI) [Ratio]22.1 kg/l4FfqnuplnrOhio State East Hospital01-20-2025 14:16-0500Body vmcglyiojmx69.4 [degF][facility]01-20-2025 14:16-0500Body ebtyvj22.83 kgOhio State East Hospital01-20-2025 14:16-0500Diastolic blood mm[Hg][facility] 09-08-2024 14:16-0500Heart rate82 /minOhio State [facility] Hospital 09-08-2024 14:16-4707XqN0% (BldA) [Mass fraction]98 %[facility]01-20-2025 14:16-0500Systolic blood ywkixhgp870 mm[Hg][facility]01-08-2025 13:36-0500Body adxjts13.58 kgCorey Marybeth DO Work Phone: [facility] WestIeculwqsju96-03-4168 13:36-0500Diastolic blood kpqdyanb23 mm[Hg]Moi Marybeth DO Work Phone: [facility] WestSqeqqtrwim79-21-3949 13:36-0500Systolic blood mm[Hg]Moi Marybeth DO Work Phone: [facility] WestOzbwaalwfk44-29-2937 13:23-0500Body .48 kgCorey Marybeth DO Work Phone: 1(291)646-[facility] StokesSaint [facility] WestKnuoxyqeni09-23-6673 13:23-0500Diastolic blood pzuytueh90 mm[Hg]Moi Marybeth DO Work Phone: [facility] WestJagrhtolnm76-42-3497 13:23-0500Systolic blood jufkhecz73 mm[Hg]Moi Marybeth DO Work Phone: [facility] WestAofevgykzx84-33-4153 12:57-0500Body oeabas529.34 cmOhio [facility] Hospital11-27-2024 12:57-0500Body mass index (BMI) [Ratio]22.8 kg/q5XbtbgrrlmOhio State East Hospital11-27-2024 12:57-0500Body ggcyiitoujr94.5 [degF][facility]11-27-2024 12:57-0500Body sltukl33.5 kgOhio [facility] Hospital11-27-2024 12:57-0500Diastolic blood mm[Hg][facility]11-27-2024 12:57-0500 Heart rate76 /minOhio State East Hospital11-27-2024 12:57-2010HoT6% (BldA) [Mass fraction]98 %[facility]11-27-2024 12:57-0500 Systolic blood mtlqujoz290 mm[Hg][facility]11-11-2024 10:30-0500Body .64 kgCorey Marybeth DO Work Phone: [facility] WestHwvwzrooil64-73-8540 10:30-0500Diastolic blood pvlucnnh90 mm[Hg]Moi Marybeth DO Work Phone: [place] [address]Vyzxlueoig23-26-8642 10:30-0500Systolic blood bjoiuzwk201 mm[Hg]Moi Marybeth DO Work Phone: [facility] WestJdpsuetswm49-08-9091 09:56-0500Body .74 kgCorey Marybeth DO Work Phone: [facility] WestMjourchlyv22-93-3590 09:56-0500Diastolic blood cyqhgjdo62 mm[Hg]Moi Marybeth DO Work Phone: 1(392)426-[address] [place], [place] [address]Xcrvjijdiw29-11-1441 09:56-0500Systolic blood szseofqc453 mm[Hg]Moi Marybeth DO Work Phone: 1(496)[facility] [place], [place] [address]Yeqneiiygb17-09-4237 10:48-0400Body yvqdjo27.34 kgCorey Marybteh DO Work Phone: 1([phone])[address] [place], [place] [address]Sjzzcejvab26-94-7930 10:48-0400Diastolic blood fwizzztk03 mm[Hg]Moi Marybeth DO Work Phone: 1(267)[facility] [place] [address]-17-2024 10:48-0400Systolic blood uhjkgkwy177 mm[Hg]Moi Marybeth DO Work Phone: 1(717)[facility] [place], [place] [address]Yckxqpqofh28-62-6941 11:10-0400Body mykyza46.83 kgCorey Marybeth DO Work Phone: 1(844)[facility] [place], [place] [address]Azixgaqemo59-06-0258 11:10-0400Diastolic blood fogohfnn43 mm[Hg]Moi Marybeth DO Work Phone: 1(634)[address] [place] [address]-30-2024 11:10-0400Systolic blood ulawratz180 mm[Hg]Moi Marybeth DO Work Phone: 1(487)[facility] [place] [address]-19-2024 11:25-0400Body drqcca85.17 kgCorey Marybeth DO Work Phone: [place] [address]Abrzqafkwq99-23-0244 11:25-0400Diastolic blood mm[Hg]Moi Marybeth DO Work Phone: 1(850)[address] [place] [address]-19-2024 11:25-0400Systolic blood tfioakgg779 mm[Hg]Moi Marybeth DO Work Phone: 1(438)[address] [place], [place] 2968309-05-2024 11:31-0400Body rjuezl69.75 kgCorey Marybeth DO Work Phone: 1(104)[address] [place], [place] 2968309-05-2024 11:31-0400Diastolic blood goxwvdqs69 mm[Hg]Moi Marybeth DO Work Phone: 1(366)[address] [place], [place] 2968309-05-2024 11:31-0400Systolic blood yiwzgniz452 mm[Hg]Moi Marybeth DO Work Phone: 1(261)[address] [place], [place] 2968308-22-2024 10:04-0400Body .3 kg Moi Marybeth DO Work Phone: 1(296)[address] [place], [place] 2968308-22-2024 10:04-0400Diastolic blood mm[Hg]Moi Marybeth DO Work Phone: 1(155)[address] [place], [place] 2968308-22-2024 10:04-0400Systolic blood zmfuppou420 mm[Hg]Moi Marybeth DO Work Phone: 1(758)[address] [place], [place] 2968307-08-2024 13:18-0400Body xlttiq536.3 cmTammy Horne MD Work Phone: 1(410)[address] [place], [place] 9614007-08-2024 13:18-0400Body mass index (BMI) [Ratio]21.51 kg/x4WzpdcowuTammy Horne MD Work Phone: 1(946)[address] [place], [place] 9614007-08-2024 13:18-0400Body dwqquq72.94 kgTammy Horne MD Work Phone: 1(191)[address] [place], [place] 9614007-08-2024 13:18-0400Diastolic blood sxufzbsh44 mm[Hg]Tammy Horne MD Work Phone: 1(135)[address] [place], [place] 9614007-08-2024 13:18-0400Heart rate 58 /minTammy Horne MD Work Phone: 1(116)[address] [place], [place] 9614007-08-2024 13:18-0400Systolic blood vrpaurlx33 mm[Hg]Tammy Horne MD Work Phone: 1(629)[address] [place], [place] 9614006-03-2024 10:39-0400Body keiugc089.3 cmBari Zepeda MD Work Phone: 1(510)[address] [place], [place] 9614006-03-2024 10:39-0400Body mass index (BMI) [Ratio]20.36 kg/v8FjemcBari Zepeda MD Work Phone: 1(875)[address] [place], [place] 9614006-03-2024 10:39-0400Body nedmbh43.22 kgBari Zepeda MD Work Phone: 1(066)[address] [place], [place] 9614006-03-2024 10:39-0400Diastolic blood rawtewnf35 mm[Hg]Bari Zepeda MD Work Phone: 1(827)[address] [place], [place] 9614006-03-2024 10:39-0400Heart rate 82 /minBari Zepeda MD Work Phone: 1(589)[address] [place], [place] 9614006-03-2024 10:39-0400Systolic blood mm[Hg]Bari Zepeda MD Work Phone: 1(008)[address] [place], [place] 9614004-22-2024 09:18-0400Diastolic blood kcjwetor15 mm[Hg]Hill Jacobsen Work Phone: [facility] CenterCuci32-16-0024 09:18-0400Heart rate 101 /minHill Jacobsen Work Phone: [facility] Otfq69-89-2003 09:18-0400Respiratory rate12 /minHill Jacobsen Work Phone: [facility] Clui43-20-3220 09:18-0400Systolic blood fgmcpsti264 mm[Hg]Hill Jacobsen Work Phone: [facility] Vdfx96-84-0995 14:27-0400Body height 180.3 cmCheri Stephen MD Work Phone: [facility]03-15-2024 14:27-0400Body mass index (BMI) [Ratio]20.04 kg/j7AcbdtiCheri Stephen MD Work Phone: 1(834)583-[facility]03-15-2024 14:27-0400Body gkkrme19.18 kgCheri Stephen MD Work Phone: 1([phone])362[facility]03-15-2024 14:27-0400 Diastolic blood eszniagi33 mm[Hg]Cheri Stephen MD Work Phone: 1(386)708[facility]03-15-2024 14:27-0400Systolic blood pduvfplo006 mm[Hg]Cheri Stephen MD Work Phone: 1(457)[address]01-26-2024 11:30-0500Body .34 cmLucila Arnett Other [facility]01-26-2024 11:30-0500 Body mass index (BMI) [Ratio]20.92 kg/w3HsrncstwLucila Wilsonacher Other [employer] Other 01-26-2024 11:30-0500Body .04 kgRandellrosiokatrina Steveacher Other [employer] Other 01-26-2024 11:30-0500Body cvyemb19.03 [facility]01-26-2024 11:30-0500Diastolic blood wcwypedt21 mm[Hg] Lucila Arnett Other [facility]01-26-2024 11:30-0500 Respiratory rate16 /minLucila Arnett Other [employer] Other 01-26-2024 11:30-3350MtZ6% (BldA) [Mass fraction]100 % Lucila Arnett Other [employer] Other 01-26-2024 11:30-0500Systolic blood ttktmbol937 mm[Hg] Lucila Arnett Other [facility]12-15-2023 10:00-0500 Body rvlmaz524.34 cmLucila Arnett Other [employer] Other 12-15-2023 10:00-0500Body mass index (BMI) [Ratio] 20.78 kg/d0EggjikifLucila Arnett Other [employer] Other 12-15-2023 10:00-0500Body intsow97.59 kgLucila Arnett Other [employer] Other 12-15-2023 10:00-0500Diastolic blood lrpzdfot90 mm[Hg] Lucila Arnett Other [employer] Other 12-15-2023 10:00-0456GtO4% (BldA) [Mass fraction]98 % Lucila Arnett Other [employer] Other 12-15-2023 10:00-0500Systolic blood stvcibam427 mm[Hg] Lucila Arnett Other [employer] Other Encounters Encounter DateEncounter TypeCare ProviderFacilityStart: 06-24-2025 End: 20-08-1524uqeipqpnsyTylzkokd Rohrbacher PURCHASER Work Phone: [facility]2025 End: 66-07-8170Tzjkegw encounter procedureLucila Arnett PURCHASER [facility] Work Phone: Start: 06-22-2025 End: 40-02-9587Oxrqfv flowsheetCorey Marybeth DO Work Phone: [facility] [place] OBGYNStart: 06-22-2025 End: 51-41-0721Snsjbd flowsheetCorey Marybeth DO Work Phone: [facility] [place] [facility]BGYNStart: 06-22-2025 End: 51-09-2936bwpykzrttsBVNRA FAZIONot AvailableStart: 06-22-2025 End: 95-07-5537Rnfajd outpatient visit 15 minutesCorey Marybeth DO Work Phone: [facility] [place] OBGYNComment on above:Dysmenorrhea; Abnormal uterine bleeding (AUB); Bleeding disorder; PCOS (polycystic ovarian syndrome); Pelvic pain in femaleStart: 01-08-2025 End: 49-51-8029hrjexwxuwvDRPUYKY R LACONISNot AvailableStart: 01-08-2025 End: 30-34-7661Yprgbcs encounter procedureLeonel Marlow DO Work Phone: [facility] SWS UCComment on above:Encounter for drug screeningStart: 12-30-2024 End: 55-31-4587thbuayiwxgDtoofxcwsMemorial Health System [facility] Work Phone: Start: 12-30-2024 End: 40-03-2397Jykhgmy encounter procedureCarolinas Continuecare Hospital At Kings Mountainluis manuel [facility] Work Phone: Start: 10-27-2024 End: 90-30-9541hjebtwiobsPpdqrmxb Steveacher PURCHASER Work Phone: [facility] Work Phone: Start: 10-27-2024 End: 11-86-9457Vsmcodn encounter procedureJetheresa Wilsonacher PURCHASER Work Phone: [facility] Work Phone: Start: 09-12-2024 End: 40-93-8405lesasttwuzNrhxqasm Ellyrbacher PURCHASER Work Phone: [facility] Work Phone: Start: 09-12-2024 End: 24-27-7709Mwkviun encounter procedureLucila Arnett PURCHASER Work Phone: [facility] Work Phone: Start: 09-08-2024 End: 63-61-5958qejuwgvkmdXebcjwks Rohrbacher PURCHASER Work Phone: [facility] Work Phone: Start: 09-08-2024 End: 69-84-0897Kmwloggv ReferredLucila Arnett PURCHASER Work Phone: [facility] [place] Work Phone: Start: 09-08-2024 End: 52-25-1177nehzzbdtgoPywqwzziqMemorial Health System [facility] Work Phone: Start: 09-08-2024 End: 20-96-2285Wqdofmc encounter procedureFirsthealth Physician GroupShelby [facility] Hospital Work Phone: Start: 08-29-2024 End: 82-29-6694Iabolseud Result EncounterCorey Marybeth DO Work Phone: [facility] External Department UnsolicitedStart: 08-29-2024 End: 66-19-2392Rysahguon Result EncounterCorey Marybeth DO Work Phone: [facility] External Department UnsolicitedStart: 08-29-2024 Non-patient / Non-visitFirsthealth Physician GroupNorthwest Hospital [facility] Work Phone: Start: 08-27-2024 End: 21-41-2658Haqcgc outpatient visit 15 minutesCorey Marybeth DO Work Phone: [facility] BCP OBComment on above:Pre-op examination; Request for sterilization; Hormone imbalance; Swelling; Mood disorder (CMS/HCC)Start: 08-27-2024 End: 87-85-5189Iuvbzmqjsaqye examination doneCorey Marybeth DO Work Phone: noMS HealthcareStart: 08-27-2024 End: 57-49-1199kouqiaowdjOUCNL FAZIONot AvailableStart: 08-01-2024 End: 39-38-2730Kodganqmk Result EncounterCorey Marybeth DO Work Phone: [facility] External Department UnsolicitedStart: 08-01-2024 End: 31-25-5433Zmbwvajzu Result EncounterCorey Marybeth DO Work Phone: [facility] External Department UnsolicitedStart: 08-01-2024 Non-patient / Non-visitFirluis manuels Physician GroupNorthwest Hospital [facility] Work Phone: Start: 07-30-2024 End: 89-48-9070Homqwf flowsheetCorey Marybeth DO Work Phone: [facility] BCP OBStart: 07-30-2024 End: 49-28-9419Hifykk flowsheetCorey Marybeth DO Work Phone: [facility] BCP OBStart: 07-30-2024 End: 72-18-3981Jelpsk outpatient visit 15 minutesCorey Marybeth DO Work Phone: n[facility] BCP OBComment on above:Pelvic pain in female; state; Request for sterilization; EndometriosisStart: 07-30-2024 End: 19-40-6012xhumtockhoNPDCW FAZIONot AvailableStart: 07-16-2024 End: 81-73-3588Sgtvtqd encounter procedureFirdamir Physician GroupWicken[facility] Work Phone: Start: 07-07-2024 End: 17-77-4162Ramxbdebe Result EncounterCorey Marybeth DO Work Phone: noms External Department UnsolicitedStart: 07-07-2024 End: 01-90-4486Imvmwpiia Result EncounterCorey Marybeth DO Work Phone: noms External Department UnsolicitedStart: 07-07-2024 Non-patient / Non-[facility] Work Phone: Start: 07-06-2024 End: 23-44-3090Wegprxgkl Result EncounterCorey Marybeth DO Work Phone: noms External Department UnsolicitedStart: 07-06-2024 End: 17-12-2252Agrhtyszt Result EncounterCorey Marybeth DO Work Phone: noms External Department UnsolicitedStart: 07-06-2024 Non-patient / Non-visitFirelands Physician GroupNorthwest Hospital [facility] Work Phone: Start: 07-04-2024 End: 61-72-8780Btfgtotao Result EncounterCorey Marybeth DO Work Phone: noms External Department UnsolicitedStart: 07-04-2024 End: 90-55-4542Uqxvgswqp Result EncounterCorey Marybeth DO Work Phone: noms External Department UnsolicitedStart: 06-30-2024 End: 92-25-2454Xpvjrs flowsheetCorey Marybeth DO Work Phone: noms BCP OBStart: 06-30-2024 End: 75-91-1541Vyihno flowsheetCorey Marybeth DO Work Phone: noms BCP OBStart: 06-30-2024 End: 50-31-0338Zmuiuayqi Result EncounterCorey Marybeth DO Work Phone: noms External Department UnsolicitedStart: 06-30-2024 End: 53-77-5808Opyrcg outpatient visit 15 minutesCorey Marybeth DO Work Phone: noms [facility] OBComment on above:Third trimester Start: 06-30-2024 End: 14-48-1890sryzanbhhmZJMPA FAZIONot AvailableStart: 06-27-2024 End: 71-69-4822Qzyixqfwf Result EncounterCorey Marybeth DO Work Phone: NOMS External Department UnsolicitedStart: 06-27-2024 End: 76-60-2057Uwxqspcwq Result EncounterCorey Marybeth DO Work Phone: noms External Department UnsolicitedStart: 06-23-2024 End: 27-54-5531Irhmyq flowsheetCorey Marybeth DO Work Phone: noms BCP OBStart: 06-23-2024 End: 11-57-0586Uddmxb flowsheetCorey Marybeth DO Work Phone: NOBF BCP OBStart: 06-23-2024 End: 60-70-3223Xtkgfb outpatient visit 15 minutesCorey Marybeth DO Work Phone: noms BCP OBComment on above:Third trimester ; 35 weeks gestation of pregnancyStart: 74-45-4277Gav-patient / Non-visitFirelands Physician Group[facility] Work Phone: Start: 06-20-2024 End: 25-14-4786Eqoakuxte Result EncounterCorey Marybeth DO Work Phone: noms External Department UnsolicitedStart: 06-20-2024 End: 38-19-6985Rgzkrusgr Result EncounterCorey Marybeth DO Work Phone: noms External Department UnsolicitedStart: 06-14-2024 End: 96-65-2504Zjyhhuvcx Result EncounterCorey Marybeth DO Work Phone: noms External Department UnsolicitedStart: 06-14-2024 End: 57-30-1779Hdnmclaxb Result EncounterCorey Marybeth DO Work Phone: noms External Department UnsolicitedStart: 06-06-2024 End: 56-23-8476Eursmiawt Result EncounterCorey Marybeth DO Work Phone: noms External Department UnsolicitedStart: 06-06-2024 End: 25-67-3643Ydwffewcs Result EncounterCorey Marybeth DO Work Phone: noms External Department UnsolicitedStart: 06-05-2024 End: 87-89-5286Ibxxtu flowsheetCorey Marybeth DO Work Phone: noms BCP OBStart: 06-05-2024 End: 67-39-5007Rvdxpj flowsheetCorey Marybeth DO Work Phone: noms BCP OBStart: 06-05-2024 End: 87-51-1740Ulswxjbse Result EncounterCorey Marybeth DO Work Phone: noms External Department UnsolicitedStart: 06-05-2024 End: 35-78-1157Bruviw outpatient visit 15 minutesCorey Marybeth DO Work Phone: noms BCP OBComment on above:32 weeks gestation of ; Third trimester ; H/O delivery, currently , first trimester; Pelvic pain in female; Cluster headache, not intractable, unspecified chronicity pattern; Bilateral leg painStart: 05-30-2024 End: 10-11-4292Zcdtppfev Result EncounterCorey Marybeth DO Work Phone: noms External Department UnsolicitedStart: 05-30-2024 End: 84-41-4335Jathbzxgb Result EncounterCorey Marybeth DO Work Phone: noms External Department UnsolicitedStart: 05-19-2024 End: 14-46-7749Cylrsi flowsheetCorey Marybeth DO Work Phone: noms BCP OBStart: 05-19-2024 End: 89-93-3317Rrkksp flowsheetCorey Marybeth DO Work Phone: noms BCP OBStart: 05-19-2024 End: 92-93-2290Iwqubp outpatient visit 15 minutesCorey Marybeth DO Work Phone: noms BCP OBComment on above:Third trimester ; 30 weeks gestation of ; H/O delivery, currently , first trimester; Abdominal pain affecting ; Pelvic pain in female; Prior with placenta abruption in third trimester, antepartum; Other insomniaStart: 05-14-2024 End: 10-14-4966Batzdtvuw Result EncounterCorey Marybeth DO Work Phone: noms External Department UnsolicitedStart: 05-14-2024 End: 33-87-5311Gvhjkgrsx Result EncounterCorey Marybeth DO Work Phone: noms External Department UnsolicitedStart: 05-08-2024 End: 77-72-5539Reymhu flowsheetCorey Marybeth DO Work Phone: noms BCP OBStart: 05-08-2024 End: 41-14-0881Hgsesm flowsheetCorey Marybeth DO Work Phone: noms BCP OBStart: 05-08-2024 End: 65-02-5045Kgljlzjcw Result EncounterCorey Marybeth DO Work Phone: noms External Department UnsolicitedStart: 05-08-2024 End: 00-70-5891Guruvf outpatient visit 15 minutesCorey Marybeth DO Work Phone: noms BCP OBComment on above:Third trimester ; Pelvic pain in female; History of placenta abruption; Dizziness; H/O delivery, currently ; Cluster headache, not intractable, unspecified chronicity pattern; History of miscarriage; Abdominal pain affecting ; Bilateral leg pain; Right hip pain; Low ironStart: 05-03-2024 End: 17-10-7353Urfalphps Result EncounterCorey Marybeth DO Work Phone: noms External Department UnsolicitedStart: 05-03-2024 End: 34-26-1274Lzwqffnjz Result EncounterCorey Marybeth DO Work Phone: noms External Department UnsolicitedStart: 04-24-2024 End: 35-53-5450Miacvb flowsheetCorey Marybeth DO Work Phone: noms BCP OBStart: 04-24-2024 End: 60-79-2033Drbwaw flowsheetCorey Marybeth DO Work Phone: noms BCP OBStart: 04-24-2024 End: 83-93-7311Qvkbyvnli Result EncounterCorey Orthobond Work Phone: noms External Department UnsolicitedStart: 04-24-2024 End: 01-94-6107Ypsaiw outpatient visit 15 minutesCorey Orthobond Work Phone: noms [facility] OBComment on above:26 weeks gestation of ; Gestational diabetes mellitus (GDM), antepartum, gestational diabetes method of control unspecified; Elevated glucose tolerance test; Abdominal pain affecting ; H/O delivery, currently , first trimester; Right hip pain; Prior with placenta abruption in third trimester, antepartum; Pelvic pain in female; Bilateral leg pain; Diabetes mellitus screeningStart: 04-10-2024 End: 95-33-7117Tziplk flowsheetCorey Orthobond Work Phone: noms [facility] OBStart: 04-10-2024 End: 30-90-4970Vvbgdq flowsheetCorey Marybeth [employer] Work Phone: noms [facility] OBStart: 04-10-2024 End: 89-77-8446Vootdp outpatient visit 15 minutesCorey Orthobond Work Phone: noms [facility] OBComment on above:24 weeks gestation of ; Right hip pain; Pelvic pain in female; Abdominal pain affecting ; Prior with placenta abruption in third trimester, antepartum; Bilateral leg painStart: 03-31-2024 End: 68-05-8741dyveezjlttWSGCF R FAZIOProMedica Gurley HospitalStart: 03-25-2024 End: 87-40-8320pmirlnttbwZOIQG R FAZIOProMedica Gurley HospitalStart: 03-20-2024 End: 24-85-0454Iyrflj OnlyNot In System Ref ProvMaternal- Medicine at [facility] HospitalStart: 03-13-2024 End: 20-22-0295Svucskgac Result EncounterCorey Orthobond Work Phone: noms External Department UnsolicitedStart: 03-13-2024 End: 05-91-4437Nslatkbcm Result EncounterCorey Marybeth DO Work Phone: noms External Department UnsolicitedStart: 02-25-2024 End: 68-90-6307Qyklnk outpatient visit 25 minutesTammy Horne MD Work Phone: [phone]-Mjqrt Medicine at [facility] Comment on above:18 weeks gestation of (Primary Dx); Echogenic intracardiac focus of fetus on ultrasound; Placental abnormality in second trimester; History of placenta abruption; History of delivery, currently Start: 02-25-2024 End: 24-37-9880obwdtuvhzjFVZPBParkview Health Bryan Hospitaltart: 01-21-2024 End: 75-69-5335Reigvd outpatient new 60 minutesBari Zepeda MD Work Phone: [phone]-Foigl [facility] Comment on above:History of delivery, currently in first trimester (Primary Dx); Prior with placenta abruption in first trimester, antepartumStart: 01-21-2024 End: 16-79-2535uawuczctdcVEYAL [facility] Hospitaltart: 01-11-2024 End: 04-05-2655Hvrfqu OnlyNot In System Ref ProvMaternal- Medicine at [facility] Hospitaltart: 12-26-2023 End: 35-47-4427Ejvucjmfg Result EncounterCorey Marybeth DO Work Phone: noms External Department UnsolicitedStart: 12-26-2023 End: 73-40-4259Tdpstvpuh Result EncounterCorey Marybeth DO Work Phone: noms External Department UnsolicitedStart: 12-13-2023 End: 81-73-4448Pizuwqakn Result EncounterCorey Marybeth DO Work Phone: noms External Department UnsolicitedStart: 12-13-2023 End: 56-52-5657Lalnvasmo Result EncounterCorey Marybeth DO Work Phone: noms External Department UnsolicitedStart: 12-10-2023 End: 90-46-7366sfoqlpruuiFELYY KATZMount OdiliaCook Hospitalart: 12-10-2023 End: 74-72-1598Bucledjhqdavid Jacobsen Work Phone: MOSES RyegateStart: 12-06-2023 End: 26-40-7238zcggksssoaIDSFM KATZMount OdiliaCook Hospitalart: 12-03-2023 End: 36-36-2235zidpbeteytGFDAA KATZMount [facility]iliaEss[facility]: 11-29-2023 End: 04-19-6783nglkoplqtpKHCDK KATZMount Church HillEssentia Health: 11-26-2023 End: 84-88-3778lvxvvrnnohGTJSN KATZMount Church HillEssentia Health: 11-23-2023 End: 55-63-1049zjrmjdnbeeOFDMS KATZMount Church HillEssentia Health: 11-21-2023 End: 47-13-8757igyyxhieauKBUZK KATZMount OdiliaEssentia Health: 11-19-2023 End: 12-98-9354jdvxuyzyrvCDD LUCILA STEPHENSONacility:FTMCStart: 11-19-2023 End: 33-96-4804Hofpiny encounter procedureLUCILA ARNETT [facility] Start: 11-14-2023 End: 58-27-6365fammqazhfeDnyijihdz [facility] Work Phone: Start: 11-14-2023 End: 80-88-6919Pzrfwuo encounter procedureFirsthealth Physician GroupShelby [facility] Hospital Work Phone: Start: 94-81-4043budtwnuovsORRHHE MISALFacility:BARI Start: 11-02-2023 End: 92-38-4649Lohjni outpatient philomena Stephen MD Work Phone: [facility] [place] Comment on above:Endometriosis (Primary Dx); Pelvic pain; Myalgia of pelvic floor; Dysmenorrhea; Dyspareunia in female; Nausea and vomiting, unspecified vomiting type; Bladder pain; AnxietyStart: 10-17-2023 End: 80-07-0988Hsfzyop encounter procedureMert Physician Group-[facility] Work Phone: Start: 09-14-2023 End: 32-27-1588rmeryyuwthCbwqmpvr Rohrbacher Other [employer] Other Start: 40-48-9304Yrcyns outpatient visit 25 minutes Lucilaleah German [facility] Planotart: 09-14-2023 End: 79-19-0000Uygkpaz encounter procedureMert Physician Group-Start: 08-09-2023 End: 81-34-3244xstbwdijueOyukmgjm Rohrbacher Other [employer] Other Start: 09-67-3847Jnvyjlrho encounterLucila StevechanelAubreyUniversity Hospitals Samaritan Medical Centertart: 08-03-2023 End: 30-24-3765jxqjtaahalTtqqfyyu Rohrbacher Other [employer] Other Start: 47-10-5083Xrtvoq outpatient new 30 minutes Lucila SadiqUniversity Hospitals Samaritan Medical Centertart: 94-52-8275Agwrntdpv encounter Lucila Monserrat Referral CoordinatorStart: 07-12-2020 End: 72-11-3680cmmvdqysceOQ MOI FAZIOFacility:W3Fjipe: 06-25-2020 End: 02-53-8208oljtihzmehGV MOI FAZIOFacility:N3Oywun: 04-30-2020 End: 20-32-9930pqpqrkvogvCJ MOI FAZIOFacility:S3Lqqpl: 04-29-2020 End: 99-31-1101kzeyflfjrfXC MOI FAZIOFacility:H1 Procedures DateProcedureProcedure DetailPerforming ClinicianStart: 56-61-1677DIK [facility] WITH AUTO DIFFCorey Marybeth DO Work Phone: Start: 75-14-7169CM PELVIS TRANSVAGINALCorey Marybeth DO Work Phone: Start: 93-44-9406PSB CBC WITH AUTO DIFFCorey Marybeth DO Work Phone: Start: 35-05-7138Lbgdo dip stick/tablet rgnt non-auto w/o micrscpCorey Marybeth DO Work Phone: Start: 76-78-2972WDF CBC WITH AUTO DIFFCorey Marybeth DO Work Phone: Start: 83-56-7494VKHG CBC WITH PLATELET NO DIFFERENTIALCorey Marybeth DO Work Phone: Start: 74-61-8248LHV DRUG SCREEN RAPID (URINE)Moi Marybeth DO Work Phone: Start: 19-75-9400RM OB BPP W NON-STRESSCorey Marybeth DO Work Phone: Start: 74-55-4521Kgdbp dip stick/tablet rgnt non-auto w/o micrscpCorey Marybeth DO Work Phone: Start: 55-70-2294RD OB GROWTHCorey Marybeth DO Work Phone: Start: 97-19-4573JD OB BPP W NON-STRESSCorey Marybeth DO Work Phone: Start: 53-02-2764Invjm Gp B NAAStart: 41-29-0175Glyxd dip stick/tablet rgnt non-auto w/o micrscpCorey Marybeth DO Work Phone: Start: 36-56-0747MW OB BPP W NON-STRESSCorey Marybeth DO Work Phone: Start: 96-01-7891MA OB BPP W NON-STRESSCorey Marybeth DO Work Phone: Start: 70-42-9794ST OB CERVICAL LENGTHCorey Marybeth DO Work Phone: Start: 70-21-6896GT OB BPP W NON-STRESSCorey Marybeth DO Work Phone: Start: 74-96-6179UA OB GROWTHCorey Marybeth DO Work Phone: Start: 11-74-2859Xoobk dip stick/tablet rgnt non-auto w/o micrscpCorey Marybeth DO Work Phone: Start: 72-90-9805WC OB BPP W NON-STRESSCorey Marybeth DO Work Phone: Start: 63-18-9811Cpqfy dip stick/tablet rgnt non-auto w/o micrscpCorey Marybeth DO Work Phone: Start: 71-00-5072BE OB CERVICAL LENGTHCorey Marybeth DO Work Phone: Start: 59-21-0612WI OB GROWTHCorey Marybeth DO Work Phone: Start: 57-56-2617Kuwsl dip stick/tablet rgnt non-auto w/o micrscpCorey Marybeth DO Work Phone: Start: 20-20-0797VGH CBC WITH AUTO DIFFCorey Marybeth DO Work Phone: Start: 77-89-4665Chuly dip stick/tablet rgnt non-auto w/o micrscpCorey Marybeth DO Work Phone: Start: 69-21-4969ZUS CBC WITH AUTO DIFFCorey Marybeth DO Work Phone: Start: 55-59-9453Idvdp dip stick/tablet rgnt non-auto w/o micrscpCorey Marybeth DO Work Phone: Start: 19-79-9120MYUJGEEQUX OFFICENot In System Ref ProvStart: 85-49-5677EP OB CERVICAL LENGTHCorey Marybeth DO Work Phone: Start: 61-94-5901IY APPENDIXCorey Marybeth DO Work Phone: Start: 46-18-0111CP OB TRANSVAGINALCorey Marybeth DO Work Phone: Start: 66-17-1272IJ OB TRANSVAGINALCorey Marybeth DO Work Phone: Start: 81-54-0495ANHAHYOTVE OFFICENot In System Ref ProvStart: 61-22-3816Fcpxc extractionJENNIFER ROHRBACHER uterine ablationJENNIFER ROHRBACHER Plan of Treatment DateCare ActivityDetailAuthorStart: 06-22-2025 End: 01-91-0654Siskzntlqybd IIIAntithrombin III Lab Routine Dysmenorrhea Abnormal uterine bleeding (AUB) Pelvic pain in female Expected: 06/22/2025 (Approximate), Expires: 06/22/2026NOCT HealthcareComment on above:Expected: 06/22/2025 (Approximate), Expires: 06/22/2026Start: 06-22-2025 End: 93-68-2313Sfki-2 glycoprotein antibodiesBeta-2 glycoprotein antibodies Lab Routine Dysmenorrhea Abnormal uterine bleeding (AUB) Pelvic painin female Expected: 06/22/2025 (Approximate), Expires: 06/22/2026NOCT HealthcareComment on above:Expected: 06/22/2025 (Approximate), Expires: 06/22/2026Start: 06-22-2025 End: 92-25-6728Xqhshlcsfho antibody, IgGCardiolipin antibody, IgG Lab Routine Dysmenorrhea Abnormal uterine bleeding (AUB) Pelvic pain in female Expected: 06/22/2025 (Approximate), Expires: 06/22/2026NOCT HealthcareComment on above: Expected: 06/22/2025 (Approximate), Expires: 06/22/2026Start: 06-22-2025 End: 09-76-5737Lrkbfurdbvs antibody, IgMCardiolipin antibody, IgM Lab Routine Dysmenorrhea Abnormal uterine bleeding (AUB) Pelvic pain in female Expected: 06/22/2025 (Approximate), Expires: 06/22/2026NOCT HealthcareComment on above: Expected: 06/22/2025 (Approximate), Expires: 06/22/2026Start: 06-22-2025 End: 02-42-0426MPKKLPPX Lab Routine Dysmenorrhea Abnormal uterine bleeding (AUB) Pelvic pain in female Expected: 06/22/2025 (Approximate), Expires: 06/22/2026 NOMS HealthcareComment on above:Expected: 06/22/2025 (Approximate), Expires: 06/22/2026Start: 06-22-2025 End: 85-09-3312UKFFRQIWUN Lab Routine Dysmenorrhea Abnormal uterine bleeding (AUB) Pelvic pain in female Expected: 06/22/2025 (Approximate), Expires: 06/22/2026NOMS HealthcareComment on above:Expected: 06/22/2025 (Approximate), Expires: 06/22/2026Start: 06-22-2025 End: 35-49-7552Pjpcza 5 leidenFactor 5 leiden Lab Routine Dysmenorrhea Abnormal uterine bleeding (AUB) Pelvic pain in female Expected: 06/22/2025 (Approximate), Expires: 06/22/2026[facility] Work Phone: comment on above:Expected: 06/22/2025 (Approximate), Expires: 06/22/2026Start: 06-22-2025 End: 20-83-1628Nezegkt [Mass/volume] in Serum or PlasmaProtein, total Lab Routine Dysmenorrhea Abnormal uterine bleeding (AUB) Pelvic pain in female Expected: 06/22/2025 (Approximate), Expires: 06/22/2026NOMS HealthcareComment on above:Expected: 06/22/2025 (Approximate), Expires: 06/22/2026Start: 06-22-2025 End: 31-84-1573Cvedxfr C activityProtein C activity Lab Routine Dysmenorrhea Abnormal uterine bleeding (AUB) Pelvic pain in female Expected: 06/22/2025 (Approximate), Expires: 06/22/2026NOCT HealthcareComment on above:Expected: 06/22/2025 (Approximate), Expires: 06/22/2026Start: 06-22-2025 End: 47-56-4182Nyiypxy S antigen, freeProtein S antigen, free Lab Routine Dysmenorrhea Abnormal uterine bleeding (AUB) Pelvic pain in female Expected: 06/22/2025 (Approximate), Expires: 06/22/2026NOCT HealthcareComment on above: Expected: 06/22/2025 (Approximate), Expires: 06/22/2026Start: 06-22-2025 End: 25-73-9670GL PelvisUS Pelvis w/ TV Imaging Routine Dysmenorrhea Abnormal uterine bleeding (AUB) Pelvic pain in female Expected: 06/22/2025, Expires: 06/22/2026NOCT HealthcareComment on above:Expected: 06/22/2025, Expires: 06/22/2026Start: 06-22-2025 End: 76-20-1836Gljhusj encounter oazcqbzzx95/03/2025 1:00 PM EST Office Visit NOMRosa GARSIA [address] [place] [phone] Moi Rueda DO [address] [place] [address] CULLEN GRANTNStart: 89-58-7752AXQBW- 19 Vaccine ( season)COVID-19 Vaccine ( season)[facility]OMS HealthcareStart: 63-57-2624ZYWNY-19 Vaccine ( season)COVID-19 Vaccine ( season)[facility]OM[facility] HealthcareStart: 47-76-3210Wmvjthppr vaccinationNOCT HealthcareStart: 85-63-2241Zuqvr BMI ScreeningAdult BMI ScreeningProMedica Health SystemStart: 89-40-1524Ythgqdt ScreeningTobacco ScreeningProAdena [facility] Centerca [facility] SystemStart: 38-80-3346Dwfqi BMI ScreeningAdult BMI ScreeningProAdena [facility] Medical Centerca Health SystemStart: 56-37-2965Smbiytk ScreeningTobacco ScreeningMiami Valley Hospitalca Health System Start: 68-34-7156Jwpdgqy referralLima [facility] Work Phone: Start: 99-54-5970Lbvbxsw referralLima Memorial Hospital Work Phone: Start: 10-02-2024 End: 97-86-8224Ykkviyy encounter /13/2025 11:20 AM EST Office Visit [facility] OB [address] [place] [phone] Moi Rueda, DO [address] [place] [address] [facility] OBStart: 34-84-8677UdyaeskdiCleveland Clinic Children's Hospital for Rehabilitationtart: 80-61-4452Tlcjtjf [facility] Work Phone: Start: 08-27-2024 End: 09-69-5493Jkgy nitrogen [Mass/volume] in Serum or PlasmaBUN Lab Routine Hormone imbalance Swelling Expected: 08/27/2024 (Approximate), Expires: 08/27/2025[facility] HealthcareComment on above:Expected: 08/27/2024 (Approximate), Expires: 08/27/2025Start: 08-27-2024 End: 90-55-9829shjvurbnjw27/08/2025 1:20 PM EST Visit [facility] OB [address] [place] [phone] Moi Rueda, DO [address] [place] [address] [facility] OBStart: 07-30-2024 End: 36-78-2513BSYSDNXK(R) ADVANCED VAGINITIS PLUS, TMASURESWAB(R) ADVANCED VAGINITIS PLUS, TMA Pathology and Cytology Routine Pelvic pain in female Expect ed: 07/30/2024 (Approximate), Expires: 07/30/2025[facility]CT Healthcare Work Phone: comment on above:Expected: 07/30/2024 (Approximate), Expires: 07/30/2025Start: 07-30-2024 End: 52-15-9772BB for pregnancyUS PELVIS-TRANSVAG IF INDICATED Imaging Routine Pelvic pain in female Expected: 07/30/2024 (Approximate), Expires: 07/30/2025 [facility]OM[facility] HealthcareComment on above:Expected: 07/30/2024 (Approximate), Expires: 07/30/2025Start: 07-30-2024 End: 11-70-1811Bjwcitn encounter bebtzbzkj84/11/2024 1:20 PM EST Office Visit [facility] [address] [place] [phone] Moi Rueda, DO [address] [place], [place] [id number] ArrivedNOMS [facility] OBComment on above:ArrivedStart: 06-30-2024 End: 52-62-6318Igwpslk encounter cmouommot44/11/2024 10:30 AM EST Routine [facility] [place] [address] [place] [phone] Moi Rueda, DO [address] [place], [place] [phone] [facility] BCP OBStart: 06-30-2024 End: 58-20-6237Vgnbixljuyrt / ancillary services fsrtmfjami89/11/2024 10:00 AM EST Ancillary Procedure [facility] [address] [facility] [place] [place] [phone] [facility] BCP OBStart: 06-23-2024 End: 62-91-0181Mjzwr B DNA probe, amplificationStrep B DNA probe, amplification Lab Routine Third trimester Expected: 06/23/2024 (Approximate), Expires: 06/23/2025[facility] Work Phone: comment on above:Expected: 06/23/2024 (Approximate), Expires: 06/23/2025Start: 06-23-2024 End: 75-48-1653Vqrbcgt encounter procedureNOMS BCP OBComment on above:Arrived Start: 06-05-2024 End: 80-60-1352Nddskzv encounter procedureNOMS BCP OBComment on above:Arrived Start: 06-05-2024 End: 49-21-7939Kvjowhhakxhw / ancillary services uclzdcknzr83/17/2024 10:00 AM EDT Ancillary Procedure [facility] [address] [place], [place] [phone] [facility]OM[facility] BCP OBStart: 05-19-2024 End: 93-38-8158NY biophysical profile w non stress testUS biophysical profile w non stress test Imaging Routine H/O delivery, currently , first trimester Abdominal pain affecting Pelvic pain in female Prior with placenta abruption in third trimester, antepartum Expected: 05/19/2024 (Approximate), Expires: 05/19/2025[facility] Work Phone: comment on above:Expected: 05/19/2024 (Approximate), Expires: 05/19/2025Start: 05-19-2024 End: 20-87-6504Ojelhod encounter procedureNOMS BCP OBComment on above:Arrived Start: 05-08-2024 End: 21-54-2465Cpjdaih encounter qnasdbihj40/19/2024 11:10 AM EDT Routine [facility] [address] [place] [phone] Moi Rueda, DO [address] [place], [place] [phone] [facility]OM[facility] BCP OBStart: 05-08-2024 End: 73-42-1948Mwgkgtmyxezc / ancillary services yrkaewibtj78/19/2024 10:30 AM EDT Ancillary Procedure [facility] [address] [place], [place] [phone] [facility] BCP OBStart: 04-24-2024 End: 51-29-7413Stidtufyhnx of glucose 1 hour after glucose challenge for glucose tolerance testGlucose tolerance, 1 hour Lab Routine Elevated glucose tolerance test Diabetes mellitus screening Expected: 04/24/2024 (Approximate), Expires: 04/24/2025[facility] Work Phone: comment on above:Expected: 04/24/2024 (Approximate), Expires: 04/24/2025Start: 04-24-2024 End: 38-58-3908GW for pregnancyUS OB SCAN FOR GROWTH Imaging Routine Elevated glucose tolerance test Abdominal pain affecting H/O delivery, currently , first trimester Prior with placenta a bruption in third trimester, antepartum Pelvic pain in female Expected: 04/24/2024 (Approximate), Expires: 04/24/2025NOMS HealthcareComment on above: Expected: 04/24/2024 (Approximate), Expires: 04/24/2025Start: 04-24-2024 End: 74-17-6831Eciodqp encounter procedureNOPARNASSUS CAMPUS OBComment on above:Arrived Start: 51-19-1024Arjyhnwyk vaccinationInfluenza VaccineKettering Health Springfield Start: 04-10-2024 End: 41-60-3738Embunfx encounter lavkhxvxc75/22/2024 10:40 AM EDT Routine [facility] [address] [facility] [place] [address] Moi Rueda, DO [address] [place] [address] ArrivedVETER[facility] OBComment on above: ArrivedStart: 03-25-2024 End: 39-29-8402Krgpuwi encounter iwwjksolp17/06/2024 10:30 AM EDT Appointment [facility] [address] [place] [phone] Health [place] US ImagingStart: 03-11-2024 End: 08-66-7043Bbjzwrp encounter rzygkdfxq08/23/2024 10:45 AM EDT Appointment [facility] [address] [facility] [place] [address] JgpMwllhsKettering Health Springfield US ImagingStart: 02-25-2024 End: 06-17-9067Mdjvpfc encounter procedureProWVUMedicine Barnesville Hospital US ImagingStart: 01-21-2024 End: 12-29-8894Ouzcfpc encounter procedureOhioHealth Mansfield Hospital US ImagingStart: 86-80-7937GXU Vaccines (1 - 3-dose SCDM series)HPV Vaccines (1 - 3-dose SCDM series)[facility] HealthcareStart: 11-02-2023 End: 50-73-9250WB Pelvis WO and W contrast IVMRI PELVIS WITH AND WITHOUT CONTRAST Imaging Routine Endometriosis Pelvic pain Expected: 11/02/2023, Expires: 11/01/2024[facility] DaytonComment on above:Expected: 11/02/2023, Expires: 11/01/2024Start: 40-44-2279Kkarttt referralLima Memorial Hospital Work Phone: Start: 46-85-6660DLYTR-19 VACCINE ( season) COVID-19 VACCINE ( season)[facility]: 04-20-2023 Influenza vaccinationINFLUENZA VACCINE (#1)[facility]: 16-78-5894Nxxzhwqjr for malignant neoplasm of cervixOSGeorgetown Behavioral Hospital Start: 98-16-8963GQhI,Tdap and Td Vaccines (1 - Tdap)DTaP,Tdap and Td Vaccines (1 - Tdap)[facility] SystemStart: 68-81-9231Laxleaiug B vaccinationHEP B VACCINE (1 of 3 - 19+ 3-dose series)[facility]: 11-08-2015 Hepatitis B Vaccines (1 of 3 - 19+ 3-dose series)Hepatitis B Vaccines (1 of 3 - 19+ 3-dose series)[facility] HealthcareStart: 60-47-8076Yjdtt diphtheria, tetanus and acellular pertussis (DTaP) vaccinationTDAP (ADULT)[facility] Start: 08-72-3913Wgtng BMI ScreeningAdult BMI ScreeningKettering Health Springfield Start: 41-12-0447Dookaxjeg for Chlamydia trachomatisCHLAMYDIA SCREENOSU [facility]art: 62-98-6646APQ screeningHIV SCREENING DISCUSSIONOSU [facility]: 62-43-2543Gzmylxvzokg for human papillomavirusHPV VACCINE ADOL (1 - 3-dose series)[facility]: 02-65-7578Tjxgfzl of varicella vaccinationVaricella Vaccines (1 of 2 - 13+ 2-dose series)[facility] HealthcareStart: 82-77-6243Otohlvbzrb ScreeningDepression ScreeningProUniversity Hospitals [facility] SystemStart: 13-59-2900Lhvdlkv ScreeningTobacco ScreeningProUniversity Hospitals Samar[facility] SystemStart: 28-61-0913LNjA/Tdap/Td Vaccines (1 - Tdap)DTaP/Tdap/Td Vaccines (1 - Tdap)[facility] HealthcareStart: 29-07-0689COU Vaccines (1 of 1 - Standard series) MMR Vaccines (1 of 1 - Standard series)[facility] HealthcareStart: 14-07-5546Rddgtbqaq C screeningHEPATITIS C VIRUS SCREENINGOSU [facility]: 74-76-8747Vzbqjvglx for Chlamydia trachomatisGONORRHEA SCREENOSU [facility]: 79-68-6326Prwwqdv vaccinationTETANUSOSGeorgetown Behavioral Hospital Alanine aminotransferase [Enzymatic activity/volume] in Serum or PlasmaALT Lab Routine Hormone imbalance Swelling Ordered: 08/27/2024[facility] HealthcareComment on above:Ordered: 08/27/2024spartate aminotransferase [Enzymatic activity/volume] in Serum or PlasmaAST Lab Routine Hormone imbalance Swelling Ordered: 08/27/2024 [facility] HealthcareComment on above:Ordered: 08/27/2024topobium vaginae DNA [Presence] in Vaginal fluid by ABBY with probe detectionOhio State East HospitalBacterial vaginosis associated bacterium 2 DNA [Presence] in Vaginal fluid by ABBY with probe detectionOhio State East HospitalCBC panel - Blood by Automated countCBC Lab Routine state Ordered: 07/30/2024[facility] HealthcareComment on above:Ordered: 07/30/2024BC W Auto Differential panel - BloodCBC and differential Lab Routine Hormone imbalance Swelling Ordered: 08/27/2024[facility] Healthcare Work Phone: comment on above:Ordered: 5CBC W Auto Differential panel - BloodCBC and differential Lab Routine Dysmenorrhea Abnormal uterine bleeding (AUB) Pelvic pain in femaleOrdered: 06/22/2025[facility] Healthcare Comment on above:Ordered: 06/22/2025HLAMYDIA TRACHOMATIS (GENITO/STI)CHLAMYDIA TRACHOMATIS (GENITO/STI) Lab Routine Pelvic pain in female Ordered: 07/30/2024 [facility] HealthcareComment on above:Ordered: 07/30/2024reatinine [Mass/volume] in Serum or PlasmaCreatinine Lab Routine Hormone imbalance Swelling Ordered: 08/27/2024[facility] HealthcareComment on above:Ordered: 08/27/2024DHEA-sulfateDHEA- sulfate Lab Routine Dysmenorrhea Abnormal uterine bleeding (AUB) Pelvic pain in female Ordered: 06/22/2025[facility] HealthcareComment on above:Ordered: 06/22/2025 Follicle stimulating hormoneFollicle stimulating hormone Lab Routine Dysmenorrhea Abnormal uterine bleeding (AUB) Pelvic pain in female Ordered: 06/22/2025[facility] HealthcareComment on above:Ordered: 06/22/2025hCG, quantitative, pregnancyhCG, quantitative, Lab Routine Dysmenorrhea Abnormal uterine bleeding (AUB) Pelvic pain in female Ordered: 06/22/2025[facility] HealthcareComment on above:Ordered: 06/22/2025Hemoglobin A1c/Hemoglobin.total in BloodHemoglobin A1c Lab Routine Dysmenorrhea Abnormal uterine bleeding (AUB) Pelvic pain in female Ordered: 06/22/2025[facility] HealthcareComment on above:Ordered: 06/22/2025 Luteinizing hormoneLuteinizing hormone Lab Routine Dysmenorrhea Abnormal uterine bleeding (AUB) Pelvic pain in female Ordered: 06/22/2025[facility] HealthcareComment on above:Ordered: 06/22/2025Megasphaera sp type 1 DNA [Presence] in Vaginal fluid by ABBY with probe detectionOhio State East HospitalNeisseria gonorrhoeae DNA [Presence] in Unspecified specimen by ABBY with probe detection Neisseria gonorrhea DNA probe, direct Lab Routine Pelvic pain in female Ordered: 07/30/2024[facility] HealthcareComment on above:Ordered: 07/30/2024atient [facility] Work Phone: Thyrotropin [Units/volume] in Serum or PlasmaTSH Lab Routine Hormone imbalance Swelling Ordered: 08/27/2024[facility] HealthcareComment on above:Ordered: 08/27/2024Thyrotropin [Units/volume] in Serum or PlasmaTSH Lab Routine Dysmenorrhea Abnormal uterine bleeding (AUB) Pelvic pain in female Ordered: 06/22/2025[facility] HealthcareComment on above:Ordered: 06/22/2025Thyroxine (T4) free [Mass/volume] in Serum or PlasmaT4, free Lab Routine Hormone imbalance Swelling Ordered: 08/27/2024[facility] HealthcareComment on above:Ordered: 08/27/2024 Thyroxine (T4) free [Mass/volume] in Serum or PlasmaT4, free Lab Routine Dysmenorrhea Abnormal uterine bleeding (AUB) Pelvic pain in female Ordered: 10/2024[facility] HealthcareComment on above:Ordered: 06/22/2025 Immunizations Immunization DateImmunizationNotesCare YaetqrsiMsypehuc85-75-3133hkhezcyyy virus vaccine, unspecified formulationCorey Marybeth DO Work Phone: [facility] Healthcare Payers DatePayer CategoryPayerPolicy [id number] Health InsuranceNE[facility]ERE MEDICAID Member Subscriber Plan / Payer (Effective 2024-Present) Name: Colton Medrano Grady Relation to Subscriber: Self Name: Colton Medrano Payer ID: Not on file Group ID: [id number] Type: Not on file Address: [facility] [address] [place], [place] [address] [id number] 2024Medicaid ..[id number] [id number] 63-21-7044Ulzhejebup of Defense ( and others)[id number] Department of Defense ( and others) .[id number] () Member Subscriber Plan / Payer (Effective 2023-2024) Name: Colton Medrano Relation to Subscriber: Spouse Name: LIDIA MEDRANO Date of : 1998 (Home) Address: [address] [place] [address] Payer ID: [id number] (NAIC) Group ID: Not on file Type: Not on file Address: [address] [id number] 2.0.1.529870.3.57[id number] 2.0.1.351906.3.57[id number] 2.0.1.909047.3.57[id number] 2.0.1.622079.3.57[id number] 2.0.1.400755.3.57[id number] 2.0.1.795993.3.57[id number] 2.0.1.218496.3.57[id number] 2.840.1.352522.3.57[id number] 2.840.1.458502.3.57[id number] 2.16840.1.135548.3.57[id number] 2.16.840.1.373597.3.57[id number] 2.16840.1.017412.3.57[id number] 2.16840.1.616786.3.57[id number] 2.840.1.062483.3.57[id number] 2.840.1.500736.3.57[id number] 2.0.1.618178.3.57[id number] 2.0.1.951626.3.57[id number] 2.840.1.347398.3.57[id number] 2.0.1.640324.3.57[id number] 2.840.1.906109.3.57[id number] 2.840.1.576123.3.579.2.569163-36-5386Vgicbdz6260756 2.16840.1.546155.3.57[id number] 2.840.1.708421.3.57[id number] 2..840.1.349576.3.579.2.96[id number] 2.16.840.1.576813.3.579.2.388842-02-6764Peikmjrcde of Defense ( and others)[id number] of Defense ( and others)[id number] Department of Defense ( and others)[id number] 2..840.1.447282.Unknown [id number] 2.16.840.1.068399.3.579.2.531 Social History DateTypeDetailFacilityStart: 11-02-2023 End: 75-82-8142Abs Assigned At BirthEast [facility] CenterStart: 11-02-2023 End: 29-76-4789Xpmrtra smoking status NHISNever smoked tobaccoOSAshtabula County Medical Center CenterStart: 11-02-2023 End: 44-29-0271Reosntd use and exposureSmokeless tobacco non-userOSAshtabula County Medical Center CenterStart: 69-70-9935Namumwaby beverage intakeLifetime non-drinker (finding)OSAshtabula County Medical Center CenterStart: 11-02-2023 End: 60-13-8535Hyqwkcc of Social functionOSAshtabula County Medical Center CenterStart: 78-71-1024Lal assigned at birthNot on fileGood Samaritan Hospital CenterStart: 57-37-6687Wyk Assigned At BirthFeAdena Pike Medical Center CenterStart: 01-96-5058Qlvxrac smoking status NHISUnknown if ever smokedOrthoAlliance of [place] Start: 19-61-8699Kdmnukr intakeAlcohol Use DetailsOrthoAlliance of PennsylvaniaStart: 00-66-0611Ccdlpq OrientationLesbian, lynch or homosexualOrthoAlliance of [place] Start: 07-54-7627IepjmlbnoXXSQ HealthcareStart: 09-08-2024 End: 65-34-1066QifHemjgd (finding)[facility] CenterStart: 01-21-2024 End: 87-86-1257Kdnzasyjn beverage intakeEx-drinker (finding)docBeattart: 28-63-9810Dcssnf the past 12 months we worried whether our food would run out before we got money to buy more.Never CookBriteSt. Albans HospitalSky Level Enterprieses Medical Equipment Procedure CodeEquipment CodeEquipment Original TextEquipment IdentifierDates1 strip by In Vitro route Daily Use in the morning prior to breakfast, 1 hour after each meal for atotal of 4times daily.[id number]: 04-24-2024 End: each by In Vitro route Daily Use to check FSBS four times daily [id number]: 04-24-2024 End: 05-24-2024 Clinical Notes 06-25-2020 to 06-22-2025 Note Date & LshwAxneHjcaqelg09-40-1104 History of Present illness Narrative* Moi Rueda, - 06/22/2025 1:00 PM EST Reason for Appointment: Patient ID: Colton Medrano is a 29 y.o. female who [...] placenta abruption 01/03/2024 Nausea and vomiting in ([facility]) 01/03/2024 Heartburn during in first trimester ([facility]) 01/03/2024 H/O delivery, currently , first trimester ([facility]) 01/03/2024 Abdominal pain affecting ([facility]) 01/03/2024 First trimester ([facility]) 01/03/2024 Dizziness 01/03/2024 Pelvic pain in female 03/27/2024 Second trimester ([facility]) 03/27/2024 Diabetes mellitus screening 03/27/2024 24 weeks gestation of ([facility]) 04/10/2024 Prior with placenta abruption in third trimester, antepartum ([facility]) 04/10/2024 Resolved Ambulatory Problems Diagnosis Date [...] nursing note reviewed. Exam conducted with a emergency generator mechanic present. Vitals: Estimated body mass index is 19.22 kg/m as calculated from the following: Height as [...] of: Moi Rueda DO documented in this [facility]05-22-2025 History of Present illness Narrative* Pedro Davis MA - 01/08/2025 3:30 PM EDT Pt presents today for a pre-enrollment drug screen and Physical Exam for ines ROW[place]. Pt verified by photo ID. documented in this [facility]03-10-2025 Evaluation note* Diagnosis Onset Date Resolution Status Admit Date Endometriosis acuteMarch 2024 10:18amEndometriosisacuteMay 2024 8:24am [facility] Work Phone: 1(342) 973-649001-20-2025 Chief complaint+Reason for visit Narrative * Chief Complaint Admit Date referral for psychologist September 08, 2024 1:36pm N89.8 September 08, 2024 3 :20pm VIRTUAL:Tooth Infection September 12 9:50am medical concerns October 27, 2024 10: 18am Reason for Visit Admit Date Endometriosis September 08, 2024 1 :36pm Generalized anxiety disorder August 1:36pm Obsessive compulsive disorder September 082024 1:36pm PTSD (post-traumatic stress disorder) [facility] mauricio 2024 1:36pm TBI (traumatic brain injury) August 1:36pm Vaginal discharge September 08, 2024 1 :36pm Tooth abscess September 12, 2024 9 :50am Endometriosis October 27, 2024 10: 18am [facility] Work Phone: 1(158) 661-497101-20-2025 Evaluation note* Diagnosis Onset Date Resolution Status Admit Date Endometriosis acuteJanuary 2024 1:36pmGeneralized anxiety disorderacuteJanuary 2024 1:36pmObsessive compulsive disorderacuteJanuary 2024 1:36pmPTSD (post-traumatic stress disorder)acuteJanuary 2024 1:36pmTBI (traumatic brain injury)acuteJanuary 2024 1:36pmVaginal dischargeacuteJanuary 2024 1:36pmTooth abscessacuteJanuary 2024 9:50amEndometriosisacuteMarch 2024 10:18am [facility] Work Phone: 1(176) 562-575101-20-2025 Hospital Discharge instructionsAmbulatory Orders* Disability Placard Time Frame: 09/08/24, Location: Determined By Patient * Referral to Psychiatry Time Frame: 09/08/24, Location: None Selected [facility] Work Phone: 1(197) 413-247101-08-2025 History of Present illness Narrative* Shreya Songmary - 08/27/2024 1:20 PM EST Reason for Appointment: Patient ID: Colton Medrano is a 28 y.o. female who presents for Pre-op Visit Patient presents today for Pre Op/Post Follow Up appointment. Patient is scheduled to undergo Da Rosa Elena assisted Bilateral Laparoscopic Salpingectomy on 09/26/[address] Rueda at [facility]. MEDICATIONS Current Outpatient Medications Medication Instructions Alcohol [...] ondansetron 4 mg disintegrating tablet - Active Apismkki-Ulm-Yi-FA ( 1 + IRON PO) Daily RT [...] Respiratory: Negative. Cardiovascular: Negative. Gastrointestinal: Negative. Genitourinary: Negative. Musculoskeletal: Negative. Skin: Negative. Neurological: Negative. All [...] nursing note reviewed. Exam conducted with a emergency generator mechanic present. Vitals: There is no height or weight on file to calculate BMI. BP: No LMP recorded. ASSESSMENT & PLAN ICD-10-CM 1. Pre-op examination Z01.818 2. Request for sterilization Z30.2 Post Follow Up: Patient is doing well and has no complaints at this time. Patient presents today for 6 week visit. Patient is s/p Vaginal delivery. Patient states depression is there- but denies suicidal and homicidal ideations. All options were discussed with the patient regarding control and patient desires permanent sterilization. 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 Pt given Daisy's extension for . Pt searching for pyschiatrist- rx for celexa faxed to pharmacy. Pt given labs to have obtained. Pre Op: Patient is doing well but has desire for sterilization. I have discussed conservative management vs. surgical management with the patient in detail and patient desires surgical management at this time. Patient has voiced understanding that a Bilateral Salpingectomy is considered to be permanent and patient will undergo Da Rosa Elena assisted Bilateral Laparoscopic Salpingectomy on 09/26/2024. Surgical consents were signed, mmc was reviewed, and patient is to proceed to [facility] OR. Follow Up: Patient is to follow up between 1-2 weeks post op to assess proper healing and recovery from procedure. Documented by MARY Paulino on behalf of: Moi Rueda DO documented in this encounterSaint Joseph Hospital [id number] History of Present illness Narrative* Noris Stout LPN - 07/30/2024 1:20 PM EST Reason for Appointment: Patient ID: Colton Medrano is a 28 y.o. female who presents for Pelvic Pain Patient presents today for Acute Visit. and Post Follow Up appointment. MEDICATIONS Current Outpatient Medications Medication Instructions [...] ondansetron 4 mg disintegrating tablet - Active Ynfclkef-Fca-Vx-FA ( 1 + IRON PO) Daily RT [...] Past Medical History: Diagnosis Date Anxiety Depression ([facility]) Endometriosis OCD (obsessive compulsive disorder) ([facility]) PTSD (post-traumatic stress disorder) ([facility]) HISTORY PAST MEDICAL HISTORY SOCIAL HISTORY Past Medical History: Diagnosis Date Anxiety Depression ([facility]) Endometriosis OCD (obsessive compulsive disorder) ([facility]) PTSD (post-traumatic stress disorder) ([facility]) Social History Tobacco Use Smoking [...] Respiratory: Negative. Cardiovascular: Negative. Gastrointestinal: Negative. Genitourinary: Negative. Musculoskeletal: Negative. Skin: Negative. Neurological: Negative. All [...] nursing note reviewed. Exam conducted with a emergency generator mechanic present. Vitals: There is no height or weight on file to calculate BMI. BP: 98/62 Patient's last menstrual period was 10/20/2023. ASSESSMENT & PLAN ICD-10-CM 1. Pelvic pain in female R10.2 Pt presents in the period with pelvic pain. Cultures obtained without difficulty. Pt advised to have an ultrasound. Pt desires hysterectomy- discussed having to wait 6-12 months after childbirth. Pt does not have to have embx d/t pelvic pain and endometriosis. Pt desires sterilization- Pt to have a bilateral salpingectomy. . Documented by Noris Stout LPN on behalf of: Moi Rueda DO documented in this encounterSaint Joseph Hospital [id number] Chief complaint+Reason for visit Narrative* Chief Complaint Admit Date Med f/u July 16, 2024 12:47pm referral for psychologist September 08, 2024 1:36pm Reason for Visit Admit Date Generalized anxiety disorder July 162023 12:47pm Endometriosis September 08, 2024 1 :36pm Generalized anxiety disorder August 1:36pm Obsessive compulsive disorder September 082024 1:36pm PTSD (post-traumatic stress disorder) [facility] 2024 1:36pm TBI (traumatic brain injury) August 1:36pm Vaginal discharge September 08, 2024 1 :36pm [facility] Work Phone: 1(465) 772-440911-27-2024 Chief complaint+Reason for visit Narrative * Chief Complaint Admit Date Med f/u July 16, 2024 12:47pm referral for psychologist September 08, 2024 1:36pm Vaginal Discharge September 08, 2024 3 :20pm Reason for Visit Admit Date Generalized anxiety disorder July 162023 12:47pm Endometriosis September 08, 2024 1 :36pm Generalized anxiety disorder August 1:36pm Obsessive compulsive disorder September 082024 1:36pm PTSD (post-traumatic stress disorder) [facility] 2024 1:36pm TBI (traumatic brain injury) August 1:36pm Vaginal discharge September 08, 2024 1 :36pm [facility] Work Phone: 1(697) 100-905811-27-2024 Chief complaint+Reason for visit Narrative * Chief Complaint Admit Date Med f/u July 16, 2024 12:47pm referral for psychologist September 08, 2024 1:36pm N89.8 September 08, 2024 3 :20pm VIRTUAL:Tooth Infection September 12 9:50am Reason for Visit Admit Date Generalized anxiety disorder July 162023 12:47pm Endometriosis September 08, 2024 1 :36pm Generalized anxiety disorder August 1:36pm Obsessive compulsive disorder September 082024 1:36pm PTSD (post-traumatic stress disorder) [facility] 2024 1:36pm TBI (traumatic brain injury) August 1:36pm Vaginal discharge September 08, 2024 1 :36pm [facility] Work Phone: 1(963) 476-592311-27-2024 Evaluation note* Diagnosis Onset Date Resolution Status Admit Date Generalized anxiety disorder acuteNovember 2023 12:47pmEndometriosisacuteJanuary 2024 1:36pm Generalized anxiety disorderacuteAuguary 2024 1:36pmObsessive compulsive disorderacuteAuguary 2024 1:36pmPTSD (post-traumatic stress disorder)acute September 08, 2024 1:36pmTBI (traumatic brain injury)acuteJan2024 1:36pmVaginal dischargeacuteSeptember 08, 2024 1:36pm [facility] Work Phone: 1(683) 126-818111-11-2024 History of Present illness Narrative* Zakiya Traylor LPN - 06/30/2024 10:30 AM EST Reason for Appointment: Patient ID: Colton Medrano is a 28 y.o. female who presents for No chief complaint on file. Patient presents today for Return OB appointment. MEDICATIONS Current Outpatient Medications Medication Instructions Alcohol Swabs (Alcohol Prep Pad) 70 % pads 1 Pad, Topical, Daily, Use four times daily to check FSBS. aspirin 81 mg, Daily Blood Glucose Monitoring Suppl ([place]munk-Abzena Glucometer) w/Device kit 1 kit, Does not [...] ondansetron 4 mg disintegrating tablet - Active Fdhgessk-Prv-Ea-FA ( 1 + IRON PO) Daily RT [...] compulsive disorder) (CMS/HCC) PTSD (post-traumatic stress disorder) ([facility]) HISTORY PAST MEDICAL HISTORY SOCIAL HISTORY Past Medical History: Diagnosis Date Anxiety Depression ([facility]) Endometriosis OCD (obsessive compulsive disorder) ([facility]) PTSD (post-traumatic stress disorder) ([facility]) Social History Tobacco Use Smoking [...] nursing note reviewed. Exam conducted with a emergency generator mechanic present. Vitals: There is no height or [...] to have pelvic exam today. Patient to haveIOL on 07/06/24 0000 (midnight). Patient signed consents prior to leaving office and nursing called [facility] to confirm patient is on the books. Spoke with Fire Alarm Technician who will reach out to patients insurance company as patient voiced her employer is inquiring as to when patient is going to return to work . Patient to return to clinic for post appointment. Documented by Zakiya Traylor LPN on behalf of: Moi Marybeth, DO documented in this encounterSaint Joseph Hospital [id number] History of Present illness Narrative* Zakiya Traylor LPN - 06/23/2024 10:10 AM EST Reason for Appointment: Patient ID: Colton Medrano is a 28 y.o. female who presents for Routine Visit Patient presents today for Return OB appointment. MEDICATIONS Current Outpatient Medications Medication Instructions Alcohol Swabs (Alcohol Prep Pad) 70 % pads 1 Pad, Topical, Daily, Use four times daily to check FSBS. aspirin 81 mg, Daily Blood Glucose Monitoring Suppl (D-Abzena Glucometer) w/Device kit 1 kit, Does not [...] ondansetron 4 mg disintegrating tablet - Active Qjjhtqny-Uma-Dq-FA ( 1 + IRON PO) Daily RT [...] Past Medical History: Diagnosis Date Anxiety Depression ([facility]) Endometriosis OCD (obsessive compulsive disorder) ([facility]) PTSD (post-traumatic stress disorder) ([facility]) HISTORY PAST MEDICAL HISTORY SOCIAL HISTORY Past Medical History: Diagnosis Date Anxiety Depression ([facility]) Endometriosis OCD (obsessive compulsive disorder) ([facility] [facility]) PTSD (post-traumatic stress disorder) ([facility]) Social History Tobacco Use Smoking [...] nursing note reviewed. Exam conducted with a emergency generator mechanic present. Vitals: There is no height or [...] having IOL on 07/06/24 @ 0000. Called [facility] and patient is on the books [...] of: Moi Rueda DO documented in this encounterSaint Joseph Hospital [id number] History of Present illness Narrative* Zakiya Traylor LPN - 06/05/2024 10:40 AM EDT Reason for Appointment: Patient ID: Colton Medrano is a 28 y.o. female who [...] ondansetron 4 mg disintegrating tablet - Active Ghemxrnm-Vzu-Ou-FA ( 1 + IRON PO) Daily RT [...] Depression (CMS/HCC) Endometriosis OCD (obsessive compulsive disorder) ([facility]/HCC) PTSD (post-traumatic stress disorder) ([facility]) HISTORY PAST MEDICAL HISTORY SOCIAL HISTORY Past Medical History: Diagnosis Date Anxiety Depression (CMS/HCC) Endometriosis OCD (obsessive compulsive disorder) ([facility]) PTSD (post-traumatic stress disorder) ([facility]) Social History Tobacco Use Smoking [...] nursing note reviewed. Exam conducted with a emergency generator mechanic present. Vitals: There is no height or [...] continue with NST/BPP's and to return to clinicin 2 weeks for routine OB appointment. Patient to scheduled growth scan on 06/30/24. Transcribed by Zakiya Traylor LPN on behalf of: Moi Rueda DO documented in this encounterSaint Joseph Hospital [id number] History of Present illness Narrative* Zakiya Traylor LPN - 05/19/2024 10:30 AM EDT Reason for Appointment: Patient ID: Colton Medrano is a 28 y.o. female who presents for Routine Visit Patient presents today for Return OB appointment. MEDICATIONS Current Outpatient Medications Medication Instructions Alcohol Swabs (Alcohol Prep Pad) 70 % pads 1 Pad, Topical, Daily, Use four times daily to check FSBS. aspirin 81 mg, Oral, Daily Blood Glucose Monitoring Suppl (D-Care Glucometer) w/Device kit 1 kit, Does not apply, Daily, Use four times daily to check FSBS. In the morning prior to breakfast & 1 hour after each meal for a total of 4times daily. cyclobenzaprine (Flexeril) 10 MG tablet cyclobenzaprine 10 mg tablet - Active Ferrous Sulfate (IRON PO) 1 tablet, Oral, Daily RT Glucose Blood (Blood Glucose Test) strip 1 strip, In Vitro, Daily, Use in the morning prior to breakfast, 1 hour after each meal for a total of 4times daily. iron polysaccharides (PROFE) 391.3 mg, Oral, Daily Lancets Ultra Thin misc 1 each, In Vitro, Daily, Use to check FSBS four times daily magnesium lactate CR (MAGTAB) 84 mg, Oral, Daily RT magnesium oxide (Mag-Ox) 400 (240 Mg) MG tablet omeprazole (PRILOSEC) 20 mg, Oral, Daily before breakfast, Do not crush or chew. ondansetron ODT (Zofran-ODT) 4 MG disintegrating tablet ondansetron 4 mg disintegrating tablet - Active Ifcqibhs-Bwn-Vt-FA ( 1 + IRON PO) Oral, Daily RT ALLERGIES Allergies Allergen Reactions Emgality [Galcanezumab-Gnlm] Galcanezumab [...] Past Medical History: Diagnosis Date Anxiety Depression ([facility]) Endometriosis OCD (obsessive compulsive disorder) ([facility]) PTSD (post-traumatic stress disorder) ([facility]) HISTORY PAST MEDICAL HISTORY SOCIAL HISTORY Past Medical History: Diagnosis Date Anxiety Depression ([facility]) Endometriosis OCD (obsessive compulsive disorder) ([facility]) PTSD (post-traumatic stress disorder) ([facility]) Social History Tobacco Use Smoking [...] nursing note reviewed. Exam conducted with a emergency generator mechanic present. Vitals: There is no height or weight on file to calculate BMI. BP: 118/72 Patient's last menstrual period was 10/20/2023. ASSESSMENT & PLAN ICD-10-CM 1. Third trimester Z34.93 POCT urinalysis dipstick manually resulted 2. 30 weeks gestation of Z3A.30 POCT urinalysis dipstick manually resulted Patient presents today for a routine obstetrics appointment. Patient is currently 30w2d with a Estimated Date of Delivery: 07/26/24. Patient voiced that she is still having pain/pressure pelvic/vaginally. Patient voiced that she is having swelling in her feet/legs/fingers and face. Patient voiced that she has been retaining water for weeks now. Patient voiced that her BP is higher than her normal readings. Patient to have IOL on 07/07/24 due to placental issues/concerns. Patient to return to clinic in 2 weeks. Ambien prescription printed for patient to have filled. Documented by Zakiya Traylor LPN on behalf of: Moi Rueda DO documented in this encounterSaint Joseph Hospital [id number] History of Present illness Narrative* Zakiya Traylor LPN - 05/08/2024 11:10 AM EDT Reason for Appointment: Patient ID: Colton Medrano is a 28 y.o. female who presents for Routine Visit Patient presents today for Return OB appointment. MEDICATIONS Current Outpatient Medications Medication Instructions Alcohol Swabs (Alcohol Prep Pad) 70 % pads 1 Pad, Topical, Daily, Use four times daily to check FSBS. aspirin 81 mg, Oral, Daily Blood Glucose Monitoring Suppl (D-Abzena Glucometer) w/Device kit 1 kit, Does not apply, Daily, Use four times daily to check FSBS. In the morning prior to breakfast & 1 hour after each meal for a total of 4times daily. cyclobenzaprine (Flexeril) 10 MG tablet cyclobenzaprine 10 mg tablet - Active Glucose Blood (Blood Glucose Test) strip 1 strip, In Vitro, Daily, Use in the morning prior to breakfast, 1 hour after each meal for a total of 4times daily. iron polysaccharides (PROFE) 391.3 mg, Oral, Daily Lancets Ultra Thin misc 1 each, In Vitro, Daily, Use to check FSBS four times daily omeprazole (PRILOSEC) 20 mg, Oral, Daily before breakfast, Do not crush or chew. Buiapvkj-Ilb-Xc-FA ( 1 + IRON PO) Oral, Daily RT ALLERGIES Allergies Allergen Reactions Emgality [Galcanezumab-Gnlm] Galcanezumab [...] compulsive disorder) (CMS/HCC) PTSD (post-traumatic stress disorder) ([facility]) HISTORY PAST MEDICAL HISTORY SOCIAL HISTORY Past Medical History: Diagnosis Date Anxiety Depression ([facility]) Endometriosis OCD (obsessive compulsive disorder) ([facility]/HCC) PTSD (post-traumatic stress disorder) ([facility]) Social History Tobacco Use Smoking [...] nursing note reviewed. Exam conducted with a emergency generator mechanic present. Vitals: There is no height or weight on file to calculate BMI. BP: 104/66 Patient's last menstrual period was 10/20/2023. ASSESSMENT & PLAN ICD-10-CM 1. Third trimester Z34.93 Urine dip Patient presents today for a routine obstetrics appointment. Patient is currently 28w5d with a Estimated Date of Delivery: 07/26/24. Patient voiced that she is still unable to get rest, is still having pura liriano contractions and pelvic/hip/leg pain. Patient to return to clinic in 2 weeks for OB care. Patient also had growth scan obtained today as well prior to appointment. Documented by Zakiya Traylor LPN on behalf of: Moi Rueda DO documented in this encounterSaint Joseph Hospital [id number] History of Present illness Narrative* Zakiya Traylor LPN - 04/24/2024 11:20 AM EDT Reason for Appointment: Patient ID: Colton Medrano is a 28 y.o. female who presents for Routine Visit Patient presents today for Return OB appointment. MEDICATIONS Current Outpatient Medications Medication Instructions Alcohol Swabs (Alcohol Prep Pad) 70 % pads 1 Pad, Topical, Daily, Use four times daily to check FSBS. aspirin 81 mg, Oral, Daily Blood Glucose Monitoring Suppl (D-Care Glucometer) w/Device kit 1 kit, Does not apply, Daily, Use four times daily to check FSBS. In the morning prior to breakfast & 1 hour after each meal for a total of 4times daily. cyclobenzaprine (Flexeril) 10 MG tablet cyclobenzaprine 10 mg tablet - Active Glucose Blood (Blood Glucose Test) strip 1 strip, In Vitro, Daily, Use in the morning prior to breakfast, 1 hour after each meal for a total of 4times daily. Lancets Ultra Thin misc 1 each, In Vitro, Daily, Use to check FSBS four times daily omeprazole (PRILOSEC) 20 mg, Oral, Daily before breakfast, Do not crush or chew. Kljzjbte-Lqp-Hn-FA ( 1 + IRON PO) Oral, Daily RT ALLERGIES Allergies Allergen Reactions Emgality [Galcanezumab-Gnlm] Galcanezumab [...] Past Medical History: Diagnosis Date Anxiety Depression ([facility]) Endometriosis OCD (obsessive compulsive disorder) ([facility]) PTSD (post-traumatic stress disorder) ([facility]) HISTORY PAST MEDICAL HISTORY SOCIAL HISTORY Past Medical History: Diagnosis Date Anxiety Depression ([facility]) Endometriosis OCD (obsessive compulsive disorder) ([facility]) PTSD (post-traumatic stress disorder) ([facility]) Social History Tobacco Use Smoking [...] nursing note reviewed. Exam conducted with a emergency generator mechanic present. Vitals: There is no height or weight on file to calculate BMI. BP: 100/70 Patient's last menstrual period was 10/20/2023. ASSESSMENT & PLAN ICD-10-CM 1. 26 weeks gestation of Z3A.26 POCT urinalysis dipstick manually resulted 2. Gestational diabetes mellitus (GDM), antepartum, gestational diabetes method of control unspecified O24.419 3. Elevated glucose tolerance test R73.09 Lancets Ultra Thin misc Alcohol Swabs (Alcohol Prep Pad) 70 % pads Glucose Blood (Blood Glucose Test) strip Blood Glucose Monitoring Suppl (D-Abzena Glucometer) w/Device kit Patient presents today for a routine obstetrics appointment. Patient is currently 26w5d with a Estimated Date of Delivery: 07/26/24. Patient voiced that she is feeling shaky, which may possibly be from doing her 1hr glucose testing prior to appointment today. Reviewed labs with patient and i nformed her that her glucose was elevated and it is recommended to have 3hr glucose test obtained. Patient does not desire to have 3hr glucose test done and would like to decline that at this time. Patient would like to have order to redraw 1 hour glucose testing and patient voiced that she will toeat what she had eaten previously before testing today as she had strawberries with sugar throughout the night. Patient advised that if she desires to defer 3 hour glucose testing that it is then recommended to check finger stick blood sugars 4 times daily for 2 weeks and then return to clinic to review readings. Patient aware that glucose monitoring supplies were sent to pharmacy and that if shedoes not pass her 1 hour glucose a second time with dietary changes then she will need to obtain supplies and start checking sugars. Reviewed the remainder of labs that were obtained this morning with patient. Patient voiced that she is still having right sided groin and ovary pain. Patient to return to clinic in 2 weeks for growth scan and OB appointment. Patient will start growth scans every 4 weeks at 28 weeks gestation and then NST/BPP's to start at 32 weeks. Patient to setup appointment tooffice visit and ultrasound prior to leaving office today. Documented by Zakiya Traylor LPN on behalf of: Moi Rueda DO documented in this encounterSaint Joseph Hospital [id number] History of Present illness Narrative* Zakiya Traylor LPN - 04/10/2024 10:40 AM EDT Reason for Appointment: Patient ID: Colton Medrano is a 28 y.o. female who presents for Routine Visit Patient presents today for Return OB appointment. MEDICATIONS Current Outpatient Medications Medication Instructions aspirin 81 mg, Oral, Daily cyclobenzaprine (Flexeril) 10 MG tablet cyclobenzaprine 10 mg tablet - Active omeprazole (PRILOSEC) 20 mg, Oral, Daily before breakfast, Do not crush or chew. Wikjnynw-Kow-Ju-FA ( 1 + IRON PO) Oral, Daily RT ALLERGIES Allergies Allergen Reactions Emgality [Galcanezumab-Gnlm] Galcanezumab [...] Second trimester 03/27/2024 Diabetes mellitus screening 03/27/2024 Resolved Ambulatory Problems Diagnosis Date Noted No Resolved Ambulatory Problems Past Medical History: Diagnosis Date Anxiety Depression ([facility]/HCC) Endometriosis OCD (obsessive compulsive disorder) ([facility]) PTSD (post-traumatic stress disorder) ([facility]) HISTORY PAST MEDICAL HISTORY SOCIAL HISTORY Past Medical History: Diagnosis Date Anxiety Depression ([facility]/HCC) Endometriosis OCD (obsessive compulsive disorder) ([facility]) PTSD (post-traumatic stress disorder) ([facility]) Social History Tobacco Use Smoking [...] nursing note reviewed. Exam conducted with a emergency generator mechanic present. Vitals: There is no height or weight on file to calculate BMI. BP: 120/70 Patient's last menstrual period was 10/20/2023. ASSESSMENT & PLAN ICD-10-CM 1. 24 weeks gestation of Z3A.24 POCT urinalysis dipstick manually resulted Patient presents today for a routine obstetrics appointment. Patient is currently 24w5d with a Estimated Date of Delivery: 07/26/24. Patient to continue to be off work until previously discussed date to be reassessed. Patient is currently suffering from insomnia along with pelvic pain and in creased fatigue. Patient voiced that she has bilateral leg pain. Patient to start NST/BPP at 32 weeks gestation. Patient to return to clinic in 2 weeks. Documented by Zakiya Traylor LPN on behalf of: Moi Rudea DO documented in this encounterSaint Joseph Hospital [id number] History of Present illness Narrative* Tammy Horne MD - 02/25/2024 2:00 PM EDT [facility] Office Visit Note HPI: Colton Medrano is a 28 y.o. at 18w2d with Estimated Date of Delivery: 07/26/24 who is presenting for an office visit regarding Chief Complaint Patient presents with HX DELIVERY @ 32 WEEKS PLACENTAL ABRUPTION. Patient Active Problem List Diagnosis PTSD (post-traumatic stress disorder) OCD (obsessive compulsive disorder) History of delivery, currently Endometriosis Prior with placenta abruption in first trimester, antepartum Echogenic intracardiac focus of fetus on ultrasound I have reviewed the pertinent available patient records including but not limited to notes, labs and images She reports that she is doing well. She reports normal movements and she denies LOF, contractions, vaginal bleeding, headache, blurry vision, RUQ pain and edema. Complications: History of delivery due to placental abruption per report. We do not have the records and the patient is not able to obtain the record. Normal cervical length today Low-lying placenta on ultrasound today Placental lakes Echogenic intracardiac focus - low risk cell free DNA she showed me her report ([facility]) ? POTS - near syncopal episode 6 weeks ago Recent hospitalization: no REVIEW OF SYSTEMS: Head and Neck: Negative for any dizziness and headaches. Cardiovascular and Respiratory System: Denies any chest pain, shortness of breath, and coughing. Abdominal and System: Denies any abdominal pain, nausea, vomiting, vaginal bleeding, and vaginal discharge OB Hx: OB History Para Term AB Living 3 2 1 1 2 SAB IAB Ectopic Multiple Live Births 2 # Outcome Date GA Lbr Harris/2nd Weight Sex Type Anes PTL Lv 3 Current 2 Term 11/20/16 39w1d 3.232 kg F Vag-Spont N BERNICE 1 06/08/14 32w0d 2.155 kg M Vag-Spont Y BERNICE PMH: Past Medical History: Diagnosis Date Anxiety Depression Endometriosis Heart burn History of placenta abruption History of delivery, currently OCD (obsessive compulsive disorder) OCD (obsessive compulsive disorder) PTSD (post-traumatic stress disorder) PSHIST: Past Surgical History: Procedure Laterality Date ENDOMETRIAL ABLATION WISDOM TOOTH EXTRACTION Allergies: Allergies Allergen Reactions Emgality Pen [Galcanezumab-Gnlm] Lavender Oil Tramadol Meds: Prior to Admission medications Medication Sig Start Date End Date Taking? Authorizing Provider magnesium (MAGTAB) 84 mg tablet extended release CR tablet Take 1 tablet (84 mg total) by mouth in the morning. Yes Not In System Ref Prov omeprazole (PriLOSEC) 20 mg capsule Take 1 capsule (20 mg total) by mouth in the morning. Patient not taking: Reported on 01/21/2024 Not In System Ref Prov ondansetron (ZOFRAN) 4 mg/5 mL solution Take by mouth once. Patient not taking: Reported on 01/21/2024 Not In System Ref Prov [id number] acid ( 19) 29 mg iron- 1 mg tablet,chewable Chew 1 tablet and swallow in the morning. Patient not taking: Reported on 02/25/2024 Not In System Ref Prov SH: Social History Socioeconomic History Marital status: Spouse name: Not on file Number of children: Not on file Years of education: Not on file Highest education level: Not on file Occupational History Not on file Tobacco Use Smoking status: Never Smokeless tobacco: Never Vaping Use Vaping status: Never Used Substance and Sexual Activity Alcohol use: Not Currently Drug use: Never Sexual activity: Yes Partners: Male Other Topics Concern Not on file Social History Narrative Not on file Social Determinants of Health Financial Resource Strain: Not on file Food Insecurity: No Food Insecurity (02/25/2024) Hunger Screening Food Insecurity - Worry: Never True Food Insecurity - Inability: Never True Transportation Needs: Not on file Physical Activity: Not on file Stress: Not on file Social Connections: Not on file Interpersonal Safety: Not on file Housing Instability: Not on file Physical Exam: Vital Signs Vitals: 02/25/24 1318 BP: 95/50 Pulse: 58 Weight: 69.9 kg (154 lb 3.2 oz) Height: 180.3 cm (5' 11 ) Physical Exam: Gen: Not in acute distress, alert and oriented. Eyes: Pupils equal and reactive Chest: Nonlabored breathing Cardiac: Pulse was regular on vital signs assessment Abdomen: Gravid Skin/extremities: Appears intact. No visible lesions MS:no visible edema Neuro: No focal deficits Notes/Imaging/Labs reviewed No visits with results within 1 Month(s) from this visit. Latest known visit with results is: Abstract on 01/11/2024 Component Date Value Ref Range Status Rubella immune IgG 01/04/2024 immune Final Abo/Rh(D) 01/04/2024 O Positive Final Antibody Screen 01/04/2024 negative Final Hemoglobin A1C 01/04/2024 4.7 4.0 - 6.0 % Final Rubella immune IgG 01/03/2024 1.31 IU/mL Final Antibody Screen 01/03/2024 negative Final HIV 1&2 AB/AG 01/03/2024 non reactive Final Ultrasound findings Pertinent Ultrasound findings are see report. Assessment/Plan 28 y.o. at 18w2d with Estimated Date of Delivery: 07/26/24 here for office visit regardin. 18 weeks gestation of 2. Echogenic intracardiac focus of fetus on ultrasound Isolated echogenic intracardiac focus (EIF) is noted. No other soft signs of aneuploidy are seen atthis time. EIF common finding during second trimester anatomy ultrasounds and is identified in 3-5%of normal fetuses. We discussed with the patent the significance of an echogenic focus in the ventricle of the heart. This is not an abnormality per se and is not associated with congenital heart disease, It is usually a normal variant seen in about 4% of pregnancies. An EIF often disappears later in or postnatally, and is not associated with myocardial dysfunction or structural anomalies. Down syndrome fetuses have higher incidence of echogenic foci than normal fetuses. Therefore it is considered to be risk factor for Down syndrome. Per [facility] recommendations for people with negative serum or cell-free DNA screening results and an isolated echogenic intracardiac focus, we recommend no further evaluation as this finding is a normal variant of no clinical importance with no indication for echocardiography, follow-up ultrasound She has a low risk cell free DNA. Reviewed aneuploidy testing that could be performed during . I explained that definitive testing can be obtained by an amniocentesis, which has a 1/800 risk of loss. Declined amniocentesis 3. Placental abnormality in second trimester Placental lakes are enlarged spaces in the placenta filled with maternal blood. These spaces are also called intervillous spaces because they are found between the placental villi the finger-like projections of the placenta that contain blood vessels . The placental villi float in the intervillous spaces and absorb oxygen and nutrients from the maternal blood. The blood-filled placental lakes appear nearly black (white arrows) on ultrasound because they do not reflect soundwaves back to the ultrasound machine. Placental lakes can be seen within the placenta or on the surface of the placenta bulging into the amniotic cavity. Slow swirling blood flow (larger arrow) may be seen within the spaces, and the shape of the spaces tends to change with uterine contractions. These features may help to distinguish a placental lakes from a thrombus. Placental lakes are considered to be a normal finding in most cases. However, multiple placental lakes seen early in have been associated with growth restriction. Growth ultrasounds recommended 4. History of placenta abruption 5. History of delivery, currently See prior Maternal- Medicine note. We still do not have the records for the prior delivery. Cervical length is normal today. Discussed with the patient that 17 hydroxy progesterone is no longer available. Reviewed with the patient that vaginal progesterone should not be used in replacement for 17 hydroxy progesterone. Rediscussed cervical length surveillance. The patient desires to proceed with cervical length surveillanc. If her cervical length is less than 2.5 cm we will be evaluated for vaginal progesterone and and cerclage. Recurrence of placental abruption discussed. Serial growth ultrasounds recommended and surveillance with weekly NST and DVP from 3/2 weeks until delivery. We also discussed low-dose aspirin for preeclampsia prophylaxis. Risks/benefits reviewed and the patient desires to started. 6. Low lying placenta Diagnosis of low-lying placenta reviewed bleeding precautions given. Risk of a section discussed. Placenta to be re-evaluated with a cervical length surveillance and if it remains low-lying we will need to be re-evaluated around 32 weeks. Discussed supportive measures during the for POTS like symptoms including compression stockings hydration salt intake and exercise. Discussed with the patient referral to cardiology for POTS evaluation. The patient declined Recommendations: -please see prior Maternal- Medicine note for detailed recommendations and the patient counseling -to return in 2 weeks for repeat cervical length -to return in 4 weeks for anatomy completion and follow-up cervical length -if low-lying placenta persists placenta to be re-evaluated around 32 weeks -timing of delivery if low-lying placenta resolves delivery at 39 weeks due to history of placental abruption recommended. If low-lying placenta persist delivery between [id number] via (of note not all low-lying placenta require section this has to be further addressed) -route of delivery likely vaginal however if the low-lying placenta persist the patient is at risk of a section depending on how far away the placenta is from the cervical os and that has maynor further reviewed with the patient -serial growth ultrasounds every 4 weeks after the anatomy scan through OB office -weekly NST and DVP from 32 weeks until delivery -slow epidural with hydration due to POTS like symptoms -if the patient continues to experience post like symptoms please refer to cardiology The patient is to continue with routine care in your office Thank you for allowing me to participate in her care. Please contact me if you have any concerns. Tammy Horne MD, FACOG (she/hers) Maternal- Medicine [address] [place] [address] This document was created with [employer] technology. Though I make every effort to review the dictation as it is transcribed, on occasion the spoken word can be misinterpreted by the technology leading to inappropriate words, phrases, or sentences. This note is addressed to the requesting provider as a consultation for clinical guidance. Specificmedical abbreviations are occasionally used and those are generally approved by the [place]?Board of?Obstetrics and?Gynecology?as well as?Jessica okeefe abbreviations. The above plan of care was based solely on the diagnoses for which a consultation was requested. ?More frequent testing may be indicated based on her other medical/obstetrical conditions. The management of other or medical conditions is beyond the scope of requested consultation and will c yessicainue to be followed by the primary operations intelligence superintendent or primary care provider. Note to patient: The Century Cures Act makes medical notes like these available to patients inthe interest of transparency. However, be advised this is a medical document. It is intended as peer to peer communication. It is written in medical language and may contain abbreviations or verbiagethat are unfamiliar. It may appear blunt or direct. Medical documents are intended to carry relevant information, facts as evident, and the clinical opinion of the practitioner. * Stefania Vega RN - 02/25/2024 2:00 PM EDT Headache/epigastric pain/blurry vision/swelling? Cramping/contractions? SOME TIGHTENING ON OCCASION. Abnormal vaginal discharge? NO Spotting or vaginal bleeding? NO Loss of fluid like your water may have broken? NO Recent ER visits or hospitalizations? NO Any concerns that you would like me to mention to the provider today? HAS QUESTIONS. [facility] History of Present illness Narrative* Marisol Bhakta RN - 01/21/2024 11:00 AM EDT Headache/epigastric pain/blurry vision/swelling? Headaches/ blurry vision (hx of migraines from TBI) Cramping/contractions? Cramping (hx endometriosis) Abnormal vaginal discharge? no Spotting/vaginal bleeding? no Loss of fluid like your water may have broken? no Cats in the home? no Do you change the litter box? Flu vaccine? no Genetic testing done this here or other office? yes 01/03/24 Have you been seen here at [facility] in a previous ? no Recent ER visits or hospitalizations? no Bring blood sugar log or meter with you today? (Please bring them with you for every visit at [facility]) n/a Traveled outside the country in the past 6 month no Any concerns that you would like me to mention to the provider today? Patient has concerns for progesterone * Bari Zepeda MD - 01/21/2024 11:00 AM EDT ENCOUNTER RECOMMENDATIONS ARE IN BOLD AT THE BOTTOM OF THIS VISIT NOTE. Dear Dr. Rueda: Thank you for sending this patient secondary to prior history and or abruption. Please also see any US note and (if concomitant visit) Genetic counselor note. Total time by Dr. Zepedais in addition to time needed to perform and interpret any ultrasound. Overall care, Zika virus screening, Covid-19 vaccination counseling,influenza vaccination counseling and unrelated Genetic screening (cystic fibrosis, muscular dystrophy, thalassemia, sicklecell trait, etc.) is as per the excellent care of the patient's provider team. Please note that ultr asound is not diagnostic for aneuploidy, will not detect all structural abnormalities, and isnot diagnostic for Genetic diseases, even if multiple exams are performed during a given . Report prepared via voice recognition software. Although report is reviewed for accuracy prior to finalization, unrecognized typographical errors may be present. Please contact us with any questions regarding report. Total time of visit today was 63 minutes. 45 minutes were direct [id number] for counseling and coordination of care during visits itself. An additional 5 minutes or for same day preparation to see the patient. Another 13 minutes were needed to prepare visit report or otherwise complete encounter Thank you for sending this patient. Bari Zepeda MD Maternal Medicine Professor, [facility] [phone] Office [phone] Personal Cell Phone Office Note: Prior history of (reportedly from abruption) Chart referenced to history of anxiety and or posttraumatic stress disorder Personal history of endometriosis Nausea and or vomiting in (improved) Current Outpatient Medications on File Prior to Visit Medication Sig magnesium (MAGTAB) 84 mg tablet extended release CR tablet Take 1 tablet (84 mg total) by mouth in the morning. [id number] acid ( 19) 29 mg iron- 1 mg tablet,chewable Chew 1 tablet and swallow in the morning. omeprazole (PriLOSEC) 20 mg capsule Take 1 capsule (20 mg total) by mouth in the morning. (Patient not taking: Reported on 01/21/2024) ondansetron (ZOFRAN) 4 mg/5 mL solution Take by mouth once. (Patient not taking: Reported on 01/21/2024) No current facility-administered medications on file prior to visit. Vitals: 01/21/24 1039 BP: 118/68 Pulse: 82 This patient is a 28-year-old 3 para 08/20/2000. She is currently 13 weeks and 2 days gestation by provider dating. The patient has a history of a 32 week delivery when she was a teenager in 2013. The patient was told that to delivery was probably the result of placental abruption. The patient does not remember some details. She was admitted in labor and then subsequently delivered. The placenta was sent for histopathological evaluation. Results are not available. The patient did not require blood transfusion and was sent home within 24 hours. In the patient's next , she saw [facility] providers. She reportedly saw Maternal- medicine team in [place]. The patient can not recall if she underwent serial cervical length assessment. She received progesterone shots. Delivery occurred at term. The patient was evaluated and or admitted for contractions during , however. The patient denies other associated complications or illnesses. However, she exhibited nausea and vomiting (as well as heartburn) earlier in this . Symptoms are improving. She denies history of current active migraine headache, thyroid disease, adult asthma, epilepsy, clotting disorder, autoimmune disorder, or bleeding disorder. The patient denies alcohol, tobacco, or substanceuse during this . She also denies alcohol, substance, or tobacco use during the index with abruption. We reviewed reproductive risk history. Screening questionnaire negative. The patient reported negative chromosomal screening recently resulted in which the option for gender would be given. Thepatient unaware of maternal genetic carrier testing decisions and or results. In this , the patient received empiric first-trimester vaginal progesterone which was recently discontinued. At imaging today, Godoy with biometry consistent with supplied dating observed. No obvious structural abnormalities noted although imaging performed too early for best structural assessment, measurement of cervical length for cervical length screening, and or final localization of placenta relative to internal cervical os. Please see report. We took the opportunity to review chromosomal abnormality screening and/or diagnostic testing. Ultrasound is not diagnostic chromosomal abnormalities, will not detect all structural abnormalities and is not diagnostic for genetic disorders even if multiple exams performed in a given . Down syndrome screening can be accomplished by first-trimester screening, cell free DNA testing, and 4 marker screen testing. Unrelated to chromosomal abnormality risk assessment, MSAFP can beoffered by provider team as a screen for open neural tube defect. Screening is not diagnostic. Diagnostic amniocentesis would be an example of a diagnostic test. Chorionic villus sampling would be anexample prior to a 14 weeks gestation. If amniocentesis performed or CVS were performed, micro array is offered. Small risk of loss from either procedure reviewed. Compared performance of applicable screening tests and or went over results of testing already performed. Genetic carrier testing may be performed. Limited or expanded testing is available. All testing will not identify all cases of genetic diseases because all genetic disorders do not have effective assessment, carrier testing would be necessary to determine if the would have an increased risk for disorders such as cystic fibrosis muscular dystrophy in testing had not been performed.Hemoglobinopathy can be screened for with assessment of MCV and hemoglobin electrophoresis. Alpha-thalassemia risk assessment would require genetic carrier testing. We reviewed . Approximately 10% of deliveries occur pre term. Of these, a sizable majority are spontaneous secondary to pre labor ruptured membranes, labor, or earlier in diagnosis of cervical insufficiency. Patients with prior history of spontaneous are at an increased risk of spontaneous in subsequent pregnancies. Several other risk factors including multiple gestation, black race, anemia, underweight, tobacco use, severe polyhydramnios, or prior history of cervical insufficiency increases risk. Patients at standard risk typically are not candidates for secondary prevention except in specific c ircumstances. Cervical shortening in these patients typically treated with vaginal progesterone (such as vaginal use of Prometrium 200 mg each night until 37 weeks and 0 days gestation). Patients with prior history should undergo serial cervical length assessment between 16 weeks and 0 days gestation and 23 weeks and 6 days gestation inclusive. Cervical shortening less than 25 mm duringthis gestational age range associated with an increased risk of subsequent secondary to spontaneous etiologies. A somewhat lesser minority of pregnancies result in delivery secondary to medical indications. These include maternal illness, conditions, and man ifestations other problems or abnormalities such as abruption or trauma. Patients without history of spontaneous (history of medically indicated rather than spontaneous ), typically are not candidates for serial cervical length assessment. Risk of may be increased, but secondary screening likely not effective because etiology not related to spontaneous delivery etiology. Standard management prior history increased risk patients with cervical shortening during the aforementioned gestational age range include vaginal progesterone or cerclage. Other indications for cerclage include prior history of cerclage secondary to physical exam indication (cervical insu fficiency), or cervical insufficiency diagnosis in current . Gestational age range for cerclage is the same for these indications. Cervical insufficiency is defined as cervical dilation (typically greater than 1-2 cm, although no uniform definition agreed upon) without labor. Patients withcervical dilation in association with bleeding or contractions typically are not candidates for physical exam indicated cerclage due to cervical insufficiency. Cerclage usually not indicated in multiple gestation. Some evidence supports cerclage in patients with multiple gestation with very short cervix or physical exam indication. Patients without history of spontaneous typically do not undergo serial cervical length screening although mid screening on a 1 time basis recommended. Cervical shortening without cervical dilatation usually warrants vaginal progesterone. Newer data may support cerclage in any patient with very short cervical length (less than 1.0 cm). Phys ical exam indicated cerclage would be indicated in any patient unless a contraindication were present. Formerly, 17 hydroxy progesterone secondary prevention was recommended in patients with prior history (Godoy ). More recently, while the treatment was felt to be safe, effectiveness was not observed. At present, 17 hydroxy progesterone is not FDA approved for secondary prevention of . Some authorities recommend vaginal progesterone given between 14-16 weeks and 37 weeks and 0 days gestation. Vaginal progesterone is likely not harmful and relatively inexpensive in comparison to 17 hydroxy progesterone. Preventative use of vaginal progesterone in patients with prior history risk not currently recommended by ACOG. Strategies which generally do not reduce the likelihood of include pelvic rest, activity restriction from activitiesof normal living, and specific nutritional supplements. Good nutrition is recommended. Special circumstances regarding activity restriction may occur and selected patients. The Society of Maternal- Medicine as a good guideline addressing activity in . In summary comments pertaining to this patient, patient's with prior history of medicallyindicated (secondary to diagnoses, maternal diagnoses, preeclampsia, growth restriction, nonreassuring testing, abruption, and or maternal trauma rather than from spontaneous labor), typically are not candidates for secondary prevention. Underlying disease processes and risks need to be addressed if as applicable. History seems to support prior history of abruption which incited labor. The patient is comfortable with this working plan, although we have asked the patient to give permission to [facility] via [employer] so [facility] records from most recent could be reviewed. Unlessother information becomes available however, this patient does not appear to be a candidate for serial cervical length screening. At the present time, 17 hydroxy progesterone secondary prevention is no longer typically recommended in any patient. The patient believes she can determinefor sure which [facility] practice saw her and will obtain records to be routed to our office, to be electronically available, or to be brought with her. We will arrange early survey in conjunction with cervical length assessment in case it is subsequently determined that the patient should be a candidatefor serial cervical length assessment. We reviewed risks and types with patient. We discussed options in detail. Recommendations and conclusions or at end of this consultation visit note. The patient apparently is at work restrictions status. Primary OB provider should individually determine applicability accordingly. Generally speaking, working restriction and or pelvic rest not associated with improved outcomes. We did not identify any particular risk factors in this patient which would be modifiable in order to reduce recurrence risk of abruption. In patients with undetermined etiology abruption, risk in subsequent increased. Medical evidence does not necessarily support a reduction in risk fromlow-dose aspirin (technically abruption likelihood slightly greater but typically not clinically significant in standard risk patients). The patient does not appear to be a candidate for preeclampsiasecondary prevention low-dose aspirin. If such were the case, and she were a candidate from the standpoint of preeclampsia prevention, would recommend prevention. surveil gita typically is not effective, although the working plan for 32 week gestational age and beyond surveillance is reasonable. Once completion of imaging accomplished in our office, recommend serial assessment of growth in primary OB provider office. Comments, Conclusions: History seems to support at this patient's was secondary to abruption. In abundance of caution, we will bring the patient back for an early survey in order to additionally measure cervical length somewhat earlier. The patient also will determine which Maternal- Medicine practice she saw in her 2nd in either make available or supplied records. We will see the patient for a physician visit when she returns. Primary OB provider plan for serial assessment of growth monthly after imaging completion in [facility] office reasonable. surveillance also reasonable. We provided the patient information regarding chromosomal screening, genetic carrier testing, chromosomal diagnostic testing, activity in , and travel in . Subsequent decisions as per patient and primary OB provider regarding these issues. We also provided the patient information regarding history. Information either through ACOG and or [facility]. Recommendations (Plan): First history of seems likely the abruption. In abundance of caution, the patient will return somewhat early for survey along with cervical length assessment. Physician visit will be scheduled at that time, as well. The patient will determine for sure where she underwent [facility] care in her next and will either request, bring, and or make available electronically records. These will be reviewed if as feasible when the patient returns. Subsequent decisions regarding chromosomal screening, diagnostic testing, and or genetic carrier testing as per patient and primary OB provider. Since 1st abruption history appears to be idiopathic in etiology, agree with plan for serial assessment of growth after imaging completion in MFM office. surveillance beginning at 32 weeks gestation as planned by primary OB provider office reasonable. Provided abruption, mitigating circumstances or other diagnoses do not alter gestational age recommendation, at present the patient is a candidate for delivery in full-term gestational age range. Thank you for letting us see this patient today. The patient has follow-up scheduled in our office.Please note that primary and overall management of is as per excellent care primary OB provider team. [facility] Evaluation + Plan note Diagnostic Tests Pending * T3 Free 11/19/23 * Thyroid Perox.tpo Ab 11/19/23 * TgAb+Thyroglobulin,CHING or ARLEN 11/19/23 [facility]03-15-2024 History of Present illness Narrative* Cheri Stephen MD - 11/02/2023 2:30 PM EDT GYNECOLOGY CONSULT NOTE REASON FOR VISIT Endometriosis Pelvic pain HISTORY OF PRESENT ILLNESS Ms. Medrano is a 27 y.o. (NSVDx2) who presents for consultation regarding endometriosis, pelvic pain. Records review: Moved back from [place] to [place] ([place]21) First diagnosed in 2017 Has had [...] tried to get her medical records in [place], but they would not send them. She [...] She had a women's health doctor in [facility] who told her she had stage IV endometriosis. She is no longer on the progesterone. Has tried vaginal valium does not help Her 2 previous pregnancies were with a previous partner. She and her are trying for anotherpregnancy now. No BA in [place] Partner has not had a SA yet [...] She was not sleeping because of the pain.She was hopeful to go back to work on Sunday. Yesterday morning, she woke up with immense pain. Themuscle relaxer is not doing anything at all. [...] unit Already has a muscle relaxer Cheri Stephen MD 60 minutes were spent with the patient today. [facility] note * Encounter Date Diagnosis Assessment Notes Treatment Notes Treatment Clinical Notes Aug, Generalized anxiety disorder (IC D-10 - F41.1) Notes that she was has increased anxiety due to living in her current situation with her mother andher family as well as this is causing [...] educated on the risks and benefits of termite helper use. Risk assessment was done. Patient is compliant with medication. The patient denies any related side eff ects. Last filled on 08/09/2023 Aug,Obsessive-compulsive disorder, unspecified type (ICD-10 - F42.9) Aug,TSD (post-traumatic stress disorder) (ICD-10 - F43.10) Aug,History of traumatic brain injury (ICD-10 - Z87.820)Referral sent to Neurology for migraines, was on Amovig in the past. Has not had and knows to report HAs that awaken from sleep, increasing frequency/severity, unilateral weakness, numbness/tingling in extremeties, change in vision, double vision, blurry vision. She was referred to [facility]. Aug,Migraine without status migrainosus, not intractable, unspecified migraine type (ICD-10 - G43.909)Discussed an increase in her dose of Tizanadine for better headache control. Pt to call with any worsening symptoms. [facility] Other 12-21-2023 Evaluation note* Encounter Date Diagnosis Assessment Notes Treatment Notes Treatment Clinical Notes Jul, Generalized anxiety disorder (IC D-10 - F41.1) Jul,Endometriosis (ICD-10 - N80.9) [facility] Other 12-15-2023 Evaluation note* Encounter Date Diagnosis [...] know how this medication will effect you. Jul,eneralized anxiety disorder (ICD-10 - F41.1)Remains stable on current therapeutic dose. Patient is encouraged to stay active and remain involved. Try to keep themselves busy. Take medication as directed and we will continue to monitor. Patienthas continued need for Clonazepam. OARRS report processed and reviewed and shows no violations. Patient was educated on the risks and benefits of termite helper use. Risk assessment was done as well as pthas 20 pills remaining so was not refilled today. Patient is compliant with medication. The patientdenies any related side effects. Jul,Obsessive-compulsive disorder, unspecified type (ICD-10 - F42.9) Jul,TSD (post-traumatic stress disorder) (ICD-10 - F43.10) Jul,History of traumatic brain injury (ICD-10 - Z87.820)Referral sent to Neurology for migraines, was on Amovig in the past. Has not had and knows to report HAs that awaken from sleep, increasing frequency/severity, unilateral weakness, numbness/tingling in extremeties, change in vision, double vision, blurry vision. Jul,Migraine without status migrainosus, not intractable, unspecified migraine type (ICD-10 - G43.909) [facility] Other 11-06-2020 NoteOPERATIVE NOTE OPERATION DATE: 06-25-20 ANESTHETIC:General. FOOD PRODUCTS TESTER:None. PREOPERATIVE DIAGNOSIS: 1. Dyspareunia. 2. Right and [...] [facility] Signed and Approved by: DR MOI RUEDA . 07/30/2020 13:02:00[facility] note* Clinical Note Date No Information [facility] Work Phone: Discharge summary* Clinical Note Date No Information [facility] Work Phone: Evaluation noteNo [facility] [employer] Other Evaluation note* Diagnosis Endometriosis- Primary Endometriosis, site unspecified Pelvic pain Unspecified symptom associated with female genital organs Myalgia of pelvic floor Dysmenorrhea Dyspareunia in female Nausea and vomiting, unspecified vomiting type Bladder pain Other symptoms involving urinary system Anxiety Anxiety state, unspecified [facility] Diagnosis Onset Date Resolution Status Depression acuteGeneralized anxiety disorderacuteObsessive compulsive disorderacutePTSD (post-traumatic stress disorder)acuteDepressionacuteEndometriosisacute Generalized anxiety disorderacuteObsessive compulsive disorderacutePTSD (post- traumatic stress disorder)acuteTBI (traumatic brain injury)acute [facility] Work Phone: Evaluation note* Type Assessment Date No Information [facility] Work Phone: Evaluation note* Diagnosis 32 [...] state, incidental [facility] Diagnosis Pelvic pain in female Unspecified symptom associated with female genital organs state Routine follow-up Request for sterilization Endometriosis Endometriosis, site unspecified [facility]* Diagnosis 24 weeks gestation of Right hip pain Pain in joint, pelvic region and thigh Pelvic pain in female Unspecified symptom associated with female genital organs Abdominal pain affecting Prior with placenta abruption in third trimester, antepartum Bilateral leg pain Pain in soft tissues of limb [facility]* Diagnosis 26 weeks gestation of Gestational diabetes mellitus (GDM), antepartum, gestational diabetes method of control unspecified Elevated glucose tolerance test Impaired glucose tolerance test Abdominal pain affecting H/O delivery, currently , first trimester Right hip pain Pain in joint, pelvic region and thigh Prior with placenta abruption in third trimester, antepartum Pelvic pain in female Unspecified symptom associated with female genital organs Bilateral leg pain Pain in soft tissues of limb Diabetes mellitus screening Screening for diabetes mellitus documented in this encounter [facility] HealthcareEvaluation note* Diagnosis Third trimester state, incidental Pelvic pain in female Unspecified symptom associated with female genital organs History of placenta abruption Dizziness Dizziness and giddiness H/O delivery, currently Cluster headache, not intractable, unspecified chronicity pattern History of miscarriage Personal history of other genital system and obstetric disorders Abdominal pain affecting Bilateral leg pain Pain in soft tissues of limb Right hip pain Pain in joint, pelvic region and thigh Low iron Unspecified iron deficiency anemia documented in this encounter [facility] HealthcareEvaluation note* Diagnosis Third trimester state, incidental 30 weeks gestation of H/O delivery, currently , first trimester Abdominal pain affecting Pelvic pain in female Unspecified symptom associated with female genital organs Prior with placenta abruption in third trimester, antepartum Other insomnia documented in this encounter [facility] HealthcareEvaluation note* Diagnosis Pre-op examination Request for sterilization Hormone imbalance Swelling Localized superficial swelling, mass, or lump Mood disorder (CMS/HCC) Unspecified episodic mood disorder documented in this encounter [facility]* Diagnosis History of delivery, currently in first trimester- Primary Prior with placenta abruption in first trimester, antepartum documented in this encounter [facility]* Diagnosis 18 weeks gestation of - Primary Echogenic intracardiac focus of fetus on ultrasound Placental abnormality in second trimester History of placenta abruption History of delivery, currently with history of pre-term labor documented in this encounter [facility]* Diagnosis Encounter for drug screening documented in this encounter [facility] HealthcareEvaluation note* Diagnosis Dysmenorrhea Abnormal uterine bleeding (AUB) Bleeding disorder Unspecified hemorrhagic conditions PCOS (polycystic ovarian syndrome) Polycystic ovaries Pelvic pain in female Unspecified symptom associated with female genital organs documented in this encounter [facility] HealthcareEvaluation note* Diagnosis Onset Date Resolution Status Admit Date Endometriosis acuteNovember 2024 10:49am [facility] Work Phone: History and physical note* Clinical Note Date No Information [facility] Work Phone: History general Narrative - Reported* Type Description Date Medical History Anxiety Medical HistoryStage 4 EndometriosisMedical HistoryDepression with manic episodesMedical HistoryOCDMedical HistoryPTSDMedical HistoryTBISurgical History Endometriosis surgery p5Scqqmpvx HistoryWisdom teethSurgical HistoryInjections [facility] Other History of Present illness Narrative* Encounter Date Complaint History Of Prese nt Illness No Information [facility] Work Phone: Hospital course Narrative No data available for this section [facility] No data available for this section [facility] Discharge instructionsAmbulatory Orders* Referral to RING ROLLING MACHINE OPERATOR Time Frame: 10/27/24, Location: None Selected [facility] Work Phone: Hospital Discharge instructionsAmbulatory Orders* Referral to RING ROLLING MACHINE OPERATOR Time Frame: 12/30/24, Location: None Selected [facility] Work Phone: Instructions* Date Instruction Additional Infor mation No Information [facility] Work Phone: InstructionsNot on filedocumented in this encounter [facility]ructionsNot on filedocumented in this encounter [facility]* Attachments The following attachments cannot be sent through Care Everywhere. * Preeclampsia (Frisian) [facility] SystemInstructionsNot on file documented in [facility] SystemProgress note No data available for this section [facility]* Clinical Note Date No Information [facility] Work Phone: Reason for referral (narrative)* Consultation (Routine) - New RequestSpecialtyDiagnoses / ProceduresReferred By Contact Referred To ContactPsychology Diagnoses Pelvic pain Anxiety Cheri Stephen MD [address] [place] [address] Oksana Luu, PhD [address] [place] [address] Referral IDStatusReasonStart DateExpiration DateVisits RequestedVisits [id number] Request/ * Consultation (Routine) - New RequestSpecialtyDiagnoses / ProceduresReferred By ContactReferred To ContactIntegrative Medicine Diagnoses Pelvic pain Nausea and vomiting, unspecified vomiting type Cheri Stephen MD [address] [place] [address] Referral IDStatusReasonStart DateExpiration DateVisits RequestedVisits [id number] Request * Consultation (Routine) - New RequestSpecialtyDiagnoses / ProceduresReferred By ContactReferred To ContactGynecology Diagnoses Pelvic pain Myalgia of pelvic floor Bladder pain Cheri Stephen MD [address] [place] [address] Referral IDStatusReasonStart DateExpiration DateVisits RequestedVisits [id number] Request/ * MRI/CAT Scan (Routine) - New RequestSpecialtyDiagnoses / ProceduresReferred By ContactReferred To Contact Diagnoses Endometriosis Pelvic pain Procedures MRI PELVIS WITH AND WITHOUT CONTRAST WY MRI, PELVIS, COMBO Cheri Stephen MD [address] [place] [address] Referral IDStatusReasonStart DateExpiration DateVisits RequestedVisits [id number] [facility]/ [facility] for [facility] (narrative)* Reason For Referral No Information [facility] Work Phone: Reason for referral (narrative)No reason for referral information [facility] Work Phone: Summary Purpose Family History Relationship Condition Age at Onset Recorded Date/T mike father Prediabetes Unknown grandparentDiabetes mellitusUnknownNot SpecifiedFamily history of other conditionUnknown Family Member Type Diagnosis Age At Onset No Information Relationship Condition Age at Onset Recorded Date/T mike father Prediabetes Unknown grandparentDiabetes mellitusUnknownmotherFamily history of other condition Unknown Advance Directives Advance Directive Response Recorded Date/ Time Advance Directives No September 10:30am Directive Yes / No Effective Date File Name No Information Advance Directive Response Recorded Date/ Time Advance Directives No September 9:30am Advance Directive Response Recorded Date/ Time Advance Directives No October 23 4:25pm Advance Directive Response Recorded Date/ Time Advance Directives No June 23, 2025 2:22pm Reason for Referral Reason *08/06 CALL taryn walton Diagnosis 1 Endometriosis (N80.9 ) Referral Organization [facility] Referring Provider First Name Lucila Referring Provider Last Name Steveachealaina Referring Provider Specialty Nurse Pract itioner Referred Organization [facility] Referred Provider Jena Suresh Referred Address ,[place], [place],[address] Referred Provider Specialty OB - Gynecol ogy Referral Priority Routine General Notes DarriusLesley hernandez 01:18:58 PM >pt has west. we [...] intractable, unspecified migraine type (G43.909) Referral Organization [facility] Referring Provider First Name Lucila Referring Provider Last Name Ellyacher Referring Provider Specialty Nurse Pract itioner Referred Organization [facility] Referred Provider Herbie Arroyo Referred Address [address] [place], [place],[address] Referred Provider Specialty Neurology Referral Priority Routine General Notes Lesley Bowman 01:18:58 PM >pt has west. we do not take this insurance. we take east. pt will need to update this with if she has relocated or only here for a short period of time. I called pt but her mail box is full. Reason * 08/[address] Cramer -- Endocrinology Diagnosis 1 Endometriosis (N80.9 ) Referral Organization [facility] sherry Referring Provider First Name Lucila Referring Provider Last Name Steveacher Referring Provider Specialty Nurse Pract itioner [facility] Referred Address [address] [place],[address] Referred Provider Specialty Endocrinolog y Referral Priority [...] Complaint Worsening anxiety, i ntense endo pain EndometriosisReason for VisitDepression Generalized anxiety disorder Obsessive compulsive disorder PTSD (post-traumatic stress disorder) Depression Endometriosis Generalized anxiety disorder Obsessive compulsive disorder PTSD (post-traumatic stress disorder) TBI (traumatic brain injury) Chief Complaint Admit Date medical concerns October 27, 2024 10: 18am endometriosis December 30, 2024 8:24a m Reason for Visit Admit Date Endometriosis October 27, 2024 10: 18am Endometriosis December 30, 2024 8:24a m Chief Complaint Admit Date Endometriosis, Pain June 24, 2025 1 0:49am Reason for Visit Admit Date Endometriosis June 24, 2025 1 0:49am Additional Source Comments INFORMATION SOURCE (unrecogn ized section and content) DATE CREATED AUTHOR 12/15/2020 [facility] DATE CREATED AUTHOR AUTHOR'S ORGANIZ ATION 11/03/2023 [facility] DATE CREATED AUTHOR AUTHOR'S ORGANIZ ATION 11/20/2023 [facility] DATE CREATED AUTHOR AUTHOR'S ORGANIZ ATION 12/15/2023 [facility] DATE CREATED AUTHOR AUTHOR'S ORGANIZ ATION 04/01/2024 [facility] DATE CREATED AUTHOR AUTHOR'S ORGANIZ ATION 09/12/2024 [facility] DATE CREATED AUTHOR AUTHOR'S ORGANIZ ATION 06/23/2025 [facility] REASON FOR VISIT (unrecogniz ed section and content) ReasonCommentsConsultPt diagnosis with Endometriosis in 2018. Patient desire .SpecialtyDiagnoses / ProceduresReferred By ContactReferred To Contact RING ROLLING MACHINE OPERATOR Diagnoses Endometriosis Lucila Arnett, KHADRA [address] [place] [address] [facility] [address] [place] [address] Referral IDStatusReasonStart DateExpiration DateVisits RequestedVisits [id number] VisitReasonCommentsPelvic PainReasonCommentsPre-op VisitReasonCommentshx placenta abruption/ PTDReasonCommentsHX DELIVERY@ 32 WEEKS PLACENTAL ABRUPTION.ReasonCommentsConsult Care Teams (unrecognized sec tion and content) Team Status: Active Member Role Status Dates Lucila Arnett APRN UNIVERSAL GRINDER OPERATOR-C Primary Care Provider Active Team Status: Inactive Member Role Status Dates Lucila Arnett APRN NP-Jazmine Attending Provider Act vinicius Start: September 14, 2023 End: September 14, 2023 Team Status: Inactive Member Role Status Dates Lucila Arnett APRN NP-Jazmine Primary Care Provider, Attending Provider Active Start: October 17, 2023 End: October 17, 2023 Team Status: Inactive Member Role Status Dates Lucila Arnett APRN NP-Jazmine Primary Care Provider, Attending Provider Active Start: November 14, 2023 End: November 14, 2023 Name Effective Dates (start - stop) Status Members No Information Team MemberRelationshipSpecialtyStart DateEnd Date Lucila Arnett NP [address] [facility] [place] [address] PCP - GeneralFamily Medicine11/11/23Team MemberRelationshipSpecialtyStart DateEnd Date Lucila Arnett NP [address] [facility] [place] [address] PCP - GeneralFamily Medicine11/11/23Team MemberRelationshipSpecialtyStart DateEnd Date Lucila Arnett NP [address] [facility] [place] [address] PCP - GeneralFamily Medicine11/11/23Team MemberRelationshipSpecialtyStart DateEnd Date Lucila Arnett NP [address] [facility] [place] [address] PCP - GeneralFamily Medicine11/11/23Team MemberRelationshipSpecialtyStart DateEnd Date Lucila Arnett NP [address] [facility] [place] [address] PCP - GeneralFamily Medicine11/11/23Team MemberRelationshipSpecialtyStart DateEnd Date Lucila Arnett NP [address] [facility] [place] [address] PCP - GeneralFamily Medicine11/11/23Team MemberRelationshipSpecialtyStart DateEnd Date Lucila Arnett NP [address] [facility] [place] [address] PCP - GeneralFamily Medicine11/11/23Team MemberRelationshipSpecialtyStart DateEnd Date Lucila Arnett NP [address] [facility] [place] [address] PCP - GeneralFamily Medicine11/11/23Team MemberRelationshipSpecialtyStart DateEnd Date Lucila Arnett NP [address] [facility] [place] [address] PCP - GeneralFamily Medicine11/11/23Team MemberRelationshipSpecialtyStart DateEnd Date Lucila Arnett NP [address] [facility] [place] [address] PCP - GeneralFamily Medicine11/11/23Team MemberRelationshipSpecialtyStart DateEnd Date Lucila Arnett NP [address] [facility] [place] [address] PCP - GeneralFamily Medicine11/11/23Team MemberRelationshipSpecialtyStart DateEnd Date Lucila Arnett NP [address] [facility] [place] [address] PCP - GeneralFamily Medicine11/11/23Team MemberRelationshipSpecialtyStart DateEnd Date Lucila Arnett NP [address] [facility] [address] PCP - GeneralFamily Medicine11/11/23Team MemberRelationshipSpecialtyStart DateEnd Date Lucila Arnett FayCHARLENE [address] [facility] [place] [address] PCP - [facility] Medicine11/11/23 Team Status: Active Member Role Status Dates Lucila Arnett APRN UNIVERSAL GRINDER OPERATOR-C Primary Care Provider Active Start: June Moi Marybeth , DOAttending ProviderActiveStart: June 23, 2024 Team Status: Active Member Role Status Dates Lucila Arnett APRN UNIVERSAL GRINDER OPERATOR-C Primary Care Provider Active Start: July 062023 Moi Marybeth , DOAttending ProviderActiveStart: July 06, 2024 Team Status: Active Member Role Status Dates Lucila Arnett APRN UNIVERSAL GRINDER OPERATOR-C Primary Care Provider Active Start: July 072023 Moi Marybeth , DOAttending ProviderActiveStart: July 07, 2024 Team Status: Inactive Member Role Status Dates Lucila Arnett APRN UNIVERSAL GRINDER OPERATOR-C Primary Care Provider, Attending Provider Active Start: July 16, 2024 End: July 16, 2024 Team Status: Active Member Role Status Dates Lucila Arnett APRN UNIVERSAL GRINDER OPERATOR-C Primary Care Provider Active Start: August 012023 Moi Marybeth , DOAttending ProviderActiveStart: August 01, 2024 Team Status: Active Member Role Status Dates Lucila Arnett APRN UNIVERSAL GRINDER OPERATOR-C Primary Care Provider Active Start: August Moi Marybeth , DOAttending ProviderActiveStart: August 29, 2024 Team Status: Inactive Member Role Status Dates Lucila Arnett APRN UNIVERSAL GRINDER OPERATOR-C Primary Care Provider, Attending Provider Active Start: September 08, 2024 End: September 08, 2024 Team Status: Inactive Member Role Status Dates Lucila Arnett APRN UNIVERSAL GRINDER OPERATOR-C Primary Care Provider, Attending Provider Active Start: September 12, 2024 End: September 12, 2024 Team Status: Inactive Member Role Status Dates Lucila Arnett APRN UNIVERSAL GRINDER OPERATOR-C Primary Care Provider, Attending Provider Active Start: October 27, 2024 End: October 27, 2024 Team Status: Inactive Member Role Status Dates Lucila Arnett APRN UNIVERSAL GRINDER OPERATOR-C Primary Care Provider, Attending Provider Active Start: December 30, 2024 End: December 30, 2024Team MemberRelationshipSpecialtyStart DateEnd Date Lucila Arnett NP [address] [facility] [place] [address] PCP - Generalmily Medicine11/11/23 Moi Rueda, DO [address] [place], [place] [address]e [facility] [place] [address] [facility]08/20/24Team MemberRelationshipSpecialtyStart DateEnd Date Lucila Arnett NP [address] [place] [address] [place] [address] PCP - [facility] Medicine11/11/23 Moi Rueda, DO [address] [place] [address] [place] [address] [facility] HospitalTeam MemberRelationshipSpecialtyStart DateEnd Date Lucila Arnett NP [address] [place] [address] [place] [address] PCP - [facility] Medicine11/11/23 Moi Rueda, DO [address] [place] [address] [place] [address] [facility]Team MemberRelationshipSpecialtyStart [place] [address] [place] [address] [place] [address] PCP - GeneralFamily Medicine11/11/23 Moi Rueda DO [address] [place] [address] [place] [address] [facility] MemberRelationshipSpecialtyStart DateEnd Date Lucila Arnett NP [address] [place] [address] [place] [address] PCP - GeneralFamily Medicine11/11/23 Moi Rueda DO [address] [place] [address] [place] [address] [facility] MemberRelationshipSpecialtyStart DateEnd Date Lucila Arnett NP [address] [place] [address] [place] [address] PCP - GeneralFamily Medicine11/11/23Team MemberRelationshipSpecialtyStart DateEnd Date Lucila Arnett NP [address] [place] [address] [place] [address] PCP - GeneralFamily Medicine11/11/23 Team Status: Active Member Role/Relationship Status Dates Lucila Arnett APRN UNIVERSAL GRINDER OPERATOR-C Primary Care Provider Active Team Status: Inactive Member Role/Relationship Status Dates Lucila Arnett APRN UNIVERSAL GRINDER OPERATOR-C Primary Care Provider Active Start: June End: June 24, 2025Lucila Arnett APRN UNIVERSAL GRINDER OPERATOR-CAttending ProviderActive Start: June 24, 2025 End: June 24, 2025 Goals (unrecognized section and content) Goals may [...] BE BASED ON THE PRIMARY CLINICAL RECORDS. [facility]. provides no warranty or guarantee of the accuracy or completeness of information in this document.
[2025-06-29 12:41] LABS: Hematocrit 37.7 % (36.0-48.0); Hemoglobin 12.6 g/dL (12.0-16.0); Immature Granulocytes Abs Auto 0.03 10^3/uL (0.00-0.03); Immature Granulocytes Pct Auto 0.4 % (0.0-0.5); Lymphocytes Absolute Auto 1.7 10^3/uL (1.2-3.8); Mean Corpuscular HGB Conc 33.4 g/dL (29.9-35.2); Mean Corpuscular Hemoglobin 31.7 pg (26.7-34.0); Mean Corpuscular Volume 94.7 fL (81.0-99.0); Platelet Count 323 10^3/uL (150-450); Red Blood Count 3.98 10^6/uL (4.20-5.40); White Blood Count 7.5 10^3/uL (4.0-11.0)
[2025-06-29 16:05] LABS: Thyroid Stimulating Hormone 0.947 uIU/mL (0.358-3.740); Total Protein 7.0 g/dL (6.4-8.2)
[2025-06-30 04:07] LABS: FSH 4.9 mIU/mL (.)
[2025-06-30 14:13] LABS: Anticardiolipin Ab,IgM,Qn <9 MPL U/mL (0-12)
[2025-06-30 15:08] LABS: Beta-2 Glycoprotein I Ab, IgA <9 (0-25); Beta-2 Glycoprotein I Ab, IgG <9 (0-20); Beta-2 Glycoprotein I Ab, IgM <9 (0-32)
[2025-07-06 12:08] LABS: DILUTE RUSSELL'S VIPER VENOM 37.7 sec (.)
== END 2025-06-29 11:29 | disposition home or self-care (01) ==
LOC: LAB 11:29
PROVIDERS: PCP Nurse Practitioner Family; Visit Provider Obstetrics & Gynecology
DX: N94.6 Dysmenorrhea, unspecified (principal); N93.9 Abnormal uterine and vaginal bleeding, unspecified; R10.30 Lower abdominal pain, unspecified
CPT/HCPCS: 36415; 81241; 82626; 82627; 83001; 83002; 83036; 84155; 84439; 84443; 84702; 85025; 85300; 85303; 85306; 85613; 86146; 86147

== ENCOUNTER 2025-07-24 12:48 | Outpatient (OUT) | payer OTHER, SELFPAY ==
--- OUTSIDE RECORDS SUMMARY | 2025-07-24 12:55 | XMS_ITS | Clinical Summary ---
Author Organization [employer] [facility] tem Address [id number] [place] [address] Care Team Providers Care Digital Engineer Name Role Phone Unavailable Primary Care Provider Unavailabl e Allergies Active AllergyReactionsCriticalityNoted DateCommentsGalcanezumab-Gnlm01/11/2024 Lavender Oil01/11/20246363Ocxfxzre01/24/2024 Medications MedicationSigDispense QuantityRefillsLast FilledStart DateEnd DateStatus by573-rcuh-tbzog acid ( 19) 29 mg iron- 1 [...] DateDiagnosed DateEchogenic intracardiac focus of fetus on dpctnqgpyr25/08/2024rior with placenta abruption in first trimester, aymqkgaazi43/03/2024TSD (post-traumatic stress disorder)OCD (obsessive compulsive disorder)History of [...] RecordedSex Assigned at BirthNot on fileLegal Sex Cknksi7801/10/2024 3:34 PM EDTGender IdentityNot on fileSexual OrientationNot on file Last Filed Vital Signs Vital SignReadingTime TakenCommentsBlood Ehvjmqvr28/5007 1:18 PM EDT Bhgpm826702/25/2024 1:18 PM EDTTemperature--Respiratory Rate--Oxygen Saturation-- Inhaled Oxygen Concentration--Rqzvwk43.9 kg (154 lb 3.2 oz)02/25/2024 1:18 PM JEPXlothx411.3 cm (5' 11 )02/25/2024 1:18 PM EDTBody Mass Index21.51002/25/2024 1:18 PM EDT Plan of Treatment Health MaintenanceDue DateLast DoneCommentsDepression Gvwuiczvq14/21/2009 DTaP,Tdap and Td Vaccines (1 - Tdap)11/08/2015Pap Smear2017Adult BMI Npixpxndv08/08//03/2024Tobacco Yekhttwah99/08/OVID-19 Vaccine ( - 2024- season)/01/2021, 05/04/2021Influenza Vaccine 04/20/2025 Medical Devices Not on file Insurance
--- OUTSIDE RECORDS SUMMARY | 2025-07-24 12:57 | XMS_ITS | Clinical Summary ---
Author Organization [facility] Address [address] [place] [address] Care Team Providers Care Catcher Plug Name Role Phone Unavailable Primary Care Provider Unavailabl e Medications MedicationSigDispense QuantityRefillsLast FilledStart DateEnd DateStatus clonazePAM 0.5 MG tablet Take 1 tablet by mouth. As cxczmb0005/08/2023ctive tiZANidine 4 MG tablet Take 1 tablet [...] InformationValueDate RecordedSex Assigned at BirthNot on fileLegal AznWnthup50/01/2024 1:43 PM ESTGender Identity Not on fileSexual OrientationNot on file Last Filed Vital Signs Vital SignReadingTime TakenCommentsBlood Hceojzjh611/80011/02/2023 2:27 PM EDT Pulse--Temperature--Respiratory Rate--Oxygen Saturation--Inhaled Oxygen Concentration--Bxcczd46.2 kg (143 lb 11.2 oz)11/02/2023 2:27 PM AOOJavoki695.3 cm (5' 11 )11/02/2023 2:27 PM EDTBody Mass Index20.04011/02/2023 2:27 PM EDT Plan of Treatment Health MaintenanceDue DateLast DoneCommentsHEPATITIS C VIRUS FOUTRLAHB30/21/1997 ZKJMRWC46 1996HIV SCREENING BYQKTIJMHZ68/21/2012HEP B VACCINE (1 of 3 - 19+ 3-dose series)11/08/2015TDAP (ADULT)11/08/2015CERVICAL CANCER SCREENING RKMECCEGDT48/21/2018HPV VACCINE (1 - 3-dose SCDM series)4COVID-19 VACCINE (3 - 2024- season)510/01/2021, 05/04/2021INFLUENZA VACCINE (#1)2025PNEUMOCOCCAL VACCINE SERIESAged OutNo longer eligible based on patient's age to complete this topic Insurance
--- OUTSIDE RECORDS SUMMARY | 2025-07-24 12:57 | XMS_ITS | Clinical Summary ---
Author Organization [facility] Healthcare Address [address] [place] [address] Care Team Providers Care Apprentice Architect Name Role Phone Lucila Arnett TICKET MARKER Primary Care Provider Allergies Active AllergyReactionsCriticalityNoted DateCommentsGalcanezumab-GnlmHigh 11/21/20232541GgtcafduaotcWagtiAcneki61/24/2024 Other Reaction(s): Hives Lavender OilUnknown,QrcoVna6110/16/2023TramadolHives,Unknown,UdxqWblrhf91/27/2024 Other Reaction(s): Not available Other Reaction(s): Unknown, Unknown Reaction Medications MedicationSigDispense QuantityRefillsLast FilledStart DateEnd DateStatus clonazePAM (KlonoPIN) 0.5 MG tablet Take 0.5 mg by mouth 2 (two) times a day as needed for hjzahat3607/16/2024ctive tiZANidine (Zanaflex) 4 MG tablet Take 4 mg by mouth every 6 (six) hours if needed for muscle fnaugs2701/10/2024 Active citalopram (CeleXA) 20 MG tablet Indications:Mood disorderTake 1 tablet (20 mg) by mouth Daily 30 tablet 11008/27/0941386Active amphetamine-dextroamphetamine XR (Adderall XR) 10 MG 24 hr capsule TAKE 1 CAPSULE BY MOUTH DAILY IN THE QQASMUV26/06/2025Active amphetamine-dextroamphetamine XR (Adderall XR) 20 MG 24 hr capsule 5Active baclofen (Lioresal) 10 MG tablet TAKE 1 TABLET BY MOUTH THREE TIMES DAILY FOR 10 DAYS5Active Vraylar 1.5 MG capsule Take 1 capsule by mouth Daily5Active Active Problems ProblemNoted DateDiagnosed Date24 weeks gestation of ([facility]) 4Prior with placenta abruption in third trimester, antepartum ([facility])4Pelvic pain in fuhuud1403/27/2024Second trimester ([facility])03/27/2024iabetes mellitus krtehklpo08/08/2024Right hip pain01/03/2024 History of placenta funrsswbj76/16/2024Nausea and vomiting in ([facility])01/03/2024Heartburn during in first trimester ([facility]) 01/03/2024H/O delivery, currently , first trimester ([facility]) 01/03/2024bdominal pain affecting ([facility])01/03/2024First trimester ([facility])01/03/20246233Vylstbcup81/16/2024 Encounters DateTypeDepartmentCare JcajZkxuxedmkgj51/10/2025linisync Result Encounter [facility] External Department Unsolicited Moi Rueda DO 06/22/2025 1:00 PM ESTOffice Visit [facility] [address] [place] [address] Moi Rueda DO Dysmenorrhea; Abnormal uterine bleeding (AUB); Bleeding disorder; PCOS (polycystic ovarian syndrome); Pelvic pain in puphrv9106/22/2025amboo flowsheet [facility] [address] [place] [address] Moi Rueda DO 06/17/2025Telephone [facility] [address] [place] [address] Moi Rueda DO from Last 3 Months Family History RelationNameStatusCommentsFatherAliveMotherAlive Social History Tobacco UseTypesPacks/DayYears UsedDateSmoking Tobacco: NeverSmokeless Tobacco: Never Tobacco Cessation:Counseling Given: Not Answered CommentsUnknownSex and Gender InformationValueDate RecordedSex Assigned at BirthNot on fileLegal DgwFepdqz81/15/2023 7:02 PM EDTGender IdentityNot on fileSexual OrientationNot on file Last Filed Vital Signs Vital SignReadingTime TakenCommentsBlood Hkpvjted094/7811 1:18 PM EST Keaoz14302/01/2024 8:20 AM ESTTemperature--Respiratory Pmax9858 8:20 AM ESTOxygen Saturation--Inhaled Oxygen Concentration--Oeogap18.5 kg (137 lb 12.8 oz)06/22/2025 1:18 PM WMTVedeun195.3 cm (5' 11 )06/22/2025 1:18 PM ESTBody Mass Index19.22108/22/2024 1:18 PM EST Plan of Treatment Health MaintenanceDue DateLast DoneCommentsCOVID-19 Vaccine ( season) 2025Influenza Vaccine (#1)5005/18/2011, 06/13/2010Pneumococcal Vaccine: Pediatrics (0 to 5 Years) and At-Risk Patients (6 to 64 Years)Aged Out No longer eligible based on patient's age to complete this topic Procedures Procedure NamePriorityDate/TimeAssociated DiagnosisCommentsUH DILUTE ABHISHEK VIPER VENOM LKZYWvusdum07/10/2025 11:55 AM EST FACTOR V LEIDEN DVSWMMPLLdoqnxj61/10/2025 11:55 AM EST ANTICARDIOLIPIN AB, IGM, KXEnzryjr10/10/2025 11:55 AM EST BETA-2 GLYCOPROTEIN I AB,G,A,OPadnesn00/10/2025 11:55 AM EST ALL FOLLICLE STIMULATING DCPUPCLSwjbyxe41/10/2025 11:55 AM EST ALL LUTEINIZING LSKZQNAPyspvki68/10/2025 11:55 AM EST ALL DHEA GKLSXWNBcrprkx59/10/2025 11:55 AM EST PROTEIN S, UWBRNoslpws26/10/2025 11:55 AM EST PROTEIN C-YPNKOZPHJAQvqrpii07/10/2025 11:55 AM EST TBH ANTITHROMBIN UDTRVVAMHdtubxn04/10/2025 11:55 AM EST TBH PREG QUANT IOGUyhnksk04/10/2025 11:55 AM EST ALL THYROID STIM VPPXRJECpbotue53/10/2025 11:55 AM EST ALL TOTAL AWDLNLSBxpjteg76/10/2025 11:55 AM EST MLR HEMOGLOBIN V1KFdoyevn92/10/2025 11:55 AM EST ALL THYROXINE (T4) ECLQZclaewt09/10/2025 11:55 AM EST ALL CBC WITH AUTO UAKNTqethnp11/10/2025 11:55 AM EST from Last 3 Months Results * PROTEIN S, FREE (06/29/2025 11:55 AM EST)ComponentValueRef RangeTest Method Analysis TimePerformed AtPathologist SignaturePROTEIN S, DVKA7219 - 136 %[facility] Comment: Performed at: ??BN - [facility] [address] ??[id number] Railroad Car Inspector: Lisandra Orr MD, Phone: ??[phone] Specimen (Source)Anatomical Location / LateralityCollection Method / Volume Collection TimeReceived Time06/29/2025 11:55 AM EST06/29/2025 11:59 AM EST Narrative CLIN[facility] - 06/30/2025 12:12 PM EST Authorizing ProviderResult TypeResult StatusCorey Marybeth DOLAB BLOOD ORDERABLES Final ResultPerforming OrganizationAddressCity/State/ZIP CodePhone Number [facility] * ANTICARDIOLIPIN AB, IGM, QN (06/29/2025 11:55 AM EST)ComponentValueRef Range Test MethodAnalysis TimePerformed AtPathologist SignatureANTICARDIOLIPIN AB,IGM,QN<90 - 12 MPL U/mLTBHComment: Negative: <13 ?Indeterminate: ? 13 - 20 Low-Med Positive: >20 - 80 High Positive: >80 Performed at: ??[address] ??[id number] Railroad Car Inspector: Gerson Orlando PhD, Phone: ??[phone] Specimen (Source)Anatomical Location / LateralityCollection Method / Volume Collection TimeReceived Time06/29/2025 11:55 AM EST06/29/2025 11:59 AM EST Narrative CLINISYNC - 06/30/2025 3:08 PM EST Authorizing ProviderResult TypeResult StatusCorey Marybeth DOLAB BLOOD ORDERABLES Final ResultPerforming OrganizationAddressCity/State/ZIP CodePhone Number [facility] * BETA-2 GLYCOPROTEIN I AB,G,A,M (06/29/2025 11:55 AM EST)ComponentValueRef RangeTest MethodAnalysis TimePerformed AtPathologist SignatureBETA-2 GLYCOPROTEIN I AB, IGG<90 - 20TBHComment:Result Units: GPI IgG unitsBETA-2 GLYCOPROTEIN I AB, IGA<90 - 25TBHComment:Result Units: GPI IgA unitsBETA-2 GLYCOPROTEIN I AB, IGM<90 - 32TBHComment: Result Units: GPI IgM units Performed at: ??[address] ??[id number] Railroad Car Inspector: Gerson Orlando PhD, Phone: ??[phone] Specimen (Source)Anatomical Location / LateralityCollection Method / Volume Collection TimeReceived Time06/29/2025 11:55 AM EST06/29/2025 11:59 AM EST Narrative CLINISYNC - 06/30/2025 3:08 PM EST Authorizing ProviderResult TypeResult StatusCorey Marybeth DOLAB BLOOD ORDERABLES Final ResultPerforming OrganizationAddressCity/State/ZIP CodePhone Number [facility] * PROTEIN C-FUNCTIONAL (06/29/2025 11:55 AM EST)ComponentValueRef RangeTest MethodAnalysis TimePerformed AtPathologist SignaturePROTEIN C-OTBWVNHRBG8213 - 180 %TBHComment: A deficiency of protein C (PC), either congenital or acquired, increases the risk of thromboembolism. Acquired PC deficiency occurs more frequently than congenital deficiency. PC levels can be transiently diminished after a thrombotic event or surgery or in the presence of certain anticoagulants. Heparin, direct Xa inhibitor, or thrombotic inhibitor therapy does not alter PC levels physiologically and does not interfere with this assay because it is chromogenic and clot-based. Vitamin K antagonist therapy may decrease plasma levels of functional protein C (PC) as PC is a vitamin K-dependent protein. Vitamin K deficiency, due to dietary insufficiency or malabsorption will also lead to reduced PC levels. Acquired deficiency can be found in individuals with disseminated intravascular coagulation (DIC) and sepsis. Severe hepatic disorders (hepatitis, cirrhosis, etc.), nephrotic syndrome, malignancy and inflammatory bowel disease can lead to diminished PC levels. Drug therapy with L-asparaginse or fluorouracil can also reduce PC levels. Levels may be decreased in patients with polycythemia vera, sickle cell disease and essential thrombocythemia. Repeat evaluation on a new plasma sample to confirm or refute this result should be considered, after ruling out acquired causes, depending on the clinical scenario. Performed at: ?? - [facility] ??[id number] Railroad Car Inspector: Lisandra Orr MD, Phone: ??[phone] Specimen (Source)Anatomical Location / LateralityCollection Method / Volume Collection TimeReceived Time06/29/2025 11:55 AM EST06/29/2025 11:59 AM EST Narrative CLINISYNC - 06/30/2025 11:08 AM EST Authorizing ProviderResult TypeResult StatusCorey [facility] BLOOD ORDERABLES Final ResultPerforming OrganizationAddressCity/State/ZIP CodePhone Number [facility]ISYFORMERLY [facility] * FACTOR V LEIDEN MUTATION (06/29/2025 11:55 AM EST)ComponentValueRef RangeTest MethodAnalysis TimePerformed AtPathologist SignatureTBH FACTOR V LEIDEN MUTATIONComment.TBHComment: Result: c.1601G>A (p.Lnf260Mea) - Not Detected This result is not associated with an increased risk for venous thromboembolism. See Additional Clinical Information and Comments. Additional Clinical Information: ?Venous thromboembolism is a multifactorial disease influenced by genetic, environmental, and circumstantial risk factors. The c.1601G>A (p. Xaa691Ugs) variant in the F5 gene, commonly referred to as Factor V Leiden, is a genetic risk factor for venous thromboembolism. Heterozygous carriers of this variant have a 6- to 8-fold increased risk for venous thromboembolism. Individuals homozygous for this variant (ie, with a copy of the variant on each chromosome) have an approximately 80-fold increased risk for venous thromboembolism. Individuals who carry both a c.*97G>A variant in the F2 gene and Factor V Leiden have an approximately 20-fold increased risk for venous thromboembolism. Risks are likely to be even higher in more complex genotype combinations involving the F2 c.*97G>A variant and Factor V Leiden (PMID: 89960081). Additional risk factors include but are not limited to: deficiency of protein C, protein S, or antithrombin III, age, male sex, personal or family history of deep vein thromboembolism, smoking, surgery, prolonged immobilization, malignant neoplasm, tamoxifen treatment, raloxifene treatment, oral contraceptive use, hormone replacement therapy, and . Management of thrombotic risk and thrombotic events should follow established guidelines and fit the clinical circumstance. This result cannot predict the occurrence or recurrence of a thrombotic event. Comment: ?Genetic counseling is recommended to discuss the potential clinical implications of positive results, as well as recommendations for testing family members. ?Genetic Coordinators are available for health care providers to discuss results at [phone] [phone]). Test Details: Variant Analyzed: c.1601G>A (p. Lto889Jee), referred to as Factor V Leiden Methods/Limitations: ?DNA analysis of the F5 gene (NM_000130.5) was performed by PCR amplification followed by electrophoresis. The diagnostic sensitivity is >99%. Results must be combined with clinical information for the most accurate interpretation. Molecular-based testing is highly accurate, but as in any laboratory test, diagnostic errors may occur. False positive or false negative results may occur for reasons that include genetic variants, blood transfusions, bone marrow transplantation, somatic or tissue-specific mosaicism, mislabeled samples, or erroneous representation of family relationships. ?This test was developed and its performance characteristics determined by [employer]. It has not been cleared or approved by the Food and Drug Administration. References: ?Nicole S, Ann-Marie ERNST, Franco R, Bryanna WW, Dagoberto JH; [employer]G Professional Practice and Guidelines Committee. Addendum: [place] [employer] consensus statement on factor V Leiden mutation testing. Lana Med. 2020Oct 22. doi: 10.1038/n78186-476-35646-g. PMID: 52145116. ?Tejas FRANCISCO. Factor V Leiden Thrombophilia. 1998December 31 (Updated 2017Aug 23). In: Jesse MP, Karine HH, Michelle RA, et al., editors. Chris(R) (Internet). [place] ([place]): [employer]; 8506-1006. Available from: https://www.ncbi.nlm.nih.gov/books/QXA5912/ ?Enrrique S, Ann-Marie ERNST, Chandler X, Wilfrido B, Maco EB, Subha P, Vinicius CS; [employer] Laboratory Filter Washer And Presser Committee. Venous thromboembolism laboratory testing (factor V Leiden and factor II c. *97G>A), 2018 update: a technical standard of the [place] [employer] and Genomics (ACMG). Lana Med. 2018 Jul;20(12): 6532-5007. doi: 10.1038/k33105-132-3323-g. Epub 2017May 24. PMID: 88010443. TBH REVIEWED BYComment.TBHComment: Technical Component performed at [facility] RT Professional Component performed by: Glenroy Petty, PhD, [facility] [id number], [facility], [address] [facility] [address] Performed at: ??TG - [facility] [address], [facility], [place] ??[id number] Railroad Car Inspector: Lonny De Souza [facility], Phone: ??[phone] Specimen (Source)Anatomical Location / LateralityCollection Method / Volume Collection TimeReceived Time06/29/2025 11:55 AM EST06/29/2025 11:59 AM EST Narrative CLINISYNC - 07/06/2025 11:08 AM EST Authorizing ProviderResult TypeResult StatusCorey Marybeth DOLAB BLOOD ORDERABLES Final ResultPerforming OrganizationAddressCity/State/ZIP CodePhone Number [facility] * [facility] ANTITHROMBIN ACTIVITY (06/29/2025 11:55 AM EST)ComponentValueRef RangeTest MethodAnalysis TimePerformed AtPathologist SignatureTBH ANTITHROMBIN ACTIVITY 08772 - 135 %TBHComment: Direct Xa inhibitor anticoagulants such as rivaroxaban, apixaban and edoxaban will lead to spuriously elevated antithrombin activity levels possibly masking a deficiency. Specimen (Source)Anatomical Location / LateralityCollection Method / Volume Collection TimeReceived Time06/29/2025 11:55 AM EST06/29/2025 11:59 AM EST Narrative CLINISYNC - 06/30/2025 11:08 AM EST Authorizing ProviderResult TypeResult StatusCore Marybeth DOCLINISYNCFinal Result Performing OrganizationAddressty/State/ZIP CodePhone Number [facility]ICT[facility]RI [facility] * [facility] DILUTE ABHISHEK VIPER VENOM TIME (06/29/2025 11:55 AM EST)ComponentValueRef RangeTest MethodAnalysis TimePerformed AtPathologist SignatureDILUTE ABHISHEK'S VIPER VENOM37.7. secTBHComment: Reference Range: <= 47.0 DRVVT.2TNP. secTBHComment:Testing Not IndicatedDRVVT.3TNP. ratioTBHComment: Testing Not Indicated Performed at: ??[facility] [employer] [address] ??[id number] Railroad Car Inspector: Jae Berger MD, Phone: ??[phone] Specimen (Source)Anatomical Location / LateralityCollection Method / Volume Collection TimeReceived Time06/29/2025 11:55 AM EST06/29/2025 11:59 AM EST Narrative CLINISYNC - 07/06/2025 12:08 PM EST Authorizing ProviderResult TypeResult StatusCoreluis fernando Rueda DOCLINISYNCFinal Result Performing OrganizationAddressCity/State/ZIP CodePhone Number BENEDICTISYNC TB * TBH PREG QUANT HCG (06/29/2025 11:55 AM EST)ComponentValueRef RangeTest Method Analysis TimePerformed AtPathologist SignatureHCG QUANTITATIVE<1mIU/mLTBH Comment: 5-50 ? 0.2-1 WEEK 50-500 ? 1-2 WEEKS 100-5,000 ?2-3 WEEKS 500-10,000 ? 3-4 WEEKS 1,000-50,000 ?? 4-5 WEEKS 10,000-100,000 5-6 WEEKS 15,000-200,000 6-8 WEEKS 10,000-100,000 2-3 MONTHS Specimen (Source)Anatomical Location / LateralityCollection Method / Volume Collection TimeReceived Time06/29/2025 11:55 AM EST06/29/2025 11:59 AM EST Narrative CLINISYNC - 06/29/2025 4:08 PM EST Authorizing ProviderResult TypeResult StatusCorey Marybeth DOCLINISYNCFinal Result Performing OrganizationAddressCity/State/ZIP CodePhone Number [facility] * MLR HEMOGLOBIN A1C (06/29/2025 11:55 AM EST)ComponentValueRef RangeTest Method Analysis TimePerformed AtPathologist SignatureGLYCOHEMOGLOBIN A1C4.94.5 - 6.2 %TBHComment: ADA RECOMMENDED LIMIT 4.0 - 6.0 ADA THERAPEUTIC TARGET < 7.0 ACTION SUGGESTED > 7.0 ESTIMATED AVERAGE QJYOWQE86jx/dLTBHSpecimen (Source)Anatomical Location / LateralityCollection Method / VolumeCollection TimeReceived Time06/29/2025 11:55 AM EST06/29/2025 11:59 AM EST Narrative CLINISYNC - 06/29/2025 3:58 PM EST Authorizing ProviderResult TypeResult StatusCorey Marybeth DOCLINISYNCFinal Result Performing OrganizationAddressCity/State/ZIP CodePhone Number [facility] * ALL TOTAL PROTEIN (06/29/2025 11:55 AM EST)ComponentValueRef RangeTest Method Analysis TimePerformed AtPathologist SignatureTOTAL PROTEIN7.06.4 - 8.2 g/dL TBHSpecimen (Source)Anatomical Location / LateralityCollection Method / Volume Collection TimeReceived Time06/29/2025 11:55 AM EST06/29/2025 11:59 AM EST Narrative CLINISYNC - 06/29/2025 4:08 PM EST Authorizing ProviderResult TypeResult StatusCorey Marybeth DOCLINISYNCFinal Result Performing OrganizationAddressCity/State/ZIP CodePhone Number [facility] * ALL THYROXINE (T4) FREE (06/29/2025 11:55 AM EST)ComponentValueRef RangeTest MethodAnalysis TimePerformed AtPathologist SignatureFREE T40.850.76 - 1.46 ng/dLTBHSpecimen (Source)Anatomical Location / LateralityCollection Method / VolumeCollection TimeReceived Time06/29/2025 11:55 AM EST06/29/2025 11:59 AM EST Narrative CLINISYNC - 06/29/2025 2:10 PM EST Authorizing ProviderResult TypeResult StatusCorey Marybeth DOCLINISYNCFinal Result Performing OrganizationAddressty/State/ZIP CodePhone Number [facility] * ALL THYROID STIM HORMONE (06/29/2025 11:55 AM EST)ComponentValueRef RangeTest MethodAnalysis TimePerformed AtPathologist SignatureTHYROID STIMULATING HORMONE0.9470.358 - 3.740 uIU/mLTBHSpecimen (Source)Anatomical Location / LateralityCollection Method / VolumeCollection TimeReceived Time06/29/2025 11:55 AM EST06/29/2025 11:59 AM EST Narrative CLINISYNC - 06/29/2025 4:08 PM EST Authorizing ProviderResult TypeResult StatusCorey Marybeth DOCLINISYNCFinal Result Performing OrganizationAdd[facility]/State/ZIP CodePhone Number [facility] * ALL LUTEINIZING HORMONE (06/29/2025 11:55 AM EST)ComponentValueRef RangeTest MethodAnalysis TimePerformed AtPathologist SignatureLUTEINIZING HORMONE(LH) 14.4. mIU/mLTBHComment: ? Adult Female ?Range ?Follicular phase ?2.4 - ??12.6 ?Ovulation phase ?14.0 - ??95.6 ?Luteal phase ?1.0 - ??11.4 ?Postmenopausal ?7.7 - ??58.5 Specimen (Source)Anatomical Location / LateralityCollection Method / Volume Collection TimeReceived Time06/29/2025 11:55 AM EST06/29/2025 11:59 AM EST Narrative CLINISYNC - 06/30/2025 3:08 PM EST Authorizing ProviderResult TypeResult StatusCorey Marybeth DOCLINISYNCFinal Result Performing OrganizationAddressCity/State/ZIP CodePhone Number [facility] * ALL FOLLICLE STIMULATING HORMONE (06/29/2025 11:55 AM EST)ComponentValueRef RangeTest MethodAnalysis TimePerformed AtPathologist SignatureFSH4.9. mIU/mL TBHComment: ? Adult Female ? Range ?Follicular phase ?3.5 - ??12.5 ?Ovulation phase ? 4.7 - ??21.5 ?Luteal phase ?1.7 - ?? 7.7 ?Postmenopausal ? 25.8 - 134.8 Performed at: ??CB - [facility] [address] [place], [place] ??[id number] Railroad Car Inspector: Gerson Orlando PhD, Phone: ??[phone] Specimen (Source)Anatomical Location / LateralityCollection Method / Volume Collection TimeReceived Time06/29/2025 11:55 AM EST06/29/2025 11:59 AM EST Narrative CLINISYRI - 06/30/2025 3:08 PM EST Authorizing ProviderResult TypeResult StatusCorey Marybeth DOCLINISYNCFinal Result Performing OrganizationAddressCity/State/ZIP CodePhone Number [facility] * ALL DHEA SULFATE (06/29/2025 11:55 AM EST)ComponentValueRef RangeTest Method Analysis TimePerformed AtPathologist SignatureDHEA-FQVBDPJ303.084.8 - 378.0 ug/dLTBHSpecimen (Source)Anatomical Location / LateralityCollection Method / VolumeCollection TimeReceived Time06/29/2025 11:55 AM EST06/29/2025 11:59 AM EST Narrative CLINISYRI - 06/30/2025 3:08 PM EST Authorizing ProviderResult TypeResult StatusCorey Marybeth DOCLINISYNCFinal Result Performing OrganizationAddressCity/State/ZIP CodePhone Number [facility] * (ABNORMAL) ALL CBC WITH AUTO DIFF (06/29/2025 11:55 AM EST)ComponentValueRef RangeTest MethodAnalysis TimePerformed AtPathologist SignatureTBH WBC7.54.0 - 11.0 10 3/uLTBHTBH RBC3.98(L)4.20 - 5.40 10 6/uLTBHTBH HGB12.612.0 - 16.0 g/dL TBHTBH HCT37.736.0 - 48.0 %TBHTBH MCV94.781.0 - 99.0 fLTBHTBH MCH31.726.7 - 34.0 pgTBHTBH MCHC33.429.9 - 35.2 g/dLTBHTBH RDW12.611.0 - 15.0 %TBHTBH PTS883 150 - 450 10 3/uLTBHTBH MPV9.2(L)9.5 - 13.5 fLTBHNEUTROPHILS PERCENT AUTO65.7 43.0 - 75.0 %TBHLYMPHOCYTES PERCENT AUTO22.720.5 - 60.0 %TBHMONOCYTES PERCENT AUTO8.21.7 - 12.0 %TBHTBH EO %2.10.9 - 7.0 %TBHBASOPHILS PERCENT AUTO0.90.2 - 2.0 %TBHIMMATURE GRANULOCYTES PCT AUTO0.40.0 - 0.5 %TBHNEUTROPHILS ABSOLUTE AUTO4.91.4 - 6.5 10 3/uLTBHLYMPHOCYTES ABSOLUTE AUTO1.71.2 - 3.8 10 3/uLTBH MONOCYTES ABSOLUTE AUTO0.60.3 - 0.8 10 3/uLTBHTBH EO #0.20.0 - 0.7 10 3/uLTBH BASOPHILS ABSOLUTE AUTO0.10.0 - 0.1 10 3/uLTBHIMMATURE GRANULOCYTES ABS AUTO 0.030.00 - 0.03 10 3/uLTBHSpecimen (Source)Anatomical Location / Laterality Collection Method / VolumeCollection TimeReceived Time06/29/2025 11:55 AM EST 06/29/2025 11:59 AM EST Narrative CLINISYNC - 06/29/2025 12:49 PM EST Authorizing ProviderResult TypeResult StatusCorey Marybeth DOCLINISYNCFinal Result Performing OrganizationAddressCity/State/ZIP CodePhone Number CLINISYNC TB from Last 3 Months Insurance Care Teams Team MemberRelationshipSpecialtyStart DateEnd Date Lucila Arnett NP [facility] [place] [address] PCP - GeneralFamily Medicine11/11/23
--- OUTSIDE RECORDS SUMMARY | 2025-07-24 12:57 | XMS_ITS | Clinical Summary ---
Author Organization [facility] Address [address] [place] [id number] Care Team Providers Care Thickener Operator Name Role Phone Lucila Arnett ASSISTANT PROFESSOR OF BUSINESS Unavailable [phone] Social History Tobacco UseTypesPacks/DayYears UsedDateSmoking Tobacco: Never Assessed CommentsUnknownSex and Gender InformationValueDate RecordedSex Assigned at Not on fileLegal IyyUnvjjg34/20/2025 11:37 AM EDTGender IdentityNot on file Sexual OrientationNot on file Plan of Treatment Not on file Insurance Care Teams Team MemberRelationshipSpecialtyStart DateEnd Date Lucila Arnett NP [address] [place] [address] ReferringNurse Practitioner01/06/25
--- OUTSIDE RECORDS SUMMARY | 2025-07-24 12:59 | XMS_ITS | CCD ---
Author Organization [facility] [place] [facility] Care Team Providers Care Marriage And Family Therapist Name Role Phone MARYBETH, DR UPTON Admitting [...] Unavailable LUCILA ARNETT Primary Care Physician [phone] KHADRA ARNETT Attending Unava ilable KHADRA ARNETT [...] Rohrbacher Lucila CHANG Primary Care Provider Rohrbacher DIRECT CARE PROFESSIONAL, Lucila Primary Care Provider Rohrbacher DIRECT CARE PROFESSIONAL, Lucila Attending Provider Lucila Arnett Attending Unavailable Ellyrbacher, Lucila Primary Care Unavailable RohrbacherTawnyLucila Admitting Unavailable Unavailable Primary Care Provider Unavailabl e Rohrbacher DIRECT CARE PROFESSIONAL, Lucila Primary Care Provider Rohrbacher DIRECT CARE PROFESSIONAL, Lucila Attending Provider Marybeth DO, Moi Unavailable Marybeth DO, Moi Unavailable DORITA QUIROGA Attending Unavailable MARYBETH, MOI Attending Unavailable MARYBTEH, MOI Attending Unavailable MARYBETH, MOI Attending Unavailable MARYBETH, MOI Attending Unavailable Rohrbacher REAL, Lucila Primary Care Provider Rohrbacher REAL, Lucila Attending Provider Allergies Allergy ClassificationReported Allergen(s)Allergy TypeDate of OnsetReaction(s) FacilityOpioid Agonists (1 source)traMADolDrug Wcymxub77-07-8729ClnW[facility] (20 sources)traMADol; Translations: [TRAMADOL]Drug Jgqudhu19-92-4971Hsmtwpk, HivesWVUMedicine [facility] (20 sources)Lavender Oil; Translations: [LAVENDER OIL]Drug gpqezub30-72-9269 Unknown, RashProMedica Repository (8 sources)lavender (Lavandula angustifolia); Translations: [lavender (Lavandula angustifolia)]Allergy to kcnphyqbj67-16-2182[facility] ([facility])GALCANEZUMAB-GNLM; Translations: [GALCANEZUMAB-GNLM]Propensity to adverse reactions to drug (disorder)37-15-0404CwkIhxvaa Repository (20 sources)GalcanezumabPropensity to adverse -23-0923JqudzXPXA Healthcare Work Phone: (1 source)traMADolDrug Ncgkbii29-24-6010AynenbwefDoctors Hospital Repository Medications Current Medications MedicationDrug Class(es)DatesSig (Normalized)Sig (Original)acetaminophen 325 mg oral tablet (1 source)Start: 10-55-1246uchapdrbyfddh 325 mg tablet PLEASE SEE ATTACHED FOR DETAILED DIRECTIONS - Activeacetaminophen 300 mg / codeine phosphate 30 mg oral tablet (1 source)Opioid AgonistStart: 88-48-6869bshddnlwpnnrj 300 mg-codeine 30 mg tablet - [id number] 200 actuat albuterol 0.09 mg/actuat metered dose inhaler (1 source)beta2-Adrenergic AgonistStart: 86-18-8227zknt 1 puff(s) by inhalation every four to six hours as needed for wheezingamoxicillin 875 mg oral tablet (2 sources)Penicillin-class AntibacterialStart: 67-08-8011crzz 1 tablet by mouth every twelve hoursamoxicillin 875 mg tablet TAKE 1 TABLET BY MOUTH EVERY 12 HOURS FOR 10 DAYS UNTIL ALL TAKEN - ActiveStart: 12-26-2022 amoxicillin 500 mg capsule - Zxhnhn28 hr amphetamine aspartate 5 mg / amphetamine sulfate 5 mg / dextroamphetamine saccharate 5 mg / de xtroamphetamine sulfate 5 mg extended release oral capsule (12 sources)Central Nervous System StimulantStart: 83-19-1650ykowhwmfiac- dextroamphetamine XR (Adderall XR) 20 MG 24 hr capsule 01/08/2025 ActiveStart: 59-06-6271nfxt 1 capsule by mouth once daily in the morningamphetamine- dextroamphetamine XR (Adderall XR) 10 MG 24 hr capsule TAKE 1 CAPSULE BY MOUTH DAILY INTHE MORNING 10/23/2024 Activeaspirin 81 mg delayed release oral tablet (20 sources)Platelet Aggregation Inhibitor, Nonsteroidal Anti-inflammatory Drug Start: 02-25-2024 End: 22-76-7956nykhfbi 81 mg Indications: 18 weeks gestation of , History of placenta abruption , History of delivery, currently Take 1 tablet once a day until 36 weeks gestation 30 tablet 6 02/25/2024 Active baclofen 10 mg oral tablet (8 sources)gamma-Aminobutyric Acid-ergic AgonistStart: 12-30-2024 End: 64-58-3150ewxr 1 tablet by mouth three times dailybaclofen (Lioresal) 10 MG tablet TAKE 1 TABLET BY MOUTH THREE TIMES DAILY FOR 10 DAYS 12/30/2024 Active brompheniramine maleate 0.4 mg/ml / dextromethorphan hydrobromide 2 mg/ml / pseudoephedrine hydrochloride 6 mg/ml oral solution (1 source)alpha-Adrenergic Agonist, Uncompetitive K-ctcvqj-X-aspartate Receptor Antagonist, Sigma-1 AgonistStart: 46-74-2329lcdd 5 mL by mouth four times daily Bromfed DM oral syrup 5 mL, Oral, QID for cold symptoms, 200 mL, Refill(s) 0 Start Date: 09/30/17 Status: Orderedcariprazine 1.5 mg oral capsule (6 sources)Atypical AntipsychoticStart: 59-15-4789lwal 1 capsule by mouth once dailyVraylar 1.5 MG capsule Take 1 capsule by mouth Daily 10/09/2024 Active celecoxib 200 mg oral capsule (1 source)Nonsteroidal Anti-inflammatory DrugStart: 62-72-2834cabledult 200 mg capsule - Active0.5 ml choriogonadotropin martha 0.5 mg/ml prefilled syringe (1 source)GonadotropinStart: 45-27-6788Bjgjuzo 250 mcg/0.5 mL subcutaneous syringe - Activecitalopram 20 mg oral tablet (9 sources)Serotonin Reuptake InhibitorStart: 08-27-2024 End: 69-83-2637arce 1 tablet by mouth once dailycitalopram (CeleXA) 20 MG tablet Indications: Mood disorder Take 1 tablet (20 mg) by mouth Daily 30tablet 11 08/27/2024 08/27/2025 ActiveclonazePAM 0.5 mg oral tablet (20 sources)BenzodiazepineStart: 05-08-2023 End: 12-14-8900rlns 1 tablet by mouth twice daily as needed for anxiety clonazePAM (KlonoPIN) 0.5 MG tablet Take 0.5 mg by mouth 2 (two) times a day as needed for anxiety 07/16/2024 Activedoxepin hydrochloride 10 mg oral capsule (3 sources)Tricyclic AntidepressantStart: 11-27-2023 End: 20-68-2315hxkjdqr 10 mg capsule - Activeescitalopram 20 mg oral tablet (1 source)Serotonin Reuptake InhibitorStart: 29-58-9945iylpwirmhryg 20 mg tablet - Activeibuprofen 600 mg oral tablet (2 sources)Nonsteroidal Anti-inflammatory DrugStart: 12-85-6638cjtjxbzde 600 mg tablet PLEASE SEE ATTACHED FOR DETAILED DIRECTIONS - Activeketorolac tromethamine 10 mg oral tablet (1 source)Nonsteroidal Anti-inflammatory Drug, Cyclooxygenase InhibitorStart: 63-24-8958bdiw 1 tablet by mouth every eight hoursKetorolac [...] 750 mg oral tablet (1 source)Muscle RelaxantStart: 80-87-6247fwvb 1 tablet by mouth every six hours Robaxin-750 oral tablet 750 mg = 1 tab(s), Oral, q6hr, # 12 tab(s), Refills(s) 0 Start Date: 01/27/19 Status: OrderedmetroNIDAZOLE 500 mg oral tablet (1 source)Nitroimidazole AntimicrobialStart: 08-01-2024 End: 60-70-1847qvrd 1 tablet by mouth in the morningmetroNIDAZOLE (Flagyl) 500 MG tablet Indications: BV (bacterial vaginosis) Take 1 tablet (500 mg) by mouth in the morning and 1 tablet (500 mg) before bedtime. Do all this for 7 days. Do not drink alcohol while taking this medication. 14 tablet 08/01/2024 08/08/2024 Activenorethindrone acetate 5 mg oral tablet (1 source)Start: 61-71-2595fcwmssagbmosk acetate 5 mg tablet - Activeprenatal pz248-npde-olsmn acid ( 19) 29 mg iron- 1 mg tablet,chewable (4 sources) yw461-zuos-kynqw acid ( 19) 29 mg iron- 1 mg tablet,chewable Chew 1 tablet and swallow in the morning. ActivetiZANidine 2 mg oral tablet (20 sources)Central alpha-2 Adrenergic AgonistStart: 63-70-6079piyl 1 tablet by mouth every eight hours as needed for muscle spasmsStart: 03-06-2025 End: 83-10-4911hsdo 1 tablet by mouth every eight hours as neededTizanidine 2 mg tablet Discontinued 2 MG PO Every 8 hours as needed for muscle spasticity 90 30 0 March 05, 2025 11:00pm June 23, 2025 3:31pm Endometriosis Endometriosis, unspecifiedStart: 09-08-2024 End: 31-55-3376satw 1 tablet by mouth every eight hours as neededTizanidine 2 mg tablet Discontinued 2 MG PO Every 8 hours as needed for muscle spasticity 90 30 0 September 08, 2024 12:00am December 30, 2024 8:28am Endometriosis Endometriosis, unspecifiedStart: 08-84-2881fvxp 1 tablet by mouth every six hours as needed tiZANidine (Zanaflex) 4 MG tablet Take 4 mg by mouth every 6 (six) hours if needed for muscle spasms 01/10/2024 ActiveStart: 88-03-1740shkr 1 tablet by mouth three times daily as neededtizanidine 2 mg tablet TAKE 1 TABLET BY MOUTH THREE TIMES DAILY NEEDED - ActiveStart: 08-03-2023 End: 80-46-7957agen 1 tablet by mouth three times daily as neededTizanidine 4 mg tablet Discontinued 4 MG PO Three times daily as needed October 16, 2023 12:00amSeptember 08, 2024 2:19pmtraZODone hydrochloride 50 mg oral tablet (1 source)Serotonin Reuptake InhibitorStart: 62-74-6051ldlrpmtty 50 mg tablet - ActiveZofran ODT 4 mg Tab-Dis (1 source)Start: 37-24-0537hmvr 1 tablet by mouth every six hoursZofran ODT 4 mg Tab-Dis 4 mg = 1 tab(s), Oral, q6hr, # 10 tab(s), Refills(s) 0, Pharmacy: [facility] Start Date: 09/21/18 Status: Ordered Completed/Discontinued Medications MedicationDrug Class(es)DatesSig (Normalized)Sig (Original)amoxicillin 875 mg / clavulanate 125 mg oral tablet (4 sources)Penicillin-class AntibacterialStart: 09-12-2024 End: 64-74-0997vpof 1 tablet by mouth twice dailyAmoxicillin-Pot Clavulanate 875-125 mg tablet Discontinued 1 TAB PO Twice daily 20 10 0 September 12, 2024 12:00am October 27, 2024 9:24amBlood Glucose Monitoring Suppl (D-Care Glucometer) w/Device kit (20 sources)Start: 04-24-2024 End: 18-68-6568Ovslo Glucose Monitoring Suppl (D-Care Glucometer) w/Device kit Indications: Elevated glucose tolerance test 1 kit Daily Use four times daily to check FSBS. In the morning prior to breakfast & 1 hour after each meal for a total of 4times daily. 1 kit 04/24/2024 08/27/2024 DiscontinuedStart: 04-24-2024 End: 14-31-5218Qdcxe Glucose Monitoring Suppl (D-Care Glucometer) w/Device kit Indications: Elevated glucose tolerance test 1 kit Daily Use four times daily to check FSBS. In the morning prior to breakfast & 1 hour after each meal for a total of 4times daily. 1 kit 04/24/2024 04/24/2025 Activecyclobenzaprine hydrochloride 10 mg oral tablet (20 sources)Muscle RelaxantStart: 04-28-2023 End: 42-30-1582ienxsgwjxupbepo (Flexeril) 10 MG tablet cyclobenzaprine 10 mg tablet - Active 04/28/2023 08/27/2024 Discontinued{21 (Desogestrel 0.15 MG / Ethinyl Estradiol 0.03 MG Oral Tablet) / 7 (Inert Ingredients 1 MG Oral Tablet) } Pack [Enskyce 28 Day] (1 source)Progestin, EstrogenStart: 99-14-1739rmse 1 tablet by mouth once daily Enskyce 0.15 mg-0.03 mg oral tablet 1 tab(s), Oral, Daily, Refill(s) 0 Start Date: 09/30/17 Status: Orderedferrous sulfate (19 sources) End: 33-97-0102ikvi 1 tablet by mouth in the morningFerrous Sulfate (IRON PO) Take 1 tablet by mouth in the morning. 08/27/2024 Discontinuedtake 1 tablet by mouth in the morningFerrous Sulfate (IRON PO) Take 1 tablet by mouth in the morning. Activeisopropyl alcohol 0.7 ml/ml medicated pad (20 sources)Start: 04-24-2024 End: 22-12-0833Girblwh Swabs (Alcohol Prep Pad) 70 % pads Indications: Elevated glucose tolerance test Apply 1 Padtopically Daily Use four times daily to check FSBS. 150 each 3 04/24/2024 08/27/2024 Discontinuedmagnesium lactate 84 mg extended release oral tablet (20 sources) End: 82-64-9195eole 1 tablet by mouth in the morningmagnesium lactate CR (Magtab) 84 MG (7MEQ) ER tablet Take 84 mg by mouth in the morning. 08/27/2024 Discontinuedmagnesium oxide 400 mg oral tablet (20 sources)Start: 12-18-2023 End: 90-74-7134xkkpqealg oxide (Mag-Ox) 400 (240 Mg) MG tablet 12/19/2023 08/27/2024 Discontinuedmeloxicam 7.5 mg oral tablet (15 sources)Nonsteroidal Anti-inflammatory DrugStart: 10-24-2023 End: 05-96-4437jpen 1 tablet by mouth once dailyMeloxicam 7.5 mg tablet Discontinued 7.5 MG PO Daily 30 30 October 26, 2023 2:24pm September 08, 2024 2:20pm Endometriosis Endometriosis, unspecifiedomeprazole 20 mg delayed release oral capsule (20 sources)Proton Pump InhibitorStart: 12-13-2023 End: 86-88-6794bvyk 1 capsule by mouth before mealtimeomeprazole (PriLOSEC) [address] capsule Indications: Heartburn during in first trimester (HHS- HCC) Take 1 capsule (20 mg) by mouth in the morning. Take before meals. Do not crush or chew.. 30 capsule 11 12/13/2023 08/27/2024 Discontinuedondansetron 4 mg disintegrating oral tablet (20 sources)Serotonin-3 Receptor AntagonistStart: 11-30-2023 End: 48-09-3834pyad 1 tablet by mouth every six hours for nauseaondansetron ODT (Zofran-ODT) 4 MG disintegrating tablet Indications: Nausea and vomiting in ([facility] Take 1 tablet (4 mg) by mouth every 6 (six) hours if needed for nausea or vomiting 60 tablet 2 11/30/2023 12/30/2023 ExpiredStart: 81-15-3892ycqd 1 tablet by mouth every eight hours as neededOndansetron 4 MG Tab Dispersible tablet Take 1 tablet by mouth every 8 hours as needed for Nausea / Vomiting. 18 tablet 1 11/02/2023 Activeondansetron (ZOFRAN) 4 mg/5 mL solution Take by mouth once. Activepolysaccharide iron complex 391 mg oral capsule (20 sources)Start: 05-05-2024 End: 49-91-3694xymh 1 capsule by mouth once dailyiron polysaccharides (ProFe) 391.3 (180 Fe) MG capsule Indications: Low iron Take 1 capsule (391.3 mg) by mouth Daily 30 capsule 6 05/05/2024 08/27/2024 DiscontinuedPrenatal Qzqrkloq-Ztv-Hy-FA ( 1 + IRON PO) (20 sources) End: 46-00-2146Yidbyaen Tvwvgwua-Zlq-Va-FA ( 1 + IRON PO) Take by mouth Daily 08/27/2024 DiscontinuedPrenatal Fjcaaoue-Yge-Az-FA ( 1 + IRON PO) Take by mouth Daily Activeprogesterone 200 mg oral capsule (2 sources)Progesterone End: 33-87-3609ddmk 1 capsule by mouth in the morningprogesterone (PROMETRIUM) 200 mg capsule Take 1 capsule (200 mg total) by mouth in the morning. 01/21/2024 Discontinued (Discontinued by another clinician)zolpidem tartrate 10 mg oral tablet (20 sources)gamma-Aminobutyric Acid-ergic AgonistStart: 05-19-2024 End: 42-85-7009nzjexqtv (Ambien) 10 MG tablet Indications: Other insomnia Take 1 tablet (10 mg) by mouth as neededat bedtime for sleep (insomnia) for up to 5 doses 5 tablet 05/19/2024 08/27/2024 Discontinued Problems Active Problems Problem ClassificationProblemDateDocumented DateEpisodic/Chronic Administrative/social admission (2 sources)Patient encounter status; Translations: [Encounter for blood-alcohol and blood-drug test]06-80-1034NqgdqaldNlrolzq disorders (20 sources)Generalized anxiety disorder; Translations: [Generalized anxiety disorder]ChronicAsthma (2 sources)Asthma; Translations: [Unspecified asthma, uncomplicated]10-31-2013 ChronicCoagulation and hemorrhagic disorders (2 sources)Blood coagulation disorder; Translations: [Hemorrhagic condition, unspecified]57-97-8502SlszbeotMbubvwplnnbto and procreative management (4 sources)Sterilization requested; Translations: [Encounter for sterilization] 89-32-9256VbrnkwaiUuxvqbydu of teeth and jaw (4 sources)Dental abscess; Translations: [Periapical abscess without sinus] 21-55-5697JzskvukwOfdtpegqqrjmn (20 sources)Endometriosis (clinical); Translations: [Endometriosis, unspecified] Onset: 09-14-9662FdrrkhrAcuauff on above:Surgical Removal f8Pyfhb 4Esophageal disorders (1 source)Gastro-esophageal reflux disease without esophagitis; Translations: [GERD WITHOUT ESOPHAGITIS]Onset: 37-68-0329YuljbabWyuzvacncaxvm symptoms and ill-defined conditions (1 source)Bladder pain; Translations: [Other symptoms and signs involving the genitourinary system]95-80-0314JvxbgwnuUdmjqisr; including migraine (17 sources)Migraine; Translations: [Migraine, unspecified, not intractable, without status migrainosus]ChronicHemorrhage during ; abruptio placenta; placenta previa (1 source)Placental yakevdajj85-33-7931WivckvtgFjbpasmclftw injury (14 sources)Personal history of traumatic brain injury; Translations: [Traumatic brain injury]EpisodicMalaise and fatigue (6 sources)Fatigue; Translations: [Other fatigue]99-39-3593YjxvqkrrZhelbcocz disorders (4 sources)Dysmenorrhea; Translations: [Dysmenorrhea, unspecified]Onset: 450417-14-9304HkawumpCjje disorders (11 sources)Depressive disorder; Translations: [Depression]65-92-9884Hboachc Comment on above:With manic episodesNutritional deficiencies (2 sources)Serum iron low; Translations: [Iron deficiency]57-39-3747Ekztqomw Other complications of (1 source)Supervision of other high risk pregnancies, unspecified trimester; Translations: [Supervision of other high risk pregnancies, unspecified trimester]Onset: 07-85-4025JsrivydlEetio complications of (1 source)Abnormal ultrasonic finding on screening of mother; Translations: [Abnormal ultrasonic finding on screening of mother] Onset: 41-96-6655IeckxghuJeuoo complications of (1 source)Malformation of placenta, unspecified, second trimester; 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, unspecified, second trimester]Onset: 02-25-2024 EpisodicOther complications of (1 source) with inconclusive viability, other fetus; Translations: [ with inconclusive viability, other fetus]Onset: 93-22-9535AyysghjhHngns complications of (1 source)Supervision of high risk , unspecified, unspecified trimester; Translations: [Supervision of high risk , unspecified, unspecified trimester]Onset: 51-35-9691MtbyumjlHhbfm complications of (1 source)Supervision of other high risk pregnancies, first trimester; Translations: [Supervision of other high risk pregnancies, first trimester] Onset: 42-60-8953UfyqkzgfNeinl complications of (5 sources)Supervision of with other poor reproductive or obstetric history, first trimester; Translations: [ with other poor obstetric history]Onset: 991606-34-6382ItpbwchoVubvt complications of (6 sources)H/O: premature delivery; Translations: [Supervision of other high risk pregnancies, unspecified trimester]92-80-5390VtssbggdIotaq connective tissue disease (1 source)Myalgia of pelvic floor; Translations: [Myalgia, other site]11-02-2023 EpisodicOther connective tissue disease (8 sources)Pain in bilateral legs; Translations: [Pain in right leg]06-05-2024 EpisodicOther endocrine disorders (2 sources)Polycystic ovary syndrome; Translations: [Polycystic ovarian syndrome]93-65-2684TmwjxkzOsose endocrine disorders (2 sources)Disorder of endocrine system; Translations: [Endocrine disorder, unspecified]20-25-4852XpiqmhpiOuzne female genital disorders (4 sources)Unspecified dyspareunia; Translations: [UNSPECIFIED DYSPAREUNIA] Onset: 79-86-8930WeadmlmEfjrf female genital disorders (1 source)Pain in female genitalia on intercourse; Translations: [Unspecified dyspareunia]03-89-8588IrgigycKjoyt female genital disorders (2 sources)Abnormal uterine bleeding; Translations: [Abnormal uterine and vaginal bleeding, unspecified]58-75-2176BfnbvhcMdlyc female genital disorders (6 sources)Vaginal discharge; Translations: [Other specified noninflammatory disorders of vagina]95-36-0439ZvebiqwoOoepi female genital disorders (5 sources)Other specified noninflammatory disorders of vagina; Translations: [Leukorrhea, not specified as infective]Onset: 773909-73-0360OugyaxsuOvjgk nutritional; endocrine; and metabolic disorders (6 sources)History of iron deficiency; Translations: [Personal history of other endocrine, nutritional and metabolic disease]31-88-9075CzhfseopGsrnyrdw codes; unclassified (2 sources)Insomnia; Translations: [Other insomnia]91-39-3963GeaokpkUivrvgnj codes; unclassified (2 sources)Personal history of other complications of , childbirth and the puerperium; Translations: [Personal history of other complications of , childbirth and the puerperium]Onset: 86-77-2099RlcqplooWhaetmol codes; unclassified (1 source)18 weeks gestation of ; Translations: [18 weeks gestation of ]Onset: 29-97-5509KevtogwvDuwtmxid codes; unclassified (2 sources)Gestation period, 32 weeks; Translations: [32 weeks gestation of ]60-19-2115IaydcnilTpbjsvmz codes; unclassified (2 sources)Gestation period, 35 weeks; Translations: [35 weeks gestation of ]83-54-0499CnbptwovWgwvwdmn codes; unclassified (2 sources)H/O: miscarriage; Translations: [Personal history of other complications of , childbirth and the puerperium]79-49-0859Iqkubxlj Residual codes; unclassified (2 sources)Gestation period, 30 weeks; Translations: [30 weeks gestation of ]46-46-2978JaqyfzgdXdkzzcni codes; unclassified (2 sources)Swelling; Translations: [Edema, unspecified]00-30-2373Rlakfgsa Unclassified (1 source)Details of family - zqmpejd09-44-3724Ymyrvulwfypn (1 source) roxnn61-25-8930Sntoawoqcqxb (1 source)hx placenta abruption/ PTDOnset: 01-21-2024 Past or Other Problems Problem ClassificationProblemDateDocumented DateEpisodic/ChronicAbdominal pain (20 sources)Pelvic and perineal pain; Translations: [Pain in pelvis]Onset: 10-28-7102ZynaqnsmXqncdaxchr associated with dizziness or vertigo (20 sources)Dizziness; Translations: [Dizziness and giddiness]Onset: 01-03-2024 80-02-5798MujuwfmhNvcsqdtsyj and other anemia (1 source)Anemia, unspecified; Translations: [ANEMIA UNSPECIFIED]Onset: 64-01-1617QfkrovcuJbrouuyi mellitus without complication (2 sources)Abnormal glucose tolerance test; Translations: [Other abnormal glucose]26-58-1821QylfxvomDmadmtjd or abnormal glucose tolerance complicating ; childbirth; or the puerperium (2 sources)Gestational diabetes mellitus; Translations: [Gestational diabetes mellitus in , unspecified control]93-16-5702ChzhhdaqOspxqvdodwwka and screening for infectious disease (1 source)Encounter for screening for human papillomavirus (HPV); Translations: [ENC SCREENING HUMAN PAPILLOMAVIRUS]Onset: 61-18-0193CdvpzqfvAqsuxf and vomiting (9 sources)Nausea and vomiting; Translations: [Nausea with vomiting, unspecified]Onset: 370200-91-2940UvpwbyqaKtrnw complications of (20 sources)Vomiting of , unspecified; Translations: [Unspecified vomiting of , unspecified as to episode of care or not applicable] Onset: 425980-32-4958MefmhtcrPvpgc complications of (20 sources)Heartburn; Translations: [Other specified related conditions, first trimester]Onset: 626289-39-6580CalqrgzlRfbhw complications of (20 sources)High risk ; Translations: [Supervision of other high risk pregnancies, first trimester]Onset: 042899-73-9450MtgjyuimPqory complications of (20 sources)Abdominal pain in ; Translations: [Other specified related conditions, unspecified trimester]Onset: EpisodicOther complications of (20 sources)Supervision of with other poor reproductive or obstetric history, third trimester; Translations: [ with other poor obstetric history]Onset: 613780-30-9707TvafmqafBsoxc complications of (3 sources) heart echogenicity on obstetric ultrasound scan; Translations: [Abnormal ultrasonic finding on screening of mother]Onset: 02-25-2024 50-92-6457CedfjoymXlzyh complications of (1 source)Anomaly of placenta; 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, unspecified, second trimester]36-69-8127UavgterkBckbj female genital disorders (1 source)Unspecified hypertrophy of vulva; Translations: [UNSPECIFIED HYPERTROPHY OF VULVA]Onset: 57-23-5521EvvsjwaqPpsqm female genital disorders (20 sources)Pain in female pelvis; Translations: [Pelvic pain in female]Onset: 794877-17-3192YqdtoyldIwkwj non-traumatic joint disorders (20 sources)Hip pain; Translations: [Pain in right hip]Onset: 01-03-2024 55-05-3849BktqpldnVunqq non-traumatic joint disorders (12 sources)Pain in right hip joint; Translations: [Pain in right hip]Onset: 301329-76-0399DassmdsvVxoni and delivery including normal (20 sources)First trimester ; Translations: [Encounter for supervision of normal , unspecified, first trimester]Onset: EpisodicOther screening for suspected conditions (not mental disorders or infectious disease) (20 sources)Encounter for screening for malignant neoplasm of cervix; Translations: [Encounter for other screening follow-up]Onset: 50-46-2572BtetxuvwZdofeuat codes; unclassified (4 sources)Other general symptoms and signs; Translations: [OTHER GENERAL SYMPTOMS AND SIGNS]Onset: 16-96-5130QwpbqgsdIbctokfk codes; unclassified (20 sources)History of placental abruption; Translations: [Personal history of other complications of , childbirth and the puerperium]Onset: 023009-52-1317IwuxovzmRfkramaf codes; unclassified (20 sources)Gestation period, 24 weeks; Translations: [24 weeks gestation of ]Onset: 136540-55-1388GapmypifRpqolzdf codes; unclassified (2 sources)Gestation period, 26 weeks; Translations: [26 weeks gestation of ]29-26-7346HmbbxtebEzrporbl codes; unclassified (1 source)Gestation period, 18 weeks; Translations: [18 weeks gestation of ]91-92-8766QitdwxtpElngqhjvbtrb (1 source)PregnancyOnset: 08-20-2013 Resolved: Results Test NameValueInterpretationReference RangeFacilityALL CBC WITH AUTO DIFFon 97-49-2068BQMLFONTO ABSOLUTE AUTO0.1NOMS HealthcareBasophils/100 WBC (Bld)0.9 % 0.2 - 2.0 %NOMS HealthcareEosinophils/100 WBC (Bld)2.1 %0.9 - 7.0 %[facility] HospitalErythrocyte distribution width (RBC) [Ratio]12.6 %11.0 - 15.0 %NOMBarnes-Jewish Saint Peters HospitalHematocrit (Bld) [Volume fraction]37.7 %36.0 - 48.0 %[facility] Hemoglobin (Bld) [Mass/Vol]12.6 g/dL12.0 - 16.0 g/dLNOMosaic Life Care at St. JosephIMMATURE GRANULOCYTES ABS AUTO0.03NOMS HealthcareImmature granulocytes/100 WBC (Bld)0.4 % 0.0 - 0.5 %[facility] HealthcareInterpretation and review of laboratory results AbnormalNOMS HealthcareLYMPHOCYTES ABSOLUTE AUTO1.7[facility] Healthcare Lymphocytes/100 WBC (Bld)22.7 %20.5 - 60.0 %[facility] HospitalMCH (RBC) [Entitic mass]31.7 pg26.7 - 34.[address]NOMosaic [address] Care [address] JosephMCHC (RBC) [Mass/Vol]33.4 g/dL29.9 - 35.2 g/dLNOMS HealthcareMCV (RBC) [Entitic vol]94.7 fL81.0 - 99.0 fLNOMS HealthcareMONOCYTES ABSOLUTE AUTO0.6NOMS HealthcareMonocytes/100 WBC (Bld)8.2 % 1.7 - 12.0 %NOMS HealthcareNEUTROPHILS ABSOLUTE AUTO4.9[facility] Neutrophils/100 WBC (Bld)65.7 %43.0 - 75.0 %NOMS HealthcarePlatelet mean volume (Bld) [Entitic vol]9.2 fLLow9.5 - 13.5 fLNOMS HealthcareTBH EO #0.2NOMS HealthcareTBH [id number] HealthcareTBH RBC3.98LowNOMS HealthcareTBH WBC7.5NOMS HealthcareCLINISYNCNOMS HealthcareBacteria Vaginosis, NAAon 46-15-0286Fbnswnxfh VaginaeLow - 0Normal.The [facility] Physician GroupComment on above:Result Comment: This test was developed and its performance characteristics determined by [facility]. It has not been cleared or approved by the Food and Drug Administration.Performed By: #### VAGINOSIS, HUMA,NA #### [facility] ,QFYQ5Fia - 0Normal.The [facility] Physician GroupComment on above:Result Comment: This test was developed and its performance characteristics determined by [facility]. It has not been cleared or approved by the Food and Drug Administration.Performed By: #### VAGINOSIS, HUMA,NA #### [facility] ,MegasphaeraLow - 0Normal.The [facility] Physician GroupComment on above:Result Comment: This test [...] VAGINOSIS, HUMA,NA #### [facility] ,Huma Albicans+Glabrata, NAAon 75-25-8119Ffqnxbz Albicans, NAANegativeNormal NegativeThe [facility], [facility] Physician GroupComment on above:Result Comment: This test was developed and its performance characteristics determined by [facility]. It has not been cleared or approved by the Food and Drug Administration.Performed By: #### VAGINOSIS, HUMA,NA #### [facility] ,Huma Glabrata, NAANegativeNormalNegativeThe [facility] Physician GroupComment on above:Result Comment: This test was developed and its performance characteristics determined by [facility]. It has not been cleared or approved by the Food and Drug Administration. Performed at: =[address] [id number] Enrollment Counselor: Monserrat Velasquez MD, Phone: [phone] PERFORMED BY: [place] [address] [place] [address] PATHOLOGIST ADVERTISING SALES ASSOCIATE JOANIE MATHIAS M.D.Performed By: #### VAGINOSIS, HUMA,NA #### [facility] ,No Panel InformationOrdered By: Lucila Arnett on 74-72-3212Tnxqyfh albicans (ABBY)NegativeNegativeDoctors HospitalComment on above: This test was developed and its performance characteristicsdetermined by [facility]. It has not been cleared orapproved by the Food and Drug Administration. Huma glabrata (ABBY)NegativeNegativeDoctors HospitalComment on above:This test was developed and its performance characteristicsdetermined by [facility]. It has not been cleared orapproved by the Food and Drug Administration.Performed at: =[facility] [address] [id number] Director: Monserrat Velasquez MD, Phone: [phone] fluid Atopobium vaginae DNA detection by probe and target amplification methoOrdered By: Lucila Arnett on 09-08-2024. vaginae DNA ABBY+probe Ql (Vag fld) Vaginal fluid Atopobium vaginae DNA detection by probe and target amplification metho.Doctors HospitalComment on above:This test was developed and its performance characteristicsdetermined by [facility]. It has not been cl eared orapproved by the Food and Drug Administration.Vaginal fluid Megasphaera species type 1 DNA detection by probe and target amplificatOrdered By: Lucila Arnett on 70-39-1121Fetmonougyj sp type 1 DNA ABBY+probe Ql (Vag fld)Vaginal fluid Megasphaera species type 1 DNA detection by probe and target amplificat. Doctors HospitalComment on above:This test was developed and its performance characteristicsdetermined by [facility]. It has not been cleared orapproved by [...] and t Ordered By: Lucila Arnett on 76-60-1642Fdmrecmqw vaginosis associated bacterium 2 DNA ABBY+probe Ql (Vag fld)Vaginal fluid bacterial vaginosis associated bacterium 2 DNA detection by probe and t.Doctors HospitalComment on above:This test was developed and its performance characteristicsdetermined by [facility]. It has not been cleared orapproved by the Food and Drug Administration.ALL CBC WITH AUTO DIFFon 20-33-0654SDFQXDZUD ABSOLUTE AUTO0.1NOMS HealthcareBasophils/100 WBC (Bld)1.2 %0.2 - 2.0 %NOMS HealthcareEosinophils/100 WBC (Bld)2.8 %0.9 - 7.0 %NOMS HealthcareErythrocyte distribution width (RBC) [Ratio]14.1 %11.0 - 15.0 %NOMS HealthcareHematocrit (Bld) [Volume fraction]39.2 %36.0 - 48.0 %NOMS HealthcareHemoglobin (Bld) [Mass/Vol]12.3 g/dL12.0 - 16.0 g/dLNOMS HealthcareIMMATURE GRANULOCYTES ABS AUTO 0.02NOMS HealthcareImmature granulocytes/100 WBC (Bld)0.4 %0.0 - 0.5 %[facility] HospitalInterpretation and review of laboratory resultsAbnormalHawthorn Children's Psychiatric Hospital LYMPHOCYTES ABSOLUTE AUTO1.6NOMosaic Life Care at St. JosephLymphocytes/100 WBC (Bld)31.5 %20.5 - 60.0 %[facility] HospitalH (RBC) [Entitic mass]28.3 pg26.7 - 34.0 pgRay County Memorial HospitalHC (RBC) [Mass/Vol]31.4 g/dL29.9 - 35.2 g/dLRay County Memorial HospitalV (RBC) [Entitic vol]90.1 fL81.0 - 99.0 fLHawthorn Children's Psychiatric HospitalMONOCYTES ABSOLUTE AUTO0.6NOAK HealthcareMonocytes/100 WBC (Bld)12 %1.7 - 12.0 %[facility] HospitalNEUTROPHILS ABSOLUTE AUTO2.6NOMosaic Life Care at St. JosephNeutrophils/100 WBC (Bld)52.1 %43.0 - 75.0 %[facility]iatric HospitalPlatelet mean volume (Bld) [Entitic vol]9.4 fLLow9.5 - 13.5 fLHawthorn Children's Psychiatric HospitalTBH EO #0.1NOMS [facility] HospitalTB [id number] County Memorial Hospital RBC4.35NOMosaic Life Care at St. JosephTB [id number] Children's Psychiatric HospitalCLINISYNCNOMS HealthcareBasophils Auto (Bld) [#/Vol]on 08-09-4534Pkjbdfqrl (Bld) [#/Vol]Automated basophil count0.0-0.1 Doctors HospitalBasophils/100 WBC Auto (Bld)on 08-29-2024 Basophils/100 WBC (Bld)Automated basophil %0.2-2.0Doctors HospitalEosinophils/100 WBC Auto (Bld)on 54-43-9925Crripveohdk/100 WBC (Bld) Automated eosinophil %0.9-7.0Doctors HospitalErythrocyte distribution width Auto (RBC) [Ratio]on 32-05-1019Rhrsdhtgxqk distribution width (RBC) [Ratio]Erythrocyte distribution width [Ratio] by Automated count11.0-15.0 Doctors HospitalEstimated glomerular filtration rate (GFR) non- Americanon 58-21-2922HOD/1.73 sq M.predicted among non-blacks MDRD (S/P/Bld) [Vol rate/Area]Estimated glomerular filtration rate (GFR) non->=60 mL/min/1.73m 2FSumma Health Akron CampusHematocrit Auto (Bld) [Volume fraction]on 05-05-6486Efjdxwhcez (Bld) [Volume fraction]Hematocrit [Volume Fraction] of Blood by Automated count36.0-48.0Doctors HospitalHemoglobin [Mass/volume] in Bloodon 07-98-9055Bzfctuhbpo (Bld) [Mass/Vol] Hemoglobin [Mass/volume] in Blood12.0-16.0[facility] Laboratory - Chemistry and Chemistry - challengeon 13-62-0560SEO [Catalytic activity/Vol]19 U/Y73-13SilupqqywDoctors HospitalCreatinine [Mass/Vol] 0.88 mg/dL0.55-1.02Doctors HospitalFree T4 [Mass/Vol]0.91 ng/dL 0.76-1.46Doctors HospitalGFR/1.73 sq M.predicted MDRD (S/P/Bld) [Vol rate/Area]mL/min/{1.73_m2}>=60 mL/min/1.73m 2FSumma Health Akron CampusTSH Qn0.997 m[IU]/L0.358-3.740Doctors HospitalUrea nitrogen [Mass/Vol]7.0 mg/dL7.0-18.0Doctors HospitalLaboratory - Hematology and Cell countson 92-16-4302Xikpqzef granulocytes/100 WBC (Bld)0.4 %0.0-0.5FSumma Health Akron CampusLeukocytes [#/volume] corrected for nucleated erythrocytes in Blood by Automated counon 27-99-3904WDP corrected for nucl RBC Auto (Bld) [#/Vol]Leukocytes [#/volume] corrected for nucleated erythrocytes in Blood by Automated coun4.0-11.0[facility] Lymphocytes Auto (Bld) [#/Vol]on 01-87-9234Hnnvoccfavn (Bld) [#/Vol]Lymphocytes [#/volume] in Blood by Automated count1.2-3.8[facility] Lymphocytes/100 WBC Auto (Bld)on 03-49-8020Tkkrbyijutz/100 WBC (Bld) Lymphocytes/100 leukocytes in Blood by Automated count20.5-60.0[facility] HospitalH Auto (RBC) [Entitic mass]on 70-12-4057ARB (RBC) [Entitic mass]MCH [Entitic mass] by Automated count26.7-34.0Doctors HospitalMCHC Auto (RBC) [Mass/Vol]on 57-18-3277LXZQ (RBC) [Mass/Vol]MCHC [Mass/volume] by Automated count29.9-35.2FDetwiler Memorial HospitalV Auto (RBC) [Entitic vol]on 37-08-5584PUG (RBC) [Entitic vol]MCV [Entitic volume] by Automated count81.0-99.0Doctors HospitalMonocytes Auto (Bld) [#/Vol]on 15-66-1398Yfjtxxqtt (Bld) [#/Vol]Automated blood monocyte count0.3-0.8 Doctors HospitalMonocytes/100 WBC Auto (Bld)on 08-29-2024 Monocytes/100 WBC (Bld)Automated monocyte %1.7-12.0Doctors HospitalNeutrophils Auto (Bld) [#/Vol]on 49-31-8695Brfucdfouib (Bld) [#/Vol] Neutrophils [#/volume] in Blood by Automated count1.4-6.5FSumma Health Akron CampusNeutrophils/100 WBC Auto (Bld)on 99-54-1607Fefgifsliyv/100 WBC (Bld)Automated neutrophil %43.0-75.0Doctors HospitalNo Panel Informationon 01-76-5271Xechvbqkbcw # (Auto)0.1 10 3/uL0.0-0.7FSumma Health Akron CampusImmature Granulocyte # (Auto)0.02 10 3/uL0.00-0.03Doctors HospitalPlatelet mean volume Auto (Bld) [Entitic vol]on 06-46-5440Xivmpklx mean volume (Bld) [Entitic vol]Platelet mean volume [Entitic volume] in Blood by Automated countLow9.5-13.5FSumma Health [facility] Campus Platelets Auto (Bld) [#/Vol]on 73-98-9338Zetqqygsx (Bld) [#/Vol]Platelets [#/volume] in Blood by Automated pbpih220-167XbzidshvrDoctors Hospital RBC Auto (Bld) [#/Vol]on 80-74-3422OGH (Bld) [#/Vol]Erythrocytes [#/volume] in Blood by Automated count4.20-5.40Doctors HospitalALL CBC WITH AUTO DIFFon 20-93-6496ICOTPOHGF ABSOLUTE AUTO0.1NOMS HealthcareBasophils/100 WBC (Bld)1.2 %0.2 - 2.0 %NOMS HealthcareEosinophils/100 WBC (Bld)4.3 %0.9 - 7.0 % [facility] HospitalErythrocyte distribution width (RBC) [Ratio]13.4 %11.0 - 15.0 % [facility] HospitalHematocrit (Bld) [Volume fraction]39 %36.0 - 48.0 %[facility] HospitalHemoglobin (Bld) [Mass/Vol]12.4 g/dL12.0 - 16.0 g/dLHawthorn Children's Psychiatric Hospital IMMATURE GRANULOCYTES ABS AUTO0.02NOMosaic Life Care at St. JosephImmature granulocytes/100 WBC (Bld)0.3 %0.0 - 0.5 %[facility] HospitalInterpretation and review of laboratory resultsAbnormalNOMosaic Life Care at St. JosephLYMPHOCYTES ABSOLUTE AUTO1.9NOAK Healthcare Lymphocytes/100 WBC (Bld)28.8 %20.5 - 60.0 %[facility] HospitalH (RBC) [Entitic mass]29.1 pg26.7 - 34.0 pgNOSaint Mary's Hospital of Blue SpringsHC (RBC) [Mass/Vol]31.8 g/dL29.9 - 35.2 g/dLHawthorn Children's Psychiatric HospitalMCV (RBC) [Entitic vol]91.5 fL81.0 - 99.[address]OM[address] JosephMONOCYTES ABSOLUTE AUTO0.8NOMS HealthcareMonocytes/100 WBC (Bld)11.5 % 1.7 - 12.0 %NOM HealthcareNEUTROPHILS ABSOLUTE AUTO3.5NOMS [facility] Neutrophils/100 WBC (Bld)53.9 %43.0 - 75.0 %NOMS HealthcarePlatelet mean volume (Bld) [Entitic vol]9.1 fLLow9.5 - 13.5 fLNOMS HealthcareTBH EO #0.3NOMS HealthcareTBH [id number] HealthcareTBH RBC4.26NOMS HealthcareTBH WBC6.5NOMS HealthcareCLINISYNCNOMS HealthcareBasophils Auto (Bld) [#/Vol]on 08-01-2024 Basophils (Bld) [#/Vol]Automated basophil count0.0-0.1FSumma Health Akron CampusBasophils/100 WBC Auto (Bld)on 29-82-6118Yobprwcsg/100 WBC (Bld)Automated basophil %0.2-2.0Doctors HospitalEosinophils/100 WBC Auto (Bld)on 93-66-5609Aeoddkswynj/100 WBC (Bld)Automated eosinophil %0.9-7.0 Doctors HospitalErythrocyte distribution width Auto (RBC) [Ratio]on 15-92-1467Ncoybtcgagd distribution width (RBC) [Ratio]Erythrocyte distribution width [Ratio] by Automated count11.0-15.0Doctors HospitalHematocrit Auto (Bld) [Volume fraction]on 33-57-1723Ecyjrvypqm (Bld) [Volume fraction]Hematocrit [Volume Fraction] of Blood by Automated count 36.0-48.0Doctors HospitalHemoglobin [Mass/volume] in Bloodon 80-88-6606Cjefhmdsyy (Bld) [Mass/Vol]Hemoglobin [Mass/volume] in Blood12.0-16.0 [facility] HospitalLaboratory - Hematology and Cell countson 46-02-3426Cmyxxhlv granulocytes/100 WBC (Bld)0.3 %0.0-0.5FSumma Health Akron CampusLeukocytes [#/volume] corrected for nucleated erythrocytes in Blood by Automated counon 87-31-2395YSK corrected for nucl RBC Auto (Bld) [#/Vol]Leukocytes [#/volume] corrected for nucleated erythrocytes in Blood by Automated coun4.0-11.0Doctors HospitalLymphocytes Auto (Bld) [#/Vol]on 75-72-6475Izssyapnqxy (Bld) [#/Vol]Lymphocytes [#/volume] in Blood by Automated count1.2-3.8Doctors HospitalLymphocytes/100 WBC Auto (Bld)on 81-46-6245Hwltnznoiur/100 WBC (Bld)Lymphocytes/100 leukocytes in Blood by Automated count20.5-60.0[facility] HospitalH Auto (RBC) [Entitic mass]on 71-61-9695PBH (RBC) [Entitic mass]MCH [Entitic mass] by Automated count26.7-34.0Doctors HospitalMCHC Auto (RBC) [Mass/Vol]on 66-96-1886EGZX (RBC) [Mass/Vol]MCHC [Mass/volume] by Automated count29.9-35.2FSumma Health Akron CampusMCV Auto (RBC) [Entitic vol]on 49-96-3063ZIY (RBC) [Entitic vol]MCV [Entitic volume] by Automated count 81.0-99.0Doctors HospitalMonocytes Auto (Bld) [#/Vol]on 67-78-2393Qulkqcwlh (Bld) [#/Vol]Automated blood monocyte count0.3-0.8Doctors HospitalMonocytes/100 WBC Auto (Bld)on 92-46-1161Kgmxkcjns/100 WBC (Bld)Automated monocyte %1.7-12.0[facility] Neutrophils Auto (Bld) [#/Vol]on 99-92-2401Sdwezvxzbhf (Bld) [#/Vol]Neutrophils [#/volume] in Blood by Automated count1.4-6.5FSumma Health [facility] Campus Neutrophils/100 WBC Auto (Bld)on 05-45-4959Jbtgfbbtfev/100 WBC (Bld)Automated neutrophil %43.0-75.0Doctors HospitalNo Panel Informationon 04-40-9088Cezvmnybrix # (Auto)0.3 10 3/uL0.0-0.7FSumma Health Akron CampusImmature Granulocyte # (Auto)0.02 10 3/uL0.00-0.03[facility] Medical CenterPlatelet mean volume Auto (Bld) [Entitic vol]on 82-92-4023Lvhpwcrn mean volume (Bld) [Entitic vol]Platelet mean volume [Entitic volume] in Blood by Automated countLow9.5-13.5FSumma Health Akron CampusPlatelets Auto (Bld) [#/Vol]on 97-18-3053Emxrhxvpg (Bld) [#/Vol]Platelets [#/volume] in Blood by Automated fjidz970-549ZiyymurxkDoctors HospitalRBC Auto (Bld) [#/Vol]on 02-01-0989XFW (Bld) [#/Vol]Erythrocytes [#/volume] in Blood by Automated count 4.20-5.40Doctors HospitalUS PELVIS TRANSVAGINALon 60-29-6522[place] [address] Ultrasound Report Signed Patient: COLTON MEDRANO MR#: [id number] : 1995 Acct:[id number] Age/Sex: 28 / F ADM Date: 08/01/24 Loc: US Attending Dr: Moi Rueda D.O. Ordering Physician: Moi Rueda D.O. Date of Service: 08/01/24 Procedure(s): US pelvis transvaginal Accession Number(s): [id number] cc: Moi Rueda D.O.; LUCILA ARNETT [place] [address] Patient Name: COLTON MEDRANO MRN: [id number] date: 1995 Sex: F Assigned Patient Location: US Current Patient Location: US Accession/Order Number: [id number] Exam Date: 08/01/2024 11:32 Report Date: 08/01/2024 [...] Signed By: 08/01/24 1548 DD/ 1545 TD/TT: [employer]argo [employer] Inspector:TBHRadiology, Radiologist, - 08/01/2024 [place] [address] Ultrasound Report Signed Patient: COLTON MEDRANO MR#: [id number] : 1995 Acct:[id number] Age/Sex: 28 / F ADM Date: 08/01/24 Loc: US Attending Dr: Moi Rueda D.O. Ordering Physician: Moi Rueda D.O. Date of Service: 08/01/24 Procedure(s): US pelvis transvaginal Accession Number(s): [id number] cc: Moi Rueda D.O.; LUCILA ARNETT The [address] [address] Patient Name: COLTON MEDRANO MRN: [id number] date: 1995 Sex: F Assigned Patient Location: US Current Patient Location: US Accession/Order Number: [id number] Exam Date: 08/01/2024 11:32 Report Date: 08/01/2024 [...] Espitia M.D. Signed By: 08/01/24 1548 DD/ 154 TD/TT: [employer]argo And [employer] Inspector: CULLEN [facility] HospitalRadiology Study observation (narrative)[facility] HospitalUS PELVIS TRANSVAGINALOrdered By: Radiologist Radiology on 80-36-2950ATNAHawthorn Children's Psychiatric Hospital Work Phone: Urinalysis macro (dipstick) panel (U)on 07-30-2024 Bilirubin, UANegativeNegative - 4(70) +++ mg/dLNOMS HealthcareBlood, UAPositive Negative - 50 Jt/mcLNOAK HealthcareClarity, UAClearNOAK HealthcareColor, UA YellowNOMS HealthcareGlucose, UANegativeNegative - 2000(110) ++++ mg/dLNOAK HealthcareInterpretation and review of laboratory resultsAbnormalNOMosaic [facility] St[facility] Ketones, UANegativeNegative - 160(16) ++++ mg/dLNOAK HealthcareLeukocytes, UA NegativeNegative - 500+++ [place]/mcLNOAK HealthcareNitrite, UANegativeNegative - PositiveNOAK HealthcarepH, UA5.55 - 9NOMS HealthcareProtein, UANegativeNegative - 2000(20) ++++ mg/dLNOAK HealthcareSpec Grav, UA1.021 - 1.03NO[facility] Healthcare Urobilinogen, UA1.00.2 - 12 mg/dLNOAK HealthcareNOMS HealthcareALL CBC WITH AUTO DIFFon 00-60-6118JTTQTLXZU ABSOLUTE AUTO0.1NOMS HealthcareBasophils/100 WBC (Bld)0.4 %0.2 - 2.0 %NOMS HealthcareEosinophils/100 WBC (Bld)1.7 %0.9 - 7.0 % [facility] HospitalErythrocyte distribution width (RBC) [Ratio]12.5 %11.0 - 15.0 % [facility] HospitalHematocrit (Bld) [Volume fraction]25.5 %Low36.0 - 48.0 %[facility] HospitalHemoglobin (Bld) [Mass/Vol]8.4 g/dLLow12.0 - 16.0 g/dLHawthorn Children's Psychiatric Hospital IMMATURE GRANULOCYTES ABS AUTO0.26HighHawthorn Children's Psychiatric HospitalImmature granulocytes/100 WBC (Bld)2.1 %High0.0 - 0.5 %[facility] HospitalInterpretation and review of laboratory resultsAbnormalHawthorn Children's Psychiatric HospitalLYMPHOCYTES ABSOLUTE AUTO2.4NOMosaic Life Care at St. JosephLymphocytes/100 WBC (Bld)19.5 %Low20.5 - 60.0 %[facility] HospitalH (RBC) [Entitic mass]30 pg26.7 - 34.0 pgRay County Memorial HospitalHC (RBC) [Mass/Vol]32.9 g/dL29.9 - 35.2 g/dLRay County Memorial HospitalV (RBC) [Entitic vol]91.1 fL81.0 - 99.0 fL [facility] HospitalMONOCYTES ABSOLUTE AUTO1.2HighHawthorn Children's Psychiatric HospitalMonocytes/100 WBC (Bld)9.3 %1.7 - 12.0 %[facility] HospitalNEUTROPHILS ABSOLUTE AUTO8.4HighNOMosaic Life Care at St. JosephNeutrophils/100 WBC (Bld)67 %43.0 - 75.0 %[facility]iatric HospitalPlatelet mean volume (Bld) [Entitic vol]9.3 fLLow9.5 - 13.5 fLHawthorn Children's Psychiatric HospitalTB EO #0.2NOMS [facility] HospitalTB [id number] County Memorial Hospital RBC2.8LowNOBates County Memorial Hospital WBC12.5High [facility] HospitalCLINISYNCNOMS HealthcareBasophils Auto (Bld) [#/Vol]on 07-07-2024 Basophils (Bld) [#/Vol]Automated basophil count0.0-0.1FSumma Health Akron CampusBasophils/100 WBC Auto (Bld)on 07-36-2088Pfedseive/100 WBC (Bld)Automated basophil %0.2-2.0Doctors HospitalEosinophils/100 WBC Auto (Bld)on 84-87-9030Lcvuhvcakbq/100 WBC (Bld)Automated eosinophil %0.9-7.0 Doctors HospitalErythrocyte distribution width Auto (RBC) [Ratio]on 44-10-8108Ajdeggebzmv distribution width (RBC) [Ratio]Erythrocyte distribution width [Ratio] by Automated count11.0-15.0Doctors HospitalHematocrit Auto (Bld) [Volume fraction]on 45-00-2591Axelxjocid (Bld) [Volume fraction]Hematocrit [Volume Fraction] of Blood by Automated countLow 36.0-48.0Doctors HospitalHemoglobin [Mass/volume] in Bloodon 70-59-1656Uyakqymxfx (Bld) [Mass/Vol]Hemoglobin [Mass/volume] in BloodLow 12.0-16.0Doctors HospitalLaboratory - Hematology and Cell countson 65-66-6876Adoqsimu granulocytes/100 WBC (Bld)2.1 %High0.0-0.5FSumma Health Akron CampusLeukocytes [#/volume] corrected for nucleated erythrocytes in Blood by Automated counon 59-51-4453HFK corrected for nucl RBC Auto (Bld) [#/Vol]Leukocytes [#/volume] corrected for nucleated erythrocytes in Blood by Automated counHigh4.0-11.0Doctors HospitalLymphocytes Auto (Bld) [#/Vol]on 34-73-4708Oansufiagac (Bld) [#/Vol]Lymphocytes [#/volume] in Blood by Automated count1.2-3.8[facility] Lymphocytes/100 WBC Auto (Bld)on 66-68-8332Yzibwyhlksl/100 WBC (Bld) Lymphocytes/100 leukocytes in Blood by Automated qhzbaKsl18.5-60.0[facility] HospitalH Auto (RBC) [Entitic mass]on 50-02-3088HRI (RBC) [Entitic mass]MCH [Entitic mass] by Automated count26.7-34.0Doctors HospitalMCHC Auto (RBC) [Mass/Vol]on 55-67-3799FLTS (RBC) [Mass/Vol]MCHC [Mass/volume] by Automated count29.9-35.2FSumma Health Akron CampusMCV Auto (RBC) [Entitic vol]on 58-51-2645RJL (RBC) [Entitic vol]MCV [Entitic volume] by Automated count81.0-99.0Doctors HospitalMonocytes Auto (Bld) [#/Vol]on 81-23-4153Mtpmqkqpk (Bld) [#/Vol]Automated blood monocyte countHigh 0.3-0.8Doctors HospitalMonocytes/100 WBC Auto (Bld)on 98-95-7921Neonvhxpx/100 WBC (Bld)Automated monocyte %1.7-12.0Doctors HospitalNeutrophils Auto (Bld) [#/Vol]on 08-60-9640Umenitosqib (Bld) [#/Vol]Neutrophils [#/volume] in Blood by Automated countHigh1.4-6.5FSumma Health Akron CampusNeutrophils/100 WBC Auto (Bld)on 07-07-2024 Neutrophils/100 WBC (Bld)Automated neutrophil %43.0-75.0Doctors HospitalNo Panel Informationon 95-44-8351Hmocohsrzex # (Auto)0.2 10 3/uL 0.0-0.7FSumma Health Akron CampusImmature Granulocyte # (Auto)0.26 10 3/uLHigh0.00-0.03Doctors HospitalPlatelet mean volume Auto (Bld) [Entitic vol]on 88-52-9542Fbnlvgyx mean volume (Bld) [Entitic vol]Platelet mean volume [Entitic volume] in Blood by Automated countLow9.5-13.5FSumma Health Akron CampusPlatelets Auto (Bld) [#/Vol]on 80-43-3091Iiuyzagmx (Bld) [#/Vol]Platelets [#/volume] in Blood by Automated -916JvivqipifDoctors HospitalRBC Auto (Bld) [#/Vol]on 82-20-8395ANU (Bld) [#/Vol]Erythrocytes [#/volume] in Blood by Automated countLow4.20-5.40Doctors HospitalBuprenorphine [Presence] in Urineon 97-52-4320Qjbknqgwnblyl Ql (U) Buprenorphine [Presence] in UrineNEGATIVEDoctors Hospital Comment on above:DRUG CLASS TEST SYSTEM CUT-OFF CONCENTRATIONS ARE ASFOLLOWS:AMP (Amphetamine): 500 ng/mLBAR (Barbiturates): 200 ng/mLBZO (Benzodiazepines): 150 ng/mLBUP (Buprenorphine): 10 ng/mLCOC (Cocaine): 150 ng/mLmAMP (Methamphetamine): 500 ng/mLMTD (Methadone): 200 ng/mLOPI (Opiates): 100 ng/mLOXY (Oxycodone): 100 ng/mLPCP (Phencyclidine): 25 ng/mLTHC (Cannabinoids): 50 ng/mLTCA (Trycyclic Antidepressants): 300 ng/mLErythrocyte distribution width Auto (RBC) [Ratio]on [id number] distribution width (RBC) [Ratio] Erythrocyte distribution width [Ratio] by Automated count11.0-15.0[facility] CBC WITH PLATELET NO DIFFERENTIALon 07-06-2024 Erythrocyte distribution width (RBC) [Ratio]12.5 %11.0 - 15.0 %[facility] Hematocrit (Bld) [Volume fraction]30.2 %Low36.0 - 48.0 %[facility] Hemoglobin (Bld) [Mass/Vol]10.1 g/dLLow12.0 - 16.0 g/dLHawthorn Children's Psychiatric Hospital Interpretation and review of laboratory resultsAbnormalMercy Hospital St. Louis (RBC) [Entitic mass]30.2 pg26.7 - 34.0 pgRay County Memorial HospitalHC (RBC) [Mass/Vol]33.4 g/dL 29.9 - 35.2 g/dLRay County Memorial HospitalV (RBC) [Entitic vol]90.4 fL81.0 - 99.0 fLHawthorn Children's Psychiatric HospitalPlatelet mean volume (Bld) [Entitic vol]9.1 fLLow9.5 - 13.5 fLChildren's Mercy Northland [id number] County [facility] Hospital RBC3.34LowChildren's Mercy Northland WBC8.6[facility] Psychiatric HospitalCLINISYNCNOMS HealthcareHematocrit Auto (Bld) [Volume fraction]on 68-26-0726Crovpfbram (Bld) [Volume fraction]Hematocrit [Volume Fraction] of Blood by Automated sxhrvOlw17.0-48.0Doctors HospitalHemoglobin [Mass/volume] in Bloodon 21-66-1052Jubxrnrsxh (Bld) [Mass/Vol]Hemoglobin [Mass/volume] in ZmgqvTvx52.0-16.0Doctors HospitalLaboratory - Drug toxicologyon 61-32-9615Iaqilpdlgqqs Ql (U)NegativeNEGMercy Health Fairfield HospitalBenzodiazepines Ql (U)NegativeNEGMercy Health Fairfield HospitalCocaine Ql (U)NegativeNEGMercy Health Fairfield Hospital Opiates Ql (U)NegativeNEGMercy Health Fairfield HospitalPhencyclidine Ql (U)NegativeNEGMercy Health Fairfield HospitalLeukocytes [#/volume] corrected for nucleated erythrocytes in Blood by Automated counon 56-57-4444ZQI corrected for nucl RBC Auto (Bld) [#/Vol]Leukocytes [#/volume] corrected for nucleated erythrocytes in Blood by Automated coun4.0-11.0Doctors HospitalMCH Auto (RBC) [Entitic mass]on 39-39-6348MKP (RBC) [Entitic mass] MCH [Entitic mass] by Automated count26.7-34.0[facility] MCHC Auto (RBC) [Mass/Vol]on 56-95-9292ZFDI (RBC) [Mass/Vol]MCHC [Mass/volume] by Automated count29.9-35.2FSumma Health Akron CampusMCV Auto (RBC) [Entitic vol]on 52-38-9810DJR (RBC) [Entitic vol]MCV [Entitic volume] by Automated count81.0-99.0Doctors HospitalMethadone [Presence] in Urine by Screen methodon 52-57-6451Cwsqkqewn Screen Ql (U)Methadone [Presence] in Urine by Screen methodNEGATIVEDoctors HospitalNo Panel Informationon 78-65-0921Qeelx Barbiturates ScreenNegativeNEGMercy Health Fairfield HospitalUrine Marijuana (THC) ScreenNegativeNEGMercy Health Fairfield HospitalUrine Methamphetamines ScreenNegativeNEGMercy Health Fairfield HospitalPlatelet mean volume Auto (Bld) [Entitic vol]on 46-64-3521Kryaypzn mean volume (Bld) [Entitic vol]Platelet mean volume [Entitic volume] in Blood by Automated countLow9.5-13.5FSumma Health Akron Campus Platelets Auto (Bld) [#/Vol]on 11-44-9840Qssazkwdj (Bld) [#/Vol]Platelets [#/volume] in Blood by Automated ubexx533-939ImmnnohtmDoctors Hospital RBC Auto (Bld) [#/Vol]on 29-68-0585WVA (Bld) [#/Vol]Erythrocytes [#/volume] in Blood by Automated countLow4.20-5.40Doctors HospitalTBH DRUG SCREEN RAPID (URINE)on 32-18-6414UQXESWKFJNT SCREEN URINENegativeNEGATIVENOMS HealthcareBARBITURATES SCREEN URINENegativeNEGATIVENOMS Healthcare BENZODIAZEPINES [...] ANTIDEPRESSANT URINENegativeNEGATIVENOMS HealthcareCLINISYNCNOMS HealthcareUrine tricyclic antidepressant measurementon 89-75-7520Yzyjwavuv antidepressants (U) [Mass/Vol]Urine tricyclic antidepressant measurementNEGATIVE Doctors HospitaloxyCODONE+oxyMORphone [Presence] in Urine by Screen methodon 49-48-8872frnZHULXV+oxyMORphone Screen Ql (U) oxyCODONE+oxyMORphone [Presence] in Urine by Screen methodNEGATIVEDoctors HospitalUS OB BPP W NON-STRESSon 09-84-9498Api[place] [address] Ultrasound Report Signed Patient: COLTON MEDRANO MR#: [id number] : 1995 Acct:[id number] Age/Sex: 28 / F ADM Date: 07/03/24 Loc: US Attending Dr: Moi Rueda D.O. Ordering Physician: Moi Rueda D.O. Date of Service: 07/03/24 Procedure(s): US OB BPP w non-stress Accession Number(s): [id number] cc: Moi Rueda D.O.; LUCILA ARNETT [place] [address] Patient Name: COLTON MEDRANO MRN: [id number]:[id number] date: 1995 Sex: F Assigned Patient Location: [facility] Current Patient Location: Accession/Order Number: [id number] Exam Date: 07/03/2024 10:55 Report Date: 07/04/2024 [...] Dictated By: Isiah Saxena M.D. Signed By: 07/04/24 0416 DD/ 3 TD/TT: [employer] Inspector:TERRIadiologluis fernando, Radiologist, - 07/04/2024 [place] [address] Ultrasound Report Signed Patient: COLTON MEDRANO MR#: [id number] : 1995 Acct:[id number] Age/Sex: 28 / F ADM Date: 07/03/24 Loc: US Attending Dr: Moi Rueda D.O. Ordering Physician: Moi Rueda D.O. Date of Service: 07/03/24 Procedure(s): US OB BPP w non-stress Accession Number(s): [id number] cc: Moi Rueda D.O.; LUCILA ARNETT [place] [phone] Patient Name: COLTON MEDRANO MRN: [facility]:[id number] date: 1995 Sex: F Assigned Patient Location: [facility] Current Patient Location: US Accession/Order Number: [id number] Exam Date: 07/03/2024 10:55 Report Date: 07/04/2024 [...] Dictated By: Isiah Saxena M.D. Signed By: 07/04/246 DD/ 3 TD/TT: Cargo And [employer] Inspector: [facility] HealthcareRadiology Study observation (narrative)NOMS HealthcareUS OB BPP W NON-STRESSOrdered By: Radiologist Radiology on 86-64-2015OM[facility] Work Phone: US OB GROWTHon [phone] [address] Ultrasound Report Signed Patient: COLTON MEDRANO MR#: [id number] : 1995 Acct:[id number] Age/Sex: 28 / F ADM Date: 06/30/24 Loc: NOMS Attending Dr: Moi Rueda D.O. Ordering Physician: Moi Rueda D.O. Date of Service: 06/30/24 Procedure(s): US OB growth Accession Number(s): [id number] cc: Moi Rueda D.O.; LUCILA ARNETT [address] [phone] Patient Name: COLTON MEDRANO MRN: [facility]:[id number] date: 1995 Sex: F Assigned Patient Location: [facility] Current Patient Location: [facility] Accession/Order Number: [id number] Exam Date: 06/30/2024 09:50 Report Date: 06/30/2024 [...] Signed By: 06/30/24 1017 DD/ 1015 TD/TT: [employer] Inspector:TERRIadiology, Radiologist, - 06/30/2024 [place] [address] Ultrasound Report Signed Patient: COLTON MEDRANO MR#: [id number] : 1995 Acct:[id number] Age/Sex: 28 / F ADM Date: 06/30/24 Loc: [facility]OMS Attending Dr: Moi Rueda D.O. Ordering Physician: Moi Rueda D.O. Date of Service: 06/30/24 Procedure(s): US OB growth Accession Number(s): [id number] cc: Moi Rueda D.O.; LUCILA ARNETT [place] [address] Patient Name: COLTON MEDRANO MRN: [facility]:[id number] date: 1995 Sex: F Assigned Patient Location: [facility] Current Patient Location: [facility] Accession/Order Number: [id number] Exam Date: 06/30/2024 09:50 Report Date: 06/30/2024 [...] Signed By: 06/30/24 1017 DD/ 1015 TD/TT: Cargo And [employer] Inspector: NOMS HealthcareRadiology Study observation (narrative)NOMS HealthcareUS OB GROWTHOrdered By: Radiologist Radiology on 07-99-6654UDJJ [facility] Work Phone: Urinalysis macro (dipstick) panel [...] mg/dLNOMS HealthcareNOMS HealthcareUS OB BPP W NON-STRESSon 33-51-9184O[address] [address] Ultrasound Report Signed Patient: COLTON MEDRANO MR#: [id number] : 1995 Acct:[id number] Age/Sex: 28 / F ADM Date: 06/27/24 Loc: [facility] 250-[address]: Moi Rueda D.O. Ordering Physician: Moi Rueda D.O. Date of Service: 06/27/24 Procedure(s): US OB BPP w non-stress Accession Number(s): [id number] cc: Moi Rueda D.O.; LUCILA ARNETT [place] [address] Patient Name: COLTON MEDRANO MRN: [facility]:[id number] date: 1995 Sex: F Assigned Patient Location: [facility] Current Patient Location: [facility] Accession/Order Number: [id number] Exam Date: 06/27/2024 11:00 Report Date: 06/27/2024 [...] Signed By: 06/27/24 1152 DD/ 1149 TD/TT: [employer] Inspector:BENNYHRadiology, Radiologist, MD - 06/27/2024 [place] [address] Ultrasound Report Signed Patient: COLTON MEDRANO MR#: [id number] : 1995 Acct:[id number] Age/Sex: 28 / F ADM Date: 06/27/24 Loc: [facility] 250-[address]: Moi Rueda D.O. Ordering Physician: Moi Rueda D.O. Date of Service: 06/27/24 Procedure(s): US OB BPP w non-stress Accession Number(s): [id number] cc: Moi Rueda D.O.; LUCILA ARNETT [place] [address] Patient Name: COLTON MEDRANO MRN: [facility]:[id number] date: 1995 Sex: F Assigned Patient Location: [facility] Current Patient Location: [facility] Accession/Order Number: [id number] Exam Date: 06/27/2024 11:00 Report Date: 06/27/2024 [...] Signed By: 06/27/24 1152 DD/ 1149 TD/TT: [employer]argo And [employer] Inspector: CULLEN HealthcareRadiology Study observation (narrative)NOMS HealthcareUS OB BPP W NON-STRESSOrdered By: Radiologist Radiology on 65-97-5805ML[facility] Work Phone: no Panel InformationOrdered By: Moi Rueda on 29-20-3893Oegjm Gp B [facility] - ColumbusUrinalysis macro (dipstick) panel (U)on 68-83-5530Ypfseqbuo, UANegativeNegative - 4(70) +++ mg/dL NOMS HealthcareBlood, [...] mg/dLNOMS HealthcareNOMS HealthcareUS OB BPP W NON-STRESSon 57-63-0725DebWest [place] [address] Ultrasound Report Signed Patient: COLTON MEDRANO MR#: [id number] : 1995 Acct:[id number] Age/Sex: 28 / F ADM Date: 06/20/24 Loc: US Attending Dr: Moi Rueda D.O. Ordering Physician: Moi Rueda D.O. Date of Service: 06/20/24 Procedure(s): US OB BPP w non-stress Accession Number(s): [id number] cc: Moi Rueda D.O.; LUCILA ARNETT [place] [address] Patient Name: COLTON MEDRANO MRN: [id number]:[id number] date: 1995 Sex: F Assigned Patient Location: [facility] Current Patient Location: Accession/Order Number: [id number] Exam Date: 06/20/2024 11:04 Report Date: 06/20/2024 [...] Signed By: 06/20/24 1233 DD/ 1230 TD/TT: C[employer] And [employer] Inspector:BENNYHRadiology, Radiologist, - 06/20/2024 [place] [address] Ultrasound Report Signed Patient: COLTON MEDRANO MR#: [id number] : 1995 Acct:[id number] Age/Sex: 28 / F ADM Date: 06/20/24 Loc: US Attending Dr: Moi Rueda D.O. Ordering Physician: Moi Rueda D.O. Date of Service: 06/20/24 Procedure(s): US OB BPP w non-stress Accession Number(s): [id number] cc: oMi Rueda D.O.; LUCILA ARNETT [place] [phone] Patient Name: COLTON MEDRANO MRN: [id number] date: 1995 Sex: F Assigned Patient Location: [facility] Current Patient Location: Accession/Order Number: [id number] Exam Date: 06/20/2024 11:04 Report Date: 06/20/2024 [...] Signed By: 06/20/24 1233 DD/ 1230 TD/TT: Cargo And [employer] Inspector: CULLEN HealthcareRadiology Study observation (narrative)NOMS HealthcareUS OB BPP W NON-STRESSOrdered By: Radiologist Radiology on 26-31-8720NU[facility] Work Phone: US OB BPP W NON-STRESSon 64-61-3104YxqWest [place] [address] Ultrasound Report Signed Patient: COLTON MEDRANO MR#: [id number] : 1995 Acct:[id number] Age/Sex: 28 / F ADM Date: 06/13/24 Loc: US Attending Dr: Moi Rueda D.O. Ordering Physician: Moi Rueda D.O. Date of Service: 06/13/24 Procedure(s): US OB BPP w non-stress Accession Number(s): [id number] cc: Moi Rueda D.O.; LUCILA ARNETT [place] [address] Patient Name: COLTON MEDRANO MRN: [id number] date: 1995 Sex: F Assigned Patient Location: [facility] Current Patient Location: Accession/Order Number: [id number] Exam Date: 06/13/2024 10:53 Report Date: 06/14/2024 [...] M.D. Signed By: 06/14/24422 DD/ 0 TD/TT: [employer] And [employer] Inspector:BENNYHRadiology, Radiologist, - 06/14/2024 [place] [address] Ultrasound Report Signed Patient: COLTON MEDRANO MR#: [id number] : 1995 Acct:[id number] Age/Sex: 28 / F ADM Date: 06/13/24 Loc: US Attending Dr: Moi Rueda D.O. Ordering Physician: Moi Rueda D.O. Date of Service: 06/13/24 Procedure(s): US OB BPP w non-stress Accession Number(s): [id number] cc: Moi Rueda D.O.; LUCILA ARNETT [place] [address] Patient Name: COLTON MEDRANO MRN: [id number] date: 1995 Sex: F Assigned Patient Location: [facility] Current Patient Location: Accession/Order Number: [id number] Exam Date: 06/13/2024 10:53 Report Date: 06/14/2024 [...] M.D. Signed By: 06/14/24422 DD/ 0 TD/TT: Cargo And Container Inspector: NOMRosa HealthcareRadiology Study observation (narrative)NOMS HealthcareUS OB BPP W NON-STRESSOrdered By: Radiologist Radiology on 74-14-4955NGNO [facility] Work Phone: US OB CERVICAL LENGTHon [phone] [place] [address] Ultrasound Report Signed Patient: COLTON MEDRANO MR#: [id number] : 1995 Acct:[id number] Age/Sex: 28 / F ADM Date: 06/06/24 Loc: [facility] 250-[address]: Moi Rueda D.O. Ordering Physician: Moi Rueda D.O. Date of Service: 06/06/24 Procedure(s): US OB cervical length Accession Number(s): [id number] cc: Moi Rueda D.O.; LUCILA ARNETT [place] [phone] Patient Name: COLTON MEDRANO MRN: [id number] date: 1995 Sex: F Assigned Patient Location: [facility] Current Patient Location: [facility] Accession/Order Number: [id number] Exam Date: 06/06/2024 12:58 Report Date: 06/06/2024 [...] Espitia M.D. Signed By: 06/06/24 1449 DD/ 144 TD/TT: C[employer] Inspector:TBHRadiology, Radiologist, - 06/06/2024 [place] [address] Ultrasound Report Signed Patient: COLTON MEDRANO MR#: [id number] : 1995 Acct:[id number] Age/Sex: 28 / F ADM Date: 06/06/24 Loc: [facility] [address]: Moi Rueda D.O. Ordering Physician: Moi Rueda D.O. Date of Service: 06/06/24 Procedure(s): US OB cervical length Accession Number(s): [id number] cc: Moi Rueda D.O.; LUCILA ARNETT [place] [address] Patient Name: COLTON MEDRANO MRN: [id number] date: 1995 Sex: F Assigned Patient Location: [facility] Current Patient Location: [facility] Accession/Order Number: [id number] Exam Date: 06/06/2024 12:58 Report Date: 06/06/2024 [...] Espitia M.D. Signed By: 06/06/24 1449 DD/ 144 TD/TT: Cargo And [employer] Inspector: CULLEN HealthcareRadiology Study observation (narrative)CULLEN BrannonUS OB CERVICAL LENGTHOrdered By: Radiologist Radiology on 28-73-2615FDTW [facility]eta Work Phone: US OB BPP W NON-STRESSon [phone] [place] [address] Ultrasound Report Signed Patient: COLTON MEDRANO MR#: [id number] : 1995 Acct:[id number] Age/Sex: 28 / F ADM Date: 06/06/24 Loc: [facility] 250-[address]: Moi Rueda D.O. Ordering Physician: Moi Rueda D.O. Date of Service: 06/06/24 Procedure(s): US OB BPP w non-stress Accession Number(s): [id number] cc: Moi Rueda D.O.; LUCILA ARNETT [place] [address] Patient Name: COLTON MEDRANO MRN: [id number] date: 1995 Sex: F Assigned Patient Location: [facility] Current Patient Location: [facility] Accession/Order Number: [id number] Exam Date: 06/06/2024 11:15 Report Date: 06/06/2024 [...] Signed By: 06/06/24 120 DD/ 02 TD/TT: [employer] Inspector:TERRIadiologJohanna gould MD - 06/06/2024 [place] [address] Ultrasound Report Signed Patient: COLTON MEDRANO MR#: [id number] : 1995 Acct:[id number] Age/Sex: 28 / F ADM Date: 06/06/24 Loc: [facility] 250-[address]: Moi Rueda D.O. Ordering Physician: Moi Rueda D.O. Date of Service: 06/06/24 Procedure(s): US OB BPP w non-stress Accession Number(s): [id number] cc: Moi Rueda D.O.; LUCILA ARNETT [place] [address] Patient Name: COLTON MEDRANO MRN: [id number] date: 1995 Sex: F Assigned Patient Location: [facility] Current Patient Location: [facility] Accession/Order Number: [id number] Exam Date: 06/06/2024 11:15 Report Date: 06/06/2024 [...] Espitia M.D. Signed By: 06/06/24 1206 DD/ 120 TD/TT: Cargo And [employer] Inspector: CULLEN HealthcareRadiology Study observation (narrative)NOMS HealthcareUS OB BPP W NON-STRESSOrdered By: Radiologist Radiology on 86-12-4212FRUR [facility] Work Phone: US OB GROWTHon [phone] [place] [address] Ultrasound Report Signed Patient: COLTON MEDRANO MR#: [id number] : 1995 Acct:[id number] Age/Sex: 28 / F ADM Date: 06/05/24 Loc: [facility] Attending Dr: Moi Rueda D.O. Ordering Physician: Moi Rueda D.O. Date of Service: 06/05/24 Procedure(s): US OB growth Accession Number(s): [id number] cc: Moi Rueda D.O.; LUCILA ARNETT [place] [address] Patient Name: COLTON MEDRANO MRN: [id number] date: 1995 Sex: F Assigned Patient Location: [facility] Current Patient Location: [facility] Accession/Order Number: [id number] Exam Date: 06/05/2024 09:55 Report Date: 06/05/2024 [...] Signed By: 06/05/24 1125 DD/ 1122 TD/TT: C[employer] And [employer] Inspector:BENNYHRadiology, Radiologist, - 06/05/2024 [place] [address] Ultrasound Report Signed Patient: COLTON MEDRANO MR#: [id number] : 1995 Acct:[id number] Age/Sex: 28 / F ADM Date: 06/05/24 Loc: [facility] Attending Dr: Moi Rueda D.O. Ordering Physician: Moi Rueda D.O. Date of Service: 06/05/24 Procedure(s): US OB growth Accession Number(s): [id number] cc: Moi Rueda D.O.; LUCILA ARNETT [place] [phone] Patient Name: COLTON MEDRANO MRN: [id number] date: 1995 Sex: F Assigned Patient Location: [facility] Current Patient Location: [facility] Accession/Order Number: [id number] Exam Date: 06/05/2024 09:55 Report Date: 06/05/2024 [...] Dictated By: Darline Espitia M.D. Signed By: 06/05/245 DD/ 21 TD/TT: Cargo And Container Inspector: [facility] HospitalRadiology Study observation (narrative)[facility] HospitalUS OB GROWTHOrdered By: Radiologist Radiology on 51-54-7781WHBPHawthorn Children's Psychiatric Hospital Work Phone: Urinalysis macro (dipstick) panel (U)on 06-05-2024 Bilirubin, UANegativeNegative - 4(70) +++ mg/dLNOMS HealthcareBlood, UAPositive Negative - 50 Jt/mcLNOMS HealthcareComment on above:trace-intactClarity, UA ClearNOMS HealthcareColor, UAYellowNOAK HealthcareGlucose, UANegativeNegative - 2000(110) ++++ mg/dLNOAK HealthcareInterpretation and review of laboratory resultsAbnormalNOAK HealthcareKetones, UANegativeNegative - 160(16) ++++ mg/dL [facility] HealthcareLeukocytes, UANegativeNegative - 500+++ [place]/mcLNOMS Healthcare Nitrite, UANegativeNegative - PositiveNOMS HealthcarepH, UA75 - 9N[facility]S Healthcare Protein, UANegativeNegative - 2000(20) ++++ mg/dLNOMS HealthcareSpec Grav, UA 1.021 - 1.03NOMS HealthcareUrobilinogen, UA1.00.2 - 12 mg/dLNOMS HealthcareNOMS HealthcareUS OB BPP W NON-STRESSon 65-49-7230EnqWest [place] [address] Ultrasound Report Signed Patient: COLTON MEDRANO MR#: [id number] : 1995 Acct:[id number] Age/Sex: 28 / F ADM Date: 05/30/24 Loc: [facility] 254-[address]: Moi Rueda D.O. Ordering Physician: Moi Rueda D.O. Date of Service: 05/30/24 Procedure(s): US OB BPP w non-stress Accession Number(s): [id number] cc: Moi Rueda D.O.; LUCILA ARNETT [place] [address] Patient Name: COLTON MEDRANO MRN: [id number] date: 1995 Sex: F Assigned Patient Location: [facility] Current Patient Location: [facility] Accession/Order Number: [id number] Exam Date: 05/30/2024 10:43 Report Date: 05/30/2024 [...] Signed By: 05/30/24 1114 DD/ 1111 TD/TT: Cargo And Container Inspector:TBHRadiology, Radiologist, - 05/30/2024 [place] [address] Ultrasound Report Signed Patient: COLTON MEDRANO MR#: [id number] : 1995 Acct:[id number] Age/Sex: 28 / F ADM Date: 05/30/24 Loc: [facility] 254-[address]: Mio Rueda D.O. Ordering Physician: Moi Rueda D.O. Date of Service: 05/30/24 Procedure(s): US OB BPP w non-stress Accession Number(s): [id number] cc: Moi Rueda D.O.; LUCILA ARNETT [place] [address] Patient Name: COLTON MEDRANO MRN: [id number] date: 1995 Sex: F Assigned Patient Location: [facility] Current Patient Location: [facility] Accession/Order Number: [id number] Exam Date: 05/30/2024 10:43 Report Date: 05/30/2024 [...] Signed By: 05/30/24 1114 DD/ 1111 TD/TT: C[employer] And [employer] Inspector: [facility] HealthcareRadiology Study observation (narrative)NOMS HealthcareUS OB BPP W NON-STRESSOrdered By: Radiologist Radiology on 80-95-1046QQNT Healthcare Work Phone: Urinalysis macro (dipstick) panel (U)on 05-19-2024 Bilirubin, UANegativeNegative - 4(70) +++ mg/dLNOMS HealthcareBlood, UANegative Negative - 50 Jt/mcLNOMS HealthcareClarity, UAClearNOMS HealthcareColor, UA YellowNOMS HealthcareGlucose, UANegativeNegative - 2000(110) ++++ mg/dLNOMS HealthcareInterpretation and review of laboratory resultsNormalNOAK Healthcare Ketones, UANegativeNegative - 160(16) ++++ mg/dLNOMS HealthcareLeukocytes, UA NegativeNegative - 500+++ [place]/mcLNOMS HealthcareNitrite, UANegativeNegative - PositiveNOMS HealthcarepH, UA7.05 - 9NOMS HealthcareProtein, UANegativeNegative - 2000(20) ++++ mg/dLNOMS HealthcareSpec Grav, UA1.0201 - 1.03N[facility]S Healthcare Urobilinogen, UA1.00.2 - 12 mg/dLNOMS HealthcareNOMS HealthcareUS OB CERVICAL LENGTHon 12-77-0335FpoWest [place] [address] Ultrasound Report Signed Patient: COLTON MEDRANO MR#: [id number] : 1995 Acct:[id number] Age/Sex: 28 / F ADM Date: 05/13/24 Loc: [facility] Attending Dr: Moi Rueda D.O. Ordering Physician: Moi Rueda D.O. Date of Service: 05/13/24 Procedure(s): US OB cervical length Accession Number(s): [id number] cc: Moi Rueda D.O.; LUCILA ARNETT [address] [address] Patient Name: COLTON MEDRANO MRN: [id number] date: 1995 Sex: F Assigned Patient Location: [facility] Current Patient Location: Accession/Order Number: [id number] Exam Date: 05/13/2024 14:38 Report Date: 05/14/2024 [...] Signed By: 05/14/24 0431 DD/ 0429 TD/TT: Cargo And Container Inspector:TBHRadiology, Radiologist, - 05/14/2024 [place] [address] Ultrasound Report Signed Patient: COLTON MEDRANO MR#: [id number] : 1995 Acct:[id number] Age/Sex: 28 / F ADM Date: 05/13/24 Loc: [facility] Attending Dr: Moi Rueda D.O. Ordering Physician: Moi Rueda D.O. Date of Service: 05/13/24 Procedure(s): US OB cervical length Accession Number(s): [id number] cc: Moi Rueda D.O.; LUCILA ARNETT [place] [address] Patient Name: COLTON MEDRANO MRN: [id number] date: 1995 Sex: F Assigned Patient Location: [facility] Current Patient Location: Accession/Order Number: [id number] Exam Date: 05/13/2024 14:38 Report Date: 05/14/2024 [...] M.D. Signed By: 05/14/24430 DD/ 8 TD/TT: Cargo And Container Inspector: CULLEN HealthcareRadiology Study observation (narrative)CULLEN HealthcareUS OB CERVICAL LENGTHOrdered By: Radiologist Radiology on 16-78-2309HQZR Healthcare Work Phone: US OB GROWTHon [phone] [place] [address] Ultrasound Report Signed Patient: COLTON MEDRANO MR#: [id number] : 1995 Acct:[id number] Age/Sex: 28 / F ADM Date: 05/08/24 Loc: [facility] Attending Dr: Moi Rueda D.O. Ordering Physician: Moi Rueda D.O. Date of Service: 05/08/24 Procedure(s): US OB growth Accession Number(s): [id number] cc: Moi Rueda D.O.; LUCILA ARNETT [place] [address] Patient Name: COLTON MEDRANO MRN: [id number] date: 1995 Sex: F Assigned Patient Location: [facility] Current Patient Location: [facility] Accession/Order Number: [id number] Exam Date: 05/08/2024 10:32 Report Date: 05/08/2024 [...] Signed By: 05/08/24 1233 DD/ 1230 TD/TT: Cargo And Container Inspector:TBHRadiology, Radiologist, - 05/08/2024 [place] [address] Ultrasound Report Signed Patient: COLTON MEDRANO MR#: [id number] : 1995 Acct:[id number] Age/Sex: 28 / F ADM Date: 05/08/24 Loc: [facility] Attending Dr: Moi Rueda D.O. Ordering Physician: Moi Rueda D.O. Date of Service: 05/08/24 Procedure(s): US OB growth Accession Number(s): [id number] cc: Moi Rueda D.O.; LUCILA ARNETT [place] [address] Patient Name: COLTON MEDRANO MRN: [id number] date: 1995 Sex: F Assigned Patient Location: [facility] Current Patient Location: [facility] Accession/Order Number: [id number] Exam Date: 05/08/2024 10:32 Report Date: 05/08/2024 [...] Signed By: 05/08/24 1233 DD/ 1230 TD/TT: [employer]: [facility] HealthcareRadiology Study observation (narrative)[facility] HospitalUS OB GROWTHOrdered By: Radiologist Radiology on [id number] Work Phone: Urinalysis macro (dipstick) panel (U)on 05-08-2024 Bilirubin, UANegativeNegative - 4(70) +++ mg/dLNOMS HealthcareBlood, UAPositive Negative - 50 Jt/mcLNOMS HealthcareComment on above:traceClarity, UAClearNOMS HealthcareColor, UAYellowNOMS HealthcareGlucose, UANegativeNegative - 2000(110) ++++ mg/dLNOMS HealthcareInterpretation and review of laboratory resultsAbnormal [facility] HealthcareKetones, UANegativeNegative - 160(16) ++++ mg/dLHawthorn [facility] Leukocytes, UANegativeNegative - 500+++ [place]/mcLNOMosaic Life Care at St. JosephNitrite, UA NegativeNegative - PositiveNOAK HealthcarepH, UA7.05 - 9NOAK HealthcareProtein, UANegativeNegative - 2000(20) ++++ mg/dLPARK CITY HOSPITAL HealthcareSpec Grav, UA1.0101 - 1.03NOAK HealthcareUrobilinogen, UA1.00.2 - 12 mg/dLMissouri Baptist Medical Center HealthcareALL CBC WITH AUTO DIFFon 73-14-2597YDSVXZOIC ABSOLUTE AUTO0.1NOMS HealthcareBasophils/100 WBC (Bld)0.8 %0.2 - 2.0 %[facility] HospitalEosinophils/100 WBC (Bld)1.3 %0.9 - 7.0 %[facility] HospitalErythrocyte distribution width (RBC) [Ratio]11.9 %11.0 - 15.0 %[facility] HospitalHematocrit (Bld) [Volume fraction]31.4 %Low36.0 - 48.0 %[facility] HospitalHemoglobin (Bld) [Mass/Vol]10.6 g/dLLow12.0 - 16.0 g/dLHawthorn Children's Psychiatric HospitalIMMATURE GRANULOCYTES ABS AUTO0.22HighHawthorn Children's Psychiatric Hospital Immature granulocytes/100 WBC (Bld)2.6 %High0.0 - 0.5 %[facility] Interpretation and review of laboratory resultsAbnormalHawthorn Children's Psychiatric Hospital LYMPHOCYTES ABSOLUTE AUTO1.5NOMosaic Life Care at St. JosephLymphocytes/100 WBC (Bld)17.5 %Low 20.5 - 60.0 %[facility] HospitalH (RBC) [Entitic mass]32.4 pg26.7 - 34.0 pgRay County Memorial HospitalHC (RBC) [Mass/Vol]33.8 g/dL29.9 - 35.2 g/dLRay County Memorial HospitalV (RBC) [Entitic vol]96.0 fL81.0 - 99.0 fLHawthorn Children's Psychiatric HospitalMONOCYTES ABSOLUTE AUTO0.9High [facility] HospitalMonocytes/100 WBC (Bld)10.6 %1.7 - 12.0 %[facility] NEUTROPHILS ABSOLUTE AUTO5.7NOMosaic Life Care at St. JosephNeutrophils/100 WBC (Bld)67.2 %43.0 - 75.0 %[facility]iatric HospitalPlatelet mean volume (Bld) [Entitic vol]9.0 fLLow9.5 - 13.5 fLHawthorn Children's Psychiatric HospitalTBH EO #0.1NOMS [facility] HospitalTB JSH118VBEV [facility] RBC3.[address] LowNOMosaic [address] Care [address] JosephTB WBC8.5NOMosaic [facility] St. JosephCLINISYNCNOMS HealthcareALL CBC WITH AUTO DIFFon 12-09-7684YVLADQDHV ABSOLUTE AUTO0.0NOAK HealthcareBasophils/100 WBC (Bld)0.4 %0.2 - 2.0 %NOMBarnes-Jewish Saint Peters HospitalEosinophils/100 WBC (Bld)0.9 %0.9 - 7.0 % [facility] HospitalErythrocyte distribution width (RBC) [Ratio]12.0 %11.0 - 15.0 % [facility] HospitalHematocrit (Bld) [Volume fraction]33.3 %Low36.0 - 48.0 %[facility] HospitalHemoglobin (Bld) [Mass/Vol]11.5 g/dLLow12.0 - 16.0 g/dLHawthorn Children's Psychiatric Hospital IMMATURE GRANULOCYTES ABS AUTO0.16HighHawthorn Children's Psychiatric HospitalImmature granulocytes/100 WBC (Bld)1.8 %High0.0 - 0.5 %[facility] HospitalInterpretation and review of laboratory resultsAbnormalNOMosaic Life Care at St. JosephLYMPHOCYTES ABSOLUTE AUTO1.3NOMS [facility] HospitalLymphocytes/100 WBC (Bld)14.5 %Low20.5 - 60.0 %[facility] HospitalH (RBC) [Entitic mass]33.0 pg26.7 - 34.0 pgRay County Memorial HospitalHC (RBC) [Mass/Vol] 34.5 g/dL29.9 - 35.2 g/dLHawthorn Children's Psychiatric HospitalMCV (RBC) [Entitic vol]95.7 fL81.0 - 99.0 fLHawthorn Children's Psychiatric HospitalMONOCYTES ABSOLUTE AUTO0.6NOMS [facility] HospitalMonocytes/100 WBC (Bld)6.5 %1.7 - 12.0 %[facility] HospitalNEUTROPHILS ABSOLUTE AUTO6.8HighNOMosaic Life Care at St. JosephNeutrophils/100 WBC (Bld)75.9 %High43.0 - 75.0 %[facility] Platelet mean volume (Bld) [Entitic vol]9.2 fLLow9.5 - 13.5 fLNOMS HealthcareTBH EO #0.1NOMS HealthcareTBH HGB335YKFM HealthcareTBH RBC3.48LowNOMS HealthcareTBH WBC8.9NOMS HealthcareCLINISYNCNOMS HealthcareUrinalysis macro (dipstick) panel (U)on 41-83-8256Dskkymuqx, UANegativeNegative - 4(70) +++ mg/dLNOMS Healthcare Blood, UANegativeNegative - 50 Jt/mcLNOMS HealthcareClarity, UAClearNOMS HealthcareColor, UAYellowNOMS HealthcareGlucose, UAPositiveNegative - 2000(110) ++++ mg/dLNOMS HealthcareComment on above:500Interpretation and review of laboratory resultsAbnormalNOMS HealthcareKetones, UANegativeNegative - 160(16) ++++ mg/dLNOMS HealthcareLeukocytes, UANegativeNegative - 500+++ [place]/mcLNOMS HealthcareNitrite, UANegativeNegative - PositiveNOMS HealthcarepH, UA6.55 - 9 NOMS HealthcareProtein, UANegativeNegative - 2000(20) ++++ mg/dLNOMS Healthcare Spec Grav, UA1.0201 - 1.03NOAK HealthcareUrobilinogen, UA0.20.2 - 12 mg/dLNOMS HealthcareNOAK HealthcareUrinalysis macro (dipstick) panel (U)on 04-10-2024 Bilirubin, UANegativeNegative - 4(70) +++ mg/dLNOMS HealthcareBlood, UANegative Negative - 50 Jt/mcLNOMS HealthcareClarity, UAClearNOMS HealthcareColor, UA YellowNOMS HealthcareGlucose, UANegativeNegative - 2000(110) ++++ mg/dLNOMS HealthcareInterpretation and review of laboratory resultsNormalPARK CITY HOSPITAL Healthcare Ketones, UANegativeNegative - 160(16) ++++ mg/dLNOMS HealthcareLeukocytes, UA NegativeNegative - 500+++ [place]/mcLNOMS HealthcareNitrite, UANegativeNegative - PositiveNOMS HealthcarepH, UA6.05 - 9NOMS HealthcareProtein, UANegativeNegative - 2000(20) ++++ mg/dLNOAK HealthcareSpec Grav, UA1.0151 - 1.03NOMosaic [facility] Care [facility] St[facility] Joseph Urobilinogen, UA1.00.2 - 12 mg/dLNOMineral Area Regional Medical Center HealthcareUltrasound - Officeon 15-33-8327Tmmldgdlx Study observation (narrative)[facility] SystemUS OB CERVICAL LENGTHon 71-55-6327Jpc[place] [address] Ultrasound Report Signed Patient: COLTON MEDRANO MR#: [id number] : 1995 Acct:[id number] Age/Sex: 28 / F ADM Date: 03/13/24 Loc: NOMS Attending Dr: Moi Rueda D.O. Ordering Physician: Moi Rueda D.O. Date of Service: 03/13/24 Procedure(s): US OB cervical length Accession Number(s): [id number] cc: Moi Rueda D.O.; LUCILA ARNETT [place] [address] Patient Name: COLTON MEDRANO MRN: [id number] date: 1995 Sex: F Assigned Patient Location: [facility] Current Patient Location: [facility] Accession/Order Number: [id number] Exam Date: 03/13/2024 10:53 Report Date: 03/13/2024 [...] Signed By: 03/13/24 1131 DD/ 1129 TD/TT: Cargo And Container Inspector:TERRIadiolkenroy, Radiologist, - 03/13/2024 [place] [address] Ultrasound Report Signed Patient: COLOTN MEDRANO MR#: [id number] : 1995 Acct:[id number] Age/Sex: 28 / F ADM Date: 03/13/24 Loc: NOMS Attending Dr: Moi Rueda D.O. Ordering Physician: Moi Rueda D.O. Date of Service: 03/13/24 Procedure(s): US OB cervical length Accession Number(s): [id number] cc: Moi Rueda D.O.; LUCILA ARNETT [place] [address] Patient Name: COLTON MEDRANO MRN: [facility]:[id number] date: 1995 Sex: F Assigned Patient Location: [facility] Current Patient Location: [facility] Accession/Order Number: [id number] Exam Date: 03/13/2024 10:53 Report Date: 03/13/2024 [...] Signed By: 03/13/24 1131 DD/ 1129 TD/TT: Cargo And Container Inspector: CULLEN HealthcareRadiology Study observation (narrative)NOMRosa HealthcareUS OB CERVICAL LENGTHOrdered By: Radiologist Radiology on 59-65-9656YUJJ Healthcare Work Phone: Ultrasound - Officeon 86-00-7843JfjRfcghh Health SystemUltrasound - Officeon 22-13-8756Mwdspnuhf Study observation (narrative) [facility] SystemUS APPENDIXon 76-44-4908DccJonathan [place] [id number] Ultrasound Report Signed Patient: COLTON MEDRANO MR#: [id number] : 1995 Acct:[id number] Age/Sex: 28 / F ADM Date: 12/26/23 Loc: US Attending Dr: Moi Rueda D.O. Ordering Physician: Moi Rueda D.O. Date of Service: 12/26/23 Procedure(s): US appendix Accession Number(s): [id number] cc: Moi Rueda D.O.; LUCILA ARNETT [place] [address] Patient Name: COLTON MEDRANO MRN: [facility]:[id number] date: 1995 Sex: F Assigned Patient Location: [place] Current Patient Location: [place] Accession/Order Number: [id number] Exam Date: 12/26/2023 12:42 Report Date: 12/26/2023 [...] Signed By: 12/26/23 1348 DD/ 1345 TD/TT: Cargo And Container Inspector:TBHRadiology, Radiologist, MD - 12/26/2023 [place] [address] Ultrasound Report Signed Patient: COLTON MEDRANO MR#: [id number] : 1995 Acct:[id number] Age/Sex: 28 / F ADM Date: 12/26/23 Loc: US Attending Dr: Moi Rueda D.O. Ordering Physician: Moi Rueda D.O. Date of Service: 12/26/23 Procedure(s): US appendix Accession Number(s): [id number] cc: Moi Rueda D.O.; LUCILA ARNETT [address] [phone] Patient Name: COLTON MEDRANO MRN: [id number] date: 1995 Sex: F Assigned Patient Location: US Current Patient Location: [place] Accession/Order Number: [id number] Exam Date: 12/26/2023 12:42 Report Date: 12/26/2023 [...] Signed By: 12/26/23 1348 DD/ 1345 TD/TT: Cargo And Container Inspector: CULLEN HealthcareRadiology Study observation (narrative)CULLEN Velasco APPENDIX Ordered By: Radiologist Radiology on 01-22-3224QVWX Asseta Work Phone: US OB TRANSVAGINALon [phone] [place] [address] Ultrasound Report Signed Patient: COLTON MEDRANO MR#: [id number] : 1995 Acct:[id number] Age/Sex: 28 / F ADM Date: 12/26/23 Loc: US Attending Dr: Moi Rueda D.O. Ordering Physician: Moi Rueda D.O. Date of Service: 12/26/23 Procedure(s): US OB transvaginal Accession Number(s): [id number] cc: Moi Rueda D.O.; LUCILA ARNETT [address] [phone] Patient Name: COLTON MEDRANO MRN: [id number] date: 1995 Sex: F Assigned Patient Location: US Current Patient Location: US Accession/Order Number: [id number] Exam Date: 12/26/2023 12:42 Report Date: 12/26/2023 [...] Signed By: 12/26/23 1347 DD/ 1344 TD/TT: Cargo And Container Inspector:TBHRadiology, Radiologist, MD - 12/26/2023 [place] [address] Ultrasound Report Signed Patient: COLTON MEDRANO MR#: [id number] : 1995 Acct:[id number] Age/Sex: 28 / F ADM Date: 12/26/23 Loc: US Attending Dr: Moi Rueda D.O. Ordering Physician: Moi Rueda D.O. Date of Service: 12/26/23 Procedure(s): US OB transvaginal Accession Number(s): [id number] cc: Moi Rueda D.O.; LUCILA ARNETT [place] [phone] Patient Name: COLTON MEDRANO MRN: [facility]:[id number] date: 1995 Sex: F Assigned Patient Location: [place] Current Patient Location: Accession/Order Number: [id number] Exam Date: 12/26/2023 12:42 Report Date: 12/26/2023 [...] Dictated By: Darline Espitia M.D. Signed By: 12/26/231346 DD/ 43 TD/TT: Cargo And Container Inspector: CULLEN HealthcareRadiology Study observation (narrative)NOMS HealthcareUS OB TRANSVAGINALOrdered By: Radiologist Radiology on 19-47-0425LVSQ Healthcare Work Phone: US OB TRANSVAGINALon [phone] [address] Ultrasound Report Signed Patient: Colton MEDRANO MR#: [id number] : 1995 Acct:[id number] Age/Sex: 28 / F ADM Date: 12/13/23 Loc: NOMS Attending Dr: Moi Rueda D.O. Ordering Physician: Moi Rueda D.O. Date of Service: 12/13/23 Procedure(s): US OB transvaginal Accession Number(s): [id number] cc: Moi Ruead D.O.; LUCILA ARNETT [place] [phone] Patient Name: COLTON MEDRANO MRN: [id number]:[id number] date: 1995 Sex: F Assigned Patient Location: [facility] Current Patient Location: [facility] Accession/Order Number: [id number] Exam Date: 12/13/2023 12:25 Report Date: 12/13/2023 [...] Signed By: 12/13/23 1340 DD/ 1337 TD/TT: Cargo And Container Inspector:BENNYHRadiology, Radiologist, MD - 12/13/2023 [place] [address] Ultrasound Report Signed Patient: Colton MEDRANO MR#: [id number] : 1995 Acct:[id number] Age/Sex: 28 / F ADM Date: 12/13/23 Loc: NOMS Attending Dr: Moi Rueda D.O. Ordering Physician: Moi Rueda D.O. Date of Service: 12/13/23 Procedure(s): US OB transvaginal Accession Number(s): [id number] cc: Moi Rueda D.O.; LUCILA ARNETT [place] [phone] Patient Name: COLTON MEDRANO MRN: [facility]:[id number] date: 1995 Sex: F Assigned Patient Location: [facility] Current Patient Location: [facility] Accession/Order Number: [id number] Exam Date: 12/13/2023 12:25 Report Date: 12/13/2023 [...] Signed By: 12/13/23 1340 DD/ 1337 TD/TT: Cargo And Container Inspector: CULLEN HealthcareRadiology Study observation (narrative)[facility] DISPENSARYRosa HealthcareUS OB TRANSVAGINALOrdered By: Radiologist Radiology on 73-15-5768FGNQ Healthcare Work Phone: Ultrasound - Officeon 86-39-4135HobAwporeSt. Francis Hospital.beta subunit Qnon 51-31-5472gRI Ezaow611501 mIU/mLNormalCleveland Clinic Mercy Hospital on above:Order Comment: Reference Ranges Negative = [...] with a different immunoassay method.Performed By: #### 83057-9 #### [facility] ([facility]) [facility] [address] [place] [address]QZP.beta subunit Qnon 33-99-8568kEF Ijiev98498 mIU/mLNormal [facility] on above:Order Comment: Reference Ranges Negative = [...] with a different immunoassay method.Performed By: #### 44355-4 #### [facility] ([facility] [address] [place], [place] [address]WGZ.beta subunit Qnon 33-02-2801nUZ Hsqhm01530 mIU/mLNormal [facility] on above:Order Comment: Reference Ranges Negative = [...] with a different immunoassay method.Performed By: #### 21452-9 #### [facility] ([facility] [address] [place], [place] [address]KXK.beta subunit Qnon 88-50-6788pEB Dzuyv27231 mIU/mLNormal [facility] on above:Order Comment: Reference Ranges Negative = [...] with a different immunoassay method.Performed By: #### 67978-6 #### [facility] ([facility] [address] [place], [place] [address]ZPP.beta subunit Qnon 03-18-6938zOA Vnkij0934 mIU/mLNormal [facility] on above:Order Comment: Reference Ranges Negative = [...] with a different immunoassay method.Performed By: #### 76507-1 #### [facility] ([facility] [address] [place], [place] [address]UAI.beta subunit Qnon 68-34-1461eMD Yigsv391 mIU/mLNormalMoKettering Health Washington Township on above:Order Comment: Reference Ranges Negative = [...] with a different immunoassay method.Performed By: #### 53102-5 #### [facility] ([facility] [address] [place], [place] [address]IZD.beta subunit Qnon 08-73-5181cGX Ypqnu494 mIU/mLNormalMount Choctaw Health Center on above:Order Comment: Reference Ranges Negative [...] with a different immunoassay method.Performed By: #### 72667-0 #### [facility] ([facility] [address] [place] [address].Thyroglobulin by [place] 67-85-1283Paavitwmjvvey [Mass/Vol]5.0 ng/mLInvalid Interpretation Code1.5-38.5FAvita Health System Galion HospitalComment on above:Result Comment: According to the National [...] by John Vish Immunometric Assay Performed at: [facility] [id number] PhD Johanny NietoPerformed By: #### 7751284, 78321126, 06504161, 5180780, 050977527, [id number], 73102603 #### [facility]ee [facility] [address], [place] [address]D0 [facility] 55-05-0131Aqeu T3 [Mass/Vol]3.2 pg/mLInvalid Interpretation Code2.0-4.4FAvita Health System Galion HospitalComment on above:Result Comment: Performed at: [facility] [address] [place], [place] [id number] [id number] PhD Johanny NietoPerformed By: #### 0895996, 05989965, 48019766, 1956888, 045958089, [id number], 01349594 #### [facility] [address], [place] [address]TeFo+Thyroglobulinon 01-02-8552Elnknfdbboeew Ab Qn[IU]/mL Invalid Interpretation Code0.0-0.9[facility] Md, Cancer CenterComment on above: Result Comment: Thyroglobulin Antibody measured by [employer] It should be noted that the presence of thyroglobulin antibodies may not be pathogenic nor diagnostic, especially at very low levels. The assay quarry extraction worker has found that four percent of individuals without evidence of thyroid disease or autoimmunity will have positive TgAb levels up to 4 IU/mL. Performed at: [address] [id number] PhD Johanny NietoPerformed By: #### 4985889, 67125932, 08118339, 5787528, 893379092, 345430510, 42311670 #### [facility] [address], [place] [address]Coqezhe Perox.tpo Abon 26-16-6236NOB Ab Qn[IU]/mLInvalid Interpretation Code0-34Ohio[facility] Md, Cancer CenterComment on above:Result Comment: Performed at: [address] [id number] PhD Johanny NietoPerformed By: #### 3618454, 49183747, 39895361, 5235653, 156224445, 042356027, 58452212 #### [facility] [address], [place] [address]VeBN Quanton 19-00-4012WIM.beta subunit Qn86 m[IU]/mLHigh1-3 [facility] Cancer CenterComment on above:Result Comment: 'F NON < 1 - 3' ' 0.2 - 1 WEEK = 5 TO 50' ' 1 - 2 WEEKS = 50 - 500' ' 2 - 3 WEEKS = 100 - 5000' ' 3 - 4 WEEKS = 500 - 94358' ' 4 - 5 WEEKS = 1000 - 68537' ' 5 - 6 WEEKS = 58826 - 215230' ' 6 - 8 WEEKS = 33608 - 284146' ' 8 - 12 WEEKS = 28098 - 961290'Performed By: #### 6908312 #### Joselito [facility] [address], [place] [address]XZPWOEUAQGopamyz By: SYSTEM SYSTEM on 32-92-3548REC.beta subunit Qn86 m[IU]/mLHigh1 - 3 mIU/mLRemisol ChemComment on above:Result Comment: 'F NON < 1 - 3' ' 0.2 - 1 WEEK = 5 TO 50' ' 1 - 2 WEEKS = 50 - 500' ' 2 - 3 WEEKS = 100 - 5000' ' 3 - 4 WEEKS = 500 - 72979' ' 4 - 5 WEEKS = 1000 - 08733' ' 5 - 6 WEEKS = 49790 - 966604' ' 6 - 8 WEEKS = 72401 - 303677' ' 8 - 12 WEEKS = 85400 - 668908'Iron [Mass/Vol]161 ug/lLOqjz40 - 153 mcg/dLRemisol ChemIron binding capacity [Mass/Vol]316 ug/mQYvenac201 - 400 mcg/dLRemisol ChemTransferrin [Mass/Vol]226 mg/rLFqbesy196 - 370 mg/dLRemisol ChemTSH Qn1.53 m[IU]/LNormal0.34 - 5.60 mcIU/mLRemisol ChemConsent for Treatment on 57-86-0765Kvmdvav for Treatment [id number]#1.00TIFFNormalOhiohealth Arthur G.H. Bing, Md, Cancer CenterIronon 81-01-9013Cees [Mass/Vol]161 microgram/zVIwfj32-510SgbfquOhiohealth Arthur G.H. Bing, Md, Cancer CenterComment on above:Performed By: #### 4884632, 92161355, 52540006, 4734571, 221780161, 072403914, 48151600 #### Joselito [facility] [address], [place] [address]Prwgiufej Orderon 66-11-1520Pjkighzlc Order [id number]#1.00TIFFNormalOhiohealth Arthur G.H. Bing, Md, Cancer CenterTIBC Calculatedon 40-39-8063Xmdn binding capacity [Mass/Vol]316 microgram/bMKqjrel405-332MsuhidOhiohealth Arthur G.H. Bing, Md, Cancer CenterComment on above:Performed By: #### 6636211, 44049889, 66614304, 1534446, 008129772, 684269303, 07249047 #### Joselito [facility] [address], [place] [address]Swryjvhwurl [Mass/Vol]226 mg/eFShqirr663-144ObpaokOhiohealth Arthur G.H. Bing, Md, Cancer CenterComment on above:Performed By: #### 9804183, 74834607, 33370334, 1325255, 575079103, 925172131, 25854993 #### Yee [facility] [address], [place] [address]JUZ With T4fr Reflexon 40-41-4827UZQ Qn1.53 m[IU]/LNormal 0.34-5.60Ohio[facility] Md, Cancer CenterComment on above:Performed By: #### 1356776, 53874352, 39943613, 1376874, 145315465, 654584396, 55151020 #### Yee [facility] [address], [place] [address]PPUnj 08-55-7063UEY9.756 uIU/mLNormal0.470-4.680[facility]-Patterson Medical CenterComment on above:Performed By: #### TSH #### [facility] [address] [place] [address] Jayne Bethesda North HospitalComment on above:Result Comment: <0.34 UIU/ml HYPERTHYROID 0.34-5.60 UIU/ml EUTHYROID >5.60 UIU/ml HYPOTHYROIDPerformed By: #### TSH #### [facility] [address] [place] [address] Jayne CruzSt. Mary's Hospital AUTO DIFFon 64-76-6060IJHN #0.1 103/ulNormal0.0-0.1The [facility] Medical CenterComment on above:Performed By: #### CBC #### [facility] [address] [place] [address] Jayne KarenBasophils/100 WBC (Bld)1.2 %Normal0.2-2.0The [facility] Comment on above:Performed By: #### CBC #### [facility] [address] [place] [address] Jayne KarenEO #0.2 103/ulNormal0.0-0.7The [facility] Medical CenterComment on above: Performed By: #### CBC #### [facility] [address] [place] [address] Jayne KarenEosinophils/100 WBC (Bld)2.6 %Normal0.9-7.0The [facility] Comment on above:Performed By: #### CBC #### [facility] [address] [place] [address] Jayne KarenErythrocyte distribution width (RBC) [Ratio]12.0 %Sbecwl90.0-15.0The [facility] Medical CenterComment on above:Performed By: #### CBC #### [facility] [address] [place] [address] Jayne KarenHematocrit (Bld) [Volume fraction]40.7 %Ovjjfl72.0-48.0The [facility] Medical CenterComment on above:Performed By: #### CBC #### [facility] [address] [place] [address] Jayne KarenHemoglobin (Bld) [Mass/Vol]13.6 g/kYBrhxic38.0-16.0The [facility] CenterComment on above:Performed By: #### CBC #### [facility] [address] [place] [address] Jayne KarenIG #0.01 10e3/ulNormal0.00-0.03The [facility] CenterComment on above:Performed By: #### CBC #### [facility] [address] [place] [address] Jayne KarenIG %0.2 %Normal0.0-0.5The [facility] CenterComment on above: Performed By: #### CBC #### [facility] [address] [place] [address] Jayne HammLYMPH #1.9 103/ulNormal1.2-3.8The [facility] Medical CenterComment on above: Performed By: #### CBC #### [facility] [address] [place] [address] Jayne HammLymphocytes/100 WBC (Bld)32.5 %Slagwk92.5-60.0The [facility] Comment on above:Performed By: #### CBC #### [facility] [address] [place] [address] Jayne HammMANUAL DIFF REQNONormalThe [facility] Medical CenterComment on above: Performed By: #### CBC #### [facility] [address] [place] [address] Jayne KarenBROOKLYN [facility] (RBC) [Entitic mass]31.3 brEwljnl74.7-34.0[facility] Comment on above:Performed By: #### CBC #### [facility] [address] [place] [address] Jayne CruzenMCHC (RBC) [Mass/Vol]33.4 g/kBLjjegs92.9-35.2[facility] Comment on above:Performed By: #### CBC #### [facility] [address] [place] [address] Jayne HammV (RBC) [Entitic vol]93.6 nNCcyqnb22.0-99.0[facility] Comment on above:Performed By: #### CBC #### [facility] [address] [place] [address] Jayne HammMONO #0.6 103/ulNormal0.3-0.8The [facility] Medical CenterComment on above: Performed By: #### CBC #### [facility] [address] [place] [address] Jayne KarenMonocytes/100 WBC (Bld)10.4 %Normal1.7-12.0The [facility] Comment on above:Performed By: #### CBC #### [facility] [address] [place] [address] Jayne FloresUT #3.1 103/ulNormal1.4-6.5The [facility] Medical CenterComment on above: Performed By: #### CBC #### [facility] [address] [place] [address] Jayne CruzenNeutrophils/100 WBC (Bld)53.1 %Fmrvvi00.0-75.0The [facility] Comment on above:Performed By: #### CBC #### [facility] [address] [place] [address] Jayne HammPlatelet mean volume (Bld) [Entitic vol]8.9 fLCritically low9.5-13.5 The [facility] CenterComment on above:Performed By: #### CBC #### [facility] [address] [place] [address] Jayne BcehmQKD542 103/gkYzkfqk235-516Oeg [facility] Medical CenterComment on above: Performed By: #### CBC #### [facility] [address] [place] [address] Jayne KarenRBC4.35 106/ulNormal4.20-5.40The [facility] Medical CenterComment on above: Performed By: #### CBC #### [facility] [address] [place] [address] Jayne KarenWBC5.8 103/ulNormal4.0-11.0The [facility] Hospitals Geauga Medical CenterComment on above: Performed By: #### CBC #### [facility] [address] [place] [address] Jayne KarenPREG QUANT HCGon 10-76-1074ZDX QUANT1.00 mIU/mLNormalThe [facility]als Geauga Medical CenterComment on above:Performed By: #### PREGQNT #### [facility] [address] [place] [address] Jayne KarenHCG RANGESEE BELOWNormalThe [facility] Hospitals Geauga Medical CenterComment on above:Result Comment: 5-50 0-1 WEEK 40-300 1-2 WEEKS 100-1,000 2-3 WEEKS 500-6,000 3-4 WEEKS 5,000-200,000 1-2 MONTHS 10,000-100,000 2-3 MONTHS 3,000-50,000 2ND TRIMESTER 1,000-50,000 3RD TRIMESTERPerformed By: #### PREGQNT #### [facility] [address] [place] [address] Jayne KarenPAP ACOG PANEL 2: 21 to 29on 05-06-2020..[facility] Comment on above:Performed By: #### [id number] #### [facility] [address] [place] [address] Jayne KarenAge Gdln ACOG Xkjkxxp77-01HvokefHycLutheran HospitalComment on above:Performed By: #### [id number] #### [facility] [address] [place] [address] Jayne KarenDIAGNOSIS:CommentProtestant Hospital on above:Result Comment: NEGATIVE FOR INTRAEPITHELIAL LESION OR MALIGNANCY.Performed By: #### [id number] #### [facility] [address] [place] [address] Jayne KarenMethodology:CommentNoParkview Health [facility] on above: Result Comment: This liquid based SurePath(R) pap test was screened with the assistance of an image guided system.Performed By: #### [id number] #### [facility] [address] [place] [address] Jayne KarenNote:CommentProtestant Hospital on above:Result Comment: The Pap smear is a screening test designed to aid in the detection of premalignant and malignant conditions of the uterine cervix. It is not a diagnostic procedure and should not be used as the sole means of detecting cervical cancer. Both false-positive and false-negative reports do occur. .Performed By: #### [id number] #### [facility] [address] [place] [address] Jayne KarenPerformed by:CommentProtestant Hospital on above: Result Comment: Mechelle Rdz, Cardiology Consultant (ASCP)Performed By: #### [id number] #### [facility] [address] [place] [address] Jayne KarenReflex Criteria:CommentProtestant Hospital on above: Result Comment: The HPV DNA reflex criteria were not met with this specimen result therefore, no HPV testing was performed. .Performed By: #### [id number] #### [facility] [address] [address] Jayne KarenSpecimen adequacy:CommentProtestant Hospital on above:Result Comment: Satisfactory for evaluation. Endocervical and/or squamous metaplastic cells (endocervical component) are present.Performed By: #### [id number] #### [facility] [address] [place] [address] Jayne KarenUS PELVIS AND TRANSVAGon 08-21-8400UO PELVIS AND TRANSVAG EXAMINATION: US PELVIS AND [...] Electronically authenticated by: DARLINE ESPITIA Date: 2020-04-30 14:54[facility] Vital Signs Date TimeVital SignValuePerforming JierlommvHqmurllh00-74-1460 13:18-0500Body earsdf030.3 cmCorey Marybeth DO Work Phone: [facility] JosephPttwckjwyu46-91-5954 13:18-0500Body mass index (BMI) [Ratio]19.22 kg/j4Gunqq Marybeth DO Work Phone: [facility] HospitalRophqhkreq74-91-0227 13:18-0500Body cecmgs87.51 kgCorey Marybeth DO Work Phone: [facility] HospitalMygcgxxiel87-99-2570 13:18-0500Diastolic blood oknpwhpd98 mm[Hg]Moi Andradezio DO Work Phone: [facility] HospitalAtgcihtqan97-11-0926 13:18-0500Systolic blood mm[Hg]Moiluis fernando Mcwilliamso DO Work Phone: [facility] HospitalUghxgyzsli39-21-2442 15:39-0400Body mass index (BMI) [Ratio]20.79 kg/s1Tdbaaqddaniel Marlow DO Work Phone: [facility] HospitalIqyrcjnjbt86-93-3342 15:39-0400Body rhgivj10.59 kgLeonel Marlow DO Work Phone: [facility] HospitalXwqhjwaxtj33-93-6756 08:34-0400Body mimprj385.34 cm[facility]05-13-2025 08:34-0400Body mass index (BMI) [Ratio]21 kg/b1EfrxtvrvaDoctors Hospital05-13-2025 08:34-0400Body axwzfbnbqbz14.9 [degF][facility]05-13-2025 08:34-0400Body vwzken49.49 kgDo[facility]05-13-2025 08:34-0400Diastolic blood jhftujze79 mm[Hg][facility]05-13-2025 08:34-0400 Heart rate79 /minDoctors Hospital05-13-2025 08:34-6352EcO7% (BldA) [Mass fraction]97 %[facility]05-13-2025 08:34-0400 Systolic blood iwdovbye970 mm[Hg][facility]03-10-2025 10:33-0400Body regcvp674.34 cmRandelltheresa Arnett DIRECT CARE PROFESSIONAL Work Phone: [facility]03-10-2025 10:33-0400 Body mass index (BMI) [Ratio]21.4 kg/d0TivipsskLucila Arnett DIRECT CARE PROFESSIONAL Work Phone: [facility]03-10-2025 10:33-0400 Body fadmszyzxtq25.8 [degF]Lucila Arnett DIRECT CARE PROFESSIONAL Work Phone: [facility]03-10-2025 10:33-0400 Body myswja64.56 kgLucila Arnett DIRECT CARE PROFESSIONAL Work Phone: [facility]03-10-2025 10:33-0400 Diastolic blood umzztkrw27 mm[Hg]Lucila Arnett DIRECT CARE PROFESSIONAL Work Phone: [facility]03-10-2025 10:33-0400 Systolic blood fedjbadi956 mm[Hg]Lucila Arnett DIRECT CARE PROFESSIONAL Work Phone: [facility]01-20-2025 14:16-0500 Body kwamzy070.34 cmDoctors Hospital01-20-2025 14:16-0500Body mass index (BMI) [Ratio]22.1 kg/e6KhsrtntcsDoctors Hospital01-20-2025 14:16-0500Body zfcejdxuqwm33.4 [degF][facility]01-20-2025 14:16-0500Body bhtdda72.83 kgDoctors Hospital01-20-2025 14:16-0500Diastolic blood ghlfttum58 mm[Hg][facility] 09-08-2024 14:16-0500Heart rate82 /minDo[facility] Hospital 09-08-2024 14:16-5278EcS9% (BldA) [Mass fraction]98 %[facility]01-20-2025 14:16-0500Systolic blood yblhfoyu946 mm[Hg][facility]01-08-2025 13:36-0500Body cgouxu03.58 kgCorey Marybeth DO Work Phone: [facility] HospitalNqxvynrykn71-88-3172 13:36-0500Diastolic blood utfuikoe87 mm[Hg]Moi Marybeth DO Work Phone: [facility] HospitalEapxpvxdnt44-63-0431 13:36-0500Systolic blood acuhfgxx764 mm[Hg]Moi Marybeth DO Work Phone: [facility] HospitalTmjxlcigpd12-69-3486 13:23-0500Body byxcru51.48 kgCorey Marybeth DO Work Phone: [facility] HospitalWuwoqwtxjq95-61-4717 13:23-0500Diastolic blood izqyfucx39 mm[Hg]Moi Marybeth DO Work Phone: [facility] HospitalBttltktybm99-50-1106 13:23-0500Systolic blood lqytshbh94 mm[Hg]Moi Marybeth DO Work Phone: [facility] HospitalPvrwfhfmgu08-18-2266 12:57-0500Body rhowqj745.34 cmDoctors Hospital11-27-2024 12:57-0500Body mass index (BMI) [Ratio]22.8 kg/j4HxjiyyjmsDoctors Hospital11-27-2024 12:57-0500Body xnsrbcrxhem16.5 [degF][facility]11-27-2024 12:57-0500Body ohpsfk31.5 kgDo[facility] Hospital11-27-2024 12:57-0500Diastolic blood rfxyfvzb30 mm[Hg][facility]11-27-2024 12:57-0500 Heart rate76 /minDoctors Hospital11-27-2024 12:57-1589GxK4% (BldA) [Mass fraction]98 %[facility]11-27-2024 12:57-0500 Systolic blood tqednzjy560 mm[Hg][facility]11-11-2024 10:30-0500Body qlgxua17.64 kgCorey Marybeth DO Work Phone: [facility] HospitalEnlcppddls03-66-2529 10:30-0500Diastolic blood mm[Hg]Moi Marybeth DO Work Phone: [facility] HospitalGeblfhyfvd33-55-8567 10:30-0500Systolic blood kzmiaxex756 mm[Hg]Moi Marybeth DO Work Phone: 1(419)483-[address] [place], [place] [address]Kobywplqwx67-51-3210 09:56-0500Body qiyhdl62.74 kgCorey Marybeth DO Work Phone: 1(852)[facility] [place], [place] [address]Bdjvqhbunj42-06-2628 09:56-0500Diastolic blood yxgnpwsz01 mm[Hg]Moi Marybeth DO Work Phone: 1(194)[facility] [place], [place] [address]Pllxyepvny60-53-2213 09:56-0500Systolic blood hpognbuy135 mm[Hg]Moi Marybeth DO Work Phone: 1(581)[address] [place], [place] 6528510-17-2024 10:48-0400Body tahcyz81.34 kgCorey Marybeth DO Work Phone: 1(746)[address] [place], [place] 6528510-17-2024 10:48-0400Diastolic blood gebfmmpn00 mm[Hg]Moi Marybeth DO Work Phone: 1(047)[address] [place], [place] 6528510-17-2024 10:48-0400Systolic blood hbocivza770 mm[Hg]Moi Marybeth DO Work Phone: 1(962)[address] [place] [address]-30-2024 11:10-0400Body .83 kgCorey Marybeth DO Work Phone: 1(611)[address] [place] [address]-30-2024 11:10-0400Diastolic blood ervpyyeq59 mm[Hg]Moi Marybeth DO Work Phone: 1(013)[address] [place], [place] 6528509-30-2024 11:10-0400Systolic blood yjiazfuc917 mm[Hg]Moi Marybeth DO Work Phone: 1(218)[address] [place] [address]-19-2024 11:25-0400Body vngyvv83.17 kgCorey Marybeth DO Work Phone: 1(830)[address] [place] [address]-19-2024 11:25-0400Diastolic blood ymthozck63 mm[Hg]Moi Marybeth DO Work Phone: 1(658)[address] [place] [address]-19-2024 11:25-0400Systolic blood lcrthhyn007 mm[Hg]Moi Marybeth DO Work Phone: 1(351)[address] [place] [address]-05-2024 11:31-0400Body ywlvvo55.75 kgCorey Marybeth DO Work Phone: [facility] HospitalObdyvjsswq26-50-0629 11:31-0400Diastolic blood oksgatpp01 mm[Hg]Moi Marybeth DO Work Phone: [facility] HospitalYvjkcyjhai78-35-1581 11:31-0400Systolic blood mm[Hg]Moi Marybeth DO Work Phone: 1(213)370-[address] [place], [place] [address]Fqtbuqxvws29-94-9591 10:04-0400Body llojbu94.3 kg Moi Marybeth DO Work Phone: 1(985)964-[address] [place], [place] [address]Dbmjrgknpf74-49-7577 10:04-0400Diastolic blood djahkjvr53 mm[Hg]Moi Marybeth DO Work Phone: [facility] HospitalSwbbiysdqu29-71-1120 10:04-0400Systolic blood mm[Hg]Moi Marybeth DO Work Phone: 1(302)053-[address] [place], [place] [address]Amnyimbifc24-21-9275 13:18-0400Body uurmqd463.3 cmTammy Horne MD Work Phone: 1(719)[address] [place], [place] 2663807-08-2024 13:18-0400Body mass index (BMI) [Ratio]21.51 kg/y2GvcxntcbTammy Horne MD Work Phone: 1(809)[address] [place], [place] 2663807-08-2024 13:18-0400Body .94 kgTammy Horne MD Work Phone: 1(916)[address] [place], [place] 2663807-08-2024 13:18-0400Diastolic blood yiqxtkzc58 mm[Hg]Tammy Horne MD Work Phone: 1(894)[address] [place], [place] 2663807-08-2024 13:18-0400Heart rate 58 /minTammy Horne MD Work Phone: 1(606)[address] [place], [place] 2663807-08-2024 13:18-0400Systolic blood mm[Hg]Tammy Horne MD Work Phone: 1(400)[address] [place], [place] 2663806-03-2024 10:39-0400Body sklniu856.3 cmBari Zepeda MD Work Phone: 1(141)[address]06-03-2024 10:39-0400Body mass index (BMI) [Ratio]20.36 kg/o6CxsizBari Zepeda MD Work Phone: 1(821)[address] [place], [place] 2663806-03-2024 10:39-0400Body .22 kgBari Zepeda MD Work Phone: 1(786)[address] [place], [place] 2663806-03-2024 10:39-0400Diastolic blood khiwkxtw08 mm[Hg]Bari Zepeda MD Work Phone: 1(304)[address] [place], [place] 2663806-03-2024 10:39-0400Heart rate 82 /minBari Zepeda MD Work Phone: 1(771)[address] [place], [place] 2663806-03-2024 10:39-0400Systolic blood kylryewp650 mm[Hg]Bari Zepeda MD Work Phone: 1(810)[address] [place], [place] 2663804-22-2024 09:18-0400Diastolic blood mm[Hg]Hill Jacobsen Work Phone: [facility]79-02-0105 09:18-0400Heart rate 101 /minHill Jacobsen Work Phone: [facility] Bzjj97-31-0491 09:18-0400Respiratory rate12 /minHill Jacobsen Work Phone: [facility] Jwwr03-97-8553 09:18-0400Systolic blood unodyatl746 mm[Hg]Hill Jacobsen Work Phone: [facility] Rwjk11-26-7035 14:27-0400Body height 180.3 cmCheri Stephen MD Work Phone: [facility]03-15-2024 14:27-0400Body mass index (BMI) [Ratio]20.04 kg/f8GgrbijCheri Stephen MD Work Phone: [facility]03-15-2024 14:27-0400Body frkwor64.18 kgCheri Stephen MD Work Phone: [facility]03-15-2024 14:27-0400 Diastolic blood lownatqs87 mm[Hg]Cheri Stephen MD Work Phone: [facility]03-15-2024 14:27-0400Systolic blood fbsoalhv781 mm[Hg]Cheri Stephen MD Work Phone: [facility]01-26-2024 11:30-0500Body xayzea989.34 cmLucila Arnett Other [facility]01-26-2024 11:30-0500 Body mass index (BMI) [Ratio]20.92 kg/f4BxdwwuwqLucila Dasilvar Other [employer] Other 01-26-2024 11:30-0500Body zekojy04.04 kgLucila Arnett Other [employer] Other 01-26-2024 11:30-0500Body wpffew17.03 kg[facility]01-26-2024 11:30-0500Diastolic blood mm[Hg] Lucila Arnett Other [facility]01-26-2024 11:30-0500 Respiratory rate16 /minLucila Arnett Other [employer] Other 01-26-2024 11:30-4244WtF5% (BldA) [Mass fraction]100 % Lucila Arnett Other [employer] Other 01-26-2024 11:30-0500Systolic blood ofxrgqcy509 mm[Hg] Lucila Arnett Other [facility]12-15-2023 10:00-0500 Body .34 cmLucila Melquiades Other [employer] Other 12-15-2023 10:00-0500Body mass index (BMI) [Ratio] 20.78 kg/l3Ikgppexf Melquiades Other [employer] Other 12-15-2023 10:00-0500Body ijctku70.59 kgLuicla Melquiades Other [employer] Other 12-15-2023 10:00-0500Diastolic blood epvnyysg77 mm[Hg] Lucila Melquiades Other [employer] Other 12-15-2023 10:00-5184VyI2% (BldA) [Mass fraction]98 % Lucila Melquiades Other [employer] Other 12-15-2023 10:00-0500Systolic blood wdmdwrda196 mm[Hg] Lucila Melquiades Other [employer] Other Encounters Encounter DateEncounter TypeCare ProviderFacilityStart: 06-29-2025 End: 05-74-7867Ldagdxghm Result EncounterCorey Marybeth DO Work Phone: noms External Department UnsolicitedStart: 06-29-2025 End: 20-75-3505Oujkiojea Result EncounterCorey Marybeth DO Work Phone: noms External Department UnsolicitedStart: 06-24-2025 End: 74-51-1067elcibtvnfwLjrasrzu Melquiades DIRECT CARE PROFESSIONAL Work Phone: [facility]: 06-24-2025 End: 88-84-8016Sezvdrn encounter procedureLucila Arnett APRN [facility] Work Phone: Start: 06-22-2025 End: 56-94-9599Xzwjsw flowsheetCorey Marybeth DO Work Phone: noms [place] OBGYNStart: 06-22-2025 End: 99-26-5137Ibuonn flowsheetCorey Marybeth DO Work Phone: noms [place] OBGYNStart: 06-22-2025 End: 66-32-0416eudzzekydmZSNKG FAZIONot AvailableStart: 06-22-2025 End: 92-18-6992Ckxjxh outpatient visit 15 minutesCorey Marybeth DO Work Phone: noms [place] OBGYNComment on above:Dysmenorrhea; Abnormal uterine bleeding (AUB); Bleeding disorder; PCOS (polycystic ovarian syndrome); Pelvic pain in femaleStart: 01-08-2025 End: 63-23-4213wiorxvmtprZQJWKSQ R LACONISNot AvailableStart: 01-08-2025 End: 66-86-1849Mdvcdic encounter procedureLeonel Zambrano Rosablack DO Work Phone: noms SWS UCComment on above:Encounter for drug screeningStart: 12-30-2024 End: 44-74-8904skbztsdicjWulwmnpfeWright[facility] Work Phone: Start: 12-30-2024 End: 70-32-7476Hpbzmzp encounter procedureFirdamir Physician Group-[facility] Work Phone: Start: 10-27-2024 End: 48-42-5796kibsrrylujVnuyaubs Rohrbacher APRN Work Phone: [facility] Work Phone: Start: 10-27-2024 End: 65-98-1992Tsfdgtd encounter procedureLucila Arnett APRN Work Phone: [facility] Work Phone: Start: 09-12-2024 End: 93-36-9720lvqozqukybMluhyszn Rohelíasacher DIRECT CARE PROFESSIONAL Work Phone: [facility] Work Phone: Start: 09-12-2024 End: 50-18-1464Boffhrr encounter procedureJerosiokatrina Steveacher DIRECT CARE PROFESSIONAL Work Phone: [facility] Work Phone: Start: 09-08-2024 End: 95-97-4584bcbrvqneggPodvcoyx Rohrbacher DIRECT CARE PROFESSIONAL Work Phone: [facility] Work Phone: Start: 09-08-2024 End: 53-48-0232Bvpvbfxw ReferredRandellrosiokatrina Steveachealaina DIRECT CARE PROFESSIONAL Work Phone: [facility] [place] Work Phone: Start: 09-08-2024 End: 14-88-5243flrtkgmbjpHrhuyhpceW[facility] Work Phone: Start: 09-08-2024 End: 91-34-2818Ohcflqn encounter procedureFormerly [facility] Work Phone: Start: 08-29-2024 End: 55-86-6211Xtavrnski Result EncounterCorey Marybeth DO Work Phone: noms External Department UnsolicitedStart: 08-29-2024 End: 46-11-4353Lxfxiepnc Result EncounterCorey Marybeth DO Work Phone: noms External Department UnsolicitedStart: 08-29-2024 Non-patient / Non-visitFormerly [facility] Work Phone: Start: 08-27-2024 End: 85-03-4604Wdprdc outpatient visit 15 minutesCorey Marybeth DO Work Phone: noms BCP OBComment on above:Pre-op examination; Request for sterilization; Hormone imbalance; Swelling; Mood disorder (CMS/HCC)Start: 08-27-2024 End: 90-89-1471Xmoqwpznvlhgw examination doneCorey Marybeth DO Work Phone: noms HealthcareStart: 08-27-2024 End: 09-44-6231wantjcixesJSGWP FAZIONot AvailableStart: 08-01-2024 End: 04-63-8888Vwftgpume Result EncounterCorey Marybeth DO Work Phone: noms External Department UnsolicitedStart: 08-01-2024 End: 09-29-7470Ebcitwqrx Result EncounterCorey Marybeth DO Work Phone: noms External Department UnsolicitedStart: 08-01-2024 Non-patient / Non-visitFirdamir Physician GroupPeacehealth [facility] Work Phone: Start: 07-30-2024 End: 43-63-3297Vrpbtr flowsheetCorey Marybeth DO Work Phone: noms BCP OBStart: 07-30-2024 End: 05-17-6822Yjncdd flowsheetCorey Marybeth DO Work Phone: noms BCP OBStart: 07-30-2024 End: 19-83-4260Pvnwle outpatient visit 15 minutesCorey Marybeth DO Work Phone: noms BCP OBComment on above:Pelvic pain in female; state; Request for sterilization; EndometriosisStart: 07-30-2024 End: 24-69-4876rlpvrdbjqjZINAR FAZIONot AvailableStart: 07-16-2024 End: 11-60-9799Ntufnlt encounter procedureFirdamir Physician GroupB[facility] Work Phone: Start: 07-07-2024 End: 05-03-3647Xktjotyfb Result EncounterCorey Marybeth DO Work Phone: noms External Department UnsolicitedStart: 07-07-2024 End: 03-55-4743Zujvzmxps Result EncounterCorey Marybeth DO Work Phone: noms External Department UnsolicitedStart: 07-07-2024 Non-patient / Non-visitFormerly [facility] Physician [facility] Work Phone: Start: 07-06-2024 End: 97-23-1477Qpclkvaqd Result EncounterCorey Marybeth DO Work Phone: noms External Department UnsolicitedStart: 07-06-2024 End: 19-92-4668Sneaqctih Result EncounterCorey Marybeth DO Work Phone: noms External Department UnsolicitedStart: 07-06-2024 Non-patient / Non-visitFormerly [facility] Physician [facility] Work Phone: Start: 07-04-2024 End: 88-62-3861Kzckudlkx Result EncounterCorey Marybeth DO Work Phone: noms External Department UnsolicitedStart: 07-04-2024 End: 63-59-4199Blobhgfie Result EncounterCorey Marybeth DO Work Phone: noms External Department UnsolicitedStart: 06-30-2024 End: 90-74-0879Ptigwh flowsheetCorey Marybeth DO Work Phone: NOBM BCP OBStart: 06-30-2024 End: 84-96-2906Jeebvd flowsheetCorey Marybeth DO Work Phone: NOJP BCP OBStart: 06-30-2024 End: 82-96-5503Rkzxwnhot Result EncounterCorey Marybeth DO Work Phone: noms External Department UnsolicitedStart: 06-30-2024 End: 16-07-4860Helxvm outpatient visit 15 minutesCorey Marybeth DO Work Phone: NOEQ BCP OBComment on above:Third trimester Start: 06-30-2024 End: 83-56-2908cxfmbbalisJZGYR FAZIONot AvailableStart: 06-27-2024 End: 76-29-0559Kwmzzlgmq Result EncounterCorey Marybeth DO Work Phone: noms External Department UnsolicitedStart: 06-27-2024 End: 66-72-4633Wawejrvcz Result EncounterCorey Marybeth DO Work Phone: noms External Department UnsolicitedStart: 06-23-2024 End: 45-84-7982Ptnmcq flowsheetCorey Marybeht DO Work Phone: NOSF BCP OBStart: 06-23-2024 End: 62-06-2022Xifovq flowsheetCorey Marybeth DO Work Phone: NOJV BCP OBStart: 06-23-2024 End: 56-44-0995Ftirzq outpatient visit 15 minutesCorey Marybeth DO Work Phone: noms [facility] OBComment on above:Third trimester ; 35 weeks gestation of pregnancyStart: 09-68-7901Lsq-patient / Non-visitFircarilion [facility] Work Phone: Start: 06-20-2024 End: 85-60-1901Xptsudhjp Result EncounterCorey Marybeth DO Work Phone: noms External Department UnsolicitedStart: 06-20-2024 End: 78-39-1844Rlyugfekk Result EncounterCorey Marybeth DO Work Phone: noms External Department UnsolicitedStart: 06-14-2024 End: 77-36-7632Yqzwtheuv Result EncounterCorey Marybeth DO Work Phone: noms External Department UnsolicitedStart: 06-14-2024 End: 67-37-5037Ybxcwuxwn Result EncounterCorey Marybeth DO Work Phone: noms External Department UnsolicitedStart: 06-06-2024 End: 96-58-2184Rdarnlrax Result EncounterCorey Marybeth DO Work Phone: NOMS External Department UnsolicitedStart: 06-06-2024 End: 74-41-6344Fgcwmfwcr Result EncounterCorey Marybeth DO Work Phone: noms External Department UnsolicitedStart: 06-05-2024 End: 01-68-9680Tkrrly flowsheetCorey Marybeth DO Work Phone: NOKW BCP OBStart: 06-05-2024 End: 29-79-5406Seuviu flowsheetCorey Marybeth DO Work Phone: NOMR BCP OBStart: 06-05-2024 End: 36-87-0848Mxnqjzzln Result EncounterCorey Marybeth DO Work Phone: noms External Department UnsolicitedStart: 06-05-2024 End: 56-18-5635Owcdcb outpatient visit 15 minutesCorey Marybeth DO Work Phone: NOHO BCP OBComment on above:32 weeks gestation of ; Third trimester ; H/O delivery, currently , first trimester; Pelvic pain in female; Cluster headache, not intractable, unspecified chronicity pattern; Bilateral leg painStart: 05-30-2024 End: 79-97-7527Pynyyntjv Result EncounterCorey Marybeth DO Work Phone: noms External Department UnsolicitedStart: 05-30-2024 End: 88-58-3608Djrpmlrrj Result EncounterCorey Marybeth DO Work Phone: noms External Department UnsolicitedStart: 05-19-2024 End: 69-85-2977Umufqv flowsheetCorey Marybeth DO Work Phone: NOMS BCP OBStart: 05-19-2024 End: 97-96-6532Ihligz flowsheetCorey Marybeth DO Work Phone: NOMS BCP OBStart: 05-19-2024 End: 67-30-1155Ujzfck outpatient visit 15 minutesCorey Marybeth DO Work Phone: noms BCP OBComment on above:Third trimester ; 30 weeks gestation of ; H/O delivery, currently , first trimester; Abdominal pain affecting ; Pelvic pain in female; Prior with placenta abruption in third trimester, antepartum; Other insomniaStart: 05-14-2024 End: 11-53-6781Yelyvrbdh Result EncounterCorey Marybeth DO Work Phone: noms External Department UnsolicitedStart: 05-14-2024 End: 57-53-0698Hydgegvmm Result EncounterCorey Marybeth DO Work Phone: noms External Department UnsolicitedStart: 05-08-2024 End: 13-19-0680Cgxfvg flowsheetCorey Marybeth DO Work Phone: noms BCP OBStart: 05-08-2024 End: 74-45-8652Vxzugl flowsheetCorey Marybeth DO Work Phone: noms BCP OBStart: 05-08-2024 End: 61-23-7388Znczvhkfq Result EncounterCorey Marybeth DO Work Phone: noms External Department UnsolicitedStart: 05-08-2024 End: 06-51-0939Nlmuhm outpatient visit 15 minutesCorey Marybeth DO Work Phone: noms [facility] OBComment on above:Third trimester ; Pelvic pain in female; History of placenta abruption; Dizziness; H/O delivery, currently ; Cluster headache, not intractable, unspecified chronicity pattern; History of miscarriage; Abdominal pain affecting ; Bilateral leg pain; Right hip pain; Low ironStart: 05-03-2024 End: 23-20-6096Rzakuvnnj Result EncounterCorey Marybeth DO Work Phone: noms External Department UnsolicitedStart: 05-03-2024 End: 05-31-5698Ovprbqtfd Result EncounterCorey Marybeth DO Work Phone: noms External Department UnsolicitedStart: 04-24-2024 End: 61-51-7911Hhwxup flowsheetCorey Marybeth DO Work Phone: noms [facility] OBStart: 04-24-2024 End: 23-29-3539Mgfqhu flowsheetCorey Marybeth DO Work Phone: noms [facility] OBStart: 04-24-2024 End: 20-85-9276Xvlnduids Result EncounterCorey Marybeth AOTMP Work Phone: noms External Department UnsolicitedStart: 04-24-2024 End: 04-40-6716Hqplud outpatient visit 15 minutesCorey Marybeth DO Work Phone: noms [facility] OBComment on above:26 weeks gestation of ; Gestational diabetes mellitus (GDM), antepartum, gestational diabetes method of control unspecified; Elevated glucose tolerance test; Abdominal pain affecting ; H/O delivery, currently , first trimester; Right hip pain; Prior with placenta abruption in third trimester, antepartum; Pelvic pain in female; Bilateral leg pain; Diabetes mellitus screeningStart: 04-10-2024 End: 78-92-1611Deuonk flowsheetCorey Marybeth DO Work Phone: noms [facility] OBStart: 04-10-2024 End: 95-40-4473Mfnuzu flowsheetCorey Marybeth DO Work Phone: noms [facility] OBStart: 04-10-2024 End: 49-74-4059Szwaiu outpatient visit 15 minutesCorey Marybeth DO Work Phone: noms [facility] OBComment on above:24 weeks gestation of ; Right hip pain; Pelvic pain in female; Abdominal pain affecting ; Prior with placenta abruption in third trimester, antepartum; Bilateral leg painStart: 03-31-2024 End: 27-76-1058iitsxxppcuTBHTG R FAZIMaimonides Midwood Community Hospitalca [facility]ito HospitalStart: 03-25-2024 End: 69-89-0168xdxqyspogaEEPUY R FAZIConway Medical CenterMedica El Rito HospitalStart: 03-20-2024 End: 42-21-5548Sxpeqd OnlyNot In System Ref ProvMaternal- Medicine at [facility] Centertart: 03-13-2024 End: 02-01-8934Sbelznvla Result EncounterCorey Marybeth DO Work Phone: noms External Department UnsolicitedStart: 03-13-2024 End: 86-52-1680Tmtxlwgxt Result EncounterCorey Marybeth DO Work Phone: noms External Department UnsolicitedStart: 02-25-2024 End: 73-32-9117Fjubbf outpatient visit 25 minutesTammy Horne MD Work Phone: [phone]-Uhxaf Medicine at [facility] Comment on above:18 weeks gestation of (Primary Dx); Echogenic intracardiac focus of fetus on ultrasound; Placental abnormality in second trimester; History of placenta abruption; History of delivery, currently Start: 02-25-2024 End: 30-65-7448vpdztcjxasWNPIOKindred Healthcaretart: 01-21-2024 End: 69-76-3725Iranda outpatient new 60 minutesBari Zepeda MD Work Phone: [phone]-Kgxld Medicine at [facility] Comment on above:History of delivery, currently in first trimester (Primary Dx); Prior with placenta abruption in first trimester, antepartumStart: 01-21-2024 End: 50-55-9643wbusfpqxkqSTXIM [facility] Hospitaltart: 01-11-2024 End: 48-32-0739Twuptt OnlyNot In System Ref ProvMaternal- Medicine at [facility] Centertart: 12-26-2023 End: 47-58-5311Izsufznng Result EncounterCorey Marybeth DO Work Phone: noms External Department UnsolicitedStart: 12-26-2023 End: 79-73-3957Ngkaugscy Result EncounterCorey Marybeth DO Work Phone: noms External Department UnsolicitedStart: 12-13-2023 End: 69-95-6617Rxkhdenff Result EncounterCorey Marybeth DO Work Phone: noms External Department UnsolicitedStart: 12-13-2023 End: 31-23-7979Dxzapfxat Result EncounterCorey Marybeth DO Work Phone: NOFZ External Department UnsolicitedStart: 12-10-2023 End: 59-01-6344wabonlhdtiWCICH KATZMount Odilia Orozco [facility] HospitalStart: 12-10-2023 End: 51-71-5245Pbeiculsh Margaret Jacobsen Work Phone: MOSES PeachamStart: 12-06-2023 End: 51-74-8519ebasodmmgsRJCSL KATZMount Moreno ValleyPark Nicollet Methodist HospitalStart: 12-03-2023 End: 55-62-2612iuscibhsusSNAIY KATZMount Odilia [facility]: 11-29-2023 End: 57-63-4063nxsepnqhvdHLOWL KATZMount OdiliaWheaton Medical Centerart: 11-26-2023 End: 78-30-7752tuksesxwlkMCSUT KATZMount OdiliaAitkin Hospital: 11-23-2023 End: 14-32-1933jnbepldwcgYRXKJ KATZMount Moreno ValleyAitkin Hospital: 11-21-2023 End: 66-33-2819bjkxznudppCFCZX KATZMount Moreno ValleyAitkin Hospital: 11-19-2023 End: 49-30-7928fxpkbidjoeJKW LUCILA STEPHENSONacility:FTMCStart: 11-19-2023 End: 33-37-8725Iazbvei encounter procedureLUCILA ARNETT [place] Start: 11-14-2023 End: 98-28-7465kwsmmffhhvMnvnfexblWright-Patterson [facility] Center Work Phone: Start: 11-14-2023 End: 10-58-2407Aathqqr encounter procedureFircarilion roanoke memorial [facility] Physician GroupDayton Children's Hospital Work Phone: Start: 21-66-8512mkbihwryfpFPZBGU MISALFacility:BARI Start: 11-02-2023 End: 51-85-0994Ogadgs outpatient new 60 minutesMeed Stephen MD Work Phone: [facility] [place] Comment on above:Endometriosis (Primary Dx); Pelvic pain; Myalgia of pelvic floor; Dysmenorrhea; Dyspareunia in female; Nausea and vomiting, unspecified vomiting type; Bladder pain; AnxietyStart: 10-17-2023 End: 29-40-4497Wuvzgoi encounter procedureMert [facility]ician [facility] Work Phone: Start: 09-14-2023 End: 84-37-2953ajayphmfgmDyoaditj Rohrbacher Other [employer] Other Start: 83-81-6593Skzfzu outpatient visit 25 minutes Lucila German [facility]: 09-14-2023 End: 72-78-9931Xgtryvd encounter procedureMert Physician Group-Start: 08-09-2023 End: 25-74-2966gpgyunasjnQqioyivv Rohrbacher Other [employer] Other Start: 13-48-3331Rjyzvqakj encounterLucila German [facility] Centertart: 08-03-2023 End: 21-35-6134nggkrjqwyvOwbnbajb Rohrbacher Other [employer] Other Start: 60-24-6085Gzpmpp outpatient new 30 minutes Lucila German [facility]art: 43-07-0940Dsoninxux encounter Lucila German Referral CoordinatorStart: 07-12-2020 End: 29-61-8179jffcfljsdaWD MOI FAZIOFacility:P6Xkhvd: 06-25-2020 End: 79-72-5903lptfbzsjmwGE MOI FAZIOFacility:J8Ibqeg: 04-30-2020 End: 82-49-4939mdtknvoixgMK MOI FAZIOFacility:C6Nsbri: 04-29-2020 End: 63-93-6923qcolwbfoaaKZ MOI FAZIOFacility:H1 Procedures DateProcedureProcedure DetailPerforming ClinicianStart: 68-07-3019QKS CBC WITH AUTO DIFFCorey Marybeth DO Work Phone: Start: 99-50-2068GFZ CBC WITH AUTO DIFFCorey Marybeth DO Work Phone: Start: 84-69-2308CV PELVIS TRANSVAGINALCorey Marybeth DO Work Phone: Start: 75-45-3514YCP CBC WITH AUTO DIFFCorey Marybeth DO Work Phone: Start: 95-10-2944Ciwsu dip stick/tablet rgnt non-auto w/o micrscpCorey Marybeth DO Work Phone: Start: 56-29-7484RSB CBC WITH AUTO DIFFCorey Marybeth DO Work Phone: Start: 01-00-2782UWTC CBC WITH PLATELET NO DIFFERENTIALCorey Marybeth DO Work Phone: Start: 58-95-1119DHS DRUG SCREEN RAPID (URINE)Moi Marybeth DO Work Phone: Start: 22-44-2079PD OB BPP W NON-STRESSCorey Marybeth DO Work Phone: Start: 11-73-5624Yyjpd dip stick/tablet rgnt non-auto w/o micrscpCorey Marybeth DO Work Phone: Start: 84-38-8865ZB OB GROWTHCorey Marybeth DO Work Phone: Start: 84-83-7573JK OB BPP W NON-STRESSCorey Marybeth DO Work Phone: Start: 84-96-8687Concd Gp B NAAStart: 08-39-2369Ywzvh dip stick/tablet rgnt non-auto w/o micrscpCorey Maryebth DO Work Phone: Start: 38-57-0449KM OB BPP W NON-STRESSCorey Marybeth DO Work Phone: Start: 27-57-8654KU OB BPP W NON-STRESSCorey Marybeth DO Work Phone: Start: 53-56-0323IP OB CERVICAL LENGTHCorey Marybeth DO Work Phone: Start: 82-27-2131MP OB BPP W NON-STRESSCorey Marybeth DO Work Phone: Start: 69-53-3412GV OB GROWTHCorey Marybeth DO Work Phone: Start: 71-69-4658Zjxhy dip stick/tablet rgnt non-auto w/o micrscpCorey Marybeth DO Work Phone: Start: 43-79-2433YO OB BPP W NON-STRESSCorey Marybeth DO Work Phone: Start: 88-49-5316Hgjpj dip stick/tablet rgnt non-auto w/o micrscpCorey Marybeth DO Work Phone: Start: 15-19-5951EF OB CERVICAL LENGTHCorey Marybeth DO Work Phone: Start: 43-78-7900DB OB GROWTHCorey Marybeth DO Work Phone: Start: 96-77-4248Ftfgo dip stick/tablet rgnt non-auto w/o micrscpCorey Marybeth DO Work Phone: Start: 07-27-9202LRB CBC WITH AUTO DIFFCorey Marybeth DO Work Phone: Start: 39-19-1066Ogogh dip stick/tablet rgnt non-auto w/o micrscpCorey Marybeth DO Work Phone: Start: 15-61-5801AEE CBC WITH AUTO DIFFCorey Marybeth DO Work Phone: Start: 56-25-5575Mnnib dip stick/tablet rgnt non-auto w/o micrscpCorey Marybeth DO Work Phone: Start: 41-37-2770BNSWCRUNJN OFFICENot In System Ref ProvStart: 88-22-7260AA OB CERVICAL LENGTHCorey Marybeth DO Work Phone: Start: 58-43-0401AV APPENDIXCorey Marybeth DO Work Phone: Start: 05-62-6951VR OB TRANSVAGINALCorey Marybeth DO Work Phone: Start: 50-10-6600BU OB TRANSVAGINALCorey Marybeth DO Work Phone: Start: 77-47-9752FEJAPBHDQN OFFICENot In System Ref ProvStart: 44-13-5333Hbsaz extractionJENNIFER ROHRBACHER uterine ablationJENNIFER ROHRBACHER Plan of Treatment DateCare ActivityDetailAuthorStart: 06-22-2025 End: 51-62-8904Hxmqxbxlagcu IIIAntithrombin III Lab Routine Dysmenorrhea Abnormal uterine bleeding (AUB) Pelvic pain in female Expected: 06/22/2025 (Approximate), Expires: 06/22/2026[facility] HealthcareComment on above:Expected: 06/22/2025 (Approximate), Expires: 06/22/2026Start: 06-22-2025 End: 24-76-7379Zzez-2 glycoprotein antibodiesBeta-2 glycoprotein antibodies Lab Routine Dysmenorrhea Abnormal uterine bleeding (AUB) Pelvic painin female Expected: 06/22/2025 (Approximate), Expires: 06/22/2026[facility] HealthcareComment on above:Expected: 06/22/2025 (Approximate), Expires: 06/22/2026Start: 06-22-2025 End: 40-99-6646Acmlnnqqthp antibody, IgGCardiolipin antibody, IgG Lab Routine Dysmenorrhea Abnormal uterine bleeding (AUB) Pelvic pain in female Expected: 06/22/2025 (Approximate), Expires: 06/22/2026[facility] HealthcareComment on above: Expected: 06/22/2025 (Approximate), Expires: 06/22/2026Start: 06-22-2025 End: 09-99-6163Dndzsyxdpup antibody, IgMCardiolipin antibody, IgM Lab Routine Dysmenorrhea Abnormal uterine bleeding (AUB) Pelvic pain in female Expected: 06/22/2025 (Approximate), Expires: 06/22/2026NO[facility] HealthcareComment on above: Expected: 06/22/2025 (Approximate), Expires: 06/22/2026Start: 06-22-2025 End: 11-84-9311RARESPYF Lab Routine Dysmenorrhea Abnormal uterine bleeding (AUB) Pelvic pain in female Expected: 06/22/2025 (Approximate), Expires: 06/22/2026 [facility] HealthcareComment on above:Expected: 06/22/2025 (Approximate), Expires: 06/22/2026Start: 06-22-2025 End: 58-64-7347SAEAGFPHZA Lab Routine Dysmenorrhea Abnormal uterine bleeding (AUB) Pelvic pain in female Expected: 06/22/2025 (Approximate), Expires: 06/22/2026[facility] HealthcareComment on above:Expected: 06/22/2025 (Approximate), Expires: 06/22/2026Start: 06-22-2025 End: 86-50-5297Oguzyz 5 leidenFactor 5 leiden Lab Routine Dysmenorrhea Abnormal uterine bleeding (AUB) Pelvic pain in female Expected: 06/22/2025 (Approximate), Expires: 06/22/2026[facility] Healthcare Work Phone: comment on above:Expected: 06/22/2025 (Approximate), Expires: 06/22/2026Start: 06-22-2025 End: 95-04-0163Pvwrozd [Mass/volume] in Serum or PlasmaProtein, total Lab Routine Dysmenorrhea Abnormal uterine bleeding (AUB) Pelvic pain in female Expected: 06/22/2025 (Approximate), Expires: 06/22/2026[facility] HealthcareComment on above:Expected: 06/22/2025 (Approximate), Expires: 06/22/2026Start: 06-22-2025 End: 23-63-3260Bhkvsnj C activityProtein C activity Lab Routine Dysmenorrhea Abnormal uterine bleeding (AUB) Pelvic pain in female Expected: 06/22/2025 (Approximate), Expires: 06/22/2026[facility] HealthcareComment on above:Expected: 06/22/2025 (Approximate), Expires: 06/22/2026Start: 06-22-2025 End: 06-57-2385Xcqvsqg S antigen, freeProtein S antigen, free Lab Routine Dysmenorrhea Abnormal uterine bleeding (AUB) Pelvic pain in female Expected: 06/22/2025 (Approximate), Expires: 06/22/2026[facility] HealthcareComment on above: Expected: 06/22/2025 (Approximate), Expires: 06/22/2026Start: 06-22-2025 End: 80-16-2074NX PelvisUS Pelvis w/ TV Imaging Routine Dysmenorrhea Abnormal uterine bleeding (AUB) Pelvic pain in female Expected: 06/22/2025, Expires: 06/22/2026[facility] HealthcareComment on above:Expected: 06/22/2025, Expires: 06/22/2026Start: 06-22-2025 End: 31-25-9616Srbrwvu encounter tezqikgcn80/03/2025 1:00 PM EST Office Visit CULLEN GARSIA [address] [place] [phone] Moi Rueda DO [address] [place] [address] [facility] He OBGYNStart: 06-32-0994BMNAO- 19 Vaccine ( season)COVID-19 Vaccine ( season)[facility] HealthcareStart: 20-39-2771FUXGB-19 Vaccine ( season)COVID-19 Vaccine ( season)[facility] HealthcareStart: 45-11-0649Ntgogqxku vaccinationNOAK HealthcareStart: 10-26-8775Iqstc BMI ScreeningAdult BMI ScreeningProNationwide Children'S Hospital SystemStart: 48-45-9532Hwgrxke ScreeningTobacco ScreeningProNewark Hospitaltart: 56-92-2699Smdvr BMI ScreeningAdult BMI ScreeningProNewark Hospitaltart: 14-96-4160Cgrisbm ScreeningTobacco ScreeningProNationwide Children'S Hospital System Start: 75-57-4480Kubmekc referralDunlap Memorial Hospital Work Phone: Start: 08-30-5726Vqqcbxp referralDunlap Memorial Hospital Work Phone: Start: 10-02-2024 End: 82-44-0673Vkqgfpq encounter kshetlzcw81/13/2025 11:20 AM EST Office Visit NOMS [facility] OB [address] [place] [phone] Moi Rueda, DO [address] [place] [address] NOMS [facility] OBStart: 95-36-2016YubefqkbiCleveland Clinic Akron Generaltart: 33-85-1206Pahdwwa [facility] Work Phone: Start: 08-27-2024 End: 69-48-5968Agwf nitrogen [Mass/volume] in Serum or PlasmaBUN Lab Routine Hormone imbalance Swelling Expected: 08/27/2024 (Approximate), Expires: 08/27/2025[facility] HealthcareComment on above:Expected: 08/27/2024 (Approximate), Expires: 08/27/2025Start: 08-27-2024 End: 85-81-7540wjimhmilno54/08/2025 1:20 PM EST Visit NOMS [facility] OB [address] [place] [phone] Moi Rueda, DO [address] [place] [address] NOMS BCP OBStart: 07-30-2024 End: 60-11-6302BNAKHTHY(R) ADVANCED VAGINITIS PLUS, TMASURESWAB(R) ADVANCED VAGINITIS PLUS, TMA Pathology and Cytology Routine Pelvic pain in female Expect ed: 07/30/2024 (Approximate), Expires: 07/30/2025[facility] Work Phone: comment on above:Expected: 07/30/2024 (Approximate), Expires: 07/30/2025Start: 07-30-2024 End: 50-09-9921BK for pregnancyUS PELVIS-TRANSVAG IF INDICATED Imaging Routine Pelvic pain in female Expected: 07/30/2024 (Approximate), Expires: 07/30/2025 [facility] HealthcareComment on above:Expected: 07/30/2024 (Approximate), Expires: 07/30/2025Start: 07-30-2024 End: 97-30-3311Heonepr encounter jioobwmlz34/11/2024 1:20 PM EST Office Visit NOMS [facility] OB [address] [place] [address] Moi Rueda, DO [address] [place], [place] [id number] [facility]rivedNOENLOE [facility] OBComment on above:ArrivedStart: 06-30-2024 End: 64-24-0163Evipwhf encounter nfzemofrn85/11/2024 10:30 AM EST Routine NOMS [facility] OB [address] [place] [phone] Moi Rueda, DO [address] [place], [place] [id number] NOMS BCP OBStart: 06-30-2024 End: 73-46-0714Nwdspyerukzv / ancillary services djlavdohqd21/11/2024 10:00 AM EST Ancillary Procedure [facility] [address] [place], [place] [phone] NOMS BCP OBStart: 06-23-2024 End: 69-62-4106Jncey B DNA probe, amplificationStrep B DNA probe, amplification Lab Routine Third trimester Expected: 06/23/2024 (Approximate), Expires: 06/23/2025[facility] Work Phone: comment on above:Expected: 06/23/2024 (Approximate), Expires: 06/23/2025Start: 06-23-2024 End: 70-55-6888Kyxhggy encounter procedureNOMS BCP OBComment on above:Arrived Start: 06-05-2024 End: 13-77-1109Ssljmab encounter procedureNOMS BCP OBComment on above:Arrived Start: 06-05-2024 End: 24-23-2289Lkuohfblrcqe / ancillary services xyqedlfpsa16/17/2024 10:00 AM EDT Ancillary Procedure [facility] [address] [place], [place] [address] NOMS BCP OBStart: 05-19-2024 End: 22-45-7695TB biophysical profile w non stress testUS biophysical profile w non stress test Imaging Routine H/O delivery, currently , first trimester Abdominal pain affecting Pelvic pain in female Prior with placenta abruption in third trimester, antepartum Expected: 05/19/2024 (Approximate), Expires: 05/19/2025[facility] Work Phone: comment on above:Expected: 05/19/2024 (Approximate), Expires: 05/19/2025Start: 05-19-2024 End: 28-59-7788Ttyccvj encounter procedureNOMS BCP OBComment on above:Arrived Start: 05-08-2024 End: 05-96-4317Ueamawy encounter lmbbkyvfc31/19/2024 11:10 AM EDT Routine [facility] [address] [place] [phone] Moi Rueda, DO [address] [place], [place] [phone] [facility]OMS BCP OBStart: 05-08-2024 End: 34-54-4058Skpsiyrfoekj / ancillary services ficxrfnqzf39/19/2024 10:30 AM EDT Ancillary Procedure [facility] [address] [place], [place] [phone] [facility]OMS BCP OBStart: 04-24-2024 End: 21-57-7821Jewbmmjtsfw of glucose 1 hour after glucose challenge for glucose tolerance testGlucose tolerance, 1 hour Lab Routine Elevated glucose tolerance test Diabetes mellitus screening Expected: 04/24/2024 (Approximate), Expires: 04/24/2025[facility] Work Phone: comment on above:Expected: 04/24/2024 (Approximate), Expires: 04/24/2025Start: 04-24-2024 End: 65-32-6756BJ for pregnancyUS OB SCAN FOR GROWTH Imaging Routine Elevated glucose tolerance test Abdominal pain affecting H/O delivery, currently , first trimester Prior with placenta a bruption in third trimester, antepartum Pelvic pain in female Expected: 04/24/2024 (Approximate), Expires: 04/24/2025[facility] HealthcareComment on above: Expected: 04/24/2024 (Approximate), Expires: 04/24/2025Start: 04-24-2024 End: 17-11-5920Hrvblsm encounter procedureCOMMUNITY HOSPITAL OF SAN [facility]ERNARDINO OBComment on above:Arrived Start: 91-52-2763Bllklwpyl vaccinationInfluenza VaccineMary [facility] Hospital System Start: 04-10-2024 End: 14-67-6423Qdlzcwx encounter xdugadegg94/22/2024 10:40 AM EDT Routine NOM[facility] OB [address] [place] [phone] Moi Rueda, DO [address] [place] [address] ArrivedCOMMUNITY HOSPITAL OF SAN [facility] OBComment on above: ArrivedStart: 03-25-2024 End: 06-79-4592Ictwqwh encounter xfuodqgrv51/06/2024 10:30 AM EDT Appointment [facility] [address] [place] [address] [phone] Hospital US ImagingStart: 03-11-2024 End: 65-93-7184Ujwczjo encounter czkoctbic91/ 10:45 AM EDT Appointment [facility] [address] [place] [address] [phone] Hospital US ImagingStart: 02-25-2024 End: 80-21-9390Eoknnsm encounter procedureProMercy Health St. [facility] US ImagingStart: 01-21-2024 End: 53-21-0702Qeouiti encounter procedureAvita Health System [facility] US ImagingStart: 35-51-7211JZO Vaccines (1 - 3-dose SCDM series)HPV Vaccines (1 - 3-dose SCDM series)[facility] HealthcareStart: 11-02-2023 End: 65-05-4209KA Pelvis WO and W contrast IVMRI PELVIS WITH AND WITHOUT CONTRAST Imaging Routine Endometriosis Pelvic pain Expected: 11/02/2023, Expires: 11/01/2024OSLima City HospitalComment on above:Expected: 11/02/2023, Expires: 11/01/2024Start: 50-88-4488Pldkykc [facility] Work Phone: Start: 62-40-5879TGINM-19 VACCINE (2022- season) COVID-19 VACCINE ( season)[facility]: 04-20-2023 Influenza vaccinationINFLUENZA VACCINE (#1)[facility]: 09-22-0330Gqcxwjbph for malignant neoplasm of cervixTrinity Health [facility] Start: 12-99-0070SUgD,Tdap and Td Vaccines (1 - Tdap)DTaP,Tdap and Td Vaccines (1 - Tdap)[facility], [facility]: 82-07-4858Ifjkuptai B vaccinationHEP B VACCINE (1 of 3 - 19+ 3-dose series)[facility]: 11-08-2015 Hepatitis B Vaccines (1 of 3 - 19+ 3-dose series)Hepatitis B Vaccines (1 of 3 - 19+ 3-dose series)[facility] HealthcareStart: 80-68-1805Pngar diphtheria, tetanus and acellular pertussis (DTaP) vaccinationTDAP (ADULT)[facility] Start: 34-82-2910Xcadi BMI ScreeningAdult BMI ScreeningMary [facility] System Start: 67-53-2899Gvpbaafxc for Chlamydia trachomatisCHLAMYDIA SCREENOSBerger Hospitaltart: 69-15-5098FRL screeningHIV SCREENING DISCUSSIONOSBerger Hospitaltart: 61-08-2297Vemqfdoleyv for human papillomavirusHPV VACCINE ADOL (1 - 3-dose series)OSBerger Hospitaltart: 44-63-6367Rqbehzl of varicella vaccinationVaricella Vaccines (1 of 2 - 13+ 2-dose series)[facility] HealthcareStart: 27-89-6160Ockngaynxr ScreeningDepression ScreeningFormerly [facility], [facility] Hospitaltart: 28-69-1054Oywldxt ScreeningTobacco ScreeningFormerly [facility], [facility] Hospitaltart: 31-53-7580OBkN/Tdap/Td Vaccines (1 - Tdap)DTaP/Tdap/Td Vaccines (1 - Tdap)[facility] HealthcareStart: 85-46-0104CZK Vaccines (1 of 1 - Standard series) MMR Vaccines (1 of 1 - Standard series)[facility] HealthcareStart: 65-24-3603Ctvajnlsi C screeningHEPATITIS C VIRUS SCREENINGOSBerger Hospitaltart: 98-18-6166Cpiokbmqa for Chlamydia trachomatisGONORRHEA SCREENOSBerger Hospitaltart: 18-68-9670Wkenglx vaccinationTETANUSOSLima City Hospital Alanine aminotransferase [Enzymatic activity/volume] in Serum or PlasmaALT Lab Routine Hormone imbalance Swelling Ordered: 08/27/2024[facility] HealthcareComment on above:Ordered: 08/27/2024spartate aminotransferase [Enzymatic activity/volume] in Serum or PlasmaAST Lab Routine Hormone imbalance Swelling Ordered: 08/27/2024 [facility] HealthcareComment on above:Ordered: 08/27/2024topobium vaginae DNA [Presence] in Vaginal fluid by ABBY with probe detectionDoctors HospitalBacterial vaginosis associated bacterium 2 DNA [Presence] in Vaginal fluid by ABBY with probe detectionDoctors HospitalCBC panel - Blood by Automated countCBC Lab Routine state Ordered: 07/30/2024[facility] HealthcareComment on above:Ordered: 4CBC W Auto Differential panel - BloodCBC and differential Lab Routine Hormone imbalance Swelling Ordered: 08/27/2024[facility] Work Phone: comment on above:Ordered: 08/27/2024BC W Auto Differential panel - BloodCBC and differential Lab Routine Dysmenorrhea Abnormal uterine bleeding (AUB) Pelvic pain in femaleOrdered: 06/22/2025[facility] Healthcare Comment on above:Ordered: 06/22/2025HLAMYDIA TRACHOMATIS (GENITO/STI)CHLAMYDIA TRACHOMATIS (GENITO/STI) Lab Routine Pelvic pain in female Ordered: 07/30/2024 [facility] HealthcareComment on above:Ordered: 07/30/2024reatinine [Mass/volume] in Serum or PlasmaCreatinine Lab Routine Hormone imbalance Swelling Ordered: 08/27/2024[facility] HealthcareComment on above:Ordered: 08/27/2024DHEA-sulfateDHEA- sulfate Lab Routine Dysmenorrhea Abnormal uterine bleeding (AUB) Pelvic pain in female Ordered: 06/22/2025[facility] HealthcareComment on above:Ordered: 06/22/2025 Follicle stimulating hormoneFollicle stimulating hormone Lab Routine Dysmenorrhea Abnormal uterine bleeding (AUB) Pelvic pain in female Ordered: 06/22/2025[facility] HealthcareComment on above:Ordered: 06/22/2025hCG, quantitative, pregnancyhCG, quantitative, Lab Routine Dysmenorrhea Abnormal uterine bleeding (AUB) Pelvic pain in female Ordered: 06/22/2025[facility] HealthcareComment on above:Ordered: 06/22/2025Hemoglobin A1c/Hemoglobin.total in BloodHemoglobin A1c Lab Routine Dysmenorrhea Abnormal uterine bleeding (AUB) Pelvic pain in female Ordered: 06/22/2025[facility] HealthcareComment on above:Ordered: 06/22/2025 Luteinizing hormoneLuteinizing hormone Lab Routine Dysmenorrhea Abnormal uterine bleeding (AUB) Pelvic pain in female Ordered: 06/22/2025[facility] HealthcareComment on above:Ordered: 06/22/2025Megasphaera sp type 1 DNA [Presence] in Vaginal fluid by ABBY with probe detectionDoctors HospitalNeisseria gonorrhoeae DNA [Presence] in Unspecified specimen by ABBY with probe detection Neisseria gonorrhea DNA probe, direct Lab Routine Pelvic pain in female Ordered: 07/30/2024[facility] HealthcareComment on above:Ordered: 07/30/2024atient referral [facility] Work Phone: Thyrotropin [Units/volume] in Serum or PlasmaTSH Lab Routine Hormone imbalance Swelling Ordered: 08/27/2024[facility] HealthcareComment on above:Ordered: 08/27/2024Thyrotropin [Units/volume] in Serum or PlasmaTSH Lab Routine Dysmenorrhea Abnormal uterine bleeding (AUB) Pelvic pain in female Ordered: 06/22/2025[facility] HealthcareComment on above:Ordered: 06/22/2025Thyroxine (T4) free [Mass/volume] in Serum or PlasmaT4, free Lab Routine Hormone imbalance Swelling Ordered: 08/27/2024[facility] HealthcareComment on above:Ordered: 08/27/2024 Thyroxine (T4) free [Mass/volume] in Serum or PlasmaT4, free Lab Routine Dysmenorrhea Abnormal uterine bleeding (AUB) Pelvic pain in female Ordered: 10/2024[facility] HealthcareComment on above:Ordered: 06/22/2025 Immunizations Immunization DateImmunizationNotesCare UlxdvnoaLlaolaib83-07-7966dshseswac virus vaccine, unspecified formulationMoi Rueda DO Work Phone: [facility] Payers DatePayer CategoryPayerPolicy [id number] Health Insurance[facility] [id number] 2024Medicaid ..[id number] [id number] 19-12-0706Ccyrfhnrce of Defense ( and others)[id number] Department of Defense ( and others) [id number] () Member Subscriber Plan / Payer (Effective 2023-2024) Name: Colton Medrano Relation to Subscriber: Spouse Name: LIDIA MEDRANO Date of : 1998 (Home) Address: [place] [address] Payer ID: [id number] (NAIC) Group ID: Not on file Type: Not on file Address: [address] [id number] 2..1.215279.3.57[id number] 2.1.433395.3.57[id number] 2..1.994568.3.57[id number] 2..1.844903.3.57[id number] 2..1.914941.3.57[id number] 2..1.416867.3.57[id number] 2.16.840.1.662269.3.57[id number] 2.16840.1.420057.3.57[id number] 2.16840.1.015818.3.57[id number] 2.840.1.877933.3.57[id number] 2.16840.1.325992.3.57[id number] 2.840.1.872877.3.57[id number] 2.840.1.103808.3.57[id number] 2.840.1.528190.3.57[id number] 2.840.1.166486.3.57[id number] 2.840.1.316982.3.57[id number] 2.840.1.805547.3.57[id number] 2.840.1.753167.3.57[id number] 2.840.1.882202.3.57[id number] 2.840.1.031238.3.57[id number] 2.16840.1.680591.3.57[id number] 2..840.1.537684.3.57[id number] 2..840.1.246247.3.57[id number] 2..840.1.263205.3.57[id number] 2.840.1.649358.3.579.2.904571-14-9820Cxkujcyimi of Defense ( and others)[id number] of Defense ( and others)[id number] Department of Defense ( and others)[id number] 2.840.1.574287.19Unknown [id number] 2..840.1.754280.3.579.2.531 Social History DateTypeDetailFacilityStart: 11-02-2023 End: 47-21-6290Kpw Assigned At BirthCherrington Hospital CenterStart: 11-02-2023 End: 81-32-4260Ngoyfql smoking status NHISNever smoked tobaccoOSRegency Hospital Cleveland East CenterStart: 11-02-2023 End: 75-93-2292Iqqbyvu use and exposureSmokeless tobacco non-userOSU [facility] CenterStart: 70-74-0711Ynfgsthbm beverage intakeLifetime non-drinker (finding)[facility] CenterStart: 11-02-2023 End: 08-01-9232Llshywu of Social functionOSU [facility] CenterStart: 12-99-9397Slx assigned at birthNot on fileOSRegency Hospital Cleveland East CenterStart: 13-80-6819Izo Assigned At Count Includes The [facility]'S HospitalFeKettering Health [facility] CenterStart: 91-42-3952Pwpgfen smoking status NHISUnknown if ever smokedOrthoAlliance of [place] Start: 03-43-1037Fotxszc intakeAlcohol Use DetailsOrthoAlliance of New YorkStart: 65-26-7009Jkiswm OrientationLesbian, lynch or homosexualOrthoAlliance of [place] Start: 30-21-7335ChbjfigzmWLLZ HealthcareStart: 09-08-2024 End: 24-34-7456KndHqspnh (finding)[facility] Generaltart: 01-21-2024 End: 01-76-7145Yzwovcdqd beverage intakeEx-drinker (finding)UGEtart: 25-86-5694Dkodfs the past 12 months we worried whether our food would run out before we got money to buy more.Never [employer] Procedure CodeEquipment CodeEquipment Original TextEquipment IdentifierDates1 strip by In Vitro route Daily Use in the morning prior to breakfast, 1 hour after each meal for atotal of 4times daily.[id number]: 04-24-2024 End: each by In Vitro route Daily Use to check FSBS four times daily [id number]: 04-24-2024 End: 05-24-2024 Clinical Notes 06-25-2020 to 06-22-2025 Note Date & XjkzPpqnPektkmhz07-16-1295 History of Present illness Narrative* Moi Rueda DO - 06/22/2025 1:00 PM [...] placenta abruption 01/03/2024 Nausea and vomiting in ([facility]) 01/03/2024 Heartburn during in first trimester ([facility]) 01/03/2024 H/O delivery, currently , first trimester ([facility]) 01/03/2024 Abdominal pain affecting ([facility]) 01/03/2024 First trimester ([facility]) 01/03/2024 Dizziness 01/03/2024 Pelvic pain in female 03/27/2024 Second trimester ([facility]) 03/27/2024 Diabetes mellitus screening 03/27/2024 24 weeks gestation of ([facility]) 04/10/2024 Prior with placenta abruption in third trimester, antepartum ([facility]) 04/10/2024 Resolved Ambulatory Problems Diagnosis Date [...] nursing note reviewed. Exam conducted with a cso present. 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 Pt verified by photo ID. documented in this [facility]03-10-2025 Evaluation note* Diagnosis Onset Date Resolution Status Admit Date Endometriosis acuteMarch 2024 10:18amEndometriosisacuteMay 2024 8:24am [facility] Work Phone: 1(289) 756-248501-20-2025 Chief complaint+Reason for visit Narrative * Chief Complaint Admit Date referral for psychologist September 08, 2024 1:36pm N89.8 September 08, 2024 3 :20pm VIRTUAL:Tooth Infection September 12 9:50am medical concerns October 27, 2024 10: 18am Reason for Visit Admit Date Endometriosis September 08, 2024 1 :36pm Generalized anxiety disorder August 1:36pm Obsessive compulsive disorder September 082024 1:36pm PTSD (post-traumatic stress disorder) Ja nuary 2024 1:36pm TBI (traumatic brain injury) August 1:36pm Vaginal discharge September 08, 2024 1 :36pm Tooth abscess September 12, 2024 9 :50am Endometriosis October 27, 2024 10: 18am [facility] Work Phone: 1(719) 597-471501-20-2025 Evaluation note* Diagnosis Onset Date Resolution Status Admit Date Endometriosis acuteJanuary 2024 1:36pmGeneralized anxiety disorderacuteJanuary 2024 1:36pmObsessive compulsive disorderacuteJanuary 2024 1:36pmPTSD (post-traumatic stress disorder)acuteJanuary 2024 1:36pmTBI (traumatic brain injury)acuteJanuary 2024 1:36pmVaginal dischargeacuteJanuary 2024 1:36pmTooth abscessacuteJanuary 2024 9:50amEndometriosisacuteMarch 2024 10:18am [facility] Work Phone: 1(963) 354-537001-20-2025 Hospital Discharge instructionsAmbulatory Orders* Disability Placard Time Frame: 09/08/24, Location: Determined By Patient * Referral to Psychiatry Time Frame: 09/08/24, Location: None Selected [facility] Work Phone: 1(763) 383-982801-08-2025 History of Present illness Narrative* Shreya Laughlin - 08/27/2024 1:20 PM EST Reason for Appointment: Patient ID: Colton Medrano is a 28 y.o. female who presents for Pre-op Visit Patient presents today for Pre Op/Post Follow Up appointment. Patient is scheduled to undergo Da Rosa Elena assisted Bilateral Laparoscopic Salpingectomy on 09/26/[address] Rueda at [facility]. MEDICATIONS Current Outpatient Medications Medication Instructions Alcohol Swabs (Alcohol Prep Pad) 70 % pads 1 Pad, Topical, Daily, Use four times daily to check FSBS. aspirin 81 mg, Daily Blood Glucose Monitoring Suppl ([employer] Glucometer) w/Device kit 1 kit, Does not [...] ondansetron 4 mg disintegrating tablet - Active Ulfdiztr-Gpo-Bp-FA ( 1 + IRON PO) Daily RT [...] Past Medical History: Diagnosis Date Anxiety Depression ([facility]) Endometriosis OCD (obsessive compulsive disorder) ([facility]) PTSD (post-traumatic stress disorder) ([facility]) Social [...] nursing note reviewed. Exam conducted with a cso present. Vitals: There is no height or [...] reviewed, and patient is to proceed to [facility] OR. Follow Up: Patient is to follow up between 1-2 weeks post op to assess proper healing and recovery from procedure. Documented by MARY Paulino on behalf of: Moi Rueda DO documented in this encounterHawthorn Children's Psychiatric [id number] History of Present illness Narrative* Noris Stout [...] ondansetron 4 mg disintegrating tablet - Active Aardmmoi-Ovl-Py-FA ( 1 + IRON PO) Daily RT [...] Past Medical History: Diagnosis Date Anxiety Depression ([facility]) Endometriosis OCD (obsessive compulsive disorder) ([facility]) PTSD (post-traumatic stress disorder) ([facility]) HISTORY PAST MEDICAL HISTORY SOCIAL HISTORY Past Medical History: Diagnosis Date Anxiety Depression ([facility]) Endometriosis OCD (obsessive compulsive disorder) ([facility]) PTSD (post-traumatic stress disorder) ([facility]) Social [...] nursing note reviewed. Exam conducted with a cso present. Vitals: There is no height or [...] of: Moi Rueda DO documented in this encounterHawthorn Children's Psychiatric [id number] Chief complaint+Reason for visit Narrative* Chief Complaint Admit Date Med f/u July 16, 2024 12:47pm referral for psychologist September 08, 2024 1:36pm Reason for Visit Admit Date Generalized anxiety disorder July 162023 12:47pm Endometriosis September 08, 2024 1 :36pm Generalized anxiety disorder August 1:36pm Obsessive compulsive disorder September 082024 1:36pm PTSD (post-traumatic stress disorder) [facility] 2024 1:36pm TBI (traumatic brain injury) August 1:36pm Vaginal discharge September 08, 2024 1 :36pm [facility] Work Phone: 1(843) 992-459511-27-2024 Chief complaint+Reason for visit Narrative * Chief Complaint Admit Date Med f/u July 16, 2024 12:47pm referral for psychologist September 08, 2024 1:36pm Vaginal Discharge September 08, 2024 3 :20pm Reason for Visit Admit Date Generalized anxiety disorder July 162023 12:47pm Endometriosis September 08, 2024 1 :36pm Generalized anxiety disorder August 1:36pm Obsessive compulsive disorder September 082024 1:36pm PTSD (post-traumatic stress disorder) [facility] 2024 1:36pm TBI (traumatic brain injury) August 1:36pm Vaginal discharge September 08, 2024 1 :36pm [facility] Work Phone: 1(535) 699-369011-27-2024 Chief complaint+Reason for visit Narrative * Chief [...] September 082024 1:36pm PTSD (post-traumatic stress disorder) [facility] 2024 1:36pm TBI (traumatic brain injury) August 1:36pm Vaginal discharge September 08, 2024 1 :36pm [facility] Work Phone: 1(706) 683-982811-27-2024 Evaluation note* Diagnosis Onset Date Resolution Status Admit Date Generalized anxiety disorder acuteNovember 2023 12:47pmEndometriosisacuteJanuary 2024 1:36pm Generalized anxiety disorderacuteAuguary 2024 1:36pmObsessive compulsive disorderacuteJanuary 2024 1:36pmPTSD (post-traumatic stress disorder)acute September 08, 2024 1:36pmTBI (traumatic brain injury)acuteSeptember 08, 2024 1:36pmVaginal dischargeacuteSeptember 08, 2024 1:36pm [facility] Work Phone: 1(643) 688-949111-11-2024 History of Present illness Narrative* Zakiya Traylor [...] ondansetron 4 mg disintegrating tablet - Active Ysuthgkw-Snp-Dz-FA ( 1 + IRON PO) Daily RT [...] Past Medical History: Diagnosis Date Anxiety Depression ([facility]/HCC) Endometriosis OCD (obsessive compulsive disorder) ([facility]/HCC) PTSD (post-traumatic stress disorder) ([facility]/HCC) HISTORY PAST MEDICAL HISTORY SOCIAL HISTORY Past Medical History: Diagnosis Date Anxiety Depression (CMS/HCC) Endometriosis OCD (obsessive compulsive disorder) ([facility]/HCC) PTSD (post-traumatic stress disorder) ([facility]) Social [...] nursing note reviewed. Exam conducted with a cso present. Vitals: There is no height or [...] leaving office and nursing called [facility] to confirm patient is on the books. Spoke with [employer] Advisor who will reach out to patients insurance company as patient voiced her employer is inquiring as to when patient is going to return to work . Patient to return to clinic for post appointment. Documented by Zakiya Traylor LPN on behalf of: Moi Rueda DO documented in this encounterHawthorn Children's Psychiatric [id number] History of Present illness Narrative* Zakiya Traylor [...] ondansetron 4 mg disintegrating tablet - Active Vrvdasfy-Bex-Yo-FA ( 1 + IRON PO) Daily RT [...] Past Medical History: Diagnosis Date Anxiety Depression ([facility]) Endometriosis OCD (obsessive compulsive disorder) ([facility]) PTSD (post-traumatic stress disorder) ([facility]) HISTORY PAST MEDICAL HISTORY SOCIAL HISTORY Past Medical History: Diagnosis Date Anxiety Depression ([facility]) Endometriosis OCD (obsessive compulsive disorder) ([facility]) PTSD (post-traumatic stress disorder) ([facility]) Social [...] nursing note reviewed. Exam conducted with a cso present. Vitals: There is no height or [...] having IOL on 07/06/24 @ 0000. Called [facility] FB and patient is on the books [...] of: Moi Rueda DO documented in this encounterHawthorn Children's Psychiatric [id number] History of Present illness Narrative* Zakiya Traylor [...] ondansetron 4 mg disintegrating tablet - Active Owjeyogm-Rea-Va-FA ( 1 + IRON PO) Daily RT [...] Depression (CMS/HCC) Endometriosis OCD (obsessive compulsive disorder) ([facility]) PTSD (post-traumatic stress disorder) ([facility]) HISTORY [...] nursing note reviewed. Exam conducted with a cso present. Vitals: There is no height or [...] of: Moi Rueda DO documented in this encounterHawthorn Children's Psychiatric [id number] History of Present illness Narrative* Zakiya Traylor [...] ondansetron 4 mg disintegrating tablet - Active Vyfcucrj-Seb-Nl-FA ( 1 + IRON PO) Oral, Daily [...] compulsive disorder) (CMS/HCC) PTSD (post-traumatic stress disorder) ([facility]) Social [...] nursing note reviewed. Exam conducted with a cso present. Vitals: There is no height or [...] of: Moi Rueda DO documented in this encounterHawthorn Children's Psychiatric [id number] History of Present illness Narrative* Zakiya Kymberly, MULTICRAFT OPERATOR - 05/08/2024 11:10 AM EDT Reason for Appointment: Patient ID: Colton Medrano is a 28 y.o. female who presents for Routine Visit Patient presents today for Return OB appointment. MEDICATIONS Current Outpatient Medications Medication Instructions Alcohol Swabs (Alcohol Prep Pad) 70 % pads 1 Pad, Topical, Daily, Use four times daily to check FSBS. aspirin 81 mg, Oral, Daily Blood Glucose Monitoring Suppl ([employer] Glucometer) w/Device kit 1 kit, Does not [...] before breakfast, Do not crush or chew. Ttqauwzl-Tde-La-FA ( 1 + IRON PO) Oral, Daily [...] Past Medical History: Diagnosis Date Anxiety Depression ([facility]/HCC) Endometriosis OCD (obsessive compulsive disorder) ([facility]/HCC) PTSD (post-traumatic stress disorder) ([facility]/HCC) HISTORY PAST MEDICAL HISTORY SOCIAL HISTORY Past Medical History: Diagnosis Date Anxiety Depression (CMS/HCC) Endometriosis OCD (obsessive compulsive disorder) ([facility]/HCC) PTSD (post-traumatic stress disorder) ([facility]) Social [...] nursing note reviewed. Exam conducted with a cso present. Vitals: There is no height or [...] of: Moi Rueda DO documented in this encounterHawthorn Children's Psychiatric [id number] History of Present illness Narrative* Zakiya Traylor LPN - 04/24/2024 11:20 AM EDT Reason for Appointment: Patient ID: Cloton Medrano is a 28 y.o. female who presents for Routine Visit Patient presents today for Return OB appointment. MEDICATIONS Current Outpatient Medications Medication Instructions Alcohol Swabs (Alcohol Prep Pad) 70 % pads 1 Pad, Topical, Daily, Use four times daily to check FSBS. aspirin 81 mg, Oral, Daily Blood Glucose Monitoring Suppl ([employer] Glucometer) w/Device kit 1 kit, Does not [...] before breakfast, Do not crush or chew. Tykyznoq-Rga-Ra-FA ( 1 + IRON PO) Oral, Daily [...] Past Medical History: Diagnosis Date Anxiety Depression ([facility]) Endometriosis OCD (obsessive compulsive disorder) ([facility]) PTSD (post-traumatic stress disorder) ([facility]) HISTORY PAST MEDICAL HISTORY SOCIAL HISTORY Past Medical History: Diagnosis Date Anxiety Depression ([facility]) Endometriosis OCD (obsessive compulsive disorder) ([facility]) PTSD (post-traumatic stress disorder) ([facility]) Social [...] nursing note reviewed. Exam conducted with a cso present. Vitals: There is no height or [...] Glucose Test) strip Blood Glucose Monitoring Suppl ([employer] Glucometer) w/Device kit Patient presents today for [...] of: Moi Rueda DO documented in this encounterHawthorn Children's Psychiatric [id number] History of Present illness Narrative* Zakiya Traylor [...] before breakfast, Do not crush or chew. Ygehdzfk-Fzy-Cb-FA ( 1 + IRON PO) Oral, Daily [...] Depression (CMS/HCC) Endometriosis OCD (obsessive compulsive disorder) ([facility]/HCC) PTSD (post-traumatic stress disorder) ([facility]) HISTORY PAST MEDICAL HISTORY SOCIAL HISTORY Past Medical History: Diagnosis Date Anxiety Depression (CMS/HCC) Endometriosis OCD (obsessive compulsive disorder) ([facility]) PTSD (post-traumatic stress disorder) ([facility]) Social [...] nursing note reviewed. Exam conducted with a cso present. Vitals: There is no height or [...] of: Moi Rueda DO documented in this encounterHawthorn Children's Psychiatric [id number] History of Present illness Narrative* Tammy Horne [...] free DNA she showed me her report ([place]) ? POTS - near syncopal episode 6 [...] on 01/21/2024 Not In System Ref Prov oa462-vifi-ejaih acid ( 19) 29 mg iron- 1 [...] be risk factor for Down syndrome. Per [facility] recommendations for people with negative serum or [...] recommended. If low-lying placenta persist delivery between 67o3m-81p6d via (of note not all low-lying placenta [...] Tammy Horne MD, FACOG (she/hers) Maternal- Medicine [facility] [address] [place] [address] This document was created with [employer] technology. Though I make every effort to review the dictation as it is transcribed, on occasion the spoken word can be misinterpreted by the technology leading to inappropriate words, phrases, or sentences. This note is addressed to the requesting provider as a consultation for clinical guidance. Specificmedical abbreviations are occasionally used and those are generally approved by the [place]?Board of?Obstetrics and?Gynecology?as well as?Jessica s abbreviations. The above plan of care was based solely on the diagnoses for which a consultation was requested. ?More frequent testing may be indicated based on her other medical/obstetrical conditions. The management of other or medical conditions is beyond the scope of requested consultation and will c ontinue to be followed by the primary member service specialist or primary care provider. Note to patient: The Cures Act makes medical notes like these [...] provider today? HAS QUESTIONS. documented in this encounterGreene [facility] Hospital06-03-2024 History of Present illness Narrative* Marisol Bhakta [...] 01/03/24 Have you been seen here at [facility] in a previous ? no Recent ER visits or hospitalizations? no Bring blood sugar log or meter with you today? (Please bring them with you for every visit at [facility]) n/a Traveled outside the country in the [...] was 63 minutes. 45 minutes were direct qozl-ko-onht for counseling and coordination of care during visits itself. An additional 5 minutes or for same day preparation to see the patient. Another 13 minutes were needed to prepare visit report or otherwise complete encounter Thank you for sending this patient. Bari Zepeda MD Maternal Medicine Professor, [facility] [phone] Office [phone] Personal Cell Phone Office Note: Prior history of (reportedly from abruption) Chart referenced to history of anxiety and or posttraumatic stress disorder Personal history of endometriosis Nausea and or vomiting in (improved) Current Outpatient Medications on File Prior to Visit Medication Sig magnesium (MAGTAB) 84 mg tablet extended release CR tablet Take 1 tablet (84 mg total) by mouth in the morning. [id number] acid ( 19) 29 mg iron- 1 [...] In the patient's next , she saw [facility] providers. She reportedly saw Maternal- medicine team in [place]. The patient can not recall if she [...] asked the patient to give permission to [facility] via [employer] so [facility] records from most recent could be reviewed. Unlessother information becomes available however, this patient does not appear to be a candidate for serial cervical length screening. At the present time, 17 hydroxy progesterone secondary prevention is no longer typically recommended in any patient. The patient believes she can determinefor sure which [facility] practice saw her and will obtain records [...] of growth monthly after imaging completion in [facility] office reasonable. surveillance also reasonable. We provided the patient information regarding chromosomal screening, genetic carrier testing, chromosomal diagnostic testing, activity in , and travel in . Subsequent decisions as per patient and primary OB provider regarding these issues. We also provided the patient information regarding history. Information either through [facility] and or [facility]. Recommendations (Plan): First history of seems likely the abruption. In abundance of caution, the patient will return somewhat early for survey along with cervical length assessment. Physician visit will be scheduled at that time, as well. The patient will determine for sure where she underwent [facility] care in her next and will either [...] primary OB provider team. documented in this encounterGalion HospitalBioVex [id number] Evaluation + Plan note Diagnostic Tests Pending * T3 Free 11/19/23 * Thyroid Perox.tpo Ab 11/19/23 * TgAb+Thyroglobulin,CHING or ARLEN 11/19/23 [place]03-15-2024 History of Present illness Narrative* Cheri Stephen MD - 11/02/2023 2:30 PM EDT GYNECOLOGY CONSULT NOTE REASON FOR VISIT Endometriosis Pelvic pain HISTORY OF PRESENT ILLNESS Ms. Mitchell is a 27 y.o. (NSVDx2) who presents for consultation regarding endometriosis, pelvic pain. Records review: Moved back from [place] to [place] (2021) First diagnosed in 2017 Has had [...] tried to get her medical records in [place], but they would not send them. She [...] She had a women's health doctor in [facility] who told her she had stage IV endometriosis. She is no longer on the progesterone. Has tried vaginal valium does not help Her 2 previous pregnancies were with a previous partner. She and her are trying for anotherpregnancy now. No BA in [place] Partner has not had a SA yet [...] with the patient today. [facility] * Encounter Date Diagnosis [...] educated on the risks and benefits of rn long term care use. Risk assessment was done. Patient is [...] Pt to call with any worsening symptoms. [employer] Other 12-21-2023 Evaluation note* Encounter Date Diagnosis Assessment Notes Treatment Notes Treatment Clinical Notes Jul, Generalized anxiety disorder (IC D-10 - F41.1) Jul,Endometriosis (ICD-10 - N80.9) [facility] Other 12-15-2023 Evaluation note* Encounter Date Diagnosis [...] educated on the risks and benefits of mcc use. Risk assessment was done as well [...] intractable, unspecified migraine type (ICD-10 - G43.909) [facility] Other 11-06-2020 NoteOPERATIVE NOTE OPERATION DATE: 06-25-20 ANESTHETIC:General. SUPERVISOR PIPELINE MAINTENANCE:None. PREOPERATIVE DIAGNOSIS: 1. Dyspareunia. 2. Right and [...] lap, and needle counts were correct x2. [facility] Signed and Approved by: DR MOI RUEDA . 07/30/2020 13:02:00[facility] note* Clinical Note Date No Information [facility] Work Phone: Discharge summary* Clinical Note Date No Information [facility] Work Phone: Evaluation noteNo InformationNos[facility] Other Evaluation note* Diagnosis Endometriosis- Primary Endometriosis, site unspecified Pelvic pain Unspecified symptom associated with female genital organs Myalgia of pelvic floor Dysmenorrhea Dyspareunia in female Nausea and vomiting, unspecified vomiting type Bladder pain Other symptoms involving urinary system Anxiety Anxiety state, unspecified documented [facility] Diagnosis Onset Date Resolution Status Depression acuteGeneralized anxiety disorderacuteObsessive compulsive disorderacutePTSD (post-traumatic stress disorder)acuteDepressionacuteEndometriosisacute Generalized anxiety disorderacuteObsessive compulsive disorderacutePTSD (post- traumatic stress disorder)acuteTBI (traumatic brain injury)acute [facility] Work Phone: Evaluation note* Type Assessment Date No Information [facility] [place] Work Phone: Evaluation note* Diagnosis 32 weeks [...] for diabetes mellitus documented in this encounter [facility]* [...] iron deficiency anemia documented in this encounter [facility]* Diagnosis Third trimester state, incidental 30 weeks gestation of H/O delivery, currently , first trimester Abdominal pain affecting Pelvic pain in female Unspecified symptom associated with female genital organs Prior with placenta abruption in third trimester, antepartum Other insomnia documented in this encounter [facility]* Diagnosis Pre-op examination Request for sterilization Hormone imbalance Swelling Localized superficial swelling, mass, or lump Mood disorder (CMS/HCC) Unspecified episodic mood disorder documented in this encounter [facility]* Diagnosis History of delivery, currently in first trimester- Primary Prior with placenta abruption in first trimester, antepartum [facility] encounter [facility]* Diagnosis 18 weeks gestation of - Primary Echogenic intracardiac focus of fetus on ultrasound Placental abnormality in second trimester History of placenta abruption History of delivery, currently with history of pre-term labor documented in [facility]* Diagnosis Encounter for drug screening documented in this encounter [facility]* Diagnosis Dysmenorrhea Abnormal uterine bleeding (AUB) Bleeding disorder Unspecified hemorrhagic conditions PCOS (polycystic ovarian syndrome) Polycystic ovaries Pelvic pain in female Unspecified symptom associated with female genital organs documented in this encounter [facility]Evaluation note* Diagnosis Onset Date Resolution Status Admit Date Endometriosis acuteNovember 2024 10:49am [facility] Work Phone: History and physical note* Clinical Note Date No Information [facility] Work Phone: History general Narrative - Reported* Type Description Date Medical History Anxiety Medical HistoryStage 4 EndometriosisMedical HistoryDepression with manic episodesMedical HistoryOCDMedical HistoryPTSDMedical HistoryTBISurgical History Endometriosis surgery [id number] HistoryWisdom teethSurgical HistoryInjections in [facility] Other History of Present illness Narrative* Encounter Date Complaint History Of Prese nt Illness No Information [facility] Work Phone: Hospital course Narrative No data available for this section [facility] No data available for this section [facility] instructionsAmbulatory Orders* Referral to CHANCERY CLERK Time Frame: 10/27/24, Location: None [facility] Work Phone: Hospital Discharge instructionsAmbulatory Orders* Referral to CHANCERY CLERK Time Frame: 12/30/24, Location: None [facility] Work Phone: Instructions* Date Instruction Additional Infor mation No Information [facility] Work Phone: InstructionsNot on filedocumented in this encounter [facility]ructionsNot on filedocumented in this encounter [facility] SystemInstructions* Attachments The following attachments cannot be sent through Care Everywhere. * Preeclampsia (Slovak) documented in this encounterProMedila Health SystemInstructionsNot on file documented in this encounterProNationwide [facility] SystemProgress note No data available for this section [facility]* Clinical Note Date No Information [facility] Work Phone: Reason for referral (narrative)* Consultation (Routine) - New RequestSpecialtyDiagnoses / ProceduresReferred By Contact Referred To ContactPsychology Diagnoses Pelvic pain Anxiety Cheri Stephen MD [address] [place] [address] Oksana Luu, PhD [address] [place] [address] Referral IDStatusReasonStart DateExpiration DateVisits RequestedVisits [id number] Request/ * Consultation (Routine) - New RequestSpecialtyDiagnoses / ProceduresReferred By ContactReferred To ContactIntegrative Medicine Diagnoses Pelvic pain Nausea and vomiting, unspecified vomiting type Cheri Stephen MD [address] [place] [address] Referral IDStatusReasonStart DateExpiration DateVisits RequestedVisits [id number] Request * Consultation (Routine) - New RequestSpecialtyDiagnoses / ProceduresReferred By ContactReferred To ContactGynecology Diagnoses Pelvic pain Myalgia of pelvic floor Bladder pain Cheri Stephen MD [address] [place] [address] Referral IDStatusReasonStart DateExpiration DateVisits RequestedVisits [id number] Request * MRI/CAT Scan (Routine) - New RequestSpecialtyDiagnoses / ProceduresReferred By ContactReferred To Contact Diagnoses Endometriosis Pelvic pain Procedures MRI PELVIS WITH AND WITHOUT CONTRAST ND MRI, PELVIS, COMBO Cheri Stephen MD [address] [place] [address] Referral IDStatusReasonStart DateExpiration DateVisits RequestedVisits [id number] Request/ [facility] for referral (narrative)* Reason For Referral No Information [facility] Work Phone: Reason for referral (narrative)No reason for referral information [facility] Work Phone: Summary Purpose Family History Relationship [...] 23, 2025 2:22pm Reason for Referral Reason *FU 08/06 CALL taryn walton Diagnosis 1 Endometriosis (N80.9 ) Referral Organization [facility] Referring Provider First Name Lucila Referring Provider Last Name Melquiades Referring Provider Specialty Nurse Pract itioner Referred Organization [facility] Referred Provider Jena Suresh Referred Address ,[place], [place],[address] Referred Provider Specialty OB - Gynecol ogy [...] migraine type (G43.909) Referral Organization [facility] [email or web address] [facility] Referring Provider First Name Lucila Referring Provider Last Name [facility] Hospital[facility] Referring Provider Specialty Nurse Pract itioner Referred Organization [facility] Referred Provider Herbie Arroyo Referred Address [address] [place], [place],[address] Referred Provider Specialty Neurology Referral Priority Routine [...] Endometriosis (N80.9 ) Referral Organization [facility] Socratic lin Referring Provider First Name Lucila Referring Provider Last Name Ellyrbacher Referring Provider Specialty Nurse Pract itioner Referred Organization Joselito de la rosa [facility] Referred Address [address] [place], [place],[address] Referred Provider Specialty Endocrinolog y Referral Priority [...] section and content) DATE CREATED AUTHOR 12/15/2020 [facility] DATE CREATED AUTHOR AUTHOR'S ORGANIZ ATION 11/03/2023 [facility] DATE CREATED AUTHOR AUTHOR'S ORGANIZ ATION 11/20/2023 [facility] DATE CREATED AUTHOR AUTHOR'S ORGANIZ ATION 12/15/2023 [facility] DATE CREATED AUTHOR AUTHOR'S ORGANIZ ATION 04/01/2024 [facility] DATE CREATED AUTHOR AUTHOR'S ORGANIZ ATION 09/12/2024 [facility] DATE CREATED AUTHOR AUTHOR'S ORGANIZ ATION 06/23/2025 [facility] EPIC REASON FOR VISIT (unrecogniz ed section and content) ReasonCommentsConsultPt diagnosis with Endometriosis in 2018. Patient desire .SpecialtyDiagnoses / ProceduresReferred By ContactReferred To Contact CHANCERY CLERK Diagnoses Endometriosis Lucila Arnett CNP [address] [place] [address] [facility] [address] [place] [address] Referral IDStatusReasonStart DateExpiration DateVisits RequestedVisits [id number] VisitReasonCommentsPelvic PainReasonCommentsPre-op VisitReasonCommentshx placenta abruption/ PTDReasonCommentsHX DELIVERY@ 32 WEEKS PLACENTAL ABRUPTION.ReasonCommentsConsult Care Teams (unrecognized sec tion and content) Team Status: Active Member Role Status Dates Lucila Arnett APRN [employer]ADE SEWER-C Primary Care Provider Active Team Status: Inactive Member Role Status Dates Lucila Arnett APRN LAMP SHADE SEWERJohn Attending Provider Act vinicius Start: September 14, 2023 End: September 14, 2023 Team Status: Inactive Member Role Status Dates Lucila Arnett APRN [employer]-C Primary Care Provider, Attending Provider Active Start: October 17, 2023 End: October 17, 2023 Team Status: Inactive Member Role Status Dates Lucila Arnett APRN [employer]WER-Jazmine Primary Care Provider, Attending Provider Active Start: November 14, 2023 End: November 14, 2023 Name Effective Dates (start - stop) Status Members No Information Team MemberRelationshipSpecialtyStart DateEnd Date Lucila Arnett NP [address] [place] [address] PCP - GeneralFamily Medicine11/11/23Team MemberRelationshipSpecialtyStart DateEnd Date Lucila Arnett NP [address] [place] [address] PCP - GeneralFamily Medicine11/11/23Team MemberRelationshipSpecialtyStart DateEnd Date Lucila Arnett NP [address] [place] [address] PCP - GeneralFamily Medicine11/11/23Team MemberRelationshipSpecialtyStart DateEnd Date Lucila Arnett NP [address] [place] [address] PCP - GeneralFamily Medicine11/11/23Team MemberRelationshipSpecialtyStart DateEnd Date Lucila Arnett NP [address] [place] [address] PCP - GeneralFamily Medicine11/11/23Team MemberRelationshipSpecialtyStart DateEnd Date Lucila Arnett NP [address] [facility] [place] [address] PCP - GeneralFamily Medicine11/11/23Team MemberRelationshipSpecialtyStart DateEnd Date Lucila Arnett NP [address] [facility] [place] [address] PCP - GeneralFamily Medicine11/11/23Team MemberRelationshipSpecialtyStart DateEnd Date Lucila Arnett NP [address] [facility] [place] [address] PCP - GeneralFamily Medicine11/11/23Team MemberRelationshipSpecialtyStart DateEnd Date Lucila Arnett NP [address] [facility] [place] [address] PCP - GeneralFamily Medicine11/11/23Team MemberRelationshipSpecialtyStart DateEnd Date Lucila Arnett NP [address] [facility] [place] [address] PCP - GeneralFamily Medicine11/11/23Team MemberRelationshipSpecialtyStart DateEnd Date Lucila Arnett NP [address] [facility] [place] [address] PCP - GeneralFamily Medicine11/11/23Team MemberRelationshipSpecialtyStart DateEnd Date Lucila Arnett NP [address] [facility] [place] [address] PCP - GeneralFamily Medicine11/11/23Team MemberRelationshipSpecialtyStart DateEnd Date Melquiades Lucila F[place] [employer] SHADE SEWER [address] [facility] [place] [address] PCP - [facility]11/11/23Team MemberRelationshipSpecialtyStart DateEnd Date StevechanelTawny foleyLucila A, [employer]ER [address] [facility] [place] [address] PCP - [facility]11/11/23 Team Status: Active Member Role Status Dates Lucila Arnett APRN [employer]-C Primary Care Provider Active Start: June Moi Marybeth , DOAttending ProviderActiveStart: June 23, 2024 Team Status: Active Member Role Status Dates Lucila Arnett APRN [employer]-C Primary Care Provider Active Start: July 062023 Moi Marybeth , DOAttending ProviderActiveStart: July 06, 2024 Team Status: Active Member Role Status Dates Lucila Arnett APRN [employer]-C Primary Care Provider Active Start: July 072023 Moi Marybeth , DOAttending ProviderActiveStart: July 07, 2024 Team Status: Inactive Member Role Status Dates Lucila Arnett APRN [employer]-C Primary Care Provider, Attending Provider Active Start: July 16, 2024 End: July 16, 2024 Team Status: Active Member Role Status Dates Lucila Arnett APRN [employer]-C Primary Care Provider Active Start: August 012023 Moi Marybeth , DOAttending ProviderActiveStart: August 01, 2024 Team Status: Active Member Role Status Dates Lucila Arnett APRN [employer]-C Primary Care Provider Active Start: August Moi Marybeth , DOAttending ProviderActiveStart: August 29, 2024 Team Status: Inactive Member Role Status Dates Lucila Arnett APRN [employer]-C Primary Care Provider, Attending Provider Active Start: September 08, 2024 End: September 08, 2024 Team Status: Inactive Member Role Status Dates Lucila Arnett APRN [employer]-C Primary Care Provider, Attending Provider Active Start: September 12, 2024 End: September 12, 2024 Team Status: Inactive Member Role Status Dates Lucila Arnett APRN [employer]-C Primary Care Provider, Attending Provider Active Start: October 27, 2024 End: October 27, 2024 Team Status: Inactive Member Role Status Dates Lucila Arnett APRN [employer]-C Primary Care Provider, Attending Provider Active Start: December 30, 2024 End: December 30, 2024Team MemberRelationshipSpecialtyStart DateEnd Date Lucila Arnett NP [address] [place] [address] PCP - Generalmily Medicine11/11/23 Moi Rueda, [address] [place], [place] [id number] PCP - S [facility]08/20/24Team MemberRelationshipSpecialtyStart DateEnd Date Lucila Arnett NP [address] [place] [address] PCP - Generalmi Medicine11/11/23 Moi Rueda, [address] [place] [address] [facility] HospitalTeam MemberRelationshipSpecialtyStart DateEnd Date Lucila Arnett NP [address] [place] [address] [facility] - [facility]11/11/23 Moi Rueda, [address] [place] [address] [place] [address] PCP - [facility] HospitalTeam MemberRelationshipSpecialtyStart DateEnd Date Lucila Arnett NP [address] [facility] [place] [address] PCP - GeneralFamily Medicine11/11/23 Moi Rueda, DO [address] [place] [address] [place] [address] PCP - [facility] HospitalTeam MemberRelationshipSpecialtyStart DateEnd Date Lucila Arnett NP [address] [facility] [place] [address] PCP - GeneralFamily Medicine11/11/23 Moi Rueda, DO [address] [place] [address] [place] [address] PCP - [facility] HospitalTeam MemberRelationshipSpecialtyStart DateEnd Date Lucila Arnett NP [address] [facility] [place] [address] PCP - GeneralFamily Medicine11/11/23Team MemberRelationshipSpecialtyStart DateEnd Date Lucila Arnett NP [address] [facility] [place] [address] PCP - GeneralFamily Medicine11/11/23 Team Status: Active Member Role/Relationship Status Dates Lucila Arnett APRN NP-C Primary Care Provider Active Team Status: Inactive Member Role/Relationship Status Dates Lucila REAL ArnettC Primary Care Provider Active Start: June End: June 24, 2025Randelltheresa Arnett APRN [employer]ADE SEWER-CAttending ProviderActive Start: June 24, 2025 End: June [...] BE BASED ON THE PRIMARY CLINICAL RECORDS. [facility] [employer] [facility]. provides no warranty or guarantee of the accuracy or completeness of information in this document.
--- NOTE | 2025-07-24 13:22 | XR_ITS ---
[address] [address] Patient Name: COLTON VERMA MRN: [id number] date: 1995 Sex: F Assigned Patient Location: LAB Current Patient Location: LAB Accession/Order Number: [id number] Exam Date: 07/24/2025 13:28 Report Date: 07/24/2025 13:38 At the request of: JASPAL MAXWELL Procedure: XR chest 2V Chest 2 views CLINICAL HISTORY: Positive Reaction To Tuberculin Skin Test COMPARISON: None FINDINGS: Heart normal size. Lungs are clear. No free air. XR/XR chest 2V IMPRESSION: NO ACUTE CARDIOPULMONARY ABNORMALITY. Impression dictated by: Elaina Morel Jr.ONandini 07/24/2025 1:38 PM Dictation Location: [place] [address] Electronically authenticated by: [id number] Y Date: 07/24/2025 13:38
[2025-07-24 14:54] LABS: Iron 113.0 ug/dL (50.0-170.0); Percent Iron Saturation 35.2 %; Total Iron Binding Capacity 321.0 ug/dL (250.0-450.0)
[2025-07-24 15:08] LABS: Ferritin 34.0 ng/mL (8.0-252.0)
[2025-07-25 03:10] LABS: Vitamin B12 432 pg/mL (232-1245)
== END 2025-07-24 12:49 | disposition home or self-care (01) ==
PROVIDERS: PCP Nurse Practitioner Family; Visit Provider Nurse Practitioner Family
DX: N94.6 Dysmenorrhea, unspecified (principal); N93.9 Abnormal uterine and vaginal bleeding, unspecified; R10.20 Pelvic and perineal pain unspecified side; R53.83 Other fatigue; Z86.39 Personal history of other endocrine, nutritional and metabolic disease; Z11.1 Encounter for screening for respiratory tuberculosis; R76.11 Nonspecific reaction to tuberculin skin test without active tuberculosis
CPT/HCPCS: 36415; 71046; 82607; 82626; 82728; 83540; 83550; 86480

== ENCOUNTER 2025-07-24 13:03 | Outpatient (OUT) | payer OTHER, SELFPAY ==
--- OUTSIDE RECORDS SUMMARY | 2025-07-24 13:09 | XMS_ITS | CCD ---
Author Organization [facility] Care Team Providers Care Traffic Court Referee Name Role Phone MARYBETH, DR UPTON Admitting Unavailable MISC, DR DAVENPORT Primary Care Unavailable NUPUR, DR DARLINE Fitzgerald Consulting Unavailable MARYBETH, DR UPTON Attending Unavailable MARYBETH, DR UPTON Consulting Unavailable MARYBETH, DR UPTON Consulting Unavailable MARYBETH, DR UPTON Admitting Unavailable MARYBETH, DR UPTON Attending Unavailable CHEYENNE MOONEY Consulting Unavailable MARBYETH, DR UPTON Admitting Unavailable MARYBETH, DR UPTON [...] Unavailable MARYBETH, MOI R Referring Unavailable BARI ZEPDEA Attending Unavailable MARYBETH, MOI R Referring Unavailable MARYBETH, MOI R Referring Unavailable TAMMY HORNE Attending Unavailable MARYBETH, MOI R Referring Unavailable MARYBETH, MOI R Referring Unavailable MARYBETH, MOI R Referring Unavailable Rohrbacher Lucila CHANG Primary Care Provider Rohrbacher CASINO CAGE SUPERVISOR, Lucila Primary Care Provider Rohrbacher CASINO CAGE SUPERVISOR, Lucila Attending Provider Lucila Arnett Attending Unavailable Ellyrbacher, Lucila Primary Care Unavailable RohrbacherTawnyLucila Admitting Unavailable Unavailable Primary Care Provider Unavailabl e Rohrbacher CASINO CAGE SUPERVISOR, Lucila Primary Care Provider Rohrbacher CASINO CAGE SUPERVISOR, Lucila Attending Provider Marybeth DO, Moi Unavailable Marybeth DO, Moi Unavailable DORITA QUIROGA Attending Unavailable MARYBETH, MOI Attending Unavailable MARYBETH, MOI Attending Unavailable MARYBETH, MOI Attending Unavailable MARYBETH, MOI Attending Unavailable Rohrbacher REAL, Lucila Primary Care Provider Rohrbacher REAL, Lucila Attending Provider Allergies Allergy ClassificationReported Allergen(s)Allergy TypeDate of OnsetReaction(s) FacilityOpioid Agonists (1 source)traMADolDrug Cjirzmm80-43-8494RhmTr[facility] (20 sources)traMADol; Translations: [TRAMADOL]Drug Pzwyzhh15-35-6690Kmkwpmt, [facility]ivesBrown [facility] ([facility] sources)Lavender Oil; Translations: [LAVENDER OIL]Drug kjjtpqy10-97-2740 Unknown, RashPro[facility] Repository (8 sources)lavender (Lavandula angustifolia); Translations: [lavender (Lavandula angustifolia)]Allergy to ewntgjghb14-11-8691NllbhmjKettering [facility] (20 sources)GALCANEZUMAB-GNLM; Translations: [GALCANEZUMAB-GNLM]Propensity to adverse reactions to drug (disorder)02-71-9755JpaUbuqzx Repository (20 sources)GalcanezumabPropensity to adverse dkstiexle01-94-4367ZjqhvABMC Healthcare Work Phone: (1 source)traMADolDrug Azjxpcp98-09-9989VisfltjybMercy [facility] Repository Medications Current Medications MedicationDrug Class(es)DatesSig (Normalized)Sig (Original)acetaminophen 325 mg oral tablet (1 source)Start: 60-53-8490ainldogropvse 325 mg tablet PLEASE SEE ATTACHED FOR DETAILED DIRECTIONS - Activeacetaminophen 300 mg / codeine phosphate 30 mg oral tablet (1 source)Opioid AgonistStart: 88-49-3266rqvvwvwjzhnpx 300 mg-codeine 30 mg tablet - [id number] 200 actuat albuterol 0.09 mg/actuat metered dose inhaler (1 source)beta2-Adrenergic AgonistStart: 59-60-5682zgse 1 puff(s) by inhalation every four to six hours as needed for wheezingamoxicillin 875 mg oral tablet (2 sources)Penicillin-class AntibacterialStart: 25-30-4253sisi 1 tablet by mouth every twelve hoursamoxicillin 875 mg tablet TAKE 1 TABLET BY MOUTH EVERY 12 HOURS FOR 10 DAYS UNTIL ALL TAKEN - ActiveStart: 12-26-2022 amoxicillin 500 mg capsule - Xkeyqu05 hr amphetamine aspartate 5 mg / amphetamine sulfate 5 mg / dextroamphetamine saccharate 5 mg / de xtroamphetamine sulfate 5 mg extended release oral capsule (12 sources)Central Nervous System StimulantStart: 50-69-9775wpmjovgmorx- dextroamphetamine XR (Adderall XR) 20 MG 24 hr capsule 01/08/2025 ActiveStart: 13-28-3559wcqk 1 capsule by mouth once daily in the morningamphetamine- dextroamphetamine XR (Adderall XR) 10 MG 24 hr capsule TAKE 1 CAPSULE BY MOUTH DAILY INTHE MORNING 10/23/2024 Activeaspirin 81 mg delayed release oral tablet (20 sources)Platelet Aggregation Inhibitor, Nonsteroidal Anti-inflammatory Drug Start: 02-25-2024 End: 60-67-7021zvrtxcj 81 mg Indications: 18 weeks gestation of , History of placenta abruption , History of delivery, currently Take 1 tablet once a day until 36 weeks gestation 30 tablet 6 02/25/2024 Active baclofen 10 mg oral tablet (8 sources)gamma-Aminobutyric Acid-ergic AgonistStart: 12-30-2024 End: 68-97-1596wjbf 1 tablet by mouth three times dailybaclofen (Lioresal) 10 MG tablet TAKE 1 TABLET BY MOUTH THREE TIMES DAILY FOR 10 DAYS 12/30/2024 Active brompheniramine maleate 0.4 mg/ml / dextromethorphan hydrobromide 2 mg/ml / pseudoephedrine hydrochloride 6 mg/ml oral solution (1 source)alpha-Adrenergic Agonist, Uncompetitive V-niaadg-D-aspartate Receptor Antagonist, Sigma-1 AgonistStart: 74-22-3355cawh 5 mL by mouth four times daily Bromfed DM oral syrup 5 mL, Oral, QID for cold symptoms, 200 mL, Refill(s) 0 Start Date: 09/30/17 Status: Orderedcariprazine 1.5 mg oral capsule (6 sources)Atypical AntipsychoticStart: 31-91-3853tdyf 1 capsule by mouth once dailyVraylar 1.5 MG capsule Take 1 capsule by mouth Daily 10/09/2024 Active celecoxib 200 mg oral capsule (1 source)Nonsteroidal Anti-inflammatory DrugStart: 57-09-5443qsxomfcyi 200 mg capsule - Active0.5 ml choriogonadotropin martha 0.5 mg/ml prefilled syringe (1 source)GonadotropinStart: 32-14-7513Whxfdro 250 mcg/0.5 mL subcutaneous syringe - Activecitalopram 20 mg oral tablet (9 sources)Serotonin Reuptake InhibitorStart: 08-27-2024 End: 87-34-2388rmxt 1 tablet by mouth once dailycitalopram (CeleXA) 20 MG tablet Indications: Mood disorder Take 1 tablet (20 mg) by mouth Daily 30tablet 11 08/27/2024 08/27/2025 ActiveclonazePAM 0.5 mg oral tablet (20 sources)BenzodiazepineStart: 05-08-2023 End: 31-11-5586dkyd 1 tablet by mouth twice daily as needed for anxiety clonazePAM (KlonoPIN) 0.5 MG tablet Take 0.5 mg by mouth 2 (two) times a day as needed for anxiety 07/16/2024 Activedoxepin hydrochloride 10 mg oral capsule (3 sources)Tricyclic AntidepressantStart: 11-27-2023 End: 99-29-7191drksobe 10 mg capsule - Activeescitalopram 20 mg oral tablet (1 source)Serotonin Reuptake InhibitorStart: 34-01-4489jgujhbiudoyv 20 mg tablet - Activeibuprofen 600 mg oral tablet (2 sources)Nonsteroidal Anti-inflammatory DrugStart: 18-65-8973jpdjadhjn 600 mg tablet PLEASE SEE ATTACHED FOR DETAILED DIRECTIONS - Activeketorolac tromethamine 10 mg oral tablet (1 source)Nonsteroidal Anti-inflammatory Drug, Cyclooxygenase InhibitorStart: 43-97-6572yvyx 1 tablet by mouth every eight hoursKetorolac [...] 750 mg oral tablet (1 source)Muscle RelaxantStart: 07-00-4050maab 1 tablet by mouth every six hours Robaxin-750 oral tablet 750 mg = 1 tab(s), Oral, q6hr, # 12 tab(s), Refills(s) 0 Start Date: 01/27/19 Status: OrderedmetroNIDAZOLE 500 mg oral tablet (1 source)Nitroimidazole AntimicrobialStart: 08-01-2024 End: 61-13-1136vnps 1 tablet by mouth in the morningmetroNIDAZOLE (Flagyl) 500 MG tablet Indications: BV (bacterial vaginosis) Take 1 tablet (500 mg) by mouth in the morning and 1 tablet (500 mg) before bedtime. Do all this for 7 days. Do not drink alcohol while taking this medication. 14 tablet 08/01/2024 08/08/2024 Activenorethindrone acetate 5 mg oral tablet (1 source)Start: 14-19-3963wzuvtzgpmozpo acetate 5 mg tablet - Activeprenatal iu391-cova-bkcgw acid ( 19) 29 mg iron- 1 mg tablet,chewable (4 sources) jd988-mvao-tmltk acid ( 19) 29 mg iron- 1 mg tablet,chewable Chew 1 tablet and swallow in the morning. ActivetiZANidine 2 mg oral tablet (20 sources)Central alpha-2 Adrenergic AgonistStart: 31-90-6750oedx 1 tablet by mouth every eight hours as needed for muscle spasmsStart: 03-06-2025 End: 20-04-7104aklx 1 tablet by mouth every eight hours as neededTizanidine 2 mg tablet Discontinued 2 MG PO Every 8 hours as needed for muscle spasticity 90 30 0 March 05, 2025 11:00pm June 23, 2025 3:31pm Endometriosis Endometriosis, unspecifiedStart: 09-08-2024 End: 65-96-3746ssjg 1 tablet by mouth every eight hours as neededTizanidine 2 mg tablet Discontinued 2 MG PO Every 8 hours as needed for muscle spasticity 90 30 0 September 08, 2024 12:00am December 30, 2024 8:28am Endometriosis Endometriosis, unspecifiedStart: 12-96-5240sojl 1 tablet by mouth every six hours as needed tiZANidine (Zanaflex) 4 MG tablet Take 4 mg by mouth every 6 (six) hours if needed for muscle spasms 01/10/2024 ActiveStart: 08-16-7390rvid 1 tablet by mouth three times daily as neededtizanidine 2 mg tablet TAKE 1 TABLET BY MOUTH THREE TIMES DAILY NEEDED - ActiveStart: 08-03-2023 End: 31-63-3713kqrh 1 tablet by mouth three times daily as neededTizanidine 4 mg tablet Discontinued 4 MG PO Three times daily as needed October 16, 2023 12:00amSeptember 08, 2024 2:19pmtraZODone hydrochloride 50 mg oral tablet (1 source)Serotonin Reuptake InhibitorStart: 55-96-0816crkvydpup 50 mg tablet - ActiveZofran ODT 4 mg Tab-Dis (1 source)Start: 70-55-2770bgfl 1 tablet by mouth every six hoursZofran ODT 4 mg Tab-Dis 4 mg = 1 tab(s), Oral, q6hr, # 10 tab(s), Refills(s) 0, Pharmacy: [facility] Start Date: 09/21/18 Status: Ordered Completed/Discontinued Medications MedicationDrug Class(es)DatesSig (Normalized)Sig (Original)amoxicillin 875 mg / clavulanate 125 mg oral tablet (4 sources)Penicillin-class AntibacterialStart: 09-12-2024 End: 84-41-6534xxlv 1 tablet by mouth twice dailyAmoxicillin-Pot Clavulanate 875-125 mg tablet Discontinued 1 TAB PO Twice daily 20 10 0 September 12, 2024 12:00am October 27, 2024 9:24amBlood Glucose Monitoring Suppl (D-Care Glucometer) w/Device kit (20 sources)Start: 04-24-2024 End: 69-26-3434Inbxr Glucose Monitoring Suppl (D-Care Glucometer) w/Device kit Indications: Elevated glucose tolerance test 1 kit Daily Use four times daily to check FSBS. In the morning prior to breakfast & 1 hour after each meal for a total of 4times daily. 1 kit 04/24/2024 08/27/2024 DiscontinuedStart: 04-24-2024 End: 89-81-3690Tjevm Glucose Monitoring Suppl (D-Care Glucometer) w/Device kit Indications: Elevated glucose tolerance test 1 kit Daily Use four times daily to check FSBS. In the morning prior to breakfast & 1 hour after each meal for a total of 4times daily. 1 kit 04/24/2024 04/24/2025 Activecyclobenzaprine hydrochloride 10 mg oral tablet (20 sources)Muscle RelaxantStart: 04-28-2023 End: 28-88-2563bxxktubvfclppst (Flexeril) 10 MG tablet cyclobenzaprine 10 mg tablet - Active 04/28/2023 08/27/2024 Discontinued{21 (Desogestrel 0.15 MG / Ethinyl Estradiol 0.03 MG Oral Tablet) / 7 (Inert Ingredients 1 MG Oral Tablet) } Pack [Enskyce 28 Day] (1 source)Progestin, EstrogenStart: 10-65-5104cpaa 1 tablet by mouth once daily Enskyce 0.15 mg-0.03 mg oral tablet 1 tab(s), Oral, Daily, Refill(s) 0 Start Date: 09/30/17 Status: Orderedferrous sulfate (19 sources) End: 25-78-9072ggfd 1 tablet by mouth in the morningFerrous Sulfate (IRON PO) Take 1 tablet by mouth in the morning. 08/27/2024 Discontinuedtake 1 tablet by mouth in the morningFerrous Sulfate (IRON PO) Take 1 tablet by mouth in the morning. Activeisopropyl alcohol 0.7 ml/ml medicated pad (20 sources)Start: 04-24-2024 End: 63-48-5489Yqmdzhq Swabs (Alcohol Prep Pad) 70 % pads Indications: Elevated glucose tolerance test Apply 1 Padtopically Daily Use four times daily to check FSBS. 150 each 3 04/24/2024 08/27/2024 Discontinuedmagnesium lactate 84 mg extended release oral tablet (20 sources) End: 57-34-2106jori 1 tablet by mouth in the morningmagnesium lactate CR (Magtab) 84 MG (7MEQ) ER tablet Take 84 mg by mouth in the morning. 08/27/2024 Discontinuedmagnesium oxide 400 mg oral tablet (20 sources)Start: 12-18-2023 End: 45-76-5791jffydtbke oxide (Mag-Ox) 400 (240 Mg) MG tablet 12/19/2023 08/27/2024 Discontinuedmeloxicam 7.5 mg oral tablet (15 sources)Nonsteroidal Anti-inflammatory DrugStart: 10-24-2023 End: 19-73-2142evcg 1 tablet by mouth once dailyMeloxicam 7.5 mg tablet Discontinued 7.5 MG PO Daily 30 30 October 26, 2023 2:24pm September 08, 2024 2:20pm Endometriosis Endometriosis, unspecifiedomeprazole 20 mg delayed release oral capsule (20 sources)Proton Pump InhibitorStart: 12-13-2023 End: 28-67-4654uvsi 1 capsule by mouth before mealtimeomeprazole (PriLOSEC) [address] capsule Indications: Heartburn during in first trimester (HHS- HCC) Take 1 capsule (20 mg) by mouth in the morning. Take before meals. Do not crush or chew.. 30 capsule 11 12/13/2023 08/27/2024 Discontinuedondansetron 4 mg disintegrating oral tablet (20 sources)Serotonin-3 Receptor AntagonistStart: 11-30-2023 End: 74-62-0940poga 1 tablet by mouth every six hours for nauseaondansetron ODT (Zofran-ODT) 4 MG disintegrating tablet Indications: Nausea and vomiting in ([facility]) Take 1 tablet (4 mg) by mouth every 6 (six) hours if needed for nausea or vomiting 60 tablet 2 11/30/2023 12/30/2023 ExpiredStart: 73-69-9120fpto 1 tablet by mouth every eight hours as neededOndansetron 4 MG Tab Dispersible tablet Take 1 tablet by mouth every 8 hours as needed for Nausea / Vomiting. 18 tablet 1 11/02/2023 Activeondansetron (ZOFRAN) 4 mg/5 mL solution Take by mouth once. Activepolysaccharide iron complex 391 mg oral capsule (20 sources)Start: 05-05-2024 End: 02-56-9004kbln 1 capsule by mouth once dailyiron polysaccharides (ProFe) 391.3 (180 Fe) MG capsule Indications: Low iron Take 1 capsule (391.3 mg) by mouth Daily 30 capsule 6 05/05/2024 08/27/2024 DiscontinuedPrenatal Zfmbrjmo-Fqy-Ae-FA ( 1 + IRON PO) (20 sources) End: 08-52-6128Irnxbxar Jyqvhuuj-Pil-Bk-FA ( 1 + IRON PO) Take by mouth Daily 08/27/2024 DiscontinuedPrenatal Bkzvenoi-Xzi-Dx-FA ( 1 + IRON PO) Take by mouth Daily Activeprogesterone 200 mg oral capsule (2 sources)Progesterone End: 55-89-8703nfmk 1 capsule by mouth in the morningprogesterone (PROMETRIUM) 200 mg capsule Take 1 capsule (200 mg total) by mouth in the morning. 01/21/2024 Discontinued (Discontinued by another clinician)zolpidem tartrate 10 mg oral tablet (20 sources)gamma-Aminobutyric Acid-ergic AgonistStart: 05-19-2024 End: 88-65-2094ofjauhlz (Ambien) 10 MG tablet Indications: Other insomnia Take 1 tablet (10 mg) by mouth as neededat bedtime for sleep (insomnia) for up to 5 doses 5 tablet 05/19/2024 08/27/2024 Discontinued Problems Active Problems Problem ClassificationProblemDateDocumented DateEpisodic/Chronic Administrative/social admission (2 sources)Patient encounter status; Translations: [Encounter for blood-alcohol and blood-drug test]45-67-1787PagxoydaTfidlvk disorders (20 sources)Generalized anxiety disorder; Translations: [Generalized anxiety disorder]ChronicAsthma (2 sources)Asthma; Translations: [Unspecified asthma, uncomplicated]10-31-2013 ChronicCoagulation and hemorrhagic disorders (2 sources)Blood coagulation disorder; Translations: [Hemorrhagic condition, unspecified]29-95-2837MkonrryyGhzgkstpddiui and procreative management (4 sources)Sterilization requested; Translations: [Encounter for sterilization] 63-88-7005PuhaygvaOwenbyqnf of teeth and jaw (4 sources)Dental abscess; Translations: [Periapical abscess without sinus] 20-43-5432TtdnvgpyUstfojatlmlhe (20 sources)Endometriosis (clinical); Translations: [Endometriosis, unspecified] Onset: 41-23-2941UtpsojfZeyivyi on above:Surgical Removal z6Xndyp 4Esophageal disorders (1 source)Gastro-esophageal reflux disease without esophagitis; Translations: [GERD WITHOUT ESOPHAGITIS]Onset: 05-26-7447RpktihtRdfpoitmqgkrb symptoms and ill-defined conditions (1 source)Bladder pain; Translations: [Other symptoms and signs involving the genitourinary system]77-01-2663DlkckcnrNysybcao; including migraine (17 sources)Migraine; Translations: [Migraine, unspecified, not intractable, without status migrainosus]ChronicHemorrhage during ; abruptio placenta; placenta previa (1 source)Placental gcgvimjkw46-65-8184PolvrtgaKctwxcgmmwap injury (14 sources)Personal history of traumatic brain injury; Translations: [Traumatic brain injury]EpisodicMalaise and fatigue (6 sources)Fatigue; Translations: [Other fatigue]58-53-4873PdyrgsjpPsusfychz disorders (4 sources)Dysmenorrhea; Translations: [Dysmenorrhea, unspecified]Onset: 693676-17-9703HrrnqqbBqwj disorders (11 sources)Depressive disorder; Translations: [Depression]20-49-5839Hdelkso Comment on above:With manic episodesNutritional deficiencies (2 sources)Serum iron low; Translations: [Iron deficiency]68-89-1365Wesezwcz Other complications of (1 source)Supervision of other high risk pregnancies, unspecified trimester; Translations: [Supervision of other high risk pregnancies, unspecified trimester]Onset: 45-90-7527WbtboxljRcfkf complications of (1 source)Abnormal ultrasonic finding on screening of mother; Translations: [Abnormal ultrasonic finding on screening of mother] Onset: 59-56-0341HlgkcuswIuaph complications of (1 source)Malformation of placenta, unspecified, second trimester; 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, unspecified, second trimester]Onset: 02-25-2024 EpisodicOther complications of (1 source) with inconclusive viability, other fetus; Translations: [ with inconclusive viability, other fetus]Onset: 36-95-8349RztcqvbmKzxts complications of (1 source)Supervision of high risk , unspecified, unspecified trimester; Translations: [Supervision of high risk , unspecified, unspecified trimester]Onset: 81-57-9361UkgybetkBsryu complications of (1 source)Supervision of other high risk pregnancies, first trimester; Translations: [Supervision of other high risk pregnancies, first trimester] Onset: 78-74-5919OuvduolzMjexc complications of (5 sources)Supervision of with other poor reproductive or obstetric history, first trimester; Translations: [ with other poor obstetric history]Onset: 310111-14-8085KpttrithXttpu complications of (6 sources)H/O: premature delivery; Translations: [Supervision of other high risk pregnancies, unspecified trimester]88-68-2304UzfcyomlWrvfy connective tissue disease (1 source)Myalgia of pelvic floor; Translations: [Myalgia, other site]11-02-2023 EpisodicOther connective tissue disease (8 sources)Pain in bilateral legs; Translations: [Pain in right leg]06-05-2024 EpisodicOther endocrine disorders (2 sources)Polycystic ovary syndrome; Translations: [Polycystic ovarian syndrome]01-34-6825DitxbvnUdbsj endocrine disorders (2 sources)Disorder of endocrine system; Translations: [Endocrine disorder, unspecified]48-07-9650TqvisylrVzrzj female genital disorders (4 sources)Unspecified dyspareunia; Translations: [UNSPECIFIED DYSPAREUNIA] Onset: 20-80-3024VerafzvBxtgd female genital disorders (1 source)Pain in female genitalia on intercourse; Translations: [Unspecified dyspareunia]81-44-0257FzlxkniOcqrs female genital disorders (2 sources)Abnormal uterine bleeding; Translations: [Abnormal uterine and vaginal bleeding, unspecified]78-83-6448TgpspscSoptp female genital disorders (6 sources)Vaginal discharge; Translations: [Other specified noninflammatory disorders of vagina]17-34-3992CjwlaecrKqplf female genital disorders (5 sources)Other specified noninflammatory disorders of vagina; Translations: [Leukorrhea, not specified as infective]Onset: 843644-27-8709ThffmhqdIcftd nutritional; endocrine; and metabolic disorders (6 sources)History of iron deficiency; Translations: [Personal history of other endocrine, nutritional and metabolic disease]39-23-2090JsmcwkzrBntszfde codes; unclassified (2 sources)Insomnia; Translations: [Other insomnia]59-13-1319PycgezqQtkqdqgs codes; unclassified (2 sources)Personal history of other complications of , childbirth and the puerperium; Translations: [Personal history of other complications of , childbirth and the puerperium]Onset: 43-00-8206LpkrxcdbBngprykn codes; unclassified (1 source)18 weeks gestation of ; Translations: [18 weeks gestation of ]Onset: 62-91-8473KfxosykpYftstyzm codes; unclassified (2 sources)Gestation period, 32 weeks; Translations: [32 weeks gestation of ]92-97-7935UrnwaxooVhajuebb codes; unclassified (2 sources)Gestation period, 35 weeks; Translations: [35 weeks gestation of ]51-38-2014PrzyhdptHxjmmqia codes; unclassified (2 sources)H/O: miscarriage; Translations: [Personal history of other complications of , childbirth and the puerperium]19-71-6950Socjgsqe Residual codes; unclassified (2 sources)Gestation period, 30 weeks; Translations: [30 weeks gestation of ]58-76-7366LhabcmyjMlppeybr codes; unclassified (2 sources)Swelling; Translations: [Edema, unspecified]30-84-5295Bgzzmyaq Unclassified (1 source)Details of family - vbugnsf99-27-4067Jveztulnguom (1 source) locdp18-24-6679Dfzsvaigurql (1 source)hx placenta abruption/ PTDOnset: 01-21-2024 Past or Other Problems Problem ClassificationProblemDateDocumented DateEpisodic/ChronicAbdominal pain (20 sources)Pelvic and perineal pain; Translations: [Pain in pelvis]Onset: 54-53-8804AeajmpztIosiyumpch associated with dizziness or vertigo (20 sources)Dizziness; Translations: [Dizziness and giddiness]Onset: 01-03-2024 94-75-5445PmbahuekZomjcvazav and other anemia (1 source)Anemia, unspecified; Translations: [ANEMIA UNSPECIFIED]Onset: 34-72-8448CcvkhlopPvhamfva mellitus without complication (2 sources)Abnormal glucose tolerance test; Translations: [Other abnormal glucose]25-61-7405ZzabivvyFbvjnxem or abnormal glucose tolerance complicating ; childbirth; or the puerperium (2 sources)Gestational diabetes mellitus; Translations: [Gestational diabetes mellitus in , unspecified control]77-87-5672JstupeoaFqcfydfbznlrs and screening for infectious disease (1 source)Encounter for screening for human papillomavirus (HPV); Translations: [ENC SCREENING HUMAN PAPILLOMAVIRUS]Onset: 56-19-6579CkvscaykEfoqzs and vomiting (9 sources)Nausea and vomiting; Translations: [Nausea with vomiting, unspecified]Onset: 762302-39-0667GktabzkhKbghn complications of (20 sources)Vomiting of , unspecified; Translations: [Unspecified vomiting of , unspecified as to episode of care or not applicable] Onset: 064916-96-7074JqovwggaUlfco complications of (20 sources)Heartburn; Translations: [Other specified related conditions, first trimester]Onset: 374900-86-1342XwlrmaggGbjqp complications of (20 sources)High risk ; Translations: [Supervision of other high risk pregnancies, first trimester]Onset: 055027-80-6016KtkicltqPqxbc complications of (20 sources)Abdominal pain in ; Translations: [Other specified related conditions, unspecified trimester]Onset: EpisodicOther complications of (20 sources)Supervision of with other poor reproductive or obstetric history, third trimester; Translations: [ with other poor obstetric history]Onset: 325927-77-5420UwcassdeDyppk complications of (3 sources) heart echogenicity on obstetric ultrasound scan; Translations: [Abnormal ultrasonic finding on screening of mother]Onset: 02-25-2024 42-44-5534UslpwksjWwueh complications of (1 source)Anomaly of placenta; 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, unspecified, second trimester]02-75-7282EgxaextbPybnx female genital disorders (1 source)Unspecified hypertrophy of vulva; Translations: [UNSPECIFIED HYPERTROPHY OF VULVA]Onset: 38-17-5329AtbmdgerGescx female genital disorders (20 sources)Pain in female pelvis; Translations: [Pelvic pain in female]Onset: 945403-39-8371ZwvcxwncNfcnq non-traumatic joint disorders (20 sources)Hip pain; Translations: [Pain in right hip]Onset: 01-03-2024 97-11-0257HmmtfthiQmiiw non-traumatic joint disorders (12 sources)Pain in right hip joint; Translations: [Pain in right hip]Onset: 910095-40-9433SujqimgkTfsoz and delivery including normal (20 sources)First trimester ; Translations: [Encounter for supervision of normal , unspecified, first trimester]Onset: EpisodicOther screening for suspected conditions (not mental disorders or infectious disease) (20 sources)Encounter for screening for malignant neoplasm of cervix; Translations: [Encounter for other screening follow-up]Onset: 29-98-4304AwvswrsgVmptnchc codes; unclassified (4 sources)Other general symptoms and signs; Translations: [OTHER GENERAL SYMPTOMS AND SIGNS]Onset: 99-52-8613LkldpgurWvrnakdn codes; unclassified (20 sources)History of placental abruption; Translations: [Personal history of other complications of , childbirth and the puerperium]Onset: [id number] codes; unclassified (20 sources)Gestation period, 24 weeks; Translations: [24 weeks gestation of ]Onset: [id number] codes; unclassified (2 sources)Gestation period, 26 weeks; Translations: [26 weeks gestation of ]35-63-2733NfdjznmwOodsgygy codes; unclassified (1 source)Gestation period, 18 weeks; Translations: [18 weeks gestation of ]40-43-7842InafuvppBijbzxqqldzt (1 source)PregnancyOnset: 08-20-2013 Resolved: Results Test NameValueInterpretationReference RangeFacilityALL CBC WITH AUTO DIFFon 60-32-5058SJLGWDQIL ABSOLUTE AUTO0.1NOMS HealthcareBasophils/100 WBC (Bld)0.9 % 0.2 - 2.0 %[facility] HealthcareEosinophils/100 WBC (Bld)2.1 %0.9 - 7.0 %[facility] NorthErythrocyte distribution width (RBC) [Ratio]12.6 %11.0 - 15.0 %NOMSt. Joseph Medical CenterHematocrit (Bld) [Volume fraction]37.7 %36.0 - 48.0 %[facility] Hemoglobin (Bld) [Mass/Vol]12.6 g/dL12.0 - 16.0 g/dLNOI-70 Community HospitalIMMATURE GRANULOCYTES ABS AUTO0.03NOMS HealthcareImmature granulocytes/100 WBC (Bld)0.4 % 0.0 - 0.5 %[facility] HealthcareInterpretation and review of laboratory results AbnormalNOMS HealthcareLYMPHOCYTES ABSOLUTE AUTO1.7[facility] Lymphocytes/100 WBC (Bld)22.7 %20.5 - 60.0 %Cox NorthMCH (RBC) [Entitic mass]31.7 pg26.7 - 34.0 pgNOI-70 Community HospitalMCHC (RBC) [Mass/Vol]33.4 g/dL29.9 - 35.2 g/dLNOMS HealthcareMCV (RBC) [Entitic vol]94.7 fL81.0 - 99.0 fLNOMS HealthcareMONOCYTES ABSOLUTE AUTO0.6NOMS HealthcareMonocytes/100 WBC (Bld)8.2 % 1.7 - 12.0 %NOMS HealthcareNEUTROPHILS ABSOLUTE AUTO4.9[facility] Neutrophils/100 WBC (Bld)65.7 %43.0 - 75.0 %NOMS HealthcarePlatelet mean volume (Bld) [Entitic vol]9.2 fLLow9.5 - 13.5 fLNOMS HealthcareTBH EO #0.2NOMS HealthcareTBH [id number] HealthcareTBH RBC3.98LowNOMS HealthcareTBH WBC7.5NOMS HealthcareCLINISYNCNOMS HealthcareBacteria Vaginosis, NAAon 18-50-4383Cxptbvzrw VaginaeLow - 0Normal.[facility] Physician GroupComment on above:Result Comment: This test was developed and its performance characteristics determined by [facility]. It has not been cleared or approved by the Food and Drug Administration.Performed By: #### VAGINOSIS, HUMA,NA #### [facility] ,ZTXI6Oke - 0Normal.[facility] Physician GroupComment on above:Result Comment: This test was developed and its performance characteristics determined by [facility]. It has not been cleared or approved by the Food and Drug Administration.Performed By: #### VAGINOSIS, HUMA,NA #### [facility] ,MegasphaeraLow - 0Normal.[facility] Physician GroupComment on above:Result Comment: This [...] VAGINOSIS, HUMA,NA #### [facility] ,Huma Albicans+Glabrata, NAAon 49-78-4966Qdlwhfn Albicans, NAANegativeNormal NegativeThe [facility] Hospital Physician GroupComment on above:Result Comment: This test was developed and its performance characteristics determined by [facility]. It has not been cleared or approved by the Food and Drug Administration.Performed By: #### VAGINOSIS, HUMA,NA #### [facility] ,Huma Glabrata, NAANegativeNormalNegativeThe [facility] Physician GroupComment on above:Result Comment: This test was developed and its performance characteristics determined by [facility]. It has not been cleared or approved by the Food and Drug Administration. Performed at: =[address] [id number] Newspaper Copy Editor: Monserrat Velasquez MD, Phone: [phone] PERFORMED BY: [place] [address] [place] [address] PATHOLOGIST SALES SERVICE MANAGER JOANIE MATHIAS M.D.Performed By: #### VAGINOSIS, HUMA,NA #### [facility] ,No Panel InformationOrdered By: Lucila Arnett on 50-93-2029Bevcgox albicans (ABBY)NegativeNegativeMercy Health Fairfield HospitalComment on above: This test was developed and its performance characteristicsdetermined by [facility]. It has not been cleared orapproved by the Food and Drug Administration. Huma glabrata (ABBY)NegativeNegativeMercy Health Fairfield HospitalComment on above:This test was developed and its performance characteristicsdetermined by [facility]. It has not been cleared orapproved by the Food and Drug Administration.Performed at: =[facility] [address] [id number] Director: Monserrat Velasquez MD, Phone: [phone] fluid Atopobium vaginae DNA detection by probe and target amplification methoOrdered By: Lucila Arnett on 09-08-2024. vaginae DNA ABBY+probe Ql (Vag fld) Vaginal fluid Atopobium vaginae DNA detection by probe and target amplification metho.[facility] HospitalComment on above:This test was developed and its performance characteristicsdetermined by [facility]. It has not been cl eared orapproved by the Food and Drug Administration.Vaginal fluid Megasphaera species type 1 DNA detection by probe and target amplificatOrdered By: Lucila Arnett on 05-68-8156Zagjjjtsqte sp type 1 DNA ABBY+probe Ql (Vag fld)Vaginal fluid Megasphaera species type 1 DNA detection by probe and target amplificat. [facility] HospitalComment on above:This test was developed and [...] and t Ordered By: Lucila Arnett on 48-14-7363Ealfwsnrh vaginosis associated bacterium 2 DNA ABBY+probe Ql (Vag fld)Vaginal fluid bacterial vaginosis associated bacterium 2 DNA detection by probe and t.[facility] HospitalComment on above:This test was developed and its performance characteristicsdetermined by [facility]. It has not been cleared orapproved by the Food and Drug Administration.ALL CBC WITH AUTO DIFFon 30-92-7405KJYETBVHR ABSOLUTE AUTO0.1NOMS HealthcareBasophils/100 WBC (Bld)1.2 %0.2 - 2.0 %NOM[facility] HealthcareEosinophils/100 WBC (Bld)2.8 %0.9 - 7.0 %NOMS HealthcareErythrocyte distribution width (RBC) [Ratio]14.1 %11.0 - 15.0 %NOMS HealthcareHematocrit (Bld) [Volume fraction]39.2 %36.0 - 48.0 %[facility] HealthcareHemoglobin (Bld) [Mass/Vol]12.3 g/dL12.0 - 16.0 g/dLNOMS HealthcareIMMATURE GRANULOCYTES ABS AUTO 0.02NOMS HealthcareImmature granulocytes/100 WBC (Bld)0.4 %0.0 - 0.5 %[facility] NorthInterpretation and review of laboratory resultsAbnormalCox North LYMPHOCYTES ABSOLUTE AUTO1.6NO[facility]-70 Community HospitalLymphocytes/100 WBC (Bld)31.5 %20.5 - 60.0 %[facility] CenterH (RBC) [Entitic mass]28.3 pg26.7 - 34.0 pgHedrick Medical CenterHC (RBC) [Mass/Vol]31.4 g/dL29.9 - 35.2 g/dLHedrick Medical CenterV (RBC) [Entitic vol]90.1 fL81.0 - 99.0 fLCox NorthMONOCYTES ABSOLUTE AUTO0.6NOOR HealthcareMonocytes/100 WBC (Bld)12 %1.7 - 12.0 %[facility] NorthNEUTROPHILS ABSOLUTE AUTO2.6[facility] Community HospitalNeutrophils/100 WBC (Bld)52.1 %43.0 - 75.0 %[facility]ox NorthPlatelet mean volume (Bld) [Entitic vol]9.4 fLLow9.5 - 13.5 fLCox NorthTBH EO #0.1NOMS [facility] HospitalTB [id number] Midwest Division RBC4.35NOI-70 Community HospitalTB MUM4IOLDCox NorthCLINISYNCNOMS HealthcareBasophils Auto (Bld) [#/Vol]on 35-03-4004Rhciekqgb (Bld) [#/Vol]Automated basophil count0.0-0.1 [facility] HospitalBasophils/100 WBC Auto (Bld)on 08-29-2024 Basophils/100 WBC (Bld)Automated basophil %0.2-2.0[facility] HospitalEosinophils/100 WBC Auto (Bld)on 10-51-1968Dvsmakkdpzv/100 WBC (Bld) Automated eosinophil %0.9-7.0[facility] HospitalErythrocyte distribution width Auto (RBC) [Ratio]on 51-14-9230Bduevxknmgh distribution width (RBC) [Ratio]Erythrocyte distribution width [Ratio] by Automated count11.0-15.0 [facility] HospitalEstimated glomerular filtration rate (GFR) non- Americanon 57-87-2377AAK/1.73 sq M.predicted among non-blacks MDRD (S/P/Bld) [Vol rate/Area]Estimated glomerular filtration rate (GFR) non->=60 mL/min/1.73m 2FEast Liverpool City HospitalHematocrit Auto (Bld) [Volume fraction]on 43-22-0420Jbimmqonht (Bld) [Volume fraction]Hematocrit [Volume Fraction] of Blood by Automated count36.0-48.0[facility] HospitalHemoglobin [Mass/volume] in Bloodon 18-72-0148Llmmitveum (Bld) [Mass/Vol] Hemoglobin [Mass/volume] in Blood12.0-16.0[facility] Laboratory - Chemistry and Chemistry - challengeon 19-64-6358RHY [Catalytic activity/Vol]19 U/E20-85DzibikevhMercy Health Fairfield HospitalCreatinine [Mass/Vol] 0.88 mg/dL0.55-1.02[facility] HospitalFree T4 [Mass/Vol]0.91 ng/dL 0.76-1.46[facility] HospitalGFR/1.73 sq M.predicted MDRD (S/P/Bld) [Vol rate/Area]mL/min/{1.73_m2}>=60 mL/min/1.73m 2FEast Liverpool City HospitalTSH Qn0.997 m[IU]/L0.358-3.740[facility] HospitalUrea nitrogen [Mass/Vol]7.0 mg/dL7.0-18.0[facility] HospitalLaboratory - Hematology and Cell countson 39-68-5249Azpxsfop granulocytes/100 WBC (Bld)0.4 %0.0-0.5FEast Liverpool City HospitalLeukocytes [#/volume] corrected for nucleated erythrocytes in Blood by Automated counon 50-98-4044HJZ corrected for nucl RBC Auto (Bld) [#/Vol]Leukocytes [#/volume] corrected for nucleated erythrocytes in Blood by Automated coun4.0-11.0[facility] Lymphocytes Auto (Bld) [#/Vol]on 61-58-3222Srvusuubbjl (Bld) [#/Vol]Lymphocytes [#/volume] in Blood by Automated count1.2-3.8[facility] Lymphocytes/100 WBC Auto (Bld)on 92-74-8974Jvqyhxiaeof/100 WBC (Bld) Lymphocytes/100 leukocytes in Blood by Automated count20.5-60.0[facility] HospitalH Auto (RBC) [Entitic mass]on 59-03-2569SFR (RBC) [Entitic mass]MCH [Entitic mass] by Automated count26.7-34.0[facility] HospitalMCHC Auto (RBC) [Mass/Vol]on 67-22-4652ATIQ (RBC) [Mass/Vol]MCHC [Mass/volume] by Automated count29.9-35.2FOhioHealth Southeastern Medical CenterV Auto (RBC) [Entitic vol]on 58-90-4038TBK (RBC) [Entitic vol]MCV [Entitic volume] by Automated count81.0-99.0[facility] HospitalMonocytes Auto (Bld) [#/Vol]on 66-42-0035Lbqwzsfjt (Bld) [#/Vol]Automated blood monocyte count0.3-0.8 [facility] HospitalMonocytes/100 WBC Auto (Bld)on 08-29-2024 Monocytes/100 WBC (Bld)Automated monocyte %1.7-12.0[facility] HospitalNeutrophils Auto (Bld) [#/Vol]on 04-97-3138Cnmpvsqxhfr (Bld) [#/Vol] Neutrophils [#/volume] in Blood by Automated count1.4-6.5FEast Liverpool City HospitalNeutrophils/100 WBC Auto (Bld)on 64-93-4970Opzrizgjpto/100 WBC (Bld)Automated neutrophil %43.0-75.0[facility] HospitalNo Panel Informationon 73-48-5619Jukpsuilvfj # (Auto)0.1 10 3/uL0.0-0.7FEast Liverpool City HospitalImmature Granulocyte # (Auto)0.02 10 3/uL0.00-0.03[facility] HospitalPlatelet mean volume Auto (Bld) [Entitic vol]on 04-12-4018Vjrwcicb mean volume (Bld) [Entitic vol]Platelet mean volume [Entitic volume] in Blood by Automated countLow9.5-13.5FEast [facility] Hospital Platelets Auto (Bld) [#/Vol]on 66-91-1228Ghgnzhulb (Bld) [#/Vol]Platelets [#/volume] in Blood by Automated wufkb186-831BcdsboebdMercy Health Fairfield Hospital RBC Auto (Bld) [#/Vol]on 58-59-4890VCK (Bld) [#/Vol]Erythrocytes [#/volume] in Blood by Automated count4.20-5.40[facility] HospitalALL CBC WITH AUTO DIFFon 58-54-0558JOXFWVRZN ABSOLUTE AUTO0.1NOMS HealthcareBasophils/100 WBC (Bld)1.2 %0.2 - 2.0 %[facility] HealthcareEosinophils/100 WBC (Bld)4.3 %0.9 - 7.0 % [facility] NorthErythrocyte distribution width (RBC) [Ratio]13.4 %11.0 - 15.0 % [facility] NorthHematocrit (Bld) [Volume fraction]39 %36.0 - 48.0 %[facility] NorthHemoglobin (Bld) [Mass/Vol]12.4 g/dL12.0 - 16.0 g/dLCox North IMMATURE GRANULOCYTES ABS AUTO0.02[facility] HospitalImmature granulocytes/100 WBC (Bld)0.3 %0.0 - 0.5 %[facility] NorthInterpretation and review of laboratory resultsAbnormalNOI-70 Community HospitalLYMPHOCYTES ABSOLUTE AUTO1.9NO[facility] Healthcare Lymphocytes/100 WBC (Bld)28.8 %20.5 - 60.0 %[facility] CenterH (RBC) [Entitic mass]29.1 pg26.7 - 34.0 pgNOPutnam County Memorial HospitalHC (RBC) [Mass/Vol]31.8 g/dL29.9 - 35.2 g/dLCox NorthMCV (RBC) [Entitic vol]91.5 fL81.0 - 99.0 fLNOI-70 Community HospitalMONOCYTES ABSOLUTE AUTO0.8NOMS HealthcareMonocytes/100 WBC (Bld)11.5 % 1.7 - 12.0 %NOM HealthcareNEUTROPHILS ABSOLUTE AUTO3.5[facility] Neutrophils/100 WBC (Bld)53.9 %43.0 - 75.0 %NOMS HealthcarePlatelet mean volume (Bld) [Entitic vol]9.1 fLLow9.5 - 13.5 fLNOMS HealthcareTBH EO #0.3NOMS HealthcareTBH GFF967GRHH HealthcareTBH RBC4.26NOMS HealthcareTBH WBC6.5NOMS HealthcareCLINISYNCNOMS HealthcareBasophils Auto (Bld) [#/Vol]on 08-01-2024 Basophils (Bld) [#/Vol]Automated basophil count0.0-0.1FEast Liverpool City HospitalBasophils/100 WBC Auto (Bld)on 99-23-3854Dalnxdtho/100 WBC (Bld)Automated basophil %0.2-2.0[facility] HospitalEosinophils/100 WBC Auto (Bld)on 85-77-1099Pdwzsycxfnt/100 WBC (Bld)Automated eosinophil %0.9-7.0 [facility] HospitalErythrocyte distribution width Auto (RBC) [Ratio]on 59-41-3810Imoatqwyyih distribution width (RBC) [Ratio]Erythrocyte distribution width [Ratio] by Automated count11.0-15.0[facility] HospitalHematocrit Auto (Bld) [Volume fraction]on 94-67-3909Bsgagaauva (Bld) [Volume fraction]Hematocrit [Volume Fraction] of Blood by Automated count 36.0-48.0[facility] HospitalHemoglobin [Mass/volume] in Bloodon 88-46-6962Nixnlgxnpe (Bld) [Mass/Vol]Hemoglobin [Mass/volume] in Blood12.0-16.0 [facility] HospitalLaboratory - Hematology and Cell countson 97-22-8189Pksjjcgo granulocytes/100 WBC (Bld)0.3 %0.0-0.5FEast Liverpool City HospitalLeukocytes [#/volume] corrected for nucleated erythrocytes in Blood by Automated counon 07-44-9066LNZ corrected for nucl RBC Auto (Bld) [#/Vol]Leukocytes [#/volume] corrected for nucleated erythrocytes in Blood by Automated coun4.0-11.0[facility] HospitalLymphocytes Auto (Bld) [#/Vol]on 02-01-1069Qvuhpocuwis (Bld) [#/Vol]Lymphocytes [#/volume] in Blood by Automated count1.2-3.8[facility] HospitalLymphocytes/100 WBC Auto (Bld)on 68-29-7806Xxxjrhwvpqp/100 WBC (Bld)Lymphocytes/100 leukocytes in Blood by Automated count20.5-60.0[facility] HospitalH Auto (RBC) [Entitic mass]on 11-98-6587RUK (RBC) [Entitic mass]MCH [Entitic mass] by Automated count26.7-34.0[facility] HospitalMCHC Auto (RBC) [Mass/Vol]on 00-54-8592UHMD (RBC) [Mass/Vol]MCHC [Mass/volume] by Automated count29.9-35.2FEast Liverpool City HospitalMCV Auto (RBC) [Entitic vol]on 67-60-8840AMP (RBC) [Entitic vol]MCV [Entitic volume] by Automated count 81.0-99.0[facility] HospitalMonocytes Auto (Bld) [#/Vol]on 42-78-0999Wotrccakj (Bld) [#/Vol]Automated blood monocyte count0.3-0.8[facility] HospitalMonocytes/100 WBC Auto (Bld)on 54-42-0888Kfjhrynno/100 WBC (Bld)Automated monocyte %1.7-12.0[facility] Neutrophils Auto (Bld) [#/Vol]on 54-29-2864Ytavsflybqn (Bld) [#/Vol]Neutrophils [#/volume] in Blood by Automated count1.4-6.5FEast [facility] Neutrophils/100 WBC Auto (Bld)on 54-36-5070Jggkimztafl/100 WBC (Bld)Automated neutrophil %43.0-75.0[facility] HospitalNo Panel Informationon 35-24-4383Znhmlqtuqiv # (Auto)0.3 10 3/uL0.0-0.7FEast Liverpool City HospitalImmature Granulocyte # (Auto)0.02 10 3/uL0.00-0.03[facility] CenterPlatelet mean volume Auto (Bld) [Entitic vol]on 97-75-3537Wzbhmdvc mean volume (Bld) [Entitic vol]Platelet mean volume [Entitic volume] in Blood by Automated countLow9.5-13.5FEast Liverpool City HospitalPlatelets Auto (Bld) [#/Vol]on 80-99-8861Ejklbsydh (Bld) [#/Vol]Platelets [#/volume] in Blood by Automated -675JkwmvltfyMercy Health Fairfield HospitalRBC Auto (Bld) [#/Vol]on 48-50-5122IQD (Bld) [#/Vol]Erythrocytes [#/volume] in Blood by Automated count 4.20-5.40[facility] HospitalUS PELVIS TRANSVAGINALon 39-31-7556[place] [address] Ultrasound Report Signed Patient: COLTON MEDRANO MR#: [id number] : 1995 Acct:[id number] Age/Sex: 28 / F ADM Date: 08/01/24 Loc: US Attending Dr: Moi Rueda D.O. Ordering Physician: Moi Rueda D.O. Date of Service: 08/01/24 Procedure(s): US pelvis transvaginal Accession Number(s): [id number] cc: Moi Rueda D.O.; LUCILA ARNETT [place] [address] Patient Name: COLTON MEDRANO MRN: [id number] date: 1995 Sex: F Assigned Patient Location: US Current Patient Location: US Accession/Order Number: [id number] Exam Date: 08/01/2024 11:32 Report Date: 08/01/2024 [...] Signed By: 08/01/24 1548 DD/ 1545 TD/TT: Fur Blower Operator:TBHRadiology, Radiologist, - 08/01/2024 [place] [address] Ultrasound Report Signed Patient: COLTON MEDRANO MR#: [id number] : 1995 Acct:[id number] Age/Sex: 28 / F ADM Date: 08/01/24 Loc: US Attending Dr: Moi Rueda D.O. Ordering Physician: Moi Rueda D.O. Date of Service: 08/01/24 Procedure(s): US pelvis transvaginal Accession Number(s): [id number] cc: Moi Rueda D.O.; LUCILA ARNETT The [address] [address] Patient Name: COLTON MEDRANO MRN: [id number] date: 1995 Sex: F Assigned Patient Location: US Current Patient Location: US Accession/Order Number: [id number] Exam Date: 08/01/2024 11:32 Report Date: 08/01/2024 [...] Signed By: 08/01/24 1548 DD/ 154 TD/TT: Fur Blower Operator: CULLEN [facility] HospitalRadiology Study observation (narrative)[facility] NorthUS PELVIS TRANSVAGINALOrdered By: Radiologist Radiology on 79-80-2073YJIDCox North Work Phone: Urinalysis macro (dipstick) panel (U)on 07-30-2024 Bilirubin, UANegativeNegative - 4(70) +++ mg/dLNOMS HealthcareBlood, UAPositive Negative - 50 Jt/mcLNOOR HealthcareClarity, UAClearNOOR HealthcareColor, UA YellowNOMS HealthcareGlucose, UANegativeNegative - 2000(110) ++++ mg/dLNOOR HealthcareInterpretation and review of laboratory resultsAbnormalNOI-70 [facility] Ketones, UANegativeNegative - 160(16) ++++ mg/dLNOOR HealthcareLeukocytes, UA NegativeNegative - 500+++ [place]/mcLNOOR HealthcareNitrite, UANegativeNegative - PositiveNOOR HealthcarepH, UA5.55 - 9NOMS HealthcareProtein, UANegativeNegative - 2000(20) ++++ mg/dLNOOR HealthcareSpec Grav, UA1.021 - 1.03[facility] Urobilinogen, UA1.00.2 - 12 mg/dLNOOR HealthcareNOMS HealthcareALL CBC WITH AUTO DIFFon 00-63-1673QDIBTGVFV ABSOLUTE AUTO0.1NOMS HealthcareBasophils/100 WBC (Bld)0.4 %0.2 - 2.0 %NOMS HealthcareEosinophils/100 WBC (Bld)1.7 %0.9 - 7.0 % [facility] NorthErythrocyte distribution width (RBC) [Ratio]12.5 %11.0 - 15.0 % [facility] NorthHematocrit (Bld) [Volume fraction]25.5 %Low36.0 - 48.0 %[facility] NorthHemoglobin (Bld) [Mass/Vol]8.4 g/dLLow12.0 - 16.0 g/dLCox North IMMATURE GRANULOCYTES ABS AUTO0.26HighCox NorthImmature granulocytes/100 WBC (Bld)2.1 %High0.0 - 0.5 %[facility] NorthInterpretation and review of laboratory resultsAbnormalCox NorthLYMPHOCYTES ABSOLUTE AUTO2.4NO[facility]-70 Community HospitalLymphocytes/100 WBC (Bld)19.5 %Low20.5 - 60.0 %[facility] CenterH (RBC) [Entitic mass]30 pg26.7 - 34.0 pgHedrick Medical CenterHC (RBC) [Mass/Vol]32.9 g/dL29.9 - 35.2 g/dLHedrick Medical CenterV (RBC) [Entitic vol]91.1 fL81.0 - 99.0 fL [facility] NorthMONOCYTES ABSOLUTE AUTO1.2HighCox NorthMonocytes/100 WBC (Bld)9.3 %1.7 - 12.0 %[facility] NorthNEUTROPHILS ABSOLUTE AUTO8.4HighNOI-70 Community HospitalNeutrophils/100 WBC (Bld)67 %43.0 - 75.0 %[facility] NorthPlatelet mean volume (Bld) [Entitic vol]9.3 fLLow9.5 - 13.5 fLCox NorthTB EO #0.2NOMS [facility] HospitalTB [id number] Midwest Division RBC2.8LowNOHCA [facility] Division WBC12.5High Cox NorthCLINISYNCNOMS HealthcareBasophils Auto (Bld) [#/Vol]on 07-07-2024 Basophils (Bld) [#/Vol]Automated basophil count0.0-0.1FEast Liverpool City HospitalBasophils/100 WBC Auto (Bld)on 64-76-0153Wsixaogdp/100 WBC (Bld)Automated basophil %0.2-2.0[facility] HospitalEosinophils/100 WBC Auto (Bld)on 87-70-7740Iqnmilyhcub/100 WBC (Bld)Automated eosinophil %0.9-7.0 [facility] HospitalErythrocyte distribution width Auto (RBC) [Ratio]on 02-57-4993Xobavwnuofu distribution width (RBC) [Ratio]Erythrocyte distribution width [Ratio] by Automated count11.0-15.0[facility] HospitalHematocrit Auto (Bld) [Volume fraction]on 91-67-6917Esrzqdpepq (Bld) [Volume fraction]Hematocrit [Volume Fraction] of Blood by Automated countLow 36.0-48.0[facility] HospitalHemoglobin [Mass/volume] in Bloodon 06-23-5720Wckmpaoosw (Bld) [Mass/Vol]Hemoglobin [Mass/volume] in BloodLow 12.0-16.0[facility] HospitalLaboratory - Hematology and Cell countson 15-74-7375Omgvpvff granulocytes/100 WBC (Bld)2.1 %High0.0-0.5FEast Liverpool City HospitalLeukocytes [#/volume] corrected for nucleated erythrocytes in Blood by Automated counon 91-94-4576IGN corrected for nucl RBC Auto (Bld) [#/Vol]Leukocytes [#/volume] corrected for nucleated erythrocytes in Blood by Automated counHigh4.0-11.0[facility] HospitalLymphocytes Auto (Bld) [#/Vol]on 36-50-7042Tnahoslherd (Bld) [#/Vol]Lymphocytes [#/volume] in Blood by Automated count1.2-3.8[facility] Lymphocytes/100 WBC Auto (Bld)on 61-98-3007Wouhgcnyiqo/100 WBC (Bld) Lymphocytes/100 leukocytes in Blood by Automated yufrbImm90.5-60.0[facility] HospitalH Auto (RBC) [Entitic mass]on 39-93-9271VXR (RBC) [Entitic mass]MCH [Entitic mass] by Automated count26.7-34.0[facility] HospitalMCHC Auto (RBC) [Mass/Vol]on 77-10-2512EOCH (RBC) [Mass/Vol]MCHC [Mass/volume] by Automated count29.9-35.2FEast Liverpool City HospitalMCV Auto (RBC) [Entitic vol]on 75-24-1604OAD (RBC) [Entitic vol]MCV [Entitic volume] by Automated count81.0-99.0[facility] HospitalMonocytes Auto (Bld) [#/Vol]on 41-95-7002Nzoozouzg (Bld) [#/Vol]Automated blood monocyte countHigh 0.3-0.8[facility] HospitalMonocytes/100 WBC Auto (Bld)on 22-12-3532Cxjjzbxaq/100 WBC (Bld)Automated monocyte %1.7-12.0[facility] HospitalNeutrophils Auto (Bld) [#/Vol]on 09-26-4601Cwfzrailpxd (Bld) [#/Vol]Neutrophils [#/volume] in Blood by Automated countHigh1.4-6.5FEast Liverpool City HospitalNeutrophils/100 WBC Auto (Bld)on 07-07-2024 Neutrophils/100 WBC (Bld)Automated neutrophil %43.0-75.0[facility] HospitalNo Panel Informationon 59-73-2959Qncmnaqisya # (Auto)0.2 10 3/uL 0.0-0.7FEast Liverpool City HospitalImmature Granulocyte # (Auto)0.26 10 3/uLHigh0.00-0.03[facility] HospitalPlatelet mean volume Auto (Bld) [Entitic vol]on 38-88-2778Ndvskkai mean volume (Bld) [Entitic vol]Platelet mean volume [Entitic volume] in Blood by Automated countLow9.5-13.5FEast Liverpool City HospitalPlatelets Auto (Bld) [#/Vol]on 68-89-1069Zzofjsukq (Bld) [#/Vol]Platelets [#/volume] in Blood by Automated kirmz096-657ExxzrwmueMercy Health Fairfield HospitalRBC Auto (Bld) [#/Vol]on 57-11-4470CCJ (Bld) [#/Vol]Erythrocytes [#/volume] in Blood by Automated countLow4.20-5.40[facility] HospitalBuprenorphine [Presence] in Urineon 64-66-0304Ucisqkxtriute Ql (U) Buprenorphine [Presence] in UrineNEGATIVEMercy Health Fairfield Hospital Comment on above:DRUG CLASS TEST SYSTEM CUT-OFF CONCENTRATIONS ARE ASFOLLOWS:AMP (Amphetamine): 500 ng/mLBAR (Barbiturates): 200 ng/mLBZO (Benzodiazepines): 150 ng/mLBUP (Buprenorphine): 10 ng/mLCOC (Cocaine): 150 ng/mLmAMP (Methamphetamine): 500 ng/mLMTD (Methadone): 200 ng/mLOPI (Opiates): 100 ng/mLOXY (Oxycodone): 100 ng/mLPCP (Phencyclidine): 25 ng/mLTHC (Cannabinoids): 50 ng/mLTCA (Trycyclic Antidepressants): 300 ng/mLErythrocyte distribution width Auto (RBC) [Ratio]on [id number] distribution width (RBC) [Ratio] Erythrocyte distribution width [Ratio] by Automated count11.0-15.0[facility] CBC WITH PLATELET NO DIFFERENTIALon 07-06-2024 Erythrocyte distribution width (RBC) [Ratio]12.5 %11.0 - 15.0 %[facility] Hematocrit (Bld) [Volume fraction]30.2 %Low36.0 - 48.0 %[facility] Hemoglobin (Bld) [Mass/Vol]10.1 g/dLLow12.0 - 16.0 g/dLCox North Interpretation and review of laboratory resultsAbnormalSaint [facility] (RBC) [Entitic mass]30.2 pg26.7 - 34.0 pgHedrick Medical CenterHC (RBC) [Mass/Vol]33.4 g/dL 29.9 - 35.2 g/dLHedrick Medical CenterV (RBC) [Entitic vol]90.4 fL81.0 - 99.0 fLCox NorthPlatelet mean volume (Bld) [Entitic vol]9.1 fLLow9.5 - 13.5 fLRay [facility] [id number] Midwest Division RBC3.34LowRay County Memorial Hospital WBC8.6Cox NorthCLINISYNCNOMS HealthcareHematocrit Auto (Bld) [Volume fraction]on [id number] (Bld) [Volume fraction]Hematocrit [Volume Fraction] of Blood by Automated mrnluTls07.0-48.0[facility] HospitalHemoglobin [Mass/volume] in Bloodon 23-88-4920Ymbkmlsktx (Bld) [Mass/Vol]Hemoglobin [Mass/volume] in OgzojEhp38.0-16.0[facility] HospitalLaboratory - Drug toxicologyon 51-02-8134Wlqfmbbxzqdz Ql (U)NegativeNEGKettering Health HamiltonBenzodiazepines Ql (U)NegativeNEGKettering Health HamiltonCocaine Ql (U)NegativeNEGKettering Health Hamilton Opiates Ql (U)NegativeNEGKettering Health HamiltonPhencyclidine Ql (U)NegativeNEGKettering Health HamiltonLeukocytes [#/volume] corrected for nucleated erythrocytes in Blood by Automated counon 92-74-6890UMU corrected for nucl RBC Auto (Bld) [#/Vol]Leukocytes [#/volume] corrected for nucleated erythrocytes in Blood by Automated coun4.0-11.0[facility] HospitalMCH Auto (RBC) [Entitic mass]on 57-14-8047NMG (RBC) [Entitic mass] MCH [Entitic mass] by Automated count26.7-34.0[facility] MCHC Auto (RBC) [Mass/Vol]on 74-43-9620PFPH (RBC) [Mass/Vol]MCHC [Mass/volume] by Automated count29.9-35.2FEast Liverpool City HospitalMCV Auto (RBC) [Entitic vol]on 74-46-4537SPE (RBC) [Entitic vol]MCV [Entitic volume] by Automated count81.0-99.0[facility] HospitalMethadone [Presence] in Urine by Screen methodon 61-16-1782Nbexrztbf Screen Ql (U)Methadone [Presence] in Urine by Screen methodNEGATIVEMercy Health Fairfield HospitalNo Panel Informationon 24-01-2588Pbsoq Barbiturates ScreenNegativeNEGKettering Health HamiltonUrine Marijuana (THC) ScreenNegativeNEGKettering Health HamiltonUrine Methamphetamines ScreenNegativeNEGKettering Health HamiltonPlatelet mean volume Auto (Bld) [Entitic vol]on 48-37-9723Nqzfhyfo mean volume (Bld) [Entitic vol]Platelet mean volume [Entitic volume] in Blood by Automated countLow9.5-13.5FEast [facility] City Hospital Platelets Auto (Bld) [#/Vol]on 09-43-9576Wdobuzauo (Bld) [#/Vol]Platelets [#/volume] in Blood by Automated asnph556-266KtxlkprljMercy Health Fairfield Hospital RBC Auto (Bld) [#/Vol]on 87-27-9772UJM (Bld) [#/Vol]Erythrocytes [#/volume] in Blood by Automated countLow4.20-5.40[facility] HospitalTBH DRUG SCREEN RAPID (URINE)on 26-96-7821GCBVZYIZAUO SCREEN URINENegativeNEGATIVENOMS HealthcareBARBITURATES SCREEN URINENegativeNEGATIVENOMS Healthcare BENZODIAZEPINES [...] ANTIDEPRESSANT URINENegativeNEGATIVENOMS HealthcareCLINISYNCNOMS HealthcareUrine tricyclic antidepressant measurementon 14-97-3909Wdweykzno antidepressants (U) [Mass/Vol]Urine tricyclic antidepressant measurementNEGATIVE [facility] HospitaloxyCODONE+oxyMORphone [Presence] in Urine by Screen methodon 72-78-6665afzAAOLPO+oxyMORphone Screen Ql (U) oxyCODONE+oxyMORphone [Presence] in Urine by Screen methodNEGATIVEMercy Health Fairfield HospitalUS OB BPP W NON-STRESSon 11-01-5110[place] [address] Ultrasound Report Signed Patient: COLTON MEDRANO MR#: [id number] : 1995 Acct:[id number] Age/Sex: 28 / F ADM Date: 07/03/24 Loc: US Attending Dr: Moi Rueda D.O. Ordering Physician: Moi Rueda D.O. Date of Service: 07/03/24 Procedure(s): US OB BPP w non-stress Accession Number(s): [id number] cc: Moi Rueda D.O.; LUCILA ARNETT [place] [address] Patient Name: COLTON MEDRANO MRN: [facility]:[id number] date: 1995 Sex: F Assigned Patient Location: [facility] Current Patient Location: Accession/Order Number: [id number] Exam Date: 07/03/2024 10:55 Report Date: 07/04/2024 [...] Signed By: 07/04/24 0416 DD/ 3 TD/TT: Fur Blower Operator:TERRIadiologluis fernando, Radiologist, - 07/04/2024 [place] [address] Ultrasound Report Signed Patient: COLTON MEDRANO MR#: [id number] : 1995 Acct:[id number] Age/Sex: 28 / F ADM Date: 07/03/24 Loc: US Attending Dr: Moi Rueda D.O. Ordering Physician: Moi Rueda D.O. Date of Service: 07/03/24 Procedure(s): US OB BPP w non-stress Accession Number(s): [id number] cc: Moi Rueda D.O.; LUCILA ARNETT [place] [phone] Patient Name: COLTON MEDRANO MRN: [facility]:[id number] date: 1995 Sex: F Assigned Patient Location: [facility] Current Patient Location: US Accession/Order Number: [id number] Exam Date: 07/03/2024 10:55 Report Date: 07/04/2024 [...] M.D. Signed By: 07/04/246 DD/ 3 TD/TT: Fur Blower Operator: CULLEN HealthcareRadiology Study observation (narrative)NOMS HealthcareUS OB BPP W NON-STRESSOrdered By: Radiologist Radiology on 59-30-1178XCZS Healthcare Work Phone: US OB GROWTHon [phone] [address] Ultrasound Report Signed Patient: COLTON MEDRANO MR#: [id number] : 1995 Acct:[id number] Age/Sex: 28 / F ADM Date: 06/30/24 Loc: [facility] Attending Dr: Moi Rueda D.O. Ordering Physician: Moi Rueda D.O. Date of Service: 06/30/24 Procedure(s): US OB growth Accession Number(s): [id number] cc: Moi Rueda D.O.; LUCILA ARNETT [address] [phone] Patient Name: COLTON MEDRANO MRN: [facility]:[id number] date: 1995 Sex: F Assigned Patient Location: [facility] Current Patient Location: [facility] Accession/Order Number: [id number] Exam Date: 06/30/2024 09:50 Report Date: 06/30/2024 [...] Signed By: 06/30/24 1017 DD/ 1015 TD/TT: Fur Blower Operator:TERRIadiology, Radiologist, - 06/30/2024 [place] [address] Ultrasound Report Signed Patient: COLTON MEDRANO MR#: [id number] : 1995 Acct:[id number] Age/Sex: 28 / F ADM Date: 06/30/24 Loc: [facility] Attending Dr: Moi Rueda D.O. Ordering Physician: Moi Rueda D.O. Date of Service: 06/30/24 Procedure(s): US OB growth Accession Number(s): [id number] cc: Moi Rueda D.O.; LUCILA ARNETT [place] [address] Patient Name: COLTON MEDRANO MRN: [facility]:[id number] date: 1995 Sex: F Assigned Patient Location: [facility] Current Patient Location: [facility] Accession/Order Number: [id number] Exam Date: 06/30/2024 09:50 Report Date: 06/30/2024 [...] Signed By: 06/30/24 1017 DD/ 1015 TD/TT: Fur Blower Operator: NOMS HealthcareRadiology Study observation (narrative)NOMS HealthcareUS OB GROWTHOrdered By: Radiologist Radiology on 01-21-7823MDCT Healthcare Work Phone: Urinalysis macro (dipstick) panel [...] mg/dLNOMS HealthcareNOMS HealthcareUS OB BPP W NON-STRESSon 65-14-6844Dee[address] [address] Ultrasound Report Signed Patient: COLTON MEDRANO MR#: [id number] : 1995 Acct:[id number] Age/Sex: 28 / F ADM Date: 06/27/24 Loc: [facility] 250-[address]: Moi Rueda D.O. Ordering Physician: Moi Rueda D.O. Date of Service: 06/27/24 Procedure(s): US OB BPP w non-stress Accession Number(s): [id number] cc: Moi Rueda D.O.; LUCILA RANETT [place] [address] Patient Name: COLTON MEDRANO MRN: [facility]:[id number] date: 1995 Sex: F Assigned Patient Location: [facility] Current Patient Location: [facility] Accession/Order Number: [id number] Exam Date: 06/27/2024 11:00 Report Date: 06/27/2024 [...] Signed By: 06/27/24 1152 DD/ 1149 TD/TT: Fur Blower Operator:BENNYHRadiology, Radiologist, MD - 06/27/2024 [place] [address] Ultrasound Report Signed Patient: COLTON MEDRANO MR#: [id number] : 1995 Acct:[id number] Age/Sex: 28 / F ADM Date: 06/27/24 Loc: [facility] 250-[address]: Moi Rueda D.O. Ordering Physician: Moi Rueda D.O. Date of Service: 06/27/24 Procedure(s): US OB BPP w non-stress Accession Number(s): [id number] cc: Moi Rueda D.O.; LUCILA ARNETT [place] [address] Patient Name: COLTON MEDRANO MRN: [facility]:[id number] date: 1995 Sex: F Assigned Patient Location: [facility] Current Patient Location: [facility] Accession/Order Number: [id number] Exam Date: 06/27/2024 11:00 Report Date: 06/27/2024 [...] Signed By: 06/27/24 1152 DD/ 1149 TD/TT: Fur Blower Operator: CULLEN HealthcareRadiology Study observation (narrative)NOMS HealthcareUS OB BPP W NON-STRESSOrdered By: Radiologist Radiology on 85-82-0611JSQK Healthcare Work Phone: no Panel InformationOrdered By: Moi Rueda on 10-89-3600Unyul Gp B [facility] CampusUrinalysis macro (dipstick) panel (U)on 42-93-0415Bvkimoous, UANegativeNegative - 4(70) +++ mg/dL NOMS HealthcareBlood, [...] mg/dLNOMS HealthcareNOMS HealthcareUS OB BPP W NON-STRESSon 59-46-3910Zkc[place] [address] Ultrasound Report Signed Patient: COLTON MEDRANO MR#: [id number] : 1995 Acct:[id number] Age/Sex: 28 / F ADM Date: 06/20/24 Loc: US Attending Dr: Moi Rueda D.O. Ordering Physician: Moi Rueda D.O. Date of Service: 06/20/24 Procedure(s): US OB BPP w non-stress Accession Number(s): [id number] cc: Moi Rueda D.O.; LUCILA ARNETT [place] [address] Patient Name: COLTON MEDRANO MRN: [facility]:[id number] date: 1995 Sex: F Assigned Patient Location: [facility] Current Patient Location: Accession/Order Number: [id number] Exam Date: 06/20/2024 11:04 Report Date: 06/20/2024 [...] Signed By: 06/20/24 1233 DD/ 1230 TD/TT: Fur Blower Operator:BENNYHRadiology, Radiologist, - 06/20/2024 [place] [address] Ultrasound Report Signed Patient: COLTON MEDRANO MR#: [id number] : 1995 Acct:[id number] Age/Sex: 28 / F ADM Date: 06/20/24 Loc: US Attending Dr: Moi Rueda D.O. Ordering Physician: Moi Rueda D.O. Date of Service: 06/20/24 Procedure(s): US OB BPP w non-stress Accession Number(s): [id number] cc: Moi Rueda D.O.; LUCILA ARNETT [place] [phone] Patient Name: COLTON MEDRANO MRN: [facility]:[id number] date: 1995 Sex: F Assigned Patient Location: [facility] Current Patient Location: Accession/Order Number: [id number] Exam Date: 06/20/2024 11:04 Report Date: 06/20/2024 [...] Signed By: 06/20/24 1233 DD/ 1230 TD/TT: Fur Blower Operator: CULLEN HealthcareRadiology Study observation (narrative)NOMS HealthcareUS OB BPP W NON-STRESSOrdered By: Radiologist Radiology on 38-28-9228CJLM Healthcare Work Phone: US OB BPP W NON-STRESSon 32-75-8524IphB[place] [address] Ultrasound Report Signed Patient: COLTON MEDRANO MR#: [id number] : 1995 Acct:[id number] Age/Sex: 28 / F ADM Date: 06/13/24 Loc: US Attending Dr: Moi Rueda D.O. Ordering Physician: Moi Rueda D.O. Date of Service: 06/13/24 Procedure(s): US OB BPP w non-stress Accession Number(s): [id number] cc: Moi Rueda D.O.; LUCILA ARNETT [place] [address] Patient Name: COLTON MEDRANO MRN: [facility]:[id number] date: 1995 Sex: F Assigned Patient Location: [facility] Current Patient Location: Accession/Order Number: [id number] Exam Date: 06/13/2024 10:53 Report Date: 06/14/2024 [...] M.D. Signed By: 06/14/24422 DD/ 0 TD/TT: Fur Blower Operator:BENNYHRadiology, Radiologist, - 06/14/2024 [place] [address] Ultrasound Report Signed Patient: COLTON MEDRANO MR#: [id number] : 1995 Acct:[id number] Age/Sex: 28 / F ADM Date: 06/13/24 Loc: US Attending Dr: Moi Rueda D.O. Ordering Physician: Moi Rueda D.O. Date of Service: 06/13/24 Procedure(s): US OB BPP w non-stress Accession Number(s): [id number] cc: Moi Rueda D.O.; LUCILA ARNETT [place] [address] Patient Name: COLTON MEDRANO MRN: [id number]:[id number] date: 1995 Sex: F Assigned Patient Location: [facility] Current Patient Location: Accession/Order Number: [id number] Exam Date: 06/13/2024 10:53 Report Date: 06/14/2024 [...] M.D. Signed By: 06/14/24422 DD/ 0 TD/TT: Fur Blower Operator: NOMRosa HealthcareRadiology Study observation (narrative)NOMS HealthcareUS OB BPP W NON-STRESSOrdered By: Radiologist Radiology on 89-17-8336GNEP Healthcare Work Phone: US OB CERVICAL LENGTHon [phone] [address] Ultrasound Report Signed Patient: COLTON MEDRANO MR#: [id number] : 1995 Acct:[id number] Age/Sex: 28 / F ADM Date: 06/06/24 Loc: [facility] 250-[address]: Moi Rueda D.O. Ordering Physician: Moi Rueda D.O. Date of Service: 06/06/24 Procedure(s): US OB cervical length Accession Number(s): [id number] cc: Moi Rueda D.O.; LUCILA ARNETT [place] [phone] Patient Name: COLTON MEDRANO MRN: [id number] date: 1995 Sex: F Assigned Patient Location: [facility] Current Patient Location: [facility] Accession/Order Number: [id number] Exam Date: 06/06/2024 12:58 Report Date: 06/06/2024 [...] Signed By: 06/06/24 1449 DD/ 144 TD/TT: Fur Blower Operator:TBHRadiology, Radiologist, - 06/06/2024 [place] [address] Ultrasound Report Signed Patient: COLTON MEDRANO MR#: [id number] : 1995 Acct:[id number] Age/Sex: 28 / F ADM Date: 06/06/24 Loc: [facility] [address]: Moi Rueda D.O. Ordering Physician: Moi Rueda D.O. Date of Service: 06/06/24 Procedure(s): US OB cervical length Accession Number(s): [id number] cc: Moi Rueda D.O.; LUCILA ARNETT [place] [address] Patient Name: COLTON MEDRANO MRN: [id number]:[id number] date: 1995 Sex: F Assigned Patient Location: [facility] Current Patient Location: [facility] Accession/Order Number: [id number] Exam Date: 06/06/2024 12:58 Report Date: 06/06/2024 [...] Signed By: 06/06/24 1449 DD/ 144 TD/TT: Fur Blower Operator: CULLEN HealthcareRadiology Study observation (narrative)CULLEN BrannonUS OB CERVICAL LENGTHOrdered By: Radiologist Radiology on 50-51-3808QDAY [employer] Work Phone: US OB BPP W NON-STRESSon 18-28-7105Bta[place], [place] [address] Ultrasound Report Signed Patient: COLTON MEDRANO MR#: [id number] : 1995 Acct:[id number] Age/Sex: 28 / F ADM Date: 06/06/24 Loc: [facility] 250-[address]: Moi Rueda D.O. Ordering Physician: Moi Rueda D.O. Date of Service: 06/06/24 Procedure(s): US OB BPP w non-stress Accession Number(s): [id number] cc: Moi Rueda D.O.; LUCILA ARNETT [place] [address] Patient Name: COLTON MEDRANO MRN: [id number] date: 1995 Sex: F Assigned Patient Location: [facility] Current Patient Location: [facility] Accession/Order Number: [id number] Exam Date: 06/06/2024 11:15 Report Date: 06/06/2024 [...] Signed By: 06/06/24 120 DD/ 02 TD/TT: Fur Blower Operator:TERRIadiologJohanna gould MD - 06/06/2024 [place] [address] Ultrasound Report Signed Patient: COLTON MEDRANO MR#: [id number] : 1995 Acct:[id number] Age/Sex: 28 / F ADM Date: 06/06/24 Loc: [facility] 250-[address]: Moi Rueda D.O. Ordering Physician: Moi Rueda D.O. Date of Service: 06/06/24 Procedure(s): US OB BPP w non-stress Accession Number(s): [id number] cc: Moi Rueda D.O.; LUCILA ARNETT [place] [address] Patient Name: COLTON MEDRANO MRN: [id number] date: 1995 Sex: F Assigned Patient Location: [facility] Current Patient Location: [facility] Accession/Order Number: [id number] Exam Date: 06/06/2024 11:15 Report Date: 06/06/2024 [...] Signed By: 06/06/24 1206 DD/ 120 TD/TT: Fur Blower Operator: CULLEN HealthcareRadiology Study observation (narrative)NOMS HealthcareUS OB BPP W NON-STRESSOrdered By: Radiologist Radiology on 45-76-9541QSWQ Healthcare Work Phone: US OB GROWTHon [phone] [address] Ultrasound Report Signed Patient: COLTON MEDRANO MR#: [id number] : 1995 Acct:[id number] Age/Sex: 28 / F ADM Date: 06/05/24 Loc: [facility] Attending Dr: Moi Rueda D.O. Ordering Physician: Moi Rueda D.O. Date of Service: 06/05/24 Procedure(s): US OB growth Accession Number(s): [id number] cc: Moi Rueda D.O.; LUCILA ARNETT [place] [address] Patient Name: COLTON MEDRANO MRN: [id number] date: 1995 Sex: F Assigned Patient Location: [facility] Current Patient Location: [facility] Accession/Order Number: [id number] Exam Date: 06/05/2024 09:55 Report Date: 06/05/2024 [...] Signed By: 06/05/24 1125 DD/ 1122 TD/TT: Fur Blower Operator:BENNYHRadiology, Radiologist, - 06/05/2024 [place] [address] Ultrasound Report Signed Patient: COLTON MEDRANO MR#: [id number] : 1995 Acct:[id number] Age/Sex: 28 / F ADM Date: 06/05/24 Loc: [facility] Attending Dr: Moi Rueda D.O. Ordering Physician: Moi Rueda D.O. Date of Service: 06/05/24 Procedure(s): US OB growth Accession Number(s): [id number] cc: Moi Rueda D.O.; LUCILA ARNETT [place] [phone] Patient Name: COLTON MEDRANO MRN: [id number] date: 1995 Sex: F Assigned Patient Location: [facility] Current Patient Location: [facility] Accession/Order Number: [id number] Exam Date: 06/05/2024 09:55 Report Date: 06/05/2024 [...] Age by EDC: 32 weeks 5 days ISNA by EDC: 2024-07-26 Age by US: 33 weeks 3 days SINA by US: 2024-07-21 US/US OB growth IMPRESSION: Normal interval growth Electronically authenticated by: DARLINE ESPITIA Date: 06/05/2024 11:22 Dictated By: Darline Espitia M.D. Signed By: 06/05/245 DD/ 21 TD/TT: Fur Blower Operator: [facility] NorthRadiology Study observation (narrative)[facility] NorthUS OB GROWTHOrdered By: Radiologist Radiology on 11-17-6767YMFBCox North Work Phone: Urinalysis macro (dipstick) panel (U)on 06-05-2024 Bilirubin, UANegativeNegative - 4(70) +++ mg/dLNOMS HealthcareBlood, UAPositive Negative - 50 Jt/mcLNOMS HealthcareComment on above:trace-intactClarity, UA ClearNOMS HealthcareColor, UAYellowNOOR HealthcareGlucose, UANegativeNegative - 2000(110) ++++ mg/dLNOOR HealthcareInterpretation and review of laboratory resultsAbnormalNOOR HealthcareKetones, UANegativeNegative - 160(16) ++++ mg/dL [facility] HealthcareLeukocytes, UANegativeNegative - 500+++ [place]/mcLNOMS Healthcare Nitrite, UANegativeNegative - PositiveNOMS HealthcarepH, UA75 - 9NOMS Healthcare Protein, UANegativeNegative - 2000(20) ++++ mg/dLNOMS HealthcareSpec Grav, UA 1.021 - 1.03NOMS HealthcareUrobilinogen, UA1.00.2 - 12 mg/dLNOMS HealthcareNOMS HealthcareUS OB BPP W NON-STRESSon 80-08-8184Voq[place] [address] Ultrasound Report Signed Patient: COLTON MEDRANO MR#: [id number] : 1995 Acct:[id number] Age/Sex: 28 / F ADM Date: 05/30/24 Loc: [facility] 254-[address]: Moi Rueda D.O. Ordering Physician: Moi Rueda D.O. Date of Service: 05/30/24 Procedure(s): US OB BPP w non-stress Accession Number(s): [id number] cc: Moi Rueda D.O.; LUCILA ARNETT [place] [address] Patient Name: COLTON MEDRANO MRN: [id number] date: 1995 Sex: F Assigned Patient Location: [facility] Current Patient Location: [facility] Accession/Order Number: [id number] Exam Date: 05/30/2024 10:43 Report Date: 05/30/2024 [...] Signed By: 05/30/24 1114 DD/ 1111 TD/TT: Fur Blower Operator:TBHRadiology, Radiologist, - 05/30/2024 [place] [address] Ultrasound Report Signed Patient: COLTON MEDRANO MR#: [id number] : 1995 Acct:[id number] Age/Sex: 28 / F ADM Date: 05/30/24 Loc: [facility] 254-[address]: Moi Rueda D.O. Ordering Physician: Moi Rueda D.O. Date of Service: 05/30/24 Procedure(s): US OB BPP w non-stress Accession Number(s): [id number] cc: Moi Rueda D.O.; LUCILA ARNETT [place] [address] Patient Name: COLTON MEDRANO MRN: [id number] date: 1995 Sex: F Assigned Patient Location: [facility] Current Patient Location: [facility] Accession/Order Number: [id number] Exam Date: 05/30/2024 10:43 Report Date: 05/30/2024 [...] Signed By: 05/30/24 1114 DD/ 1111 TD/TT: Fur Blower Operator: CULLEN HealthcareRadiology Study observation (narrative)NOMS HealthcareUS OB BPP W NON-STRESSOrdered By: Radiologist Radiology on 90-72-2581RLAR Healthcare Work Phone: Urinalysis macro (dipstick) panel (U)on 05-19-2024 Bilirubin, UANegativeNegative - 4(70) +++ mg/dLNOMS HealthcareBlood, UANegative Negative - 50 Jt/mcLNOMS HealthcareClarity, UAClearNOMS HealthcareColor, UA YellowNOMS HealthcareGlucose, UANegativeNegative - 2000(110) ++++ mg/dLNOMS HealthcareInterpretation and review of laboratory resultsNormalNOOR Healthcare Ketones, UANegativeNegative - 160(16) ++++ mg/dLNOMS HealthcareLeukocytes, UA NegativeNegative - 500+++ [place]/mcLNOMS HealthcareNitrite, UANegativeNegative - PositiveNOMS HealthcarepH, UA7.05 - 9NOMS HealthcareProtein, UANegativeNegative - 2000(20) ++++ mg/dLNOMS HealthcareSpec Grav, UA1.0201 - 1.03NOMS Healthcare Urobilinogen, UA1.00.2 - 12 mg/dLNOMS HealthcareNOMS HealthcareUS OB CERVICAL LENGTHon 02-03-1724Ria[place] [address] Ultrasound Report Signed Patient: COLTON MEDRANO MR#: [id number] : 1995 Acct:[id number] Age/Sex: 28 / F ADM Date: 05/13/24 Loc: [facility] Attending Dr: Moi Rueda D.O. Ordering Physician: Moi Rueda D.O. Date of Service: 05/13/24 Procedure(s): US OB cervical length Accession Number(s): [id number] cc: Moi Rueda D.O.; LUCILA ARNETT [address] [address] Patient Name: COLTON MEDRANO MRN: [id number] date: 1995 Sex: F Assigned Patient Location: [facility] Current Patient Location: Accession/Order Number: [id number] Exam Date: 05/13/2024 14:38 Report Date: 05/14/2024 [...] Signed By: 05/14/24 0431 DD/ 0429 TD/TT: Fur Blower Operator:TBHRadiology, Radiologist, - 05/14/2024 [place] [address] Ultrasound Report Signed Patient: COLTON MEDRANO MR#: [id number] : 1995 Acct:[id number] Age/Sex: 28 / F ADM Date: 05/13/24 Loc: [facility] Attending Dr: Moi Rueda D.O. Ordering Physician: Moi Rueda D.O. Date of Service: 05/13/24 Procedure(s): US OB cervical length Accession Number(s): [id number] cc: Moi Rueda D.O.; LUCILA ARNETT [place] [address] Patient Name: COLTON MEDRANO MRN: [id number] date: 1995 Sex: F Assigned Patient Location: [facility] Current Patient Location: Accession/Order Number: [id number] Exam Date: 05/13/2024 14:38 Report Date: 05/14/2024 [...] M.D. Signed By: 05/14/24430 DD/ 8 TD/TT: Fur Blower Operator: CULLEN HealthcareRadiology Study observation (narrative)CULLEN HealthcareUS OB CERVICAL LENGTHOrdered By: Radiologist Radiology on 98-33-2714FCYI Healthcare Work Phone: US OB GROWTHon [phone] [address] Ultrasound Report Signed Patient: COLTON MEDRANO MR#: [id number] : 1995 Acct:[id number] Age/Sex: 28 / F ADM Date: 05/08/24 Loc: [facility] Attending Dr: Moi Rueda D.O. Ordering Physician: Moi Rueda D.O. Date of Service: 05/08/24 Procedure(s): US OB growth Accession Number(s): [id number] cc: Moi Rueda D.O.; LUCILA ARNETT [place] [address] Patient Name: COLTON MEDRANO MRN: [id number] date: 1995 Sex: F Assigned Patient Location: [facility] Current Patient Location: [facility] Accession/Order Number: [id number] Exam Date: 05/08/2024 10:32 Report Date: 05/08/2024 [...] Signed By: 05/08/24 1233 DD/ 1230 TD/TT: Fur Blower Operator:TBHRadiology, Radiologist, - 05/08/2024 [place] [address] Ultrasound Report Signed Patient: COLTON MEDRANO MR#: [id number] : 1995 Acct:[id number] Age/Sex: 28 / F ADM Date: 05/08/24 Loc: [facility] Attending Dr: Moi Rueda D.O. Ordering Physician: Moi Rueda D.O. Date of Service: 05/08/24 Procedure(s): US OB growth Accession Number(s): [id number] cc: Moi Rueda D.O.; LUCILA ARNETT [place] [address] Patient Name: COLTON MEDRANO MRN: [id number] date: 1995 Sex: F Assigned Patient Location: [facility] Current Patient Location: [facility] Accession/Order Number: [id number] Exam Date: 05/08/2024 10:32 Report Date: 05/08/2024 [...] Signed By: 05/08/24 1233 DD/ 1230 TD/TT: Fur Blower Operator: [facility] HealthcareRadiology Study observation (narrative)[facility] NorthUS OB GROWTHOrdered By: Radiologist Radiology on 35-51-7390AIXA [facility] Work Phone: Urinalysis macro (dipstick) panel (U)on 05-08-2024 Bilirubin, UANegativeNegative - 4(70) +++ mg/dLNOMS HealthcareBlood, UAPositive Negative - 50 Jt/mcLNOMS HealthcareComment on above:traceClarity, UAClearNOMS HealthcareColor, UAYellowNOMS HealthcareGlucose, UANegativeNegative - 2000(110) ++++ mg/dLNOMS HealthcareInterpretation and review of laboratory resultsAbnormal [facility] HealthcareKetones, UANegativeNegative - 160(16) ++++ mg/dLCox North Leukocytes, UANegativeNegative - 500+++ [place]/mcLNOI-70 Community HospitalNitrite, UA NegativeNegative - PositiveNOOR HealthcarepH, UA7.05 - 9NOOR HealthcareProtein, UANegativeNegative - 2000(20) ++++ mg/dLKANE COUNTY HUMAN RESOURCE SSD HealthcareSpec Grav, UA1.0101 - 1.03NOOR HealthcareUrobilinogen, UA1.00.2 - 12 mg/dLLafayette Regional Health Center HealthcareALL CBC WITH AUTO DIFFon [id number] ABSOLUTE AUTO0.1NOMS HealthcareBasophils/100 WBC (Bld)0.8 %0.2 - 2.0 %[facility]ox NorthEosinophils/100 WBC (Bld)1.3 %0.9 - 7.0 %Cox NorthErythrocyte distribution width (RBC) [Ratio]11.9 %11.0 - 15.0 %[facility] NorthHematocrit (Bld) [Volume fraction]31.4 %Low36.0 - 48.0 %[facility] NorthHemoglobin (Bld) [Mass/Vol]10.6 g/dLLow12.0 - 16.0 g/dLCox NorthIMMATURE GRANULOCYTES ABS AUTO0.22HighCox North Immature granulocytes/100 WBC (Bld)2.6 %High0.0 - 0.5 %[facility] Interpretation and review of laboratory resultsAbnormalC[facility] LYMPHOCYTES ABSOLUTE AUTO1.5NO[facility]70 Community HospitalLymphocytes/100 WBC (Bld)17.5 %Low 20.5 - 60.0 %[facility] CenterH (RBC) [Entitic mass]32.4 pg26.7 - 34.0 pgHedrick Medical CenterHC (RBC) [Mass/Vol]33.8 g/dL29.9 - 35.2 g/dLHedrick Medical CenterV (RBC) [Entitic vol]96.0 fL81.0 - 99.0 fLCox NorthMONOCYTES ABSOLUTE AUTO0.9High [facility] NorthMonocytes/100 WBC (Bld)10.6 %1.7 - 12.0 %[facility] NEUTROPHILS ABSOLUTE AUTO5.7[facility] HospitalNeutrophils/100 WBC (Bld)67.2 %43.0 - 75.0 %[facility] NorthPlatelet mean volume (Bld) [Entitic vol]9.0 fLLow9.5 - 13.5 fLCox NorthTBH EO #0.1NOMS [facility] HospitalTB DEL106LWEC [facility] RBC3.27 LowNOI-70 Community HospitalTB WBC8.5NO[facility]-70 Community HospitalCLINISYNCNOMS HealthcareALL CBC WITH AUTO DIFFon 43-14-1529TWZQDVHGM ABSOLUTE AUTO0.0NOOR HealthcareBasophils/100 WBC (Bld)0.4 %0.2 - 2.0 %NOMSt. Joseph Medical CenterEosinophils/100 WBC (Bld)0.9 %0.9 - 7.0 % [facility] NorthErythrocyte distribution width (RBC) [Ratio]12.0 %11.0 - 15.0 % [facility] NorthHematocrit (Bld) [Volume fraction]33.3 %Low36.0 - 48.0 %[facility] NorthHemoglobin (Bld) [Mass/Vol]11.5 g/dLLow12.0 - 16.0 g/dLCox North IMMATURE GRANULOCYTES ABS AUTO0.16HighCox NorthImmature granulocytes/100 WBC (Bld)1.8 %High0.0 - 0.5 %[facility] NorthInterpretation and review of laboratory resultsAbnormalNOI-70 Community HospitalLYMPHOCYTES ABSOLUTE AUTO1.3NOMS [facility] [place] [facility] HospitalLymphocytes/100 WBC (Bld)14.5 %Low20.5 - 60.0 %[facility] CenterH (RBC) [Entitic mass]33.0 pg26.7 - 34.0 pgHedrick Medical CenterHC (RBC) [Mass/Vol] 34.5 g/dL29.9 - 35.2 g/dLCox NorthMCV (RBC) [Entitic vol]95.7 fL81.0 - 99.0 fLCox NorthMONOCYTES ABSOLUTE AUTO0.6NOMS [facility] [place] [facility] HospitalMonocytes/100 WBC (Bld)6.5 %1.7 - 12.0 %[facility]ox NorthNEUTROPHILS ABSOLUTE AUTO6.8HighNOI-70 Community HospitalNeutrophils/100 WBC (Bld)75.9 %High43.0 - 75.0 %[facility] Platelet mean volume (Bld) [Entitic vol]9.2 fLLow9.5 - 13.5 fLNOMS HealthcareTBH EO #0.1NOMS HealthcareTBH LZV906AMSX HealthcareTBH RBC3.48LowNOMS HealthcareTBH WBC8.9NOMS HealthcareCLINISYNCNOMS HealthcareUrinalysis macro (dipstick) panel (U)on 63-06-5352Ftazyasjc, UANegativeNegative - 4(70) +++ mg/dLNOMS Healthcare Blood, UANegativeNegative - 50 Jt/mcLNOMS HealthcareClarity, UAClearNOMS HealthcareColor, UAYellowNOMS HealthcareGlucose, UAPositiveNegative - 2000(110) ++++ mg/dLNOMS HealthcareComment on above:500Interpretation and review of laboratory resultsAbnormalNOMS HealthcareKetones, UANegativeNegative - 160(16) ++++ mg/dLNOMS HealthcareLeukocytes, UANegativeNegative - 500+++ [place]/mcLNOMS HealthcareNitrite, UANegativeNegative - PositiveNOMS HealthcarepH, UA6.55 - 9 NOMS HealthcareProtein, UANegativeNegative - 2000(20) ++++ mg/dLNOMS Healthcare Spec Grav, UA1.0201 - 1.03NOOR HealthcareUrobilinogen, UA0.20.2 - 12 mg/dLNOMS HealthcareNOOR HealthcareUrinalysis macro (dipstick) panel (U)on 04-10-2024 Bilirubin, UANegativeNegative - 4(70) +++ mg/dLNOMS HealthcareBlood, UANegative Negative - 50 Jt/mcLNOMS HealthcareClarity, UAClearNOMS HealthcareColor, UA YellowNOMS HealthcareGlucose, UANegativeNegative - 2000(110) ++++ mg/dLNOMS HealthcareInterpretation and review of laboratory resultsNormalK[facility] Ketones, UANegativeNegative - 160(16) ++++ mg/dLNOMS HealthcareLeukocytes, UA NegativeNegative - 500+++ [place]/mcLNOMS HealthcareNitrite, UANegativeNegative - PositiveNOMS HealthcarepH, UA6.05 - 9NOMS HealthcareProtein, UANegativeNegative - 2000(20) ++++ mg/dLNOOR HealthcareSpec Grav, UA1.0151 - 1.03[facility] Urobilinogen, UA1.00.2 - 12 mg/dLNOHannibal Regional Hospital HealthcareUltrasound - Officeon 67-16-6130Giussnjti Study observation (narrative)[facility] SystemUS OB CERVICAL LENGTHon 29-54-0962[place]sj[place] [address] Ultrasound Report Signed Patient: COLTON MEDRANO MR#: [id number] : 1995 Acct:[id number] Age/Sex: 28 / F ADM Date: 03/13/24 Loc: NOMS Attending Dr: Moi Rueda D.O. Ordering Physician: Moi Rueda D.O. Date of Service: 03/13/24 Procedure(s): US OB cervical length Accession Number(s): [id number] cc: Moi Rueda D.O.; LUCILA ARNETT [place] [address] Patient Name: COLTON MEDRANO MRN: [id number] date: 1995 Sex: F Assigned Patient Location: [facility] Current Patient Location: [facility] Accession/Order Number: [id number] Exam Date: 03/13/2024 10:53 Report Date: 03/13/2024 [...] Signed By: 03/13/24 1131 DD/ 1129 TD/TT: Fur Blower Operator:TERRIadiolkenroy, Radiologist, - 03/13/2024 [place] [address] Ultrasound Report Signed Patient: COLTON MEDRANO MR#: [id number] : 1995 Acct:[id number] Age/Sex: 28 / F ADM Date: 03/13/24 Loc: NOMS Attending Dr: Moi Rueda D.O. Ordering Physician: Moi Rueda D.O. Date of Service: 03/13/24 Procedure(s): US OB cervical length Accession Number(s): [id number] cc: Moi Rueda D.O.; LUCILA ARNETT [place] [address] Patient Name: COLTON MEDRANO MRN: [facility]:[id number] date: 1995 Sex: F Assigned Patient Location: [facility] Current Patient Location: [facility] Accession/Order Number: [id number] Exam Date: 03/13/2024 10:53 Report Date: 03/13/2024 [...] Signed By: 03/13/24 1131 DD/ 1129 TD/TT: Fur Blower Operator: CULLEN HealthcareRadiology Study observation (narrative)NOMRosa HealthcareUS OB CERVICAL LENGTHOrdered By: Radiologist Radiology on 69-55-8866CP[facility] Work Phone: Ultrasound - Officeon 38-69-6819NawRpictz Health SystemUltrasound - Officeon 63-13-5361Xgzkvjryx Study observation (narrative) [facility] SystemUS APPENDIXon 26-17-7762XyeN[place] [id number] Ultrasound Report Signed Patient: COLTON MEDRANO MR#: [id number] : 1995 Acct:[id number] Age/Sex: 28 / F ADM Date: 12/26/23 Loc: US Attending Dr: Moi Rueda D.O. Ordering Physician: Moi Rueda D.O. Date of Service: 12/26/23 Procedure(s): US appendix Accession Number(s): [id number] cc: Moi Rueda D.O.; LUCILA ARNETT [place] [address] Patient Name: COLTON MEDRANO MRN: [facility]:[id number] date: 1995 Sex: F Assigned Patient Location: US Current Patient Location: US Accession/Order Number: [id number] Exam Date: 12/26/2023 12:42 Report Date: 12/26/2023 [...] Signed By: 12/26/23 1348 DD/ 1345 TD/TT: Fur Blower Operator:TBHRadiology, Radiologist, MD - 12/26/2023 [place] [address] Ultrasound Report Signed Patient: COLTON MEDRANO MR#: [id number] : 1995 Acct:[id number] Age/Sex: 28 / F ADM Date: 12/26/23 Loc: US Attending Dr: Moi Rueda D.O. Ordering Physician: Moi Rueda D.O. Date of Service: 12/26/23 Procedure(s): US appendix Accession Number(s): [id number] cc: Moi Rueda D.O.; LUCILA ARNETT [address] [id number] Patient Name: COLTON MEDRANO MRN: [id number] date: 1995 Sex: F Assigned Patient Location: US Current Patient Location: US Accession/Order Number: [id number] Exam Date: 12/26/2023 12:42 Report Date: 12/26/2023 [...] Signed By: 12/26/23 1348 DD/ 1345 TD/TT: Fur Blower Operator: CULLEN HealthcareRadiology Study observation (narrative)CULLEN Velasco APPENDIX Ordered By: Radiologist Radiology on 26-24-9968NKQS [facility] Work Phone: US OB TRANSVAGINALon 64-17-1340Aqc[place] [address] Ultrasound Report Signed Patient: COLTON MEDRANO MR#: [id number] : 1995 Acct:[id number] Age/Sex: 28 / F ADM Date: 12/26/23 Loc: US Attending Dr: Moi Rueda D.O. Ordering Physician: Moi Rueda D.O. Date of Service: 12/26/23 Procedure(s): US OB transvaginal Accession Number(s): [id number] cc: Moi Rueda D.O.; LUCILA ARNETT [address] [phone] Patient Name: COLTON MEDRANO MRN: [id number] date: 1995 Sex: F Assigned Patient Location: US Current Patient Location: US Accession/Order Number: [id number] Exam Date: 12/26/2023 12:42 Report Date: 12/26/2023 [...] Signed By: 12/26/23 1347 DD/ 1344 TD/TT: Fur Blower Operator:TBHRadiology, Radiologist, MD - 12/26/2023 [place] [address] Ultrasound Report Signed Patient: COLTON MEDRANO MR#: [id number] : 1995 Acct:[id number] Age/Sex: 28 / F ADM Date: 12/26/23 Loc: US Attending Dr: Moi Rueda D.O. Ordering Physician: Moi Rueda D.O. Date of Service: 12/26/23 Procedure(s): US OB transvaginal Accession Number(s): [id number] cc: Moi Rueda D.O.; LUCILA ARNETT [place] [phone] Patient Name: COLTON MEDRANO MRN: [facility]:[id number] date: 1995 Sex: F Assigned Patient Location: US Current Patient Location: Accession/Order Number: [id number] Exam Date: 12/26/2023 12:42 Report Date: 12/26/2023 [...] M.D. Signed By: 12/26/231346 DD/ 43 TD/TT: Fur Blower Operator: CULLEN HealthcareRadiology Study observation (narrative)NOMS HealthcareUS OB TRANSVAGINALOrdered By: Radiologist Radiology on 80-83-0242CHXJ Healthcare Work Phone: US OB TRANSVAGINALon 49-40-6475[address] [address] Ultrasound Report Signed Patient: Colton MEDRANO MR#: [id number] : 1995 Acct:[id number] Age/Sex: 28 / F ADM Date: 12/13/23 Loc: NOMS Attending Dr: Moi Rueda D.O. Ordering Physician: Moi Rueda D.O. Date of Service: 12/13/23 Procedure(s): US OB transvaginal Accession Number(s): [id number] cc: Moi Rueda D.O.; LUCILA ARNETT [place] [phone] Patient Name: COLTON MEDRANO MRN: [id number] date: 1995 Sex: F Assigned Patient Location: [facility] Current Patient Location: [facility] Accession/Order Number: [id number] Exam Date: 12/13/2023 12:25 Report Date: 12/13/2023 [...] Signed By: 12/13/23 1340 DD/ 1337 TD/TT: Fur Blower Operator:BENNYHRadiology, Radiologist, MD - 12/13/2023 [place] [address] Ultrasound Report Signed Patient: Colton MEDRANO MR#: [id number] : 1995 Acct:[id number] Age/Sex: 28 / F ADM Date: 12/13/23 Loc: NOMS Attending Dr: Moi Rueda D.O. Ordering Physician: Moi Rueda D.O. Date of Service: 12/13/23 Procedure(s): US OB transvaginal Accession Number(s): [id number] cc: Moi Rueda D.O.; LUCILA ARNETT [place] [phone] Patient Name: COLTON MEDRANO MRN: [id number] date: 1995 Sex: F Assigned Patient Location: [facility] Current Patient Location: [facility] Accession/Order Number: [id number] Exam Date: 12/13/2023 12:25 Report Date: 12/13/2023 [...] Signed By: 12/13/23 1340 DD/ 1337 TD/TT: Fur Blower Operator: CULLEN HealthcareRadiology Study observation (narrative)[facility] HEALTH CENTERRosa HealthcareUS OB TRANSVAGINALOrdered By: Radiologist Radiology on 99-29-8813VINH Healthcare Work Phone: Ultrasound - Officeon 05-41-3273SwzXhgxtrPremier Health Miami Valley Hospital.beta subunit Qnon 74-57-0549iJS Lzors671641 mIU/mLNormalPremier Health Miami Valley Hospital on above:Order Comment: Reference Ranges Negative [...] with a different immunoassay method.Performed By: #### 43318-4 #### [facility] [address] [place] [address]RWK.beta subunit Qnon 65-33-2342jDA Exwrl60892 mIU/mLNormal [facility] on above:Order Comment: Reference Ranges Negative [...] with a different immunoassay method.Performed By: #### 24882-9 #### [facility] [address] [place], [place] [address]SYV.beta subunit Qnon 22-31-4090hEX Asrfe44537 mIU/mLNormal [facility] on above:Order Comment: Reference Ranges Negative [...] with a different immunoassay method.Performed By: #### 15319-3 #### [facility] [address] [place], [place] [address]BBF.beta subunit Qnon 56-72-7423sIB Dzwbe96542 mIU/mLNormal [facility] on above:Order Comment: Reference Ranges Negative [...] with a different immunoassay method.Performed By: #### 89780-1 #### [facility] [address] [place], [place] [address]KUU.beta subunit Qnon 82-91-3535tIO Dazck4680 mIU/mLNormal [facility] on above:Order Comment: Reference Ranges Negative [...] with a different immunoassay method.Performed By: #### 88042-9 #### [facility] [address] [place], [place] [address]AJW.beta subunit Qnon 95-00-4749rYN Oqyyz411 mIU/mLNormalMoUK Healthcare on above:Order Comment: Reference Ranges Negative = [...] with a different immunoassay method.Performed By: #### 47581-3 #### [facility] [address] [place], [place] [address]YYY.beta subunit Qnon 03-78-2341zCV Jjuks186 mIU/mLNormalMount Tippah County Hospital on above:Order Comment: Reference Ranges Negative [...] with a different immunoassay method.Performed By: #### 66075-4 #### [facility] [address] [place] [address].Thyroglobulin by [place] 51-86-4345Agqbzsbqgrlub [Mass/Vol]5.0 ng/mLInvalid Interpretation Code1.5-38.5FParkview Health Bryan HospitalComment on above:Result Comment: According to the [...] by John Vish Immunometric Assay Performed at: [facility] [id number] PhD Johanny NietoPerformed By: #### 0251443, 49107285, 46529020, 8767072, [id number], 352504254, 84048271 #### [facility] [address] [place], [place] [address]J1 [facility] 04-37-7830Ezjm T3 [Mass/Vol]3.2 pg/mLInvalid Interpretation Code2.0-4.4FParkview Health Bryan HospitalComment on above:Result Comment: Performed at: [facility] [address] [place], [place] [id number] PhD Johanny NietoPerformed By: #### 9139608, 98974865, 66855547, 7234661, 856048518, 972796459, 38453076 #### [facility] [address] [place], [place] [address]HxHg+Thyroglobulinon 80-92-3330Fjfimnwofiyeu Ab Qn[IU]/mL Invalid Interpretation Code0.0-0.9[facility]ost[facility] Community HospitalComment on above: Result Comment: Thyroglobulin Antibody measured by 50 Cubes Methodology It should be noted that the presence of thyroglobulin antibodies may not be pathogenic nor diagnostic, especially at very low levels. The assay vp corporate development has found that four percent of individuals without evidence of thyroid disease or autoimmunity will have positive TgAb levels up to 4 IU/mL. Performed at: [address] [id number] PhD Johanny NietoPerformed By: #### 1078643, 87561216, 60193918, 0375088, 309619008, 238282790, 06008519 #### [facility] [address] [place], [place] [address]Enhnewu Perox.tpo Abon 68-38-2598MXP Ab Qn[IU]/mLInvalid Interpretation Code0-34Prom[facility]ostoria Community HospitalComment on above:Result Comment: Performed at: [address] [id number] PhD Johanny NietoPerformed By: #### 1851431, 18877715, 23140944, 1056634, 674302260, 794574489, 40832675 #### [facility] [address] [place], [place] [address]AlJC Quanton 22-13-5311PEH.beta subunit Qn86 m[IU]/mLHigh1-3 [facility] Community HospitalComment on above:Result Comment: 'F NON < 1 - 3' ' 0.2 - 1 WEEK = 5 TO 50' ' 1 - 2 WEEKS = 50 - 500' ' 2 - 3 WEEKS = 100 - 5000' ' 3 - 4 WEEKS = 500 - 20931' ' 4 - 5 WEEKS = 1000 - 65848' ' 5 - 6 WEEKS = 04622 - 599685' ' 6 - 8 WEEKS = 44346 - 644651' ' 8 - 12 WEEKS = 12294 - 985900'Performed By: #### [id number] #### [facility] [address] [place], [place] [address]TKZEPRFWDSonenhu By: SYSTEM SYSTEM on 89-79-9292VZJ.beta subunit Qn86 m[IU]/mLHigh1 - 3 mIU/mLRemisol ChemComment on above:Result Comment: 'F NON < 1 - 3' ' 0.2 - 1 WEEK = 5 TO 50' ' 1 - 2 WEEKS = 50 - 500' ' 2 - 3 WEEKS = 100 - 5000' ' 3 - 4 WEEKS = 500 - 59558' ' 4 - 5 WEEKS = 1000 - 16569' ' 5 - 6 WEEKS = 79291 - 937764' ' 6 - 8 WEEKS = 29703 - 488436' ' 8 - 12 WEEKS = 44123 - 802781'Iron [Mass/Vol]161 ug/jHKgiy57 - 153 mcg/dLRemisol ChemIron binding capacity [Mass/Vol]316 ug/mEYfhpmn226 - 400 mcg/dLRemisol ChemTransferrin [Mass/Vol]226 mg/kYKodjky587 - 370 mg/dLRemisol ChemTSH Qn1.53 m[IU]/LNormal0.34 - 5.60 mcIU/mLRemisol ChemConsent for Treatment on 65-04-8555Vjgxyvm for Treatment [id number]#1.00TIFFNormalPromedica Fostoria Community HospitalIronon 27-08-9067Oxvx [Mass/Vol]161 microgram/dTYwri05-303QsjrnaPromedica Fostoria Community HospitalComment on above:Performed By: #### 2494739, 93297051, 14030770, 2080254, 382811255, 329112559, 24437481 #### [facility] [address] [place], [place] [address]Vojexkyfz Orderon 29-40-4376Ytrcgtqjw Order [id number]#1.00TIFFNormalPromedica Fostoria Community HospitalTIBC Calculatedon 98-39-6643Xpst binding capacity [Mass/Vol]316 microgram/pEQelqse884-869UwpqpwPromedica Fostoria Community HospitalComment on above:Performed By: #### 4911672, 90618188, 80962994, 4623462, 691330917, 500073226, 26815325 #### [facility] [address], [place] [address]Ehdlweljplg [Mass/Vol]226 mg/sYSgvvib480-751HejrjxPromedica Fostoria Community HospitalComment on above:Performed By: #### 1496418, 24763946, 75814614, 4819063, 925085698, 396160112, 95836220 #### [facility] [address] [place], [place] [address]RBQ With T4fr Reflexon 15-95-1466LFI Qn1.53 m[IU]/LNormal 0.34-5.60[facility] Community HospitalComment on above:Performed By: #### 7825076, 61340933, 66880803, 4271800, 664605545, 107444338, 45925924 #### [facility] [address] [place], [place] [address]OUSds 48-12-1957XEX7.756 uIU/mLNormal0.470-4.680[facility] Health System West CampusComment on above:Performed By: #### TSH #### [facility] [address] [place] [address] Jayne [facility] Mercy HospitalComment on above:Result Comment: <0.34 UIU/ml HYPERTHYROID 0.34-5.60 UIU/ml EUTHYROID >5.60 UIU/ml HYPOTHYROIDPerformed By: #### TSH #### [facility] [address] [place] [address] Jayne CruzAbbott [facility] Hospital AUTO DIFFon 84-09-8967INMW #0.1 103/ulNormal0.0-0.1The [facility]'S HospitalComment on above:Performed By: #### CBC #### [facility] [address] [place] [address] Jayne KarenBasophils/100 WBC (Bld)1.2 %Normal0.2-2.0The [facility] Comment on above:Performed By: #### CBC #### [facility] [address] [place] [address] Jayne KarenEO #0.2 103/ulNormal0.0-0.7The [facility]'S HospitalComment on above: Performed By: #### CBC #### [facility] [address] [place] [address] Jayne KarenEosinophils/100 WBC (Bld)2.6 %Normal0.9-7.0The [facility] Comment on above:Performed By: #### CBC #### [facility] [address] [place] [address] Jayne KarenErythrocyte distribution width (RBC) [Ratio]12.0 %Jejaoi45.0-15.0The [facility]'S HospitalComment on above:Performed By: #### CBC #### [facility] [address] [place] [address] Jayne KarenHematocrit (Bld) [Volume fraction]40.7 %Geeqpz56.0-48.0The [facility]'S HospitalComment on above:Performed By: #### CBC #### [facility] [address] [place] [address] Jayne KarenHemoglobin (Bld) [Mass/Vol]13.6 g/eADqnfvv38.0-16.0The [facility]'S HospitalComment on above:Performed By: #### CBC #### [facility] [address] [place] [address] Jayne KarenIG #0.01 10e3/ulNormal0.00-0.03The [facility]'S HospitalComment on above:Performed By: #### CBC #### [facility] [address] [place] [address] Jayne KarenIG %0.2 %Normal0.0-0.5The [facility]'S HospitalComment on above: Performed By: #### CBC #### [facility] [address] [place] [address] Jayne HammLYMPH #1.9 103/ulNormal1.2-3.8The [facility]'S HospitalComment on above: Performed By: #### CBC #### [facility] [address] [place] [address] Jayne HammLymphocytes/100 WBC (Bld)32.5 %Nhwnbi72.5-60.0The [facility] Comment on above:Performed By: #### CBC #### [facility] [address] [place] [address] Jayne HammMANUAL DIFF REQNONormalThe [facility]'S HospitalComment on above: Performed By: #### CBC #### [facility] [address] [place] [address] Jayne KarenAMSTERDAM [facility] (RBC) [Entitic mass]31.3 ugSproey23.7-34.0[facility] Comment on above:Performed By: #### CBC #### [facility] [address] [place] [address] Jayne CruzenMCHC (RBC) [Mass/Vol]33.4 g/xBDiemdj56.9-35.2[facility] Comment on above:Performed By: #### CBC #### [facility] [address] [place] [address] Jayne HammV (RBC) [Entitic vol]93.6 dKPutpxq14.0-99.0[facility] Comment on above:Performed By: #### CBC #### [facility] [address] [place] [address] Jayne HammMONO #0.6 103/ulNormal0.3-0.8The [facility]S HospitalComment on above: Performed By: #### CBC #### [facility] [address] [place] [address] Jayne KarenMonocytes/100 WBC (Bld)10.4 %Normal1.7-12.0The [facility] Comment on above:Performed By: #### CBC #### [facility] [address] [place] [address] Jayne FloresUT #3.1 103/ulNormal1.4-6.5The [facility]S HospitalComment on above: Performed By: #### CBC #### [facility] [address] [place] [address] Jayne CruzenNeutrophils/100 WBC (Bld)53.1 %Luiutz00.0-75.0The [facility] Comment on above:Performed By: #### CBC #### [facility] [address] [place] [address] Jayne HammPlatelet mean volume (Bld) [Entitic vol]8.9 fLCritically low9.5-13.5 The [facility] HospitalComment on above:Performed By: #### CBC #### [facility] [address] [place] [address] Jayne McxkpSPS920 103/hvJiuzrt147-458Zfk [facility] HospitalComment on above: Performed By: #### CBC #### [facility] [address] [place] [address] Jayne KarenRBC4.35 106/ulNormal4.20-5.40The [facility]S HospitalComment on above: Performed By: #### CBC #### [facility] [address] [place] [address] Jayne KarenWBC5.8 103/ulNormal4.0-11.0The [facility]S HospitalComment on above: Performed By: #### CBC #### [facility] [address] [place] [address] Jayne KarenPREG QUANT HCGon 64-54-9242QHQ QUANT1.00 mIU/mLNormalThe [facility]'S HospitalComment on above:Performed By: #### PREGQNT #### [facility] [address] [place] [address] Jayne KarenHCG RANGESEE BELOWNormalThe [facility]'S HospitalComment on above:Result Comment: 5-50 0-1 WEEK 40-300 1-2 WEEKS 100-1,000 2-3 WEEKS 500-6,000 3-4 WEEKS 5,000-200,000 1-2 MONTHS 10,000-100,000 2-3 MONTHS 3,000-50,000 2ND TRIMESTER 1,000-50,000 3RD TRIMESTERPerformed By: #### PREGQNT #### [facility] [address] [place] [address] Jayne KarenPAP ACOG PANEL 2: 21 to 29on 05-06-2020..[facility] Comment on above:Performed By: #### [id number] #### [facility] [address] [place] [address] Jayne KarenAge Gdln ACOG Daokkcg02-90OroynoRrnOur Lady of Mercy HospitalComment on above:Performed By: #### [id number] #### [facility] [address] [place] [address] Jayne KarenDIAGNOSIS:CommentGreene Memorial Hospital on above:Result Comment: NEGATIVE FOR INTRAEPITHELIAL LESION OR MALIGNANCY.Performed By: #### [id number] #### [facility] [address] [place] [address] Jyane KarenMethodology:CommentNoCleveland Clinic Foundation on above: Result Comment: This liquid based SurePath(R) pap test was screened with the assistance of an image guided system.Performed By: #### [id number] #### [facility] [address] [place] [address] Jayne KarenNote:CommentGreene Memorial Hospital on above:Result Comment: The Pap smear is a screening test designed to aid in the detection of premalignant and malignant conditions of the uterine cervix. It is not a diagnostic procedure and should not be used as the sole means of detecting cervical cancer. Both false-positive and false-negative reports do occur. .Performed By: #### [id number] #### [facility] [address] [place] [address] Jayne KarenPerformed by:CommentGreene Memorial Hospital on above: Result Comment: Mechelle Rdz, School Cafeteria Cook (ASCP)Performed By: #### [id number] #### [facility] [address] [place] [address] Jayne KarenReflex Criteria:CommentGreene Memorial Hospital on above: Result Comment: The HPV DNA reflex criteria were not met with this specimen result therefore, no HPV testing was performed. .Performed By: #### [id number] #### [facility] [address] [address] Jayne KarenSpecimen adequacy:CommentGreene Memorial Hospital on above:Result Comment: Satisfactory for evaluation. Endocervical and/or squamous metaplastic cells (endocervical component) are present.Performed By: #### [id number] #### [facility] [address] [place] [address] Jayne KarenUS PELVIS AND TRANSVAGon 77-93-7400QT PELVIS AND TRANSVAG EXAMINATION: US PELVIS AND [...] Electronically authenticated by: DARLINE ESPITIA Date: 2020-04-30 14:54[facility] Vital Signs Date TimeVital SignValuePerforming XndpbnhlhAxbjeqcm92-40-6616 13:18-0500Body .3 cmCorey Marybeth DO Work Phone: [facility] HospitalMdqhzlblju83-63-9459 13:18-0500Body mass index (BMI) [Ratio]19.22 kg/p0Akxgk Marybeth DO Work Phone: [facility] NorthGfdivnprdq20-36-9760 13:18-0500Body fjhedx90.51 kgCorey Marybeth DO Work Phone: [facility] NorthFyybukpqlw27-88-9720 13:18-0500Diastolic blood azonoqin97 mm[Hg]Moi Andradezio DO Work Phone: [facility] NorthYqwsskvoks16-02-5882 13:18-0500Systolic blood nhcnpzeg368 mm[Hg]Moiluis fernando Mcwilliamso DO Work Phone: [facility] NorthQlawntalky82-86-0213 15:39-0400Body mass index (BMI) [Ratio]20.79 kg/s7Ltmuvfjdaniel Marlow DO Work Phone: [facility] NorthXitikjtwtr89-07-4654 15:39-0400Body caesle45.59 kgLeonel Marlow DO Work Phone: [facility] NorthOfvmtplmom10-92-5621 08:34-0400Body .34 cm[facility]05-13-2025 08:34-0400Body mass index (BMI) [Ratio]21 kg/z3CqnpscluvMercy Health Fairfield Hospital05-13-2025 08:34-0400Body lnsdjlgilmg62.9 [degF][facility]05-13-2025 08:34-0400Body bvjemo92.49 kgMer[facility]05-13-2025 08:34-0400Diastolic blood fiswdtcq47 mm[Hg][facility]05-13-2025 08:34-0400 Heart rate79 /minMercy Health Fairfield Hospital05-13-2025 08:34-8832UbJ7% (BldA) [Mass fraction]97 %[facility]05-13-2025 08:34-0400 Systolic blood kivimvrg904 mm[Hg][facility]03-10-2025 10:33-0400Body etoigz473.34 cmRandelltheresa Arnett [employer]AGE SUPERVISOR Work Phone: [facility]03-10-2025 10:33-0400 Body mass index (BMI) [Ratio]21.4 kg/q0DvakjhwjLucila Arnett [employer] SUPERVISOR Work Phone: [facility]03-10-2025 10:33-0400 Body bdlupabrrpx49.8 [degF]Lucila Arnett [employer]INO [employer]AGE SUPERVISOR Work Phone: [facility]03-10-2025 10:33-0400 Body .56 kgLucila Arnett [employer]INO [employer]AGE SUPERVISOR Work Phone: [facility]03-10-2025 10:33-0400 Diastolic blood yuxfbdcw42 mm[Hg]Lucila Arnett [employer] SUPERVISOR Work Phone: [facility]03-10-2025 10:33-0400 Systolic blood eivjcmzc608 mm[Hg]Lucila Arnett [employer]INO [employer]AGE SUPERVISOR Work Phone: [facility]01-20-2025 14:16-0500 Body eclrap532.34 cmMer[facility] Health [facility] Hospital01-20-2025 14:16-0500Body mass index (BMI) [Ratio]22.1 kg/o5XnskdyghdMercy Health Fairfield Hospital01-20-2025 14:16-0500Body gpvvivheehy45.4 [degF][facility]01-20-2025 14:16-0500Body nhohxp98.83 kgMercy Health [facility] Hospital01-20-2025 14:16-0500Diastolic blood bmofiync19 mm[Hg][facility] 09-08-2024 14:16-0500Heart rate82 /minMercy Health Fairfield Hospital 09-08-2024 14:16-5220RiT2% (BldA) [Mass fraction]98 %[facility]01-20-2025 14:16-0500Systolic blood mm[Hg][facility]01-08-2025 13:36-0500Body .58 kgCorey Marybeth DO Work Phone: [facility] NorthKkvajfzvlx33-73-2552 13:36-0500Diastolic blood ydvwfock23 mm[Hg]Moi Marybeth DO Work Phone: [facility] NorthLcbqdnkqee76-19-5402 13:36-0500Systolic blood xunsygad867 mm[Hg]Moi Marybeth DO Work Phone: [facility] NorthYskjadlvtd20-94-7629 13:23-0500Body mdndse88.48 kgCorey Marybeth DO Work Phone: [facility] NorthBphemwjnuv61-25-1633 13:23-0500Diastolic blood impneoow76 mm[Hg]Moi Marybeth DO Work Phone: [facility] NorthClvcnpevhq87-30-2131 13:23-0500Systolic blood prduqcbi71 mm[Hg]Moi Marybeth DO Work Phone: [facility] NorthQflzednjdm22-50-1031 12:57-0500Body .34 cmMer[facility] Hospital11-27-2024 12:57-0500Body mass index (BMI) [Ratio]22.8 kg/z1KpdumbnguMercy Health Fairfield Hospital11-27-2024 12:57-0500Body aztnczusklu23.5 [degF][facility]11-27-2024 12:57-0500Body spxabu68.5 kgMercy Health Fairfield Hospital11-27-2024 12:57-0500Diastolic blood daqaxxal57 mm[Hg][facility]11-27-2024 12:57-0500 Heart rate76 /minMercy Health Fairfield Hospital11-27-2024 12:57-5589AtU9% (BldA) [Mass fraction]98 %[facility]11-27-2024 12:57-0500 Systolic blood nccyvnsn312 mm[Hg][facility]11-11-2024 10:30-0500Body icrqpn53.64 kgCorey Marybeth DO Work Phone: [facility] NorthLdxayjebwv27-86-9142 10:30-0500Diastolic blood scvkaveh14 mm[Hg]Moi Marybeth DO Work Phone: [facility] NorthDitnnxadcs88-86-1131 10:30-0500Systolic blood xpyeddrb920 mm[Hg]Moi Marybeth DO Work Phone: 1(419)483-[address] [place], [place] [address]Rgnemwuwry82-07-3084 09:56-0500Body .74 kgCorey Marybeth DO Work Phone: 1(885)[facility] [place], [place] [address]Rfslpulhfr97-25-7776 09:56-0500Diastolic blood yljmxoqy62 mm[Hg]Moi Marybeth DO Work Phone: 1(219)[facility] [place], [place] [address]Eqlcbvbaht78-43-0019 09:56-0500Systolic blood bitbeodw891 mm[Hg]Moi Marybeth DO Work Phone: 1(093)[address] [place], [place] 5235510-17-2024 10:48-0400Body imxcgn34.34 kgCorey Marybeth DO Work Phone: 1(740)[address] [place], [place] 5235510-17-2024 10:48-0400Diastolic blood jtgpkvum58 mm[Hg]Moi Marybeth DO Work Phone: 1(800)[address] [place], [place] 5235510-17-2024 10:48-0400Systolic blood xwxkskio071 mm[Hg]Moi Marybeth DO Work Phone: 1(151)[address] [place] [address]-30-2024 11:10-0400Body .83 kgCorey Marybeth DO Work Phone: 1(786)[address] [place] [address]-30-2024 11:10-0400Diastolic blood tgmxytxh87 mm[Hg]Moi Marybeth DO Work Phone: 1(527)[address] [place], [place] 5235509-30-2024 11:10-0400Systolic blood pyanoapl538 mm[Hg]Moi Marybeth DO Work Phone: 1(141)[address] [place] [address]-19-2024 11:25-0400Body faofvv14.17 kgCorey Marybeth DO Work Phone: 1(456)[address] [place] [address]-19-2024 11:25-0400Diastolic blood mm[Hg]Moi Marybeth DO Work Phone: 1(840)[address] [place] [address]-19-2024 11:25-0400Systolic blood kmefqcjr821 mm[Hg]Moi Marybeth DO Work Phone: 1(734)[address] [place] [address]-05-2024 11:31-0400Body .75 kgCorey Marybeth DO Work Phone: [facility] NorthJeemrhmleu39-58-2783 11:31-0400Diastolic blood ihwughml66 mm[Hg]Moi Marybeth DO Work Phone: [facility] NorthSjokxxnwfs88-24-6497 11:31-0400Systolic blood gmvkdmod241 mm[Hg]Moi Marybeth DO Work Phone: 1(016)896-[address] [place], [place] [address]Oaivmlviow51-12-6078 10:04-0400Body egdkip67.3 kg Moi Marybeth DO Work Phone: 1(011)883-[address] [place], [place] [address]Xespxzlkum91-92-1136 10:04-0400Diastolic blood mm[Hg]Moi Marybeth DO Work Phone: [facility] NorthVobsquhvqp78-40-1191 10:04-0400Systolic blood ejiaalfg029 mm[Hg]Moi Marybeth DO Work Phone: 1(127)247-[address] [place], [place] [address]Gtnjswppkz92-95-0147 13:18-0400Body .3 cmTammy Horne MD Work Phone: 1(646)[address] [place], [place] 6684507-08-2024 13:18-0400Body mass index (BMI) [Ratio]21.51 kg/v2YkjztbnjTammy Horne MD Work Phone: 1(716)[address] [place], [place] 6684507-08-2024 13:18-0400Body kgrrgy99.94 kgTammy Horne MD Work Phone: 1(601)[address] [place], [place] 6684507-08-2024 13:18-0400Diastolic blood ohtssyxs03 mm[Hg]Tammy Horne MD Work Phone: 1(459)[address] [place], [place] 6684507-08-2024 13:18-0400Heart rate 58 /minTammy Horne MD Work Phone: 1(896)[address] [place], [place] 6684507-08-2024 13:18-0400Systolic blood cnryvpkp23 mm[Hg]Tammy Horne MD Work Phone: 1(001)[address] [place], [place] 6684506-03-2024 10:39-0400Body tllgti525.3 cmBari Zepeda MD Work Phone: 1(920)[address]06-03-2024 10:39-0400Body mass index (BMI) [Ratio]20.36 kg/u7LszzqBari Zepeda MD Work Phone: 1(679)[address] [place], [place] 6684506-03-2024 10:39-0400Body ogrrvp49.22 kgBari Zepeda MD Work Phone: 1(388)[address] [place], [place] 6684506-03-2024 10:39-0400Diastolic blood fxunusnt08 mm[Hg]Bari Zepeda MD Work Phone: 1(013)[address] [place], [place] 6684506-03-2024 10:39-0400Heart rate 82 /minBari Zepeda MD Work Phone: 1(876)[address] [place], [place] 6684506-03-2024 10:39-0400Systolic blood qxdteysd048 mm[Hg]Bari Zepeda MD Work Phone: 1(628)[address] [place], [place] 6684504-22-2024 09:18-0400Diastolic blood vukgdmcx50 mm[Hg]Hill Jacobsen Work Phone: [facility] Afrg47-56-2374 09:18-0400Heart rate 101 /minHill Jacobsen Work Phone: [facility] Tpoa75-38-1820 09:18-0400Respiratory rate12 /minHill Jacobsen Work Phone: [facility] Prqb64-29-0588 09:18-0400Systolic blood hdioyodd013 mm[Hg]Hill Jacobsen Work Phone: [facility] Ypeg73-82-0436 14:27-0400Body height 180.3 cmCheri Stephen MD Work Phone: [facility]03-15-2024 14:27-0400Body mass index (BMI) [Ratio]20.04 kg/g2EpfazlCheri Stephen MD Work Phone: [facility]03-15-2024 14:27-0400Body mkqbso50.18 kgCheri Stephen MD Work Phone: [facility]03-15-2024 14:27-0400 Diastolic blood wasmlnpb42 mm[Hg]Cheri Stephen MD Work Phone: [facility]03-15-2024 14:27-0400Systolic blood pzpdfiba485 mm[Hg]Cheri Stephen MD Work Phone: [facility]01-26-2024 11:30-0500Body mkdadm131.34 cmLucila Arnett Other [facility]01-26-2024 11:30-0500 Body mass index (BMI) [Ratio]20.92 kg/r9IpbrxnvbLucila Dasilvar Other [employer] Other 01-26-2024 11:30-0500Body pwitgb72.04 kgLucila Arnett Other [employer] Other 01-26-2024 11:30-0500Body .03 kgMer[facility]01-26-2024 11:30-0500Diastolic blood nvteavep38 mm[Hg] Lucila Arnett Other [facility]01-26-2024 11:30-0500 Respiratory rate16 /minLucila Arnett Other [employer] Other 01-26-2024 11:30-6699LzV2% (BldA) [Mass fraction]100 % Lucila Arnett Other [employer] Other 01-26-2024 11:30-0500Systolic blood faupzvvf026 mm[Hg] Lucila Arnett Other [facility]12-15-2023 10:00-0500 Body pwckqy303.34 cmLucila Melquiades Other [employer] Other 12-15-2023 10:00-0500Body mass index (BMI) [Ratio] 20.78 kg/z9Wieflwjk Melquiades Other [employer] Other 12-15-2023 10:00-0500Body zohmhm00.59 kgLucila Melquiades Other [employer] Other 12-15-2023 10:00-0500Diastolic blood hwprcfej37 mm[Hg] Lucila Melquiades Other [employer] Other 12-15-2023 10:00-1572SoQ5% (BldA) [Mass fraction]98 % Lucila Melquiades Other [employer] Other 12-15-2023 10:00-0500Systolic blood mm[Hg] Lucila Melquiades Other [employer] Other Encounters Encounter DateEncounter TypeCare ProviderFacilityStart: 06-29-2025 End: 29-97-3388Fpxqdzplb Result EncounterCorey Marybeth DO Work Phone: noms External Department UnsolicitedStart: 06-29-2025 End: 78-36-5147Ibreyovwx Result EncounterCorey Marybeth DO Work Phone: noms External Department UnsolicitedStart: 06-24-2025 End: 12-79-1639dunvfxmfmdMnbwdrvv Melquiades [employer] CAGE SUPERVISOR Work Phone: [facility]: 06-24-2025 End: 90-05-6214Qeffmui encounter procedureLucila Arnett APRN [facility] Work Phone: Start: 06-22-2025 End: 42-03-0851Mmlmpo flowsheetCorey Marybeth DO Work Phone: noms [place] OBGYNStart: 06-22-2025 End: 77-65-9753Ehykyl flowsheetCorey Marybeth DO Work Phone: noms [place] OBGYNStart: 06-22-2025 End: 34-58-8283znpsebqzmaQBRMP FAZIONot AvailableStart: 06-22-2025 End: 81-20-9843Izksik outpatient visit 15 minutesCorey Marybeth DO Work Phone: noms [place] OBGYNComment on above:Dysmenorrhea; Abnormal uterine bleeding (AUB); Bleeding disorder; PCOS (polycystic ovarian syndrome); Pelvic pain in femaleStart: 01-08-2025 End: 73-65-0717bzfqvxzmovYHVFBKD R LACONISNot AvailableStart: 01-08-2025 End: 48-49-7467Ngnhhfm encounter procedureLeonel Zambrano Rosablack DO Work Phone: noms SWS UCComment on above:Encounter for drug screeningStart: 12-30-2024 End: 81-06-3552uhyysfadhdCfwzhogjbGlenbeigh Hospital Work Phone: Start: 12-30-2024 End: 49-94-7847Gnlawtz encounter procedureFirdamir Physician Group-[facility] Work Phone: Start: 10-27-2024 End: 88-63-8839naboooreeiPkocqybr Rohrbacher APRN Work Phone: [facility] Work Phone: Start: 10-27-2024 End: 38-37-3474Acskdzs encounter procedureLucila Arnett APRN Work Phone: [facility] Work Phone: Start: 09-12-2024 End: 22-05-9438fujwpupwbjDzmhznch Rohelíasacher [employer] SUPERVISOR Work Phone: [facility] Work Phone: Start: 09-12-2024 End: 70-13-3539Lwujbgv encounter procedureJerosiokatrina Steveacher CASINO CAGE SUPERVISOR Work Phone: [facility] Work Phone: Start: 09-08-2024 End: 59-03-1228qpcejtcnjkRixcmofi Rohrbacher CASINO CAGE SUPERVISOR Work Phone: [facility] Work Phone: Start: 09-08-2024 End: 32-32-1166Lcrbpwye ReferredRandellrosiokatrina Steveachealaina CASINO CAGE SUPERVISOR Work Phone: [facility] Work Phone: Start: 09-08-2024 End: 26-06-0434jsvmcjxvuiLqrtwxuelGlenbeigh Hospital Work Phone: Start: 09-08-2024 End: 62-82-0612Inagyqp encounter procedureNorthern [facility] Hospital [facility] Work Phone: Start: 08-29-2024 End: 36-29-9663Gjyonbsve Result EncounterCorey Marybeth DO Work Phone: noms External Department UnsolicitedStart: 08-29-2024 End: 03-77-9561Geyprkpeg Result EncounterCorey Marybeth DO Work Phone: noms External Department UnsolicitedStart: 08-29-2024 Non-patient / [facility]Northern [facility] Work Phone: Start: 08-27-2024 End: 26-30-1905Mcbcoe outpatient visit 15 minutesCorey Marybeth DO Work Phone: noms BCP OBComment on above:Pre-op examination; Request for sterilization; Hormone imbalance; Swelling; Mood disorder (CMS/HCC)Start: 08-27-2024 End: 97-94-4741Togpctnitfygm examination doneCorey Marybeth DO Work Phone: noms HealthcareStart: 08-27-2024 End: 75-86-6752ocklyrkuflAVFKR FAZIONot AvailableStart: 08-01-2024 End: 38-81-8010Ndzrqumaz Result EncounterCorey Marybeth DO Work Phone: noms External Department UnsolicitedStart: 08-01-2024 End: 74-36-1109Mkwgcrfpi Result EncounterCorey Marybeth DO Work Phone: noms External Department UnsolicitedStart: 08-01-2024 Non-patient / Non-visitFirdamir Physician GroupNavos Health [facility] Work Phone: Start: 07-30-2024 End: 47-31-2146Bitssr flowsheetCorey Marybeth DO Work Phone: noms BCP OBStart: 07-30-2024 End: 79-94-4956Yaquml flowsheetCorey Marybeth DO Work Phone: noms BCP OBStart: 07-30-2024 End: 24-73-6111Ljorin outpatient visit 15 minutesCorey Marybeth DO Work Phone: noms BCP OBComment on above:Pelvic pain in female; state; Request for sterilization; EndometriosisStart: 07-30-2024 End: 21-24-7296cbuhwdwnzoYQSMK FAZIONot AvailableStart: 07-16-2024 End: 41-80-1688Xrowhmq encounter procedureFirdamir Physician GroupB[facility] Work Phone: Start: 07-07-2024 End: 09-60-5620Tlukjoygw Result EncounterCorey Marybeth DO Work Phone: noms External Department UnsolicitedStart: 07-07-2024 End: 23-99-8042Suihxvtdj Result EncounterCorey Marybeth DO Work Phone: noms External Department UnsolicitedStart: 07-07-2024 Non-patient / [facility] Work Phone: Start: 07-06-2024 End: 28-94-2674Jkujwwmqt Result EncounterCorey Marybeth DO Work Phone: noms External Department UnsolicitedStart: 07-06-2024 End: 10-24-5605Vxjjdaqyz Result EncounterCorey Marybeth DO Work Phone: noms External Department UnsolicitedStart: 07-06-2024 Non-patient / [facility] Work Phone: Start: 07-04-2024 End: 85-23-9007Gdxgqjrqy Result EncounterCorey Marybeth DO Work Phone: noms External Department UnsolicitedStart: 07-04-2024 End: 83-47-4116Zxwgtgdcw Result EncounterCorey Marybeth DO Work Phone: noms External Department UnsolicitedStart: 06-30-2024 End: 91-08-9387Ztghak flowsheetCorey Marybeth DO Work Phone: NOUL BCP OBStart: 06-30-2024 End: 05-05-3209Hdglaq flowsheetCorey Marybeth DO Work Phone: NOVF BCP OBStart: 06-30-2024 End: 48-10-9556Ydtgurlhq Result EncounterCorey Marybeth DO Work Phone: noms External Department UnsolicitedStart: 06-30-2024 End: 02-96-4872Ffvmrs outpatient visit 15 minutesCorey Marybeth DO Work Phone: NORU BCP OBComment on above:Third trimester Start: 06-30-2024 End: 11-53-3214bnrsnpzlceFKJPY FAZIONot AvailableStart: 06-27-2024 End: 65-66-8760Rqaefiuur Result EncounterCorey Marybeth DO Work Phone: noms External Department UnsolicitedStart: 06-27-2024 End: 74-76-6969Kbbfhpqpy Result EncounterCorey Marybeth DO Work Phone: noms External Department UnsolicitedStart: 06-23-2024 End: 60-59-1198Lqkdhz flowsheetCorey Marybeth DO Work Phone: NODA BCP OBStart: 06-23-2024 End: 63-44-7268Ktbihi flowsheetCorey Marybeth DO Work Phone: NOOI BCP OBStart: 06-23-2024 End: 35-23-9794Nypryj outpatient visit 15 minutesCorey Marybeth DO Work Phone: noms [facility] OBComment on above:Third trimester ; 35 weeks gestation of pregnancyStart: 29-44-0645Bvh-patient / Non-visitFirwellmont [facility] Work Phone: Start: 06-20-2024 End: 88-42-2723Rdwjubnka Result EncounterCorey Marybeth DO Work Phone: noms External Department UnsolicitedStart: 06-20-2024 End: 07-57-3213Nkriaguya Result EncounterCorey Marybeth DO Work Phone: noms External Department UnsolicitedStart: 06-14-2024 End: 09-65-1192Xtasfxecl Result EncounterCorey Marybeth DO Work Phone: noms External Department UnsolicitedStart: 06-14-2024 End: 10-31-8561Lbmijbxhn Result EncounterCorey Marybeth DO Work Phone: noms External Department UnsolicitedStart: 06-06-2024 End: 41-96-0746Pueplxpel Result EncounterCorey Marybeth DO Work Phone: NOMS External Department UnsolicitedStart: 06-06-2024 End: 75-07-7882Vzvuepksr Result EncounterCorey Marybeth DO Work Phone: noms External Department UnsolicitedStart: 06-05-2024 End: 20-41-6703Snlavy flowsheetCorey Marybeth DO Work Phone: NOMW BCP OBStart: 06-05-2024 End: 87-76-8061Wwxaen flowsheetCorey Marybeth DO Work Phone: NOGG BCP OBStart: 06-05-2024 End: 35-16-3466Vxwzxdmya Result EncounterCorey Marybeth DO Work Phone: noms External Department UnsolicitedStart: 06-05-2024 End: 63-12-7376Ltnydm outpatient visit 15 minutesCorey Marybeth DO Work Phone: NOOB BCP OBComment on above:32 weeks gestation of ; Third trimester ; H/O delivery, currently , first trimester; Pelvic pain in female; Cluster headache, not intractable, unspecified chronicity pattern; Bilateral leg painStart: 05-30-2024 End: 94-20-1074Zzooosryn Result EncounterCorey Marybeth DO Work Phone: noms External Department UnsolicitedStart: 05-30-2024 End: 46-13-5127Vabfreshx Result EncounterCorey Marybeth DO Work Phone: noms External Department UnsolicitedStart: 05-19-2024 End: 28-28-6269Iqplml flowsheetCorey Marybeth DO Work Phone: NOMS BCP OBStart: 05-19-2024 End: 91-89-6952Xtoftm flowsheetCorey Marybeth DO Work Phone: NOMS BCP OBStart: 05-19-2024 End: 66-52-6878Fmvosj outpatient visit 15 minutesCorey Marybeth DO Work Phone: noms BCP OBComment on above:Third trimester ; 30 weeks gestation of ; H/O delivery, currently , first trimester; Abdominal pain affecting ; Pelvic pain in female; Prior with placenta abruption in third trimester, antepartum; Other insomniaStart: 05-14-2024 End: 11-67-7667Lyluampkj Result EncounterCorey Marybeth DO Work Phone: noms External Department UnsolicitedStart: 05-14-2024 End: 90-40-4537Xaemcutcs Result EncounterCorey Marybeth DO Work Phone: noms External Department UnsolicitedStart: 05-08-2024 End: 54-67-8139Kkmfnn flowsheetCorey Marybeth DO Work Phone: noms BCP OBStart: 05-08-2024 End: 85-33-2825Henmmx flowsheetCorey Marybeth DO Work Phone: noms BCP OBStart: 05-08-2024 End: 55-50-9578Dwsuaddll Result EncounterCorey Marybeth DO Work Phone: noms External Department UnsolicitedStart: 05-08-2024 End: 48-03-2827Stvhlc outpatient visit 15 minutesCorey Marybeth DO Work Phone: noms [facility] OBComment on above:Third trimester ; Pelvic pain in female; History of placenta abruption; Dizziness; H/O delivery, currently ; Cluster headache, not intractable, unspecified chronicity pattern; History of miscarriage; Abdominal pain affecting ; Bilateral leg pain; Right hip pain; Low ironStart: 05-03-2024 End: 94-27-7646Qwrcfcztl Result EncounterCorey Marybeth DO Work Phone: noms External Department UnsolicitedStart: 05-03-2024 End: 66-34-9380Muzedgbiv Result EncounterCorey Marybeth DO Work Phone: noms External Department UnsolicitedStart: 04-24-2024 End: 70-41-6620Nawnnl flowsheetCorey Marybeth DO Work Phone: noms [facility] OBStart: 04-24-2024 End: 72-51-1967Bphody flowsheetCorey Marybeth DO Work Phone: noms [facility] OBStart: 04-24-2024 End: 31-49-1751Nidbfrqrt Result EncounterCorey Marybeth [employer] Work Phone: noms External Department UnsolicitedStart: 04-24-2024 End: 07-42-2593Wjhqbp outpatient visit 15 minutesCorey Marybeth DO Work Phone: noms [facility] OBComment on above:26 weeks gestation of ; Gestational diabetes mellitus (GDM), antepartum, gestational diabetes method of control unspecified; Elevated glucose tolerance test; Abdominal pain affecting ; H/O delivery, currently , first trimester; Right hip pain; Prior with placenta abruption in third trimester, antepartum; Pelvic pain in female; Bilateral leg pain; Diabetes mellitus screeningStart: 04-10-2024 End: 32-02-5461Fzmhij flowsheetCorey Marybeth DO Work Phone: noms [facility] OBStart: 04-10-2024 End: 20-51-9765Iuenyf flowsheetCorey Marybeth DO Work Phone: noms [facility] OBStart: 04-10-2024 End: 02-67-1231Ueopof outpatient visit 15 minutesCorey Marybeth DO Work Phone: noms [facility] OBComment on above:24 weeks gestation of ; Right hip pain; Pelvic pain in female; Abdominal pain affecting ; Prior with placenta abruption in third trimester, antepartum; Bilateral leg painStart: 03-31-2024 End: 33-27-9339yyryvhdgicIMJVJ R FAZIManhattan Eye, Ear and Throat Hospitalca [facility] HospitalStart: 03-25-2024 End: 14-74-2789spebogmodzIZUBS R FAZIMcLeod Regional Medical CenterMedica Montezuma HospitalStart: 03-20-2024 End: 68-02-9623Dbhbtg OnlyNot In System Ref ProvMaternal- Medicine at Summa Healthtart: 03-13-2024 End: 92-91-9825Mmimozocg Result EncounterCorey Marybeth DO Work Phone: noms External Department UnsolicitedStart: 03-13-2024 End: 03-49-1501Nqdbiwdpv Result EncounterCorey Marybeth DO Work Phone: noms External Department UnsolicitedStart: 02-25-2024 End: 84-00-6926Fxdzoa outpatient visit 25 minutesTammy Horne MD Work Phone: [phone]-Wsqgv Medicine at [facility] Comment on above:18 weeks gestation of (Primary Dx); Echogenic intracardiac focus of fetus on ultrasound; Placental abnormality in second trimester; History of placenta abruption; History of delivery, currently Start: 02-25-2024 End: 76-48-9985wiedsflyavYJDGXCleveland Clinic Medina Hospitaltart: 01-21-2024 End: 99-72-3550Dikbrz outpatient new 60 minutesBari Zepeda MD Work Phone: [phone]-Xkpwd Medicine at [facility] Comment on above:History of delivery, currently in first trimester (Primary Dx); Prior with placenta abruption in first trimester, antepartumStart: 01-21-2024 End: 94-62-5387budmqfzdiuGOZEM [facility] Campustart: 01-11-2024 End: 08-59-2543Bkrjuk OnlyNot In System Ref ProvMaternal- Medicine at Sum[facility] Healthtart: 12-26-2023 End: 60-27-6248Jmsmuqoqu Result EncounterCorey Marybeth DO Work Phone: noms External Department UnsolicitedStart: 12-26-2023 End: 88-00-5090Zhedugmah Result EncounterCorey Marybeth DO Work Phone: noms External Department UnsolicitedStart: 12-13-2023 End: 73-01-9700Zespmuxti Result EncounterCorey Marybeth DO Work Phone: noms External Department UnsolicitedStart: 12-13-2023 End: 00-21-3052Mrhhtexxh Result EncounterCorey Marybeth DO Work Phone: NOAW External Department UnsolicitedStart: 12-10-2023 End: 79-59-8182mbuggeysozZMXFU KATZMount Odilia Orozco [facility] CenterStart: 12-10-2023 End: 78-64-5351Mpanalurx Margaret Jacobsen Work Phone: MOSES ThayerStart: 12-06-2023 End: 57-45-2360fezegkvvjsWBSGP KATZMount DardanelleAbbott Northwestern HospitalStart: 12-03-2023 End: 85-93-4600fvajthnbzxHEOCW KATZMount Odilia [facility]: 11-29-2023 End: 50-58-8167vzcnakhajtVYJPC KATZMount OdiliaCass Lake Hospitalart: 11-26-2023 End: 96-97-1969ypaahcjqupEGAZD KATZMount OdiliaRainy Lake Medical Center: 11-23-2023 End: 76-79-7022xvpzifpgurGMZZN KATZMount DardanelleRainy Lake Medical Center: 11-21-2023 End: 48-59-0492wcxjfnhrlhSHBBQ KATZMount DardanelleRainy Lake Medical Center: 11-19-2023 End: 50-23-6228rujjrflkepEDN LUCILA STEPHENSONacility:FTMCStart: 11-19-2023 End: 72-82-2813Gwsqgts encounter procedureLUCILA ARNETT [facility] Start: 11-14-2023 End: 02-92-8278ovneluwzftEoudjvwdbGlenbeigh Hospital Work Phone: Start: 11-14-2023 End: 25-65-7817Ncoclla encounter procedureFirwellmont lonesome pine [facility] Phys[facility] GroupWood County Hospital Work Phone: Start: 91-67-0639vvurujxbdhLZWAVG MISALFacility:BARI Start: 11-02-2023 End: 10-93-8640Udiqrd outpatient new 60 minutesMeed Stephen MD Work Phone: [facility] Comment on above:Endometriosis (Primary Dx); Pelvic pain; Myalgia of pelvic floor; Dysmenorrhea; Dyspareunia in female; Nausea and vomiting, unspecified vomiting type; Bladder pain; AnxietyStart: 10-17-2023 End: 60-78-1097Lczexhx encounter procedureMert [facility]ician [facility] Work Phone: Start: 09-14-2023 End: 94-20-3973zgzujhqsqwYekvaebi Rohrbacher Other [employer] Other Start: 74-85-0041Vvhhnx outpatient visit 25 minutes Lucila German [facility] Child[facility]art: 09-14-2023 End: 04-14-5940Vqnkada encounter procedureMert Physician Group-Start: 08-09-2023 End: 53-79-0732qkumzfucuzThlmhmre Rohrbacher Other [employer] Other Start: 06-25-6580Dpzuznspd encounterLucila German [facility] Childrentart: 08-03-2023 End: 99-09-2078idqpqjzmjmLxbxzatl Rohrbacher Other [employer] Other Start: 72-17-5814Ctjlbz outpatient new 30 minutes Lucila German [facility] Childrentart: 52-19-9563Krilcqrib encounter Lucila German Referral CoordinatorStart: 07-12-2020 End: 19-82-9985nykwuclntfLG MOI FAZIOFacility:L9Qmobv: 06-25-2020 End: 31-83-0673urwfcjnbjsBC MOI FAZIOFacility:J4Bekwv: 04-30-2020 End: 14-16-6204mxhflvvzpxPB MOI FAZIOFacility:F0Bbxhf: 04-29-2020 End: 23-29-3161hczcfmxncxJF MOI FAZIOFacility:H1 Procedures DateProcedureProcedure DetailPerforming ClinicianStart: 20-99-9008NMW CBC WITH AUTO DIFFCorey Marybeth DO Work Phone: Start: 01-75-2878ZCG CBC WITH AUTO DIFFCorey Marybeth DO Work Phone: Start: 38-92-2659UE PELVIS TRANSVAGINALCorey Marybeth DO Work Phone: Start: 08-48-4732OQA CBC WITH AUTO DIFFCorey Marybeth DO Work Phone: Start: 64-94-5164Nibbj dip stick/tablet rgnt non-auto w/o micrscpCorey Marybeth DO Work Phone: Start: 99-33-9837MUG CBC WITH AUTO DIFFCorey Marybeth DO Work Phone: Start: 89-26-0255ATIQ CBC WITH PLATELET NO DIFFERENTIALCorey Marybeth DO Work Phone: Start: 70-54-4827CKU DRUG SCREEN RAPID (URINE)Moi Marybeth DO Work Phone: Start: 33-42-8415BN OB BPP W NON-STRESSCorey Marybeth DO Work Phone: Start: 34-87-9272Xoqml dip stick/tablet rgnt non-auto w/o micrscpCorey Marybeth DO Work Phone: Start: 42-47-3533NV OB GROWTHCorey Marybeth DO Work Phone: Start: 48-62-7634KZ OB BPP W NON-STRESSCorey Marybeth DO Work Phone: Start: 35-65-7578Adcib Gp B NAAStart: 16-58-2825Dqgne dip stick/tablet rgnt non-auto w/o micrscpCorey Marybeth DO Work Phone: Start: 70-53-7314UR OB BPP W NON-STRESSCorey Marybeth DO Work Phone: Start: 40-20-0706EQ OB BPP W NON-STRESSCorey Marybeth DO Work Phone: Start: 93-38-6196AA OB CERVICAL LENGTHCorey Marybeth DO Work Phone: Start: 63-52-1409VW OB BPP W NON-STRESSCorey Marybeth DO Work Phone: Start: 42-38-2558BX OB GROWTHCorey Marybeth DO Work Phone: Start: 50-04-5788Ropsj dip stick/tablet rgnt non-auto w/o micrscpCorey Marybeth DO Work Phone: Start: 87-57-3844WU OB BPP W NON-STRESSCorey Marybeth DO Work Phone: Start: 98-37-3968Mgxcd dip stick/tablet rgnt non-auto w/o micrscpCorey Marybeth DO Work Phone: Start: 37-28-0681YO OB CERVICAL LENGTHCorey Marybeth DO Work Phone: Start: 26-57-1039HC OB GROWTHCorey Marybeth DO Work Phone: Start: 46-72-0474Ejvqz dip stick/tablet rgnt non-auto w/o micrscpCorey Marybeth DO Work Phone: Start: 06-39-3395GOS CBC WITH AUTO DIFFCorey Marybeth DO Work Phone: Start: 52-12-5679Lareo dip stick/tablet rgnt non-auto w/o micrscpCorey Marybeth DO Work Phone: Start: 22-31-1839POM CBC WITH AUTO DIFFCorey Marybeth DO Work Phone: Start: 83-43-3572Nzphg dip stick/tablet rgnt non-auto w/o micrscpCorey Marybeth DO Work Phone: Start: 73-37-2677UYGCTYTCIU OFFICENot In System Ref ProvStart: 31-33-8501YX OB CERVICAL LENGTHCorey Marybeth DO Work Phone: Start: 35-89-8566WU APPENDIXCorey Marybeth DO Work Phone: Start: 69-00-0607EM OB TRANSVAGINALCorey Marybeth DO Work Phone: Start: 41-57-6886ZP OB TRANSVAGINALCorey Marybeth DO Work Phone: Start: 45-55-4371RJKTMIYBGK OFFICENot In System Ref ProvStart: 34-07-1857Yujeq extractionJENNIFER ROHRBACHER uterine ablationJENNIFER ROHRBACHER Plan of Treatment DateCare ActivityDetailAuthorStart: 06-22-2025 End: 98-64-6299Ogpcpkjbtspt IIIAntithrombin III Lab Routine Dysmenorrhea Abnormal uterine bleeding (AUB) Pelvic pain in female Expected: 06/22/2025 (Approximate), Expires: 06/22/2026NOMS HealthcareComment on above:Expected: 06/22/2025 (Approximate), Expires: 06/22/2026Start: 06-22-2025 End: 46-65-3072Lmaq-2 glycoprotein antibodiesBeta-2 glycoprotein antibodies Lab Routine Dysmenorrhea Abnormal uterine bleeding (AUB) Pelvic painin female Expected: 06/22/2025 (Approximate), Expires: 06/22/2026NOM[facility] HealthcareComment on above:Expected: 06/22/2025 (Approximate), Expires: 06/22/2026Start: 06-22-2025 End: 60-34-4336Maqdwdrhcuq antibody, IgGCardiolipin antibody, IgG Lab Routine Dysmenorrhea Abnormal uterine bleeding (AUB) Pelvic pain in female Expected: 06/22/2025 (Approximate), Expires: 06/22/2026NOM[facility] HealthcareComment on above: Expected: 06/22/2025 (Approximate), Expires: 06/22/2026Start: 06-22-2025 End: 49-74-7929Speabdtlqqj antibody, IgMCardiolipin antibody, IgM Lab Routine Dysmenorrhea Abnormal uterine bleeding (AUB) Pelvic pain in female Expected: 06/22/2025 (Approximate), Expires: 06/22/2026NOOR HealthcareComment on above: Expected: 06/22/2025 (Approximate), Expires: 06/22/2026Start: 06-22-2025 End: 25-78-5967YGZVQNYB Lab Routine Dysmenorrhea Abnormal uterine bleeding (AUB) Pelvic pain in female Expected: 06/22/2025 (Approximate), Expires: 06/22/2026 [facility] HealthcareComment on above:Expected: 06/22/2025 (Approximate), Expires: 06/22/2026Start: 06-22-2025 End: 43-94-9400OJADUABWMQ Lab Routine Dysmenorrhea Abnormal uterine bleeding (AUB) Pelvic pain in female Expected: 06/22/2025 (Approximate), Expires: 06/22/2026[facility] HealthcareComment on above:Expected: 06/22/2025 (Approximate), Expires: 06/22/2026Start: 06-22-2025 End: 41-86-2212Nwqqui 5 leidenFactor 5 leiden Lab Routine Dysmenorrhea Abnormal uterine bleeding (AUB) Pelvic pain in female Expected: 06/22/2025 (Approximate), Expires: 06/22/2026[facility] Work Phone: comment on above:Expected: 06/22/2025 (Approximate), Expires: 06/22/2026Start: 06-22-2025 End: 04-93-4756Tsbssus [Mass/volume] in Serum or PlasmaProtein, total Lab Routine Dysmenorrhea Abnormal uterine bleeding (AUB) Pelvic pain in female Expected: 06/22/2025 (Approximate), Expires: 06/22/2026[facility] HealthcareComment on above:Expected: 06/22/2025 (Approximate), Expires: 06/22/2026Start: 06-22-2025 End: 69-23-1835Xznpwmv C activityProtein C activity Lab Routine Dysmenorrhea Abnormal uterine bleeding (AUB) Pelvic pain in female Expected: 06/22/2025 (Approximate), Expires: 06/22/2026[facility] HealthcareComment on above:Expected: 06/22/2025 (Approximate), Expires: 06/22/2026Start: 06-22-2025 End: 19-45-4312Pbebfqa S antigen, freeProtein S antigen, free Lab Routine Dysmenorrhea Abnormal uterine bleeding (AUB) Pelvic pain in female Expected: 06/22/2025 (Approximate), Expires: 06/22/2026NOOR HealthcareComment on above: Expected: 06/22/2025 (Approximate), Expires: 06/22/2026Start: 06-22-2025 End: 32-77-1869PC PelvisUS Pelvis w/ TV Imaging Routine Dysmenorrhea Abnormal uterine bleeding (AUB) Pelvic pain in female Expected: 06/22/2025, Expires: 06/22/2026[facility] HealthcareComment on above:Expected: 06/22/2025, Expires: 06/22/2026Start: 06-22-2025 End: 02-40-6581Yzmmbmp encounter hopazphdx83/03/2025 1:00 PM EST Office Visit CULLEN GARSIA [address] [phone] Moi Rueda DO [address] [place] [address] CULLEN He OBGYNStart: 62-35-1131WNVEY- 19 Vaccine ( season)COVID-19 Vaccine ( season)[facility] HealthcareStart: 51-69-1049ATGAF-19 Vaccine ( season)COVID-19 Vaccine ( season)[facility] HealthcareStart: 88-29-8895Mxcbjmqca vaccinationNOOR HealthcareStart: 99-21-4588Iidaw BMI ScreeningAdult BMI ScreeningProUniversity [facility]als [facility] SystemStart: 01-71-9249Gnkynat ScreeningTobacco ScreeningProCleveland Clinictart: 45-36-8565Mcura BMI ScreeningAdult BMI ScreeningProCleveland Clinictart: 98-41-0195Ihjsqey ScreeningTobacco ScreeningProUniversity [facility]als [facility] System Start: 01-67-2727Vndaiwg referralMain Campus Medical Center Work Phone: Start: 88-33-2532Nzpviqy referralMain Campus Medical Center Work Phone: Start: 10-02-2024 End: 05-05-7703Zvqggtw encounter cevxwrnie63/13/2025 11:20 AM EST Office Visit [facility] OB [address] [place] [phone] Moi Rueda, DO [address] [place] [address] [facility] OBStart: 57-79-5344IiklwxchkHolzer Health Systemtart: 84-74-8349Vmrynoj [facility] Work Phone: Start: 08-27-2024 End: 57-18-2790Iker nitrogen [Mass/volume] in Serum or PlasmaBUN Lab Routine Hormone imbalance Swelling Expected: 08/27/2024 (Approximate), Expires: 08/27/2025NOMS HealthcareComment on above:Expected: 08/27/2024 (Approximate), Expires: 08/27/2025Start: 08-27-2024 End: 63-37-2017qqkavfvsng46/08/2025 1:20 PM EST Visit [facility] OB [address] [place] [phone] Moi Rueda, DO [address] [place] [address] [facility]S BCP OBStart: 07-30-2024 End: 31-18-6820MSJAOLVH(R) ADVANCED VAGINITIS PLUS, TMASURESWAB(R) ADVANCED VAGINITIS PLUS, TMA Pathology and Cytology Routine Pelvic pain in female Expect ed: 07/30/2024 (Approximate), Expires: 07/30/2025[facility] Work Phone: comment on above:Expected: 07/30/2024 (Approximate), Expires: 07/30/2025Start: 07-30-2024 End: 02-26-5203MH for pregnancyUS PELVIS-TRANSVAG IF INDICATED Imaging Routine Pelvic pain in female Expected: 07/30/2024 (Approximate), Expires: 07/30/2025 [facility] HealthcareComment on above:Expected: 07/30/2024 (Approximate), Expires: 07/30/2025Start: 07-30-2024 End: 26-08-8844Rhduiio encounter avahcnbai39/11/2024 1:20 PM EST Office Visit [facility] OB [address] [place] [address] Moi Rueda, DO [address] [place], [place] [id number] ArrivedNOKAISER SAN LEAN[facility]O [facility] OBComment on above:ArrivedStart: 06-30-2024 End: 69-91-6591Mzcjlfj encounter ylswcotxe28/11/2024 10:30 AM EST Routine [facility] OB [address] [place] [phone] Moi Rueda, DO [address] [place], [place] [id number] [facility] BCP OBStart: 06-30-2024 End: 91-41-6801Epvdizghywie / ancillary services jbcmtynsvj44/11/2024 10:00 AM EST Ancillary Procedure [facility] [address] [place], [place] [phone] [facility] BCP OBStart: 06-23-2024 End: 66-71-0232Ayczb B DNA probe, amplificationStrep B DNA probe, amplification Lab Routine Third trimester Expected: 06/23/2024 (Approximate), Expires: 06/23/2025[facility] Work Phone: comment on above:Expected: 06/23/2024 (Approximate), Expires: 06/23/2025Start: 06-23-2024 End: 71-16-6125Psqnshf encounter procedureNOMS BCP OBComment on above:Arrived Start: 06-05-2024 End: 00-49-5712Vkphuyl encounter procedureNOMS BCP OBComment on above:Arrived Start: 06-05-2024 End: 77-93-1939Kldhuasmlfax / ancillary services /17/2024 10:00 AM EDT Ancillary Procedure [facility] [address] [place], [place] [phone] [facility] BCP OBStart: 05-19-2024 End: 64-63-3533UC biophysical profile w non stress testUS biophysical profile w non stress test Imaging Routine H/O delivery, currently , first trimester Abdominal pain affecting Pelvic pain in female Prior with placenta abruption in third trimester, antepartum Expected: 05/19/2024 (Approximate), Expires: 05/19/2025[facility] Work Phone: comment on above:Expected: 05/19/2024 (Approximate), Expires: 05/19/2025Start: 05-19-2024 End: 04-50-4034Xhsaryy encounter procedureNOMS BCP OBComment on above:Arrived Start: 05-08-2024 End: 36-12-2293Zgnuwdj encounter veukwldjd18/19/2024 11:10 AM EDT Routine [facility] [address] [place] [phone] Moi Rueda, DO [address] [place], [place] [id number] [facility] BCP OBStart: 05-08-2024 End: 75-04-4628Szzavvdgyhyb / ancillary services ivjpydptme94/19/2024 10:30 AM EDT Ancillary Procedure [facility] [address] [place], [place] [phone] [facility] BCP OBStart: 04-24-2024 End: 25-95-1156Wjdbbgqmcoh of glucose 1 hour after glucose challenge for glucose tolerance testGlucose tolerance, 1 hour Lab Routine Elevated glucose tolerance test Diabetes mellitus screening Expected: 04/24/2024 (Approximate), Expires: 04/24/2025[facility] Work Phone: comment on above:Expected: 04/24/2024 (Approximate), Expires: 04/24/2025Start: 04-24-2024 End: 34-58-0073JR for pregnancyUS OB SCAN FOR GROWTH Imaging Routine Elevated glucose tolerance test Abdominal pain affecting H/O delivery, currently , first trimester Prior with placenta a bruption in third trimester, antepartum Pelvic pain in female Expected: 04/24/2024 (Approximate), Expires: 04/24/2025NO[facility] HealthcareComment on above: Expected: 04/24/2024 (Approximate), Expires: 04/24/2025Start: 04-24-2024 End: 97-76-8216Ecrzxtv encounter procedureMERCY [facility] OBComment on above:Arrived Start: 70-31-7087Dylyqvbla vaccinationInfluenza VaccineLakeHealth TriPoint Medical Center System Start: 04-10-2024 End: 37-00-2548Rdvvsek encounter llrcwllwa47/22/2024 10:40 AM EDT Routine [facility] OB [address] [place] [phone] Moi Rueda, DO [address] [place] [address] ArrivedMERCY SAN JUAN MED[facility]ENTER OBComment on above: ArrivedStart: 03-25-2024 End: 36-85-2297Eduocke encounter ralekxkby86/06/2024 10:30 AM EDT Appointment [facility] [address] [place] [address] [phone]'s Hospital of [facility] US ImagingStart: 03-11-2024 End: 80-40-8969Sfgdwyj encounter / 10:45 AM EDT Appointment [facility] [address] [place] [address] [phone]'s Hospital of Columbus US ImagingStart: 02-25-2024 End: 18-37-1320Juawstk encounter procedureProDayton Osteopathic Hospital US ImagingStart: 01-21-2024 End: 32-24-3715Mezixqk encounter procedureMarymount Hospital US ImagingStart: 05-61-8119PEW Vaccines (1 - 3-dose SCDM series)HPV Vaccines (1 - 3-dose SCDM series)[facility] HealthcareStart: 11-02-2023 End: 04-61-4348JG Pelvis WO and W contrast IVMRI PELVIS WITH AND WITHOUT CONTRAST Imaging Routine Endometriosis Pelvic pain Expected: 11/02/2023, Expires: 11/01/2024OSCoshocton Regional Medical CenterComment on above:Expected: 11/02/2023, Expires: 11/01/2024Start: 35-09-2728Ocrflnb [facility] Work Phone: Start: 49-66-7224DDFTB-19 VACCINE (2022- season) COVID-19 VACCINE ( season)[facility] Hospitaltart: 04-20-2023 Influenza vaccinationINFLUENZA VACCINE (#1)[facility] Hospitaltart: 61-16-4321Wltxchvsk for malignant neoplasm of cervixJoint [facility] District [facility] Start: 31-68-8657REtY,Tdap and Td Vaccines (1 - Tdap)DTaP,Tdap and Td Vaccines (1 - Tdap)[facility] Charlottetart: 73-32-7192Ijwcuzfqy B vaccinationHEP B VACCINE (1 of 3 - 19+ 3-dose series)[facility] Hospitaltart: 11-08-2015 Hepatitis B Vaccines (1 of 3 - 19+ 3-dose series)Hepatitis B Vaccines (1 of 3 - 19+ 3-dose series)[facility] HealthcareStart: 89-59-1116Cvgvo diphtheria, tetanus and acellular pertussis (DTaP) vaccinationTDAP (ADULT)[facility] Start: 82-65-0034Xwdqg BMI ScreeningAdult BMI ScreeningLakeHealth TriPoint Medical Center System Start: 92-24-7394Jpoperswz for Chlamydia trachomatisCHLAMYDIA SCREENOSSalem Regional Medical Centertart: 50-99-4127PUV screeningHIV SCREENING DISCUSSIONOSSalem Regional Medical Centertart: 23-95-8890Vaipdoldepm for human papillomavirusHPV VACCINE ADOL (1 - 3-dose series)OSSalem Regional Medical Centertart: 97-04-6198Zzdopmf of varicella vaccinationVaricella Vaccines (1 of 2 - 13+ 2-dose series)[facility]OM HealthcareStart: 58-95-0397Rdzxihwvrg ScreeningDepression ScreeningAtrium Health Carolinas Rehabilitation Charlottetart: 04-35-9852Bllqquc ScreeningTobacco ScreeningAtrium Health Carolinas Rehabilitation Charlottetart: 44-68-2401QXdC/Tdap/Td Vaccines (1 - Tdap)DTaP/Tdap/Td Vaccines (1 - Tdap)[facility]OM HealthcareStart: 93-07-0210KZC Vaccines (1 of 1 - Standard series) MMR Vaccines (1 of 1 - Standard series)NOM HealthcareStart: 68-95-6507Zxntnxeyk C screeningHEPATITIS C VIRUS SCREENINGOSSalem Regional Medical Centertart: 82-25-4374Fiahuuxtj for Chlamydia trachomatisGONORRHEA SCREENOSSalem Regional Medical Centertart: 07-81-5301Iinjwtt vaccinationTETANUSOSCoshocton Regional Medical Center Alanine aminotransferase [Enzymatic activity/volume] in Serum or PlasmaALT Lab Routine Hormone imbalance Swelling Ordered: 08/27/2024NO[facility] HealthcareComment on above:Ordered: 08/27/2024spartate aminotransferase [Enzymatic activity/volume] in Serum or PlasmaAST Lab Routine Hormone imbalance Swelling Ordered: 08/27/2024 [facility] HealthcareComment on above:Ordered: 08/27/2024topobium vaginae DNA [Presence] in Vaginal fluid by ABBY with probe detectionMercy Health Fairfield HospitalBacterial vaginosis associated bacterium 2 DNA [Presence] in Vaginal fluid by ABBY with probe detectionMercy Health Fairfield HospitalCBC panel - Blood by Automated countCBC Lab Routine state Ordered: 07/30/2024NO[facility] HealthcareComment on above:Ordered: 4CBC W Auto Differential panel - BloodCBC and differential Lab Routine Hormone imbalance Swelling Ordered: 08/27/2024[facility] Work Phone: comment on above:Ordered: 08/27/2024BC W Auto Differential panel - BloodCBC and differential Lab Routine Dysmenorrhea Abnormal uterine bleeding (AUB) Pelvic pain in femaleOrdered: 06/22/2025[facility] Comment on above:Ordered: 06/22/2025HLAMYDIA TRACHOMATIS (GENITO/STI)CHLAMYDIA TRACHOMATIS (GENITO/STI) Lab Routine Pelvic pain in female Ordered: 07/30/2024 [facility] HealthcareComment on above:Ordered: 07/30/2024reatinine [Mass/volume] in Serum or PlasmaCreatinine Lab Routine Hormone imbalance Swelling Ordered: 08/27/2024[facility] HealthcareComment on above:Ordered: 08/27/2024DHEA-sulfateDHEA- sulfate Lab Routine Dysmenorrhea Abnormal uterine bleeding (AUB) Pelvic pain in female Ordered: 06/22/2025[facility] HealthcareComment on above:Ordered: 06/22/2025 Follicle stimulating hormoneFollicle stimulating hormone Lab Routine Dysmenorrhea Abnormal uterine bleeding (AUB) Pelvic pain in female Ordered: 06/22/2025[facility] HealthcareComment on above:Ordered: 06/22/2025hCG, quantitative, pregnancyhCG, quantitative, Lab Routine Dysmenorrhea Abnormal uterine bleeding (AUB) Pelvic pain in female Ordered: 06/22/2025[facility] HealthcareComment on above:Ordered: 06/22/2025Hemoglobin A1c/Hemoglobin.total in BloodHemoglobin A1c Lab Routine Dysmenorrhea Abnormal uterine bleeding (AUB) Pelvic pain in female Ordered: 06/22/2025[facility] HealthcareComment on above:Ordered: 06/22/2025 Luteinizing hormoneLuteinizing hormone Lab Routine Dysmenorrhea Abnormal uterine bleeding (AUB) Pelvic pain in female Ordered: 06/22/2025[facility] HealthcareComment on above:Ordered: 06/22/2025Megasphaera sp type 1 DNA [Presence] in Vaginal fluid by ABBY with probe detectionMercy Health Fairfield HospitalNeisseria gonorrhoeae DNA [Presence] in Unspecified specimen by ABBY with probe detection Neisseria gonorrhea DNA probe, direct Lab Routine Pelvic pain in female Ordered: 07/30/2024[facility] HealthcareComment on above:Ordered: 07/30/2024atient referral [facility] Work Phone: Thyrotropin [Units/volume] in Serum or PlasmaTSH Lab Routine Hormone imbalance Swelling Ordered: 08/27/2024[facility] HealthcareComment on above:Ordered: 08/27/2024Thyrotropin [Units/volume] in Serum or PlasmaTSH Lab Routine Dysmenorrhea Abnormal uterine bleeding (AUB) Pelvic pain in female Ordered: 06/22/2025[facility] HealthcareComment on above:Ordered: 06/22/2025Thyroxine (T4) free [Mass/volume] in Serum or PlasmaT4, free Lab Routine Hormone imbalance Swelling Ordered: 08/27/2024[facility] HealthcareComment on above:Ordered: 08/27/2024 Thyroxine (T4) free [Mass/volume] in Serum or PlasmaT4, free Lab Routine Dysmenorrhea Abnormal uterine bleeding (AUB) Pelvic pain in female Ordered: 10/2024[facility] HealthcareComment on above:Ordered: 06/22/2025 Immunizations Immunization DateImmunizationNotesCare KgfkdzlfBhwopioy93-51-3376egtfzkstd virus vaccine, unspecified formulationMoi Rueda DO Work Phone: [facility] Payers DatePayer CategoryPayerPolicy [id number]-kxf14-28-2034Ccymfej Health InsuranceCARESOMERCY [facility] MEDICAID [id number] 2024Medicaid ..[id number] [id number] 12-15-0483Kqxbnizgap of Defense ( and others)[id number] Department of Defense ( and others) [id number] () Member Subscriber Plan / Payer (Effective 2023-2024) Name: Colton Medrano Relation to Subscriber: Spouse Name: LIDIA MEDRANO Date of : 1997 (Home) Address: [place] [address] Payer ID: [id number] (NAIC) Group ID: Not on file Type: Not on file Address: [address] [address] [id number] 2..1.915414.3.57[id number] 2.1.849398.3.579.[id number] 2..1.813457.3.579.2.79649-03-6498Rzxeilu4033094 2..1.812549.3.579.2.63160-44-0974Tdlggis0843959 2..1.796387.3.579.[id number] 2..1.775499.3.579.[id number] 2.16.840.1.680728.3.579.2.80287-54-1852Lrhdeuo87774329 2.16840.1.853789.3.579.2.[id number] 2.16840.1.586614.3.579.2.83[id number] 2.840.1.098381.3.57[id number] 2.16840.1.045359.3.579.2.699[id number] 2.840.1.624479.3.579.2.037[id number] 2.840.1.921083.3.579.2.279778-31-8397Wvxfezy88327347 2.840.1.052870.3.579.2.525316-88-2515Mlvxegk26832255 2.840.1.608508.3.579.2.412553-76-2312Cbfsfcm24463962 2.840.1.351238.3.579.2.707197-77-5720Sdliucz60891308 2.840.1.941702.3.579.2.697286-40-1109Zljdbsf04865505 2.840.1.675137.3.579.2.591801-53-5367Rauwuhq05878834 2.840.1.819810.3.579.2.233236-67-6036Cxqtvds87988292 2.840.1.932216.3.579.2.781781-49-0595Qrizjuj06351043 2.16840.1.296236.3.579.2.113765-94-2681Phytggv1679292 2..840.1.695180.3.579.2.144890-77-8722Yzypxdi6335916 2..840.1.738577.3.579.2.604129-71-3976Fjvwjra1795196 2..840.1.603406.3.579.2.257552-47-1712Gzvgcpn8533238 2.840.1.550435.3.579.2.770669-43-6315Eokumqsffj of Defense ( and others)16691143099-40-7564Bdjqqcjufs of Defense ( and others)[id number] Department of Defense ( and others)[id number] 2.840.1.218272.19Unknown [id number] 2..840.1.795591.3.579.2.531 Social History DateTypeDetailFacilityStart: 11-02-2023 End: 83-85-7434Xrb Assigned At BirthSelect [facility] CenterStart: 11-02-2023 End: 57-84-8566Uifxbmt smoking status NHISNever smoked tobaccoOSTwin City Hospital CenterStart: 11-02-2023 End: 12-28-8907Amohemx use and exposureSmokeless tobacco non-userOSU [facility] CenterStart: 25-28-6330Egvzkmmvd beverage intakeLifetime non-drinker (finding)[facility] CenterStart: 11-02-2023 End: 64-20-3511Xkedjue of Social functionOSU [facility] CenterStart: 60-25-8143Jsc assigned at birthNot on fileOSTwin City Hospital CenterStart: 04-95-1548Iii Assigned At [facility] CenterStart: 08-43-3685Dmcnapn smoking status NHISUnknown if ever smokedOrthoAlliance of [place] Start: 46-00-3716Jxgpjrr intakeAlcohol Use DetailsOrthoAlliance of GeorgiaStart: 26-25-8694Lthuly OrientationLesbian, lynch or homosexualOrthoAlliance of [place] Start: 63-14-7648MtjdnxwilTCYG HealthcareStart: 09-08-2024 End: 94-54-0636SolBcnybr (finding)[facility] Systemtart: 01-21-2024 End: 17-84-5251Jokaicvvm beverage intakeEx-drinker (finding)Quantum Securetart: 81-24-2203Ruvqhb the past 12 months we worried whether our food would run out before we got money to buy more.Never [employer] Procedure CodeEquipment CodeEquipment Original TextEquipment IdentifierDates1 strip by In Vitro route Daily Use in the morning prior to breakfast, 1 hour after each meal for atotal of 4times daily.[id number]: 04-24-2024 End: each by In Vitro route Daily Use to check FSBS four times daily [id number]: 04-24-2024 End: 05-24-2024 Clinical Notes 06-25-2020 to 06-22-2025 Note Date & QylgRerdDsanwrnd55-38-4152 History of Present illness Narrative* Moi Rueda [...] placenta abruption 01/03/2024 Nausea and vomiting in ([facility]) 01/03/2024 Heartburn during in first trimester ([facility]) 01/03/2024 H/O delivery, currently , first trimester ([facility]) 01/03/2024 Abdominal pain affecting ([facility]) 01/03/2024 First trimester ([facility]) 01/03/2024 Dizziness 01/03/2024 Pelvic pain in female 03/27/2024 Second trimester ([facility]) 03/27/2024 Diabetes mellitus screening 03/27/2024 24 weeks gestation of ([facility]) 04/10/2024 Prior with placenta abruption in third trimester, antepartum ([facility]) 04/10/2024 Resolved Ambulatory Problems Diagnosis Date Noted [...] nursing note reviewed. Exam conducted with a senior environmental consultant present. Vitals: Estimated body mass index is [...] drug screen and Physical Exam for shreyaove PATENT PARALEGAL. Pt verified by photo ID. documented in this [facility]03-10-2025 Evaluation note* Diagnosis Onset Date Resolution Status Admit Date Endometriosis acuteMarch 2024 10:18amEndometriosisacuteMay 2024 8:24am [facility] Work Phone: 1(602) 905-867001-20-2025 Chief complaint+Reason for visit Narrative * Chief [...] :50am Endometriosis October 27, 2024 10: 18am [facility] Work Phone: 1(447) 524-832501-20-2025 Evaluation note* Diagnosis Onset Date Resolution Status Admit Date Endometriosis acuteJanuary 2024 1:36pmGeneralized anxiety disorderacuteJanuary 2024 1:36pmObsessive compulsive disorderacuteJanuary 2024 1:36pmPTSD (post-traumatic stress disorder)acuteJanuary 2024 1:36pmTBI (traumatic brain injury)acuteJanuary 2024 1:36pmVaginal dischargeacuteJanuary 2024 1:36pmTooth abscessacuteJanuary 2024 9:50amEndometriosisacuteMarch 2024 10:18am [facility] Work Phone: 1(304) 881-154701-20-2025 Hospital Discharge instructionsAmbulatory Orders* Disability Placard Time Frame: 09/08/24, Location: Determined By Patient * Referral to Psychiatry Time Frame: 09/08/24, Location: None Selected [facility] Work Phone: 1(866) 612-709901-08-2025 History of Present illness Narrative* Shreya Laughlin - 08/27/2024 1:20 PM EST Reason for Appointment: Patient ID: Colton Medrano is a 28 y.o. female who presents for Pre-op Visit Patient presents today for Pre Op/Post Follow Up appointment. Patient is scheduled to undergo Da Rosa Elena assisted Bilateral Laparoscopic Salpingectomy on 09/26/[address] Rueda at [facility]. MEDICATIONS Current Outpatient Medications Medication Instructions Alcohol Swabs (Alcohol Prep Pad) 70 % pads 1 Pad, Topical, Daily, Use four times daily to check FSBS. aspirin 81 mg, Daily Blood Glucose Monitoring Suppl ([employer] Glucometer) w/Device kit 1 kit, Does not [...] ondansetron 4 mg disintegrating tablet - Active Gjucgyxy-Iqd-Du-FA ( 1 + IRON PO) Daily RT [...] Endometriosis OCD (obsessive compulsive disorder) (CMS/[facility]) PTSD (post-traumatic stress disorder) (CMS/[facility]) HISTORY PAST MEDICAL HISTORY SOCIAL HISTORY Past Medical History: Diagnosis Date Anxiety Depression (CMS/[facility]) Endometriosis OCD (obsessive compulsive disorder) ([facility]) PTSD (post-traumatic stress disorder) ([facility]) Social History Tobacco Use Smoking status: [...] nursing note reviewed. Exam conducted with a senior environmental consultant present. Vitals: There is no height [...] reviewed, and patient is to proceed to [facility] OR. Follow Up: Patient is to follow up between 1-2 weeks post op to assess proper healing and recovery from procedure. Documented by MARY Paulino on behalf of: Moi Rueda DO documented in this encounterCox NorthVwxshfclvv82-73-8060 History of Present illness Narrative* Noris Stout [...] ondansetron 4 mg disintegrating tablet - Active Zbpcgvbv-Sby-Ld-FA ( 1 + IRON PO) Daily RT [...] Past Medical History: Diagnosis Date Anxiety Depression ([facility]) Endometriosis OCD (obsessive compulsive disorder) ([facility]) PTSD (post-traumatic stress disorder) ([facility]) HISTORY PAST MEDICAL HISTORY SOCIAL HISTORY Past Medical History: Diagnosis Date Anxiety Depression ([facility]) Endometriosis OCD (obsessive compulsive disorder) ([facility]) PTSD (post-traumatic stress disorder) ([facility]) Social History Tobacco Use Smoking status: [...] nursing note reviewed. Exam conducted with a senior environmental consultant present. Vitals: There is no height [...] of: Moi Rueda DO documented in this encounterCox NorthWjnxqkwyme29-71-2508 Chief complaint+Reason for visit Narrative* Chief Complaint Admit Date Med f/u July 16, 2024 12:47pm referral for psychologist September 08, 2024 1:36pm Reason for Visit Admit Date Generalized anxiety disorder July 162023 12:47pm Endometriosis September 08, 2024 1 :36pm Generalized anxiety disorder August 1:36pm Obsessive compulsive disorder September 082024 1:36pm PTSD (post-traumatic stress disorder) [facility] 2024 1:36pm TBI (traumatic brain injury) August 1:36pm Vaginal discharge September 08, 2024 1 :36pm [facility] Work Phone: 1(651) 640-341811-27-2024 Chief complaint+Reason for visit Narrative * Chief Complaint Admit Date Med f/u July 16, 2024 12:47pm referral for psychologist September 08, 2024 1:36pm Vaginal Discharge September 08, 2024 3 :20pm Reason for Visit Admit Date Generalized anxiety disorder July 162023 12:47pm Endometriosis September 08, 2024 1 :36pm Generalized anxiety disorder August 1:36pm Obsessive compulsive disorder September 082024 1:36pm PTSD (post-traumatic stress disorder) [facility] 2024 1:36pm TBI (traumatic brain injury) August 1:36pm Vaginal discharge September 08, 2024 1 :36pm [facility] Work Phone: 1(723) 577-659211-27-2024 Chief complaint+Reason for visit Narrative * Chief [...] September 082024 1:36pm PTSD (post-traumatic stress disorder) [facility] 2024 1:36pm TBI (traumatic brain injury) August 1:36pm Vaginal discharge September 08, 2024 1 :36pm [facility] Work Phone: 1(166) 225-731811-27-2024 Evaluation note* Diagnosis Onset Date Resolution Status Admit Date Generalized anxiety disorder acuteNovember 2023 12:47pmEndometriosisacuteJanuary 2024 1:36pm Generalized anxiety disorderacuteAuguary 2024 1:36pmObsessive compulsive disorderacuteJanuary 2024 1:36pmPTSD (post-traumatic stress disorder)acute September 08, 2024 1:36pmTBI (traumatic brain injury)acuteSeptember 08, 2024 1:36pmVaginal dischargeacuteSeptember 08, 2024 1:36pm [facility] Work Phone: 1(391) 585-814111-11-2024 History of Present illness Narrative* Zakiya Traylor [...] ondansetron 4 mg disintegrating tablet - Active Srtfihou-Bpa-Lb-FA ( 1 + IRON PO) Daily RT [...] Past Medical History: Diagnosis Date Anxiety Depression ([facility]/HCC) Endometriosis OCD (obsessive compulsive disorder) ([facility]/HCC) PTSD (post-traumatic stress disorder) ([facility]/HCC) HISTORY PAST MEDICAL HISTORY SOCIAL HISTORY Past Medical History: Diagnosis Date Anxiety Depression (CMS/HCC) Endometriosis OCD (obsessive compulsive disorder) ([facility]/HCC) PTSD (post-traumatic stress disorder) ([facility]) Social History Tobacco Use Smoking status: [...] nursing note reviewed. Exam conducted with a senior environmental consultant present. Vitals: There is no height [...] prior to leaving office and nursing called [facility] to confirm patient is on the books. Spoke with Ged Preparation Teacher who will reach out to patients insurance company as patient voiced her employer is inquiring as to when patient is going to return to work . Patient to return to clinic for post appointment. Documented by Zakiya Traylor LPN on behalf of: Moi Rueda DO documented in this encounterCox [id number] History of Present illness Narrative* Zakiya Traylor [...] ondansetron 4 mg disintegrating tablet - Active Hvgmbxlq-Xed-Ei-FA ( 1 + IRON PO) Daily RT [...] Past Medical History: Diagnosis Date Anxiety Depression ([facility]) Endometriosis OCD (obsessive compulsive disorder) ([facility]) PTSD (post-traumatic stress disorder) ([facility]) HISTORY PAST MEDICAL HISTORY SOCIAL HISTORY Past Medical History: Diagnosis Date Anxiety Depression ([facility]) Endometriosis OCD (obsessive compulsive disorder) ([facility]) PTSD (post-traumatic stress disorder) ([facility]) Social History Tobacco Use Smoking status: [...] nursing note reviewed. Exam conducted with a senior environmental consultant present. Vitals: There is no height [...] having IOL on 07/06/24 @ 0000. Called [facility] FB and patient is on the [...] of: Moi Rueda DO documented in this encounterCox [id number] History of Present illness Narrative* Zakiya Traylor [...] ondansetron 4 mg disintegrating tablet - Active Dmmeutqb-Jks-Hw-FA ( 1 + IRON PO) Daily RT [...] Depression (CMS/HCC) Endometriosis OCD (obsessive compulsive disorder) ([facility]) PTSD (post-traumatic stress disorder) ([facility]) HISTORY PAST MEDICAL HISTORY SOCIAL HISTORY Past Medical History: Diagnosis Date Anxiety Depression (CMS/HCC) Endometriosis OCD (obsessive compulsive disorder) (CMS/HCC) PTSD (post-traumatic stress disorder) (CMS/[facility]) Social History Tobacco Use Smoking status: [...] nursing note reviewed. Exam conducted with a senior environmental consultant present. Vitals: There is no height [...] of: Moi Rueda DO documented in this encounterCox NorthAjybxlqgdh69-55-5793 History of Present illness Narrative* Zakiya Traylor [...] ondansetron 4 mg disintegrating tablet - Active Lxyiwkaw-Xbl-Hd-FA ( 1 + IRON PO) Oral, Daily [...] compulsive disorder) (CMS/HCC) PTSD (post-traumatic stress disorder) ([facility]) Social History Tobacco Use Smoking status: [...] nursing note reviewed. Exam conducted with a senior environmental consultant present. Vitals: There is no height [...] of: Moi Rueda DO documented in this encounterCox [id number] History of Present illness Narrative* Zakiya Kymberly, PATENT PARALEGAL - 05/08/2024 11:10 AM EDT Reason for Appointment: Patient ID: Colton Medrano is a 28 y.o. female who presents for Routine Visit Patient presents today for Return OB appointment. MEDICATIONS Current Outpatient Medications Medication Instructions Alcohol Swabs (Alcohol Prep Pad) 70 % pads 1 Pad, Topical, Daily, Use four times daily to check FSBS. aspirin 81 mg, Oral, Daily Blood Glucose Monitoring Suppl ([employer] Glucometer) w/Device kit 1 kit, Does not [...] before breakfast, Do not crush or chew. Gpneowow-Bpl-Dl-FA ( 1 + IRON PO) Oral, Daily [...] Past Medical History: Diagnosis Date Anxiety Depression ([facility]/HCC) Endometriosis OCD (obsessive compulsive disorder) ([facility]/HCC) PTSD (post-traumatic stress disorder) ([facility]/HCC) HISTORY PAST MEDICAL HISTORY SOCIAL HISTORY Past Medical History: Diagnosis Date Anxiety Depression (CMS/HCC) Endometriosis OCD (obsessive compulsive disorder) ([facility]/HCC) PTSD (post-traumatic stress disorder) ([facility]) Social History Tobacco Use Smoking status: [...] nursing note reviewed. Exam conducted with a senior environmental consultant present. Vitals: There is no height [...] of: Moi Rueda DO documented in this encounterCox [id number] History of Present illness Narrative* Zakiya Traylor [...] mg, Oral, Daily Blood Glucose Monitoring Suppl ([employer] Glucometer) w/Device kit 1 kit, Does not [...] before breakfast, Do not crush or chew. Xqqsqswk-Xfx-Md-FA ( 1 + IRON PO) Oral, Daily [...] Past Medical History: Diagnosis Date Anxiety Depression ([facility]) Endometriosis OCD (obsessive compulsive disorder) ([facility]) PTSD (post-traumatic stress disorder) ([facility]) HISTORY PAST MEDICAL HISTORY SOCIAL HISTORY Past Medical History: Diagnosis Date Anxiety Depression ([facility]) Endometriosis OCD (obsessive compulsive disorder) ([facility]) PTSD (post-traumatic stress disorder) ([facility]) Social History Tobacco Use Smoking status: [...] nursing note reviewed. Exam conducted with a senior environmental consultant present. Vitals: There is no height [...] Glucose Test) strip Blood Glucose Monitoring Suppl (D-Ground[employer] Glucometer) w/Device kit Patient presents today for [...] of: Moi Rueda DO documented in this encounterCox [id number] History of Present illness Narrative* Zakiya Traylor [...] before breakfast, Do not crush or chew. Rhqlyjyb-Wvw-Kh-FA ( 1 + IRON PO) Oral, Daily [...] Depression (CMS/HCC) Endometriosis OCD (obsessive compulsive disorder) ([facility]/HCC) PTSD (post-traumatic stress disorder) ([facility]) HISTORY PAST MEDICAL HISTORY SOCIAL HISTORY Past Medical History: Diagnosis Date Anxiety Depression (CMS/HCC) Endometriosis OCD (obsessive compulsive disorder) ([facility]) PTSD (post-traumatic stress disorder) ([facility]) Social History Tobacco Use Smoking status: [...] nursing note reviewed. Exam conducted with a senior environmental consultant present. Vitals: There is no height [...] of: Moi Rueda DO documented in this encounterCox [id number] History of Present illness Narrative* Tammy Horne [...] free DNA she showed me her report ([place]) ? POTS - near syncopal episode 6 [...] on 01/21/2024 Not In System Ref Prov kz003-cktl-mmtxf acid ( 19) 29 mg iron- 1 [...] be risk factor for Down syndrome. Per [facility] recommendations for people with negative serum [...] recommended. If low-lying placenta persist delivery between 08l1c-72d2r via (of note not all low-lying placenta [...] Tammy Horne MD, FACOG (she/hers) Maternal- Medicine [facility] [address] [facility] [address] [place] [address] This document was created with [employer] technology. Though I make every effort to review the dictation as it is transcribed, on occasion the spoken word can be misinterpreted by the technology leading to inappropriate words, phrases, or sentences. This note is addressed to the requesting provider as a consultation for clinical guidance. Specificmedical abbreviations are occasionally used and those are generally approved by the [place]?Board of?Obstetrics and?Gynecology?as well as?Jessica s abbreviations. The above plan of care was based solely on the diagnoses for which a consultation was requested. ?More frequent testing may be indicated based on her other medical/obstetrical conditions. The management of other or medical conditions is beyond the scope of requested consultation and will c ontinue to be followed by the primary manager development or primary care provider. Note to patient: [...] provider today? HAS QUESTIONS. [facility] History of Present illness Narrative* Marisol [...] 01/03/24 Have you been seen here at [facility] in a previous ? no Recent ER visits or hospitalizations? no Bring blood sugar log or meter with you today? (Please bring them with you for every visit at [facility]) n/a Traveled outside the country in the [...] was 63 minutes. 45 minutes were direct vtya-vz-qbmg for counseling and coordination of care during visits itself. An additional 5 minutes or for same day preparation to see the patient. Another 13 minutes were needed to prepare visit report or otherwise complete encounter Thank you for sending this patient. Bari Zepeda MD Maternal Medicine Professor, [facility] [phone] Office [phone] Personal Cell Phone Office Note: Prior history of (reportedly from abruption) Chart referenced to history of anxiety and or posttraumatic stress disorder Personal history of endometriosis Nausea and or vomiting in (improved) Current Outpatient Medications on File Prior to Visit Medication Sig magnesium (MAGTAB) 84 mg tablet extended release CR tablet Take 1 tablet (84 mg total) by mouth in the morning. va771-eyki-sgcpu acid ( 19) 29 mg iron- 1 [...] In the patient's next , she saw [facility] providers. She reportedly saw Maternal- medicine team in [place]. The patient can not recall if she [...] asked the patient to give permission to [facility] via [employer] so [facility] records from most recent could be reviewed. Unlessother information becomes available however, this patient does not appear to be a candidate for serial cervical length screening. At the present time, 17 hydroxy progesterone secondary prevention is no longer typically recommended in any patient. The patient believes she can determinefor sure which [facility] practice saw her and will obtain records [...] history. Information either through [facility] and or [facility]. Recommendations (Plan): First history of seems [...] primary OB provider team. documented in this encounterMercy Health St. Joseph Warren HospitalZigswitch [id number] Evaluation + Plan note Diagnostic Tests Pending * T3 Free 11/19/23 * Thyroid Perox.tpo Ab 11/19/23 * TgAb+Thyroglobulin,CHING or ARLEN 11/19/23 [facility]03-15-2024 History of Present illness Narrative* Cheri Stephen MD - 11/02/2023 2:30 PM EDT GYNECOLOGY CONSULT NOTE REASON FOR VISIT Endometriosis Pelvic pain HISTORY OF PRESENT ILLNESS Ms. Mitchell is a 27 y.o. (NSVDx2) who presents for consultation regarding endometriosis, pelvic pain. Records review: Moved back from [place] to [place] (2021) First diagnosed in 2017 [...] tried to get her medical records in [place], but they would not send them. She [...] She had a women's health doctor in [facility] who told her she had stage IV endometriosis. She is no longer on the progesterone. Has tried vaginal valium does not help Her 2 previous pregnancies were with a previous partner. She and her are trying for anotherpregnancy now. [place] in [place] Partner has not had a SA yet [...] the patient today. 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 Risk assessment was [...] Pt to call with any worsening symptoms. [employer] Other 12-21-2023 Evaluation note* Encounter Date Diagnosis Assessment Notes Treatment Notes Treatment Clinical Notes Jul, Generalized anxiety disorder (IC D-10 - F41.1) Jul,Endometriosis (ICD-10 - N80.9) [employer] Other 12-15-2023 Evaluation note* Encounter Date [...] intractable, unspecified migraine type (ICD-10 - G43.909) [employer] Other 11-06-2020 NoteOPERATIVE NOTE OPERATION DATE: 06-25-20 ANESTHETIC:General. ICE HOUSE SUPERVISOR:None. PREOPERATIVE DIAGNOSIS: 1. Dyspareunia. 2. Right [...] lap, and needle counts were correct x2. [facility] Signed and Approved by: DR MOI RUEDA . 07/30/2020 13:02:00[facility] note* Clinical Note Date No Information [facility] Work Phone: Discharge summary* Clinical Note Date No Information [facility] Work Phone: Evaluation noteNo InformationN[facility]delet [facility] Other Evaluation note* Diagnosis Endometriosis- Primary Endometriosis, site unspecified Pelvic pain Unspecified symptom associated with female genital organs Myalgia of pelvic floor Dysmenorrhea Dyspareunia in female Nausea and vomiting, unspecified vomiting type Bladder pain Other symptoms involving urinary system Anxiety Anxiety state, unspecified [facility] Diagnosis Onset Date Resolution Status Depression acuteGeneralized anxiety disorderacuteObsessive compulsive disorderacutePTSD (post-traumatic stress disorder)acuteDepressionacuteEndometriosisacute Generalized anxiety disorderacuteObsessive compulsive disorderacutePTSD (post- traumatic stress disorder)acuteTBI (traumatic brain injury)acute [facility] Work Phone: Evaluation note* Type Assessment Date No Information [facility] Work Phone: Evaluation note* Diagnosis 32 weeks [...] iron deficiency anemia documented in this encounter [facility] HealthcareEvaluation note* Diagnosis Third trimester state, incidental 30 weeks gestation of H/O delivery, currently , first trimester Abdominal pain affecting Pelvic pain in female Unspecified symptom associated with female genital organs Prior with placenta abruption in third trimester, antepartum Other insomnia documented in this encounter [facility] HealthcareEvaluation note* Diagnosis Pre-op examination Request for sterilization Hormone imbalance Swelling Localized superficial swelling, mass, or lump Mood disorder (CMS/HCC) Unspecified episodic mood disorder documented in this encounter [facility]* Diagnosis History of delivery, currently in first trimester- Primary Prior with placenta abruption in first trimester, antepartum [facility] Diagnosis 18 weeks gestation of - Primary Echogenic intracardiac focus of fetus on ultrasound Placental abnormality in second trimester History of placenta abruption History of delivery, currently with history of pre-term labor documented [facility]* Diagnosis Encounter for drug screening documented in this encounter [facility]* Diagnosis Dysmenorrhea Abnormal uterine bleeding (AUB) Bleeding disorder Unspecified hemorrhagic conditions PCOS (polycystic ovarian syndrome) Polycystic ovaries Pelvic pain in female Unspecified symptom associated with female genital organs documented in this encounter [facility] HealthcareEvaluation note* Diagnosis Onset Date Resolution Status Admit Date Endometriosis acuteNovember 2024 10:49am [facility] Work Phone: History and physical note* Clinical Note Date No Information [facility] Work Phone: History general Narrative - Reported* Type Description Date Medical History Anxiety Medical HistoryStage 4 EndometriosisMedical HistoryDepression with manic episodesMedical HistoryOCDMedical HistoryPTSDMedical HistoryTBISurgical History Endometriosis surgery [id number] HistoryWisdom teethSurgical HistoryInjections in [facility] [employer] Other History of Present illness Narrative* Encounter Date Complaint History Of Prese nt Illness No Information [facility] Work Phone: Hospital course Narrative No data available for this section [facility] No data available for this section [facility] instructionsAmbulatory Orders* Referral to CHIEF COMMUNICATIONS OFFICER Time Frame: 10/27/24, Location: None [facility] Work Phone: Hospital Discharge instructionsAmbulatory Orders* Referral to CHIEF COMMUNICATIONS OFFICER Time Frame: 12/30/24, Location: None [facility] Work Phone: Instructions* Date Instruction Additional Infor mation No Information [facility] Work Phone: InstructionsNot on filedocumented in this encounter [facility]ructionsNot on filedocumented in this encounter [facility]* Attachments The following attachments cannot be sent through Care Everywhere. * Preeclampsia (Armenian) documented in this encounter[facility] SystemInstructionsNot on file documented in this [facility] System[facility] note No data available for this section [facility]* Clinical Note Date No Information [facility] Work Phone: Reason for referral (narrative)* Consultation (Routine) - New RequestSpecialtyDiagnoses / ProceduresReferred By Contact Referred To ContactPsychology Diagnoses Pelvic pain Anxiety Cheri Stephen MD [address] [place] [address] Oksana Luu, PhD [address] [place] [address] Referral IDStatusReasonStart DateExpiration DateVisits RequestedVisits [id number] Request/ * Consultation (Routine) - New RequestSpecialtyDiagnoses / ProceduresReferred By ContactReferred To ContactIntegrative Medicine Diagnoses Pelvic pain Nausea and vomiting, unspecified vomiting type Cheri Stephen MD [address] [place] [address] Referral IDStatusReasonStart DateExpiration DateVisits RequestedVisits [id number] Request * Consultation (Routine) - New RequestSpecialtyDiagnoses / ProceduresReferred By ContactReferred To ContactGynecology Diagnoses Pelvic pain Myalgia of pelvic floor Bladder pain Cheri Stephen MD [address] [place] [address] Referral IDStatusReasonStart DateExpiration DateVisits RequestedVisits [id number] Request * MRI/CAT Scan (Routine) - New RequestSpecialtyDiagnoses / ProceduresReferred By ContactReferred To Contact Diagnoses Endometriosis Pelvic pain Procedures MRI PELVIS WITH AND WITHOUT CONTRAST [place] [facility], PELVIS, COMBO Cheri Stephen MD [address] [place] [address] Referral IDStatusReasonStart DateExpiration DateVisits RequestedVisits [id number] Request/ [facility] ([facility]arrative)* Reason For Referral No Information [facility] Work Phone: Reason for referral (narrative)No reason for referral information [facility] Work Phone: Summary Purpose Family History Relationship [...] Diagnosis 1 Endometriosis (N80.9 ) Referral Organization [facility] angel Referring Provider First Name Lucila Referring Provider Last Name Melquiades Referring Provider Specialty Nurse Pract itioner Referred Organization [facility] Referred Provider Jena Suresh Referred Address ,[place], [place],[address] Referred Provider Specialty OB - Gynecol ogy [...] unspecified migraine type (G43.909) Referral Organization [facility] [email or web address] [facility] Referring Provider First Name Lucila Referring Provider Last Name [facility] Referring Provider Specialty Nurse Pract itioner Referred Organization [facility] Referred Provider Herbie Arroyo Referred Address [address] [place], [place],[address] Referred Provider Specialty Neurology Referral Priority Routine [...] 1 Endometriosis (N80.9 ) Referral Organization [facility] [employer] lin Referring Provider First Name Lucila Referring Provider Last Name Ellyrbacher Referring Provider Specialty Nurse Pract itioner Referred Organization [facility] Referred Address [address] [place], [place],[address] Referred Provider Specialty Endocrinolog y Referral Priority [...] section and content) DATE CREATED AUTHOR 12/15/2020 [facility] DATE CREATED AUTHOR AUTHOR'S ORGANIZ ATION 11/03/2023 [facility] DATE CREATED AUTHOR AUTHOR'S ORGANIZ ATION 11/20/2023 [facility] DATE CREATED AUTHOR AUTHOR'S ORGANIZ ATION 12/15/2023 [facility] DATE CREATED AUTHOR AUTHOR'S ORGANIZ ATION 04/01/2024 [facility] DATE CREATED AUTHOR AUTHOR'S ORGANIZ ATION 09/12/2024 [facility] DATE CREATED AUTHOR AUTHOR'S ORGANIZ ATION 06/23/2025 [facility] EPIC REASON FOR VISIT (unrecogniz ed section and content) ReasonCommentsConsultPt diagnosis with Endometriosis in 2018. Patient desire .SpecialtyDiagnoses / ProceduresReferred By ContactReferred To Contact CHIEF COMMUNICATIONS OFFICER Diagnoses Endometriosis Lucila Arnett CNP [address] [place] [address] [facility] [address] [place] [address] Referral IDStatusReasonStart DateExpiration DateVisits RequestedVisits [id number] [id number] VisitReasonCommentsPelvic PainReasonCommentsPre-op VisitReasonCommentshx placenta abruption/ PTDReasonCommentsHX DELIVERY@ 32 WEEKS PLACENTAL ABRUPTION.ReasonCommentsConsult Care Teams (unrecognized sec tion and content) Team Status: Active Member Role Status Dates Lucila Arnett APRN DERRICK CAR OPERATOR-C Primary Care Provider Active Team Status: Inactive Member Role Status Dates Lucila Arnett APRN DERRICK CAR OPERATORJohn Attending Provider Act vinicius Start: September 14, 2023 End: September 14, 2023 Team Status: Inactive Member Role Status Dates Lucila Arnett APRN DERRICK CAR OPERATOR-C Primary Care Provider, Attending Provider Active Start: October 17, 2023 End: October 17, 2023 Team Status: Inactive Member Role Status Dates Lucila Arnett APRN DERRICK CAR OPERATOR-Jazmine Primary Care Provider, Attending Provider Active Start: November 14, 2023 End: November 14, 2023 Name Effective Dates (start - stop) Status Members No Information Team MemberRelationshipSpecialtyStart DateEnd Date Lucila Arnett NP [address] [place] [address] PCP - GeneralFamily Medicine11/11/23Team MemberRelationshipSpecialtyStart DateEnd Date Lucila Arnett NP [address] [place] [address] PCP - GeneralFamily Medicine11/11/23Team MemberRelationshipSpecialtyStart DateEnd Date Lucila Arnett NP [address] [place] [address] PCP - GeneralFamily Medicine11/11/23Team MemberRelationshipSpecialtyStart DateEnd Date Lucila Arnett NP [address] [place] [address] PCP - GeneralFamily Medicine11/11/23Team MemberRelationshipSpecialtyStart DateEnd Date Lucila Arnett NP [address] [place] [address] PCP - GeneralFamily Medicine11/11/23Team MemberRelationshipSpecialtyStart DateEnd Date Lucila Arnett NP [address] [facility] [place] [address] PCP - GeneralFamily Medicine11/11/23Team MemberRelationshipSpecialtyStart DateEnd Date Lucila Arnett NP [address] [facility] [place] [address] PCP - GeneralFamily Medicine11/11/23Team MemberRelationshipSpecialtyStart DateEnd Date Lucila Arnett NP [address] [facility] [place] [address] PCP - GeneralFamily Medicine11/11/23Team MemberRelationshipSpecialtyStart DateEnd Date Lucila Arnett NP [address] [facility] [place] [address] PCP - GeneralFamily Medicine11/11/23Team MemberRelationshipSpecialtyStart DateEnd Date Lucila Arnett NP [address] [facility] [place] [address] PCP - GeneralFamily Medicine11/11/23Team MemberRelationshipSpecialtyStart DateEnd Date Lucila Arnett NP [address] [facility] [place] [address] PCP - GeneralFamily Medicine11/11/23Team MemberRelationshipSpecialtyStart DateEnd Date Lucila Arnett NP [address] [facility] [place] [address] PCP - GeneralFamily Medicine11/11/23Team MemberRelationshipSpecialtyStart DateEnd Date Melquiades Lucila Fay DERRICK CAR OPERATOR [address] [facility] [place] [place] [address] PCP - [facility]11/11/23Team MemberRelationshipSpecialtyStart DateEnd Date StevechanelTawny foleyLucila A, DERRICK CAR OPERATOR [address] [facility] [place] [address] PCP - [facility]11/11/23 Team Status: Active Member Role Status Dates Lucila Arnett APRN DERRICK CAR OPERATOR-C Primary Care Provider Active Start: June Moi Marybeth , DOAttending ProviderActiveStart: June 23, 2024 Team Status: Active Member Role Status Dates Lucila Arnett APRN DERRICK CAR OPERATOR-C Primary Care Provider Active Start: July 062023 Moi Marybeth , DOAttending ProviderActiveStart: July 06, 2024 Team Status: Active Member Role Status Dates Lucila Arnett APRN DERRICK CAR OPERATOR-C Primary Care Provider Active Start: July 072023 Moi Marybeth , DOAttending ProviderActiveStart: July 07, 2024 Team Status: Inactive Member Role Status Dates Lucila Arnett APRN DERRICK CAR OPERATOR-C Primary Care Provider, Attending Provider Active Start: July 16, 2024 End: July 16, 2024 Team Status: Active Member Role Status Dates Lucila Arnett APRN DERRICK CAR OPERATOR-C Primary Care Provider Active Start: August 012023 Moi Marybeth , DOAttending ProviderActiveStart: August 01, 2024 Team Status: Active Member Role Status Dates Lucila Arnett APRN DERRICK CAR OPERATOR-C Primary Care Provider Active Start: August Moi Marybeth , DOAttending ProviderActiveStart: August 29, 2024 Team Status: Inactive Member Role Status Dates Lucila Arnett APRN DERRICK CAR OPERATOR-C Primary Care Provider, Attending Provider Active Start: September 08, 2024 End: September 08, 2024 Team Status: Inactive Member Role Status Dates Lucila Arnett APRN DERRICK CAR OPERATOR-C Primary Care Provider, Attending Provider Active Start: September 12, 2024 End: September 12, 2024 Team Status: Inactive Member Role Status Dates Lucila Arnett APRN DERRICK CAR OPERATOR-C Primary Care Provider, Attending Provider Active Start: October 27, 2024 End: October 27, 2024 Team Status: Inactive Member Role Status Dates Lucila Arnett APRN DERRICK CAR OPERATOR-C Primary Care Provider, Attending Provider Active Start: December 30, 2024 End: December 30, 2024Team MemberRelationshipSpecialtyStart DateEnd Date Lucila Arnett NP [address] [place] [address] PCP - Generalmily Medicine11/11/23 Moi Rueda, [address] [place], [place] [id number] PCP - [facility]08/20/24Team MemberRelationshipSpecialtyStart DateEnd Date Lucila Arnett NP [address] [place] [address] PCP - Generalmi Medicine11/11/23 Moi Rueda, [address] [place] [address] [facility] CenterTeam MemberRelationshipSpecialtyStart DateEnd Date Lucila Arnett NP [address] [place] [address] [facility] - [facility]11/11/23 Moi Rueda, [address] [place] [address] [place] [address] PCP - [facility] CenterTeam MemberRelationshipSpecialtyStart DateEnd Date Lucila Arnett NP [address] [facility] [place] [address] PCP - GeneralFamily Medicine11/11/23 Moi Rueda, DO [address] [place] [address] [place] [address] PCP - [facility]Team MemberRelationshipSpecialtyStart DateEnd Date Lucila Arnett NP [address] [facility] [place] [address] PCP - GeneralFamily Medicine11/11/23 Moi Rueda, DO [address] [place] [address] [place] [address] PCP - [facility] CenterTeam MemberRelationshipSpecialtyStart DateEnd Date Lucila Arnett NP [address] [facility] [place] [address] PCP - GeneralFamily Medicine11/11/23Team MemberRelationshipSpecialtyStart DateEnd Date Lucila Arnett NP [address] [facility] [place] [address] PCP - GeneralFamily Medicine11/11/23 Team Status: Active Member Role/Relationship Status Dates Lucila Arnett APRN NP-C Primary Care Provider Active Team Status: Inactive Member Role/Relationship Status Dates Lucila REAL ArnettC Primary Care Provider Active Start: June End: June 24, 2025Randelltheresa Arnett APRN DERRICK CAR OPERATOR-CAttending ProviderActive Start: June 24, 2025 End: [...] BE BASED ON THE PRIMARY CLINICAL RECORDS. [facility] [employer] [facility]. provides no warranty or guarantee of the accuracy or completeness of information in this document.
== END 2025-07-24 13:04 | disposition home or self-care (01) ==
LOC: LAB 13:03
PROVIDERS: PCP Nurse Practitioner Family; Visit Provider Obstetrics & Gynecology
DX: N94.6 Dysmenorrhea, unspecified (principal); N93.9 Abnormal uterine and vaginal bleeding, unspecified; R10.20 Pelvic and perineal pain unspecified side
CPT/HCPCS: 36415; 82626